=== PATIENT | male | born 1955 | race Caucasian/White ===

== ENCOUNTER 2016-09-02 11:31 | Inpatient (IN) | payer OTHER ==
[~2016-09-02] VITALS: Ht 182.9 cm; Wt 76.8 kg
[~2016-09-02 11:31] MED LIST: FLAG500T PO; GLIP5 PO; LEVA750T PO; LISI10 PO; PANT40IN3 PO
[2016-09-02 11:32] VITALS: BP 147/74; PULSE 93; RESP 17; TEMP 97.6; O2SAT 99
--- NOTE | 2016-09-02 13:17 | PD ---
HPI Chief Complaint: Abdominal Pain Time Seen by Provider: 13:12 Travel History International Travel<30 days: No Contact w/Intl Traveler<30days: No Traveled to known affect area: No History of Present Illness HPI 61-year-old male presents the emergency department with several day history of gradually increasing left lower quadrant pain and tenderness. Patient denies vomiting but has had nausea and he states he's been coughing up large amount of phlegm in the last couple days. Patient has no history of diverticulitis or bowel disease in the past. Patient is a long-term heavy smoker. Patient states he drinks every day but denies heavy drinking history. Patient states he has been eating, and has been moving his bowels. He denies diarrhea. Patient denies urinary symptoms or history of kidney stones. Patient has had chills but no fever. He denies chest pain or shortness of breath other than his normal baseline. Patient has a history of MRSA and is allergic to penicillin. PFSH Past Medical History Arthritis: No Asthma: Yes Autoimmune Disease: No Blood Disorders: No Anxiety: No Depression: No Heart Rhythm Problems: No Cancer: No Cardiovascular Problems: Yes (HTN ) High Cholesterol: Yes Chemotherapy: No Chest Pain: No Congestive Heart Failure: No COPD: Yes Cerebrovascular Accident: No Diabetes: Yes (GLIPIZIDE) Diminished Hearing: No Endocrine: Yes Gastrointestinal Disorders: Yes GERD: Yes Genitourinary: No Headaches: Yes Hiatal Hernia: No Hypertension: Yes Immune Disorder: No Implanted Vascular Access Dvce: Yes Kidney Stones: No Musculoskeletal: No Neurologic: No Psychiatric: No Reproductive: No Respiratory: Yes Immunizations Current: Yes Migraines: No Pancreatitis: Yes Pneumonia: Yes Radiation Therapy: No Renal Failure: No Seizures: No Sickle Cell Disease: No Sleep Apnea: No Thyroid Disease: No Ulcer: No Past Surgical History Abdominal Surgery: Yes ("STENT IN SPLEEN") AICD: No Arteriovenous Shunt: No Body Medical Devices: "STENT IN SPLEEN" Cardiac Surgery: No Ear Surgery: No Endocrine Surgery: No Eye Surgery: No Genitourinary Surgery: No Gynecologic Surgery: No Insulin Pump: No Joint Replacement: No Neurologic Surgery: No Oral Surgery: No Pacemaker: No Thoracic Surgery: No Other Surgery: Yes (BACK SURGERY 25 YEARS AGO) Social History Alcohol Use: Yes (3-4 DRINKS/DAY) Tobacco Use: Yes (10 CIGS/DAY) Substance Use: No Allergies-Medications (Allergen,Severity, Reaction): Coded Allergies: Penicillin (Verified Allergy, Severe, SWELLING, 09/02/16) *MDRO Multi-Drug Resistant Organism (Verified Adverse Reaction, Unknown, ) Hx MRSA Sputum 2006, Wounds 2003 MRSA PCR Screen negative 11/25/14 & 09/10/15. Cleared per Infection Control. Patient does not require isolation for hx of MRSA prior to 09/10/15. Reported Meds & Prescriptions Reported Meds & Active Scripts Active Reported Lisinopril 10 Mg Tab 10 Mg PO DAILY Glipizide 10 Mg Tab 10 Mg PO DAILY Take 30 minutes before a meal Review of Systems Except as stated in HPI: all other systems reviewed are Neg General / Constitutional: Positive: Chills, No: Fever Eyes: No: Visual changes HENT: No: Headaches Cardiovascular: No: Chest Pain or Discomfort Respiratory: Positive: Cough (chronic.), No: Shortness of Breath, Hemoptysis, Night Sweats, Pleuritic Pain Gastrointestinal: Positive: Nausea, Abdominal Pain (sharp left lower quadrant pain.), No: Vomiting, Diarrhea, Hematemesis, Hematochezia, Constipation, Loss of Appetite Genitourinary: No: Dysuria Musculoskeletal: No: Pain Skin: No Rash Neurologic: No: Weakness Psychiatric: No: Depression Endocrine: No: Polydipsia Hematologic/Lymphatic: No: Easy Bruising Physical Exam Narrative GENERAL: Patient appears stable and in mild to moderate pain but not septic. SKIN: Warm and dry. Normal color. Normal turgor. HEAD: Atraumatic. Normocephalic. EYES: Pupils equal and round. No scleral icterus. No injection or drainage. ENT: No nasal bleeding or discharge. Mucous membranes pink and moist. Pharynx is normal. Airway is patent. NECK: Trachea midline. Supple and nontender. CARDIOVASCULAR: Regular rate and rhythm. RESPIRATORY: No accessory muscle use. Clear to auscultation. Breath sounds equal bilaterally. GASTROINTESTINAL: Abdomen soft, patient has very specific tenderness in the left lower quadrant with guarding and rebound, nondistended. No CVA tenderness. Patient has enlarged liver and spleen by palpation. MUSCULOSKELETAL: Extremities with moderate clubbing from long cigarette abuse, no cyanosis, or edema. No obvious deformities. NEUROLOGICAL: Awake and alert. No obvious cranial nerve deficits. Motor grossly within normal limits. Five out of 5 muscle strength in the arms and legs. Normal speech. PSYCHIATRIC: Appropriate mood and affect; insight and judgment normal. Data Data Last Documented VS Vital Signs Date Time Temp Pulse Resp B/P Pulse Ox O2 Delivery O2 Flow Rate FiO2 09/02/16 15:35 18 96 Room Air 09/02/16 15:01 97.8 84 190/81 Orders Complete Blood Count With Diff (09/02/16 13:17) Comprehensive Metabolic Panel (09/02/16 13:17) Lipase (09/02/16 13:17) Lactic Acid (09/02/16 13:17) Prothrombin Time / Inr (Pt) (09/02/16 13:17) Act Partial Throm Time (Ptt) (09/02/16 13:17) Urinalysis - C+S If Indicated (09/02/16 13:17) Ct Abd/Pel W Iv Contrast(Rout) (09/02/16 13:17) NPO (09/02/16 13:17) Chest, Single Ap (09/02/16 13:17) Acetamin-Hydrocod 325-5 Mg ([place] 5-325 (09/02/16 13:30) Ondansetron Odt (Zofran Odt) (09/02/16 13:30) Oral Contrast - Adult (09/02/16 13:25) Ketorolac Inj (Toradol Inj) (09/02/16 13:45) Diatrizoate Liq ( [place]astro[place] Liq) (09/02/16 13:35) Ondansetron Inj (Zofran Inj) (09/02/16 15:15) Morphine Inj (Morphine Inj) (09/02/16 15:15) Morphine Inj (Morphine Inj) (09/02/16 15:15) Ondansetron Inj (Zofran Inj) (09/02/16 15:15) Sodium Chloride 0.9% Flush (Ns Flush) (09/02/16 15:15) Electrocardiogram (09/02/16 15:08) Iohexol 350 Inj (Omnipaque 350 Inj) (09/02/16 15:57) Labs Laboratory Tests Test 09/02/16 13:41 White Blood Count 15.7 TH/MM3 Red Blood Count 5.60 MIL/MM3 Hemoglobin 16.5 GM/DL Hematocrit 48.9 % Mean Corpuscular Volume 87.4 FL Mean Corpuscular Hemoglobin 29.5 PG Mean Corpuscular Hemoglobin 33.8 % Concent Red Cell Distribution Width 14.5 % Platelet Count 334 TH/MM3 Mean Platelet Volume 8.2 FL Neutrophils (%) (Auto) 59.6 % Lymphocytes (%) (Auto) 19.3 % Monocytes (%) (Auto) 9.3 % Eosinophils (%) (Auto) 10.8 % Basophils (%) (Auto) 1.0 % Neutrophils # (Auto) 9.4 TH/MM3 Lymphocytes # (Auto) 3.0 TH/MM3 Monocytes # (Auto) 1.5 TH/MM3 Eosinophils # (Auto) 1.7 TH/MM3 Basophils # (Auto) 0.2 TH/MM3 CBC Comment DIFF FINAL Differential Comment Prothrombin Time 12.4 SEC Prothromb Time International 1.1 RATIO Ratio Activated Partial 29.4 SEC Thromboplast Time Sodium Level 129 MEQ/L Potassium Level 4.5 MEQ/L Chloride Level 90 MEQ/L Carbon Dioxide Level 30.4 MEQ/L Anion Gap 9 MEQ/L Blood Urea Nitrogen 4 MG/DL Creatinine 0.45 MG/DL Estimat Glomerular Filtration 192 ML/MIN Rate Random Glucose 118 MG/DL Lactic Acid Level 1.0 mmol/L Calcium Level 8.8 MG/DL Total Bilirubin 0.7 MG/DL Aspartate Amino Transf 97 U/L (AST/SGOT) Alanine Aminotransferase 75 U/L (ALT/SGPT) Alkaline Phosphatase 128 U/L Total Protein 7.2 GM/DL Albumin 3.1 GM/DL Lipase 69 U/L [facility] Medical Decision Making Medical Screen Exam Complete: Yes Emergency Medical Condition: Yes Differential Diagnosis Nausea. Abdominal pain. Left lower quadrant pain. Diverticulitis. Narrative Course Patient is seen in the triage area and appears medically stable at this time. Labs ordered including CBC, CMP, lipase, lactic acid, and urinalysis. Patient is given Zofran or milligrams ODT by mouth. Patient is given Lortab 5/[address] of the abdomen with contrast is ordered. Patient is awaiting med bed placement for IV placement. Medical pod practitioner will determine final patient disposition. Condition: Stable John Story Sep 02, 2016 13:17
[2016-09-02] MEDS: ACETAMINOPHEN/HYDROcodone 325 MG/5 MG TAB PO ONE ×2 (13:26→13:28)
[2016-09-02] MEDS ORDERED: ONDANSETRON ODT 4 MG TAB PO ONE (13:30)
[2016-09-02] MEDS ORDERED: DIATRIZOATE MEGLUM/DIATRIZOATE SOD 9 ML CUP ONE (13:35)
[2016-09-02] MEDS ORDERED: KETOROLAC TROMETHAMINE 60 MG/2 ML (IM) VIAL IM ONE (13:45)
[2016-09-02 14:29] LABS: AUTOMATED NEUTROPHIL # 9.4 TH/MM3 (1.8-7.7); BASOPHIL # 0.2 TH/MM3 (0-0.2); EOSINOPHIL # 1.7 TH/MM3 (0-0.4); EOSINOPHIL % 10.8 % (0.0-4.0); HEMATOCRIT 48.9 % (39.0-51.0); HEMO FLAGS DIFF FINAL; LYMPH % 19.3 % (9.0-44.0); MEAN CELL VOLUME 87.4 FL (80.0-100.0); MEAN CORPUSCULAR HEMOGLOBIN 29.5 PG (27.0-34.0); MEAN CORPUSCULAR HGB CONC 33.8 % (32.0-36.0); MONO % 9.3 % (0.0-8.0); NEUT % 59.6 % (16.0-70.0); PLATELET COUNT 334 TH/MM3 (150-450); RED CELL DISTRIBUTION WIDTH 14.5 % (11.6-17.2); WHITE BLOOD COUNT 15.7 TH/MM3 (4.0-11.0)
[2016-09-02 14:39] LABS: APTT (PATIENT) 29.4 SEC (24.3-30.1); INTERNATIONAL NORMALIZED RATIO 1.1 RATIO; PROTHROMBIN TIME - PATIENT 12.4 SEC (9.8-11.6)
[2016-09-02 14:50] LABS: ALKALINE PHOSPHATASE 128 U/L (45-117); TOTAL BILIRUBIN ADULT 0.7 MG/DL (0.2-1.0)
[2016-09-02 15:01] VITALS: BP 190/81; PULSE 84; RESP 18; TEMP 97.8; O2SAT 96
[2016-09-02 15:01] LABS: ALT (GPT) 75 U/L (12-78); ANION GAP 9 MEQ/L (5-15); AST (GOT) 97 U/L (15-37); BICARBONATE 30.4 MEQ/L (21.0-32.0); BLOOD UREA NITROGEN 4 MG/DL (7-18); CHLORIDE 90 MEQ/L (98-107); GLOMERULAR FILTRATION RATE 192 ML/MIN (>89); POTASSIUM 4.5 MEQ/L (3.5-5.1); SODIUM (NA) 129 MEQ/L (136-145)
[2016-09-02] MEDS ORDERED: GLIP10TA6 PO (15:01)
[2016-09-02] MEDS ORDERED: LISI10TA3 PO (15:01)
[2016-09-02] MEDS ORDERED: ONDANSETRON HCL 4 MG/2 ML VIAL IV PUSH ONE (15:15)
[2016-09-02] MEDS ORDERED: SODIUM CHLORIDE 0.9% FLUSH 5 ML FLUSH IVF PRN (15:15)
[2016-09-02] MEDS ORDERED: MORPHINE SULFATE 4 MG/ML INJ IV PUSH ONE ×2 (15:15)
[2016-09-02] MEDS ORDERED: ONDANSETRON HCL 4 MG/2 ML VIAL IVP ONE (15:15)
--- NOTE | 2016-09-02 15:18 | RADRPT ---
EXAM DATE/TIME: 09/02/2016 13:24 [facility] COMPARISON: CHEST SINGLE AP, September 09, 2015, 5:01. INDICATIONS : Cough. MEDICAL HISTORY : Hypertension. Hypercholesterolemia. Chronic obstructive pulmonary disease. Pancreatitis. Diabetes . GERD. SURGICAL HISTORY : None. ENCOUNTER: Initial ACUITY: 1 week PAIN SCORE: 5/10 LOCATION: Bilateral lower quadrant abdomen FINDINGS: Pleural-parenchymal scarring is evident in the right apex and appears unchanged. Lungs are hyperinflated. There is no evidence of acute airspace disease. Heart and mediastinal structures are stable. The pulmonary arteries appear prominent. CONCLUSION: No evidence of acute airspace disease. COPD. Stable right apical pleural-parenchymal scarring. Albino Bravo MD on September 02, 2016 at 15:15 Board Certified Radiologist. This report was verified electronically.
--- NOTE | 2016-09-02 15:28 | PD ---
Physical Exam Date Seen by Provider: Sep 02, 2016 Data Data Last Documented VS Vital Signs Date Time Temp Pulse Resp B/P Pulse Ox O2 Delivery O2 Flow Rate FiO2 09/02/16 15:01 97.8 84 18 190/81 96 Room Air Orders Complete Blood Count With Diff (09/02/16 13:17) Comprehensive Metabolic Panel (09/02/16 13:17) Lipase (09/02/16 13:17) Lactic Acid (09/02/16 13:17) Prothrombin Time / Inr (Pt) (09/02/16 13:17) Act Partial Throm Time (Ptt) (09/02/16 13:17) Urinalysis - C+S If Indicated (09/02/16 13:17) Ct Abd/Pel W Iv Contrast(Rout) (09/02/16 13:17) NPO (09/02/16 13:17) Chest, Single Ap (09/02/16 13:17) Acetamin-Hydrocod 325-5 Mg ([place] 5-325 (09/02/16 13:30) Ondansetron Odt (Zofran Odt) (09/02/16 13:30) Oral Contrast - Adult (09/02/16 13:25) Ketorolac Inj (Toradol Inj) (09/02/16 13:45) Diatrizoate Liq ( Gastroview Liq) (09/02/16 13:35) Ondansetron Inj (Zofran Inj) (09/02/16 15:15) Morphine Inj (Morphine Inj) (09/02/16 15:15) Morphine Inj (Morphine Inj) (09/02/16 15:15) Ondansetron Inj (Zofran Inj) (09/02/16 15:15) Sodium Chloride 0.9% Flush (Ns Flush) (09/02/16 15:15) Electrocardiogram (09/02/16 15:08) Labs Laboratory Tests Test 09/02/16 13:41 White Blood Count 15.7 TH/MM3 Red Blood Count 5.60 MIL/MM3 Hemoglobin 16.5 GM/DL Hematocrit 48.9 % Mean Corpuscular Volume 87.4 FL Mean Corpuscular Hemoglobin 29.5 PG Mean Corpuscular Hemoglobin 33.8 % Concent Red Cell Distribution Width 14.5 % Platelet Count 334 TH/MM3 Mean Platelet Volume 8.2 FL Neutrophils (%) (Auto) 59.6 % Lymphocytes (%) (Auto) 19.3 % Monocytes (%) (Auto) 9.3 % Eosinophils (%) (Auto) 10.8 % Basophils (%) (Auto) 1.0 % Neutrophils # (Auto) 9.4 TH/MM3 Lymphocytes # (Auto) 3.0 TH/MM3 Monocytes # (Auto) 1.5 TH/MM3 Eosinophils # (Auto) 1.7 TH/MM3 Basophils # (Auto) 0.2 TH/MM3 CBC Comment DIFF FINAL Differential Comment Prothrombin Time 12.4 SEC Prothromb Time International 1.1 RATIO Ratio Activated Partial 29.4 SEC Thromboplast Time Sodium Level 129 MEQ/L Potassium Level 4.5 MEQ/L Chloride Level 90 MEQ/L Carbon Dioxide Level 30.4 MEQ/L Anion Gap 9 MEQ/L Blood Urea Nitrogen 4 MG/DL Creatinine 0.45 MG/DL Estimat Glomerular Filtration 192 ML/MIN Rate Random Glucose 118 MG/DL Lactic Acid Level 1.0 mmol/L Calcium Level 8.8 MG/DL Total Bilirubin 0.7 MG/DL Aspartate Amino Transf 97 U/L (AST/SGOT) Alanine Aminotransferase 75 U/L (ALT/SGPT) Alkaline Phosphatase 128 U/L Total Protein 7.2 GM/DL Albumin 3.1 GM/DL Lipase 69 U/L MDM Supervised Visit with KEMAR: Yes Narrative Course I, Dr. Mesa, have reviewed the advance practice practitioner's documentation and am in agreement, met with the patient face to face, made the diagnosis, and the medical decision making was done by me. *My assessment and Findings: Patient presents with lower abdominal pain. On exam he is tender in the left lower quadrant. Condition: Stable Yazmin Mesa MD Sep 02, 2016 15:28
[2016-09-02 15:35] VITALS: RESP 18; O2SAT 96
[2016-09-02] MEDS ORDERED: IOHEXOL 350 MG/ML 10 ML VIAL (for RAD DIAG) IV ONE (15:57)
[2016-09-02 16:19] LABS: BLOOD, URINE NEG (NEG); GLUCOSE,URINE NEG (NEG); KETONE, URINE NEG (NEG); NITRITE,URINE NEG (NEG); URINE COLOR YELLOW (YELLW/STRAW)
--- NOTE | 2016-09-02 16:30 | RADRPT ---
EXAM DATE/TIME: 09/02/2016 15:52 [facility] COMPARISON: CT ABDOMEN & PELVIS W CONTRAST, March 28, 2016, 0:53. INDICATIONS : Abdominal pain, left lower quadrant. Nausea. IV CONTRAST: 100 cc Omnipaque 350 (iohexol) IV ORAL CONTRAST: Prescribed oral contrast ingested. RADIATION DOSE: 8.62 CTDIvol (mGy) MEDICAL HISTORY : Hypertension. Chronic obstructive pulmonary disease. Pancreatitis.Back surgery. SURGICAL HISTORY : Stent placed in spleen. ENCOUNTER: Initial ACUITY: 2 days PAIN SCALE: 7/10 LOCATION: Left lower quadrant TECHNIQUE: Volumetric scanning of the abdomen and pelvis was performed. Using automated exposure control and ad justment of the mA and/or kV according to patient size, radiation dose was kept as low as reasonably achievable to obtain optimal diagnostic quality images. FINDINGS: LOWER LUNGS: The visualized lower lungs are clear. LIVER: Homogeneous density without lesion. There is no dilation of the biliary tree. Numerous small calcifi ed gallstones are noted. There is no evidence of gallbladder wall thickening or pericholecystic fluid . SPLEEN: Normal size without lesion. PANCREAS: Flocculent calcification is present throughout the pancreas. There is no evidence of discrete mass or active inflammatory pancreatic disease. KIDNEYS: Normal in size and shape. There is no mass, stone or hydronephrosis. ADRENAL GLANDS: Within normal limits. VASCULAR: Calcific atherosclerotic vascular disease is identified. There is significant calcification at the or igin of the superior mesenteric artery. BOWEL/MESENTERY: A localized small bowel ileus with wall thickening and sarina-intestinal inflammation is identified the left midabdomen. The distal small bowel is relatively normal in caliber. Stool and gas is present th roughout the colon. Inflammatory changes involve the descending colon but do not appear to be origina ting from that segment. There is no evidence of free air or or loculated fluid collections. Free flui d is present in the pelvis. ABDOMINAL WALL: Within normal limits. RETROPERITONEUM: There is no lymphadenopathy. BLADDER: No wall thickening or mass. REPRODUCTIVE: Within normal limits. INGUINAL: Mildly prominent nonspecific appearing lymph nodes are seen in the inguinal regions. MUSCULOSKELETAL: No acute abnormality. CONCLUSION: Proximal small bowel ileus with significant intestinal and sarina-intestinal inflammation characteristi c of acute enteritis. Ischemic bowel cannot be excluded. Cholelithiasis. Pancreatic calcification characteristic of chronic pancreatitis. Significant atherosclerotic vascular disease especially involving the origin of the SMA. Free fluid in the pelvis without evidence of loculated collections to suggest abscess formation. Albino Bravo MD on September 02, 2016 at 16:20 Board Certified Radiologist. This report was verified electronically.
[2016-09-02 16:33] LABS: COMMENT (UR) CULT NOT INDICATED; CULTURE IF INDICATED CULT NOT INDICATED
[2016-09-02 16:34] VITALS: BP 136/72; PULSE 86; RESP 18; O2SAT 96
--- NOTE | 2016-09-02 16:44 | PD ---
Physical Exam Time Seen by Provider: 16:44 Narrative Work up initiated in triage. In short, the pt is a 61 year old male with history of worsening LUQ and LLQ pain over the last several days. States he becomes nauseous only if he does not eat. Denies fever or chills. No change in bowel patterns. Pt is diabetic, with history of COPD, CAD, HTN. Continues to smoke at least a pack of tobacco cigarettes daily. Pt is a constant now 10/10. No chest pain or shortness of breath. No other symptoms to report. Data Data Last Documented VS Vital Signs Date Time Temp Pulse Resp B/P Pulse Ox O2 Delivery O2 Flow Rate FiO2 09/02/16 16:34 86 18 136/72 96 Room Air 09/02/16 15:01 97.8 Orders Complete Blood Count With Diff (09/02/16 13:17) Comprehensive Metabolic Panel (09/02/16 13:17) Lipase (09/02/16 13:17) Lactic Acid (09/02/16 13:17) Prothrombin Time / Inr (Pt) (09/02/16 13:17) Act Partial Throm Time (Ptt) (09/02/16 13:17) Urinalysis - C+S If Indicated (09/02/16 13:17) Ct Abd/Pel W Iv Contrast(Rout) (09/02/16 13:17) NPO (09/02/16 13:17) Chest, Single Ap (09/02/16 13:17) Acetamin-Hydrocod 325-5 Mg ([place] 5-325 (09/02/16 13:30) Ondansetron Odt (Zofran Odt) (09/02/16 13:30) Oral Contrast - Adult (09/02/16 13:25) Ketorolac Inj (Toradol Inj) (09/02/16 13:45) Diatrizoate Liq ( Gastrobeatriz Liq) (09/02/16 13:35) Ondansetron Inj (Zofran Inj) (09/02/16 15:15) Morphine Inj (Morphine Inj) (09/02/16 15:15) Morphine Inj (Morphine Inj) (09/02/16 15:15) Ondansetron Inj (Zofran Inj) (09/02/16 15:15) Sodium Chloride 0.9% Flush (Ns Flush) (09/02/16 15:15) Electrocardiogram (09/02/16 15:08) Iohexol 350 Inj (Omnipaque 350 Inj) (09/02/16 15:57) Ciprofloxacin 400 Mg Premix (Cipro 400 M (09/02/16 16:45) Metronidazole 500 Mg Inj (Flagyl 500 Mg (09/02/16 16:45) Blood Culture (09/02/16 16:41) Labs Laboratory Tests Test 09/02/16 09/02/16 13:41 15:16 White Blood Count 15.7 TH/MM3 Red Blood Count 5.60 MIL/MM3 Hemoglobin 16.5 GM/DL Hematocrit 48.9 % Mean Corpuscular Volume 87.4 FL Mean Corpuscular Hemoglobin 29.5 PG Mean Corpuscular Hemoglobin 33.8 % Concent Red Cell Distribution Width 14.5 % Platelet Count 334 TH/MM3 Mean Platelet Volume 8.2 FL Neutrophils (%) (Auto) 59.6 % Lymphocytes (%) (Auto) 19.3 % Monocytes (%) (Auto) 9.3 % Eosinophils (%) (Auto) 10.8 % Basophils (%) (Auto) 1.0 % Neutrophils # (Auto) 9.4 TH/MM3 Lymphocytes # (Auto) 3.0 TH/MM3 Monocytes # (Auto) 1.5 TH/MM3 Eosinophils # (Auto) 1.7 TH/MM3 Basophils # (Auto) 0.2 TH/MM3 CBC Comment DIFF FINAL Differential Comment Prothrombin Time 12.4 SEC Prothromb Time International 1.1 RATIO Ratio Activated Partial 29.4 SEC Thromboplast Time Sodium Level 129 MEQ/L Potassium Level 4.5 MEQ/L Chloride Level 90 MEQ/L Carbon Dioxide Level 30.4 MEQ/L Anion Gap 9 MEQ/L Blood Urea Nitrogen 4 MG/DL Creatinine 0.45 MG/DL Estimat Glomerular Filtration 192 ML/MIN Rate Random Glucose 118 MG/DL Lactic Acid Level 1.0 mmol/L Calcium Level 8.8 MG/DL Total Bilirubin 0.7 MG/DL Aspartate Amino Transf 97 U/L (AST/SGOT) Alanine Aminotransferase 75 U/L (ALT/SGPT) Alkaline Phosphatase 128 U/L Total Protein 7.2 GM/DL Albumin 3.1 GM/DL Lipase 69 U/L Urine Color YELLOW Urine Turbidity CLEAR Urine pH 6.0 Urine Specific [place] 1.005 Urine Protein NEG mg/dL Urine Glucose (UA) NEG mg/dL Urine Ketones NEG mg/dL Urine Occult Blood NEG Urine Nitrite NEG Urine Bilirubin NEG Urine Urobilinogen LESS THAN 2.0 MG/DL Urine Leukocyte Esterase NEG Urine WBC LESS THAN 1 /hpf Microscopic Urinalysis Comment CULT NOT INDICATED MDM Medical Record Reviewed: Yes Supervised Visit with KEMAR: No Differential Diagnosis pancreatitis versus cholecystitis versus renal calculi versus gastritis versus enteritis Narrative Course 61 year old presents to ED for evaluation of worsening LLQ and LUQ abdominal pain. Pt has significant tenderness to palpation LUQ and LLQ. Mild guarding; no rebound tenderness. Normoactive bowel sounds. He seems of leukocytosis of 15.7. CMP is with hyponatremia 129, lipase is 69. Lactic acid is 1.0. Urinalysis is unremarkable. Last Impressions Chest X-Ray 09/02/[id number] Signed Impressions: Service Date/Time: August 13:24 - CONCLUSION: No evidence of acute airspace disease. COPD. Stable right apical pleural-parenchymal scarring. Albino Bravo MD Abdomen/Pelvis CT 09/02/161316 Signed Impressions: Service Date/Time: August 15:52 - CONCLUSION: Proximal small bowel ileus with significant intestinal and sarina-intestinal inflammation characteristic of acute enteritis. Ischemic bowel cannot be excluded. Cholelithiasis. Pancreatic calcification characteristic of chronic pancreatitis. Significant atherosclerotic vascular disease especially involving the origin of the SMA. Free fluid in the pelvis without evidence of loculated collections to suggest abscess formation. Albino Bravo MD I have discussed the and finally with my attending physician . Patient will be admitted to the [facility]. Cultures are drawn and he has given IV Cipro and Flagyl here in the emergency department. Patient has been given IV contrast with CT today; further evaluation of ischemic bowel will have to be delayed due to this. Diagnosis Primary Impression: Enteritis Additional Impressions: Ileus Hyponatremia Leukocytosis Qualified Code: D72.829 - Leukocytosis, unspecified type Admitting Information Admitting Physician Requests: Admit Condition: Stable Gem Hylton Sep 02, 2016 16:44
[2016-09-02] MEDS ORDERED: CIPROFLOXACIN 400 MG PREMIX 200 ML IV ONE (16:45)
[2016-09-02] MEDS ORDERED: metroNIDAZOLE 500 MG INJ 100 ML IV ONE (16:45)
[2016-09-02] MEDS ORDERED: NALOXONE HCL 0.4 MG/ML AMP IV PRN (17:45)
[2016-09-02] MEDS ORDERED: SODIUM CHLORIDE 0.9% FLUSH 5 ML FLUSH FLUSH PRN (17:45)
[2016-09-02] MEDS ORDERED: ACETAMINOPHEN 325 MG TAB PO PRN (17:45)
[2016-09-02] MEDS ORDERED: MAGNESIUM HYDROXIDE SUSP 30 ML CUP PO PRN (17:45)
[2016-09-02 17:55] VITALS: BP 157/90; PULSE 127; RESP 20; O2SAT 96
[2016-09-02] MEDS: ENOXAPARIN SODIUM 40 MG/0.4 ML SYRINGE SQ SCH (18:02)
[2016-09-02] MEDS: SODIUM CHLOR 0.9% 1000 ML INJ 1,000 ML IV SCH (18:05)
--- NOTE | 2016-09-02 18:20 | HHI.HP ---
[facility] Service [facility] Primary Care Physician [facility] Admission Diagnosis intractable abdominal pain; acute enteritis; hyponatremia; Diagnoses: Chief Complaint: Abdominal pain Travel History International Travel<30 Days: No Contact w/Intl Traveler <30 Da: No Traveled to Known Affected Are: No History of Present Illness This is a 61-year-old male with a past medical history of chronic pancreatitis, hypertension, type 2 diabetes who presented with abdominal pain that started Tuesday. Patient stated that abdominal pain is located in the left lower quadrant and it was very mild. He said over the weekend has worsened in intensity and is constant. Patient stated that he has some nausea that resolves or improves with food. Deny any emesis. Patient also complains of a chronic productive cough that has been the same. He denies any diarrhea or constipation and see that his stools are normal. Patient also denies any fever or chills. Review of Systems Constitutional: DENIES: Diaphoretic episodes, Fatigue, Fever, Weight gain, Weight loss, Chills, Dizziness, Change in appetite, Night Sweats Endocrine: DENIES: Heat/cold intolerance, Polydipsia, Polyuria, Polyphagia Eyes: DENIES: Blurred vision, Diplopia, Eye inflammation, Eye pain, Vision loss , Photosensitivity, Double Vision Ears, nose, mouth, throat: DENIES: Tinnitus, Hearing loss, Vertigo, Nasal discharge, Oral lesions, Throat pain, Hoarseness, Ear Pain, Running Nose, Epistaxis, Sinus Pain, Toothache, Odynophagia Respiratory: DENIES: Apneas, Cough, Snoring, Wheezing, Hemoptysis, Sputum production, Shortness of breath Cardiovascular: DENIES: Chest pain, Palpitations, Syncope, Dyspnea on Exertion , PND, Lower Extremity Edema, Orthopnea, Claudication Gastrointestinal: COMPLAINS OF: Abdominal pain, DENIES: Black stools, Bloody stools, Constipation, Diarrhea, Nausea, Vomiting, Difficulty Swallowing, Anorexia Genitourinary: DENIES: Sexual dysfunction, Urinary frequency, Urinary incontinence, Urgency, Hematuria, Dysuria, Nocturia, Penile Discharge, Testicular Pain, Testicular Swelling Musculoskeletal: DENIES: Joint pain, Muscle aches, Stiffness, Joint Swelling, Back pain, Neck pain Integumentary: DENIES: Abnormal pigmentation, Nail changes, Pruritus, Rash Hematologic/lymphatic: DENIES: Bruising, Lymphadenopathy Immunologic/allergic: DENIES: Eczema, Urticaria Neurologic: DENIES: Abnormal gait, Headache, Localized weakness, Paresthesias, Seizures, Speech Problems, Tremor, Poor Balance Psychiatric: DENIES: Anxiety, Confusion, Mood changes, Depression, Hallucinations, Agitation, Suicidal Ideation, Homicidal Ideation, Delusions Past Family Social History Past Medical History Type 2 diabetes, hypertension, chronic pancreatitis, 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 Cleared per Infection Control. Patient does not require isolation for hx of MRSA prior to 09/10/15. Active Ordered Medications Current Medications Acetaminophen/ Hydrocodone Bitart ([place] 5-325 Mg) 1 tab ONCE ONCE PO ; Start 09/02/16 at 13:30; Stop 09/02/16 at 13:31; Status DC Ondansetron HCl (Zofran Odt) 4 mg ONCE ONCE PO Last administered on 09/02/16 13:26; Start 09/02/16 at 13:30; Stop 09/02/16 at 13:31; Status DC Ketorolac Tromethamine (Toradol Inj) 60 mg ONCE ONCE IM Last administered on 13:37; Start 09/02/16 at 13:45; Stop 09/02/16 at 13:46; Status DC Diatrizoate Meglum/ Diatrizoate Sod ( Gastrobeatriz Liq) 18 ml STK-MED ONCE .ROUTE Last administered on 09/02/16 13:37; Start 09/02/16 at 13:35; Stop at 13:36; Status DC Ondansetron HCl (Zofran Inj) 4 mg ONCE ONCE IV PUSH ; Start 09/02/16 at 15:15; Stop 09/02/16 at 15:15; Status DC Morphine Sulfate (Morphine Inj) 4 mg ONCE ONCE IV PUSH Last administered on 15:20; Start 09/02/16 at 15:15; Stop 09/02/16 at 15:16; Status DC Morphine Sulfate (Morphine Inj) 4 mg ONCE ONCE IV PUSH ; Start 09/02/16 at 15:15 ; Stop 09/02/16 at 15:15; Status DC Ondansetron HCl (Zofran Inj) 4 mg ONCE ONCE IVP ; Start 09/02/16 at 15:15; Stop 09/02/16 at 15:15; Status DC IV Flush (NS Flush) 2 ml UNSCH PRN IVF FLUSH AFTER USING IV ACCESS Last administered on 09/02/16 15:20; Start 09/02/16 at 15:15; Stop 09/02/16 at 18:03; Status DC Iohexol 100 ml 100 ml STK-MED ONCE IV Last administered on 09/02/16 15:57; Start 09/02/16 at 15:57; Stop 09/02/16 at 15:58; Status DC Ciprofloxacin/ Dextrose 200 ml @ 200 mls/hr ONCE ONCE IV Last administered on 09/02/16 16:48; Start 09/02/16 at 16:45; Stop 09/02/16 at 17:44; Status DC Metronidazole 100 ml @ 100 mls/hr ONCE ONCE IV Last administered on 09/02/16 16:48; Start 09/02/16 at 16:45; Stop 09/02/16 at 17:44; Status DC Sodium Chloride (NS 1000 ml Inj) 1,000 ml @ 100 mls/hr Q10H IV ; Start 09/02/16 at 18:00 IV Flush (NS Flush) 2 ml UNSCH PRN FLUSH FLUSH AFTER USING IV ACCESS; Start 09/02/16 at 17:45 IV Flush (NS Flush) 2 ml BID FLUSH ; Start 09/02/16 at 21:00 Acetaminophen (Tylenol) 650 mg Q4H PRN PO TEMP > 100.4; Start 09/02/16 at 17:45 Ondansetron HCl (Zofran Inj) 4 mg Q6H PRN IVP NAUSEA OR VOMITING; Start at 17:45 Magnesium Hydroxide (Milk Of Magnjack Liq) 30 ml Q12H PRN PO CONSTIPATION; Start 09/02/16 at 17:45 Enoxaparin Sodium (Lovenox Inj) 40 mg Q24H SQ Last administered on 09/02/16t 18: 02; Start 09/02/16 at 17:45 Naloxone HCl 0.4 mg 0.4 mg UNSCH PRN IV SEE LABEL COMMENTS; Start 09/02/16 at 17 :45 Ciprofloxacin/ Dextrose 200 ml @ 200 mls/hr Q12H IV ; Start 09/03/16 at 04:00 Metronidazole (Flagyl 500 Mg Inj) 100 ml @ 100 mls/hr Q8H IV ; Start 09/02/16 at 23:00 Family History Mother from [place] at the age of forty-nine. Social History Positive tobacco use. Occasional alcohol use. Denies any recreational drug use. Physical Exam Vital Signs Vital Signs Date Time Temp Pulse Resp B/P Pulse Ox O2 Delivery O2 Flow Rate FiO2 09/02/16 17:55 127 20 157/90 96 Nasal Cannula 3 09/02/16 16:34 86 18 136/72 96 Room Air 09/02/16 15:35 18 96 Room Air 09/02/16 15:25 17 09/02/16 15:01 97.8 84 18 190/81 96 Room Air 09/02/16 14:58 17 09/02/16 11:32 97.6 93 17 147/74 99 Physical Exam GENERAL: This is a well-nourished, well-developed patient, in no apparent distress. SKIN: No rashes, ecchymoses or lesions. Cool and dry. HEAD: Atraumatic. Normocephalic. No temporal or scalp tenderness. EYES: Pupils equal round and reactive. Extraocular motions intact. No scleral icterus. No injection or drainage. ENT: Nose without bleeding, purulent drainage or septal hematoma. Throat without erythema, tonsillar hypertrophy or exudate. Uvula midline. Airway patent. NECK: Trachea midline. No JVD or lymphadenopathy. Supple, nontender, no meningeal signs. CARDIOVASCULAR: Regular rate and rhythm without murmurs, gallops, or rubs. RESPIRATORY: Clear to auscultation. Breath sounds equal bilaterally. No wheezes , rales, or rhonchi. GASTROINTESTINAL: Abdomen soft, nondistended. No hepato-splenomegaly, or palpable masses. No guarding. Positive tenderness to palpation left lower quadrant. Negative for any peritoneal signs. MUSCULOSKELETAL: Extremities without clubbing, cyanosis, or edema. No joint tenderness, effusion, or edema noted. No calf tenderness. Negative Homans sign bilaterally. NEUROLOGICAL: Awake and alert. Cranial nerves II through XII intact. Motor and sensory grossly within normal limits. Five out of 5 muscle strength in all muscle groups. Normal speech. Laboratory Laboratory Tests Test 09/02/16 09/02/16 13:41 15:16 White Blood Count 15.7 Red Blood Count 5.60 Hemoglobin 16.5 Hematocrit 48.9 Mean Corpuscular Volume 87.4 Mean Corpuscular Hemoglobin 29.5 Mean Corpuscular Hemoglobin 33.8 Concent Red Cell Distribution Width 14.5 Platelet Count 334 Mean Platelet Volume 8.2 Neutrophils (%) (Auto) 59.6 Lymphocytes (%) (Auto) 19.3 Monocytes (%) (Auto) 9.3 Eosinophils (%) (Auto) 10.8 Basophils (%) (Auto) 1.0 Neutrophils # (Auto) 9.4 Lymphocytes # (Auto) 3.0 Monocytes # (Auto) 1.5 Eosinophils # (Auto) 1.7 Basophils # (Auto) 0.2 CBC Comment DIFF FINAL Differential Comment Prothrombin Time 12.4 Prothromb Time International 1.1 Ratio Activated Partial 29.4 Thromboplast Time Sodium Level 129 Potassium Level 4.5 Chloride Level 90 Carbon Dioxide Level 30.4 Anion Gap 9 Blood Urea Nitrogen 4 Creatinine 0.45 Estimat Glomerular Filtration 192 Rate Random Glucose 118 Lactic Acid Level 1.0 Calcium Level 8.8 Total Bilirubin 0.7 Aspartate Amino Transf 97 (AST/SGOT) Alanine Aminotransferase 75 (ALT/SGPT) Alkaline Phosphatase 128 Total Protein 7.2 Albumin 3.1 Lipase 69 Urine Color YELLOW Urine Turbidity CLEAR Urine pH 6.0 Urine Specific [place] 1.005 Urine Protein NEG Urine Glucose (UA) NEG Urine Ketones NEG Urine Occult Blood NEG Urine Nitrite NEG Urine Bilirubin NEG Urine Urobilinogen LESS THAN 2.0 Urine Leukocyte Esterase NEG Urine WBC LESS THAN 1 Microscopic Urinalysis Comment CULT NOT INDICATED Date/Time Procedure Status Source Growth 09/02/16 16:40 Aerobic Blood Culture Received Blood Peripheral Pending 09/02/16 16:40 Anaerobic Blood Culture Received Blood Peripheral Pending Result Diagram: 09/02/16 1341 09/02/16 1341 Imaging Last Impressions Chest X-Ray 09/02/167 Signed Impressions: Service Date/Time: August 13:24 - CONCLUSION: No evidence of acute airspace disease. COPD. Stable right apical pleural-parenchymal scarring. Albino Bravo MD Abdomen/Pelvis CT 09/02/167 Signed Impressions: Service Date/Time: August 15:52 - CONCLUSION: Proximal small bowel ileus with significant intestinal and sarina-intestinal inflammation characteristic of acute enteritis. Ischemic bowel cannot be excluded. Cholelithiasis. Pancreatic calcification characteristic of chronic pancreatitis. Significant atherosclerotic vascular disease especially involving the origin of the SMA. Free fluid in the pelvis without evidence of loculated collections to suggest abscess formation. Albino Bravo MD Assessment and Plan Assessment and Plan 61-year-old male with acute abdominal pain Acute abdominal pain -CT scan showed possible enteritis versus ischemic bowel. -Patient was given Cipro and Flagyl will continue with current regimen. -Unable to obtain further imaged for possible ischemic bowel secondary to recent IV contrast use. Per radiologist needs to wait at least twenty-four hours. -We will monitor with serial abdominal exam, given IV fluids and pain control. -consult GI. Type 2 diabetes -We will hold glipizide and start on insulin sliding scale. -We'll also put patient on hypoglycemic protocol. Hyponatremia -Asymptomatic. -May be secondary to dehydration. -Continue to monitor sodium. Hypertension -Restart home medication. DVT prophylaxis -Lovenox Code Status full Discussed Condition With patient Physician Certification 2 Midnight Certification Type: Admission for Inpatient Services Order for Inpatient Services The services are ordered in accordance with Medicare regulations or non- Medicare payer requirements, as applicable. In the case of services not specified as inpatient-only, they are appropriately provided as inpatient services in accordance with the 2-midnight benchmark. Estimated LOS (days): 3 3 days is the estimated time the patient will need to remain in the hospital, assuming treatment plan goals are met and no additional complications. Post-Hospital Plan: Home Milady Saeed MD Sep 02, 2016 18:20
[2016-09-02] MEDS ORDERED: DEXTROSE 50% IN WATER 50 ML VIAL(D50) IV PUSH PRN (18:45)
[2016-09-02] MEDS ORDERED: GLUCAGON 1 MG/ML VIAL OTHER PRN (18:45)
[2016-09-02 20:19] VITALS: BP 136/74; PULSE 90; RESP 18; TEMP 96.3; O2SAT 92
[2016-09-02] MEDS: INSULIN ASPART SUPPLEMENTAL SCALE SQ SCH (20:25)
[2016-09-02] MEDS: SODIUM CHLORIDE 0.9% FLUSH 5 ML FLUSH FLUSH SCH (20:25)
[2016-09-03] MEDS ORDERED: MORPHINE SULFATE 4 MG/ML INJ IV PUSH PRN (00:30)
[2016-09-03 00:33] VITALS: BP 116/70; PULSE 83; RESP 18; TEMP 98.6; O2SAT 95
[2016-09-03] MEDS: MORPHINE SULFATE 4 MG/ML INJ IV PUSH PRN ×6 (00:37→20:51)
[2016-09-03] MEDS: metroNIDAZOLE 500 MG INJ 100 ML IV SCH ×4 (00:41→23:31)
[2016-09-03] MEDS ORDERED: KETOROLAC TROMETHAMINE 30 MG/ML (IVP) VIAL IV PUSH ONE (02:15)
[2016-09-03] MEDS: CIPROFLOXACIN 400 MG PREMIX 200 ML IV SCH ×2 (03:49→16:09)
[2016-09-03] MEDS: SODIUM CHLOR 0.9% 1000 ML INJ 1,000 ML IV SCH ×2 (03:53→12:57)
[2016-09-03 04:00] VITALS: BP 137/77; PULSE 83; RESP 18; TEMP 98.8; O2SAT 95
[2016-09-03] MEDS: INSULIN ASPART SUPPLEMENTAL SCALE SQ SCH ×4 (06:31→21:00)
[2016-09-03 08:00] VITALS: BP 110/67; PULSE 77; RESP 20; TEMP 98.1; O2SAT 91
[2016-09-03] MEDS: SODIUM CHLORIDE 0.9% FLUSH 5 ML FLUSH FLUSH SCH ×2 (09:00→20:55)
[2016-09-03] MEDS: LISINOPRIL 10 MG TAB PO SCH (09:23)
[2016-09-03] MEDS: ONDANSETRON HCL 4 MG/2 ML VIAL IVP PRN ×3 (09:25→20:50)
[2016-09-03 09:39] LABS: HEMATOCRIT 44.4 % (39.0-51.0); MEAN CELL VOLUME 88.8 FL (80.0-100.0); MEAN CORPUSCULAR HEMOGLOBIN 29.7 PG (27.0-34.0); MEAN CORPUSCULAR HGB CONC 33.4 % (32.0-36.0); PLATELET COUNT 297 TH/MM3 (150-450); REVIEW FLAG FINAL; WHITE BLOOD COUNT 13.5 TH/MM3 (4.0-11.0)
[2016-09-03 10:01] LABS: BICARBONATE 30.7 MEQ/L (21.0-32.0); POTASSIUM 4.4 MEQ/L (3.5-5.1)
--- NOTE | 2016-09-03 10:19 | PD.CONS ---
HPI History of Present Illness This is a 61 year old WM with chronic pancreatitis secondary to alcohol abuse, gallstones, choledocholithiasis s/p ERCP with sphincterotomy and balloon extraction (03/30/16), tobacco abuse, and diabetes mellitus who presented to the ER at [facility] [place] with LLQ abdominal pain that started on Tuesday, the pain was constant after onset and persisted which prompted him to come to the Er for further evaluation, this is constant, 5 on the scale from 0-10, no aggravating or alleviating factors. He had some nausea which is not unusual for him. Denies any vomiting, diarrhea, fever or chills. Pt denies any melena or BRBPR. or change in bowels. Patient has a history of chronic pancreatitis reportedly secondary to alcohol abuse. He states he has cut back and now he only drinks on the weekends, last alcohol beverage was on Tuesday. Pt had a CT Abd/pelvis at admission which noted Proximal small bowel ileus with significant intestinal and sarina-intestinal inflammation characteristic of acute enteritis. Ischemic bowel cannot be excluded. Cholelithiasis. Pancreatic calcification characteristic of chronic pancreatitis. Significant atherosclerotic vascular disease especially involving the origin of the SMA. Free fluid in the pelvis without evidence of loculated collections to suggest abscess formation. 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 Cleared per Infection Control. Patient does not require isolation for hx of MRSA prior to 09/10/15. Medications Current Medications Medications (Trade) Dose Ordered Sig/Alfred Route Start Time Stop Time Status Last Admin (NS 1000 ml Inj) 1,000 ml @ 100 mls/hr Q10H IV 09/02/16 18:00 09/03/16 03:53 (NS Flush) 2 ml UNSCH PRN FLUSH 09/02/16 17:45 (NS Flush) 2 ml BID FLUSH 09/02/16 21:00 (Tylenol) 650 mg Q4H PRN PO 09/02/16 17:45 (Zofran Inj) 4 mg Q6H PRN IVP 09/02/16 17:45 09/03/16 09:25 (Milk Of Magnesia Liq) 30 ml Q12H PRN PO 09/02/16 17:45 (Lovenox Inj) 40 mg Q24H SQ 09/02/16 17:45 09/02/16 18:02 Naloxone HCl 0.4 mg 0.4 mg UNSCH PRN IV 09/02/16 17:45 Ciprofloxacin/ Dextrose 200 ml @ 200 mls/hr Q12H IV 09/03/16 04:00 09/03/16 03:49 (Flagyl 500 Mg Inj) 100 ml @ 100 mls/hr Q8H IV 09/02/16 23:00 09/03/16 06:32 (Prinivil) 10 mg DAILY PO 09/03/16 09:00 09/03/16 09:23 (D50w (Vial) Inj) 25 ml UNSCH PRN IV PUSH 09/02/16 18:45 (Glucagon Inj) 1 mg UNSCH PRN OTHER 09/02/16 18:45 (Morphine Inj) 2 mg Q3H PRN IV PUSH 09/03/16 00:30 (Morphine Inj) 4 mg Q3H PRN IV PUSH 09/03/16 00:30 09/03/16 06:33 Family History Mother from [place] at the age of forty-nine. Social History Positive tobacco use. Occasional alcohol use. Denies any recreational drug use. (Simi Blair) Review of Systems Constitutional: COMPLAINS OF: Fatigue, DENIES: Weight loss, Chills Endocrine: DENIES: Polyuria Eyes: DENIES: Double Vision Ears, nose, mouth, throat: DENIES: Hoarseness Respiratory: DENIES: Shortness of breath Cardiovascular: DENIES: Lower Extremity Edema Gastrointestinal: COMPLAINS OF: Abdominal pain, Nausea, DENIES: Black stools, Bloody stools, Constipation, Diarrhea, Vomiting, Difficulty Swallowing, Anorexia , Odynophagia, Swelling of Abdomen, Heartburn, Hematemesis Genitourinary: DENIES: Hematuria Musculoskeletal: DENIES: Back pain Integumentary: DENIES: Jaundice Hematologic/lymphatic: DENIES: Bruising Immunologic/allergic: DENIES: Eczema Neurologic: DENIES: Abnormal gait Psychiatric: DENIES: Anxiety (Simi Blair) GI Exam Vitals I&O Vital Signs Date Time Temp Pulse Resp B/P Pulse Ox O2 Delivery O2 Flow Rate FiO2 09/03/16 08:00 98.1 77 20 110/67 91 09/03/16 04:00 98.8 83 18 137/77 95 09/03/16 00:33 98.6 83 18 116/70 95 09/02/16 20:19 96.3 90 18 136/74 92 09/02/16 17:55 127 20 157/90 96 Nasal Cannula 3 09/02/16 16:34 86 18 136/72 96 Room Air 09/02/16 15:35 18 96 Room Air 09/02/16 15:25 17 09/02/16 15:01 97.8 84 18 190/81 96 Room Air 09/02/16 14:58 17 09/02/16 11:32 97.6 93 17 147/74 99 I/O 09/02/16 09/02/16 09/02/16 09/03/16 09/03/16 09/03/16 07:00 15:00 23:00 07:00 15:00 23:00 Intake Total 350 ml 200 ml Output Total 1100 ml 300 ml Balance -750 ml -100 ml Intake Oral 350 ml 200 ml Output Urine Total 1100 ml 300 ml # Voids 1 # Bowel Movements 0 0 Imaging Last Impressions Chest X-Ray 09/02/[id number] Signed Impressions: Service Date/Time: August 13:24 - CONCLUSION: No evidence of acute airspace disease. COPD. Stable right apical pleural-parenchymal scarring. Albino Bravo MD Abdomen/Pelvis CT 09/02/[id number] Signed Impressions: Service Date/Time: August 15:52 - CONCLUSION: Proximal small bowel ileus with significant intestinal and sarina-intestinal inflammation characteristic of acute enteritis. Ischemic bowel cannot be excluded. Cholelithiasis. Pancreatic calcification characteristic of chronic pancreatitis. Significant atherosclerotic vascular disease especially involving the origin of the SMA. Free fluid in the pelvis without evidence of loculated collections to suggest abscess formation. Albino Bravo MD Laboratory Test 09/02/16 09/02/16 09/03/16 13:41 15:16 09:17 White Blood Count 15.7 TH/MM3 13.5 TH/MM3 Red Blood Count 5.60 MIL/MM3 5.00 MIL/MM3 Hemoglobin 16.5 GM/DL 14.8 GM/DL Hematocrit 48.9 % 44.4 % Mean Corpuscular Volume 87.4 FL 88.8 FL Mean Corpuscular Hemoglobin 29.5 PG 29.7 PG Mean Corpuscular Hemoglobin 33.8 % 33.4 % Concent Red Cell Distribution Width 14.5 % 14.0 % Platelet Count 334 TH/MM3 297 TH/MM3 Mean Platelet Volume 8.2 FL 7.9 FL Neutrophils (%) (Auto) 59.6 % Lymphocytes (%) (Auto) 19.3 % Monocytes (%) (Auto) 9.3 % Eosinophils (%) (Auto) 10.8 % Basophils (%) (Auto) 1.0 % Neutrophils # (Auto) 9.4 TH/MM3 Lymphocytes # (Auto) 3.0 TH/MM3 Monocytes # (Auto) 1.5 TH/MM3 Eosinophils # (Auto) 1.7 TH/MM3 Basophils # (Auto) 0.2 TH/MM3 CBC Comment DIFF FINAL Differential Comment Prothrombin Time 12.4 SEC Prothromb Time International 1.1 RATIO Ratio Activated Partial 29.4 SEC Thromboplast Time Sodium Level 129 MEQ/L Potassium Level 4.5 MEQ/L Chloride Level 90 MEQ/L Carbon Dioxide Level 30.4 MEQ/L Anion Gap 9 MEQ/L Blood Urea Nitrogen 4 MG/DL Creatinine 0.45 MG/DL Estimat Glomerular Filtration 192 ML/MIN Rate Random Glucose 118 MG/DL Lactic Acid Level 1.0 mmol/L Calcium Level 8.8 MG/DL Total Bilirubin 0.7 MG/DL Aspartate Amino Transf 97 U/L (AST/SGOT) Alanine Aminotransferase 75 U/L (ALT/SGPT) Alkaline Phosphatase 128 U/L Total Protein 7.2 GM/DL Albumin 3.1 GM/DL Lipase 69 U/L Urine Color YELLOW Urine Turbidity CLEAR Urine pH 6.0 Urine Specific [place] 1.005 Urine Protein NEG mg/dL Urine Glucose (UA) NEG mg/dL Urine Ketones NEG mg/dL Urine Occult Blood NEG Urine Nitrite NEG Urine Bilirubin NEG Urine Urobilinogen LESS THAN 2.0 MG/DL Urine Leukocyte Esterase NEG Urine WBC LESS THAN 1 /hpf Microscopic Urinalysis Comment CULT NOT INDICATED Date/Time Procedure Status Source Growth 09/02/16 16:40 Aerobic Blood Culture Received Blood Peripheral Pending 09/02/16 16:40 Anaerobic Blood Culture Received Blood Peripheral Pending Physical Examination HEENT: normocephalic; atraumatic; no jaundice. NECK: Neck is supple, no JVD, no lymphadenopathy. CHEST: Chest is clear to auscultation and percussion. CARDIAC: Regular rate and rhythm with no murmur gallop or rubs. ABDOMEN: Soft, nondistended, significant tenderness to touch; no hepatosplenomegaly; bowel sounds are present in all four quadrants. EXTREMITIES: No clubbing, cyanosis, or edema. SKIN: Rash to lower abdomen and upper extremities MEDICAL RECORDS ADMINISTRATOR: No focal deficits; alert and oriented times three. (Simi Blair) Assessment and Plan Plan - Acute abdominal pain- LLQ abdominal pain that started on Tuesday, the pain was constant after onset and persisted which prompted him to come to the Er for further evaluation, this is constant, 5 on the scale from 0-10, no aggravating or alleviating factors. He had some nausea which is not unusual for him. Denies any vomiting, diarrhea, fever or chills. Pt denies any melena or BRBPR. or change in bowels .Pt had a CT Abd/pelvis at admission which noted Proximal small bowel ileus with significant intestinal and sarina-intestinal inflammation characteristic of acute enteritis. Ischemic bowel cannot be excluded. Cholelithiasis. Pancreatic calcification characteristic of chronic pancreatitis. Significant atherosclerotic vascular disease especially involving the origin of the SMA. Free fluid in the pelvis without evidence of loculated collections to suggest abscess formation. [place]ischemic bowel vs acute enteritis- CTA tomorrow - Chronic pancreatitis- history of chronic pancreatitis reportedly secondary to alcohol abuse. He states he has cut back and now he only drinks on the weekends, last drink was on Tuesday - Tobacco abuse- - DM, HTN per attending Plan: - MARIO - Cont. cipro and Flagyl - CTA tomorrow - consult - Possible EGD/colonoscopy on Tuesday - Supportive care - Patient seen and examined by Dr. Colbert and myself and this note is written on his behalf. (Simi Blair) Physician Comments Seen and examined with MAJOR GIFTS DIRECTOR, CT reviewed, ? ischemic enteritis. CTA ordered. GS consult requested. Monitor labs. Check Lactic acid levels. Possible egd/ colonoscopy depending upon clinical course. Will follow, thank you (Tammy Colbert MD) Simi Blair Sep 03, 2016 10:19 Tammy Colbert MD Sep 03, 2016 19:47
[2016-09-03 12:00] VITALS: BP 111/72; PULSE 83; RESP 20; TEMP 98.2; O2SAT 91
[2016-09-03 16:08] VITALS: BP 119/64; PULSE 92; RESP 20; TEMP 100; O2SAT 86
[2016-09-03] MEDS: ENOXAPARIN SODIUM 40 MG/0.4 ML SYRINGE SQ SCH (16:09)
--- NOTE | 2016-09-03 16:13 | HHI.PR ---
Subjective Remarks f/u for abdominal pain. patient stated pain is the same. denied any N/V. remains afebrile. Objective Vitals Vital Signs Date Time Temp Pulse Resp B/P Pulse Ox O2 Delivery O2 Flow Rate FiO2 09/03/16 12:00 98.2 83 20 111/72 91 09/03/16 08:00 98.1 77 20 110/67 91 09/03/16 04:00 98.8 83 18 137/77 95 09/03/16 00:33 98.6 83 18 116/70 95 09/02/16 20:19 96.3 90 18 136/74 92 09/02/16 17:55 127 20 157/90 96 Nasal Cannula 3 09/02/16 16:34 86 18 136/72 96 Room Air I/O 09/02/16 09/02/16 09/02/16 09/03/16 09/03/16 09/03/16 07:00 15:00 23:00 07:00 15:00 23:00 Intake Total 350 ml 200 ml 360 ml Output Total 1100 ml 300 ml 800 ml 650 ml Balance -750 ml -100 ml -440 ml -650 ml Intake Oral 350 ml 200 ml 360 ml Output Urine Total 1100 ml 300 ml 800 ml 650 ml # Voids 1 # Bowel Movements 0 0 Result Diagram: 09/03/1691609/03/16916 Objective Remarks GENERAL: in NAD CARDIOVASCULAR: Regular rate and rhythm without murmurs, gallops, or rubs. RESPIRATORY: Breath sounds equal bilaterally. No accessory muscle use. GASTROINTESTINAL: Abdomen soft, nondistended, left TTP. no peritoneal signs. MUSCULOSKELETAL: No cyanosis, or edema. BACK: Nontender without obvious deformity. No CVA tenderness. Medications and IVs Current Medications Acetaminophen/ Hydrocodone Bitart ([place] 5-325 Mg) 1 tab ONCE ONCE PO ; Start 09/02/16 at 13:30; Stop 09/02/16 at 13:31; Status DC Ondansetron HCl (Zofran Odt) 4 mg ONCE ONCE PO Last administered on 09/02/16 13:26; Start 09/02/16 at 13:30; Stop 09/02/16 at 13:31; Status DC Ketorolac Tromethamine (Toradol Inj) 60 mg ONCE ONCE IM Last administered on 13:37; Start 09/02/16 at 13:45; Stop 09/02/16 at 13:46; Status DC Diatrizoate Meglum/ Diatrizoate Sod (Md Jean Dave) 18 ml STK-MED ONCE .ROUTE Last administered on 09/02/16 13:37; Start 09/02/16 at 13:35; Stop at 13:36; Status DC Ondansetron HCl (Zofran Inj) 4 mg ONCE ONCE IV PUSH ; Start 09/02/16 at 15:15; Stop 09/02/16 at 15:15; Status DC Morphine Sulfate (Morphine Inj) 4 mg ONCE ONCE IV PUSH Last administered on 15:20; Start 09/02/16 at 15:15; Stop 09/02/16 at 15:16; Status DC Morphine Sulfate (Morphine Inj) 4 mg ONCE ONCE IV PUSH ; Start 09/02/16 at 15:15 ; Stop 09/02/16 at 15:15; Status DC Ondansetron HCl (Zofran Inj) 4 mg ONCE ONCE IVP ; Start 09/02/16 at 15:15; Stop 09/02/16 at 15:15; Status DC IV Flush (NS Flush) 2 ml UNSCH PRN IVF FLUSH AFTER USING IV ACCESS Last administered on 09/02/16 15:20; Start 09/02/16 at 15:15; Stop 09/02/16 at 18:03; Status DC Iohexol 100 ml 100 ml STK-MED ONCE IV Last administered on 09/02/16 15:57; Start 09/02/16 at 15:57; Stop 09/02/16 at 15:58; Status DC Ciprofloxacin/ Dextrose 200 ml @ 200 mls/hr ONCE ONCE IV Last administered on 09/02/16 16:48; Start 09/02/16 at 16:45; Stop 09/02/16 at 17:44; Status DC Metronidazole 100 ml @ 100 mls/hr ONCE ONCE IV Last administered on 09/02/16 16:48; Start 09/02/16 at 16:45; Stop 09/02/16 at 17:44; Status DC Sodium Chloride (NS 1000 ml Inj) 1,000 ml @ 100 mls/hr Q10H IV Last administered on 09/03/16 12:57; Start 09/02/16 at 18:00 IV Flush (NS Flush) 2 ml UNSCH PRN FLUSH FLUSH AFTER USING IV ACCESS; Start 09/02/16 at 17:45 IV Flush (NS Flush) 2 ml BID FLUSH ; Start 09/02/16 at 21:00 Acetaminophen (Tylenol) 650 mg Q4H PRN PO TEMP > 100.4; Start 09/02/16 at 17:45 Ondansetron HCl (Zofran Inj) 4 mg Q6H PRN IVP NAUSEA OR VOMITING Last administered on 09/03/16 09:25; Start 09/02/16 at 17:45 Magnesium Hydroxide (Milk Of Magnesia Liq) 30 ml Q12H PRN PO CONSTIPATION; Start 09/02/16 at 17:45 Enoxaparin Sodium (Lovenox Inj) 40 mg Q24H SQ Last administered on 09/02/16 18: 02; Start 09/02/16 at 17:45 Naloxone HCl 0.4 mg 0.4 mg UNSCH PRN IV SEE LABEL COMMENTS; Start 09/02/16 at 17 :45 Ciprofloxacin/ Dextrose 200 ml @ 200 mls/hr Q12H IV Last administered on 03:49; Start 09/03/16 at 04:00 Metronidazole (Flagyl 500 Mg Inj) 100 ml @ 100 mls/hr Q8H IV Last administered on 09/03/16 06:32; Start 09/02/16 at 23:00 Lisinopril (Prinivil) 10 mg DAILY PO Last administered on 09/03/16 09:23; Start 09/03/16 at 09:00 Dextrose (D50w (Vial) Inj) 25 ml UNSCH PRN IV PUSH HYPOGLYCEMIA-SEE COMMENTS; Start 09/02/16 at 18:45 Glucagon (Glucagon Inj) 1 mg UNSCH PRN OTHER HYPOGLYCEMIA-SEE COMMENTS; Start 09/02/16 at 18:45 Insulin Aspart (NovoLOG SUPPLEMENTAL SCALE) 1 ACHS SLIDING SCALE SQ Last administered on 09/02/16 20:25; Start 09/02/16 at 21:00 Morphine Sulfate (Morphine Inj) 2 mg Q3H PRN IV PUSH PAIN 1-5; Start 09/03/16 at 00:30 Morphine Sulfate (Morphine Inj) 4 mg Q3H PRN IV PUSH PAIN 6-10 Last administered on 09/03/16 13:01; Start 09/03/16 at 00:30 Ketorolac Tromethamine (Toradol Inj) 30 mg ONCE ONCE IV PUSH Last administered on 09/03/16 03:50; Start 09/03/16 at 02:15; Stop 09/03/16 at 02:16 ; Status DC A/P Assessment and Plan 61-year-old male with acute abdominal pain Acute abdominal pain -CT scan showed possible enteritis versus ischemic bowel. -Patient was given Cipro and Flagyl will continue with current regimen. -GI consulted recommend to continue current regimen and get CTA tomorrow. -continue monitor with serial abdominal exam, given IV fluids and pain control. Type 2 diabetes - glipizide held and now on SSI. - on hypoglycemic protocol. Hyponatremia -Asymptomatic. -May be secondary to dehydration. -Continue to monitor sodium. Hypertension -continue home medication. DVT prophylaxis -Milady Cisneros MD Sep 03, 2016 16:13
--- NOTE | 2016-09-03 19:11 | EKG ---
Date Performed: 09/03/2016 Time Performed: 07:27:49 PTAGE: 61 years EKG: Sinus rhythm NORMAL ECG PREVIOUS TRACING : 03/27/2016 23.40 Compared to prior tracing no significant change DOCTOR: Ky Vincent Interpretating Date/Time 09/03/2016 19:09:43
[2016-09-03 20:00] VITALS: BP 109/72; PULSE 95; RESP 18; TEMP 96.9; O2SAT 90
[2016-09-04] MEDS: MORPHINE SULFATE 4 MG/ML INJ IV PUSH PRN ×4 (01:37→19:47)
[2016-09-04 01:38] VITALS: BP 118/66; PULSE 85; RESP 17; TEMP 98.7; O2SAT 92
[2016-09-04 04:00] VITALS: BP 135/70; PULSE 89; RESP 17; TEMP 99; O2SAT 90
[2016-09-04] MEDS: CIPROFLOXACIN 400 MG PREMIX 200 ML IV SCH ×2 (05:17→14:51)
[2016-09-04] MEDS: SODIUM CHLOR 0.9% 1000 ML INJ 1,000 ML IV SCH ×3 (05:18→19:50)
[2016-09-04] MEDS: metroNIDAZOLE 500 MG INJ 100 ML IV SCH ×3 (05:19→23:23)
[2016-09-04] MEDS: INSULIN ASPART SUPPLEMENTAL SCALE SQ SCH ×4 (05:27→19:50)
[2016-09-04] MEDS: LISINOPRIL 10 MG TAB PO SCH (07:52)
[2016-09-04] MEDS: SODIUM CHLORIDE 0.9% FLUSH 5 ML FLUSH FLUSH SCH ×2 (07:52→19:50)
[2016-09-04 08:30] VITALS: BP 122/59; PULSE 88; RESP 16; TEMP 98.8; O2SAT 91
[2016-09-04] MEDS ORDERED: IOHEXOL 350 MG/ML 10 ML VIAL (for RAD DIAG) IV ONE (09:15)
[2016-09-04] MEDS: ONDANSETRON HCL 4 MG/2 ML VIAL IVP PRN ×2 (09:49→12:24)
--- NOTE | 2016-09-04 11:00 | HHI.PR ---
Subjective Remarks f/u for abdominal pain. patient continues to c/o of the same abdominal pain. he stated it has no worsen but it is not improving at all. Denied any N/V. remains afebrile. Objective Vitals Vital Signs Date Time Temp Pulse Resp B/P Pulse Ox O2 Delivery O2 Flow Rate FiO2 09/04/16 08:30 98.8 88 16 122/59 91 09/04/16 05:35 20 09/04/16 04:00 99.0 89 17 135/70 90 09/04/16 01:38 98.7 85 17 118/66 92 09/03/16 20:00 96.9 95 18 109/72 90 09/03/16 16:08 100.0 92 20 119/64 86 09/03/16 12:00 98.2 83 20 111/72 91 I/O 09/03/16 09/03/16 09/03/16 09/04/16 09/04/16 09/04/16 07:00 15:00 23:00 07:00 15:00 23:00 Intake Total 200 ml 360 ml 1340 ml 949 ml Output Total 300 ml 800 ml 1050 ml 595 ml Balance -100 ml -440 ml 290 ml 354 ml Intake Oral 200 ml 360 ml 240 ml 240 ml IV Total 1100 ml 709 ml Output Urine Total 300 ml 800 ml 1050 ml 595 ml # Bowel Movements 0 0 Result Diagram: 09/03/1691609/03/16916 Objective Remarks GENERAL: in NAD CARDIOVASCULAR: Regular rate and rhythm without murmurs, gallops, or rubs. RESPIRATORY: Breath sounds equal bilaterally. No accessory muscle use. GASTROINTESTINAL: Abdomen soft, nondistended, left lower quadrant TTP. no peritoneal signs. MUSCULOSKELETAL: No cyanosis, or edema. BACK: Nontender without obvious deformity. No CVA tenderness. Medications and IVs Current Medications Acetaminophen/ Hydrocodone Bitart ([place] 5-325 Mg) 1 tab ONCE ONCE PO ; Start 09/02/16 at 13:30; Stop 09/02/16 at 13:31; Status DC Ondansetron HCl (Zofran Odt) 4 mg ONCE ONCE PO Last administered on 09/02/16t 13:26; Start 09/02/16 at 13:30; Stop 09/02/16 at 13:31; Status DC Ketorolac Tromethamine (Toradol Inj) 60 mg ONCE ONCE IM Last administered on 13:37; Start 09/02/16 at 13:45; Stop 09/02/16 at 13:46; Status DC Diatrizoate Meglum/ Diatrizoate Sod (Md Pena Lijose) 18 ml STK-MED ONCE .ROUTE Last administered on 09/02/16 13:37; Start 09/02/16 at 13:35; Stop at 13:36; Status DC Ondansetron HCl (Zofran Inj) 4 mg ONCE ONCE IV PUSH ; Start 09/02/16 at 15:15; Stop 09/02/16 at 15:15; Status DC Morphine Sulfate (Morphine Inj) 4 mg ONCE ONCE IV PUSH Last administered on 15:20; Start 09/02/16 at 15:15; Stop 09/02/16 at 15:16; Status DC Morphine Sulfate (Morphine Inj) 4 mg ONCE ONCE IV PUSH ; Start 09/02/16 at 15:15 ; Stop 09/02/16 at 15:15; Status DC Ondansetron HCl (Zofran Inj) 4 mg ONCE ONCE IVP ; Start 09/02/16 at 15:15; Stop 09/02/16 at 15:15; Status DC IV Flush (NS Flush) 2 ml UNSCH PRN IVF FLUSH AFTER USING IV ACCESS Last administered on 09/02/16 15:20; Start 09/02/16 at 15:15; Stop 09/02/16 at 18:03; Status DC Iohexol 100 ml 100 ml STK-MED ONCE IV Last administered on 09/02/16 15:57; Start 09/02/16 at 15:57; Stop 09/02/16 at 15:58; Status DC Ciprofloxacin/ Dextrose 200 ml @ 200 mls/hr ONCE ONCE IV Last administered on 09/02/16 16:48; Start 09/02/16 at 16:45; Stop 09/02/16 at 17:44; Status DC Metronidazole 100 ml @ 100 mls/hr ONCE ONCE IV Last administered on 09/02/16 16:48; Start 09/02/16 at 16:45; Stop 09/02/16 at 17:44; Status DC Sodium Chloride (NS 1000 ml Inj) 1,000 ml @ 100 mls/hr Q10H IV Last administered on 09/04/16 07:52; Start 09/02/16 at 18:00 IV Flush (NS Flush) 2 ml UNSCH PRN FLUSH FLUSH AFTER USING IV ACCESS; Start 09/02/16 at 17:45 IV Flush (NS Flush) 2 ml BID FLUSH Last administered on 09/03/16 20:55; Start 09/02/16 at 21:00 Acetaminophen (Tylenol) 650 mg Q4H PRN PO TEMP > 100.4; Start 09/02/16 at 17:45 Ondansetron HCl (Zofran Inj) 4 mg Q6H PRN IVP NAUSEA OR VOMITING Last administered on 09/04/16 09:49; Start 09/02/16 at 17:45 Magnesium Hydroxide (Milk Of Magnesia Liq) 30 ml Q12H PRN PO CONSTIPATION; Start 09/02/16 at 17:45 Enoxaparin Sodium (Lovenox Inj) 40 mg Q24H SQ Last administered on 09/03/16 16 :09; Start 09/02/16 at 17:45 Naloxone HCl 0.4 mg 0.4 mg UNSCH PRN IV SEE LABEL COMMENTS; Start 09/02/16 at 17 :45 Ciprofloxacin/ Dextrose 200 ml @ 200 mls/hr Q12H IV Last administered on 05:17; Start 09/03/16 at 04:00 Metronidazole (Flagyl 500 Mg Inj) 100 ml @ 100 mls/hr Q8H IV Last administered on 09/04/16 05:19; Start 09/02/16 at 23:00 Lisinopril (Prinivil) 10 mg DAILY PO Last administered on 09/04/16 07:52; Start 09/03/16 at 09:00 Dextrose (D50w (Vial) Inj) 25 ml UNSCH PRN IV PUSH HYPOGLYCEMIA-SEE COMMENTS; Start 09/02/16 at 18:45 Glucagon (Glucagon Inj) 1 mg UNSCH PRN OTHER HYPOGLYCEMIA-SEE COMMENTS; Start 09/02/16 at 18:45 Insulin Aspart (NovoLOG SUPPLEMENTAL SCALE) 1 ACHS SLIDING SCALE SQ Last administered on 09/02/16 20:25; Start 09/02/16 at 21:00 Morphine Sulfate (Morphine Inj) 2 mg Q3H PRN IV PUSH PAIN 1-5; Start 09/03/16 at 00:30 Morphine Sulfate (Morphine Inj) 4 mg Q3H PRN IV PUSH PAIN 6-10 Last administered on 09/04/16 09:49; Start 09/03/16 at 00:30 Ketorolac Tromethamine (Toradol Inj) 30 mg ONCE ONCE IV PUSH Last administered on 09/03/16 03:50; Start 09/03/16 at 02:15; Stop 09/03/16 at 02:16 ; Status DC Iohexol (Omnipaque 350 Inj) 76 ml STK-MED ONCE IV Last administered on 09:15; Start 09/04/16 at 09:15; Stop 09/04/16 at 09:16; Status DC A/P Assessment and Plan 61-year-old male with acute abdominal pain Acute abdominal pain -CT scan showed possible enteritis versus ischemic bowel. -Patient was given Cipro and Flagyl will continue with current regimen. -GI consulted recommend to continue current regimen get CTA. pending report. -continue monitor with serial abdominal exam, given IV fluids and pain control. Type 2 diabetes - glipizide held and now on SSI. - on hypoglycemic protocol. Hyponatremia -Asymptomatic. -May be secondary to dehydration. -Continue to monitor sodium. Hypertension -continue home medication. DVT prophylaxis -Lovenox Discharge Planning patient clinically not improving. waiting for CTA and GI ff. Milady Saeed MD Sep 04, 2016 11:00
--- NOTE | 2016-09-04 11:25 | RADRPT ---
EXAM DATE/TIME: 09/04/2016 09:06 [facility] COMPARISON: CT ABDOMEN & PELVIS W CONTRAST, September 02, 2016, 15:52. INDICATIONS : Intractable abdominal pain, nausea; evaluate for ischemic bowel. IV CONTRAST: 76 cc Omnipaque 350 (iohexol) IV ORAL CONTRAST: No oral contrast ingested. RADIATION DOSE: 7.08 CTDIvol (mGy) MEDICAL HISTORY : Pancreatitis. Hypertension. Chronic obstructive pulmonary disease. SURGICAL HISTORY : Cholecystectomy. Splenic artery stent. ENCOUNTER: Initial ACUITY: 2 days PAIN SCALE: 4/10 LOCATION: Abdomen. TECHNIQUE: Volumetric scanning was performed using a multi-row detector CT scanner. The data was post processed with a variety of visualization algorithms including full volume maximum intensity projection, multi -planar sliding thin slab reformation, curved planar reformation, and surface rendering techniques. Using automated exposure control and adjustment of the mA and/or kV according to patient size, radiat ion dose was kept as low as reasonably achievable to obtain optimal diagnostic quality images. FINDINGS: Atherosclerotic calcifications are seen throughout the arterial system. An abdominal aortic aneurysm or dissection is not seen. The celiac, SMA and MANDY are patent. The renal arteries are patent. The common iliac, external iliac and internal iliac arteries are patent. There are layering gallstones seen in the gallbladder. There does appear to be inflammatory change i n the left upper abdomen. This was present previously. There is a mild amount of free fluid seen in the pelvis. CONCLUSION: 1. Atherosclerotic change without a significant area of stenosis. 2. Inflammatory change in the mesentery in the left upper abdomen. Gumaro Schuster MD on September 04, 2016 at 11:11 Board Certified Radiologist. This report was verified electronically.
[2016-09-04] MEDS ORDERED: HYDROmorphone HCL PF 1 MG/ML VIAL IV PUSH PRN (12:00)
[2016-09-04 12:59] VITALS: BP 97/46; PULSE 108; RESP 16; TEMP 100.3; O2SAT 88
--- NOTE | 2016-09-04 13:35 | HHI.GIFU ---
Subjective Remarks Patient is resting in bed, still with lower abdomen pain, responding to pain medications. No nausea or vomiting (Johnnie,Simi BATTERY MECHANIC) Objective Vitals I&O Vital Signs Date Time Temp Pulse Resp B/P Pulse Ox O2 Delivery O2 Flow Rate FiO2 09/04/16 12:59 100.3 108 16 97/46 88 09/04/16 08:30 98.8 88 16 122/59 91 09/04/16 05:35 20 09/04/16 04:00 99.0 89 17 135/70 90 09/04/16 01:38 98.7 85 17 118/66 92 09/03/16 20:00 96.9 95 18 109/72 90 09/03/16 16:08 100.0 92 20 119/64 86 I/O 09/03/16 09/03/16 09/03/16 09/04/16 09/04/16 09/04/16 07:00 15:00 23:00 07:00 15:00 23:00 Intake Total 200 ml 360 ml 1340 ml 949 ml Output Total 300 ml 800 ml 1050 ml 595 ml Balance -100 ml -440 ml 290 ml 354 ml Intake Oral 200 ml 360 ml 240 ml 240 ml IV Total 1100 ml 709 ml Output Urine Total 300 ml 800 ml 1050 ml 595 ml # Bowel Movements 0 0 1 Laboratory Date/Time Procedure Status Source Growth 09/02/16 16:40 Aerobic Blood Culture - Preliminary Resulted Blood Peripheral NO GROWTH IN 2 DAYS 09/02/16 16:40 Anaerobic Blood Culture - Preliminary Resulted Blood Peripheral NO GROWTH IN 2 DAYS Imaging Last Impressions Chest X-Ray 09/02/167 Signed Impressions: Service Date/Time: August 13:24 - CONCLUSION: No evidence of acute airspace disease. COPD. Stable right apical pleural-parenchymal scarring. Albino Bravo MD Abdomen/Pelvis CT 09/02/16 1317 Signed Impressions: Service Date/Time: August 15:52 - CONCLUSION: Proximal small bowel ileus with significant intestinal and sarina-intestinal inflammation characteristic of acute enteritis. Ischemic bowel cannot be excluded. Cholelithiasis. Pancreatic calcification characteristic of chronic pancreatitis. Significant atherosclerotic vascular disease especially involving the origin of the SMA. Free fluid in the pelvis without evidence of loculated collections to suggest abscess formation. Albino Bravo MD Physical Exam HEENT: normocephalic; atraumatic; no jaundice. Throat is clear. NECK: Neck is supple, no JVD, no lymphadenopathy. CHEST: Chest is clear to auscultation and percussion. CARDIAC: Regular rate and rhythm with no murmur gallop or rubs. ABDOMEN: Soft, nondistended, diffused tenderness to touch; no hepatosplenomegaly; bowel sounds are present in all four quadrants. EXTREMITIES: No clubbing, cyanosis, or edema. SKIN: rash to upper extremities and lower abdomen FLEXO OPERATOR: No focal deficits; alert and oriented times three. (Simi Blair) Assessment and Plan Plan - Acute abdominal pain-/ LLQ abdominal pain that started on Tuesday- CTA (09/04/16)----> atherosclerotic changes without a significant area of stenosis, inflammatory change in the mesentery in the left upper abdomen Pt had a CT Abd/pelvis at admission which noted Proximal small bowel ileus with significant intestinal and sarina-intestinal inflammation characteristic of acute enteritis. Ischemic bowel cannot be excluded. Cholelithiasis. Pancreatic calcification characteristic of chronic pancreatitis. Significant atherosclerotic vascular disease especially involving the origin of the SMA. Free fluid in the pelvis without evidence of loculated collections to suggest abscess formation. [place]ischemic bowel vs acute enteritis- CTA (09/04/16)----> atherosclerotic changes without a significant area of stenosis, inflammatory change in the mesentery in the left upper abdomen - Chronic pancreatitis- history of chronic pancreatitis reportedly secondary to alcohol abuse. He states he has cut back and now he only drinks on the weekends, last drink was on Tuesday - Leukocytosis- improving, abx - Tobacco abuse- - DM, HTN per attending Plan: - MARIO - Cont. cipro and Flagyl - EGD/colonoscopy on Tuesday - obtain consents - clear liquids tomorrow - golytely tomorrow - NPO Tuesday MN - Await VS consult - Supportive care - Patient seen and examined by Dr. Colbert and myself and this note is written on his behalf. (Simi Blair) Physician Comments Seen and examined with BATTERY MECHANIC, still with abdominal pain and distension. +ve BM. no bleeding. Discussed with Dr. Sarmiento last night who recommended Vascular surgery consult. This was placed this morning. CTA reviewed. Egd/colonoscopy planned. (Tammy Colbert MD) Simi Blair Sep 04, 2016 13:35 Tammy Colbert MD Sep 04, 2016 14:14
[2016-09-04] MEDS ORDERED: MORPHINE SULFATE 4 MG/ML INJ IV PUSH PRN (14:00)
[2016-09-04] MEDS: ENOXAPARIN SODIUM 40 MG/0.4 ML SYRINGE SQ SCH (14:50)
[2016-09-04 16:00] VITALS: BP 91/53; PULSE 97; RESP 16; TEMP 100; O2SAT 89
[2016-09-04] MEDS ORDERED: PROMETHAZINE HCL 25 MG SUPP RECTAL PRN (16:45)
[2016-09-04 20:00] VITALS: BP 95/61; PULSE 94; RESP 15; TEMP 99.7; O2SAT 92
[2016-09-05] VITALS (8 sets, daily range): BP systolic 101–111; BP diastolic 58–67; PULSE 52–96; RESP 15–20; TEMP 97.9–99.2; O2SAT 85–96
[2016-09-05] MEDS: ONDANSETRON HCL 4 MG/2 ML VIAL IVP PRN ×4 (01:06→19:56)
[2016-09-05] MEDS: CIPROFLOXACIN 400 MG PREMIX 200 ML IV SCH ×2 (03:44→16:00)
[2016-09-05] MEDS: SODIUM CHLOR 0.9% 1000 ML INJ 1,000 ML IV SCH ×2 (03:44→16:40)
[2016-09-05] MEDS: MORPHINE SULFATE 4 MG/ML INJ IV PUSH PRN ×3 (03:51→16:46)
[2016-09-05] MEDS: INSULIN ASPART SUPPLEMENTAL SCALE SQ SCH ×4 (05:59→20:15)
[2016-09-05] MEDS: metroNIDAZOLE 500 MG INJ 100 ML IV SCH ×3 (06:00→22:04)
[2016-09-05 06:27] LABS: HEMATOCRIT 44.7 % (39.0-51.0); MEAN CELL VOLUME 89.3 FL (80.0-100.0); MEAN CORPUSCULAR HEMOGLOBIN 29.5 PG (27.0-34.0); PLATELET COUNT 364 TH/MM3 (150-450); RED BLOOD COUNT 5.01 MIL/MM3 (4.50-5.90); RED CELL DISTRIBUTION WIDTH 13.9 % (11.6-17.2); REVIEW FLAG FINAL; WHITE BLOOD COUNT 21.4 TH/MM3 (4.0-11.0)
[2016-09-05 06:44] LABS: BICARBONATE 28.7 MEQ/L (21.0-32.0); POTASSIUM 4.3 MEQ/L (3.5-5.1)
[2016-09-05] MEDS: LISINOPRIL 10 MG TAB PO SCH (08:19)
[2016-09-05] MEDS: SODIUM CHLORIDE 0.9% FLUSH 5 ML FLUSH FLUSH SCH ×2 (08:20→20:15)
--- NOTE | 2016-09-05 11:09 | HHI.PR ---
Subjective Remarks f/u for abdominal pain. patient had episode of hypoxia while he was cough up a lot of sputum. Patient stated this is his normal amount and that his breathing is fine. he decline the nonrebreathing and stated we are over reacting and he does not have any SOB. I asked him if he is coughing more he stated no. + ? post nasal gtt. patient remains afebrile. some improvement in abdominal pain. Denied any N/V. Objective Vitals Vital Signs Date Time Temp Pulse Resp B/P Pulse Ox O2 Delivery O2 Flow Rate FiO2 09/05/16 09:14 86 Nasal Cannula 6.00 09/05/16 08:52 Nasal Cannula 4.00 09/05/16 08:00 98.6 96 16 106/64 85 09/05/16 06:00 91 16 93 09/05/16 04:55 98.7 77 20 101/58 91 09/05/16 04:00 Nasal Cannula 4.00 09/05/16 00:17 99.2 76 20 101/58 96 09/04/16 20:00 99.7 94 15 95/61 92 09/04/16 16:00 100.0 97 16 91/53 89 09/04/16 12:59 100.3 108 16 97/46 88 I/O 09/04/16 09/04/16 09/04/16 09/05/16 09/05/16 09/05/16 07:00 15:00 23:00 07:00 15:00 23:00 Intake Total 949 ml 240 ml 1703 ml 1470 ml Output Total 595 ml 200 ml 850 ml 550 ml Balance 354 ml 40 ml 853 ml 920 ml Intake Oral 240 ml 240 ml 420 ml 240 ml IV Total 709 ml 1283 ml 1230 ml Output Urine Total 595 ml 200 ml 850 ml 550 ml # Bowel Movements 1 0 0 Result Diagram: 09/05/16 0555 09/05/16 0555 Objective Remarks GENERAL: in NAD CARDIOVASCULAR: Regular rate and rhythm without murmurs, gallops, or rubs. RESPIRATORY: Breath sounds equal bilaterally. No accessory muscle use. GASTROINTESTINAL: Abdomen soft, nondistended, left lower quadrant TTP. no peritoneal signs. MUSCULOSKELETAL: No cyanosis, or edema. BACK: Nontender without obvious deformity. No CVA tenderness. Medications and IVs Current Medications Acetaminophen/ Hydrocodone Bitart ([place] 5-325 Mg) 1 tab ONCE ONCE PO ; Start 09/02/16 at 13:30; Stop 09/02/16 at 13:31; Status DC Ondansetron HCl (Zofran Odt) 4 mg ONCE ONCE PO Last administered on 09/02/16 13:26; Start 09/02/16 at 13:30; Stop 09/02/16 at 13:31; Status DC Ketorolac Tromethamine (Toradol Inj) 60 mg ONCE ONCE IM Last administered on 13:37; Start 09/02/16 at 13:45; Stop 09/02/16 at 13:46; Status DC Diatrizoate Meglum/ Diatrizoate Sod ( Gastroview Liq) 18 ml STK-MED ONCE .ROUTE Last administered on 09/02/16 13:37; Start 09/02/16 at 13:35; Stop at 13:36; Status DC Ondansetron HCl (Zofran Inj) 4 mg ONCE ONCE IV PUSH ; Start 09/02/16 at 15:15; Stop 09/02/16 at 15:15; Status DC Morphine Sulfate (Morphine Inj) 4 mg ONCE ONCE IV PUSH Last administered on 15:20; Start 09/02/16 at 15:15; Stop 09/02/16 at 15:16; Status DC Morphine Sulfate (Morphine Inj) 4 mg ONCE ONCE IV PUSH ; Start 09/02/16 at 15:15 ; Stop 09/02/16 at 15:15; Status DC Ondansetron HCl (Zofran Inj) 4 mg ONCE ONCE IVP ; Start 09/02/16 at 15:15; Stop 09/02/16 at 15:15; Status DC IV Flush (NS Flush) 2 ml UNSCH PRN IVF FLUSH AFTER USING IV ACCESS Last administered on 09/02/16 15:20; Start 09/02/16 at 15:15; Stop 09/02/16 at 18:03; Status DC Iohexol 100 ml 100 ml STK-MED ONCE IV Last administered on 09/02/16 15:57; Start 09/02/16 at 15:57; Stop 09/02/16 at 15:58; Status DC Ciprofloxacin/ Dextrose 200 ml @ 200 mls/hr ONCE ONCE IV Last administered on 09/02/16 16:48; Start 09/02/16 at 16:45; Stop 09/02/16 at 17:44; Status DC Metronidazole 100 ml @ 100 mls/hr ONCE ONCE IV Last administered on 09/02/16 16:48; Start 09/02/16 at 16:45; Stop 09/02/16 at 17:44; Status DC Sodium Chloride (NS 1000 ml Inj) 1,000 ml @ 100 mls/hr Q10H IV Last administered on 09/05/16 03:44; Start 09/02/16 at 18:00 IV Flush (NS Flush) 2 ml UNSCH PRN FLUSH FLUSH AFTER USING IV ACCESS; Start 09/02/16 at 17:45 IV Flush (NS Flush) 2 ml BID FLUSH Last administered on 09/03/16 20:55; Start 09/02/16 at 21:00 Acetaminophen (Tylenol) 650 mg Q4H PRN PO TEMP > 100.4; Start 09/02/16 at 17:45 Ondansetron HCl (Zofran Inj) 4 mg Q6H PRN IVP NAUSEA OR VOMITING Last administered on 09/05/16 08:32; Start 09/02/16 at 17:45 Magnesium Hydroxide (Milk Of Magnesia Liq) 30 ml Q12H PRN PO CONSTIPATION; Start 09/02/16 at 17:45 Enoxaparin Sodium (Lovenox Inj) 40 mg Q24H SQ Last administered on 09/04/16 14 :50; Start 09/02/16 at 17:45 Naloxone HCl 0.4 mg 0.4 mg UNSCH PRN IV SEE LABEL COMMENTS; Start 09/02/16 at 17 :45 Ciprofloxacin/ Dextrose 200 ml @ 200 mls/hr Q12H IV Last administered on 03:44; Start 09/03/16 at 04:00 Metronidazole (Flagyl 500 Mg Inj) 100 ml @ 100 mls/hr Q8H IV Last administered on 09/05/16 06:00; Start 09/02/16 at 23:00 Lisinopril (Prinivil) 10 mg DAILY PO Last administered on 09/04/16 07:52; Start 09/03/16 at 09:00 Dextrose (D50w (Vial) Inj) 25 ml UNSCH PRN IV PUSH HYPOGLYCEMIA-SEE COMMENTS; Start 09/02/16 at 18:45 Glucagon (Glucagon Inj) 1 mg UNSCH PRN OTHER HYPOGLYCEMIA-SEE COMMENTS; Start 09/02/16 at 18:45 Insulin Aspart (NovoLOG SUPPLEMENTAL SCALE) 1 ACHS SLIDING SCALE SQ Last administered on 09/02/16 20:25; Start 09/02/16 at 21:00 Morphine Sulfate (Morphine Inj) 2 mg Q3H PRN IV PUSH PAIN 1-5; Start 09/03/16 at 00:30; Stop 09/04/16 at 11:01; Status DC Morphine Sulfate (Morphine Inj) 4 mg Q3H PRN IV PUSH PAIN 6-10 Last administered on 09/04/16 09:49; Start 09/03/16 at 00:30; Stop 09/04/16 at 11:01 ; Status DC Ketorolac Tromethamine (Toradol Inj) 30 mg ONCE ONCE IV PUSH Last administered on 09/03/16 03:50; Start 09/03/16 at 02:15; Stop 09/03/16 at 02:16 ; Status DC Iohexol (Omnipaque 350 Inj) 76 ml STK-MED ONCE IV Last administered on 09:15; Start 09/04/16 at 09:15; Stop 09/04/16 at 09:16; Status DC Hydromorphone HCl (Dilaudid Pf Inj) 1 mg Q3HR PRN IV PUSH PAIN SCALE 6 TO 10 Last administered on 09/04/16 11:55; Start 09/04/16 at 12:00; Stop 09/04/16 at 13:18; Status DC Morphine Sulfate (Morphine Inj) 2 mg Q3H PRN IV PUSH PAIN SCALE 1 TO 6; Start 09/04/16 at 14:00 Morphine Sulfate (Morphine Inj) 4 mg Q3H PRN IV PUSH PAIN SCALE 7 TO 10 Last administered on 09/05/16 08:32; Start 09/04/16 at 13:30 Polyethylene Glycol/ Electrolytes (Colyte Liq) 4,000 ml ONCE ONCE PO ; Start at 16:00; Stop 09/05/16 at 16:01 Promethazine HCl (Phenergan Supp) 25 mg Q6H PRN RECTAL NAUSEA OR VOMITING Last administered on 3/11/17at 17:06; Start 09/04/16 at 16:45 A/P Assessment and Plan 61-year-old male with acute abdominal pain Acute abdominal pain -CT scan showed possible enteritis versus ischemic bowel. -Patient was given Cipro and Flagyl will continue with current regimen. -GI consulted and will do EGD and colonoscopy tomorrow. -CTA of abdomen did not show stenosis. -vascular and GS consulted by GI. -continue monitor with serial abdominal exam, given IV fluids and pain control. Hypoxia -maybe a mucus plug. patient is not symptomatic at all. -will get cxr and supplement with with oxygen. Allergic rhinitis -add flonase and claritin. Type 2 diabetes - glipizide held and now on SSI. - on hypoglycemic protocol. Hyponatremia -Asymptomatic. -May be secondary to dehydration. -Continue to monitor sodium. Hypertension -continue home medication. DVT prophylaxis -Lovenox Discharge Planning patient will have EGD and colonoscopy tomorrow. Still pending general surgery and vascular surgery consult. Milady Saeed MD Sep 05, 2016 11:09
--- NOTE | 2016-09-05 11:49 | HHI.GIFU ---
Subjective Remarks 61 yo male sitting up in chair in no apparent distress. Continues to have lower abdominal pain. No nausea/vomiting. (Eva Millan) Objective Vitals I&O Vital Signs Date Time Temp Pulse Resp B/P Pulse Ox O2 Delivery O2 Flow Rate FiO2 09/05/16 09:14 86 Nasal Cannula 6.00 09/05/16 08:52 Nasal Cannula 4.00 09/05/16 08:00 98.6 96 16 106/64 85 09/05/16 06:00 91 16 93 09/05/16 04:55 98.7 77 20 101/58 91 09/05/16 04:00 Nasal Cannula 4.00 09/05/16 00:17 99.2 76 20 101/58 96 09/04/16 20:00 99.7 94 15 95/61 92 09/04/16 16:00 100.0 97 16 91/53 89 09/04/16 12:59 100.3 108 16 97/46 88 I/O 09/04/16 09/04/16 09/04/16 09/05/16 09/05/16 09/05/16 07:00 15:00 23:00 07:00 15:00 23:00 Intake Total 949 ml 240 ml 1703 ml 1470 ml Output Total 595 ml 200 ml 850 ml 550 ml Balance 354 ml 40 ml 853 ml 920 ml Intake Oral 240 ml 240 ml 420 ml 240 ml IV Total 709 ml 1283 ml 1230 ml Output Urine Total 595 ml 200 ml 850 ml 550 ml # Bowel Movements 1 0 0 Laboratory Laboratory Tests Test 09/05/16 05:55 White Blood Count 21.4 Red Blood Count 5.01 Hemoglobin 14.8 Hematocrit 44.7 Mean Corpuscular Volume 89.3 Mean Corpuscular Hemoglobin 29.5 Mean Corpuscular Hemoglobin 33.0 Concent Red Cell Distribution Width 13.9 Platelet Count 364 Mean Platelet Volume 7.7 Sodium Level 128 Potassium Level 4.3 Chloride Level 87 Carbon Dioxide Level 28.7 Anion Gap 12 Blood Urea Nitrogen 8 Creatinine 0.42 Estimat Glomerular Filtration 208 Rate Random Glucose 136 Calcium Level 8.0 Date/Time Procedure Status Source Growth 09/02/16 16:40 Aerobic Blood Culture - Preliminary Resulted Blood Peripheral NO GROWTH IN 3 DAYS 09/02/16 16:40 Anaerobic Blood Culture - Preliminary Resulted Blood Peripheral NO GROWTH IN 3 DAYS Imaging Last Impressions Abdomen/Pelvis CT 09/04/16 0600 Signed Impressions: Service Date/Time: Sunday, September 04, 2016 09:06 - CONCLUSION: 1. Atherosclerotic change without a significant area of stenosis. 2. Inflammatory change in the mesentery in the left upper abdomen. Gumaro Schuster MD Chest X-Ray 09/02/16 1317 Signed Impressions: Service Date/Time: August 13:24 - CONCLUSION: No evidence of acute airspace disease. COPD. Stable right apical pleural-parenchymal scarring. Albino Bravo MD Physical Exam HEENT: PERRLA. Normocephalic; atraumatic; no jaundice. NECK: Neck is supple, no JVD, no lymphadenopathy. CHEST: CTA CARDIAC: RRR with no murmur gallop or rubs. ABDOMEN: Soft, nondistended, diffused tenderness to touch; no hepatosplenomegaly; bowel sounds are present x 4 quadrants EXTREMITIES: No clubbing, cyanosis, or edema. SKIN: Rash to upper extremities and lower abdomen GAS PIPE LAYER: No focal deficits; A&O x3. (Eva Millan) Assessment and Plan Plan ASSESSMENT: - Acute abdominal pain-/ LLQ, Abdominal pain that started on Tuesday. CTA ()----> atherosclerotic changes without a significant area of stenosis, inflammatory change in the mesentery in the left upper abdomen Pt had a CT Abd/pelvis at admission which noted Proximal small bowel ileus with significant intestinal and sarina-intestinal inflammation characteristic of acute enteritis. Ischemic bowel cannot be excluded. Cholelithiasis. Pancreatic calcification characteristic of chronic pancreatitis. Significant atherosclerotic vascular disease especially involving the origin of the SMA. Free fluid in the pelvis without evidence of loculated collections to suggest abscess formation. Colonoscopy was many years ago up [place], per patient. - ?ischemic bowel vs acute enteritis. CTA (09/04/16) as above. - Chronic pancreatitis- History of chronic pancreatitis reportedly secondary to alcohol abuse. He states he has cut back and now he only drinks on the weekends , last drink was on Tuesday - Leukocytosis- 09/04 WBC 13.5, 09/05 WBC 21.4 - Tobacco abuse - DM, HTN per attending PLAN: - MARIO - Cont. Cipro and Flagyl - EGD/colonoscopy on Tuesday - Obtain consents - Clear liquids today - Golytely prep today - NPO today at [place] - Await VS consult - Supportive care - Further recommendations to follow based on results of above. Patient seen and examined by Dr. Colbert and myself and this note is written on his behalf. (Eva Millan) Physician Comments Seen and examined with VARUN, improved pain today, up in chair. EGD/Colonoscopy planned for tomorrow. Vascular consult -p. (Tammy Colbert MD) Eva Millan Sep 05, 2016 11:49 Tammy Colbert MD Sep 05, 2016 15:10
--- NOTE | 2016-09-05 14:58 | RADRPT ---
EXAM DATE/TIME: 09/05/2016 13:24 [facility] COMPARISON: CHEST PA & LAT, May 30, 2014, 14:31. INDICATIONS : Hypoxia, Short of Breath. MEDICAL HISTORY : Pancreatitis. Hypertension. Chronic obstructive pulmonary disease. Diabetes. GERD. Hypercholesterol emia. SURGICAL HISTORY : Cholecystectomy. Splenic artery stent. ENCOUNTER: Initial ACUITY: 1 day PAIN SCORE: 0/10 LOCATION: Bilateral chest FINDINGS: Heart size normal. There is increased density at the right base with at least a mild right effusion present. There appears to be emphysematous changes in the upper lungs. There is prominence in the i nterstitium seen at the bases. A left effusion is not seen. CONCLUSION: 1. At least mild right pleural effusion. 2. Chronic emphysematous and interstitial disease. Gumaro Schuster MD on September 05, 2016 at 14:43 Board Certified Radiologist. This report was verified electronically.
[2016-09-05] MEDS ORDERED: PEG (High)/E-LYTE SOLN 4000 ML BTL PO ONE (16:00)
[2016-09-05] MEDS: FLUTICASONE PROPIONATE 50 MCG/ACT 16 GM NASAL SPRAY NASAL SCH ×2 (16:38→20:16)
[2016-09-05] MEDS: ENOXAPARIN SODIUM 40 MG/0.4 ML SYRINGE SQ SCH (16:40)
[2016-09-05] MEDS ORDERED: PROMETHAZINE HCL 25 MG TAB PO ONE (21:00)
[2016-09-06] VITALS: BP 115/62; PULSE 55; RESP 15; TEMP 98.1; O2SAT 92
[2016-09-06 01:17] LABS: C. DIFF EPI 027 PRESUMPTIVE NEGATIVE (NEGATIVE); C. DIFF TOXIN PCR NEGATIVE (NEGATIVE)
[2016-09-06] MEDS: MORPHINE SULFATE 4 MG/ML INJ IV PUSH PRN ×3 (02:58→21:00)
[2016-09-06] MEDS: ONDANSETRON HCL 4 MG/2 ML VIAL IVP PRN ×3 (02:59→21:01)
[2016-09-06] MEDS: SODIUM CHLOR 0.9% 1000 ML INJ 1,000 ML IV SCH ×3 (02:59→22:23)
[2016-09-06] MEDS: CIPROFLOXACIN 400 MG PREMIX 200 ML IV SCH ×2 (03:01→16:49)
[2016-09-06 04:00] VITALS: BP 113/61; PULSE 92; RESP 18; TEMP 98; O2SAT 97
[2016-09-06] MEDS: metroNIDAZOLE 500 MG INJ 100 ML IV SCH ×2 (06:04→14:54)
[2016-09-06] MEDS: INSULIN ASPART SUPPLEMENTAL SCALE SQ SCH ×4 (06:11→21:00)
[2016-09-06 08:00] VITALS: BP 120/68; PULSE 80; RESP 20; TEMP 96.3; O2SAT 92
[2016-09-06] MEDS: LISINOPRIL 10 MG TAB PO SCH (09:00)
[2016-09-06] MEDS: FLUTICASONE PROPIONATE 50 MCG/ACT 16 GM NASAL SPRAY NASAL SCH ×2 (09:00→22:24)
[2016-09-06] MEDS: LORATADINE 10 MG TAB PO SCH (09:00)
[2016-09-06] MEDS: AZITHROMYCIN INJ 500 MG in SODIUM CHLOR 0.9% 250 ML INJ 250 ML IV SCH (10:30)
--- NOTE | 2016-09-06 10:47 | HHI.PR ---
Subjective Remarks f/u for abdominal pain and hypoxia patient stated that he is cough up a lot of sputum. he is asking for mucinex. continues to have post nasal gtt. mild improvement for abdominal pain. patient not able to ambulate due to pain. he stated he will not try to ambulate. Objective Vitals Vital Signs Date Time Temp Pulse Resp B/P Pulse Ox O2 Delivery O2 Flow Rate FiO2 09/06/16 08:00 96.3 80 20 120/68 92 09/06/16 04:00 98.0 92 18 113/61 97 09/06/16 03:20 16 09/06/16 00:00 98.1 55 15 115/62 92 09/05/16 20:30 Nasal Cannula 4.00 09/05/16 20:00 98.5 52 15 111/59 91 09/05/16 16:00 98.5 87 16 101/58 94 09/05/16 12:00 97.9 85 16 110/67 95 I/O 09/05/16 09/05/16 09/05/16 09/06/16 09/06/16 09/06/16 07:00 15:00 23:00 07:00 15:00 23:00 Intake Total 1470 ml 480 ml 1045 ml 240 ml Output Total 550 ml 600 ml 225 ml 900 ml Balance 920 ml 480 ml 445 ml 15 ml -900 ml Intake Oral 240 ml 480 ml 240 ml IV Total 1230 ml 1045 ml Output Urine Total 550 ml 600 ml 225 ml Emesis 900 ml # Voids 3 # Bowel Movements 0 Result Diagram: 09/05/16 0555 09/05/16 0555 Imaging Last Impressions Abdomen/Pelvis CT 09/04/16 0600 Signed Impressions: Service Date/Time: Sunday, September 04, 2016 09:06 - CONCLUSION: 1. Atherosclerotic change without a significant area of stenosis. 2. Inflammatory change in the mesentery in the left upper abdomen. Gumaro Schuster MD Chest X-Ray 09/02/16 1317 Signed Impressions: Service Date/Time: August 13:24 - CONCLUSION: No evidence of acute airspace disease. COPD. Stable right apical pleural-parenchymal scarring. Albino Bravo MD Objective Remarks GENERAL: in NAD CARDIOVASCULAR: Regular rate and rhythm without murmurs, gallops, or rubs. RESPIRATORY: Breath sounds equal bilaterally. No accessory muscle use. GASTROINTESTINAL: Abdomen soft, nondistended, left lower quadrant TTP. no peritoneal signs. MUSCULOSKELETAL: No cyanosis, or edema. BACK: Nontender without obvious deformity. No CVA tenderness. Medications and IVs Current Medications Acetaminophen/ Hydrocodone Bitart ([place] 5-325 Mg) 1 tab ONCE ONCE PO ; Start 09/02/16 at 13:30; Stop 09/02/16 at 13:31; Status DC Ondansetron HCl (Zofran Odt) 4 mg ONCE ONCE PO Last administered on 09/02/16 13:26; Start 09/02/16 at 13:30; Stop 09/02/16 at 13:31; Status DC Ketorolac Tromethamine (Toradol Inj) 60 mg ONCE ONCE IM Last administered on 13:37; Start 09/02/16 at 13:45; Stop 09/02/16 at 13:46; Status DC Diatrizoate Meglum/ Diatrizoate Sod ( Gastroview Liq) 18 ml Mobile Authentication-MED ONCE .ROUTE Last administered on 09/02/16 13:37; Start 09/02/16 at 13:35; Stop at 13:36; Status DC Ondansetron HCl (Zofran Inj) 4 mg ONCE ONCE IV PUSH ; Start 09/02/16 at 15:15; Stop 09/02/16 at 15:15; Status DC Morphine Sulfate (Morphine Inj) 4 mg ONCE ONCE IV PUSH Last administered on 15:20; Start 09/02/16 at 15:15; Stop 09/02/16 at 15:16; Status DC Morphine Sulfate (Morphine Inj) 4 mg ONCE ONCE IV PUSH ; Start 09/02/16 at 15:15 ; Stop 09/02/16 at 15:15; Status DC Ondansetron HCl (Zofran Inj) 4 mg ONCE ONCE IVP ; Start 09/02/16 at 15:15; Stop 09/02/16 at 15:15; Status DC IV Flush (NS Flush) 2 ml UNSCH PRN IVF FLUSH AFTER USING IV ACCESS Last administered on 09/02/16 15:20; Start 09/02/16 at 15:15; Stop 09/02/16 at 18:03; Status DC Iohexol 100 ml 100 ml STK-MED ONCE IV Last administered on 09/02/16 15:57; Start 09/02/16 at 15:57; Stop 09/02/16 at 15:58; Status DC Ciprofloxacin/ Dextrose 200 ml @ 200 mls/hr ONCE ONCE IV Last administered on 09/02/16 16:48; Start 09/02/16 at 16:45; Stop 09/02/16 at 17:44; Status DC Metronidazole 100 ml @ 100 mls/hr ONCE ONCE IV Last administered on 09/02/16 16:48; Start 09/02/16 at 16:45; Stop 09/02/16 at 17:44; Status DC Sodium Chloride (NS 1000 ml Inj) 1,000 ml @ 100 mls/hr Q10H IV Last administered on 09/06/16 02:59; Start 09/02/16 at 18:00 IV Flush (NS Flush) 2 ml UNSCH PRN FLUSH FLUSH AFTER USING IV ACCESS; Start 09/02/16 at 17:45 IV Flush (NS Flush) 2 ml BID FLUSH Last administered on 09/05/16 20:15; Start 09/02/16 at 21:00 Acetaminophen (Tylenol) 650 mg Q4H PRN PO TEMP > 100.4; Start 09/02/16 at 17:45 Ondansetron HCl (Zofran Inj) 4 mg Q6H PRN IVP NAUSEA OR VOMITING Last administered on 09/06/16 02:59; Start 09/02/16 at 17:45 Magnesium Hydroxide (Milk Of Magnesia Liq) 30 ml Q12H PRN PO CONSTIPATION; Start 09/02/16 at 17:45 Enoxaparin Sodium (Lovenox Inj) 40 mg Q24H SQ Last administered on 09/05/16 16 :40; Start 09/02/16 at 17:45 Naloxone HCl 0.4 mg 0.4 mg UNSCH PRN IV SEE LABEL COMMENTS; Start 09/02/16 at 17 :45 Ciprofloxacin/ Dextrose 200 ml @ 200 mls/hr Q12H IV Last administered on 03:01; Start 09/03/16 at 04:00 Metronidazole (Flagyl 500 Mg Inj) 100 ml @ 100 mls/hr Q8H IV Last administered on 09/06/16 06:04; Start 09/02/16 at 23:00 Lisinopril (Prinivil) 10 mg DAILY PO Last administered on 09/04/16 07:52; Start 09/03/16 at 09:00 Dextrose (D50w (Vial) Inj) 25 ml UNSCH PRN IV PUSH HYPOGLYCEMIA-SEE COMMENTS; Start 09/02/16 at 18:45 Glucagon (Glucagon Inj) 1 mg UNSCH PRN OTHER HYPOGLYCEMIA-SEE COMMENTS; Start 09/02/16 at 18:45 Insulin Aspart (NovoLOG SUPPLEMENTAL SCALE) 1 ACHS SLIDING SCALE SQ Last administered on 09/02/16 20:25; Start 09/02/16 at 21:00 Morphine Sulfate (Morphine Inj) 2 mg Q3H PRN IV PUSH PAIN 1-5; Start 09/03/16 at 00:30; Stop 09/04/16 at 11:01; Status DC Morphine Sulfate (Morphine Inj) 4 mg Q3H PRN IV PUSH PAIN 6-10 Last administered on 09/04/16 09:49; Start 09/03/16 at 00:30; Stop 09/04/16 at 11:01 ; Status DC Ketorolac Tromethamine (Toradol Inj) 30 mg ONCE ONCE IV PUSH Last administered on 09/03/16 03:50; Start 09/03/16 at 02:15; Stop 09/03/16 at 02:16 ; Status DC Iohexol (Omnipaque 350 Inj) 76 ml STK-MED ONCE IV Last administered on 09:15; Start 09/04/16 at 09:15; Stop 09/04/16 at 09:16; Status DC Hydromorphone HCl (Dilaudid Pf Inj) 1 mg Q3HR PRN IV PUSH PAIN SCALE 6 TO 10 Last administered on 09/04/16 11:55; Start 09/04/16 at 12:00; Stop 09/04/16 at 13:18; Status DC Morphine Sulfate (Morphine Inj) 2 mg Q3H PRN IV PUSH PAIN SCALE 1 TO 6; Start 09/04/16 at 14:00 Morphine Sulfate (Morphine Inj) 4 mg Q3H PRN IV PUSH PAIN SCALE 7 TO 10 Last administered on 09/06/16 02:58; Start 09/04/16 at 13:30 Polyethylene Glycol/ Electrolytes (Colyte Liq) 4,000 ml ONCE ONCE PO Last administered on 09/05/16 16:40; Start 09/05/16 at 16:00; Stop 09/05/16 at 16:01 ; Status DC Promethazine HCl (Phenergan Supp) 25 mg Q6H PRN RECTAL NAUSEA OR VOMITING Last administered on 09/04/16 17:06; Start 09/04/16 at 16:45; Stop 09/05/16 at 21:00 ; Status DC Fluticasone Propionate (Flonase Anuj Spr) 1 spray BID NASAL Last administered on 09/05/16 20:16; Start 09/05/16 at 12:00 Loratadine (Claritin) 10 mg DAILY PO ; Start 09/06/16 at 09:00 Promethazine HCl 25 mg 25 mg ONCE ONCE PO Last administered on 09/05/16 22:04 ; Start 09/05/16 at 21:00; Stop 09/05/16 at 21:22; Status DC Azithromycin/ Sodium Chloride (Zithromax Inj/ NS 250 ml Inj) 250 ml @ 250 mls/ hr Q24H IV ; Start 09/06/16 at 11:00 Guaifenesin (Mucinex Er) 600 mg BID PO ; Start 09/06/16 at 11:00 A/P Assessment and Plan 61-year-old male with acute abdominal pain Acute abdominal pain -CT scan showed possible enteritis versus ischemic bowel. -Patient was given Cipro and Flagyl will continue with current regimen. -GI consulted and will do EGD and colonoscopy today. -CTA of abdomen did not show stenosis. -vascular consulted by GI still pending consult.. -continue monitor with serial abdominal exam, given IV fluids and pain control. Acute Hypoxia -most likely due to a mucus plug. clinically doing well. -cxr reviewed and not impress. -consult pulm. Allergic rhinitis -on flonase and claritin. Type 2 diabetes - glipizide held and now on SSI. - on hypoglycemic protocol. Hyponatremia -Asymptomatic. -May be secondary to dehydration. -Continue to monitor sodium. Hypertension -continue home medication. DVT prophylaxis -Lovenox Discharge Planning patient will have EGD and colonoscopy today and continues to be symptomatic. Milady Saeed MD Sep 06, 2016 10:47
[2016-09-06] MEDS: guaiFENesin E.R. 600 MG TAB PO SCH ×2 (11:00→21:00)
[2016-09-06] MEDS: SODIUM CHLORIDE 0.9% FLUSH 5 ML FLUSH FLUSH SCH ×2 (11:02→21:01)
[2016-09-06 11:37] LABS: AUTOMATED NEUTROPHIL # 16.9 TH/MM3 (1.8-7.7); BASOPHIL # 0.1 TH/MM3 (0-0.2); BASOPHIL % 0.5 % (0.0-2.0); EOSINOPHIL # 0.1 TH/MM3 (0-0.4); EOSINOPHIL % 0.5 % (0.0-4.0); HEMATOCRIT 47.6 % (39.0-51.0); HEMO FLAGS DIFF FINAL; LYMPH % 7.3 % (9.0-44.0); LYMPHOCYTE # 1.5 TH/MM3 (1.0-4.8); MEAN CELL VOLUME 88.7 FL (80.0-100.0); MEAN CORPUSCULAR HEMOGLOBIN 29.2 PG (27.0-34.0); MONO % 9.6 % (0.0-8.0); NEUT % 82.1 % (16.0-70.0); PLATELET COUNT 348 TH/MM3 (150-450); RED BLOOD COUNT 5.36 MIL/MM3 (4.50-5.90); WHITE BLOOD COUNT 20.6 TH/MM3 (4.0-11.0)
[2016-09-06 12:00] VITALS: BP 116/65; PULSE 92; RESP 20; TEMP 98.1; O2SAT 93
[2016-09-06] MEDS ORDERED: ETOMIDATE 20 MG/10 ML VIAL IV PUSH ONE (13:56)
--- NOTE | 2016-09-06 14:13 | GIPROC ---
[facility] [address] [facility]. [facility], [id number] EGD PROCEDURE REPORT EXAM DATE: 09/06/2016 PATIENT NAME: Kishor Garrison MR #: [id number] BIRTHDATE: 1955 ATTENDING: Tammy Colbert MD ORDER #: [id number] TYPESETTING MACHINE OPERATOR/TENDER: Nelson Mendoza and Balbir Mercer STATUS: inpatient INDICATIONS: The patient is a 61 yr old male here for an EGD due to abdominal pain PROCEDURE PERFORMED: EGD w/ biopsy MEDICATIONS: None and Per Anesthesia. TOPICAL ANESTHETIC: CONSENT: The patient understands the risks and benefits of the procedure and understands that these risks include, but are not limited to: sedation, allergic reaction, infection, perforation and/or bleeding. Alternative means of evaluation and treatment include, among others: physical exam, x-rays, and/or surgical intervention. The patient elects to proceed with this endoscopic procedure. medical equipment was checked for proper function. Hand hygiene and appropriate measures for infection prevention was taken. After the risks, benefits and alternatives of the procedure were thoroughly explained, Informed consent was verified, confirmed and timeout was successfully executed by the treatment team. The patient was anesthetized with topical anesthesia and the EC-[id number] (Pedi C) endoscope was introduced through the mouth and advanced to the second portion of the duodenum. Retroflexed views revealed no abnormalities The gastroscope was then slowly withdrawn and removed. STOMACH: There was erythematous moderate and erosive gastritis in the gastric antrum. A biopsy was performed using cold forceps. Sample obtained for microbiology. Sample sent for histology. ESOPHAGUS: There was LA Class C esophagitis noted. ADVERSE EVENTS: There were no complications. IMPRESSIONS: 1. There was erythematous gastritis in the gastric antrum; biopsy was performed 2. There was LA Class C esophagitis noted 3. Retroflexed views revealed no abnormalities RECOMMENDATIONS: 1. Anti-reflux regimen 2. Continue PPI PATIENT CONDITION: stable DISPOSITION: Inpatient REPEAT EXAM: Return 6 weeks EGD pending biopsy results Tammy Colbert MD eSigned: Tammy Colbert MD 09/06/2016 2:12 PM cc: PATIENT NAME: Kishor Garrison MR#: [id number]
[2016-09-06] MEDS ORDERED: MAGNESIUM CITRATE SOLN 300 ML BTL PO ONE ×2 (14:30→18:00)
[2016-09-06] MEDS ORDERED: KETAMINE HCL 500 MG/5 ML VIAL ONE (14:50)
--- NOTE | 2016-09-06 14:55 | GIPROC ---
[facility] [address] [facility]. [facility], [address] COLONOSCOPY PROCEDURE REPORT EXAM DATE: 09/06/2016 PATIENT NAME: Kishor Garrison MR #: [id number] BIRTHDATE: 1955 ENDOSCOPIST: Tammy Colbert MD ORDER #: [id number] BROOM WORKER: Nelson Mendoza and Balbir Mercer STATUS: inpatient INDICATIONS: The patient is a 61 yr old male here for a colonoscopy due to abdominal pain PROCEDURE PERFORMED: Colonoscopy, incomplete MEDICATIONS: None and Per Anesthesia. PREP QUALITY: suboptimal PREP TYPE:GoLytely ESTIMATED BLOOD LOSS: None CONSENT: The patient understands the risks and benefits of the procedure and understands that these risks include, but are not limited to: sedation, allergic reaction, infection, perforation and/or bleeding. Alternative means of evaluation and treatment include, among others: physical exam, x-rays, and/or surgical intervention. The patient elects to proceed with this endoscopic procedure. medical equipment was checked for proper function. Hand hygiene and appropriate measures for infection prevention was taken. After the risks, benefits and alternatives of the procedure were thoroughly explained, Informed consent was verified, confirmed and timeout was successfully executed by the treatment team. A digital exam The Pentax [id number] endoscope was introduced through the anus and advanced to the cecum, which was identified by both the appendix and ileocecal valve. The instrument was then slowly withdrawn as the colon was fully examined. COLON FINDINGS: Normal colon mucosa to splenic flexure. Unable to advnace beyond this area. Retroflexed views revealed internal hemorrhoids and Retroflexed views revealed medium internal hemorrhoids The scope was then completely withdrawn from the patient and the procedure terminated. PROCEDURE WITHDRAWAL TIME:7minutes ADVERSE EVENTS: There were no complications. IMPRESSIONS: 1. Normal colon mucosa to splenic flexure. Unable to advnace beyond this area 2. Retroflexed views revealed internal hemorrhoids 3. Retroflexed views revealed medium internal hemorrhoids RECOMMENDATIONS: 1. Continue surveillance 2. Yearly hemoccult 3. Xray for Small bowel follow through 4. Repeat colonoscopy tomorrow RECALL: Return 1 day Colonoscopy Tammy Colbert MD eSigned: Tammy Colbert MD 09/06/2016 2:55 PM cc: [id number]
[2016-09-06 16:00] VITALS: BP 106/60; PULSE 91; RESP 20; TEMP 98; O2SAT 96
[2016-09-06] MEDS: BISACODYL EC 5 MG TABEC PO SCH ×2 (17:34→21:00)
[2016-09-06] MEDS: ENOXAPARIN SODIUM 40 MG/0.4 ML SYRINGE SQ SCH (17:34)
--- NOTE | 2016-09-06 18:40 | PD.CAR.PN ---
CVT Progress Note Subjective/Hospital Course: Patient with waxing and waning abdominal pain for a while. CTA of abdomen reviewed. Patient does not have hemodynamically significant stenosis of the 3 main vessels (celiac axis, superior and inferior mesenteric arteries When I came to the floor patient was on the way to endoscopy and later when I came to endoscopy patient was anesthetized Will evaluate the patient is fully awake Based on the preliminary evaluation of clinical studies do not suspect an acute problem Full consult to follow once I catch up with the patient and get a chance to fully evaluate the patient Thanks J Objective: Vital Signs Date Time Temp Pulse Resp B/P Pulse Ox O2 Delivery O2 Flow Rate FiO2 09/06/16 16:00 98.0 91 20 106/60 96 09/06/16 14:21 101 20 131/80 94 09/06/16 14:15 102 20 138/82 86 09/06/16 14:10 97.7 102 18 145/77 85 09/06/16 12:00 98.1 92 20 116/65 93 09/06/16 08:45 Nasal Cannula 6.00 09/06/16 08:00 96.3 80 20 120/68 92 09/06/16 04:00 98.0 92 18 113/61 97 09/06/16 03:20 16 09/06/16 00:00 98.1 55 15 115/62 92 09/05/16 20:30 Nasal Cannula 4.00 09/05/16 20:00 98.5 52 15 111/59 91 Labs: Laboratory Tests Test 09/06/16 11:06 White Blood Count 20.6 TH/MM3 (4.0-11.0) Red Blood Count 5.36 MIL/MM3 (4.50-5.90) Hemoglobin 15.7 GM/DL (13.0-17.0) Hematocrit 47.6 % (39.0-51.0) Mean Corpuscular Volume 88.7 FL (80.0-100.0) Mean Corpuscular Hemoglobin 29.2 PG (27.0-34.0) Mean Corpuscular Hemoglobin 33.0 % Concent (32.0-36.0) Red Cell Distribution Width 14.0 % (11.6-17.2) Platelet Count 348 TH/MM3 (150-450) Mean Platelet Volume 7.7 FL (7.0-11.0) Neutrophils (%) (Auto) 82.1 % (16.0-70.0) Lymphocytes (%) (Auto) 7.3 % (9.0-44.0) Monocytes (%) (Auto) 9.6 % (0.0-8.0) Eosinophils (%) (Auto) 0.5 % (0.0-4.0) Basophils (%) (Auto) 0.5 % (0.0-2.0) Neutrophils # (Auto) 16.9 TH/MM3 (1.8-7.7) Lymphocytes # (Auto) 1.5 TH/MM3 (1.0-4.8) Monocytes # (Auto) 2.0 TH/MM3 (0-0.9) Eosinophils # (Auto) 0.1 TH/MM3 (0-0.4) Basophils # (Auto) 0.1 TH/MM3 (0-0.2) CBC Comment DIFF FINAL Differential Comment Result Diagram: 09/06/16 1106 09/05/16 0555 Ora Rangel MD Sep 06, 2016 18:40
[2016-09-06] MEDS ORDERED: SIMETHICONE 80 MG CHEWABLE TAB CHEW ONE (19:45)
[2016-09-06 22:00] VITALS: BP 105/57; PULSE 89; RESP 16; TEMP 97.8; O2SAT 94
[2016-09-07] VITALS (7 sets, daily range): BP systolic 97–116; BP diastolic 54–67; PULSE 87–97; RESP 16–24; TEMP 96.5–97.7; O2SAT 91–97
[2016-09-07] MEDS: metroNIDAZOLE 500 MG INJ 100 ML IV SCH ×3 (01:17→16:38)
[2016-09-07] MEDS: MORPHINE SULFATE 4 MG/ML INJ IV PUSH PRN ×5 (03:40→21:50)
[2016-09-07] MEDS: ONDANSETRON HCL 4 MG/2 ML VIAL IVP PRN ×3 (03:40→21:50)
[2016-09-07] MEDS: CIPROFLOXACIN 400 MG PREMIX 200 ML IV SCH ×2 (03:40→16:38)
[2016-09-07] MEDS: RESP: ALBUTEROL 2.5 MG/IPRATROPIUM 0.5 MG NEB (SCH) NEB ×4 (04:24→23:50)
[2016-09-07] MEDS: INSULIN ASPART SUPPLEMENTAL SCALE SQ SCH ×4 (07:00→21:55)
--- NOTE | 2016-09-07 08:24 | MB ---
cc: GAURAV WHITTINGTON DATE OF CONSULTATION 09/06/[address] Milady Saeed REASON FOR CONSULTATION Shortness of breath and COPD. HISTORY OF PRESENT ILLNESS Mr. Garrison is a 61-year-old white male with a history of chronic pancreatitis, hypertension, diabetes mellitus and COPD. The patient came to the hospital with abdominal pain going on for about a week or so. He has nausea and vomiting. The patient was seen by coremaking machine operator. He had a GI procedure done here. He was also being seen by Dr. Ora Rangel for evaluation of the hemodynamically significant stenosis of the three vessels in the abdomen. He has mild shortness of breath. No fever. He has no night sweats, nausea or vomiting. PAST MEDICAL HISTORY Significant for a history of: 1. COPD 2. Diabetes mellitus 3. History of gallstone cholelithiasis status post ERCP and balloon extraction. MEDICATIONS He is currently takin. Dulcolax 2. Zithromax 500 mg a day 3. Mucinex 60 mg twice a day 4. Loratadine 10 mg a day for Ms. 5. Flonase Nasal spray 6. Morphine for pain 7. Insulin coverage 8. Lovenox 40 mg a day ALLERGIES ALLERGIC TO PENICILLIN. SOCIAL HISTORY He has a long history of smoking and continues to smoke a half pack of cigarettes a day. History of alcohol use. 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 FAMILY HISTORY He is , lives alone. REVIEW OF SYSTEMS Denies any weight loss. No headache or dizziness. No malignancy. No DVT or pulmonary embolism. PHYSICAL EXAMINATION An elderly male who looks older than his stated age with mild short of breath not in acute distress. VITAL SIGNS: Blood pressure 106/60, heart rate 91, respirations 20, temperature 98. HEAD, EYES, EARS, NOSE, AND THROAT: Pupils are equal and reactive. Oral mucosa and nasal mucosa normal. NECK: JVP not raised. CHEST: He has a few rhonchi. CARDIOVASCULAR: S1 and S2 normal. ABDOMEN: Distended, tender. Bowel sounds are sluggish. EXTREMITIES: No edema. IMPRESSION 1. COPD 2. Nicotine use 3. Chronic pancreatitis 4. Abdominal pain 5. Diabetes mellitus PLAN We will give her aerosol treatment, Albuterol and Atrovent, supplement oxygen to keep the saturation greater than 90%. Continue antibiotic. Advised strongly to quit smoking. His GI and vascular work up in underway. Further treatment will depend on the course in the hospital. Thank you Dr. Milady Saeed for this consultation. MD JIN Guzman/WILMER /7:50 PM /7:12 AM
[2016-09-07] MEDS: FLUTICASONE PROPIONATE 50 MCG/ACT 16 GM NASAL SPRAY NASAL SCH ×2 (09:00→21:55)
--- NOTE | 2016-09-07 10:36 | HHI.PR ---
Subjective Remarks f/u for SOB and abdominal pain. patient stated abdominal pain improved but he does not want to get out of bed because of pain. SOB is the same and he continues to feel SOB. + cough. He remains afebrile. Denied any N/V. Objective Vitals Vital Signs Date Time Temp Pulse Resp B/P Pulse Ox O2 Delivery O2 Flow Rate FiO2 09/07/16 08:00 97.1 90 20 110/58 09/07/16 07:26 18 09/07/16 04:25 91 Nasal Cannula 5.00 09/07/16 03:52 97.0 90 18 96 09/07/16 01:15 97.7 87 16 116/57 96 09/06/16 22:00 97.8 89 16 105/57 94 09/06/16 20:25 Nasal Cannula 6.00 09/06/16 16:00 98.0 91 20 106/60 96 09/06/16 14:21 101 20 131/80 94 09/06/16 14:15 102 20 138/82 86 09/06/16 14:10 97.7 102 18 145/77 85 09/06/16 12:00 98.1 92 20 116/65 93 I/O 09/06/16 09/06/16 09/06/16 09/07/16 09/07/16 09/07/16 07:00 15:00 23:00 07:00 15:00 23:00 Intake Total 240 ml 300 ml Output Total 225 ml 1100 ml 300 ml Balance 15 ml -800 ml -300 ml Intake Oral 240 ml 0 ml IV Total 300 ml Output Urine Total 225 ml 200 ml 300 ml Emesis 900 ml # Bowel Movements 1 Result Diagram: 09/06/16 1106 09/05/16 0555 Objective Remarks GENERAL: in NAD CARDIOVASCULAR: Regular rate and rhythm without murmurs, gallops, or rubs. RESPIRATORY: Breath sounds equal bilaterally. No accessory muscle use. GASTROINTESTINAL: Abdomen soft, nondistended, left lower quadrant TTP. no peritoneal signs. MUSCULOSKELETAL: No cyanosis, or edema. BACK: Nontender without obvious deformity. No CVA tenderness. Medications and IVs Current Medications Acetaminophen/ Hydrocodone Bitart ([place] 5-325 Mg) 1 tab ONCE ONCE PO ; Start 09/02/16 at 13:30; Stop 09/02/16 at 13:31; Status DC Ondansetron HCl (Zofran Odt) 4 mg ONCE ONCE PO Last administered on 09/02/16 13:26; Start 09/02/16 at 13:30; Stop 09/02/16 at 13:31; Status DC Ketorolac Tromethamine (Toradol Inj) 60 mg ONCE ONCE IM Last administered on 13:37; Start 09/02/16 at 13:45; Stop 09/02/16 at 13:46; Status DC Diatrizoate Meglum/ Diatrizoate Sod ( Gastroview Liq) 18 ml STK-MED ONCE .ROUTE Last administered on 09/02/16 13:37; Start 09/02/16 at 13:35; Stop at 13:36; Status DC Ondansetron HCl (Zofran Inj) 4 mg ONCE ONCE IV PUSH ; Start 09/02/16 at 15:15; Stop 09/02/16 at 15:15; Status DC Morphine Sulfate (Morphine Inj) 4 mg ONCE ONCE IV PUSH Last administered on 15:20; Start 09/02/16 at 15:15; Stop 09/02/16 at 15:16; Status DC Morphine Sulfate (Morphine Inj) 4 mg ONCE ONCE IV PUSH ; Start 09/02/16 at 15:15 ; Stop 09/02/16 at 15:15; Status DC Ondansetron HCl (Zofran Inj) 4 mg ONCE ONCE IVP ; Start 09/02/16 at 15:15; Stop 09/02/16 at 15:15; Status DC IV Flush (NS Flush) 2 ml UNSCH PRN IVF FLUSH AFTER USING IV ACCESS Last administered on 09/02/16 15:20; Start 09/02/16 at 15:15; Stop 09/02/16 at 18:03; Status DC Iohexol 100 ml 100 ml STK-MED ONCE IV Last administered on 09/02/16 15:57; Start 09/02/16 at 15:57; Stop 09/02/16 at 15:58; Status DC Ciprofloxacin/ Dextrose 200 ml @ 200 mls/hr ONCE ONCE IV Last administered on 09/02/16 16:48; Start 09/02/16 at 16:45; Stop 09/02/16 at 17:44; Status DC Metronidazole 100 ml @ 100 mls/hr ONCE ONCE IV Last administered on 09/02/16 16:48; Start 09/02/16 at 16:45; Stop 09/02/16 at 17:44; Status DC Sodium Chloride (NS 1000 ml Inj) 1,000 ml @ 100 mls/hr Q10H IV Last administered on 09/06/16 22:23; Start 09/02/16 at 18:00 IV Flush (NS Flush) 2 ml UNSCH PRN FLUSH FLUSH AFTER USING IV ACCESS; Start 09/02/16 at 17:45 IV Flush (NS Flush) 2 ml BID FLUSH Last administered on 09/06/16 21:01; Start 09/02/16 at 21:00 Acetaminophen (Tylenol) 650 mg Q4H PRN PO TEMP > 100.4; Start 09/02/16 at 17:45 Ondansetron HCl (Zofran Inj) 4 mg Q6H PRN IVP NAUSEA OR VOMITING Last administered on 09/07/16 03:40; Start 09/02/16 at 17:45 Magnesium Hydroxide (Milk Of Magnesia Liq) 30 ml Q12H PRN PO CONSTIPATION; Start 09/02/16 at 17:45 Enoxaparin Sodium (Lovenox Inj) 40 mg Q24H SQ Last administered on 09/06/16 17 :34; Start 09/02/16 at 17:45 Naloxone HCl 0.4 mg 0.4 mg UNSCH PRN IV SEE LABEL COMMENTS; Start 09/02/16 at 17 :45 Ciprofloxacin/ Dextrose 200 ml @ 200 mls/hr Q12H IV Last administered on 03:40; Start 09/03/16 at 04:00 Metronidazole (Flagyl 500 Mg Inj) 100 ml @ 100 mls/hr Q8H IV Last administered on 09/07/16 06:55; Start 09/02/16 at 23:00 Lisinopril (Prinivil) 10 mg DAILY PO Last administered on 09/04/16 07:52; Start 09/03/16 at 09:00 Dextrose (D50w (Vial) Inj) 25 ml UNSCH PRN IV PUSH HYPOGLYCEMIA-SEE COMMENTS; Start 09/02/16 at 18:45 Glucagon (Glucagon Inj) 1 mg UNSCH PRN OTHER HYPOGLYCEMIA-SEE COMMENTS; Start 09/02/16 at 18:45 Insulin Aspart (NovoLOG SUPPLEMENTAL SCALE) 1 ACHS SLIDING SCALE SQ Last administered on 09/02/16 20:25; Start 09/02/16 at 21:00 Morphine Sulfate (Morphine Inj) 2 mg Q3H PRN IV PUSH PAIN 1-5; Start 09/03/16 at 00:30; Stop 09/04/16 at 11:01; Status DC Morphine Sulfate (Morphine Inj) 4 mg Q3H PRN IV PUSH PAIN 6-10 Last administered on 09/04/16 09:49; Start 09/03/16 at 00:30; Stop 09/04/16 at 11:01 ; Status DC Ketorolac Tromethamine (Toradol Inj) 30 mg ONCE ONCE IV PUSH Last administered on 09/03/16 03:50; Start 09/03/16 at 02:15; Stop 09/03/16 at 02:16 ; Status DC Iohexol (Omnipaque 350 Inj) 76 ml STK-MED ONCE IV Last administered on 09:15; Start 09/04/16 at 09:15; Stop 09/04/16 at 09:16; Status DC Hydromorphone HCl (Dilaudid Pf Inj) 1 mg Q3HR PRN IV PUSH PAIN SCALE 6 TO 10 Last administered on 09/04/16 11:55; Start 09/04/16 at 12:00; Stop 09/04/16 at 13:18; Status DC Morphine Sulfate (Morphine Inj) 2 mg Q3H PRN IV PUSH PAIN SCALE 1 TO 6; Start 09/04/16 at 14:00 Morphine Sulfate (Morphine Inj) 4 mg Q3H PRN IV PUSH PAIN SCALE 7 TO 10 Last administered on 09/07/16 06:58; Start 09/04/16 at 13:30 Polyethylene Glycol/ Electrolytes (Colyte Liq) 4,000 ml ONCE ONCE PO Last administered on 09/05/16 16:40; Start 09/05/16 at 16:00; Stop 09/05/16 at 16:01 ; Status DC Promethazine HCl (Phenergan Supp) 25 mg Q6H PRN RECTAL NAUSEA OR VOMITING Last administered on 09/04/16 17:06; Start 09/04/16 at 16:45; Stop 09/05/16 at 21:00 ; Status DC Fluticasone Propionate (Flonase Anuj Spr) 1 spray BID NASAL Last administered on 09/06/16 22:24; Start 09/05/16 at 12:00 Loratadine (Claritin) 10 mg DAILY PO ; Start 09/06/16 at 09:00 Promethazine HCl 25 mg 25 mg ONCE ONCE PO Last administered on 09/05/16 22:04 ; Start 09/05/16 at 21:00; Stop 09/05/16 at 21:22; Status DC Azithromycin/ Sodium Chloride (Zithromax Inj/ NS 250 ml Inj) 250 ml @ 250 mls/ hr Q24H IV Last administered on 09/06/16 10:30; Start 09/06/16 at 11:00 Guaifenesin (Mucinex Er) 600 mg BID PO Last administered on 09/06/16 21:00; Start 09/06/16 at 11:00 Magnesium Citrate (Citroma Liq) 300 ml ONCE ONCE PO Last administered on 14:54; Start 09/06/16 at 14:30; Stop 09/06/16 at 14:31; Status DC Magnesium Citrate (Citroma Liq) 300 ml ONCE ONCE PO ; Start 09/06/16 at 18:00; Stop 09/06/16 at 18:01; Status DC Bisacodyl (Dulcolax Ec) 10 mg DAILY@18,21 PO Last administered on 09/06/16 21: 00; Start 09/06/16 at 18:00; Stop 09/06/16 at 21:01; Status DC Etomidate (Amidate Inj) 20 mg STK-MED ONCE IV PUSH ; Start 09/06/16 at 13:56; Stop 09/06/16 at 14:33; Status DC Ketamine HCl (Ketalar Inj) 500 mg STK-MED ONCE .ROUTE ; Start 09/06/16 at 14:50 ; Stop 09/06/16 at 14:51; Status DC Simethicone (Mylicon Chew) 80 mg ONCE ONCE CHEW Last administered on 22:23; Start 09/06/16 at 19:45; Stop 09/06/16 at 19:46; Status DC Albuterol/ Ipratropium (Duoneb Neb) 1 ampule Q6HR NEB NEB Last administered on 09/07/16t 10:29; Start 09/06/16 at 22:00 A/P Assessment and Plan 61-year-old male with acute abdominal pain Acute abdominal pain -CT scan showed possible enteritis versus ischemic bowel. -Patient was given Cipro and Flagyl will continue with current regimen. -GI consulted and will do EGD and colonoscopy today. -CTA of abdomen did not show stenosis. -vascular consulted and stated no indication from surgery from him. -EGD on 09/06 showed esophagitis and gastritis. colonoscopy to be repeated today. -continue monitor with serial abdominal exam, given IV fluids and pain control. Acute Hypoxia -most likely due to a mucus plug. clinically doing well. -cxr reviewed and not impress. -pulm consulted and ff. Allergic rhinitis -on Flonase and Claritin. Type 2 diabetes - glipizide held and now on SSI. - on hypoglycemic protocol. Hyponatremia -Asymptomatic. -May be secondary to dehydration. -Continue to monitor sodium. Hypertension -continue home medication. DVT prophylaxis -Lovenox Discharge Planning patient will have repeat colonoscopy. He continues to be symptomatic with mild improvement. Milady Saeed MD Sep 07, 2016 10:36
[2016-09-07] MEDS: LISINOPRIL 10 MG TAB PO SCH (11:27)
[2016-09-07] MEDS: LORATADINE 10 MG TAB PO SCH (11:27)
[2016-09-07] MEDS: guaiFENesin E.R. 600 MG TAB PO SCH ×2 (11:27→21:56)
[2016-09-07] MEDS: SODIUM CHLORIDE 0.9% FLUSH 5 ML FLUSH FLUSH SCH ×2 (11:28→21:57)
[2016-09-07] MEDS: AZITHROMYCIN INJ 500 MG in SODIUM CHLOR 0.9% 250 ML INJ 250 ML IV SCH (11:29)
[2016-09-07] MEDS: ENOXAPARIN SODIUM 40 MG/0.4 ML SYRINGE SQ SCH (16:36)
--- NOTE | 2016-09-07 17:27 | HHI.GIFU ---
Subjective Remarks Still having loose stools, some abdominal tenderness (Nayeli Magallanes) Objective Vitals I&O Vital Signs Date Time Temp Pulse Resp B/P Pulse Ox O2 Delivery O2 Flow Rate FiO2 09/07/16 16:00 96.5 94 20 100/67 92 09/07/16 12:00 97.3 93 24 97/54 94 09/07/16 10:35 Nasal Cannula 5.00 09/07/16 08:00 97.1 90 20 110/58 09/07/16 07:26 18 09/07/16 04:25 91 Nasal Cannula 5.00 09/07/16 03:52 97.0 90 18 96 09/07/16 01:15 97.7 87 16 116/57 96 09/06/16 22:00 97.8 89 16 105/57 94 09/06/16 20:25 Nasal Cannula 6.00 I/O 09/06/16 09/06/16 09/06/16 09/07/16 09/07/16 09/07/16 07:00 15:00 23:00 07:00 15:00 23:00 Intake Total 240 ml 300 ml 0 ml Output Total 225 ml 1100 ml 300 ml 200 ml Balance 15 ml -800 ml -300 ml -200 ml Intake Oral 240 ml 0 ml 0 ml IV Total 300 ml Output Urine Total 225 ml 200 ml 300 ml 200 ml Emesis 900 ml # Bowel Movements 1 Laboratory Date/Time Procedure Status Source Growth 09/06/16 00:20 Cryptosporidium Exam - Final Complete Stool Stool NEGATIVE - NO CRYPTOSPORIDIUM ANTIGEN... 09/06/16 00:20 Stool Pus ([facility]WIN) - Final Complete Stool Stool FEW WBC'S 09/06/16 00:20 Giardia Antigen ([facility]WIN) - Final Complete Stool Stool NEGATIVE - NO GIARDIA ANTIGEN DETECTE... Imaging Last Impressions Chest X-Ray 09/05/16 0000 Signed Impressions: Service Date/Time: Monday, September 05, 2016 13:24 - CONCLUSION: 1. At least mild right pleural effusion. 2. Chronic emphysematous and interstitial disease. Gumaro Schuster MD Abdomen/Pelvis CT 09/04/16 0600 Signed Impressions: Service Date/Time: Sunday, September 04, 2016 09:06 - CONCLUSION: 1. Atherosclerotic change without a significant area of stenosis. 2. Inflammatory change in the mesentery in the left upper abdomen. Gumaro Schuster MD Physical Exam HEENT: PERRLA. Normocephalic; atraumatic; no jaundice. NECK: Neck is supple, no JVD, no lymphadenopathy. CHEST: CTA CARDIAC: RRR with no murmur gallop or rubs. ABDOMEN: Soft, distended, diffused tenderness to touch; no hepatosplenomegaly; bowel sounds are present x 4 quadrants EXTREMITIES: No clubbing, cyanosis, or edema. SKIN: Rash to upper extremities and lower abdomen RADIO DIRECTOR: No focal deficits; A&O x3. (Nayeli Magallanes) Assessment and Plan Plan ASSESSMENT: - Acute abdominal pain-/ LLQ, Abdominal pain that started on Tuesday. CTA ()----> atherosclerotic changes without a significant area of stenosis, inflammatory change in the mesentery in the left upper abdomen Pt had a CT Abd/pelvis at admission which noted Proximal small bowel ileus with significant intestinal and sarina-intestinal inflammation characteristic of acute enteritis. Ischemic bowel cannot be excluded. Cholelithiasis. Pancreatic calcification characteristic of chronic pancreatitis. Significant atherosclerotic vascular disease especially involving the origin of the SMA. Free fluid in the pelvis without evidence of loculated collections to suggest abscess formation. Colonoscopy was many years ago up [place], per patient. - ?ischemic bowel vs acute enteritis. CTA (09/04/16) as above. - Chronic pancreatitis- History of chronic pancreatitis reportedly secondary to alcohol abuse. He states he has cut back and now he only drinks on the weekends , last drink was on Tuesday - Leukocytosis- 09/06-WBC's 20.6 H&H 15.7/47.6 - Tobacco abuse - DM, HTN per attending - colonoscopy done on 09/06/16 showed Normal colon mucosa to splenic flexure. Unable to advance beyond this area. Retroflexed views revealed internal hemorrhoids and Retroflexed views revealed medium internal hemorrhoids a recall colonoscopy was recommended and patient declined the prep. EGD showed here was erythematous gastritis in the gastric antrum; biopsy was performed . There was LA Class C esophagitis noted, Retroflexed views revealed no abnormalities. Still has abdominal tenderness today, loose stools PLAN: - Full liquid diet - Cont. Cipro and Flagy/l - SBFT in am - Am labs - Supportive care - Further recommendations to follow based on results of above. Patient seen and examined by Dr. Colbert and myself and this note is written on his behalf. (Nayeli Magallanes) Physician Comments Seen and examined with LOOM FIXER SUPERVISOR, unable to do colonoscopy due to pts. inability to do prep. SBFT ordered. (Tammy Colbert MD) Nayeli Magallanes Sep 07, 2016 17:27 Tammy Colbert MD Sep 07, 2016 18:07
[2016-09-07] MEDS: SODIUM CHLOR 0.9% 1000 ML INJ 1,000 ML IV SCH (18:00)
--- NOTE | 2016-09-07 19:58 | HHI.PR ---
Subjective Remarks 61 YOWM with Pancreatitis,COPD,Nicotine use has Abd pain Breathing betetr no fever Objective Vital Signs Vital Signs Date Time Temp Pulse Resp B/P Pulse Ox O2 Delivery O2 Flow Rate FiO2 09/07/16 16:00 96.5 94 20 100/67 92 09/07/16 12:00 97.3 93 24 97/54 94 09/07/16 10:35 Nasal Cannula 5.00 09/07/16 08:00 97.1 90 20 110/58 09/07/16 07:26 18 09/07/16 04:25 91 Nasal Cannula 5.00 09/07/16 03:52 97.0 90 18 96 09/07/16 01:15 97.7 87 16 116/57 96 09/06/16 22:00 97.8 89 16 105/57 94 09/06/16 20:25 Nasal Cannula 6.00 I/O 09/06/16 09/06/16 09/06/16 09/07/16 09/07/16 09/07/16 07:00 15:00 23:00 07:00 15:00 23:00 Intake Total 240 ml 300 ml 0 ml Output Total 225 ml 1100 ml 300 ml 200 ml Balance 15 ml -800 ml -300 ml -200 ml Intake Oral 240 ml 0 ml 0 ml IV Total 300 ml Output Urine Total 225 ml 200 ml 300 ml 200 ml Emesis 900 ml # Bowel Movements 1 Result Diagram: 09/06/16 1106 09/05/16 0555 Objective Remarks GENERAL: MBMN WM with Mild sob SKIN: Warm and dry. HEAD: Normocephalic. EYES: No scleral icterus. No injection or drainage. NECK: Supple, trachea midline. No JVD or lymphadenopathy. CARDIOVASCULAR: Regular rate and rhythm without murmurs, gallops, or rubs. RESPIRATORY: Breath sounds equal bilaterally. No accessory muscle use. GASTROINTESTINAL: Abdomen soft, non-tender, nondistended. Distended, tender MUSCULOSKELETAL: No cyanosis, or edema. BACK: Nontender without obvious deformity. No CVA tenderness. A/P Assessment and Plan COPD Nicotine Pancreatitis DM PLAN: Aerosol nebs Cont Abx Supplement 02 GI following pt. Velasquez Hill MD Sep 07, 2016 19:58
[2016-09-08] VITALS (9 sets, daily range): BP systolic 62–140; BP diastolic 38–75; PULSE 61–112; RESP 17–32; TEMP 96.5–97.8; O2SAT 82–98
[2016-09-08] MEDS: metroNIDAZOLE 500 MG INJ 100 ML IV SCH ×4 (01:00→21:35)
[2016-09-08] MEDS: MORPHINE SULFATE 4 MG/ML INJ IV PUSH PRN ×3 (03:18→09:05)
[2016-09-08] MEDS: ONDANSETRON HCL 4 MG/2 ML VIAL IVP PRN ×2 (03:18→09:04)
[2016-09-08] MEDS: CIPROFLOXACIN 400 MG PREMIX 200 ML IV SCH ×2 (03:19→16:26)
[2016-09-08] MEDS: SODIUM CHLOR 0.9% 1000 ML INJ 1,000 ML IV SCH ×2 (03:24→14:00)
[2016-09-08] MEDS: RESP: ALBUTEROL 2.5 MG/IPRATROPIUM 0.5 MG NEB (SCH) NEB ×2 (04:02→15:42)
[2016-09-08] MEDS: INSULIN ASPART SUPPLEMENTAL SCALE SQ SCH ×3 (06:44→16:00)
--- NOTE | 2016-09-08 07:18 | MB ---
cc: ORA GRACE MD DATE OF CONSULTATION 09/06/[address] Grace REASON FOR CONSULTATION Abdominal pain, pancreatitis, possible stenosis of the mesenteric arteries. HISTORY OF PRESENT DISEASE This is a 61-year-old male who appears much older than his actual age presents to the hospital with intractable abdominal pain. The patient had some nausea resolved with food. Did not vomit, however, keeps spitting up saliva while I was in the room. The patient has been admitted a few days ago, underwent workup and on CT of the abdomen and pelvis was noted to have questionable density in the left upper quadrant, hence the consultation to rule out mesenteric ischemia. PAST MEDICAL HISTORY 1. Diabetes mellitus 2. Chronic recurrent pancreatitis. 3. Hypertension 4. COPD PAST SURGICAL HISTORY The surgical history is that of stent placement in the spleen. MEDICATIONS At some point, medications can be found on the record. SOCIAL HISTORY The patient is a . He smokes a pack a day and drinks alcohol. PHYSICAL EXAM Physical examination reveals a 61-year-old male appearing much older than his actual age. HEAD, EYES, EARS, NOSE, AND THROAT: Normocephalic. No trauma to the head. Pupils equally reactive. Extraocular muscles intact. NECK: Bilateral carotid pulses and bilateral carotid faint bruits. CHEST: Bilateral breath sounds decreased over both lung rothman. The patient also has pulmonary cachexia with atrophy of the musculature over the chest wall. HEART: Regular rhythm. ABDOMEN: Soft. Active bowel sounds. On palpation, he is tender sort of in all four quadrants slightly more in the left upper quadrant, but no guarding or rebound is noted. Pelvis is stable. EXTREMITIES: Grossly within normal limits, but he does not have acute vascular deficit. Proximal pulses palpable, distal pulses only by Doppler. BACK: The patient states that he has a very bad back and does not want to turn to back when examined, but is lying sort of snf sideways. IMPRESSION/RECOMMENDATIONS I reviewed laboratory diagnostic procedures. As far as the vasculature and blood supply to the intestinal tract is concerned, the patient has fairly patent celiac axis, superior and inferior mesenteric arteries and there is no indication the patient has either acute or chronic ischemia to the intestine. He does have sort of a glass ground appearance looking density in the left upper quadrant which to me looks like an infarct of the mesentery or perhaps omentum causing the pain. It does not appear the bowel is involved with this, but certainly the haziness and streaking of the area indicates some sort of inflammatory process. This would not be an operative problem, unless it turned into a bigger issue of questionable bowel viability which I do not see happening. Therefore at this point, there is no indication for either surgical exploration or any further type of vascular workup of the intestinal tract. Thank you very much for your referral. Ora MEADOWS/WILMER /7:16 PM /7:11 AM
[2016-09-08 07:51] LABS: BASOPHIL # 0.1 TH/MM3 (0-0.2); BASOPHIL % 0.4 % (0.0-2.0); EOSINOPHIL # 0.4 TH/MM3 (0-0.4); EOSINOPHIL % 2.3 % (0.0-4.0); HEMATOCRIT 46.2 % (39.0-51.0); HEMO FLAGS DIFF FINAL; LYMPH % 6.9 % (9.0-44.0); LYMPHOCYTE # 1.2 TH/MM3 (1.0-4.8); MEAN CELL VOLUME 87.8 FL (80.0-100.0); MEAN CORPUSCULAR HEMOGLOBIN 29.1 PG (27.0-34.0); MEAN CORPUSCULAR HGB CONC 33.2 % (32.0-36.0); MONO % 9.8 % (0.0-8.0); NEUT % 80.6 % (16.0-70.0); PLATELET COUNT 357 TH/MM3 (150-450); RED BLOOD COUNT 5.26 MIL/MM3 (4.50-5.90); RED CELL DISTRIBUTION WIDTH 13.9 % (11.6-17.2); WHITE BLOOD COUNT 17.4 TH/MM3 (4.0-11.0)
[2016-09-08 08:17] LABS: BICARBONATE 34.7 MEQ/L (21.0-32.0); POTASSIUM 3.9 MEQ/L (3.5-5.1)
[2016-09-08] MEDS: SODIUM CHLORIDE 0.9% FLUSH 5 ML FLUSH FLUSH SCH ×2 (09:00→23:06)
[2016-09-08] MEDS: LISINOPRIL 10 MG TAB PO SCH (09:00)
[2016-09-08] MEDS: FLUTICASONE PROPIONATE 50 MCG/ACT 16 GM NASAL SPRAY NASAL SCH ×2 (09:00→23:06)
[2016-09-08] MEDS: LORATADINE 10 MG TAB PO SCH (09:00)
[2016-09-08] MEDS: guaiFENesin E.R. 600 MG TAB PO SCH ×2 (09:00→21:00)
--- NOTE | 2016-09-08 10:28 | HHI.GIFU ---
Subjective Remarks Resting in bed. States he has been having nausea/vomiting throughout the night. Continues to have abdominal pain. States he had a bowel movement last night. (Rocio Carcamo) Objective Vitals I&O Vital Signs Date Time Temp Pulse Resp B/P Pulse Ox O2 Delivery O2 Flow Rate FiO2 09/08/16 08:00 97.7 100 22 140/73 97 09/08/16 04:00 97.7 81 17 105/65 97 09/08/16 00:00 97.0 61 18 104/54 98 09/07/16 23:50 Nasal Cannula 6.00 09/07/16 20:00 96.9 97 18 99/57 97 09/07/16 16:00 96.5 94 20 100/67 92 09/07/16 12:00 97.3 93 24 97/54 94 09/07/16 10:35 Nasal Cannula 5.00 I/O 09/07/16 09/07/16 09/07/16 09/08/16 09/08/16 09/08/16 07:00 15:00 23:00 07:00 15:00 23:00 Intake Total 0 ml 150 ml 4280 ml Output Total 200 ml 150 ml 325 ml Balance -200 ml 0 ml 3955 ml Intake Oral 0 ml 150 ml IV Total 4280 ml Output Urine Total 200 ml 150 ml 325 ml Laboratory Laboratory Tests Test 09/08/16 07:22 White Blood Count 17.4 Red Blood Count 5.26 Hemoglobin 15.3 Hematocrit 46.2 Mean Corpuscular Volume 87.8 Mean Corpuscular Hemoglobin 29.1 Mean Corpuscular Hemoglobin 33.2 Concent Red Cell Distribution Width 13.9 Platelet Count 357 Mean Platelet Volume 7.8 Neutrophils (%) (Auto) 80.6 Lymphocytes (%) (Auto) 6.9 Monocytes (%) (Auto) 9.8 Eosinophils (%) (Auto) 2.3 Basophils (%) (Auto) 0.4 Neutrophils # (Auto) 14.0 Lymphocytes # (Auto) 1.2 Monocytes # (Auto) 1.7 Eosinophils # (Auto) 0.4 Basophils # (Auto) 0.1 CBC Comment DIFF FINAL Differential Comment Sodium Level 132 Potassium Level 3.9 Chloride Level 87 Carbon Dioxide Level 34.7 Anion Gap 10 Blood Urea Nitrogen 9 Creatinine 0.34 Estimat Glomerular Filtration 266 Rate Random Glucose 162 Calcium Level 7.6 Date/Time Procedure Status Source Growth 09/06/16 00:20 Cryptosporidium Exam - Final Complete Stool Stool NEGATIVE - NO CRYPTOSPORIDIUM ANTIGEN... 09/06/16 00:20 Stool Pus (EDWIN) - Final Complete Stool Stool FEW WBC'S 09/06/16 00:20 Giardia Antigen (EDWIN) - Final Complete Stool Stool NEGATIVE - NO GIARDIA ANTIGEN DETECTE... Imaging Last Impressions Chest X-Ray 09/05/16 0000 Signed Impressions: Service Date/Time: Monday, September 05, 2016 13:24 - CONCLUSION: 1. At least mild right pleural effusion. 2. Chronic emphysematous and interstitial disease. Gumaro Schuster MD Abdomen/Pelvis CT 09/04/16 0600 Signed Impressions: Service Date/Time: Sunday, September 04, 2016 09:06 - CONCLUSION: 1. Atherosclerotic change without a significant area of stenosis. 2. Inflammatory change in the mesentery in the left upper abdomen. Gumaro Schuster MD Physical Exam HEENT: PERRLA. Normocephalic; atraumatic; no jaundice. CHEST: CTA CARDIAC: RRR with no murmur gallop or rubs. ABDOMEN: Distended, mild diffuse tenderness; no hepatosplenomegaly; bowel sounds are hypoactive. EXTREMITIES: No clubbing, cyanosis, or edema. SKIN: Skin warm and dry PROOFER APPRENTICE: Lethargic. (Rocio Carcamo) Assessment and Plan Plan ASSESSMENT: - Acute abdominal pain, LLQ, Abdominal pain that started on Tuesday. CT Abdomen and pelivs (09/02/16)----> Proximal small bowel ileus with significant intestinal and sarina-intestinal inflammation characteristic of acute enteritis. Ischemic bowel cannot be excluded, cholelithiasis, pancreatic calcification characteristic of chronic pancreatitis, significant atherosclerotic vascular disease especially involving the origin of the SMA, free fluid in the pelvis without evidence of loculated collections to suggest abscess formation. CTA (09/04/16)----> 1. Atherosclerotic change without a significant area of stenosis. 2. Inflammatory change in the mesentery in the left upper abdomen. Pancreatic calcification characteristic of chronic pancreatitis. Significant atherosclerotic vascular disease especially involving the origin of the SMA. Free fluid in the pelvis without evidence of loculated collections to suggest abscess formation. S/P EGD (09/06/16)-----> There was erythematous gastritis in the gastric antrum, LA Class esophagitis, retroflexed views revealed no abnormalities. Pathology pending. PPI. Rpt. EGD 6 weeks pending biopsy results. Incomplete colonoscopy (09/06/16)----> normal colon mucosa to splenic flexure, unable to advance beyond this area, retroflexed views revealed medium internal hemorrhoids. Rpt colonoscopy was recommended, but pt refused bowel prep. Stool studies negative for cryptosporidium, giardia, cdiff. Stool with few wbc. S/P GS evaluation- no surgical plans. Today, patient continues to have distention, nausea/vomiting- now with bilious material, abdominal pain. Persistent leukocytosis with WBC 17.4. VSS. + BM. Going for SBFT today. Will have nurse place NGT to LIWS. ?ischemic enteritis- S/P GS evaluation, does not believe there is any ischemic bowel. - Chronic pancreatitis with calcifications. Pt with history of chronic pancreatitis reportedly secondary to alcohol abuse. - Leukocytosis, persistent. WBC 17.4. - DM, HTN per attending PLAN: - Insert NGT and place to LIWS - NPO - SBFT today to r/o obstruction- d/w patient - Cont. Cipro and Flagy/l - Monitor labs - Supportive care - Refusing bowel prep for repeat colonoscopy - S/P GS evaluation, no surgical plans - Further recommendations to follow based on results of above. - Patient seen and examined by Dr. Colbert and myself and this note is written on his behalf. (Rocio Carcamo) Physician Comments Seen and examined with Ms. Dona BOND, worsening abdominal pain and distension with bilious vomitting. Unable to place NG, colonoscopy not possible due to pts. refusal to do bowel prep. SBFT pending. Discussed with DR. Segura he will see pt. again today. NPO. (Tammy Colbert MD) Rocio Carcamo Sep 08, 2016 10:28 Tammy Colbert MD Sep 08, 2016 15:09
[2016-09-08] MEDS ORDERED: SODIUM CHLOR 0.9% 1000 ML INJ 1,000 ML IV ONE (10:45)
[2016-09-08] MEDS ORDERED: MAGNESIUM CITRATE SOLN 300 ML BTL PO ONE ×2 (12:00→18:00)
--- NOTE | 2016-09-08 12:14 | HHI.PR ---
Subjective Remarks f/u for abdominal pain. patient now has bilious vomiting. + uncontrolled abdominal pain. asking if can get pain meds more after. remains afebrile. nurse at bedside. nurse attempt to put NG tube in but failed twice. Objective Vitals Vital Signs Date Time Temp Pulse Resp B/P Pulse Ox O2 Delivery O2 Flow Rate FiO2 09/08/16 10:14 90 Nasal Cannula 5.00 09/08/16 08:00 97.7 100 22 140/73 97 09/08/16 04:00 97.7 81 17 105/65 97 09/08/16 00:00 97.0 61 18 104/54 98 09/07/16 23:50 Nasal Cannula 6.00 09/07/16 20:00 96.9 97 18 99/57 97 09/07/16 16:00 96.5 94 20 100/67 92 I/O 09/07/16 09/07/16 09/07/16 09/08/16 09/08/16 09/08/16 07:00 15:00 23:00 07:00 15:00 23:00 Intake Total 0 ml 150 ml 4280 ml Output Total 200 ml 150 ml 325 ml Balance -200 ml 0 ml 3955 ml Intake Oral 0 ml 150 ml IV Total 4280 ml Output Urine Total 200 ml 150 ml 325 ml Result Diagram: 09/08/1672109/08/16721 Objective Remarks GENERAL: in NAD but looks ill. CARDIOVASCULAR: Regular rate and rhythm without murmurs, gallops, or rubs. RESPIRATORY: No accessory muscle use. mild left LL wheezing. GASTROINTESTINAL: left lower quadrant TTP, + distended. no peritoneal signs. MUSCULOSKELETAL: No cyanosis, or edema. BACK: Nontender without obvious deformity. No CVA tenderness. Medications and IVs Current Medications Acetaminophen/ Hydrocodone Bitart (Berthold 5-325 Mg) 1 tab ONCE ONCE PO ; Start 09/02/16 at 13:30; Stop 09/02/16 at 13:31; Status DC Ondansetron HCl (Zofran Odt) 4 mg ONCE ONCE PO Last administered on 09/02/16 13:26; Start 09/02/16 at 13:30; Stop 09/02/16 at 13:31; Status DC Ketorolac Tromethamine (Toradol Inj) 60 mg ONCE ONCE IM Last administered on 13:37; Start 09/02/16 at 13:45; Stop 09/02/16 at 13:46; Status DC Diatrizoate Meglum/ Diatrizoate Sod (Md Jean Dave) 18 ml STK-MED ONCE .ROUTE Last administered on 09/02/16 13:37; Start 09/02/16 at 13:35; Stop at 13:36; Status DC Ondansetron HCl (Zofran Inj) 4 mg ONCE ONCE IV PUSH ; Start 09/02/16 at 15:15; Stop 09/02/16 at 15:15; Status DC Morphine Sulfate (Morphine Inj) 4 mg ONCE ONCE IV PUSH Last administered on 15:20; Start 09/02/16 at 15:15; Stop 09/02/16 at 15:16; Status DC Morphine Sulfate (Morphine Inj) 4 mg ONCE ONCE IV PUSH ; Start 09/02/16 at 15:15 ; Stop 09/02/16 at 15:15; Status DC Ondansetron HCl (Zofran Inj) 4 mg ONCE ONCE IVP ; Start 09/02/16 at 15:15; Stop 09/02/16 at 15:15; Status DC IV Flush (NS Flush) 2 ml UNSCH PRN IVF FLUSH AFTER USING IV ACCESS Last administered on 09/02/16 15:20; Start 09/02/16 at 15:15; Stop 09/02/16 at 18:03; Status DC Iohexol 100 ml 100 ml STK-MED ONCE IV Last administered on 09/02/16 15:57; Start 09/02/16 at 15:57; Stop 09/02/16 at 15:58; Status DC Ciprofloxacin/ Dextrose 200 ml @ 200 mls/hr ONCE ONCE IV Last administered on 09/02/16 16:48; Start 09/02/16 at 16:45; Stop 09/02/16 at 17:44; Status DC Metronidazole 100 ml @ 100 mls/hr ONCE ONCE IV Last administered on 09/02/16 16:48; Start 09/02/16 at 16:45; Stop 09/02/16 at 17:44; Status DC Sodium Chloride (NS 1000 ml Inj) 1,000 ml @ 100 mls/hr Q10H IV Last administered on 09/08/16 03:24; Start 09/02/16 at 18:00 IV Flush (NS Flush) 2 ml UNSCH PRN FLUSH FLUSH AFTER USING IV ACCESS Last administered on 09/08/16 06:43; Start 09/02/16 at 17:45 IV Flush (NS Flush) 2 ml BID FLUSH Last administered on 09/07/16 21:57; Start 09/02/16 at 21:00 Acetaminophen (Tylenol) 650 mg Q4H PRN PO TEMP > 100.4; Start 09/02/16 at 17:45 Ondansetron HCl (Zofran Inj) 4 mg Q6H PRN IVP NAUSEA OR VOMITING Last administered on 09/08/16 09:04; Start 09/02/16 at 17:45 Magnesium Hydroxide (Milk Of Magnesia Liq) 30 ml Q12H PRN PO CONSTIPATION; Start 09/02/16 at 17:45 Enoxaparin Sodium (Lovenox Inj) 40 mg Q24H SQ Last administered on 09/07/16 16 :36; Start 09/02/16 at 17:45 Naloxone HCl 0.4 mg 0.4 mg UNSCH PRN IV SEE LABEL COMMENTS; Start 09/02/16 at 17 :45 Ciprofloxacin/ Dextrose 200 ml @ 200 mls/hr Q12H IV Last administered on 03:19; Start 09/03/16 at 04:00 Metronidazole (Flagyl 500 Mg Inj) 100 ml @ 100 mls/hr Q8H IV Last administered on 09/08/16 06:29; Start 09/02/16 at 23:00 Lisinopril (Prinivil) 10 mg DAILY PO Last administered on 09/07/16 11:27; Start 09/03/16 at 09:00 Dextrose (D50w (Vial) Inj) 25 ml UNSCH PRN IV PUSH HYPOGLYCEMIA-SEE COMMENTS; Start 09/02/16 at 18:45 Glucagon (Glucagon Inj) 1 mg UNSCH PRN OTHER HYPOGLYCEMIA-SEE COMMENTS; Start 09/02/16 at 18:45 Insulin Aspart (NovoLOG SUPPLEMENTAL SCALE) 1 ACHS SLIDING SCALE SQ Last administered on 09/02/16 20:25; Start 09/02/16 at 21:00 Morphine Sulfate (Morphine Inj) 2 mg Q3H PRN IV PUSH PAIN 1-5; Start 09/03/16 at 00:30; Stop 09/04/16 at 11:01; Status DC Morphine Sulfate (Morphine Inj) 4 mg Q3H PRN IV PUSH PAIN 6-10 Last administered on 09/04/16 09:49; Start 09/03/16 at 00:30; Stop 09/04/16 at 11:01 ; Status DC Ketorolac Tromethamine (Toradol Inj) 30 mg ONCE ONCE IV PUSH Last administered on 09/03/16 03:50; Start 09/03/16 at 02:15; Stop 09/03/16 at 02:16 ; Status DC Iohexol (Omnipaque 350 Inj) 76 ml STK-MED ONCE IV Last administered on 09:15; Start 09/04/16 at 09:15; Stop 09/04/16 at 09:16; Status DC Hydromorphone HCl (Dilaudid Pf Inj) 1 mg Q3HR PRN IV PUSH PAIN SCALE 6 TO 10 Last administered on 09/04/16 11:55; Start 09/04/16 at 12:00; Stop 09/04/16 at 13:18; Status DC Morphine Sulfate (Morphine Inj) 2 mg Q3H PRN IV PUSH PAIN SCALE 1 TO 6; Start 09/04/16 at 14:00 Morphine Sulfate (Morphine Inj) 4 mg Q3H PRN IV PUSH PAIN SCALE 7 TO 10 Last administered on 09/08/16 09:05; Start 09/04/16 at 13:30 Polyethylene Glycol/ Electrolytes (Colyte Liq) 4,000 ml ONCE ONCE PO Last administered on 09/05/16 16:40; Start 09/05/16 at 16:00; Stop 09/05/16 at 16:01 ; Status DC Promethazine HCl (Phenergan Supp) 25 mg Q6H PRN RECTAL NAUSEA OR VOMITING Last administered on 09/04/16 17:06; Start 09/04/16 at 16:45; Stop 09/05/16 at 21:00 ; Status DC Fluticasone Propionate (Flonase Anuj Spr) 1 spray BID NASAL Last administered on 09/07/16 21:55; Start 09/05/16 at 12:00 Loratadine (Claritin) 10 mg DAILY PO Last administered on 09/07/16 11:27; Start 09/06/16 at 09:00 Promethazine HCl 25 mg 25 mg ONCE ONCE PO Last administered on 09/05/16 22:04 ; Start 09/05/16 at 21:00; Stop 09/05/16 at 21:22; Status DC Azithromycin/ Sodium Chloride (Zithromax Inj/ NS 250 ml Inj) 250 ml @ 250 mls/ hr Q24H IV Last administered on 09/07/16 11:29; Start 09/06/16 at 11:00; Stop 09/07/16 at 14:50; Status DC Guaifenesin (Mucinex Er) 600 mg BID PO Last administered on 09/07/16 21:56; Start 09/06/16 at 11:00 Magnesium Citrate (Citroma Liq) 300 ml ONCE ONCE PO Last administered on 14:54; Start 09/06/16 at 14:30; Stop 09/06/16 at 14:31; Status DC Magnesium Citrate (Citroma Liq) 300 ml ONCE ONCE PO ; Start 09/06/16 at 18:00; Stop 09/06/16 at 18:01; Status DC Bisacodyl (Dulcolax Ec) 10 mg DAILY@18,21 PO Last administered on 09/06/16 21: 00; Start 09/06/16 at 18:00; Stop 09/06/16 at 21:01; Status DC Etomidate (Amidate Inj) 20 mg STK-MED ONCE IV PUSH ; Start 09/06/16 at 13:56; Stop 09/06/16 at 14:33; Status DC Ketamine HCl (Ketalar Inj) 500 mg STK-MED ONCE .ROUTE ; Start 09/06/16 at 14:50 ; Stop 09/06/16 at 14:51; Status DC Simethicone (Mylicon Chew) 80 mg ONCE ONCE CHEW Last administered on 22:23; Start 09/06/16 at 19:45; Stop 09/06/16 at 19:46; Status DC Albuterol/ Ipratropium (Duoneb Neb) 1 ampule Q6HR NEB NEB Last administered on 09/07/16 23:50; Start 09/06/16 at 22:00 Magnesium Citrate (Citroma Liq) 300 ml ONCE ONCE PO ; Start 09/08/16 at 12:00; Stop 09/08/16 at 12:01; Status DC Magnesium Citrate (Citroma Liq) 300 ml ONCE ONCE PO ; Start 09/08/16 at 18:00; Stop 09/08/16 at 18:01 Bisacodyl (Dulcolax Ec) 10 mg ONCE ONCE PO ; Start 09/08/16 at 18:00; Stop at 18:01 Bisacodyl 10 mg 10 mg ONCE ONCE PO ; Start 09/08/16 at 21:00; Stop 09/08/16 at 21:01 Sodium Chloride (NS 1000 ml Inj) 1,000 ml @ 999 mls/hr BOLUS ONCE IV ; Start 09/08/16 at 10:45; Stop 09/08/16 at 11:45; Status DC A/P Assessment and Plan 61-year-old male with acute abdominal pain Acute abdominal pain now with bilious emesis -CT scan showed possible enteritis versus ischemic bowel. - on Cipro and Flagyl will continue with current regimen. -CTA of abdomen did not show stenosis. -vascular consulted and stated no indication from surgery from him. -EGD on 09/06 showed esophagitis and gastritis. colonoscopy was unsuccessful. need repeat but patient is refusing. -concerning for SBO due to bilious emesis now. NGT ordered for SBFT today to r/ o obstruction. unsuccessful attempt. Nurse will try again later today. -continue monitor with serial abdominal exam, given IV fluids and pain control. Acute Hypoxia -most likely due to aspiration for emesis. -cxr reviewed and not impress. -pulm consulted and ff. -no with mild wheezing. patient is on neb. Allergic rhinitis -on Flonase and Claritin. Type 2 diabetes - glipizide held and now on SSI. - on hypoglycemic protocol. Hyponatremia -Asymptomatic. -May be secondary to dehydration. -Continue to monitor sodium. Hypertension -continue home medication. DVT prophylaxis -Lovenox Discharge Planning patient clinically is doing worse. Colonoscopy was not successful and patient refusing repeat. Now most likely developed SBO. studies pending. Due to severity of illness he continues to require hospitalization. Milady Saeed MD Sep 08, 2016 12:14
--- NOTE | 2016-09-08 15:10 | PD.CAR.PN ---
CVT Progress Note Subjective/Hospital Course: Patient with waxing and waning abdominal pain for a while. CTA of abdomen reviewed. Patient does not have hemodynamically significant stenosis of the 3 main vessels (celiac axis, superior and inferior mesenteric arteries When I came to the floor patient was on the way to endoscopy and later when I came to endoscopy patient was anesthetized Will evaluate the patient is fully awake Based on the preliminary evaluation of clinical studies do not suspect an acute problem Full consult to follow once I catch up with the patient and get a chance to fully evaluate the patient Thanks Imelda 09/08/16 Patient felt tipping machine tender in all 4 quadrants somewhat distended with bilious vomiting May have partial small bowel obstruction but is quite unclear White count on its way down Patient definitely does not have mesenteric ischemia or any signs of hypoperfusion of the intestine Discussed with gastroenterology Will have general surgeon evaluated the patient, spoken to Dr. Henriquez Objective: Vital Signs Date Time Temp Pulse Resp B/P Pulse Ox O2 Delivery O2 Flow Rate FiO2 09/08/16 12:00 97.2 108 20 101/60 92 09/08/16 10:14 90 Nasal Cannula 5.00 09/08/16 08:00 97.7 100 22 140/73 97 09/08/16 04:00 97.7 81 17 105/65 97 09/08/16 00:00 97.0 61 18 104/54 98 09/07/16 23:50 Nasal Cannula 6.00 09/07/16 20:00 96.9 97 18 99/57 97 09/07/16 16:00 96.5 94 20 100/67 92 Labs: Laboratory Tests Test 09/08/16 07:22 White Blood Count 17.4 TH/MM3 (4.0-11.0) Red Blood Count 5.26 MIL/MM3 (4.50-5.90) Hemoglobin 15.3 GM/DL (13.0-17.0) Hematocrit 46.2 % (39.0-51.0) Mean Corpuscular Volume 87.8 FL (80.0-100.0) Mean Corpuscular Hemoglobin 29.1 PG (27.0-34.0) Mean Corpuscular Hemoglobin 33.2 % Concent (32.0-36.0) Red Cell Distribution Width 13.9 % (11.6-17.2) Platelet Count 357 TH/MM3 (150-450) Mean Platelet Volume 7.8 FL (7.0-11.0) Neutrophils (%) (Auto) 80.6 % (16.0-70.0) Lymphocytes (%) (Auto) 6.9 % (9.0-44.0) Monocytes (%) (Auto) 9.8 % (0.0-8.0) Eosinophils (%) (Auto) 2.3 % (0.0-4.0) Basophils (%) (Auto) 0.4 % (0.0-2.0) Neutrophils # (Auto) 14.0 TH/MM3 (1.8-7.7) Lymphocytes # (Auto) 1.2 TH/MM3 (1.0-4.8) Monocytes # (Auto) 1.7 TH/MM3 (0-0.9) Eosinophils # (Auto) 0.4 TH/MM3 (0-0.4) Basophils # (Auto) 0.1 TH/MM3 (0-0.2) CBC Comment DIFF FINAL Differential Comment Sodium Level 132 MEQ/L (136-145) Potassium Level 3.9 MEQ/L (3.5-5.1) Chloride Level 87 MEQ/L (98-107) Carbon Dioxide Level 34.7 MEQ/L (21.0-32.0) Anion Gap 10 MEQ/L (5-15) Blood Urea Nitrogen 9 MG/DL (7-18) Creatinine 0.34 MG/DL (0.60-1.30) Estimat Glomerular Filtration 266 ML/MIN Rate (>89) Random Glucose 162 MG/DL (74-106) Calcium Level 7.6 MG/DL (8.5-10.1) Result Diagram: 09/08/16 0722 09/08/16 0722 Ora Rangel MD Sep 08, 2016 15:10
[2016-09-08] MEDS: RESP: ALBUTEROL 1.25 MG/3 ML NEB (SCH) NEB ×2 (15:54→22:00)
[2016-09-08] MEDS ORDERED: SODIUM CHLORID 0.9% 500 ML INJ 500 ML IV ONE (17:30)
[2016-09-08 17:56] LABS: INDIRECT BILIRUBIN 0.2 MG/DL (0.0-0.8); TOTAL BILIRUBIN ADULT 0.3 MG/DL (0.2-1.0)
[2016-09-08] MEDS ORDERED: BISACODYL EC 5 MG TABEC PO ONE ×2 (18:00→21:00)
[2016-09-08 18:24] LABS: BASOPHIL # 0.1 TH/MM3 (0-0.2); BASOPHIL % 0.5 % (0.0-2.0); EOSINOPHIL # 0.1 TH/MM3 (0-0.4); EOSINOPHIL % 0.6 % (0.0-4.0); HEMATOCRIT 46.8 % (39.0-51.0); HEMO FLAGS DIFF FINAL; LYMPH % 7.5 % (9.0-44.0); LYMPHOCYTE # 1.8 TH/MM3 (1.0-4.8); MEAN CELL VOLUME 90.1 FL (80.0-100.0); MEAN CORPUSCULAR HEMOGLOBIN 30.1 PG (27.0-34.0); MEAN CORPUSCULAR HGB CONC 33.4 % (32.0-36.0); MONO % 8.4 % (0.0-8.0); PLATELET COUNT 438 TH/MM3 (150-450); RED CELL DISTRIBUTION WIDTH 14.2 % (11.6-17.2); WHITE BLOOD COUNT 24.1 TH/MM3 (4.0-11.0)
[2016-09-08 18:33] LABS: INTERNATIONAL NORMALIZED RATIO 1.6 RATIO; PROTHROMBIN TIME - PATIENT 18.4 SEC (9.8-11.6)
[2016-09-08 18:43] LABS: ALT (GPT) 212 U/L (12-78); ANION GAP 16 MEQ/L (5-15); AST (GOT) 176 U/L (15-37); BICARBONATE 28.4 MEQ/L (21.0-32.0); BLOOD UREA NITROGEN 14 MG/DL (7-18); CHLORIDE 90 MEQ/L (98-107); GLOMERULAR FILTRATION RATE 115 ML/MIN (>89); SODIUM (NA) 134 MEQ/L (136-145)
--- NOTE | 2016-09-08 18:46 | RADRPT ---
EXAM DATE/TIME: 09/08/2016 18:14 [facility] COMPARISON: ABDOMEN KUB ONLY, December 25, 2014, 9:55. INDICATIONS : Abdominal pain, distention. MEDICAL HISTORY : Pancreatitis. Hypertension. Chronic obstructive pulmonary disease. Diabetes. GERD. Hypercholesterolem ia. SURGICAL HISTORY : Cholecystectomy. Splenic artery stent. ENCOUNTER: Subsequent ACUITY: 2 days PAIN SCORE: 4/10 LOCATION: Abdomen. FINDINGS: There is a nonspecific bowel gas pattern with mild gaseous distention of the stomach and several loop s of small bowel overlying the central to lower left abdomen. A paucity of colonic gas is seen. An ob structive pattern can have this appearance. NG tube tip terminates in the stomach. CONCLUSION: Distended loops of small bowel and mild gaseous distention of the stomach. A small bowel obstruction can have this appearance. John Payne MD on September 08, 2016 at 18:43 Board Certified Radiologist. This report was verified electronically.
[2016-09-08 18:49] LABS: ALKALINE PHOSPHATASE 71 U/L (45-117); TOTAL BILIRUBIN ADULT 0.4 MG/DL (0.2-1.0)
[2016-09-08] MEDS ORDERED: DIATRIZOATE MEGLUM/DIATRIZOATE SOD 9 ML CUP PO ONE (21:15)
--- NOTE | 2016-09-08 21:32 | HHI.PR ---
Subjective Remarks 61 YOWM with Pancreatitis,COPD,Nicotine use has Abd pain Breathing betetr no fever Tr to ISC Seen by surgery Objective Vital Signs Vital Signs Date Time Temp Pulse Resp B/P Pulse Ox O2 Delivery O2 Flow Rate FiO2 09/08/16 17:25 92 6.00 09/08/16 17:00 96.5 110 22 62/38 92 09/08/16 12:00 97.2 108 20 101/60 92 09/08/16 10:14 90 Nasal Cannula 5.00 09/08/16 08:00 97.7 100 22 140/73 97 09/08/16 04:00 97.7 81 17 105/65 97 09/08/16 00:00 97.0 61 18 104/54 98 09/07/16 23:50 Nasal Cannula 6.00 I/O 09/07/16 09/07/16 09/07/16 09/08/16 09/08/16 09/08/16 07:00 15:00 23:00 07:00 15:00 23:00 Intake Total 0 ml 150 ml 4280 ml 1950 ml Output Total 200 ml 150 ml 325 ml 150 ml Balance -200 ml 0 ml 3955 ml 1800 ml Intake Oral 0 ml 150 ml 600 ml IV Total 4280 ml 1350 ml Output Urine Total 200 ml 150 ml 325 ml 150 ml Result Diagram: 09/08/16180609/08/161806 Objective Remarks GENERAL: MBMN WM with Mild sob SKIN: Warm and dry. HEAD: Normocephalic. EYES: No scleral icterus. No injection or drainage. NECK: Supple, trachea midline. No JVD or lymphadenopathy. CARDIOVASCULAR: Regular rate and rhythm without murmurs, gallops, or rubs. RESPIRATORY: Breath sounds equal bilaterally. No accessory muscle use. GASTROINTESTINAL: Abdomen soft, non-tender, nondistended. Distended, tender MUSCULOSKELETAL: No cyanosis, or edema. BACK: Nontender without obvious deformity. No CVA tenderness. A/P Assessment and Plan COPD Nicotine Pancreatitis DM PLAN: Aerosol nebs Cont Abx Supplement 02 GI following pt. Going for CT abd, surgery following Velasquez Hill MD Sep 08, 2016 21:32
[2016-09-08] MEDS: PANTOPRAZOLE INJ 80 MG in SODIUM CHLORIDE 0.9% INJ 100 ML IV SCH (23:06)
--- NOTE | 2016-09-08 23:58 | MB ---
cc: CHRIS TOMLINSON M.D., [place] DATE OF CONSULTATION: 09/08/2016 REASON FOR CONSULTATION: Abdominal pain with a question of mesenteric smudging. HISTORY OF PRESENT ILLNESS: The patient is a 61-year-old male who was admitted on 09/02 with a several day history of gradually increasing left lower quadrant pain with tenderness. The patient said he was coughing up a large amount of phlegm. Denies any history of diverticulitis. The patient has a heavy smoker and was admitted to the hospital on 09/02. The patient's other medical problems including type 2 diabetes, hypertension, chronic pancreatitis and a question of stent placement in the spleen. The patient had some concern for ischemic bowel and Dr. Rangel saw the patient and patient underwent CT angio. This did not demonstrate any significant vascular compromise and the patient has continued to be followed by gastroenterology. He continues to have abdominal pain and Dr. Rangel asked me to see the patient regarding evaluation for second opinion and possible other intervention. GI has seen the patient and nasogastric tube was to be placed after our exam. He is to undergo small bowel follow-through. The patient had worsening abdominal distension and hypotension after undersigned had seen the patient. Nasogastric tube was placed. Will have the patient undergo repeat CT scan. I have reviewed previous CT and KUB with Dr. Payne of radiology and the patient will undergo CT with oral contrast only. Depending on the findings where the patient has question of abnormal segment of small bowel, we will proceed accordingly. CT is ordered for this evening to be performed urgently. MD CAROLINA Lee/CAMILLE /9:24 PM /11:51 PM
[2016-09-09] VITALS (14 sets, daily range): BP systolic 86–112; BP diastolic 50–66; PULSE 98–108; RESP 19–27; TEMP 97.6–98.8; O2SAT 82–99
[2016-09-09] MEDS: SODIUM CHLOR 0.9% 1000 ML INJ 1,000 ML IV SCH ×3 (00:15→20:43)
[2016-09-09] MEDS: RESP: ALBUTEROL 2.5 MG/IPRATROPIUM 0.5 MG NEB (SCH) NEB ×5 (00:25→20:09)
--- NOTE | 2016-09-09 00:43 | RADRPT ---
EXAM DATE/TIME: 09/08/2016 23:45 This report includes an Addendum and supersedes previous reports for this exam. [facility] COMPARISON: ABDOMEN KUB ONLY, September 08, 2016, 18:14. CTA ABDOMEN & PELVIS W 3D RECON, September 04, 2016, 9:06. CT ABDOMEN & PELVIS W/O CONTRAST, February 29, 2016, 3:25. INDICATIONS : Abdominal distension, evaluate for small bowel abnormality. ORAL CONTRAST: Prescribed oral contrast ingested. RADIATION DOSE: 9.96 CTDIvol (mGy) MEDICAL HISTORY : Cardiovascular disease. Hypertension. Pancreatitis.diabetes. SURGICAL HISTORY : None. ENCOUNTER: Subsequent ACUITY: 4 - 6 days PAIN SCALE: 6/10 LOCATION: abdomen TECHNIQUE: Volumetric scanning of the abdomen and pelvis was performed. Using automated exposure control and ad justment of the mA and/or kV according to patient size, radiation dose was kept as low as reasonably achievable to obtain optimal diagnostic quality images. FINDINGS: LOWER LUNGS: Prominent right lower lung consolidation/atelectasis and moderate sized right pleural effusion. Trace left pleural effusion. Coronary artery calcifications. LIVER: Small calcified gallstones in the dependent portion of the gallbladder. No sarina-cholecystic inflammat ory changes. Liver homogeneous and within normal limits. SPLEEN: Normal size without lesion. PANCREAS: Extensive pancreatic calcification indicating chronic pancreatitis. KIDNEYS: Bilateral punctate and linear calcifications in the renal te likely representing arterial calcifica tion. No evidence of hydronephrosis. 1.8 cm exophytic lower pole right renal mass unchanged. ADRENAL GLANDS: Within normal limits. VASCULAR: Diffuse aortic calcification. No aortic aneurysm. BOWEL/MESENTERY: Nasogastric tube is in place. Stomach is mildly distended. There is marked inflammatory changes in th e left upper quadrant of the abdomen. Marked wall thickening is identified over an approximately 6 cm segment of mid small bowel. Intraluminal contrast is not present in this segment at the time of scan . There is mild dilatation of contrast filled small bowel proximal to this. Moderate focal transverse colon severity short segment adjacent left upper quadrant transverse colon wall thickening also note d. Severe surrounding inflammatory changes in the mesenteric fat. There is a rounded 4 cm air fluid l evel adjacent to the thickened small bowel loop that may represent abscess. Small amount of free flui d around the spleen and liver. No free air. Moderate free fluid in the pelvis. ABDOMINAL WALL: Within normal limits. RETROPERITONEUM: There is no lymphadenopathy. BLADDER: No wall thickening or mass. REPRODUCTIVE: Within normal limits. INGUINAL: There is no lymphadenopathy or hernia. MUSCULOSKELETAL: Within normal limits for patient age. CONCLUSION: 1. Marked inflammatory changes of left upper quadrant with severe mesenteric edema and adjacent short segment circumferential wall thickening of mid small bowel and adjacent distal transverse colon. Pos sible 4 cm abscess adjacent to the mid small bowel wall. Evaluation of intraluminal versus extralumin al fluid in this region is limited as intraluminal contrast is not present in this loop. A delayed sc an may be beneficial for clarification. Differential diagnosis includes inflammatory bowel disease an d infection. Moderate amount of free fluid similar to prior study. No evidence of free air. 2. Chronic pancreatitis. Filiberto Hall MD on September 09, 2016 at 0:11 Board Certified Radiologist. This report was verified electronically. ADDENDUM: Delayed images show contrast filling the thickened loops of left upper quadrant small bowel. No evide nce of abscess. Findings were discussed with Dr. Henriquez. Filiberto Hall MD on September 09, 2016 at 1:41 Board Certified Radiologist. This report was verified electronically.
[2016-09-09 00:59] LABS: HEMATOCRIT 43.6 % (39.0-51.0); REVIEW FLAG FINAL
[2016-09-09] MEDS ORDERED: SODIUM CHLORID 0.9% 500 ML INJ 500 ML IV ONE ×2 (02:45→09:00)
[2016-09-09] MEDS: RESP: ALBUTEROL 1.25 MG/3 ML NEB (SCH) NEB ×4 (03:24→20:10)
[2016-09-09 04:34] LABS: AUTOMATED NEUTROPHIL # 11.3 TH/MM3 (1.8-7.7); BASOPHIL # 0.1 TH/MM3 (0-0.2); BASOPHIL % 0.4 % (0.0-2.0); EOSINOPHIL # 0.6 TH/MM3 (0-0.4); EOSINOPHIL % 3.9 % (0.0-4.0); HEMATOCRIT 42.9 % (39.0-51.0); HEMO FLAGS DIFF FINAL; LYMPH % 12.8 % (9.0-44.0); MEAN CELL VOLUME 88.6 FL (80.0-100.0); MEAN CORPUSCULAR HEMOGLOBIN 29.7 PG (27.0-34.0); MEAN CORPUSCULAR HGB CONC 33.6 % (32.0-36.0); MONO % 11.1 % (0.0-8.0); NEUT % 71.8 % (16.0-70.0); PLATELET COUNT 360 TH/MM3 (150-450); RED BLOOD COUNT 4.84 MIL/MM3 (4.50-5.90); WHITE BLOOD COUNT 15.7 TH/MM3 (4.0-11.0)
[2016-09-09 05:06] LABS: BICARBONATE 33.3 MEQ/L (21.0-32.0); MAGNESIUM 2.2 MG/DL (1.5-2.5); POTASSIUM 3.7 MEQ/L (3.5-5.1)
[2016-09-09] MEDS: CIPROFLOXACIN 400 MG PREMIX 200 ML IV SCH ×2 (05:16→16:00)
--- NOTE | 2016-09-09 05:58 | RADRPT ---
EXAM DATE/TIME: 09/09/2016 04:54 [facility] COMPARISON: ABDOMEN KUB ONLY, September 08, 2016, 18:14. INDICATIONS : Abdominal distention. MEDICAL HISTORY : Pancreatitis. Hypertension Chronic obstructive pulmonary disease. Diabetes, GERD SURGICAL HISTORY : Cholecystectomy. ENCOUNTER: Subsequent ACUITY: 3 days PAIN SCORE: 6/10 LOCATION: Bilateral Abdomen FINDINGS: Scattered gas in colon and small bowel. Moderately distended loops of mid upper abdomen small bowel. Thickened wall of the nvolves central small bowel loops noted. Contrast is present in the rectum. Deg enerative findings of the lumbar spine. CONCLUSION: No significant interval change. Persistent upper mid abdomen small bowel dilatation and wall thickeni ng. Filiberto Hall MD on September 09, 2016 at 5:55 Board Certified Radiologist. This report was verified electronically.
[2016-09-09] MEDS: INSULIN ASPART SUPPLEMENTAL SCALE SQ SCH ×4 (07:00→20:43)
[2016-09-09] MEDS: PANTOPRAZOLE INJ 80 MG in SODIUM CHLORIDE 0.9% INJ 100 ML IV SCH (07:29)
--- NOTE | 2016-09-09 08:25 | HHI.GIFU ---
Subjective Remarks Resting in bed. States he feels better today. Had BM yesterday- none today. Minimal drainage out overnight. Still hypotensive. Nurse reports that he responded well to fluid bolus overnight. (Rocio Carcamo) Objective Vitals I&O Vital Signs Date Time Temp Pulse Resp B/P Pulse Ox O2 Delivery O2 Flow Rate FiO2 09/09/16 06:00 102 09/09/16 04:00 97.9 102 21 96/52 98 09/09/16 04:00 102 09/09/16 02:00 102 09/09/16 00:00 97.6 106 24 112/66 82 09/09/16 00:00 106 09/08/16 22:00 108 09/08/16 20:00 111 09/08/16 20:00 97.8 112 32 120/75 82 09/08/16 19:00 82 Nasal Cannula 6.00 09/08/16 17:25 92 6.00 09/08/16 17:00 96.5 110 22 62/38 92 09/08/16 12:00 97.2 108 20 101/60 92 09/08/16 10:14 90 Nasal Cannula 5.00 I/O 09/08/16 09/08/16 09/08/16 09/09/16 09/09/16 09/09/16 07:00 15:00 23:00 07:00 15:00 23:00 Intake Total 4280 ml 1950 ml 2629 ml 1558 ml Output Total 325 ml 150 ml 1075 ml 250 ml Balance 3955 ml 1800 ml 1554 ml 1308 ml Intake Oral 600 ml IV Total 4280 ml 1350 ml 2629 ml 1558 ml Output Urine Total 325 ml 150 ml 350 ml 250 ml Gastric Drainage Total 425 ml Emesis 300 ml # Voids 2 Laboratory Laboratory Tests Test 09/08/16 09/09/16 09/09/16 18:07 00:36 04:03 White Blood Count 24.1 15.7 Red Blood Count 5.20 4.84 Hemoglobin 15.7 14.6 14.4 Hematocrit 46.8 43.6 42.9 Mean Corpuscular Volume 90.1 88.6 Mean Corpuscular Hemoglobin 30.1 29.7 Mean Corpuscular Hemoglobin 33.4 33.6 Concent Red Cell Distribution Width 14.2 14.0 Platelet Count 438 360 Mean Platelet Volume 8.0 7.8 Neutrophils (%) (Auto) 83.0 71.8 Lymphocytes (%) (Auto) 7.5 12.8 Monocytes (%) (Auto) 8.4 11.1 Eosinophils (%) (Auto) 0.6 3.9 Basophils (%) (Auto) 0.5 0.4 Neutrophils # (Auto) 20.0 11.3 Lymphocytes # (Auto) 1.8 2.0 Monocytes # (Auto) 2.0 1.7 Eosinophils # (Auto) 0.1 0.6 Basophils # (Auto) 0.1 0.1 CBC Comment DIFF FINAL DIFF FINAL Differential Comment Prothrombin Time 18.4 Prothromb Time International 1.6 Ratio Sodium Level 134 139 Potassium Level 4.0 3.7 Chloride Level 90 95 Carbon Dioxide Level 28.4 33.3 Anion Gap 16 11 Blood Urea Nitrogen 14 17 Creatinine 0.70 0.41 Estimat Glomerular Filtration 115 214 Rate Random Glucose 162 122 Calcium Level 8.0 7.5 Total Bilirubin 0.4 Aspartate Amino Transf 176 (AST/SGOT) Alanine Aminotransferase 212 (ALT/SGPT) Alkaline Phosphatase 71 Troponin I 0.29 Total Protein 6.5 Albumin 2.5 Carcinoembryonic Antigen 3.1 CA 19-9 Antigen LESS THAN 1.2 CA 125 Antigen 78.2 Magnesium Level 2.2 Date/Time Procedure Status Source Growth 09/09/16 02:45 Gastric Occult Blood - Final Complete Gastric GASTROCCULT POSITIVE 09/09/16 02:45 Cryptosporidium Exam Ordered Stool Stool Pending 09/09/16 02:45 Giardia Antigen ([facility]WIN) Ordered Stool Stool Pending 09/09/16 02:45 Ordered Stool Stool Pending 09/06/16 00:20 Cryptosporidium Exam - Final Complete Stool Stool NEGATIVE - NO CRYPTOSPORIDIUM ANTIGEN... 09/06/16 00:20 Stool Pus (EDWIN) - Final Complete Stool Stool FEW WBC'S 09/06/16 00:20 Giardia Antigen (EDWIN) - Final Complete Stool Stool NEGATIVE - NO GIARDIA ANTIGEN DETECTE... Imaging Last Impressions Abdomen X-Ray 09/09/16 0600 Signed Impressions: Service Date/Time: August 04:54 - CONCLUSION: No significant interval change. Persistent upper mid abdomen small bowel dilatation and wall thickening. Filiberto Hall MD Abdomen/Pelvis CT 09/08/16 0000 Signed Impressions: Service Date/Time: Thursday, September 08, 2016 23:45 - CONCLUSION: 1. Marked inflammatory changes of left upper quadrant with severe mesenteric edema and adjacent short segment circumferential wall thickening of mid small bowel and adjacent distal transverse colon. Possible 4 cm abscess adjacent to the mid small bowel wall. Evaluation of intraluminal versus extraluminal fluid in this region is limited as intraluminal contrast is not present in this loop. A delayed scan may be beneficial for clarification. Differential diagnosis includes inflammatory bowel disease and infection. Moderate amount of free fluid similar to prior study. No evidence of free air. 2. Chronic pancreatitis. Filiberto Hall MD ADDENDUM: Delayed images show contrast filling the thickened loops of left upper quadrant small bowel. No evidence of abscess. Findings were discussed with Dr. Henriquez. Filiberto Hall MD Chest X-Ray 09/05/16 0000 Signed Impressions: Service Date/Time: Monday, September 05, 2016 13:24 - CONCLUSION: 1. At least mild right pleural effusion. 2. Chronic emphysematous and interstitial disease. Gumaro Schuster MD Physical Exam HEENT: Normocephalic; atraumatic; no jaundice. CHEST: CTA, Simple mas CARDIAC: RRR with no murmur gallop or rubs. Hypotensive. ABDOMEN: Soft, distended, mild diffuse tenderness; no hepatosplenomegaly; bowel sounds are hypoactive. EXTREMITIES: No clubbing, cyanosis, or edema. SKIN: Skin warm and dry ANCHOR OPERATOR: Lethargic. (Rocio Cracamo) Assessment and Plan Plan ASSESSMENT: - Acute abdominal pain, LLQ, Abdominal pain that started on Tuesday. CT Abdomen and pelivs (09/02/16)----> Proximal small bowel ileus with significant intestinal and sarina-intestinal inflammation characteristic of acute enteritis. Ischemic bowel cannot be excluded, cholelithiasis, pancreatic calcification characteristic of chronic pancreatitis, significant atherosclerotic vascular disease especially involving the origin of the SMA, free fluid in the pelvis without evidence of loculated collections to suggest abscess formation. CTA (09/04/16)----> 1. Atherosclerotic change without a significant area of stenosis. 2. Inflammatory change in the mesentery in the left upper abdomen. Pancreatic calcification characteristic of chronic pancreatitis. Significant atherosclerotic vascular disease especially involving the origin of the SMA. Free fluid in the pelvis without evidence of loculated collections to suggest abscess formation. S/P EGD (09/06/16)-----> There was erythematous gastritis in the gastric antrum, LA Class esophagitis, retroflexed views revealed no abnormalities. Pathology pending. PPI. Rpt. EGD 6 weeks pending biopsy results. Incomplete colonoscopy (09/06/16)----> normal colon mucosa to splenic flexure, unable to advance beyond this area, retroflexed views revealed medium internal hemorrhoids. Rpt colonoscopy was recommended, but pt refused bowel prep. Stool studies negative for cryptosporidium, giardia, cdiff. Stool with few wbc. Pt had worsening distention with persistent nausea/vomiting with bilious/coffee ground emesis yesterday. NGT was placed. KUB (09/09/16)------> No significant interval change. Persistent upper mid abdomen small bowel dilatation and wall thickening. Abdomen/Pelvis CT (09/08/16)----> 1. Marked inflammatory changes of left upper quadrant with severe mesenteric edema and adjacent short segment circumferential wall thickening of mid small bowel and adjacent distal transverse colon. Possible 4 cm abscess adjacent to the mid small bowel wall. Evaluation of intraluminal versus extraluminal fluid in this region is limited as intraluminal contrast is not present in this loop. A delayed scan may be beneficial for clarification. Differential diagnosis includes inflammatory bowel disease and infection. Moderate amount of free fluid similar to prior study. No evidence of free air. 2. Chronic pancreatitis. ADDENDUM: Delayed images show contrast filling the thickened loops of left upper quadrant small bowel. No evidence of abscess. Findings were discussed with Dr. Henriquez. GS following. WBC improved today 15.7. Remains hypotensive, but clinically doing better today. Less distention. Pain improved. Small amount of drainage from NGT. NPO. NGT to LIWS. Await GS evaluation today. PSBO secondary to enteritis, ? ischemia vs. infection vs. inflammatory. - Hypotension. Had jump in WBC last night, but has improved today. Afebrile. ? dehydrated - Chronic pancreatitis with calcifications. Pt with history of chronic pancreatitis reportedly secondary to alcohol abuse. - Leukocytosis, persistent. WBC 15.7 - DM, HTN per attending PLAN: - NPO - NGT to [facility] - D/C Protonix Gtt - Protonix 40mg IV BID - Cont. Cipro/Flagyl - Hold on SBFT until seen by GS (see if patient needs to be NPO for any procedures) - Monitor labs - Supportive care - Refused bowel prep for repeat colonoscopy - Further recommendations to follow based on results of above. - Patient seen and examined by Dr. Colbert and myself and this note is written on his behalf. (Rocio Carcamo) Physician Comments Seen and examined with VARUN, doing better , still no BM. NG clamped, abdomen less distended. CT reviewed, await surgical recommendations, if no surgery planned try clear liquid diet. Discussed with nurse. (Tammy Colbert MD) Rocio Carcamo Sep 09, 2016 08:25 Tammy Colbert MD Sep 09, 2016 15:04
--- NOTE | 2016-09-09 08:45 | HHI.PR ---
Subjective Remarks f/u abdominal pain pt tells me he is feeling much better and abdominal pain is much improved. He can barely feel it. He states he wants something to eat. SOB is better. Finished breathing treament when I came in. No nausea or vomiting. Passing some flatus. No BM. Objective Vitals Vital Signs Date Time Temp Pulse Resp B/P Pulse Ox O2 Delivery O2 Flow Rate FiO2 09/09/16 08:36 94 Nasal Cannula 5.00 09/09/16 06:00 102 09/09/16 04:00 97.9 102 21 96/52 98 09/09/16 04:00 102 09/09/16 02:00 102 09/09/16 00:00 97.6 106 24 112/66 82 09/09/16 00:00 106 09/08/16 22:00 108 09/08/16 20:00 111 09/08/16 20:00 97.8 112 32 120/75 82 09/08/16 19:00 82 Nasal Cannula 6.00 09/08/16 17:25 92 6.00 09/08/16 17:00 96.5 110 22 62/38 92 09/08/16 12:00 97.2 108 20 101/60 92 09/08/16 10:14 90 Nasal Cannula 5.00 I/O 09/08/16 09/08/16 09/08/16 09/09/16 09/09/16 09/09/16 07:00 15:00 23:00 07:00 15:00 23:00 Intake Total 4280 ml 1950 ml 2629 ml 1558 ml Output Total 325 ml 150 ml 1075 ml 250 ml Balance 3955 ml 1800 ml 1554 ml 1308 ml Intake Oral 600 ml IV Total 4280 ml 1350 ml 2629 ml 1558 ml Output Urine Total 325 ml 150 ml 350 ml 250 ml Gastric Drainage Total 425 ml Emesis 300 ml # Voids 2 Result Diagram: 09/09/163 09/09/16 0403 Imaging Last Impressions Abdomen X-Ray 09/09/16 0600 Signed Impressions: Service Date/Time: August 04:54 - CONCLUSION: No significant interval change. Persistent upper mid abdomen small bowel dilatation and wall thickening. Filiberto Hall MD Abdomen/Pelvis CT 09/08/16 0000 Signed Impressions: Service Date/Time: Thursday, September 08, 2016 23:45 - CONCLUSION: 1. Marked inflammatory changes of left upper quadrant with severe mesenteric edema and adjacent short segment circumferential wall thickening of mid small bowel and adjacent distal transverse colon. Possible 4 cm abscess adjacent to the mid small bowel wall. Evaluation of intraluminal versus extraluminal fluid in this region is limited as intraluminal contrast is not present in this loop. A delayed scan may be beneficial for clarification. Differential diagnosis includes inflammatory bowel disease and infection. Moderate amount of free fluid similar to prior study. No evidence of free air. 2. Chronic pancreatitis. Filiberto Hall MD ADDENDUM: Delayed images show contrast filling the thickened loops of left upper quadrant small bowel. No evidence of abscess. Findings were discussed with Dr. Henriquez. Filiberto Hall MD Chest X-Ray 09/05/16 0000 Signed Impressions: Service Date/Time: Monday, September 05, 2016 13:24 - CONCLUSION: 1. At least mild right pleural effusion. 2. Chronic emphysematous and interstitial disease. Gumaro Schuster MD Objective Remarks GENERAL: in NAD, appears comfortable this morning. CARDIOVASCULAR: Regular rate and rhythm without murmurs RESPIRATORY: No accessory muscle use. minimal wheezing noted. No crackles. GASTROINTESTINAL: minimal discomfort w palpation on lower quadrant, continues to be distended. no peritoneal signs. bowel sounds are decreased however. no guarding or rebound noted on exam this morning. MUSCULOSKELETAL: No cyanosis, or edema. Moves extremities. A/P Assessment and Plan 61-year-old male with acute abdominal pain Acute abdominal pain and also had bilious emesis - CT scan showed Marked inflammatory changes of left upper quadrant with severe mesenteric edema and adjacent short segment circumferential wall thickening of mid small bowel and adjacent distal transverse colon - on Cipro and Flagyl will continue with current regimen. - Vascular sx reviewed CTA and didn't note stenosis. No surgical intervention at this time. General surgery was consulted and is following. Pt currently has an NG tube in place, NPO. - EGD on 09/06 showed esophagitis and gastritis. colonoscopy was unsuccessful. needs repeat but patient is refusing. -continue monitor with serial abdominal exam, given IV fluids and pain control. Acute Hypoxia -most likely due to aspiration for emesis. -Tolerating NC now at 4L -pulm ff. -just had breathing treatment this morning. Allergic rhinitis -on Flonase and Claritin. Type 2 diabetes - glipizide held and now on SSI. - on hypoglycemic protocol. Hyponatremia -Asymptomatic. -resolved -Continue to monitor sodium. Hypertension -continue home medication. DVT prophylaxis -Lovenox on hold, added SCD/MELISSA Discharge Planning Pt is improving. Still requiring NGT. Awaiting recs from Gen surg. Continue to wean oxygen as tolerated Shaye Sevilla MD Sep 09, 2016 08:45
[2016-09-09] MEDS: LISINOPRIL 10 MG TAB PO SCH (09:00)
[2016-09-09] MEDS: metroNIDAZOLE 500 MG INJ 100 ML IV SCH ×2 (09:42→15:00)
[2016-09-09] MEDS: SODIUM CHLORIDE 0.9% FLUSH 5 ML FLUSH FLUSH SCH ×2 (09:42→20:43)
[2016-09-09] MEDS: FLUTICASONE PROPIONATE 50 MCG/ACT 16 GM NASAL SPRAY NASAL SCH ×2 (09:43→20:43)
[2016-09-09] MEDS: LORATADINE 10 MG TAB PO SCH (09:43)
[2016-09-09] MEDS: guaiFENesin E.R. 600 MG TAB PO SCH ×2 (09:43→20:42)
[2016-09-09 13:27] LABS: HEMATOCRIT 44.7 % (39.0-51.0); REVIEW FLAG FINAL
--- NOTE | 2016-09-09 13:56 | EKG ---
Date Performed: 09/08/2016 Time Performed: 20:10:20 PTAGE: 61 years EKG: SINUS TACHYCARDIA ABNORMAL RHYTHM ECG PREVIOUS TRACING : 09/03/2016 07.27 DOCTOR: Israel Johnston Interpretating Date/Time 09/09/2016 13:51:56
--- NOTE | 2016-09-09 16:55 | HHI.PR ---
Subjective Remarks 61 YOWM with Pancreatitis,COPD,Nicotine use has Abd pain Breathing betetr no fever Feels much better on 4LNC, sat 94% Objective Vital Signs Vital Signs Date Time Temp Pulse Resp B/P Pulse Ox O2 Delivery O2 Flow Rate FiO2 09/09/16 16:00 98.1 104 19 99/51 90 09/09/16 16:00 104 09/09/16 14:00 104 09/09/16 12:00 98.0 103 19 86/50 93 09/09/16 12:00 103 09/09/16 10:00 102 09/09/16 08:36 94 Nasal Cannula 5.00 09/09/16 08:00 98 09/09/16 08:00 98.8 98 25 101/51 99 09/09/16 07:00 95 Nasal Cannula 6.00 09/09/16 06:00 102 09/09/16 04:00 97.9 102 21 96/52 98 09/09/16 04:00 102 09/09/16 02:00 102 09/09/16 00:00 97.6 106 24 112/66 82 09/09/16 00:00 106 09/08/16 22:00 108 09/08/16 20:00 111 09/08/16 20:00 97.8 112 32 120/75 82 09/08/16 19:00 82 Nasal Cannula 6.00 09/08/16 17:25 92 6.00 09/08/16 17:00 96.5 110 22 62/38 92 I/O 09/08/16 09/08/16 09/08/16 09/09/16 09/09/16 09/09/16 07:00 15:00 23:00 07:00 15:00 23:00 Intake Total 4280 ml 1950 ml 2629 ml 1558 ml 1230 ml Output Total 325 ml 150 ml 1075 ml 250 ml 500 ml Balance 3955 ml 1800 ml 1554 ml 1308 ml 730 ml Intake Oral 600 ml 30 ml IV Total 4280 ml 1350 ml 2629 ml 1558 ml 1200 ml Output Urine Total 325 ml 150 ml 350 ml 250 ml 450 ml Gastric Drainage Total 425 ml 50 ml Emesis 300 ml # Voids 2 2 Result Diagram: 09/09/16 1252 09/09/16 0403 Objective Remarks GENERAL: MBMN WM with Mild sob SKIN: Warm and dry. HEAD: Normocephalic. EYES: No scleral icterus. No injection or drainage. NECK: Supple, trachea midline. No JVD or lymphadenopathy. CARDIOVASCULAR: Regular rate and rhythm without murmurs, gallops, or rubs. RESPIRATORY: Breath sounds equal bilaterally. No accessory muscle use. GASTROINTESTINAL: Abdomen soft, non-tender, nondistended. Distended, tender MUSCULOSKELETAL: No cyanosis, or edema. BACK: Nontender without obvious deformity. No CVA tenderness. A/P Assessment and Plan COPD Nicotine Pancreatitis DM PLAN: Aerosol nebs Cont Abx Supplement 02 GI following pt. Velasquez Hill MD Sep 09, 2016 16:55
[2016-09-09] MEDS: PANTOPRAZOLE SODIUM 40 MG VIAL IV PUSH SCH (20:42)
[2016-09-10] VITALS (16 sets, daily range): BP systolic 109–155; BP diastolic 56–95; PULSE 98–113; RESP 14–25; TEMP 98–98.6; O2SAT 82–99
[2016-09-10] MEDS: metroNIDAZOLE 500 MG INJ 100 ML IV SCH ×3 (00:37→15:28)
[2016-09-10] MEDS: RESP: ALBUTEROL 1.25 MG/3 ML NEB (SCH) NEB ×4 (03:09→22:01)
[2016-09-10] MEDS: RESP: ALBUTEROL 2.5 MG/IPRATROPIUM 0.5 MG NEB (SCH) NEB ×3 (03:09→16:28)
[2016-09-10 04:32] LABS: AUTOMATED NEUTROPHIL # 11.6 TH/MM3 (1.8-7.7); BASOPHIL # 0.1 TH/MM3 (0-0.2); BASOPHIL % 0.6 % (0.0-2.0); EOSINOPHIL # 1.2 TH/MM3 (0-0.4); EOSINOPHIL % 7.3 % (0.0-4.0); HEMATOCRIT 44.7 % (39.0-51.0); HEMO FLAGS DIFF FINAL; LYMPH % 13.9 % (9.0-44.0); LYMPHOCYTE # 2.4 TH/MM3 (1.0-4.8); MEAN CELL VOLUME 88.9 FL (80.0-100.0); MEAN CORPUSCULAR HEMOGLOBIN 28.9 PG (27.0-34.0); MEAN CORPUSCULAR HGB CONC 32.5 % (32.0-36.0); MONO % 9.9 % (0.0-8.0); NEUT % 68.3 % (16.0-70.0); PLATELET COUNT 338 TH/MM3 (150-450); RED BLOOD COUNT 5.02 MIL/MM3 (4.50-5.90); RED CELL DISTRIBUTION WIDTH 14.1 % (11.6-17.2); WHITE BLOOD COUNT 16.9 TH/MM3 (4.0-11.0)
[2016-09-10 04:37] LABS: APTT (PATIENT) 34.9 SEC (24.3-30.1); INTERNATIONAL NORMALIZED RATIO 1.8 RATIO
[2016-09-10] MEDS: CIPROFLOXACIN 400 MG PREMIX 200 ML IV SCH ×2 (04:40→16:26)
[2016-09-10 05:06] LABS: POTASSIUM 3.5 MEQ/L (3.5-5.1)
[2016-09-10] MEDS: SODIUM CHLOR 0.9% 1000 ML INJ 1,000 ML IV SCH ×2 (06:21→16:00)
[2016-09-10] MEDS: INSULIN ASPART SUPPLEMENTAL SCALE SQ SCH ×4 (07:00→21:00)
[2016-09-10] MEDS ORDERED: POTASSIUM CHLOR 20 MEQ PREMIX 100 ML IV ONE (08:00)
[2016-09-10] MEDS: LORATADINE 10 MG TAB PO SCH (09:00)
[2016-09-10] MEDS: guaiFENesin E.R. 600 MG TAB PO SCH ×2 (09:00→21:00)
[2016-09-10] MEDS: LISINOPRIL 10 MG TAB PO SCH (09:00)
[2016-09-10] MEDS: SODIUM CHLORIDE 0.9% FLUSH 5 ML FLUSH FLUSH SCH ×2 (09:40→21:16)
[2016-09-10] MEDS: PANTOPRAZOLE SODIUM 40 MG VIAL IV PUSH SCH ×2 (09:40→21:19)
[2016-09-10] MEDS: FLUTICASONE PROPIONATE 50 MCG/ACT 16 GM NASAL SPRAY NASAL SCH (09:41)
[2016-09-10] MEDS ORDERED: LACTATED RINGER'S 1000 ML INJ 1,000 ML IV ONE (11:15)
[2016-09-10] MEDS ORDERED: NORMOSOL R INJ 2,000 ML IV ONE (11:15)
--- NOTE | 2016-09-10 12:17 | HHI.PR ---
Subjective Remarks Pt states "I feel great" and wants to drink something. When asked if he has passed any flatus or had a BM, he says no. States he will be going to surgery this afternoon. NG tube in place. No nausea or vomiting. No pain at this time. Objective Vitals Vital Signs Date Time Temp Pulse Resp B/P Pulse Ox O2 Delivery O2 Flow Rate FiO2 09/10/16 10:00 98 09/10/16 08:00 98.6 101 25 112/63 95 09/10/16 08:00 101 09/10/16 07:40 98 Simple Mask 6.00 09/10/16 07:00 95 Nasal Cannula 5.00 09/10/16 06:00 100 09/10/16 04:00 98.5 100 18 110/57 96 09/10/16 04:00 100 09/10/16 02:00 98 09/10/16 00:00 102 09/10/16 00:00 98.3 102 25 141/95 93 09/09/16 22:00 103 09/09/16 20:10 95 Simple Mask 6.00 09/09/16 20:00 98.1 106 27 100/59 91 09/09/16 20:00 107 09/09/16 19:00 96 Simple Mask 6.00 09/09/16 18:00 108 09/09/16 16:00 98.1 104 19 99/51 90 09/09/16 16:00 104 09/09/16 14:00 104 I/O 09/09/16 09/09/16 09/09/16 09/10/16 09/10/16 09/10/16 07:00 15:00 23:00 07:00 15:00 23:00 Intake Total 1558 ml 1230 ml 917 ml 810 ml Output Total 250 ml 500 ml 300 ml 400 ml Balance 1308 ml 730 ml 617 ml 410 ml Intake Oral 30 ml 30 ml 30 ml IV Total 1558 ml 1200 ml 887 ml 780 ml Output Urine Total 250 ml 450 ml 300 ml 400 ml Gastric Drainage Total 50 ml # Voids 2 # Bowel Movements 1 Result Diagram: 09/10/16 0359 09/10/16 0359 Imaging Last Impressions Abdomen X-Ray 09/09/16 06 Signed Impressions: Service Date/Time: August 04:54 - CONCLUSION: No significant interval change. Persistent upper mid abdomen small bowel dilatation and wall thickening. Filiberto Hall MD Abdomen/Pelvis CT 09/08/16 0000 Signed Impressions: Service Date/Time: Thursday, September 08, 2016 23:45 - CONCLUSION: 1. Marked inflammatory changes of left upper quadrant with severe mesenteric edema and adjacent short segment circumferential wall thickening of mid small bowel and adjacent distal transverse colon. Possible 4 cm abscess adjacent to the mid small bowel wall. Evaluation of intraluminal versus extraluminal fluid in this region is limited as intraluminal contrast is not present in this loop. A delayed scan may be beneficial for clarification. Differential diagnosis includes inflammatory bowel disease and infection. Moderate amount of free fluid similar to prior study. No evidence of free air. 2. Chronic pancreatitis. Filiberto Hall MD ADDENDUM: Delayed images show contrast filling the thickened loops of left upper quadrant small bowel. No evidence of abscess. Findings were discussed with Dr. Henriquez. Filiberto Hall MD Chest X-Ray 09/05/16 0000 Signed Impressions: Service Date/Time: Monday, September 05, 2016 13:24 - CONCLUSION: 1. At least mild right pleural effusion. 2. Chronic emphysematous and interstitial disease. Gumaro Schuster MD Objective Remarks GENERAL: in NAD, appears comfortable this morning. CARDIOVASCULAR: Regular rate and rhythm without murmurs RESPIRATORY: No accessory muscle use. no wheezing. No crackles. GASTROINTESTINAL: minimal discomfort w palpation on lower quadrant, continues to be distended. no peritoneal signs. bowel sounds are decreased, no guarding or rebound noted MUSCULOSKELETAL: No cyanosis, or edema. Moves extremities. A/P Assessment and Plan 61-year-old male with acute abdominal pain Acute abdominal pain and also had bilious emesis - CT scan showed Marked inflammatory changes of left upper quadrant with severe mesenteric edema and adjacent short segment circumferential wall thickening of mid small bowel and adjacent distal transverse colon - on Cipro and Flagyl will continue with current regimen. - Vascular sx reviewed CTA and didn't note stenosis. No surgical intervention at this time. General surgery was consulted and plans to take pt to OR today. Pt currently has an NG tube in place, NPO. - EGD on 09/06 showed esophagitis and gastritis. colonoscopy was unsuccessful. needs repeat but patient is refusing. -continue monitor with serial abdominal exam, given IV fluids and pain control. Leukocytosis: 16.9 this morning. Continue to monitor closely. Pt's hypoxia continues and he is requiring more oxygen. Will treat for aspiration PNA w clindamycin 600mg IV q8hrs (pt allergic to PNC) for now and monitor. Repeat CBC in AM Acute Hypoxia -most likely due to aspiration for emesis. -wean off oxygen as tolerated. -pulm ff. Allergic rhinitis -on Flonase and Claritin. Type 2 diabetes - glipizide held and now on SSI. - on hypoglycemic protocol. Hyponatremia -Asymptomatic. -resolved -Continue to monitor sodium. Hypertension -continue home medication. DVT prophylaxis -Lovenox on hold, added SCD/MELISSA Discharge Planning Pt is improving. Still requiring NGT. Gen surg taking pt to OR today Continue to wean oxygen as tolerated started on IV clindamycin Shaye Sevilla MD Sep 10, 2016 12:17
[2016-09-10] MEDS: CLINDAMYCIN INJ 600 MG in SODIUM CHLORIDE 0.9% INJ 100 ML IV SCH ×2 (14:01→21:19)
--- NOTE | 2016-09-10 14:54 | HHI.GIFU ---
Subjective Remarks Resting in bed. States he feels much better and that he cannot wait to get something to drink and eat. Going to OR today with GS at 1pm. (Rocio Carcamo) Objective Vitals I&O Vital Signs Date Time Temp Pulse Resp B/P Pulse Ox O2 Delivery O2 Flow Rate FiO2 09/10/16 14:00 100 09/10/16 12:00 101 09/10/16 12:00 98.5 101 22 109/56 98 09/10/16 10:00 98 09/10/16 08:00 98.6 101 25 112/63 95 09/10/16 08:00 101 09/10/16 07:40 98 Simple Mask 6.00 09/10/16 07:00 95 Nasal Cannula 5.00 09/10/16 06:00 100 09/10/16 04:00 98.5 100 18 110/57 96 09/10/16 04:00 100 09/10/16 02:00 98 09/10/16 00:00 102 09/10/16 00:00 98.3 102 25 141/95 93 09/09/16 22:00 103 09/09/16 20:10 95 Simple Mask 6.00 09/09/16 20:00 98.1 106 27 100/59 91 09/09/16 20:00 107 09/09/16 19:00 96 Simple Mask 6.00 09/09/16 18:00 108 09/09/16 16:00 98.1 104 19 99/51 90 09/09/16 16:00 104 I/O 09/09/16 09/09/16 09/09/16 09/10/16 09/10/16 09/10/16 07:00 15:00 23:00 07:00 15:00 23:00 Intake Total 1558 ml 1230 ml 917 ml 810 ml 762 ml Output Total 250 ml 500 ml 300 ml 400 ml 800 ml Balance 1308 ml 730 ml 617 ml 410 ml -38 ml Intake Oral 30 ml 30 ml 30 ml 30 ml IV Total 1558 ml 1200 ml 887 ml 780 ml 732 ml Output Urine Total 250 ml 450 ml 300 ml 400 ml 350 ml Gastric Drainage Total 50 ml 450 ml # Voids 2 # Bowel Movements 1 0 Laboratory Laboratory Tests Test 09/09/16 09/10/16 20:30 03:59 Nasal Screen MRSA (PCR) NEGATIVE White Blood Count 16.9 Red Blood Count 5.02 Hemoglobin 14.5 Hematocrit 44.7 Mean Corpuscular Volume 88.9 Mean Corpuscular Hemoglobin 28.9 Mean Corpuscular Hemoglobin 32.5 Concent Red Cell Distribution Width 14.1 Platelet Count 338 Mean Platelet Volume 7.9 Neutrophils (%) (Auto) 68.3 Lymphocytes (%) (Auto) 13.9 Monocytes (%) (Auto) 9.9 Eosinophils (%) (Auto) 7.3 Basophils (%) (Auto) 0.6 Neutrophils # (Auto) 11.6 Lymphocytes # (Auto) 2.4 Monocytes # (Auto) 1.7 Eosinophils # (Auto) 1.2 Basophils # (Auto) 0.1 CBC Comment DIFF FINAL Differential Comment Prothrombin Time 20.0 Prothromb Time International 1.8 Ratio Activated Partial 34.9 Thromboplast Time Sodium Level 140 Potassium Level 3.5 Chloride Level 96 Carbon Dioxide Level 32.0 Anion Gap 12 Blood Urea Nitrogen 8 Creatinine 0.23 Estimat Glomerular Filtration 417 Rate Random Glucose 109 Calcium Level 7.6 Blood Type A POSITIVE Antibody Screen NEGATIVE Date/Time Procedure Status Source Growth 09/09/16 02:45 Gastric Occult Blood - Final Complete Gastric GASTROCCULT POSITIVE 09/09/16 02:45 Cryptosporidium Exam Ordered Stool Stool Pending 09/09/16 02:45 Giardia Antigen (EDWIN) Ordered Stool Stool Pending 09/09/16 02:45 Ordered Stool Stool Pending 09/06/16 00:20 Cryptosporidium Exam - Final Complete Stool Stool NEGATIVE - NO CRYPTOSPORIDIUM ANTIGEN... 09/06/16 00:20 Stool Pus (EDWIN) - Final Complete Stool Stool FEW WBC'S 09/06/16 00:20 Giardia Antigen (EDWIN) - Final Complete Stool Stool NEGATIVE - NO GIARDIA ANTIGEN DETECTE... Imaging Last Impressions Abdomen X-Ray 09/09/16 0600 Signed Impressions: Service Date/Time: August 04:54 - CONCLUSION: No significant interval change. Persistent upper mid abdomen small bowel dilatation and wall thickening. Filiberto Hall MD Abdomen/Pelvis CT 09/08/16 0000 Signed Impressions: Service Date/Time: Thursday, September 08, 2016 23:45 - CONCLUSION: 1. Marked inflammatory changes of left upper quadrant with severe mesenteric edema and adjacent short segment circumferential wall thickening of mid small bowel and adjacent distal transverse colon. Possible 4 cm abscess adjacent to the mid small bowel wall. Evaluation of intraluminal versus extraluminal fluid in this region is limited as intraluminal contrast is not present in this loop. A delayed scan may be beneficial for clarification. Differential diagnosis includes inflammatory bowel disease and infection. Moderate amount of free fluid similar to prior study. No evidence of free air. 2. Chronic pancreatitis. Filiberto Hall MD ADDENDUM: Delayed images show contrast filling the thickened loops of left upper quadrant small bowel. No evidence of abscess. Findings were discussed with Dr. Henriquez. Fliiberto Hall MD Chest X-Ray 09/05/16 0000 Signed Impressions: Service Date/Time: Monday, September 05, 2016 13:24 - CONCLUSION: 1. At least mild right pleural effusion. 2. Chronic emphysematous and interstitial disease. Gumaro Schuster MD Physical Exam HEENT: Normocephalic; atraumatic; no jaundice. CHEST: CTA, N/C. CARDIAC: RRR with no murmur gallop or rubs. Hypotensive. ABDOMEN: Soft, distended, mild diffuse tenderness; no hepatosplenomegaly; bowel sounds are hypoactive. EXTREMITIES: No clubbing, cyanosis, or edema. SKIN: Skin warm and dry ORTHOPEDICALLY IMPAIRED TEACHER: Lethargic. (Rocio Carcamo) Assessment and Plan Plan ASSESSMENT: - Acute abdominal pain, LLQ, Abdominal pain that started on Tuesday. CT Abdomen and pelivs (09/02/16)----> Proximal small bowel ileus with significant intestinal and sarina-intestinal inflammation characteristic of acute enteritis. Ischemic bowel cannot be excluded, cholelithiasis, pancreatic calcification characteristic of chronic pancreatitis, significant atherosclerotic vascular disease especially involving the origin of the SMA, free fluid in the pelvis without evidence of loculated collections to suggest abscess formation. CTA (09/04/16)----> 1. Atherosclerotic change without a significant area of stenosis. 2. Inflammatory change in the mesentery in the left upper abdomen. Pancreatic calcification characteristic of chronic pancreatitis. Significant atherosclerotic vascular disease especially involving the origin of the SMA. Free fluid in the pelvis without evidence of loculated collections to suggest abscess formation. S/P EGD (09/06/16)-----> There was erythematous gastritis in the gastric antrum, LA Class esophagitis, retroflexed views revealed no abnormalities. Pathology pending. PPI. Rpt. EGD 6 weeks pending biopsy results. Incomplete colonoscopy (09/06/16)----> normal colon mucosa to splenic flexure, unable to advance beyond this area, retroflexed views revealed medium internal hemorrhoids. Rpt colonoscopy was recommended, but pt refused bowel prep. Stool studies negative for cryptosporidium, giardia, cdiff. Stool with few wbc. Pt had worsening distention with persistent nausea/vomiting with bilious/coffee ground emesis yesterday. NGT was placed. KUB (09/09/16)------> No significant interval change. Persistent upper mid abdomen small bowel dilatation and wall thickening. Abdomen/Pelvis CT (09/08/16)----> 1. Marked inflammatory changes of left upper quadrant with severe mesenteric edema and adjacent short segment circumferential wall thickening of mid small bowel and adjacent distal transverse colon. Possible 4 cm abscess adjacent to the mid small bowel wall. Evaluation of intraluminal versus extraluminal fluid in this region is limited as intraluminal contrast is not present in this loop. A delayed scan may be beneficial for clarification. Differential diagnosis includes inflammatory bowel disease and infection. Moderate amount of free fluid similar to prior study. No evidence of free air. 2. Chronic pancreatitis. ADDENDUM: Delayed images show contrast filling the thickened loops of left upper quadrant small bowel. No evidence of abscess. WBC improved today 16.9. NPO. NGT to [facility]. PSBO secondary to enteritis, ? ischemia vs. infection vs. inflammatory. Going to OR today. - Chronic pancreatitis with calcifications. Pt with history of chronic pancreatitis reportedly secondary to alcohol abuse. - Leukocytosis, persistent. WBC 16.9 - DM, HTN per attending PLAN: - NPO - NGT to [facility] - Protonix 40mg IV BID - Cont. Cipro/Flagyl - Monitor labs - Supportive care - Refused bowel prep for repeat colonoscopy - GS following, going to OR today at 1pm. - Further recommendations to follow based on results of above. - Patient seen and examined by Dr. Colbert and myself and this note is written on his behalf. (Rocio Carcamo CONDUIT MECHANIC) Physician Comments Seen and examined with CONDUIT MECHANIC, Going to OR today for Exploration. Ischemia vs. internal hernia vs. adhesions. Dr. Echeverria will follow. (Tammy Colbert MD) Rocio Carcamo Sep 10, 2016 14:54 Tammy Colbert MD Sep 10, 2016 18:26
--- NOTE | 2016-09-10 15:11 | EKG ---
Date Performed: 09/09/2016 Time Performed: 21:44:46 PTAGE: 61 years EKG: Atrial fibrillation with slow ventricular response. Prolonged QT interval Possible anterior infarct - age undetermined Lateral T wave changes are nonspecific Low QRS voltages in precordial leonarda ds Abnormal ECG PREVIOUS TRACING : 08/30/2016 22.49 Compared to previous tracing, the patient is now in atrial fibrillation with profound bradycardia. DOCTOR: Kelly White Interpretating Date/Time 09/10/2016 15:09:47
--- NOTE | 2016-09-10 19:01 | HHI.PR ---
cc: Bret Henriquez MD Immediate Post Op Note Procedure Date: Sep 10, 2016 Pre Op Diagnosis: Persistent small bowel obstruction Post Op Diagnosis: Same Surgeon: Bret Henriquez Water Safety Teacher(s): Jayda MACIEL Procedure: Exploratory Laparotomy, lysis adhesions Findings: Small bowel adhesions Complications: None Specimen(s) removed: None Estimated blood loss: 100 ml Anesthesia: General Drains: ROSHAN IVF (2000 ml) Patient to: ISC Patient Condition: Fair Date/Time of Procedure: SEE SURGICAL CARE RECORD Bret Henriquez MD Sep 10, 2016 19:01
[2016-09-10] MEDS ORDERED: MIDAZOLAM HCL 2 MG/2 ML VIAL ONE (19:03)
[2016-09-10 19:43] LABS: AUTOMATED NEUTROPHIL # 18.3 TH/MM3 (1.8-7.7); BASOPHIL # 0.1 TH/MM3 (0-0.2); BASOPHIL % 0.4 % (0.0-2.0); EOSINOPHIL # 1.2 TH/MM3 (0-0.4); EOSINOPHIL % 4.8 % (0.0-4.0); HEMATOCRIT 45.9 % (39.0-51.0); LYMPH % 9.3 % (9.0-44.0); LYMPHOCYTE # 2.3 TH/MM3 (1.0-4.8); MEAN CELL VOLUME 87.6 FL (80.0-100.0); MEAN CORPUSCULAR HEMOGLOBIN 29.3 PG (27.0-34.0); MEAN CORPUSCULAR HGB CONC 33.5 % (32.0-36.0); MONO % 9.8 % (0.0-8.0); NEUT % 75.7 % (16.0-70.0); PLATELET COUNT 440 TH/MM3 (150-450); RED BLOOD COUNT 5.23 MIL/MM3 (4.50-5.90); RED CELL DISTRIBUTION WIDTH 14.3 % (11.6-17.2); WHITE BLOOD COUNT 24.1 TH/MM3 (4.0-11.0)
[2016-09-10] MEDS ORDERED: NOREPINEPHRINE-DEXTROSE DRIP 250 ML IV ONE (19:45)
[2016-09-10 19:49] LABS: HEMO FLAGS AUTO DIFF
[2016-09-10] MEDS ORDERED: SODIUM CHLOR 0.9% 1000 ML INJ 1,000 ML IV ONE ×3 (20:00→22:45)
[2016-09-10] MEDS ORDERED: ALBUMIN HUMAN 5% 25 GM/500 ML BOTTLE IV ONE (20:00)
[2016-09-10] MEDS ORDERED: TERBUTALINE INJ 1 MG/ML AMP SQ PRN (20:00)
[2016-09-10] MEDS ORDERED: ETOMIDATE 20 MG/10 ML VIAL ONE (20:04)
--- NOTE | 2016-09-10 20:36 | HHI.PR ---
Subjective Remarks 61 YOWM with Pancreatitis,COPD,Nicotine use has Abd pain Breathing better no fever Had exp lap and lysis of adhesions Objective Vital Signs Vital Signs Date Time Temp Pulse Resp B/P Pulse Ox O2 Delivery O2 Flow Rate FiO2 09/10/16 16:00 103 09/10/16 16:00 98.0 103 23 144/67 99 09/10/16 14:00 100 09/10/16 12:00 101 09/10/16 12:00 98.5 101 22 109/56 98 09/10/16 10:00 98 09/10/16 08:00 98.6 101 25 112/63 95 09/10/16 08:00 101 09/10/16 07:40 98 Simple Mask 6.00 09/10/16 07:00 95 Nasal Cannula 5.00 09/10/16 06:00 100 09/10/16 04:00 98.5 100 18 110/57 96 09/10/16 04:00 100 09/10/16 02:00 98 09/10/16 00:00 102 09/10/16 00:00 98.3 102 25 141/95 93 09/09/16 22:00 103 I/O 09/09/16 09/09/16 09/09/16 09/10/16 09/10/16 09/10/16 07:00 15:00 23:00 07:00 15:00 23:00 Intake Total 1558 ml 1230 ml 917 ml 810 ml 762 ml Output Total 250 ml 500 ml 300 ml 400 ml 800 ml Balance 1308 ml 730 ml 617 ml 410 ml -38 ml Intake Oral 30 ml 30 ml 30 ml 30 ml IV Total 1558 ml 1200 ml 887 ml 780 ml 732 ml Output Urine Total 250 ml 450 ml 300 ml 400 ml 350 ml Gastric Drainage Total 50 ml 450 ml # Voids 2 # Bowel Movements 1 0 Result Diagram: 09/10/16 1906 09/10/16 0359 Objective Remarks GENERAL: MBMN WM with Mild sob SKIN: Warm and dry. HEAD: Normocephalic. EYES: No scleral icterus. No injection or drainage. NECK: Supple, trachea midline. No JVD or lymphadenopathy. CARDIOVASCULAR: Regular rate and rhythm without murmurs, gallops, or rubs. RESPIRATORY: Breath sounds equal bilaterally. No accessory muscle use. GASTROINTESTINAL: Abdomen soft, non-tender, nondistended. Distended, tender MUSCULOSKELETAL: No cyanosis, or edema. BACK: Nontender without obvious deformity. No CVA tenderness. A/P Assessment and Plan COPD Nicotine Pancreatitis DM PLAN: Aerosol nebs Cont Abx Supplement 02 Velasquez Hill MD Sep 10, 2016 20:36
[2016-09-10 20:40] LABS: BICARBONATE 33.4 MEQ/L (21.0-32.0); PLATELET ESTIMATE SMEAR HIGH (NORMAL); PLATELET MORPHOLOGY NORMAL (NORMAL); POTASSIUM 3.2 MEQ/L (3.5-5.1); SCAN/DIFF AUTO DIFF CONFIRMED
--- NOTE | 2016-09-10 20:55 | RADRPT ---
EXAM DATE/TIME: 09/10/2016 19:57 [facility] COMPARISON: CHEST PA & LAT, September 05, 2016, 13:24. CHEST SINGLE AP, September 02, 2016, 13:24. INDICATIONS : Post reintubation. Respiratory failure MEDICAL HISTORY : Hypertension. Chronic obstructive pulmonary disease. Gastroesophageal reflux disease. SURGICAL HISTORY : None. ENCOUNTER: Initial ACUITY: 1 day PAIN SCORE: Non-responsive. LOCATION: Bilateral chest FINDINGS: A single AP supine portable view of the chest was obtained and demonstrates interval placement of a n asogastric tube which is seen coursing through the esophagus and into the stomach. An endotracheal tu be is in place with the tip approximately 3 cm above the regine. A right internal jugular central emily ous line has been placed with the tip projected over superior vena cava. There is no evidence of a pn eumothorax. Right apical pleural-parenchymal changes again noted. The previous noted right effusion h as increased in size. There is new hazy opacity in the perihilar regions and both lung bases. The lef t costophrenic angle appears blunted as well. Overlying electrocardiogram leads are present. CONCLUSION: 1. Interval intubation and placement of central venous line. 2. Bilateral effusions right greater than left with new hazy opacity in both lungs. Bret Peterson MD on September 10, 2016 at 20:51 Board Certified Radiologist. This report was verified electronically.
[2016-09-10 21:03] LABS: CALCIUM-PROTEIN CORRECTED 8.2 MG/DL (8.5-10.1)
[2016-09-10 21:14] LABS: BLOOD GAS BASE EXCESS 2.2 mmol/L (-2-2); BLOOD GAS CARBOXYHEMOGLOBIN 1.2 % (0-4); BLOOD GAS HCO3 28 mmol/L (22-26); BLOOD GAS METHEMOGLOBIN 0.7 % (0-2); BLOOD GAS O2 HGB SATURATION 88 % (90-100); BLOOD GAS OXYGEN CONTENT 17.4 Vol % (12.0-20.0); BLOOD GAS PCO2 59 mmHg (38-42); BLOOD GAS PO2 64 mmHg (61-120); BLOOD GAS TOTAL HGB 14.1 G/DL (12.0-16.0); CRITICAL VALUE YES; DRAW SITE ART LINE; FIO2 100 %; OXYGEN DEVICE VENTILATOR; TEMP CORR TO 98.6; VENT SETTINGS AC 14/500/PEEP5
[2016-09-10 21:15] LABS: STAT NO
[2016-09-10] MEDS: LACTATED RINGER'S 1000 ML INJ 1,000 ML IV SCH (21:15)
[2016-09-10] MEDS ORDERED: ETOMIDATE 40 MG/20 ML VIAL IV PUSH ONE (21:15)
[2016-09-10] MEDS ORDERED: ROCURONIUM INJ 50 MG/5 ML VIAL IV ONE (21:15)
--- NOTE | 2016-09-10 21:15 | PD.CONS ---
[facility] Service Critical Care Medicine Consult Requested By Primary Care Physician [facility] History of Present Illness This is a 61-year-old male with a past medical history of chronic pancreatitis, hypertension, type 2 diabetes who presented with abdominal pain that started Tuesday. Patient stated that abdominal pain is located in the left lower quadrant and it was very mild. He said over the weekend has worsened in intensity and is constant. Patient stated that he has some nausea that resolves or improves with food. Deny any emesis. Patient also complains of a chronic productive cough that has been the same. He denies any diarrhea or constipation and see that his stools are normal. Patient also denies any fever or chills. She was admitted to hospitalist service and was evaluated subsequently by GI, Dr. Pinto as well as Dr. Henriquez from general surgery in view of abnormal CT abdomen pelvis with left upper quadrant inflammatory change in these and treat with edema and KUBs raising question of SBO. She underwent E lap with lysis of lesions under general anesthesia by Dr. Henriquez on 09/10, EBL 100 cc, received 2 L crystalloid intraoperatively, postop diagnosis small bowel adhesions. Patient was kept intubated postoperatively and transferred to [facility]. I saw the patient shortly after his arrival to the ICU. He had just been started on Versed and fentanyl and dropped his blood pressure to the 60 systolic range. He was ordered a fluid bolus 2 L crystalloids stat and started on Levophed for hypotension. Stat cultures were sent. Patient also is having problem with his O2 sats were dropping in the 80s. Stat chest x-ray was ordered. While waiting for chest x-ray, ET tube dispatcher ship pilot balloon appeared damaged hence cuff was not holding air so patient was sedated with Etomidate/ Fentanyl/ Rocuronium and ET tube was changed over a tube exchanger which was confirmed with a postprocedure chest x-ray with satisfactory placement of ET tube, right IJ central line in place, bilateral interstitial infiltrates with hyperinflated lung rothman, no pneumothorax. Patient was requiring 2 mics of Levophed for pressor support. 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 Cleared per Infection Control. Patient does not require isolation for hx of MRSA prior to 09/10/15. Administered Medications Medications (Trade) Dose Ordered Sig/Alfred Route PRN Reason Start Time Stop Time Status Last Admin Dose Admin IV Flush (NS Flush) 2 ml UNSCH PRN FLUSH FLUSH AFTER USING IV ACCESS 09/02/16 17:45 09/08/16 06:43 IV Flush (NS Flush) 2 ml BID FLUSH 09/02/16 21:00 09/10/16 09:40 Ondansetron HCl (Zofran Inj) 4 mg Q6H PRN IVP NAUSEA OR VOMITING 09/02/16 17:45 09/08/16 09:04 Enoxaparin Sodium 40 mg 40 mg Q24H SQ 09/02/16 17:45 Hold 09/07/16 16:36 Ciprofloxacin/ Dextrose 200 ml @ 200 mls/hr Q12H IV 09/03/16 04:00 09/10/16 16:26 Metronidazole (Flagyl 500 Mg Inj) 100 ml @ 100 mls/hr Q8H IV 09/02/16 23:00 09/10/16 15:28 Lisinopril (Prinivil) 10 mg DAILY PO 09/03/16 09:00 09/07/16 11:27 Morphine Sulfate (Morphine Inj) 4 mg Q3H PRN IV PUSH PAIN SCALE 7 TO 10 09/04/16 13:30 09/08/16 09:05 Fluticasone Propionate (Flonase Anuj Spr) 1 spray BID NASAL 09/05/16 12:00 09/10/16 09:41 Loratadine (Claritin) 10 mg DAILY PO 09/06/16 09:00 09/09/16 09:43 Guaifenesin (Mucinex Er) 600 mg BID PO 09/06/16 11:00 09/09/16 20:42 Pantoprazole Sodium 40 mg 40 mg Q12H IV PUSH 09/09/16 21:00 09/10/16 09:40 Clindamycin Phosphate/Sodium Chloride (Cleocin Inj/NS Inj) 104 ml @ 208 mls/hr Q8H IV 09/10/16 13:00 09/10/16 14:01 Physical Exam Vital Signs Vital Signs Date Time Temp Pulse Resp B/P Pulse Ox O2 Delivery O2 Flow Rate FiO2 09/10/16 16:00 103 09/10/16 16:00 98.0 103 23 144/67 99 09/10/16 14:00 100 09/10/16 12:00 101 09/10/16 12:00 98.5 101 22 109/56 98 09/10/16 10:00 98 09/10/16 08:00 98.6 101 25 112/63 95 09/10/16 08:00 101 09/10/16 07:40 98 Simple Mask 6.00 09/10/16 07:00 95 Nasal Cannula 5.00 09/10/16 06:00 100 09/10/16 04:00 98.5 100 18 110/57 96 09/10/16 04:00 100 09/10/16 02:00 98 09/10/16 00:00 102 09/10/16 00:00 98.3 102 25 141/95 93 09/09/16 22:00 103 Physical Exam HEENT/ Neuro: Sedated, orally intubated, No pallor, no icterus, tongue/ mucosa dry Neck: Right IJ central line in place Chest/Pulm: on mech vent, good air entry bilaterally, no wheezing or crackles CVS: S1-S2 regular, no murmur GI/abdomen: soft, nontender, bowel sounds not appreciated, dressing over incision site clean dry and intact, ROSHAN drain in place Extremities: warm bilaterally, no edema Laboratory Laboratory Tests Test 09/10/16 09/10/16 03:59 19:06 White Blood Count 16.9 24.1 Red Blood Count 5.02 5.23 Hemoglobin 14.5 15.4 Hematocrit 44.7 45.9 Mean Corpuscular Volume 88.9 87.6 Mean Corpuscular Hemoglobin 28.9 29.3 Mean Corpuscular Hemoglobin 32.5 33.5 Concent Red Cell Distribution Width 14.1 14.3 Platelet Count 338 440 Mean Platelet Volume 7.9 7.9 Neutrophils (%) (Auto) 68.3 75.7 Lymphocytes (%) (Auto) 13.9 9.3 Monocytes (%) (Auto) 9.9 9.8 Eosinophils (%) (Auto) 7.3 4.8 Basophils (%) (Auto) 0.6 0.4 Neutrophils # (Auto) 11.6 18.3 Lymphocytes # (Auto) 2.4 2.3 Monocytes # (Auto) 1.7 2.4 Eosinophils # (Auto) 1.2 1.2 Basophils # (Auto) 0.1 0.1 CBC Comment DIFF FINAL AUTO DIFF Differential Comment AUTO DIFF CONFIRMED Prothrombin Time 20.0 Prothromb Time International 1.8 Ratio Activated Partial 34.9 Thromboplast Time Sodium Level 140 138 Potassium Level 3.5 3.2 Chloride Level 96 95 Carbon Dioxide Level 32.0 33.4 Anion Gap 12 10 Blood Urea Nitrogen 8 6 Creatinine 0.23 0.23 Estimat Glomerular Filtration 417 417 Rate Random Glucose 109 127 Calcium Level 7.6 7.0 Blood Type A POSITIVE Antibody Screen NEGATIVE Platelet Estimate HIGH Platelet Morphology Comment NORMAL Red Cell Morphology Comment NORMAL Date/Time Procedure Status Source Growth 09/09/16 02:45 Gastric Occult Blood - Final Complete Gastric GASTROCCULT POSITIVE 09/09/16 02:45 Cryptosporidium Exam Ordered Stool Stool Pending 09/09/16 02:45 Giardia Antigen (EDWIN) Ordered Stool Stool Pending 09/09/16 02:45 Ordered Stool Stool Pending 09/06/16 00:20 Cryptosporidium Exam - Final Complete Stool Stool NEGATIVE - NO CRYPTOSPORIDIUM ANTIGEN... 09/06/16 00:20 Stool Pus (EDWIN) - Final Complete Stool Stool FEW WBC'S 09/06/16 00:20 Giardia Antigen (EDWIN) - Final Complete Stool Stool NEGATIVE - NO GIARDIA ANTIGEN DETECTE... Result Diagram: 09/10/16190509/10/161905 Septic Shock Reassessment Heart: Regular rate and rhythm Lungs: Clear Skin: Warm Peripheral Pulses: Weak Right Radial Capillary Refill: Sluggish Assessment and Plan Assessment and Plan 61-year-old male with: Abdominal pain Mesenteric edema Small bowel adhesions/SBO status post a lap with lysis of adhesions and removal of 2 L of ascites 09/10 Advanced COPD Acute respiratory failure on mechanical ventilation Diabetes mellitus Chronic pancreatitis History of gallstones Plan: Neuro: Sedation with propofol/fentanyl. Daily sedation vacation. Follow neuro status. Cardiovascular: Continue aggressive fluid resuscitation. Levophed for pressor support as needed. Hold lisinopril if hypotensive Pulmonary: Continue mechanical ventilation, vent bundle, bronchodilators. Daily C Pap trials starting tomorrow to decide extubation. ET tube exchanged due to palate balloon being damaged. Being followed by pulmonary medicine Dr. Hill. GI/liver: Nothing by mouth for now. NG suction. Being followed by Dr. Henriquez from general surgery status post Elap ID: On Levaquin/Flagyl/clindamycin IV. Worsening leukocytosis noted. Gonsales cultures ordered. Follow lactic acid levels in view of hypotension. Consider ID consult for antibiotic management if clinically deteriorating in a.m. Endocrine: SSI for glycemic control Renal/: Aggressive fluid resuscitation. Patient appears dehydrated. Strict intake output, monitor and replete electrolytes, follow BUN/creatinine. Heme: Follow CBC Prophylaxis: PPI/SCDs. Subcutaneous heparin/Lovenox when okay with general surgery. Condition critical Time spent on critical care excluding procedures 50 minutes Solomon Morales MD Sep 10, 2016 21:15
[2016-09-10] MEDS: fentaNYL 2,500 MCG/NS 250 ML IV SCH (21:17)
[2016-09-10] MEDS: MIDAZOLAM 100 MG/NS 100 ML DRIP Premix IV SCH (21:18)
[2016-09-10] MEDS: NOREPINEPHRINE-DEXTROSE DRIP 250 ML IV SCH (21:18)
[2016-09-10 22:33] LABS: BLOOD, URINE LARGE (NEG); GLUCOSE,URINE NEG (NEG); HYALINE CAST, URINE 9 /lpf (RARE); KETONE, URINE 80 mg/dL (NEG); MUCUS URINE FEW /lpf (OCC); NITRITE,URINE NEG (NEG); URINE COLOR YELLOW (YELLW/STRAW)
[2016-09-10 22:36] LABS: COMMENT (UR) CATH-CULTURE IND; CULTURE IF INDICATED CATH CULTURE IND
[2016-09-11] VITALS (18 sets, daily range): BP systolic 86–120; BP diastolic 47–59; PULSE 108–141; RESP 14–18; TEMP 98.2–99.6; O2SAT 82–93
[2016-09-11] MEDS: NORMOSOL R INJ 1,000 ML IV SCH ×2 (00:15→01:53)
[2016-09-11] MEDS: metroNIDAZOLE 500 MG INJ 100 ML IV SCH ×4 (00:33→22:43)
[2016-09-11] MEDS: RESP: ALBUTEROL 1.25 MG/3 ML NEB (SCH) NEB ×5 (03:17→21:17)
[2016-09-11] MEDS: NOREPINEPHRINE-DEXTROSE DRIP 250 ML IV SCH ×2 (03:24→12:30)
[2016-09-11 03:30] LABS: AUTOMATED NEUTROPHIL # 17.9 TH/MM3 (1.8-7.7); BASOPHIL # 0.1 TH/MM3 (0-0.2); BASOPHIL % 0.6 % (0.0-2.0); EOSINOPHIL # 0.7 TH/MM3 (0-0.4); EOSINOPHIL % 2.9 % (0.0-4.0); HEMATOCRIT 44.5 % (39.0-51.0); LYMPH % 11.8 % (9.0-44.0); LYMPHOCYTE # 2.9 TH/MM3 (1.0-4.8); MEAN CELL VOLUME 89.7 FL (80.0-100.0); MEAN CORPUSCULAR HEMOGLOBIN 28.7 PG (27.0-34.0); MEAN CORPUSCULAR HGB CONC 31.9 % (32.0-36.0); MONO % 11.4 % (0.0-8.0); NEUT % 73.3 % (16.0-70.0); PLATELET COUNT 459 TH/MM3 (150-450); RED BLOOD COUNT 4.96 MIL/MM3 (4.50-5.90); RED CELL DISTRIBUTION WIDTH 14.5 % (11.6-17.2); WHITE BLOOD COUNT 24.5 TH/MM3 (4.0-11.0)
[2016-09-11 03:35] LABS: HEMO FLAGS AUTO DIFF
[2016-09-11 04:05] LABS: BICARBONATE 30.4 MEQ/L (21.0-32.0); CALCIUM-PROTEIN CORRECTED 7.8 MG/DL (8.5-10.1); POTASSIUM 3.3 MEQ/L (3.5-5.1); TOTAL BILIRUBIN ADULT 0.5 MG/DL (0.2-1.0)
[2016-09-11] MEDS: LACTATED RINGER'S 1000 ML INJ 1,000 ML IV SCH ×3 (04:12→20:00)
[2016-09-11] MEDS: CIPROFLOXACIN 400 MG PREMIX 200 ML IV SCH (04:12)
[2016-09-11 04:37] LABS: PLATELET ESTIMATE SMEAR HIGH (NORMAL); PLATELET MORPHOLOGY NORMAL (NORMAL); SCAN/DIFF AUTO DIFF CONFIRMED
[2016-09-11 04:38] LABS: TOXIC VACUOLATION PRESENT (NONE SEEN)
[2016-09-11] MEDS ORDERED: SODIUM CHLOR 0.9% 1000 ML INJ 1,000 ML IV ONE (06:00)
[2016-09-11] MEDS: CLINDAMYCIN INJ 600 MG in SODIUM CHLORIDE 0.9% INJ 100 ML IV SCH (06:56)
[2016-09-11] MEDS: INSULIN ASPART SUPPLEMENTAL SCALE SQ SCH ×4 (07:00→21:00)
[2016-09-11] MEDS: MIDAZOLAM 100 MG/NS 100 ML DRIP Premix IV SCH (07:16)
[2016-09-11] MEDS: CHLORHEXIDINE 0.12% (ORAL KIT) 15 ML CUP MT SCH ×2 (08:00→20:00)
[2016-09-11] MEDS: SODIUM CHLORIDE 0.9% FLUSH 5 ML FLUSH FLUSH SCH ×2 (09:00→20:14)
[2016-09-11] MEDS: LORATADINE 10 MG TAB PO SCH (09:00)
[2016-09-11] MEDS: LISINOPRIL 10 MG TAB PO SCH (09:00)
[2016-09-11] MEDS: PANTOPRAZOLE SODIUM 40 MG VIAL IV PUSH SCH ×2 (09:00→20:14)
[2016-09-11] MEDS: guaiFENesin E.R. 600 MG TAB PO SCH ×2 (09:00→20:15)
[2016-09-11] MEDS: FLUTICASONE PROPIONATE 50 MCG/ACT 16 GM NASAL SPRAY NASAL SCH ×3 (09:00→21:00)
[2016-09-11] MEDS ORDERED: ALBUMIN HUMAN 5% 25 GM/500 ML BOTTLE ONE ×2 (10:06→10:40)
--- NOTE | 2016-09-11 10:22 | HHI.CCPN ---
Subjective Remarks/Hospital Course This is a 61-year-old male with a past medical history of chronic pancreatitis, hypertension, type 2 diabetes who presented with abdominal pain that started Tuesday. Patient stated that abdominal pain is located in the left lower quadrant and it was very mild. He said over the weekend has worsened in intensity and is constant. Patient stated that he has some nausea that resolves or improves with food. Deny any emesis. Patient also complains of a chronic productive cough that has been the same. He denies any diarrhea or constipation and see that his stools are normal. Patient also denies any fever or chills. She was admitted to hospitalist service and was evaluated subsequently by GI, Dr. Pinto as well as Dr. Henriquez from general surgery in view of abnormal CT abdomen pelvis with left upper quadrant inflammatory change in these and treat with edema and KUBs raising question of SBO. She underwent E lap with lysis of lesions under general anesthesia by Dr. Henriquez on 09/10, EBL 100 cc, received 2 L crystalloid intraoperatively, postop diagnosis small bowel adhesions. Patient was kept intubated postoperatively and transferred to [facility]. I saw the patient shortly after his arrival to the ICU. He had just been started on Versed and fentanyl and dropped his blood pressure to the 60 systolic range. He was ordered a fluid bolus 2 L crystalloids stat and started on Levophed for hypotension. Stat cultures were sent. Patient also is having problem with his O2 sats were dropping in the 80s. Stat chest x-ray was ordered. While waiting for chest x-ray, ET tube pilot supervisor balloon appeared damaged hence cuff was not holding air so patient was sedated with Etomidate/ Fentanyl/ Rocuronium and ET tube was changed over a tube exchanger which was confirmed with a postprocedure chest x-ray with satisfactory placement of ET tube, right IJ central line in place, bilateral interstitial infiltrates with hyperinflated lung rothman, no pneumothorax. Patient was requiring 2 mics of Levophed for pressor support. 09/11: Ongoing hypotension and difficulty with oxygenation. Persistent hypotension responsive to volume. CVP 20. Suspect chronic pulmonary hypertension with heavily preload-dependent cardiac output. Will start milrinone for RV support and add vasopressin to levophed prn. Sustained tachycardia prohibits continued escalation of levophed. Underlying lung function is marginal at best. Objective Vital Signs Date Time Temp Pulse Resp B/P Pulse Ox O2 Delivery O2 Flow Rate FiO2 09/11/16 08:13 89 100 09/11/16 06:00 115 09/11/16 04:00 98.7 18 120/59 09/10/16 19:38 Ventilator 09/10/16 07:40 6.00 Intake and Output 09/10/16 09/10/16 09/11/16 08:00 16:00 00:00 Intake Total 810 ml 762 ml 2834 ml Output Total 400 ml 800 ml 540 ml Balance 410 ml -38 ml 2294 ml Result Diagram: 09/11/16 0315 09/11/16 0315 Other Results Microbiology Date/Time Procedure Status Source Growth 09/09/16 02:45 Gastric Occult Blood - Final Complete Gastric GASTROCCULT POSITIVE Laboratory Tests Test 09/10/16 20:56 Blood Gas Puncture Site ART LINE Blood Gas Patient Temperature 98.6 Blood Gas HCO3 28 mmol/L (22-26) Blood Gas Base Excess 2.2 mmol/L (-2-2) Blood Gas Oxygen Saturation 88 % (90-100) Arterial Blood pH 7.30 (7.380-7.420) Arterial Blood Partial 59 mmHg (38-42) Pressure CO2 Arterial Blood Partial 64 mmHg Pressure O2 (61-120) Arterial Blood Oxygen Content 17.4 Vol % (12.0-20.0) Arterial Blood 1.2 % (0-4) Carboxyhemoglobin Arterial Blood Methemoglobin 0.7 % (0-2) Blood Gas Hemoglobin 14.1 G/DL (12.0-16.0) Oxygen Delivery Device VENTILATOR Blood Gas Ventilator Setting AC 14/500/PEEP5 Blood Gas Inspired Oxygen 100 % Objective Remarks HEENT/ Neuro: Sedated, orally intubated Neck: Right IJ central line in place Chest/Pulm: on mech vent, good air entry bilaterally, mile wheezing, no crackles CVS: S1-S2 regular, no murmur GI/abdomen: soft, nontender, bowel sounds quiet dressing over incision site clean dry and intact, ROSHAN drain in place Extremities: warm bilaterally, no edema, well perfused. A/P Assessment and Plan 61-year-old male with: Abdominal pain Mesenteric edema Small bowel adhesions/SBO status post a lap with lysis of adhesions and removal of 2 L of ascites 09/10 Advanced COPD Acute respiratory failure on mechanical ventilation Diabetes mellitus Chronic pancreatitis History of gallstones Plan: Neuro: Sedation with propofol/fentanyl. Daily sedation vacation. Follow neuro status. Cardiovascular: Continue aggressive fluid resuscitation. Levophed for pressor support as needed. Hold lisinopril if hypotensive Pulmonary: Continue mechanical ventilation, vent bundle, bronchodilators. Daily C Pap trials starting tomorrow to decide extubation. ET tube exchanged due to palate balloon being damaged. Being followed by pulmonary medicine Dr. Hill. GI/liver: Nothing by mouth for now. NG suction. Being followed by Dr. Henriquez from general surgery status post Elap ID: On Levaquin/Flagyl/clindamycin IV. Worsening leukocytosis noted. Gonsales cultures ordered. Follow lactic acid levels in view of hypotension. Consider ID consult for antibiotic management if clinically deteriorating in a.m. Endocrine: SSI for glycemic control Renal/: Aggressive fluid resuscitation. Patient appears dehydrated. Strict intake output, monitor and replete electrolytes, follow BUN/creatinine. Heme: Follow CBC Prophylaxis: PPI/SCDs. Subcutaneous heparin/Lovenox when okay with general surgery. Overall impression: Critically ill with large A-aO2 gradient and residual dehydration. Critical Care 36 mins Tristin Ramirez MD Sep 11, 2016 10:22
[2016-09-11] MEDS ORDERED: ALBUMIN HUMAN 5% 12.5 GM/250 ML BOTTLE IV ONE (10:42)
--- NOTE | 2016-09-11 11:04 | PD.CONS ---
History of Present Illness Service Infectious disease Consult Requested By Dr Frances Morales Reason for Consult Evaluate patient with sepsis Primary Care Physician [facility] Diagnoses: History of Present Illness Patient seen and examined. Records reviewed. Patient is a 61-year-old male, admitted to the hospital September 03 complaining of abdominal pain. He had leukocytosis. CT of abdomen and pelvis showed findings suggestive of enteritis versus ischemic bowel. Initially placed on Cipro and Flagyl. GI was consult today and ordered CTA. CTA did not show any significant stenosis. He underwent upper endoscopy which showed gastritis and esophagitis. Colonoscopy was not completed and it was only done up to the splenic flexure, and findings were normal. Patient also has had problem with some coughing, and his initial chest x-ray showed chronic right pleural parenchymal thickening. Patient's abdominal pain has improved. He had persistent leukocytosis however. Repeat CT did show some abnormal findings in the small bowel. There are some findings of small bowel obstruction, so the patient was taken to surgery yesterday. He had exploratory laparotomy with lysis of adhesions. Postoperatively he remained on the vent, and became hypotensive. He is currently sedated on the vent, FiO2 is at 100%. He is on Levophed 20 mics. He has been afebrile. Infectious disease consultation has been requested to evaluate the patient with sepsis Review of Systems ROS Limitations: Clinical Condition, Intubated Past Family Social History Allergies: Coded Allergies: Penicillin (Verified Allergy, Severe, SWELLING, 09/11/16) has tolerated Cephalosporins in previous admissions *MDRO Multi-Drug Resistant Organism (Verified Adverse Reaction, Unknown, ) Hx MRSA Sputum 2006, Wounds 2003 MRSA PCR Screen negative 11/25/14 & 09/10/15. Cleared per Infection Control. Patient does not require isolation for hx of MRSA prior to 09/10/15. 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 Occasional alcohol use. Denies any recreational drug use. Physical Exam Vital Signs Vital Signs Date Time Temp Pulse Resp B/P Pulse Ox O2 Delivery O2 Flow Rate FiO2 09/11/16 08:13 89 100 09/11/16 08:00 117 09/11/16 08:00 98.3 117 18 101/54 90 Automatic Cuff 09/11/16 06:00 115 09/11/16 04:04 92 100 09/11/16 04:00 100 09/11/16 04:00 98.7 111 18 93 120/59 09/11/16 04:00 111 09/11/16 02:00 109 09/11/16 01:18 93 100 09/11/16 00:00 98.7 108 14 93 101/51 09/11/16 00:00 100 09/11/16 00:00 108 09/10/16 22:01 91 100 09/10/16 22:00 103 09/10/16 21:03 92 100 09/10/16 20:00 100 09/10/16 20:00 111 09/10/16 20:00 98.5 113 14 99 155/75 09/10/16 19:54 90 100 09/10/16 19:38 82 Ventilator 100 09/10/16 19:00 93 Mechanical Ventilator 100 09/10/16 16:00 103 09/10/16 16:00 98.0 103 23 144/67 99 09/10/16 14:00 100 09/10/16 12:00 101 09/10/16 12:00 98.5 101 22 109/56 98 Physical Exam GENERAL: This is a well-nourished, well-developed male, sedated, on the vent, in no apparent distress. SKIN: Cool and dry. No generalized rash, no ecchymosis. HEAD: Atraumatic. Normocephalic. No temporal or scalp tenderness. EYES: [place] conjunctivae. Pupils equal round and reactive. Has scleral edema. No scleral icterus. No injection or drainage. ENT: Nose without bleeding, or purulent drainage. Endotracheal tube is in the mouth. NECK: Trachea midline. No JVD or lymphadenopathy. Supple, nontender, no meningeal signs. CARDIOVASCULAR: Regular rate and rhythm without murmurs, gallops, or rubs. RESPIRATORY: Coarse breath sounds bilaterally, decreased at the bases. GASTROINTESTINAL: Abdomen soft, no reaction to palpation, mildly distended. MIdline incision, dry, no erythema. Bowel sounds hypoactive. MUSCULOSKELETAL: Extremities without clubbing, cyanosis, or edema. No joint effusion, or edema noted. NEUROLOGICAL: Sedated PSYCH: Unable to assess LINE: No evidence of infection : Tav[place] in place, urine looks clear Laboratory Laboratory Tests Test 09/10/16 09/10/16 09/10/16 09/10/16 19:06 20:56 21:10 22:00 White Blood Count 24.1 Red Blood Count 5.23 Hemoglobin 15.4 Hematocrit 45.9 Mean Corpuscular Volume 87.6 Mean Corpuscular Hemoglobin 29.3 Mean Corpuscular Hemoglobin 33.5 Concent Red Cell Distribution Width 14.3 Platelet Count 440 Mean Platelet Volume 7.9 Neutrophils (%) (Auto) 75.7 Lymphocytes (%) (Auto) 9.3 Monocytes (%) (Auto) 9.8 Eosinophils (%) (Auto) 4.8 Basophils (%) (Auto) 0.4 Neutrophils # (Auto) 18.3 Lymphocytes # (Auto) 2.3 Monocytes # (Auto) 2.4 Eosinophils # (Auto) 1.2 Basophils # (Auto) 0.1 CBC Comment AUTO DIFF Differential Comment AUTO DIFF CONFIRMED Platelet Estimate HIGH Platelet Morphology Comment NORMAL Red Cell Morphology Comment NORMAL Sodium Level 138 Potassium Level 3.2 Chloride Level 95 Carbon Dioxide Level 33.4 Anion Gap 10 Blood Urea Nitrogen 6 Creatinine 0.23 Estimat Glomerular Filtration 417 Rate Random Glucose 127 Calcium Level 7.0 Protein Corrected Calcium 8.2 Total Protein 4.8 Blood Gas Puncture Site ART LINE Blood Gas Patient Temperature 98.6 Blood Gas HCO3 28 Blood Gas Base Excess 2.2 Blood Gas Oxygen Saturation 88 Arterial Blood pH 7.30 Arterial Blood Partial 59 Pressure CO2 Arterial Blood Partial 64 Pressure O2 Arterial Blood Oxygen Content 17.4 Arterial Blood 1.2 Carboxyhemoglobin Arterial Blood Methemoglobin 0.7 Blood Gas Hemoglobin 14.1 Oxygen Delivery Device VENTILATOR Blood Gas Ventilator Setting AC 14/500/PEEP5 Blood Gas Inspired Oxygen 100 Lactic Acid Level 1.7 Urine Color YELLOW Urine Turbidity HAZY Urine pH 6.0 Urine Specific [place] 1.017 Urine Protein 30 Urine Glucose (UA) NEG Urine Ketones 80 Urine Occult Blood LARGE Urine Nitrite NEG Urine Bilirubin NEG Urine Urobilinogen LESS THAN 2.0 Urine Leukocyte Esterase SMALL Urine RBC Urine WBC 17 Urine Hyaline Casts 9 Urine Mucus FEW Microscopic Urinalysis Comment CATH-CULTURE IND Test 09/11/16 03:15 White Blood Count 24.5 Red Blood Count 4.96 Hemoglobin 14.2 Hematocrit 44.5 Mean Corpuscular Volume 89.7 Mean Corpuscular Hemoglobin 28.7 Mean Corpuscular Hemoglobin 31.9 Concent Red Cell Distribution Width 14.5 Platelet Count 459 Mean Platelet Volume 7.8 Neutrophils (%) (Auto) 73.3 Lymphocytes (%) (Auto) 11.8 Monocytes (%) (Auto) 11.4 Eosinophils (%) (Auto) 2.9 Basophils (%) (Auto) 0.6 Neutrophils # (Auto) 17.9 Lymphocytes # (Auto) 2.9 Monocytes # (Auto) 2.8 Eosinophils # (Auto) 0.7 Basophils # (Auto) 0.1 CBC Comment AUTO DIFF Differential Comment AUTO DIFF CONFIRMED Toxic Vacuolation PRESENT Platelet Estimate HIGH Platelet Morphology Comment NORMAL Sodium Level 141 Potassium Level 3.3 Chloride Level 100 Carbon Dioxide Level 30.4 Anion Gap 11 Blood Urea Nitrogen 5 Creatinine 0.17 Estimat Glomerular Filtration 591 Rate Random Glucose 133 Calcium Level 6.5 Protein Corrected Calcium 7.8 Total Bilirubin 0.5 Aspartate Amino Transf 50 (AST/SGOT) Alanine Aminotransferase 87 (ALT/SGPT) Alkaline Phosphatase 38 Total Protein 4.5 Albumin 1.8 Date/Time Procedure Status Source Growth 09/11/16 10:55 Aerobic Blood Culture Received Blood Peripheral Pending 09/11/16 10:55 Anaerobic Blood Culture Received Blood Peripheral Pending 09/10/16 22:00 Urine Culture Received Urine Clean Catch Pending 09/10/16 22:00 Gram Stain - Final Resulted Sputum Endotracheal 09/10/16 22:00 Sputum Culture Resulted Sputum Endotracheal Pending 09/09/16 02:45 Gastric Occult Blood - Final Complete Gastric GASTROCCULT POSITIVE 09/09/16 02:45 Cryptosporidium Exam Ordered Stool Stool Pending 09/09/16 02:45 Giardia Antigen (EDWIN) Ordered Stool Stool Pending 09/09/16 02:45 Ordered Stool Stool Pending Result Diagram: 09/11/16 0315 09/11/16 0315 Imaging RADIOLOGY STUDIES/FILMS REVIEWED Chest X-Ray 09/10/16 0000 Signed Impressions: Service Date/Time: Saturday, September 10, 2016 19:57 - CONCLUSION: 1. Interval intubation and placement of central venous line. 2. Bilateral effusions right greater than left with new hazy opacity in both lungs. Bret Peterson MD Abdomen X-Ray 09/09/16 0600 Signed Impressions: Service Date/Time: August 04:54 - CONCLUSION: No significant interval change. Persistent upper mid abdomen small bowel dilatation and wall thickening. Filiberto Hall MD Abdomen/Pelvis CT 09/08/16 0000 Signed Impressions: Service Date/Time: Thursday, September 08, 2016 23:45 - CONCLUSION: 1. Marked inflammatory changes of left upper quadrant with severe mesenteric edema and adjacent short segment circumferential wall thickening of mid small bowel and adjacent distal transverse colon. Possible 4 cm abscess adjacent to the mid small bowel wall. Evaluation of intraluminal versus extraluminal fluid in this region is limited as intraluminal contrast is not present in this loop. A delayed scan may be beneficial for clarification. Differential diagnosis includes inflammatory bowel disease and infection. Moderate amount of free fluid similar to prior study. No evidence of free air. 2. Chronic pancreatitis. Filiberto Hall MD ADDENDUM: Delayed images show contrast filling the thickened loops of left upper quadrant small bowel. No evidence of abscess. Findings were discussed with Dr. Henriquez. Filiberto Hall MD Assessment and Plan Assessment and Plan IMPRESSION Sepsis with shock, S/P exp lap with LUCY Respiratory failure, requiring a lot of O2, FiO2 at 100% - fluid, PNA, ARDS S/P exp lap, LUCY, for SBO Allergy to PCN, has tolerated Cephalosporins in the past RECOMMENDATION Follow C/S Follow CBC Cefepime Stop Cipro and Clinda Flagyl IV Vanco Monitor progress I will follow along with you Thank you for this consultation Discussed Condition With D/W Tati Howard MD Sep 11, 2016 11:04
--- NOTE | 2016-09-11 11:30 | HHI.PR ---
Subjective Subjective Notes Intubated, sedated. NG draining 115. Objective Vitals/I&O Vital Signs Date Time Temp Pulse Resp B/P Pulse Ox O2 Delivery O2 Flow Rate FiO2 09/11/16 08:13 89 100 09/11/16 08:00 117 09/11/16 08:00 98.3 18 101/54 Automatic Cuff 09/10/16 19:38 Ventilator 09/10/16 07:40 6.00 Labs Laboratory Tests Test 09/10/16 09/10/16 09/10/16 09/10/16 19:06 20:56 21:10 22:00 White Blood Count 24.1 Red Blood Count 5.23 Hemoglobin 15.4 Hematocrit 45.9 Mean Corpuscular Volume 87.6 Mean Corpuscular Hemoglobin 29.3 Mean Corpuscular Hemoglobin 33.5 Concent Red Cell Distribution Width 14.3 Platelet Count 440 Mean Platelet Volume 7.9 Neutrophils (%) (Auto) 75.7 Lymphocytes (%) (Auto) 9.3 Monocytes (%) (Auto) 9.8 Eosinophils (%) (Auto) 4.8 Basophils (%) (Auto) 0.4 Neutrophils # (Auto) 18.3 Lymphocytes # (Auto) 2.3 Monocytes # (Auto) 2.4 Eosinophils # (Auto) 1.2 Basophils # (Auto) 0.1 CBC Comment AUTO DIFF Differential Comment AUTO DIFF CONFIRMED Platelet Estimate HIGH Platelet Morphology Comment NORMAL Red Cell Morphology Comment NORMAL Sodium Level 138 Potassium Level 3.2 Chloride Level 95 Carbon Dioxide Level 33.4 Anion Gap 10 Blood Urea Nitrogen 6 Creatinine 0.23 Estimat Glomerular Filtration 417 Rate Random Glucose 127 Calcium Level 7.0 Protein Corrected Calcium 8.2 Total Protein 4.8 Blood Gas Puncture Site ART LINE Blood Gas Patient Temperature 98.6 Blood Gas HCO3 28 Blood Gas Base Excess 2.2 Blood Gas Oxygen Saturation 88 Arterial Blood pH 7.30 Arterial Blood Partial 59 Pressure CO2 Arterial Blood Partial 64 Pressure O2 Arterial Blood Oxygen Content 17.4 Arterial Blood 1.2 Carboxyhemoglobin Arterial Blood Methemoglobin 0.7 Blood Gas Hemoglobin 14.1 Oxygen Delivery Device VENTILATOR Blood Gas Ventilator Setting AC 14/500/PEEP5 Blood Gas Inspired Oxygen 100 Lactic Acid Level 1.7 Urine Color YELLOW Urine Turbidity HAZY Urine pH 6.0 Urine Specific [place] 1.017 Urine Protein 30 Urine Glucose (UA) NEG Urine Ketones 80 Urine Occult Blood LARGE Urine Nitrite NEG Urine Bilirubin NEG Urine Urobilinogen LESS THAN 2.0 Urine Leukocyte Esterase SMALL Urine RBC Urine WBC 17 Urine Hyaline Casts 9 Urine Mucus FEW Microscopic Urinalysis Comment CATH-CULTURE IND Test 09/11/16 03:15 White Blood Count 24.5 Red Blood Count 4.96 Hemoglobin 14.2 Hematocrit 44.5 Mean Corpuscular Volume 89.7 Mean Corpuscular Hemoglobin 28.7 Mean Corpuscular Hemoglobin 31.9 Concent Red Cell Distribution Width 14.5 Platelet Count 459 Mean Platelet Volume 7.8 Neutrophils (%) (Auto) 73.3 Lymphocytes (%) (Auto) 11.8 Monocytes (%) (Auto) 11.4 Eosinophils (%) (Auto) 2.9 Basophils (%) (Auto) 0.6 Neutrophils # (Auto) 17.9 Lymphocytes # (Auto) 2.9 Monocytes # (Auto) 2.8 Eosinophils # (Auto) 0.7 Basophils # (Auto) 0.1 CBC Comment AUTO DIFF Differential Comment AUTO DIFF CONFIRMED Toxic Vacuolation PRESENT Platelet Estimate HIGH Platelet Morphology Comment NORMAL Sodium Level 141 Potassium Level 3.3 Chloride Level 100 Carbon Dioxide Level 30.4 Anion Gap 11 Blood Urea Nitrogen 5 Creatinine 0.17 Estimat Glomerular Filtration 591 Rate Random Glucose 133 Calcium Level 6.5 Protein Corrected Calcium 7.8 Total Bilirubin 0.5 Aspartate Amino Transf 50 (AST/SGOT) Alanine Aminotransferase 87 (ALT/SGPT) Alkaline Phosphatase 38 Total Protein 4.5 Albumin 1.8 Date/Time Procedure Status Source Growth 09/11/16 10:55 Aerobic Blood Culture Received Blood Peripheral Pending 09/11/16 10:55 Anaerobic Blood Culture Received Blood Peripheral Pending 09/10/16 22:00 Urine Culture Received Urine Clean Catch Pending 09/10/16 22:00 Gram Stain - Final Resulted Sputum Endotracheal 09/10/16 22:00 Sputum Culture Resulted Sputum Endotracheal Pending 09/10/16 21:10 Aerobic Blood Culture - Preliminary Resulted Blood Peripheral NO GROWTH IN 1 DAY 09/10/16 21:10 Anaerobic Blood Culture - Preliminary Resulted Blood Peripheral NO GROWTH IN 1 DAY 09/09/16 02:45 Gastric Occult Blood - Final Complete Gastric GASTROCCULT POSITIVE 09/09/16 02:45 Cryptosporidium Exam Ordered Stool Stool Pending 09/09/16 02:45 Giardia Antigen (EDWIN) Ordered Stool Stool Pending 09/09/16 02:45 Ordered Stool Stool Pending Cardiovascular: Regular Lungs: Clear Abdomen: Other (dressing dry, no erythema. mild chronic skin changes on abdomen inferiorly, c/w clinically psoriasis or eczema.) Extremities: No edema, Perfused, SCD's on A/P Assessment and Plan POD 1 exp lap adhesiolysis for SBO. Postop required intubation. Critical care involved. Continue supportive care. Consider start TF at low rate via NG in next day or two if remains intubated. Manjeet Barry MD Sep 11, 2016 11:29
[2016-09-11] MEDS ORDERED: Vancomycin Consult Pharmacy 1 EA OTHER SCH (11:45)
[2016-09-11] MEDS ORDERED: CALCIUM CHLORIDE INJ 2 GM in SODIUM CHLORIDE 0.9% INJ 100 ML IV ONE (12:00)
[2016-09-11] MEDS: VANCOMYCIN INJ 1,750 MG in SODIUM CHLORID 0.9% 500 ML INJ 500 ML IV ONE ×2 (12:14→13:30)
[2016-09-11] MEDS: CEFEPIME INJ 2,000 MG in SODIUM CHLORIDE 0.9% INJ 100 ML IV SCH ×2 (13:00→20:14)
--- NOTE | 2016-09-11 15:52 | HHI.PR ---
Subjective Remarks 61 YOWM with Pancreatitis,COPD,Nicotine use had Exp ap on Vent Fi02 100% Requiring pressors Sedated Objective Vital Signs Vital Signs Date Time Temp Pulse Resp B/P Pulse Ox O2 Delivery O2 Flow Rate FiO2 09/11/16 12:00 120 09/11/16 12:00 98.2 120 18 112/51 92 09/11/16 11:26 90 100 09/11/16 10:15 100 09/11/16 08:13 89 100 09/11/16 08:00 117 09/11/16 08:00 98.3 117 18 101/54 90 Automatic Cuff 09/11/16 08:00 100 09/11/16 06:00 115 09/11/16 04:04 92 100 09/11/16 04:00 100 09/11/16 04:00 98.7 111 18 93 120/59 09/11/16 04:00 111 09/11/16 02:00 109 09/11/16 01:18 93 100 09/11/16 00:00 98.7 108 14 93 101/51 09/11/16 00:00 100 09/11/16 00:00 108 09/10/16 22:01 91 100 09/10/16 22:00 103 09/10/16 21:03 92 100 09/10/16 20:00 100 09/10/16 20:00 111 09/10/16 20:00 98.5 113 14 99 155/75 09/10/16 19:54 90 100 09/10/16 19:38 82 Ventilator 100 09/10/16 19:00 93 Mechanical Ventilator 100 09/10/16 16:00 103 09/10/16 16:00 98.0 103 23 144/67 99 I/O 09/10/16 09/10/16 09/10/16 09/11/16 09/11/16 09/11/16 07:00 15:00 23:00 07:00 15:00 23:00 Intake Total 810 ml 762 ml 2834 ml 5384 ml 2215 ml Output Total 400 ml 800 ml 540 ml 375 ml 225 ml Balance 410 ml -38 ml 2294 ml 5009 ml 1990 ml Intake Oral 30 ml 30 ml IV Total 780 ml 732 ml 2334 ml 5384 ml 1215 ml Albumin 500 ml 1000 ml Output Urine Total 400 ml 350 ml 350 ml 350 ml 200 ml Gastric Drainage Total 450 ml 100 ml 0 ml Drainage Total 90 ml 25 ml 25 ml # Bowel Movements 1 0 0 Result Diagram: 09/11/1631409/11/16 031 Objective Remarks GENERAL: MBMN WM , on Vent sedated SKIN: Warm and dry. HEAD: Normocephalic. EYES: No scleral icterus. No injection or drainage. NECK: Supple, trachea midline. No JVD or lymphadenopathy. CARDIOVASCULAR: Regular rate and rhythm without murmurs, gallops, or rubs. RESPIRATORY: Breath sounds equal bilaterally. No accessory muscle use. GASTROINTESTINAL: Abdomen soft, non-tender, MUSCULOSKELETAL: No cyanosis, or edema. BACK: Nontender without obvious deformity. No CVA tenderness. A/P Assessment and Plan Vent dependent RF Hypoxia Hypotension S/P Exp Lap COPD Nicotine use DM PLAN: Vent Support. Fi02 100% Levophed to support BP Broad spectrum Abx Aerosol nebjo ann Loaiza managing critical care. Velasquez Hill MD Sep 11, 2016 15:52
[2016-09-11 16:31] LABS: BICARBONATE 30.3 MEQ/L (21.0-32.0); POTASSIUM 3.4 MEQ/L (3.5-5.1)
[2016-09-11 17:00] LABS: CALCIUM-PROTEIN CORRECTED 8.9 MG/DL (8.5-10.1)
[2016-09-11] MEDS: HYDROCORTISONE SOD SUCCINATE 100 MG VIAL IV PUSH SCH (17:30)
[2016-09-11 17:33] LABS: CKMB 59.7 NG/ML (0.5-3.6)
[2016-09-11] MEDS: VASOPRESSIN INJ 40 UNITS in DEXTROSE 5% IN WATER 100ML INJ 98 ML IV SCH ×2 (17:40)
[2016-09-11] MEDS: MILRINONE INJ 20 MG in SODIUM CHLORIDE 0.9% INJ 80 ML IV SCH ×2 (17:40→22:24)
--- NOTE | 2016-09-11 18:29 | HHI.GIFU ---
Subjective Remarks Pt went to OR yesterday, exploratory lap. with LUCY. Currently intubated/ sedated on vent with FIO2 100%, multiple vasopressors. (Rocio Carcamo) Objective Vitals I&O Vital Signs Date Time Temp Pulse Resp B/P Pulse Ox O2 Delivery O2 Flow Rate FiO2 09/11/16 18:00 127 107/47 09/11/16 16:45 125 102/48 09/11/16 16:12 87 100 09/11/16 16:00 99.6 124 18 86/55 88 Arterial Line 09/11/16 16:00 124 09/11/16 12:00 120 09/11/16 12:00 98.2 120 18 112/51 92 09/11/16 11:26 90 100 09/11/16 10:15 100 09/11/16 08:13 89 100 09/11/16 08:00 117 09/11/16 08:00 98.3 117 18 101/54 90 Automatic Cuff 09/11/16 08:00 100 09/11/16 06:00 115 09/11/16 04:04 92 100 09/11/16 04:00 100 09/11/16 04:00 98.7 111 18 93 120/59 09/11/16 04:00 111 09/11/16 02:00 109 09/11/16 01:18 93 100 09/11/16 00:00 98.7 108 14 93 101/51 09/11/16 00:00 100 09/11/16 00:00 108 09/10/16 22:01 91 100 09/10/16 22:00 103 09/10/16 21:03 92 100 09/10/16 20:00 100 09/10/16 20:00 111 09/10/16 20:00 98.5 113 14 99 155/75 09/10/16 19:54 90 100 09/10/16 19:38 82 Ventilator 100 09/10/16 19:00 93 Mechanical Ventilator 100 I/O 09/10/16 09/10/16 09/10/16 09/11/16 09/11/16 09/11/16 07:00 15:00 23:00 07:00 15:00 23:00 Intake Total 810 ml 762 ml 2834 ml 5384 ml 2215 ml Output Total 400 ml 800 ml 540 ml 375 ml 225 ml Balance 410 ml -38 ml 2294 ml 5009 ml 1990 ml Intake Oral 30 ml 30 ml IV Total 780 ml 732 ml 2334 ml 5384 ml 1215 ml Albumin 500 ml 1000 ml Output Urine Total 400 ml 350 ml 350 ml 350 ml 200 ml Gastric Drainage Total 450 ml 100 ml 0 ml Drainage Total 90 ml 25 ml 25 ml # Bowel Movements 1 0 0 Laboratory Laboratory Tests Test 09/10/16 09/10/16 09/10/16 09/10/16 19:06 20:56 21:10 22:00 White Blood Count 24.1 Red Blood Count 5.23 Hemoglobin 15.4 Hematocrit 45.9 Mean Corpuscular Volume 87.6 Mean Corpuscular Hemoglobin 29.3 Mean Corpuscular Hemoglobin 33.5 Concent Red Cell Distribution Width 14.3 Platelet Count 440 Mean Platelet Volume 7.9 Neutrophils (%) (Auto) 75.7 Lymphocytes (%) (Auto) 9.3 Monocytes (%) (Auto) 9.8 Eosinophils (%) (Auto) 4.8 Basophils (%) (Auto) 0.4 Neutrophils # (Auto) 18.3 Lymphocytes # (Auto) 2.3 Monocytes # (Auto) 2.4 Eosinophils # (Auto) 1.2 Basophils # (Auto) 0.1 CBC Comment AUTO DIFF Differential Comment AUTO DIFF CONFIRMED Platelet Estimate HIGH Platelet Morphology Comment NORMAL Red Cell Morphology Comment NORMAL Sodium Level 138 Potassium Level 3.2 Chloride Level 95 Carbon Dioxide Level 33.4 Anion Gap 10 Blood Urea Nitrogen 6 Creatinine 0.23 Estimat Glomerular Filtration 417 Rate Random Glucose 127 Calcium Level 7.0 Protein Corrected Calcium 8.2 Total Protein 4.8 Blood Gas Puncture Site ART LINE Blood Gas Patient Temperature 98.6 Blood Gas HCO3 28 Blood Gas Base Excess 2.2 Blood Gas Oxygen Saturation 88 Arterial Blood pH 7.30 Arterial Blood Partial 59 Pressure CO2 Arterial Blood Partial 64 Pressure O2 Arterial Blood Oxygen Content 17.4 Arterial Blood 1.2 Carboxyhemoglobin Arterial Blood Methemoglobin 0.7 Blood Gas Hemoglobin 14.1 Oxygen Delivery Device VENTILATOR Blood Gas Ventilator Setting AC 14/500/PEEP5 Blood Gas Inspired Oxygen 100 Lactic Acid Level 1.7 Urine Color YELLOW Urine Turbidity HAZY Urine pH 6.0 Urine Specific [place] 1.017 Urine Protein 30 Urine Glucose (UA) NEG Urine Ketones 80 Urine Occult Blood LARGE Urine Nitrite NEG Urine Bilirubin NEG Urine Urobilinogen LESS THAN 2.0 Urine Leukocyte Esterase SMALL Urine RBC Urine WBC 17 Urine Hyaline Casts 9 Urine Mucus FEW Microscopic Urinalysis Comment CATH-CULTURE IND Test 09/11/16 09/11/16 09/11/16 03:15 13:14 15:41 White Blood Count 24.5 Red Blood Count 4.96 Hemoglobin 14.2 Hematocrit 44.5 Mean Corpuscular Volume 89.7 Mean Corpuscular Hemoglobin 28.7 Mean Corpuscular Hemoglobin 31.9 Concent Red Cell Distribution Width 14.5 Platelet Count 459 Mean Platelet Volume 7.8 Neutrophils (%) (Auto) 73.3 Lymphocytes (%) (Auto) 11.8 Monocytes (%) (Auto) 11.4 Eosinophils (%) (Auto) 2.9 Basophils (%) (Auto) 0.6 Neutrophils # (Auto) 17.9 Lymphocytes # (Auto) 2.9 Monocytes # (Auto) 2.8 Eosinophils # (Auto) 0.7 Basophils # (Auto) 0.1 CBC Comment AUTO DIFF Differential Comment AUTO DIFF CONFIRMED Toxic Vacuolation PRESENT Platelet Estimate HIGH Platelet Morphology Comment NORMAL Sodium Level 141 140 Potassium Level 3.3 3.4 Chloride Level 100 102 Carbon Dioxide Level 30.4 30.3 Anion Gap 11 8 Blood Urea Nitrogen 5 6 Creatinine 0.17 0.35 Estimat Glomerular Filtration 591 257 Rate Random Glucose 133 115 Calcium Level 6.5 7.4 Protein Corrected Calcium 7.8 8.9 Total Bilirubin 0.5 Aspartate Amino Transf 50 (AST/SGOT) Alanine Aminotransferase 87 (ALT/SGPT) Alkaline Phosphatase 38 B-Type Natriuretic Peptide 409 Total Protein 4.5 4.5 Albumin 1.8 Lactic Acid Level 1.3 Total Creatine Kinase 1110 Creatine Kinase MB 59.7 Creatine Kinase MB % 5.4 Troponin I 0.46 Date/Time Procedure Status Source Growth 09/11/16 10:55 Aerobic Blood Culture Received Blood Peripheral Pending 09/11/16 10:55 Anaerobic Blood Culture Received Blood Peripheral Pending 09/10/16 22:00 Urine Culture - Preliminary Resulted Urine Clean Catch RESULTS PENDING 09/10/16 22:00 Gram Stain - Final Resulted Sputum Endotracheal 09/10/16 22:00 Sputum Culture - Preliminary Resulted Sputum Endotracheal RESULTS PENDING 09/10/16 21:10 Aerobic Blood Culture - Preliminary Resulted Blood Peripheral NO GROWTH IN 1 DAY 09/10/16 21:10 Anaerobic Blood Culture - Preliminary Resulted Blood Peripheral NO GROWTH IN 1 DAY 09/09/16 02:45 Gastric Occult Blood - Final Complete Gastric GASTROCCULT POSITIVE 09/09/16 02:45 Cryptosporidium Exam Ordered Stool Stool Pending 09/09/16 02:45 Giardia Antigen (EDWIN) Ordered Stool Stool Pending 09/09/16 02:45 Ordered Stool Stool Pending Imaging Last Impressions Chest X-Ray 09/10/16 0000 Signed Impressions: Service Date/Time: Saturday, September 10, 2016 19:57 - CONCLUSION: 1. Interval intubation and placement of central venous line. 2. Bilateral effusions right greater than left with new hazy opacity in both lungs. Bret Peterson MD Abdomen X-Ray 09/09/16 0600 Signed Impressions: Service Date/Time: August 04:54 - CONCLUSION: No significant interval change. Persistent upper mid abdomen small bowel dilatation and wall thickening. Filiberto Hall MD Abdomen/Pelvis CT 09/08/16 0000 Signed Impressions: Service Date/Time: Thursday, September 08, 2016 23:45 - CONCLUSION: 1. Marked inflammatory changes of left upper quadrant with severe mesenteric edema and adjacent short segment circumferential wall thickening of mid small bowel and adjacent distal transverse colon. Possible 4 cm abscess adjacent to the mid small bowel wall. Evaluation of intraluminal versus extraluminal fluid in this region is limited as intraluminal contrast is not present in this loop. A delayed scan may be beneficial for clarification. Differential diagnosis includes inflammatory bowel disease and infection. Moderate amount of free fluid similar to prior study. No evidence of free air. 2. Chronic pancreatitis. Filiberto Hall MD ADDENDUM: Delayed images show contrast filling the thickened loops of left upper quadrant small bowel. No evidence of abscess. Findings were discussed with Dr. Henriquez. Filiberto Hall MD Physical Exam HEENT: Normocephalic; atraumatic; no jaundice. CHEST: OETT to vent. On 100% FIO2, O2 sat 84%. Diminished breath sounds. CARDIAC: ST, rate in the 120's. On multiple vasopressors. ABDOMEN: Firm, distended, midline incision line, drsg d/i, ROSHAN to left abdomen, minimal drainage. no bowel sounds. OGT to LIWS- minimal drainage. EXTREMITIES: No clubbing, cyanosis, or edema. SKIN: Skin cool and dry LIMNOLOGIST: Sedated on vent. (Carcamo,Rocio Clara VICE PRESIDENT OF MANUFACTURING) Assessment and Plan Plan ASSESSMENT: - Acute abdominal pain, LLQ, Abdominal pain that started on Tuesday. CT Abdomen and pelivs (09/02/16)----> Proximal small bowel ileus with significant intestinal and sarina-intestinal inflammation characteristic of acute enteritis. Ischemic bowel cannot be excluded, cholelithiasis, pancreatic calcification characteristic of chronic pancreatitis, significant atherosclerotic vascular disease especially involving the origin of the SMA, free fluid in the pelvis without evidence of loculated collections to suggest abscess formation. CTA (09/04/16)----> 1. Atherosclerotic change without a significant area of stenosis. 2. Inflammatory change in the mesentery in the left upper abdomen. Pancreatic calcification characteristic of chronic pancreatitis. Significant atherosclerotic vascular disease especially involving the origin of the SMA. Free fluid in the pelvis without evidence of loculated collections to suggest abscess formation. S/P EGD (09/06/16)-----> There was erythematous gastritis in the gastric antrum, LA Class esophagitis, retroflexed views revealed no abnormalities. Pathology pending. PPI. Rpt. EGD 6 weeks pending biopsy results. Incomplete colonoscopy (09/06/16)----> normal colon mucosa to splenic flexure, unable to advance beyond this area, retroflexed views revealed medium internal hemorrhoids. Rpt colonoscopy was recommended, but pt refused bowel prep. Stool studies negative for cryptosporidium, giardia, cdiff. Stool with few wbc. Pt had worsening distention with persistent nausea/vomiting with bilious/coffee ground emesis yesterday. NGT was placed. KUB (09/09/16)------> No significant interval change. Persistent upper mid abdomen small bowel dilatation and wall thickening. Abdomen/Pelvis CT (09/08/16)----> 1. Marked inflammatory changes of left upper quadrant with severe mesenteric edema and adjacent short segment circumferential wall thickening of mid small bowel and adjacent distal transverse colon. Possible 4 cm abscess adjacent to the mid small bowel wall. Evaluation of intraluminal versus extraluminal fluid in this region is limited as intraluminal contrast is not present in this loop. A delayed scan may be beneficial for clarification. Differential diagnosis includes inflammatory bowel disease and infection. Moderate amount of free fluid similar to prior study. No evidence of free air. 2. Chronic pancreatitis. ADDENDUM: Delayed images show contrast filling the thickened loops of left upper quadrant small bowel. No evidence of abscess. S/P Exploratory lap with LUCY (09/10/16). POD #1. Midline incision d/i, ROSHAN drain with minimal drainage. NGT to LIWS- minimal drainage. - Acute respiratory failure, COPD. Vent per pulmonary/CCM. On FIO2 100%, O2 sat 84%. - Hypotensive, on multiple vasopressors. Milrinone, Vasopressin, Levophed - Elevated troponin. Per CCM - Chronic pancreatitis with calcifications. Pt with history of chronic pancreatitis reportedly secondary to alcohol abuse. - Leukocytosis, persistent. WBC 24.5. Flagyl. Cefepime. - DM, HTN per attending PLAN: - NPO - NGT to LIWS - Protonix 40mg IV BID - Cont. Abx per - Refused bowel prep for repeat colonoscopy - S/P Exploratory lap with LUCY (09/10), POD #1 per GS - GI will sign off, please reconsult as needed - Patient seen and examined by Dr. Echeverria and myself and this note is written on his behalf. (Rocio Carcamo) Physician Comments Patient seen and examined Agree with above Continue with current supportive care Monitor labs GI will sign off (Marcus Echeverria MD) Rocio Carcamo Sep 11, 2016 18:29 Marcus Echeverria MD Sep 12, 2016 15:31
[2016-09-12] VITALS (17 sets, daily range): BP systolic 47–146; BP diastolic 34–68; PULSE 101–136; RESP 18–22; TEMP 97.7–98.6; O2SAT 47–89
[2016-09-12] MEDS ORDERED: ALBUMIN HUMAN 5% 12.5 GM/250 ML BOTTLE IV ONE ×2 (00:21→00:22)
[2016-09-12] MEDS ORDERED: ALBUMIN HUMAN 5% 25 GM/500 ML BOTTLE IV ONE (00:30)
[2016-09-12 02:48] LABS: BLOOD GAS BASE EXCESS -3.3 mmol/L (-2-2); BLOOD GAS CARBOXYHEMOGLOBIN 1.1 % (0-4); BLOOD GAS HCO3 22 mmol/L (22-26); BLOOD GAS O2 HGB SATURATION 73 % (90-100); BLOOD GAS OXYGEN CONTENT 12.1 Vol % (12.0-20.0); BLOOD GAS PCO2 49 mmHg (38-42); BLOOD GAS PO2 43 mmHg (61-120); BLOOD GAS TOTAL HGB 11.9 G/DL (12.0-16.0); CRITICAL VALUE YES; OXYGEN DEVICE VENTILATOR; TEMP CORR TO 98.6
[2016-09-12 02:49] LABS: DRAW SITE ART LINE; FIO2 100 %; STAT YES; VENT SETTINGS PRVC/AC
[2016-09-12 02:53] LABS: BICARBONATE 25.7 MEQ/L (21.0-32.0); POTASSIUM 3.8 MEQ/L (3.5-5.1)
[2016-09-12] MEDS ORDERED: SODIUM BICARBONATE 8.4% INJ 50 MEQ/50 ML SYR ONE (02:56)
[2016-09-12] MEDS ORDERED: SODIUM BICARBONATE 8.4% SOLN 50 MEQ/50 ML VIAL IV ONE (03:15)
[2016-09-12] MEDS ORDERED: SODIUM BICARBONATE 8.4% INJ 50 MEQ/50 ML SYR IV PUSH ONE (03:15)
[2016-09-12 03:24] LABS: CALCIUM-PROTEIN CORRECTED 8.4 MG/DL (8.5-10.1)
[2016-09-12] MEDS: RESP: ALBUTEROL 1.25 MG/3 ML NEB (SCH) NEB ×2 (04:00→09:54)
[2016-09-12] MEDS: LACTATED RINGER'S 1000 ML INJ 1,000 ML IV SCH ×2 (04:00→18:29)
[2016-09-12] MEDS ORDERED: EPINEPHrine HCL (1:1000) 1 MG/ML VIAL ONE (04:40)
[2016-09-12] MEDS: CEFEPIME INJ 2,000 MG in SODIUM CHLORIDE 0.9% INJ 100 ML IV SCH ×3 (05:00→20:56)
[2016-09-12] MEDS: EPINEPHrine (1:1000) INJ 2 MG in DEXTROSE 5% IN WATER INJ 248 ML IV SCH ×4 (05:01→08:54)
[2016-09-12] MEDS: MILRINONE INJ 20 MG in SODIUM CHLORIDE 0.9% INJ 80 ML IV SCH ×3 (05:08→18:27)
[2016-09-12] MEDS: metroNIDAZOLE 500 MG INJ 100 ML IV SCH ×3 (06:00→23:27)
[2016-09-12] MEDS: HYDROCORTISONE SOD SUCCINATE 100 MG VIAL IV PUSH SCH ×5 (06:00→23:27)
--- NOTE | 2016-09-12 07:40 | HHI.CCPN ---
Subjective Remarks/Hospital Course This is a 61-year-old male with a past medical history of chronic pancreatitis, hypertension, type 2 diabetes who presented with abdominal pain that started Tuesday. Patient stated that abdominal pain is located in the left lower quadrant and it was very mild. He said over the weekend has worsened in intensity and is constant. Patient stated that he has some nausea that resolves or improves with food. Deny any emesis. Patient also complains of a chronic productive cough that has been the same. He denies any diarrhea or constipation and see that his stools are normal. Patient also denies any fever or chills. She was admitted to hospitalist service and was evaluated subsequently by GI, Dr. Pinto as well as Dr. Henriquez from general surgery in view of abnormal CT abdomen pelvis with left upper quadrant inflammatory change in these and treat with edema and KUBs raising question of SBO. She underwent E lap with lysis of lesions under general anesthesia by Dr. Henriquez on 09/10, EBL 100 cc, received 2 L crystalloid intraoperatively, postop diagnosis small bowel adhesions. Patient was kept intubated postoperatively and transferred to [facility]. I saw the patient shortly after his arrival to the ICU. He had just been started on Versed and fentanyl and dropped his blood pressure to the 60 systolic range. He was ordered a fluid bolus 2 L crystalloids stat and started on Levophed for hypotension. Stat cultures were sent. Patient also is having problem with his O2 sats were dropping in the 80s. Stat chest x-ray was ordered. While waiting for chest x-ray, ET tube commercial helicopter pilot balloon appeared damaged hence cuff was not holding air so patient was sedated with Etomidate/ Fentanyl/ Rocuronium and ET tube was changed over a tube exchanger which was confirmed with a postprocedure chest x-ray with satisfactory placement of ET tube, right IJ central line in place, bilateral interstitial infiltrates with hyperinflated lung rothman, no pneumothorax. Patient was requiring 2 mics of Levophed for pressor support. 09/11: Ongoing hypotension and difficulty with oxygenation. Persistent hypotension responsive to volume. CVP 20. Suspect chronic pulmonary hypertension with heavily preload-dependent cardiac output. Will start milrinone for RV support and add vasopressin to levophed prn. Sustained tachycardia prohibits continued escalation of levophed. Underlying lung function is marginal at best. 09/12: Severe chronic lung disease without significant reserve appears to be the primary pathophysiology here. We were able to produce acceptable cardiac output yesterday with milrinone and vasopressin, minor amounts levophed for peripheral support. He has developed refractory hypoxemia overnight in the 60 - 70% range which is incompatible with survival. Cardiopulmonary dynamics have been maximized and are beginning to deteriorate. Will get another CXR and see if thoracentesis will help lung function. Objective Vital Signs Date Time Temp Pulse Resp B/P Pulse Ox O2 Delivery O2 Flow Rate FiO2 09/12/16 06:00 127 107/47 09/12/16 06:00 100 09/12/16 06:00 98.2 18 52 09/12/16 04:25 15.00 09/10/16 19:38 Ventilator Intake and Output 09/11/16 09/11/16 09/12/16 08:00 16:00 00:00 Intake Total 5384 ml 2215 ml 2113 ml Output Total 375 ml 225 ml 195 ml Balance 5009 ml 1990 ml 1918 ml Result Diagram: 09/11/16 0315 09/12/16 0210 Other Results Laboratory Tests Test 09/12/16 02:40 Blood Gas Puncture Site ART LINE Blood Gas Patient Temperature 98.6 Blood Gas HCO3 22 mmol/L (22-26) Blood Gas Base Excess -3.3 mmol/L (-2-2) Blood Gas Oxygen Saturation 73 % (90-100) Arterial Blood pH 7.28 (7.380-7.420) Arterial Blood Partial 49 mmHg (38-42) Pressure CO2 Arterial Blood Partial 43 mmHg Pressure O2 (61-120) Arterial Blood Oxygen Content 12.1 Vol % (12.0-20.0) Arterial Blood 1.1 % (0-4) Carboxyhemoglobin Arterial Blood Methemoglobin 1.0 % (0-2) Blood Gas Hemoglobin 11.9 G/DL (12.0-16.0) Oxygen Delivery Device VENTILATOR Blood Gas Ventilator Setting PRVC/AC Blood Gas Inspired Oxygen 100 % Objective Remarks HEENT/ Neuro: Sedated, orally intubated Neck: Right IJ central line in place. [facility] good air entry bilaterally, mild wheezing, no crackles , decreased BS bases R > L CVS: S1-S2 regular, no murmur. ++ JVD GI/abdomen: soft, nontender, bowel sounds quiet, dressing over incision site clean dry and intact, ROSHAN drain in place Extremities: tepid bilaterally, no edema, mild mottling. A/P Assessment and Plan 61-year-old male with: Abdominal pain Mesenteric edema Small bowel adhesions/SBO status post a lap with lysis of adhesions and removal of 2 L of ascites 09/10 Advanced COPD Acute respiratory failure on mechanical ventilation Diabetes mellitus Chronic pancreatitis History of gallstones Plan: Neuro: Sedation with propofol/fentanyl. Daily sedation vacation. Follow neuro status. Cardiovascular: Milrinone, vasopressin. Add digoxin for rate control. Levophed for pressor support as needed. Hold lisinopril. Pulmonary: Continue mechanical ventilation, vent bundle, bronchodilators. Being followed by pulmonary medicine Dr. Hill. GI/liver: Nothing by mouth for now. NG to suction. Being followed by Dr. Henriquez from general surgery status post Elap ID: On Levaquin/Flagyl/clindamycin IV. Worsening leukocytosis noted. Follow lactic acid levels in view of hypotension. Endocrine: SSI for glycemic control Renal/: Patient appears well hydrated Strict intake output, monitor and replete electrolytes, follow BUN/creatinine. Heme: Follow CBC Prophylaxis: PPI/SCDs. Subcutaneous heparin/Lovenox when okay with general surgery. Overall impression: Critically ill with persistent large A-aO2 gradient. Cardiac function clearly deteriorating. He has deteriorated overnight and risk of early is high. Will require ongoing ventilator and inotropic manipulation. Critical Care 45 mins Tristin Ramirez MD Sep 12, 2016 07:40
[2016-09-12] MEDS ORDERED: DIGOXIN 0.5 MG/2 ML VIAL IV PUSH ONE (08:00)
[2016-09-12] MEDS: CHLORHEXIDINE 0.12% (ORAL KIT) 15 ML CUP MT SCH ×2 (08:00→19:33)
--- NOTE | 2016-09-12 08:14 | RADRPT ---
EXAM DATE/TIME: 09/12/2016 07:39 [place] COMPARISON: CHEST SINGLE AP, September 10, 2016, 19:57. INDICATIONS : Respiratory distress. MEDICAL HISTORY : Hypertension. Chronic obstructive pulmonary disease. Gastroesophageal reflux disease. SURGICAL HISTORY : None. ENCOUNTER: Subsequent ACUITY: 1 week PAIN SCORE: Non-responsive. LOCATION: Bilateral chest FINDINGS: A single view of the chest demonstrates bibasilar airspace disease and bilateral pleural effusions. E ndotracheal tube, nasogastric tube and right jugular central line are stable in position. The cardio mediastinal contours are unremarkable. Osseous structures are intact. CONCLUSION: Bibasilar airspace disease and bilateral pleural effusions larger on the right. Zechariah Sims MD on September 12, 2016 at 8:11 Board Certified Radiologist. This report was verified electronically.
[2016-09-12] MEDS: SODIUM CHLORIDE 0.9% FLUSH 5 ML FLUSH FLUSH SCH ×2 (08:53→19:33)
[2016-09-12] MEDS: PANTOPRAZOLE SODIUM 40 MG VIAL IV PUSH SCH ×2 (08:53→20:56)
[2016-09-12] MEDS: LISINOPRIL 10 MG TAB PO SCH (09:00)
[2016-09-12] MEDS: LORATADINE 10 MG TAB PO SCH (09:00)
[2016-09-12] MEDS: guaiFENesin E.R. 600 MG TAB PO SCH ×2 (09:00→20:56)
[2016-09-12] MEDS: INSULIN ASPART SUPPLEMENTAL SCALE SQ SCH ×4 (09:03→21:00)
--- NOTE | 2016-09-12 11:16 | HHI.IDPN ---
Subjective Subjective Remarks Notes reviewed D/W RN Profound hypotension since last night - on levo, epi, vasopressin and milrinone Very hypotensive this morning, but has improved now, and epi being tapered Also very hypoxic overnight despite FiO2 at 100%, and now has improved, without any significant change in settings When sedation down, he is awake and follows some commands and move extremities WBC worsening CXR with tanya effusions and opacities BC negative UC negative Sputum normal kali Creatinine ok Antibiotics Cefepime Flagyl Vancomycin Past Medical History Type 2 diabetes Hypertension Chronic pancreatitis Past Surgical History 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 Cleared per Infection Control. Patient does not require isolation for hx of MRSA prior to 09/10/15. Objective . Vital Signs Date Time Temp Pulse Resp B/P Pulse Ox O2 Delivery O2 Flow Rate FiO2 09/12/16 09:54 83 100 09/12/16 08:00 100 09/12/16 08:00 111 47/34 09/12/16 08:00 97.8 111 22 53/38 47 Automatic Cuff 09/12/16 08:00 111 09/12/16 06:00 127 107/47 09/12/16 06:00 114 09/12/16 06:00 100 09/12/16 06:00 98.2 114 18 56/40 52 09/12/16 04:25 58 100 09/12/16 04:25 52 15.00 09/12/16 02:00 134 09/12/16 01:00 74 100 09/12/16 00:15 78 100 09/12/16 00:00 100 09/12/16 00:00 98.2 136 18 70/42 78 09/12/16 00:00 136 09/11/16 22:00 141 09/11/16 20:00 100 09/11/16 20:00 09/11/16 20:00 137 09/11/16 19:28 82 100 09/11/16 18:00 127 107/47 09/11/16 16:45 125 102/48 09/11/16 16:12 87 100 09/11/16 16:00 99.6 124 18 86/55 88 Arterial Line 09/11/16 16:00 124 09/11/16 12:00 120 09/11/16 12:00 98.2 120 18 112/51 92 09/11/16 11:26 90 100 09/11/16 09/11/16 09/12/16 15:00 23:00 07:00 Intake Total 2215 ml 2113 ml 5148 ml Output Total 225 ml 195 ml 135 ml Balance 1990 ml 1918 ml 5013 ml IV Total 1215 ml 2113 ml 5148 ml Albumin 1000 ml Output Urine Total 200 ml 175 ml 125 ml Gastric Drainage Total 0 ml 0 ml 0 ml Drainage Total 25 ml 20 ml 10 ml # Bowel Movements 0 . Laboratory Tests Test 09/10/16 09/11/16 19:06 03:15 White Blood Count 24.1 TH/MM3 24.5 TH/MM3 Red Blood Count 5.23 MIL/MM3 4.96 MIL/MM3 Hemoglobin 15.4 GM/DL 14.2 GM/DL Hematocrit 45.9 % 44.5 % Mean Corpuscular Volume 87.6 FL 89.7 FL Mean Corpuscular Hemoglobin 29.3 PG 28.7 PG Mean Corpuscular Hemoglobin 33.5 % 31.9 % Concent Red Cell Distribution Width 14.3 % 14.5 % Platelet Count 440 TH/MM3 459 TH/MM3 Mean Platelet Volume 7.9 FL 7.8 FL Neutrophils (%) (Auto) 75.7 % 73.3 % Lymphocytes (%) (Auto) 9.3 % 11.8 % Monocytes (%) (Auto) 9.8 % 11.4 % Eosinophils (%) (Auto) 4.8 % 2.9 % Basophils (%) (Auto) 0.4 % 0.6 % Neutrophils # (Auto) 18.3 TH/MM3 17.9 TH/MM3 Lymphocytes # (Auto) 2.3 TH/MM3 2.9 TH/MM3 Monocytes # (Auto) 2.4 TH/MM3 2.8 TH/MM3 Eosinophils # (Auto) 1.2 TH/MM3 0.7 TH/MM3 Basophils # (Auto) 0.1 TH/MM3 0.1 TH/MM3 CBC Comment AUTO DIFF AUTO DIFF Differential Comment AUTO DIFF AUTO DIFF CONFIRMED CONFIRMED Platelet Estimate HIGH HIGH Platelet Morphology Comment NORMAL NORMAL Red Cell Morphology Comment NORMAL Toxic Vacuolation PRESENT Laboratory Tests Test 09/10/16 09/10/16 09/11/16 09/11/16 19:06 21:10 03:15 13:14 Sodium Level 138 MEQ/L 141 MEQ/L Potassium Level 3.2 MEQ/L 3.3 MEQ/L Chloride Level 95 MEQ/L 100 MEQ/L Carbon Dioxide Level 33.4 MEQ/L 30.4 MEQ/L Anion Gap 10 MEQ/L 11 MEQ/L Blood Urea Nitrogen 6 MG/DL 5 MG/DL Creatinine 0.23 MG/DL 0.17 MG/DL Estimat Glomerular Filtration 417 ML/MIN 591 ML/MIN Rate Random Glucose 127 MG/DL 133 MG/DL Calcium Level 7.0 MG/DL 6.5 MG/DL Protein Corrected Calcium 8.2 MG/DL 7.8 MG/DL Total Protein 4.8 GM/DL 4.5 GM/DL Lactic Acid Level 1.7 mmol/L 1.3 mmol/L Total Bilirubin 0.5 MG/DL Aspartate Amino Transf 50 U/L (AST/SGOT) Alanine Aminotransferase 87 U/L (ALT/SGPT) Alkaline Phosphatase 38 U/L B-Type Natriuretic Peptide 409 PG/ML Albumin 1.8 GM/DL Test 09/11/16 09/12/16 15:41 02:10 Sodium Level 140 MEQ/L 138 MEQ/L Potassium Level 3.4 MEQ/L 3.8 MEQ/L Chloride Level 102 MEQ/L 101 MEQ/L Carbon Dioxide Level 30.3 MEQ/L 25.7 MEQ/L Anion Gap 8 MEQ/L 11 MEQ/L Blood Urea Nitrogen 6 MG/DL 7 MG/DL Creatinine 0.35 MG/DL 0.58 MG/DL Estimat Glomerular Filtration 257 ML/MIN 143 ML/MIN Rate Random Glucose 115 MG/DL 172 MG/DL Calcium Level 7.4 MG/DL 7.1 MG/DL Protein Corrected Calcium 8.9 MG/DL 8.4 MG/DL Total Creatine Kinase 1110 U/L Creatine Kinase MB 59.7 NG/ML Creatine Kinase MB % 5.4 % Troponin I 0.46 NG/ML 0.82 NG/ML Total Protein 4.5 GM/DL 4.8 GM/DL Lactic Acid Level 1.8 mmol/L Microbiology Date/Time Procedure Status Source Growth 09/10/16 21:10 Aerobic Blood Culture - Preliminary Resulted Blood Peripheral NO GROWTH IN 1 DAY 09/10/16 21:10 Anaerobic Blood Culture - Preliminary Resulted Blood Peripheral NO GROWTH IN 1 DAY 09/10/16 22:00 Gram Stain - Final Complete Sputum Endotracheal 09/10/16 22:00 Sputum Culture - Final Complete Sputum Endotracheal HEAVY GROWTH NORMAL RESPIRATORY KALI 09/10/16 22:00 Urine Culture - Final Complete Urine Clean Catch NO GROWTH IN 48 HOURS. 09/11/16 10:55 Aerobic Blood Culture Received Blood Peripheral Pending 09/11/16 10:55 Anaerobic Blood Culture Received Blood Peripheral Pending Imaging Chest X-Ray 09/12/16 0000 Signed Impressions: Service Date/Time: Monday, September 12, 2016 07:39 - CONCLUSION: Bibasilar airspace disease and bilateral pleural effusions larger on the right. Zechariah Sims MD Abdomen X-Ray 09/09/16 0600 Signed Impressions: Service Date/Time: August 04:54 - CONCLUSION: No significant interval change. Persistent upper mid abdomen small bowel dilatation and wall thickening. Filiberto Hall MD Abdomen/Pelvis CT 09/08/16 0000 Signed Impressions: Service Date/Time: Thursday, September 08, 2016 23:45 - CONCLUSION: 1. Marked inflammatory changes of left upper quadrant with severe mesenteric edema and adjacent short segment circumferential wall thickening of mid small bowel and adjacent distal transverse colon. Possible 4 cm abscess adjacent to the mid small bowel wall. Evaluation of intraluminal versus extraluminal fluid in this region is limited as intraluminal contrast is not present in this loop. A delayed scan may be beneficial for clarification. Differential diagnosis includes inflammatory bowel disease and infection. Moderate amount of free fluid similar to prior study. No evidence of free air. 2. Chronic pancreatitis. Filiberto Hall MD ADDENDUM: Delayed images show contrast filling the thickened loops of left upper quadrant small bowel. No evidence of abscess. Findings were discussed with Dr. Henriquez. Filiberto Hall MD Physical Exam GENERAL: sedated, on the vent, in no apparent distress. SKIN: Cool and dry. No generalized rash, no ecchymosis. Has mottling of hands and feet HEAD: Atraumatic. Normocephalic. No temporal or scalp tenderness. EYES: [place] conjunctivae. Has scleral edema. No scleral icterus. No injection or drainage. ENT: Nose without bleeding, or purulent drainage. Endotracheal tube is in the mouth. NECK: Trachea midline. No JVD or lymphadenopathy. Supple, nontender, no meningeal signs. CARDIOVASCULAR: Regular rate and rhythm without murmurs, gallops, or rubs. RESPIRATORY: Coarse breath sounds bilaterally, decreased at the bases. GASTROINTESTINAL: Abdomen soft, no reaction to palpation, mildly distended. Midline incision, dry, no erythema. No bowel sounds MUSCULOSKELETAL: Extremities without clubbing, or edema. No joint effusion, or edema noted. Cyanosis of hands and feet NEUROLOGICAL: Sedated PSYCH: Unable to assess LINE: No evidence of infection : Tavarez in place, urine looks clear Assessment & Plan Remarks IMPRESSION Sepsis with shock, S/P exp lap with LUCY Respiratory failure, requiring a lot of O2, FiO2 at 100% - fluid, PNA, ARDS S/P exp lap, LUCY, for SBO Allergy to PCN, has tolerated Cephalosporins in the past RECOMMENDATION Follow C/S Follow CBC Continue Cefepime Continue Flagyl Continue IV Vanco Add Diflucan Monitor progress Very critically ill D/W Tati Howard MD Sep 12, 2016 11:15
[2016-09-12] MEDS: FLUCONAZOLE 400 MG PREMIX BAG 200 ML IV SCH (11:31)
[2016-09-12] MEDS: VANCOMYCIN INJ 1,750 MG in SODIUM CHLORID 0.9% 500 ML INJ 500 ML IV SCH ×3 (13:00)
[2016-09-12 13:32] LABS: BICARBONATE 24.5 MEQ/L (21.0-32.0); POTASSIUM 3.4 MEQ/L (3.5-5.1)
--- NOTE | 2016-09-12 13:45 | HHI.PR ---
Subjective Subjective Notes DAILY PROGRESS NOTE FOR SURGICAL ATTENDING, DR. ALPHONSO LOFTON Discussed with nurse at bedside Patient critically ill on maximum ventilatory support Objective Vitals/I&O Vital Signs Date Time Temp Pulse Resp B/P Pulse Ox O2 Delivery O2 Flow Rate FiO2 09/12/16 12:56 79 100 09/12/16 12:00 122 128/58 09/12/16 12:00 97.7 22 09/12/16 04:25 15.00 09/10/16 19:38 Ventilator 09/11/16 09/11/16 09/12/16 15:00 23:00 07:00 Intake Total 2215 ml 2113 ml 5148 ml Output Total 225 ml 195 ml 135 ml Balance 1990 ml 1918 ml 5013 ml IV Total 1215 ml 2113 ml 5148 ml Albumin 1000 ml Output Urine Total 200 ml 175 ml 125 ml Gastric Drainage Total 0 ml 0 ml 0 ml Drainage Total 25 ml 20 ml 10 ml # Bowel Movements 0 Labs Laboratory Tests Test 09/11/16 09/12/16 09/12/16 09/12/16 15:41 02:10 02:40 03:03 Sodium Level 140 138 Potassium Level 3.4 3.8 Chloride Level 102 101 Carbon Dioxide Level 30.3 25.7 Anion Gap 8 11 Blood Urea Nitrogen 6 7 Creatinine 0.35 0.58 Estimat Glomerular Filtration 257 143 Rate Random Glucose 115 172 Calcium Level 7.4 7.1 Protein Corrected Calcium 8.9 8.4 Total Creatine Kinase 1110 Creatine Kinase MB 59.7 Creatine Kinase MB % 5.4 Troponin I 0.46 0.82 Total Protein 4.5 4.8 Lactic Acid Level 1.8 Blood Gas Puncture Site ART LINE Blood Gas Patient Temperature 98.6 Blood Gas HCO3 22 Blood Gas Base Excess -3.3 Blood Gas Oxygen Saturation 73 Arterial Blood pH 7.28 Arterial Blood Partial 49 Pressure CO2 Arterial Blood Partial 43 Pressure O2 Arterial Blood Oxygen Content 12.1 Arterial Blood 1.1 Carboxyhemoglobin Arterial Blood Methemoglobin 1.0 Blood Gas Hemoglobin 11.9 Oxygen Delivery Device VENTILATOR Blood Gas Ventilator Setting PRVC/AC Blood Gas Inspired Oxygen 100 Blood Bank Comment Test 09/12/16 12:53 Sodium Level 138 Potassium Level 3.4 Chloride Level 99 Carbon Dioxide Level 24.5 Anion Gap 15 Blood Urea Nitrogen 12 Creatinine 1.05 Estimat Glomerular Filtration 72 Rate Random Glucose 216 Lactic Acid Level 4.6 Calcium Level 6.9 Date/Time Procedure Status Source Growth 09/11/16 10:55 Aerobic Blood Culture - Preliminary Resulted Blood Peripheral NO GROWTH IN 1 DAY 09/11/16 10:55 Anaerobic Blood Culture - Preliminary Resulted Blood Peripheral NO GROWTH IN 1 DAY 09/10/16 22:00 Urine Culture - Final Complete Urine Clean Catch NO GROWTH IN 48 HOURS. 09/10/16 22:00 Gram Stain - Final Complete Sputum Endotracheal 09/10/16 22:00 Sputum Culture - Final Complete Sputum Endotracheal HEAVY GROWTH NORMAL RESPIRATORY DEVYN 09/09/16 02:45 Gastric Occult Blood - Final Complete Gastric GASTROCCULT POSITIVE 09/09/16 02:45 Cryptosporidium Exam Ordered Stool Stool Pending 09/09/16 02:45 Giardia Antigen (EDWIN) Ordered Stool Stool Pending 09/09/16 02:45 Ordered Stool Stool Pending Radiology Last Impressions Chest X-Ray 09/12/16 0000 Signed Impressions: Service Date/Time: Monday, September 12, 2016 07:39 - CONCLUSION: Bibasilar airspace disease and bilateral pleural effusions larger on the right. Zechariah Sims MD Abdomen X-Ray 09/09/16 0600 Signed Impressions: Service Date/Time: August 04:54 - CONCLUSION: No significant interval change. Persistent upper mid abdomen small bowel dilatation and wall thickening. Filiberto Hall MD Abdomen/Pelvis CT 09/08/16 0000 Signed Impressions: Service Date/Time: Thursday, September 08, 2016 23:45 - CONCLUSION: 1. Marked inflammatory changes of left upper quadrant with severe mesenteric edema and adjacent short segment circumferential wall thickening of mid small bowel and adjacent distal transverse colon. Possible 4 cm abscess adjacent to the mid small bowel wall. Evaluation of intraluminal versus extraluminal fluid in this region is limited as intraluminal contrast is not present in this loop. A delayed scan may be beneficial for clarification. Differential diagnosis includes inflammatory bowel disease and infection. Moderate amount of free fluid similar to prior study. No evidence of free air. 2. Chronic pancreatitis. Filiberto Hall MD ADDENDUM: Delayed images show contrast filling the thickened loops of left upper quadrant small bowel. No evidence of abscess. Findings were discussed with Dr. Henriquez. Filiberto Hall MD Narrative Exam Intubated On drips Ventilator set 100% 15 of PEEP Abdomen slightly tympanic and tight A/P Assessment and Plan POD 2 exp lap adhesiolysis for SBO. Postop required intubation. On multiple drips About 8 L ahead on fluid Continue supportive care. Patient on maximum support Critical care involved grave prognosis We'll check bladder pressures for intra-abdominal pressure for future reference Operative note not transcribed yet Attending Statement NOTE FOR SURGICAL ATTENDING, DR. ALPHONSO LOFTON I agree with above assessment and plan. I attest that I had a [id number] encounter with the patient on the same day, and personally performed and documented my assessment and findings in the medical record. The following services were provided during this hospital visit: Chart data review, vital sign assessments/reviewing monitor data Review of consultations notes if present. Medication orders/review and/or management Ordering and/or reviewing lab tests Ordering and/or interpreting/reviewing x-rays and/or diagnostic studies Care of the patient and discussion of the patient with the care team Documentation time To help prompt me to consider important information that might be impacting today's encounter and assessment, information from prior notes written by myself or my colleagues may have been "brought forward/copy and pasted" into today's note. Alphonso Lofton MD Sep 12, 2016 13:44
[2016-09-12 13:59] LABS: CALCIUM-PROTEIN CORRECTED 8.1 MG/DL (8.5-10.1)
[2016-09-12] MEDS ORDERED: AMIODARONE INJ 900 MG in D5W 500 ML (EXCEL BAG) 482 ML IV SCH (15:30)
[2016-09-12] MEDS ORDERED: AMIODARONE INJ 150 MG in DEXTROSE 5% IN WATER 100ML INJ 97 ML IV ONE ×2 (15:30)
[2016-09-12] MEDS ORDERED: MAGNESIUM SULFATE 1 GM PREMIX 100 ML IV ONE (15:30)
[2016-09-12] MEDS ORDERED: POTASSIUM CHLOR 40 MEQ PREMIX 100 ML IV ONE (15:30)
[2016-09-12] MEDS ORDERED: FUROSEMIDE 40 MG/4 ML VIAL ONE (15:40)
--- NOTE | 2016-09-12 15:56 | HHI.CCPN ---
Subjective Remarks/Hospital Course This is a 61-year-old male with a past medical history of chronic pancreatitis, hypertension, type 2 diabetes who presented with abdominal pain that started Tuesday. Patient stated that abdominal pain is located in the left lower quadrant and it was very mild. He said over the weekend has worsened in intensity and is constant. Patient stated that he has some nausea that resolves or improves with food. Deny any emesis. Patient also complains of a chronic productive cough that has been the same. He denies any diarrhea or constipation and see that his stools are normal. Patient also denies any fever or chills. She was admitted to hospitalist service and was evaluated subsequently by GI, Dr. Pinto as well as Dr. Henriquez from general surgery in view of abnormal CT abdomen pelvis with left upper quadrant inflammatory change in these and treat with edema and KUBs raising question of SBO. She underwent E lap with lysis of lesions under general anesthesia by Dr. Henriquez on 09/10, EBL 100 cc, received 2 L crystalloid intraoperatively, postop diagnosis small bowel adhesions. Patient was kept intubated postoperatively and transferred to [facility] [place]. I saw the patient shortly after his arrival to the ICU. He had just been started on Versed and fentanyl and dropped his blood pressure to the 60 systolic range. He was ordered a fluid bolus 2 L crystalloids stat and started on Levophed for hypotension. Stat cultures were sent. Patient also is having problem with his O2 sats were dropping in the 80s. Stat chest x-ray was ordered. While waiting for chest x-ray, ET tube aircraft pilot balloon appeared damaged hence cuff was not holding air so patient was sedated with Etomidate/ Fentanyl/ Rocuronium and ET tube was changed over a tube exchanger which was confirmed with a postprocedure chest x-ray with satisfactory placement of ET tube, right IJ central line in place, bilateral interstitial infiltrates with hyperinflated lung rothman, no pneumothorax. Patient was requiring 2 mics of Levophed for pressor support. 09/11: Ongoing hypotension and difficulty with oxygenation. Persistent hypotension responsive to volume. CVP 20. Suspect chronic pulmonary hypertension with heavily preload-dependent cardiac output. Will start milrinone for RV support and add vasopressin to levophed prn. Sustained tachycardia prohibits continued escalation of levophed. Underlying lung function is marginal at best. 09/12 0740 hrs: Severe chronic lung disease without significant reserve appears to be the primary pathophysiology here. We were able to produce acceptable cardiac output yesterday with milrinone and vasopressin, minor amounts levophed for peripheral support. He has developed refractory hypoxemia overnight in the 60 - 70% range which is incompatible with survival. Cardiopulmonary dynamics have been maximized and are beginning to deteriorate. Will get another CXR and see if thoracentesis will help lung function. 09/12 1600 hours: Continued difficulty with oxygenation, sats in range 78 - 81% .Cardioverted pharmacologically back to NSR and Flotrac output 7.8. Abdominal pressure 18. At this point he has adequate blood flow and oxygen delivery capacity despite low PO2. We have tried various vent modes and PC/AC appears to work best. SVV is 10; altogether these observations recommend diuresis to help oxygenation. He has horrible diffuse emphysema and a moderate right pleural effusion - may be forced to place a chest tube to allow better lung expansion. Objective Vital Signs Date Time Temp Pulse Resp B/P Pulse Ox O2 Delivery O2 Flow Rate FiO2 09/12/16 15:45 100 09/12/16 12:56 79 09/12/16 12:00 122 128/58 09/12/16 12:00 97.7 22 09/12/16 04:25 15.00 09/10/16 19:38 Ventilator Intake and Output 09/11/16 09/11/16 09/12/16 08:00 16:00 00:00 Intake Total 5384 ml 2215 ml 2113 ml Output Total 375 ml 225 ml 195 ml Balance 5009 ml 1990 ml 1918 ml Result Diagram: 09/11/16 0315 09/12/16 1253 Other Results Microbiology Date/Time Procedure Status Source Growth 09/10/16 22:00 Gram Stain - Final Complete Sputum Endotracheal 09/10/16 22:00 Sputum Culture - Final Complete Sputum Endotracheal HEAVY GROWTH NORMAL RESPIRATORY DEVYN 09/10/16 22:00 Urine Culture - Final Complete Urine Clean Catch NO GROWTH IN 48 HOURS. Laboratory Tests Test 09/12/16 02:40 Blood Gas Puncture Site ART LINE Blood Gas Patient Temperature 98.6 Blood Gas HCO3 22 mmol/L (22-26) Blood Gas Base Excess -3.3 mmol/L (-2-2) Blood Gas Oxygen Saturation 73 % (90-100) Arterial Blood pH 7.28 (7.380-7.420) Arterial Blood Partial 49 mmHg (38-42) Pressure CO2 Arterial Blood Partial 43 mmHg Pressure O2 (61-120) Arterial Blood Oxygen Content 12.1 Vol % (12.0-20.0) Arterial Blood 1.1 % (0-4) Carboxyhemoglobin Arterial Blood Methemoglobin 1.0 % (0-2) Blood Gas Hemoglobin 11.9 G/DL (12.0-16.0) Oxygen Delivery Device VENTILATOR Blood Gas Ventilator Setting PRVC/AC Blood Gas Inspired Oxygen 100 % Objective Remarks HEENT/ Neuro: Follows commands this afternoon. Moves 4 limbs. Neck: Right IJ central line in place. Orally intubated. Chest/Pulm: On mech vent, good air entry bilaterally, mild wheezing, no crackles , decreased BS bases R > L CVS: S1-S2 regular, no murmur. + JVD GI/abdomen: soft, nontender, bowel sounds quiet, distended, IAP 18. ROSHAN drain in place Extremities: Warm now bilaterally, no edema, less mottling. A/P Assessment and Plan 61-year-old male with: Abdominal pain Mesenteric edema Small bowel adhesions/SBO status post a lap with lysis of adhesions and removal of 2 L of ascites 09/10 Advanced COPD Acute respiratory failure on mechanical ventilation Diabetes mellitus Chronic pancreatitis History of gallstones Plan: Neuro: Sedation with propofol/fentanyl. Daily sedation vacation. Follow neuro status. Cardiovascular: Milrinone, vasopressin. Add digoxin for rate control. Levophed for pressor support as needed. Hold lisinopril. Pulmonary: Continue mechanical ventilation, vent bundle, bronchodilators. PC/AC mode. Being followed by pulmonary medicine Dr. Hill. GI/liver: Nothing by mouth for now. NG to suction. ID: On Levaquin/Flagyl/clindamycin IV. Worsening leukocytosis noted. Follow lactic acid levels in view of hypotension. Endocrine: SSI for glycemic control Renal/: Patient appears well hydrated Strict intake output, monitor and replete electrolytes, follow BUN/creatinine. Start diuresis. Heme: Follow CBC Prophylaxis: PPI/SCDs. Subcutaneous heparin/Lovenox when okay with general surgery. Overall impression: Critically ill with persistent large A-aO2 gradient. He has deteriorated overnight and risk of early remains high. Will require ongoing ventilator and inotropic manipulation. Converted back to sinus rhythm. Critical Care 50 mins Tristin Ramirez MD 19, 2017 15:56 Tristin Ramirez MD Sep 12, 2016 15:56
[2016-09-12] MEDS: AMIODARONE INJ 450 MG in D5W (EXCEL BAG) 241 ML IV SCH (16:20)
[2016-09-12 16:37] LABS: BLOOD GAS BASE EXCESS 1.6 mmol/L (-2-2); BLOOD GAS CARBOXYHEMOGLOBIN 1.1 % (0-4); BLOOD GAS HCO3 25 mmol/L (22-26); BLOOD GAS METHEMOGLOBIN 0.9 % (0-2); BLOOD GAS O2 HGB SATURATION 73 % (90-100); BLOOD GAS OXYGEN CONTENT 11.8 Vol % (12.0-20.0); BLOOD GAS PCO2 34 mmHg (38-42); BLOOD GAS PO2 37 mmHg (61-120); BLOOD GAS TOTAL HGB 11.6 G/DL (12.0-16.0); TEMP CORR TO 98.6
[2016-09-12 16:38] LABS: CRITICAL VALUE YES; OXYGEN DEVICE VENTILATOR; VENT SETTINGS PC/AC
[2016-09-12 16:39] LABS: DRAW SITE ART LINE; FIO2 100 %; NUMBER OF ARTERIAL PUNCTURES 0; STAT NO; ULNAR PULSE PRESENT
[2016-09-12] MEDS ORDERED: LIDOCAINE HCL 1% 50 ML VIAL ONE (16:45)
--- NOTE | 2016-09-12 16:55 | HHI.PR ---
Subjective Remarks 61 YOWM with Pancreatitis,COPD,Nicotine use had Exp ap on Vent Fi02 100% Requiring pressors Sedated On Levophed and vasopressin Not able to maintain saturation even on 100 % Fi02 Objective Vital Signs Vital Signs Date Time Temp Pulse Resp B/P Pulse Ox O2 Delivery O2 Flow Rate FiO2 09/12/16 16:03 77 100 09/12/16 16:00 110 09/12/16 16:00 98.5 110 22 122/56 75 09/12/16 15:45 100 09/12/16 12:56 79 100 09/12/16 12:00 122 128/58 09/12/16 12:00 97.7 122 22 128/58 80 09/12/16 12:00 122 09/12/16 09:54 83 100 09/12/16 08:00 100 09/12/16 08:00 111 47/34 09/12/16 08:00 97.8 111 22 53/38 47 Automatic Cuff 09/12/16 08:00 111 09/12/16 06:00 127 107/47 09/12/16 06:00 114 09/12/16 06:00 100 09/12/16 06:00 98.2 114 18 56/40 52 09/12/16 04:25 58 100 09/12/16 04:25 52 15.00 09/12/16 02:00 134 09/12/16 01:00 74 100 09/12/16 00:15 78 100 09/12/16 00:00 100 09/12/16 00:00 98.2 136 18 70/42 78 09/12/16 00:00 136 09/11/16 22:00 141 09/11/16 20:00 100 09/11/16 20:00 09/11/16 20:00 137 09/11/16 19:28 82 100 09/11/16 18:00 127 107/47 I/O 09/11/16 09/11/16 09/11/16 09/12/16 09/12/16 09/12/16 07:00 15:00 23:00 07:00 15:00 23:00 Intake Total 5384 ml 2215 ml 2113 ml 5148 ml 2368 ml Output Total 375 ml 225 ml 195 ml 135 ml 250 ml Balance 5009 ml 1990 ml 1918 ml 5013 ml 2118 ml IV Total 5384 ml 1215 ml 2113 ml 5148 ml 2368 ml Albumin 1000 ml Output Urine Total 350 ml 200 ml 175 ml 125 ml 250 ml Gastric Drainage Total 0 ml 0 ml 0 ml 0 ml Drainage Total 25 ml 25 ml 20 ml 10 ml 0 ml # Bowel Movements 0 0 Result Diagram: 09/11/16 0315 09/12/16 1253 Objective Remarks GENERAL: MBMN WM , on Vent sedated SKIN: Warm and dry. HEAD: Normocephalic. EYES: No scleral icterus. No injection or drainage. NECK: Supple, trachea midline. No JVD or lymphadenopathy. CARDIOVASCULAR: Regular rate and rhythm without murmurs, gallops, or rubs. RESPIRATORY: Breath sounds equal bilaterally. No accessory muscle use. GASTROINTESTINAL: Abdomen soft, non-tender, MUSCULOSKELETAL: No cyanosis, or edema. BACK: Nontender without obvious deformity. No CVA tenderness. A/P Assessment and Plan Vent dependent RF Profound hypoxia Hypoxia Hypotension S/P Exp Lap COPD Nicotine use DM PLAN: Vent Support. Fi02 100% Levophed to support BP Broad spectrum Abx Aerosol nebs managing critical care. cont vasopressin Velasquez Hill MD Sep 12, 2016 16:55
[2016-09-12] MEDS: VASOPRESSIN INJ 40 UNITS in DEXTROSE 5% IN WATER 100ML INJ 98 ML IV SCH ×2 (17:00)
--- NOTE | 2016-09-12 17:53 | PD.PROCEDR ---
Procedure Note Procedure DX: Bilateral pleural effusions and hypoxemic respiratory failure (J96.01) OP: 1. Insertion right thoracostomy tube. 2. 2. Insertion left thoracostomy tube Indications: Refractory hypoxemia. Procedure: Right chest wall prepped and draped. Local tissue and top of 5th rib infiltrated with 1% lidocaine. 2 cm skin incision made and blunt dissection carried down to tghe 5th rib, anterior axillary line. Pleural space entered while the ventilator was briefly disconnected and chest tube 28 Fr delivered with a Alisa clamp inti the thorax. Serous fluid 1,400 ml immediately drained. Dressing applied after connection to water seal/suction system. Left chest similarly prepared and anesthetized. Clamp delivery of a 28 Fr tube accomplished while vent briefly disconnected. Serous fluid 650 ml drained. Connected to suction system and dressing applied. Tristin Ramirez MD Sep 12, 2016 17:53
[2016-09-12] MEDS: NOREPINEPHRINE IV SCH ×2 (18:28)
[2016-09-12] MEDS: DEXTROSE 5% IV SCH ×2 (18:28)
[2016-09-12] MEDS: WATER IV SCH ×2 (18:28)
[2016-09-12] MEDS ORDERED: FUROSEMIDE 40 MG/4 ML VIAL IV PUSH ONE (18:45)
[2016-09-12] MEDS: FLUTICASONE PROPIONATE 50 MCG/ACT 16 GM NASAL SPRAY NASAL SCH (21:30)
--- NOTE | 2016-09-12 22:13 | MP ---
cc: CHRIS TOMLINSON M.D. DATE OF SURGERY September 10, 2016 PROCEDURE 1. Exploratory laparotomy. 2. Lysis of adhesions. PREOPERATIVE DIAGNOSIS Inflammatory mass left abdomen. POSTOPERATIVE DIAGNOSIS Inflammatory mass left abdomen secondary to previous pancreatitis with partial bowel obstruction. ANESTHESIA General endotracheal. SURGEON Martinez ESTIMATED BLOOD LOSS 100 ml. FLUIDS 2000 ml crystalloid. COMPLICATIONS None. DRAINS ROSHAN x1. SPECIMEN None. PROCEDURE IN DETAIL The patient was taken to the operating room and placed on the operating table in the supine position. After an adequate level of general endotracheal anesthesia was achieved, the abdomen was prepped and draped in the usual fashion. Time-out was taken confirming correct patient, site and procedure to be performed. The skin was incised in the midline and carried down through the fascia sharply. The peritoneal cavity was entered uneventfully. Clear fluid was encountered and this was aspirated utilizing a Rangel tip sucker. Approximately 1.4 liters of ascitic fluid was removed. When this had been completed, the abdomen was explored and the patient was found to have inflamed omentum that was plastered to the small bowel in the left upper quadrant as well as to the lateral sidewall of the abdomen and anteriorly. This was taken down with gentle blunt dissection. Loops of bowel were freed up and these were seen to be without evidence of neoplastic process or significant adhesions requiring excision. At this point all of the fluid was aspirated and the small bowel completely freed up. This was run from ligament of Treitz to the ileocecal valve and no other pathology was noted. When this was completed, Lety powder was placed over the left side where the omentum had been taken down off of the anterior abdominal wall to make this completely hemostatic. A Clint-Hines drain was brought in via separate stab incision and fixed to the skin with 3-0 nylon suture. After irrigating, the abdomen was closed with #1 PDS suture in a running fashion. The skin was closed with joseluis. 4x4s were placed over the abdominal wound and around the drain. The patient remained intubated and sedated was taken back to intensive care in stable condition. He tolerated the procedure well. Sponge, needle and instrument counts were reported be correct. MD CAROLINA Lee/CECIL /10:31 PM /9:59 PM
[2016-09-13] VITALS (18 sets, daily range): BP systolic 106–155; BP diastolic 57–69; PULSE 99–105; RESP 18–25; TEMP 97.4–98.5; O2SAT 89–95
[2016-09-13] MEDS: VANCOMYCIN INJ 1,750 MG in SODIUM CHLORID 0.9% 500 ML INJ 500 ML IV SCH (00:11)
[2016-09-13] MEDS: AMIODARONE INJ 450 MG in D5W (EXCEL BAG) 241 ML IV SCH (01:11)
[2016-09-13] MEDS: MILRINONE INJ 20 MG in SODIUM CHLORIDE 0.9% INJ 80 ML IV SCH ×4 (01:46→22:12)
[2016-09-13] MEDS ORDERED: EPINEPHrine HCL (1:10,000) 1 MG/10 ML SYRINGE IV ONE (05:00)
[2016-09-13 05:21] LABS: BASOPHIL % 0.1 % (0.0-2.0); EOSINOPHIL % 0.1 % (0.0-4.0); HEMATOCRIT 37.6 % (39.0-51.0); LYMPH % 5.1 % (9.0-44.0); LYMPHOCYTE # 1.3 TH/MM3 (1.0-4.8); MEAN CELL VOLUME 88.2 FL (80.0-100.0); MEAN CORPUSCULAR HEMOGLOBIN 28.6 PG (27.0-34.0); MEAN CORPUSCULAR HGB CONC 32.4 % (32.0-36.0); MONO % 9.6 % (0.0-8.0); NEUT % 85.1 % (16.0-70.0); PLATELET COUNT 364 TH/MM3 (150-450); RED BLOOD COUNT 4.27 MIL/MM3 (4.50-5.90); RED CELL DISTRIBUTION WIDTH 14.4 % (11.6-17.2); WHITE BLOOD COUNT 25.9 TH/MM3 (4.0-11.0)
[2016-09-13 05:44] LABS: HEMO FLAGS AUTO DIFF
[2016-09-13 05:53] LABS: MAGNESIUM 1.7 MG/DL (1.5-2.5); POTASSIUM 3.6 MEQ/L (3.5-5.1)
[2016-09-13 06:21] LABS: CALCIUM-PROTEIN CORRECTED 8.2 MG/DL (8.5-10.1)
[2016-09-13] MEDS: HYDROCORTISONE SOD SUCCINATE 100 MG VIAL IV PUSH SCH ×4 (06:21→23:31)
[2016-09-13] MEDS: CEFEPIME INJ 2,000 MG in SODIUM CHLORIDE 0.9% INJ 100 ML IV SCH ×3 (06:22→22:11)
[2016-09-13] MEDS: INSULIN ASPART SUPPLEMENTAL SCALE SQ SCH ×4 (07:00→23:49)
[2016-09-13 07:35] LABS: PLATELET ESTIMATE SMEAR NORMAL (NORMAL); PLATELET MORPHOLOGY NORMAL (NORMAL); SCAN/DIFF AUTO DIFF CONFIRMED
[2016-09-13] MEDS: metroNIDAZOLE 500 MG INJ 100 ML IV SCH ×3 (07:53→23:31)
[2016-09-13] MEDS: CHLORHEXIDINE 0.12% (ORAL KIT) 15 ML CUP MT SCH ×2 (08:00→20:29)
[2016-09-13] MEDS ORDERED: FUROSEMIDE 40 MG/4 ML VIAL IV PUSH ONE (08:30)
[2016-09-13] MEDS: guaiFENesin E.R. 600 MG TAB PO SCH ×2 (08:32→22:11)
[2016-09-13] MEDS: LORATADINE 10 MG TAB PO SCH (08:32)
[2016-09-13] MEDS: LISINOPRIL 10 MG TAB PO SCH (08:32)
[2016-09-13] MEDS: FLUTICASONE PROPIONATE 50 MCG/ACT 16 GM NASAL SPRAY NASAL SCH ×2 (08:54→22:11)
[2016-09-13] MEDS: SODIUM CHLORIDE 0.9% FLUSH 5 ML FLUSH FLUSH SCH ×2 (08:56→20:29)
[2016-09-13] MEDS: PANTOPRAZOLE SODIUM 40 MG VIAL IV PUSH SCH ×2 (08:57→22:11)
--- NOTE | 2016-09-13 10:07 | HHI.PR ---
Subjective Subjective Notes Critically ill On Vasopressin, Amiodarone, Levophed Assist control vent at 100%; sats in low 90's Responds to commands Objective Vitals/I&O Vital Signs Date Time Temp Pulse Resp B/P Pulse Ox O2 Delivery O2 Flow Rate FiO2 09/13/16 08:00 100 09/13/16 08:00 101 09/13/16 08:00 98.2 18 115/60 91 09/12/16 04:25 15.00 09/10/16 19:38 Ventilator Labs Laboratory Tests Test 09/12/16 09/12/16 09/13/16 09/13/16 12:53 16:25 04:36 04:56 Sodium Level 138 138 Potassium Level 3.4 3.6 Chloride Level 99 100 Carbon Dioxide Level 24.5 27.0 Anion Gap 15 11 Blood Urea Nitrogen 12 16 Creatinine 1.05 0.83 Estimat Glomerular Filtration 72 95 Rate Random Glucose 216 190 Lactic Acid Level 4.6 1.7 Calcium Level 6.9 7.1 Protein Corrected Calcium 8.1 8.2 Total Protein 4.8 5.0 Blood Gas Puncture Site ART LINE Blood Gas Patient Temperature 98.6 Blood Gas HCO3 25 Blood Gas Base Excess 1.6 Blood Gas Oxygen Saturation 73 Arterial Blood pH 7.48 Arterial Blood Partial 34 Pressure CO2 Arterial Blood Partial 37 Pressure O2 Arterial Blood Oxygen Content 11.8 Arterial Blood 1.1 Carboxyhemoglobin Arterial Blood Methemoglobin 0.9 Blood Gas Hemoglobin 11.6 Oxygen Delivery Device VENTILATOR Blood Gas Ventilator Setting PC/AC Blood Gas Inspired Oxygen 100 White Blood Count 25.9 Red Blood Count 4.27 Hemoglobin 12.2 Hematocrit 37.6 Mean Corpuscular Volume 88.2 Mean Corpuscular Hemoglobin 28.6 Mean Corpuscular Hemoglobin 32.4 Concent Red Cell Distribution Width 14.4 Platelet Count 364 Mean Platelet Volume 8.1 Neutrophils (%) (Auto) 85.1 Lymphocytes (%) (Auto) 5.1 Monocytes (%) (Auto) 9.6 Eosinophils (%) (Auto) 0.1 Basophils (%) (Auto) 0.1 Neutrophils # (Auto) 22.0 Lymphocytes # (Auto) 1.3 Monocytes # (Auto) 2.5 Eosinophils # (Auto) 0.0 Basophils # (Auto) 0.0 CBC Comment AUTO DIFF Differential Comment AUTO DIFF CONFIRMED Platelet Estimate NORMAL Platelet Morphology Comment NORMAL Phosphorus Level 1.9 Magnesium Level 1.7 Date/Time Procedure Status Source Growth 09/11/16 10:55 Aerobic Blood Culture - Preliminary Resulted Blood Peripheral NO GROWTH IN 1 DAY 09/11/16 10:55 Anaerobic Blood Culture - Preliminary Resulted Blood Peripheral NO GROWTH IN 1 DAY 09/10/16 22:00 Urine Culture - Final Complete Urine Clean Catch NO GROWTH IN 48 HOURS. 09/10/16 22:00 Gram Stain - Final Complete Sputum Endotracheal 09/10/16 22:00 Sputum Culture - Final Complete Sputum Endotracheal HEAVY GROWTH NORMAL RESPIRATORY DEVYN 09/09/16 02:45 Gastric Occult Blood - Final Complete Gastric GASTROCCULT POSITIVE 09/09/16 02:45 Cancelled Stool Stool 09/09/16 02:45 Cancelled Stool Stool Radiology Last Impressions Chest X-Ray 09/12/16 0000 Signed Impressions: Service Date/Time: Monday, September 12, 2016 07:39 - CONCLUSION: Bibasilar airspace disease and bilateral pleural effusions larger on the right. Zechariah Sims MD Abdomen X-Ray 09/09/16 0600 Signed Impressions: Service Date/Time: August 04:54 - CONCLUSION: No significant interval change. Persistent upper mid abdomen small bowel dilatation and wall thickening. Filiberto Hall MD Abdomen/Pelvis CT 09/08/16 0000 Signed Impressions: Service Date/Time: Thursday, September 08, 2016 23:45 - CONCLUSION: 1. Marked inflammatory changes of left upper quadrant with severe mesenteric edema and adjacent short segment circumferential wall thickening of mid small bowel and adjacent distal transverse colon. Possible 4 cm abscess adjacent to the mid small bowel wall. Evaluation of intraluminal versus extraluminal fluid in this region is limited as intraluminal contrast is not present in this loop. A delayed scan may be beneficial for clarification. Differential diagnosis includes inflammatory bowel disease and infection. Moderate amount of free fluid similar to prior study. No evidence of free air. 2. Chronic pancreatitis. Filiberto Hall MD ADDENDUM: Delayed images show contrast filling the thickened loops of left upper quadrant small bowel. No evidence of abscess. Findings were discussed with Dr. Henriquez. Filiberto Hall MD Lungs: Clear Abdomen: Other (Distended and quiet) Narrative Exam ROSHAN output serosanguinous Incision clean and dry; joseluis intact without erythema. A/P Problem List: (1) Sepsis (2) COPD (chronic obstructive pulmonary disease) (3) Hypokalemia (4) Hyponatremia (5) Abdominal pain (6) Enteritis (7) Ileus (8) Leukocytosis (9) Diabetes (10) Systemic inflammatory response syndrome (SIRS) Assessment and Plan POD #3 Exploratory Laparotomy, lysis of adhesions Critically ill on vent with multiple drips; renal function remarkably stable Bilateral chest tubes for pleural effusions; too unstable to have thoracentesis Plan: Continue full support Check compartment pressure today Wean drips when possible Problem Qualifiers (1) Leukocytosis: Qualified Code: D72.829 - Leukocytosis, unspecified type Bret Henriquez MD Sep 13, 2016 10:07
--- NOTE | 2016-09-13 10:52 | RADRPT ---
EXAM DATE/TIME: 09/13/2016 09:56 [facility] COMPARISON: CHEST SINGLE AP, September 12, 2016, 7:39. INDICATIONS : Congestion. MEDICAL HISTORY : Hypertension. Chronic obstructive pulmonary disease. Gastroesophageal SURGICAL HISTORY : Bilateral chest tubes. ENCOUNTER: Subsequent ACUITY: 1 week PAIN SCORE: Non-responsive. LOCATION: Bilateral chest FINDINGS: A single view of the chest demonstrates interval placement of bilateral thoracostomy tubes with impro vement in the previously seen bilateral pleural effusions. Interstitial markings remain prominent tasha racteristic of some degree of vascular congestion or volume overload. Life support tubes including a right IJ central venous catheter, endotracheal tube and nasogastric tube are all stable. Heart size i s normal. Osseous structures are intact. CONCLUSION: 1. Interval placement of bilateral thoracostomy tubes with marked improvement in the previously seen bilateral pleural effusions. 2. Persistent interstitial prominence characteristic of some degree of vascular congestion or volume overload. 3. Stable position of life support tubes. Gabe Correia MD on September 13, 2016 at 10:49 Board Certified Radiologist. This report was verified electronically.
[2016-09-13] MEDS: FLUCONAZOLE 400 MG PREMIX BAG 200 ML IV SCH (11:26)
[2016-09-13] MEDS ORDERED: MAGNESIUM SULFATE INJ 2 GM in SODIUM CHLORIDE 0.9% INJ 96 ML IV PRN (11:45)
[2016-09-13] MEDS ORDERED: MAGNESIUM OXIDE 400 MG TAB PO PRN (11:45)
[2016-09-13] MEDS ORDERED: PHARMACY ORDERED LAB XX ONE (11:45)
[2016-09-13] MEDS ORDERED: POTASSIUM PHOSPHATE MONOBASIC 500 MG TAB PO PRN (11:45)
[2016-09-13] MEDS ORDERED: POTASSIUM PHOSPHATE MONOBASIC 500 MG TAB PO/TUBE PRN (11:45)
[2016-09-13] MEDS ORDERED: MAGNESIUM SULFATE INJ 4 GM in SODIUM CHLORIDE 0.9% INJ 92 ML IV PRN (11:45)
[2016-09-13] MEDS ORDERED: POTASSIUM CHLOR 20 MEQ PREMIX 100 ML IV PRN ×2 (11:45)
--- NOTE | 2016-09-13 13:08 | HHI.IDPN ---
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 Cleared per Infection Control. Patient does not require isolation for hx of MRSA prior to 09/10/15. Objective . Vital Signs Date Time Temp Pulse Resp B/P Pulse Ox O2 Delivery O2 Flow Rate FiO2 09/13/16 12:00 98.5 103 18 113/57 95 09/13/16 12:00 103 09/13/16 12:00 100 09/13/16 11:10 94 100 09/13/16 10:00 101 09/13/16 08:00 100 09/13/16 08:00 101 09/13/16 08:00 98.2 103 18 115/60 91 09/13/16 07:17 89 100 09/13/16 06:00 101 09/13/16 06:00 101 106/59 09/13/16 04:47 90 100 09/13/16 04:00 100 09/13/16 04:00 101 09/13/16 04:00 98.4 101 19 130/64 89 09/13/16 02:00 101 09/13/16 01:55 90 100 09/13/16 00:00 98.0 100 18 131/61 90 09/13/16 00:00 101 09/13/16 00:00 100 09/12/16 22:48 89 100 09/12/16 22:00 101 09/12/16 20:51 88 100 09/12/16 20:00 101 09/12/16 20:00 98.6 101 18 146/68 84 09/12/16 20:00 100 09/12/16 18:00 110 108/63 09/12/16 18:00 108 09/12/16 16:03 77 100 09/12/16 16:00 110 09/12/16 16:00 98.5 110 22 122/56 75 09/12/16 15:45 100 09/12/16 09/12/16 09/13/16 15:00 23:00 07:00 Intake Total 2368 ml 1665 ml 1265 ml Output Total 250 ml 3905 ml 795 ml Balance 2118 ml -2240 ml 470 ml IV Total 2368 ml 1665 ml 1265 ml Output Urine Total 250 ml 1750 ml 425 ml Gastric Drainage Total 0 ml 0 ml 50 ml Chest Tube Drainage Total 1870 ml 220 ml Drainage Total 0 ml 285 ml 100 ml # Bowel Movements 0 0 0 . Laboratory Tests Test 09/13/16 04:56 White Blood Count 25.9 TH/MM3 Red Blood Count 4.27 MIL/MM3 Hemoglobin 12.2 GM/DL Hematocrit 37.6 % Mean Corpuscular Volume 88.2 FL Mean Corpuscular Hemoglobin 28.6 PG Mean Corpuscular Hemoglobin 32.4 % Concent Red Cell Distribution Width 14.4 % Platelet Count 364 TH/MM3 Mean Platelet Volume 8.1 FL Neutrophils (%) (Auto) 85.1 % Lymphocytes (%) (Auto) 5.1 % Monocytes (%) (Auto) 9.6 % Eosinophils (%) (Auto) 0.1 % Basophils (%) (Auto) 0.1 % Neutrophils # (Auto) 22.0 TH/MM3 Lymphocytes # (Auto) 1.3 TH/MM3 Monocytes # (Auto) 2.5 TH/MM3 Eosinophils # (Auto) 0.0 TH/MM3 Basophils # (Auto) 0.0 TH/MM3 CBC Comment AUTO DIFF Differential Comment AUTO DIFF CONFIRMED Platelet Estimate NORMAL Platelet Morphology Comment NORMAL Laboratory Tests Test 09/11/16 09/11/16 09/12/16 09/12/16 13:14 15:41 02:10 12:53 Lactic Acid Level 1.3 mmol/L 1.8 mmol/L 4.6 mmol/L Sodium Level 140 MEQ/L 138 MEQ/L 138 MEQ/L Potassium Level 3.4 MEQ/L 3.8 MEQ/L 3.4 MEQ/L Chloride Level 102 MEQ/L 101 MEQ/L 99 MEQ/L Carbon Dioxide Level 30.3 MEQ/L 25.7 MEQ/L 24.5 MEQ/L Anion Gap 8 MEQ/L 11 MEQ/L 15 MEQ/L Blood Urea Nitrogen 6 MG/DL 7 MG/DL 12 MG/DL Creatinine 0.35 MG/DL 0.58 MG/DL 1.05 MG/DL Estimat Glomerular Filtration 257 ML/MIN 143 ML/MIN 72 ML/MIN Rate Random Glucose 115 MG/DL 172 MG/DL 216 MG/DL Calcium Level 7.4 MG/DL 7.1 MG/DL 6.9 MG/DL Protein Corrected Calcium 8.9 MG/DL 8.4 MG/DL 8.1 MG/DL Total Creatine Kinase 1110 U/L Creatine Kinase MB 59.7 NG/ML Creatine Kinase MB % 5.4 % Troponin I 0.46 NG/ML 0.82 NG/ML Total Protein 4.5 GM/DL 4.8 GM/DL 4.8 GM/DL Test 09/13/16 09/13/16 04:36 04:56 Lactic Acid Level 1.7 mmol/L Sodium Level 138 MEQ/L Potassium Level 3.6 MEQ/L Chloride Level 100 MEQ/L Carbon Dioxide Level 27.0 MEQ/L Anion Gap 11 MEQ/L Blood Urea Nitrogen 16 MG/DL Creatinine 0.83 MG/DL Estimat Glomerular Filtration 95 ML/MIN Rate Random Glucose 190 MG/DL Calcium Level 7.1 MG/DL Protein Corrected Calcium 8.2 MG/DL Phosphorus Level 1.9 MG/DL Magnesium Level 1.7 MG/DL Total Protein 5.0 GM/DL Microbiology Date/Time Procedure Status Source Growth 09/10/16 21:10 Aerobic Blood Culture - Preliminary Resulted Blood Peripheral NO GROWTH IN 3 DAYS 09/10/16 21:10 Anaerobic Blood Culture - Preliminary Resulted Blood Peripheral NO GROWTH IN 3 DAYS 09/10/16 22:00 Gram Stain - Final Complete Sputum Endotracheal 09/10/16 22:00 Sputum Culture - Final Complete Sputum Endotracheal HEAVY GROWTH NORMAL RESPIRATORY DEVYN 09/10/16 22:00 Urine Culture - Final Complete Urine Clean Catch NO GROWTH IN 48 HOURS. 09/11/16 10:55 Aerobic Blood Culture - Preliminary Resulted Blood Peripheral NO GROWTH IN 2 DAYS 09/11/16 10:55 Anaerobic Blood Culture - Preliminary Resulted Blood Peripheral NO GROWTH IN 2 DAYS Imaging Chest X-Ray 09/12/16 0000 Signed Impressions: Service Date/Time: Monday, September 12, 2016 07:39 - CONCLUSION: Bibasilar airspace disease and bilateral pleural effusions larger on the right. Zechariah Sims MD Abdomen X-Ray 09/09/16 0600 Signed Impressions: Service Date/Time: August 04:54 - CONCLUSION: No significant interval change. Persistent upper mid abdomen small bowel dilatation and wall thickening. Filiberto Hall MD Abdomen/Pelvis CT 09/08/16 0000 Signed Impressions: Service Date/Time: Thursday, September 08, 2016 23:45 - CONCLUSION: 1. Marked inflammatory changes of left upper quadrant with severe mesenteric edema and adjacent short segment circumferential wall thickening of mid small bowel and adjacent distal transverse colon. Possible 4 cm abscess adjacent to the mid small bowel wall. Evaluation of intraluminal versus extraluminal fluid in this region is limited as intraluminal contrast is not present in this loop. A delayed scan may be beneficial for clarification. Differential diagnosis includes inflammatory bowel disease and infection. Moderate amount of free fluid similar to prior study. No evidence of free air. 2. Chronic pancreatitis. Filiberto Hall MD ADDENDUM: Delayed images show contrast filling the thickened loops of left upper quadrant small bowel. No evidence of abscess. Findings were discussed with Dr. Henriquez. Filiberto Hall MD Physical Exam GENERAL: sedated, on the vent, in no apparent distress. SKIN: Cool and dry. No generalized rash HEAD: Atraumatic. Normocephalic. No temporal or scalp tenderness. EYES: [place] conjunctivae. Has scleral edema. No scleral icterus. No injection or drainage. ENT: Nose without bleeding, or purulent drainage. Endotracheal tube is in the mouth. NECK: Trachea midline. No JVD or lymphadenopathy. Supple, nontender, no meningeal signs. CARDIOVASCULAR: Regular rate and rhythm without murmurs, gallops, or rubs. RESPIRATORY: Coarse breath sounds bilaterally, decreased at the bases. GASTROINTESTINAL: Abdomen soft, no reaction to palpation, less distended. Midline incision, dry, no erythema. No bowel sounds MUSCULOSKELETAL: Extremities without clubbing, or edema. No joint effusion, or edema noted. Cyanosis of hands and feet NEUROLOGICAL: Sedated PSYCH: Unable to assess LINE: No evidence of infection : Tavarez in place, urine looks clear Assessment & Plan Remarks IMPRESSION Sepsis with shock, S/P exp lap with LUCY - ?shock tdue to other factors - C/S ok so far Respiratory failure, requiring a lot of O2, FiO2 at 100% - fluid, PNA, ARDS S/P exp lap, LUCY, for SBO Allergy to PCN, has tolerated Cephalosporins in the past RECOMMENDATION Follow C/S Follow CBC Continue Cefepime Continue Flagyl Stop IV Vanco Continue Diflucan Monitor progress D/W RN D/W Dr Ramirez ([facility]) Tati Hansen MD Sep 13, 2016 13:08
[2016-09-13] MEDS: VASOPRESSIN INJ 40 UNITS in DEXTROSE 5% IN WATER 100ML INJ 98 ML IV SCH ×2 (16:58)
--- NOTE | 2016-09-13 20:20 | HHI.PR ---
Subjective Remarks %, maintans sat61 YOWM with Pancreatitis,COPD,Nicotine use had Exp ap on Vent Fi02 100% Requiring pressors Sedated On Levophed and and Milrenone Fi 02 weaned to 90%, maintains sat Objective Vital Signs Vital Signs Date Time Temp Pulse Resp B/P Pulse Ox O2 Delivery O2 Flow Rate FiO2 09/13/16 19:37 95 95 09/13/16 18:00 103 09/13/16 18:00 101 122/57 09/13/16 16:00 97.8 105 19 155/69 94 09/13/16 16:00 100 09/13/16 16:00 103 09/13/16 15:49 95 100 09/13/16 14:00 103 09/13/16 12:00 98.5 103 18 113/57 95 09/13/16 12:00 103 09/13/16 12:00 100 09/13/16 11:10 94 100 09/13/16 10:00 101 09/13/16 08:00 100 09/13/16 08:00 101 09/13/16 08:00 98.2 103 18 115/60 91 09/13/16 07:17 89 100 09/13/16 06:00 101 09/13/16 06:00 101 106/59 09/13/16 04:47 90 100 09/13/16 04:00 100 09/13/16 04:00 101 09/13/16 04:00 98.4 101 19 130/64 89 09/13/16 02:00 101 09/13/16 01:55 90 100 09/13/16 00:00 98.0 100 18 131/61 90 09/13/16 00:00 101 09/13/16 00:00 100 09/12/16 22:48 89 100 09/12/16 22:00 101 09/12/16 20:51 88 100 I/O 09/12/16 09/12/16 09/12/16 09/13/16 09/13/16 09/13/16 07:00 15:00 23:00 07:00 15:00 23:00 Intake Total 5148 ml 2368 ml 1665 ml 1265 ml 1226 ml Output Total 135 ml 250 ml 3905 ml 795 ml 2020 ml Balance 5013 ml 2118 ml -2240 ml 470 ml -794 ml IV Total 5148 ml 2368 ml 1665 ml 1265 ml 1226 ml Output Urine Total 125 ml 250 ml 1750 ml 425 ml 1650 ml Gastric Drainage Total 0 ml 0 ml 0 ml 50 ml 0 ml Chest Tube Drainage Total 1870 ml 220 ml 125 ml Drainage Total 10 ml 0 ml 285 ml 100 ml 245 ml # Bowel Movements 0 0 0 0 Result Diagram: 09/13/166 09/13/16455 Objective Remarks GENERAL: MBMN WM , on Vent sedated SKIN: Warm and dry. HEAD: Normocephalic. EYES: No scleral icterus. No injection or drainage. NECK: Supple, trachea midline. No JVD or lymphadenopathy. CARDIOVASCULAR: Regular rate and rhythm without murmurs, gallops, or rubs. RESPIRATORY: Breath sounds equal bilaterally. No accessory muscle use. GASTROINTESTINAL: Abdomen soft, non-tender, MUSCULOSKELETAL: No cyanosis, or edema. BACK: Nontender without obvious deformity. No CVA tenderness. A/P Assessment and Plan Vent dependent RF Profound hypoxia Hypoxia Hypotension S/P Exp Lap COPD Nicotine use DM PLAN: Vent Support. Fi02 90% Levophed to support BP Broad spectrum Abx Aerosol nebs managing critical care. cont Levophed, Milrenone Velasquez Hill MD Sep 13, 2016 20:20
[2016-09-13] MEDS: DEXTROSE 5% IV SCH ×2 (20:30)
[2016-09-13] MEDS: NOREPINEPHRINE IV SCH ×2 (20:30)
[2016-09-13] MEDS: WATER IV SCH ×2 (20:30)
[2016-09-13] MEDS ORDERED: VANCOMYCIN INJ 1,750 MG in SODIUM CHLORID 0.9% 500 ML INJ 500 ML IV SCH (22:00)
[2016-09-13] MEDS: fentaNYL 2,500 MCG/NS 250 ML IV SCH (23:50)
[2016-09-14] VITALS (19 sets, daily range): BP systolic 101–155; BP diastolic 56–75; PULSE 97–106; RESP 18–22; TEMP 97.7–98.1; O2SAT 91–98
[2016-09-14 00:46] LABS: POTASSIUM 3.4 MEQ/L (3.5-5.1)
[2016-09-14 00:58] LABS: CALCIUM-PROTEIN CORRECTED 7.9 MG/DL (8.5-10.1)
[2016-09-14] MEDS: MILRINONE INJ 20 MG in SODIUM CHLORIDE 0.9% INJ 80 ML IV SCH ×3 (04:20→18:40)
[2016-09-14] MEDS: POTASSIUM PHOSPHATE INJ 30 MMOL in SODIUM CHLOR 0.9% 250 ML INJ 250 ML IV PRN (04:30)
[2016-09-14] MEDS: INSULIN ASPART SUPPLEMENTAL SCALE SQ SCH ×4 (07:00→22:43)
--- NOTE | 2016-09-14 07:54 | HHI.PR ---
Subjective Subjective Notes Awake and responsive; follows commands Objective Vitals/I&O Vital Signs Date Time Temp Pulse Resp B/P Pulse Ox O2 Delivery O2 Flow Rate FiO2 09/14/16 07:37 94 90 09/14/16 04:00 102 09/14/16 04:00 98.1 20 130/64 09/12/16 04:25 15.00 09/10/16 19:38 Ventilator Labs Laboratory Tests Test 09/13/16 09/14/16 11:34 00:17 Vancomycin Level Trough 29.3 Sodium Level 139 Potassium Level 3.4 Chloride Level 100 Carbon Dioxide Level 28.0 Anion Gap 11 Blood Urea Nitrogen 21 Creatinine 0.76 Estimat Glomerular Filtration 105 Rate Random Glucose 204 Lactic Acid Level 1.8 Calcium Level 6.9 Protein Corrected Calcium 7.9 Phosphorus Level 2.1 Total Protein 5.1 Date/Time Procedure Status Source Growth 09/11/16 10:55 Aerobic Blood Culture - Preliminary Resulted Blood Peripheral NO GROWTH IN 2 DAYS 09/11/16 10:55 Anaerobic Blood Culture - Preliminary Resulted Blood Peripheral NO GROWTH IN 2 DAYS 09/10/16 22:00 Urine Culture - Final Complete Urine Clean Catch NO GROWTH IN 48 HOURS. 09/10/16 22:00 Gram Stain - Final Complete Sputum Endotracheal 09/10/16 22:00 Sputum Culture - Final Complete Sputum Endotracheal HEAVY GROWTH NORMAL RESPIRATORY DEVYN Radiology Last Impressions Chest X-Ray 09/12/16 0000 Signed Impressions: Service Date/Time: Monday, September 12, 2016 07:39 - CONCLUSION: Bibasilar airspace disease and bilateral pleural effusions larger on the right. Zechariah Sims MD Abdomen X-Ray 09/09/16 0600 Signed Impressions: Service Date/Time: August 04:54 - CONCLUSION: No significant interval change. Persistent upper mid abdomen small bowel dilatation and wall thickening. Filiberto Hall MD Abdomen/Pelvis CT 09/08/16 0000 Signed Impressions: Service Date/Time: Thursday, September 08, 2016 23:45 - CONCLUSION: 1. Marked inflammatory changes of left upper quadrant with severe mesenteric edema and adjacent short segment circumferential wall thickening of mid small bowel and adjacent distal transverse colon. Possible 4 cm abscess adjacent to the mid small bowel wall. Evaluation of intraluminal versus extraluminal fluid in this region is limited as intraluminal contrast is not present in this loop. A delayed scan may be beneficial for clarification. Differential diagnosis includes inflammatory bowel disease and infection. Moderate amount of free fluid similar to prior study. No evidence of free air. 2. Chronic pancreatitis. Filiberto Hall MD ADDENDUM: Delayed images show contrast filling the thickened loops of left upper quadrant small bowel. No evidence of abscess. Findings were discussed with Dr. Henriquez. Filiberto Hall MD Lungs: Clear Abdomen: Post-op tenderness Narrative Exam ROSHAN output serosanguinous Incision clean and dry; joseluis intact without erythema. A/P Problem List: (1) Sepsis (2) COPD (chronic obstructive pulmonary disease) (3) Hypokalemia (4) Hyponatremia (5) Abdominal pain (6) Enteritis (7) Ileus (8) Leukocytosis (9) Diabetes (10) Systemic inflammatory response syndrome (SIRS) Assessment and Plan POD #4 Exploratory Laparotomy, lysis of adhesions Critically ill on vent with multiple drips; vasopressin off and levophed down to 6mcg/min Bilateral chest tubes for pleural effusions; Right chest tube with minimal output. Will place to water seal. Abdominal pressure 16 yesterday WBC's remain elevated Plan: Continue full support Continue to wean drips Attending Note - Dr. Henriquez Wound clean and dry Chest tube outputs serous bilaterally The exam, history, and the medical decision-making described in the above note were completed with the assistance of the mid-level provider. I reviewed and agree with the findings presented. I attest that I had a [id number] encounter with the patient on the same day, and personally performed and documented my assessment and findings in the medical record. Problem Qualifiers (1) Leukocytosis: Qualified Code: D72.829 - Leukocytosis, unspecified type Bret Henriquez MD Sep 14, 2016 07:54
[2016-09-14] MEDS: CHLORHEXIDINE 0.12% (ORAL KIT) 15 ML CUP MT SCH ×2 (08:00→20:12)
[2016-09-14] MEDS: CEFEPIME INJ 2,000 MG in SODIUM CHLORIDE 0.9% INJ 100 ML IV SCH ×3 (08:13→20:20)
[2016-09-14] MEDS: HYDROCORTISONE SOD SUCCINATE 100 MG VIAL IV PUSH SCH ×3 (08:14→18:00)
[2016-09-14] MEDS: metroNIDAZOLE 500 MG INJ 100 ML IV SCH ×3 (08:14→23:01)
[2016-09-14] MEDS: SODIUM CHLORIDE 0.9% FLUSH 5 ML FLUSH FLUSH SCH ×2 (08:54→20:12)
[2016-09-14] MEDS: LORATADINE 10 MG TAB PO SCH (08:54)
[2016-09-14] MEDS: PANTOPRAZOLE SODIUM 40 MG VIAL IV PUSH SCH ×2 (08:54→20:20)
[2016-09-14] MEDS: guaiFENesin E.R. 600 MG TAB PO SCH ×2 (08:57→20:20)
[2016-09-14] MEDS: LISINOPRIL 10 MG TAB PO SCH (08:57)
[2016-09-14] MEDS: FLUTICASONE PROPIONATE 50 MCG/ACT 16 GM NASAL SPRAY NASAL SCH ×2 (08:58→22:43)
--- NOTE | 2016-09-14 10:18 | HHI.IDPN ---
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 Cleared per Infection Control. Patient does not require isolation for hx of MRSA prior to 09/10/15. Objective . Vital Signs Date Time Temp Pulse Resp B/P Pulse Ox O2 Delivery O2 Flow Rate FiO2 09/14/16 10:00 102 09/14/16 08:00 80 09/14/16 08:00 102 09/14/16 08:00 98.1 102 19 124/75 93 09/14/16 07:37 94 90 09/14/16 07:00 102 116/69 09/14/16 06:00 102 09/14/16 04:01 92 90 09/14/16 04:00 102 09/14/16 04:00 98.1 102 20 130/64 92 09/14/16 04:00 90 09/14/16 02:00 98 09/14/16 01:22 93 90 09/14/16 00:00 97.7 101 22 140/68 91 09/14/16 00:00 101 09/14/16 00:00 90 09/13/16 22:00 99 09/13/16 20:00 103 09/13/16 20:00 95 09/13/16 20:00 97.4 103 25 133/63 93 09/13/16 19:37 95 95 09/13/16 18:00 103 09/13/16 18:00 101 122/57 09/13/16 16:00 97.8 105 19 155/69 94 09/13/16 16:00 100 09/13/16 16:00 103 09/13/16 15:49 95 100 09/13/16 14:00 103 09/13/16 12:00 98.5 103 18 113/57 95 09/13/16 12:00 103 09/13/16 12:00 100 09/13/16 11:10 94 100 09/13/16 09/13/16 09/14/16 15:00 23:00 07:00 Intake Total 1226 ml 862 ml 1133 ml Output Total 2020 ml 650 ml 670 ml Balance -794 ml 212 ml 463 ml IV Total 1226 ml 862 ml 1133 ml Output Urine Total 1650 ml 475 ml 425 ml Gastric Drainage Total 0 ml 0 ml 0 ml Chest Tube Drainage Total 125 ml 50 ml 120 ml Drainage Total 245 ml 125 ml 125 ml # Bowel Movements 0 0 0 . Laboratory Tests Test 09/13/16 04:56 White Blood Count 25.9 TH/MM3 Red Blood Count 4.27 MIL/MM3 Hemoglobin 12.2 GM/DL Hematocrit 37.6 % Mean Corpuscular Volume 88.2 FL Mean Corpuscular Hemoglobin 28.6 PG Mean Corpuscular Hemoglobin 32.4 % Concent Red Cell Distribution Width 14.4 % Platelet Count 364 TH/MM3 Mean Platelet Volume 8.1 FL Neutrophils (%) (Auto) 85.1 % Lymphocytes (%) (Auto) 5.1 % Monocytes (%) (Auto) 9.6 % Eosinophils (%) (Auto) 0.1 % Basophils (%) (Auto) 0.1 % Neutrophils # (Auto) 22.0 TH/MM3 Lymphocytes # (Auto) 1.3 TH/MM3 Monocytes # (Auto) 2.5 TH/MM3 Eosinophils # (Auto) 0.0 TH/MM3 Basophils # (Auto) 0.0 TH/MM3 CBC Comment AUTO DIFF Differential Comment AUTO DIFF CONFIRMED Platelet Estimate NORMAL Platelet Morphology Comment NORMAL Laboratory Tests Test 09/12/16 09/13/16 09/13/16 09/14/16 12:53 04:36 04:56 00:17 Sodium Level 138 MEQ/L 138 MEQ/L 139 MEQ/L Potassium Level 3.4 MEQ/L 3.6 MEQ/L 3.4 MEQ/L Chloride Level 99 MEQ/L 100 MEQ/L 100 MEQ/L Carbon Dioxide Level 24.5 MEQ/L 27.0 MEQ/L 28.0 MEQ/L Anion Gap 15 MEQ/L 11 MEQ/L 11 MEQ/L Blood Urea Nitrogen 12 MG/DL 16 MG/DL 21 MG/DL Creatinine 1.05 MG/DL 0.83 MG/DL 0.76 MG/DL Estimat Glomerular Filtration 72 ML/MIN 95 ML/MIN 105 ML/MIN Rate Random Glucose 216 MG/DL 190 MG/DL 204 MG/DL Lactic Acid Level 4.6 mmol/L 1.7 mmol/L 1.8 mmol/L Calcium Level 6.9 MG/DL 7.1 MG/DL 6.9 MG/DL Protein Corrected Calcium 8.1 MG/DL 8.2 MG/DL 7.9 MG/DL Total Protein 4.8 GM/DL 5.0 GM/DL 5.1 GM/DL Phosphorus Level 1.9 MG/DL 2.1 MG/DL Magnesium Level 1.7 MG/DL Microbiology Date/Time Procedure Status Source Growth 09/11/16 10:55 Aerobic Blood Culture - Preliminary Resulted Blood Peripheral NO GROWTH IN 2 DAYS 09/11/16 10:55 Anaerobic Blood Culture - Preliminary Resulted Blood Peripheral NO GROWTH IN 2 DAYS Imaging Chest X-Ray 09/12/16 0000 Signed Impressions: Service Date/Time: Monday, September 12, 2016 07:39 - CONCLUSION: Bibasilar airspace disease and bilateral pleural effusions larger on the right. Zechariah Sims MD Abdomen X-Ray 09/09/16 0600 Signed Impressions: Service Date/Time: August 04:54 - CONCLUSION: No significant interval change. Persistent upper mid abdomen small bowel dilatation and wall thickening. Filiberto Hall MD Abdomen/Pelvis CT 09/08/16 0000 Signed Impressions: Service Date/Time: Thursday, September 08, 2016 23:45 - CONCLUSION: 1. Marked inflammatory changes of left upper quadrant with severe mesenteric edema and adjacent short segment circumferential wall thickening of mid small bowel and adjacent distal transverse colon. Possible 4 cm abscess adjacent to the mid small bowel wall. Evaluation of intraluminal versus extraluminal fluid in this region is limited as intraluminal contrast is not present in this loop. A delayed scan may be beneficial for clarification. Differential diagnosis includes inflammatory bowel disease and infection. Moderate amount of free fluid similar to prior study. No evidence of free air. 2. Chronic pancreatitis. Filiberto Hall MD ADDENDUM: Delayed images show contrast filling the thickened loops of left upper quadrant small bowel. No evidence of abscess. Findings were discussed with Dr. Henriquez. Filiberto Hall MD Physical Exam GENERAL: awake, and responding, on the vent, in no apparent distress. SKIN: Cool and dry. No generalized rash HEAD: Atraumatic. Normocephalic. No temporal or scalp tenderness. EYES: Humphreys conjunctivae. Has scleral edema. No scleral icterus. No injection or drainage. ENT: Nose without bleeding, or purulent drainage. Endotracheal tube is in the mouth. NECK: Trachea midline. No JVD or lymphadenopathy. Supple, nontender, no meningeal signs. CARDIOVASCULAR: Regular rate and rhythm without murmurs, gallops, or rubs. RESPIRATORY: Coarse breath sounds bilaterally, decreased at the bases. GASTROINTESTINAL: Abdomen soft, no reaction to palpation, less distended. Midline incision, dry, no erythema. MUSCULOSKELETAL: Extremities without clubbing, or edema. No joint effusion, or edema noted. Cyanosis of hands and feet NEUROLOGICAL: Responding PSYCH: Cooperative LINE: No evidence of infection : Tavarez in place, urine looks clear Assessment & Plan Remarks IMPRESSION Sepsis with shock, S/P exp lap with LUCY - ?shock due to other factors - C/S ok so far Respiratory failure, requiring a lot of O2, FiO2 at 100% - fluid, PNA, ARDS S/P exp lap, LUCY, for SBO Allergy to PCN, has tolerated Cephalosporins in the past RECOMMENDATION Follow C/S Follow CBC Continue Cefepime Continue Flagyl Continue Diflucan Monitor progress D/W Tati Howard MD Sep 14, 2016 10:18
--- NOTE | 2016-09-14 10:56 | HHI.CCPN ---
Subjective Remarks/Hospital Course Note for 09/13/16: This is a 61-year-old male with a past medical history of chronic pancreatitis, hypertension, type 2 diabetes who presented with abdominal pain that started Tuesday. Patient stated that abdominal pain is located in the left lower quadrant and it was very mild. He said over the weekend has worsened in intensity and is constant. Patient stated that he has some nausea that resolves or improves with food. Deny any emesis. Patient also complains of a chronic productive cough that has been the same. He denies any diarrhea or constipation and see that his stools are normal. Patient also denies any fever or chills. She was admitted to hospitalist service and was evaluated subsequently by GI, Dr. Pinto as well as Dr. Henriquez from general surgery in view of abnormal CT abdomen pelvis with left upper quadrant inflammatory change in these and treat with edema and KUBs raising question of SBO. She underwent E lap with lysis of lesions under general anesthesia by Dr. Henriquez on 09/10, EBL 100 cc, received 2 L crystalloid intraoperatively, postop diagnosis small bowel adhesions. Patient was kept intubated postoperatively and transferred to [facility]. I saw the patient shortly after his arrival to the ICU. He had just been started on Versed and fentanyl and dropped his blood pressure to the 60 systolic range. He was ordered a fluid bolus 2 L crystalloids stat and started on Levophed for hypotension. Stat cultures were sent. Patient also is having problem with his O2 sats were dropping in the 80s. Stat chest x-ray was ordered. While waiting for chest x-ray, ET tube area relief pilot balloon appeared damaged hence cuff was not holding air so patient was sedated with Etomidate/ Fentanyl/ Rocuronium and ET tube was changed over a tube exchanger which was confirmed with a postprocedure chest x-ray with satisfactory placement of ET tube, right IJ central line in place, bilateral interstitial infiltrates with hyperinflated lung rothman, no pneumothorax. Patient was requiring 2 mics of Levophed for pressor support. 09/11: Ongoing hypotension and difficulty with oxygenation. Persistent hypotension responsive to volume. CVP 20. Suspect chronic pulmonary hypertension with heavily preload-dependent cardiac output. Will start milrinone for RV support and add vasopressin to levophed prn. Sustained tachycardia prohibits continued escalation of levophed. Underlying lung function is marginal at best. 09/12 0740 hrs: Severe chronic lung disease without significant reserve appears to be the primary pathophysiology here. We were able to produce acceptable cardiac output yesterday with milrinone and vasopressin, minor amounts levophed for peripheral support. He has developed refractory hypoxemia overnight in the 60 - 70% range which is incompatible with survival. Cardiopulmonary dynamics have been maximized and are beginning to deteriorate. Will get another CXR and see if thoracentesis will help lung function. 09/12 1600 hours: Continued difficulty with oxygenation, sats in range 78 - 81% .Cardioverted pharmacologically back to NSR and Flotrac output 7.8. Abdominal pressure 18. At this point he has adequate blood flow and oxygen delivery capacity despite low PO2. We have tried various vent modes and PC/AC appears to work best. SVV is 10; altogether these observations recommend diuresis to help oxygenation. He has horrible diffuse emphysema and a moderate right pleural effusion - may be forced to place a chest tube to allow better lung expansion. 09/13: Improved oxygenation after aggressive diuresis. Renal function remains stable. Alert, responsive. Objective Vital Signs Date Time Temp Pulse Resp B/P Pulse Ox O2 Delivery O2 Flow Rate FiO2 09/14/16 10:00 102 09/14/16 08:00 80 09/14/16 08:00 98.1 19 124/75 93 09/12/16 04:25 15.00 09/10/16 19:38 Ventilator Intake and Output 09/13/16 09/13/16 09/14/16 08:00 16:00 00:00 Intake Total 1265 ml 1226 ml 862 ml Output Total 795 ml 2020 ml 650 ml Balance 470 ml -794 ml 212 ml Result Diagram: 09/13/16 0456 09/14/16 0017 Objective Remarks HEENT/ Neuro: Follows commands this afternoon. Moves 4 limbs. Neck: Supple.Orally intubated. Chest/Pulm: On mech vent, good air entry bilaterally, mild wheezing, no crackles , improved basilar breath sounds. CVS: S1-S2 regular, no murmur. + JVD GI/abdomen: soft, nontender, bowel sounds quiet, distended, ROSHAN drain in place Extremities: Warm now bilaterally, 1+ edema. A/P Assessment and Plan 61-year-old male with: Abdominal pain Mesenteric edema Small bowel adhesions/SBO status post a lap with lysis of adhesions and removal of 2 L of ascites 09/10 Advanced COPD Acute respiratory failure on mechanical ventilation Diabetes mellitus Chronic pancreatitis History of gallstones Plan: Neuro: Sedation with propofol/fentanyl. Daily sedation vacation. Follow neuro status. Cardiovascular: Milrinone, vasopressin. Add digoxin for rate control. Levophed for pressor support as needed. Hold lisinopril. Pulmonary: Continue mechanical ventilation, vent bundle, bronchodilators. PC/AC mode. Being followed by pulmonary medicine Dr. Hill. GI/liver: Nothing by mouth for now. NG to suction. ID: On Levaquin/Flagyl/clindamycin IV. Increasing leukocytosis noted. Follow lactic acid levels in view of hypotension. Endocrine: SSI for glycemic control Renal/: Patient appears well hydrated Strict intake output, monitor and replete electrolytes, follow BUN/creatinine. Continue diuresis. Heme: Follow CBC Prophylaxis: PPI/SCDs. Overall impression: Critically ill with persistent large A-aO2 gradient. Tristin Ramirez MD Sep 14, 2016 10:56
--- NOTE | 2016-09-14 10:59 | HHI.CCPN ---
Subjective Remarks/Hospital Course Note for 09/14/16: This is a 61-year-old male with a past medical history of chronic pancreatitis, hypertension, type 2 diabetes who presented with abdominal pain that started Tuesday. Patient stated that abdominal pain is located in the left lower quadrant and it was very mild. He said over the weekend has worsened in intensity and is constant. Patient stated that he has some nausea that resolves or improves with food. Deny any emesis. Patient also complains of a chronic productive cough that has been the same. He denies any diarrhea or constipation and see that his stools are normal. Patient also denies any fever or chills. She was admitted to hospitalist service and was evaluated subsequently by GI, Dr. Pinto as well as Dr. Henriquez from general surgery in view of abnormal CT abdomen pelvis with left upper quadrant inflammatory change in these and treat with edema and KUBs raising question of SBO. She underwent E lap with lysis of lesions under general anesthesia by Dr. Henriquez on 09/10, EBL 100 cc, received 2 L crystalloid intraoperatively, postop diagnosis small bowel adhesions. Patient was kept intubated postoperatively and transferred to [facility]. I saw the patient shortly after his arrival to the ICU. He had just been started on Versed and fentanyl and dropped his blood pressure to the 60 systolic range. He was ordered a fluid bolus 2 L crystalloids stat and started on Levophed for hypotension. Stat cultures were sent. Patient also is having problem with his O2 sats were dropping in the 80s. Stat chest x-ray was ordered. While waiting for chest x-ray, ET tube forestry pilot balloon appeared damaged hence cuff was not holding air so patient was sedated with Etomidate/ Fentanyl/ Rocuronium and ET tube was changed over a tube exchanger which was confirmed with a postprocedure chest x-ray with satisfactory placement of ET tube, right IJ central line in place, bilateral interstitial infiltrates with hyperinflated lung rothman, no pneumothorax. Patient was requiring 2 mics of Levophed for pressor support. 09/11: Ongoing hypotension and difficulty with oxygenation. Persistent hypotension responsive to volume. CVP 20. Suspect chronic pulmonary hypertension with heavily preload-dependent cardiac output. Will start milrinone for RV support and add vasopressin to levophed prn. Sustained tachycardia prohibits continued escalation of levophed. Underlying lung function is marginal at best. 09/12 0740 hrs: Severe chronic lung disease without significant reserve appears to be the primary pathophysiology here. We were able to produce acceptable cardiac output yesterday with milrinone and vasopressin, minor amounts levophed for peripheral support. He has developed refractory hypoxemia overnight in the 60 - 70% range which is incompatible with survival. Cardiopulmonary dynamics have been maximized and are beginning to deteriorate. Will get another CXR and see if thoracentesis will help lung function. 09/12 1600 hours: Continued difficulty with oxygenation, sats in range 78 - 81% .Cardioverted pharmacologically back to NSR and Flotrac output 7.8. Abdominal pressure 18. At this point he has adequate blood flow and oxygen delivery capacity despite low PO2. We have tried various vent modes and PC/AC appears to work best. SVV is 10; altogether these observations recommend diuresis to help oxygenation. He has horrible diffuse emphysema and a moderate right pleural effusion - may be forced to place a chest tube to allow better lung expansion. 09/13: Improved oxygenation after aggressive diuresis. Renal function remains stable. Alert, responsive. 09.14: Continued good diuresis after lasix. A-aO2 gradient marginally improved. Remains alert. Objective Vital Signs Date Time Temp Pulse Resp B/P Pulse Ox O2 Delivery O2 Flow Rate FiO2 09/14/16 10:00 102 09/14/16 08:00 80 09/14/16 08:00 98.1 19 124/75 93 09/12/16 04:25 15.00 09/10/16 19:38 Ventilator Intake and Output 09/13/16 09/13/16 09/14/16 08:00 16:00 00:00 Intake Total 1265 ml 1226 ml 862 ml Output Total 795 ml 2020 ml 650 ml Balance 470 ml -794 ml 212 ml Result Diagram: 09/13/16 0456 09/14/16 0017 Objective Remarks HEENT/ Neuro: Follows commands. Moves 4 limbs. Neck: Supple.Orally intubated. Chest/Pulm: On mech vent, good air entry bilaterally, no wheezing, no crackles, improved basilar breath sounds. CVS: S1-S2 regular, no murmur. + JVD GI/abdomen: soft, nontender, bowel sounds quiet, less distended, ROSHAN drain in place Extremities: Warm now bilaterally, 1+ edema. A/P Assessment and Plan 61-year-old male with: Abdominal pain Mesenteric edema Small bowel adhesions/SBO status post a lap with lysis of adhesions and removal of 2 L of ascites 09/10 Advanced COPD Acute respiratory failure on mechanical ventilation Diabetes mellitus Chronic pancreatitis History of gallstones Plan: Neuro: Sedation with propofol/fentanyl. Daily sedation vacation. Follow neuro status. Cardiovascular: Milrinone, vasopressin. Add digoxin for rate control. Levophed for pressor support as needed. Hold lisinopril. Pulmonary: Continue mechanical ventilation, vent bundle, bronchodilators. PC/AC mode. Being followed by pulmonary medicine Dr. Hill. GI/liver: Nothing by mouth for now. NG to suction. ID: On Levaquin/Flagyl/clindamycin IV. Increasing leukocytosis noted. Follow lactic acid levels in view of hypotension. Endocrine: SSI for glycemic control Renal/: Patient appears well hydrated Strict intake output, monitor and replete electrolytes, follow BUN/creatinine. Continue diuresis. Heme: Follow CBC Prophylaxis: PPI/SCDs. Nutrition: TPN? Overall impression: Critically ill with persistent large A-aO2 gradient. Tristin Rmairez MD Sep 14, 2016 10:59
[2016-09-14] MEDS ORDERED: FUROSEMIDE 100 MG/10 ML VIAL IV PUSH ONE (11:30)
[2016-09-14] MEDS: FLUCONAZOLE 400 MG PREMIX BAG 200 ML IV SCH (11:41)
[2016-09-14 13:03] LABS: BICARBONATE 26.8 MEQ/L (21.0-32.0); POTASSIUM 3.7 MEQ/L (3.5-5.1)
[2016-09-14 13:16] LABS: CALCIUM-PROTEIN CORRECTED 8.1 MG/DL (8.5-10.1)
--- NOTE | 2016-09-14 13:37 | RADRPT ---
EXAM DATE/TIME: 09/14/2016 12:25 [place] COMPARISON: CHEST SINGLE AP, September 13, 2016, 9:56. INDICATIONS : Right chest tube to waterseal. Pneumonia. MEDICAL HISTORY : Hypertension. Hypercholesterolemia. Chronic obstructive pulmonary disease. Pneumonia. Pancreatiti s. Gall stones. GERD. Diabetic. SURGICAL HISTORY : Lumbar surgery. Gall stone removal. Splenic stent. ENCOUNTER: Subsequent ACUITY: 3 weeks PAIN SCORE: 0/10 LOCATION: chest FINDINGS: Bilateral chest tubes are stable. There is pneumothorax on either side. The endotracheal tube is 5 cm above the regine and unchanged. The nasogastric tube has its tip below the diaphragm. A right in ternal jugular central line has its tip in the superior vena cava. Scattered infiltrates are noted b ilaterally and are stable. The heart is stable. CONCLUSION: 1. No pneumothorax. 2. Multiple tubes and lines are stable. 3. Scattered patchy infiltrates bilaterally. Jostin Crow MD on September 14, 2016 at 13:31 Board Certified Radiologist. This report was verified electronically.
[2016-09-14] MEDS: VASOPRESSIN INJ 40 UNITS in DEXTROSE 5% IN WATER 100ML INJ 98 ML IV SCH ×2 (13:48)
[2016-09-14] MEDS ORDERED: PHARMACY ORDERED LAB XX ONE (15:45)
--- NOTE | 2016-09-14 19:22 | HHI.PR ---
Subjective Remarks %, maintans sat61 YOWM with Pancreatitis,COPD,Nicotine use had Exp ap on Vent Fi02 75 % Requiring pressors Sedated On Levophed and and Milrenone Fi02 weaned to 75%, maintains sat Tolerates PCV Objective Vital Signs Vital Signs Date Time Temp Pulse Resp B/P Pulse Ox O2 Delivery O2 Flow Rate FiO2 09/14/16 18:00 101 09/14/16 18:00 102 117/61 09/14/16 16:00 75 09/14/16 16:00 98.0 103 20 119/74 92 09/14/16 16:00 103 09/14/16 15:18 92 75 09/14/16 14:00 103 09/14/16 12:18 95 75 09/14/16 12:00 80 09/14/16 12:00 98.0 106 19 155/75 94 09/14/16 12:00 106 09/14/16 10:00 102 09/14/16 08:00 80 09/14/16 08:00 102 09/14/16 08:00 98.1 102 19 124/75 93 09/14/16 07:37 94 90 09/14/16 07:00 102 116/69 09/14/16 06:00 102 09/14/16 04:01 92 90 09/14/16 04:00 102 09/14/16 04:00 98.1 102 20 130/64 92 09/14/16 04:00 90 09/14/16 02:00 98 09/14/16 01:22 93 90 09/14/16 00:00 97.7 101 22 140/68 91 09/14/16 00:00 101 09/14/16 00:00 90 09/13/16 22:00 99 09/13/16 20:00 103 09/13/16 20:00 95 09/13/16 20:00 97.4 103 25 133/63 93 09/13/16 19:37 95 95 I/O 09/13/16 09/13/16 09/13/16 09/14/16 09/14/16 09/14/16 07:00 15:00 23:00 07:00 15:00 23:00 Intake Total 1265 ml 1226 ml 862 ml 1133 ml 1160 ml Output Total 795 ml 2020 ml 650 ml 670 ml 1170 ml Balance 470 ml -794 ml 212 ml 463 ml -10 ml IV Total 1265 ml 1226 ml 862 ml 1133 ml 1160 ml Output Urine Total 425 ml 1650 ml 475 ml 425 ml 1000 ml Gastric Drainage Total 50 ml 0 ml 0 ml 0 ml 0 ml Chest Tube Drainage Total 220 ml 125 ml 50 ml 120 ml 60 ml Drainage Total 100 ml 245 ml 125 ml 125 ml 110 ml # Bowel Movements 0 0 0 0 0 Result Diagram: 09/13/16 0456 09/14/16 1202 Objective Remarks GENERAL: MBMN WM , on Vent sedated SKIN: Warm and dry. HEAD: Normocephalic. EYES: No scleral icterus. No injection or drainage. NECK: Supple, trachea midline. No JVD or lymphadenopathy. CARDIOVASCULAR: Regular rate and rhythm without murmurs, gallops, or rubs. RESPIRATORY: Breath sounds equal bilaterally. No accessory muscle use. GASTROINTESTINAL: Abdomen soft, non-tender, MUSCULOSKELETAL: No cyanosis, or edema. BACK: Nontender without obvious deformity. No CVA tenderness. A/P Assessment and Plan Vent dependent RF Profound hypoxia Hypoxia Hypotension S/P Exp Lap COPD Nicotine use DM PLAN: Vent Support. Fi02 75%,PCV Levophed to support BP Broad spectrum Abx Aerosol nebs. cont Levophed, Milrenone DW Dr.Harmon Hill,Velasquez Luong MD Sep 14, 2016 19:22
[2016-09-14] MEDS: CLINIMIX E 5/25 1000 mL- </= 42 mls/hr IV-CENTRAL SCH ×3 (20:20)
[2016-09-14] MEDS: fentaNYL 2,500 MCG/NS 250 ML IV SCH (20:22)
[2016-09-15] VITALS (18 sets, daily range): BP systolic 100–146; BP diastolic 50–71; PULSE 86–98; RESP 18; TEMP 97.5–98; O2SAT 91–95
[2016-09-15] MEDS: HYDROCORTISONE SOD SUCCINATE 100 MG VIAL IV PUSH SCH ×4 (00:16→20:38)
[2016-09-15] MEDS: MILRINONE INJ 20 MG in SODIUM CHLORIDE 0.9% INJ 80 ML IV SCH ×4 (00:36→20:36)
[2016-09-15 05:25] LABS: BASOPHIL # 0.1 TH/MM3 (0-0.2); BASOPHIL % 0.2 % (0.0-2.0); EOSINOPHIL % 0.1 % (0.0-4.0); HEMATOCRIT 39.3 % (39.0-51.0); LYMPHOCYTE # 1.3 TH/MM3 (1.0-4.8); MEAN CELL VOLUME 86.8 FL (80.0-100.0); MEAN CORPUSCULAR HEMOGLOBIN 28.6 PG (27.0-34.0); MONO % 9.3 % (0.0-8.0); NEUT % 84.4 % (16.0-70.0); PLATELET COUNT 235 TH/MM3 (150-450); RED BLOOD COUNT 4.53 MIL/MM3 (4.50-5.90); RED CELL DISTRIBUTION WIDTH 14.3 % (11.6-17.2); WHITE BLOOD COUNT 21.4 TH/MM3 (4.0-11.0)
[2016-09-15 05:46] LABS: HEMO FLAGS AUTO DIFF
[2016-09-15] MEDS: CEFEPIME INJ 2,000 MG in SODIUM CHLORIDE 0.9% INJ 100 ML IV SCH ×3 (05:46→20:38)
[2016-09-15 06:13] LABS: BICARBONATE 25.6 MEQ/L (21.0-32.0); POTASSIUM 3.3 MEQ/L (3.5-5.1)
[2016-09-15 06:29] LABS: CALCIUM-PROTEIN CORRECTED 7.9 MG/DL (8.5-10.1)
[2016-09-15] MEDS ORDERED: DEXTROSE 50% IN WATER 50 ML VIAL(D50) IV PUSH PRN ×2 (06:30→17:15)
[2016-09-15 07:08] LABS: BANDS 2 % (0-6); MYELOCYTES 1 % (0-0); NEUTROPHIL # MANUAL DIFF 18.2 TH/MM3 (1.8-7.7); POLYS (SEG NEUTROPHILS) 82 % (16-70); WBC DIFF SAMPLE 100
[2016-09-15 07:09] LABS: PLATELET ESTIMATE SMEAR NORMAL (NORMAL); PLATELET MORPHOLOGY NORMAL (NORMAL); SCAN/DIFF FINAL DIFF MANUAL
[2016-09-15] MEDS: metroNIDAZOLE 500 MG INJ 100 ML IV SCH ×3 (07:50→23:25)
[2016-09-15] MEDS: INSULIN NovoLIN REGULAR SUPPLEMENTAL SCALE SQ SCH ×5 (07:51→23:43)
[2016-09-15] MEDS: CHLORHEXIDINE 0.12% (ORAL KIT) 15 ML CUP MT SCH ×2 (08:00→20:43)
[2016-09-15] MEDS: SODIUM CHLORIDE 0.9% FLUSH 5 ML FLUSH FLUSH SCH ×2 (08:46→20:44)
[2016-09-15] MEDS: FLUTICASONE PROPIONATE 50 MCG/ACT 16 GM NASAL SPRAY NASAL SCH ×2 (08:47→20:57)
[2016-09-15] MEDS: LORATADINE 10 MG TAB PO SCH (08:47)
[2016-09-15] MEDS: LISINOPRIL 10 MG TAB PO SCH (08:47)
[2016-09-15] MEDS: guaiFENesin E.R. 600 MG TAB PO SCH ×2 (08:47→20:39)
[2016-09-15] MEDS: PANTOPRAZOLE SODIUM 40 MG VIAL IV PUSH SCH ×2 (08:47→20:36)
[2016-09-15] MEDS: POTASSIUM PHOSPHATE INJ 30 MMOL in SODIUM CHLOR 0.9% 250 ML INJ 250 ML IV PRN (08:48)
[2016-09-15] MEDS: fentaNYL 2,500 MCG/NS 250 ML IV SCH (08:48)
[2016-09-15] MEDS: FLUCONAZOLE 400 MG PREMIX BAG 200 ML IV SCH (12:30)
--- NOTE | 2016-09-15 12:53 | HHI.PR ---
Subjective Subjective Notes Responds appropriately to yes and no questions Intubated/Sedated Objective Vitals/I&O Vital Signs Date Time Temp Pulse Resp B/P Pulse Ox O2 Delivery O2 Flow Rate FiO2 09/15/16 10:52 93 70 09/15/16 06:00 91 124/61 09/15/16 04:00 97.7 18 09/12/16 04:25 15.00 Labs Laboratory Tests Test 09/15/16 05:09 White Blood Count 21.4 Red Blood Count 4.53 Hemoglobin 13.0 Hematocrit 39.3 Mean Corpuscular Volume 86.8 Mean Corpuscular Hemoglobin 28.6 Mean Corpuscular Hemoglobin 33.0 Concent Red Cell Distribution Width 14.3 Platelet Count 235 Mean Platelet Volume 8.5 Neutrophils (%) (Auto) 84.4 Lymphocytes (%) (Auto) 6.0 Monocytes (%) (Auto) 9.3 Eosinophils (%) (Auto) 0.1 Basophils (%) (Auto) 0.2 Neutrophils # (Auto) 18.0 Lymphocytes # (Auto) 1.3 Monocytes # (Auto) 2.0 Eosinophils # (Auto) 0.0 Basophils # (Auto) 0.1 CBC Comment AUTO DIFF Differential Total Cells 100 Counted Neutrophils % (Manual) 82 Band Neutrophils % 2 Lymphocytes % 6 Monocytes % 9 Neutrophils # (Manual) 18.2 Myelocytes 1 Differential Comment FINAL DIFF MANUAL Platelet Estimate NORMAL Platelet Morphology Comment NORMAL Sodium Level 139 Potassium Level 3.3 Chloride Level 101 Carbon Dioxide Level 25.6 Anion Gap 12 Blood Urea Nitrogen 27 Creatinine 0.81 Estimat Glomerular Filtration 98 Rate Random Glucose 296 Lactic Acid Level 2.3 Calcium Level 6.8 Protein Corrected Calcium 7.9 Phosphorus Level 2.0 Total Protein 4.9 Date/Time Procedure Status Source Growth 09/11/16 10:55 Aerobic Blood Culture - Preliminary Resulted Blood Peripheral NO GROWTH IN 4 DAYS 09/11/16 10:55 Anaerobic Blood Culture - Preliminary Resulted Blood Peripheral NO GROWTH IN 4 DAYS 09/10/16 22:00 Urine Culture - Final Complete Urine Clean Catch NO GROWTH IN 48 HOURS. 09/10/16 22:00 Gram Stain - Final Complete Sputum Endotracheal 09/10/16 22:00 Sputum Culture - Final Complete Sputum Endotracheal HEAVY GROWTH NORMAL RESPIRATORY DEVYN 09/10/16 21:10 Aerobic Blood Culture - Final Complete Blood Peripheral NO GROWTH IN 5 DAYS 09/10/16 21:10 Anaerobic Blood Culture - Final Complete Blood Peripheral NO GROWTH IN 5 DAYS Radiology Last Impressions Chest X-Ray 09/12/16 0000 Signed Impressions: Service Date/Time: Monday, September 12, 2016 07:39 - CONCLUSION: Bibasilar airspace disease and bilateral pleural effusions larger on the right. Zechariah Sims MD Abdomen X-Ray 09/09/16 0600 Signed Impressions: Service Date/Time: August 04:54 - CONCLUSION: No significant interval change. Persistent upper mid abdomen small bowel dilatation and wall thickening. Filiberto Hall MD Abdomen/Pelvis CT 09/08/16 0000 Signed Impressions: Service Date/Time: Thursday, September 08, 2016 23:45 - CONCLUSION: 1. Marked inflammatory changes of left upper quadrant with severe mesenteric edema and adjacent short segment circumferential wall thickening of mid small bowel and adjacent distal transverse colon. Possible 4 cm abscess adjacent to the mid small bowel wall. Evaluation of intraluminal versus extraluminal fluid in this region is limited as intraluminal contrast is not present in this loop. A delayed scan may be beneficial for clarification. Differential diagnosis includes inflammatory bowel disease and infection. Moderate amount of free fluid similar to prior study. No evidence of free air. 2. Chronic pancreatitis. Filiberto Hall MD ADDENDUM: Delayed images show contrast filling the thickened loops of left upper quadrant small bowel. No evidence of abscess. Findings were discussed with Dr. Henriquez. Filiberto Hall MD Cardiovascular: Regular Lungs: Clear Abdomen: Other (midline incision with joseluis---c/d/i; Abd distended; tender to palpation; ROSHAN [address] with SS fluid ) Extremities: Other (generalized edema ) A/P Problem List: (1) Sepsis (2) COPD (chronic obstructive pulmonary disease) (3) Hypokalemia (4) Hyponatremia (5) Abdominal pain (6) Enteritis (7) Ileus (8) Leukocytosis (9) Diabetes (10) Systemic inflammatory response syndrome (SIRS) Assessment and Plan 61 year old male POD5 Exploratory Laparotomy, lysis of adhesions -Vent per CCM -Continue to wean pressor support -TPN -NGT to LIWS -Place LEFT chest tube to water seal -Patient remains critically ill -Discussed with Dr. Henriquez Attending Note - Dr. Henriquez Abdomen soft, distended, joseluis intact NG output minimal Start trickle feeds in AM if minimal residuals The exam, history, and the medical decision-making described in the above note were completed with the assistance of the mid-level provider. I reviewed and agree with the findings presented. I attest that I had a [id number] encounter with the patient on the same day, and personally performed and documented my assessment and findings in the medical record. Problem Qualifiers (1) Leukocytosis: Qualified Code: D72.829 - Leukocytosis, unspecified type Charisma Larson Sep 15, 2016 12:53 Bret Henriquez MD Sep 15, 2016 18:33
[2016-09-15] MEDS ORDERED: RESP: ALBUTEROL 2.5 MG/IPRATROPIUM 0.5 MG NEB (PRN) NEB (13:30)
[2016-09-15] MEDS: RESP: ALBUTEROL 2.5 MG/3 ML NEB (PRN) NEB (13:32)
--- NOTE | 2016-09-15 13:36 | HHI.CCPN ---
Subjective Remarks/Hospital Course This is a 61-year-old male with a past medical history of chronic pancreatitis, hypertension, type 2 diabetes who presented with abdominal pain that started Tuesday. Patient stated that abdominal pain is located in the left lower quadrant and it was very mild. He said over the weekend has worsened in intensity and is constant. Patient stated that he has some nausea that resolves or improves with food. Deny any emesis. Patient also complains of a chronic productive cough that has been the same. He denies any diarrhea or constipation and see that his stools are normal. Patient also denies any fever or chills. She was admitted to hospitalist service and was evaluated subsequently by GI, Dr. Pinto as well as Dr. Henriquez from general surgery in view of abnormal CT abdomen pelvis with left upper quadrant inflammatory change in these and treat with edema and KUBs raising question of SBO. She underwent E lap with lysis of lesions under general anesthesia by Dr. Henriquez on 09/10, EBL 100 cc, received 2 L crystalloid intraoperatively, postop diagnosis small bowel adhesions. Patient was kept intubated postoperatively and transferred to [facility]. I saw the patient shortly after his arrival to the ICU. He had just been started on Versed and fentanyl and dropped his blood pressure to the 60 systolic range. He was ordered a fluid bolus 2 L crystalloids stat and started on Levophed for hypotension. Stat cultures were sent. Patient also is having problem with his O2 sats were dropping in the 80s. Stat chest x-ray was ordered. While waiting for chest x-ray, ET tube instructor pilot balloon appeared damaged hence cuff was not holding air so patient was sedated with Etomidate/ Fentanyl/ Rocuronium and ET tube was changed over a tube exchanger which was confirmed with a postprocedure chest x-ray with satisfactory placement of ET tube, right IJ central line in place, bilateral interstitial infiltrates with hyperinflated lung rothman, no pneumothorax. Patient was requiring 2 mics of Levophed for pressor support. 09/11: Ongoing hypotension and difficulty with oxygenation. Persistent hypotension responsive to volume. CVP 20. Suspect chronic pulmonary hypertension with heavily preload-dependent cardiac output. Will start milrinone for RV support and add vasopressin to levophed prn. Sustained tachycardia prohibits continued escalation of levophed. Underlying lung function is marginal at best. 09/12 0740 hrs: Severe chronic lung disease without significant reserve appears to be the primary pathophysiology here. We were able to produce acceptable cardiac output yesterday with milrinone and vasopressin, minor amounts levophed for peripheral support. He has developed refractory hypoxemia overnight in the 60 - 70% range which is incompatible with survival. Cardiopulmonary dynamics have been maximized and are beginning to deteriorate. Will get another CXR and see if thoracentesis will help lung function. 09/12 1600 hours: Continued difficulty with oxygenation, sats in range 78 - 81% .Cardioverted pharmacologically back to NSR and Flotrac output 7.8. Abdominal pressure 18. At this point he has adequate blood flow and oxygen delivery capacity despite low PO2. We have tried various vent modes and PC/AC appears to work best. SVV is 10; altogether these observations recommend diuresis to help oxygenation. He has horrible diffuse emphysema and a moderate right pleural effusion - may be forced to place a chest tube to allow better lung expansion. 09/13: Improved oxygenation after aggressive diuresis. Renal function remains stable. Alert, responsive. 09.14: Continued good diuresis after lasix. A-aO2 gradient marginally improved. Remains alert. SUBJECTIVE: 09/15: Currently afebrile. Almost off norepinephrine drip. Awake and alert and follows commands. FiO2 70%. Objective Vital Signs Date Time Temp Pulse Resp B/P Pulse Ox O2 Delivery O2 Flow Rate FiO2 09/15/16 10:52 93 70 09/15/16 06:00 91 124/61 09/15/16 04:00 97.7 18 09/12/16 04:25 15.00 Intake and Output 09/14/16 09/14/16 09/15/16 08:00 16:00 00:00 Intake Total 1133 ml 1160 ml 606 ml Output Total 670 ml 1170 ml 960 ml Balance 463 ml -10 ml -354 ml Result Diagram: 09/15/16 0509 09/15/16 0509 Other Results Microbiology Date/Time Procedure Status Source Growth 09/11/16 10:55 Aerobic Blood Culture - Preliminary Resulted Blood Peripheral NO GROWTH IN 4 DAYS 09/11/16 10:55 Anaerobic Blood Culture - Preliminary Resulted Blood Peripheral NO GROWTH IN 4 DAYS 09/10/16 22:00 Urine Culture - Final Complete Urine Clean Catch NO GROWTH IN 48 HOURS. 09/10/16 22:00 Gram Stain - Final Complete Sputum Endotracheal 09/10/16 22:00 Sputum Culture - Final Complete Sputum Endotracheal HEAVY GROWTH NORMAL RESPIRATORY DEVYN 09/10/16 21:10 Aerobic Blood Culture - Final Complete Blood Peripheral NO GROWTH IN 5 DAYS 09/10/16 21:10 Anaerobic Blood Culture - Final Complete Blood Peripheral NO GROWTH IN 5 DAYS Imaging Last Impressions Chest X-Ray 09/14/16 1200 Signed Impressions: Service Date/Time: Wednesday, September 14, 2016 12:25 - CONCLUSION: 1. No pneumothorax. 2. Multiple tubes and lines are stable. 3. Scattered patchy infiltrates bilaterally. Jostin Crow MD Abdomen X-Ray 09/09/16 0600 Signed Impressions: Service Date/Time: August 04:54 - CONCLUSION: No significant interval change. Persistent upper mid abdomen small bowel dilatation and wall thickening. Filiberto Hall MD Abdomen/Pelvis CT 09/08/16 0000 Signed Impressions: Service Date/Time: Thursday, September 08, 2016 23:45 - CONCLUSION: 1. Marked inflammatory changes of left upper quadrant with severe mesenteric edema and adjacent short segment circumferential wall thickening of mid small bowel and adjacent distal transverse colon. Possible 4 cm abscess adjacent to the mid small bowel wall. Evaluation of intraluminal versus extraluminal fluid in this region is limited as intraluminal contrast is not present in this loop. A delayed scan may be beneficial for clarification. Differential diagnosis includes inflammatory bowel disease and infection. Moderate amount of free fluid similar to prior study. No evidence of free air. 2. Chronic pancreatitis. Filiberto Hall MD ADDENDUM: Delayed images show contrast filling the thickened loops of left upper quadrant small bowel. No evidence of abscess. Findings were discussed with Dr. Henriquez. Filiberto Hall MD Objective Remarks GENERAL: 61-year-old male, critically ill currently in bed appears stress SKIN: Warm and dry. No rash HEAD: Atraumatic. Normocephalic. EYES: Pupils equal and round about 3 mm bilaterally and reactive. No scleral icterus. No injection or drainage. ENT: No nasal bleeding or discharge. Mucous membranes pink and moist. NECK: Trachea midline. No JVD. Orotracheally intubated CARDIOVASCULAR: RRR. S1, S2. No S4. Without murmur. RESPIRATORY: Diminished breath sounds throughout. No rhonchi appreciated. No end expiratory wheeze. Bilateral chest tubes in place GASTROINTESTINAL: Abdomen tender palpation. Incisional sutures intact. No drainage. ROSHAN drain positive serosanguineous drainage is 390 MUSCULOSKELETAL: Extremities with trace peripheral edema. No obvious deformities. NEUROLOGICAL: Awake and alert. No obvious cranial nerve deficits. Motor grossly within normal limits. Five out of 5 muscle strength in the arms and legs. Normal speech. A/P Assessment and Plan Neuro/Psych: Currently on a fentanyl drip at 75 g an hour for analgesia while intubated Goal of RASS -2 Daily sedation vacation Appears comfortable on the ventilator CV: Large A-a gradient A. 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 Weaning off Currently on milrinone at 0.5 mg/kg/m due to high A-a gradient. Currently on amiodarone drip at 0.5 mg a minute Currently on Prinivil 10 mg by mouth daily for hypertension. Resp: Acute hypoxemic respiratory failure Severe COPD Pleural effusion status post bilateral chest tubes PC/AC 18/iP 18/iT 0.9/ Ventilator bundle Bronchodilator therapy every 4 hours with albuterol every 2 hours for breakthrough dyspnea [place] twice a day Followed by /pulmonology Clip left chest tube. Follow chest x-ray in a.m. Right chest tube- 70 cc SS Left chest tube - 150 cc SS GI: Postop day #7 exploratory lap lysis of adhesions - Dr. Henriquez Chronic pancreatitis Abdominal ascites Internal hemorrhoids Status post EGD by GI. - Pathology revealed chronic gastritis inflammation Says post colonoscopy by GI 09/06 -incomplete splenic flexure normal mucosa. Internal hemorrhoids. ROSHAN -390 Currently TPN at 30 cc an hour. Nutrition recommendations Protonix 40 mg IV twice a day 2 bowel movements yesterday : Tavarez has been placed for accurate I's and O's in a critically ill patient Endo: Diabetes mellitus Sliding-scale insulin with Accu-Cheks every 4 hours maintain euglycemia. We'll change her aggressive sliding scale with Accu-Cheks every 4 hours. Add Levemir 10 units twice a day Holding home medication glipizide 10 mg by mouth daily Renal: Accurate I's and O's Monitor urine output BMP currently within normal limits Heme: Leukocytosis Daily CBC/CMP. Remains elevated ID: Currently on Maxipime, Flagyl and Diflucan Infectious disease actively following Pertinent cultures 09/11 - blood culture - no growth 09/10 - blood culture 2 - no growth 09/10 - urine - no growth 09/02 - blood culture 2 - no growth FEN: Hypophosphatemia Hypokalemia Received 30 mmol K-Phos. Recheck in a.m. MSK: PT/OT evaluate and treat Access - Right IJ CVL placed 09/08 Prophylaxis - GI - Protonix IV twice a day - DVT - SCD/pharmacological prophylaxis when okayed by surgery Critical Care: The total critical care time was 35 minutes. Time to perform other separately billable procedures was not included in the critical care time. Wilder Humphrey MD Sep 15, 2016 13:36 Neuro: Sedation with propofol/fentanyl. Daily sedation vacation. Follow neuro status. Cardiovascular: Milrinone, vasopressin. Add digoxin for rate control. Levophed for pressor support as needed. Hold lisinopril. Pulmonary: Continue mechanical ventilation, vent bundle, bronchodilators. PC/AC mode. Being followed by pulmonary medicine Dr. Hill. GI/liver: Nothing by mouth for now. NG to suction. ID: On Levaquin/Flagyl/clindamycin IV. Increasing leukocytosis noted. Follow lactic acid levels in view of hypotension. Endocrine: SSI for glycemic control Renal/: Patient appears well hydrated Strict intake output, monitor and replete electrolytes, follow BUN/creatinine. Continue diuresis. Heme: Follow CBC Prophylaxis: PPI/SCDs. Nutrition: TPN? Overall impression: Critically ill with persistent large A-aO2 gradient. Wilder Humphrey MD Sep 15, 2016 13:36
--- NOTE | 2016-09-15 13:47 | HHI.IDPN ---
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 Cleared per Infection Control. Patient does not require isolation for hx of MRSA prior to 09/10/15. Objective . Vital Signs Date Time Temp Pulse Resp B/P Pulse Ox O2 Delivery O2 Flow Rate FiO2 09/15/16 13:33 92 70 09/15/16 12:00 91 09/15/16 12:00 98.0 91 18 146/68 92 09/15/16 12:00 70 09/15/16 10:52 93 70 09/15/16 10:00 92 09/15/16 08:00 70 09/15/16 08:00 97.7 96 18 143/71 93 09/15/16 08:00 96 09/15/16 07:31 94 70 09/15/16 06:00 91 124/61 09/15/16 06:00 91 09/15/16 04:07 93 70 09/15/16 04:00 70 09/15/16 04:00 97.7 94 18 119/61 92 09/15/16 04:00 93 09/15/16 01:03 93 70 09/15/16 00:00 75 09/15/16 00:00 97.9 98 18 110/58 92 09/15/16 00:00 94 09/14/16 22:00 94 70 09/14/16 22:00 97 09/14/16 20:00 97.9 98 18 101/56 98 09/14/16 20:00 98 09/14/16 20:00 75 09/14/16 19:42 93 75 09/14/16 18:00 101 09/14/16 18:00 102 117/61 09/14/16 16:00 75 09/14/16 16:00 98.0 103 20 119/74 92 09/14/16 16:00 103 09/14/16 15:18 92 75 09/14/16 14:00 103 09/14/16 09/14/16 09/15/16 15:00 23:00 07:00 Intake Total 1160 ml 606 ml 980 ml Output Total 1170 ml 960 ml 505 ml Balance -10 ml -354 ml 475 ml IV Total 1160 ml 564 ml 758 ml TPN/PPN 42 ml 222 ml Output Urine Total 1000 ml 600 ml 325 ml Gastric Drainage Total 0 ml 50 ml 50 ml Chest Tube Drainage Total 60 ml 130 ml 30 ml Drainage Total 110 ml 180 ml 100 ml # Bowel Movements 0 0 0 . Laboratory Tests Test 09/15/16 05:09 White Blood Count 21.4 TH/MM3 Red Blood Count 4.53 MIL/MM3 Hemoglobin 13.0 GM/DL Hematocrit 39.3 % Mean Corpuscular Volume 86.8 FL Mean Corpuscular Hemoglobin 28.6 PG Mean Corpuscular Hemoglobin 33.0 % Concent Red Cell Distribution Width 14.3 % Platelet Count 235 TH/MM3 Mean Platelet Volume 8.5 FL Neutrophils (%) (Auto) 84.4 % Lymphocytes (%) (Auto) 6.0 % Monocytes (%) (Auto) 9.3 % Eosinophils (%) (Auto) 0.1 % Basophils (%) (Auto) 0.2 % Neutrophils # (Auto) 18.0 TH/MM3 Lymphocytes # (Auto) 1.3 TH/MM3 Monocytes # (Auto) 2.0 TH/MM3 Eosinophils # (Auto) 0.0 TH/MM3 Basophils # (Auto) 0.1 TH/MM3 CBC Comment AUTO DIFF Differential Total Cells 100 Counted Neutrophils % (Manual) 82 % Band Neutrophils % 2 % Lymphocytes % 6 % Monocytes % 9 % Neutrophils # (Manual) 18.2 TH/MM3 Myelocytes 1 % Differential Comment FINAL DIFF MANUAL Platelet Estimate NORMAL Platelet Morphology Comment NORMAL Laboratory Tests Test 09/14/16 09/14/16 09/15/16 00:17 12:02 05:09 Sodium Level 139 MEQ/L 139 MEQ/L 139 MEQ/L Potassium Level 3.4 MEQ/L 3.7 MEQ/L 3.3 MEQ/L Chloride Level 100 MEQ/L 101 MEQ/L 101 MEQ/L Carbon Dioxide Level 28.0 MEQ/L 26.8 MEQ/L 25.6 MEQ/L Anion Gap 11 MEQ/L 11 MEQ/L 12 MEQ/L Blood Urea Nitrogen 21 MG/DL 24 MG/DL 27 MG/DL Creatinine 0.76 MG/DL 0.74 MG/DL 0.81 MG/DL Estimat Glomerular Filtration 105 ML/MIN 108 ML/MIN 98 ML/MIN Rate Random Glucose 204 MG/DL 192 MG/DL 296 MG/DL Lactic Acid Level 1.8 mmol/L 2.2 mmol/L 2.3 mmol/L Calcium Level 6.9 MG/DL 7.1 MG/DL 6.8 MG/DL Protein Corrected Calcium 7.9 MG/DL 8.1 MG/DL 7.9 MG/DL Phosphorus Level 2.1 MG/DL 2.0 MG/DL Total Protein 5.1 GM/DL 5.2 GM/DL 4.9 GM/DL Imaging Chest X-Ray 09/14/16 1200 Signed Impressions: Service Date/Time: Wednesday, September 14, 2016 12:25 - CONCLUSION: 1. No pneumothorax. 2. Multiple tubes and lines are stable. 3. Scattered patchy infiltrates bilaterally. Jostin Crow MD Chest X-Ray 09/12/16 0000 Signed Impressions: Service Date/Time: Monday, September 12, 2016 07:39 - CONCLUSION: Bibasilar airspace disease and bilateral pleural effusions larger on the right. Zechariah Sims MD Abdomen X-Ray 09/09/16 0600 Signed Impressions: Service Date/Time: August 04:54 - CONCLUSION: No significant interval change. Persistent upper mid abdomen small bowel dilatation and wall thickening. Filiberto Hall MD Abdomen/Pelvis CT 09/08/16 0000 Signed Impressions: Service Date/Time: Thursday, September 08, 2016 23:45 - CONCLUSION: 1. Marked inflammatory changes of left upper quadrant with severe mesenteric edema and adjacent short segment circumferential wall thickening of mid small bowel and adjacent distal transverse colon. Possible 4 cm abscess adjacent to the mid small bowel wall. Evaluation of intraluminal versus extraluminal fluid in this region is limited as intraluminal contrast is not present in this loop. A delayed scan may be beneficial for clarification. Differential diagnosis includes inflammatory bowel disease and infection. Moderate amount of free fluid similar to prior study. No evidence of free air. 2. Chronic pancreatitis. Filiberto Hall MD ADDENDUM: Delayed images show contrast filling the thickened loops of left upper quadrant small bowel. No evidence of abscess. Findings were discussed with Dr. Henriquez. Filiberto Hall MD Physical Exam GENERAL: awake, and responding, on the vent, in no apparent distress. SKIN: Cool and dry. No generalized rash HEAD: Atraumatic. Normocephalic. No temporal or scalp tenderness. EYES: Vass conjunctivae. Has scleral edema. No scleral icterus. No injection or drainage. ENT: Nose without bleeding, or purulent drainage. Endotracheal tube is in the mouth. NECK: Trachea midline. No JVD or lymphadenopathy. Supple, nontender, no meningeal signs. CARDIOVASCULAR: Regular rate and rhythm without murmurs, gallops, or rubs. RESPIRATORY: Coarse breath sounds bilaterally, decreased at the bases. GASTROINTESTINAL: Abdomen soft, no reaction to palpation, less distended. Midline incision, dry, no erythema. MUSCULOSKELETAL: Extremities without clubbing, or pedal edema. Both knees appear swollen NEUROLOGICAL: Responding PSYCH: Cooperative LINE: No evidence of infection : Tavarez in place, urine looks clear Assessment & Plan Remarks IMPRESSION Sepsis with shock, S/P exp lap with LUCY - ?shock due to other factors - C/S ok so far Respiratory failure, requiring a lot of O2, FiO2 at 100% - fluid, PNA, ARDS S/P exp lap, LUCY, for SBO Allergy to PCN, has tolerated Cephalosporins in the past RECOMMENDATION Follow C/S Follow CBC Continue Cefepime Continue Flagyl Continue Diflucan If stable, D/C Diflucan tomorrow Monitor progress D/W Tati Howard MD Sep 15, 2016 13:47
[2016-09-15] MEDS ORDERED: RESP: ALBUTEROL 2.5 MG/IPRATROPIUM 0.5 MG NEB (SCH) NEB (16:00)
[2016-09-15] MEDS: RESP: ALBUTEROL 2.5 MG/IPRATROPIUM 0.5 MG NEB (SCH) NEB ×2 (16:08→19:37)
[2016-09-15] MEDS: AMIODARONE INJ 450 MG in D5W (EXCEL BAG) 241 ML IV SCH ×3 (16:47)
[2016-09-15] MEDS ORDERED: GLUCAGON 1 MG/ML VIAL OTHER PRN (17:15)
--- NOTE | 2016-09-15 19:02 | HHI.PR ---
Subjective Remarks %, maintans sat61 YOWM with Pancreatitis,COPD,Nicotine use had Exp ap on Vent Fi02 75 % Sedated Fi02 weaned to 70%, maintains sat Tolerates PCV Awake follows commands Objective Vital Signs Vital Signs Date Time Temp Pulse Resp B/P Pulse Ox O2 Delivery O2 Flow Rate FiO2 09/15/16 18:00 86 09/15/16 16:33 91 80 09/15/16 16:00 97.5 88 18 106/57 93 09/15/16 16:00 70 09/15/16 16:00 88 09/15/16 14:00 91 09/15/16 13:33 92 70 09/15/16 12:00 91 09/15/16 12:00 98.0 91 18 146/68 92 09/15/16 12:00 70 09/15/16 10:52 93 70 09/15/16 10:00 92 09/15/16 08:00 70 09/15/16 08:00 97.7 96 18 143/71 93 09/15/16 08:00 96 09/15/16 07:31 94 70 09/15/16 06:00 91 124/61 09/15/16 06:00 91 09/15/16 04:07 93 70 09/15/16 04:00 70 09/15/16 04:00 97.7 94 18 119/61 92 09/15/16 04:00 93 09/15/16 01:03 93 70 09/15/16 00:00 75 09/15/16 00:00 97.9 98 18 110/58 92 09/15/16 00:00 94 09/14/16 22:00 94 70 09/14/16 22:00 97 09/14/16 20:00 97.9 98 18 101/56 98 09/14/16 20:00 98 09/14/16 20:00 75 09/14/16 19:42 93 75 I/O 09/14/16 09/14/16 09/14/16 09/15/16 09/15/16 09/15/16 07:00 15:00 23:00 07:00 15:00 23:00 Intake Total 1133 ml 1160 ml 606 ml 980 ml 1606 ml Output Total 670 ml 1170 ml 960 ml 505 ml 750 ml Balance 463 ml -10 ml -354 ml 475 ml 856 ml IV Total 1133 ml 1160 ml 564 ml 758 ml 1325 ml TPN/PPN 42 ml 222 ml 281 ml Output Urine Total 425 ml 1000 ml 600 ml 325 ml 450 ml Gastric Drainage Total 0 ml 0 ml 50 ml 50 ml 0 ml Chest Tube Drainage Total 120 ml 60 ml 130 ml 30 ml 30 ml Drainage Total 125 ml 110 ml 180 ml 100 ml 270 ml # Bowel Movements 0 0 0 0 0 Result Diagram: 09/15/169 09/15/16508 Objective Remarks GENERAL: MBMN WM , on Vent sedated SKIN: Warm and dry. HEAD: Normocephalic. EYES: No scleral icterus. No injection or drainage. NECK: Supple, trachea midline. No JVD or lymphadenopathy. CARDIOVASCULAR: Regular rate and rhythm without murmurs, gallops, or rubs. RESPIRATORY: Breath sounds equal bilaterally. No accessory muscle use. GASTROINTESTINAL: Abdomen soft, non-tender, MUSCULOSKELETAL: No cyanosis, or edema. BACK: Nontender without obvious deformity. No CVA tenderness. A/P Assessment and Plan Vent dependent RF Profound hypoxia Hypoxia Hypotension-resolved S/P Exp Lap COPD Nicotine use DM PLAN: Vent Support. Fi02 70%,PCV Broad spectrum Abx Aerosol nebs. If not weaned, will need trach DW Dr.Fabian Hill,Velasquez Luong MD Sep 15, 2016 19:02
[2016-09-15] MEDS: RESP: BUDESONIDE 0.5 MG/2 ML NEB NEB SCH (19:37)
[2016-09-15] MEDS: CLINIMIX E 5/25 1000 mL- </= 42 mls/hr IV-CENTRAL SCH ×3 (20:46)
[2016-09-15] MEDS: INSULIN DETEMIR 100 UNITS/ML VIAL SQ SCH (21:09)
[2016-09-15 21:29] LABS: POTASSIUM 3.7 MEQ/L (3.5-5.1)
[2016-09-15 22:22] LABS: BICARBONATE 26.5 MEQ/L (21.0-32.0); POTASSIUM 3.7 MEQ/L (3.5-5.1)
[2016-09-15 22:36] LABS: CALCIUM-PROTEIN CORRECTED 7.4 MG/DL (8.5-10.1)
[2016-09-16] VITALS (17 sets, daily range): BP systolic 90–153; BP diastolic 48–78; PULSE 77–90; RESP 18–20; TEMP 97.5–98.2; O2SAT 93–97
[2016-09-16] MEDS ORDERED: CALCIUM GLUCONATE INJ 2 GM in SODIUM CHLORIDE 0.9% INJ 100 ML IV ONE (00:45)
[2016-09-16] MEDS: SODIUM PHOSPHATE INJ 30 MMOL in SODIUM CHLOR 0.9% 250 ML INJ 240 ML IV PRN (00:53)
[2016-09-16] MEDS: MILRINONE INJ 20 MG in SODIUM CHLORIDE 0.9% INJ 80 ML IV SCH ×3 (03:19→22:11)
--- NOTE | 2016-09-16 03:19 | RADRPT ---
EXAM DATE/TIME: 09/16/2016 02:16 [facility] COMPARISON: No previous studies available for comparison. INDICATIONS : Shortness of breath. MEDICAL HISTORY : Hypertension. Hypercholesterolemia. Chronic obstructive pulmonary disease. SURGICAL HISTORY : Lumbar surgery. Gall stone removal. Splenic stent. ENCOUNTER: Subsequent ACUITY: 1 week PAIN SCORE: Non-responsive. LOCATION: Bilateral chest FINDINGS: There is been no significant interval change in appearance of the chest. Cardiomegaly, endotracheal t ube, right jugular line, enteric tube, small effusions and patchy air space disease again seen. Left sided chest tube noted. CONCLUSION: No significant change has occurred. John Payne MD on September 16, 2016 at 3:17 Board Certified Radiologist. This report was verified electronically.
[2016-09-16] MEDS: RESP: ALBUTEROL 2.5 MG/IPRATROPIUM 0.5 MG NEB (SCH) NEB ×4 (03:41→20:40)
[2016-09-16] MEDS: CEFEPIME INJ 2,000 MG in SODIUM CHLORIDE 0.9% INJ 100 ML IV SCH ×3 (03:47→21:18)
[2016-09-16] MEDS: INSULIN NovoLIN REGULAR SUPPLEMENTAL SCALE SQ SCH ×5 (04:00→20:00)
[2016-09-16 04:59] LABS: AUTOMATED NEUTROPHIL # 17.7 TH/MM3 (1.8-7.7); BASOPHIL # 0.1 TH/MM3 (0-0.2); BASOPHIL % 0.3 % (0.0-2.0); HEMATOCRIT 39.6 % (39.0-51.0); LYMPH % 6.8 % (9.0-44.0); LYMPHOCYTE # 1.5 TH/MM3 (1.0-4.8); MEAN CELL VOLUME 87.6 FL (80.0-100.0); MEAN CORPUSCULAR HEMOGLOBIN 28.5 PG (27.0-34.0); MEAN CORPUSCULAR HGB CONC 32.5 % (32.0-36.0); NEUT % 79.9 % (16.0-70.0); PLATELET COUNT 202 TH/MM3 (150-450); RED BLOOD COUNT 4.52 MIL/MM3 (4.50-5.90); RED CELL DISTRIBUTION WIDTH 14.4 % (11.6-17.2); WHITE BLOOD COUNT 22.2 TH/MM3 (4.0-11.0)
[2016-09-16 05:08] LABS: HEMO FLAGS AUTO DIFF
[2016-09-16] MEDS: HYDROCORTISONE SOD SUCCINATE 100 MG VIAL IV PUSH SCH ×3 (05:08→21:19)
[2016-09-16 05:41] LABS: ALKALINE PHOSPHATASE 47 U/L (45-117); ALT (GPT) 226 U/L (12-78); ANION GAP 9 MEQ/L (5-15); AST (GOT) 131 U/L (15-37); BLOOD UREA NITROGEN 28 MG/DL (7-18); CHLORIDE 104 MEQ/L (98-107); GLOMERULAR FILTRATION RATE 95 ML/MIN (>89); MAGNESIUM 1.8 MG/DL (1.5-2.5); POTASSIUM 3.5 MEQ/L (3.5-5.1); SODIUM (NA) 141 MEQ/L (136-145); TOTAL BILIRUBIN ADULT 0.5 MG/DL (0.2-1.0)
[2016-09-16] MEDS: metroNIDAZOLE 500 MG INJ 100 ML IV SCH ×3 (05:49→23:56)
[2016-09-16 06:55] LABS: BANDS 1 % (0-6); METAMYELOCYTES 1 % (0-1); MYELOCYTES 1 % (0-0); NEUTROPHIL # MANUAL DIFF 19.3 TH/MM3 (1.8-7.7); POLYS (SEG NEUTROPHILS) 84 % (16-70); WBC DIFF SAMPLE 100
[2016-09-16 06:57] LABS: PLATELET ESTIMATE SMEAR NORMAL (NORMAL); PLATELET MORPHOLOGY NORMAL (NORMAL); SCAN/DIFF FINAL DIFF MANUAL
[2016-09-16] MEDS: RESP: BUDESONIDE 0.5 MG/2 ML NEB NEB SCH ×2 (07:44→20:40)
[2016-09-16] MEDS: CHLORHEXIDINE 0.12% (ORAL KIT) 15 ML CUP MT SCH ×2 (08:00→21:17)
[2016-09-16] MEDS: SODIUM CHLORIDE 0.9% FLUSH 5 ML FLUSH FLUSH SCH ×2 (08:15→21:18)
[2016-09-16] MEDS: PANTOPRAZOLE SODIUM 40 MG VIAL IV PUSH SCH ×2 (08:15→21:19)
[2016-09-16] MEDS: FLUTICASONE PROPIONATE 50 MCG/ACT 16 GM NASAL SPRAY NASAL SCH ×2 (08:16→22:17)
[2016-09-16] MEDS: INSULIN DETEMIR 100 UNITS/ML VIAL SQ SCH (08:16)
[2016-09-16] MEDS: guaiFENesin E.R. 600 MG TAB PO SCH ×2 (08:16→21:19)
[2016-09-16] MEDS: LORATADINE 10 MG TAB PO SCH (08:16)
[2016-09-16] MEDS: LISINOPRIL 10 MG TAB PO SCH (08:16)
--- NOTE | 2016-09-16 09:14 | HHI.CCPN ---
Subjective Remarks/Hospital Course This is a 61-year-old male with a past medical history of chronic pancreatitis, hypertension, type 2 diabetes who presented with abdominal pain that started Tuesday. Patient stated that abdominal pain is located in the left lower quadrant and it was very mild. He said over the weekend has worsened in intensity and is constant. Patient stated that he has some nausea that resolves or improves with food. Deny any emesis. Patient also complains of a chronic productive cough that has been the same. He denies any diarrhea or constipation and see that his stools are normal. Patient also denies any fever or chills. She was admitted to hospitalist service and was evaluated subsequently by GI, Dr. Pinto as well as Dr. Henriquez from general surgery in view of abnormal CT abdomen pelvis with left upper quadrant inflammatory change in these and treat with edema and KUBs raising question of SBO. She underwent E lap with lysis of lesions under general anesthesia by Dr. Henriquez on 09/10, EBL 100 cc, received 2 L crystalloid intraoperatively, postop diagnosis small bowel adhesions. Patient was kept intubated postoperatively and transferred to [facility]. I saw the patient shortly after his arrival to the ICU. He had just been started on Versed and fentanyl and dropped his blood pressure to the 60 systolic range. He was ordered a fluid bolus 2 L crystalloids stat and started on Levophed for hypotension. Stat cultures were sent. Patient also is having problem with his O2 sats were dropping in the 80s. Stat chest x-ray was ordered. While waiting for chest x-ray, ET tube police pilot balloon appeared damaged hence cuff was not holding air so patient was sedated with Etomidate/ Fentanyl/ Rocuronium and ET tube was changed over a tube exchanger which was confirmed with a postprocedure chest x-ray with satisfactory placement of ET tube, right IJ central line in place, bilateral interstitial infiltrates with hyperinflated lung rothman, no pneumothorax. Patient was requiring 2 mics of Levophed for pressor support. 09/11: Ongoing hypotension and difficulty with oxygenation. Persistent hypotension responsive to volume. CVP 20. Suspect chronic pulmonary hypertension with heavily preload-dependent cardiac output. Will start milrinone for RV support and add vasopressin to levophed prn. Sustained tachycardia prohibits continued escalation of levophed. Underlying lung function is marginal at best. 09/12 0740 hrs: Severe chronic lung disease without significant reserve appears to be the primary pathophysiology here. We were able to produce acceptable cardiac output yesterday with milrinone and vasopressin, minor amounts levophed for peripheral support. He has developed refractory hypoxemia overnight in the 60 - 70% range which is incompatible with survival. Cardiopulmonary dynamics have been maximized and are beginning to deteriorate. Will get another CXR and see if thoracentesis will help lung function. 09/12 1600 hours: Continued difficulty with oxygenation, sats in range 78 - 81% .Cardioverted pharmacologically back to NSR and Flotrac output 7.8. Abdominal pressure 18. At this point he has adequate blood flow and oxygen delivery capacity despite low PO2. We have tried various vent modes and PC/AC appears to work best. SVV is 10; altogether these observations recommend diuresis to help oxygenation. He has horrible diffuse emphysema and a moderate right pleural effusion - may be forced to place a chest tube to allow better lung expansion. 09/13: Improved oxygenation after aggressive diuresis. Renal function remains stable. Alert, responsive. 09.14: Continued good diuresis after lasix. A-aO2 gradient marginally improved. Remains alert. 09/15: Currently afebrile. Almost off norepinephrine drip. Awake and alert and follows commands. FiO2 70%. SUBJECTIVE: 09/16: Complaining of air hunger on the ventilator. Currently afebrile. FiO2 back down at 70%. Inspiratory pressure decreased from 18 to 12. Objective Vital Signs Date Time Temp Pulse Resp B/P Pulse Ox O2 Delivery O2 Flow Rate FiO2 09/16/16 07:34 93 70 09/16/16 04:00 98.2 89 18 108/58 Intake and Output 09/15/16 09/15/16 09/16/16 08:00 16:00 00:00 Intake Total 980 ml 1606 ml 951 ml Output Total 505 ml 750 ml 440 ml Balance 475 ml 856 ml 511 ml Result Diagram: 09/16/16 0430 09/16/16 0430 Other Results Microbiology Date/Time Procedure Status Source Growth 09/11/16 10:55 Aerobic Blood Culture - Preliminary Resulted Blood Peripheral NO GROWTH IN 4 DAYS 09/11/16 10:55 Anaerobic Blood Culture - Preliminary Resulted Blood Peripheral NO GROWTH IN 4 DAYS Imaging Last Impressions Chest X-Ray 09/16/16 0600 Signed Impressions: Service Date/Time: August 02:16 - CONCLUSION: No significant change has occurred. John Payne MD Abdomen X-Ray 09/09/16 0600 Signed Impressions: Service Date/Time: August 04:54 - CONCLUSION: No significant interval change. Persistent upper mid abdomen small bowel dilatation and wall thickening. Filiberto Hall MD Abdomen/Pelvis CT 09/08/16 0000 Signed Impressions: Service Date/Time: Thursday, September 08, 2016 23:45 - CONCLUSION: 1. Marked inflammatory changes of left upper quadrant with severe mesenteric edema and adjacent short segment circumferential wall thickening of mid small bowel and adjacent distal transverse colon. Possible 4 cm abscess adjacent to the mid small bowel wall. Evaluation of intraluminal versus extraluminal fluid in this region is limited as intraluminal contrast is not present in this loop. A delayed scan may be beneficial for clarification. Differential diagnosis includes inflammatory bowel disease and infection. Moderate amount of free fluid similar to prior study. No evidence of free air. 2. Chronic pancreatitis. Filiberto Hall MD ADDENDUM: Delayed images show contrast filling the thickened loops of left upper quadrant small bowel. No evidence of abscess. Findings were discussed with Dr. Henriquez. Filiberto Hall MD Objective Remarks GENERAL: 61-year-old male, critically ill currently in bed appears to be in no acute stress SKIN: Warm and dry. No rash HEAD: Atraumatic. Normocephalic. EYES: Pupils equal and round about 3 mm bilaterally and reactive. No scleral icterus. No injection or drainage. ENT: No nasal bleeding or discharge. Mucous membranes pink and moist. NECK: Trachea midline. No JVD. Orotracheally intubated CARDIOVASCULAR: RRR. S1, S2. No S4. Without murmur. RESPIRATORY: Diminished breath sounds throughout. No rhonchi appreciated. No end expiratory wheeze. Bilateral chest tubes in place GASTROINTESTINAL: Abdomen tender palpation. Incisional sutures intact. No drainage. ROSHAN drain positive serosanguineous drainage is 390 MUSCULOSKELETAL: Extremities with trace peripheral edema. No obvious deformities. NEUROLOGICAL: Awake and alert. No obvious cranial nerve deficits. Motor grossly within normal limits. Five out of 5 muscle strength in the arms and legs. Normal speech. A/P Assessment and Plan Neuro/Psych: Currently on a fentanyl drip at 75 g an hour for analgesia while intubated Goal of RASS -2 Daily sedation vacation Appears comfortable on the ventilator Will add Precedex due to anxiety CV: Large A-a gradient A. fib with RVR - normal sinus rhythm Hypertension Dyslipidemia History of splenic artery stenting secondary to aneurysm Off all vasopressors Currently on milrinone at 0.5 mg/kg/m due to high A-a gradient. Will decrease to 0.25 today Currently on amiodarone drip at 0.5 mg a minute. Likely will discontinue today Currently on Prinivil 10 mg by mouth daily for hypertension with holding parameters for low blood pressure Resp: Acute hypoxemic respiratory failure Severe COPD Pleural effusion status post bilateral chest tubes PC/AC 18/iP 12/iT 0.9/ Ventilator bundle Bronchodilator therapy every 4 hours with albuterol every 2 hours for breakthrough dyspnea [place] twice a day Followed by /pulmonology Status post chest tube. Follow chest x-ray in a.m. Right chest tube- 150 cc SS to waterseal Left chest tube - 0 cc SS to waterseal Likely will pull chest tubes in a.m. 09/17 Likely will need tracheostomy. GI: Postop day #8 exploratory lap lysis of adhesions - Dr. Henriquez Chronic pancreatitis Abdominal ascites Internal hemorrhoids Elevated transaminases Status post EGD by GI. - Pathology revealed chronic gastritis inflammation Says post colonoscopy by GI 09/06 -incomplete splenic flexure normal mucosa. Internal hemorrhoids. ROSHAN -390 Currently TPN at 30 cc an hour. Nutrition recommendations recommend 65 cc an hour and lipids 20% at 10 cc an hour Trickle feeds to be initiated by surgery today Protonix 40 mg IV twice a day Recheck LFTs in a.m. We'll need to avoid hepatotoxic drugs including considering cessation of amiodarone drip today : Tavarez has been placed for accurate I's and O's in a critically ill patient Endo: Diabetes mellitus Sliding-scale insulin with Accu-Cheks every 4 hours maintain euglycemia. We'll change her aggressive sliding scale with Accu-Cheks every 4 hours. Increase Levemir 20 units twice a day Holding home medication glipizide 10 mg by mouth daily Renal: Accurate I's and O's Monitor urine output BMP currently within normal limits Heme: Leukocytosis Anemia Daily CBC/CMP. Remains elevated ID: Currently on Maxipime, Flagyl and Diflucan Infectious disease actively following. Possibly discontinue Diflucan today Pertinent cultures 09/11 - blood culture - no growth 09/10 - blood culture 2 - no growth 09/10 - urine - no growth 09/02 - blood culture 2 - no growth FEN: Hypophosphatemia Hypokalemia Received 30 mmol K-Phos. Recheck in a.m. MSK: PT/OT evaluate and treat Access - Right IJ CVL placed 09/08. Possibly we'll switch Prophylaxis - GI - Protonix IV twice a day - DVT - SCD/pharmacological prophylaxis when okayed by surgery Critical Care: The total critical care time was 35 minutes. Time to perform other separately billable procedures was not included in the critical care time. Wilder Humphrey MD Sep 16, 2016 09:14
[2016-09-16] MEDS ORDERED: POTASSIUM CHLOR 20 MEQ PREMIX 100 ML IV ONE (09:15)
[2016-09-16] MEDS: DEXMEDETOMIDINE INJ 50 ML IV SCH ×2 (12:27→14:03)
[2016-09-16] MEDS: FLUCONAZOLE 400 MG PREMIX BAG 200 ML IV SCH (12:27)
[2016-09-16] MEDS: MAGNESIUM SULFATE 1 GM PREMIX 100 ML IV SCH ×2 (12:27→12:28)
[2016-09-16] MEDS ORDERED: MIDAZOLAM HCL 5 MG/5 ML VIAL IV PUSH ONE (13:45)
[2016-09-16] MEDS ORDERED: TERBUTALINE INJ 1 MG/ML AMP SQ PRN (13:45)
--- NOTE | 2016-09-16 15:05 | PD.PROCEDR ---
Central Line Procedure REASON FOR PROCEDURE Central venous access PROCEDURE PERFORMED Central line placement: Left IJ CVL CONSENT Informed consent for procedure was obtained. The risks and benefits of the procedure were discussed to include but limited to bleeding, clot formation, infection, and even . ANESTHESIA Local injection of 1% Lidocaine DESCRIPTION OF THE PROCEDURE The patient was placed in supine, mild Trendelenburg position. The area was exposed and cleansed with ChloraPrep, times two. Large sterile drape was used to cover the patient, with the site exposed, under sterile conditions including cap, face mask, sterile gown, and sterile gloves. On single attempt, the introducer needle was inserted with negative pressure in syringe and venous flash was obtained. The guide wire was then advanced without any restriction and the needle was removed. The dilator was used without any complications. Using Seldinger technique the triple-lumen catheter was advanced over the guide wire to a depth of 20 centimeters. The guide wire was removed. All ports were aspirated with dark venous blood return and flushed easily with sterile saline. All ports were capped. Antibiotic disc was placed around central line at puncture site. The central line was secured to the skin with two interrupted 2.0 silk sutures. The area was bandaged with sterile see-through central line bandage. RADIOLOGICAL DATA Ultrasound guidance was used to locate the internal jugular vein. Doppler/ color flow was used to confirm venous flow. COMPLICATIONS: No apparent complications ESTIMATED BLOOD LOSS: Less than 1 cc. Wilder Humphrey MD Sep 16, 2016 15:05
[2016-09-16] MEDS ORDERED: SODIUM CHLORIDE 0.9% FLUSH 10 ML FLUSH IVF PRN (15:15)
[2016-09-16] MEDS: NOREPINEPHRINE-DEXTROSE DRIP 250 ML IV SCH (15:28)
--- NOTE | 2016-09-16 15:50 | RADRPT ---
EXAM DATE/TIME: 09/16/2016 15:12 [facility] COMPARISON: CHEST SINGLE AP, September 16, 2016, 2:16. INDICATIONS : Post Central line. MEDICAL HISTORY : Hypertension. Chronic obstructive pulmonary disease. Gastroesophageal SURGICAL HISTORY : None. ENCOUNTER: Subsequent ACUITY: 1 week PAIN SCORE: Non-responsive. LOCATION: Bilateral chest FINDINGS: The left neck central line is present ascending to the SVC. There is no evidence of pneumothorax or o ther complication of placement. A right neck central line remains in place. Endotracheal tube is pres ent with tip 7 cm above the regine. Nasogastric tube descends into the stomach. Bilateral thoracostom y tubes remain in place. Hazy bilateral predominantly basilar pleural-parenchymal opacities persist, not significantly changed. Cardiac contours are stable. Right apical pleural-parenchymal density is u nchanged. CONCLUSION: Central line placement without pneumothorax. Gumaro Correa MD on September 16, 2016 at 15:46 Board Certified Radiologist. This report was verified electronically.
--- NOTE | 2016-09-16 16:32 | HHI.PR ---
Subjective Subjective Notes Intubated/Sedated Continues to require high vent settings Objective Vitals/I&O Vital Signs Date Time Temp Pulse Resp B/P Pulse Ox O2 Delivery O2 Flow Rate FiO2 09/16/16 15:50 93 70 09/16/16 14:45 18 09/16/16 14:00 77 09/16/16 12:00 98.0 119/61 Labs Laboratory Tests Test 09/15/16 09/16/16 21:00 04:30 Sodium Level 139 141 Potassium Level 3.7 3.5 Chloride Level 101 104 Carbon Dioxide Level 26.5 28.0 Anion Gap 12 9 Blood Urea Nitrogen 30 28 Creatinine 0.85 0.83 Estimat Glomerular Filtration 92 95 Rate Random Glucose 369 293 Calcium Level 6.3 7.6 Protein Corrected Calcium 7.4 Phosphorus Level 2.3 2.8 Total Protein 4.8 5.0 White Blood Count 22.2 Red Blood Count 4.52 Hemoglobin 12.9 Hematocrit 39.6 Mean Corpuscular Volume 87.6 Mean Corpuscular Hemoglobin 28.5 Mean Corpuscular Hemoglobin 32.5 Concent Red Cell Distribution Width 14.4 Platelet Count 202 Mean Platelet Volume 9.0 Neutrophils (%) (Auto) 79.9 Lymphocytes (%) (Auto) 6.8 Monocytes (%) (Auto) 13.0 Eosinophils (%) (Auto) 0.0 Basophils (%) (Auto) 0.3 Neutrophils # (Auto) 17.7 Lymphocytes # (Auto) 1.5 Monocytes # (Auto) 2.9 Eosinophils # (Auto) 0.0 Basophils # (Auto) 0.1 CBC Comment AUTO DIFF Differential Total Cells 100 Counted Neutrophils % (Manual) 84 Band Neutrophils % 1 Lymphocytes % 8 Monocytes % 5 Neutrophils # (Manual) 19.3 Metamyelocytes 1 Myelocytes 1 Differential Comment FINAL DIFF MANUAL Platelet Estimate NORMAL Platelet Morphology Comment NORMAL Red Cell Morphology Comment NORMAL Magnesium Level 1.8 Total Bilirubin 0.5 Aspartate Amino Transf 131 (AST/SGOT) Alanine Aminotransferase 226 (ALT/SGPT) Alkaline Phosphatase 47 Albumin 1.8 Radiology Last Impressions Chest X-Ray 09/12/16 0000 Signed Impressions: Service Date/Time: Monday, September 12, 2016 07:39 - CONCLUSION: Bibasilar airspace disease and bilateral pleural effusions larger on the right. Zechariah Sims MD Abdomen X-Ray 09/09/16 0600 Signed Impressions: Service Date/Time: August 04:54 - CONCLUSION: No significant interval change. Persistent upper mid abdomen small bowel dilatation and wall thickening. Filiberto Hall MD Abdomen/Pelvis CT 09/08/16 0000 Signed Impressions: Service Date/Time: Thursday, September 08, 2016 23:45 - CONCLUSION: 1. Marked inflammatory changes of left upper quadrant with severe mesenteric edema and adjacent short segment circumferential wall thickening of mid small bowel and adjacent distal transverse colon. Possible 4 cm abscess adjacent to the mid small bowel wall. Evaluation of intraluminal versus extraluminal fluid in this region is limited as intraluminal contrast is not present in this loop. A delayed scan may be beneficial for clarification. Differential diagnosis includes inflammatory bowel disease and infection. Moderate amount of free fluid similar to prior study. No evidence of free air. 2. Chronic pancreatitis. Filiberto Hall MD ADDENDUM: Delayed images show contrast filling the thickened loops of left upper quadrant small bowel. No evidence of abscess. Findings were discussed with Dr. Henriquez. Filiberto Hall MD Cardiovascular: Regular Lungs: Clear Abdomen: Other (midline incision with minimal drainage; ROSHAN x1 in place with SS fluid) Extremities: Other (generalized edema) Narrative Exam Bilateral chest tubes to water seal A/P Problem List: (1) Sepsis (2) COPD (chronic obstructive pulmonary disease) (3) Hypokalemia (4) Hyponatremia (5) Abdominal pain (6) Enteritis (7) Ileus (8) Leukocytosis (9) Diabetes (10) Systemic inflammatory response syndrome (SIRS) Assessment and Plan 61 year old male POD6 Exploratory Laparotomy, lysis of adhesions -Vent per [facility] -TPN -Start trickle feeds -Place bilateral chest tube to water seal -Patient remains critically ill -Discussed with Dr. Henriquez -Discussed with Dr. Humphrey Attending Note - Dr. Henriquez Abdomen soft; joseluis intact Still on 70% FIO2 Possible trach next week if he fails to wean The exam, history, and the medical decision-making described in the above note were completed with the assistance of the mid-level provider. I reviewed and agree with the findings presented. I attest that I had a [id number] encounter with the patient on the same day, and personally performed and documented my assessment and findings in the medical record. Problem Qualifiers (1) Leukocytosis: Qualified Code: D72.829 - Leukocytosis, unspecified type Charisma Larson Sep 16, 2016 16:32 Bret Henriquez MD Sep 17, 2016 10:15
--- NOTE | 2016-09-16 18:55 | HHI.PR ---
Subjective Remarks %, maintans sat61 YOWM with Pancreatitis,COPD,Nicotine use had Exp Lap on Vent Fi02 70 % Sedated Fi02 weaned to 70%, maintains sat Tolerates PCV Awake follows commands Objective Vital Signs Vital Signs Date Time Temp Pulse Resp B/P Pulse Ox O2 Delivery O2 Flow Rate FiO2 09/16/16 18:00 82 09/16/16 16:00 97.7 83 18 90/48 95 09/16/16 16:00 70 09/16/16 16:00 83 09/16/16 15:50 93 70 09/16/16 14:45 18 09/16/16 14:00 77 09/16/16 12:00 70 09/16/16 12:00 85 09/16/16 12:00 98.0 85 20 119/61 94 09/16/16 11:19 93 70 09/16/16 10:00 84 09/16/16 08:00 70 09/16/16 08:00 97.8 86 19 99/49 97 09/16/16 08:00 86 09/16/16 07:34 93 70 09/16/16 04:08 95 80 09/16/16 04:00 98.2 89 18 108/58 93 09/16/16 04:00 80 09/16/16 01:07 95 80 09/16/16 00:00 97.5 86 18 106/53 94 09/16/16 00:00 80 09/15/16 22:35 95 80 09/15/16 20:00 80 09/15/16 20:00 97.7 86 18 100/50 94 09/15/16 19:36 93 80 I/O 09/15/16 09/15/16 09/15/16 09/16/16 09/16/16 09/16/16 07:00 15:00 23:00 07:00 15:00 23:00 Intake Total 980 ml 1606 ml 951 ml 1209 ml 1456 ml Output Total 505 ml 750 ml 440 ml 600 ml 700 ml Balance 475 ml 856 ml 511 ml 609 ml 756 ml IV Total 758 ml 1325 ml 749 ml 972 ml 1164 ml TPN/PPN 222 ml 281 ml 202 ml 237 ml 292 ml Output Urine Total 325 ml 450 ml 300 ml 350 ml 450 ml Gastric Drainage Total 50 ml 0 ml 0 ml Chest Tube Drainage Total 30 ml 30 ml 20 ml 100 ml 90 ml Drainage Total 100 ml 270 ml 120 ml 150 ml 160 ml # Bowel Movements 0 0 0 Result Diagram: 09/16/1642909/16/16429 Objective Remarks GENERAL: MBMN WM , on Vent sedated SKIN: Warm and dry. HEAD: Normocephalic. EYES: No scleral icterus. No injection or drainage. NECK: Supple, trachea midline. No JVD or lymphadenopathy. CARDIOVASCULAR: Regular rate and rhythm without murmurs, gallops, or rubs. RESPIRATORY: Breath sounds equal bilaterally. No accessory muscle use. GASTROINTESTINAL: Abdomen soft, non-tender, MUSCULOSKELETAL: No cyanosis, or edema. BACK: Nontender without obvious deformity. No CVA tenderness. A/P Assessment and Plan Vent dependent RF Profound hypoxia Hypoxia Hypotension-resolved S/P Exp Lap COPD Nicotine use DM PLAN: Vent Support. Fi02 70%,PCV Broad spectrum Abx Aerosol nebs. If not weaned, will need trach Velasquez Hill MD Sep 16, 2016 18:55
--- NOTE | 2016-09-16 19:00 | EC ---
Study Study Date:09/16/2016 STUDY CONCLUSIONS SUMMARY - Procedure narrative: Transthoracic echocardiography. Image quality was poor. The study was technically limited due to poor acoustic window availability. - Left ventricle: The cavity size was normal. Systolic function was probably normal. The estimated ejection fraction was in the range of 55% to 60%. The study is not technically sufficient to allow evaluation of LV diastolic function. If LV function is below 40, please consider prescribing an ACEI or ARB or document rationale for non-use. PROCEDURE DATA STUDY STATUS: Elective. Procedure: Transthoracic echocardiography. Image quality was poor. The study was technically limited due to poor acoustic window availability. Scanning was performed from the parasternal and apical acoustic windows. Study completion: The patient tolerated the procedure well. Transthoracic echocardiography. M-mode, complete 2D, complete spectral Doppler, and color Doppler. Height: Height: 72in. Weight: Weight: 237.5lb. Body mass index: BMI: 32.3kg/m^2. Body surface area: BSA: 2.29m^2. Patient status: Inpatient. CARDIAC ANATOMY LEFT VENTRICLE: The cavity size was normal. Systolic function was probably normal. The estimated ejection fraction was in the range of 55% to 60%. Images were inadequate for LV wall motion assessment. The study is not technically sufficient to allow evaluation of LV diastolic function. AORTIC VALVE: Poorly visualized. Doppler: There was no stenosis. No significant regurgitation. MITRAL VALVE: The valve appears to be grossly normal. Doppler: There was no evidence for stenosis. No significant regurgitation. Valve area by pressure half-time: 4.4cm^2. Indexed valve area by pressure half-time: 1.92cm^2/m^2. LEFT ATRIUM: Poorly visualized. RIGHT VENTRICLE: Poorly visualized. PULMONIC VALVE: Poorly visualized. Doppler: There was no evidence for stenosis. No significant regurgitation. TRICUSPID VALVE: The valve appears to be grossly normal. Doppler: There was no evidence for stenosis. Trace to mild regurgitation. Patient weight: 237.5lb _Ejection fraction:_ 65-75% _Fractional shortening:_ 32% up to 5Kg 5-11.5Kg 11.6-22.9Kg 23-45Kg 45-57Kg Aortic Root 7-13 <17 13-22 17-27 17-27 LA diam 6-13 <23 24-38 33-47 37-40 RVID 10-17 7-15 7-15 7-18 8-17 LVIDd 12-22 <32 24-38 33-47 37-40 LVPW 2-4 3-6 5-7 6-8 7-8 IVS 2-4 3-6 5-7 6-8 7-8 BASIC MEASUREMENTS ADULT NORMAL Left ventricle LV internal dimension, ED, chordal *36.4 mm 43-52 level, PLAX LV internal dimension, ES, chordal 23.8 mm 23-38 level, PLAX Fractional shortening, chordal level, 35 % >29 PLAX LV posterior wall thickness, ED 11.5 mm IVS/LVPW ratio, ED 1.03 <1.3 Ventricular septum Septal thickness, ED 11.9 mm Aortic valve Leaflet separation 18 mm 15-26 BASIC MEASUREMENTS ADULT NORMAL Aortic valve Leaflet separation 18 mm 15-26 Aorta Root diameter, ED *39 mm 20-37 DOPPLER MEASUREMENTS ADULT NORMAL Main pulmonary artery Pressure, S 29 mm Hg =30 Aortic valve Peak velocity, S 88.2 cm/s Mitral valve Peak E-wave velocity 62.7 cm/s Peak A-wave velocity 87.4 cm/s Pressure half-time 50 ms Peak E/A ratio 0.7 Valve area, pressure half-time 4.4 cm^2 Valve area index, pressure half-time 1.92 cm^2/m^2 Tricuspid valve Regurgitant peak velocity 231 cm/s Peak RV-RA gradient, S 21 mm Hg Maximal regurgitant velocity 231 cm/s Systemic veins Estimated CVP 10 mm Hg Right ventricle RV pressure, S *31 mm Hg <30 Pulmonic valve Peak velocity, S 71.9 cm/s LEGEND: Mean values are shown as u=mean value. Asterisk (*) bailon values outside specified normal range. Prepared and signed by Ky Vincent [id number]
[2016-09-16] MEDS ORDERED: INSULIN DETEMIR 100 UNITS/ML VIAL SQ SCH (21:00)
[2016-09-16] MEDS: CLINIMIX E 5/25 2000 mL- >42 mls/hr IV-CENTRAL SCH ×3 (21:17)
[2016-09-16] MEDS: FAT EMULSION 20% INJ 250 ML (@10 mls/hr) IV-CENTRAL SCH (21:17)
[2016-09-17] VITALS (19 sets, daily range): BP systolic 106–131; BP diastolic 57–100; PULSE 88–103; RESP 18–21; TEMP 98.2–98.5; O2SAT 92–97
[2016-09-17] MEDS: INSULIN NovoLIN REGULAR SUPPLEMENTAL SCALE SQ SCH ×6 (00:29→20:38)
[2016-09-17] MEDS: DEXMEDETOMIDINE INJ 50 ML IV SCH ×2 (02:12→05:40)
[2016-09-17] MEDS: RESP: ALBUTEROL 2.5 MG/IPRATROPIUM 0.5 MG NEB (SCH) NEB ×4 (04:03→20:26)
[2016-09-17 04:23] LABS: AUTOMATED NEUTROPHIL # 21.9 TH/MM3 (1.8-7.7); BASOPHIL # 0.1 TH/MM3 (0-0.2); BASOPHIL % 0.5 % (0.0-2.0); EOSINOPHIL % 0.1 % (0.0-4.0); LYMPH % 8.3 % (9.0-44.0); LYMPHOCYTE # 2.2 TH/MM3 (1.0-4.8); MEAN CELL VOLUME 86.8 FL (80.0-100.0); MEAN CORPUSCULAR HEMOGLOBIN 28.6 PG (27.0-34.0); MEAN CORPUSCULAR HGB CONC 32.9 % (32.0-36.0); MONO % 10.1 % (0.0-8.0); PLATELET COUNT 163 TH/MM3 (150-450); RED BLOOD COUNT 4.49 MIL/MM3 (4.50-5.90); RED CELL DISTRIBUTION WIDTH 14.5 % (11.6-17.2)
[2016-09-17 04:26] LABS: HEMO FLAGS AUTO DIFF
[2016-09-17 04:52] LABS: BICARBONATE 28.3 MEQ/L (21.0-32.0); CALCIUM-PROTEIN CORRECTED 8.5 MG/DL (8.5-10.1); TOTAL BILIRUBIN ADULT 0.6 MG/DL (0.2-1.0)
[2016-09-17] MEDS: HYDROCORTISONE SOD SUCCINATE 100 MG VIAL IV PUSH SCH ×3 (05:40→22:20)
[2016-09-17] MEDS: CEFEPIME INJ 2,000 MG in SODIUM CHLORIDE 0.9% INJ 100 ML IV SCH ×3 (05:40→20:36)
--- NOTE | 2016-09-17 06:38 | RADRPT ---
EXAM DATE/TIME: 09/17/2016 05:37 [facility] COMPARISON: CHEST SINGLE AP, September 16, 2016, 15:12. INDICATIONS : Shortness of breath. MEDICAL HISTORY : Hypertension. Chronic obstructive pulmonary disease. SURGICAL HISTORY : None. ENCOUNTER: Subsequent ACUITY: 2 weeks PAIN SCORE: Non-responsive. LOCATION: Bilateral chest FINDINGS: 2 portable frontal views of the chest show an endotracheal tube with the tip 5 cm proximal to regine. Left-sided central line. Nasogastric tube tip in the region of the fundus of the stomach. Left and r ight thoracostomy tubes. No pneumothoraces. Bibasilar parenchymal consolidations are unchanged. CONCLUSION: 1. No pneumothoraces. 2. Unchanged bibasilar consolidation. Anibal Malhotra Jr., MD on September 17, 2016 at 6:36 Board Certified Radiologist. This report was verified electronically.
[2016-09-17] MEDS: NOREPINEPHRINE-DEXTROSE DRIP 250 ML IV SCH (06:50)
[2016-09-17] MEDS: metroNIDAZOLE 500 MG INJ 100 ML IV SCH ×2 (07:00→13:56)
[2016-09-17 07:06] LABS: BANDS 2 % (0-6); METAMYELOCYTES 1 % (0-1); NEUTROPHIL # MANUAL DIFF 22.4 TH/MM3 (1.8-7.7); POLYS (SEG NEUTROPHILS) 80 % (16-70); WBC DIFF SAMPLE 100
[2016-09-17 07:07] LABS: PLATELET ESTIMATE SMEAR NORMAL (NORMAL); PLATELET MORPHOLOGY NORMAL (NORMAL); SCAN/DIFF FINAL DIFF MANUAL
[2016-09-17] MEDS: RESP: BUDESONIDE 0.5 MG/2 ML NEB NEB SCH ×2 (07:46→20:25)
[2016-09-17] MEDS: CHLORHEXIDINE 0.12% (ORAL KIT) 15 ML CUP MT SCH ×2 (08:00→20:37)
[2016-09-17] MEDS: FLUTICASONE PROPIONATE 50 MCG/ACT 16 GM NASAL SPRAY NASAL SCH ×2 (09:00→20:38)
[2016-09-17] MEDS: LISINOPRIL 10 MG TAB PO SCH (09:00)
[2016-09-17] MEDS: SODIUM CHLORIDE 0.9% FLUSH 10 ML FLUSH IVF SCH (09:00)
[2016-09-17] MEDS: guaiFENesin E.R. 600 MG TAB PO SCH ×2 (09:00→20:23)
--- NOTE | 2016-09-17 09:18 | HHI.CCPN ---
Subjective Remarks/Hospital Course This is a 61-year-old male with a past medical history of chronic pancreatitis, hypertension, type 2 diabetes who presented with abdominal pain that started Tuesday. Patient stated that abdominal pain is located in the left lower quadrant and it was very mild. He said over the weekend has worsened in intensity and is constant. Patient stated that he has some nausea that resolves or improves with food. Deny any emesis. Patient also complains of a chronic productive cough that has been the same. He denies any diarrhea or constipation and see that his stools are normal. Patient also denies any fever or chills. She was admitted to hospitalist service and was evaluated subsequently by GI, Dr. Pinto as well as Dr. Henriquez from general surgery in view of abnormal CT abdomen pelvis with left upper quadrant inflammatory change in these and treat with edema and KUBs raising question of SBO. She underwent E lap with lysis of lesions under general anesthesia by Dr. Henriquez on 09/10, EBL 100 cc, received 2 L crystalloid intraoperatively, postop diagnosis small bowel adhesions. Patient was kept intubated postoperatively and transferred to [facility]. I saw the patient shortly after his arrival to the ICU. He had just been started on Versed and fentanyl and dropped his blood pressure to the 60 systolic range. He was ordered a fluid bolus 2 L crystalloids stat and started on Levophed for hypotension. Stat cultures were sent. Patient also is having problem with his O2 sats were dropping in the 80s. Stat chest x-ray was ordered. While waiting for chest x-ray, ET tube manager heavy equipment balloon appeared damaged hence cuff was not holding air so patient was sedated with Etomidate/ Fentanyl/ Rocuronium and ET tube was changed over a tube exchanger which was confirmed with a postprocedure chest x-ray with satisfactory placement of ET tube, right IJ central line in place, bilateral interstitial infiltrates with hyperinflated lung rothman, no pneumothorax. Patient was requiring 2 mics of Levophed for pressor support. 09/11: Ongoing hypotension and difficulty with oxygenation. Persistent hypotension responsive to volume. CVP 20. Suspect chronic pulmonary hypertension with heavily preload-dependent cardiac output. Will start milrinone for RV support and add vasopressin to levophed prn. Sustained tachycardia prohibits continued escalation of levophed. Underlying lung function is marginal at best. 09/12 0740 hrs: Severe chronic lung disease without significant reserve appears to be the primary pathophysiology here. We were able to produce acceptable cardiac output yesterday with milrinone and vasopressin, minor amounts levophed for peripheral support. He has developed refractory hypoxemia overnight in the 60 - 70% range which is incompatible with survival. Cardiopulmonary dynamics have been maximized and are beginning to deteriorate. Will get another CXR and see if thoracentesis will help lung function. 09/12 1600 hours: Continued difficulty with oxygenation, sats in range 78 - 81% .Cardioverted pharmacologically back to NSR and Flotrac output 7.8. Abdominal pressure 18. At this point he has adequate blood flow and oxygen delivery capacity despite low PO2. We have tried various vent modes and PC/AC appears to work best. SVV is 10; altogether these observations recommend diuresis to help oxygenation. He has horrible diffuse emphysema and a moderate right pleural effusion - may be forced to place a chest tube to allow better lung expansion. 09/13: Improved oxygenation after aggressive diuresis. Renal function remains stable. Alert, responsive. 09.14: Continued good diuresis after lasix. A-aO2 gradient marginally improved. Remains alert. 09/15: Currently afebrile. Almost off norepinephrine drip. Awake and alert and follows commands. FiO2 70%. 09/16: Complaining of air hunger on the ventilator. Currently afebrile. FiO2 back down at 70%. Inspiratory pressure decreased from 18 to 12. SUBJECTIVE: 09/17: Awake and alert. Central line was changed to the left side. Afebrile. FiO2 down to 60%. On 2 g per min of norepinephrine. Objective Vital Signs Date Time Temp Pulse Resp B/P Pulse Ox O2 Delivery O2 Flow Rate FiO2 09/17/16 08:00 91 09/17/16 08:00 98.5 19 117/69 97 09/17/16 08:00 60 09/17/16 07:50 Ventilator Intake and Output 09/16/16 09/16/16 09/16/16 07:59 15:59 23:59 Intake Total 1209 ml 1456 ml 665 ml Output Total 600 ml 700 ml 450 ml Balance 609 ml 756 ml 215 ml Result Diagram: 09/17/1640409/17/16 040 Imaging Last Impressions Chest X-Ray 09/17/16 0600 Signed Impressions: Service Date/Time: Saturday, September 17, 2016 05:37 - CONCLUSION: 1. No pneumothoraces. 2. Unchanged bibasilar consolidation. Anibal Malhotra Jr., MD Abdomen X-Ray 09/09/16 0600 Signed Impressions: Service Date/Time: August 04:54 - CONCLUSION: No significant interval change. Persistent upper mid abdomen small bowel dilatation and wall thickening. Filiberto Hall MD Abdomen/Pelvis CT 09/08/16 0000 Signed Impressions: Service Date/Time: Thursday, September 08, 2016 23:45 - CONCLUSION: 1. Marked inflammatory changes of left upper quadrant with severe mesenteric edema and adjacent short segment circumferential wall thickening of mid small bowel and adjacent distal transverse colon. Possible 4 cm abscess adjacent to the mid small bowel wall. Evaluation of intraluminal versus extraluminal fluid in this region is limited as intraluminal contrast is not present in this loop. A delayed scan may be beneficial for clarification. Differential diagnosis includes inflammatory bowel disease and infection. Moderate amount of free fluid similar to prior study. No evidence of free air. 2. Chronic pancreatitis. Filiberto Hall MD ADDENDUM: Delayed images show contrast filling the thickened loops of left upper quadrant small bowel. No evidence of abscess. Findings were discussed with Dr. Henriquez. Filiberto Hall MD Objective Remarks GENERAL: 61-year-old male, critically ill currently in bed appears to be in no acute stress SKIN: Warm and dry. No rash HEAD: Atraumatic. Normocephalic. EYES: Pupils equal and round about 3 mm bilaterally and reactive. No scleral icterus. No injection or drainage. ENT: No nasal bleeding or discharge. Mucous membranes pink and moist. NECK: Trachea midline. No JVD. Orotracheally intubated. Left IJ clean dry and intact CARDIOVASCULAR: RRR. S1, S2. No S4. Without murmur. RESPIRATORY: Diminished breath sounds throughout. No rhonchi appreciated. No end expiratory wheeze. Bilateral chest tubes in place GASTROINTESTINAL: Abdomen slightly tender palpation. Normoactive bowel sounds. Incisional sutures intact without erythema or dehiscence. No drainage. ROSHAN drain positive serosanguineous drainage -400 MUSCULOSKELETAL: Extremities with trace to 1+ lower extremity peripheral edema. No obvious deformities. NEUROLOGICAL: Awake and alert. No obvious cranial nerve deficits. Motor grossly within normal limits. Five out of 5 muscle strength in the arms and legs. Normal speech. Vascular Central Line Catheter: Yes Assessment to: Continue Date of Insertion: Sep 16, 2016 Line: Central Venous Catheter Side: Left Location: Internal, Jugular A/P Assessment and Plan Neuro/Psych: Currently on a fentanyl drip at 75 g an hour for analgesia while intubated. We have Precedex as the patient causing more hypotension then relieving his anxiety. Goal of RASS -2 - 0 Daily sedation vacation Appears comfortable on the ventilator CV: Large A-a gradient A. fib with RVR - normal sinus rhythm Hypertension Dyslipidemia History of splenic artery stenting secondary to aneurysm Currently on low-dose norepinephrine at 2 Bret times a minute. Also wean off today Currently on milrinone at 0.25 mg/kg/m due to high A-a gradient. Will decrease to 0.25 today Amiodarone drip has been discontinued Currently on Prinivil 10 mg by mouth daily for hypertension with holding parameters for low blood pressure Resp: Acute hypoxemic respiratory failure Severe COPD Pleural effusion status post bilateral chest tubes PC/AC 18/iP 12/iT 0.9/60 Ventilator bundle Bronchodilator therapy every 4 hours with albuterol every 2 hours for breakthrough dyspnea [place] twice a day Followed by /pulmonology Status post chest tube. Follow chest x-ray in a.m. Right chest tube- 60 cc SS to waterseal Left chest tube - 50 cc SS to waterseal Likely will pull chest tubes in a.m. 09/17 Likely will need tracheostomy. GI: Postop day #9 exploratory lap lysis of adhesions - Dr. Henriquez Chronic pancreatitis Abdominal ascites Internal hemorrhoids Elevated transaminases Status post EGD by GI. - Pathology revealed chronic gastritis inflammation Says post colonoscopy by GI 09/06 -incomplete splenic flexure normal mucosa. Internal hemorrhoids. ROSHAN -400 Currently TPN at 30 cc an hour. Nutrition recommendations recommend 65 cc an hour and lipids 20% at 10 cc an hour Trickle feeds to be initiated by surgery today currently Glucerna 1.5 at 20 cc an hour Protonix 40 mg IV twice a day Recheck LFTs in a.m. slowly trending downward. : Tavarez has been placed for accurate I's and O's in a critically ill patient Endo: Diabetes mellitus Sliding-scale insulin with Accu-Cheks every 4 hours maintain euglycemia. We'll change her aggressive sliding scale with Accu-Cheks every 4 hours. Levemir 25 units twice a day. 20 units sliding-scale insulin past 24 hours Holding home medication glipizide 10 mg by mouth daily Renal: Accurate I's and O's Monitor urine output BMP currently within normal limits Heme: Leukocytosis Anemia Daily CBC/CMP. Remains elevated ID: Currently on Maxipime, Flagyl and Diflucan Infectious disease actively following. Possibly discontinue Diflucan today Pertinent cultures 09/11 - blood culture - no growth 09/10 - blood culture 2 - no growth 09/10 - urine - no growth 09/02 - blood culture 2 - no growth FEN: Hypophosphatemia Received 15 mmol K-Phos. Recheck in a.m. MSK: PT/OT evaluate and treat Access - Right IJ CVL placed 09/08-09/16 - Left IJ CVL 09/16 at present Prophylaxis - GI - Protonix IV twice a day - DVT - SCD/pharmacological prophylaxis when okayed by surgery Critical Care: The total critical care time was 35 minutes. Time to perform other separately billable procedures was not included in the critical care time. Wilder Humphrey MD Sep 17, 2016 09:18 Wilder Humphrey MD Sep 17, 2016 09:18
[2016-09-17] MEDS: PANTOPRAZOLE SODIUM 40 MG VIAL IV PUSH SCH ×2 (09:52→22:19)
[2016-09-17] MEDS: SODIUM CHLORIDE 0.9% FLUSH 5 ML FLUSH FLUSH SCH ×2 (09:52→20:36)
[2016-09-17] MEDS: LORATADINE 10 MG TAB PO SCH (09:53)
[2016-09-17] MEDS ORDERED: POTASSIUM PHOSPHATE INJ 15 MMOL in SODIUM CHLORIDE 0.9% INJ 150 ML IV ONE (10:00)
--- NOTE | 2016-09-17 11:12 | HHI.PR ---
Subjective Subjective Notes Resting in bed shakes head to questions LINDSAY Montero and LINDSAY Ascencio at bedside Objective Vitals/I&O Vital Signs Date Time Temp Pulse Resp B/P Pulse Ox O2 Delivery O2 Flow Rate FiO2 09/17/16 10:00 88 09/17/16 08:00 98.5 19 117/69 97 09/17/16 08:00 60 09/17/16 07:50 Ventilator Labs Laboratory Tests Test 09/16/16 09/17/16 20:55 04:05 Lactic Acid Level 2.1 White Blood Count 27.0 Red Blood Count 4.49 Hemoglobin 12.8 Hematocrit 39.0 Mean Corpuscular Volume 86.8 Mean Corpuscular Hemoglobin 28.6 Mean Corpuscular Hemoglobin 32.9 Concent Red Cell Distribution Width 14.5 Platelet Count 163 Mean Platelet Volume 8.8 Neutrophils (%) (Auto) 81.0 Lymphocytes (%) (Auto) 8.3 Monocytes (%) (Auto) 10.1 Eosinophils (%) (Auto) 0.1 Basophils (%) (Auto) 0.5 Neutrophils # (Auto) 21.9 Lymphocytes # (Auto) 2.2 Monocytes # (Auto) 2.7 Eosinophils # (Auto) 0.0 Basophils # (Auto) 0.1 CBC Comment AUTO DIFF Differential Total Cells 100 Counted Neutrophils % (Manual) 80 Band Neutrophils % 2 Lymphocytes % 7 Monocytes % 10 Neutrophils # (Manual) 22.4 Metamyelocytes 1 Differential Comment FINAL DIFF MANUAL Platelet Estimate NORMAL Platelet Morphology Comment NORMAL Red Cell Morphology Comment NORMAL Sodium Level 141 Potassium Level 4.0 Chloride Level 106 Carbon Dioxide Level 28.3 Anion Gap 7 Blood Urea Nitrogen 32 Creatinine 0.78 Estimat Glomerular Filtration 102 Rate Random Glucose 222 Calcium Level 7.2 Protein Corrected Calcium 8.5 Phosphorus Level 2.3 Magnesium Level 2.0 Total Bilirubin 0.6 Aspartate Amino Transf 77 (AST/SGOT) Alanine Aminotransferase 177 (ALT/SGPT) Alkaline Phosphatase 47 Total Protein 4.8 Albumin 1.8 Radiology Last Impressions Chest X-Ray 09/12/16 0000 Signed Impressions: Service Date/Time: Monday, September 12, 2016 07:39 - CONCLUSION: Bibasilar airspace disease and bilateral pleural effusions larger on the right. Zechariah Sims MD Abdomen X-Ray 09/09/16 0600 Signed Impressions: Service Date/Time: August 04:54 - CONCLUSION: No significant interval change. Persistent upper mid abdomen small bowel dilatation and wall thickening. Filiberto Hall MD Abdomen/Pelvis CT 09/08/16 0000 Signed Impressions: Service Date/Time: Thursday, September 08, 2016 23:45 - CONCLUSION: 1. Marked inflammatory changes of left upper quadrant with severe mesenteric edema and adjacent short segment circumferential wall thickening of mid small bowel and adjacent distal transverse colon. Possible 4 cm abscess adjacent to the mid small bowel wall. Evaluation of intraluminal versus extraluminal fluid in this region is limited as intraluminal contrast is not present in this loop. A delayed scan may be beneficial for clarification. Differential diagnosis includes inflammatory bowel disease and infection. Moderate amount of free fluid similar to prior study. No evidence of free air. 2. Chronic pancreatitis. Filiberto Hall MD ADDENDUM: Delayed images show contrast filling the thickened loops of left upper quadrant small bowel. No evidence of abscess. Findings were discussed with Dr. Henriquez. Filiberto Hall MD Cardiovascular: Regular Lungs: Clear Abdomen: Other (midline incision --stapled; c/d/i; ROSHAN x 1 with SS drainage ) Extremities: Other (generalized edema ) Narrative Exam Bilateral chest tubes to water seal A/P Problem List: (1) Sepsis (2) COPD (chronic obstructive pulmonary disease) (3) Hypokalemia (4) Hyponatremia (5) Abdominal pain (6) Enteritis (7) Ileus (8) Leukocytosis (9) Diabetes (10) Systemic inflammatory response syndrome (SIRS) Assessment and Plan 61 year old male POD7 Exploratory Laparotomy, lysis of adhesions -Vent per CCM -TPN -Advance TF to 50 cc today and continue to advance to goal of 60 cc/hr -Place bilateral chest tube to water seal -Patient remains critically ill -Discussed with Dr. Henriquez -Discussed with Dr. Humphrey Attending Note - Dr. Martinez Nieves intact Chest clear bilaterally without rhonchi. May need trach if unable to wean The exam, history, and the medical decision-making described in the above note were completed with the assistance of the mid-level provider. I reviewed and agree with the findings presented. I attest that I had a [id number] encounter with the patient on the same day, and personally performed and documented my assessment and findings in the medical record. Problem Qualifiers (1) Leukocytosis: Qualified Code: D72.829 - Leukocytosis, unspecified type Charisma Larson Sep 17, 2016 11:12 Bret Henriquez MD Sep 21, 2016 10:10
[2016-09-17] MEDS: FLUCONAZOLE 400 MG PREMIX BAG 200 ML IV SCH (11:25)
[2016-09-17] MEDS: MILRINONE INJ 20 MG in SODIUM CHLORIDE 0.9% INJ 80 ML IV SCH ×2 (12:29→22:23)
--- NOTE | 2016-09-17 12:58 | HHI.IDPN ---
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 Cleared per Infection Control. Patient does not require isolation for hx of MRSA prior to 09/10/15. Objective . Vital Signs Date Time Temp Pulse Resp B/P Pulse Ox O2 Delivery O2 Flow Rate FiO2 09/17/16 12:24 92 60 09/17/16 12:00 60 09/17/16 12:00 93 09/17/16 12:00 98.3 92 19 106/57 94 09/17/16 10:00 88 09/17/16 08:00 91 09/17/16 08:00 98.5 91 19 117/69 97 09/17/16 08:00 60 09/17/16 07:50 96 Ventilator 60 09/17/16 07:50 95 60 09/17/16 06:00 96 09/17/16 04:03 95 65 09/17/16 04:00 65 09/17/16 04:00 98.3 90 18 131/62 96 09/17/16 04:00 90 09/17/16 02:00 89 09/17/16 00:42 96 65 09/17/16 00:00 70 09/17/16 00:00 98.2 90 18 118/57 94 09/17/16 00:00 88 09/16/16 22:19 94 65 09/16/16 22:00 88 09/16/16 20:40 94 65 09/16/16 20:00 97.7 86 18 153/78 97 09/16/16 20:00 90 09/16/16 20:00 70 09/16/16 18:00 82 09/16/16 16:00 97.7 83 18 90/48 95 09/16/16 16:00 70 09/16/16 16:00 83 09/16/16 15:50 93 70 09/16/16 14:45 18 09/16/16 14:00 77 09/16/16 09/16/16 09/17/16 15:00 23:00 07:00 Intake Total 1456 ml 665 ml 1418 ml Output Total 700 ml 450 ml 510 ml Balance 756 ml 215 ml 908 ml IV Total 1164 ml 456 ml 797 ml Tube Feeding 10 ml 195 ml TPN/PPN 292 ml 199 ml 264 ml Lipid 162 ml Output Urine Total 450 ml 300 ml 400 ml Tube Feeding Residual Discard 0 ml Chest Tube Drainage Total 90 ml 20 ml Drainage Total 160 ml 130 ml 110 ml # Bowel Movements 0 . Laboratory Tests Test 09/16/16 09/17/16 04:30 04:05 White Blood Count 22.2 TH/MM3 27.0 TH/MM3 Red Blood Count 4.52 MIL/MM3 4.49 MIL/MM3 Hemoglobin 12.9 GM/DL 12.8 GM/DL Hematocrit 39.6 % 39.0 % Mean Corpuscular Volume 87.6 FL 86.8 FL Mean Corpuscular Hemoglobin 28.5 PG 28.6 PG Mean Corpuscular Hemoglobin 32.5 % 32.9 % Concent Red Cell Distribution Width 14.4 % 14.5 % Platelet Count 202 TH/MM3 163 TH/MM3 Mean Platelet Volume 9.0 FL 8.8 FL Neutrophils (%) (Auto) 79.9 % 81.0 % Lymphocytes (%) (Auto) 6.8 % 8.3 % Monocytes (%) (Auto) 13.0 % 10.1 % Eosinophils (%) (Auto) 0.0 % 0.1 % Basophils (%) (Auto) 0.3 % 0.5 % Neutrophils # (Auto) 17.7 TH/MM3 21.9 TH/MM3 Lymphocytes # (Auto) 1.5 TH/MM3 2.2 TH/MM3 Monocytes # (Auto) 2.9 TH/MM3 2.7 TH/MM3 Eosinophils # (Auto) 0.0 TH/MM3 0.0 TH/MM3 Basophils # (Auto) 0.1 TH/MM3 0.1 TH/MM3 CBC Comment AUTO DIFF AUTO DIFF Differential Total Cells 100 100 Counted Neutrophils % (Manual) 84 % 80 % Band Neutrophils % 1 % 2 % Lymphocytes % 8 % 7 % Monocytes % 5 % 10 % Neutrophils # (Manual) 19.3 TH/MM3 22.4 TH/MM3 Metamyelocytes 1 % 1 % Myelocytes 1 % Differential Comment FINAL DIFF FINAL DIFF MANUAL MANUAL Platelet Estimate NORMAL NORMAL Platelet Morphology Comment NORMAL NORMAL Red Cell Morphology Comment NORMAL NORMAL Laboratory Tests Test 09/15/16 09/16/16 09/16/16 09/17/16 21:00 04:30 20:55 04:05 Sodium Level 139 MEQ/L 141 MEQ/L 141 MEQ/L Potassium Level 3.7 MEQ/L 3.5 MEQ/L 4.0 MEQ/L Chloride Level 101 MEQ/L 104 MEQ/L 106 MEQ/L Carbon Dioxide Level 26.5 MEQ/L 28.0 MEQ/L 28.3 MEQ/L Anion Gap 12 MEQ/L 9 MEQ/L 7 MEQ/L Blood Urea Nitrogen 30 MG/DL 28 MG/DL 32 MG/DL Creatinine 0.85 MG/DL 0.83 MG/DL 0.78 MG/DL Estimat Glomerular Filtration 92 ML/MIN 95 ML/MIN 102 ML/MIN Rate Random Glucose 369 MG/DL 293 MG/DL 222 MG/DL Calcium Level 6.3 MG/DL 7.6 MG/DL 7.2 MG/DL Protein Corrected Calcium 7.4 MG/DL 8.5 MG/DL Phosphorus Level 2.3 MG/DL 2.8 MG/DL 2.3 MG/DL Total Protein 4.8 GM/DL 5.0 GM/DL 4.8 GM/DL Magnesium Level 1.8 MG/DL 2.0 MG/DL Total Bilirubin 0.5 MG/DL 0.6 MG/DL Aspartate Amino Transf 131 U/L 77 U/L (AST/SGOT) Alanine Aminotransferase 226 U/L 177 U/L (ALT/SGPT) Alkaline Phosphatase 47 U/L 47 U/L Albumin 1.8 GM/DL 1.8 GM/DL Lactic Acid Level 2.1 mmol/L Imaging Chest X-Ray 09/17/16 0600 Signed Impressions: Service Date/Time: Saturday, September 17, 2016 05:37 - CONCLUSION: 1. No pneumothoraces. 2. Unchanged bibasilar consolidation. Anibal Malhotra Jr., MD Chest X-Ray 09/16/16 1504 Signed Impressions: Service Date/Time: August 15:12 - CONCLUSION: Central line placement without pneumothorax. Gumaro Correa MD Chest X-Ray 09/16/16 0600 Signed Impressions: Service Date/Time: August 02:16 - CONCLUSION: No significant change has occurred. John Payne MD Chest X-Ray 09/14/16 1200 Signed Impressions: Service Date/Time: Wednesday, September 14, 2016 12:25 - CONCLUSION: 1. No pneumothorax. 2. Multiple tubes and lines are stable. 3. Scattered patchy infiltrates bilaterally. Jostin Crow MD Chest X-Ray 09/12/16 0000 Signed Impressions: Service Date/Time: Monday, September 12, 2016 07:39 - CONCLUSION: Bibasilar airspace disease and bilateral pleural effusions larger on the right. Zechariah Sims MD Abdomen X-Ray 09/09/16 0600 Signed Impressions: Service Date/Time: August 04:54 - CONCLUSION: No significant interval change. Persistent upper mid abdomen small bowel dilatation and wall thickening. Filiberto Hall MD Abdomen/Pelvis CT 09/08/16 0000 Signed Impressions: Service Date/Time: Thursday, September 08, 2016 23:45 - CONCLUSION: 1. Marked inflammatory changes of left upper quadrant with severe mesenteric edema and adjacent short segment circumferential wall thickening of mid small bowel and adjacent distal transverse colon. Possible 4 cm abscess adjacent to the mid small bowel wall. Evaluation of intraluminal versus extraluminal fluid in this region is limited as intraluminal contrast is not present in this loop. A delayed scan may be beneficial for clarification. Differential diagnosis includes inflammatory bowel disease and infection. Moderate amount of free fluid similar to prior study. No evidence of free air. 2. Chronic pancreatitis. Filiberto Hall MD ADDENDUM: Delayed images show contrast filling the thickened loops of left upper quadrant small bowel. No evidence of abscess. Findings were discussed with Dr. Henriquez. Filiberto Hall MD Physical Exam GENERAL: awake, and responding, on the vent, in no apparent distress. SKIN: Cool and dry. No generalized rash HEAD: Atraumatic. Normocephalic. No temporal or scalp tenderness. EYES: Hersey conjunctivae. Has scleral edema. No scleral icterus. No injection or drainage. ENT: Nose without bleeding, or purulent drainage. Endotracheal tube is in the mouth. NECK: Trachea midline. No JVD or lymphadenopathy. Supple, nontender, no meningeal signs. CARDIOVASCULAR: Regular rate and rhythm without murmurs, gallops, or rubs. RESPIRATORY: Coarse breath sounds bilaterally, [address], one on each side GASTROINTESTINAL: Abdomen soft, not tender. Bowel sounds (+). Not distended. Midline incision, dry, no erythema. MUSCULOSKELETAL: Extremities without clubbing, or pedal edema. Both knees appear swollen NEUROLOGICAL: Responding PSYCH: Cooperative LINE: No evidence of infection : Tavarez in place, urine looks clear Assessment & Plan Remarks IMPRESSION Sepsis with shock, S/P exp lap with LUCY - ?shock due to other factors - C/S ok so far Respiratory failure, requiring a lot of O2, FiO2 at 100% - fluid, PNA, ARDS S/P exp lap, LUCY, for SBO Allergy to PCN, has tolerated Cephalosporins in the past Leukocytosis, worse RECOMMENDATION Sputum G/S C/S Follow CBC Continue Cefepime Continue Flagyl Continue Diflucan Follow new C/S Monitor progress D/W RN Dr Juventino Morales covering this weekend Tati Hansen MD Sep 17, 2016 12:58
[2016-09-17] MEDS: FAT EMULSION 20% INJ 250 ML (@10 mls/hr) IV-CENTRAL SCH (13:54)
--- NOTE | 2016-09-17 16:16 | HHI.PR ---
Subjective Remarks %, maintans sat61 YOWM with Pancreatitis,COPD,Nicotine use had Exp Lap on Vent Fi02 60 % Sedated Fi02 weaned to 60%, maintains sat Tolerates PCV Awake follows commands On low dose Levophed Objective Vital Signs Vital Signs Date Time Temp Pulse Resp B/P Pulse Ox O2 Delivery O2 Flow Rate FiO2 09/17/16 14:00 95 09/17/16 12:24 92 60 09/17/16 12:00 60 09/17/16 12:00 93 09/17/16 12:00 98.3 92 19 106/57 94 09/17/16 10:00 88 09/17/16 08:00 91 09/17/16 08:00 98.5 91 19 117/69 97 09/17/16 08:00 60 09/17/16 07:50 96 Ventilator 60 09/17/16 07:50 95 60 09/17/16 06:00 96 09/17/16 04:03 95 65 09/17/16 04:00 65 09/17/16 04:00 98.3 90 18 131/62 96 09/17/16 04:00 90 09/17/16 02:00 89 09/17/16 00:42 96 65 09/17/16 00:00 70 09/17/16 00:00 98.2 90 18 118/57 94 09/17/16 00:00 88 09/16/16 22:19 94 65 09/16/16 22:00 88 09/16/16 20:40 94 65 09/16/16 20:00 97.7 86 18 153/78 97 09/16/16 20:00 90 09/16/16 20:00 70 09/16/16 18:00 82 I/O 09/16/16 09/16/16 09/16/16 09/17/16 09/17/16 09/17/16 07:00 15:00 23:00 07:00 15:00 23:00 Intake Total 1209 ml 1456 ml 665 ml 1418 ml 1511 ml Output Total 600 ml 700 ml 450 ml 510 ml 580 ml Balance 609 ml 756 ml 215 ml 908 ml 931 ml IV Total 972 ml 1164 ml 456 ml 797 ml 886 ml Tube Feeding 10 ml 195 ml 322 ml TPN/PPN 237 ml 292 ml 199 ml 264 ml 227 ml Lipid 162 ml 76 ml Output Urine Total 350 ml 450 ml 300 ml 400 ml 475 ml Tube Feeding Residual Discard 0 ml 0 ml Chest Tube Drainage Total 100 ml 90 ml 20 ml 5 ml Drainage Total 150 ml 160 ml 130 ml 110 ml 100 ml # Bowel Movements 0 0 Result Diagram: 09/17/1640409/17/16404 Objective Remarks GENERAL: MBMN WM , on Vent sedated SKIN: Warm and dry. HEAD: Normocephalic. EYES: No scleral icterus. No injection or drainage. NECK: Supple, trachea midline. No JVD or lymphadenopathy. CARDIOVASCULAR: Regular rate and rhythm without murmurs, gallops, or rubs. RESPIRATORY: Breath sounds equal bilaterally. No accessory muscle use. GASTROINTESTINAL: Abdomen soft, non-tender, MUSCULOSKELETAL: No cyanosis, or edema. BACK: Nontender without obvious deformity. No CVA tenderness. A/P Assessment and Plan Vent dependent RF Profound hypoxia Hypoxia Hypotension-resolved S/P Exp Lap COPD Nicotine use DM PLAN: Vent Support. Fi02 60%,PCV Broad spectrum Abx Aerosol nebs. If not weaned, will need trach Wean Levophed Velasquez Hill MD Sep 17, 2016 16:16
[2016-09-17] MEDS: CLINIMIX E 5/25 2000 mL- >42 mls/hr IV-CENTRAL SCH ×3 (20:37)
[2016-09-17] MEDS: INSULIN DETEMIR 100 UNITS/ML VIAL SQ SCH (20:39)
[2016-09-17] MEDS: fentaNYL 2,500 MCG/NS 250 ML IV SCH (21:51)
[2016-09-18] VITALS (16 sets, daily range): BP systolic 131–155; BP diastolic 78–94; PULSE 90–144; RESP 20–25; TEMP 98.1–99.8; O2SAT 93–99
[2016-09-18] MEDS: metroNIDAZOLE 500 MG INJ 100 ML IV SCH ×4 (01:05→23:44)
[2016-09-18] MEDS: INSULIN NovoLIN REGULAR SUPPLEMENTAL SCALE SQ SCH ×7 (01:06→23:56)
[2016-09-18] MEDS: RESP: ALBUTEROL 2.5 MG/IPRATROPIUM 0.5 MG NEB (SCH) NEB ×4 (04:07→19:30)
[2016-09-18 04:44] LABS: HEMATOCRIT 39.5 % (39.0-51.0); MEAN CORPUSCULAR HGB CONC 33.3 % (32.0-36.0); PLATELET COUNT 142 TH/MM3 (150-450); RED BLOOD COUNT 4.54 MIL/MM3 (4.50-5.90); RED CELL DISTRIBUTION WIDTH 14.5 % (11.6-17.2); WHITE BLOOD COUNT 30.5 TH/MM3 (4.0-11.0)
[2016-09-18 04:49] LABS: HEMO FLAGS AUTO DIFF
[2016-09-18 05:12] LABS: ALT (GPT) 149 U/L (12-78); ANION GAP 6 MEQ/L (5-15); AST (GOT) 62 U/L (15-37); BICARBONATE 29.6 MEQ/L (21.0-32.0); BLOOD UREA NITROGEN 36 MG/DL (7-18); CHLORIDE 107 MEQ/L (98-107); GLOMERULAR FILTRATION RATE 119 ML/MIN (>89); MAGNESIUM 1.9 MG/DL (1.5-2.5); POTASSIUM 3.5 MEQ/L (3.5-5.1); SODIUM (NA) 143 MEQ/L (136-145)
[2016-09-18 05:14] LABS: ALKALINE PHOSPHATASE 54 U/L (45-117); TOTAL BILIRUBIN ADULT 0.4 MG/DL (0.2-1.0)
--- NOTE | 2016-09-18 05:44 | RADRPT ---
EXAM DATE/TIME: 09/18/2016 04:40 [facility] COMPARISON: CHEST SINGLE AP, September 17, 2016, 5:37. INDICATIONS : Shortness of breath, possible pulmonary disease. MEDICAL HISTORY : Hypertension. Chronic obstructive pulmonary disease. SURGICAL HISTORY : None. ENCOUNTER: Subsequent ACUITY: 2 weeks PAIN SCORE: Non-responsive. LOCATION: Bilateral chest FINDINGS: Single portable frontal view of the chest shows improvement in the bibasilar consolidation. Bilateral thoracostomy tubes, left-sided central line, nasogastric tube, and endotracheal tube remain in good position. Tip of the NG tube 4 cm cephalad to the regine. No pneumothorax. Heart is normal in size. CONCLUSION: 1. Improving bibasilar consolidation. 2. No pneumothorax. Anibal Malhotra Jr., MD on September 18, 2016 at 5:41 Board Certified Radiologist. This report was verified electronically.
[2016-09-18] MEDS: HYDROCORTISONE SOD SUCCINATE 100 MG VIAL IV PUSH SCH ×3 (05:52→23:24)
[2016-09-18] MEDS: CEFEPIME INJ 2,000 MG in SODIUM CHLORIDE 0.9% INJ 100 ML IV SCH ×3 (05:52→20:28)
[2016-09-18] MEDS: SODIUM PHOSPHATE INJ 30 MMOL in SODIUM CHLOR 0.9% 250 ML INJ 240 ML IV PRN (07:18)
[2016-09-18] MEDS: CHLORHEXIDINE 0.12% (ORAL KIT) 15 ML CUP MT SCH ×2 (08:00→20:27)
[2016-09-18] MEDS: LISINOPRIL 10 MG TAB PO SCH (08:20)
[2016-09-18] MEDS: LORATADINE 10 MG TAB PO SCH (08:20)
[2016-09-18] MEDS: guaiFENesin E.R. 600 MG TAB PO SCH ×2 (08:20→20:29)
[2016-09-18] MEDS: PANTOPRAZOLE SODIUM 40 MG VIAL IV PUSH SCH ×2 (08:20→20:28)
[2016-09-18] MEDS: RESP: BUDESONIDE 0.5 MG/2 ML NEB NEB SCH ×2 (08:46→19:30)
[2016-09-18] MEDS: SODIUM CHLORIDE 0.9% FLUSH 10 ML FLUSH IVF SCH (09:00)
[2016-09-18] MEDS: SODIUM CHLORIDE 0.9% FLUSH 5 ML FLUSH FLUSH SCH ×2 (09:00→20:28)
[2016-09-18] MEDS: INSULIN DETEMIR 100 UNITS/ML VIAL SQ SCH ×2 (09:00→20:29)
[2016-09-18] MEDS: FLUTICASONE PROPIONATE 50 MCG/ACT 16 GM NASAL SPRAY NASAL SCH ×2 (09:00→20:28)
[2016-09-18 09:11] LABS: BANDS 2 % (0-6); CORRECTED NUCLEATED RBC 1 /100 WBC (0-0); METAMYELOCYTES 1 % (0-1); NEUTROPHIL # MANUAL DIFF 26.8 TH/MM3 (1.8-7.7); POLYS (SEG NEUTROPHILS) 85 % (16-70); WBC DIFF SAMPLE 100
[2016-09-18 09:12] LABS: PLATELET ESTIMATE SMEAR LOW (NORMAL); PLATELET MORPHOLOGY NORMAL (NORMAL); SCAN/DIFF FINAL DIFF MANUAL
--- NOTE | 2016-09-18 10:54 | HHI.CCPN ---
Subjective Remarks/Hospital Course This is a 61-year-old male with a past medical history of chronic pancreatitis, hypertension, type 2 diabetes who presented with abdominal pain that started Tuesday. Patient stated that abdominal pain is located in the left lower quadrant and it was very mild. He said over the weekend has worsened in intensity and is constant. Patient stated that he has some nausea that resolves or improves with food. Deny any emesis. Patient also complains of a chronic productive cough that has been the same. He denies any diarrhea or constipation and see that his stools are normal. Patient also denies any fever or chills. She was admitted to hospitalist service and was evaluated subsequently by GI, Dr. Pinto as well as Dr. Henriquez from general surgery in view of abnormal CT abdomen pelvis with left upper quadrant inflammatory change in these and treat with edema and KUBs raising question of SBO. She underwent E lap with lysis of lesions under general anesthesia by Dr. Henriquez on 09/10, EBL 100 cc, received 2 L crystalloid intraoperatively, postop diagnosis small bowel adhesions. Patient was kept intubated postoperatively and transferred to [facility]. I saw the patient shortly after his arrival to the ICU. He had just been started on Versed and fentanyl and dropped his blood pressure to the 60 systolic range. He was ordered a fluid bolus 2 L crystalloids stat and started on Levophed for hypotension. Stat cultures were sent. Patient also is having problem with his O2 sats were dropping in the 80s. Stat chest x-ray was ordered. While waiting for chest x-ray, ET tube drone pilot balloon appeared damaged hence cuff was not holding air so patient was sedated with Etomidate/ Fentanyl/ Rocuronium and ET tube was changed over a tube exchanger which was confirmed with a postprocedure chest x-ray with satisfactory placement of ET tube, right IJ central line in place, bilateral interstitial infiltrates with hyperinflated lung rothman, no pneumothorax. Patient was requiring 2 mics of Levophed for pressor support. 09/11: Ongoing hypotension and difficulty with oxygenation. Persistent hypotension responsive to volume. CVP 20. Suspect chronic pulmonary hypertension with heavily preload-dependent cardiac output. Will start milrinone for RV support and add vasopressin to levophed prn. Sustained tachycardia prohibits continued escalation of levophed. Underlying lung function is marginal at best. 09/12 0740 hrs: Severe chronic lung disease without significant reserve appears to be the primary pathophysiology here. We were able to produce acceptable cardiac output yesterday with milrinone and vasopressin, minor amounts levophed for peripheral support. He has developed refractory hypoxemia overnight in the 60 - 70% range which is incompatible with survival. Cardiopulmonary dynamics have been maximized and are beginning to deteriorate. Will get another CXR and see if thoracentesis will help lung function. 09/12 1600 hours: Continued difficulty with oxygenation, sats in range 78 - 81% .Cardioverted pharmacologically back to NSR and Flotrac output 7.8. Abdominal pressure 18. At this point he has adequate blood flow and oxygen delivery capacity despite low PO2. We have tried various vent modes and PC/AC appears to work best. SVV is 10; altogether these observations recommend diuresis to help oxygenation. He has horrible diffuse emphysema and a moderate right pleural effusion - may be forced to place a chest tube to allow better lung expansion. 09/13: Improved oxygenation after aggressive diuresis. Renal function remains stable. Alert, responsive. 09.14: Continued good diuresis after lasix. A-aO2 gradient marginally improved. Remains alert. 09/15: Currently afebrile. Almost off norepinephrine drip. Awake and alert and follows commands. FiO2 70%. 09/16: Complaining of air hunger on the ventilator. Currently afebrile. FiO2 back down at 70%. Inspiratory pressure decreased from 18 to 12. 09/17: Awake and alert. Central line was changed to the left side. Afebrile. FiO2 down to 60%. On 2 g per min of norepinephrine. SUBJECTIVE: 09/18: Awake and alert. No acute changes overnight. FiO2 was remains at 60%. Tolerating tube feeding. Objective Vital Signs Date Time Temp Pulse Resp B/P Pulse Ox O2 Delivery O2 Flow Rate FiO2 09/18/16 08:38 97 60 09/18/16 08:00 98.7 103 20 131/94 09/17/16 07:50 Ventilator Intake and Output 09/17/16 09/17/16 09/18/16 08:00 16:00 00:00 Intake Total 1418 ml 1511 ml 1056 ml Output Total 510.0 ml 580 ml 860 ml Balance 908.0 ml 931 ml 196 ml Result Diagram: 09/18/16 0415 09/18/16 0415 Other Results Microbiology Date/Time Procedure Status Source Growth 09/17/16 22:30 Gram Stain - Final Resulted Sputum Endotracheal 09/17/16 22:30 Sputum Culture Resulted Sputum Endotracheal Pending Imaging Last Impressions Chest X-Ray 09/18/16 0600 Signed Impressions: Service Date/Time: Sunday, September 18, 2016 04:40 - CONCLUSION: 1. Improving bibasilar consolidation. 2. No pneumothorax. Anibal Malhotra Jr., MD Abdomen X-Ray 09/09/16 0600 Signed Impressions: Service Date/Time: August 04:54 - CONCLUSION: No significant interval change. Persistent upper mid abdomen small bowel dilatation and wall thickening. Filiberto Hall MD Abdomen/Pelvis CT 09/08/16 0000 Signed Impressions: Service Date/Time: Thursday, September 08, 2016 23:45 - CONCLUSION: 1. Marked inflammatory changes of left upper quadrant with severe mesenteric edema and adjacent short segment circumferential wall thickening of mid small bowel and adjacent distal transverse colon. Possible 4 cm abscess adjacent to the mid small bowel wall. Evaluation of intraluminal versus extraluminal fluid in this region is limited as intraluminal contrast is not present in this loop. A delayed scan may be beneficial for clarification. Differential diagnosis includes inflammatory bowel disease and infection. Moderate amount of free fluid similar to prior study. No evidence of free air. 2. Chronic pancreatitis. Filiberto Hall MD ADDENDUM: Delayed images show contrast filling the thickened loops of left upper quadrant small bowel. No evidence of abscess. Findings were discussed with Dr. Henriquez. Filiberto Hall MD Objective Remarks GENERAL: 61-year-old male, critically ill currently in bed appears to be in no acute stress SKIN: Warm and dry. No rash HEAD: Atraumatic. Normocephalic. EYES: Pupils equal and round about 3 mm bilaterally and reactive. No scleral icterus. No injection or drainage. ENT: No nasal bleeding or discharge. Mucous membranes pink and moist. NECK: Trachea midline. No JVD. Orotracheally intubated. Left IJ clean dry and intact CARDIOVASCULAR: RRR. S1, S2. No S4. Without murmur. RESPIRATORY: Diminished breath sounds throughout. No rhonchi appreciated. No end expiratory wheeze. Bilateral chest tubes in place GASTROINTESTINAL: Abdomen slightly tender palpation. Normoactive bowel sounds. Incisional sutures intact without erythema or dehiscence. No drainage. ROSHAN drain positive serosanguineous drainage -400 MUSCULOSKELETAL: Extremities with trace to 1+ lower extremity peripheral edema. No obvious deformities. NEUROLOGICAL: Awake and alert. No obvious cranial nerve deficits. Motor grossly within normal limits. Five out of 5 muscle strength in the arms and legs. Normal speech. Date of Insertion: Sep 16, 2016 Line: Central Venous Catheter Side: Left Location: Internal, Jugular A/P Assessment and Plan Neuro/Psych: Currently on a fentanyl drip at 75 g an hour for analgesia while intubated. We have Precedex as the patient causing more hypotension then relieving his anxiety. Goal of RASS -2 - 0 Daily sedation vacation Appears comfortable on the ventilator CV: Large A-a gradient A. fib with RVR - normal sinus rhythm Hypertension Dyslipidemia History of splenic artery stenting secondary to aneurysm Currently on low-dose norepinephrine at 2 Bret times a minute. Also wean off today Currently on milrinone at 0.25 mg/kg/m due to high A-a gradient. Will decrease to 0.25 today Amiodarone drip has been discontinued Currently on Prinivil 10 mg by mouth daily for hypertension with holding parameters for low blood pressure Resp: Acute hypoxemic respiratory failure Severe COPD Pleural effusion status post bilateral chest tubes PC/AC 18/iP 12/iT 0.9/12/60 Ventilator bundle Bronchodilator therapy every 4 hours with albuterol every 2 hours for breakthrough dyspnea [place] twice a day Followed by /pulmonology Status post chest tube. Follow chest x-ray in a.m. Right chest tube- 60 cc SS to waterseal Left chest tube - 50 cc SS to waterseal Likely will pull chest tubes in a.m. 3 Likely will need tracheostomy. GI: Postop day #9 exploratory lap lysis of adhesions - Dr. Henriquez Chronic pancreatitis Abdominal ascites Internal hemorrhoids Elevated transaminases Status post EGD by GI. - Pathology revealed chronic gastritis inflammation Says post colonoscopy by GI 09/06 -incomplete splenic flexure normal mucosa. Internal hemorrhoids. ROSHAN -400 Currently TPN at 30 cc an hour. Nutrition recommendations recommend 65 cc an hour and lipids 20% at 10 cc an hour Trickle feeds to be initiated by surgery today currently Glucerna 1.5 at 20 cc an hour Protonix 40 mg IV twice a day Recheck LFTs in a.m. slowly trending downward. : Tavarez has been placed for accurate I's and O's in a critically ill patient Endo: Diabetes mellitus Sliding-scale insulin with Accu-Cheks every 4 hours maintain euglycemia. We'll change her aggressive sliding scale with Accu-Cheks every 4 hours. Levemir 25 units twice a day. 20 units sliding-scale insulin past 24 hours Holding home medication glipizide 10 mg by mouth daily Renal: Accurate I's and O's Monitor urine output BMP currently within normal limits Heme: Leukocytosis Anemia Daily CBC/CMP. Remains elevated ID: Currently on Maxipime, Flagyl and Diflucan Infectious disease actively following. Possibly discontinue Diflucan today Pertinent cultures 09/11 - blood culture - no growth 09/10 - blood culture 2 - no growth 09/10 - urine - no growth 09/02 - blood culture 2 - no growth FEN: Hypophosphatemia Received 15 mmol K-Phos. Recheck in a.m. MSK: PT/OT evaluate and treat Access - Right IJ CVL placed 09/08-09/16 - Left IJ CVL 09/16 at present Prophylaxis - GI - Protonix IV twice a day - DVT - SCD/pharmacological prophylaxis when okayed by surgery Critical Care: The total critical care time was 35 minutes. Time to perform other separately billable procedures was not included in the critical care time. Wilder Humphrey MD Sep 18, 2016 10:54
--- NOTE | 2016-09-18 12:31 | HHI.PR ---
Subjective Subjective Notes awake and alert on vent, no BM yet per nursing, tolerating TF @ 30cc Objective Vitals/I&O Vital Signs Date Time Temp Pulse Resp B/P Pulse Ox O2 Delivery O2 Flow Rate FiO2 09/18/16 12:00 98.1 109 22 155/80 97 09/18/16 10:56 60 09/17/16 07:50 Ventilator Labs Laboratory Tests Test 09/18/16 04:15 White Blood Count 30.5 Red Blood Count 4.54 Hemoglobin 13.2 Hematocrit 39.5 Mean Corpuscular Volume 87.0 Mean Corpuscular Hemoglobin 29.0 Mean Corpuscular Hemoglobin 33.3 Concent Red Cell Distribution Width 14.5 Platelet Count 142 Mean Platelet Volume 9.5 Neutrophils (%) (Auto) Lymphocytes (%) (Auto) Monocytes (%) (Auto) Eosinophils (%) (Auto) Basophils (%) (Auto) Neutrophils # (Auto) Lymphocytes # (Auto) Monocytes # (Auto) Eosinophils # (Auto) Basophils # (Auto) CBC Comment AUTO DIFF Differential Total Cells 100 Counted Neutrophils % (Manual) 85 Band Neutrophils % 2 Lymphocytes % 7 Monocytes % 5 Neutrophils # (Manual) 26.8 Metamyelocytes 1 Nucleated Red Blood Cells 1 Differential Comment FINAL DIFF MANUAL Platelet Estimate LOW Platelet Morphology Comment NORMAL Red Cell Morphology Comment NORMAL Sodium Level 143 Potassium Level 3.5 Chloride Level 107 Carbon Dioxide Level 29.6 Anion Gap 6 Blood Urea Nitrogen 36 Creatinine 0.68 Estimat Glomerular Filtration 119 Rate Random Glucose 128 Calcium Level 7.7 Phosphorus Level 2.1 Magnesium Level 1.9 Total Bilirubin 0.4 Aspartate Amino Transf 62 (AST/SGOT) Alanine Aminotransferase 149 (ALT/SGPT) Alkaline Phosphatase 54 Total Protein 4.8 Albumin 1.7 Date/Time Procedure Status Source Growth 09/17/16 22:30 Gram Stain - Final Resulted Sputum Endotracheal 09/17/16 22:30 Sputum Culture Resulted Sputum Endotracheal Pending Radiology Last Impressions Chest X-Ray 09/12/16 0000 Signed Impressions: Service Date/Time: Monday, September 12, 2016 07:39 - CONCLUSION: Bibasilar airspace disease and bilateral pleural effusions larger on the right. Zechariah Sims MD Abdomen X-Ray 09/09/16 0600 Signed Impressions: Service Date/Time: August 04:54 - CONCLUSION: No significant interval change. Persistent upper mid abdomen small bowel dilatation and wall thickening. Filiberto Hall MD Abdomen/Pelvis CT 09/08/16 0000 Signed Impressions: Service Date/Time: Thursday, September 08, 2016 23:45 - CONCLUSION: 1. Marked inflammatory changes of left upper quadrant with severe mesenteric edema and adjacent short segment circumferential wall thickening of mid small bowel and adjacent distal transverse colon. Possible 4 cm abscess adjacent to the mid small bowel wall. Evaluation of intraluminal versus extraluminal fluid in this region is limited as intraluminal contrast is not present in this loop. A delayed scan may be beneficial for clarification. Differential diagnosis includes inflammatory bowel disease and infection. Moderate amount of free fluid similar to prior study. No evidence of free air. 2. Chronic pancreatitis. Filiberto Hall MD ADDENDUM: Delayed images show contrast filling the thickened loops of left upper quadrant small bowel. No evidence of abscess. Findings were discussed with Dr. Henriquez. Filiberto Hall MD Cardiovascular: Regular Lungs: Clear Abdomen: BS normal Narrative Exam overall very edematous, wound is clean, some serous drainage at the bottom, no pus, no erythema. ROSHAN no output A/P Problem List: (1) Sepsis (2) COPD (chronic obstructive pulmonary disease) (3) Hypokalemia (4) Hyponatremia (5) Abdominal pain (6) Enteritis (7) Ileus (8) Leukocytosis (9) Diabetes (10) Systemic inflammatory response syndrome (SIRS) Assessment and Plan S/p exp lap for SBO supportive care awaiting BM cont TF wean TPN off DW Dr Humphrey and Moni at bedside. Problem Qualifiers (1) Leukocytosis: Qualified Code: D72.829 - Leukocytosis, unspecified type Ulises Pham MD Sep 18, 2016 12:31
[2016-09-18] MEDS: FLUCONAZOLE 400 MG PREMIX BAG 200 ML IV SCH (13:14)
--- NOTE | 2016-09-18 14:13 | HHI.IDPN ---
Subjective Subjective Remarks ID Xcover for . is a 61-year-old CM, admitted to the hospital September 03 complaining of abdominal pain. He had leukocytosis. CT of abdomen and pelvis showed findings suggestive of enteritis versus ischemic bowel. Initially placed on Cipro and Flagyl. GI was consult today and ordered CTA. CTA did not show any significant stenosis. He underwent upper endoscopy which showed gastritis and esophagitis. Colonoscopy was not completed and it was only done up to the splenic flexure, and findings were normal. Patient also has had problem with some coughing, and his initial chest x-ray showed chronic right pleural parenchymal thickening. Patient's abdominal pain has improved. He had persistent leukocytosis however. Repeat CT did show some abnormal findings in the small bowel. There are some findings of small bowel obstruction, so the patient was taken to surgery yesterday. He had exploratory laparotomy with lysis of adhesions. Postoperatively he remained on the vent, and became hypotensive. He is currently sedated on the vent, FiO2 is at 100%. He is on Levophed 20 mics. He has been afebrile. Infectious disease consultation has been requested to evaluate the patient with sepsis, intra-abd peritonitis ? Overnight events reviewed with RN. Notes reviewed D/W RN On low milirinone. On TPN per surgery On the vent Awake and comfortable on the vent, nods to responses. Moves all 4 extremities. Good UO Right CT removed today; still has left CT in place. ROSHAN drain with sanguinous discharge. 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 Cleared per Infection Control. Patient does not require isolation for hx of MRSA prior to 09/10/15. Objective . Vital Signs Date Time Temp Pulse Resp B/P Pulse Ox O2 Delivery O2 Flow Rate FiO2 09/18/16 12:47 99 60 09/18/16 12:00 98.1 109 22 155/80 97 09/18/16 12:00 109 09/18/16 10:56 94 60 09/18/16 08:38 97 60 09/18/16 08:00 98.7 103 20 131/94 98 09/18/16 08:00 103 09/18/16 08:00 60 09/18/16 06:00 108 09/18/16 04:08 95 60 09/18/16 04:00 102 09/18/16 04:00 98.5 102 20 131/84 95 09/18/16 04:00 60 09/18/16 02:00 95 09/18/16 01:49 95 60 09/18/16 00:00 98.6 104 20 144/78 96 09/18/16 00:00 60 09/18/16 00:00 144 09/17/16 22:17 96 60 09/17/16 22:00 95 09/17/16 20:16 96 60 09/17/16 20:00 98.5 103 21 129/100 95 09/17/16 20:00 60 09/17/16 20:00 101 09/17/16 18:00 97 09/17/16 17:00 60 09/17/16 16:27 95 60 09/17/16 16:00 98.5 93 19 122/70 95 09/17/16 16:00 93 09/17/16 09/17/16 09/18/16 15:00 23:00 07:00 Intake Total 1511 ml 1056 ml 959 ml Output Total 580 ml 860 ml 1110 ml Balance 931 ml 196 ml -151 ml IV Total 886 ml 726 ml 523 ml Tube Feeding 322 ml 111 ml TPN/PPN 227 ml 249 ml 244 ml Lipid 76 ml 81 ml 81 ml Output Urine Total 475 ml 750 ml 850 ml Stool Total 0 ml Tube Feeding Residual Discard 0 ml 0 ml Chest Tube Drainage Total 5 ml 10 ml 130 ml Drainage Total 100 ml 100 ml 130 ml # Bowel Movements 0 . Laboratory Tests Test 09/17/16 09/18/16 04:05 04:15 White Blood Count 27.0 TH/MM3 30.5 TH/MM3 Red Blood Count 4.49 MIL/MM3 4.54 MIL/MM3 Hemoglobin 12.8 GM/DL 13.2 GM/DL Hematocrit 39.0 % 39.5 % Mean Corpuscular Volume 86.8 FL 87.0 FL Mean Corpuscular Hemoglobin 28.6 PG 29.0 PG Mean Corpuscular Hemoglobin 32.9 % 33.3 % Concent Red Cell Distribution Width 14.5 % 14.5 % Platelet Count 163 TH/MM3 142 TH/MM3 Mean Platelet Volume 8.8 FL 9.5 FL Neutrophils (%) (Auto) 81.0 % % Lymphocytes (%) (Auto) 8.3 % % Monocytes (%) (Auto) 10.1 % % Eosinophils (%) (Auto) 0.1 % % Basophils (%) (Auto) 0.5 % % Neutrophils # (Auto) 21.9 TH/MM3 TH/MM3 Lymphocytes # (Auto) 2.2 TH/MM3 TH/MM3 Monocytes # (Auto) 2.7 TH/MM3 TH/MM3 Eosinophils # (Auto) 0.0 TH/MM3 TH/MM3 Basophils # (Auto) 0.1 TH/MM3 TH/MM3 CBC Comment AUTO DIFF AUTO DIFF Differential Total Cells 100 100 Counted Neutrophils % (Manual) 80 % 85 % Band Neutrophils % 2 % 2 % Lymphocytes % 7 % 7 % Monocytes % 10 % 5 % Neutrophils # (Manual) 22.4 TH/MM3 26.8 TH/MM3 Metamyelocytes 1 % 1 % Differential Comment FINAL DIFF FINAL DIFF MANUAL MANUAL Platelet Estimate NORMAL LOW Platelet Morphology Comment NORMAL NORMAL Red Cell Morphology Comment NORMAL NORMAL Nucleated Red Blood Cells 1 /100 WBC Laboratory Tests Test 09/16/16 09/17/16 09/18/16 20:55 04:05 04:15 Lactic Acid Level 2.1 mmol/L Sodium Level 141 MEQ/L 143 MEQ/L Potassium Level 4.0 MEQ/L 3.5 MEQ/L Chloride Level 106 MEQ/L 107 MEQ/L Carbon Dioxide Level 28.3 MEQ/L 29.6 MEQ/L Anion Gap 7 MEQ/L 6 MEQ/L Blood Urea Nitrogen 32 MG/DL 36 MG/DL Creatinine 0.78 MG/DL 0.68 MG/DL Estimat Glomerular Filtration 102 ML/MIN 119 ML/MIN Rate Random Glucose 222 MG/DL 128 MG/DL Calcium Level 7.2 MG/DL 7.7 MG/DL Protein Corrected Calcium 8.5 MG/DL Phosphorus Level 2.3 MG/DL 2.1 MG/DL Magnesium Level 2.0 MG/DL 1.9 MG/DL Total Bilirubin 0.6 MG/DL 0.4 MG/DL Aspartate Amino Transf 77 U/L 62 U/L (AST/SGOT) Alanine Aminotransferase 177 U/L 149 U/L (ALT/SGPT) Alkaline Phosphatase 47 U/L 54 U/L Total Protein 4.8 GM/DL 4.8 GM/DL Albumin 1.8 GM/DL 1.7 GM/DL Microbiology Date/Time Procedure Status Source Growth 09/17/16 22:30 Gram Stain - Final Resulted Sputum Endotracheal 09/17/16 22:30 Sputum Culture - Preliminary Resulted Sputum Endotracheal NO GROWTH IN 24 HOURS. Imaging Chest X-Ray 09/17/16 0600 Signed Impressions: Service Date/Time: Saturday, September 17, 2016 05:37 - CONCLUSION: 1. No pneumothoraces. 2. Unchanged bibasilar consolidation. Anibal Malhotra Jr., MD Chest X-Ray 09/16/16 1504 Signed Impressions: Service Date/Time: August 15:12 - CONCLUSION: Central line placement without pneumothorax. Gumaro Correa MD Chest X-Ray 09/16/16 0600 Signed Impressions: Service Date/Time: August 02:16 - CONCLUSION: No significant change has occurred. John Payne MD Chest X-Ray 09/14/16 1200 Signed Impressions: Service Date/Time: Wednesday, September 14, 2016 12:25 - CONCLUSION: 1. No pneumothorax. 2. Multiple tubes and lines are stable. 3. Scattered patchy infiltrates bilaterally. Jostin Crow MD Chest X-Ray 09/12/16 0000 Signed Impressions: Service Date/Time: Monday, September 12, 2016 07:39 - CONCLUSION: Bibasilar airspace disease and bilateral pleural effusions larger on the right. Zechariah Sims MD Abdomen X-Ray 09/09/16 0600 Signed Impressions: Service Date/Time: August 04:54 - CONCLUSION: No significant interval change. Persistent upper mid abdomen small bowel dilatation and wall thickening. Filiberto Hall MD Abdomen/Pelvis CT 09/08/16 0000 Signed Impressions: Service Date/Time: Thursday, September 08, 2016 23:45 - CONCLUSION: 1. Marked inflammatory changes of left upper quadrant with severe mesenteric edema and adjacent short segment circumferential wall thickening of mid small bowel and adjacent distal transverse colon. Possible 4 cm abscess adjacent to the mid small bowel wall. Evaluation of intraluminal versus extraluminal fluid in this region is limited as intraluminal contrast is not present in this loop. A delayed scan may be beneficial for clarification. Differential diagnosis includes inflammatory bowel disease and infection. Moderate amount of free fluid similar to prior study. No evidence of free air. 2. Chronic pancreatitis. Filiberto Hall MD ADDENDUM: Delayed images show contrast filling the thickened loops of left upper quadrant small bowel. No evidence of abscess. Findings were discussed with Dr. Henriquez. Filiberto Hall MD Physical Exam GENERAL: awake, and responding, on the vent, in no apparent distress. SKIN: Cool and dry. No generalized rash HEAD: Atraumatic. Normocephalic. No temporal or scalp tenderness. EYES: [place] conjunctivae. Has scleral edema. No scleral icterus. No injection or drainage. ENT: Nose without bleeding, or purulent drainage. Endotracheal tube is in the mouth. NECK: Trachea midline. No JVD or lymphadenopathy. Supple, nontender, no meningeal signs. CARDIOVASCULAR: Regular rate and rhythm without murmurs, gallops, or rubs. RESPIRATORY: Coarse breath sounds bilaterally, [address], one on each side GASTROINTESTINAL: Abdomen soft, no reaction to palpation, less distended. Midline incision, dry, no erythema. MUSCULOSKELETAL: Extremities without clubbing, or pedal edema. Both knees appear swollen NEUROLOGICAL: Responding PSYCH: Cooperative LINE: No evidence of infection : Tavarez in place, urine looks clear Assessment & Plan Remarks IMPRESSION Sepsis with shock, S/P exp lap with lysis of adhesions. ? Spillage peritonitis. - ?shock due to other factors - C/S ok so far Respiratory failure, requiring a lot of O2, FiO2 at 100% - fluid, PNA, ARDS S/P exp lap, LUCY, for SBO Allergy to PCN, has tolerated Cephalosporins in the past Leukocytosis, worse RECOMMENDATION Sputum G/S C/S Follow CBC Continue Cefepime IV Continue Flagyl IV Continue Diflucan IV Follow new C/S Monitor progress D/W RN Will follow prn over the weekend. Please call sooner if any change in clinical condition. to resume care on Tuesday. Pushpa Morales MD Sep 18, 2016 14:13
[2016-09-18] MEDS: POTASSIUM CHLOR 40 MEQ PREMIX 100 ML IV PRN (14:20)
--- NOTE | 2016-09-18 15:53 | RADRPT ---
EXAM DATE/TIME: 09/18/2016 14:57 [facility] COMPARISON: No previous studies available for comparison. INDICATIONS : Follow up removal of right chest tube. MEDICAL HISTORY : Hypertension. Chronic obstructive pulmonary disease. SURGICAL HISTORY : None. ENCOUNTER: Initial ACUITY: 1 day PAIN SCORE: Non-responsive. LOCATION: Bilateral chest FINDINGS: Endotracheal tube tip and has a position. NG enters stomach. Left chest tube well significant pneumot horax. Patchy airspace disease in the lungs similar to September 18 exam from earlier today. Previous rig ht chest tube has been removed. CONCLUSION: 1. Removal of right chest tube without pneumothorax. Left chest tube also without significant pneumot horax. Left central line in superior vena cava. Endotracheal tube and nasogastric tube unchanged. Alphonso Castillo MD on September 18, 2016 at 15:50 Board Certified Radiologist. This report was verified electronically.
[2016-09-18] MEDS: FAT EMULSION 20% INJ 250 ML (@10 mls/hr) IV-CENTRAL SCH (20:26)
[2016-09-18] MEDS: CLINIMIX E 5/25 1000 mL- </= 42 mls/hr IV-CENTRAL SCH ×3 (20:26)
[2016-09-19] VITALS (15 sets, daily range): BP systolic 120–164; BP diastolic 72–89; PULSE 78–100; RESP 18–26; TEMP 98.4–99; O2SAT 90–100
[2016-09-19] MEDS: fentaNYL 2,500 MCG/NS 250 ML IV SCH ×2 (01:01→20:24)
[2016-09-19] MEDS ORDERED: ADENOSINE IV SOLN 3 MG/ML 2 ML VIAL ONE (01:35)
[2016-09-19] MEDS: INSULIN NovoLIN REGULAR SUPPLEMENTAL SCALE SQ SCH ×5 (04:00→19:51)
[2016-09-19] MEDS: RESP: ALBUTEROL 2.5 MG/IPRATROPIUM 0.5 MG NEB (SCH) NEB ×4 (04:30→21:13)
[2016-09-19 05:28] LABS: AUTOMATED NEUTROPHIL # 21.6 TH/MM3 (1.8-7.7); BASOPHIL # 0.1 TH/MM3 (0-0.2); BASOPHIL % 0.3 % (0.0-2.0); EOSINOPHIL # 0.1 TH/MM3 (0-0.4); EOSINOPHIL % 0.4 % (0.0-4.0); HEMATOCRIT 39.7 % (39.0-51.0); LYMPH % 7.8 % (9.0-44.0); LYMPHOCYTE # 2.1 TH/MM3 (1.0-4.8); MEAN CELL VOLUME 87.6 FL (80.0-100.0); MEAN CORPUSCULAR HGB CONC 33.2 % (32.0-36.0); MONO % 10.6 % (0.0-8.0); NEUT % 80.9 % (16.0-70.0); PLATELET COUNT 131 TH/MM3 (150-450); RED BLOOD COUNT 4.53 MIL/MM3 (4.50-5.90); RED CELL DISTRIBUTION WIDTH 14.8 % (11.6-17.2); WHITE BLOOD COUNT 26.7 TH/MM3 (4.0-11.0)
[2016-09-19 05:32] LABS: HEMO FLAGS AUTO DIFF
[2016-09-19] MEDS: HYDROCORTISONE SOD SUCCINATE 100 MG VIAL IV PUSH SCH ×2 (05:42→21:31)
[2016-09-19] MEDS: metroNIDAZOLE 500 MG INJ 100 ML IV SCH ×3 (05:43→23:14)
[2016-09-19] MEDS: CEFEPIME INJ 2,000 MG in SODIUM CHLORIDE 0.9% INJ 100 ML IV SCH ×3 (05:43→21:30)
--- NOTE | 2016-09-19 06:16 | RADRPT ---
EXAM DATE/TIME: 09/19/2016 05:09 [facility] COMPARISON: CHEST SINGLE AP, September 18, 2016, 14:57. INDICATIONS : Shortness of breath, possible pulmonary disease. MEDICAL HISTORY : Hypertension. Chronic obstructive pulmonary disease. SURGICAL HISTORY : None. ENCOUNTER: Subsequent ACUITY: 2 weeks PAIN SCORE: Non-responsive. LOCATION: Bilateral chest FINDINGS: A single portable frontal view of the chest shows an endotracheal tube with tip 4 cm proximal to the regine. Nasogastric tube courses off the inferior margin of the film. Left sided central line noted. Left thoracostomy tube. No pneumothorax. Scattered areas of parenchymal opacity remains throughout reji th lungs. There is been some progression in the left lung base. No discrete effusions. Heart is mamadou l in size. CONCLUSION: 1. No pneumothorax. 2. Some progression in the bilateral pulmonary infiltrates. Anibal Malhotra Jr., MD on September 19, 2016 at 6:13 Board Certified Radiologist. This report was verified electronically.
[2016-09-19 06:38] LABS: MAGNESIUM 1.9 MG/DL (1.5-2.5); POTASSIUM 3.7 MEQ/L (3.5-5.1)
[2016-09-19] MEDS: CHLORHEXIDINE 0.12% (ORAL KIT) 15 ML CUP MT SCH ×2 (08:00→19:51)
[2016-09-19] MEDS: LORATADINE 10 MG TAB PO SCH (08:03)
[2016-09-19] MEDS: SODIUM CHLORIDE 0.9% FLUSH 10 ML FLUSH IVF SCH (08:03)
[2016-09-19] MEDS: guaiFENesin E.R. 600 MG TAB PO SCH ×2 (08:03→21:00)
[2016-09-19] MEDS: LISINOPRIL 10 MG TAB PO SCH (08:03)
[2016-09-19] MEDS: INSULIN DETEMIR 100 UNITS/ML VIAL SQ SCH ×2 (08:03→21:31)
[2016-09-19] MEDS: PANTOPRAZOLE SODIUM 40 MG VIAL IV PUSH SCH ×2 (08:05→21:31)
[2016-09-19] MEDS: RESP: BUDESONIDE 0.5 MG/2 ML NEB NEB SCH ×2 (08:36→21:13)
[2016-09-19] MEDS: FLUTICASONE PROPIONATE 50 MCG/ACT 16 GM NASAL SPRAY NASAL SCH ×2 (09:00→21:31)
[2016-09-19] MEDS: SODIUM CHLORIDE 0.9% FLUSH 5 ML FLUSH FLUSH SCH ×2 (09:00→21:30)
--- NOTE | 2016-09-19 09:37 | HHI.CCPN ---
Subjective Remarks/Hospital Course This is a 61-year-old male with a past medical history of chronic pancreatitis, hypertension, type 2 diabetes who presented with abdominal pain that started Tuesday. Patient stated that abdominal pain is located in the left lower quadrant and it was very mild. He said over the weekend has worsened in intensity and is constant. Patient stated that he has some nausea that resolves or improves with food. Deny any emesis. Patient also complains of a chronic productive cough that has been the same. He denies any diarrhea or constipation and see that his stools are normal. Patient also denies any fever or chills. She was admitted to hospitalist service and was evaluated subsequently by GI, Dr. Pinto as well as Dr. Henriquez from general surgery in view of abnormal CT abdomen pelvis with left upper quadrant inflammatory change in these and treat with edema and KUBs raising question of SBO. She underwent E lap with lysis of lesions under general anesthesia by Dr. Henriquez on 09/10, EBL 100 cc, received 2 L crystalloid intraoperatively, postop diagnosis small bowel adhesions. Patient was kept intubated postoperatively and transferred to [facility]. I saw the patient shortly after his arrival to the ICU. He had just been started on Versed and fentanyl and dropped his blood pressure to the 60 systolic range. He was ordered a fluid bolus 2 L crystalloids stat and started on Levophed for hypotension. Stat cultures were sent. Patient also is having problem with his O2 sats were dropping in the 80s. Stat chest x-ray was ordered. 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 Patient was requiring 2 mics of Levophed for pressor support. 09/11: Ongoing hypotension and difficulty with oxygenation. Persistent hypotension responsive to volume. CVP 20. Suspect chronic pulmonary hypertension with heavily preload-dependent cardiac output. Will start milrinone for RV support and add vasopressin to levophed prn. Sustained tachycardia prohibits continued escalation of levophed. Underlying lung function is marginal at best. 09/12 0740 hrs: Severe chronic lung disease without significant reserve appears to be the primary pathophysiology here. We were able to produce acceptable cardiac output yesterday with milrinone and vasopressin, minor amounts levophed for peripheral support. He has developed refractory hypoxemia overnight in the 60 - 70% range which is incompatible with survival. Cardiopulmonary dynamics have been maximized and are beginning to deteriorate. Will get another CXR and see if thoracentesis will help lung function. 09/12 1600 hours: Continued difficulty with oxygenation, sats in range 78 - 81% .Cardioverted pharmacologically back to NSR and Flotrac output 7.8. Abdominal pressure 18. At this point he has adequate blood flow and oxygen delivery capacity despite low PO2. We have tried various vent modes and PC/AC appears to work best. SVV is 10; altogether these observations recommend diuresis to help oxygenation. He has horrible diffuse emphysema and a moderate right pleural effusion - may be forced to place a chest tube to allow better lung expansion. 09/13: Improved oxygenation after aggressive diuresis. Renal function remains stable. Alert, responsive. 09.14: Continued good diuresis after lasix. A-aO2 gradient marginally improved. Remains alert. 09/15: Currently afebrile. Almost off norepinephrine drip. Awake and alert and follows commands. FiO2 70%. 09/16: Complaining of air hunger on the ventilator. Currently afebrile. FiO2 back down at 70%. Inspiratory pressure decreased from 18 to 12. 09/17: Awake and alert. Central line was changed to the left side. Afebrile. FiO2 down to 60%. On 2 g per min of norepinephrine. 09/18: Awake and alert. No acute changes overnight. FiO2 was remains at 60%. Tolerating tube feeding. SUBJECTIVE: 09/19: Tmax 99.8. Currently 99. No bowel movement. Tolerating tube feeds. Right chest tube removed yesterday we'll attempt to remove left chest tube today. Awake and alert and following commands. Objective Vital Signs Date Time Temp Pulse Resp B/P Pulse Ox O2 Delivery O2 Flow Rate FiO2 09/19/16 08:42 100 45 09/19/16 08:00 94 09/19/16 08:00 98.5 24 164/88 09/17/16 07:50 Ventilator Intake and Output 09/18/16 09/18/16 09/19/16 08:00 16:00 00:00 Intake Total 959 ml 1597 ml 1252 ml Output Total 1110.0 ml 1255.0 ml 1320.0 ml Balance -151.0 ml 342.0 ml -68.0 ml Result Diagram: 09/19/16 0500 09/19/16 0600 Other Results Microbiology Date/Time Procedure Status Source Growth 09/17/16 22:30 Gram Stain - Final Resulted Sputum Endotracheal 09/17/16 22:30 Sputum Culture - Preliminary Resulted Sputum Endotracheal NO GROWTH IN 24 HOURS. Imaging Last Impressions Chest X-Ray 09/19/16 06 Signed Impressions: Service Date/Time: Monday, September 19, 2016 05:09 - CONCLUSION: 1. No pneumothorax. 2. Some progression in the bilateral pulmonary infiltrates. Anibal Malhotra Jr., MD Abdomen X-Ray 09/09/16 06 Signed Impressions: Service Date/Time: August 04:54 - CONCLUSION: No significant interval change. Persistent upper mid abdomen small bowel dilatation and wall thickening. Filiberto Hall MD Abdomen/Pelvis CT 09/08/16 0000 Signed Impressions: Service Date/Time: Thursday, September 08, 2016 23:45 - CONCLUSION: 1. Marked inflammatory changes of left upper quadrant with severe mesenteric edema and adjacent short segment circumferential wall thickening of mid small bowel and adjacent distal transverse colon. Possible 4 cm abscess adjacent to the mid small bowel wall. Evaluation of intraluminal versus extraluminal fluid in this region is limited as intraluminal contrast is not present in this loop. A delayed scan may be beneficial for clarification. Differential diagnosis includes inflammatory bowel disease and infection. Moderate amount of free fluid similar to prior study. No evidence of free air. 2. Chronic pancreatitis. Filiberto Hall MD ADDENDUM: Delayed images show contrast filling the thickened loops of left upper quadrant small bowel. No evidence of abscess. Findings were discussed with Dr. Henriquez. Filiberto Hall MD Objective Remarks GENERAL: 61-year-old male, critically ill currently in bed appears to be in no acute stress SKIN: Warm and dry. No rash HEAD: Atraumatic. Normocephalic. EYES: Pupils equal and round about 3 mm bilaterally and reactive. No scleral icterus. No injection or drainage. ENT: No nasal bleeding or discharge. Mucous membranes pink and moist. NECK: Trachea midline. No JVD. Orotracheally intubated. Left IJ clean dry and intact CARDIOVASCULAR: RRR. S1, S2. No S4. Without murmur. RESPIRATORY: Diminished breath sounds throughout. No rhonchi appreciated. No end expiratory wheeze. Bilateral chest tubes removed covered with foam tape GASTROINTESTINAL: Abdomen slightly tender palpation. Normoactive bowel sounds. Incisional sutures intact without erythema or dehiscence. No drainage. ROSHAN drain positive serosanguineous drainage -255 MUSCULOSKELETAL: Extremities with trace to 1+ lower extremity peripheral edema. No obvious deformities. NEUROLOGICAL: Awake and alert. No obvious cranial nerve deficits. Motor grossly within normal limits. Five out of 5 muscle strength in the arms and legs. Normal speech. Vascular Central Line Catheter: Yes Assessment to: Continue Date of Insertion: Sep 16, 2016 Line: Central Venous Catheter Side: Left Location: Internal, Jugular A/P Assessment and Plan Neuro/Psych: Currently on a fentanyl drip at 75 g an hour for analgesia while intubated. We have Precedex as the patient causing more hypotension then relieving his anxiety. Goal of RASS -2 - 0 Daily sedation vacation Appears comfortable on the ventilator CV: Large A-a gradient A. 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 Wean off the next couple days. Resp: Acute hypoxemic respiratory failure Severe COPD Pleural effusion status post bilateral chest tubes PC/AC 18/iP 12/iT 0.9/8/40 Ventilator bundle Bronchodilator therapy every 4 hours with albuterol every 2 hours for breakthrough dyspnea [place] twice a day Followed by /pulmonology Status post chest tube. Follow chest x-ray in a.m. Right chest tube discontinued 3/5 Left chest tube will be discontinued today. Currently waterseal with -58 SS Likely will need tracheostomy but marked improvement past 48 hours. GI: Postop day #9 exploratory lap lysis of adhesions - Dr. Henriquez Chronic pancreatitis Abdominal ascites Internal hemorrhoids Elevated transaminases Status post EGD by GI. - Pathology revealed chronic gastritis inflammation Says post colonoscopy by GI 09/06 -incomplete splenic flexure normal mucosa. Internal hemorrhoids. ROSHAN -400 Currently TPN at 30 cc an hour with lipids 20% at 10 cc an hour Trickle feeds to be initiated by surgery today currently Glucerna 1.5 at 30 cc an hour with a goal of 60 cc an hour. Verbal Report from nurse that no advance her tube feeding until bowel movement from Dr. Henriquez Protonix 40 mg IV twice a day Recheck LFTs in a.m. slowly trending downward. : Tavarez has been placed for accurate I's and O's in a critically ill patient Endo: Diabetes mellitus Sliding-scale insulin with Accu-Cheks every 4 hours maintain euglycemia. We'll change her aggressive sliding scale with Accu-Cheks every 4 hours. Levemir 8 units twice a day. 10 units sliding-scale insulin past 24 hours Holding home medication glipizide 10 mg by mouth daily Renal: Accurate I's and O's Monitor urine output BMP currently within normal limits Heme: Leukocytosis Anemia Daily CBC/CMP. Remains elevated ID: Currently on Maxipime, Flagyl and Diflucan Infectious disease actively following. Pertinent cultures 09/17 - sputum - no growth 09/11 - blood culture - no growth 09/10 - blood culture 2 - no growth 09/10 - urine - no growth 09/02 - blood culture 2 - no growth FEN: Hypernatremia sodium 146 Replace electrolytes as clinically indicated per ICU electrolyte protocol MSK: PT/OT evaluate and treat Access - Right IJ CVL placed 09/08-09/16 - Left IJ CVL 09/16 at present Prophylaxis - GI - Protonix IV twice a day - DVT - SCD/pharmacological prophylaxis when okayed by surgery Critical Care: The total critical care time was 35 minutes. Time to perform other separately billable procedures was not included in the critical care time. Wilder Humphrey MD Sep 19, 2016 09:37
[2016-09-19] MEDS: FLUCONAZOLE 400 MG PREMIX BAG 200 ML IV SCH (11:37)
[2016-09-19 12:07] LABS: BANDS 1 % (0-6); CORRECTED NUCLEATED RBC 1 /100 WBC (0-0); EOSINOPHILS 1 % (0-4); METAMYELOCYTES 2 % (0-1); NEUTROPHIL # MANUAL DIFF 21.1 TH/MM3 (1.8-7.7); PLATELET ESTIMATE SMEAR LOW (NORMAL); PLATELET MORPHOLOGY NORMAL (NORMAL); POLYS (SEG NEUTROPHILS) 76 % (16-70); SCAN/DIFF FINAL DIFF MANUAL; WBC DIFF SAMPLE 100
--- NOTE | 2016-09-19 14:51 | RADRPT ---
EXAM DATE/TIME: 09/19/2016 13:35 [place] COMPARISON: CHEST SINGLE AP, September 19, 2016, 5:09. INDICATIONS : Removal of left chest tube. MEDICAL HISTORY : Hypertension. Chronic obstructive pulmonary disease. SURGICAL HISTORY : None. ENCOUNTER: Subsequent ACUITY: 3 weeks PAIN SCORE: Non-responsive. LOCATION: Chest. FINDINGS: Single view of the thorax demonstrates overall improved aeration of the lungs with persistent mild bi lateral patchy airspace opacities. There is an orogastric tube identified overlying the stomach. Ther e is a radiopaque line identified with the tip at the level of the clavicles which has the appearance of an endotracheal tube. CONCLUSION: Improved lung exam. Question presence of endotracheal tube with the tip at the level of the clavicles . Carrie Olvera MD on September 19, 2016 at 14:48 Board Certified Radiologist. This report was verified electronically.
[2016-09-19] MEDS: ENOXAPARIN SODIUM 40 MG/0.4 ML SYRINGE SQ SCH (17:54)
[2016-09-19] MEDS: CLINIMIX E 5/25 1000 mL- </= 42 mls/hr IV-CENTRAL SCH ×3 (19:50)
[2016-09-19] MEDS: FAT EMULSION 20% INJ 250 ML (@10 mls/hr) IV-CENTRAL SCH (19:50)
--- NOTE | 2016-09-19 23:41 | HHI.PR ---
Subjective Subjective Notes KERMIT intubated Objective Vitals/I&O Vital Signs Date Time Temp Pulse Resp B/P Pulse Ox O2 Delivery O2 Flow Rate FiO2 09/19/16 22:22 98 45 09/19/16 22:00 80 09/19/16 20:00 98.6 18 132/79 09/17/16 07:50 Ventilator Labs Laboratory Tests Test 09/19/16 09/19/16 05:00 06:00 White Blood Count 26.7 Red Blood Count 4.53 Hemoglobin 13.2 Hematocrit 39.7 Mean Corpuscular Volume 87.6 Mean Corpuscular Hemoglobin 29.0 Mean Corpuscular Hemoglobin 33.2 Concent Red Cell Distribution Width 14.8 Platelet Count 131 Mean Platelet Volume 10.4 Neutrophils (%) (Auto) 80.9 Lymphocytes (%) (Auto) 7.8 Monocytes (%) (Auto) 10.6 Eosinophils (%) (Auto) 0.4 Basophils (%) (Auto) 0.3 Neutrophils # (Auto) 21.6 Lymphocytes # (Auto) 2.1 Monocytes # (Auto) 2.8 Eosinophils # (Auto) 0.1 Basophils # (Auto) 0.1 CBC Comment AUTO DIFF Differential Total Cells 100 Counted Neutrophils % (Manual) 76 Band Neutrophils % 1 Lymphocytes % 11 Monocytes % 9 Eosinophils % 1 Neutrophils # (Manual) 21.1 Metamyelocytes 2 Nucleated Red Blood Cells 1 Differential Comment FINAL DIFF MANUAL Platelet Estimate LOW Platelet Morphology Comment NORMAL Red Cell Morphology Comment NORMAL Sodium Level 146 Potassium Level 3.7 Chloride Level 107 Carbon Dioxide Level 32.0 Anion Gap 7 Blood Urea Nitrogen 35 Creatinine 0.68 Estimat Glomerular Filtration 119 Rate Random Glucose 140 Calcium Level 7.7 Phosphorus Level 2.7 Magnesium Level 1.9 Date/Time Procedure Status Source Growth 09/17/16 22:30 Gram Stain - Final Complete Sputum Endotracheal 09/17/16 22:30 Sputum Culture - Final Complete Sputum Endotracheal NO GROWTH IN 48 HOURS. Radiology Last Impressions Chest X-Ray 09/12/16 0000 Signed Impressions: Service Date/Time: Monday, September 12, 2016 07:39 - CONCLUSION: Bibasilar airspace disease and bilateral pleural effusions larger on the right. Zechariah Sims MD Abdomen X-Ray 09/09/16 0600 Signed Impressions: Service Date/Time: August 04:54 - CONCLUSION: No significant interval change. Persistent upper mid abdomen small bowel dilatation and wall thickening. Filiberto Hall MD Abdomen/Pelvis CT 09/08/16 0000 Signed Impressions: Service Date/Time: Thursday, September 08, 2016 23:45 - CONCLUSION: 1. Marked inflammatory changes of left upper quadrant with severe mesenteric edema and adjacent short segment circumferential wall thickening of mid small bowel and adjacent distal transverse colon. Possible 4 cm abscess adjacent to the mid small bowel wall. Evaluation of intraluminal versus extraluminal fluid in this region is limited as intraluminal contrast is not present in this loop. A delayed scan may be beneficial for clarification. Differential diagnosis includes inflammatory bowel disease and infection. Moderate amount of free fluid similar to prior study. No evidence of free air. 2. Chronic pancreatitis. Filiberto Hall MD ADDENDUM: Delayed images show contrast filling the thickened loops of left upper quadrant small bowel. No evidence of abscess. Findings were discussed with Dr. Henriquez. Filiberto Hall MD Cardiovascular: Regular Lungs: Clear Abdomen: Non-distended, Non-tender Extremities: No edema, Perfused A/P Problem List: (1) Sepsis (2) COPD (chronic obstructive pulmonary disease) (3) Hypokalemia (4) Hyponatremia (5) Abdominal pain (6) Enteritis (7) Ileus (8) Leukocytosis (9) Diabetes (10) Systemic inflammatory response syndrome (SIRS) Assessment and Plan 61yo male s/p ExLap, LUCY, stable. - intubated, vent weaning - TPN - diet once extubated Problem Qualifiers (1) Leukocytosis: Qualified Code: D72.829 - Leukocytosis, unspecified type John Sarmiento MD Sep 19, 2016 23:41
[2016-09-20] VITALS (20 sets, daily range): BP systolic 140–163; BP diastolic 72–86; PULSE 80–108; RESP 3–29; TEMP 98.5–99.4; O2SAT 89–99
[2016-09-20] MEDS: RESP: ALBUTEROL 2.5 MG/IPRATROPIUM 0.5 MG NEB (SCH) NEB ×4 (04:14→20:49)
[2016-09-20 04:16] LABS: HEMATOCRIT 39.9 % (39.0-51.0); MEAN CELL VOLUME 86.1 FL (80.0-100.0); MEAN CORPUSCULAR HGB CONC 33.7 % (32.0-36.0); PLATELET COUNT 145 TH/MM3 (150-450); RED BLOOD COUNT 4.63 MIL/MM3 (4.50-5.90); RED CELL DISTRIBUTION WIDTH 14.5 % (11.6-17.2); WHITE BLOOD COUNT 23.8 TH/MM3 (4.0-11.0)
[2016-09-20 04:18] LABS: HEMO FLAGS AUTO DIFF
[2016-09-20 04:30] LABS: ALT (GPT) 121 U/L (12-78); ANION GAP 5 MEQ/L (5-15); AST (GOT) 52 U/L (15-37); BLOOD UREA NITROGEN 33 MG/DL (7-18); CHLORIDE 107 MEQ/L (98-107); GLOMERULAR FILTRATION RATE 119 ML/MIN (>89); MAGNESIUM 1.8 MG/DL (1.5-2.5); POTASSIUM 3.2 MEQ/L (3.5-5.1); SODIUM (NA) 147 MEQ/L (136-145)
[2016-09-20 04:31] LABS: ALKALINE PHOSPHATASE 60 U/L (45-117); TOTAL BILIRUBIN ADULT 0.4 MG/DL (0.2-1.0)
[2016-09-20] MEDS: CEFEPIME INJ 2,000 MG in SODIUM CHLORIDE 0.9% INJ 100 ML IV SCH ×3 (04:56→21:02)
[2016-09-20] MEDS: INSULIN NovoLIN REGULAR SUPPLEMENTAL SCALE SQ SCH ×6 (04:57→20:00)
[2016-09-20 05:43] LABS: BANDS 1 % (0-6); EOSINOPHILS 2 % (0-4); METAMYELOCYTES 3 % (0-1); NEUTROPHIL # MANUAL DIFF 17.4 TH/MM3 (1.8-7.7); POLYS (SEG NEUTROPHILS) 69 % (16-70); WBC DIFF SAMPLE 100
[2016-09-20 05:44] LABS: PLATELET ESTIMATE SMEAR LOW (NORMAL); PLATELET MORPHOLOGY NORMAL (NORMAL); SCAN/DIFF FINAL DIFF MANUAL
[2016-09-20] MEDS: metroNIDAZOLE 500 MG INJ 100 ML IV SCH ×3 (06:40→22:23)
[2016-09-20] MEDS: POTASSIUM CHLOR 40 MEQ PREMIX 100 ML IV PRN ×2 (06:53→09:09)
[2016-09-20] MEDS: CHLORHEXIDINE 0.12% (ORAL KIT) 15 ML CUP MT SCH ×2 (08:00→21:02)
[2016-09-20] MEDS: RESP: BUDESONIDE 0.5 MG/2 ML NEB NEB SCH ×2 (08:37→20:49)
--- NOTE | 2016-09-20 08:58 | HHI.PR ---
Subjective Subjective Notes Intubated Mouths words Answers yes/no questions appropriately Objective Vitals/I&O Vital Signs Date Time Temp Pulse Resp B/P Pulse Ox O2 Delivery O2 Flow Rate FiO2 09/20/16 08:40 99 45 09/20/16 08:00 98.9 93 24 147/84 09/17/16 07:50 Ventilator Labs Laboratory Tests Test 09/20/16 04:05 White Blood Count 23.8 Red Blood Count 4.63 Hemoglobin 13.4 Hematocrit 39.9 Mean Corpuscular Volume 86.1 Mean Corpuscular Hemoglobin 29.0 Mean Corpuscular Hemoglobin 33.7 Concent Red Cell Distribution Width 14.5 Platelet Count 145 Mean Platelet Volume 10.3 Neutrophils (%) (Auto) Lymphocytes (%) (Auto) Monocytes (%) (Auto) Eosinophils (%) (Auto) Basophils (%) (Auto) Neutrophils # (Auto) Lymphocytes # (Auto) Monocytes # (Auto) Eosinophils # (Auto) Basophils # (Auto) CBC Comment AUTO DIFF Differential Total Cells 100 Counted Neutrophils % (Manual) 69 Band Neutrophils % 1 Lymphocytes % 15 Monocytes % 10 Eosinophils % 2 Neutrophils # (Manual) 17.4 Metamyelocytes 3 Differential Comment FINAL DIFF MANUAL Platelet Estimate LOW Platelet Morphology Comment NORMAL Red Cell Morphology Comment NORMAL Sodium Level 147 Potassium Level 3.2 Chloride Level 107 Carbon Dioxide Level 35.0 Anion Gap 5 Blood Urea Nitrogen 33 Creatinine 0.68 Estimat Glomerular Filtration 119 Rate Random Glucose 154 Calcium Level 7.8 Phosphorus Level 2.2 Magnesium Level 1.8 Total Bilirubin 0.4 Aspartate Amino Transf 52 (AST/SGOT) Alanine Aminotransferase 121 (ALT/SGPT) Alkaline Phosphatase 60 Total Protein 5.2 Albumin 2.0 Date/Time Procedure Status Source Growth 09/17/16 22:30 Gram Stain - Final Complete Sputum Endotracheal 09/17/16 22:30 Sputum Culture - Final Complete Sputum Endotracheal NO GROWTH IN 48 HOURS. Radiology Last Impressions Chest X-Ray 09/12/16 0000 Signed Impressions: Service Date/Time: Monday, September 12, 2016 07:39 - CONCLUSION: Bibasilar airspace disease and bilateral pleural effusions larger on the right. Zechariah Sims MD Abdomen X-Ray 09/09/16 0600 Signed Impressions: Service Date/Time: August 04:54 - CONCLUSION: No significant interval change. Persistent upper mid abdomen small bowel dilatation and wall thickening. Filiberto Hall MD Abdomen/Pelvis CT 09/08/16 0000 Signed Impressions: Service Date/Time: Thursday, September 08, 2016 23:45 - CONCLUSION: 1. Marked inflammatory changes of left upper quadrant with severe mesenteric edema and adjacent short segment circumferential wall thickening of mid small bowel and adjacent distal transverse colon. Possible 4 cm abscess adjacent to the mid small bowel wall. Evaluation of intraluminal versus extraluminal fluid in this region is limited as intraluminal contrast is not present in this loop. A delayed scan may be beneficial for clarification. Differential diagnosis includes inflammatory bowel disease and infection. Moderate amount of free fluid similar to prior study. No evidence of free air. 2. Chronic pancreatitis. Filiberto Hall MD ADDENDUM: Delayed images show contrast filling the thickened loops of left upper quadrant small bowel. No evidence of abscess. Findings were discussed with Dr. Henriquez. Filiberto Hall MD Cardiovascular: Regular Lungs: Clear Abdomen: Other (midline incision with small about of drainage at inferior portion of incision; ROSHAN x1 with SS drainage; adb mildly distended but non tender ) Extremities: SCD's on A/P Problem List: (1) Sepsis (2) COPD (chronic obstructive pulmonary disease) (3) Hypokalemia (4) Hyponatremia (5) Abdominal pain (6) Enteritis (7) Ileus (8) Leukocytosis (9) Diabetes (10) Systemic inflammatory response syndrome (SIRS) Assessment and Plan 61 year old male POD10 Exploratory Laparotomy, lysis of adhesions -Vent per CCM; vent settings decreased ti 45% and 8 of PEEP -TPN---will wean as TF increases -Advance TF as tolerated -Patient remains critically ill -Monitor ROSHAN output Attending Note - Dr. Henriquez Chest clear Lizbeth intact ROSHAN output serous; >150ml/shift still Continue TF at 60ml/hr if tolerated Vent weaning The exam, history, and the medical decision-making described in the above note were completed with the assistance of the mid-level provider. I reviewed and agree with the findings presented. I attest that I had a [id number] encounter with the patient on the same day, and personally performed and documented my assessment and findings in the medical record. Problem Qualifiers (1) Leukocytosis: Qualified Code: D72.829 - Leukocytosis, unspecified type Charisma Larson Sep 20, 2016 08:58 Bret Henriquez MD Sep 21, 2016 10:12
[2016-09-20] MEDS: guaiFENesin E.R. 600 MG TAB PO SCH ×2 (09:00→21:02)
[2016-09-20] MEDS: INSULIN DETEMIR 100 UNITS/ML VIAL SQ SCH ×2 (09:00→21:02)
[2016-09-20] MEDS: FLUTICASONE PROPIONATE 50 MCG/ACT 16 GM NASAL SPRAY NASAL SCH ×2 (09:00→21:22)
[2016-09-20] MEDS: LORATADINE 10 MG TAB PO SCH (09:00)
[2016-09-20] MEDS: SODIUM CHLORIDE 0.9% FLUSH 10 ML FLUSH IVF SCH (09:00)
[2016-09-20] MEDS: SODIUM CHLORIDE 0.9% FLUSH 5 ML FLUSH FLUSH SCH ×2 (09:08→21:20)
[2016-09-20] MEDS: PANTOPRAZOLE SODIUM 40 MG VIAL IV PUSH SCH ×2 (09:09→21:01)
[2016-09-20] MEDS: HYDROCORTISONE SOD SUCCINATE 100 MG VIAL IV PUSH SCH ×2 (09:09→21:02)
[2016-09-20] MEDS: LISINOPRIL 10 MG TAB PO SCH (09:11)
--- NOTE | 2016-09-20 09:32 | HHI.CCPN ---
Subjective Remarks/Hospital Course This is a 61-year-old male with a past medical history of chronic pancreatitis, hypertension, type 2 diabetes who presented with abdominal pain that started Tuesday. Patient stated that abdominal pain is located in the left lower quadrant and it was very mild. He said over the weekend has worsened in intensity and is constant. Patient stated that he has some nausea that resolves or improves with food. Deny any emesis. Patient also complains of a chronic productive cough that has been the same. He denies any diarrhea or constipation and see that his stools are normal. Patient also denies any fever or chills. She was admitted to hospitalist service and was evaluated subsequently by GI, Dr. Pinto as well as Dr. Henriquez from general surgery in view of abnormal CT abdomen pelvis with left upper quadrant inflammatory change in these and treat with edema and KUBs raising question of SBO. She underwent E lap with lysis of lesions under general anesthesia by Dr. Henriquez on 09/10, EBL 100 cc, received 2 L crystalloid intraoperatively, postop diagnosis small bowel adhesions. Patient was kept intubated postoperatively and transferred to [facility]. I saw the patient shortly after his arrival to the ICU. He had just been started on Versed and fentanyl and dropped his blood pressure to the 60 systolic range. He was ordered a fluid bolus 2 L crystalloids stat and started on Levophed for hypotension. Stat cultures were sent. Patient also is having problem with his O2 sats were dropping in the 80s. Stat chest x-ray was ordered. While waiting for chest x-ray, ET tube submersible pilot balloon appeared damaged hence cuff was not holding air so patient was sedated with Etomidate/ Fentanyl/ Rocuronium and ET tube was changed over a tube exchanger which was confirmed with a postprocedure chest x-ray with satisfactory placement of ET tube, right IJ central line in place, bilateral interstitial infiltrates with hyperinflated lung rothman, no pneumothorax. Patient was requiring 2 mics of Levophed for pressor support. 09/11: Ongoing hypotension and difficulty with oxygenation. Persistent hypotension responsive to volume. CVP 20. Suspect chronic pulmonary hypertension with heavily preload-dependent cardiac output. Will start milrinone for RV support and add vasopressin to levophed prn. Sustained tachycardia prohibits continued escalation of levophed. Underlying lung function is marginal at best. 09/12 0740 hrs: Severe chronic lung disease without significant reserve appears to be the primary pathophysiology here. We were able to produce acceptable cardiac output yesterday with milrinone and vasopressin, minor amounts levophed for peripheral support. He has developed refractory hypoxemia overnight in the 60 - 70% range which is incompatible with survival. Cardiopulmonary dynamics have been maximized and are beginning to deteriorate. Will get another CXR and see if thoracentesis will help lung function. 09/12 1600 hours: Continued difficulty with oxygenation, sats in range 78 - 81% .Cardioverted pharmacologically back to NSR and Flotrac output 7.8. Abdominal pressure 18. At this point he has adequate blood flow and oxygen delivery capacity despite low PO2. We have tried various vent modes and PC/AC appears to work best. SVV is 10; altogether these observations recommend diuresis to help oxygenation. He has horrible diffuse emphysema and a moderate right pleural effusion - may be forced to place a chest tube to allow better lung expansion. 09/13: Improved oxygenation after aggressive diuresis. Renal function remains stable. Alert, responsive. 09.14: Continued good diuresis after lasix. A-aO2 gradient marginally improved. Remains alert. 09/15: Currently afebrile. Almost off norepinephrine drip. Awake and alert and follows commands. FiO2 70%. 09/16: Complaining of air hunger on the ventilator. Currently afebrile. FiO2 back down at 70%. Inspiratory pressure decreased from 18 to 12. 09/17: Awake and alert. Central line was changed to the left side. Afebrile. FiO2 down to 60%. On 2 g per min of norepinephrine. 09/18: Awake and alert. No acute changes overnight. FiO2 was remains at 60%. Tolerating tube feeding. SUBJECTIVE: 09/19: Tmax 99.8. Currently 99. No bowel movement. Tolerating tube feeds. Right chest tube removed yesterday we'll attempt to remove left chest tube today. Awake and alert and following commands. 09/20: Orally intubated on mechanical ventilation. Off sedation he is awake and alert following commands. Objective Vital Signs Date Time Temp Pulse Resp B/P Pulse Ox O2 Delivery O2 Flow Rate FiO2 09/20/16 08:40 99 45 09/20/16 08:00 98.9 93 24 147/84 09/17/16 07:50 Ventilator Intake and Output 09/19/16 09/19/16 09/20/16 08:00 16:00 00:00 Intake Total 1115 ml 1063 ml 1039 ml Output Total 1388.0 ml 1675.0 ml 1785.0 ml Balance -273.0 ml -612.0 ml -746.0 ml Result Diagram: 09/20/165 09/20/16 0405 Other Results Microbiology Date/Time Procedure Status Source Growth 09/17/16 22:30 Gram Stain - Final Complete Sputum Endotracheal 09/17/16 22:30 Sputum Culture - Final Complete Sputum Endotracheal NO GROWTH IN 48 HOURS. Imaging Last Impressions Chest X-Ray 09/19/16 0600 Signed Impressions: Service Date/Time: Monday, September 19, 2016 05:09 - CONCLUSION: 1. No pneumothorax. 2. Some progression in the bilateral pulmonary infiltrates. Anibal Malhotra Jr., MD Abdomen X-Ray 09/09/16 0600 Signed Impressions: Service Date/Time: August 04:54 - CONCLUSION: No significant interval change. Persistent upper mid abdomen small bowel dilatation and wall thickening. Filiberto Hall MD Abdomen/Pelvis CT 09/08/16 0000 Signed Impressions: Service Date/Time: Thursday, September 08, 2016 23:45 - CONCLUSION: 1. Marked inflammatory changes of left upper quadrant with severe mesenteric edema and adjacent short segment circumferential wall thickening of mid small bowel and adjacent distal transverse colon. Possible 4 cm abscess adjacent to the mid small bowel wall. Evaluation of intraluminal versus extraluminal fluid in this region is limited as intraluminal contrast is not present in this loop. A delayed scan may be beneficial for clarification. Differential diagnosis includes inflammatory bowel disease and infection. Moderate amount of free fluid similar to prior study. No evidence of free air. 2. Chronic pancreatitis. Filiberto Hall MD ADDENDUM: Delayed images show contrast filling the thickened loops of left upper quadrant small bowel. No evidence of abscess. Findings were discussed with Dr. Henriquez. Filiberto Hall MD Objective Remarks GENERAL: 61-year-old male, currently in bed, remains orally intubated on mechanical ventilation SKIN: Warm and dry. No rash HEAD: Atraumatic. Normocephalic. EYES: Pupils equal and round about 3 mm bilaterally and reactive. No scleral icterus. No injection or drainage. ENT: No nasal bleeding or discharge. Mucous membranes pink and moist. NECK: Trachea midline. No JVD. Orotracheally intubated. Left IJ clean dry and intact CARDIOVASCULAR: RRR. S1, S2. No S4. Without murmur. RESPIRATORY: Orally intubated on mechanical ventilation, Diminished breath sounds throughout. No rhonchi appreciated. No end expiratory wheeze. GASTROINTESTINAL: Abdomen slightly tender palpation. Normoactive bowel sounds. Incisional sutures intact without erythema or dehiscence. No drainage. ROSHAN drain positive serosanguineous drainage MUSCULOSKELETAL: Extremities with trace to 1+ lower extremity peripheral edema. No obvious deformities. NEUROLOGICAL: Awake and alert. No obvious cranial nerve deficits. Motor grossly within normal limits. Five out of 5 muscle strength in the arms and legs. Date of Insertion: Sep 16, 2016 Line: Central Venous Catheter Side: Left Location: Internal, Jugular A/P Assessment and Plan Neuro/Psych: Currently on a fentanyl drip at 75 g an hour for analgesia while intubated. Precedex off as it was causing more hypotension then relieving his anxiety. Goal of RASS -2 - 0 Daily sedation vacation Appears comfortable on the ventilator CV: Large A-a gradient A. 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 Wean off the next couple days. Resp: Acute hypoxemic respiratory failure Severe COPD Pleural effusion status post bilateral chest tubes PC/AC 18/iP 12/iT 0.9/8/40 Ventilator bundle Bronchodilator therapy every 4 hours with albuterol every 2 hours for breakthrough dyspnea Pulmacort twice a day Followed by /pulmonology Status post chest tube. Follow chest x-ray in a.m. Right chest tube discontinued 09/18 Left chest tube discontinued 09/19 May need tracheostomy. Initiate C Pap trials. GI: Postop day #10 exploratory lap lysis of adhesions - Dr. Henriquez Chronic pancreatitis Abdominal ascites Internal hemorrhoids Elevated transaminases Status post EGD by GI. - Pathology revealed chronic gastritis inflammation Says post colonoscopy by GI 09/06 -incomplete splenic flexure normal mucosa. Internal hemorrhoids. ROSHAN drain in place Currently TPN at 30 cc an hour with lipids 20% at 10 cc an hour Trickle feeds initiated by surgery 09/19 currently Glucerna 1.5 at 30 cc an hour with a goal of 60 cc an hour. Verbal Report from nurse that no advance her tube feeding until bowel movement from Dr. Henriquez Protonix 40 mg IV twice a day Recheck LFTs in a.m. slowly trending downward. : Tavarez has been placed for accurate I's and O's in a critically ill patient Endo: Diabetes mellitus Sliding-scale insulin with Accu-Cheks every 4 hours maintain euglycemia. Levemir 8 units twice a day. 10 units sliding-scale insulin past 24 hours Holding home medication glipizide 10 mg by mouth daily Renal: Accurate I's and O's Monitor urine output BMP currently within normal limits Heme: Leukocytosis Anemia Daily CBC/CMP. Remains elevated ID: Currently on Maxipime, Flagyl and Diflucan Infectious disease actively following. Pertinent cultures 09/17 - sputum - no growth 09/11 - blood culture - no growth 09/10 - blood culture 2 - no growth 09/10 - urine - no growth 09/02 - blood culture 2 - no growth FEN: Hypernatremia Replace electrolytes as clinically indicated per ICU electrolyte protocol MSK: PT/OT evaluate and treat Access - Right IJ CVL placed 09/08-09/16 - Left IJ CVL 09/16 at present Prophylaxis - GI - Protonix IV twice a day - DVT - SCD/pharmacological prophylaxis when okayed by surgery Critical Care: The total critical care time was 35 minutes. Time to perform other separately billable procedures was not included in the critical care time. Solomon Morales MD Sep 20, 2016 09:32
[2016-09-20] MEDS: POTASSIUM PHOSPHATE INJ 30 MMOL in SODIUM CHLOR 0.9% 250 ML INJ 250 ML IV PRN (09:41)
--- NOTE | 2016-09-20 10:42 | HHI.IDPN ---
Subjective Subjective Remarks Notes reviewed D/W RN On the vent, tolerating CPAP CT all out No abdominal pain WBC still up but lower Moves all 4 extremities. 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 Cleared per Infection Control. Patient does not require isolation for hx of MRSA prior to 09/10/15. Objective . Vital Signs Date Time Temp Pulse Resp B/P Pulse Ox O2 Delivery O2 Flow Rate FiO2 09/20/16 10:00 108 09/20/16 08:40 99 45 09/20/16 08:00 98.9 93 24 147/84 91 09/20/16 08:00 93 09/20/16 08:00 45 09/20/16 06:00 87 09/20/16 04:10 93 45 09/20/16 04:00 45 09/20/16 04:00 98.5 86 23 150/84 93 09/20/16 04:00 86 09/20/16 02:00 82 09/20/16 00:20 90 45 09/20/16 00:00 98.7 83 3 140/72 93 09/20/16 00:00 45 09/20/16 00:00 80 09/19/16 22:22 98 45 09/19/16 22:00 80 09/19/16 20:11 99 45 09/19/16 20:00 45 09/19/16 20:00 98.6 85 18 132/79 99 09/19/16 20:00 78 09/19/16 16:00 98.4 95 21 149/74 98 09/19/16 16:00 95 09/19/16 15:47 96 45 09/19/16 12:00 98.5 100 20 155/89 98 09/19/16 12:00 100 09/19/16 10:58 90 45 09/19/16 09/19/16 09/20/16 15:00 23:00 07:00 Intake Total 1063 ml 1039 ml 868 ml Output Total 1675 ml 1785 ml 1235 ml Balance -612 ml -746 ml -367 ml IV Total 481 ml 428 ml 319 ml Tube Feeding 275 ml 281 ml 231 ml TPN/PPN 236 ml 248 ml 239 ml Lipid 71 ml 82 ml 79 ml Output Urine Total 1600 ml 1700 ml 1150 ml Gastric Drainage Total 0 ml Tube Feeding Residual Discard 0 ml 0 ml 0 ml Drainage Total 75 ml 85 ml 85 ml # Bowel Movements 0 0 . Laboratory Tests Test 09/19/16 09/20/16 05:00 04:05 White Blood Count 26.7 TH/MM3 23.8 TH/MM3 Red Blood Count 4.53 MIL/MM3 4.63 MIL/MM3 Hemoglobin 13.2 GM/DL 13.4 GM/DL Hematocrit 39.7 % 39.9 % Mean Corpuscular Volume 87.6 FL 86.1 FL Mean Corpuscular Hemoglobin 29.0 PG 29.0 PG Mean Corpuscular Hemoglobin 33.2 % 33.7 % Concent Red Cell Distribution Width 14.8 % 14.5 % Platelet Count 131 TH/MM3 145 TH/MM3 Mean Platelet Volume 10.4 FL 10.3 FL Neutrophils (%) (Auto) 80.9 % % Lymphocytes (%) (Auto) 7.8 % % Monocytes (%) (Auto) 10.6 % % Eosinophils (%) (Auto) 0.4 % % Basophils (%) (Auto) 0.3 % % Neutrophils # (Auto) 21.6 TH/MM3 TH/MM3 Lymphocytes # (Auto) 2.1 TH/MM3 TH/MM3 Monocytes # (Auto) 2.8 TH/MM3 TH/MM3 Eosinophils # (Auto) 0.1 TH/MM3 TH/MM3 Basophils # (Auto) 0.1 TH/MM3 TH/MM3 CBC Comment AUTO DIFF AUTO DIFF Differential Total Cells 100 100 Counted Neutrophils % (Manual) 76 % 69 % Band Neutrophils % 1 % 1 % Lymphocytes % 11 % 15 % Monocytes % 9 % 10 % Eosinophils % 1 % 2 % Neutrophils # (Manual) 21.1 TH/MM3 17.4 TH/MM3 Metamyelocytes 2 % 3 % Nucleated Red Blood Cells 1 /100 WBC Differential Comment FINAL DIFF FINAL DIFF MANUAL MANUAL Platelet Estimate LOW LOW Platelet Morphology Comment NORMAL NORMAL Red Cell Morphology Comment NORMAL NORMAL Laboratory Tests Test 09/19/16 09/20/16 06:00 04:05 Sodium Level 146 MEQ/L 147 MEQ/L Potassium Level 3.7 MEQ/L 3.2 MEQ/L Chloride Level 107 MEQ/L 107 MEQ/L Carbon Dioxide Level 32.0 MEQ/L 35.0 MEQ/L Anion Gap 7 MEQ/L 5 MEQ/L Blood Urea Nitrogen 35 MG/DL 33 MG/DL Creatinine 0.68 MG/DL 0.68 MG/DL Estimat Glomerular Filtration 119 ML/MIN 119 ML/MIN Rate Random Glucose 140 MG/DL 154 MG/DL Calcium Level 7.7 MG/DL 7.8 MG/DL Phosphorus Level 2.7 MG/DL 2.2 MG/DL Magnesium Level 1.9 MG/DL 1.8 MG/DL Total Bilirubin 0.4 MG/DL Aspartate Amino Transf 52 U/L (AST/SGOT) Alanine Aminotransferase 121 U/L (ALT/SGPT) Alkaline Phosphatase 60 U/L Total Protein 5.2 GM/DL Albumin 2.0 GM/DL Microbiology Date/Time Procedure Status Source Growth 09/17/16 22:30 Gram Stain - Final Complete Sputum Endotracheal 09/17/16 22:30 Sputum Culture - Final Complete Sputum Endotracheal NO GROWTH IN 48 HOURS. Imaging Chest X-Ray 09/17/16 0600 Signed Impressions: Service Date/Time: Saturday, September 17, 2016 05:37 - CONCLUSION: 1. No pneumothoraces. 2. Unchanged bibasilar consolidation. Anibal Malhotra Jr., MD Chest X-Ray 09/16/16 1504 Signed Impressions: Service Date/Time: August 15:12 - CONCLUSION: Central line placement without pneumothorax. Gumaro Correa MD Chest X-Ray 09/16/16 0600 Signed Impressions: Service Date/Time: August 02:16 - CONCLUSION: No significant change has occurred. John Payne MD Chest X-Ray 09/14/16 1200 Signed Impressions: Service Date/Time: Wednesday, September 14, 2016 12:25 - CONCLUSION: 1. No pneumothorax. 2. Multiple tubes and lines are stable. 3. Scattered patchy infiltrates bilaterally. Jostin Crow MD Chest X-Ray 09/12/16 0000 Signed Impressions: Service Date/Time: Monday, September 12, 2016 07:39 - CONCLUSION: Bibasilar airspace disease and bilateral pleural effusions larger on the right. Zechariah Sims MD Abdomen X-Ray 09/09/16 0600 Signed Impressions: Service Date/Time: August 04:54 - CONCLUSION: No significant interval change. Persistent upper mid abdomen small bowel dilatation and wall thickening. Filiberto Hall MD Abdomen/Pelvis CT 09/08/16 0000 Signed Impressions: Service Date/Time: Thursday, September 08, 2016 23:45 - CONCLUSION: 1. Marked inflammatory changes of left upper quadrant with severe mesenteric edema and adjacent short segment circumferential wall thickening of mid small bowel and adjacent distal transverse colon. Possible 4 cm abscess adjacent to the mid small bowel wall. Evaluation of intraluminal versus extraluminal fluid in this region is limited as intraluminal contrast is not present in this loop. A delayed scan may be beneficial for clarification. Differential diagnosis includes inflammatory bowel disease and infection. Moderate amount of free fluid similar to prior study. No evidence of free air. 2. Chronic pancreatitis. Filiberto Hall MD ADDENDUM: Delayed images show contrast filling the thickened loops of left upper quadrant small bowel. No evidence of abscess. Findings were discussed with Dr. Henriquez. Filiberto Hall MD Physical Exam GENERAL: awake, and responding, NAD, on CPAP SKIN: Cool and dry. No generalized rash HEAD: Atraumatic. Normocephalic. No temporal or scalp tenderness. EYES: Marquez conjunctivae. No scleral edema. No scleral icterus. No injection or drainage. ENT: Nose without bleeding, or purulent icterus. Endotracheal tube is in the mouth. NECK: Trachea midline. No JVD or lymphadenopathy. Supple, nontender, no meningeal signs. CARDIOVASCULAR: Regular rate and rhythm without murmurs, gallops, or rubs. RESPIRATORY: Coarse breath sounds bilaterally, decreased L base GASTROINTESTINAL: Abdomen soft, not tender. Bowel sounds (+). Not distended. Midline incision, dry, no erythema. MUSCULOSKELETAL: Extremities without clubbing, or pedal edema. Both knees appear swollen NEUROLOGICAL: Responding PSYCH: Cooperative LINE: No evidence of infection : Tavarez in place, urine looks clear Assessment & Plan Remarks IMPRESSION Sepsis with shock, S/P exp lap with lysis of adhesions. - off pressors ? Spillage peritonitis. - ?shock due to other factors - C/S ok so far Respiratory failure, tolerating CPAP - fluid, PNA, ARDS S/P exp lap, LUCY, for SBO Allergy to PCN, has tolerated Cephalosporins in the past Leukocytosis RECOMMENDATION Follow new C/S Follow CBC Continue Cefepime IV Continue Flagyl IV Continue Diflucan IV Monitor progress May need CT if WBC continues to be hig Weaning per [facility] D/W Tati Howard MD Sep 20, 2016 10:42
[2016-09-20] MEDS: FLUCONAZOLE 400 MG PREMIX BAG 200 ML IV SCH (11:01)
[2016-09-20] MEDS ORDERED: BISACODYL 10 MG SUPP RECTAL ONE (13:15)
[2016-09-20] MEDS: ENOXAPARIN SODIUM 40 MG/0.4 ML SYRINGE SQ SCH (16:54)
--- NOTE | 2016-09-20 18:59 | HHI.PR ---
Subjective Remarks %, maintans sat61 YOWM with Pancreatitis,COPD,Nicotine use had Exp Lap on Vent Fi02 60 %, Tolerates CPAP Sedated Fi02 weaned to 60%, maintains sat Awake follows commands On Fentanyl Objective Vital Signs Vital Signs Date Time Temp Pulse Resp B/P Pulse Ox O2 Delivery O2 Flow Rate FiO2 09/20/16 18:00 92 09/20/16 16:22 95 60 09/20/16 16:00 98 09/20/16 16:00 45 09/20/16 16:00 99.1 103 22 148/86 92 09/20/16 14:00 93 09/20/16 12:01 92 60 09/20/16 12:00 98.7 92 23 163/85 91 09/20/16 12:00 92 09/20/16 12:00 45 09/20/16 10:00 108 09/20/16 08:40 99 45 09/20/16 08:00 98.9 93 24 147/84 91 09/20/16 08:00 93 09/20/16 08:00 45 09/20/16 06:00 87 09/20/16 04:10 93 45 09/20/16 04:00 45 09/20/16 04:00 98.5 86 23 150/84 93 09/20/16 04:00 86 09/20/16 02:00 82 09/20/16 00:20 90 45 09/20/16 00:00 98.7 83 3 140/72 93 09/20/16 00:00 45 09/20/16 00:00 80 09/19/16 22:22 98 45 09/19/16 22:00 80 09/19/16 20:11 99 45 09/19/16 20:00 45 09/19/16 20:00 98.6 85 18 132/79 99 09/19/16 20:00 78 I/O 09/19/16 09/19/16 09/19/16 09/20/16 09/20/16 09/20/16 07:00 15:00 23:00 07:00 15:00 23:00 Intake Total 1115 ml 1063 ml 1039 ml 868 ml 1539 ml Output Total 1388 ml 1675 ml 1785 ml 1235 ml 2390 ml 0 ml Balance -273 ml -612 ml -746 ml -367 ml -851 ml 0 ml IV Total 236 ml 481 ml 428 ml 319 ml 847 ml Tube Feeding 548 ml 275 ml 281 ml 231 ml 302 ml TPN/PPN 248 ml 236 ml 248 ml 239 ml 247 ml Lipid 83 ml 71 ml 82 ml 79 ml 83 ml Other 60 ml Output Urine Total 1300 ml 1600 ml 1700 ml 1150 ml 2300 ml Gastric Drainage Total 0 ml Tube Feeding Residual Discard 0 ml 0 ml 0 ml 0 ml 0 ml 0 ml Chest Tube Drainage Total 28 ml Drainage Total 60 ml 75 ml 85 ml 85 ml 90 ml # Bowel Movements 0 0 0 Result Diagram: 09/20/1640409/20/16404 Objective Remarks GENERAL: MBMN WM , on Vent sedated SKIN: Warm and dry. HEAD: Normocephalic. EYES: No scleral icterus. No injection or drainage. NECK: Supple, trachea midline. No JVD or lymphadenopathy. CARDIOVASCULAR: Regular rate and rhythm without murmurs, gallops, or rubs. RESPIRATORY: Breath sounds equal bilaterally. No accessory muscle use. GASTROINTESTINAL: Abdomen soft, non-tender, MUSCULOSKELETAL: No cyanosis, or edema. BACK: Nontender without obvious deformity. No CVA tenderness. A/P Assessment and Plan Vent dependent RF Profound hypoxia Hypoxia Hypotension-resolved S/P Exp Lap COPD Nicotine use DM PLAN: Vent Support. Fi02 60%, Broad spectrum Abx Aerosol nebs. Titerate Fi02 to keep sat 88-92% CPAP trial Velasquez Hill MD Sep 20, 2016 18:59
[2016-09-20] MEDS: FAT EMULSION 20% INJ 250 ML (@10 mls/hr) IV-CENTRAL SCH (21:03)
[2016-09-20] MEDS: CLINIMIX E 5/25 1000 mL- </= 42 mls/hr IV-CENTRAL SCH ×3 (21:03)
[2016-09-20] MEDS: fentaNYL 2,500 MCG/NS 250 ML IV SCH (21:04)
[2016-09-21] VITALS (21 sets, daily range): BP systolic 115–149; BP diastolic 59–86; PULSE 65–101; RESP 17–28; TEMP 97.7–99.1; O2SAT 68–93
[2016-09-21] MEDS: INSULIN NovoLIN REGULAR SUPPLEMENTAL SCALE SQ SCH ×7 (00:15→23:38)
[2016-09-21] MEDS: RESP: ALBUTEROL 2.5 MG/IPRATROPIUM 0.5 MG NEB (SCH) NEB ×4 (03:26→20:31)
[2016-09-21] MEDS: CEFEPIME INJ 2,000 MG in SODIUM CHLORIDE 0.9% INJ 100 ML IV SCH ×3 (04:13→21:08)
[2016-09-21] MEDS: metroNIDAZOLE 500 MG INJ 100 ML IV SCH ×3 (05:27→21:13)
--- NOTE | 2016-09-21 08:07 | HHI.CCPN ---
Subjective Remarks/Hospital Course This is a 61-year-old male with a past medical history of chronic pancreatitis, hypertension, type 2 diabetes who presented with abdominal pain that started Tuesday. Patient stated that abdominal pain is located in the left lower quadrant and it was very mild. He said over the weekend has worsened in intensity and is constant. Patient stated that he has some nausea that resolves or improves with food. Deny any emesis. Patient also complains of a chronic productive cough that has been the same. He denies any diarrhea or constipation and see that his stools are normal. Patient also denies any fever or chills. She was admitted to hospitalist service and was evaluated subsequently by GI, Dr. Pinto as well as Dr. Henriquez from general surgery in view of abnormal CT abdomen pelvis with left upper quadrant inflammatory change in these and treat with edema and KUBs raising question of SBO. She underwent E lap with lysis of lesions under general anesthesia by Dr. Henriquez on 09/10, EBL 100 cc, received 2 L crystalloid intraoperatively, postop diagnosis small bowel adhesions. Patient was kept intubated postoperatively and transferred to [facility]. I saw the patient shortly after his arrival to the ICU. He had just been started on Versed and fentanyl and dropped his blood pressure to the 60 systolic range. He was ordered a fluid bolus 2 L crystalloids stat and started on Levophed for hypotension. Stat cultures were sent. Patient also is having problem with his O2 sats were dropping in the 80s. Stat chest x-ray was ordered. 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 Patient was requiring 2 mics of Levophed for pressor support. 09/11: Ongoing hypotension and difficulty with oxygenation. Persistent hypotension responsive to volume. CVP 20. Suspect chronic pulmonary hypertension with heavily preload-dependent cardiac output. Will start milrinone for RV support and add vasopressin to levophed prn. Sustained tachycardia prohibits continued escalation of levophed. Underlying lung function is marginal at best. 09/12 0740 hrs: Severe chronic lung disease without significant reserve appears to be the primary pathophysiology here. We were able to produce acceptable cardiac output yesterday with milrinone and vasopressin, minor amounts levophed for peripheral support. He has developed refractory hypoxemia overnight in the 60 - 70% range which is incompatible with survival. Cardiopulmonary dynamics have been maximized and are beginning to deteriorate. Will get another CXR and see if thoracentesis will help lung function. 09/12 1600 hours: Continued difficulty with oxygenation, sats in range 78 - 81% .Cardioverted pharmacologically back to NSR and Flotrac output 7.8. Abdominal pressure 18. At this point he has adequate blood flow and oxygen delivery capacity despite low PO2. We have tried various vent modes and PC/AC appears to work best. SVV is 10; altogether these observations recommend diuresis to help oxygenation. He has horrible diffuse emphysema and a moderate right pleural effusion - may be forced to place a chest tube to allow better lung expansion. 09/13: Improved oxygenation after aggressive diuresis. Renal function remains stable. Alert, responsive. 09.14: Continued good diuresis after lasix. A-aO2 gradient marginally improved. Remains alert. 09/15: Currently afebrile. Almost off norepinephrine drip. Awake and alert and follows commands. FiO2 70%. 09/16: Complaining of air hunger on the ventilator. Currently afebrile. FiO2 back down at 70%. Inspiratory pressure decreased from 18 to 12. 09/17: Awake and alert. Central line was changed to the left side. Afebrile. FiO2 down to 60%. On 2 g per min of norepinephrine. 09/18: Awake and alert. No acute changes overnight. FiO2 was remains at 60%. Tolerating tube feeding. 09/19: Tmax 99.8. Currently 99. No bowel movement. Tolerating tube feeds. Right chest tube removed yesterday we'll attempt to remove left chest tube today. Awake and alert and following commands. 09/20: Orally intubated on mechanical ventilation. Off sedation he is awake and alert following commands. 09/21: Sedated, easily arousable, orally intubated on mechanical ventilation. Tolerating C Pap with pressure support overnight. Objective Vital Signs Date Time Temp Pulse Resp B/P Pulse Ox O2 Delivery O2 Flow Rate FiO2 09/21/16 06:00 96 09/21/16 05:00 45 09/21/16 04:20 92 09/21/16 04:00 99.1 22 122/65 09/17/16 07:50 Ventilator Intake and Output 09/20/16 09/20/16 09/21/16 08:00 16:00 00:00 Intake Total 868 ml 1539 ml 1187 ml Output Total 1235.0 ml 2390.0 ml 1760.0 ml Balance -367.0 ml -851.0 ml -573.0 ml Result Diagram: 09/20/1640409/20/165 Imaging Last Impressions Chest X-Ray 09/19/16 06 Signed Impressions: Service Date/Time: Monday, September 19, 2016 05:09 - CONCLUSION: 1. No pneumothorax. 2. Some progression in the bilateral pulmonary infiltrates. Anibal Malhotra Jr., MD Abdomen X-Ray 09/09/16 0600 Signed Impressions: Service Date/Time: August 04:54 - CONCLUSION: No significant interval change. Persistent upper mid abdomen small bowel dilatation and wall thickening. Filiberto Hall MD Abdomen/Pelvis CT 09/08/16 0000 Signed Impressions: Service Date/Time: Thursday, September 08, 2016 23:45 - CONCLUSION: 1. Marked inflammatory changes of left upper quadrant with severe mesenteric edema and adjacent short segment circumferential wall thickening of mid small bowel and adjacent distal transverse colon. Possible 4 cm abscess adjacent to the mid small bowel wall. Evaluation of intraluminal versus extraluminal fluid in this region is limited as intraluminal contrast is not present in this loop. A delayed scan may be beneficial for clarification. Differential diagnosis includes inflammatory bowel disease and infection. Moderate amount of free fluid similar to prior study. No evidence of free air. 2. Chronic pancreatitis. Filiberto Hall MD ADDENDUM: Delayed images show contrast filling the thickened loops of left upper quadrant small bowel. No evidence of abscess. Findings were discussed with Dr. Henriquez. Filiberto Hall MD Objective Remarks GENERAL: 61-year-old male, currently in bed, remains orally intubated on mechanical ventilation SKIN: Warm and dry. No rash HEAD: Atraumatic. Normocephalic. EYES: Pupils equal and round about 3 mm bilaterally and reactive. No scleral icterus. No injection or drainage. ENT: No nasal bleeding or discharge. Mucous membranes pink and moist. NECK: Trachea midline. No JVD. Orotracheally intubated. Left IJ clean dry and intact CARDIOVASCULAR: RRR. S1, S2. No S4. Without murmur. RESPIRATORY: Orally intubated on mechanical ventilation, Diminished breath sounds throughout. No rhonchi appreciated. No end expiratory wheeze. GASTROINTESTINAL: Abdomen slightly tender palpation. Normoactive bowel sounds. Incisional sutures intact without erythema or dehiscence. No drainage. ROSHAN drain positive serosanguineous drainage MUSCULOSKELETAL: Extremities with trace to 1+ lower extremity peripheral edema. No obvious deformities. NEUROLOGICAL: Awake and alert. No obvious cranial nerve deficits. Motor grossly within normal limits. Five out of 5 muscle strength in the arms and legs. Date of Insertion: Sep 16, 2016 Line: Central Venous Catheter Side: Left Location: Internal, Jugular A/P Assessment and Plan Neuro/Psych: Currently on a fentanyl drip for analgesia while intubated. Precedex off as it was causing more hypotension then relieving his anxiety. Goal of RASS -2 - 0 Daily sedation vacation Appears comfortable on the ventilator CV: Large A-a gradient A. 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 Wean off the next couple days. Resp: Acute hypoxemic respiratory failure Severe COPD Pleural effusion status post bilateral chest tubes PC/AC 18/iP 12/iT 0.9/8/40 Ventilator bundle Bronchodilator therapy every 4 hours with albuterol every 2 hours for breakthrough dyspnea Pulmacort twice a day Followed by /pulmonology Right chest tube discontinued 09/18 Left chest tube discontinued 09/19 Daily CPap trials. We will attempt extubation today. Patient may need BiPAP intermittently following extubation due to advanced COPD GI: Postop day #11 exploratory lap lysis of adhesions - Dr. Henriquez Chronic pancreatitis Abdominal ascites Internal hemorrhoids Elevated transaminases Status post EGD by GI. - Pathology revealed chronic gastritis inflammation Says post colonoscopy by GI 09/06 -incomplete splenic flexure normal mucosa. Internal hemorrhoids. ROSHAN drain in place Currently TPN at 30 cc an hour with lipids 20% at 10 cc an hour Trickle feeds initiated by surgery 09/19 currently Glucerna 1.5 at 30 cc an hour with a goal of 60 cc an hour. Verbal Report from nurse that no advance her tube feeding until bowel movement from Dr. Henriquez Protonix 40 mg IV twice a day Follow LFTs. slowly trending downward. : Tavarez has been placed for accurate I's and O's in a critically ill patient Endo: Diabetes mellitus Sliding-scale insulin with Accu-Cheks every 4 hours maintain euglycemia. Levemir 8 units twice a day. 10 units sliding-scale insulin past 24 hours Holding home medication glipizide 10 mg by mouth daily Renal: Accurate I's and O's Monitor urine output BMP currently within normal limits Heme: Leukocytosis Anemia Daily CBC/CMP. Remains elevated ID: Currently on Maxipime, Flagyl and Diflucan Infectious disease actively following. Pertinent cultures 09/17 - sputum - no growth 09/11 - blood culture - no growth 09/10 - blood culture 2 - no growth 09/10 - urine - no growth 09/02 - blood culture 2 - no growth FEN: Hypernatremia Replace electrolytes as clinically indicated per ICU electrolyte protocol MSK: PT/OT evaluate and treat Access - Right IJ CVL placed 09/08-09/16 - Left IJ CVL 09/16 at present Prophylaxis - GI - Protonix IV twice a day - DVT - SCD/pharmacological prophylaxis when okayed by surgery Critical Care: The total critical care time was 35 minutes. Time to perform other separately billable procedures was not included in the critical care time. Solomon Morales MD Sep 21, 2016 08:07
[2016-09-21] MEDS: PANTOPRAZOLE SODIUM 40 MG VIAL IV PUSH SCH ×2 (08:34→21:08)
[2016-09-21] MEDS: HYDROCORTISONE SOD SUCCINATE 100 MG VIAL IV PUSH SCH (08:34)
[2016-09-21] MEDS: LORATADINE 10 MG TAB PO SCH (08:35)
[2016-09-21] MEDS: INSULIN DETEMIR 100 UNITS/ML VIAL SQ SCH ×2 (08:35→21:09)
[2016-09-21] MEDS: guaiFENesin E.R. 600 MG TAB PO SCH ×2 (08:35→21:08)
[2016-09-21] MEDS: LISINOPRIL 10 MG TAB PO SCH (08:35)
[2016-09-21] MEDS: RESP: BUDESONIDE 0.5 MG/2 ML NEB NEB SCH ×2 (08:36→20:31)
[2016-09-21] MEDS: CHLORHEXIDINE 0.12% (ORAL KIT) 15 ML CUP MT SCH ×2 (08:36→20:00)
[2016-09-21] MEDS: SODIUM CHLORIDE 0.9% FLUSH 5 ML FLUSH FLUSH SCH ×2 (08:37→21:09)
[2016-09-21] MEDS: FLUTICASONE PROPIONATE 50 MCG/ACT 16 GM NASAL SPRAY NASAL SCH ×2 (09:00→21:09)
[2016-09-21] MEDS: SODIUM CHLORIDE 0.9% FLUSH 10 ML FLUSH IVF SCH (09:00)
--- NOTE | 2016-09-21 10:16 | HHI.PR ---
Subjective Subjective Notes Up to stretcher chair On BiPAP LINDSAY Atkinson at bedside Objective Vitals/I&O Vital Signs Date Time Temp Pulse Resp B/P Pulse Ox O2 Delivery O2 Flow Rate FiO2 09/21/16 08:38 85 Mask 7 09/21/16 08:38 40 09/21/16 08:00 99.1 101 17 147/73 Labs Date/Time Procedure Status Source Growth 09/17/16 22:30 Gram Stain - Final Complete Sputum Endotracheal 09/17/16 22:30 Sputum Culture - Final Complete Sputum Endotracheal NO GROWTH IN 48 HOURS. Radiology Last Impressions Chest X-Ray 09/12/16 0000 Signed Impressions: Service Date/Time: Monday, September 12, 2016 07:39 - CONCLUSION: Bibasilar airspace disease and bilateral pleural effusions larger on the right. Zechariah Sims MD Abdomen X-Ray 09/09/16 0600 Signed Impressions: Service Date/Time: August 04:54 - CONCLUSION: No significant interval change. Persistent upper mid abdomen small bowel dilatation and wall thickening. Filiberto Hall MD Abdomen/Pelvis CT 09/08/16 0000 Signed Impressions: Service Date/Time: Thursday, September 08, 2016 23:45 - CONCLUSION: 1. Marked inflammatory changes of left upper quadrant with severe mesenteric edema and adjacent short segment circumferential wall thickening of mid small bowel and adjacent distal transverse colon. Possible 4 cm abscess adjacent to the mid small bowel wall. Evaluation of intraluminal versus extraluminal fluid in this region is limited as intraluminal contrast is not present in this loop. A delayed scan may be beneficial for clarification. Differential diagnosis includes inflammatory bowel disease and infection. Moderate amount of free fluid similar to prior study. No evidence of free air. 2. Chronic pancreatitis. Filiberto Hall MD ADDENDUM: Delayed images show contrast filling the thickened loops of left upper quadrant small bowel. No evidence of abscess. Findings were discussed with Dr. Henriquez. Filiberto Hall MD Cardiovascular: Regular Lungs: Clear Abdomen: Other (midline incision stapled----c/d/i ; ROSHAN with SS drainage ) Extremities: Other (generalized edema ) A/P Problem List: (1) Sepsis (2) COPD (chronic obstructive pulmonary disease) (3) Hypokalemia (4) Hyponatremia (5) Abdominal pain (6) Enteritis (7) Ileus (8) Leukocytosis (9) Diabetes (10) Systemic inflammatory response syndrome (SIRS) Assessment and Plan 61 year old male POD11 Exploratory Laparotomy, lysis of adhesions -Extubated; on BiPAP -Will get swallow eval once oxygen levels stable -Replace K and Phos -Check Pre-albumin -Monitor ROSHAN output -Discussed with RN China Attending Note - Dr. Henriquez Discussed with Dr. Morales Abdomen soft, distended; joseluis intact ROSHAN output serous The exam, history, and the medical decision-making described in the above note were completed with the assistance of the mid-level provider. I reviewed and agree with the findings presented. I attest that I had a [id number] encounter with the patient on the same day, and personally performed and documented my assessment and findings in the medical record. Problem Qualifiers (1) Leukocytosis: Qualified Code: D72.829 - Leukocytosis, unspecified type Charisma Larson Sep 21, 2016 10:16 Bret Henriquez MD Sep 21, 2016 10:44
--- NOTE | 2016-09-21 11:18 | RADRPT ---
EXAM DATE/TIME: 09/21/2016 10:17 [place] COMPARISON: CHEST SINGLE AP, September 19, 2016, 13:35. INDICATIONS : Short of breath, follow up respiratory failure MEDICAL HISTORY : Hypertension. Chronic obstructive pulmonary disease. SURGICAL HISTORY : None. ENCOUNTER: Subsequent ACUITY: 3 weeks PAIN SCORE: Non-responsive. LOCATION: Bilateral chest FINDINGS: Single AP view of the chest. Nasogastric tube remains in place. Left IJ central venous catheter is ag ain seen. Mild hazy bilateral lower lung zone opacity, new when compared to the prior study. No evide nce of pneumothorax. Cardiomediastinal silhouette unchanged. CONCLUSION: New mild bilateral lower lung zone hazy opacity suggesting mild pulmonary edema. There is also atelec tasis at the inferior left lung base. Possible small pleural effusions. Filiberto Hall MD on September 21, 2016 at 11:14 Board Certified Radiologist. This report was verified electronically.
[2016-09-21] MEDS: methylPREDNISolone SOD SUCC 40 MG/1 ML VIAL IV PUSH SCH ×3 (11:58→21:12)
[2016-09-21] MEDS: FLUCONAZOLE 400 MG PREMIX BAG 200 ML IV SCH (11:59)
[2016-09-21] MEDS ORDERED: FUROSEMIDE 20 MG/2 ML VIAL IV PUSH ONE (12:15)
--- NOTE | 2016-09-21 12:58 | HHI.IDPN ---
Subjective Subjective Remarks Notes reviewed D/W RN Extubated this morning On BIPAP currently Denies SOB No abdominal pain Antibiotics Cefepime IV Flagyl Diflucan Lines J - 09/16 Past Medical History Reviewed Allergies: Coded Allergies: Penicillin (Verified Allergy, Severe, SWELLING, 09/11/16) has tolerated Cephalosporins in previous admissions *MDRO Multi-Drug Resistant Organism (Verified Adverse Reaction, Unknown, ) Hx MRSA Sputum 2006, Wounds 2003 MRSA PCR Screen negative 11/25/14 & 09/10/15. Cleared per Infection Control. Patient does not require isolation for hx of MRSA prior to 09/10/15. Objective . Vital Signs Date Time Temp Pulse Resp B/P Pulse Ox O2 Delivery O2 Flow Rate FiO2 09/21/16 12:05 88 09/21/16 12:00 98 09/21/16 12:00 98.0 98 23 115/63 68 09/21/16 11:37 88 40 09/21/16 10:00 101 09/21/16 08:38 85 Mask 7 09/21/16 08:38 91 40 09/21/16 08:00 50 09/21/16 08:00 99.1 101 17 147/73 91 09/21/16 08:00 101 09/21/16 06:00 96 09/21/16 05:00 45 09/21/16 04:20 92 50 09/21/16 04:10 50 09/21/16 04:00 96 09/21/16 04:00 50 09/21/16 04:00 99.1 96 22 122/65 90 09/21/16 02:00 97 09/21/16 01:17 91 50 09/21/16 00:00 98.7 96 22 147/59 91 09/21/16 00:00 50 09/21/16 00:00 96 09/20/16 22:13 89 50 09/20/16 22:00 91 09/20/16 20:45 50 09/20/16 20:44 50 09/20/16 20:44 90 50 09/20/16 20:00 45 09/20/16 20:00 91 09/20/16 20:00 99.4 91 29 146/80 92 09/20/16 19:25 90 50 09/20/16 18:00 92 09/20/16 16:22 95 60 09/20/16 16:00 98 09/20/16 16:00 45 09/20/16 16:00 99.1 103 22 148/86 92 09/20/16 14:00 93 09/20/16 09/20/16 09/21/16 15:00 23:00 07:00 Intake Total 1539 ml 1187 ml 1395 ml Output Total 2390 ml 1760 ml 1340 ml Balance -851 ml -573 ml 55 ml IV Total 847 ml 287 ml 572 ml Tube Feeding 302 ml 484 ml 452 ml TPN/PPN 247 ml 234 ml 233 ml Lipid 83 ml 62 ml 78 ml Tube Irrigant 120 ml 60 ml Other 60 ml Output Urine Total 2300 ml 1700 ml 1300 ml Tube Feeding Residual Discard 0 ml 0 ml 0 ml Drainage Total 90 ml 60 ml 40 ml # Bowel Movements 0 0 0 . Laboratory Tests Test 09/20/16 04:05 White Blood Count 23.8 TH/MM3 Red Blood Count 4.63 MIL/MM3 Hemoglobin 13.4 GM/DL Hematocrit 39.9 % Mean Corpuscular Volume 86.1 FL Mean Corpuscular Hemoglobin 29.0 PG Mean Corpuscular Hemoglobin 33.7 % Concent Red Cell Distribution Width 14.5 % Platelet Count 145 TH/MM3 Mean Platelet Volume 10.3 FL Neutrophils (%) (Auto) % Lymphocytes (%) (Auto) % Monocytes (%) (Auto) % Eosinophils (%) (Auto) % Basophils (%) (Auto) % Neutrophils # (Auto) TH/MM3 Lymphocytes # (Auto) TH/MM3 Monocytes # (Auto) TH/MM3 Eosinophils # (Auto) TH/MM3 Basophils # (Auto) TH/MM3 CBC Comment AUTO DIFF Differential Total Cells 100 Counted Neutrophils % (Manual) 69 % Band Neutrophils % 1 % Lymphocytes % 15 % Monocytes % 10 % Eosinophils % 2 % Neutrophils # (Manual) 17.4 TH/MM3 Metamyelocytes 3 % Differential Comment FINAL DIFF MANUAL Platelet Estimate LOW Platelet Morphology Comment NORMAL Red Cell Morphology Comment NORMAL Laboratory Tests Test 09/20/16 04:05 Sodium Level 147 MEQ/L Potassium Level 3.2 MEQ/L Chloride Level 107 MEQ/L Carbon Dioxide Level 35.0 MEQ/L Anion Gap 5 MEQ/L Blood Urea Nitrogen 33 MG/DL Creatinine 0.68 MG/DL Estimat Glomerular Filtration 119 ML/MIN Rate Random Glucose 154 MG/DL Calcium Level 7.8 MG/DL Phosphorus Level 2.2 MG/DL Magnesium Level 1.8 MG/DL Total Bilirubin 0.4 MG/DL Aspartate Amino Transf 52 U/L (AST/SGOT) Alanine Aminotransferase 121 U/L (ALT/SGPT) Alkaline Phosphatase 60 U/L Total Protein 5.2 GM/DL Albumin 2.0 GM/DL Imaging Chest X-Ray 09/17/16 0600 Signed Impressions: Service Date/Time: Saturday, September 17, 2016 05:37 - CONCLUSION: 1. No pneumothoraces. 2. Unchanged bibasilar consolidation. Anibal Malhotra Jr., MD Chest X-Ray 09/16/16 1504 Signed Impressions: Service Date/Time: August 15:12 - CONCLUSION: Central line placement without pneumothorax. Gumaro Correa MD Chest X-Ray 09/16/16 0600 Signed Impressions: Service Date/Time: August 02:16 - CONCLUSION: No significant change has occurred. John Payne MD Chest X-Ray 09/14/16 1200 Signed Impressions: Service Date/Time: Wednesday, September 14, 2016 12:25 - CONCLUSION: 1. No pneumothorax. 2. Multiple tubes and lines are stable. 3. Scattered patchy infiltrates bilaterally. Jostin Crow MD Chest X-Ray 09/12/16 0000 Signed Impressions: Service Date/Time: Monday, September 12, 2016 07:39 - CONCLUSION: Bibasilar airspace disease and bilateral pleural effusions larger on the right. Zechariah Sims MD Abdomen X-Ray 09/09/16 0600 Signed Impressions: Service Date/Time: August 04:54 - CONCLUSION: No significant interval change. Persistent upper mid abdomen small bowel dilatation and wall thickening. Filiberto Hall MD Abdomen/Pelvis CT 09/08/16 0000 Signed Impressions: Service Date/Time: Thursday, September 08, 2016 23:45 - CONCLUSION: 1. Marked inflammatory changes of left upper quadrant with severe mesenteric edema and adjacent short segment circumferential wall thickening of mid small bowel and adjacent distal transverse colon. Possible 4 cm abscess adjacent to the mid small bowel wall. Evaluation of intraluminal versus extraluminal fluid in this region is limited as intraluminal contrast is not present in this loop. A delayed scan may be beneficial for clarification. Differential diagnosis includes inflammatory bowel disease and infection. Moderate amount of free fluid similar to prior study. No evidence of free air. 2. Chronic pancreatitis. Filiberto Hall MD ADDENDUM: Delayed images show contrast filling the thickened loops of left upper quadrant small bowel. No evidence of abscess. Findings were discussed with Dr. Henriquez. Filiberto Hall MD Physical Exam GENERAL: awake, and responding, on BIPAP, not SOB SKIN: Cool and dry. No generalized rash HEAD: Atraumatic. Normocephalic. No temporal or scalp tenderness. EYES: [place]ogul conjunctivae. No scleral edema. No scleral icterus. No injection or drainage. ENT: Nose without bleeding, or purulent icterus. Dry mucosa NECK: Trachea midline. No JVD or lymphadenopathy. Supple, nontender, no meningeal signs. CARDIOVASCULAR: Regular rate and rhythm without murmurs, gallops, or rubs. RESPIRATORY: Coarse breath sounds bilaterally, decreased L base GASTROINTESTINAL: Abdomen soft, not tender. Bowel sounds (+). Not distended. Midline incision, dry, no erythema. MUSCULOSKELETAL: Extremities without clubbing, Has pedal edema tanya. NEUROLOGICAL: Responding, non-focal PSYCH: Cooperative LINE: No evidence of infection : Tavarez in place, urine looks clear Assessment & Plan Remarks IMPRESSION Sepsis with shock, S/P exp lap with lysis of adhesions. - off pressors ? Spillage peritonitis. - ?shock due to other factors - C/S ok so far Respiratory failure, extubated 09/21 - fluid, PNA, ARDS S/P exp lap, LUCY, for SBO Allergy to PCN, has tolerated Cephalosporins in the past Leukocytosis RECOMMENDATION Follow CBC Continue Cefepime IV Continue Difluican IV Stop Flagyl Monitor progress May need CT if WBC continues to be high Monitor resp status D/W Tati Howard MD Sep 21, 2016 12:57
[2016-09-21] MEDS: DEXMEDETOMIDINE INJ 50 ML IV SCH ×4 (14:10→19:56)
[2016-09-21] MEDS: FUROSEMIDE 20 MG/2 ML VIAL IV PUSH SCH (17:11)
[2016-09-21] MEDS: ENOXAPARIN SODIUM 40 MG/0.4 ML SYRINGE SQ SCH (17:11)
--- NOTE | 2016-09-21 17:29 | HHI.PR ---
Subjective Remarks %, maintans sat61 [id number] with Pancreatitis,COPD,Nicotine use had Exp Lap Extubated On BIPAP Awake follows commands Objective Vital Signs Vital Signs Date Time Temp Pulse Resp B/P Pulse Ox O2 Delivery O2 Flow Rate FiO2 09/21/16 16:48 91 09/21/16 16:37 85 50 09/21/16 14:00 100 09/21/16 12:05 88 09/21/16 12:00 98 09/21/16 12:00 98.0 98 23 115/63 68 09/21/16 11:37 88 40 09/21/16 10:00 101 09/21/16 08:38 85 Mask 7 09/21/16 08:38 91 40 09/21/16 08:15 88 Bi-Pap 40 09/21/16 08:00 50 09/21/16 08:00 99.1 101 17 147/73 91 09/21/16 08:00 101 09/21/16 06:00 96 09/21/16 05:00 45 09/21/16 04:20 92 50 09/21/16 04:10 50 09/21/16 04:00 96 09/21/16 04:00 50 09/21/16 04:00 99.1 96 22 122/65 90 09/21/16 02:00 97 09/21/16 01:17 91 50 09/21/16 00:00 98.7 96 22 147/59 91 09/21/16 00:00 50 09/21/16 00:00 96 09/20/16 22:13 89 50 09/20/16 22:00 91 09/20/16 20:45 50 09/20/16 20:44 50 09/20/16 20:44 90 50 09/20/16 20:00 45 09/20/16 20:00 91 09/20/16 20:00 99.4 91 29 146/80 92 09/20/16 19:25 90 50 09/20/16 18:00 92 I/O 09/20/16 09/20/16 09/20/16 09/21/16 09/21/16 09/21/16 07:00 15:00 23:00 07:00 15:00 23:00 Intake Total 868 ml 1539 ml 1187 ml 1395 ml 1137 ml Output Total 1235 ml 2390 ml 1760 ml 1340 ml 1930 ml Balance -367 ml -851 ml -573 ml 55 ml -793 ml IV Total 319 ml 847 ml 287 ml 572 ml 560 ml Tube Feeding 231 ml 302 ml 484 ml 452 ml 159 ml TPN/PPN 239 ml 247 ml 234 ml 233 ml 269 ml Lipid 79 ml 83 ml 62 ml 78 ml 89 ml Tube Irrigant 120 ml 60 ml 60 ml Other 60 ml Output Urine Total 1150 ml 2300 ml 1700 ml 1300 ml 1900 ml Gastric Drainage Total 0 ml Tube Feeding Residual Discard 0 ml 0 ml 0 ml 0 ml Drainage Total 85 ml 90 ml 60 ml 40 ml 30 ml # Bowel Movements 0 0 0 0 Result Diagram: 09/20/1640409/20/16404 Objective Remarks GENERAL: MBMN WM , on BIPAP SKIN: Warm and dry. HEAD: Normocephalic. EYES: No scleral icterus. No injection or drainage. NECK: Supple, trachea midline. No JVD or lymphadenopathy. CARDIOVASCULAR: Regular rate and rhythm without murmurs, gallops, or rubs. RESPIRATORY: Breath sounds equal bilaterally. No accessory muscle use. GASTROINTESTINAL: Abdomen soft, non-tender, MUSCULOSKELETAL: No cyanosis, or edema. BACK: Nontender without obvious deformity. No CVA tenderness. A/P Assessment and Plan RF, s/p Extubation Hypoxia Hypotension-resolved S/P Exp Lap COPD Nicotine use DM PLAN: Cont BIPAP, fi02 40% Broad spectrum Abx Aerosol nebs. Titerate Fi02 to keep sat 88-92% Velasquez Hill MD Sep 21, 2016 17:29
[2016-09-21 17:35] LABS: BLOOD GAS VENOUS BASE EXCESS 12.7 mmol/L (-2-2); BLOOD GAS VENOUS HCO3 37 mmol/L (22-26); BLOOD GAS VENOUS O2 HGB SAT 58 % (70-76); BLOOD GAS VENOUS PCO2 53 mmHg (44-48); BLOOD GAS VENOUS PO2 33 mmHg (35-40); BLOOD GAS VENOUS pH 7.46 (7.360-7.400); CRITICAL VALUE NO; FIO2 70 %; OXYGEN DEVICE BIPAP; TEMP CORR TO 98.6; VENT SETTINGS IPAP 16/EPAP 8
[2016-09-21 17:36] LABS: DRAW SITE CENTRAL LINE; STAT NO
[2016-09-21] MEDS: CLINIMIX E 5/25 1000 mL- </= 42 mls/hr IV-CENTRAL SCH ×3 (21:08)
[2016-09-21] MEDS: FAT EMULSION 20% INJ 250 ML (@10 mls/hr) IV-CENTRAL SCH (21:08)
[2016-09-21] MEDS: DEXMEDETOMIDINE INJ 400 MCG in SODIUM CHLORIDE 0.9% INJ 96 ML IV SCH (22:00)
[2016-09-21] MEDS: MORPHINE SULFATE 4 MG/ML INJ IV PUSH PRN (22:45)
[2016-09-22] VITALS (17 sets, daily range): BP systolic 140–163; BP diastolic 71–85; PULSE 64–93; RESP 19–27; TEMP 97.6–98.5; O2SAT 82–93
[2016-09-22 01:10] LABS: BICARBONATE 38.2 MEQ/L (21.0-32.0); MAGNESIUM 1.8 MG/DL (1.5-2.5); POTASSIUM 3.4 MEQ/L (3.5-5.1)
[2016-09-22] MEDS: DEXMEDETOMIDINE INJ 400 MCG in SODIUM CHLORIDE 0.9% INJ 96 ML IV SCH ×2 (01:17→03:27)
[2016-09-22] MEDS: MORPHINE SULFATE 4 MG/ML INJ IV PUSH PRN (01:49)
[2016-09-22] MEDS: RESP: ALBUTEROL 2.5 MG/IPRATROPIUM 0.5 MG NEB (SCH) NEB ×3 (03:26→16:38)
[2016-09-22 03:33] LABS: AUTOMATED NEUTROPHIL # 12.7 TH/MM3 (1.8-7.7); BASOPHIL % 0.3 % (0.0-2.0); HEMATOCRIT 37.9 % (39.0-51.0); HEMO FLAGS DIFF FINAL; LYMPH % 9.5 % (9.0-44.0); LYMPHOCYTE # 1.4 TH/MM3 (1.0-4.8); MEAN CELL VOLUME 87.4 FL (80.0-100.0); MEAN CORPUSCULAR HEMOGLOBIN 28.4 PG (27.0-34.0); MEAN CORPUSCULAR HGB CONC 32.5 % (32.0-36.0); MONO % 4.2 % (0.0-8.0); PLATELET COUNT 124 TH/MM3 (150-450); RED BLOOD COUNT 4.33 MIL/MM3 (4.50-5.90); RED CELL DISTRIBUTION WIDTH 14.3 % (11.6-17.2); WHITE BLOOD COUNT 14.7 TH/MM3 (4.0-11.0)
[2016-09-22] MEDS: INSULIN NovoLIN REGULAR SUPPLEMENTAL SCALE SQ SCH ×6 (04:00→23:28)
[2016-09-22 04:02] LABS: ALKALINE PHOSPHATASE 51 U/L (45-117); ALT (GPT) 94 U/L (12-78); ANION GAP 3 MEQ/L (5-15); AST (GOT) 41 U/L (15-37); BICARBONATE 40.1 MEQ/L (21.0-32.0); BLOOD UREA NITROGEN 34 MG/DL (7-18); CHLORIDE 107 MEQ/L (98-107); GLOMERULAR FILTRATION RATE 128 ML/MIN (>89); SODIUM (NA) 150 MEQ/L (136-145); TOTAL BILIRUBIN ADULT 0.5 MG/DL (0.2-1.0)
[2016-09-22 04:04] LABS: POTASSIUM 2.7 MEQ/L (3.5-5.1)
[2016-09-22] MEDS: CEFEPIME INJ 2,000 MG in SODIUM CHLORIDE 0.9% INJ 100 ML IV SCH (04:15)
[2016-09-22] MEDS: methylPREDNISolone SOD SUCC 40 MG/1 ML VIAL IV PUSH SCH ×3 (04:15→20:49)
[2016-09-22] MEDS: POTASSIUM CHLOR 40 MEQ PREMIX 100 ML IV PRN ×3 (04:15→18:34)
[2016-09-22] MEDS: DEXMEDETOMIDINE INJ 1,000 MCG in SODIUM CHLOR 0.9% 250 ML INJ 240 ML IV SCH ×2 (04:38→23:06)
[2016-09-22] MEDS: metroNIDAZOLE 500 MG INJ 100 ML IV SCH ×3 (05:22→22:32)
[2016-09-22] MEDS: RESP: BUDESONIDE 0.5 MG/2 ML NEB NEB SCH ×2 (07:55→20:11)
[2016-09-22] MEDS: CHLORHEXIDINE 0.12% (ORAL KIT) 15 ML CUP MT SCH ×2 (08:00→19:49)
[2016-09-22] MEDS: LORATADINE 10 MG TAB PO SCH (08:55)
[2016-09-22] MEDS: guaiFENesin E.R. 600 MG TAB PO SCH ×2 (08:55→20:22)
[2016-09-22] MEDS: INSULIN DETEMIR 100 UNITS/ML VIAL SQ SCH ×2 (08:56→19:50)
[2016-09-22] MEDS: LISINOPRIL 10 MG TAB PO SCH (08:56)
[2016-09-22] MEDS: PANTOPRAZOLE SODIUM 40 MG VIAL IV PUSH SCH ×2 (08:57→19:49)
[2016-09-22] MEDS: SODIUM CHLORIDE 0.9% FLUSH 10 ML FLUSH IVF SCH (08:58)
[2016-09-22] MEDS: SODIUM CHLORIDE 0.9% FLUSH 5 ML FLUSH FLUSH SCH ×2 (08:58→19:49)
[2016-09-22] MEDS: FUROSEMIDE 20 MG/2 ML VIAL IV PUSH SCH ×2 (09:34→17:10)
[2016-09-22] MEDS: FLUTICASONE PROPIONATE 50 MCG/ACT 16 GM NASAL SPRAY NASAL SCH ×2 (09:35→19:50)
--- NOTE | 2016-09-22 09:50 | HHI.IDPN ---
Subjective Subjective Remarks Notes reviewed On BIPAP On precedex, difficult to arouse Also bradycardic NO fever WBC down to 14 CXR with pulmonary edema Antibiotics Cefepime IV Diflucan Lines J - 09/16 Past Medical History Reviewed Allergies: Coded Allergies: Penicillin (Verified Allergy, Severe, SWELLING, 09/11/16) has tolerated Cephalosporins in previous admissions *MDRO Multi-Drug Resistant Organism (Verified Adverse Reaction, Unknown, ) Hx MRSA Sputum 2006, Wounds 2003 MRSA PCR Screen negative 11/25/14 & 09/10/15. Cleared per Infection Control. Patient does not require isolation for hx of MRSA prior to 09/10/15. Objective . Vital Signs Date Time Temp Pulse Resp B/P Pulse Ox O2 Delivery O2 Flow Rate FiO2 09/22/16 08:00 72 09/22/16 07:56 88 70 09/22/16 07:56 88 BiPAP 70 09/22/16 07:00 70 Bi-Pap 09/22/16 06:00 65 09/22/16 04:09 93 70 09/22/16 04:00 97.6 65 22 145/77 92 09/22/16 04:00 65 09/22/16 02:00 70 09/22/16 01:25 92 70 09/22/16 00:00 64 09/22/16 00:00 97.8 64 24 146/80 91 09/22/16 00:00 73 09/21/16 22:09 92 70 09/21/16 22:00 73 09/21/16 20:00 70 09/21/16 20:00 97.7 70 20 136/76 93 09/21/16 19:19 93 70 09/21/16 19:00 94 Bi-Pap 70 09/21/16 18:00 65 09/21/16 16:48 91 09/21/16 16:37 85 50 09/21/16 16:00 98.0 89 28 149/86 83 09/21/16 16:00 89 09/21/16 14:00 100 09/21/16 12:05 88 09/21/16 12:00 98 09/21/16 12:00 98.0 98 23 115/63 68 09/21/16 11:37 88 40 09/21/16 10:00 101 09/21/16 09/21/1609/22/17 15:00 23:00 07:00 Intake Total 1137 ml 978 ml 1029 ml Output Total 1930 ml 2610 ml 1460 ml Balance -793 ml -1632 ml -431 ml IV Total 560 ml 562 ml 665 ml Tube Feeding 159 ml 0 ml 0 ml TPN/PPN 269 ml 210 ml 228 ml Lipid 89 ml 146 ml 76 ml Tube Irrigant 60 ml 60 ml 60 ml Output Urine Total 1900 ml 2600 ml 1400 ml Gastric Drainage Total 0 ml Drainage Total 30 ml 10 ml 60 ml # Bowel Movements 0 1 0 . Laboratory Tests Test 09/22/16 03:20 White Blood Count 14.7 TH/MM3 Red Blood Count 4.33 MIL/MM3 Hemoglobin 12.3 GM/DL Hematocrit 37.9 % Mean Corpuscular Volume 87.4 FL Mean Corpuscular Hemoglobin 28.4 PG Mean Corpuscular Hemoglobin 32.5 % Concent Red Cell Distribution Width 14.3 % Platelet Count 124 TH/MM3 Mean Platelet Volume 10.7 FL Neutrophils (%) (Auto) 86.0 % Lymphocytes (%) (Auto) 9.5 % Monocytes (%) (Auto) 4.2 % Eosinophils (%) (Auto) 0.0 % Basophils (%) (Auto) 0.3 % Neutrophils # (Auto) 12.7 TH/MM3 Lymphocytes # (Auto) 1.4 TH/MM3 Monocytes # (Auto) 0.6 TH/MM3 Eosinophils # (Auto) 0.0 TH/MM3 Basophils # (Auto) 0.0 TH/MM3 CBC Comment DIFF FINAL Differential Comment Laboratory Tests Test 09/21/16 09/21/16 09/22/16 13:09 17:15 03:20 Prealbumin 84 MG/DL Potassium Level 3.3 MEQ/L 2.7 MEQ/L Sodium Level 150 MEQ/L 150 MEQ/L Chloride Level 106 MEQ/L 107 MEQ/L Carbon Dioxide Level 38.2 MEQ/L 40.1 MEQ/L Anion Gap 6 MEQ/L 3 MEQ/L Blood Urea Nitrogen 33 MG/DL 34 MG/DL Creatinine 0.66 MG/DL 0.64 MG/DL Estimat Glomerular Filtration 124 ML/MIN 128 ML/MIN Rate Random Glucose 214 MG/DL 87 MG/DL Calcium Level 7.6 MG/DL 7.9 MG/DL Phosphorus Level 2.9 MG/DL Magnesium Level 1.8 MG/DL Total Bilirubin 0.5 MG/DL Aspartate Amino Transf 41 U/L (AST/SGOT) Alanine Aminotransferase 94 U/L (ALT/SGPT) Alkaline Phosphatase 51 U/L Total Protein 5.3 GM/DL Albumin 2.0 GM/DL Imaging Chest X-Ray 09/21/16 0000 Signed Impressions: Service Date/Time: Wednesday, September 21, 2016 10:17 - CONCLUSION: New mild bilateral lower lung zone hazy opacity suggesting mild pulmonary edema. There is also atelectasis at the inferior left lung base. Possible small pleural effusions. Filiberto Hall MD Chest X-Ray 09/19/16 1300 Signed Impressions: Service Date/Time: Monday, September 19, 2016 13:35 - CONCLUSION: Improved lung exam. Question presence of endotracheal tube with the tip at the level of the clavicles . Carrie Olvera MD Chest X-Ray 09/17/16 0600 Signed Impressions: Service Date/Time: Saturday, September 17, 2016 05:37 - CONCLUSION: 1. No pneumothoraces. 2. Unchanged bibasilar consolidation. Anibal Malhotra Jr., MD Chest X-Ray 09/16/16 1504 Signed Impressions: Service Date/Time: August 15:12 - CONCLUSION: Central line placement without pneumothorax. Gumaro Correa MD Chest X-Ray 09/16/16 0600 Signed Impressions: Service Date/Time: August 02:16 - CONCLUSION: No significant change has occurred. John Payne MD Chest X-Ray 09/14/16 1200 Signed Impressions: Service Date/Time: Wednesday, September 14, 2016 12:25 - CONCLUSION: 1. No pneumothorax. 2. Multiple tubes and lines are stable. 3. Scattered patchy infiltrates bilaterally. Jostin Crow MD Chest X-Ray 09/12/16 0000 Signed Impressions: Service Date/Time: Monday, September 12, 2016 07:39 - CONCLUSION: Bibasilar airspace disease and bilateral pleural effusions larger on the right. Zechariah Sims MD Abdomen X-Ray 09/09/16 0600 Signed Impressions: Service Date/Time: August 04:54 - CONCLUSION: No significant interval change. Persistent upper mid abdomen small bowel dilatation and wall thickening. Filiberto Hall MD Abdomen/Pelvis CT 09/08/16 0000 Signed Impressions: Service Date/Time: Thursday, September 08, 2016 23:45 - CONCLUSION: 1. Marked inflammatory changes of left upper quadrant with severe mesenteric edema and adjacent short segment circumferential wall thickening of mid small bowel and adjacent distal transverse colon. Possible 4 cm abscess adjacent to the mid small bowel wall. Evaluation of intraluminal versus extraluminal fluid in this region is limited as intraluminal contrast is not present in this loop. A delayed scan may be beneficial for clarification. Differential diagnosis includes inflammatory bowel disease and infection. Moderate amount of free fluid similar to prior study. No evidence of free air. 2. Chronic pancreatitis. Filiberto Hall MD ADDENDUM: Delayed images show contrast filling the thickened loops of left upper quadrant small bowel. No evidence of abscess. Findings were discussed with Dr. Henriquez. Filiberto Hall MD Physical Exam GENERAL: difficult to arouse, on precedex, on BIPAP, not in distress SKIN: Cool and dry. No generalized rash HEAD: Atraumatic. Normocephalic. No temporal or scalp tenderness. EYES: [place] conjunctivae. Has scleral edema. No scleral icterus. No injection or drainage. ENT: Nose without bleeding, or purulent drainage. NECK: Trachea midline. No JVD or lymphadenopathy. Supple, nontender, no meningeal signs. CARDIOVASCULAR: Regular rate and rhythm without murmurs, gallops, or rubs. RESPIRATORY: Decreased BS bases GASTROINTESTINAL: Abdomen soft, not tender. Bowel sounds (+). Not distended. Midline incision, dry, no erythema. MUSCULOSKELETAL: Extremities without clubbing. Edema better, Feet cool with cyanosis NEUROLOGICAL: Responding PSYCH: Cooperative LINE: No evidence of infection : Tavarez in place, urine looks clear Assessment & Plan Remarks IMPRESSION Sepsis with shock, S/P exp lap with lysis of adhesions. - off pressors - better ? Spillage peritonitis. - ?shock due to other factors - C/S ok so far - better - abdomen exam benigh Respiratory failure, extubated 09/21 - fluid, PNA, ARDS S/P exp lap, LUCY, for SBO Allergy to PCN, has tolerated Cephalosporins in the past Leukocytosis, better RECOMMENDATION Follow CBC Stop all Abx Monitor off Abx Monitor progress Monitor resp status D/W Tati Faye MD Sep 22, 2016 09:50 Tati Hansen MD Sep 22, 2016 09:50
[2016-09-22] MEDS ORDERED: POTASSIUM CHLORIDE 25 MEQ EFFERVESCENT TAB PO ONE (10:45)
[2016-09-22] MEDS: POTASSIUM CHLORIDE 25 MEQ EFFERVESCENT TAB NG SCH ×2 (11:15→19:50)
--- NOTE | 2016-09-22 11:35 | HHI.CCPN ---
Subjective Remarks/Hospital Course This is a 61-year-old male with a past medical history of chronic pancreatitis, hypertension, type 2 diabetes who presented with abdominal pain that started Tuesday. Patient stated that abdominal pain is located in the left lower quadrant and it was very mild. He said over the weekend has worsened in intensity and is constant. Patient stated that he has some nausea that resolves or improves with food. Deny any emesis. Patient also complains of a chronic productive cough that has been the same. He denies any diarrhea or constipation and see that his stools are normal. Patient also denies any fever or chills. She was admitted to hospitalist service and was evaluated subsequently by GI, Dr. Pinto as well as Dr. Henriquez from general surgery in view of abnormal CT abdomen pelvis with left upper quadrant inflammatory change in these and treat with edema and KUBs raising question of SBO. She underwent E lap with lysis of lesions under general anesthesia by Dr. Henriquez on 09/10, EBL 100 cc, received 2 L crystalloid intraoperatively, postop diagnosis small bowel adhesions. Patient was kept intubated postoperatively and transferred to [facility]. I saw the patient shortly after his arrival to the ICU. He had just been started on Versed and fentanyl and dropped his blood pressure to the 60 systolic range. He was ordered a fluid bolus 2 L crystalloids stat and started on Levophed for hypotension. Stat cultures were sent. Patient also is having problem with his O2 sats were dropping in the 80s. Stat chest x-ray was ordered. 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 Patient was requiring 2 mics of Levophed for pressor support. 09/11: Ongoing hypotension and difficulty with oxygenation. Persistent hypotension responsive to volume. CVP 20. Suspect chronic pulmonary hypertension with heavily preload-dependent cardiac output. Will start milrinone for RV support and add vasopressin to levophed prn. Sustained tachycardia prohibits continued escalation of levophed. Underlying lung function is marginal at best. 09/12 0740 hrs: Severe chronic lung disease without significant reserve appears to be the primary pathophysiology here. We were able to produce acceptable cardiac output yesterday with milrinone and vasopressin, minor amounts levophed for peripheral support. He has developed refractory hypoxemia overnight in the 60 - 70% range which is incompatible with survival. Cardiopulmonary dynamics have been maximized and are beginning to deteriorate. Will get another CXR and see if thoracentesis will help lung function. 09/12 1600 hours: Continued difficulty with oxygenation, sats in range 78 - 81% .Cardioverted pharmacologically back to NSR and Flotrac output 7.8. Abdominal pressure 18. At this point he has adequate blood flow and oxygen delivery capacity despite low PO2. We have tried various vent modes and PC/AC appears to work best. SVV is 10; altogether these observations recommend diuresis to help oxygenation. He has horrible diffuse emphysema and a moderate right pleural effusion - may be forced to place a chest tube to allow better lung expansion. 09/13: Improved oxygenation after aggressive diuresis. Renal function remains stable. Alert, responsive. 09.14: Continued good diuresis after lasix. A-aO2 gradient marginally improved. Remains alert. 09/15: Currently afebrile. Almost off norepinephrine drip. Awake and alert and follows commands. FiO2 70%. 09/16: Complaining of air hunger on the ventilator. Currently afebrile. FiO2 back down at 70%. Inspiratory pressure decreased from 18 to 12. 09/17: Awake and alert. Central line was changed to the left side. Afebrile. FiO2 down to 60%. On 2 g per min of norepinephrine. 09/18: Awake and alert. No acute changes overnight. FiO2 was remains at 60%. Tolerating tube feeding. 09/19: Tmax 99.8. Currently 99. No bowel movement. Tolerating tube feeds. Right chest tube removed yesterday we'll attempt to remove left chest tube today. Awake and alert and following commands. 09/20: Orally intubated on mechanical ventilation. Off sedation he is awake and alert following commands. 09/21: Sedated, easily arousable, orally intubated on mechanical ventilation. Tolerating C Pap with pressure support overnight. 09/22: Extubated yesterday. Requiring BiPAP overnight. On Precedex. Awake and alert, following commands. Knows he is at the hospital and verbalizes appropriately. Being diuresed. Objective Vital Signs Date Time Temp Pulse Resp B/P Pulse Ox O2 Delivery O2 Flow Rate FiO2 09/22/16 10:25 82 High Flow Nasal Cannula 40.00 100 09/22/16 10:00 72 09/22/16 08:00 97.8 19 141/79 Intake and Output 09/21/16 09/21/16 09/22/16 08:00 16:00 00:00 Intake Total 1395 ml 1137 ml 978 ml Output Total 1340 ml 1930 ml 2610 ml Balance 55 ml -793 ml -1632 ml Result Diagram: 09/22/16 0320 09/22/16 0320 Other Results Laboratory Tests Test 09/21/16 09/21/16 09/21/16 09/22/16 13:09 17:10 17:15 03:20 Prealbumin 84 MG/DL Blood Gas Puncture Site CENTRAL LINE Blood Gas Patient Temperature 98.6 Venous Blood pH 7.46 Venous Blood Partial Pressure 53 mmHg CO2 Venous Blood Partial Pressure 33 mmHg O2 Venous Blood HCO3 37 mmol/L Venous Blood Oxygen Saturation 58 % Venous Blood Oxygen Content 10.0 Vol % Venous Blood Base Excess 12.7 mmol/L Oxygen Delivery Device BIPAP Blood Gas Ventilator Setting IPAP 16/EPAP 8 Blood Gas Inspired Oxygen 70 % Potassium Level 3.3 MEQ/L 2.7 MEQ/L Sodium Level 150 MEQ/L 150 MEQ/L Chloride Level 106 MEQ/L 107 MEQ/L Carbon Dioxide Level 38.2 MEQ/L 40.1 MEQ/L Anion Gap 6 MEQ/L 3 MEQ/L Blood Urea Nitrogen 33 MG/DL 34 MG/DL Creatinine 0.66 MG/DL 0.64 MG/DL Estimat Glomerular Filtration 124 ML/MIN 128 ML/MIN Rate Random Glucose 214 MG/DL 87 MG/DL Calcium Level 7.6 MG/DL 7.9 MG/DL Phosphorus Level 2.9 MG/DL Magnesium Level 1.8 MG/DL White Blood Count 14.7 TH/MM3 Red Blood Count 4.33 MIL/MM3 Hemoglobin 12.3 GM/DL Hematocrit 37.9 % Mean Corpuscular Volume 87.4 FL Mean Corpuscular Hemoglobin 28.4 PG Mean Corpuscular Hemoglobin 32.5 % Concent Red Cell Distribution Width 14.3 % Platelet Count 124 TH/MM3 Mean Platelet Volume 10.7 FL Neutrophils (%) (Auto) 86.0 % Lymphocytes (%) (Auto) 9.5 % Monocytes (%) (Auto) 4.2 % Eosinophils (%) (Auto) 0.0 % Basophils (%) (Auto) 0.3 % Neutrophils # (Auto) 12.7 TH/MM3 Lymphocytes # (Auto) 1.4 TH/MM3 Monocytes # (Auto) 0.6 TH/MM3 Eosinophils # (Auto) 0.0 TH/MM3 Basophils # (Auto) 0.0 TH/MM3 CBC Comment DIFF FINAL Differential Comment Total Bilirubin 0.5 MG/DL Aspartate Amino Transf 41 U/L (AST/SGOT) Alanine Aminotransferase 94 U/L (ALT/SGPT) Alkaline Phosphatase 51 U/L Total Protein 5.3 GM/DL Albumin 2.0 GM/DL Imaging Last 48 hours Impressions Chest X-Ray 09/21/16 0000 Signed Impressions: Service Date/Time: Wednesday, September 21, 2016 10:17 - CONCLUSION: New mild bilateral lower lung zone hazy opacity suggesting mild pulmonary edema. There is also atelectasis at the inferior left lung base. Possible small pleural effusions. Filiberto Hall MD Last Impressions Chest X-Ray 09/19/16 0600 Signed Impressions: Service Date/Time: Monday, September 19, 2016 05:09 - CONCLUSION: 1. No pneumothorax. 2. Some progression in the bilateral pulmonary infiltrates. Anibal Malhotra Jr., MD Abdomen X-Ray 09/09/16 0600 Signed Impressions: Service Date/Time: August 04:54 - CONCLUSION: No significant interval change. Persistent upper mid abdomen small bowel dilatation and wall thickening. Filiberto Hall MD Abdomen/Pelvis CT 09/08/16 0000 Signed Impressions: Service Date/Time: Thursday, September 08, 2016 23:45 - CONCLUSION: 1. Marked inflammatory changes of left upper quadrant with severe mesenteric edema and adjacent short segment circumferential wall thickening of mid small bowel and adjacent distal transverse colon. Possible 4 cm abscess adjacent to the mid small bowel wall. Evaluation of intraluminal versus extraluminal fluid in this region is limited as intraluminal contrast is not present in this loop. A delayed scan may be beneficial for clarification. Differential diagnosis includes inflammatory bowel disease and infection. Moderate amount of free fluid similar to prior study. No evidence of free air. 2. Chronic pancreatitis. Filiberto Hall MD ADDENDUM: Delayed images show contrast filling the thickened loops of left upper quadrant small bowel. No evidence of abscess. Findings were discussed with Dr. Henriquez. Filiberto Hall MD Objective Remarks GENERAL: 61-year-old male, currently in bed, remains orally intubated on mechanical ventilation SKIN: Warm and dry. No rash HEAD: Atraumatic. Normocephalic. EYES: Pupils equal and round about 3 mm bilaterally and reactive. No scleral icterus. No injection or drainage. ENT: No nasal bleeding or discharge. Mucous membranes pink and moist. NECK: Trachea midline. No JVD. Orotracheally intubated. Left IJ clean dry and intact CARDIOVASCULAR: RRR. S1, S2. No S4. Without murmur. RESPIRATORY: Orally intubated on mechanical ventilation, Diminished breath sounds throughout. No rhonchi appreciated. No end expiratory wheeze. GASTROINTESTINAL: Abdomen slightly tender palpation. Normoactive bowel sounds. Incisional sutures intact without erythema or dehiscence. No drainage. ROSHAN drain positive serosanguineous drainage MUSCULOSKELETAL: Extremities with trace to 1+ lower extremity peripheral edema. No obvious deformities. NEUROLOGICAL: Awake and alert. No obvious cranial nerve deficits. Motor grossly within normal limits. Five out of 5 muscle strength in the arms and legs. Date of Insertion: Sep 16, 2016 Line: Central Venous Catheter Side: Left Location: Internal, Jugular A/P Assessment and Plan Neuro/Psych: Currently on a fentanyl drip for analgesia while intubated. Precedex off as it was causing more hypotension then relieving his anxiety. Goal of RASS -2 - 0 Daily sedation vacation Appears comfortable on the ventilator CV: Large A-a gradient A. 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 Wean off the next couple days. Resp: Acute hypoxemic respiratory failure Severe COPD Pleural effusion status post bilateral chest tubes Extubated on 09/21. Requiring BiPAP. Will attempt high flow O2 with intermittent BiPAP. Patient may require reintubation. Started Solu-Medrol 80 mg IV every 8 hourly on 09/21 and diuresis to see if respiratory status improves. Bronchodilator therapy every 4 hours with albuterol every 2 hours for breakthrough dyspnea Pulmacort twice a day Followed by /pulmonology Right chest tube discontinued 09/18 Left chest tube discontinued 09/19 Patient is okay with intubation and tracheostomy if needed which I confirmed with him on 09/22 GI: Postop day #12 exploratory lap lysis of adhesions - Dr. Henriquez Chronic pancreatitis Abdominal ascites Internal hemorrhoids Elevated transaminases Status post EGD by GI. - Pathology revealed chronic gastritis inflammation Says post colonoscopy by GI 09/06 -incomplete splenic flexure normal mucosa. Internal hemorrhoids. Increased TPN from 30 to 60 cc an hour on 09/22, continue lipids 20% at 10 cc an hour. Obtain speech and swallow eval. Protonix 40 mg IV twice a day Follow LFTs. slowly trending downward. : Tavarez has been placed for accurate I's and O's in a critically ill patient Endo: Diabetes mellitus Sliding-scale insulin with Accu-Cheks every 4 hours maintain euglycemia. Levemir 8 units twice a day. 10 units sliding-scale insulin past 24 hours Holding home medication glipizide 10 mg by mouth daily Renal: Strict intake output, monitor and replete electrolytes, follow BUN/creatinine. Continue diuresis with Lasix. Will give Diamox 500 mg IV for contraction alkalosis. Heme: Leukocytosis Anemia Follow CBC. ID: Currently on Maxipime, Flagyl and Diflucan Infectious disease actively following. Pertinent cultures 09/17 - sputum - no growth 09/11 - blood culture - no growth 09/10 - blood culture 2 - no growth 09/10 - urine - no growth 09/02 - blood culture 2 - no growth FEN: Hypernatremia Replace electrolytes as clinically indicated per ICU electrolyte protocol MSK: PT/OT evaluate and treat Access - Right IJ CVL placed 09/08-09/16 - Left IJ CVL 09/16 at present Prophylaxis - GI - Protonix IV twice a day - DVT - SCD/pharmacological prophylaxis when okayed by surgery Condition remains critical. Patient at high risk for requiring reintubation. Critical Care: The total critical care time was 35 minutes. Time to perform other separately billable procedures was not included in the critical care time. Solomon Morales MD Sep 22, 2016 11:35
--- NOTE | 2016-09-22 15:38 | HHI.PR ---
Subjective Subjective Notes Patient examined around 0700 Alert and awake On BiPAP Objective Vitals/I&O Vital Signs Date Time Temp Pulse Resp B/P Pulse Ox O2 Delivery O2 Flow Rate FiO2 09/22/16 14:00 93 09/22/16 12:00 97.6 21 142/79 90 09/22/16 10:25 High Flow Nasal Cannula 40.00 100 Labs Laboratory Tests Test 09/21/16 09/21/16 09/22/16 17:10 17:15 03:20 Blood Gas Puncture Site CENTRAL LINE Blood Gas Patient Temperature 98.6 Venous Blood pH 7.46 Venous Blood Partial Pressure 53 CO2 Venous Blood Partial Pressure 33 O2 Venous Blood HCO3 37 Venous Blood Oxygen Saturation 58 Venous Blood Oxygen Content 10.0 Venous Blood Base Excess 12.7 Oxygen Delivery Device BIPAP Blood Gas Ventilator Setting IPAP 16/EPAP 8 Blood Gas Inspired Oxygen 70 Potassium Level 3.3 2.7 Sodium Level 150 150 Chloride Level 106 107 Carbon Dioxide Level 38.2 40.1 Anion Gap 6 3 Blood Urea Nitrogen 33 34 Creatinine 0.66 0.64 Estimat Glomerular Filtration 124 128 Rate Random Glucose 214 87 Calcium Level 7.6 7.9 Phosphorus Level 2.9 Magnesium Level 1.8 White Blood Count 14.7 Red Blood Count 4.33 Hemoglobin 12.3 Hematocrit 37.9 Mean Corpuscular Volume 87.4 Mean Corpuscular Hemoglobin 28.4 Mean Corpuscular Hemoglobin 32.5 Concent Red Cell Distribution Width 14.3 Platelet Count 124 Mean Platelet Volume 10.7 Neutrophils (%) (Auto) 86.0 Lymphocytes (%) (Auto) 9.5 Monocytes (%) (Auto) 4.2 Eosinophils (%) (Auto) 0.0 Basophils (%) (Auto) 0.3 Neutrophils # (Auto) 12.7 Lymphocytes # (Auto) 1.4 Monocytes # (Auto) 0.6 Eosinophils # (Auto) 0.0 Basophils # (Auto) 0.0 CBC Comment DIFF FINAL Differential Comment Total Bilirubin 0.5 Aspartate Amino Transf 41 (AST/SGOT) Alanine Aminotransferase 94 (ALT/SGPT) Alkaline Phosphatase 51 Total Protein 5.3 Albumin 2.0 Date/Time Procedure Status Source Growth 09/17/16 22:30 Gram Stain - Final Complete Sputum Endotracheal 09/17/16 22:30 Sputum Culture - Final Complete Sputum Endotracheal NO GROWTH IN 48 HOURS. Radiology Last Impressions Chest X-Ray 09/12/16 0000 Signed Impressions: Service Date/Time: Monday, September 12, 2016 07:39 - CONCLUSION: Bibasilar airspace disease and bilateral pleural effusions larger on the right. Zechariah Sims MD Abdomen X-Ray 09/09/16 0600 Signed Impressions: Service Date/Time: August 04:54 - CONCLUSION: No significant interval change. Persistent upper mid abdomen small bowel dilatation and wall thickening. Filiberto Hall MD Abdomen/Pelvis CT 09/08/16 0000 Signed Impressions: Service Date/Time: Thursday, September 08, 2016 23:45 - CONCLUSION: 1. Marked inflammatory changes of left upper quadrant with severe mesenteric edema and adjacent short segment circumferential wall thickening of mid small bowel and adjacent distal transverse colon. Possible 4 cm abscess adjacent to the mid small bowel wall. Evaluation of intraluminal versus extraluminal fluid in this region is limited as intraluminal contrast is not present in this loop. A delayed scan may be beneficial for clarification. Differential diagnosis includes inflammatory bowel disease and infection. Moderate amount of free fluid similar to prior study. No evidence of free air. 2. Chronic pancreatitis. Filiberto Hall MD ADDENDUM: Delayed images show contrast filling the thickened loops of left upper quadrant small bowel. No evidence of abscess. Findings were discussed with Dr. Henriquez. Filiberto Hall MD Cardiovascular: Regular Lungs: Clear Abdomen: Other (midline incision stapled; c/d/i; ROSHAN x1 with SS drainage ), Post -op tenderness Extremities: Other (generalized edema ) A/P Problem List: (1) Sepsis (2) COPD (chronic obstructive pulmonary disease) (3) Hypokalemia (4) Hyponatremia (5) Abdominal pain (6) Enteritis (7) Ileus (8) Leukocytosis (9) Diabetes (10) Systemic inflammatory response syndrome (SIRS) Assessment and Plan 61 year old male POD12 Exploratory Laparotomy, lysis of adhesions -Extubated; on BiPAP -Will get swallow eval once oxygen levels stable and off BiPAP -Replace K -TF at 30 cc/hr -Monitor ROSHAN output -Discussed with Dr. Morales -Discussed with LINDSAY Atkinson Attending Note - Dr. Henriquez Abdomen benign; joseluis intact Peripheral edema improved. Increase TF as tolerated; nutritionally depleted. The exam, history, and the medical decision-making described in the above note were completed with the assistance of the mid-level provider. I reviewed and agree with the findings presented. I attest that I had a [id number] encounter with the patient on the same day, and personally performed and documented my assessment and findings in the medical record. Problem Qualifiers (1) Leukocytosis: Qualified Code: D72.829 - Leukocytosis, unspecified type Charisma Larson Sep 22, 2016 15:38 Bret Henriquez MD Sep 24, 2016 15:35
--- NOTE | 2016-09-22 16:06 | HHI.PR ---
Subjective Remarks %, maintans sat61 YOWM with Pancreatitis,COPD,Nicotine use had Exp Lap Extubated on 100% High flow On Precedex Did't cooperate for swallow eval Objective Vital Signs Vital Signs Date Time Temp Pulse Resp B/P Pulse Ox O2 Delivery O2 Flow Rate FiO2 09/22/16 14:00 93 09/22/16 12:00 71 09/22/16 12:00 97.6 71 21 142/79 90 09/22/16 10:25 82 High Flow Nasal Cannula 40.00 100 09/22/16 10:00 72 09/22/16 08:00 97.8 72 19 141/79 88 09/22/16 08:00 72 09/22/16 07:56 88 70 09/22/16 07:56 88 BiPAP 70 09/22/16 07:00 70 Bi-Pap 09/22/16 06:00 65 09/22/16 04:09 93 70 09/22/16 04:00 97.6 65 22 145/77 92 09/22/16 04:00 65 09/22/16 02:00 70 09/22/16 01:25 92 70 09/22/16 00:00 64 09/22/16 00:00 97.8 64 24 146/80 91 09/22/16 00:00 73 09/21/16 22:09 92 70 09/21/16 22:00 73 09/21/16 20:00 70 09/21/16 20:00 97.7 70 20 136/76 93 09/21/16 19:19 93 70 09/21/16 19:00 94 Bi-Pap 70 09/21/16 18:00 65 09/21/16 16:48 91 09/21/16 16:37 85 50 I/O 09/21/16 09/21/16 09/21/16 09/22/16 09/22/16 09/22/16 07:00 15:00 23:00 07:00 15:00 23:00 Intake Total 1395 ml 1137 ml 978 ml 1029 ml 1514 ml Output Total 1340 ml 1930 ml 2610 ml 1460 ml 2750 ml Balance 55 ml -793 ml -1632 ml -431 ml -1236 ml Intake Oral 0 ml IV Total 572 ml 560 ml 562 ml 665 ml 873 ml Tube Feeding 452 ml 159 ml 0 ml 0 ml 0 ml TPN/PPN 233 ml 269 ml 210 ml 228 ml 445 ml Lipid 78 ml 89 ml 146 ml 76 ml 96 ml Tube Irrigant 60 ml 60 ml 60 ml 60 ml 100 ml Output Urine Total 1300 ml 1900 ml 2600 ml 1400 ml 2650 ml Gastric Drainage Total 0 ml 0 ml Tube Feeding Residual Discard 0 ml Drainage Total 40 ml 30 ml 10 ml 60 ml 100 ml # Bowel Movements 0 0 1 0 1 Result Diagram: 09/22/1631909/22/16319 Objective Remarks GENERAL: MBMN WM , on BIPAP SKIN: Warm and dry. HEAD: Normocephalic. EYES: No scleral icterus. No injection or drainage. NECK: Supple, trachea midline. No JVD or lymphadenopathy. CARDIOVASCULAR: Regular rate and rhythm without murmurs, gallops, or rubs. RESPIRATORY: Breath sounds equal bilaterally. No accessory muscle use. GASTROINTESTINAL: Abdomen soft, non-tender, MUSCULOSKELETAL: No cyanosis, or edema. BACK: Nontender without obvious deformity. No CVA tenderness. A/P Assessment and Plan RF, s/p Extubation Hypoxia Hypotension-resolved S/P Exp Lap COPD Nicotine use DM PLAN: High flow 02 to keep sat >88% Broad spectrum Abx Aerosol nebs. Titerate Fi02 to keep sat 88-92% Precedex drip. Velasquez Hill MD Sep 22, 2016 16:06
[2016-09-22] MEDS: ENOXAPARIN SODIUM 40 MG/0.4 ML SYRINGE SQ SCH (17:10)
[2016-09-22] MEDS ORDERED: CLINIMIX E 5/25 2000 mL- >42 mls/hr IV-CENTRAL SCH ×3 (20:00)
[2016-09-23] VITALS (20 sets, daily range): BP systolic 119–156; BP diastolic 60–84; PULSE 57–87; RESP 20–24; TEMP 98.5–98.9; O2SAT 82–97
[2016-09-23] MEDS: POTASSIUM CHLOR 40 MEQ PREMIX 100 ML IV PRN (02:25)
[2016-09-23] MEDS: INSULIN NovoLIN REGULAR SUPPLEMENTAL SCALE SQ SCH ×6 (03:05→23:15)
[2016-09-23] MEDS: RESP: ALBUTEROL 2.5 MG/3 ML NEB (PRN) NEB (03:21)
[2016-09-23] MEDS: DEXMEDETOMIDINE INJ 1,000 MCG in SODIUM CHLOR 0.9% 250 ML INJ 240 ML IV SCH ×3 (05:31→22:04)
[2016-09-23] MEDS: methylPREDNISolone SOD SUCC 40 MG/1 ML VIAL IV PUSH SCH ×3 (05:33→22:04)
[2016-09-23] MEDS: LORATADINE 10 MG TAB PO SCH (08:27)
[2016-09-23] MEDS: guaiFENesin E.R. 600 MG TAB PO SCH ×2 (08:27→19:55)
[2016-09-23] MEDS: PANTOPRAZOLE SODIUM 40 MG VIAL IV PUSH SCH ×2 (08:27→19:55)
[2016-09-23] MEDS: LISINOPRIL 10 MG TAB PO SCH (08:27)
[2016-09-23] MEDS: FUROSEMIDE 20 MG/2 ML VIAL IV PUSH SCH ×2 (08:27→18:35)
[2016-09-23] MEDS: INSULIN DETEMIR 100 UNITS/ML VIAL SQ SCH ×2 (08:28→19:55)
[2016-09-23] MEDS: metroNIDAZOLE 500 MG INJ 100 ML IV SCH ×3 (08:28→22:04)
[2016-09-23] MEDS: RESP: BUDESONIDE 0.5 MG/2 ML NEB NEB SCH ×2 (08:32→20:17)
[2016-09-23] MEDS: CHLORHEXIDINE 0.12% (ORAL KIT) 15 ML CUP MT SCH ×2 (08:40→19:54)
[2016-09-23] MEDS: POTASSIUM CHLORIDE 25 MEQ EFFERVESCENT TAB NG SCH ×2 (08:40→19:55)
[2016-09-23] MEDS: SODIUM CHLORIDE 0.9% FLUSH 5 ML FLUSH FLUSH SCH ×2 (08:40→19:54)
[2016-09-23] MEDS: SODIUM CHLORIDE 0.9% FLUSH 10 ML FLUSH IVF SCH (08:40)
[2016-09-23] MEDS: FLUTICASONE PROPIONATE 50 MCG/ACT 16 GM NASAL SPRAY NASAL SCH ×2 (09:02→19:55)
--- NOTE | 2016-09-23 10:29 | HHI.PR ---
Subjective Subjective Notes Resting in bed on BiPAP Resting quietly Objective Vitals/I&O Vital Signs Date Time Temp Pulse Resp B/P Pulse Ox O2 Delivery O2 Flow Rate FiO2 09/23/16 08:32 92 70 09/23/16 06:00 67 09/23/16 04:00 98.7 21 146/79 09/22/16 20:11 High Flow Nasal Cannula 40.00 Labs Laboratory Tests Test 09/22/16 09/23/16 17:00 01:41 Potassium Level 3.3 3.3 Radiology Last Impressions Chest X-Ray 09/12/16 0000 Signed Impressions: Service Date/Time: Monday, September 12, 2016 07:39 - CONCLUSION: Bibasilar airspace disease and bilateral pleural effusions larger on the right. Zechariah Sims MD Abdomen X-Ray 09/09/16 0600 Signed Impressions: Service Date/Time: August 04:54 - CONCLUSION: No significant interval change. Persistent upper mid abdomen small bowel dilatation and wall thickening. Filiberto Hall MD Abdomen/Pelvis CT 09/08/16 0000 Signed Impressions: Service Date/Time: Thursday, September 08, 2016 23:45 - CONCLUSION: 1. Marked inflammatory changes of left upper quadrant with severe mesenteric edema and adjacent short segment circumferential wall thickening of mid small bowel and adjacent distal transverse colon. Possible 4 cm abscess adjacent to the mid small bowel wall. Evaluation of intraluminal versus extraluminal fluid in this region is limited as intraluminal contrast is not present in this loop. A delayed scan may be beneficial for clarification. Differential diagnosis includes inflammatory bowel disease and infection. Moderate amount of free fluid similar to prior study. No evidence of free air. 2. Chronic pancreatitis. Filiberto Hall MD ADDENDUM: Delayed images show contrast filling the thickened loops of left upper quadrant small bowel. No evidence of abscess. Findings were discussed with Dr. Henriquez. Filiberto Hall MD Cardiovascular: Regular Lungs: Clear Abdomen: Other (midline incision with joseluis---c/d/i; ROSHAN x1 with SS fluid ) Extremities: Other (generalized edema ) A/P Problem List: (1) Sepsis (2) COPD (chronic obstructive pulmonary disease) (3) Hypokalemia (4) Hyponatremia (5) Abdominal pain (6) Enteritis (7) Ileus (8) Leukocytosis (9) Diabetes (10) Systemic inflammatory response syndrome (SIRS) Assessment and Plan 61 year old male POD13 Exploratory Laparotomy, lysis of adhesions -Extubated; on BiPAP; continues to require high FiO2 requirements -Will get swallow eval once oxygen levels stable and off BiPAP -Replace K -TF at 50 cc/hr -Monitor ROSHAN output -Discussed with LINDSAY Jacinto Attending Note - Dr. Henriquez Abdomen benign Diuresing well Continue TF as protein stores still poor Replete K+ The exam, history, and the medical decision-making described in the above note were completed with the assistance of the mid-level provider. I reviewed and agree with the findings presented. I attest that I had a [id number] encounter with the patient on the same day, and personally performed and documented my assessment and findings in the medical record. Problem Qualifiers (1) Leukocytosis: Qualified Code: D72.829 - Leukocytosis, unspecified type Charisma Larson Sep 23, 2016 10:29 Bret Henriquez MD Sep 24, 2016 15:36
[2016-09-23 11:26] LABS: POTASSIUM 3.8 MEQ/L (3.5-5.1)
--- NOTE | 2016-09-23 12:19 | HHI.IDPN ---
Subjective Subjective Remarks Notes reviewed On BIPAP On precedex, difficult to arouse NO fever WBC down to 14 CXR with pulmonary edema Antibiotics None Lines [facility] - 09/16 Past Medical History Reviewed Allergies: Coded Allergies: Penicillin (Verified Allergy, Severe, SWELLING, 09/11/16) has tolerated Cephalosporins in previous admissions *MDRO Multi-Drug Resistant Organism (Verified Adverse Reaction, Unknown, ) Hx MRSA Sputum 2006, Wounds 2003 MRSA PCR Screen negative 11/25/14 & 09/10/15. Cleared per Infection Control. Patient does not require isolation for hx of MRSA prior to 09/10/15. Objective . Vital Signs Date Time Temp Pulse Resp B/P Pulse Ox O2 Delivery O2 Flow Rate FiO2 09/23/16 08:32 92 70 09/23/16 07:00 Bi-Pap 09/23/16 06:00 67 09/23/16 05:58 93 70 09/23/16 04:46 82 100 09/23/16 04:00 98.7 69 21 146/79 84 09/23/16 04:00 69 09/23/16 02:00 76 09/23/16 00:00 76 09/23/16 00:00 98.5 76 24 148/77 91 09/22/16 22:00 79 09/22/16 20:11 90 High Flow Nasal Cannula 40.00 80 09/22/16 20:00 98.2 75 24 140/71 92 09/22/16 20:00 84 09/22/16 19:00 92 Nasal Cannula 80 09/22/16 18:00 86 09/22/16 16:00 75 09/22/16 16:00 98.5 75 27 163/85 90 09/22/16 14:00 93 09/22/16 09/22/16 09/23/16 15:00 23:00 07:00 Intake Total 1514 ml 1184 ml 1140 ml Output Total 2750 ml 2200 ml 1450 ml Balance -1236 ml -1016 ml -310 ml Intake Oral 0 ml 0 ml 0 ml IV Total 873 ml 423 ml 626 ml Tube Feeding 0 ml 283 ml 414 ml TPN/PPN 445 ml 320 ml Lipid 96 ml 58 ml Tube Irrigant 100 ml 100 ml 100 ml Output Urine Total 2650 ml 2100 ml 1300 ml Gastric Drainage Total 0 ml 0 ml 0 ml Tube Feeding Residual Discard 0 ml 0 ml Drainage Total 100 ml 100 ml 150 ml # Bowel Movements 1 0 0 . Laboratory Tests Test 09/22/16 03:20 White Blood Count 14.7 TH/MM3 Red Blood Count 4.33 MIL/MM3 Hemoglobin 12.3 GM/DL Hematocrit 37.9 % Mean Corpuscular Volume 87.4 FL Mean Corpuscular Hemoglobin 28.4 PG Mean Corpuscular Hemoglobin 32.5 % Concent Red Cell Distribution Width 14.3 % Platelet Count 124 TH/MM3 Mean Platelet Volume 10.7 FL Neutrophils (%) (Auto) 86.0 % Lymphocytes (%) (Auto) 9.5 % Monocytes (%) (Auto) 4.2 % Eosinophils (%) (Auto) 0.0 % Basophils (%) (Auto) 0.3 % Neutrophils # (Auto) 12.7 TH/MM3 Lymphocytes # (Auto) 1.4 TH/MM3 Monocytes # (Auto) 0.6 TH/MM3 Eosinophils # (Auto) 0.0 TH/MM3 Basophils # (Auto) 0.0 TH/MM3 CBC Comment DIFF FINAL Differential Comment Laboratory Tests Test 09/21/16 09/21/16 09/22/16 09/22/16 13:09 17:15 03:20 17:00 Prealbumin 84 MG/DL Potassium Level 3.3 MEQ/L 2.7 MEQ/L 3.3 MEQ/L Sodium Level 150 MEQ/L 150 MEQ/L Chloride Level 106 MEQ/L 107 MEQ/L Carbon Dioxide Level 38.2 MEQ/L 40.1 MEQ/L Anion Gap 6 MEQ/L 3 MEQ/L Blood Urea Nitrogen 33 MG/DL 34 MG/DL Creatinine 0.66 MG/DL 0.64 MG/DL Estimat Glomerular Filtration 124 ML/MIN 128 ML/MIN Rate Random Glucose 214 MG/DL 87 MG/DL Calcium Level 7.6 MG/DL 7.9 MG/DL Phosphorus Level 2.9 MG/DL Magnesium Level 1.8 MG/DL Total Bilirubin 0.5 MG/DL Aspartate Amino Transf 41 U/L (AST/SGOT) Alanine Aminotransferase 94 U/L (ALT/SGPT) Alkaline Phosphatase 51 U/L Total Protein 5.3 GM/DL Albumin 2.0 GM/DL Test 09/23/16 09/23/16 01:41 10:38 Potassium Level 3.3 MEQ/L 3.8 MEQ/L Imaging Chest X-Ray 09/21/16 0000 Signed Impressions: Service Date/Time: Wednesday, September 21, 2016 10:17 - CONCLUSION: New mild bilateral lower lung zone hazy opacity suggesting mild pulmonary edema. There is also atelectasis at the inferior left lung base. Possible small pleural effusions. Filiberto Hall MD Chest X-Ray 09/19/16 1300 Signed Impressions: Service Date/Time: Monday, September 19, 2016 13:35 - CONCLUSION: Improved lung exam. Question presence of endotracheal tube with the tip at the level of the clavicles . Carrie Olvera MD Chest X-Ray 09/17/16 0600 Signed Impressions: Service Date/Time: Saturday, September 17, 2016 05:37 - CONCLUSION: 1. No pneumothoraces. 2. Unchanged bibasilar consolidation. Anibal Malhotra Jr., MD Chest X-Ray 09/16/16 1504 Signed Impressions: Service Date/Time: August 15:12 - CONCLUSION: Central line placement without pneumothorax. Gumaro Correa MD Chest X-Ray 09/16/16 0600 Signed Impressions: Service Date/Time: August 02:16 - CONCLUSION: No significant change has occurred. John Payne MD Chest X-Ray 09/14/16 1200 Signed Impressions: Service Date/Time: Wednesday, September 14, 2016 12:25 - CONCLUSION: 1. No pneumothorax. 2. Multiple tubes and lines are stable. 3. Scattered patchy infiltrates bilaterally. Jostin Crow MD Chest X-Ray 09/12/16 0000 Signed Impressions: Service Date/Time: Monday, September 12, 2016 07:39 - CONCLUSION: Bibasilar airspace disease and bilateral pleural effusions larger on the right. Zechariah Sims MD Abdomen X-Ray 09/09/16 0600 Signed Impressions: Service Date/Time: August 04:54 - CONCLUSION: No significant interval change. Persistent upper mid abdomen small bowel dilatation and wall thickening. Filiberto Hall MD Abdomen/Pelvis CT 09/08/16 0000 Signed Impressions: Service Date/Time: Thursday, September 08, 2016 23:45 - CONCLUSION: 1. Marked inflammatory changes of left upper quadrant with severe mesenteric edema and adjacent short segment circumferential wall thickening of mid small bowel and adjacent distal transverse colon. Possible 4 cm abscess adjacent to the mid small bowel wall. Evaluation of intraluminal versus extraluminal fluid in this region is limited as intraluminal contrast is not present in this loop. A delayed scan may be beneficial for clarification. Differential diagnosis includes inflammatory bowel disease and infection. Moderate amount of free fluid similar to prior study. No evidence of free air. 2. Chronic pancreatitis. Filiberto Hall MD ADDENDUM: Delayed images show contrast filling the thickened loops of left upper quadrant small bowel. No evidence of abscess. Findings were discussed with Dr. Henriquez. Fiilberto Hall MD Physical Exam GENERAL: difficult to arouse, on precedex, on BIPAP, not in distress SKIN: Cool and dry. No generalized rash HEAD: Atraumatic. Normocephalic. No temporal or scalp tenderness. EYES: [place] conjunctivae. Has scleral edema. No scleral icterus. No injection or drainage. ENT: Nose without bleeding, or purulent drainage. NECK: Supple, nontender, no meningeal signs. CARDIOVASCULAR: Regular rate and rhythm without murmurs, gallops, or rubs. RESPIRATORY: Coarse BS tanya, decreased at bases GASTROINTESTINAL: Abdomen soft, not tender. Bowel sounds (+). Not distended. Midline incision, dry, no erythema. MUSCULOSKELETAL: Extremities without clubbing. Edema better in LE. R hand swollen. Feet cool with cyanosis NEUROLOGICAL: On precedex LINE: No evidence of infection : Tavarez in place, urine looks clear Assessment & Plan Remarks IMPRESSION RECOMMENDATION Follow CBC Monitor off Abx Monitor progress Monitor resp status D/W RN Tati Hansen MD Sep 23, 2016 12:19 Tati Hansen MD Sep 23, 2016 12:19
--- NOTE | 2016-09-23 14:22 | HHI.CCPN ---
Subjective Remarks/Hospital Course This is a 61-year-old male with a past medical history of chronic pancreatitis, hypertension, type 2 diabetes who presented with abdominal pain that started Tuesday. Patient stated that abdominal pain is located in the left lower quadrant and it was very mild. He said over the weekend has worsened in intensity and is constant. Patient stated that he has some nausea that resolves or improves with food. Deny any emesis. Patient also complains of a chronic productive cough that has been the same. He denies any diarrhea or constipation and see that his stools are normal. Patient also denies any fever or chills. She was admitted to hospitalist service and was evaluated subsequently by GI, Dr. Pinto as well as Dr. Henriquez from general surgery in view of abnormal CT abdomen pelvis with left upper quadrant inflammatory change in these and treat with edema and KUBs raising question of SBO. She underwent E lap with lysis of lesions under general anesthesia by Dr. Henriquez on 09/10, EBL 100 cc, received 2 L crystalloid intraoperatively, postop diagnosis small bowel adhesions. Patient was kept intubated postoperatively and transferred to [facility]. I saw the patient shortly after his arrival to the ICU. He had just been started on Versed and fentanyl and dropped his blood pressure to the 60 systolic range. He was ordered a fluid bolus 2 L crystalloids stat and started on Levophed for hypotension. Stat cultures were sent. Patient also is having problem with his O2 sats were dropping in the 80s. Stat chest x-ray was ordered. 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 Patient was requiring 2 mics of Levophed for pressor support. 09/11: Ongoing hypotension and difficulty with oxygenation. Persistent hypotension responsive to volume. CVP 20. Suspect chronic pulmonary hypertension with heavily preload-dependent cardiac output. Will start milrinone for RV support and add vasopressin to levophed prn. Sustained tachycardia prohibits continued escalation of levophed. Underlying lung function is marginal at best. 09/12 0740 hrs: Severe chronic lung disease without significant reserve appears to be the primary pathophysiology here. We were able to produce acceptable cardiac output yesterday with milrinone and vasopressin, minor amounts levophed for peripheral support. He has developed refractory hypoxemia overnight in the 60 - 70% range which is incompatible with survival. Cardiopulmonary dynamics have been maximized and are beginning to deteriorate. Will get another CXR and see if thoracentesis will help lung function. 09/12 1600 hours: Continued difficulty with oxygenation, sats in range 78 - 81% .Cardioverted pharmacologically back to NSR and Flotrac output 7.8. Abdominal pressure 18. At this point he has adequate blood flow and oxygen delivery capacity despite low PO2. We have tried various vent modes and PC/AC appears to work best. SVV is 10; altogether these observations recommend diuresis to help oxygenation. He has horrible diffuse emphysema and a moderate right pleural effusion - may be forced to place a chest tube to allow better lung expansion. 09/13: Improved oxygenation after aggressive diuresis. Renal function remains stable. Alert, responsive. 09.14: Continued good diuresis after lasix. A-aO2 gradient marginally improved. Remains alert. 09/15: Currently afebrile. Almost off norepinephrine drip. Awake and alert and follows commands. FiO2 70%. 09/16: Complaining of air hunger on the ventilator. Currently afebrile. FiO2 back down at 70%. Inspiratory pressure decreased from 18 to 12. 09/17: Awake and alert. Central line was changed to the left side. Afebrile. FiO2 down to 60%. On 2 g per min of norepinephrine. 09/18: Awake and alert. No acute changes overnight. FiO2 was remains at 60%. Tolerating tube feeding. 09/19: Tmax 99.8. Currently 99. No bowel movement. Tolerating tube feeds. Right chest tube removed yesterday we'll attempt to remove left chest tube today. Awake and alert and following commands. 09/20: Orally intubated on mechanical ventilation. Off sedation he is awake and alert following commands. 09/21: Sedated, easily arousable, orally intubated on mechanical ventilation. Tolerating C Pap with pressure support overnight. 09/22: Extubated yesterday. Requiring BiPAP overnight. On Precedex. Awake and alert, following commands. Knows he is at the hospital and verbalizes appropriately. Being diuresed. 09/23: Was on high flow O2 till around 4 AM when he was placed back on BiPAP. He is back on high flow nasal cannula with 70% FiO2 40 L/m. On tube feeds. TPN discontinued yesterday. Left upper axillary swelling noted. Objective Vital Signs Date Time Temp Pulse Resp B/P Pulse Ox O2 Delivery O2 Flow Rate FiO2 09/23/16 12:00 72 09/23/16 11:20 93 70 09/23/16 07:00 Bi-Pap 09/23/16 04:00 98.7 21 146/79 09/22/16 20:11 40.00 Intake and Output 09/22/16 09/22/16 09/23/16 08:00 16:00 00:00 Intake Total 1029 ml 1514 ml 1184 ml Output Total 1460 ml 2750.0 ml 2200.0 ml Balance -431 ml -1236.0 ml -1016.0 ml Result Diagram: 09/22/16 0320 09/23/16 1038 Imaging Last 48 hours Impressions Chest X-Ray 09/21/16 0000 Signed Impressions: Service Date/Time: Wednesday, September 21, 2016 10:17 - CONCLUSION: New mild bilateral lower lung zone hazy opacity suggesting mild pulmonary edema. There is also atelectasis at the inferior left lung base. Possible small pleural effusions. Filiberto Hall MD Last Impressions Chest X-Ray 09/19/16 0600 Signed Impressions: Service Date/Time: Monday, September 19, 2016 05:09 - CONCLUSION: 1. No pneumothorax. 2. Some progression in the bilateral pulmonary infiltrates. Anibal Malhotra Jr., MD Abdomen X-Ray 09/09/16 0600 Signed Impressions: Service Date/Time: August 04:54 - CONCLUSION: No significant interval change. Persistent upper mid abdomen small bowel dilatation and wall thickening. Filiberto Hall MD Abdomen/Pelvis CT 09/08/16 0000 Signed Impressions: Service Date/Time: Thursday, September 08, 2016 23:45 - CONCLUSION: 1. Marked inflammatory changes of left upper quadrant with severe mesenteric edema and adjacent short segment circumferential wall thickening of mid small bowel and adjacent distal transverse colon. Possible 4 cm abscess adjacent to the mid small bowel wall. Evaluation of intraluminal versus extraluminal fluid in this region is limited as intraluminal contrast is not present in this loop. A delayed scan may be beneficial for clarification. Differential diagnosis includes inflammatory bowel disease and infection. Moderate amount of free fluid similar to prior study. No evidence of free air. 2. Chronic pancreatitis. Filiberto Hall MD ADDENDUM: Delayed images show contrast filling the thickened loops of left upper quadrant small bowel. No evidence of abscess. Findings were discussed with Dr. Henriquez. Filiberto Hall MD Objective Remarks GENERAL: 61-year-old male, currently in bed, on BiPAP prn/high flow nasal cannula SKIN: Warm and dry. No rash HEAD: Atraumatic. Normocephalic. EYES: Pupils equal and round about 3 mm bilaterally and reactive. No scleral icterus. No injection or drainage. ENT: No nasal bleeding or discharge. Mucous membranes pink and moist. NECK: Trachea midline. No JVD. Orotracheally intubated. Left IJ clean dry and intact CARDIOVASCULAR: RRR. S1, S2. No S4. Without murmur. RESPIRATORY: On high flow nasal cannula. Diminished breath sounds throughout. No rhonchi appreciated. No end expiratory wheeze. GASTROINTESTINAL: Abdomen slightly tender palpation. Normoactive bowel sounds. Incisional sutures intact without erythema or dehiscence. No drainage. ROSHAN drain positive serous drainage MUSCULOSKELETAL: Extremities with trace to 1+ lower extremity peripheral edema. No obvious deformities. NEUROLOGICAL: Awake and alert. No obvious cranial nerve deficits. Motor grossly within normal limits. Five out of 5 muscle strength in the arms and legs. Date of Insertion: Sep 16, 2016 Line: Central Venous Catheter Side: Left Location: Internal, Jugular A/P Assessment and Plan Neuro/Psych: Precedex to control agitation and for tolerating BiPAP as needed. Follow neuro status CV: Large A-a gradient A. fib with RVR - normal sinus rhythm Hypertension Dyslipidemia History of splenic artery stenting secondary to aneurysm Off all vasopressors and milrinone Amiodarone drip has been discontinued Currently on Prinivil 10 mg by mouth daily for hypertension with holding parameters for low blood pressure Off Solu-Cortef. Resp: Acute hypoxemic respiratory failure Severe COPD Pleural effusion status post bilateral chest tubes Extubated on 09/21. Requiring BiPAP when necessary. On high flow O2 with intermittent BiPAP. Started Solu-Medrol 80 mg IV every 8 hourly on 09/21 and diuresis to see if respiratory status improves. Bronchodilator therapy every 4 hours with albuterol every 2 hours for breakthrough dyspnea Pulmacort twice a day Followed by /pulmonology Right chest tube discontinued 09/18 Left chest tube discontinued 09/19 Patient is okay with intubation and tracheostomy if needed which I confirmed with him on 09/22 GI: Postop day #13 exploratory lap lysis of adhesions - Dr. Henriquez Chronic pancreatitis Abdominal ascites Internal hemorrhoids Elevated transaminases Status post EGD by GI. - Pathology revealed chronic gastritis inflammation Says post colonoscopy by GI 09/06 -incomplete splenic flexure normal mucosa. Internal hemorrhoids. TPN stopped on 09/22 as patient tolerating tube feeds Obtain speech and swallow eval. Protonix 40 mg IV twice a day Follow LFTs. slowly trending downward. : Tavarez has been placed for accurate I's and O's in a critically ill patient Endo: Diabetes mellitus Sliding-scale insulin with Accu-Cheks every 4 hours maintain euglycemia. Levemir 8 units twice a day. 10 units sliding-scale insulin past 24 hours Holding home medication glipizide 10 mg by mouth daily Renal: Strict intake output, monitor and replete electrolytes, follow BUN/creatinine. Continue diuresis with Lasix. Will give Diamox 500 mg IV for contraction alkalosis. Heme: Leukocytosis Anemia Follow CBC. ID: ID has stopped all antibiotics since 09/22. Pertinent cultures 09/17 - sputum - no growth 09/11 - blood culture - no growth 09/10 - blood culture 2 - no growth 09/10 - urine - no growth 09/02 - blood culture 2 - no growth FEN: Hypernatremia Replace electrolytes as clinically indicated per ICU electrolyte protocol MSK: PT/OT evaluate and treat Access - Right IJ CVL placed 09/08-09/16 - Left IJ CVL 09/16 at present Prophylaxis - GI - Protonix IV twice a day - DVT - SCD/pharmacological prophylaxis when okayed by surgery Condition remains critical. Patient at high risk for requiring reintubation. Critical Care: The total critical care time was 35 minutes. Time to perform other separately billable procedures was not included in the critical care time. Solomon Morales MD Sep 23, 2016 14:22
[2016-09-23 15:09] LABS: BICARBONATE 33.5 MEQ/L (21.0-32.0)
--- NOTE | 2016-09-23 16:43 | RADRPT ---
EXAM DATE/TIME: 09/23/2016 15:27 [facility] COMPARISON: No previous studies available for comparison. INDICATIONS : Right arm swelling. MEDICAL HISTORY : Hypercholesterolemia. Methicillin-resistant Staphylococcus aureus. Chronic obstructive pulmonary dise ase. Pneumonia. Pancreatitis. GERD. Diabetes. COPD. SURGICAL HISTORY : Cholecystectomy. Back surgery. ENCOUNTER: Initial ACUITY: 1 day PAIN SCORE: 2/10 LOCATION: Right arm. FINDINGS: There is spontaneous flow documented in the brachial, axillary, and subclavian veins. The vessels ar e compressible and augmentation response is documented. No filling defects are seen. The flow is ph asic with respiration. Direction of flow in the jugular vein is caudal. There is superficial thromb ophlebitis involving the right basilic vein as well as the cephalic vein. CONCLUSION: 1. Superficial thrombosed by this involving the cephalic and basilic veins. No deep venous thrombosis is identified. Manjeet Guevara MD on September 23, 2016 at 16:40 Board Certified Radiologist. This report was verified electronically.
--- NOTE | 2016-09-23 18:21 | HHI.PR ---
Subjective Remarks %, maintans sat61 YOWM with Pancreatitis,COPD,Nicotine use had Exp Lap Extubated w On Precedex Did't cooperate for swallow eval Started On TF Off TPN Was on BIPAP, now on high flow 02 Objective Vital Signs Vital Signs Date Time Temp Pulse Resp B/P Pulse Ox O2 Delivery O2 Flow Rate FiO2 09/23/16 17:38 97 High Flow Nasal Cannula 40.00 80 09/23/16 16:15 90 70 09/23/16 16:00 98.9 87 22 156/84 95 09/23/16 16:00 87 09/23/16 14:23 93 70 09/23/16 14:00 72 09/23/16 12:00 98.8 68 24 119/60 92 09/23/16 12:00 72 09/23/16 11:20 93 70 09/23/16 10:00 68 09/23/16 08:32 92 70 09/23/16 08:00 98.6 68 22 138/74 90 09/23/16 08:00 57 09/23/16 07:00 Bi-Pap 09/23/16 06:00 67 09/23/16 05:58 93 70 09/23/16 04:46 82 100 09/23/16 04:00 98.7 69 21 146/79 84 09/23/16 04:00 69 09/23/16 02:00 76 09/23/16 00:00 76 09/23/16 00:00 98.5 76 24 148/77 91 09/22/16 22:00 79 09/22/16 20:11 90 High Flow Nasal Cannula 40.00 80 09/22/16 20:00 98.2 75 24 140/71 92 09/22/16 20:00 84 09/22/16 19:00 92 Nasal Cannula 80 I/O 09/22/16 09/22/16 09/22/16 09/23/16 09/23/16 09/23/16 07:00 15:00 23:00 07:00 15:00 23:00 Intake Total 1029 ml 1514 ml 1184 ml 1140 ml 298 ml Output Total 1460 ml 2750 ml 2200 ml 1450 ml 2220 ml 0 ml Balance -431 ml -1236 ml -1016 ml -310 ml -1922 ml 0 ml Intake Oral 0 ml 0 ml 0 ml IV Total 665 ml 873 ml 423 ml 626 ml 298 ml Tube Feeding 0 ml 0 ml 283 ml 414 ml TPN/PPN 228 ml 445 ml 320 ml Lipid 76 ml 96 ml 58 ml Tube Irrigant 60 ml 100 ml 100 ml 100 ml Output Urine Total 1400 ml 2650 ml 2100 ml 1300 ml 2150 ml Gastric Drainage Total 0 ml 0 ml 0 ml Tube Feeding Residual Discard 0 ml 0 ml 0 ml 0 ml Drainage Total 60 ml 100 ml 100 ml 150 ml 70 ml # Bowel Movements 0 1 0 0 Result Diagram: 09/22/16 0320 09/23/16 1038 Objective Remarks GENERAL: MBMN WM , on BIPAP SKIN: Warm and dry. HEAD: Normocephalic. EYES: No scleral icterus. No injection or drainage. NECK: Supple, trachea midline. No JVD or lymphadenopathy. CARDIOVASCULAR: Regular rate and rhythm without murmurs, gallops, or rubs. RESPIRATORY: Breath sounds equal bilaterally. No accessory muscle use. GASTROINTESTINAL: Abdomen soft, non-tender, MUSCULOSKELETAL: No cyanosis, or edema. BACK: Nontender without obvious deformity. No CVA tenderness. A/P Assessment and Plan RF, s/p Extubation Hypoxia Hypotension-resolved S/P Exp Lap COPD Nicotine use DM PLAN: High flow 02 to keep sat >88% Broad spectrum Abx Aerosol nebs. Titerate Fi02 to keep sat 88-92% TF Velasquez Hill MD Sep 23, 2016 18:21
[2016-09-23] MEDS: ENOXAPARIN SODIUM 40 MG/0.4 ML SYRINGE SQ SCH (18:35)
[2016-09-24] VITALS (17 sets, daily range): BP systolic 131–167; BP diastolic 68–83; PULSE 66–91; RESP 17–22; TEMP 97.8–99; O2SAT 92–96
[2016-09-24] MEDS: INSULIN NovoLIN REGULAR SUPPLEMENTAL SCALE SQ SCH ×5 (04:00→20:00)
[2016-09-24 04:05] LABS: AUTOMATED NEUTROPHIL # 12.8 TH/MM3 (1.8-7.7); BASOPHIL # 0.1 TH/MM3 (0-0.2); BASOPHIL % 0.4 % (0.0-2.0); HEMATOCRIT 41.5 % (39.0-51.0); HEMO FLAGS DIFF FINAL; LYMPH % 8.6 % (9.0-44.0); LYMPHOCYTE # 1.3 TH/MM3 (1.0-4.8); MEAN CELL VOLUME 88.2 FL (80.0-100.0); MEAN CORPUSCULAR HEMOGLOBIN 28.7 PG (27.0-34.0); MEAN CORPUSCULAR HGB CONC 32.5 % (32.0-36.0); MONO % 5.6 % (0.0-8.0); NEUT % 85.4 % (16.0-70.0); PLATELET COUNT 157 TH/MM3 (150-450); RED CELL DISTRIBUTION WIDTH 14.9 % (11.6-17.2)
[2016-09-24] MEDS: DEXMEDETOMIDINE INJ 1,000 MCG in SODIUM CHLOR 0.9% 250 ML INJ 240 ML IV SCH ×2 (05:15→13:44)
[2016-09-24] MEDS: methylPREDNISolone SOD SUCC 40 MG/1 ML VIAL IV PUSH SCH ×3 (05:33→21:37)
[2016-09-24] MEDS: metroNIDAZOLE 500 MG INJ 100 ML IV SCH ×3 (05:33→21:48)
[2016-09-24 05:48] LABS: BLOOD UREA NITROGEN 50 MG/DL (7-18)
[2016-09-24 05:49] LABS: ALKALINE PHOSPHATASE 62 U/L (45-117); ALT (GPT) 78 U/L (12-78); ANION GAP 7 MEQ/L (5-15); AST (GOT) 33 U/L (15-37); BICARBONATE 34.7 MEQ/L (21.0-32.0); CHLORIDE 110 MEQ/L (98-107); GLOMERULAR FILTRATION RATE 115 ML/MIN (>89); POTASSIUM 3.4 MEQ/L (3.5-5.1); SODIUM (NA) 152 MEQ/L (136-145); TOTAL BILIRUBIN ADULT 0.5 MG/DL (0.2-1.0)
[2016-09-24] MEDS: POTASSIUM CHLOR 40 MEQ PREMIX 100 ML IV PRN (05:55)
--- NOTE | 2016-09-24 06:53 | RADRPT ---
EXAM DATE/TIME: 09/24/2016 06:14 [facility] COMPARISON: CHEST SINGLE AP, September 19, 2016, 13:35. CHEST SINGLE AP, September 21, 2016, 10:17. INDICATIONS : Evaluate for respiratory failure. MEDICAL HISTORY : Hypertension. Chronic obstructive pulmonary disease. SURGICAL HISTORY : None. ENCOUNTER: Subsequent ACUITY: 1 month PAIN SCORE: Non-responsive. LOCATION: chest FINDINGS: Portable AP view of the chest demonstrates a normal-sized cardiac silhouette. Left IJ line and nasoga stric tube remain present. There are stable bibasilar pleural-parenchymal opacities. No pneumothorax is visualized. Parenchymal changes at the right apex are stable. CONCLUSION: Stable chest x-ray with mild bibasilar opacities which could represent small pleural effusions. There is also likely associated consolidation in the lower lung zones. Gumaro Brown MD on September 24, 2016 at 6:50 Board Certified Radiologist. This report was verified electronically.
[2016-09-24] MEDS: RESP: BUDESONIDE 0.5 MG/2 ML NEB NEB SCH ×2 (07:31→22:44)
[2016-09-24] MEDS: RESP: ALBUTEROL 2.5 MG/3 ML NEB (PRN) NEB (07:31)
[2016-09-24] MEDS: CHLORHEXIDINE 0.12% (ORAL KIT) 15 ML CUP MT SCH ×2 (08:00→20:00)
[2016-09-24] MEDS: PANTOPRAZOLE SODIUM 40 MG VIAL IV PUSH SCH ×2 (08:30→21:38)
[2016-09-24] MEDS: LISINOPRIL 10 MG TAB PO SCH (08:30)
[2016-09-24] MEDS: POTASSIUM CHLORIDE 25 MEQ EFFERVESCENT TAB NG SCH ×2 (08:30→21:00)
[2016-09-24] MEDS: guaiFENesin E.R. 600 MG TAB PO SCH ×2 (08:30→21:37)
[2016-09-24] MEDS: FUROSEMIDE 20 MG/2 ML VIAL IV PUSH SCH ×2 (08:30→18:06)
[2016-09-24] MEDS: FLUTICASONE PROPIONATE 50 MCG/ACT 16 GM NASAL SPRAY NASAL SCH ×2 (08:31→21:00)
[2016-09-24] MEDS: SODIUM CHLORIDE 0.9% FLUSH 10 ML FLUSH IVF SCH (08:31)
[2016-09-24] MEDS: LORATADINE 10 MG TAB PO SCH (08:31)
[2016-09-24] MEDS: INSULIN DETEMIR 100 UNITS/ML VIAL SQ SCH ×2 (08:31→21:48)
[2016-09-24] MEDS: SODIUM CHLORIDE 0.9% FLUSH 5 ML FLUSH FLUSH SCH ×2 (08:32→21:00)
--- NOTE | 2016-09-24 10:26 | HHI.CCPN ---
Subjective Remarks/Hospital Course This is a 61-year-old male with a past medical history of chronic pancreatitis, hypertension, type 2 diabetes who presented with abdominal pain that started Tuesday. Patient stated that abdominal pain is located in the left lower quadrant and it was very mild. He said over the weekend has worsened in intensity and is constant. Patient stated that he has some nausea that resolves or improves with food. Deny any emesis. Patient also complains of a chronic productive cough that has been the same. He denies any diarrhea or constipation and see that his stools are normal. Patient also denies any fever or chills. She was admitted to hospitalist service and was evaluated subsequently by GI, Dr. Pinto as well as Dr. Henriquez from general surgery in view of abnormal CT abdomen pelvis with left upper quadrant inflammatory change in these and treat with edema and KUBs raising question of SBO. She underwent E lap with lysis of lesions under general anesthesia by Dr. Henriquez on 09/10, EBL 100 cc, received 2 L crystalloid intraoperatively, postop diagnosis small bowel adhesions. Patient was kept intubated postoperatively and transferred to [facility]. I saw the patient shortly after his arrival to the ICU. He had just been started on Versed and fentanyl and dropped his blood pressure to the 60 systolic range. He was ordered a fluid bolus 2 L crystalloids stat and started on Levophed for hypotension. Stat cultures were sent. Patient also is having problem with his O2 sats were dropping in the 80s. Stat chest x-ray was ordered. While waiting for chest x-ray, ET tube company pilot balloon appeared damaged hence cuff was not holding air so patient was sedated with Etomidate/ Fentanyl/ Rocuronium and ET tube was changed over a tube exchanger which was confirmed with a postprocedure chest x-ray with satisfactory placement of ET tube, right IJ central line in place, bilateral interstitial infiltrates with hyperinflated lung rothman, no pneumothorax. Patient was requiring 2 mics of Levophed for pressor support. 09/11: Ongoing hypotension and difficulty with oxygenation. Persistent hypotension responsive to volume. CVP 20. Suspect chronic pulmonary hypertension with heavily preload-dependent cardiac output. Will start milrinone for RV support and add vasopressin to levophed prn. Sustained tachycardia prohibits continued escalation of levophed. Underlying lung function is marginal at best. 09/12 0740 hrs: Severe chronic lung disease without significant reserve appears to be the primary pathophysiology here. We were able to produce acceptable cardiac output yesterday with milrinone and vasopressin, minor amounts levophed for peripheral support. He has developed refractory hypoxemia overnight in the 60 - 70% range which is incompatible with survival. Cardiopulmonary dynamics have been maximized and are beginning to deteriorate. Will get another CXR and see if thoracentesis will help lung function. 09/12 1600 hours: Continued difficulty with oxygenation, sats in range 78 - 81% .Cardioverted pharmacologically back to NSR and Flotrac output 7.8. Abdominal pressure 18. At this point he has adequate blood flow and oxygen delivery capacity despite low PO2. We have tried various vent modes and PC/AC appears to work best. SVV is 10; altogether these observations recommend diuresis to help oxygenation. He has horrible diffuse emphysema and a moderate right pleural effusion - may be forced to place a chest tube to allow better lung expansion. 09/13: Improved oxygenation after aggressive diuresis. Renal function remains stable. Alert, responsive. 09.14: Continued good diuresis after lasix. A-aO2 gradient marginally improved. Remains alert. 09/15: Currently afebrile. Almost off norepinephrine drip. Awake and alert and follows commands. FiO2 70%. 09/16: Complaining of air hunger on the ventilator. Currently afebrile. FiO2 back down at 70%. Inspiratory pressure decreased from 18 to 12. 09/17: Awake and alert. Central line was changed to the left side. Afebrile. FiO2 down to 60%. On 2 g per min of norepinephrine. 09/18: Awake and alert. No acute changes overnight. FiO2 was remains at 60%. Tolerating tube feeding. 09/19: Tmax 99.8. Currently 99. No bowel movement. Tolerating tube feeds. Right chest tube removed yesterday we'll attempt to remove left chest tube today. Awake and alert and following commands. 09/20: Orally intubated on mechanical ventilation. Off sedation he is awake and alert following commands. 09/21: Sedated, easily arousable, orally intubated on mechanical ventilation. Tolerating C Pap with pressure support overnight. 09/22: Extubated yesterday. Requiring BiPAP overnight. On Precedex. Awake and alert, following commands. Knows he is at the hospital and verbalizes appropriately. Being diuresed. 09/23: Was on high flow O2 till around 4 AM when he was placed back on BiPAP. He is back on high flow nasal cannula with 70% FiO2 40 L/m. On tube feeds. TPN discontinued yesterday. Left upper axillary swelling noted. 09/24: Was placed on BiPAP last night. Appears comfortable on high flow nasal cannula this morning. Remains on Precedex. -4.8 L in the last 24 hours. Continues to diurese well. Tolerating tube feeds. Objective Vital Signs Date Time Temp Pulse Resp B/P Pulse Ox O2 Delivery O2 Flow Rate FiO2 09/24/16 07:33 93 High Flow Nasal Cannula 40.00 80 09/24/16 06:00 69 09/24/16 04:00 98.5 21 152/78 Intake and Output 09/23/16 09/23/16 09/24/16 08:00 16:00 00:00 Intake Total 1140 ml 298 ml 481 ml Output Total 1450.0 ml 2220.0 ml 2350.0 ml Balance -310.0 ml -1922.0 ml -1869.0 ml Result Diagram: 09/24/16 0330 09/24/16 0330 Imaging Last 48 hours Impressions Chest X-Ray 09/21/16 0000 Signed Impressions: Service Date/Time: Wednesday, September 21, 2016 10:17 - CONCLUSION: New mild bilateral lower lung zone hazy opacity suggesting mild pulmonary edema. There is also atelectasis at the inferior left lung base. Possible small pleural effusions. Filiberto Hall MD Last Impressions Chest X-Ray 09/19/16 0600 Signed Impressions: Service Date/Time: Monday, September 19, 2016 05:09 - CONCLUSION: 1. No pneumothorax. 2. Some progression in the bilateral pulmonary infiltrates. Anibal Malhotra Jr., MD Abdomen X-Ray 09/09/16 0600 Signed Impressions: Service Date/Time: August 04:54 - CONCLUSION: No significant interval change. Persistent upper mid abdomen small bowel dilatation and wall thickening. Filiberto Hall MD Abdomen/Pelvis CT 09/08/16 0000 Signed Impressions: Service Date/Time: Thursday, September 08, 2016 23:45 - CONCLUSION: 1. Marked inflammatory changes of left upper quadrant with severe mesenteric edema and adjacent short segment circumferential wall thickening of mid small bowel and adjacent distal transverse colon. Possible 4 cm abscess adjacent to the mid small bowel wall. Evaluation of intraluminal versus extraluminal fluid in this region is limited as intraluminal contrast is not present in this loop. A delayed scan may be beneficial for clarification. Differential diagnosis includes inflammatory bowel disease and infection. Moderate amount of free fluid similar to prior study. No evidence of free air. 2. Chronic pancreatitis. Filiberto Hall MD ADDENDUM: Delayed images show contrast filling the thickened loops of left upper quadrant small bowel. No evidence of abscess. Findings were discussed with Dr. Henriquez. Filiberto Hall MD Objective Remarks GENERAL: 61-year-old male, currently in bed, on BiPAP prn/high flow nasal cannula, on Precedex drip. SKIN: Warm and dry. No rash HEAD: Atraumatic. Normocephalic. EYES: Pupils equal and round about 3 mm bilaterally and reactive. No scleral icterus. No injection or drainage. ENT: No nasal bleeding or discharge. Mucous membranes pink and moist. NECK: Trachea midline. No JVD. Orotracheally intubated. Left IJ clean dry and intact CARDIOVASCULAR: RRR. S1, S2. No S4. Without murmur. RESPIRATORY: On high flow nasal cannula. Diminished breath sounds throughout. No rhonchi appreciated. No end expiratory wheeze. GASTROINTESTINAL: Abdomen slightly tender palpation. Normoactive bowel sounds. Incisional sutures intact without erythema or dehiscence. No drainage. ROSHAN drain positive serous drainage MUSCULOSKELETAL: Extremities with trace to 1+ lower extremity peripheral edema. No obvious deformities. NEUROLOGICAL: Drowsy, arousable. No obvious cranial nerve deficits. Motor grossly within normal limits. Five out of 5 muscle strength in the arms and legs. Date of Insertion: Sep 16, 2016 Line: Central Venous Catheter Side: Left Location: Internal, Jugular A/P Assessment and Plan Neuro/Psych: Precedex to control agitation and for tolerating BiPAP as needed. Follow neuro status. We will add Seroquel 50 mg twice a day to attempt titrating off Precedex. CV: Large A-a gradient A. fib with RVR - normal sinus rhythm Hypertension Dyslipidemia History of splenic artery stenting secondary to aneurysm Off all vasopressors and milrinone Amiodarone drip has been discontinued Currently on Prinivil 10 mg by mouth daily for hypertension with holding parameters for low blood pressure Off Solu-Cortef. Resp: Acute hypoxemic respiratory failure Severe COPD Pleural effusion status post bilateral chest tubes Extubated on 09/21. Requiring BiPAP when necessary. On high flow O2 with intermittent BiPAP. Started Solu-Medrol 80 mg IV every 8 hourly on 09/21 and diuresis to see if respiratory status improves. Bronchodilator therapy every 4 hours with albuterol every 2 hours for breakthrough dyspnea Pulmacort twice a day Followed by /pulmonology Right chest tube discontinued 09/18 Left chest tube discontinued 09/19 Patient is okay with intubation and tracheostomy if needed which I confirmed with him on 09/22 GI: Postop day #14 exploratory lap lysis of adhesions - Dr. Henriquez Chronic pancreatitis Abdominal ascites Internal hemorrhoids Elevated transaminases Status post EGD by GI. - Pathology revealed chronic gastritis inflammation Says post colonoscopy by GI 09/06 -incomplete splenic flexure normal mucosa. Internal hemorrhoids. TPN stopped on 09/22 as patient tolerating tube feeds Obtain speech and swallow eval when resp status permits. Protonix 40 mg IV twice a day Follow LFTs. slowly trending downward. : Tavarez has been placed for accurate I's and O's in a critically ill patient Endo: Diabetes mellitus Sliding-scale insulin with Accu-Cheks every 4 hours maintain euglycemia. Levemir 8 units twice a day. 10 units sliding-scale insulin past 24 hours Holding home medication glipizide 10 mg by mouth daily Renal: Strict intake output, monitor and replete electrolytes, follow BUN/creatinine. Continue diuresis with Lasix. Received Diamox 500 mg IV x 3 for contraction alkalosis. Heme: Leukocytosis Anemia Follow CBC. ID: ID has stopped all antibiotics since 09/22. Pertinent cultures 09/17 - sputum - no growth 09/11 - blood culture - no growth 09/10 - blood culture 2 - no growth 09/10 - urine - no growth 09/02 - blood culture 2 - no growth FEN: Hypernatremia Replace electrolytes as clinically indicated per ICU electrolyte protocol MSK: PT/OT evaluate and treat Access - Right IJ CVL placed 09/08-09/16 - Left IJ CVL 09/16 at present Prophylaxis - GI - Protonix IV twice a day - DVT - SCD/pharmacological prophylaxis when okayed by surgery Condition remains critical. Patient at high risk for requiring reintubation. Critical Care: The total critical care time was 35 minutes. Time to perform other separately billable procedures was not included in the critical care time. Solomon Morales MD Sep 24, 2016 10:26
[2016-09-24] MEDS: QUEtiapine FUMARATE 25 MG TAB PO SCH ×2 (12:08→21:37)
[2016-09-24] MEDS: FREE WATER G-TUBE SCH ×3 (12:08→20:00)
--- NOTE | 2016-09-24 13:50 | HHI.IDPN ---
Subjective Subjective Remarks Notes reviewed On nasal O2 currently Sats are good On precedex NO fever WBC down to 14 Getting diuresis Antibiotics None Lines J - 09/16 Past Medical History Reviewed Allergies: Coded Allergies: Penicillin (Verified Allergy, Severe, SWELLING, 09/11/16) has tolerated Cephalosporins in previous admissions *MDRO Multi-Drug Resistant Organism (Verified Adverse Reaction, Unknown, ) Hx MRSA Sputum 2006, Wounds 2003 MRSA PCR Screen negative 11/25/14 & 09/10/15. Cleared per Infection Control. Patient does not require isolation for hx of MRSA prior to 09/10/15. Objective . Vital Signs Date Time Temp Pulse Resp B/P Pulse Ox O2 Delivery O2 Flow Rate FiO2 09/24/16 10:00 76 09/24/16 08:00 74 09/24/16 08:00 98.9 76 19 156/78 95 09/24/16 07:33 93 High Flow Nasal Cannula 40.00 80 09/24/16 07:00 95 Nasal Cannula 8.00 70 09/24/16 06:00 69 09/24/16 04:00 77 09/24/16 04:00 98.5 77 21 152/78 96 09/24/16 03:15 94 High Flow Nasal Cannula 40.00 80 09/24/16 02:00 68 09/24/16 01:35 93 50 09/24/16 00:00 66 09/24/16 00:00 99.0 66 17 131/68 94 09/23/16 22:00 62 09/23/16 20:00 98.6 65 20 136/76 93 09/23/16 20:00 66 09/23/16 19:20 97 50 09/23/16 19:00 95 Bi-Pap 100 09/23/16 18:00 78 09/23/16 17:38 97 High Flow Nasal Cannula 40.00 80 09/23/16 16:15 90 70 09/23/16 16:00 98.9 87 22 156/84 95 09/23/16 16:00 87 09/23/16 14:23 93 70 09/23/16 14:00 72 09/23/16 09/23/16 09/24/16 15:00 23:00 07:00 Intake Total 298 ml 481 ml 784 ml Output Total 2220 ml 2350 ml 1825 ml Balance -1922 ml -1869 ml -1041 ml IV Total 298 ml 249 ml 404 ml Tube Feeding 232 ml 380 ml Output Urine Total 2150 ml 2300 ml 1800 ml Tube Feeding Residual Discard 0 ml 0 ml 0 ml Drainage Total 70 ml 50 ml 25 ml . Laboratory Tests Test 09/24/16 03:30 White Blood Count 15.0 TH/MM3 Red Blood Count 4.70 MIL/MM3 Hemoglobin 13.5 GM/DL Hematocrit 41.5 % Mean Corpuscular Volume 88.2 FL Mean Corpuscular Hemoglobin 28.7 PG Mean Corpuscular Hemoglobin 32.5 % Concent Red Cell Distribution Width 14.9 % Platelet Count 157 TH/MM3 Mean Platelet Volume 11.5 FL Neutrophils (%) (Auto) 85.4 % Lymphocytes (%) (Auto) 8.6 % Monocytes (%) (Auto) 5.6 % Eosinophils (%) (Auto) 0.0 % Basophils (%) (Auto) 0.4 % Neutrophils # (Auto) 12.8 TH/MM3 Lymphocytes # (Auto) 1.3 TH/MM3 Monocytes # (Auto) 0.8 TH/MM3 Eosinophils # (Auto) 0.0 TH/MM3 Basophils # (Auto) 0.1 TH/MM3 CBC Comment DIFF FINAL Differential Comment Laboratory Tests Test 09/22/16 09/23/16 09/23/16 09/24/16 17:00 01:41 10:38 03:30 Potassium Level 3.3 MEQ/L 3.3 MEQ/L 3.8 MEQ/L 3.4 MEQ/L Sodium Level 150 MEQ/L 152 MEQ/L Chloride Level 108 MEQ/L 110 MEQ/L Carbon Dioxide Level 33.5 MEQ/L 34.7 MEQ/L Anion Gap 9 MEQ/L 7 MEQ/L Blood Urea Nitrogen 44 MG/DL 50 MG/DL Creatinine 0.81 MG/DL 0.70 MG/DL Estimat Glomerular Filtration 98 ML/MIN 115 ML/MIN Rate Random Glucose 224 MG/DL 124 MG/DL Calcium Level 8.1 MG/DL 7.9 MG/DL Total Bilirubin 0.5 MG/DL Aspartate Amino Transf 33 U/L (AST/SGOT) Alanine Aminotransferase 78 U/L (ALT/SGPT) Alkaline Phosphatase 62 U/L Total Protein 5.5 GM/DL Albumin 1.9 GM/DL Imaging Chest X-Ray 09/21/16 0000 Signed Impressions: Service Date/Time: Wednesday, September 21, 2016 10:17 - CONCLUSION: New mild bilateral lower lung zone hazy opacity suggesting mild pulmonary edema. There is also atelectasis at the inferior left lung base. Possible small pleural effusions. Filiberto Hall MD Chest X-Ray 09/19/16 1300 Signed Impressions: Service Date/Time: Monday, September 19, 2016 13:35 - CONCLUSION: Improved lung exam. Question presence of endotracheal tube with the tip at the level of the clavicles . Carrie Olvera MD Chest X-Ray 09/17/16 0600 Signed Impressions: Service Date/Time: Saturday, September 17, 2016 05:37 - CONCLUSION: 1. No pneumothoraces. 2. Unchanged bibasilar consolidation. Anibal Malhotra Jr., MD Chest X-Ray 09/16/16 1504 Signed Impressions: Service Date/Time: August 15:12 - CONCLUSION: Central line placement without pneumothorax. Gumaro Correa MD Chest X-Ray 09/16/16 0600 Signed Impressions: Service Date/Time: August 02:16 - CONCLUSION: No significant change has occurred. John Payne MD Chest X-Ray 09/14/16 1200 Signed Impressions: Service Date/Time: Wednesday, September 14, 2016 12:25 - CONCLUSION: 1. No pneumothorax. 2. Multiple tubes and lines are stable. 3. Scattered patchy infiltrates bilaterally. Jostin Crow MD Chest X-Ray 09/12/16 0000 Signed Impressions: Service Date/Time: Monday, September 12, 2016 07:39 - CONCLUSION: Bibasilar airspace disease and bilateral pleural effusions larger on the right. Zechariah Sims MD Abdomen X-Ray 09/09/16 0600 Signed Impressions: Service Date/Time: August 04:54 - CONCLUSION: No significant interval change. Persistent upper mid abdomen small bowel dilatation and wall thickening. Filiberto Hall MD Abdomen/Pelvis CT 09/08/16 0000 Signed Impressions: Service Date/Time: Thursday, September 08, 2016 23:45 - CONCLUSION: 1. Marked inflammatory changes of left upper quadrant with severe mesenteric edema and adjacent short segment circumferential wall thickening of mid small bowel and adjacent distal transverse colon. Possible 4 cm abscess adjacent to the mid small bowel wall. Evaluation of intraluminal versus extraluminal fluid in this region is limited as intraluminal contrast is not present in this loop. A delayed scan may be beneficial for clarification. Differential diagnosis includes inflammatory bowel disease and infection. Moderate amount of free fluid similar to prior study. No evidence of free air. 2. Chronic pancreatitis. Filiberto Hall MD ADDENDUM: Delayed images show contrast filling the thickened loops of left upper quadrant small bowel. No evidence of abscess. Findings were discussed with Dr. Henriquez. Filiberto Hall MD Physical Exam GENERAL: Comfortable on nasal O2 SKIN: Cool and dry. No generalized rash HEAD: Atraumatic. Normocephalic. No temporal or scalp tenderness. EYES: [place] conjunctivae. No scleral icterus. No injection or drainage. ENT: Nose without bleeding, or purulent drainage. NECK: . Supple, nontender, no meningeal signs. CARDIOVASCULAR: Regular rate and rhythm without murmurs, gallops, or rubs. RESPIRATORY: Coarse BS tanya, decreased at bases GASTROINTESTINAL: Abdomen soft, not tender. Bowel sounds (+). Not distended. Midline incision, dry, no erythema. MUSCULOSKELETAL: Extremities without clubbing. Edema better in LE. R hand swollen. Feet cool NEUROLOGICAL: On precedex LINE: No evidence of infection : Tavarez in place, urine looks clear Assessment & Plan Remarks IMPRESSION Sepsis with shock, S/P exp lap with lysis of adhesions. - off pressors - better ? Spillage peritonitis. - ?shock due to other factors - C/S ok so far - better - abdomen exam benigh Respiratory failure, extubated 09/21 - fluid, PNA, ARDS S/P exp lap, LUCY, for SBO Allergy to PCN, has tolerated Cephalosporins in the past Leukocytosis, better RECOMMENDATION Monitor off Abx Monitor progress Monitor resp status Seems clinically doing well from ID standpoint I will be available prn Please call if with any new ID issue or question Tati Hansen MD Sep 24, 2016 13:50
--- NOTE | 2016-09-24 15:39 | HHI.PR ---
Subjective Subjective Notes On 70% high flow oxygen Tolerating some PO's, but TF continues at 50ml/hr Objective Vitals/I&O Vital Signs Date Time Temp Pulse Resp B/P Pulse Ox O2 Delivery O2 Flow Rate FiO2 09/24/16 12:00 70 09/24/16 12:00 98.7 18 157/76 95 09/24/16 07:33 High Flow Nasal Cannula 40.00 80 Labs Laboratory Tests Test 09/24/16 03:30 White Blood Count 15.0 Red Blood Count 4.70 Hemoglobin 13.5 Hematocrit 41.5 Mean Corpuscular Volume 88.2 Mean Corpuscular Hemoglobin 28.7 Mean Corpuscular Hemoglobin 32.5 Concent Red Cell Distribution Width 14.9 Platelet Count 157 Mean Platelet Volume 11.5 Neutrophils (%) (Auto) 85.4 Lymphocytes (%) (Auto) 8.6 Monocytes (%) (Auto) 5.6 Eosinophils (%) (Auto) 0.0 Basophils (%) (Auto) 0.4 Neutrophils # (Auto) 12.8 Lymphocytes # (Auto) 1.3 Monocytes # (Auto) 0.8 Eosinophils # (Auto) 0.0 Basophils # (Auto) 0.1 CBC Comment DIFF FINAL Differential Comment Sodium Level 152 Potassium Level 3.4 Chloride Level 110 Carbon Dioxide Level 34.7 Anion Gap 7 Blood Urea Nitrogen 50 Creatinine 0.70 Estimat Glomerular Filtration 115 Rate Random Glucose 124 Calcium Level 7.9 Total Bilirubin 0.5 Aspartate Amino Transf 33 (AST/SGOT) Alanine Aminotransferase 78 (ALT/SGPT) Alkaline Phosphatase 62 Total Protein 5.5 Albumin 1.9 Radiology Last Impressions Chest X-Ray 09/12/16 0000 Signed Impressions: Service Date/Time: Monday, September 12, 2016 07:39 - CONCLUSION: Bibasilar airspace disease and bilateral pleural effusions larger on the right. Zechariah Sims MD Abdomen X-Ray 09/09/16 0600 Signed Impressions: Service Date/Time: August 04:54 - CONCLUSION: No significant interval change. Persistent upper mid abdomen small bowel dilatation and wall thickening. Filiberto Hall MD Abdomen/Pelvis CT 09/08/16 0000 Signed Impressions: Service Date/Time: Thursday, September 08, 2016 23:45 - CONCLUSION: 1. Marked inflammatory changes of left upper quadrant with severe mesenteric edema and adjacent short segment circumferential wall thickening of mid small bowel and adjacent distal transverse colon. Possible 4 cm abscess adjacent to the mid small bowel wall. Evaluation of intraluminal versus extraluminal fluid in this region is limited as intraluminal contrast is not present in this loop. A delayed scan may be beneficial for clarification. Differential diagnosis includes inflammatory bowel disease and infection. Moderate amount of free fluid similar to prior study. No evidence of free air. 2. Chronic pancreatitis. Filiberto Hall MD ADDENDUM: Delayed images show contrast filling the thickened loops of left upper quadrant small bowel. No evidence of abscess. Findings were discussed with Dr. Henriquez. Filiberto Hall MD Lungs: Clear Abdomen: Non-distended, Non-tender Narrative Exam ROSHAN output serosanguinous Incision clean and dry; joseluis intact without erythema. A/P Problem List: (1) Sepsis (2) COPD (chronic obstructive pulmonary disease) (3) Hypokalemia (4) Hyponatremia (5) Abdominal pain (6) Enteritis (7) Ileus (8) Leukocytosis (9) Diabetes (10) Systemic inflammatory response syndrome (SIRS) Assessment and Plan 61 year old male POD14 Exploratory Laparotomy, lysis of adhesions -Extubated; on BiPAP; continues to require high FiO2 requirements -Passed swallow eval but PO intake not adequate yet -Replace K -TF at 50 cc/hr -Monitor ROSHAN output; D/C when output lower (mostly ascitic fluid now) -Remove joseluis when pt. tolerating regular diet Problem Qualifiers (1) Leukocytosis: Qualified Code: D72.829 - Leukocytosis, unspecified type Bret Henriquez MD Sep 24, 2016 15:39
--- NOTE | 2016-09-24 17:43 | HHI.PR ---
Subjective Remarks %, maintans sat61 YOWM with Pancreatitis,COPD,Nicotine use had Exp Lap Extubated w On Precedex On 60% high flow Started PO Objective Vital Signs Vital Signs Date Time Temp Pulse Resp B/P Pulse Ox O2 Delivery O2 Flow Rate FiO2 09/24/16 16:00 97.8 84 18 167/83 92 09/24/16 16:00 84 09/24/16 14:00 74 09/24/16 12:00 70 09/24/16 12:00 98.7 70 18 157/76 95 09/24/16 10:00 76 09/24/16 08:00 74 09/24/16 08:00 98.9 76 19 156/78 95 09/24/16 07:33 93 High Flow Nasal Cannula 40.00 80 09/24/16 07:00 95 Nasal Cannula 8.00 70 09/24/16 06:00 69 09/24/16 04:00 77 09/24/16 04:00 98.5 77 21 152/78 96 09/24/16 03:15 94 High Flow Nasal Cannula 40.00 80 09/24/16 02:00 68 09/24/16 01:35 93 50 09/24/16 00:00 66 09/24/16 00:00 99.0 66 17 131/68 94 09/23/16 22:00 62 09/23/16 20:00 98.6 65 20 136/76 93 09/23/16 20:00 66 09/23/16 19:20 97 50 09/23/16 19:00 95 Bi-Pap 100 09/23/16 18:00 78 I/O 09/23/16 09/23/16 09/23/16 09/24/16 09/24/16 09/24/16 07:00 15:00 23:00 07:00 15:00 23:00 Intake Total 1140 ml 298 ml 481 ml 784 ml 1458 ml Output Total 1450 ml 2220 ml 2350 ml 1825 ml 2980 ml 0 ml Balance -310 ml -1922 ml -1869 ml -1041 ml -1522 ml 0 ml Intake Oral 0 ml 60 ml IV Total 626 ml 298 ml 249 ml 404 ml 552 ml Tube Feeding 414 ml 232 ml 380 ml 416 ml Tube Irrigant 100 ml 30 ml Other 400 ml Output Urine Total 1300 ml 2150 ml 2300 ml 1800 ml 2950 ml Gastric Drainage Total 0 ml Tube Feeding Residual Discard 0 ml 0 ml 0 ml 0 ml 0 ml 0 ml Drainage Total 150 ml 70 ml 50 ml 25 ml 30 ml # Bowel Movements 0 1 Result Diagram: 09/24/16 0330 09/24/16 1623 Objective Remarks GENERAL: MBMN WM , on BIPAP SKIN: Warm and dry. HEAD: Normocephalic. EYES: No scleral icterus. No injection or drainage. NECK: Supple, trachea midline. No JVD or lymphadenopathy. CARDIOVASCULAR: Regular rate and rhythm without murmurs, gallops, or rubs. RESPIRATORY: Breath sounds equal bilaterally. No accessory muscle use. GASTROINTESTINAL: Abdomen soft, non-tender, MUSCULOSKELETAL: No cyanosis, or edema. BACK: Nontender without obvious deformity. No CVA tenderness. A/P Assessment and Plan RF, s/p Extubation Hypoxia Hypotension-resolved S/P Exp Lap COPD Nicotine use DM PLAN: High flow 02 to keep sat >88% Broad spectrum Abx Aerosol nebs. Titerate Fi02 to keep sat 88-92% TF Encourage Velasquez Kumar MD Sep 24, 2016 17:43
[2016-09-24] MEDS: ENOXAPARIN SODIUM 40 MG/0.4 ML SYRINGE SQ SCH (18:06)
[2016-09-25] VITALS (16 sets, daily range): BP systolic 106–152; BP diastolic 59–90; PULSE 95–107; RESP 20–25; TEMP 98.6–100.5; O2SAT 93–97
[2016-09-25] MEDS: FREE WATER G-TUBE SCH ×4 (03:15→12:00)
[2016-09-25] MEDS: INSULIN NovoLIN REGULAR SUPPLEMENTAL SCALE SQ SCH ×6 (03:16→20:00)
[2016-09-25] MEDS: methylPREDNISolone SOD SUCC 40 MG/1 ML VIAL IV PUSH SCH ×3 (05:19→23:24)
[2016-09-25] MEDS: metroNIDAZOLE 500 MG INJ 100 ML IV SCH (05:19)
[2016-09-25 07:04] LABS: AUTOMATED NEUTROPHIL # 22.1 TH/MM3 (1.8-7.7); BASOPHIL # 0.1 TH/MM3 (0-0.2); BASOPHIL % 0.3 % (0.0-2.0); HEMATOCRIT 42.7 % (39.0-51.0); LYMPH % 7.7 % (9.0-44.0); LYMPHOCYTE # 2.1 TH/MM3 (1.0-4.8); MEAN CELL VOLUME 87.4 FL (80.0-100.0); MEAN CORPUSCULAR HEMOGLOBIN 28.9 PG (27.0-34.0); MONO % 12.9 % (0.0-8.0); NEUT % 79.1 % (16.0-70.0); PLATELET COUNT 192 TH/MM3 (150-450); RED BLOOD COUNT 4.89 MIL/MM3 (4.50-5.90); RED CELL DISTRIBUTION WIDTH 15.3 % (11.6-17.2); WHITE BLOOD COUNT 27.9 TH/MM3 (4.0-11.0)
[2016-09-25 07:19] LABS: HEMO FLAGS AUTO DIFF
[2016-09-25 07:34] LABS: ALKALINE PHOSPHATASE 74 U/L (45-117); ALT (GPT) 70 U/L (12-78); ANION GAP 6 MEQ/L (5-15); AST (GOT) 29 U/L (15-37); BICARBONATE 35.8 MEQ/L (21.0-32.0); BLOOD UREA NITROGEN 55 MG/DL (7-18); CHLORIDE 112 MEQ/L (98-107); GLOMERULAR FILTRATION RATE 108 ML/MIN (>89); MAGNESIUM 2.1 MG/DL (1.5-2.5); POTASSIUM 3.5 MEQ/L (3.5-5.1); SODIUM (NA) 154 MEQ/L (136-145); TOTAL BILIRUBIN ADULT 0.5 MG/DL (0.2-1.0)
[2016-09-25] MEDS: CHLORHEXIDINE 0.12% (ORAL KIT) 15 ML CUP MT SCH ×2 (08:00→20:00)
[2016-09-25] MEDS: guaiFENesin E.R. 600 MG TAB PO SCH ×2 (08:45→20:20)
[2016-09-25] MEDS: FUROSEMIDE 20 MG/2 ML VIAL IV PUSH SCH (08:45)
[2016-09-25] MEDS: LISINOPRIL 10 MG TAB PO SCH (08:45)
[2016-09-25] MEDS: QUEtiapine FUMARATE 25 MG TAB PO SCH ×2 (08:45→20:20)
[2016-09-25] MEDS: PANTOPRAZOLE SODIUM 40 MG VIAL IV PUSH SCH ×2 (08:45→20:20)
[2016-09-25] MEDS: LORATADINE 10 MG TAB PO SCH (08:45)
[2016-09-25] MEDS: FLUTICASONE PROPIONATE 50 MCG/ACT 16 GM NASAL SPRAY NASAL SCH ×2 (08:45→20:20)
[2016-09-25] MEDS: POTASSIUM CHLORIDE 25 MEQ EFFERVESCENT TAB NG SCH (08:45)
[2016-09-25] MEDS: SODIUM CHLORIDE 0.9% FLUSH 5 ML FLUSH FLUSH SCH ×2 (08:46→20:20)
[2016-09-25] MEDS: SODIUM CHLORIDE 0.9% FLUSH 10 ML FLUSH IVF SCH (08:46)
[2016-09-25] MEDS: INSULIN DETEMIR 100 UNITS/ML VIAL SQ SCH ×2 (09:00→20:22)
[2016-09-25 09:23] LABS: BANDS 1 % (0-6); NEUTROPHIL # MANUAL DIFF 20.9 TH/MM3 (1.8-7.7); POLYS (SEG NEUTROPHILS) 74 % (16-70); WBC DIFF SAMPLE 100
[2016-09-25 09:24] LABS: PLATELET ESTIMATE SMEAR NORMAL (NORMAL); PLATELET MORPHOLOGY ENLARGED (NORMAL); SCAN/DIFF FINAL DIFF MANUAL
[2016-09-25] MEDS: POTASSIUM PHOSPHATE INJ 30 MMOL in SODIUM CHLOR 0.9% 250 ML INJ 250 ML IV PRN (09:37)
--- NOTE | 2016-09-25 10:52 | HHI.PR ---
Subjective Subjective Notes On CPAP currently. Receiving TF at 60ml/hr with minimal residuals Objective Vitals/I&O Vital Signs Date Time Temp Pulse Resp B/P Pulse Ox O2 Delivery O2 Flow Rate FiO2 09/25/16 10:00 98 09/25/16 08:00 100.1 21 142/73 94 09/25/16 07:00 Bi-Pap 09/25/16 04:25 40 09/24/16 22:45 40.00 Labs Laboratory Tests Test 09/24/16 09/25/16 16:23 06:28 Potassium Level 3.5 3.5 White Blood Count 27.9 Red Blood Count 4.89 Hemoglobin 14.1 Hematocrit 42.7 Mean Corpuscular Volume 87.4 Mean Corpuscular Hemoglobin 28.9 Mean Corpuscular Hemoglobin 33.0 Concent Red Cell Distribution Width 15.3 Platelet Count 192 Mean Platelet Volume 11.4 Neutrophils (%) (Auto) 79.1 Lymphocytes (%) (Auto) 7.7 Monocytes (%) (Auto) 12.9 Eosinophils (%) (Auto) 0.0 Basophils (%) (Auto) 0.3 Neutrophils # (Auto) 22.1 Lymphocytes # (Auto) 2.1 Monocytes # (Auto) 3.6 Eosinophils # (Auto) 0.0 Basophils # (Auto) 0.1 CBC Comment AUTO DIFF Differential Total Cells 100 Counted Neutrophils % (Manual) 74 Band Neutrophils % 1 Lymphocytes % 12 Monocytes % 13 Neutrophils # (Manual) 20.9 Differential Comment FINAL DIFF MANUAL Platelet Estimate NORMAL Platelet Morphology Comment ENLARGED Red Cell Morphology Comment NORMAL Sodium Level 154 Chloride Level 112 Carbon Dioxide Level 35.8 Anion Gap 6 Blood Urea Nitrogen 55 Creatinine 0.74 Estimat Glomerular Filtration 108 Rate Random Glucose 104 Calcium Level 8.2 Phosphorus Level 2.2 Magnesium Level 2.1 Total Bilirubin 0.5 Aspartate Amino Transf 29 (AST/SGOT) Alanine Aminotransferase 70 (ALT/SGPT) Alkaline Phosphatase 74 Total Protein 5.4 Albumin 2.1 Radiology Last Impressions Chest X-Ray 09/12/16 0000 Signed Impressions: Service Date/Time: Monday, September 12, 2016 07:39 - CONCLUSION: Bibasilar airspace disease and bilateral pleural effusions larger on the right. Zechariah Sims MD Abdomen X-Ray 09/09/16 0600 Signed Impressions: Service Date/Time: August 04:54 - CONCLUSION: No significant interval change. Persistent upper mid abdomen small bowel dilatation and wall thickening. Filiberto Hall MD Abdomen/Pelvis CT 09/08/16 0000 Signed Impressions: Service Date/Time: Thursday, September 08, 2016 23:45 - CONCLUSION: 1. Marked inflammatory changes of left upper quadrant with severe mesenteric edema and adjacent short segment circumferential wall thickening of mid small bowel and adjacent distal transverse colon. Possible 4 cm abscess adjacent to the mid small bowel wall. Evaluation of intraluminal versus extraluminal fluid in this region is limited as intraluminal contrast is not present in this loop. A delayed scan may be beneficial for clarification. Differential diagnosis includes inflammatory bowel disease and infection. Moderate amount of free fluid similar to prior study. No evidence of free air. 2. Chronic pancreatitis. Filiberto Hall MD ADDENDUM: Delayed images show contrast filling the thickened loops of left upper quadrant small bowel. No evidence of abscess. Findings were discussed with Dr. Henriquez. Filiberto Hall MD Lungs: Clear Abdomen: Non-distended, Non-tender Narrative Exam ROSHAN output serosanguinous Incision clean and dry; joseluis intact without erythema. A/P Problem List: (1) Sepsis (2) COPD (chronic obstructive pulmonary disease) (3) Hypokalemia (4) Hyponatremia (5) Abdominal pain (6) Enteritis (7) Ileus (8) Leukocytosis (9) Diabetes (10) Systemic inflammatory response syndrome (SIRS) Assessment and Plan 61 year old male POD15 Exploratory Laparotomy, lysis of adhesions -Extubated; on BiPAP; continues to require high FiO2 requirements -Passed swallow eval but PO intake not adequate yet - WBC's spiked today -TF at 60 cc/hr -Monitor ROSHAN output; D/C when output lower (mostly ascitic fluid now) -Remove joseluis when pt. tolerating regular diet Discussed with Dr. Humphrey; will review central line age and consider changing line vs. CT chest/abdomen. Lung source most likely. Doubt source is abdominal, given that it is nontender and less distended. Problem Qualifiers (1) Leukocytosis: Qualified Code: D72.829 - Leukocytosis, unspecified type Bret Henriquez MD Sep 25, 2016 10:52
[2016-09-25] MEDS: RESP: BUDESONIDE 0.5 MG/2 ML NEB NEB SCH ×2 (11:13→20:35)
[2016-09-25] MEDS: RESP: ALBUTEROL 2.5 MG/3 ML NEB (PRN) NEB (11:14)
--- NOTE | 2016-09-25 11:43 | HHI.CCPN ---
Subjective Remarks/Hospital Course This is a 61-year-old male with a past medical history of chronic pancreatitis, hypertension, type 2 diabetes who presented with abdominal pain that started Tuesday. Patient stated that abdominal pain is located in the left lower quadrant and it was very mild. He said over the weekend has worsened in intensity and is constant. Patient stated that he has some nausea that resolves or improves with food. Deny any emesis. Patient also complains of a chronic productive cough that has been the same. He denies any diarrhea or constipation and see that his stools are normal. Patient also denies any fever or chills. She was admitted to hospitalist service and was evaluated subsequently by GI, Dr. Pinto as well as Dr. Henriquez from general surgery in view of abnormal CT abdomen pelvis with left upper quadrant inflammatory change in these and treat with edema and KUBs raising question of SBO. She underwent E lap with lysis of lesions under general anesthesia by Dr. Henriquez on 09/10, EBL 100 cc, received 2 L crystalloid intraoperatively, postop diagnosis small bowel adhesions. Patient was kept intubated postoperatively and transferred to [facility]. I saw the patient shortly after his arrival to the ICU. He had just been started on Versed and fentanyl and dropped his blood pressure to the 60 systolic range. He was ordered a fluid bolus 2 L crystalloids stat and started on Levophed for hypotension. Stat cultures were sent. Patient also is having problem with his O2 sats were dropping in the 80s. Stat chest x-ray was ordered. While waiting for chest x-ray, ET tube agricultural aircraft pilot balloon appeared damaged hence cuff was not holding air so patient was sedated with Etomidate/ Fentanyl/ Rocuronium and ET tube was changed over a tube exchanger which was confirmed with a postprocedure chest x-ray with satisfactory placement of ET tube, right IJ central line in place, bilateral interstitial infiltrates with hyperinflated lung rothman, no pneumothorax. Patient was requiring 2 mics of Levophed for pressor support. 09/11: Ongoing hypotension and difficulty with oxygenation. Persistent hypotension responsive to volume. CVP 20. Suspect chronic pulmonary hypertension with heavily preload-dependent cardiac output. Will start milrinone for RV support and add vasopressin to levophed prn. Sustained tachycardia prohibits continued escalation of levophed. Underlying lung function is marginal at best. 09/12 0740 hrs: Severe chronic lung disease without significant reserve appears to be the primary pathophysiology here. We were able to produce acceptable cardiac output yesterday with milrinone and vasopressin, minor amounts levophed for peripheral support. He has developed refractory hypoxemia overnight in the 60 - 70% range which is incompatible with survival. Cardiopulmonary dynamics have been maximized and are beginning to deteriorate. Will get another CXR and see if thoracentesis will help lung function. 09/12 1600 hours: Continued difficulty with oxygenation, sats in range 78 - 81% .Cardioverted pharmacologically back to NSR and Flotrac output 7.8. Abdominal pressure 18. At this point he has adequate blood flow and oxygen delivery capacity despite low PO2. We have tried various vent modes and PC/AC appears to work best. SVV is 10; altogether these observations recommend diuresis to help oxygenation. He has horrible diffuse emphysema and a moderate right pleural effusion - may be forced to place a chest tube to allow better lung expansion. 09/13: Improved oxygenation after aggressive diuresis. Renal function remains stable. Alert, responsive. 09.14: Continued good diuresis after lasix. A-aO2 gradient marginally improved. Remains alert. 09/15: Currently afebrile. Almost off norepinephrine drip. Awake and alert and follows commands. FiO2 70%. 09/16: Complaining of air hunger on the ventilator. Currently afebrile. FiO2 back down at 70%. Inspiratory pressure decreased from 18 to 12. 09/17: Awake and alert. Central line was changed to the left side. Afebrile. FiO2 down to 60%. On 2 g per min of norepinephrine. 09/18: Awake and alert. No acute changes overnight. FiO2 was remains at 60%. Tolerating tube feeding. 09/19: Tmax 99.8. Currently 99. No bowel movement. Tolerating tube feeds. Right chest tube removed yesterday we'll attempt to remove left chest tube today. Awake and alert and following commands. 09/20: Orally intubated on mechanical ventilation. Off sedation he is awake and alert following commands. 09/21: Sedated, easily arousable, orally intubated on mechanical ventilation. Tolerating C Pap with pressure support overnight. 09/22: Extubated yesterday. Requiring BiPAP overnight. On Precedex. Awake and alert, following commands. Knows he is at the hospital and verbalizes appropriately. Being diuresed. 09/23: Was on high flow O2 till around 4 AM when he was placed back on BiPAP. He is back on high flow nasal cannula with 70% FiO2 40 L/m. On tube feeds. TPN discontinued yesterday. Left upper axillary swelling noted. 09/24: Was placed on BiPAP last night. Appears comfortable on high flow nasal cannula this morning. Remains on Precedex. -4.8 L in the last 24 hours. Continues to diurese well. Tolerating tube feeds. Subjective 09/25: Continues on BiPAP at 40%. Remains on low-dose Precedex. -4 L past 24 hours. Excellent diuresis. Hold Lasix today hold potassium supplementation. Noted elevated white blood cell count. Objective Vital Signs Date Time Temp Pulse Resp B/P Pulse Ox O2 Delivery O2 Flow Rate FiO2 09/25/16 10:00 98 09/25/16 08:00 100.1 21 142/73 94 09/25/16 07:00 Bi-Pap 09/25/16 04:25 40 09/24/16 22:45 40.00 Intake and Output 09/24/16 09/24/16 09/25/16 08:00 16:00 00:00 Intake Total 784 ml 1458 ml 781 ml Output Total 1825.0 ml 2980.0 ml 3020 ml Balance -1041.0 ml -1522.0 ml -2239 ml Result Diagram: 09/25/1662709/25/16 0628 Imaging Last Impressions Chest X-Ray 09/24/16 0600 Signed Impressions: Service Date/Time: Saturday, September 24, 2016 06:14 - CONCLUSION: Stable chest x-ray with mild bibasilar opacities which could represent small pleural effusions. There is also likely associated consolidation in the lower lung zones. Gumaro Brown MD Upper Extremity Ultrasound 09/23/16 0000 Signed Impressions: Service Date/Time: August 15:27 - CONCLUSION: 1. Superficial thrombosed by this involving the cephalic and basilic veins. No deep venous thrombosis is identified. Manjeet Guevara MD Abdomen X-Ray 09/09/16 0600 Signed Impressions: Service Date/Time: August 04:54 - CONCLUSION: No significant interval change. Persistent upper mid abdomen small bowel dilatation and wall thickening. Filiberto Hall MD Abdomen/Pelvis CT 09/08/16 0000 Signed Impressions: Service Date/Time: Thursday, September 08, 2016 23:45 - CONCLUSION: 1. Marked inflammatory changes of left upper quadrant with severe mesenteric edema and adjacent short segment circumferential wall thickening of mid small bowel and adjacent distal transverse colon. Possible 4 cm abscess adjacent to the mid small bowel wall. Evaluation of intraluminal versus extraluminal fluid in this region is limited as intraluminal contrast is not present in this loop. A delayed scan may be beneficial for clarification. Differential diagnosis includes inflammatory bowel disease and infection. Moderate amount of free fluid similar to prior study. No evidence of free air. 2. Chronic pancreatitis. Filiberto Hall MD ADDENDUM: Delayed images show contrast filling the thickened loops of left upper quadrant small bowel. No evidence of abscess. Findings were discussed with Dr. Henriquez. Filiberto Hall MD Objective Remarks GENERAL: 61-year-old male, currently in bed, on BiPAP in moderate respiratory distress SKIN: Warm and dry. No rash HEAD: Atraumatic. Normocephalic. EYES: Pupils equal and round about 3 mm bilaterally and reactive. No scleral icterus. No injection or drainage. ENT: No nasal bleeding or discharge. Mucous membranes pink and moist. NECK: Trachea midline. No JVD. Orotracheally intubated. Left IJ clean dry and intact CARDIOVASCULAR: RRR. S1, S2. No S4. Without murmur. RESPIRATORY: On high flow nasal cannula. Diminished breath sounds throughout. No rhonchi appreciated. No end expiratory wheeze. GASTROINTESTINAL: Abdomen slightly tender palpation. Normoactive bowel sounds. Incisional sutures intact without erythema or dehiscence. No drainage. MUSCULOSKELETAL: Extremities with trace extremity peripheral edema. No obvious deformities. NEUROLOGICAL: Arousable and follows commands. No obvious cranial nerve deficits. Motor grossly within normal limits. Five out of 5 muscle strength in the arms and legs. Date of Insertion: Sep 16, 2016 Line: Central Venous Catheter Side: Left Location: Internal, Jugular A/P Assessment and Plan Neuro/Psych: Toxic metabolic encephalopathy Acetaminophen for fever Morphine 2-4 mg IV as needed for pain management Off Precedex drip. Off fentanyl drip. Seroquel 25 twice a day. Wean down as tolerated CV: A. fib with RVR - normal sinus rhythm Hypertension Dyslipidemia History of splenic artery stenting secondary to aneurysm Off all vasopressors and milrinone Amiodarone drip has been discontinued 1 week Currently on Prinivil 10 mg by mouth twice daily for hypertension with holding parameters for low blood pressure Off Solu-Cortef. Resp: Acute hypoxemic respiratory failure Severe COPD Pleural effusion status post bilateral chest tubes Extubated on 09/21. Requiring BiPAP when necessary. On high flow O2 with intermittent BiPAP. Started Solu-Medrol 80 mg IV every 8 hourly on 09/21 and diuresis to see if respiratory status improves. Diuresis discontinued 09/25 DuoNeb therapy every 6 hours with albuterol every 2 hours for breakthrough dyspnea Pulmacort twice a day Followed by /pulmonology Right chest tube discontinued 09/18 Left chest tube discontinued 09/19 Patient is okay with intubation and tracheostomy if needed which I confirmed with him on 09/22 GI: Postop day #16 exploratory lap lysis of adhesions - Dr. Henriquez Chronic pancreatitis Abdominal ascites Internal hemorrhoids Elevated transaminases Status post EGD by GI. - Pathology revealed chronic gastritis inflammation Says post colonoscopy by GI 09/06 -incomplete splenic flexure normal mucosa. Internal hemorrhoids. TPN stopped on 09/22 as patient tolerating tube feeds Currently tube feeds Glucerna 1.5 at 60 cc an hour/goal. ADA diet/. Pured With honey thickened liquids. Protonix 40 mg IV twice a day Follow LFTs. slowly trending downward. : Tavarez has been placed for accurate I's and O's in a critically ill patient Endo: Diabetes mellitus Sliding-scale insulin with Accu-Cheks every 4 hours maintain euglycemia. /High dose . 25 units sliding scale past 24 hours Levemir 8 units twice a day. Holding home medication glipizide 10 mg by mouth daily Renal: Strict intake output, monitor and replete electrolytes, follow BUN/creatinine. Continue diuresis with Lasix. Received Diamox 500 mg IV x 3 for contraction alkalosis. Heme: Leukocytosis Anemia Right cephalic/basilic superficial thrombus Follow CBC. On Lovenox 40 subcutaneous daily ID: ID has stopped all antibiotics since 09/22. Pertinent cultures 09/17 - sputum - no growth 09/11 - blood culture - no growth 09/10 - blood culture 2 - no growth 09/10 - urine - no growth 09/02 - blood culture 2 - no growth We'll discontinue left IJ central line today. Replace peripherals. Check CT chest today. Panculture. FEN: Hypernatremia Replace electrolytes as clinically indicated per ICU electrolyte protocol Free water was discontinued by primary team cc every 4 hours MSK: PT/OT evaluate and treat Access - Right IJ CVL placed 09/08-09/16 - Left IJ CVL 09/16 at present Prophylaxis - GI - Protonix IV twice a day - DVT - SCD/Lovenox Critical Care: The total critical care time was 35 minutes. Time to perform other separately billable procedures was not included in the critical care time. Wilder Humphrey MD Sep 25, 2016 11:43
[2016-09-25 13:30] LABS: BLOOD, URINE SMALL (NEG); GLUCOSE,URINE NEG (NEG); KETONE, URINE NEG (NEG); MUCUS URINE FEW /lpf (OCC); NITRITE,URINE NEG (NEG); TRANSITIONAL EPI CELLS, URINE <1 /hpf; URINE COLOR YELLOW (YELLW/STRAW)
[2016-09-25 13:55] LABS: COMMENT (UR) CATH-CULT NOT IND; CULTURE IF INDICATED CATH CULTURE NOT IND
[2016-09-25] MEDS: RESP: ALBUTEROL 2.5 MG/IPRATROPIUM 0.5 MG NEB (SCH) NEB ×2 (16:08→20:35)
[2016-09-25] MEDS: ENOXAPARIN SODIUM 40 MG/0.4 ML SYRINGE SQ SCH (17:52)
--- NOTE | 2016-09-25 18:02 | HHI.PR ---
Subjective Remarks NO DISTRESS OFF THE VENT O2 SAT 92% Objective Vital Signs Date Time Temp Pulse Resp B/P Pulse Ox O2 Delivery O2 Flow Rate FiO2 09/25/16 14:00 98 09/25/16 12:00 103 09/25/16 12:00 100.5 102 21 134/75 96 09/25/16 11:00 105 09/25/16 11:00 100.5 102 22 134/75 96 09/25/16 10:00 98 09/25/16 08:00 100.1 101 21 142/73 94 09/25/16 08:00 101 09/25/16 07:00 92 Bi-Pap 09/25/16 06:00 98 09/25/16 04:25 96 40 09/25/16 04:00 98.6 98 25 106/59 93 09/25/16 04:00 98 09/25/16 02:00 104 09/25/16 00:00 107 09/25/16 00:00 98.8 107 20 127/65 93 09/24/16 23:05 92 40 09/24/16 22:45 93 High Flow Nasal Cannula 40.00 60 09/24/16 22:00 91 09/24/16 20:00 98.7 90 22 152/75 95 09/24/16 20:00 91 09/24/16 19:00 92 Nasal Cannula 8.00 09/24/16 18:00 82 09/24/16 18:00 91 I/O 09/24/16 09/24/16 09/24/16 09/25/16 09/25/16 09/25/16 07:00 15:00 23:00 07:00 15:00 23:00 Intake Total 784 ml 1458 ml 781 ml 972 ml 568 ml Output Total 1825 ml 2980 ml 3020 ml 1915 ml 2050 ml Balance -1041 ml -1522 ml -2239 ml -943 ml -1482 ml Intake Oral 60 ml IV Total 404 ml 552 ml 100 ml 150 ml 204 ml Tube Feeding 380 ml 416 ml 431 ml 422 ml 364 ml Tube Irrigant 30 ml Other 400 ml 250 ml 400 ml Output Urine Total 1800 ml 2950 ml 3000 ml 1900 ml 2000 ml Tube Feeding Residual Discard 0 ml 0 ml 0 ml Drainage Total 25 ml 30 ml 20 ml 15 ml 50 ml # Bowel Movements 1 1 1 1 Result Diagram: 09/25/1662709/25/16627 Objective Remarks GENERAL: SKIN: Warm and dry. HEAD: Atraumatic. Normocephalic. EYES: Pupils equal and round. No scleral icterus. No injection or drainage. ENT: No nasal bleeding or discharge. Mucous membranes pink and moist. NECK: Trachea midline. No JVD. CARDIOVASCULAR: Regular rate and rhythm. RESPIRATORY: No accessory muscle use. SCATTERED RONCHI GASTROINTESTINAL: Abdomen soft, non-tender, nondistended. Hepatic and splenic margins not palpable. MUSCULOSKELETAL: Extremities without clubbing, cyanosis, or edema. No obvious deformities. NEUROLOGICAL: Awake and alert. No obvious cranial nerve deficits. Motor grossly within normal limits. Five out of 5 muscle strength in the arms and legs. Normal speech. PSYCHIATRIC: Appropriate mood and affect; insight and judgment normal. Assessment and Plan Assessment and Plan RESPIRATORY FAILURE SEPSIS OFF THE VENT PLAN O2 NEEDED ANTIBIOTIC THERAPY PULM TOILET Kalyn Mccain MD Sep 25, 2016 18:02
--- NOTE | 2016-09-25 18:04 | RADRPT ---
EXAM DATE/TIME: 09/25/2016 17:09 [place] COMPARISON: CHEST SINGLE AP, September 24, 2016, 6:14. INDICATIONS : Evaluate pleural effusion. RADIATION DOSE: 5.64 CTDIvol (mGy) MEDICAL HISTORY : Chronic obstructive pulmonary disease. Hypertension. SURGICAL HISTORY : None. ENCOUNTER: Initial ACUITY: 1 day PAIN SCALE: 3/10 LOCATION: Bilateral chest TECHNIQUE: Volumetric scanning of the chest was performed. Using automated exposure control and adjustment of the mA and/or kV according to patient size, radiation dose was kept as low as reasonab ly achievable to obtain optimal diagnostic quality images. FINDINGS: There is moderately severe upper lobe emphysema. In the lower lobes, there is segmental consolidatio n with air bronchograms involving the basal segments bilaterally. There are also bilateral pleural e ffusions which measure 2.6 cm in thickness on both sides. There is a solitary pulmonary nodule in th e lateral right midlung, best seen on image #44, measuring 5 mm. Coronary artery calcifications. No evidence of mediastinal adenopathy. Wide windows for bony detail demonstrate the osseous structures to be intact. CONCLUSION: Symmetric bilateral lower lobe abnormalities including segmental consolidation and 3 cm pleural effusions. Severe upper lobe emphysema. There is also a 5 mm solitary pulmonary nodule i n the right midlung. Anibal Álvarez MD on September 25, 2016 at 17:59 Board Certified Radiologist. This report was verified electronically.
[2016-09-26] VITALS (16 sets, daily range): BP systolic 127–150; BP diastolic 66–77; PULSE 25–105; RESP 18–25; TEMP 97.9–99.5; O2SAT 91–96
[2016-09-26] MEDS: INSULIN NovoLIN REGULAR SUPPLEMENTAL SCALE SQ SCH ×6 (04:00→20:00)
[2016-09-26] MEDS: RESP: ALBUTEROL 2.5 MG/IPRATROPIUM 0.5 MG NEB (SCH) NEB ×4 (04:05→20:50)
[2016-09-26 04:22] LABS: AUTOMATED NEUTROPHIL # 19.7 TH/MM3 (1.8-7.7); BASOPHIL # 0.3 TH/MM3 (0-0.2); BASOPHIL % 1.1 % (0.0-2.0); HEMATOCRIT 44.9 % (39.0-51.0); LYMPH % 7.6 % (9.0-44.0); LYMPHOCYTE # 1.8 TH/MM3 (1.0-4.8); MEAN CELL VOLUME 88.3 FL (80.0-100.0); MEAN CORPUSCULAR HEMOGLOBIN 28.5 PG (27.0-34.0); MEAN CORPUSCULAR HGB CONC 32.3 % (32.0-36.0); MONO % 9.4 % (0.0-8.0); NEUT % 81.9 % (16.0-70.0); PLATELET COUNT 136 TH/MM3 (150-450); RED BLOOD COUNT 5.08 MIL/MM3 (4.50-5.90); RED CELL DISTRIBUTION WIDTH 15.1 % (11.6-17.2)
[2016-09-26 04:23] LABS: HEMO FLAGS AUTO DIFF
[2016-09-26 05:01] LABS: NEUTROPHIL # MANUAL DIFF 19.9 TH/MM3 (1.8-7.7); PLATELET ESTIMATE SMEAR LOW (NORMAL); PLATELET MORPHOLOGY ENLARGED (NORMAL); POLYS (SEG NEUTROPHILS) 83 % (16-70); SCAN/DIFF FINAL DIFF MANUAL; WBC DIFF SAMPLE 100
[2016-09-26 05:10] LABS: BICARBONATE 32.8 MEQ/L (21.0-32.0); MAGNESIUM 2.2 MG/DL (1.5-2.5)
[2016-09-26] MEDS: methylPREDNISolone SOD SUCC 40 MG/1 ML VIAL IV PUSH SCH (06:17)
[2016-09-26] MEDS: RESP: BUDESONIDE 0.5 MG/2 ML NEB NEB SCH ×2 (07:50→20:50)
[2016-09-26] MEDS: CHLORHEXIDINE 0.12% (ORAL KIT) 15 ML CUP MT SCH ×2 (08:00→20:00)
[2016-09-26] MEDS: SODIUM CHLORIDE 0.9% FLUSH 10 ML FLUSH IVF SCH ×2 (08:06→10:31)
[2016-09-26] MEDS: SODIUM CHLORIDE 0.9% FLUSH 5 ML FLUSH FLUSH SCH ×2 (09:00→21:00)
[2016-09-26] MEDS: FLUTICASONE PROPIONATE 50 MCG/ACT 16 GM NASAL SPRAY NASAL SCH ×2 (09:00→20:47)
[2016-09-26] MEDS: INSULIN DETEMIR 100 UNITS/ML VIAL SQ SCH ×2 (10:31→21:00)
[2016-09-26] MEDS: guaiFENesin E.R. 600 MG TAB PO SCH ×2 (10:32→20:46)
[2016-09-26] MEDS: QUEtiapine FUMARATE 25 MG TAB PO SCH ×2 (10:32→20:46)
[2016-09-26] MEDS: LORATADINE 10 MG TAB PO SCH (10:32)
[2016-09-26] MEDS: LISINOPRIL 10 MG TAB PO SCH (10:33)
[2016-09-26] MEDS: PANTOPRAZOLE SODIUM 40 MG VIAL IV PUSH SCH ×2 (10:33→21:00)
--- NOTE | 2016-09-26 10:47 | HHI.CCPN ---
Subjective Remarks/Hospital Course This is a 61-year-old male with a past medical history of chronic pancreatitis, hypertension, type 2 diabetes who presented with abdominal pain that started Tuesday. Patient stated that abdominal pain is located in the left lower quadrant and it was very mild. He said over the weekend has worsened in intensity and is constant. Patient stated that he has some nausea that resolves or improves with food. Deny any emesis. Patient also complains of a chronic productive cough that has been the same. He denies any diarrhea or constipation and see that his stools are normal. Patient also denies any fever or chills. She was admitted to hospitalist service and was evaluated subsequently by GI, Dr. Pinto as well as Dr. Henriquez from general surgery in view of abnormal CT abdomen pelvis with left upper quadrant inflammatory change in these and treat with edema and KUBs raising question of SBO. She underwent E lap with lysis of lesions under general anesthesia by Dr. Henriquez on 09/10, EBL 100 cc, received 2 L crystalloid intraoperatively, postop diagnosis small bowel adhesions. Patient was kept intubated postoperatively and transferred to [facility]. I saw the patient shortly after his arrival to the ICU. He had just been started on Versed and fentanyl and dropped his blood pressure to the 60 systolic range. He was ordered a fluid bolus 2 L crystalloids stat and started on Levophed for hypotension. Stat cultures were sent. Patient also is having problem with his O2 sats were dropping in the 80s. Stat chest x-ray was ordered. While waiting for chest x-ray, ET tube balloon pilot balloon appeared damaged hence cuff was not holding air so patient was sedated with Etomidate/ Fentanyl/ Rocuronium and ET tube was changed over a tube exchanger which was confirmed with a postprocedure chest x-ray with satisfactory placement of ET tube, right IJ central line in place, bilateral interstitial infiltrates with hyperinflated lung rothman, no pneumothorax. Patient was requiring 2 mics of Levophed for pressor support. 09/11: Ongoing hypotension and difficulty with oxygenation. Persistent hypotension responsive to volume. CVP 20. Suspect chronic pulmonary hypertension with heavily preload-dependent cardiac output. Will start milrinone for RV support and add vasopressin to levophed prn. Sustained tachycardia prohibits continued escalation of levophed. Underlying lung function is marginal at best. 09/12 0740 hrs: Severe chronic lung disease without significant reserve appears to be the primary pathophysiology here. We were able to produce acceptable cardiac output yesterday with milrinone and vasopressin, minor amounts levophed for peripheral support. He has developed refractory hypoxemia overnight in the 60 - 70% range which is incompatible with survival. Cardiopulmonary dynamics have been maximized and are beginning to deteriorate. Will get another CXR and see if thoracentesis will help lung function. 09/12 1600 hours: Continued difficulty with oxygenation, sats in range 78 - 81% .Cardioverted pharmacologically back to NSR and Flotrac output 7.8. Abdominal pressure 18. At this point he has adequate blood flow and oxygen delivery capacity despite low PO2. We have tried various vent modes and PC/AC appears to work best. SVV is 10; altogether these observations recommend diuresis to help oxygenation. He has horrible diffuse emphysema and a moderate right pleural effusion - may be forced to place a chest tube to allow better lung expansion. 09/13: Improved oxygenation after aggressive diuresis. Renal function remains stable. Alert, responsive. 09.14: Continued good diuresis after lasix. A-aO2 gradient marginally improved. Remains alert. 09/15: Currently afebrile. Almost off norepinephrine drip. Awake and alert and follows commands. FiO2 70%. 09/16: Complaining of air hunger on the ventilator. Currently afebrile. FiO2 back down at 70%. Inspiratory pressure decreased from 18 to 12. 09/17: Awake and alert. Central line was changed to the left side. Afebrile. FiO2 down to 60%. On 2 g per min of norepinephrine. 09/18: Awake and alert. No acute changes overnight. FiO2 was remains at 60%. Tolerating tube feeding. 09/19: Tmax 99.8. Currently 99. No bowel movement. Tolerating tube feeds. Right chest tube removed yesterday we'll attempt to remove left chest tube today. Awake and alert and following commands. 09/20: Orally intubated on mechanical ventilation. Off sedation he is awake and alert following commands. 09/21: Sedated, easily arousable, orally intubated on mechanical ventilation. Tolerating C Pap with pressure support overnight. 09/22: Extubated yesterday. Requiring BiPAP overnight. On Precedex. Awake and alert, following commands. Knows he is at the hospital and verbalizes appropriately. Being diuresed. 09/23: Was on high flow O2 till around 4 AM when he was placed back on BiPAP. He is back on high flow nasal cannula with 70% FiO2 40 L/m. On tube feeds. TPN discontinued yesterday. Left upper axillary swelling noted. 09/24: Was placed on BiPAP last night. Appears comfortable on high flow nasal cannula this morning. Remains on Precedex. -4.8 L in the last 24 hours. Continues to diurese well. Tolerating tube feeds. 09/25: Continues on BiPAP at 40%. Remains on low-dose Precedex. -4 L past 24 hours. Excellent diuresis. Hold Lasix today hold potassium supplementation. Noted elevated white blood cell count. Subjective 09/26: Currently on high flow nasal cannula 30%/40 L. Attempt to transition to nasal cannula today. Auto diuresed 4 L overnight. SLOWLY decreasing. Noted that left IJ CVL discontinued yesterday. Blood cultures were drawn. Currently asking to remove wrist restraints. Objective Vital Signs Date Time Temp Pulse Resp B/P Pulse Ox O2 Delivery O2 Flow Rate FiO2 09/26/16 09:32 92 High Flow Nasal Cannula 20.00 30 09/26/16 06:00 95 09/26/16 04:00 99.0 20 132/75 Intake and Output 09/25/16 09/25/16 09/26/16 08:00 16:00 00:00 Intake Total 972 ml 568 ml 505 ml Output Total 1915 ml 2050 ml 1540 ml Balance -943 ml -1482 ml -1035 ml Result Diagram: 09/26/16 0333 09/26/16 0333 Other Results Microbiology Date/Time Procedure Status Source Growth 09/25/16 14:30 Aerobic Blood Culture Received Blood Line Pending 09/25/16 14:30 Anaerobic Blood Culture Received Blood Line Pending Imaging Last Impressions Chest CT 09/25/16 0000 Signed Impressions: Service Date/Time: Sunday, September 25, 2016 17:09 - CONCLUSION: Symmetric bilateral lower lobe abnormalities including segmental consolidation and 3 cm pleural effusions. Severe upper lobe emphysema. There is also a 5 mm solitary pulmonary nodule in the right midlung. Anibal Álvarez MD Chest X-Ray 09/24/16 0600 Signed Impressions: Service Date/Time: Saturday, September 24, 2016 06:14 - CONCLUSION: Stable chest x-ray with mild bibasilar opacities which could represent small pleural effusions. There is also likely associated consolidation in the lower lung zones. Gumaro Brown MD Upper Extremity Ultrasound 09/23/16 0000 Signed Impressions: Service Date/Time: August 15:27 - CONCLUSION: 1. Superficial thrombosed by this involving the cephalic and basilic veins. No deep venous thrombosis is identified. Manjeet Guevara MD Abdomen X-Ray 09/09/16 0600 Signed Impressions: Service Date/Time: August 04:54 - CONCLUSION: No significant interval change. Persistent upper mid abdomen small bowel dilatation and wall thickening. Filiberto Hall MD Abdomen/Pelvis CT 09/08/16 0000 Signed Impressions: Service Date/Time: Thursday, September 08, 2016 23:45 - CONCLUSION: 1. Marked inflammatory changes of left upper quadrant with severe mesenteric edema and adjacent short segment circumferential wall thickening of mid small bowel and adjacent distal transverse colon. Possible 4 cm abscess adjacent to the mid small bowel wall. Evaluation of intraluminal versus extraluminal fluid in this region is limited as intraluminal contrast is not present in this loop. A delayed scan may be beneficial for clarification. Differential diagnosis includes inflammatory bowel disease and infection. Moderate amount of free fluid similar to prior study. No evidence of free air. 2. Chronic pancreatitis. Filiberto Hall MD ADDENDUM: Delayed images show contrast filling the thickened loops of left upper quadrant small bowel. No evidence of abscess. Findings were discussed with Dr. Henriquez. Filiberto Hall MD Objective Remarks GENERAL: 61-year-old male, currently in bed, on high flow nasal cannula in no acute distress SKIN: Warm and dry. No rash HEAD: Atraumatic. Normocephalic. EYES: Pupils equal and round about 3 mm bilaterally and reactive. No scleral icterus. No injection or drainage. ENT: No nasal bleeding or discharge. Mucous membranes pink and moist. NECK: Trachea midline. No JVD. Orotracheally intubated. Left IJ clean dry and intact CARDIOVASCULAR: RRR. S1, S2. No S4. Without murmur. RESPIRATORY: On high flow nasal cannula. Diminished breath sounds throughout. No rhonchi appreciated. No end expiratory wheeze. GASTROINTESTINAL: Abdomen slightly tender palpation. Normoactive bowel sounds. Incisional sutures intact without erythema or dehiscence. No drainage. MUSCULOSKELETAL: Extremities with trace extremity peripheral edema. No obvious deformities. NEUROLOGICAL: Arousable and follows commands. No obvious cranial nerve deficits. Motor grossly within normal limits. Five out of 5 muscle strength in the arms and legs. Vascular Central Line Catheter: No Assessment to: Continue Date of Insertion: Sep 16, 2016 Date of Removal: Sep 25, 2016 Line: Central Venous Catheter Side: Left Location: Internal, Jugular A/P Assessment and Plan Neuro/Psych: Toxic metabolic encephalopathy Acetaminophen for fever Morphine 2-4 mg IV as needed for pain management Off Precedex drip. Off fentanyl drip. Seroquel 25 twice a day. Wean down as tolerated CV: A. fib with RVR - normal sinus rhythm Hypertension Dyslipidemia History of splenic artery stenting secondary to aneurysm Off all vasopressors and milrinone Amiodarone drip has been discontinued 1 week Currently on Prinivil 10 mg by mouth twice daily for hypertension with holding parameters for low blood pressure Off Solu-Cortef. Resp: Acute hypoxemic respiratory failure Severe COPD Pleural effusion status post bilateral chest tubes since removed Right midlung pulmonary nodule/[address] follow-up recommended 6 months Extubated on 09/21. Requiring BiPAP when necessary. On high flow O2 with intermittent BiPAP. Started Solu-Medrol 60 mg IV every 8 hourly on 09/21 and diuresis to see if respiratory status improves. Diuresis discontinued 09/25 DuoNeb therapy every 6 hours with albuterol every 2 hours for breakthrough dyspnea Pulmicort twice a day Followed by /pulmonology Right chest tube discontinued 09/18 Left chest tube discontinued 09/19 Patient is okay with intubation and tracheostomy if needed which I confirmed with him on 09/22 CT thorax revealed right pulmonary nodule 5 mm, 3 cm bilateral pleural effusions. GI: Postop day #17 exploratory lap lysis of adhesions - Dr. Henriquez Chronic pancreatitis Abdominal ascites Internal hemorrhoids Elevated transaminases Status post EGD by GI. - Pathology revealed chronic gastritis inflammation Says post colonoscopy by GI 09/06 -incomplete splenic flexure normal mucosa. Internal hemorrhoids. TPN stopped on 09/22 as patient tolerating tube feeds Currently tube feeds Glucerna 1.5 at 60 cc an hour/goal. ADA diet/. Pured With honey thickened liquids. Protonix 40 mg IV twice a day Follow LFTs. slowly trending downward. : Tavarez has been placed for accurate I's and O's in a critically ill patient Endo: Diabetes mellitus Sliding-scale insulin with Accu-Cheks every 4 hours maintain euglycemia. /High dose . 20 units sliding scale past 24 hours Levemir 8 units twice a day. To be increased to 12 twice a day Holding home medication glipizide 10 mg by mouth daily Renal: Strict intake output, monitor and replete electrolytes, follow BUN/creatinine. Continue diuresis with Lasix. Received Diamox 500 mg IV x 3 for contraction alkalosis. Heme: Leukocytosis Anemia Right cephalic/basilic superficial thrombus Follow CBC. On Lovenox 40 subcutaneous daily ID: ID has stopped all antibiotics since 09/22. Pertinent cultures 09/25 - blood cultures 2 - 09/17 - sputum - no growth 09/11 - blood culture - no growth 09/10 - blood culture 2 - no growth 09/10 - urine - no growth 09/02 - blood culture 2 - no growth Discontinued left IJ central line 09/25. Replace peripherals. Panculture. FEN: Hypernatremia Replace electrolytes as clinically indicated per ICU electrolyte protocol Free water was discontinued by primary team cc every 4 hours MSK: PT/OT evaluate and treat Access - Right IJ CVL placed 09/08-09/16 - Left IJ CVL 09/16 - 09/25 Prophylaxis - GI - Protonix IV twice a day - DVT - SCD/Lovenox Critical Care: The total critical care time was 35 minutes. Time to perform other separately billable procedures was not included in the critical care time. Wilder Humphrey MD Sep 26, 2016 10:47
--- NOTE | 2016-09-26 13:20 | HHI.PR ---
Subjective Subjective Notes stable overnight, tolerating tf, +bms, wbc elevated but improving 27-->24, +bms , bcx pending, no growth CTchest with effusions Objective Vitals/I&O Vital Signs Date Time Temp Pulse Resp B/P Pulse Ox O2 Delivery O2 Flow Rate FiO2 09/26/16 12:00 98 09/26/16 09:32 92 High Flow Nasal Cannula 20.00 30 09/26/16 08:00 98.5 18 136/72 Labs Laboratory Tests Test 09/26/16 03:33 White Blood Count 24.0 Red Blood Count 5.08 Hemoglobin 14.5 Hematocrit 44.9 Mean Corpuscular Volume 88.3 Mean Corpuscular Hemoglobin 28.5 Mean Corpuscular Hemoglobin 32.3 Concent Red Cell Distribution Width 15.1 Platelet Count 136 Mean Platelet Volume 11.1 Neutrophils (%) (Auto) 81.9 Lymphocytes (%) (Auto) 7.6 Monocytes (%) (Auto) 9.4 Eosinophils (%) (Auto) 0.0 Basophils (%) (Auto) 1.1 Neutrophils # (Auto) 19.7 Lymphocytes # (Auto) 1.8 Monocytes # (Auto) 2.3 Eosinophils # (Auto) 0.0 Basophils # (Auto) 0.3 CBC Comment AUTO DIFF Differential Total Cells 100 Counted Neutrophils % (Manual) 83 Lymphocytes % 5 Monocytes % 12 Neutrophils # (Manual) 19.9 Differential Comment FINAL DIFF MANUAL Platelet Estimate LOW Platelet Morphology Comment ENLARGED Red Cell Morphology Comment NORMAL Sodium Level 153 Potassium Level 4.0 Chloride Level 113 Carbon Dioxide Level 32.8 Anion Gap 7 Blood Urea Nitrogen 50 Creatinine 0.77 Estimat Glomerular Filtration 103 Rate Random Glucose 298 Calcium Level 7.8 Phosphorus Level 2.7 Magnesium Level 2.2 Date/Time Procedure Status Source Growth 09/25/16 14:30 Aerobic Blood Culture - Preliminary Resulted Blood Line NO GROWTH IN 1 DAY 09/25/16 14:30 Anaerobic Blood Culture - Preliminary Resulted Blood Line NO GROWTH IN 1 DAY 09/25/16 11:40 Aerobic Blood Culture Received Blood Line Pending 09/25/16 11:40 Anaerobic Blood Culture Received Blood Line Pending Radiology Last Impressions Chest X-Ray 09/12/16 0000 Signed Impressions: Service Date/Time: Monday, September 12, 2016 07:39 - CONCLUSION: Bibasilar airspace disease and bilateral pleural effusions larger on the right. Zechariah Sims MD Abdomen X-Ray 09/09/16 0600 Signed Impressions: Service Date/Time: August 04:54 - CONCLUSION: No significant interval change. Persistent upper mid abdomen small bowel dilatation and wall thickening. Filiberto Hall MD Abdomen/Pelvis CT 09/08/16 0000 Signed Impressions: Service Date/Time: Thursday, September 08, 2016 23:45 - CONCLUSION: 1. Marked inflammatory changes of left upper quadrant with severe mesenteric edema and adjacent short segment circumferential wall thickening of mid small bowel and adjacent distal transverse colon. Possible 4 cm abscess adjacent to the mid small bowel wall. Evaluation of intraluminal versus extraluminal fluid in this region is limited as intraluminal contrast is not present in this loop. A delayed scan may be beneficial for clarification. Differential diagnosis includes inflammatory bowel disease and infection. Moderate amount of free fluid similar to prior study. No evidence of free air. 2. Chronic pancreatitis. Filiberto Hall MD ADDENDUM: Delayed images show contrast filling the thickened loops of left upper quadrant small bowel. No evidence of abscess. Findings were discussed with Dr. Henriquez. Filiberto Hall MD Lungs: Other ( basilar bs) Abdomen: Other (incision with joseluis c/d/i, alo serous, c/d/i, soft) A/P Problem List: (1) Sepsis (2) COPD (chronic obstructive pulmonary disease) (3) Hypokalemia (4) Hyponatremia (5) Abdominal pain (6) Enteritis (7) Ileus (8) Leukocytosis (9) Diabetes (10) Systemic inflammatory response syndrome (SIRS) Assessment and Plan 61 year old male POD16 Exploratory Laparotomy, lysis of adhesions, CTchest effusions bilaterally -Extubated, some confusion but answering questions -Passed swallow eval but PO intake not adequate yet - WBC's increased but improving- likely pulm source vs rxn from steroids -TF at 60 cc/hr -Monitor ALO output serous - pt, dvt ppx Problem Qualifiers (1) Leukocytosis: Qualified Code: D72.829 - Leukocytosis, unspecified type Michael Zamora MD Sep 26, 2016 13:19
[2016-09-26] MEDS: methylPREDNISolone SOD SUCC 125 MG/2 ML VIAL IV PUSH SCH ×2 (14:00→20:46)
[2016-09-26] MEDS: ENOXAPARIN SODIUM 40 MG/0.4 ML SYRINGE SQ SCH (17:04)
--- NOTE | 2016-09-26 18:47 | HHI.PR ---
Subjective Remarks NO DISTRESS OFF THE VENT O2 SAT 92% Objective Vital Signs Date Time Temp Pulse Resp B/P Pulse Ox O2 Delivery O2 Flow Rate FiO2 09/26/16 18:00 89 09/26/16 17:01 96 High Flow Nasal Cannula 25.00 45 09/26/16 16:00 88 09/26/16 16:00 97.9 105 23 150/77 92 09/26/16 14:00 92 09/26/16 12:00 98.7 92 25 127/66 92 09/26/16 12:00 98 09/26/16 10:00 96 09/26/16 09:32 92 High Flow Nasal Cannula 20.00 30 09/26/16 08:00 98.5 98 18 136/72 91 09/26/16 08:00 92 09/26/16 07:52 91 High Flow Nasal Cannula 30.00 30 09/26/16 07:00 92 Nasal Cannula 8.00 09/26/16 06:00 95 09/26/16 04:00 99.0 25 20 132/75 93 09/26/16 04:00 98 09/26/16 02:00 98 09/26/16 00:00 99.0 93 20 129/75 93 09/26/16 00:00 98 09/25/16 22:00 98 09/25/16 20:36 93 High Flow Nasal Cannula 40.00 60 09/25/16 20:00 99.1 98 22 147/90 93 09/25/16 20:00 98 09/25/16 20:00 93 Nasal Cannula 8.00 I/O 09/25/16 09/25/16 09/25/16 09/26/16 09/26/16 09/26/16 07:00 15:00 23:00 07:00 15:00 23:00 Intake Total 972 ml 568 ml 505 ml 550 ml 947 ml Output Total 1915 ml 2050 ml 1540 ml 2030 ml 1070 ml Balance -943 ml -1482 ml -1035 ml -1480 ml -123 ml Intake Oral 450 ml IV Total 150 ml 204 ml 102 ml 99 ml 74 ml Tube Feeding 422 ml 364 ml 403 ml 451 ml 423 ml Other 400 ml Output Urine Total 1900 ml 2000 ml 1500 ml 2000 ml 1050 ml Drainage Total 15 ml 50 ml 40 ml 30 ml 20 ml # Bowel Movements 1 1 1 2 1 Result Diagram: 09/26/16 0333 09/26/16 0333 Objective Remarks GENERAL: SKIN: Warm and dry. HEAD: Atraumatic. Normocephalic. EYES: Pupils equal and round. No scleral icterus. No injection or drainage. ENT: No nasal bleeding or discharge. Mucous membranes pink and moist. NECK: Trachea midline. No JVD. CARDIOVASCULAR: Regular rate and rhythm. RESPIRATORY: No accessory muscle use. SCATTERED RONCHI GASTROINTESTINAL: Abdomen soft, non-tender, nondistended. Hepatic and splenic margins not palpable. MUSCULOSKELETAL: Extremities without clubbing, cyanosis, or edema. No obvious deformities. NEUROLOGICAL: Awake and alert. No obvious cranial nerve deficits. Motor grossly within normal limits. Five out of 5 muscle strength in the arms and legs. Normal speech. PSYCHIATRIC: Appropriate mood and affect; insight and judgment normal. Assessment and Plan Assessment and Plan RESPIRATORY FAILURE SEPSIS OFF THE VENT PLAN O2 NEEDED ANTIBIOTIC THERAPY PULM TOILET Kalyn Mccain MD Sep 26, 2016 18:47
[2016-09-26] MEDS ORDERED: INSULIN DETEMIR 100 UNITS/ML VIAL SQ SCH (21:00)
[2016-09-27] VITALS (13 sets, daily range): BP systolic 116–171; BP diastolic 60–86; PULSE 82–102; RESP 20–26; TEMP 98.5–99.5; O2SAT 89–96
[2016-09-27] MEDS: INSULIN NovoLIN REGULAR SUPPLEMENTAL SCALE SQ SCH ×6 (03:56→20:39)
[2016-09-27] MEDS: RESP: ALBUTEROL 2.5 MG/IPRATROPIUM 0.5 MG NEB (SCH) NEB ×4 (04:11→22:00)
[2016-09-27 05:10] LABS: BICARBONATE 32.2 MEQ/L (21.0-32.0); MAGNESIUM 2.1 MG/DL (1.5-2.5); POTASSIUM 3.9 MEQ/L (3.5-5.1)
[2016-09-27 05:38] LABS: AUTOMATED NEUTROPHIL # 18.6 TH/MM3 (1.8-7.7); BASOPHIL # 0.1 TH/MM3 (0-0.2); BASOPHIL % 0.5 % (0.0-2.0); EOSINOPHIL % 0.1 % (0.0-4.0); HEMATOCRIT 48.1 % (39.0-51.0); LYMPH % 6.3 % (9.0-44.0); LYMPHOCYTE # 1.3 TH/MM3 (1.0-4.8); MEAN CELL VOLUME 88.7 FL (80.0-100.0); MEAN CORPUSCULAR HEMOGLOBIN 28.2 PG (27.0-34.0); MEAN CORPUSCULAR HGB CONC 31.7 % (32.0-36.0); MONO % 2.9 % (0.0-8.0); NEUT % 90.2 % (16.0-70.0); PLATELET COUNT 110 TH/MM3 (150-450); RED BLOOD COUNT 5.42 MIL/MM3 (4.50-5.90); RED CELL DISTRIBUTION WIDTH 15.8 % (11.6-17.2); WHITE BLOOD COUNT 20.6 TH/MM3 (4.0-11.0)
[2016-09-27] MEDS: methylPREDNISolone SOD SUCC 125 MG/2 ML VIAL IV PUSH SCH ×3 (06:20→20:39)
[2016-09-27 06:38] LABS: HEMO FLAGS AUTO DIFF
[2016-09-27 06:45] LABS: PLATELET MORPHOLOGY ENLARGED (NORMAL); SCAN/DIFF AUTO DIFF CONFIRMED
[2016-09-27] MEDS: QUEtiapine FUMARATE 25 MG TAB PO SCH ×2 (08:07→20:39)
[2016-09-27] MEDS: LORATADINE 10 MG TAB PO SCH (08:07)
[2016-09-27] MEDS: LISINOPRIL 10 MG TAB PO SCH (08:07)
[2016-09-27] MEDS: PANTOPRAZOLE SODIUM 40 MG VIAL IV PUSH SCH ×2 (08:07→20:39)
[2016-09-27] MEDS: guaiFENesin E.R. 600 MG TAB PO SCH ×2 (08:07→20:39)
[2016-09-27] MEDS: INSULIN DETEMIR 100 UNITS/ML VIAL SQ SCH ×2 (08:08→20:38)
[2016-09-27] MEDS: CHLORHEXIDINE 0.12% (ORAL KIT) 15 ML CUP MT SCH ×2 (08:09→20:00)
[2016-09-27] MEDS: SODIUM CHLORIDE 0.9% FLUSH 5 ML FLUSH FLUSH SCH ×2 (08:10→20:40)
[2016-09-27] MEDS: SODIUM CHLORIDE 0.9% FLUSH 10 ML FLUSH IVF SCH (08:10)
[2016-09-27] MEDS: FLUTICASONE PROPIONATE 50 MCG/ACT 16 GM NASAL SPRAY NASAL SCH ×2 (08:10→20:11)
[2016-09-27] MEDS: RESP: BUDESONIDE 0.5 MG/2 ML NEB NEB SCH ×2 (08:53→21:57)
--- NOTE | 2016-09-27 10:46 | HHI.PR ---
Subjective Subjective Notes Resting in bed on high flow NC Objective Vitals/I&O Vital Signs Date Time Temp Pulse Resp B/P Pulse Ox O2 Delivery O2 Flow Rate FiO2 09/27/16 09:40 94 High Flow Nasal Cannula 25.00 40 09/27/16 06:00 82 09/27/16 04:00 99.1 22 131/73 Labs Laboratory Tests Test 09/27/16 03:53 White Blood Count 20.6 Red Blood Count 5.42 Hemoglobin 15.3 Hematocrit 48.1 Mean Corpuscular Volume 88.7 Mean Corpuscular Hemoglobin 28.2 Mean Corpuscular Hemoglobin 31.7 Concent Red Cell Distribution Width 15.8 Platelet Count 110 Mean Platelet Volume 12.6 Neutrophils (%) (Auto) 90.2 Lymphocytes (%) (Auto) 6.3 Monocytes (%) (Auto) 2.9 Eosinophils (%) (Auto) 0.1 Basophils (%) (Auto) 0.5 Neutrophils # (Auto) 18.6 Lymphocytes # (Auto) 1.3 Monocytes # (Auto) 0.6 Eosinophils # (Auto) 0.0 Basophils # (Auto) 0.1 CBC Comment AUTO DIFF Differential Comment AUTO DIFF CONFIRMED Platelet Estimate Platelet Morphology Comment ENLARGED Hematology Comments Sodium Level 155 Potassium Level 3.9 Chloride Level 115 Carbon Dioxide Level 32.2 Anion Gap 8 Blood Urea Nitrogen 44 Creatinine 0.68 Estimat Glomerular Filtration 119 Rate Random Glucose 283 Calcium Level 7.8 Phosphorus Level 2.8 Magnesium Level 2.1 Date/Time Procedure Status Source Growth 09/25/16 14:30 Aerobic Blood Culture - Preliminary Resulted Blood Line NO GROWTH IN 1 DAY 09/25/16 14:30 Anaerobic Blood Culture - Preliminary Resulted Blood Line NO GROWTH IN 1 DAY 09/25/16 11:40 Aerobic Blood Culture Received Blood Line Pending 09/25/16 11:40 Anaerobic Blood Culture Received Blood Line Pending Radiology Last Impressions Chest X-Ray 09/12/16 0000 Signed Impressions: Service Date/Time: Monday, September 12, 2016 07:39 - CONCLUSION: Bibasilar airspace disease and bilateral pleural effusions larger on the right. Zechariah Sims MD Abdomen X-Ray 09/09/16 0600 Signed Impressions: Service Date/Time: August 04:54 - CONCLUSION: No significant interval change. Persistent upper mid abdomen small bowel dilatation and wall thickening. Filiberto Hall MD Abdomen/Pelvis CT 09/08/16 0000 Signed Impressions: Service Date/Time: Thursday, September 08, 2016 23:45 - CONCLUSION: 1. Marked inflammatory changes of left upper quadrant with severe mesenteric edema and adjacent short segment circumferential wall thickening of mid small bowel and adjacent distal transverse colon. Possible 4 cm abscess adjacent to the mid small bowel wall. Evaluation of intraluminal versus extraluminal fluid in this region is limited as intraluminal contrast is not present in this loop. A delayed scan may be beneficial for clarification. Differential diagnosis includes inflammatory bowel disease and infection. Moderate amount of free fluid similar to prior study. No evidence of free air. 2. Chronic pancreatitis. Filiberto Hall MD ADDENDUM: Delayed images show contrast filling the thickened loops of left upper quadrant small bowel. No evidence of abscess. Findings were discussed with Dr. Henriquez. Filiberto Hall MD Cardiovascular: Regular Lungs: Upper airway course sound Abdomen: Other (midline incision --stapled; abdomen soft ) Extremities: No edema A/P Problem List: (1) Sepsis (2) COPD (chronic obstructive pulmonary disease) (3) Hypokalemia (4) Hyponatremia (5) Abdominal pain (6) Enteritis (7) Ileus (8) Leukocytosis (9) Diabetes (10) Systemic inflammatory response syndrome (SIRS) Assessment and Plan 61 year old male POD17 Exploratory Laparotomy, lysis of adhesions -High flow NC -PO diet + nocturnal TF at 30 cc/hr -Monitor ROSHAN output -Discussed with RN Melissa Attending Note - Dr. Henriquez Abdomen benign Still on high flow O2 Calorie count in 24 hrs The exam, history, and the medical decision-making described in the above note were completed with the assistance of the mid-level provider. I reviewed and agree with the findings presented. I attest that I had a [id number] encounter with the patient on the same day, and personally performed and documented my assessment and findings in the medical record. Problem Qualifiers (1) Leukocytosis: Qualified Code: D72.829 - Leukocytosis, unspecified type Charisma Larson Sep 27, 2016 10:46 Bret Henriquez MD Sep 27, 2016 18:15
--- NOTE | 2016-09-27 11:11 | HHI.IDPN ---
Subjective Subjective Remarks Notes reviewed On nasal O2 currently Sats are good Low grade temps this weekend Confused Getting diuresis CT with tanya effusions and compressive atelectasis BC negative so far UA ok Antibiotics None Past Medical History Reviewed Allergies: Coded Allergies: Penicillin (Verified Allergy, Severe, SWELLING, 09/11/16) has tolerated Cephalosporins in previous admissions *MDRO Multi-Drug Resistant Organism (Verified Adverse Reaction, Unknown, ) Hx MRSA Sputum 2006, Wounds 2003 MRSA PCR Screen negative 11/25/14 & 09/10/15. Cleared per Infection Control. Patient does not require isolation for hx of MRSA prior to 09/10/15. Objective . Vital Signs Date Time Temp Pulse Resp B/P Pulse Ox O2 Delivery O2 Flow Rate FiO2 09/27/16 09:40 94 High Flow Nasal Cannula 25.00 40 09/27/16 06:00 82 09/27/16 04:00 82 09/27/16 04:00 99.1 102 22 131/73 91 09/27/16 02:00 86 09/27/16 00:00 99.0 100 25 118/68 89 09/27/16 00:00 82 09/26/16 22:00 91 09/26/16 20:50 95 High Flow Nasal Cannula 25.00 40 09/26/16 20:00 90 Nasal Cannula 8.00 09/26/16 20:00 99.5 84 23 146/77 95 09/26/16 20:00 84 09/26/16 18:00 89 09/26/16 17:01 96 High Flow Nasal Cannula 25.00 45 09/26/16 16:00 88 09/26/16 16:00 97.9 105 23 150/77 92 09/26/16 14:00 92 09/26/16 12:00 98.7 92 25 127/66 92 09/26/16 12:00 98 09/26/16 09/26/16 09/27/16 15:00 23:00 07:00 Intake Total 947 ml 749 ml 610 ml Output Total 1070 ml 1510 ml 2015 ml Balance -123 ml -761 ml -1405 ml Intake Oral 450 ml IV Total 74 ml 89 ml Tube Feeding 423 ml 460 ml 410 ml Other 200 ml 200 ml Output Urine Total 1050 ml 1500 ml 2000 ml Drainage Total 20 ml 10 ml 15 ml # Bowel Movements 1 2 2 . Laboratory Tests Test 09/26/16 09/27/16 03:33 03:53 White Blood Count 24.0 TH/MM3 20.6 TH/MM3 Red Blood Count 5.08 MIL/MM3 5.42 MIL/MM3 Hemoglobin 14.5 GM/DL 15.3 GM/DL Hematocrit 44.9 % 48.1 % Mean Corpuscular Volume 88.3 FL 88.7 FL Mean Corpuscular Hemoglobin 28.5 PG 28.2 PG Mean Corpuscular Hemoglobin 32.3 % 31.7 % Concent Red Cell Distribution Width 15.1 % 15.8 % Platelet Count 136 TH/MM3 110 TH/MM3 Mean Platelet Volume 11.1 FL 12.6 FL Neutrophils (%) (Auto) 81.9 % 90.2 % Lymphocytes (%) (Auto) 7.6 % 6.3 % Monocytes (%) (Auto) 9.4 % 2.9 % Eosinophils (%) (Auto) 0.0 % 0.1 % Basophils (%) (Auto) 1.1 % 0.5 % Neutrophils # (Auto) 19.7 TH/MM3 18.6 TH/MM3 Lymphocytes # (Auto) 1.8 TH/MM3 1.3 TH/MM3 Monocytes # (Auto) 2.3 TH/MM3 0.6 TH/MM3 Eosinophils # (Auto) 0.0 TH/MM3 0.0 TH/MM3 Basophils # (Auto) 0.3 TH/MM3 0.1 TH/MM3 CBC Comment AUTO DIFF AUTO DIFF Differential Total Cells 100 Counted Neutrophils % (Manual) 83 % Lymphocytes % 5 % Monocytes % 12 % Neutrophils # (Manual) 19.9 TH/MM3 Differential Comment FINAL DIFF AUTO DIFF MANUAL CONFIRMED Platelet Estimate LOW Platelet Morphology Comment ENLARGED ENLARGED Red Cell Morphology Comment NORMAL Hematology Comments Laboratory Tests Test 09/26/16 09/27/16 03:33 03:53 Sodium Level 153 MEQ/L 155 MEQ/L Potassium Level 4.0 MEQ/L 3.9 MEQ/L Chloride Level 113 MEQ/L 115 MEQ/L Carbon Dioxide Level 32.8 MEQ/L 32.2 MEQ/L Anion Gap 7 MEQ/L 8 MEQ/L Blood Urea Nitrogen 50 MG/DL 44 MG/DL Creatinine 0.77 MG/DL 0.68 MG/DL Estimat Glomerular Filtration 103 ML/MIN 119 ML/MIN Rate Random Glucose 298 MG/DL 283 MG/DL Calcium Level 7.8 MG/DL 7.8 MG/DL Phosphorus Level 2.7 MG/DL 2.8 MG/DL Magnesium Level 2.2 MG/DL 2.1 MG/DL Microbiology Date/Time Procedure Status Source Growth 09/25/16 11:40 Aerobic Blood Culture Received Blood Line Pending 09/25/16 11:40 Anaerobic Blood Culture Received Blood Line Pending 09/25/16 14:30 Aerobic Blood Culture - Preliminary Resulted Blood Line NO GROWTH IN 1 DAY 09/25/16 14:30 Anaerobic Blood Culture - Preliminary Resulted Blood Line NO GROWTH IN 1 DAY 09/25/16 14:30 Aerobic Blood Culture - Preliminary Resulted Blood Line NO GROWTH IN 1 DAY 09/25/16 14:30 Anaerobic Blood Culture - Preliminary Resulted Blood Line NO GROWTH IN [address] 09/25/16 0000 Signed Impressions: Service Date/Time: Sunday, September 25, 2016 17:09 - CONCLUSION: Symmetric bilateral lower lobe abnormalities including segmental consolidation and 3 cm pleural effusions. Severe upper lobe emphysema. There is also a 5 mm solitary pulmonary nodule in the right midlung. Anibal Álvarez MD Chest X-Ray 09/21/16 0000 Signed Impressions: Service Date/Time: Wednesday, September 21, 2016 10:17 - CONCLUSION: New mild bilateral lower lung zone hazy opacity suggesting mild pulmonary edema. There is also atelectasis at the inferior left lung base. Possible small pleural effusions. Filiberto Hall MD Chest X-Ray 09/19/16 1300 Signed Impressions: Service Date/Time: Monday, September 19, 2016 13:35 - CONCLUSION: Improved lung exam. Question presence of endotracheal tube with the tip at the level of the clavicles . Carrie Olvera MD Chest X-Ray 09/17/16 0600 Signed Impressions: Service Date/Time: Saturday, September 17, 2016 05:37 - CONCLUSION: 1. No pneumothoraces. 2. Unchanged bibasilar consolidation. Anibal Malhotra Jr., MD Chest X-Ray 09/16/16 1504 Signed Impressions: Service Date/Time: August 15:12 - CONCLUSION: Central line placement without pneumothorax. Gumaro Correa MD Chest X-Ray 09/16/16 0600 Signed Impressions: Service Date/Time: August 02:16 - CONCLUSION: No significant change has occurred. John Payne MD Chest X-Ray 09/14/16 1200 Signed Impressions: Service Date/Time: Wednesday, September 14, 2016 12:25 - CONCLUSION: 1. No pneumothorax. 2. Multiple tubes and lines are stable. 3. Scattered patchy infiltrates bilaterally. Jostin Crow MD Chest X-Ray 09/12/16 0000 Signed Impressions: Service Date/Time: Monday, September 12, 2016 07:39 - CONCLUSION: Bibasilar airspace disease and bilateral pleural effusions larger on the right. Zechariah Sims MD Abdomen X-Ray 09/09/16 0600 Signed Impressions: Service Date/Time: August 04:54 - CONCLUSION: No significant interval change. Persistent upper mid abdomen small bowel dilatation and wall thickening. Filiberto Hall MD Abdomen/Pelvis CT 09/08/16 0000 Signed Impressions: Service Date/Time: Thursday, September 08, 2016 23:45 - CONCLUSION: 1. Marked inflammatory changes of left upper quadrant with severe mesenteric edema and adjacent short segment circumferential wall thickening of mid small bowel and adjacent distal transverse colon. Possible 4 cm abscess adjacent to the mid small bowel wall. Evaluation of intraluminal versus extraluminal fluid in this region is limited as intraluminal contrast is not present in this loop. A delayed scan may be beneficial for clarification. Differential diagnosis includes inflammatory bowel disease and infection. Moderate amount of free fluid similar to prior study. No evidence of free air. 2. Chronic pancreatitis. Filiberto Hall MD ADDENDUM: Delayed images show contrast filling the thickened loops of left upper quadrant small bowel. No evidence of abscess. Findings were discussed with Dr. Henriquez. Filiberto Hall MD Physical Exam GENERAL: Awake, confused, on nasal O2 SKIN: Cool and dry. No generalized rash HEENT: [place] conjunctivae. No scleral icterus. No injection or drainage. Nose without bleeding, or purulent drainage. NECK: Trachea midline. No JVD or lymphadenopathy. Supple, nontender, no meningeal signs. CARDIOVASCULAR: Regular rate and rhythm without murmurs, gallops, or rubs. RESPIRATORY: Decreased BS bases GASTROINTESTINAL: Abdomen soft, not tender. Bowel sounds (+). Not distended. Midline incision, dry, no erythema. MUSCULOSKELETAL: Extremities without clubbing. Edema better, Feet cool with cyanosis NEUROLOGICAL: Responding PSYCH: Cooperative LINE: No evidence of infection : Tavarez in place, urine looks clear Assessment & Plan Remarks IMPRESSION Sepsis with shock, S/P exp lap with lysis of adhesions. - off pressors - better ? Spillage peritonitis. - ?shock due to other factors - C/S ok so far - better - abdomen exam benigh Respiratory failure, extubated 09/21 - fluid, PNA, ARDS S/P exp lap, LUCY, for SBO Allergy to PCN, has tolerated Cephalosporins in the past Leukocytosis Intermittent low grade temps RECOMMENDATION Monitor off Abx Monitor progress Follow new C/S Monitor temps Tati Hansen MD Sep 27, 2016 11:11 Tati Hansen MD Sep 27, 2016 11:11
--- NOTE | 2016-09-27 15:13 | HHI.CCPN ---
Subjective Remarks/Hospital Course This is a 61-year-old male with a past medical history of chronic pancreatitis, hypertension, type 2 diabetes who presented with abdominal pain that started Tuesday. Patient stated that abdominal pain is located in the left lower quadrant and it was very mild. He said over the weekend has worsened in intensity and is constant. Patient stated that he has some nausea that resolves or improves with food. Deny any emesis. Patient also complains of a chronic productive cough that has been the same. He denies any diarrhea or constipation and see that his stools are normal. Patient also denies any fever or chills. She was admitted to hospitalist service and was evaluated subsequently by GI, Dr. Pinto as well as Dr. Henriquez from general surgery in view of abnormal CT abdomen pelvis with left upper quadrant inflammatory change in these and treat with edema and KUBs raising question of SBO. She underwent E lap with lysis of lesions under general anesthesia by Dr. Henriquez on 09/10, EBL 100 cc, received 2 L crystalloid intraoperatively, postop diagnosis small bowel adhesions. Patient was kept intubated postoperatively and transferred to [facility]. I saw the patient shortly after his arrival to the ICU. He had just been started on Versed and fentanyl and dropped his blood pressure to the 60 systolic range. He was ordered a fluid bolus 2 L crystalloids stat and started on Levophed for hypotension. Stat cultures were sent. Patient also is having problem with his O2 sats were dropping in the 80s. Stat chest x-ray was ordered. While waiting for chest x-ray, ET tube helicopter pilot balloon appeared damaged hence cuff was not holding air so patient was sedated with Etomidate/ Fentanyl/ Rocuronium and ET tube was changed over a tube exchanger which was confirmed with a postprocedure chest x-ray with satisfactory placement of ET tube, right IJ central line in place, bilateral interstitial infiltrates with hyperinflated lung rothman, no pneumothorax. Patient was requiring 2 mics of Levophed for pressor support. 09/11: Ongoing hypotension and difficulty with oxygenation. Persistent hypotension responsive to volume. CVP 20. Suspect chronic pulmonary hypertension with heavily preload-dependent cardiac output. Will start milrinone for RV support and add vasopressin to levophed prn. Sustained tachycardia prohibits continued escalation of levophed. Underlying lung function is marginal at best. 09/12 0740 hrs: Severe chronic lung disease without significant reserve appears to be the primary pathophysiology here. We were able to produce acceptable cardiac output yesterday with milrinone and vasopressin, minor amounts levophed for peripheral support. He has developed refractory hypoxemia overnight in the 60 - 70% range which is incompatible with survival. Cardiopulmonary dynamics have been maximized and are beginning to deteriorate. Will get another CXR and see if thoracentesis will help lung function. 09/12 1600 hours: Continued difficulty with oxygenation, sats in range 78 - 81% .Cardioverted pharmacologically back to NSR and Flotrac output 7.8. Abdominal pressure 18. At this point he has adequate blood flow and oxygen delivery capacity despite low PO2. We have tried various vent modes and PC/AC appears to work best. SVV is 10; altogether these observations recommend diuresis to help oxygenation. He has horrible diffuse emphysema and a moderate right pleural effusion - may be forced to place a chest tube to allow better lung expansion. 09/13: Improved oxygenation after aggressive diuresis. Renal function remains stable. Alert, responsive. 09.14: Continued good diuresis after lasix. A-aO2 gradient marginally improved. Remains alert. 09/15: Currently afebrile. Almost off norepinephrine drip. Awake and alert and follows commands. FiO2 70%. 09/16: Complaining of air hunger on the ventilator. Currently afebrile. FiO2 back down at 70%. Inspiratory pressure decreased from 18 to 12. 09/17: Awake and alert. Central line was changed to the left side. Afebrile. FiO2 down to 60%. On 2 g per min of norepinephrine. 09/18: Awake and alert. No acute changes overnight. FiO2 was remains at 60%. Tolerating tube feeding. 09/19: Tmax 99.8. Currently 99. No bowel movement. Tolerating tube feeds. Right chest tube removed yesterday we'll attempt to remove left chest tube today. Awake and alert and following commands. 09/20: Orally intubated on mechanical ventilation. Off sedation he is awake and alert following commands. 09/21: Sedated, easily arousable, orally intubated on mechanical ventilation. Tolerating C Pap with pressure support overnight. 09/22: Extubated yesterday. Requiring BiPAP overnight. On Precedex. Awake and alert, following commands. Knows he is at the hospital and verbalizes appropriately. Being diuresed. 09/23: Was on high flow O2 till around 4 AM when he was placed back on BiPAP. He is back on high flow nasal cannula with 70% FiO2 40 L/m. On tube feeds. TPN discontinued yesterday. Left upper axillary swelling noted. 09/24: Was placed on BiPAP last night. Appears comfortable on high flow nasal cannula this morning. Remains on Precedex. -4.8 L in the last 24 hours. Continues to diurese well. Tolerating tube feeds. 09/25: Continues on BiPAP at 40%. Remains on low-dose Precedex. -4 L past 24 hours. Excellent diuresis. Hold Lasix today hold potassium supplementation. Noted elevated white blood cell count. 09/26: Currently on high flow nasal cannula 30%/40 L. Attempt to transition to nasal cannula today. Auto diuresed 4 L overnight. SLOWLY decreasing. Noted that left IJ CVL discontinued yesterday. Blood cultures were drawn. Currently asking to remove wrist restraints. Subjective 09/27: On high flow nasal cannula 40% at 25 L. White blood cell count slowly decreasing. Blood cultures no growth. Awake and interactive. Objective Vital Signs Date Time Temp Pulse Resp B/P Pulse Ox O2 Delivery O2 Flow Rate FiO2 09/27/16 14:00 82 09/27/16 12:00 99.5 20 123/60 93 09/27/16 09:40 High Flow Nasal Cannula 25.00 40 Intake and Output 09/26/16 09/26/16 09/27/16 08:00 16:00 00:00 Intake Total 550 ml 947 ml 749 ml Output Total 2030 ml 1070 ml 1510 ml Balance -1480 ml -123 ml -761 ml Result Diagram: 09/27/16 0353 09/27/16 0353 Other Results Microbiology Date/Time Procedure Status Source Growth 09/25/16 14:30 Aerobic Blood Culture - Preliminary Resulted Blood Line NO GROWTH IN 2 DAYS 09/25/16 14:30 Anaerobic Blood Culture - Preliminary Resulted Blood Line NO GROWTH IN 2 DAYS 09/25/16 11:40 Aerobic Blood Culture Received Blood Line Pending 09/25/16 11:40 Anaerobic Blood Culture Received Blood Line Pending Imaging Last Impressions Chest CT 09/25/16 0000 Signed Impressions: Service Date/Time: Sunday, September 25, 2016 17:09 - CONCLUSION: Symmetric bilateral lower lobe abnormalities including segmental consolidation and 3 cm pleural effusions. Severe upper lobe emphysema. There is also a 5 mm solitary pulmonary nodule in the right midlung. Anibal Álvarez MD Chest X-Ray 09/24/16 0600 Signed Impressions: Service Date/Time: Saturday, September 24, 2016 06:14 - CONCLUSION: Stable chest x-ray with mild bibasilar opacities which could represent small pleural effusions. There is also likely associated consolidation in the lower lung zones. Gumaro Brown MD Upper Extremity Ultrasound 09/23/16 0000 Signed Impressions: Service Date/Time: August 15:27 - CONCLUSION: 1. Superficial thrombosed by this involving the cephalic and basilic veins. No deep venous thrombosis is identified. Manjeet Guevara MD Abdomen X-Ray 09/09/16 0600 Signed Impressions: Service Date/Time: August 04:54 - CONCLUSION: No significant interval change. Persistent upper mid abdomen small bowel dilatation and wall thickening. Filiberto Hall MD Abdomen/Pelvis CT 09/08/16 0000 Signed Impressions: Service Date/Time: Thursday, September 08, 2016 23:45 - CONCLUSION: 1. Marked inflammatory changes of left upper quadrant with severe mesenteric edema and adjacent short segment circumferential wall thickening of mid small bowel and adjacent distal transverse colon. Possible 4 cm abscess adjacent to the mid small bowel wall. Evaluation of intraluminal versus extraluminal fluid in this region is limited as intraluminal contrast is not present in this loop. A delayed scan may be beneficial for clarification. Differential diagnosis includes inflammatory bowel disease and infection. Moderate amount of free fluid similar to prior study. No evidence of free air. 2. Chronic pancreatitis. Filiberto Hall MD ADDENDUM: Delayed images show contrast filling the thickened loops of left upper quadrant small bowel. No evidence of abscess. Findings were discussed with Dr. Henriquez. Filiberto Hall MD Objective Remarks GENERAL: 61-year-old male, currently in bed, on high flow nasal cannula in no acute distress SKIN: Warm and dry. No rash HEAD: Atraumatic. Normocephalic. EYES: Pupils equal and round about 3 mm bilaterally and reactive. No scleral icterus. No injection or drainage. ENT: No nasal bleeding or discharge. Mucous membranes pink and moist. NECK: Trachea midline. No JVD. Orotracheally intubated. Left IJ clean dry and intact CARDIOVASCULAR: RRR. S1, S2. No S4. Without murmur. RESPIRATORY: On high flow nasal cannula. Diminished breath sounds throughout. No rhonchi appreciated. No end expiratory wheeze. GASTROINTESTINAL: Abdomen slightly tender palpation. Normoactive bowel sounds. Incisional sutures intact without erythema or dehiscence. No drainage. MUSCULOSKELETAL: Extremities with trace extremity peripheral edema. No obvious deformities. NEUROLOGICAL: Arousable and follows commands. No obvious cranial nerve deficits. Motor grossly within normal limits. Five out of 5 muscle strength in the arms and legs. Vascular Central Line Catheter: Yes Assessment to: Continue Date of Insertion: Sep 16, 2016 Date of Removal: Sep 25, 2016 Line: Central Venous Catheter Side: Left Location: Internal, Jugular A/P Assessment and Plan Neuro/Psych: Toxic metabolic encephalopathy Acetaminophen for fever Morphine 2-4 mg IV as needed for pain management Off Precedex drip. Off fentanyl drip. Seroquel 25 twice a day. Wean down as tolerated CV: A. fib with RVR - normal sinus rhythm Hypertension Dyslipidemia History of splenic artery stenting secondary to aneurysm Off all vasopressors and milrinone Amiodarone drip has been discontinued 1 week Currently on Prinivil 10 mg by mouth twice daily for hypertension with holding parameters for low blood pressure Off Solu-Cortef. Resp: Acute hypoxemic respiratory failure Severe COPD Pleural effusion status post bilateral chest tubes since removed Right midlung pulmonary nodule/[address] follow-up recommended 6 months Extubated on 09/21. Requiring BiPAP when necessary. On high flow O2 with intermittent BiPAP. Started Solu-Medrol 60 mg IV every 8 hourly on 09/21 and diuresis to see if respiratory status improves. Diuresis discontinued 09/25 DuoNeb therapy every 6 hours with albuterol every 2 hours for breakthrough dyspnea Pulmicort twice a day Followed by /pulmonology Right chest tube discontinued 09/18 Left chest tube discontinued 09/19 Patient is okay with intubation and tracheostomy if needed which I confirmed with him on 09/22 CT thorax revealed right pulmonary nodule 5 mm, 3 cm bilateral pleural effusions. GI: Postop day #18 exploratory lap lysis of adhesions - Dr. Henriquez Chronic pancreatitis Abdominal ascites Internal hemorrhoids Elevated transaminases Status post EGD by GI. - Pathology revealed chronic gastritis inflammation Says post colonoscopy by GI 09/06 -incomplete splenic flexure normal mucosa. Internal hemorrhoids. TPN stopped on 09/22 as patient tolerating tube feeds Currently tube feeds Glucerna 1.5 at 60 cc an hour/goal. ADA diet/. Pured With honey thickened liquids. Protonix 40 mg IV twice a day Follow LFTs. slowly trending downward. : Tavarez has been placed for accurate I's and O's in a critically ill patient Endo: Diabetes mellitus Sliding-scale insulin with Accu-Cheks every 4 hours maintain euglycemia/High dose . 15 units sliding scale past 24 hours Levemir 12 twice a day will be continued Holding home medication glipizide 10 mg by mouth daily Renal: Strict intake output, monitor and replete electrolytes, follow BUN/creatinine. Continue diuresis with Lasix. Received Diamox 500 mg IV x 3 for contraction alkalosis. Heme: Leukocytosis Anemia Right cephalic/basilic superficial thrombus Follow CBC. On Lovenox 40 subcutaneous daily ID: ID has stopped all antibiotics since 09/22. Pertinent cultures 09/25 - blood cultures 2 - no growth 09/17 - sputum - no growth 09/11 - blood culture - no growth 09/10 - blood culture 2 - no growth 09/10 - urine - no growth 09/02 - blood culture 2 - no growth Discontinued left IJ central line 09/25. Replace peripherals. FEN: Hypernatremia Replace electrolytes as clinically indicated per ICU electrolyte protocol Free water was discontinued by primary team cc every 4 hours We'll start on 06/30 normal saline 2 L/gentle hydration. MSK: PT/OT evaluate and treat Access - Right IJ CVL placed 09/08-09/16 - Left IJ CVL 09/16 - 09/25 Prophylaxis - GI - Protonix IV twice a day - DVT - SCD/Lovenox Critical Care: The total care time was 35 minutes. Time to perform other separately billable procedures was not included in the critical care time. Wilder Humphrey MD Sep 27, 2016 15:13
[2016-09-27] MEDS ORDERED: LABETALOL HCL 100 MG/20 ML VIAL IV PUSH PRN (16:30)
[2016-09-27] MEDS ORDERED: DEXTROSE 50% IN WATER 50 ML VIAL(D50) IV PUSH PRN (16:30)
[2016-09-27] MEDS ORDERED: GLUCAGON 1 MG/ML VIAL OTHER PRN (16:30)
[2016-09-27] MEDS: ENOXAPARIN SODIUM 40 MG/0.4 ML SYRINGE SQ SCH (17:45)
--- NOTE | 2016-09-27 17:56 | HHI.PR ---
Subjective Remarks %, maintans sat61 YOWM with Pancreatitis,COPD,Nicotine use had Exp Lap Extubated w On High flow, 40% Tolerates PO Objective Vital Signs Vital Signs Date Time Temp Pulse Resp B/P Pulse Ox O2 Delivery O2 Flow Rate FiO2 09/27/16 14:00 82 09/27/16 12:00 99.5 96 20 123/60 93 09/27/16 12:00 96 09/27/16 10:00 100 09/27/16 09:40 94 High Flow Nasal Cannula 25.00 40 09/27/16 08:00 98.5 87 26 116/64 93 09/27/16 08:00 87 09/27/16 08:00 93 Nasal Cannula 8.00 09/27/16 06:00 82 09/27/16 04:00 82 09/27/16 04:00 99.1 102 22 131/73 91 09/27/16 02:00 86 09/27/16 00:00 99.0 100 25 118/68 89 09/27/16 00:00 82 09/26/16 22:00 91 09/26/16 20:50 95 High Flow Nasal Cannula 25.00 40 09/26/16 20:00 90 Nasal Cannula 8.00 09/26/16 20:00 99.5 84 23 146/77 95 09/26/16 20:00 84 09/26/16 18:00 89 I/O 09/26/16 09/26/16 09/26/16 09/27/16 09/27/16 09/27/16 07:00 15:00 23:00 07:00 15:00 23:00 Intake Total 550 ml 947 ml 749 ml 610 ml 518 ml Output Total 2030 ml 1070 ml 1510 ml 2015 ml 610 ml Balance -1480 ml -123 ml -761 ml -1405 ml -92 ml Intake Oral 450 ml 100 ml IV Total 99 ml 74 ml 89 ml 78 ml Tube Feeding 451 ml 423 ml 460 ml 410 ml 240 ml Other 200 ml 200 ml 100 ml Output Urine Total 2000 ml 1050 ml 1500 ml 2000 ml 600 ml Drainage Total 30 ml 20 ml 10 ml 15 ml 10 ml # Bowel Movements 2 1 2 2 2 Result Diagram: 09/27/16 0353 09/27/16 0353 Objective Remarks GENERAL: MBMN WM , on BIPAP SKIN: Warm and dry. HEAD: Normocephalic. EYES: No scleral icterus. No injection or drainage. NECK: Supple, trachea midline. No JVD or lymphadenopathy. CARDIOVASCULAR: Regular rate and rhythm without murmurs, gallops, or rubs. RESPIRATORY: Breath sounds equal bilaterally. No accessory muscle use. GASTROINTESTINAL: Abdomen soft, non-tender, MUSCULOSKELETAL: No cyanosis, or edema. BACK: Nontender without obvious deformity. No CVA tenderness. A/P Assessment and Plan RF, s/p Extubation Hypoxia Hypotension-resolved S/P Exp Lap COPD Nicotine use DM PLAN: High flow 02 to keep sat >88% Broad spectrum Abx Aerosol nebs. TF Encourage Velasquez Kumar MD Sep 27, 2016 17:55
[2016-09-27] MEDS: NITROGLYCERIN 2% OINT 1 GM PACKET TOPICAL PRN (18:58)
[2016-09-27] MEDS: SODIUM CHLORIDE 23.4% INJ 38.5 MEQ in WATER STERILE FOR INJ 1,000 ML IV SCH (20:10)
[2016-09-27] MEDS: hydrALAZINE HCL 20 MG/ML VIAL IV PUSH PRN (21:14)
[2016-09-28] VITALS (15 sets, daily range): BP systolic 129–166; BP diastolic 69–78; PULSE 74–99; RESP 16–24; TEMP 98.3–98.9; O2SAT 88–96
[2016-09-28] MEDS: RESP: ALBUTEROL 2.5 MG/IPRATROPIUM 0.5 MG NEB (SCH) NEB ×4 (03:20→20:08)
[2016-09-28 04:15] LABS: BASOPHIL % 0.2 % (0.0-2.0); HEMATOCRIT 53.7 % (39.0-51.0); HEMO FLAGS DIFF FINAL; LYMPH % 5.7 % (9.0-44.0); MEAN CELL VOLUME 89.4 FL (80.0-100.0); MEAN CORPUSCULAR HEMOGLOBIN 28.6 PG (27.0-34.0); MONO % 1.9 % (0.0-8.0); NEUT % 92.2 % (16.0-70.0); PLATELET COUNT 134 TH/MM3 (150-450); RED BLOOD COUNT 6.01 MIL/MM3 (4.50-5.90); RED CELL DISTRIBUTION WIDTH 15.5 % (11.6-17.2); WHITE BLOOD COUNT 17.3 TH/MM3 (4.0-11.0)
[2016-09-28 04:37] LABS: ALT (GPT) 63 U/L (12-78); ANION GAP 7 MEQ/L (5-15); AST (GOT) 31 U/L (15-37); BICARBONATE 34.8 MEQ/L (21.0-32.0); BLOOD UREA NITROGEN 39 MG/DL (7-18); CHLORIDE 113 MEQ/L (98-107); GLOMERULAR FILTRATION RATE 117 ML/MIN (>89); MAGNESIUM 2.1 MG/DL (1.5-2.5); POTASSIUM 3.5 MEQ/L (3.5-5.1); SODIUM (NA) 155 MEQ/L (136-145)
[2016-09-28 04:40] LABS: ALKALINE PHOSPHATASE 76 U/L (45-117); TOTAL BILIRUBIN ADULT 1.2 MG/DL (0.2-1.0)
[2016-09-28] MEDS: methylPREDNISolone SOD SUCC 125 MG/2 ML VIAL IV PUSH SCH ×2 (04:52→15:48)
[2016-09-28] MEDS: INSULIN NovoLIN REGULAR SUPPLEMENTAL SCALE SQ SCH ×4 (05:05→20:09)
[2016-09-28] MEDS: SODIUM CHLORIDE 0.9% FLUSH 5 ML FLUSH FLUSH SCH ×2 (07:13→20:10)
[2016-09-28] MEDS: CHLORHEXIDINE 0.12% (ORAL KIT) 15 ML CUP MT SCH ×2 (08:00→20:00)
[2016-09-28] MEDS: RESP: BUDESONIDE 0.5 MG/2 ML NEB NEB SCH ×2 (08:13→20:08)
[2016-09-28] MEDS: guaiFENesin E.R. 600 MG TAB PO SCH ×2 (08:34→20:09)
[2016-09-28] MEDS: PANTOPRAZOLE SODIUM 40 MG VIAL IV PUSH SCH ×2 (08:34→20:09)
[2016-09-28] MEDS: LISINOPRIL 10 MG TAB PO SCH (08:34)
[2016-09-28] MEDS: LORATADINE 10 MG TAB PO SCH (08:34)
[2016-09-28] MEDS: QUEtiapine FUMARATE 25 MG TAB PO SCH (08:34)
[2016-09-28] MEDS: SODIUM CHLORIDE 0.9% FLUSH 10 ML FLUSH IVF SCH (08:35)
[2016-09-28] MEDS: FLUTICASONE PROPIONATE 50 MCG/ACT 16 GM NASAL SPRAY NASAL SCH ×2 (08:35→20:10)
[2016-09-28] MEDS: INSULIN DETEMIR 100 UNITS/ML VIAL SQ SCH ×2 (08:35→20:08)
--- NOTE | 2016-09-28 10:32 | HHI.PR ---
Subjective Subjective Notes Resting in bed States "I am going home!" Objective Vitals/I&O Vital Signs Date Time Temp Pulse Resp B/P Pulse Ox O2 Delivery O2 Flow Rate FiO2 09/28/16 09:00 96 Nasal Cannula 35 09/28/16 08:13 25.00 09/28/16 08:00 98.3 75 24 166/78 Labs Laboratory Tests Test 09/28/16 03:46 White Blood Count 17.3 Red Blood Count 6.01 Hemoglobin 17.2 Hematocrit 53.7 Mean Corpuscular Volume 89.4 Mean Corpuscular Hemoglobin 28.6 Mean Corpuscular Hemoglobin 32.0 Concent Red Cell Distribution Width 15.5 Platelet Count 134 Mean Platelet Volume 11.4 Neutrophils (%) (Auto) 92.2 Lymphocytes (%) (Auto) 5.7 Monocytes (%) (Auto) 1.9 Eosinophils (%) (Auto) 0.0 Basophils (%) (Auto) 0.2 Neutrophils # (Auto) 16.0 Lymphocytes # (Auto) 1.0 Monocytes # (Auto) 0.3 Eosinophils # (Auto) 0.0 Basophils # (Auto) 0.0 CBC Comment DIFF FINAL Differential Comment Sodium Level 155 Potassium Level 3.5 Chloride Level 113 Carbon Dioxide Level 34.8 Anion Gap 7 Blood Urea Nitrogen 39 Creatinine 0.69 Estimat Glomerular Filtration 117 Rate Random Glucose 217 Calcium Level 8.5 Phosphorus Level 2.7 Magnesium Level 2.1 Total Bilirubin 1.2 Aspartate Amino Transf 31 (AST/SGOT) Alanine Aminotransferase 63 (ALT/SGPT) Alkaline Phosphatase 76 Total Protein 6.6 Albumin 2.6 Date/Time Procedure Status Source Growth 09/25/16 14:30 Aerobic Blood Culture - Preliminary Resulted Blood Line NO GROWTH IN 2 DAYS 09/25/16 14:30 Anaerobic Blood Culture - Preliminary Resulted Blood Line NO GROWTH IN 2 DAYS 09/25/16 11:40 Aerobic Blood Culture Received Blood Line Pending 09/25/16 11:40 Anaerobic Blood Culture Received Blood Line Pending Radiology Last Impressions Chest X-Ray 09/12/16 0000 Signed Impressions: Service Date/Time: Monday, September 12, 2016 07:39 - CONCLUSION: Bibasilar airspace disease and bilateral pleural effusions larger on the right. Zechariah Sims MD Abdomen X-Ray 09/09/16 0600 Signed Impressions: Service Date/Time: August 04:54 - CONCLUSION: No significant interval change. Persistent upper mid abdomen small bowel dilatation and wall thickening. Filiberto Hall MD Abdomen/Pelvis CT 09/08/16 0000 Signed Impressions: Service Date/Time: Thursday, September 08, 2016 23:45 - CONCLUSION: 1. Marked inflammatory changes of left upper quadrant with severe mesenteric edema and adjacent short segment circumferential wall thickening of mid small bowel and adjacent distal transverse colon. Possible 4 cm abscess adjacent to the mid small bowel wall. Evaluation of intraluminal versus extraluminal fluid in this region is limited as intraluminal contrast is not present in this loop. A delayed scan may be beneficial for clarification. Differential diagnosis includes inflammatory bowel disease and infection. Moderate amount of free fluid similar to prior study. No evidence of free air. 2. Chronic pancreatitis. Filiberto Hall MD ADDENDUM: Delayed images show contrast filling the thickened loops of left upper quadrant small bowel. No evidence of abscess. Findings were discussed with Dr. Henriquez. Filiberto Hall MD Cardiovascular: Regular Lungs: Clear Abdomen: Other (abdomen soft; non tender; midline incision with joseluis--c/d/i ; ROSHAN x1 with minimal SS fluid) Extremities: Other (generalized edema ) A/P Problem List: (1) Sepsis (2) COPD (chronic obstructive pulmonary disease) (3) Hypokalemia (4) Hyponatremia (5) Abdominal pain (6) Enteritis (7) Ileus (8) Leukocytosis (9) Diabetes (10) Systemic inflammatory response syndrome (SIRS) Assessment and Plan 61 year old male POD18 Exploratory Laparotomy, lysis of adhesions -High flow NC -PO diet + nocturnal TF at 30 cc/hr -Calorie Count to start tomorrow -Remove joseluis -Remove ROSHAN drain -Discussed with LINDSAY Torres -Discussed with Dr. Morales Attending Note - Dr. Henriquez No issues; starting to eat Abdominal wound clean; steristrips re-applied transversely The exam, history, and the medical decision-making described in the above note were completed with the assistance of the mid-level provider. I reviewed and agree with the findings presented. I attest that I had a [id number] encounter with the patient on the same day, and personally performed and documented my assessment and findings in the medical record. Problem Qualifiers (1) Leukocytosis: Qualified Code: D72.829 - Leukocytosis, unspecified type Charisma Larson Sep 28, 2016 10:32 Bret Henriquez MD Sep 29, 2016 16:31
--- NOTE | 2016-09-28 10:52 | PD.TRANSFR ---
Transfer Summary Admission Date Sep 02, 2016 at 17:01 Transfer Date: Sep 28, 2016 Admitting Diagnosis intractable abdominal pain; acute enteritis; hyponatremia; Diagnoses: Transfer Summary/Subjective This is a 61-year-old male with a past medical history of chronic pancreatitis, hypertension, type 2 diabetes who presented with abdominal pain that started Tuesday. Patient stated that abdominal pain is located in the left lower quadrant and it was very mild. He said over the weekend has worsened in intensity and is constant. Patient stated that he has some nausea that resolves or improves with food. Deny any emesis. Patient also complains of a chronic productive cough that has been the same. He denies any diarrhea or constipation and see that his stools are normal. Patient also denies any fever or chills. She was admitted to hospitalist service and was evaluated subsequently by GI, Dr. Pinto as well as Dr. Henriquez from general surgery in view of abnormal CT abdomen pelvis with left upper quadrant inflammatory change in these and treat with edema and KUBs raising question of SBO. She underwent E lap with lysis of lesions under general anesthesia by Dr. Henriquez on 09/10, EBL 100 cc, received 2 L crystalloid intraoperatively, postop diagnosis small bowel adhesions. Patient was kept intubated postoperatively and transferred to [facility]. I saw the patient shortly after his arrival to the ICU. He had just been started on Versed and fentanyl and dropped his blood pressure to the 60 systolic range. He was ordered a fluid bolus 2 L crystalloids stat and started on Levophed for hypotension. Stat cultures were sent. Patient also is having problem with his O2 sats were dropping in the 80s. Stat chest x-ray was ordered. While waiting for chest x-ray, ET tube aerial applicator pilot balloon appeared damaged hence cuff was not holding air so patient was sedated with Etomidate/ Fentanyl/ Rocuronium and ET tube was changed over a tube exchanger which was confirmed with a postprocedure chest x-ray with satisfactory placement of ET tube, right IJ central line in place, bilateral interstitial infiltrates with hyperinflated lung rothman, no pneumothorax. Patient was requiring 2 mics of Levophed for pressor support. 09/11: Ongoing hypotension and difficulty with oxygenation. Persistent hypotension responsive to volume. CVP 20. Suspect chronic pulmonary hypertension with heavily preload-dependent cardiac output. Will start milrinone for RV support and add vasopressin to levophed prn. Sustained tachycardia prohibits continued escalation of levophed. Underlying lung function is marginal at best. 09/12 0740 hrs: Severe chronic lung disease without significant reserve appears to be the primary pathophysiology here. We were able to produce acceptable cardiac output yesterday with milrinone and vasopressin, minor amounts levophed for peripheral support. He has developed refractory hypoxemia overnight in the 60 - 70% range which is incompatible with survival. Cardiopulmonary dynamics have been maximized and are beginning to deteriorate. Will get another CXR and see if thoracentesis will help lung function. 09/12 1600 hours: Continued difficulty with oxygenation, sats in range 78 - 81% .Cardioverted pharmacologically back to NSR and Flotrac output 7.8. Abdominal pressure 18. At this point he has adequate blood flow and oxygen delivery capacity despite low PO2. We have tried various vent modes and PC/AC appears to work best. SVV is 10; altogether these observations recommend diuresis to help oxygenation. He has horrible diffuse emphysema and a moderate right pleural effusion - may be forced to place a chest tube to allow better lung expansion. 09/13: Improved oxygenation after aggressive diuresis. Renal function remains stable. Alert, responsive. 09.14: Continued good diuresis after lasix. A-aO2 gradient marginally improved. Remains alert. 09/15: Currently afebrile. Almost off norepinephrine drip. Awake and alert and follows commands. FiO2 70%. 09/16: Complaining of air hunger on the ventilator. Currently afebrile. FiO2 back down at 70%. Inspiratory pressure decreased from 18 to 12. 09/17: Awake and alert. Central line was changed to the left side. Afebrile. FiO2 down to 60%. On 2 g per min of norepinephrine. 09/18: Awake and alert. No acute changes overnight. FiO2 was remains at 60%. Tolerating tube feeding. 09/19: Tmax 99.8. Currently 99. No bowel movement. Tolerating tube feeds. Right chest tube removed yesterday we'll attempt to remove left chest tube today. Awake and alert and following commands. 09/20: Orally intubated on mechanical ventilation. Off sedation he is awake and alert following commands. 09/21: Sedated, easily arousable, orally intubated on mechanical ventilation. Tolerating C Pap with pressure support overnight. 09/22: Extubated yesterday. Requiring BiPAP overnight. On Precedex. Awake and alert, following commands. Knows he is at the hospital and verbalizes appropriately. Being diuresed. 09/23: Was on high flow O2 till around 4 AM when he was placed back on BiPAP. He is back on high flow nasal cannula with 70% FiO2 40 L/m. On tube feeds. TPN discontinued yesterday. Left upper axillary swelling noted. 09/24: Was placed on BiPAP last night. Appears comfortable on high flow nasal cannula this morning. Remains on Precedex. -4.8 L in the last 24 hours. Continues to diurese well. Tolerating tube feeds. 09/25: Continues on BiPAP at 40%. Remains on low-dose Precedex. -4 L past 24 hours. Excellent diuresis. Hold Lasix today hold potassium supplementation. Noted elevated white blood cell count. 09/26: Currently on high flow nasal cannula 30%/40 L. Attempt to transition to nasal cannula today. Auto diuresed 4 L overnight. SLOWLY decreasing. Noted that left IJ CVL discontinued yesterday. Blood cultures were drawn. Currently asking to remove wrist restraints. 09/27: On high flow nasal cannula 40% at 25 L. White blood cell count slowly decreasing. Blood cultures no growth. Awake and interactive. Subjective 09/28: Resting comfortably in bed on 25 L O2 30% FiO2. Tolerating PO diet. Getting supplemental tube feeds at night. Has been aggressively diuresed over the last 7 days with good response. Objective Vital Signs Date Time Temp Pulse Resp B/P Pulse Ox O2 Delivery O2 Flow Rate FiO2 09/28/16 09:00 96 Nasal Cannula 35 09/28/16 08:13 25.00 09/28/16 08:00 98.3 75 24 166/78 Intake and Output 09/27/16 09/27/16 09/28/16 08:00 16:00 00:00 Intake Total 610 ml 518 ml 272 ml Output Total 2015 ml 610 ml 1530 ml Balance -1405 ml -92 ml -1258 ml Result Diagram: 09/28/16 0346 09/28/16 0346 Imaging Last Impressions Chest CT 09/25/16 0000 Signed Impressions: Service Date/Time: Sunday, September 25, 2016 17:09 - CONCLUSION: Symmetric bilateral lower lobe abnormalities including segmental consolidation and 3 cm pleural effusions. Severe upper lobe emphysema. There is also a 5 mm solitary pulmonary nodule in the right midlung. Anibal Álvarez MD Chest X-Ray 09/24/16599 Signed Impressions: Service Date/Time: Saturday, September 24, 2016 06:14 - CONCLUSION: Stable chest x-ray with mild bibasilar opacities which could represent small pleural effusions. There is also likely associated consolidation in the lower lung zones. Gumaro Brown MD Upper Extremity Ultrasound 09/23/16 0000 Signed Impressions: Service Date/Time: August 15:27 - CONCLUSION: 1. Superficial thrombosed by this involving the cephalic and basilic veins. No deep venous thrombosis is identified. Manjeet Guevara MD Abdomen X-Ray 09/09/16599 Signed Impressions: Service Date/Time: August 04:54 - CONCLUSION: No significant interval change. Persistent upper mid abdomen small bowel dilatation and wall thickening. Filiberto Hall MD Abdomen/Pelvis CT 09/08/16 0000 Signed Impressions: Service Date/Time: Thursday, September 08, 2016 23:45 - CONCLUSION: 1. Marked inflammatory changes of left upper quadrant with severe mesenteric edema and adjacent short segment circumferential wall thickening of mid small bowel and adjacent distal transverse colon. Possible 4 cm abscess adjacent to the mid small bowel wall. Evaluation of intraluminal versus extraluminal fluid in this region is limited as intraluminal contrast is not present in this loop. A delayed scan may be beneficial for clarification. Differential diagnosis includes inflammatory bowel disease and infection. Moderate amount of free fluid similar to prior study. No evidence of free air. 2. Chronic pancreatitis. Filiberto Hall MD ADDENDUM: Delayed images show contrast filling the thickened loops of left upper quadrant small bowel. No evidence of abscess. Findings were discussed with Dr. Henriquez. Filiberto Hall MD Objective Remarks GENERAL: 61-year-old male, currently in bed, on high flow nasal cannula in no acute distress SKIN: Warm and dry. No rash HEAD: Atraumatic. Normocephalic. EYES: Pupils equal and round about 3 mm bilaterally and reactive. No scleral icterus. No injection or drainage. ENT: No nasal bleeding or discharge. Mucous membranes pink and moist. NECK: Trachea midline. No JVD. CARDIOVASCULAR: RRR. S1, S2. No S4. Without murmur. RESPIRATORY: On high flow nasal cannula. Diminished breath sounds throughout. No rhonchi appreciated. No end expiratory wheeze. GASTROINTESTINAL: Abdomen soft. Normoactive bowel sounds. Incisional sutures intact without erythema or dehiscence. No drainage. ROSHAN drain in place MUSCULOSKELETAL: Extremities with trace extremity peripheral edema. No obvious deformities. NEUROLOGICAL: Awake alert oriented 2. No obvious cranial nerve deficits. Motor grossly within normal limits. Five out of 5 muscle strength in the arms and legs. Vascular Central Line Catheter: No Date of Insertion: Sep 16, 2016 Date of Removal: Sep 25, 2016 Line: Central Venous Catheter Side: Left Location: Internal, Jugular A/P Assessment and Plan Neuro/Psych: Toxic metabolic encephalopathy Acetaminophen for fever Morphine 2-4 mg IV as needed for pain management Seroquel 25 twice a day, increase bedtime dose to 50mg on 09/28 for worsening delirium at night. CV: A. fib with RVR - normal sinus rhythm Hypertension Dyslipidemia History of splenic artery stenting secondary to aneurysm Off all vasopressors and milrinone Amiodarone drip has been discontinued 1 week Currently on Prinivil 10 mg by mouth twice daily for hypertension with holding parameters for low blood pressure Off Solu-Cortef. Resp: Acute hypoxemic respiratory failure Severe COPD Pleural effusion status post bilateral chest tubes since removed Right midlung pulmonary nodule/[address] follow-up recommended 6 months Extubated on 09/21. BiPAP when necessary. On high flow O2 with intermittent BiPAP. Decrease Solu-Medrol to 60 mg IV every 12 hourly on 09/28. Diuresis discontinued 09/25 DuoNeb therapy every 6 hours with albuterol every 2 hours for breakthrough dyspnea Pulmicort twice a day Followed by /pulmonology Right chest tube discontinued 09/18 Left chest tube discontinued 09/19 Patient is okay with intubation and tracheostomy if needed which I confirmed with him on 09/22 CT thorax revealed right pulmonary nodule 5 mm, 3 cm bilateral pleural effusions. GI: Postop day #19 exploratory lap lysis of adhesions - Dr. Henriquez Chronic pancreatitis Abdominal ascites Internal hemorrhoids Elevated transaminases Status post EGD by GI. - Pathology revealed chronic gastritis inflammation Says post colonoscopy by GI 09/06 -incomplete splenic flexure normal mucosa. Internal hemorrhoids. TPN stopped on 09/22 as patient tolerating tube feeds Currently on nocturnal tube feeds Glucerna 1.5 at 60 cc an hour/goal. ADA diet/. Pured With honey thickened liquids. Protonix 40 mg IV twice a day Follow LFTs. slowly trending downward. : Tavarez has been placed for accurate I's and O's in a critically ill patient Endo: Diabetes mellitus Sliding-scale insulin with Accu-Cheks every 4 hours maintain euglycemia/High dose . 15 units sliding scale past 24 hours Levemir 12 twice a day will be continued Holding home medication glipizide 10 mg by mouth daily Renal: Strict intake output, monitor and replete electrolytes, follow BUN/creatinine. Status post aggressive diuresis removal of at least 15 L of fluid over the last week. Edema and respiration status much improved. Heme: Leukocytosis Anemia Right cephalic/basilic superficial thrombus Follow CBC. On Lovenox 40 subcutaneous daily ID: ID has stopped all antibiotics since 09/22. Pertinent cultures 09/25 - blood cultures 2 - no growth 09/17 - sputum - no growth 09/11 - blood culture - no growth 09/10 - blood culture 2 - no growth 09/10 - urine - no growth 09/02 - blood culture 2 - no growth Discontinued left IJ central line 09/25. Replace peripherals. FEN: Hypernatremia Replace electrolytes as clinically indicated per ICU electrolyte protocol Free water if needed. MSK: PT/OT evaluate and treat Access - Right IJ CVL placed 09/08-09/16 - Left IJ CVL 09/16 - 09/25 Prophylaxis - GI - Protonix IV twice a day - DVT - SCD/Lovenox Patient will be transferred to hospitalist service for further medical management. Being followed by pulmonary and general surgery. Critical care will be signing off at this time, please reconsult if needed. Solomon Morales MD Sep 28, 2016 10:52
--- NOTE | 2016-09-28 11:16 | HHI.PR ---
Subjective Remarks %, maintans sat61 YOWM with Pancreatitis,COPD,Nicotine use had Exp Lap Extubated w Tolerates PO Alert, awake, confused Objective Vital Signs Vital Signs Date Time Temp Pulse Resp B/P Pulse Ox O2 Delivery O2 Flow Rate FiO2 09/28/16 09:00 96 Nasal Cannula 35 09/28/16 08:13 96 High Flow Nasal Cannula 25.00 35 09/28/16 08:00 98.3 75 24 166/78 96 09/28/16 08:00 75 09/28/16 06:00 89 09/28/16 04:00 98.5 92 23 140/73 94 09/28/16 04:00 92 09/28/16 03:29 96 High Flow Nasal Cannula 25.00 40 09/28/16 02:00 92 09/28/16 00:00 98.6 99 23 129/69 88 09/28/16 00:00 99 09/27/16 22:00 93 09/27/16 22:00 94 High Flow Nasal Cannula 25.00 40 09/27/16 20:00 99.5 92 21 159/86 96 09/27/16 20:00 92 09/27/16 19:00 98 Nasal Cannula 8.00 09/27/16 18:00 92 09/27/16 16:00 98.6 96 22 171/81 94 09/27/16 16:00 96 09/27/16 14:00 82 09/27/16 12:00 99.5 96 20 123/60 93 09/27/16 12:00 96 I/O 09/27/16 09/27/16 09/27/16 09/28/16 09/28/16 09/28/16 07:00 15:00 23:00 07:00 15:00 23:00 Intake Total 610 ml 518 ml 272 ml 668 ml Output Total 2015 ml 610 ml 1530 ml 810 ml Balance -1405 ml -92 ml -1258 ml -142 ml Intake Oral 100 ml IV Total 78 ml 109 ml 335 ml Tube Feeding 410 ml 240 ml 43 ml 273 ml Tube Irrigant 120 ml 60 ml Other 200 ml 100 ml Output Urine Total 2000 ml 600 ml 1500 ml 800 ml Drainage Total 15 ml 10 ml 30 ml 10 ml # Bowel Movements 2 2 0 1 Result Diagram: 09/28/16 0346 09/28/16 0346 Objective Remarks GENERAL: MBMN WM , on BIPAP SKIN: Warm and dry. HEAD: Normocephalic. EYES: No scleral icterus. No injection or drainage. NECK: Supple, trachea midline. No JVD or lymphadenopathy. CARDIOVASCULAR: Regular rate and rhythm without murmurs, gallops, or rubs. RESPIRATORY: Breath sounds equal bilaterally. No accessory muscle use. GASTROINTESTINAL: Abdomen soft, non-tender, MUSCULOSKELETAL: No cyanosis, or edema. BACK: Nontender without obvious deformity. No CVA tenderness. A/P Assessment and Plan RF, s/p Extubation Hypoxia Hypotension-resolved S/P Exp Lap COPD Nicotine use DM PLAN: Supplement 02 to keep sat >88% Broad spectrum Abx Aerosol nebs. TF Encourage PO Velasquez Hill MD Sep 28, 2016 11:16
[2016-09-28] MEDS ORDERED: PILL SPLITTER OTHER PRN (12:00)
--- NOTE | 2016-09-28 13:33 | HHI.IDPN ---
Subjective Subjective Remarks Notes reviewed On nasal O2 sats good Temps better Confused WBC decreasing Nothing new on C/S he is off Abx Antibiotics None Past Medical History Reviewed Allergies: Coded Allergies: Penicillin (Verified Allergy, Severe, SWELLING, 09/11/16) has tolerated Cephalosporins in previous admissions *MDRO Multi-Drug Resistant Organism (Verified Adverse Reaction, Unknown, ) Hx MRSA Sputum 2006, Wounds 2003 MRSA PCR Screen negative 11/25/14 & 09/10/15. Cleared per Infection Control. Patient does not require isolation for hx of MRSA prior to 09/10/15. Objective . Vital Signs Date Time Temp Pulse Resp B/P Pulse Ox O2 Delivery O2 Flow Rate FiO2 09/28/16 10:00 91 09/28/16 09:00 96 Nasal Cannula 35 09/28/16 08:13 96 High Flow Nasal Cannula 25.00 35 09/28/16 08:00 98.3 75 24 166/78 96 09/28/16 08:00 75 09/28/16 06:00 89 09/28/16 04:00 98.5 92 23 140/73 94 09/28/16 04:00 92 09/28/16 03:29 96 High Flow Nasal Cannula 25.00 40 09/28/16 02:00 92 09/28/16 00:00 98.6 99 23 129/69 88 09/28/16 00:00 99 09/27/16 22:00 93 09/27/16 22:00 94 High Flow Nasal Cannula 25.00 40 09/27/16 20:00 99.5 92 21 159/86 96 09/27/16 20:00 92 09/27/16 19:00 98 Nasal Cannula 8.00 09/27/16 18:00 92 09/27/16 16:00 98.6 96 22 171/81 94 09/27/16 16:00 96 09/27/16 14:00 82 09/27/16 09/27/16 09/28/16 15:00 23:00 07:00 Intake Total 518 ml 272 ml 668 ml Output Total 610 ml 1530 ml 810 ml Balance -92 ml -1258 ml -142 ml Intake Oral 100 ml IV Total 78 ml 109 ml 335 ml Tube Feeding 240 ml 43 ml 273 ml Tube Irrigant 120 ml 60 ml Other 100 ml Output Urine Total 600 ml 1500 ml 800 ml Drainage Total 10 ml 30 ml 10 ml # Bowel Movements 2 0 1 . Laboratory Tests Test 09/27/16 09/28/16 03:53 03:46 White Blood Count 20.6 TH/MM3 17.3 TH/MM3 Red Blood Count 5.42 MIL/MM3 6.01 MIL/MM3 Hemoglobin 15.3 GM/DL 17.2 GM/DL Hematocrit 48.1 % 53.7 % Mean Corpuscular Volume 88.7 FL 89.4 FL Mean Corpuscular Hemoglobin 28.2 PG 28.6 PG Mean Corpuscular Hemoglobin 31.7 % 32.0 % Concent Red Cell Distribution Width 15.8 % 15.5 % Platelet Count 110 TH/MM3 134 TH/MM3 Mean Platelet Volume 12.6 FL 11.4 FL Neutrophils (%) (Auto) 90.2 % 92.2 % Lymphocytes (%) (Auto) 6.3 % 5.7 % Monocytes (%) (Auto) 2.9 % 1.9 % Eosinophils (%) (Auto) 0.1 % 0.0 % Basophils (%) (Auto) 0.5 % 0.2 % Neutrophils # (Auto) 18.6 TH/MM3 16.0 TH/MM3 Lymphocytes # (Auto) 1.3 TH/MM3 1.0 TH/MM3 Monocytes # (Auto) 0.6 TH/MM3 0.3 TH/MM3 Eosinophils # (Auto) 0.0 TH/MM3 0.0 TH/MM3 Basophils # (Auto) 0.1 TH/MM3 0.0 TH/MM3 CBC Comment AUTO DIFF DIFF FINAL Differential Comment AUTO DIFF CONFIRMED Platelet Estimate Platelet Morphology Comment ENLARGED Hematology Comments Laboratory Tests Test 09/27/16 09/28/16 03:53 03:46 Sodium Level 155 MEQ/L 155 MEQ/L Potassium Level 3.9 MEQ/L 3.5 MEQ/L Chloride Level 115 MEQ/L 113 MEQ/L Carbon Dioxide Level 32.2 MEQ/L 34.8 MEQ/L Anion Gap 8 MEQ/L 7 MEQ/L Blood Urea Nitrogen 44 MG/DL 39 MG/DL Creatinine 0.68 MG/DL 0.69 MG/DL Estimat Glomerular Filtration 119 ML/MIN 117 ML/MIN Rate Random Glucose 283 MG/DL 217 MG/DL Calcium Level 7.8 MG/DL 8.5 MG/DL Phosphorus Level 2.8 MG/DL 2.7 MG/DL Magnesium Level 2.1 MG/DL 2.1 MG/DL Total Bilirubin 1.2 MG/DL Aspartate Amino Transf 31 U/L (AST/SGOT) Alanine Aminotransferase 63 U/L (ALT/SGPT) Alkaline Phosphatase 76 U/L Total Protein 6.6 GM/DL Albumin 2.6 GM/DL Microbiology Date/Time Procedure Status Source Growth 09/25/16 14:30 Aerobic Blood Culture - Preliminary Resulted Blood Line NO GROWTH IN 3 DAYS 09/25/16 14:30 Anaerobic Blood Culture - Preliminary Resulted Blood Line NO GROWTH IN 3 DAYS 09/25/16 14:30 Aerobic Blood Culture - Preliminary Resulted Blood Line NO GROWTH IN 3 DAYS 09/25/16 14:30 Anaerobic Blood Culture - Preliminary Resulted Blood Line NO GROWTH IN [address] 09/25/16 0000 Signed Impressions: Service Date/Time: Sunday, September 25, 2016 17:09 - CONCLUSION: Symmetric bilateral lower lobe abnormalities including segmental consolidation and 3 cm pleural effusions. Severe upper lobe emphysema. There is also a 5 mm solitary pulmonary nodule in the right midlung. Anibal Álvarez MD Chest X-Ray 09/21/16 0000 Signed Impressions: Service Date/Time: Wednesday, September 21, 2016 10:17 - CONCLUSION: New mild bilateral lower lung zone hazy opacity suggesting mild pulmonary edema. There is also atelectasis at the inferior left lung base. Possible small pleural effusions. Filiberto Hall MD Chest X-Ray 09/19/16 1300 Signed Impressions: Service Date/Time: Monday, September 19, 2016 13:35 - CONCLUSION: Improved lung exam. Question presence of endotracheal tube with the tip at the level of the clavicles . Carrie Olvera MD Chest X-Ray 09/17/16 0600 Signed Impressions: Service Date/Time: Saturday, September 17, 2016 05:37 - CONCLUSION: 1. No pneumothoraces. 2. Unchanged bibasilar consolidation. Anibal Malhotra Jr., MD Chest X-Ray 09/16/16 1504 Signed Impressions: Service Date/Time: August 15:12 - CONCLUSION: Central line placement without pneumothorax. Gumaro Correa MD Chest X-Ray 09/16/16 0600 Signed Impressions: Service Date/Time: August 02:16 - CONCLUSION: No significant change has occurred. John Payne MD Chest X-Ray 09/14/16 1200 Signed Impressions: Service Date/Time: Wednesday, September 14, 2016 12:25 - CONCLUSION: 1. No pneumothorax. 2. Multiple tubes and lines are stable. 3. Scattered patchy infiltrates bilaterally. Jostin Crow MD Chest X-Ray 09/12/16 0000 Signed Impressions: Service Date/Time: Monday, September 12, 2016 07:39 - CONCLUSION: Bibasilar airspace disease and bilateral pleural effusions larger on the right. Zechariah Sims MD Abdomen X-Ray 09/09/16 0600 Signed Impressions: Service Date/Time: August 04:54 - CONCLUSION: No significant interval change. Persistent upper mid abdomen small bowel dilatation and wall thickening. Filiberto Hall MD Abdomen/Pelvis CT 09/08/16 0000 Signed Impressions: Service Date/Time: Thursday, September 08, 2016 23:45 - CONCLUSION: 1. Marked inflammatory changes of left upper quadrant with severe mesenteric edema and adjacent short segment circumferential wall thickening of mid small bowel and adjacent distal transverse colon. Possible 4 cm abscess adjacent to the mid small bowel wall. Evaluation of intraluminal versus extraluminal fluid in this region is limited as intraluminal contrast is not present in this loop. A delayed scan may be beneficial for clarification. Differential diagnosis includes inflammatory bowel disease and infection. Moderate amount of free fluid similar to prior study. No evidence of free air. 2. Chronic pancreatitis. Filiberto Hall MD ADDENDUM: Delayed images show contrast filling the thickened loops of left upper quadrant small bowel. No evidence of abscess. Findings were discussed with Dr. Henriquez. Filiberto Hall MD Physical Exam GENERAL: Awake, confused, on nasal O2 SKIN: Cool and dry. No generalized rash HEENT: Metaline conjunctivae. No scleral icterus. Moist mucosa. NECK: Supple, nontender, no meningeal signs. CARDIOVASCULAR: Regular rate and rhythm without murmurs, gallops, or rubs. RESPIRATORY: Decreased BS bases GASTROINTESTINAL: Abdomen soft, not tender. Bowel sounds (+). Not distended. Midline incision, dry, no erythema. MUSCULOSKELETAL: Extremities without clubbing. Edema better, Feet cool with cyanosis NEUROLOGICAL: Responding PSYCH: Cooperative LINE: No evidence of infection : Tavarez in place, urine looks clear Assessment & Plan Remarks IMPRESSION Sepsis with shock, S/P exp lap with lysis of adhesions. - off pressors - resolved ? Spillage peritonitis. - ?shock due to other factors - C/S ok so far - better - abdomen exam benigh Respiratory failure, extubated 09/21 - fluid, PNA, ARDS - doing well on nasal o2 S/P exp lap, LUCY, for SBO Allergy to PCN, has tolerated Cephalosporins in the past Leukocytosis, improving Intermittent low grade temps, better RECOMMENDATION Monitor off Abx Monitor progress Monitor temps Tati Hansen MD Sep 28, 2016 13:33 Tati Hansen MD Sep 28, 2016 13:33
[2016-09-28] MEDS: SODIUM CHLORIDE 23.4% INJ 38.5 MEQ in WATER STERILE FOR INJ 1,000 ML IV SCH (15:49)
[2016-09-28] MEDS: ENOXAPARIN SODIUM 40 MG/0.4 ML SYRINGE SQ SCH (16:06)
[2016-09-28] MEDS: hydrALAZINE HCL 20 MG/ML VIAL IV PUSH PRN (16:07)
[2016-09-28] MEDS: NITROGLYCERIN 2% OINT 1 GM PACKET TOPICAL PRN (17:22)
[2016-09-28] MEDS: QUEtiapine FUMARATE 100 MG TAB PO SCH (20:10)
[2016-09-29] VITALS (16 sets, daily range): BP systolic 103–153; BP diastolic 58–86; PULSE 72–93; RESP 21–26; TEMP 98.1–98.7; O2SAT 91–100
[2016-09-29] MEDS: RESP: ALBUTEROL 2.5 MG/IPRATROPIUM 0.5 MG NEB (SCH) NEB ×4 (03:44→19:37)
[2016-09-29] MEDS: methylPREDNISolone SOD SUCC 125 MG/2 ML VIAL IV PUSH SCH ×2 (04:22→16:19)
[2016-09-29] MEDS: INSULIN NovoLIN REGULAR SUPPLEMENTAL SCALE SQ SCH ×4 (05:13→21:43)
[2016-09-29] MEDS: SODIUM CHLORIDE 0.9% FLUSH 10 ML FLUSH IVF SCH (08:56)
[2016-09-29] MEDS: CHLORHEXIDINE 0.12% (ORAL KIT) 15 ML CUP MT SCH ×2 (08:57→20:00)
[2016-09-29] MEDS: SODIUM CHLORIDE 0.9% FLUSH 5 ML FLUSH FLUSH SCH ×2 (08:57→21:00)
[2016-09-29] MEDS: PANTOPRAZOLE SODIUM 40 MG VIAL IV PUSH SCH ×2 (09:03→21:41)
[2016-09-29] MEDS: QUEtiapine FUMARATE 25 MG TAB PO SCH (09:04)
[2016-09-29] MEDS: FLUTICASONE PROPIONATE 50 MCG/ACT 16 GM NASAL SPRAY NASAL SCH ×2 (09:04→21:00)
[2016-09-29] MEDS: LISINOPRIL 10 MG TAB PO SCH (09:04)
[2016-09-29] MEDS: INSULIN DETEMIR 100 UNITS/ML VIAL SQ SCH ×2 (09:04→22:07)
[2016-09-29] MEDS: guaiFENesin E.R. 600 MG TAB PO SCH ×3 (09:04→21:44)
[2016-09-29] MEDS: LORATADINE 10 MG TAB PO SCH (09:04)
--- NOTE | 2016-09-29 09:06 | HHI.PR ---
Subjective Subjective Notes Resting in bed Ready to eat breakfast Objective Vitals/I&O Vital Signs Date Time Temp Pulse Resp B/P Pulse Ox O2 Delivery O2 Flow Rate FiO2 09/29/16 06:00 91 09/29/16 04:00 98.5 21 148/86 100 09/29/16 03:47 High Flow Nasal Cannula 25.00 40 Labs Date/Time Procedure Status Source Growth 09/25/16 14:30 Aerobic Blood Culture - Preliminary Resulted Blood Line NO GROWTH IN 3 DAYS 09/25/16 14:30 Anaerobic Blood Culture - Preliminary Resulted Blood Line NO GROWTH IN 3 DAYS 09/25/16 11:40 Aerobic Blood Culture Received Blood Line Pending 09/25/16 11:40 Anaerobic Blood Culture Received Blood Line Pending Radiology Last Impressions Chest X-Ray 09/12/16 0000 Signed Impressions: Service Date/Time: Monday, September 12, 2016 07:39 - CONCLUSION: Bibasilar airspace disease and bilateral pleural effusions larger on the right. Zechariah Sims MD Abdomen X-Ray 09/09/16 0600 Signed Impressions: Service Date/Time: August 04:54 - CONCLUSION: No significant interval change. Persistent upper mid abdomen small bowel dilatation and wall thickening. Filiberto Hall MD Abdomen/Pelvis CT 09/08/16 0000 Signed Impressions: Service Date/Time: Thursday, September 08, 2016 23:45 - CONCLUSION: 1. Marked inflammatory changes of left upper quadrant with severe mesenteric edema and adjacent short segment circumferential wall thickening of mid small bowel and adjacent distal transverse colon. Possible 4 cm abscess adjacent to the mid small bowel wall. Evaluation of intraluminal versus extraluminal fluid in this region is limited as intraluminal contrast is not present in this loop. A delayed scan may be beneficial for clarification. Differential diagnosis includes inflammatory bowel disease and infection. Moderate amount of free fluid similar to prior study. No evidence of free air. 2. Chronic pancreatitis. Filiberto Hall MD ADDENDUM: Delayed images show contrast filling the thickened loops of left upper quadrant small bowel. No evidence of abscess. Findings were discussed with Dr. Henriquez. Filiberto Hall MD Cardiovascular: Regular Lungs: Clear Abdomen: Other (abdomen soft; non tender; Jefferson removed; SS in place; ROSHAN drain removed ) Extremities: No edema A/P Problem List: (1) Sepsis (2) COPD (chronic obstructive pulmonary disease) (3) Hypokalemia (4) Hyponatremia (5) Abdominal pain (6) Enteritis (7) Ileus (8) Leukocytosis (9) Diabetes (10) Systemic inflammatory response syndrome (SIRS) Assessment and Plan 61 year old male POD19 Exploratory Laparotomy, lysis of adhesions -High flow NC ---pulmonology following -PO diet + nocturnal TF at 30 cc/hr -Calorie Count to start today -Discussed with LINDSAY Chan -GS will follow peripherally; please call with questions Attending Note - Dr. Henriquez Abdominal wound clean and dry; transversely applied steristrips clean and dry Peripheral edema resolved As above The exam, history, and the medical decision-making described in the above note were completed with the assistance of the mid-level provider. I reviewed and agree with the findings presented. I attest that I had a [id number] encounter with the patient on the same day, and personally performed and documented my assessment and findings in the medical record. Problem Qualifiers (1) Leukocytosis: Qualified Code: D72.829 - Leukocytosis, unspecified type Charisma Larson Sep 29, 2016 09:06 Bret Henriquez MD Sep 29, 2016 16:32
[2016-09-29] MEDS: RESP: BUDESONIDE 0.5 MG/2 ML NEB NEB SCH ×2 (12:11→19:37)
[2016-09-29] MEDS: ENOXAPARIN SODIUM 40 MG/0.4 ML SYRINGE SQ SCH (16:19)
--- NOTE | 2016-09-29 16:41 | HHI.PR ---
Subjective Remarks Remarks/Hospital Course This is a 61-year-old male with a past medical history of chronic pancreatitis, hypertension, type 2 diabetes who presented with abdominal pain that started Tuesday. Patient stated that abdominal pain is located in the left lower quadrant and it was very mild. He said over the weekend has worsened in intensity and is constant. Patient stated that he has some nausea that resolves or improves with food. Deny any emesis. Patient also complains of a chronic productive cough that has been the same. He denies any diarrhea or constipation and see that his stools are normal. Patient also denies any fever or chills. She was admitted to hospitalist service and was evaluated subsequently by GI, Dr. Pinto as well as Dr. Henriquez from general surgery in view of abnormal CT abdomen pelvis with left upper quadrant inflammatory change in these and treat with edema and KUBs raising question of SBO. She underwent E lap with lysis of lesions under general anesthesia by Dr. Henriquez on 09/10, EBL 100 cc, received 2 L crystalloid intraoperatively, postop diagnosis small bowel adhesions. Patient was kept intubated postoperatively and transferred to [facility]. I saw the patient shortly after his arrival to the ICU. He had just been started on Versed and fentanyl and dropped his blood pressure to the 60 systolic range. He was ordered a fluid bolus 2 L crystalloids stat and started on Levophed for hypotension. Stat cultures were sent. Patient also is having problem with his O2 sats were dropping in the 80s. Stat chest x-ray was ordered. While waiting for chest x-ray, ET tube captain/airline pilot balloon appeared damaged hence cuff was not holding air so patient was sedated with Etomidate/ Fentanyl/ Rocuronium and ET tube was changed over a tube exchanger which was confirmed with a postprocedure chest x-ray with satisfactory placement of ET tube, right IJ central line in place, bilateral interstitial infiltrates with hyperinflated lung rothman, no pneumothorax. Patient was requiring 2 mics of Levophed for pressor support. 09/11: Ongoing hypotension and difficulty with oxygenation. Persistent hypotension responsive to volume. CVP 20. Suspect chronic pulmonary hypertension with heavily preload-dependent cardiac output. Will start milrinone for RV support and add vasopressin to levophed prn. Sustained tachycardia prohibits continued escalation of levophed. Underlying lung function is marginal at best. 09/12 0740 hrs: Severe chronic lung disease without significant reserve appears to be the primary pathophysiology here. We were able to produce acceptable cardiac output yesterday with milrinone and vasopressin, minor amounts levophed for peripheral support. He has developed refractory hypoxemia overnight in the 60 - 70% range which is incompatible with survival. Cardiopulmonary dynamics have been maximized and are beginning to deteriorate. Will get another CXR and see if thoracentesis will help lung function. 09/12 1600 hours: Continued difficulty with oxygenation, sats in range 78 - 81% .Cardioverted pharmacologically back to NSR and Flotrac output 7.8. Abdominal pressure 18. At this point he has adequate blood flow and oxygen delivery capacity despite low PO2. We have tried various vent modes and PC/AC appears to work best. SVV is 10; altogether these observations recommend diuresis to help oxygenation. He has horrible diffuse emphysema and a moderate right pleural effusion - may be forced to place a chest tube to allow better lung expansion. 09/13: Improved oxygenation after aggressive diuresis. Renal function remains stable. Alert, responsive. 09.14: Continued good diuresis after lasix. A-aO2 gradient marginally improved. Remains alert. 09/15: Currently afebrile. Almost off norepinephrine drip. Awake and alert and follows commands. FiO2 70%. 09/16: Complaining of air hunger on the ventilator. Currently afebrile. FiO2 back down at 70%. Inspiratory pressure decreased from 18 to 12. 09/17: Awake and alert. Central line was changed to the left side. Afebrile. FiO2 down to 60%. On 2 g per min of norepinephrine. 09/18: Awake and alert. No acute changes overnight. FiO2 was remains at 60%. Tolerating tube feeding. 09/19: Tmax 99.8. Currently 99. No bowel movement. Tolerating tube feeds. Right chest tube removed yesterday we'll attempt to remove left chest tube today. Awake and alert and following commands. 09/20: Orally intubated on mechanical ventilation. Off sedation he is awake and alert following commands. 09/21: Sedated, easily arousable, orally intubated on mechanical ventilation. Tolerating C Pap with pressure support overnight. 09/22: Extubated yesterday. Requiring BiPAP overnight. On Precedex. Awake and alert, following commands. Knows he is at the hospital and verbalizes appropriately. Being diuresed. 09/23: Was on high flow O2 till around 4 AM when he was placed back on BiPAP. He is back on high flow nasal cannula with 70% FiO2 40 L/m. On tube feeds. TPN discontinued yesterday. Left upper axillary swelling noted. 09/24: Was placed on BiPAP last night. Appears comfortable on high flow nasal cannula this morning. Remains on Precedex. -4.8 L in the last 24 hours. Continues to diurese well. Tolerating tube feeds. 09/25: Continues on BiPAP at 40%. Remains on low-dose Precedex. -4 L past 24 hours. Excellent diuresis. Hold Lasix today hold potassium supplementation. Noted elevated white blood cell count. 09/26: Currently on high flow nasal cannula 30%/40 L. Attempt to transition to nasal cannula today. Auto diuresed 4 L overnight. SLOWLY decreasing. Noted that left IJ CVL discontinued yesterday. Blood cultures were drawn. Currently asking to remove wrist restraints. 09/27: On high flow nasal cannula 40% at 25 L. White blood cell count slowly decreasing. Blood cultures no growth. Awake and interactive. Hospitalist Notes: 09/29: Patient seen in the room, in the presence of nurse Miss Chan, already seen by General motor tune up specialist Doctor ROSHAN Henriquez tubes removed, clean surgical wound maintain good oxygen saturation on 4 L Nasal Cannula, but he is on restraints will keep him in this room and transfer to PCU in am tomorrow, maintain good vital signs. Leukocytosis trending down. Objective Vital Signs Date Time Temp Pulse Resp B/P Pulse Ox O2 Delivery O2 Flow Rate FiO2 09/29/16 16:11 93 Nasal Cannula 4.00 09/29/16 14:00 87 09/29/16 12:11 97 High Flow Nasal Cannula 25.00 40 09/29/16 12:00 78 09/29/16 12:00 98.5 78 26 140/76 96 09/29/16 10:00 82 09/29/16 08:00 72 09/29/16 08:00 98 Nasal Cannula 40 09/29/16 08:00 98.5 72 21 153/78 98 09/29/16 06:00 91 09/29/16 04:00 98.5 84 21 148/86 100 09/29/16 04:00 84 09/29/16 03:47 94 High Flow Nasal Cannula 25.00 40 09/29/16 02:00 93 09/29/16 00:00 98.1 93 21 103/58 97 09/29/16 00:00 93 09/28/16 22:00 99 09/28/16 20:08 93 High Flow Nasal Cannula 25.00 40 09/28/16 20:00 98.5 74 23 140/69 95 09/28/16 20:00 74 09/28/16 19:00 94 Nasal Cannula 35 09/28/16 18:00 81 I/O 09/28/16 09/28/16 09/28/16 09/29/16 09/29/16 09/29/16 07:00 15:00 23:00 07:00 15:00 23:00 Intake Total 668 ml 623 ml 245 ml 650 ml 515 ml Output Total 810 ml 685 ml 650 ml 550 ml 1100 ml Balance -142 ml -62 ml -405 ml 100 ml -585 ml Intake Oral 120 ml 90 ml IV Total 335 ml 356 ml 31 ml 326 ml 395 ml Tube Feeding 273 ml 87 ml 94 ml 264 ml Tube Irrigant 60 ml 60 ml 120 ml 60 ml Other 30 ml Output Urine Total 800 ml 675 ml 650 ml 550 ml 1100 ml Tube Feeding Residual Discard 0 ml Drainage Total 10 ml 10 ml # Bowel Movements 1 1 1 2 0 Result Diagram: 09/28/16 0346 09/28/16 0346 Imaging Last Impressions Chest CT 09/25/16 0000 Signed Impressions: Service Date/Time: Sunday, September 25, 2016 17:09 - CONCLUSION: Symmetric bilateral lower lobe abnormalities including segmental consolidation and 3 cm pleural effusions. Severe upper lobe emphysema. There is also a 5 mm solitary pulmonary nodule in the right midlung. Anibal Álvarez MD Chest X-Ray 09/24/16 0600 Signed Impressions: Service Date/Time: Saturday, September 24, 2016 06:14 - CONCLUSION: Stable chest x-ray with mild bibasilar opacities which could represent small pleural effusions. There is also likely associated consolidation in the lower lung zones. Gumaro Brown MD Upper Extremity Ultrasound 09/23/16 0000 Signed Impressions: Service Date/Time: August 15:27 - CONCLUSION: 1. Superficial thrombosed by this involving the cephalic and basilic veins. No deep venous thrombosis is identified. Manjeet Guevara MD Abdomen X-Ray 09/09/16 0600 Signed Impressions: Service Date/Time: August 04:54 - CONCLUSION: No significant interval change. Persistent upper mid abdomen small bowel dilatation and wall thickening. Filiberto Hall MD Abdomen/Pelvis CT 09/08/16 0000 Signed Impressions: Service Date/Time: Thursday, September 08, 2016 23:45 - CONCLUSION: 1. Marked inflammatory changes of left upper quadrant with severe mesenteric edema and adjacent short segment circumferential wall thickening of mid small bowel and adjacent distal transverse colon. Possible 4 cm abscess adjacent to the mid small bowel wall. Evaluation of intraluminal versus extraluminal fluid in this region is limited as intraluminal contrast is not present in this loop. A delayed scan may be beneficial for clarification. Differential diagnosis includes inflammatory bowel disease and infection. Moderate amount of free fluid similar to prior study. No evidence of free air. 2. Chronic pancreatitis. Filiberto Hall MD ADDENDUM: Delayed images show contrast filling the thickened loops of left upper quadrant small bowel. No evidence of abscess. Findings were discussed with Dr. Henriquez. Filiberto Hall MD Procedures status post Exploratory Laparotomy and Lysis of adhesions. Other Results Laboratory Tests Test 09/25/16 09/25/16 09/26/16 09/27/16 06:28 13:10 03:33 03:53 Band Neutrophils % 1 % Urine Color YELLOW Urine Turbidity CLEAR Urine pH 8.0 Urine Specific [place] 1.011 Urine Protein 30 mg/dL Urine Glucose (UA) NEG mg/dL Urine Ketones NEG mg/dL Urine Occult Blood SMALL Urine Nitrite NEG Urine Bilirubin NEG Urine Urobilinogen LESS THAN 2.0 MG/DL Urine Leukocyte Esterase NEG Urine RBC 8 /hpf Urine WBC 1 /hpf Urine Transitional Epithelial <1 /hpf Cells Urine Mucus FEW /lpf Microscopic Urinalysis Comment CATH-CULT NOT IND Differential Total Cells 100 Counted Neutrophils % (Manual) 83 % Lymphocytes % 5 % Monocytes % 12 % Neutrophils # (Manual) 19.9 TH/MM3 Red Cell Morphology Comment NORMAL Platelet Estimate Platelet Morphology Comment ENLARGED Hematology Comments Test 09/28/16 03:46 White Blood Count 17.3 TH/MM3 Red Blood Count 6.01 MIL/MM3 Hemoglobin 17.2 GM/DL Hematocrit 53.7 % Mean Corpuscular Volume 89.4 FL Mean Corpuscular Hemoglobin 28.6 PG Mean Corpuscular Hemoglobin 32.0 % Concent Red Cell Distribution Width 15.5 % Platelet Count 134 TH/MM3 Mean Platelet Volume 11.4 FL Neutrophils (%) (Auto) 92.2 % Lymphocytes (%) (Auto) 5.7 % Monocytes (%) (Auto) 1.9 % Eosinophils (%) (Auto) 0.0 % Basophils (%) (Auto) 0.2 % Neutrophils # (Auto) 16.0 TH/MM3 Lymphocytes # (Auto) 1.0 TH/MM3 Monocytes # (Auto) 0.3 TH/MM3 Eosinophils # (Auto) 0.0 TH/MM3 Basophils # (Auto) 0.0 TH/MM3 CBC Comment DIFF FINAL Differential Comment Sodium Level 155 MEQ/L Potassium Level 3.5 MEQ/L Chloride Level 113 MEQ/L Carbon Dioxide Level 34.8 MEQ/L Anion Gap 7 MEQ/L Blood Urea Nitrogen 39 MG/DL Creatinine 0.69 MG/DL Estimat Glomerular Filtration 117 ML/MIN Rate Random Glucose 217 MG/DL Calcium Level 8.5 MG/DL Phosphorus Level 2.7 MG/DL Magnesium Level 2.1 MG/DL Total Bilirubin 1.2 MG/DL Aspartate Amino Transf 31 U/L (AST/SGOT) Alanine Aminotransferase 63 U/L (ALT/SGPT) Alkaline Phosphatase 76 U/L Total Protein 6.6 GM/DL Albumin 2.6 GM/DL Objective Remarks GENERAL: No acute distress, confused, in restraints. SKIN: Warm and dry. No rash HEAD: Atraumatic. Normocephalic. EYES: Pupils equal and round about 3 mm bilaterally and reactive. No scleral icterus. No injection or drainage. ENT: No nasal bleeding or discharge. Mucous membranes pink and moist. NECK: Trachea midline. No JVD. Orotracheally intubated. Left IJ clean dry and intact CARDIOVASCULAR: RRR. S1, S2. No S4. Without murmur. RESPIRATORY: On high flow nasal cannula. Diminished breath sounds throughout. No rhonchi appreciated. No end expiratory wheeze. GASTROINTESTINAL: Abdomen slightly tender palpation. Normoactive bowel sounds. Incisional sutures intact without erythema or dehiscence. No drainage. MUSCULOSKELETAL: Extremities with trace extremity peripheral edema. No obvious deformities. NEUROLOGICAL: Alert but confused. Medications and IVs Current Medications Medications (Trade) Dose Ordered Sig/Alfred Route Start Time Stop Time Status Last Admin (NS Flush) 2 ml UNSCH PRN FLUSH 09/02/16 17:45 09/08/16 06:43 (NS Flush) 2 ml BID FLUSH 09/02/16 21:00 09/28/16 20:10 (Tylenol) 650 mg Q4H PRN PO 09/02/16 17:45 (Zofran Inj) 4 mg Q6H PRN IVP 09/02/16 17:45 09/08/16 09:04 (Milk Of Magnjack Liq) 30 ml Q12H PRN PO 09/02/16 17:45 (Lovenox Inj) 40 mg Q24H SQ 09/02/16 17:45 09/29/16 16:19 (Narcan Inj) 0.4 mg UNSCH PRN IV 09/02/16 17:45 (Prinivil) 10 mg DAILY PO 09/03/16 09:00 09/29/16 09:04 (Morphine Inj) 2 mg Q3H PRN IV PUSH 09/04/16 14:00 (Morphine Inj) 4 mg Q3H PRN IV PUSH 09/04/16 13:30 09/22/16 01:49 (Flonase Anuj Spr) 1 spray BID NASAL 09/05/16 12:00 09/29/16 09:04 (Claritin) 10 mg DAILY PO 09/06/16 09:00 09/29/16 09:04 (Mucinex Er) 600 mg BID PO 09/06/16 11:00 09/29/16 09:04 (Protonix Inj) 40 mg Q12H IV PUSH 09/09/16 21:00 09/29/16 09:03 Chlorhexidine Gluconate 15 ml 15 ml BID@08,20 MT 09/11/16 08:00 09/29/16 08:57 Potassium Chloride 100 ml @ 50 mls/hr Q2H PRN IV 09/13/16 11:45 09/22/16 06:11 Potassium Chloride 100 ml @ 50 mls/hr Q2H PRN IV 09/13/16 11:45 Potassium Chloride 100 ml @ 25 mls/hr UNSCH PRN IV 09/13/16 11:45 09/24/16 05:55 Potassium Chloride 100 ml @ 50 mls/hr Q2H PRN IV 09/13/16 11:45 09/15/16 19:24 (Magnesium Sulfate Inj/NS Inj) 100 ml @ 50 mls/hr UNSCH PRN IV 09/13/16 11:45 Magnesium Oxide 800 mg 800 mg UNSCH PRN PO 09/13/16 11:45 (Magnesium Sulfate Inj/NS Inj) 100 ml @ 50 mls/hr UNSCH PRN IV 09/13/16 11:45 Potassium Phosphate 2000 mg 2,000 mg Q4H PRN PO 09/13/16 11:45 09/21/16 12:46 (Sodium Phosphate Inj/NS 250 ml Inj) 250 ml @ 42 mls/hr UNSCH PRN IV 09/13/16 11:45 09/18/16 07:18 Potassium Phosphate 2000 mg 2,000 mg UNSCH PRN PO/TUBE 09/13/16 11:45 Potassium Phosphate 30 mmol/ Sodium Chloride 260 ml @ 42 mls/hr UNSCH PRN IV 09/13/16 11:45 09/25/16 09:37 (Levophed-Dextrose Drip) 250 ml @ 0 mls/hr TITRATE IV 09/16/16 13:45 09/17/16 06:50 (Brethine Inj) 1 mg UNSCH PRN SQ 09/16/16 13:45 (NS Flush) DAILY IVF 09/17/16 09:00 09/29/16 08:56 (NS Flush) UNSCH PRN IVF 09/16/16 15:15 (Levemir Inj) 8 units Q12HR SQ 09/27/16 21:00 09/29/16 09:04 (D50w (Vial) Inj) 25 ml UNSCH PRN IV PUSH 09/27/16 16:30 (Glucagon Inj) 1 mg UNSCH PRN OTHER 09/27/16 16:30 (Apresoline Inj) 10 mg Q1HR PRN IV PUSH 09/27/16 16:30 09/28/16 16:07 (Trandate Inj) 10 mg Q1HR PRN IV PUSH 09/27/16 16:30 (Nitroglycerin 2% Oint) 2 inch Q6HR PRN TOPICAL 09/27/16 16:30 09/28/16 17:22 (SoluMEDROL INJ) 60 mg Q12H IV PUSH 09/28/16 17:00 09/29/16 16:19 (SEROquel) 25 mg DAILY PO 09/29/16 09:00 09/29/16 09:04 (SEROquel) 50 mg HS PO 09/28/16 21:00 09/28/16 20:10 (Pill Splitter) 1 ea UNSCH PRN OTHER 09/28/16 12:00 A/P Assessment and Plan 1. Toxic Metabolic Encephalopathy, Acetaminophen for fever, on Morphine for Pain , was on Precedex drip Off Fentanyl drip. on Seroquel 25 mg BID. 2. Atrial Fibrillation with RVR nos Normal sinus rhythm, Amiodarone drip discontinued one week ago. 3. Hypertension controlled off Vasopressors. on Lisinopril, 4. Hyperlipidemia 5. History of Splenic Artery stenting secondary to Aneurysm. 6. Acute Hypoxemic Respiratory Failure/COPD/Pleural Effusions status post Bilateral Chest tube placement Extubated 09/21, requiring BiPAP as needed, on high flow oxygen with intermittent BiPAP, On Solu-Medrol since 09/21 Diuresis, Bronchodilator, Mucolytic and incentive spirometry. water quality specialist Doctor Sergio following, Right chest tube removed 09/18 and Left chest tube removed 09/19. 7. Right midlung pulmonary nodule [address] follow up recommended six months. 8. Chronic Pancreatitis/Abdominal Ascites, EGD showed chronic gastritis inflammation, Colonoscopy incomplete splenic flexure normal mucosa, internal Hemorrhoids, TPN stopped 09/22 patient tolerating tube feedings, GI prophylaxis with Protonix, status post Exploratory Laparotomy and Lysis of adhesions. 9. DM II on sliding scale, Levemir, 10. Right Cephalic/basilic superficial thrombus on Lovenox for DVT prophylaxis. 11. Septic Shock/Peritonitis specialist following and stopped antibiotics since 09/22 PT and OT following. Follow laboratory in am tomorrow, re start Bronchodilator and mucolytic. Prophylaxis - GI - Protonix IV twice a day - DVT - SCD/Lovenox Mark Mckenzie MD Sep 29, 2016 16:41
--- NOTE | 2016-09-29 21:11 | HHI.PR ---
Subjective Remarks %, maintans sat61 YOWM with Pancreatitis,COPD,Nicotine use had Exp Lap Extubated w Tolerates PO Weaned to NC Objective Vital Signs Vital Signs Date Time Temp Pulse Resp B/P Pulse Ox O2 Delivery O2 Flow Rate FiO2 09/29/16 19:36 93 Nasal Cannula 3.00 09/29/16 19:00 97 Nasal Cannula 3.00 09/29/16 18:30 99 Nasal Cannula 3.00 09/29/16 18:00 76 09/29/16 16:15 95 Nasal Cannula 4.00 09/29/16 16:11 93 Nasal Cannula 4.00 09/29/16 16:00 98.4 83 23 133/66 91 09/29/16 16:00 83 09/29/16 14:00 87 09/29/16 12:11 97 High Flow Nasal Cannula 25.00 40 09/29/16 12:00 78 09/29/16 12:00 98.5 78 26 140/76 96 09/29/16 10:00 82 09/29/16 08:00 72 09/29/16 08:00 98 Nasal Cannula 40 09/29/16 08:00 98.5 72 21 153/78 98 09/29/16 06:00 91 09/29/16 04:00 98.5 84 21 148/86 100 09/29/16 04:00 84 09/29/16 03:47 94 High Flow Nasal Cannula 25.00 40 09/29/16 02:00 93 09/29/16 00:00 98.1 93 21 103/58 97 09/29/16 00:00 93 09/28/16 22:00 99 I/O 09/28/16 09/28/16 09/28/16 09/29/16 09/29/16 09/29/16 07:00 15:00 23:00 07:00 15:00 23:00 Intake Total 668 ml 623 ml 245 ml 650 ml 515 ml Output Total 810 ml 685 ml 650 ml 550 ml 1100 ml Balance -142 ml -62 ml -405 ml 100 ml -585 ml Intake Oral 120 ml 90 ml IV Total 335 ml 356 ml 31 ml 326 ml 395 ml Tube Feeding 273 ml 87 ml 94 ml 264 ml Tube Irrigant 60 ml 60 ml 120 ml 60 ml Other 30 ml Output Urine Total 800 ml 675 ml 650 ml 550 ml 1100 ml Tube Feeding Residual Discard 0 ml Drainage Total 10 ml 10 ml # Bowel Movements 1 1 1 2 0 2 Result Diagram: 09/28/16 0346 09/28/16 0346 Objective Remarks GENERAL: MBMN WM , on BIPAP SKIN: Warm and dry. HEAD: Normocephalic. EYES: No scleral icterus. No injection or drainage. NECK: Supple, trachea midline. No JVD or lymphadenopathy. CARDIOVASCULAR: Regular rate and rhythm without murmurs, gallops, or rubs. RESPIRATORY: Breath sounds equal bilaterally. No accessory muscle use. GASTROINTESTINAL: Abdomen soft, non-tender, MUSCULOSKELETAL: No cyanosis, or edema. BACK: Nontender without obvious deformity. No CVA tenderness. A/P Assessment and Plan RF, s/p Extubation Hypoxia Hypotension-resolved S/P Exp Lap COPD Nicotine use DM PLAN: Supplement 02 to keep sat >88% Broad spectrum Abx Aerosol nebs. TF Encourage Velasquez Kumar MD Sep 29, 2016 21:11
[2016-09-29] MEDS: QUEtiapine FUMARATE 100 MG TAB PO SCH (21:42)
[2016-09-30] VITALS (13 sets, daily range): BP systolic 111–154; BP diastolic 62–76; PULSE 70–104; RESP 19–24; TEMP 98.1–99; O2SAT 90–95
[2016-09-30] MEDS: RESP: ALBUTEROL 2.5 MG/IPRATROPIUM 0.5 MG NEB (SCH) NEB ×4 (02:57→19:38)
[2016-09-30] MEDS: methylPREDNISolone SOD SUCC 125 MG/2 ML VIAL IV PUSH SCH ×2 (05:29→16:21)
[2016-09-30] MEDS: INSULIN NovoLIN REGULAR SUPPLEMENTAL SCALE SQ SCH ×4 (06:31→20:56)
[2016-09-30] MEDS: CHLORHEXIDINE 0.12% (ORAL KIT) 15 ML CUP MT SCH ×2 (08:00→20:00)
[2016-09-30] MEDS: RESP: BUDESONIDE 0.5 MG/2 ML NEB NEB SCH ×2 (09:04→19:38)
[2016-09-30] MEDS: INSULIN DETEMIR 100 UNITS/ML VIAL SQ SCH ×2 (09:09→20:55)
[2016-09-30] MEDS: PANTOPRAZOLE SODIUM 40 MG VIAL IV PUSH SCH ×2 (09:09→20:56)
[2016-09-30] MEDS: LISINOPRIL 10 MG TAB PO SCH (09:10)
[2016-09-30] MEDS: guaiFENesin E.R. 600 MG TAB PO SCH ×2 (09:10→20:55)
[2016-09-30] MEDS: LORATADINE 10 MG TAB PO SCH (09:10)
[2016-09-30] MEDS: SODIUM CHLORIDE 0.9% FLUSH 10 ML FLUSH IVF SCH (09:15)
[2016-09-30] MEDS: FLUTICASONE PROPIONATE 50 MCG/ACT 16 GM NASAL SPRAY NASAL SCH ×2 (09:15→20:56)
[2016-09-30] MEDS: SODIUM CHLORIDE 0.9% FLUSH 5 ML FLUSH FLUSH SCH ×2 (09:15→20:56)
[2016-09-30] MEDS: QUEtiapine FUMARATE 25 MG TAB PO SCH (09:24)
--- NOTE | 2016-09-30 10:28 | HHI.IDPN ---
Subjective Subjective Remarks Notes reviewed Clinically doing well from ID standpoint has been off Abx On nasal O2 sats good Temps better Antibiotics None Past Medical History Reviewed Allergies: Coded Allergies: Penicillin (Verified Allergy, Severe, SWELLING, 09/11/16) has tolerated Cephalosporins in previous admissions *MDRO Multi-Drug Resistant Organism (Verified Adverse Reaction, Unknown, ) Hx MRSA Sputum 2006, Wounds 2003 MRSA PCR Screen negative 11/25/14 & 09/10/15. Cleared per Infection Control. Patient does not require isolation for hx of MRSA prior to 09/10/15. Objective . Vital Signs Date Time Temp Pulse Resp B/P Pulse Ox O2 Delivery O2 Flow Rate FiO2 09/30/16 09:05 95 Nasal Cannula 2.00 09/30/16 06:00 72 09/30/16 04:00 98.2 90 24 111/63 93 09/30/16 04:00 90 09/30/16 02:00 70 09/30/16 00:00 99.0 74 19 121/76 90 09/30/16 00:00 74 09/29/16 22:00 72 09/29/16 20:00 77 09/29/16 20:00 98.7 77 24 132/68 96 09/29/16 19:36 93 Nasal Cannula 3.00 09/29/16 19:00 97 Nasal Cannula 3.00 09/29/16 18:30 99 Nasal Cannula 3.00 09/29/16 18:00 76 09/29/16 16:15 95 Nasal Cannula 4.00 09/29/16 16:11 93 Nasal Cannula 4.00 09/29/16 16:00 98.4 83 23 133/66 91 09/29/16 16:00 83 09/29/16 14:00 87 09/29/16 12:11 97 High Flow Nasal Cannula 25.00 40 09/29/16 12:00 78 09/29/16 12:00 98.5 78 26 140/76 96 09/29/16 09/29/16 09/30/16 15:00 23:00 07:00 Intake Total 515 ml 191 ml 328 ml Output Total 1100 ml 775 ml 575 ml Balance -585 ml -584 ml -247 ml Intake Oral 90 ml 100 ml IV Total 395 ml Tube Feeding 131 ml 228 ml Other 30 ml 60 ml Output Urine Total 1100 ml 775 ml 575 ml Tube Feeding Residual Discard 0 ml # Bowel Movements 0 [address] 09/25/16 0000 Signed Impressions: Service Date/Time: Sunday, September 25, 2016 17:09 - CONCLUSION: Symmetric bilateral lower lobe abnormalities including segmental consolidation and 3 cm pleural effusions. Severe upper lobe emphysema. There is also a 5 mm solitary pulmonary nodule in the right midlung. Anibal Álvarez MD Chest X-Ray 09/21/16 0000 Signed Impressions: Service Date/Time: Wednesday, September 21, 2016 10:17 - CONCLUSION: New mild bilateral lower lung zone hazy opacity suggesting mild pulmonary edema. There is also atelectasis at the inferior left lung base. Possible small pleural effusions. Filiberto Hall MD Chest X-Ray 09/19/16 1300 Signed Impressions: Service Date/Time: Monday, September 19, 2016 13:35 - CONCLUSION: Improved lung exam. Question presence of endotracheal tube with the tip at the level of the clavicles . Carrie Olvera MD Chest X-Ray 09/17/16 0600 Signed Impressions: Service Date/Time: Saturday, September 17, 2016 05:37 - CONCLUSION: 1. No pneumothoraces. 2. Unchanged bibasilar consolidation. Anibal Malhotra Jr., MD Chest X-Ray 09/16/16 1504 Signed Impressions: Service Date/Time: August 15:12 - CONCLUSION: Central line placement without pneumothorax. Gumaro Correa MD Chest X-Ray 09/16/16 0600 Signed Impressions: Service Date/Time: August 02:16 - CONCLUSION: No significant change has occurred. John Payne MD Chest X-Ray 09/14/16 1200 Signed Impressions: Service Date/Time: Wednesday, September 14, 2016 12:25 - CONCLUSION: 1. No pneumothorax. 2. Multiple tubes and lines are stable. 3. Scattered patchy infiltrates bilaterally. Jostin Crow MD Chest X-Ray 09/12/16 0000 Signed Impressions: Service Date/Time: Monday, September 12, 2016 07:39 - CONCLUSION: Bibasilar airspace disease and bilateral pleural effusions larger on the right. Zechariah Sims MD Abdomen X-Ray 09/09/16 0600 Signed Impressions: Service Date/Time: August 04:54 - CONCLUSION: No significant interval change. Persistent upper mid abdomen small bowel dilatation and wall thickening. Filiberto Hall MD Abdomen/Pelvis CT 09/08/16 0000 Signed Impressions: Service Date/Time: Thursday, September 08, 2016 23:45 - CONCLUSION: 1. Marked inflammatory changes of left upper quadrant with severe mesenteric edema and adjacent short segment circumferential wall thickening of mid small bowel and adjacent distal transverse colon. Possible 4 cm abscess adjacent to the mid small bowel wall. Evaluation of intraluminal versus extraluminal fluid in this region is limited as intraluminal contrast is not present in this loop. A delayed scan may be beneficial for clarification. Differential diagnosis includes inflammatory bowel disease and infection. Moderate amount of free fluid similar to prior study. No evidence of free air. 2. Chronic pancreatitis. Filiberto Hall MD ADDENDUM: Delayed images show contrast filling the thickened loops of left upper quadrant small bowel. No evidence of abscess. Findings were discussed with Dr. Henriquez. Filiberto Hall MD Physical Exam GENERAL: Awake, on nasal O2 SKIN: Cool and dry. No generalized rash HEENT: Rickreall conjunctivae. No scleral icterus. Moist mucosa. NECK: Supple, nontender, no meningeal signs. CARDIOVASCULAR: Regular rate and rhythm without murmurs, gallops, or rubs. RESPIRATORY: Decreased BS bases GASTROINTESTINAL: Abdomen soft, not tender. Bowel sounds (+). Not distended. Midline incision, dry, no erythema. MUSCULOSKELETAL: Extremities without clubbing. Edema better, Feet cool with cyanosis NEUROLOGICAL: Responding PSYCH: Cooperative LINE: No evidence of infection : Tavarez in place, urine looks clear Assessment & Plan Remarks IMPRESSION Sepsis with shock, S/P exp lap with lysis of adhesions. - off pressors - resolved ? Spillage peritonitis. - ?shock due to other factors - C/S ok so far - better - abdomen exam benign Respiratory failure, extubated 09/21 - fluid, PNA, ARDS - doing well on nasal o2 S/P exp lap, LUCY, for SBO Allergy to PCN, has tolerated Cephalosporins in the past Leukocytosis, improving Intermittent low grade temps, better RECOMMENDATION Monitor off Abx Monitor progress Monitor temps Clinically doing well from ID standpoint I will be available prn Please reconsult if with any new ID issue or question Tati Hansen MD Sep 30, 2016 10:28
--- NOTE | 2016-09-30 14:56 | HHI.PR ---
Subjective Remarks Follow-up for abdominal pain and respiratory distress Patient stated breathing has improved. He is tolerating by mouth intake. Patient is asking for a pitcher of water at his bedside so he won't bother the nurse. Per patient's nurse patient has some diarrhea which was sent off to see patient C. difficile. Patient denied any abdominal pain and he remains afebrile. Objective Vitals Vital Signs Date Time Temp Pulse Resp B/P Pulse Ox O2 Delivery O2 Flow Rate FiO2 09/30/16 14:00 90 09/30/16 12:00 98.8 84 21 118/62 93 09/30/16 12:00 84 09/30/16 10:00 104 09/30/16 09:05 95 Nasal Cannula 2.00 09/30/16 08:00 98.1 76 24 154/74 94 09/30/16 08:00 74 09/30/16 07:00 93 Nasal Cannula 2.00 09/30/16 06:00 72 09/30/16 04:00 98.2 90 24 111/63 93 09/30/16 04:00 90 09/30/16 02:00 70 09/30/16 00:00 99.0 74 19 121/76 90 09/30/16 00:00 74 09/29/16 22:00 72 09/29/16 20:00 77 09/29/16 20:00 98.7 77 24 132/68 96 09/29/16 19:36 93 Nasal Cannula 3.00 09/29/16 19:00 97 Nasal Cannula 3.00 09/29/16 18:30 99 Nasal Cannula 3.00 09/29/16 18:00 76 09/29/16 16:15 95 Nasal Cannula 4.00 09/29/16 16:11 93 Nasal Cannula 4.00 09/29/16 16:00 98.4 83 23 133/66 91 09/29/16 16:00 83 I/O 09/29/16 09/29/16 09/29/16 09/30/16 09/30/16 09/30/16 07:00 15:00 23:00 07:00 15:00 23:00 Intake Total 650 ml 515 ml 191 ml 328 ml 420 ml Output Total 550 ml 1100 ml 775 ml 575 ml 550 ml Balance 100 ml -585 ml -584 ml -247 ml -130 ml Intake Oral 90 ml 100 ml 420 ml IV Total 326 ml 395 ml Tube Feeding 264 ml 131 ml 228 ml Tube Irrigant 60 ml Other 30 ml 60 ml Output Urine Total 550 ml 1100 ml 775 ml 575 ml 550 ml Tube Feeding Residual Discard 0 ml # Voids 1 # Bowel Movements 2 0 3 1 Result Diagram: 09/28/16 0346 09/28/16 0346 Objective Remarks GENERAL: in NAD with NG tube in place. CARDIOVASCULAR: Regular rate and rhythm without murmurs, gallops, or rubs. RESPIRATORY: No accessory muscle use. Clear to auscultation bilaterally GASTROINTESTINAL: left lower quadrant TTP, + distended. no peritoneal signs. MUSCULOSKELETAL: No cyanosis, or edema. BACK: Nontender without obvious deformity. No CVA tenderness. Medications and IVs Current Medications Acetaminophen/ Hydrocodone Bitart ([place] 5-325 Mg) 1 tab ONCE ONCE PO ; Start 09/02/16 at 13:30; Stop 09/02/16 at 13:31; Status DC Ondansetron HCl (Zofran Odt) 4 mg ONCE ONCE PO Last administered on 09/02/16 13:26; Start 09/02/16 at 13:30; Stop 09/02/16 at 13:31; Status DC Ketorolac Tromethamine (Toradol Inj) 60 mg ONCE ONCE IM Last administered on 13:37; Start 09/02/16 at 13:45; Stop 09/02/16 at 13:46; Status DC Diatrizoate Meglum/ Diatrizoate Sod ( Gastroview Liq) 18 ml STK-MED ONCE .ROUTE Last administered on 09/02/16 13:37; Start 09/02/16 at 13:35; Stop at 13:36; Status DC Ondansetron HCl (Zofran Inj) 4 mg ONCE ONCE IV PUSH ; Start 09/02/16 at 15:15; Stop 09/02/16 at 15:15; Status DC Morphine Sulfate (Morphine Inj) 4 mg ONCE ONCE IV PUSH Last administered on 15:20; Start 09/02/16 at 15:15; Stop 09/02/16 at 15:16; Status DC Morphine Sulfate (Morphine Inj) 4 mg ONCE ONCE IV PUSH ; Start 09/02/16 at 15:15 ; Stop 09/02/16 at 15:15; Status DC Ondansetron HCl (Zofran Inj) 4 mg ONCE ONCE IVP ; Start 09/02/16 at 15:15; Stop 09/02/16 at 15:15; Status DC IV Flush (NS Flush) 2 ml UNSCH PRN IVF FLUSH AFTER USING IV ACCESS Last administered on 09/02/16 15:20; Start 09/02/16 at 15:15; Stop 09/02/16 at 18:03; Status DC Iohexol 100 ml 100 ml STK-MED ONCE IV Last administered on 09/02/16 15:57; Start 09/02/16 at 15:57; Stop 09/02/16 at 15:58; Status DC Ciprofloxacin/ Dextrose 200 ml @ 200 mls/hr ONCE ONCE IV Last administered on 09/02/16 16:48; Start 09/02/16 at 16:45; Stop 09/02/16 at 17:44; Status DC Metronidazole 100 ml @ 100 mls/hr ONCE ONCE IV Last administered on 09/02/16 16:48; Start 09/02/16 at 16:45; Stop 09/02/16 at 17:44; Status DC Sodium Chloride (NS 1000 ml Inj) 1,000 ml @ 125 mls/hr Q8H IV Last administered on 09/10/16 16:00; Start 09/02/16 at 18:00; Stop 09/10/16 at 19:08 ; Status DC IV Flush (NS Flush) 2 ml UNSCH PRN FLUSH FLUSH AFTER USING IV ACCESS Last administered on 09/08/16 06:43; Start 09/02/16 at 17:45 IV Flush (NS Flush) 2 ml BID FLUSH Last administered on 09/30/16 09:15; Start 09/02/16 at 21:00 Acetaminophen (Tylenol) 650 mg Q4H PRN PO TEMP > 100.4; Start 09/02/16 at 17:45 Ondansetron HCl (Zofran Inj) 4 mg Q6H PRN IVP NAUSEA OR VOMITING Last administered on 09/08/16 09:04; Start 09/02/16 at 17:45 Magnesium Hydroxide (Milk Of Magnesia Liq) 30 ml Q12H PRN PO CONSTIPATION; Start 09/02/16 at 17:45 Enoxaparin Sodium (Lovenox Inj) 40 mg Q24H SQ Last administered on 09/29/16 16: 19; Start 09/02/16 at 17:45 Naloxone HCl 0.4 mg 0.4 mg UNSCH PRN IV SEE LABEL COMMENTS; Start 09/02/16 at 17 :45 Ciprofloxacin/ Dextrose 200 ml @ 200 mls/hr Q12H IV Last administered on 04:12; Start 09/03/16 at 04:00; Stop 09/11/16 at 11:35; Status DC Metronidazole (Flagyl 500 Mg Inj) 100 ml @ 100 mls/hr Q8H IV Last administered on 09/25/16 05:19; Start 09/02/16 at 23:00; Stop 09/25/16 at 11:50; Status DC Lisinopril (Prinivil) 10 mg DAILY PO Last administered on 09/30/16 09:10; Start 09/03/16 at 09:00 Dextrose (D50w (Vial) Inj) 25 ml UNSCH PRN IV PUSH HYPOGLYCEMIA-SEE COMMENTS Last administered on 09/27/16 16:05; Start 09/02/16 at 18:45; Stop 09/27/16 at 16: 21; Status DC Glucagon (Glucagon Inj) 1 mg UNSCH PRN OTHER HYPOGLYCEMIA-SEE COMMENTS; Start 09/02/16 at 18:45; Stop 09/27/16 at 16:21; Status DC Insulin Aspart (NovoLOG SUPPLEMENTAL SCALE) 1 ACHS SLIDING SCALE SQ Last administered on 09/14/16 22:43; Start 09/02/16 at 21:00; Stop 09/15/16 at 06:27 ; Status DC Morphine Sulfate (Morphine Inj) 2 mg Q3H PRN IV PUSH PAIN 1-5; Start 09/03/16 at 00:30; Stop 09/04/16 at 11:01; Status DC Morphine Sulfate (Morphine Inj) 4 mg Q3H PRN IV PUSH PAIN 6-10 Last administered on 09/04/16 09:49; Start 09/03/16 at 00:30; Stop 09/04/16 at 11:01 ; Status DC Ketorolac Tromethamine (Toradol Inj) 30 mg ONCE ONCE IV PUSH Last administered on 09/03/16 03:50; Start 09/03/16 at 02:15; Stop 09/03/16 at 02:16 ; Status DC Iohexol (Omnipaque 350 Inj) 76 ml STK-MED ONCE IV Last administered on 09:15; Start 09/04/16 at 09:15; Stop 09/04/16 at 09:16; Status DC Hydromorphone HCl (Dilaudid Pf Inj) 1 mg Q3HR PRN IV PUSH PAIN SCALE 6 TO 10 Last administered on 09/04/16 11:55; Start 09/04/16 at 12:00; Stop 09/04/16 at 13:18; Status DC Morphine Sulfate (Morphine Inj) 2 mg Q3H PRN IV PUSH PAIN SCALE 1 TO 6; Start 09/04/16 at 14:00 Morphine Sulfate (Morphine Inj) 4 mg Q3H PRN IV PUSH PAIN SCALE 7 TO 10 Last administered on 09/22/16 01:49; Start 09/04/16 at 13:30 Polyethylene Glycol/ Electrolytes (Colyte Liq) 4,000 ml ONCE ONCE PO Last administered on 09/05/16 16:40; Start 09/05/16 at 16:00; Stop 09/05/16 at 16:01 ; Status DC Promethazine HCl (Phenergan Supp) 25 mg Q6H PRN RECTAL NAUSEA OR VOMITING Last administered on 09/04/16 17:06; Start 09/04/16 at 16:45; Stop 09/05/16 at 21:00 ; Status DC Fluticasone Propionate (Flonase Anuj Spr) 1 spray BID NASAL Last administered on 09/30/16 09:15; Start 09/05/16 at 12:00 Loratadine (Claritin) 10 mg DAILY PO Last administered on 09/30/16 09:10; Start 09/06/16 at 09:00 Promethazine HCl 25 mg 25 mg ONCE ONCE PO Last administered on 09/05/16 22:04 ; Start 09/05/16 at 21:00; Stop 09/05/16 at 21:22; Status DC Azithromycin/ Sodium Chloride (Zithromax Inj/ NS 250 ml Inj) 250 ml @ 250 mls/ hr Q24H IV Last administered on 09/07/16 11:29; Start 09/06/16 at 11:00; Stop 09/07/16 at 14:50; Status DC Guaifenesin (Mucinex Er) 600 mg BID PO Last administered on 09/29/16 09:04; Start 09/06/16 at 11:00; Stop 09/29/16 at 18:15; Status DC Magnesium Citrate (Citroma Liq) 300 ml ONCE ONCE PO Last administered on 14:54; Start 09/06/16 at 14:30; Stop 09/06/16 at 14:31; Status DC Magnesium Citrate (Citroma Liq) 300 ml ONCE ONCE PO ; Start 09/06/16 at 18:00; Stop 09/06/16 at 18:01; Status DC Bisacodyl (Dulcolax Ec) 10 mg DAILY@ PO Last administered on 09/06/16 21: 00; Start 09/06/16 at 18:00; Stop 09/06/16 at 21:01; Status DC Etomidate (Amidate Inj) 20 mg STK-MED ONCE IV PUSH ; Start 09/06/16 at 13:56; Stop 09/06/16 at 14:33; Status DC Ketamine HCl (Ketalar Inj) 500 mg STK-MED ONCE .ROUTE ; Start 09/06/16 at 14:50 ; Stop 09/06/16 at 14:51; Status DC Simethicone (Mylicon Chew) 80 mg ONCE ONCE CHEW Last administered on 22:23; Start 09/06/16 at 19:45; Stop 09/06/16 at 19:46; Status DC Albuterol/ Ipratropium (Duoneb Neb) 1 ampule Q6HR NEB NEB Last administered on 09/10/16 07:34; Start 09/06/16 at 22:00; Stop 09/10/16 at 22:00; Status DC Magnesium Citrate (Citroma Liq) 300 ml ONCE ONCE PO ; Start 09/08/16 at 12:00; Stop 09/08/16 at 12:01; Status DC Magnesium Citrate (Citroma Liq) 300 ml ONCE ONCE PO ; Start 09/08/16 at 18:00; Stop 09/08/16 at 18:01; Status DC Bisacodyl (Dulcolax Ec) 10 mg ONCE ONCE PO ; Start 09/08/16 at 18:00; Stop at 18:01; Status DC Bisacodyl 10 mg 10 mg ONCE ONCE PO ; Start 09/08/16 at 21:00; Stop 09/08/16 at 21:01; Status DC Sodium Chloride (NS 1000 ml Inj) 1,000 ml @ 999 mls/hr BOLUS ONCE IV Last administered on 09/08/16 13:00; Start 09/08/16 at 10:45; Stop 09/08/16 at 11:45 ; Status DC Albuterol Sulfate 1.25 mg 1.25 mg Q6HR NEB NEB Last administered on 09/12/16 09:54; Start 09/08/16 at 16:00; Stop 09/12/16 at 16:00; Status DC Sodium Chloride 500 ml @ 500 mls/hr BOLUS ONCE IV Last administered on 17:45; Start 09/08/16 at 17:30; Stop 09/08/16 at 18:29; Status DC Pantoprazole Sodium/Sodium Chloride (Protonix Inj/NS Inj) 100 ml @ 10 mls/hr CONTINUOUS IV Last administered on 09/09/16 07:29; Start 09/08/16 at 20:00; Stop 09/09/16 at 08:31; Status DC Diatrizoate Meglum/ Diatrizoate Sod 18 ml 18 ml ONCE ONCE PO Last administered on 09/08/16 21:34; Start 09/08/16 at 21:15; Stop 09/08/16 at 21:16 ; Status DC Sodium Chloride (NS 500 ml Inj) 500 ml @ 500 mls/hr BOLUS ONCE IV Last administered on 09/09/16 02:44; Start 09/09/16 at 02:45; Stop 09/09/16 at 03:44 ; Status DC Pantoprazole Sodium 40 mg 40 mg Q12H IV PUSH Last administered on 09/30/16 09: 09; Start 09/09/16 at 21:00 Sodium Chloride 500 ml @ 500 mls/hr BOLUS ONCE IV Last administered on 09:00; Start 09/09/16 at 09:00; Stop 09/09/16 at 09:59; Status DC Potassium Chloride 100 ml @ 50 mls/hr BOLUS ONCE IV Last administered on 09/10 09:40; Start 09/10/16 at 08:00; Stop 09/10/16 at 09:59; Status DC Clindamycin Phosphate/Sodium Chloride (Cleocin Inj/NS Inj) 104 ml @ 208 mls/hr Q8H IV Last administered on 09/11/16 06:56; Start 09/10/16 at 13:00; Stop at 11:35; Status DC Midazolam HCl 2 mg 2 mg STK-MED ONCE .ROUTE ; Start 09/10/16 at 19:03; Stop at 19:04; Status DC Lactated Ringer's 1,000 ml @ 125 mls/hr Q8H IV Last administered on 09/12/16 04:00; Start 09/10/16 at 20:00; Stop 09/12/16 at 18:36; Status DC Fentanyl Citrate 250 ml @ 0 mls/hr TITRATE IV Last administered on 09/20/16 21 :04; Start 09/10/16 at 19:45; Stop 09/25/16 at 11:50; Status DC Midazolam HCl (Versed Inj) 100 ml @ 0 mls/hr TITRATE IV Last administered on 07:16; Start 09/10/16 at 20:00; Stop 09/15/16 at 13:04; Status DC Albumin Human 25 gm 25 gm NOW ONCE IV Last administered on 09/10/16 21:15; Start 09/10/16 at 20:00; Stop 09/10/16 at 20:01; Status DC Norepinephrine Bitartrate 250 ml @ As Directed STK-MED ONCE IV ; Start at 19:45; Stop 09/10/16 at 19:46; Status DC Sodium Chloride 1,000 ml @ 999 mls/hr BOLUS ONCE IV Last administered on 09/10 21:16; Start 09/10/16 at 20:00; Stop 09/10/16 at 21:00; Status DC Norepinephrine Bitartrate (Levophed-Dextrose Drip) 250 ml @ 0 mls/hr TITRATE IV Last administered on 09/11/16 12:30; Start 09/10/16 at 20:00; Stop 09/11/16 at 23:56; Status DC Terbutaline Sulfate (Brethine Inj) 1 mg UNSCH PRN SQ For Extravasation; Start 09/10/16 at 20:00; Stop 09/16/16 at 13:48; Status DC Etomidate (Amidate Inj) 20 mg STK-MED ONCE .ROUTE ; Start 09/10/16 at 20:04; Stop 09/10/16 at 20:05; Status DC Fentanyl Citrate 200 mcg 200 mcg STK-MED ONCE .ROUTE ; Start 09/10/16 at 20:06; Stop 09/10/16 at 20:07; Status DC Sodium Chloride (NS 1000 ml Inj) 1,000 ml @ 0 mls/hr NOW ONCE IV Last administered on 09/10/16 21:17; Start 09/10/16 at 21:00; Stop 09/10/16 at 21:01 ; Status DC Etomidate (Amidate Inj) 25 mg NOW ONCE IV PUSH Last administered on 09/10/16 20:10; Start 09/10/16 at 21:15; Stop 09/10/16 at 21:16; Status DC Rocuronium [place] (Zemuron Inj) 50 mg NOW ONCE IV Last administered on 20:10; Start 09/10/16 at 21:15; Stop 09/10/16 at 21:16; Status DC Chlorhexidine Gluconate 15 ml 15 ml BID@08,20 MT Last administered on 09/29/16 20:00; Start 09/11/16 at 08:00 Sodium Chloride 1,000 ml @ 0 mls/hr BOLUS ONCE IV Last administered on 00:00; Start 09/10/16 at 22:45; Stop 09/10/16 at 22:46; Status DC Parenteral Electrolytes 1,000 ml @ 500 mls/hr Q2H IV Last administered on 09/11 01:53; Start 09/11/16 at 00:00; Stop 09/11/16 at 02:00; Status DC Sodium Chloride (NS 1000 ml Inj) 1,000 ml @ 0 mls/hr BOLUS ONCE IV Last administered on 09/11/16 06:56; Start 09/11/16 at 06:00; Stop 09/11/16 at 06:01 ; Status DC Albumin Human 25 gm 25 gm STK-MED ONCE .ROUTE Last administered on 09/11/16 10 :06; Start 09/11/16 at 10:06; Stop 09/11/16 at 10:07; Status DC Calcium Chloride/ Sodium Chloride (Calcium Chloride Inj/NS Inj) 120 ml @ 120 mls/hr ONCE ONCE IV Last administered on 09/11/16 11:08; Start 09/11/16 at 12 :00; Stop 09/11/16 at 12:59; Status DC Albumin Human (Albumin 5% Inj) 25 gm STK-MED ONCE .ROUTE Last administered on 10:40; Start 09/11/16 at 10:40; Stop 09/11/16 at 10:41; Status DC Albumin Human 12.5 gm 12.5 gm STK-MED ONCE IV Last administered on 09/11/16 11 :00; Start 09/11/16 at 10:42; Stop 09/11/16 at 10:43; Status DC Cefepime HCl 2000 mg/Sodium Chloride 100 ml @ 200 mls/hr Q8H IV Last administered on 09/22/16 04:15; Start 09/11/16 at 13:00; Stop 09/22/16 at 09:51 ; Status DC Vancomycin HCl 1750 mg/Sodium Chloride 517.5 ml @ 258.75 mls/ hr ONCE ONCE IV Last administered on 09/11/16 13:30; Start 09/11/16 at 12:00; Stop 09/11/16 at 13:59; Status DC Pharmacy Profile Note 0 ml @ 0 mls/hr UNSCH OTHER ; Start 09/11/16 at 11:45; Stop 09/13/16 at 13:04; Status DC Vancomycin HCl/ Sodium Chloride (Vancomycin Inj/ NS 500 ml Inj) 517.5 ml @ 258.75 mls/ hr Q12H IV Last administered on 09/13/16 00:11; Start 09/12/16 at 00:00; Stop 09/13/16 at 12:47; Status DC Miscellaneous Information SPECIFIC LAB TO BE HAI... ONCE ONCE XX Last administered on 09/13/16 11:25; Start 09/13/16 at 11:45; Stop 09/13/16 at 11:46 ; Status DC Milrinone Lactate 20 mg/Sodium Chloride 100 ml @ 8.12 mls/hr [id number] IV Last administered on 09/17/16 22:23; Start 09/11/16 at 17:00; Stop 09/18/16 at 17:19 ; Status DC Vasopressin/ Dextrose (Pitressin Inj/ D5W 100 ml Inj) 100 ml @ 1.5 mls/hr Q24H IV Last administered on 09/12/16 17:00; Start 09/11/16 at 17:00; Stop at 06:27; Status DC Hydrocortisone Sodium Succinate 50 mg 50 mg Q6HR IV PUSH Last administered on 12:00; Start 09/11/16 at 18:00; Stop 09/15/16 at 17:07; Status DC Norepinephrine Bitartrate/ Dextrose (Levophed Inj/ D5W Inj) 266 ml @ 0 mls/hr TITRATE IV Last administered on 09/13/16 20:30; Start 09/11/16 at 23:45; Stop 09/16/16 at 13:46; Status DC Albumin Human (Albumin 5% Inj) 12.5 gm STK-MED ONCE IV Last administered on 00:21; Start 09/12/16 at 00:21; Stop 09/12/16 at 00:22; Status DC Albumin Human (Albumin 5% Inj) 12.5 gm STK-MED ONCE IV ; Start 09/12/16 at 00:22 ; Stop 09/12/16 at 00:23; Status DC Albumin Human (Albumin 5% Inj) 25 gm NOW ONCE IV Last administered on 00:30; Start 09/12/16 at 00:30; Stop 09/12/16 at 00:31; Status DC Sodium Bicarbonate (Sodium Bicarbonate 8.4% Inj) 100 meq STK-MED ONCE .ROUTE ; Start 09/12/16 at 02:56; Stop 09/12/16 at 02:57; Status DC Sodium Bicarbonate (Sodium Bicarbonate 8.4% Inj) 100 meq NOW ONCE IV Last administered on 09/12/16 03:03; Start 09/12/16 at 03:15; Stop 09/12/16 at 03:16 ; Status DC Sodium Bicarbonate 100 meq 100 meq ONCE ONCE IV PUSH ; Start 09/12/16 at 03:15 ; Stop 09/12/16 at 03:16; Status UNV Epinephrine HCl/ Dextrose (Adrenalin (1:1000) Inj/D5W Inj) 250 ml @ 0 mls/hr TITRATE IV Last administered on 09/12/16 08:54; Start 09/12/16 at 06:30; Stop 09/15/16 at 06:27; Status DC Epinephrine HCl (Adrenalin (1:1000) Inj) 1 mg STK-MED ONCE .ROUTE Last administered on 09/12/16 04:40; Start 09/12/16 at 04:40; Stop 09/12/16 at 04:41 ; Status DC Digoxin 0.25 mg 0.25 mg ONCE ONCE IV PUSH Last administered on 09/12/16 08:00 ; Start 09/12/16 at 08:00; Stop 09/12/16 at 08:01; Status DC Fluconazole/ Sodium Chloride 200 ml @ 100 mls/hr Q24H IV Last administered on 09/21/16 11:59; Start 09/12/16 at 12:00; Stop 09/22/16 at 09:51; Status DC Potassium Chloride 100 ml @ 25 mls/hr BOLUS ONCE IV Last administered on 09/12 15:30; Start 09/12/16 at 15:30; Stop 09/12/16 at 19:29; Status DC Magnesium Sulfate/ Dextrose 100 ml @ 100 mls/hr ONCE ONCE IV Last administered on 09/12/16 15:30; Start 09/12/16 at 15:30; Stop 09/12/16 at 16:29 ; Status DC Amiodarone HCl 150 mg/Dextrose 100 ml @ 600 mls/hr ONCE ONCE IV Last administered on 09/12/16 16:16; Start 09/12/16 at 15:30; Stop 09/12/16 at 15:39 ; Status DC Amiodarone HCl 900 mg/Dextrose 500 ml @ 0 mls/hr CONTINUOUS IV ; Start 09/12/16 at 15:30; Stop 09/12/16 at 15:30; Status DC Amiodarone HCl/ Dextrose (Cordarone Inj/ D5W ([place]) Inj) 250 ml @ 0 mls/hr CONTINUOUS IV Last administered on 09/15/16 16:47; Start 09/12/16 at 15:30; Stop 09/16/16 at 09:39; Status DC Furosemide (Lasix Inj) 40 mg STK-MED ONCE .ROUTE Last administered on 15:40; Start 09/12/16 at 15:40; Stop 09/12/16 at 15:41; Status DC Lidocaine HCl (Xylocaine 1% Inj (50 ml)) 50 ml STK-MED ONCE .ROUTE ; Start 09/12 at 16:45; Stop 09/12/16 at 16:46; Status DC Furosemide (Lasix Inj) 40 mg ONCE ONCE IV PUSH ; Start 09/12/16 at 18:45; Stop 09/12/16 at 18:46; Status DC Furosemide 60 mg 60 mg ONCE ONCE IV PUSH Last administered on 09/13/16 08:56 ; Start 09/13/16 at 08:30; Stop 09/13/16 at 08:31; Status DC Lactated Ringer's 1,000 ml @ As Directed STK-MED ONCE IV ; Start 09/10/16 at 11 :15; Stop 09/13/16 at 11:16; Status DC Parenteral Electrolytes 2,000 ml @ As Directed STK-MED ONCE IV ; Start at 11:15; Stop 09/13/16 at 11:16; Status DC Potassium Chloride 100 ml @ 50 mls/hr Q2H PRN IV For Potassium 2.8 - 3.2 mEq/ L Last administered on 09/22/16 06:11; Start 09/13/16 at 11:45 Potassium Chloride 100 ml @ 50 mls/hr Q2H PRN IV For Potassium 2.8 - 3.2 mEq/L ; Start 09/13/16 at 11:45 Potassium Chloride 100 ml @ 25 mls/hr UNSCH PRN IV For Potassium 3.3 - 3.5 mEq /L Last administered on 09/24/16 05:55; Start 09/13/16 at 11:45 Potassium Chloride 100 ml @ 50 mls/hr Q2H PRN IV For Potassium 3.3 - 3.5 mEq/ L Last administered on 09/15/16 19:24; Start 09/13/16 at 11:45 Magnesium Sulfate/ Sodium Chloride (Magnesium Sulfate Inj/NS Inj) 100 ml @ 50 mls/hr UNSCH PRN IV For Magnesium 0.9 - 1.1 mg/dL; Start 09/13/16 at 11:45 Magnesium Oxide 800 mg 800 mg UNSCH PRN PO For Magnesium 1.2 - 1.6 mg/dL; Start 09/13/16 at 11:45 Magnesium Sulfate/ Sodium Chloride (Magnesium Sulfate Inj/NS Inj) 100 ml @ 50 mls/hr UNSCH PRN IV For Magnesium 1.2 - 1.6 mg/dL; Start 09/13/16 at 11:45 Potassium Phosphate 2000 mg 2,000 mg Q4H PRN PO For Phosphorus < 2.5 mg/dL Last administered on 09/21/16 12:46; Start 09/13/16 at 11:45 Sodium Phosphate/ Sodium Chloride (Sodium Phosphate Inj/NS 250 ml Inj) 250 ml @ 42 mls/hr UNSCH PRN IV For Phosphorus < 2.5 mg/dL Last administered on 07:18; Start 09/13/16 at 11:45 Potassium Phosphate 2000 mg 2,000 mg UNSCH PRN PO/TUBE SEE LABEL COMMENTS; Start 09/13/16 at 11:45 Potassium Phosphate 30 mmol/ Sodium Chloride 260 ml @ 42 mls/hr UNSCH PRN IV SEE LABEL COMMENTS Last administered on 09/25/16 09:37; Start 09/13/16 at 11:45 Vancomycin HCl/ Sodium Chloride (Vancomycin Inj/ NS 500 ml Inj) 517.5 ml @ 258.75 mls/ hr Q18H IV ; Start 09/13/16 at 22:00; Stop 09/13/16 at 22:00; Status DC Miscellaneous Information SPECIFIC LAB TO BE DRAWN:[facility]... ONCE ONCE XX ; Start 09/14/16 at 15:45; Stop 09/14/16 at 15:46; Status Cancel Epinephrine HCl (EPINEPHrine (1:10,000) INJ) 1 mg STK-MED ONCE IV ; Start at 05:00; Stop 09/13/16 at 14:07; Status DC Furosemide 60 mg 60 mg ONCE ONCE IV PUSH Last administered on 09/14/16 11:41 ; Start 09/14/16 at 11:30; Stop 09/14/16 at 11:31; Status DC Multivitamins/ Folic Acid/Amino Acids/ Electrolytes/ Dextrose (Mvi-12 Inj/ Folvite Inj/ Clinimix E 11/18) 1,010.2 ml @ 30 mls/hr Q24H IV-CENTRAL Last administered on 09/15/16 20:46; Start 09/14/16 at 20:00; Stop 09/16/16 at 19:59 ; Status DC Dextrose (D50w (Vial) Inj) 25 ml UNSCH PRN IV PUSH HYPOGLYCEMIA-SEE COMMENTS; Start 09/15/16 at 06:30; Stop 09/15/16 at 17:07; Status DC Insulin Human Regular (NovoLIN R SUPPLEMENTAL SCALE) 1 Q4HR SQ Last administered on 09/15/16 16:00; Start 09/15/16 at 08:00; Stop 09/15/16 at 17:07 ; Status DC Albuterol/ Ipratropium (Duoneb Neb) 1 ampule Q6HR NEB NEB Last administered on 09/22/16 16:38; Start 09/15/16 at 16:00; Stop 09/22/16 at 17:19; Status DC Albuterol Sulfate (Albuterol Neb) 2.5 mg Q2HR NEB PRN NEB dyspnea Last administered on 09/25/16 11:14; Start 09/15/16 at 14:00 Albuterol/ Ipratropium (Duoneb Neb) 1 ampule Q4HR NEB NEB ; Start 09/15/16 at 16:00; Stop 09/15/16 at 16:00; Status DC Albuterol/ Ipratropium (Duoneb Neb) 1 ampule Q2HR NEB PRN NEB dyspnea; Start at 13:30; Stop 09/15/16 at 13:30; Status DC Budesonide (Pulmicort Respule Neb) 0.5 mg Q12HR NEB NEB Last administered on 09:04; Start 09/15/16 at 20:00 Hydrocortisone Sodium Succinate (SoluCORTEF INJ) 50 mg Q8HR IV PUSH Last administered on 09/19/16 05:42; Start 09/15/16 at 22:00; Stop 09/19/16 at 09:39 ; Status DC Insulin Detemir (Levemir Inj) 12 units Q12HR SQ Last administered on 09/16/16 08:16; Start 09/15/16 at 21:00; Stop 09/16/16 at 09:39; Status DC Dextrose (D50w (Vial) Inj) 25 ml UNSCH PRN IV PUSH HYPOGLYCEMIA-SEE COMMENTS; Start 09/15/16 at 17:15; Status UNV Glucagon (Glucagon Inj) 1 mg UNSCH PRN OTHER HYPOGLYCEMIA-SEE COMMENTS; Start 09/15/16 at 17:15; Status UNV Insulin Human Regular 1 1 Q4HR SQ Last administered on 09/27/16 08:09; Start at 20:00; Stop 09/27/16 at 16:21; Status DC Calcium Gluconate 2 gm/Sodium Chloride 120 ml @ 120 mls/hr ONCE ONCE IV Last administered on 09/16/16 00:58; Start 09/16/16 at 00:45; Stop 09/16/16 at 01:44 ; Status DC Potassium Chloride 100 ml @ 50 mls/hr BOLUS ONCE IV Last administered on 09/16 12:26; Start 09/16/16 at 09:15; Stop 09/16/16 at 11:14; Status DC Magnesium Sulfate/ Dextrose 100 ml @ 100 mls/hr Q1H IV Last administered on 12:28; Start 09/16/16 at 10:00; Stop 09/16/16 at 11:59; Status DC Dexmedetomidine HCl (Precedex Inj) 50 ml @ 0 mls/hr TITRATE IV Last administered on 09/21/16 19:56; Start 09/16/16 at 09:45; Stop 09/21/16 at 21:00 ; Status DC Insulin Detemir 20 units 20 units Q12HR SQ Last administered on 09/16/16 21:19 ; Start 09/16/16 at 21:00; Stop 09/17/16 at 09:20; Status DC Multivitamins 10 ml/Folic Acid 1 mg/Amino Acids/ Electrolytes/ Dextrose 2,010.2 ml @ 30 mls/hr Q24H IV-CENTRAL Last administered on 09/17/16 20:37; Start at 20:00; Stop 09/18/16 at 12:13; Status DC Fat Emulsion Intravenous 250 ml @ 10 mls/hr Q24H IV-CENTRAL Last administered on 09/21/16 21:08; Start 09/16/16 at 20:00; Stop 09/22/16 at 19:20; Status DC Norepinephrine Bitartrate (Levophed-Dextrose Drip) 250 ml @ 0 mls/hr TITRATE IV Last administered on 09/17/16 06:50; Start 09/16/16 at 13:45 Terbutaline Sulfate (Brethine Inj) 1 mg UNSCH PRN SQ For Extravasation; Start 09/16/16 at 13:45 Midazolam HCl (Versed Inj) 5 mg ONCE ONCE IV PUSH Last administered on 13:45; Start 09/16/16 at 13:45; Stop 09/16/16 at 13:47; Status DC Fentanyl Citrate (fentaNYL INJ) 50 mcg ONCE ONCE IV PUSH Last administered on 09/16/16 13:45; Start 09/16/16 at 13:45; Stop 09/16/16 at 13:47; Status DC Sodium Chloride (NS Flush) DAILY IVF Last administered on 09/30/16 09:15; Start 09/17/16 at 09:00 Sodium Chloride UNSCH PRN IVF SEE PROTOCOL; Start 09/16/16 at 15:15 Potassium Phosphate/Sodium Chloride (Potassium Phosphate Inj/NS Inj) 155 ml @ 38.75 mls/ hr ONCE ONCE IV Last administered on 09/17/16 10:00; Start at 10:00; Stop 09/17/16 at 13:59; Status DC Insulin Detemir (Levemir Inj) 25 units Q12HR SQ Last administered on 09/18/16 09:00; Start 09/17/16 at 21:00; Stop 09/18/16 at 12:01; Status DC Insulin Detemir 10 units 10 units Q12HR SQ Last administered on 09/19/16 08:03 ; Start 09/18/16 at 21:00; Stop 09/19/16 at 09:39; Status DC Multivitamins/ Folic Acid/Amino Acids/ Electrolytes/ Dextrose (Mvi-12 Inj/ Folvite Inj/ Clinimix E 11/18) 1,010.2 ml @ 30 mls/hr Q24H IV-CENTRAL Last administered on 09/21/16 21:08; Start 09/18/16 at 20:00; Stop 09/22/16 at 13:10 ; Status DC Adenosine (Adenocard Inj) 6 mg STK-MED ONCE .ROUTE ; Start 09/19/16 at 01:35; Stop 09/19/16 at 02:16; Status DC Hydrocortisone Sodium Succinate (SoluCORTEF INJ) 50 mg BID IV PUSH Last administered on 09/21/16 08:34; Start 09/19/16 at 21:00; Stop 09/21/16 at 10:18 ; Status DC Insulin Detemir (Levemir Inj) 8 units Q12HR SQ Last administered on 09/26/16 10 :31; Start 09/19/16 at 21:00; Stop 09/26/16 at 10:48; Status DC Bisacodyl (Dulcolax Supp) 10 mg NOW ONCE RECTAL Last administered on 13:15; Start 09/20/16 at 13:15; Stop 09/20/16 at 13:16; Status DC Methylprednisolone Sodium Succinate (SoluMEDROL INJ) 80 mg Q8HR IV PUSH Last administered on 09/26/16 06:17; Start 09/21/16 at 11:00; Stop 09/26/16 at 10:49; Status DC Furosemide (Lasix Inj) 20 mg BID@09,18 IV PUSH Last administered on 09/25/16 08 :45; Start 09/21/16 at 18:00; Stop 09/25/16 at 11:41; Status DC Furosemide 20 mg 20 mg STAT ONCE IV PUSH Last administered on 09/21/16 12:30 ; Start 09/21/16 at 12:15; Stop 09/21/16 at 12:16; Status DC Dexmedetomidine HCl 400 mcg/ Sodium Chloride 100 ml @ 0 mls/hr TITRATE IV Last administered on 09/22/16 03:27; Start 09/21/16 at 20:15; Stop 09/22/16 at 04:04 ; Status DC Dexmedetomidine HCl/Sodium Chloride (Precedex Inj/NS 250 ml Inj) 250 ml @ 0 mls/ hr TITRATE IV Last administered on 09/24/16 13:44; Start 09/22/16 at 04:15; Stop 09/25/16 at 11:50; Status DC Potassium Bicarb/ Potassium Chloride (K-Lyte Cl Eff) 25 meq ONCE ONCE PO Last administered on 09/22/16 11:15; Start 09/22/16 at 10:45; Stop 09/22/16 at 10:54; Status DC Potassium Bicarb/ Potassium Chloride (K-Lyte Cl Eff) 25 meq Q12HR NG Last administered on 09/25/16 08:45; Start 09/22/16 at 10:45; Stop 09/25/16 at 11:41; Status DC Acetazolamide Sodium 500 mg 500 mg ONCE ONCE IV PUSH Last administered on 09/22 11:16; Start 09/22/16 at 10:45; Stop 09/22/16 at 10:54; Status DC Multivitamins/ Folic Acid/Amino Acids/ Electrolytes/ Dextrose (Mvi-12 Inj/ Folvite Inj/ Clinimix E 11/18) 2,010.2 ml @ 60 mls/hr Q24H IV-CENTRAL ; Start at 20:00; Stop 09/22/16 at 20:00; Status DC Acetazolamide Sodium (Diamox Inj) 500 mg ONCE ONCE IV PUSH Last administered on 09/23/16 15:36; Start 09/23/16 at 14:15; Stop 09/23/16 at 14:21; Status DC Quetiapine Fumarate (SEROquel) 50 mg BID PO Last administered on 09/25/16 08:45 ; Start 09/24/16 at 11:00; Stop 09/25/16 at 11:41; Status DC Water (Free Water) 200 ml Q4HR G-TUBE Last administered on 09/25/16 12:00; Start 09/24/16 at 12:00; Stop 09/25/16 at 14:00; Status DC Albuterol/ Ipratropium (Duoneb Neb) 1 ampule Q6HR NEB NEB Last administered on 09/29/16 16:00; Start 09/25/16 at 16:00; Stop 09/29/16 at 16:06; Status DC Quetiapine Fumarate (SEROquel) 25 mg BID PO Last administered on 09/28/16 08:34 ; Start 09/25/16 at 21:00; Stop 09/28/16 at 11:32; Status DC Insulin Detemir (Levemir Inj) 15 units Q12HR SQ ; Start 09/26/16 at 21:00; Stop 09/26/16 at 21:00; Status DC Insulin Detemir (Levemir Inj) 12 units Q12HR SQ Last administered on 09/27/16 08:08; Start 09/26/16 at 21:00; Stop 09/27/16 at 16:21; Status DC Methylprednisolone Sodium Succinate 60 mg 60 mg Q8HR IV PUSH Last administered on 09/28/16 04:52; Start 09/26/16 at 14:00; Stop 09/28/16 at 08:37; Status DC Sodium Chloride/ Sterile Water (Sodium Chloride 23.4% Inj/Sterile Water For Inj ) 1,009.625 ml @ 42 mls/hr Q24H IV Last administered on 09/28/16 15:49; Start 09/27/16 at 16:00; Stop 09/29/16 at 16:06; Status DC Insulin Detemir (Levemir Inj) 8 units Q12HR SQ Last administered on 09/30/16 09 :09; Start 09/27/16 at 21:00 Dextrose (D50w (Vial) Inj) 25 ml UNSCH PRN IV PUSH HYPOGLYCEMIA-SEE COMMENTS; Start 09/27/16 at 16:30 Glucagon (Glucagon Inj) 1 mg UNSCH PRN OTHER HYPOGLYCEMIA-SEE COMMENTS; Start 09/27/16 at 16:30 Insulin Human Regular (NovoLIN R SUPPLEMENTAL SCALE) 1 ACHS SLIDING SCALE SQ Last administered on 09/30/16 11:30; Start 09/27/16 at 21:00 Hydralazine HCl (Apresoline Inj) 10 mg Q1HR PRN IV PUSH SBP>160, DBP>90 Last administered on 09/28/16 16:07; Start 09/27/16 at 16:30 Labetalol HCl (Trandate Inj) 10 mg Q1HR PRN IV PUSH SBP>160, DBP>90, HR>65; Start 09/27/16 at 16:30 Nitroglycerin (Nitroglycerin 2% Oint) 2 inch Q6HR PRN TOPICAL SBP>160, DBP>90 Last administered on 09/28/16 17:22; Start 09/27/16 at 16:30 Methylprednisolone Sodium Succinate (SoluMEDROL INJ) 60 mg Q12H IV PUSH Last administered on 09/30/16 05:29; Start 09/28/16 at 17:00 Quetiapine Fumarate (SEROquel) 25 mg DAILY PO Last administered on 4/6/17at 09: 24; Start 09/29/16 at 09:00 Quetiapine Fumarate (SEROquel) 50 mg HS PO Last administered on 09/29/16 21:42 ; Start 09/28/16 at 21:00 Miscellaneous (Pill Splitter) 1 ea UNSCH PRN OTHER SEE LABEL COMMENTS; Start at 12:00 Albuterol/ Ipratropium (Duoneb Neb) 1 ampule Q6HR NEB NEB Last administered on 09/30/16 09:04; Start 09/29/16 at 22:00 Guaifenesin (Mucinex Er) 600 mg BID PO Last administered on 09/30/16 09:10; Start 09/29/16 at 21:00 Date of Insertion: Sep 16, 2016 Date of Removal: Sep 25, 2016 Line: Central Venous Catheter Side: Left Location: Internal, Jugular A/P Assessment and Plan Toxic metabolic encephalopathy -Due to patient's medical condition was being treated for. -Resolved. -Status post off Precedex drip and fentanyl drip. -Seroquel 25 twice a day. Wean down as tolerated A. fib with RVR - normal sinus rhythm/Hypertension/Dyslipidemia/History of splenic artery stenting secondary to aneurysm -Status post Off all vasopressors and milrinone -Amiodarone drip has been discontinued 1 week -on Prinivil 10 mg by mouth twice daily for hypertension Acute hypoxemic respiratory failure Severe COPD Pleural effusion status post bilateral chest tubes since removed Right midlung pulmonary nodule/[address] follow-up recommended 6 months - s/p Extubated on 09/21. -[employer] is following. Patient currently on nasal cannula. Patient on Solu-Medrol. -DuoNeb therapy every 6 hours with albuterol every 2 hours for breakthrough dyspnea -Pulmicort twice a day -Right chest tube discontinued 09/18 -Left chest tube discontinued 09/19 Postop day #20 exploratory lap lysis of adhesions - Dr. Henriquez Chronic pancreatitis Abdominal ascites Internal hemorrhoids Elevated transaminases -Status post EGD by GI. - Pathology revealed chronic gastritis inflammation -Says post colonoscopy by GI 09/06 -incomplete splenic flexure normal mucosa. Internal hemorrhoids. -TPN stopped on 09/22 as patient tolerating tube feeds -Currently tube feeds Glucerna 1.5 at 60 cc an hour/goal. ADA diet/. Pured With honey thickened liquids. -Protonix 40 mg IV twice a day -Surgery signed off. Diabetes mellitus -Sliding-scale insulin with Accu-Cheks every 4 hours maintain euglycemia/High dose . -On Levemir 15 units twice a day. Holding home medication glipizide 10 mg by mouth daily Leukocytosis Anemia Right cephalic/basilic superficial thrombus -Follow CBC. -On Lovenox 40 subcutaneous daily SIRS -ID has stopped all antibiotics since 09/22 and patient continued to do well. -Multiple cultures obtained and all negative. Hypernatremia -Encourage more free water intake. -Patient on IV fluids. -We'll continue to monitor and trend sodium. Diarrhea -Pending C. difficile PCR. Prophylaxis - GI - Protonix IV twice a day - DVT - SCD/Lovenox Discharge Planning Patient clinically doing better will downgrade to [facility]. Milady Saeed MD Sep 30, 2016 14:56
[2016-09-30 15:26] LABS: C. DIFF EPI 027 PRESUMPTIVE NEGATIVE (NEGATIVE); C. DIFF TOXIN PCR NEGATIVE (NEGATIVE)
[2016-09-30] MEDS: ENOXAPARIN SODIUM 40 MG/0.4 ML SYRINGE SQ SCH (16:21)
[2016-09-30 19:22] LABS: BICARBONATE 35.4 MEQ/L (21.0-32.0); POTASSIUM 3.2 MEQ/L (3.5-5.1)
[2016-09-30 19:40] LABS: CALCIUM-PROTEIN CORRECTED 8.4 MG/DL (8.5-10.1)
--- NOTE | 2016-09-30 20:55 | HHI.PR ---
Subjective Remarks %, maintans sat61 YOWM with Pancreatitis,COPD,Nicotine use had Exp Lap Extubated w Tolerates PO Weaned to NC Breathing better Objective Vital Signs Vital Signs Date Time Temp Pulse Resp B/P Pulse Ox O2 Delivery O2 Flow Rate FiO2 09/30/16 19:00 93 Nasal Cannula 2.00 09/30/16 16:00 98.9 74 21 125/71 95 09/30/16 14:00 90 09/30/16 12:00 98.8 84 21 118/62 93 09/30/16 12:00 84 09/30/16 10:00 104 09/30/16 09:05 95 Nasal Cannula 2.00 09/30/16 08:00 98.1 76 24 154/74 94 09/30/16 08:00 74 09/30/16 07:00 93 Nasal Cannula 2.00 09/30/16 06:00 72 09/30/16 04:00 98.2 90 24 111/63 93 09/30/16 04:00 90 09/30/16 02:00 70 09/30/16 00:00 99.0 74 19 121/76 90 09/30/16 00:00 74 09/29/16 22:00 72 I/O 09/29/16 09/29/16 09/29/16 09/30/16 09/30/16 09/30/16 07:00 15:00 23:00 07:00 15:00 23:00 Intake Total 650 ml 515 ml 191 ml 328 ml 420 ml Output Total 550 ml 1100 ml 775 ml 575 ml 550 ml Balance 100 ml -585 ml -584 ml -247 ml -130 ml Intake Oral 90 ml 100 ml 420 ml IV Total 326 ml 395 ml Tube Feeding 264 ml 131 ml 228 ml Tube Irrigant 60 ml Other 30 ml 60 ml Output Urine Total 550 ml 1100 ml 775 ml 575 ml 550 ml Tube Feeding Residual Discard 0 ml # Voids 1 # Bowel Movements 2 0 3 1 Result Diagram: 09/28/16 0346 09/30/16 1834 Objective Remarks GENERAL: MBMN WM , on BIPAP SKIN: Warm and dry. HEAD: Normocephalic. EYES: No scleral icterus. No injection or drainage. NECK: Supple, trachea midline. No JVD or lymphadenopathy. CARDIOVASCULAR: Regular rate and rhythm without murmurs, gallops, or rubs. RESPIRATORY: Breath sounds equal bilaterally. No accessory muscle use. GASTROINTESTINAL: Abdomen soft, non-tender, MUSCULOSKELETAL: No cyanosis, or edema. BACK: Nontender without obvious deformity. No CVA tenderness. A/P Assessment and Plan RF, s/p Extubation Hypoxia Hypotension-resolved S/P Exp Lap COPD Nicotine use DM PLAN: Supplement 02 to keep sat >88% Broad spectrum Abx Aerosol nebs. TF Encourage Velasquez Kumar MD Sep 30, 2016 20:54
[2016-09-30] MEDS: QUEtiapine FUMARATE 100 MG TAB PO SCH (20:56)
[2016-10-01] VITALS (9 sets, daily range): BP systolic 100–134; BP diastolic 64–69; PULSE 60–84; RESP 16–22; TEMP 96.5–98.4; O2SAT 88–94
[2016-10-01 05:18] LABS: HEMATOCRIT 43.5 % (39.0-51.0); MEAN CORPUSCULAR HEMOGLOBIN 29.3 PG (27.0-34.0); PLATELET COUNT 101 TH/MM3 (150-450); RED BLOOD COUNT 4.89 MIL/MM3 (4.50-5.90); RED CELL DISTRIBUTION WIDTH 15.5 % (11.6-17.2); REVIEW FLAG FINAL; WHITE BLOOD COUNT 14.8 TH/MM3 (4.0-11.0)
[2016-10-01] MEDS: RESP: ALBUTEROL 2.5 MG/IPRATROPIUM 0.5 MG NEB (SCH) NEB ×4 (05:18→19:28)
[2016-10-01] MEDS: INSULIN NovoLIN REGULAR SUPPLEMENTAL SCALE SQ SCH ×4 (05:37→21:00)
[2016-10-01] MEDS: methylPREDNISolone SOD SUCC 125 MG/2 ML VIAL IV PUSH SCH ×2 (05:37→16:31)
[2016-10-01] MEDS ORDERED: POTASSIUM CHLORIDE 10 MEQ CONTROLLED RELEASE TAB PO ONE (08:45)
[2016-10-01] MEDS: SODIUM CHLORIDE 0.9% FLUSH 5 ML FLUSH FLUSH SCH ×2 (09:00→21:00)
--- NOTE | 2016-10-01 09:32 | HHI.PR ---
Subjective Remarks Follow-up for respirator failure and abdominal pain. Patient stated that he is tolerating his diet well but is not able to drink or eat a lot due to the NG tube. Patient asking for the NG tube to be removed. Denying nausea or vomiting or dominant pain. Patient also denied any shortness of breathing. Objective Vitals Vital Signs Date Time Temp Pulse Resp B/P Pulse Ox O2 Delivery O2 Flow Rate FiO2 10/01/16 04:00 96.8 72 18 125/66 88 10/01/16 00:00 97.0 72 18 110/65 92 09/30/16 22:10 Nasal Cannula 3.00 09/30/16 20:00 98.2 79 22 135/70 93 09/30/16 19:36 95 Nasal Cannula 2.00 09/30/16 19:15 77 09/30/16 19:00 93 Nasal Cannula 2.00 09/30/16 16:00 98.9 74 21 125/71 95 09/30/16 14:00 90 09/30/16 12:00 98.8 84 21 118/62 93 09/30/16 12:00 84 09/30/16 10:00 104 I/O 09/30/16 09/30/16 09/30/16 10/01/16 10/01/16 10/01/16 07:00 15:00 23:00 07:00 15:00 23:00 Intake Total 328 ml 420 ml 100 ml 391 ml Output Total 575 ml 550 ml 600 ml 500 ml Balance -247 ml -130 ml -500 ml -109 ml Intake Oral 100 ml 420 ml 100 ml 120 ml IV Total 0 ml Tube Feeding 228 ml 241 ml Other 30 ml Output Urine Total 575 ml 550 ml 600 ml 500 ml # Voids 1 # Bowel Movements 1 0 0 Result Diagram: 10/01/16 0430 09/30/16 1834 Objective Remarks GENERAL: in NAD with NG tube in place. CARDIOVASCULAR: Regular rate and rhythm without murmurs, gallops, or rubs. RESPIRATORY: No accessory muscle use. Clear to auscultation bilaterally GASTROINTESTINAL: Soft. Nondistended. No peritoneal signs. Normoactive bowel sounds. MUSCULOSKELETAL: No cyanosis, or edema. BACK: Nontender without obvious deformity. No CVA tenderness. Medications and IVs Current Medications Acetaminophen/ Hydrocodone Bitart ([place] 5-325 Mg) 1 tab ONCE ONCE PO ; Start 09/02/16 at 13:30; Stop 09/02/16 at 13:31; Status DC Ondansetron HCl (Zofran Odt) 4 mg ONCE ONCE PO Last administered on 09/02/16 13:26; Start 09/02/16 at 13:30; Stop 09/02/16 at 13:31; Status DC Ketorolac Tromethamine (Toradol Inj) 60 mg ONCE ONCE IM Last administered on 13:37; Start 09/02/16 at 13:45; Stop 09/02/16 at 13:46; Status DC Diatrizoate Meglum/ Diatrizoate Sod ( Gastroview Liq) 18 ml STK-MED ONCE .ROUTE Last administered on 09/02/16 13:37; Start 09/02/16 at 13:35; Stop at 13:36; Status DC Ondansetron HCl (Zofran Inj) 4 mg ONCE ONCE IV PUSH ; Start 09/02/16 at 15:15; Stop 09/02/16 at 15:15; Status DC Morphine Sulfate (Morphine Inj) 4 mg ONCE ONCE IV PUSH Last administered on 15:20; Start 09/02/16 at 15:15; Stop 09/02/16 at 15:16; Status DC Morphine Sulfate (Morphine Inj) 4 mg ONCE ONCE IV PUSH ; Start 09/02/16 at 15:15 ; Stop 09/02/16 at 15:15; Status DC Ondansetron HCl (Zofran Inj) 4 mg ONCE ONCE IVP ; Start 09/02/16 at 15:15; Stop 09/02/16 at 15:15; Status DC IV Flush (NS Flush) 2 ml UNSCH PRN IVF FLUSH AFTER USING IV ACCESS Last administered on 09/02/16 15:20; Start 09/02/16 at 15:15; Stop 09/02/16 at 18:03; Status DC Iohexol 100 ml 100 ml STK-MED ONCE IV Last administered on 09/02/16 15:57; Start 09/02/16 at 15:57; Stop 09/02/16 at 15:58; Status DC Ciprofloxacin/ Dextrose 200 ml @ 200 mls/hr ONCE ONCE IV Last administered on 09/02/16 16:48; Start 09/02/16 at 16:45; Stop 09/02/16 at 17:44; Status DC Metronidazole 100 ml @ 100 mls/hr ONCE ONCE IV Last administered on 09/02/16 16:48; Start 09/02/16 at 16:45; Stop 09/02/16 at 17:44; Status DC Sodium Chloride (NS 1000 ml Inj) 1,000 ml @ 125 mls/hr Q8H IV Last administered on 09/10/16 16:00; Start 09/02/16 at 18:00; Stop 09/10/16 at 19:08 ; Status DC IV Flush (NS Flush) 2 ml UNSCH PRN FLUSH FLUSH AFTER USING IV ACCESS Last administered on 09/08/16 06:43; Start 09/02/16 at 17:45 IV Flush (NS Flush) 2 ml BID FLUSH Last administered on 09/30/16 20:56; Start 09/02/16 at 21:00 Acetaminophen (Tylenol) 650 mg Q4H PRN PO TEMP > 100.4; Start 09/02/16 at 17:45 Ondansetron HCl (Zofran Inj) 4 mg Q6H PRN IVP NAUSEA OR VOMITING Last administered on 09/08/16 09:04; Start 09/02/16 at 17:45 Magnesium Hydroxide (Milk Of Magnesia Liq) 30 ml Q12H PRN PO CONSTIPATION; Start 09/02/16 at 17:45 Enoxaparin Sodium (Lovenox Inj) 40 mg Q24H SQ Last administered on 09/30/16 16: 21; Start 09/02/16 at 17:45 Naloxone HCl 0.4 mg 0.4 mg UNSCH PRN IV SEE LABEL COMMENTS; Start 09/02/16 at 17 :45 Ciprofloxacin/ Dextrose 200 ml @ 200 mls/hr Q12H IV Last administered on 04:12; Start 09/03/16 at 04:00; Stop 09/11/16 at 11:35; Status DC Metronidazole (Flagyl 500 Mg Inj) 100 ml @ 100 mls/hr Q8H IV Last administered on 09/25/16 05:19; Start 09/02/16 at 23:00; Stop 09/25/16 at 11:50; Status DC Lisinopril (Prinivil) 10 mg DAILY PO Last administered on 09/30/16 09:10; Start 09/03/16 at 09:00 Dextrose (D50w (Vial) Inj) 25 ml UNSCH PRN IV PUSH HYPOGLYCEMIA-SEE COMMENTS Last administered on 09/27/16 16:05; Start 09/02/16 at 18:45; Stop 09/27/16 at 16: 21; Status DC Glucagon (Glucagon Inj) 1 mg UNSCH PRN OTHER HYPOGLYCEMIA-SEE COMMENTS; Start 09/02/16 at 18:45; Stop 09/27/16 at 16:21; Status DC Insulin Aspart (NovoLOG SUPPLEMENTAL SCALE) 1 ACHS SLIDING SCALE SQ Last administered on 09/14/16 22:43; Start 09/02/16 at 21:00; Stop 09/15/16 at 06:27 ; Status DC Morphine Sulfate (Morphine Inj) 2 mg Q3H PRN IV PUSH PAIN 1-5; Start 09/03/16 at 00:30; Stop 09/04/16 at 11:01; Status DC Morphine Sulfate (Morphine Inj) 4 mg Q3H PRN IV PUSH PAIN 6-10 Last administered on 09/04/16 09:49; Start 09/03/16 at 00:30; Stop 09/04/16 at 11:01 ; Status DC Ketorolac Tromethamine (Toradol Inj) 30 mg ONCE ONCE IV PUSH Last administered on 09/03/16 03:50; Start 09/03/16 at 02:15; Stop 09/03/16 at 02:16 ; Status DC Iohexol (Omnipaque 350 Inj) 76 ml STK-MED ONCE IV Last administered on 09:15; Start 09/04/16 at 09:15; Stop 09/04/16 at 09:16; Status DC Hydromorphone HCl (Dilaudid Pf Inj) 1 mg Q3HR PRN IV PUSH PAIN SCALE 6 TO 10 Last administered on 09/04/16 11:55; Start 09/04/16 at 12:00; Stop 09/04/16 at 13:18; Status DC Morphine Sulfate (Morphine Inj) 2 mg Q3H PRN IV PUSH PAIN SCALE 1 TO 6; Start 09/04/16 at 14:00 Morphine Sulfate (Morphine Inj) 4 mg Q3H PRN IV PUSH PAIN SCALE 7 TO 10 Last administered on 09/22/16 01:49; Start 09/04/16 at 13:30 Polyethylene Glycol/ Electrolytes (Colyte Liq) 4,000 ml ONCE ONCE PO Last administered on 09/05/16 16:40; Start 09/05/16 at 16:00; Stop 09/05/16 at 16:01 ; Status DC Promethazine HCl (Phenergan Supp) 25 mg Q6H PRN RECTAL NAUSEA OR VOMITING Last administered on 09/04/16 17:06; Start 09/04/16 at 16:45; Stop 09/05/16 at 21:00 ; Status DC Fluticasone Propionate (Flonase Anuj Spr) 1 spray BID NASAL Last administered on 09/30/16 20:56; Start 09/05/16 at 12:00 Loratadine (Claritin) 10 mg DAILY PO Last administered on 09/30/16 09:10; Start 09/06/16 at 09:00 Promethazine HCl 25 mg 25 mg ONCE ONCE PO Last administered on 09/05/16 22:04 ; Start 09/05/16 at 21:00; Stop 09/05/16 at 21:22; Status DC Azithromycin/ Sodium Chloride (Zithromax Inj/ NS 250 ml Inj) 250 ml @ 250 mls/ hr Q24H IV Last administered on 09/07/16 11:29; Start 09/06/16 at 11:00; Stop 09/07/16 at 14:50; Status DC Guaifenesin (Mucinex Er) 600 mg BID PO Last administered on 09/29/16 09:04; Start 09/06/16 at 11:00; Stop 09/29/16 at 18:15; Status DC Magnesium Citrate (Citroma Liq) 300 ml ONCE ONCE PO Last administered on 14:54; Start 09/06/16 at 14:30; Stop 09/06/16 at 14:31; Status DC Magnesium Citrate (Citroma Liq) 300 ml ONCE ONCE PO ; Start 09/06/16 at 18:00; Stop 09/06/16 at 18:01; Status DC Bisacodyl (Dulcolax Ec) 10 mg DAILY@18,21 PO Last administered on 09/06/16 21: 00; Start 09/06/16 at 18:00; Stop 09/06/16 at 21:01; Status DC Etomidate (Amidate Inj) 20 mg STK-MED ONCE IV PUSH ; Start 09/06/16 at 13:56; Stop 09/06/16 at 14:33; Status DC Ketamine HCl (Ketalar Inj) 500 mg STK-MED ONCE .ROUTE ; Start 09/06/16 at 14:50 ; Stop 09/06/16 at 14:51; Status DC Simethicone (Mylicon Chew) 80 mg ONCE ONCE CHEW Last administered on 22:23; Start 09/06/16 at 19:45; Stop 09/06/16 at 19:46; Status DC Albuterol/ Ipratropium (Duoneb Neb) 1 ampule Q6HR NEB NEB Last administered on 09/10/16 07:34; Start 09/06/16 at 22:00; Stop 09/10/16 at 22:00; Status DC Magnesium Citrate (Citroma Liq) 300 ml ONCE ONCE PO ; Start 09/08/16 at 12:00; Stop 09/08/16 at 12:01; Status DC Magnesium Citrate (Citroma Liq) 300 ml ONCE ONCE PO ; Start 09/08/16 at 18:00; Stop 09/08/16 at 18:01; Status DC Bisacodyl (Dulcolax Ec) 10 mg ONCE ONCE PO ; Start 09/08/16 at 18:00; Stop at 18:01; Status DC Bisacodyl 10 mg 10 mg ONCE ONCE PO ; Start 09/08/16 at 21:00; Stop 09/08/16 at 21:01; Status DC Sodium Chloride (NS 1000 ml Inj) 1,000 ml @ 999 mls/hr BOLUS ONCE IV Last administered on 09/08/16 13:00; Start 09/08/16 at 10:45; Stop 09/08/16 at 11:45 ; Status DC Albuterol Sulfate 1.25 mg 1.25 mg Q6HR NEB NEB Last administered on 09/12/16 09:54; Start 09/08/16 at 16:00; Stop 09/12/16 at 16:00; Status DC Sodium Chloride 500 ml @ 500 mls/hr BOLUS ONCE IV Last administered on 17:45; Start 09/08/16 at 17:30; Stop 09/08/16 at 18:29; Status DC Pantoprazole Sodium/Sodium Chloride (Protonix Inj/NS Inj) 100 ml @ 10 mls/hr CONTINUOUS IV Last administered on 09/09/16 07:29; Start 09/08/16 at 20:00; Stop 09/09/16 at 08:31; Status DC Diatrizoate Meglum/ Diatrizoate Sod 18 ml 18 ml ONCE ONCE PO Last administered on 09/08/16 21:34; Start 09/08/16 at 21:15; Stop 09/08/16 at 21:16 ; Status DC Sodium Chloride (NS 500 ml Inj) 500 ml @ 500 mls/hr BOLUS ONCE IV Last administered on 09/09/16 02:44; Start 09/09/16 at 02:45; Stop 09/09/16 at 03:44 ; Status DC Pantoprazole Sodium 40 mg 40 mg Q12H IV PUSH Last administered on 09/30/16 20: 56; Start 09/09/16 at 21:00 Sodium Chloride 500 ml @ 500 mls/hr BOLUS ONCE IV Last administered on 09:00; Start 09/09/16 at 09:00; Stop 09/09/16 at 09:59; Status DC Potassium Chloride 100 ml @ 50 mls/hr BOLUS ONCE IV Last administered on 09/10 09:40; Start 09/10/16 at 08:00; Stop 09/10/16 at 09:59; Status DC Clindamycin Phosphate/Sodium Chloride (Cleocin Inj/NS Inj) 104 ml @ 208 mls/hr Q8H IV Last administered on 09/11/16 06:56; Start 09/10/16 at 13:00; Stop at 11:35; Status DC Midazolam HCl 2 mg 2 mg STK-MED ONCE .ROUTE ; Start 09/10/16 at 19:03; Stop at 19:04; Status DC Lactated Ringer's 1,000 ml @ 125 mls/hr Q8H IV Last administered on 09/12/16 04:00; Start 09/10/16 at 20:00; Stop 09/12/16 at 18:36; Status DC Fentanyl Citrate 250 ml @ 0 mls/hr TITRATE IV Last administered on 09/20/16 21 :04; Start 09/10/16 at 19:45; Stop 09/25/16 at 11:50; Status DC Midazolam HCl (Versed Inj) 100 ml @ 0 mls/hr TITRATE IV Last administered on 07:16; Start 09/10/16 at 20:00; Stop 09/15/16 at 13:04; Status DC Albumin Human 25 gm 25 gm NOW ONCE IV Last administered on 09/10/16 21:15; Start 09/10/16 at 20:00; Stop 09/10/16 at 20:01; Status DC Norepinephrine Bitartrate 250 ml @ As Directed STK-MED ONCE IV ; Start at 19:45; Stop 09/10/16 at 19:46; Status DC Sodium Chloride 1,000 ml @ 999 mls/hr BOLUS ONCE IV Last administered on 09/10 21:16; Start 09/10/16 at 20:00; Stop 09/10/16 at 21:00; Status DC Norepinephrine Bitartrate (Levophed-Dextrose Drip) 250 ml @ 0 mls/hr TITRATE IV Last administered on 09/11/16 12:30; Start 09/10/16 at 20:00; Stop 09/11/16 at 23:56; Status DC Terbutaline Sulfate (Brethine Inj) 1 mg UNSCH PRN SQ For Extravasation; Start 09/10/16 at 20:00; Stop 09/16/16 at 13:48; Status DC Etomidate (Amidate Inj) 20 mg STK-MED ONCE .ROUTE ; Start 09/10/16 at 20:04; Stop 09/10/16 at 20:05; Status DC Fentanyl Citrate 200 mcg 200 mcg STK-MED ONCE .ROUTE ; Start 09/10/16 at 20:06; Stop 09/10/16 at 20:07; Status DC Sodium Chloride (NS 1000 ml Inj) 1,000 ml @ 0 mls/hr NOW ONCE IV Last administered on 09/10/16 21:17; Start 09/10/16 at 21:00; Stop 09/10/16 at 21:01 ; Status DC Etomidate (Amidate Inj) 25 mg NOW ONCE IV PUSH Last administered on 09/10/16 20:10; Start 09/10/16 at 21:15; Stop 09/10/16 at 21:16; Status DC Rocuronium [place] (Zemuron Inj) 50 mg NOW ONCE IV Last administered on 20:10; Start 09/10/16 at 21:15; Stop 09/10/16 at 21:16; Status DC Chlorhexidine Gluconate 15 ml 15 ml BID@08,20 MT Last administered on 09/29/16 20:00; Start 09/11/16 at 08:00; Stop 09/30/16 at 21:17; Status DC Sodium Chloride 1,000 ml @ 0 mls/hr BOLUS ONCE IV Last administered on 00:00; Start 09/10/16 at 22:45; Stop 09/10/16 at 22:46; Status DC Parenteral Electrolytes 1,000 ml @ 500 mls/hr Q2H IV Last administered on 09/11 01:53; Start 09/11/16 at 00:00; Stop 09/11/16 at 02:00; Status DC Sodium Chloride (NS 1000 ml Inj) 1,000 ml @ 0 mls/hr BOLUS ONCE IV Last administered on 09/11/16 06:56; Start 09/11/16 at 06:00; Stop 09/11/16 at 06:01 ; Status DC Albumin Human 25 gm 25 gm STK-MED ONCE .ROUTE Last administered on 09/11/16 10 :06; Start 09/11/16 at 10:06; Stop 09/11/16 at 10:07; Status DC Calcium Chloride/ Sodium Chloride (Calcium Chloride Inj/NS Inj) 120 ml @ 120 mls/hr ONCE ONCE IV Last administered on 09/11/16 11:08; Start 09/11/16 at 12 :00; Stop 09/11/16 at 12:59; Status DC Albumin Human (Albumin 5% Inj) 25 gm STK-MED ONCE .ROUTE Last administered on 10:40; Start 09/11/16 at 10:40; Stop 09/11/16 at 10:41; Status DC Albumin Human 12.5 gm 12.5 gm STK-MED ONCE IV Last administered on 09/11/16 11 :00; Start 09/11/16 at 10:42; Stop 09/11/16 at 10:43; Status DC Cefepime HCl 2000 mg/Sodium Chloride 100 ml @ 200 mls/hr Q8H IV Last administered on 09/22/16 04:15; Start 09/11/16 at 13:00; Stop 09/22/16 at 09:51 ; Status DC Vancomycin HCl 1750 mg/Sodium Chloride 517.5 ml @ 258.75 mls/ hr ONCE ONCE IV Last administered on 09/11/16 13:30; Start 09/11/16 at 12:00; Stop 09/11/16 at 13:59; Status DC Pharmacy Profile Note 0 ml @ 0 mls/hr UNSCH OTHER ; Start 09/11/16 at 11:45; Stop 09/13/16 at 13:04; Status DC Vancomycin HCl/ Sodium Chloride (Vancomycin Inj/ NS 500 ml Inj) 517.5 ml @ 258.75 mls/ hr Q12H IV Last administered on 09/13/16 00:11; Start 09/12/16 at 00:00; Stop 09/13/16 at 12:47; Status DC Miscellaneous Information SPECIFIC LAB TO BE HAI... ONCE ONCE XX Last administered on 09/13/16 11:25; Start 09/13/16 at 11:45; Stop 09/13/16 at 11:46 ; Status DC Milrinone Lactate 20 mg/Sodium Chloride 100 ml @ 8.12 mls/hr [id number] IV Last administered on 09/17/16 22:23; Start 09/11/16 at 17:00; Stop 09/18/16 at 17:19 ; Status DC Vasopressin/ Dextrose (Pitressin Inj/ D5W 100 ml Inj) 100 ml @ 1.5 mls/hr Q24H IV Last administered on 09/12/16 17:00; Start 09/11/16 at 17:00; Stop at 06:27; Status DC Hydrocortisone Sodium Succinate 50 mg 50 mg Q6HR IV PUSH Last administered on 12:00; Start 09/11/16 at 18:00; Stop 09/15/16 at 17:07; Status DC Norepinephrine Bitartrate/ Dextrose (Levophed Inj/ D5W Inj) 266 ml @ 0 mls/hr TITRATE IV Last administered on 09/13/16 20:30; Start 09/11/16 at 23:45; Stop 09/16/16 at 13:46; Status DC Albumin Human (Albumin 5% Inj) 12.5 gm STK-MED ONCE IV Last administered on 00:21; Start 09/12/16 at 00:21; Stop 09/12/16 at 00:22; Status DC Albumin Human (Albumin 5% Inj) 12.5 gm STK-MED ONCE IV ; Start 09/12/16 at 00:22 ; Stop 09/12/16 at 00:23; Status DC Albumin Human (Albumin 5% Inj) 25 gm NOW ONCE IV Last administered on 00:30; Start 09/12/16 at 00:30; Stop 09/12/16 at 00:31; Status DC Sodium Bicarbonate (Sodium Bicarbonate 8.4% Inj) 100 meq STK-MED ONCE .ROUTE ; Start 09/12/16 at 02:56; Stop 09/12/16 at 02:57; Status DC Sodium Bicarbonate (Sodium Bicarbonate 8.4% Inj) 100 meq NOW ONCE IV Last administered on 09/12/16 03:03; Start 09/12/16 at 03:15; Stop 09/12/16 at 03:16 ; Status DC Sodium Bicarbonate 100 meq 100 meq ONCE ONCE IV PUSH ; Start 09/12/16 at 03:15 ; Stop 09/12/16 at 03:16; Status UNV Epinephrine HCl/ Dextrose (Adrenalin (1:1000) Inj/D5W Inj) 250 ml @ 0 mls/hr TITRATE IV Last administered on 09/12/16 08:54; Start 09/12/16 at 06:30; Stop 09/15/16 at 06:27; Status DC Epinephrine HCl (Adrenalin (1:1000) Inj) 1 mg STK-MED ONCE .ROUTE Last administered on 09/12/16 04:40; Start 09/12/16 at 04:40; Stop 09/12/16 at 04:41 ; Status DC Digoxin 0.25 mg 0.25 mg ONCE ONCE IV PUSH Last administered on 09/12/16 08:00 ; Start 09/12/16 at 08:00; Stop 09/12/16 at 08:01; Status DC Fluconazole/ Sodium Chloride 200 ml @ 100 mls/hr Q24H IV Last administered on 09/21/16 11:59; Start 09/12/16 at 12:00; Stop 09/22/16 at 09:51; Status DC Potassium Chloride 100 ml @ 25 mls/hr BOLUS ONCE IV Last administered on 09/12 15:30; Start 09/12/16 at 15:30; Stop 09/12/16 at 19:29; Status DC Magnesium Sulfate/ Dextrose 100 ml @ 100 mls/hr ONCE ONCE IV Last administered on 09/12/16 15:30; Start 09/12/16 at 15:30; Stop 09/12/16 at 16:29 ; Status DC Amiodarone HCl 150 mg/Dextrose 100 ml @ 600 mls/hr ONCE ONCE IV Last administered on 09/12/16 16:16; Start 09/12/16 at 15:30; Stop 09/12/16 at 15:39 ; Status DC Amiodarone HCl 900 mg/Dextrose 500 ml @ 0 mls/hr CONTINUOUS IV ; Start 09/12/16 at 15:30; Stop 09/12/16 at 15:30; Status DC Amiodarone HCl/ Dextrose (Cordarone Inj/ D5W ([place]) Inj) 250 ml @ 0 mls/hr CONTINUOUS IV Last administered on 09/15/16 16:47; Start 09/12/16 at 15:30; Stop 09/16/16 at 09:39; Status DC Furosemide (Lasix Inj) 40 mg STK-MED ONCE .ROUTE Last administered on 15:40; Start 09/12/16 at 15:40; Stop 09/12/16 at 15:41; Status DC Lidocaine HCl (Xylocaine 1% Inj (50 ml)) 50 ml STK-MED ONCE .ROUTE ; Start 09/12 at 16:45; Stop 09/12/16 at 16:46; Status DC Furosemide (Lasix Inj) 40 mg ONCE ONCE IV PUSH ; Start 09/12/16 at 18:45; Stop 09/12/16 at 18:46; Status DC Furosemide 60 mg 60 mg ONCE ONCE IV PUSH Last administered on 09/13/16 08:56 ; Start 09/13/16 at 08:30; Stop 09/13/16 at 08:31; Status DC Lactated Ringer's 1,000 ml @ As Directed STK-MED ONCE IV ; Start 09/10/16 at 11 :15; Stop 09/13/16 at 11:16; Status DC Parenteral Electrolytes 2,000 ml @ As Directed STK-MED ONCE IV ; Start at 11:15; Stop 09/13/16 at 11:16; Status DC Potassium Chloride 100 ml @ 50 mls/hr Q2H PRN IV For Potassium 2.8 - 3.2 mEq/ L Last administered on 09/22/16 06:11; Start 09/13/16 at 11:45; Stop 09/30/16 at 21:17; Status DC Potassium Chloride 100 ml @ 50 mls/hr Q2H PRN IV For Potassium 2.8 - 3.2 mEq/L ; Start 09/13/16 at 11:45; Stop 09/30/16 at 21:17; Status DC Potassium Chloride 100 ml @ 25 mls/hr UNSCH PRN IV For Potassium 3.3 - 3.5 mEq /L Last administered on 09/24/16 05:55; Start 09/13/16 at 11:45; Stop 09/30/16 at 21:17; Status DC Potassium Chloride 100 ml @ 50 mls/hr Q2H PRN IV For Potassium 3.3 - 3.5 mEq/ L Last administered on 09/15/16 19:24; Start 09/13/16 at 11:45; Stop 09/30/16 at 21:17; Status DC Magnesium Sulfate/ Sodium Chloride (Magnesium Sulfate Inj/NS Inj) 100 ml @ 50 mls/hr UNSCH PRN IV For Magnesium 0.9 - 1.1 mg/dL; Start 09/13/16 at 11:45; Stop 09/30/16 at 21:17; Status DC Magnesium Oxide 800 mg 800 mg UNSCH PRN PO For Magnesium 1.2 - 1.6 mg/dL; Start 09/13/16 at 11:45; Stop 09/30/16 at 21:17; Status DC Magnesium Sulfate/ Sodium Chloride (Magnesium Sulfate Inj/NS Inj) 100 ml @ 50 mls/hr UNSCH PRN IV For Magnesium 1.2 - 1.6 mg/dL; Start 09/13/16 at 11:45; Stop 09/30/16 at 21:17; Status DC Potassium Phosphate 2000 mg 2,000 mg Q4H PRN PO For Phosphorus < 2.5 mg/dL Last administered on 09/21/16 12:46; Start 09/13/16 at 11:45; Stop 09/30/16 at 21:17; Status DC Sodium Phosphate/ Sodium Chloride (Sodium Phosphate Inj/NS 250 ml Inj) 250 ml @ 42 mls/hr UNSCH PRN IV For Phosphorus < 2.5 mg/dL Last administered on 07:18; Start 09/13/16 at 11:45; Stop 09/30/16 at 21:17; Status DC Potassium Phosphate 2000 mg 2,000 mg UNSCH PRN PO/TUBE SEE LABEL COMMENTS; Start 09/13/16 at 11:45; Stop 09/30/16 at 21:17; Status DC Potassium Phosphate 30 mmol/ Sodium Chloride 260 ml @ 42 mls/hr UNSCH PRN IV SEE LABEL COMMENTS Last administered on 09/25/16 09:37; Start 09/13/16 at 11:45 ; Stop 09/30/16 at 21:17; Status DC Vancomycin HCl/ Sodium Chloride (Vancomycin Inj/ NS 500 ml Inj) 517.5 ml @ 258.75 mls/ hr Q18H IV ; Start 09/13/16 at 22:00; Stop 09/13/16 at 22:00; Status DC Miscellaneous Information SPECIFIC LAB TO BE DRAWN:[facility]... ONCE ONCE XX ; Start 09/14/16 at 15:45; Stop 09/14/16 at 15:46; Status Cancel Epinephrine HCl (EPINEPHrine (1:10,000) INJ) 1 mg STK-MED ONCE IV ; Start at 05:00; Stop 09/13/16 at 14:07; Status DC Furosemide 60 mg 60 mg ONCE ONCE IV PUSH Last administered on 09/14/16 11:41 ; Start 09/14/16 at 11:30; Stop 09/14/16 at 11:31; Status DC Multivitamins/ Folic Acid/Amino Acids/ Electrolytes/ Dextrose (Mvi-12 Inj/ Folvite Inj/ Clinimix E 11/18) 1,010.2 ml @ 30 mls/hr Q24H IV-CENTRAL Last administered on 09/15/16 20:46; Start 09/14/16 at 20:00; Stop 09/16/16 at 19:59 ; Status DC Dextrose (D50w (Vial) Inj) 25 ml UNSCH PRN IV PUSH HYPOGLYCEMIA-SEE COMMENTS; Start 09/15/16 at 06:30; Stop 09/15/16 at 17:07; Status DC Insulin Human Regular (NovoLIN R SUPPLEMENTAL SCALE) 1 Q4HR SQ Last administered on 09/15/16 16:00; Start 09/15/16 at 08:00; Stop 09/15/16 at 17:07 ; Status DC Albuterol/ Ipratropium (Duoneb Neb) 1 ampule Q6HR NEB NEB Last administered on 09/22/16 16:38; Start 09/15/16 at 16:00; Stop 09/22/16 at 17:19; Status DC Albuterol Sulfate (Albuterol Neb) 2.5 mg Q2HR NEB PRN NEB dyspnea Last administered on 09/25/16 11:14; Start 09/15/16 at 14:00 Albuterol/ Ipratropium (Duoneb Neb) 1 ampule Q4HR NEB NEB ; Start 09/15/16 at 16:00; Stop 09/15/16 at 16:00; Status DC Albuterol/ Ipratropium (Duoneb Neb) 1 ampule Q2HR NEB PRN NEB dyspnea; Start at 13:30; Stop 09/15/16 at 13:30; Status DC Budesonide (Pulmicort Respule Neb) 0.5 mg Q12HR NEB NEB Last administered on 19:38; Start 09/15/16 at 20:00 Hydrocortisone Sodium Succinate (SoluCORTEF INJ) 50 mg Q8HR IV PUSH Last administered on 09/19/16 05:42; Start 09/15/16 at 22:00; Stop 09/19/16 at 09:39 ; Status DC Insulin Detemir (Levemir Inj) 12 units Q12HR SQ Last administered on 09/16/16 08:16; Start 09/15/16 at 21:00; Stop 09/16/16 at 09:39; Status DC Dextrose (D50w (Vial) Inj) 25 ml UNSCH PRN IV PUSH HYPOGLYCEMIA-SEE COMMENTS; Start 09/15/16 at 17:15; Status UNV Glucagon (Glucagon Inj) 1 mg UNSCH PRN OTHER HYPOGLYCEMIA-SEE COMMENTS; Start 09/15/16 at 17:15; Status UNV Insulin Human Regular 1 1 Q4HR SQ Last administered on 09/27/16 08:09; Start at 20:00; Stop 09/27/16 at 16:21; Status DC Calcium Gluconate 2 gm/Sodium Chloride 120 ml @ 120 mls/hr ONCE ONCE IV Last administered on 09/16/16 00:58; Start 09/16/16 at 00:45; Stop 09/16/16 at 01:44 ; Status DC Potassium Chloride 100 ml @ 50 mls/hr BOLUS ONCE IV Last administered on 09/16 12:26; Start 09/16/16 at 09:15; Stop 09/16/16 at 11:14; Status DC Magnesium Sulfate/ Dextrose 100 ml @ 100 mls/hr Q1H IV Last administered on 12:28; Start 09/16/16 at 10:00; Stop 09/16/16 at 11:59; Status DC Dexmedetomidine HCl (Precedex Inj) 50 ml @ 0 mls/hr TITRATE IV Last administered on 09/21/16 19:56; Start 09/16/16 at 09:45; Stop 09/21/16 at 21:00 ; Status DC Insulin Detemir 20 units 20 units Q12HR SQ Last administered on 09/16/16 21:19 ; Start 09/16/16 at 21:00; Stop 09/17/16 at 09:20; Status DC Multivitamins 10 ml/Folic Acid 1 mg/Amino Acids/ Electrolytes/ Dextrose 2,010.2 ml @ 30 mls/hr Q24H IV-CENTRAL Last administered on 09/17/16 20:37; Start at 20:00; Stop 09/18/16 at 12:13; Status DC Fat Emulsion Intravenous 250 ml @ 10 mls/hr Q24H IV-CENTRAL Last administered on 09/21/16 21:08; Start 09/16/16 at 20:00; Stop 09/22/16 at 19:20; Status DC Norepinephrine Bitartrate (Levophed-Dextrose Drip) 250 ml @ 0 mls/hr TITRATE IV Last administered on 09/17/16 06:50; Start 09/16/16 at 13:45; Stop 09/30/16 at 21:17; Status DC Terbutaline Sulfate (Brethine Inj) 1 mg UNSCH PRN SQ For Extravasation; Start 09/16/16 at 13:45 Midazolam HCl (Versed Inj) 5 mg ONCE ONCE IV PUSH Last administered on 13:45; Start 09/16/16 at 13:45; Stop 09/16/16 at 13:47; Status DC Fentanyl Citrate (fentaNYL INJ) 50 mcg ONCE ONCE IV PUSH Last administered on 09/16/16 13:45; Start 09/16/16 at 13:45; Stop 09/16/16 at 13:47; Status DC Sodium Chloride (NS Flush) DAILY IVF Last administered on 09/30/16 09:15; Start 09/17/16 at 09:00 Sodium Chloride UNSCH PRN IVF SEE PROTOCOL; Start 09/16/16 at 15:15 Potassium Phosphate/Sodium Chloride (Potassium Phosphate Inj/NS Inj) 155 ml @ 38.75 mls/ hr ONCE ONCE IV Last administered on 09/17/16 10:00; Start at 10:00; Stop 09/17/16 at 13:59; Status DC Insulin Detemir (Levemir Inj) 25 units Q12HR SQ Last administered on 09/18/16 09:00; Start 09/17/16 at 21:00; Stop 09/18/16 at 12:01; Status DC Insulin Detemir 10 units 10 units Q12HR SQ Last administered on 09/19/16 08:03 ; Start 09/18/16 at 21:00; Stop 09/19/16 at 09:39; Status DC Multivitamins/ Folic Acid/Amino Acids/ Electrolytes/ Dextrose (Mvi-12 Inj/ Folvite Inj/ Clinimix E 11/18) 1,010.2 ml @ 30 mls/hr Q24H IV-CENTRAL Last administered on 09/21/16 21:08; Start 09/18/16 at 20:00; Stop 09/22/16 at 13:10 ; Status DC Adenosine (Adenocard Inj) 6 mg STK-MED ONCE .ROUTE ; Start 09/19/16 at 01:35; Stop 09/19/16 at 02:16; Status DC Hydrocortisone Sodium Succinate (SoluCORTEF INJ) 50 mg BID IV PUSH Last administered on 09/21/16 08:34; Start 09/19/16 at 21:00; Stop 09/21/16 at 10:18 ; Status DC Insulin Detemir (Levemir Inj) 8 units Q12HR SQ Last administered on 09/26/16 10 :31; Start 09/19/16 at 21:00; Stop 09/26/16 at 10:48; Status DC Bisacodyl (Dulcolax Supp) 10 mg NOW ONCE RECTAL Last administered on 13:15; Start 09/20/16 at 13:15; Stop 09/20/16 at 13:16; Status DC Methylprednisolone Sodium Succinate (SoluMEDROL INJ) 80 mg Q8HR IV PUSH Last administered on 09/26/16 06:17; Start 09/21/16 at 11:00; Stop 09/26/16 at 10:49; Status DC Furosemide (Lasix Inj) 20 mg BID@09,18 IV PUSH Last administered on 09/25/16 08 :45; Start 09/21/16 at 18:00; Stop 09/25/16 at 11:41; Status DC Furosemide 20 mg 20 mg STAT ONCE IV PUSH Last administered on 09/21/16 12:30 ; Start 09/21/16 at 12:15; Stop 09/21/16 at 12:16; Status DC Dexmedetomidine HCl 400 mcg/ Sodium Chloride 100 ml @ 0 mls/hr TITRATE IV Last administered on 09/22/16 03:27; Start 09/21/16 at 20:15; Stop 09/22/16 at 04:04 ; Status DC Dexmedetomidine HCl/Sodium Chloride (Precedex Inj/NS 250 ml Inj) 250 ml @ 0 mls/ hr TITRATE IV Last administered on 09/24/16 13:44; Start 09/22/16 at 04:15; Stop 09/25/16 at 11:50; Status DC Potassium Bicarb/ Potassium Chloride (K-Lyte Cl Eff) 25 meq ONCE ONCE PO Last administered on 09/22/16 11:15; Start 09/22/16 at 10:45; Stop 09/22/16 at 10:54; Status DC Potassium Bicarb/ Potassium Chloride (K-Lyte Cl Eff) 25 meq Q12HR NG Last administered on 09/25/16 08:45; Start 09/22/16 at 10:45; Stop 09/25/16 at 11:41; Status DC Acetazolamide Sodium 500 mg 500 mg ONCE ONCE IV PUSH Last administered on 09/22 11:16; Start 09/22/16 at 10:45; Stop 09/22/16 at 10:54; Status DC Multivitamins/ Folic Acid/Amino Acids/ Electrolytes/ Dextrose (Mvi-12 Inj/ Folvite Inj/ Clinimix E 11/18) 2,010.2 ml @ 60 mls/hr Q24H IV-CENTRAL ; Start at 20:00; Stop 09/22/16 at 20:00; Status DC Acetazolamide Sodium (Diamox Inj) 500 mg ONCE ONCE IV PUSH Last administered on 09/23/16 15:36; Start 09/23/16 at 14:15; Stop 09/23/16 at 14:21; Status DC Quetiapine Fumarate (SEROquel) 50 mg BID PO Last administered on 09/25/16 08:45 ; Start 09/24/16 at 11:00; Stop 09/25/16 at 11:41; Status DC Water (Free Water) 200 ml Q4HR G-TUBE Last administered on 09/25/16 12:00; Start 09/24/16 at 12:00; Stop 09/25/16 at 14:00; Status DC Albuterol/ Ipratropium (Duoneb Neb) 1 ampule Q6HR NEB NEB Last administered on 09/29/16 16:00; Start 09/25/16 at 16:00; Stop 09/29/16 at 16:06; Status DC Quetiapine Fumarate (SEROquel) 25 mg BID PO Last administered on 09/28/16 08:34 ; Start 09/25/16 at 21:00; Stop 09/28/16 at 11:32; Status DC Insulin Detemir (Levemir Inj) 15 units Q12HR SQ ; Start 09/26/16 at 21:00; Stop 09/26/16 at 21:00; Status DC Insulin Detemir (Levemir Inj) 12 units Q12HR SQ Last administered on 09/27/16 08:08; Start 09/26/16 at 21:00; Stop 09/27/16 at 16:21; Status DC Methylprednisolone Sodium Succinate 60 mg 60 mg Q8HR IV PUSH Last administered on 09/28/16 04:52; Start 09/26/16 at 14:00; Stop 09/28/16 at 08:37; Status DC Sodium Chloride/ Sterile Water (Sodium Chloride 23.4% Inj/Sterile Water For Inj ) 1,009.625 ml @ 42 mls/hr Q24H IV Last administered on 09/28/16 15:49; Start 09/27/16 at 16:00; Stop 09/29/16 at 16:06; Status DC Insulin Detemir (Levemir Inj) 8 units Q12HR SQ Last administered on 09/30/16 20 :55; Start 09/27/16 at 21:00 Dextrose (D50w (Vial) Inj) 25 ml UNSCH PRN IV PUSH HYPOGLYCEMIA-SEE COMMENTS; Start 09/27/16 at 16:30 Glucagon (Glucagon Inj) 1 mg UNSCH PRN OTHER HYPOGLYCEMIA-SEE COMMENTS; Start 09/27/16 at 16:30 Insulin Human Regular (NovoLIN R SUPPLEMENTAL SCALE) 1 ACHS SLIDING SCALE SQ Last administered on 09/30/16 20:56; Start 09/27/16 at 21:00 Hydralazine HCl (Apresoline Inj) 10 mg Q1HR PRN IV PUSH SBP>160, DBP>90 Last administered on 09/28/16 16:07; Start 09/27/16 at 16:30 Labetalol HCl (Trandate Inj) 10 mg Q1HR PRN IV PUSH SBP>160, DBP>90, HR>65; Start 09/27/16 at 16:30; Stop 09/30/16 at 21:17; Status DC Nitroglycerin (Nitroglycerin 2% Oint) 2 inch Q6HR PRN TOPICAL SBP>160, DBP>90 Last administered on 09/28/16 17:22; Start 09/27/16 at 16:30 Methylprednisolone Sodium Succinate (SoluMEDROL INJ) 60 mg Q12H IV PUSH Last administered on 10/01/16 05:37; Start 09/28/16 at 17:00 Quetiapine Fumarate (SEROquel) 25 mg DAILY PO Last administered on 09/30/16 09: 24; Start 09/29/16 at 09:00 Quetiapine Fumarate (SEROquel) 50 mg HS PO Last administered on 09/30/16 20:56 ; Start 09/28/16 at 21:00 Miscellaneous (Pill Splitter) 1 ea UNSCH PRN OTHER SEE LABEL COMMENTS; Start at 12:00 Albuterol/ Ipratropium (Duoneb Neb) 1 ampule Q6HR NEB NEB Last administered on 10/01/16 05:18; Start 09/29/16 at 22:00 Guaifenesin (Mucinex Er) 600 mg BID PO Last administered on 09/30/16 20:55; Start 09/29/16 at 21:00 Potassium Chloride (KCl) 30 meq ONCE ONCE PO ; Start 10/01/16 at 08:45; Stop 10/01/16 at 08:53; Status DC Date of Insertion: Sep 16, 2016 Date of Removal: Sep 25, 2016 Line: Central Venous Catheter Side: Left Location: Internal, Jugular A/P Assessment and Plan Toxic metabolic encephalopathy -Due to patient's medical condition was being treated for. -Resolved. -Status post off Precedex drip and fentanyl drip. -Seroquel 25 twice a day. Wean down as tolerated A. 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 -Occupational Therapist Aide is following. Patient currently on nasal cannula. Patient on Solu-Medrol. -DuoNeb therapy every 6 hours with albuterol every 2 hours for breakthrough dyspnea -Pulmicort twice a day -Right chest tube discontinued 09/18 -Left chest tube discontinued 09/19 Postop day #21 exploratory lap lysis of adhesions - Dr. Henriquez Chronic pancreatitis Abdominal ascites Internal hemorrhoids Elevated transaminases -Status post EGD by GI. - Pathology revealed chronic gastritis inflammation -Says post colonoscopy by GI 09/06 -incomplete splenic flexure normal mucosa. Internal hemorrhoids. -TPN stopped on 09/22 as patient tolerating tube feeds -Currently tube feeds Glucerna 1.5 at 60 cc an hour/goal. ADA diet/. Pured With honey thickened liquids. -Protonix 40 mg IV twice a day -Surgery signed off. Diabetes mellitus -Sliding-scale insulin with Accu-Cheks every 4 hours maintain euglycemia/High dose . -On Levemir 15 units twice a day. Holding home medication glipizide 10 mg by mouth daily Leukocytosis Anemia Right cephalic/basilic superficial thrombus -Follow CBC. -On Lovenox 40 subcutaneous daily SIRS -ID has stopped all antibiotics since 09/22 and patient continued to do well. -Multiple cultures obtained and all negative. Hypernatremia -Encourage more free water intake but per patient difficult due to NG tube. -Patient on IV fluids. -We'll continue to monitor and trend sodium. -will d/w surgery in regards to NG Diarrhea -C. difficile negative. Decondition -Due to severity of illness. Will consult PT and OT. Prophylaxis - GI - Protonix IV twice a day - DVT - SCD/Lovenox Discharge Planning Patient continues to her per NG tube. Hopefully he will just require a few days of hospitalization since he is clinically improving. Milady Saeed MD Oct 01, 2016 09:32
[2016-10-01] MEDS: RESP: BUDESONIDE 0.5 MG/2 ML NEB NEB SCH ×2 (09:36→19:28)
[2016-10-01] MEDS: PANTOPRAZOLE SODIUM 40 MG VIAL IV PUSH SCH ×2 (09:57→21:02)
[2016-10-01] MEDS: guaiFENesin E.R. 600 MG TAB PO SCH ×2 (09:58→21:00)
[2016-10-01] MEDS: QUEtiapine FUMARATE 25 MG TAB PO SCH (09:58)
[2016-10-01] MEDS: SODIUM CHLORIDE 0.9% FLUSH 10 ML FLUSH IVF SCH (09:58)
[2016-10-01] MEDS: LORATADINE 10 MG TAB PO SCH (09:58)
[2016-10-01] MEDS: LISINOPRIL 10 MG TAB PO SCH (09:58)
[2016-10-01] MEDS: INSULIN DETEMIR 100 UNITS/ML VIAL SQ SCH ×2 (09:59→21:00)
[2016-10-01] MEDS: FLUTICASONE PROPIONATE 50 MCG/ACT 16 GM NASAL SPRAY NASAL SCH ×2 (10:01→21:02)
[2016-10-01] MEDS: ENOXAPARIN SODIUM 40 MG/0.4 ML SYRINGE SQ SCH (16:31)
--- NOTE | 2016-10-01 19:10 | HHI.PR ---
Subjective Remarks %, maintans sat61 YOWM with Pancreatitis,COPD,Nicotine use had Exp Lap Tolerates PO Weaned to NC Breathing better No new complaint Objective Vital Signs Vital Signs Date Time Temp Pulse Resp B/P Pulse Ox O2 Delivery O2 Flow Rate FiO2 10/01/16 16:00 96.5 80 16 100/64 93 10/01/16 15:23 94 Nasal Cannula 3.00 10/01/16 12:00 98.4 84 16 130/66 91 10/01/16 10:15 91 Nasal Cannula 3.00 21 10/01/16 09:37 89 21 10/01/16 08:00 96.6 60 16 134/69 91 10/01/16 04:00 96.8 72 18 125/66 88 10/01/16 00:00 97.0 72 18 110/65 92 09/30/16 22:10 Nasal Cannula 3.00 09/30/16 20:00 98.2 79 22 135/70 93 09/30/16 19:36 95 Nasal Cannula 2.00 09/30/16 19:15 77 I/O 09/30/16 09/30/16 09/30/16 10/01/16 10/01/16 10/01/16 07:00 15:00 23:00 07:00 15:00 23:00 Intake Total 328 ml 420 ml 100 ml 391 ml 200 ml Output Total 575 ml 550 ml 600 ml 500 ml 700 ml Balance -247 ml -130 ml -500 ml -109 ml -500 ml Intake Oral 100 ml 420 ml 100 ml 120 ml 200 ml IV Total 0 ml Tube Feeding 228 ml 241 ml Other 30 ml Output Urine Total 575 ml 550 ml 600 ml 500 ml 700 ml # Voids 1 # Bowel Movements 1 0 0 0 Result Diagram: 10/01/16 0430 09/30/16 1834 Objective Remarks GENERAL: MBMN WM , on BIPAP SKIN: Warm and dry. HEAD: Normocephalic. EYES: No scleral icterus. No injection or drainage. NECK: Supple, trachea midline. No JVD or lymphadenopathy. CARDIOVASCULAR: Regular rate and rhythm without murmurs, gallops, or rubs. RESPIRATORY: Breath sounds equal bilaterally. No accessory muscle use. GASTROINTESTINAL: Abdomen soft, non-tender, MUSCULOSKELETAL: No cyanosis, or edema. BACK: Nontender without obvious deformity. No CVA tenderness. A/P Assessment and Plan RF, s/p Extubation Hypoxia Hypotension-resolved S/P Exp Lap COPD Nicotine use DM PLAN: Supplement 02 to keep sat >88% Broad spectrum Abx Aerosol nebs. Encourage PO Stable pulm status Velasquez Hill MD Oct 01, 2016 19:10
[2016-10-01] MEDS: QUEtiapine FUMARATE 100 MG TAB PO SCH (21:02)
[2016-10-02] VITALS (10 sets, daily range): BP systolic 102–133; BP diastolic 55–75; PULSE 70–92; RESP 18–20; TEMP 97–98.9; O2SAT 88–92
[2016-10-02] MEDS: RESP: ALBUTEROL 2.5 MG/3 ML NEB (PRN) NEB (00:08)
[2016-10-02] MEDS: RESP: ALBUTEROL 2.5 MG/IPRATROPIUM 0.5 MG NEB (SCH) NEB ×3 (04:01→21:15)
[2016-10-02] MEDS: methylPREDNISolone SOD SUCC 125 MG/2 ML VIAL IV PUSH SCH ×2 (05:29→16:47)
[2016-10-02] MEDS: INSULIN NovoLIN REGULAR SUPPLEMENTAL SCALE SQ SCH ×4 (05:29→21:00)
[2016-10-02 06:03] LABS: HEMATOCRIT 41.3 % (39.0-51.0); MEAN CELL VOLUME 88.4 FL (80.0-100.0); MEAN CORPUSCULAR HEMOGLOBIN 29.6 PG (27.0-34.0); MEAN CORPUSCULAR HGB CONC 33.5 % (32.0-36.0); PLATELET COUNT 85 TH/MM3 (150-450); RED BLOOD COUNT 4.68 MIL/MM3 (4.50-5.90); RED CELL DISTRIBUTION WIDTH 15.3 % (11.6-17.2); WHITE BLOOD COUNT 11.7 TH/MM3 (4.0-11.0)
[2016-10-02 06:08] LABS: REVIEW FLAG FINAL
[2016-10-02 06:34] LABS: BICARBONATE 35.8 MEQ/L (21.0-32.0); POTASSIUM 3.2 MEQ/L (3.5-5.1)
[2016-10-02 06:59] LABS: CALCIUM-PROTEIN CORRECTED 8.5 MG/DL (8.5-10.1)
[2016-10-02] MEDS: RESP: BUDESONIDE 0.5 MG/2 ML NEB NEB SCH ×2 (07:40→20:21)
[2016-10-02] MEDS: SODIUM CHLORIDE 0.9% FLUSH 5 ML FLUSH FLUSH SCH ×2 (09:00→21:00)
[2016-10-02] MEDS: INSULIN DETEMIR 100 UNITS/ML VIAL SQ SCH ×2 (09:14→21:30)
[2016-10-02] MEDS: SODIUM CHLORIDE 0.9% FLUSH 10 ML FLUSH IVF SCH (09:15)
[2016-10-02] MEDS: FLUTICASONE PROPIONATE 50 MCG/ACT 16 GM NASAL SPRAY NASAL SCH ×2 (09:15→21:40)
[2016-10-02] MEDS: LISINOPRIL 10 MG TAB PO SCH (09:16)
[2016-10-02] MEDS: PANTOPRAZOLE SOD 40 MG DELAYED RELEASE TAB PO SCH ×2 (09:16→21:00)
[2016-10-02] MEDS: QUEtiapine FUMARATE 25 MG TAB PO SCH (09:16)
[2016-10-02] MEDS: guaiFENesin E.R. 600 MG TAB PO SCH ×2 (09:16→21:28)
[2016-10-02] MEDS: LORATADINE 10 MG TAB PO SCH (09:16)
--- NOTE | 2016-10-02 16:43 | HHI.PR ---
Subjective Remarks f/u for respiratory failure and GI issues. Patient stated he is eating a lot now that NG is out. He is asking for water and purple popsicle. Denied any SOB. continues to have cough. he remains afebrile. Objective Vitals Vital Signs Date Time Temp Pulse Resp B/P Pulse Ox O2 Delivery O2 Flow Rate FiO2 10/02/16 12:00 97.5 85 20 111/69 90 10/02/16 08:56 Nasal Cannula 4.00 10/02/16 08:00 98.9 92 18 102/55 89 10/02/16 07:42 90 Nasal Cannula 4.00 10/02/16 05:32 Nasal Cannula 4.00 10/02/16 04:03 88 Nasal Cannula 4.00 10/02/16 04:00 98.5 81 20 133/67 90 10/02/16 00:12 89 Nasal Cannula 4.00 10/02/16 00:00 97.0 75 20 112/62 89 10/01/16 21:15 Nasal Cannula 3.00 10/01/16 20:00 98.3 81 22 117/64 89 10/01/16 19:29 92 Nasal Cannula 3.00 I/O 10/01/16 10/01/16 10/01/16 10/02/16 10/02/16 10/02/16 07:00 15:00 23:00 07:00 15:00 23:00 Intake Total 391 ml 200 ml 240 ml 120 ml Output Total 500 ml 700 ml 400 ml 400 ml Balance -109 ml -500 ml -160 ml -280 ml Intake Oral 120 ml 200 ml 240 ml 120 ml IV Total 0 ml 0 ml 0 ml Tube Feeding 241 ml Other 30 ml Output Urine Total 500 ml 700 ml 400 ml 400 ml # Bowel Movements 0 0 0 1 Result Diagram: 10/02/16 0504 10/02/16 0504 Objective Remarks GENERAL: in NAD with NG tube in place. CARDIOVASCULAR: Regular rate and rhythm without murmurs, gallops, or rubs. RESPIRATORY: No accessory muscle use. Clear to auscultation bilaterally GASTROINTESTINAL: Soft. Nondistended. No peritoneal signs. Normoactive bowel sounds. MUSCULOSKELETAL: No cyanosis, or edema. BACK: Nontender without obvious deformity. No CVA tenderness. Medications and IVs Current Medications Acetaminophen/ Hydrocodone Bitart ([place] 5-325 Mg) 1 tab ONCE ONCE PO ; Start 09/02/16 at 13:30; Stop 09/02/16 at 13:31; Status DC Ondansetron HCl (Zofran Odt) 4 mg ONCE ONCE PO Last administered on 09/02/16 13:26; Start 09/02/16 at 13:30; Stop 09/02/16 at 13:31; Status DC Ketorolac Tromethamine (Toradol Inj) 60 mg ONCE ONCE IM Last administered on 13:37; Start 09/02/16 at 13:45; Stop 09/02/16 at 13:46; Status DC Diatrizoate Meglum/ Diatrizoate Sod ( Gastroview Liq) 18 ml STK-MED ONCE .ROUTE Last administered on 09/02/16 13:37; Start 09/02/16 at 13:35; Stop at 13:36; Status DC Ondansetron HCl (Zofran Inj) 4 mg ONCE ONCE IV PUSH ; Start 09/02/16 at 15:15; Stop 09/02/16 at 15:15; Status DC Morphine Sulfate (Morphine Inj) 4 mg ONCE ONCE IV PUSH Last administered on 15:20; Start 09/02/16 at 15:15; Stop 09/02/16 at 15:16; Status DC Morphine Sulfate (Morphine Inj) 4 mg ONCE ONCE IV PUSH ; Start 09/02/16 at 15:15 ; Stop 09/02/16 at 15:15; Status DC Ondansetron HCl (Zofran Inj) 4 mg ONCE ONCE IVP ; Start 09/02/16 at 15:15; Stop 09/02/16 at 15:15; Status DC IV Flush (NS Flush) 2 ml UNSCH PRN IVF FLUSH AFTER USING IV ACCESS Last administered on 09/02/16 15:20; Start 09/02/16 at 15:15; Stop 09/02/16 at 18:03; Status DC Iohexol 100 ml 100 ml STK-MED ONCE IV Last administered on 09/02/16 15:57; Start 09/02/16 at 15:57; Stop 09/02/16 at 15:58; Status DC Ciprofloxacin/ Dextrose 200 ml @ 200 mls/hr ONCE ONCE IV Last administered on 09/02/16 16:48; Start 09/02/16 at 16:45; Stop 09/02/16 at 17:44; Status DC Metronidazole 100 ml @ 100 mls/hr ONCE ONCE IV Last administered on 09/02/16 16:48; Start 09/02/16 at 16:45; Stop 09/02/16 at 17:44; Status DC Sodium Chloride (NS 1000 ml Inj) 1,000 ml @ 125 mls/hr Q8H IV Last administered on 09/10/16 16:00; Start 09/02/16 at 18:00; Stop 09/10/16 at 19:08 ; Status DC IV Flush (NS Flush) 2 ml UNSCH PRN FLUSH FLUSH AFTER USING IV ACCESS Last administered on 09/08/16 06:43; Start 09/02/16 at 17:45 IV Flush (NS Flush) 2 ml BID FLUSH Last administered on 10/02/16 09:00; Start 09/02/16 at 21:00 Acetaminophen (Tylenol) 650 mg Q4H PRN PO TEMP > 100.4; Start 09/02/16 at 17:45 Ondansetron HCl (Zofran Inj) 4 mg Q6H PRN IVP NAUSEA OR VOMITING Last administered on 09/08/16 09:04; Start 09/02/16 at 17:45 Magnesium Hydroxide (Milk Of Magnesia Liq) 30 ml Q12H PRN PO CONSTIPATION; Start 09/02/16 at 17:45 Enoxaparin Sodium (Lovenox Inj) 40 mg Q24H SQ Last administered on 10/01/16 16: 31; Start 09/02/16 at 17:45 Naloxone HCl 0.4 mg 0.4 mg UNSCH PRN IV SEE LABEL COMMENTS; Start 09/02/16 at 17 :45 Ciprofloxacin/ Dextrose 200 ml @ 200 mls/hr Q12H IV Last administered on 04:12; Start 09/03/16 at 04:00; Stop 09/11/16 at 11:35; Status DC Metronidazole (Flagyl 500 Mg Inj) 100 ml @ 100 mls/hr Q8H IV Last administered on 09/25/16 05:19; Start 09/02/16 at 23:00; Stop 09/25/16 at 11:50; Status DC Lisinopril (Prinivil) 10 mg DAILY PO Last administered on 10/02/16 09:16; Start 09/03/16 at 09:00 Dextrose (D50w (Vial) Inj) 25 ml UNSCH PRN IV PUSH HYPOGLYCEMIA-SEE COMMENTS Last administered on 09/27/16 16:05; Start 09/02/16 at 18:45; Stop 09/27/16 at 16: 21; Status DC Glucagon (Glucagon Inj) 1 mg UNSCH PRN OTHER HYPOGLYCEMIA-SEE COMMENTS; Start 09/02/16 at 18:45; Stop 09/27/16 at 16:21; Status DC Insulin Aspart (NovoLOG SUPPLEMENTAL SCALE) 1 ACHS SLIDING SCALE SQ Last administered on 09/14/16 22:43; Start 09/02/16 at 21:00; Stop 09/15/16 at 06:27 ; Status DC Morphine Sulfate (Morphine Inj) 2 mg Q3H PRN IV PUSH PAIN 1-5; Start 09/03/16 at 00:30; Stop 09/04/16 at 11:01; Status DC Morphine Sulfate (Morphine Inj) 4 mg Q3H PRN IV PUSH PAIN 6-10 Last administered on 09/04/16 09:49; Start 09/03/16 at 00:30; Stop 09/04/16 at 11:01 ; Status DC Ketorolac Tromethamine (Toradol Inj) 30 mg ONCE ONCE IV PUSH Last administered on 09/03/16 03:50; Start 09/03/16 at 02:15; Stop 09/03/16 at 02:16 ; Status DC Iohexol (Omnipaque 350 Inj) 76 ml STK-MED ONCE IV Last administered on 09:15; Start 09/04/16 at 09:15; Stop 09/04/16 at 09:16; Status DC Hydromorphone HCl (Dilaudid Pf Inj) 1 mg Q3HR PRN IV PUSH PAIN SCALE 6 TO 10 Last administered on 09/04/16 11:55; Start 09/04/16 at 12:00; Stop 09/04/16 at 13:18; Status DC Morphine Sulfate (Morphine Inj) 2 mg Q3H PRN IV PUSH PAIN SCALE 1 TO 6; Start 09/04/16 at 14:00 Morphine Sulfate (Morphine Inj) 4 mg Q3H PRN IV PUSH PAIN SCALE 7 TO 10 Last administered on 09/22/16 01:49; Start 09/04/16 at 13:30 Polyethylene Glycol/ Electrolytes (Colyte Liq) 4,000 ml ONCE ONCE PO Last administered on 09/05/16 16:40; Start 09/05/16 at 16:00; Stop 09/05/16 at 16:01 ; Status DC Promethazine HCl (Phenergan Supp) 25 mg Q6H PRN RECTAL NAUSEA OR VOMITING Last administered on 09/04/16 17:06; Start 09/04/16 at 16:45; Stop 09/05/16 at 21:00 ; Status DC Fluticasone Propionate (Flonase Anuj Spr) 1 spray BID NASAL Last administered on 10/02/16 09:15; Start 09/05/16 at 12:00 Loratadine (Claritin) 10 mg DAILY PO Last administered on 10/02/16 09:16; Start 09/06/16 at 09:00 Promethazine HCl 25 mg 25 mg ONCE ONCE PO Last administered on 09/05/16 22:04 ; Start 09/05/16 at 21:00; Stop 09/05/16 at 21:22; Status DC Azithromycin/ Sodium Chloride (Zithromax Inj/ NS 250 ml Inj) 250 ml @ 250 mls/ hr Q24H IV Last administered on 09/07/16 11:29; Start 09/06/16 at 11:00; Stop 09/07/16 at 14:50; Status DC Guaifenesin (Mucinex Er) 600 mg BID PO Last administered on 09/29/16 09:04; Start 09/06/16 at 11:00; Stop 09/29/16 at 18:15; Status DC Magnesium Citrate (Citroma Liq) 300 ml ONCE ONCE PO Last administered on 14:54; Start 09/06/16 at 14:30; Stop 09/06/16 at 14:31; Status DC Magnesium Citrate (Citroma Liq) 300 ml ONCE ONCE PO ; Start 09/06/16 at 18:00; Stop 09/06/16 at 18:01; Status DC Bisacodyl (Dulcolax Ec) 10 mg DAILY@18,21 PO Last administered on 09/06/16 21: 00; Start 09/06/16 at 18:00; Stop 09/06/16 at 21:01; Status DC Etomidate (Amidate Inj) 20 mg STK-MED ONCE IV PUSH ; Start 09/06/16 at 13:56; Stop 09/06/16 at 14:33; Status DC Ketamine HCl (Ketalar Inj) 500 mg STK-MED ONCE .ROUTE ; Start 09/06/16 at 14:50 ; Stop 09/06/16 at 14:51; Status DC Simethicone (Mylicon Chew) 80 mg ONCE ONCE CHEW Last administered on 22:23; Start 09/06/16 at 19:45; Stop 09/06/16 at 19:46; Status DC Albuterol/ Ipratropium (Duoneb Neb) 1 ampule Q6HR NEB NEB Last administered on 09/10/16 07:34; Start 09/06/16 at 22:00; Stop 09/10/16 at 22:00; Status DC Magnesium Citrate (Citroma Liq) 300 ml ONCE ONCE PO ; Start 09/08/16 at 12:00; Stop 09/08/16 at 12:01; Status DC Magnesium Citrate (Citroma Liq) 300 ml ONCE ONCE PO ; Start 09/08/16 at 18:00; Stop 09/08/16 at 18:01; Status DC Bisacodyl (Dulcolax Ec) 10 mg ONCE ONCE PO ; Start 09/08/16 at 18:00; Stop at 18:01; Status DC Bisacodyl 10 mg 10 mg ONCE ONCE PO ; Start 09/08/16 at 21:00; Stop 09/08/16 at 21:01; Status DC Sodium Chloride (NS 1000 ml Inj) 1,000 ml @ 999 mls/hr BOLUS ONCE IV Last administered on 09/08/16 13:00; Start 09/08/16 at 10:45; Stop 09/08/16 at 11:45 ; Status DC Albuterol Sulfate 1.25 mg 1.25 mg Q6HR NEB NEB Last administered on 09/12/16 09:54; Start 09/08/16 at 16:00; Stop 09/12/16 at 16:00; Status DC Sodium Chloride 500 ml @ 500 mls/hr BOLUS ONCE IV Last administered on 17:45; Start 09/08/16 at 17:30; Stop 09/08/16 at 18:29; Status DC Pantoprazole Sodium/Sodium Chloride (Protonix Inj/NS Inj) 100 ml @ 10 mls/hr CONTINUOUS IV Last administered on 09/09/16 07:29; Start 09/08/16 at 20:00; Stop 09/09/16 at 08:31; Status DC Diatrizoate Meglum/ Diatrizoate Sod 18 ml 18 ml ONCE ONCE PO Last administered on 09/08/16 21:34; Start 09/08/16 at 21:15; Stop 09/08/16 at 21:16 ; Status DC Sodium Chloride (NS 500 ml Inj) 500 ml @ 500 mls/hr BOLUS ONCE IV Last administered on 09/09/16 02:44; Start 09/09/16 at 02:45; Stop 09/09/16 at 03:44 ; Status DC Pantoprazole Sodium 40 mg 40 mg Q12H IV PUSH Last administered on 10/01/16 21: 02; Start 09/09/16 at 21:00; Stop 10/02/16 at 07:45; Status DC Sodium Chloride 500 ml @ 500 mls/hr BOLUS ONCE IV Last administered on 09:00; Start 09/09/16 at 09:00; Stop 09/09/16 at 09:59; Status DC Potassium Chloride 100 ml @ 50 mls/hr BOLUS ONCE IV Last administered on 09/10 09:40; Start 09/10/16 at 08:00; Stop 09/10/16 at 09:59; Status DC Clindamycin Phosphate/Sodium Chloride (Cleocin Inj/NS Inj) 104 ml @ 208 mls/hr Q8H IV Last administered on 09/11/16 06:56; Start 09/10/16 at 13:00; Stop at 11:35; Status DC Midazolam HCl 2 mg 2 mg STK-MED ONCE .ROUTE ; Start 09/10/16 at 19:03; Stop at 19:04; Status DC Lactated Ringer's 1,000 ml @ 125 mls/hr Q8H IV Last administered on 09/12/16 04:00; Start 09/10/16 at 20:00; Stop 09/12/16 at 18:36; Status DC Fentanyl Citrate 250 ml @ 0 mls/hr TITRATE IV Last administered on 09/20/16 21 :04; Start 09/10/16 at 19:45; Stop 09/25/16 at 11:50; Status DC Midazolam HCl (Versed Inj) 100 ml @ 0 mls/hr TITRATE IV Last administered on 07:16; Start 09/10/16 at 20:00; Stop 09/15/16 at 13:04; Status DC Albumin Human 25 gm 25 gm NOW ONCE IV Last administered on 09/10/16 21:15; Start 09/10/16 at 20:00; Stop 09/10/16 at 20:01; Status DC Norepinephrine Bitartrate 250 ml @ As Directed STK-MED ONCE IV ; Start at 19:45; Stop 09/10/16 at 19:46; Status DC Sodium Chloride 1,000 ml @ 999 mls/hr BOLUS ONCE IV Last administered on 09/10 21:16; Start 09/10/16 at 20:00; Stop 09/10/16 at 21:00; Status DC Norepinephrine Bitartrate (Levophed-Dextrose Drip) 250 ml @ 0 mls/hr TITRATE IV Last administered on 09/11/16 12:30; Start 09/10/16 at 20:00; Stop 09/11/16 at 23:56; Status DC Terbutaline Sulfate (Brethine Inj) 1 mg UNSCH PRN SQ For Extravasation; Start 09/10/16 at 20:00; Stop 09/16/16 at 13:48; Status DC Etomidate (Amidate Inj) 20 mg STK-MED ONCE .ROUTE ; Start 09/10/16 at 20:04; Stop 09/10/16 at 20:05; Status DC Fentanyl Citrate 200 mcg 200 mcg STK-MED ONCE .ROUTE ; Start 09/10/16 at 20:06; Stop 09/10/16 at 20:07; Status DC Sodium Chloride (NS 1000 ml Inj) 1,000 ml @ 0 mls/hr NOW ONCE IV Last administered on 09/10/16 21:17; Start 09/10/16 at 21:00; Stop 09/10/16 at 21:01 ; Status DC Etomidate (Amidate Inj) 25 mg NOW ONCE IV PUSH Last administered on 09/10/16 20:10; Start 09/10/16 at 21:15; Stop 09/10/16 at 21:16; Status DC Rocuronium [place] (Zemuron Inj) 50 mg NOW ONCE IV Last administered on 20:10; Start 09/10/16 at 21:15; Stop 09/10/16 at 21:16; Status DC Chlorhexidine Gluconate 15 ml 15 ml BID@08,20 MT Last administered on 09/29/16 20:00; Start 09/11/16 at 08:00; Stop 09/30/16 at 21:17; Status DC Sodium Chloride 1,000 ml @ 0 mls/hr BOLUS ONCE IV Last administered on 00:00; Start 09/10/16 at 22:45; Stop 09/10/16 at 22:46; Status DC Parenteral Electrolytes 1,000 ml @ 500 mls/hr Q2H IV Last administered on 09/11 01:53; Start 09/11/16 at 00:00; Stop 09/11/16 at 02:00; Status DC Sodium Chloride (NS 1000 ml Inj) 1,000 ml @ 0 mls/hr BOLUS ONCE IV Last administered on 09/11/16 06:56; Start 09/11/16 at 06:00; Stop 09/11/16 at 06:01 ; Status DC Albumin Human 25 gm 25 gm STK-MED ONCE .ROUTE Last administered on 09/11/16 10 :06; Start 09/11/16 at 10:06; Stop 09/11/16 at 10:07; Status DC Calcium Chloride/ Sodium Chloride (Calcium Chloride Inj/NS Inj) 120 ml @ 120 mls/hr ONCE ONCE IV Last administered on 09/11/16 11:08; Start 09/11/16 at 12 :00; Stop 09/11/16 at 12:59; Status DC Albumin Human (Albumin 5% Inj) 25 gm STK-MED ONCE .ROUTE Last administered on 10:40; Start 09/11/16 at 10:40; Stop 09/11/16 at 10:41; Status DC Albumin Human 12.5 gm 12.5 gm STK-MED ONCE IV Last administered on 09/11/16 11 :00; Start 09/11/16 at 10:42; Stop 09/11/16 at 10:43; Status DC Cefepime HCl 2000 mg/Sodium Chloride 100 ml @ 200 mls/hr Q8H IV Last administered on 09/22/16 04:15; Start 09/11/16 at 13:00; Stop 09/22/16 at 09:51 ; Status DC Vancomycin HCl 1750 mg/Sodium Chloride 517.5 ml @ 258.75 mls/ hr ONCE ONCE IV Last administered on 09/11/16 13:30; Start 09/11/16 at 12:00; Stop 09/11/16 at 13:59; Status DC Pharmacy Profile Note 0 ml @ 0 mls/hr UNSCH OTHER ; Start 09/11/16 at 11:45; Stop 09/13/16 at 13:04; Status DC Vancomycin HCl/ Sodium Chloride (Vancomycin Inj/ NS 500 ml Inj) 517.5 ml @ 258.75 mls/ hr Q12H IV Last administered on 09/13/16 00:11; Start 09/12/16 at 00:00; Stop 09/13/16 at 12:47; Status DC Miscellaneous Information SPECIFIC LAB TO BE HAI... ONCE ONCE XX Last administered on 09/13/16 11:25; Start 09/13/16 at 11:45; Stop 09/13/16 at 11:46 ; Status DC Milrinone Lactate 20 mg/Sodium Chloride 100 ml @ 8.12 mls/hr [id number] IV Last administered on 09/17/16 22:23; Start 09/11/16 at 17:00; Stop 09/18/16 at 17:19 ; Status DC Vasopressin/ Dextrose (Pitressin Inj/ D5W 100 ml Inj) 100 ml @ 1.5 mls/hr Q24H IV Last administered on 09/12/16 17:00; Start 09/11/16 at 17:00; Stop at 06:27; Status DC Hydrocortisone Sodium Succinate 50 mg 50 mg Q6HR IV PUSH Last administered on 12:00; Start 09/11/16 at 18:00; Stop 09/15/16 at 17:07; Status DC Norepinephrine Bitartrate/ Dextrose (Levophed Inj/ D5W Inj) 266 ml @ 0 mls/hr TITRATE IV Last administered on 09/13/16 20:30; Start 09/11/16 at 23:45; Stop 09/16/16 at 13:46; Status DC Albumin Human (Albumin 5% Inj) 12.5 gm STK-MED ONCE IV Last administered on 00:21; Start 09/12/16 at 00:21; Stop 09/12/16 at 00:22; Status DC Albumin Human (Albumin 5% Inj) 12.5 gm STK-MED ONCE IV ; Start 09/12/16 at 00:22 ; Stop 09/12/16 at 00:23; Status DC Albumin Human (Albumin 5% Inj) 25 gm NOW ONCE IV Last administered on 00:30; Start 09/12/16 at 00:30; Stop 09/12/16 at 00:31; Status DC Sodium Bicarbonate (Sodium Bicarbonate 8.4% Inj) 100 meq STK-MED ONCE .ROUTE ; Start 09/12/16 at 02:56; Stop 09/12/16 at 02:57; Status DC Sodium Bicarbonate (Sodium Bicarbonate 8.4% Inj) 100 meq NOW ONCE IV Last administered on 09/12/16 03:03; Start 09/12/16 at 03:15; Stop 09/12/16 at 03:16 ; Status DC Sodium Bicarbonate 100 meq 100 meq ONCE ONCE IV PUSH ; Start 09/12/16 at 03:15 ; Stop 09/12/16 at 03:16; Status UNV Epinephrine HCl/ Dextrose (Adrenalin (1:1000) Inj/D5W Inj) 250 ml @ 0 mls/hr TITRATE IV Last administered on 09/12/16 08:54; Start 09/12/16 at 06:30; Stop 09/15/16 at 06:27; Status DC Epinephrine HCl (Adrenalin (1:1000) Inj) 1 mg STK-MED ONCE .ROUTE Last administered on 09/12/16 04:40; Start 09/12/16 at 04:40; Stop 09/12/16 at 04:41 ; Status DC Digoxin 0.25 mg 0.25 mg ONCE ONCE IV PUSH Last administered on 09/12/16 08:00 ; Start 09/12/16 at 08:00; Stop 09/12/16 at 08:01; Status DC Fluconazole/ Sodium Chloride 200 ml @ 100 mls/hr Q24H IV Last administered on 09/21/16 11:59; Start 09/12/16 at 12:00; Stop 09/22/16 at 09:51; Status DC Potassium Chloride 100 ml @ 25 mls/hr BOLUS ONCE IV Last administered on 09/12 15:30; Start 09/12/16 at 15:30; Stop 09/12/16 at 19:29; Status DC Magnesium Sulfate/ Dextrose 100 ml @ 100 mls/hr ONCE ONCE IV Last administered on 09/12/16 15:30; Start 09/12/16 at 15:30; Stop 09/12/16 at 16:29 ; Status DC Amiodarone HCl 150 mg/Dextrose 100 ml @ 600 mls/hr ONCE ONCE IV Last administered on 09/12/16 16:16; Start 09/12/16 at 15:30; Stop 09/12/16 at 15:39 ; Status DC Amiodarone HCl 900 mg/Dextrose 500 ml @ 0 mls/hr CONTINUOUS IV ; Start 09/12/16 at 15:30; Stop 09/12/16 at 15:30; Status DC Amiodarone HCl/ Dextrose (Cordarone Inj/ D5W (Grace) Inj) 250 ml @ 0 mls/hr CONTINUOUS IV Last administered on 09/15/16 16:47; Start 09/12/16 at 15:30; Stop 09/16/16 at 09:39; Status DC Furosemide (Lasix Inj) 40 mg STK-MED ONCE .ROUTE Last administered on 15:40; Start 09/12/16 at 15:40; Stop 09/12/16 at 15:41; Status DC Lidocaine HCl (Xylocaine 1% Inj (50 ml)) 50 ml STK-MED ONCE .ROUTE ; Start 09/12 at 16:45; Stop 09/12/16 at 16:46; Status DC Furosemide (Lasix Inj) 40 mg ONCE ONCE IV PUSH ; Start 09/12/16 at 18:45; Stop 09/12/16 at 18:46; Status DC Furosemide 60 mg 60 mg ONCE ONCE IV PUSH Last administered on 09/13/16 08:56 ; Start 09/13/16 at 08:30; Stop 09/13/16 at 08:31; Status DC Lactated Ringer's 1,000 ml @ As Directed STK-MED ONCE IV ; Start 09/10/16 at 11 :15; Stop 09/13/16 at 11:16; Status DC Parenteral Electrolytes 2,000 ml @ As Directed STK-MED ONCE IV ; Start at 11:15; Stop 09/13/16 at 11:16; Status DC Potassium Chloride 100 ml @ 50 mls/hr Q2H PRN IV For Potassium 2.8 - 3.2 mEq/ L Last administered on 09/22/16 06:11; Start 09/13/16 at 11:45; Stop 09/30/16 at 21:17; Status DC Potassium Chloride 100 ml @ 50 mls/hr Q2H PRN IV For Potassium 2.8 - 3.2 mEq/L ; Start 09/13/16 at 11:45; Stop 09/30/16 at 21:17; Status DC Potassium Chloride 100 ml @ 25 mls/hr UNSCH PRN IV For Potassium 3.3 - 3.5 mEq /L Last administered on 09/24/16 05:55; Start 09/13/16 at 11:45; Stop 09/30/16 at 21:17; Status DC Potassium Chloride 100 ml @ 50 mls/hr Q2H PRN IV For Potassium 3.3 - 3.5 mEq/ L Last administered on 09/15/16t 19:24; Start 09/13/16 at 11:45; Stop 09/30/16 at 21:17; Status DC Magnesium Sulfate/ Sodium Chloride (Magnesium Sulfate Inj/NS Inj) 100 ml @ 50 mls/hr UNSCH PRN IV For Magnesium 0.9 - 1.1 mg/dL; Start 09/13/16 at 11:45; Stop 09/30/16 at 21:17; Status DC Magnesium Oxide 800 mg 800 mg UNSCH PRN PO For Magnesium 1.2 - 1.6 mg/dL; Start 09/13/16 at 11:45; Stop 09/30/16 at 21:17; Status DC Magnesium Sulfate/ Sodium Chloride (Magnesium Sulfate Inj/NS Inj) 100 ml @ 50 mls/hr UNSCH PRN IV For Magnesium 1.2 - 1.6 mg/dL; Start 09/13/16 at 11:45; Stop 09/30/16 at 21:17; Status DC Potassium Phosphate 2000 mg 2,000 mg Q4H PRN PO For Phosphorus < 2.5 mg/dL Last administered on 09/21/16 12:46; Start 09/13/16 at 11:45; Stop 09/30/16 at 21:17; Status DC Sodium Phosphate/ Sodium Chloride (Sodium Phosphate Inj/NS 250 ml Inj) 250 ml @ 42 mls/hr UNSCH PRN IV For Phosphorus < 2.5 mg/dL Last administered on 07:18; Start 09/13/16 at 11:45; Stop 09/30/16 at 21:17; Status DC Potassium Phosphate 2000 mg 2,000 mg UNSCH PRN PO/TUBE SEE LABEL COMMENTS; Start 09/13/16 at 11:45; Stop 09/30/16 at 21:17; Status DC Potassium Phosphate 30 mmol/ Sodium Chloride 260 ml @ 42 mls/hr UNSCH PRN IV SEE LABEL COMMENTS Last administered on 09/25/16 09:37; Start 09/13/16 at 11:45 ; Stop 09/30/16 at 21:17; Status DC Vancomycin HCl/ Sodium Chloride (Vancomycin Inj/ NS 500 ml Inj) 517.5 ml @ 258.75 mls/ hr Q18H IV ; Start 09/13/16 at 22:00; Stop 09/13/16 at 22:00; Status DC Miscellaneous Information SPECIFIC LAB TO BE DRAWN:[facility]... ONCE ONCE XX ; Start 09/14/16 at 15:45; Stop 09/14/16 at 15:46; Status Cancel Epinephrine HCl (EPINEPHrine (1:10,000) INJ) 1 mg STK-MED ONCE IV ; Start at 05:00; Stop 09/13/16 at 14:07; Status DC Furosemide 60 mg 60 mg ONCE ONCE IV PUSH Last administered on 09/14/16 11:41 ; Start 09/14/16 at 11:30; Stop 09/14/16 at 11:31; Status DC Multivitamins/ Folic Acid/Amino Acids/ Electrolytes/ Dextrose (Mvi-12 Inj/ Folvite Inj/ Clinimix E 11/18) 1,010.2 ml @ 30 mls/hr Q24H IV-CENTRAL Last administered on 09/15/16 20:46; Start 09/14/16 at 20:00; Stop 09/16/16 at 19:59 ; Status DC Dextrose (D50w (Vial) Inj) 25 ml UNSCH PRN IV PUSH HYPOGLYCEMIA-SEE COMMENTS; Start 09/15/16 at 06:30; Stop 09/15/16 at 17:07; Status DC Insulin Human Regular (NovoLIN R SUPPLEMENTAL SCALE) 1 Q4HR SQ Last administered on 09/15/16 16:00; Start 09/15/16 at 08:00; Stop 09/15/16 at 17:07 ; Status DC Albuterol/ Ipratropium (Duoneb Neb) 1 ampule Q6HR NEB NEB Last administered on 09/22/16 16:38; Start 09/15/16 at 16:00; Stop 09/22/16 at 17:19; Status DC Albuterol Sulfate (Albuterol Neb) 2.5 mg Q2HR NEB PRN NEB dyspnea Last administered on 10/02/16 00:08; Start 09/15/16 at 14:00 Albuterol/ Ipratropium (Duoneb Neb) 1 ampule Q4HR NEB NEB ; Start 09/15/16 at 16:00; Stop 09/15/16 at 16:00; Status DC Albuterol/ Ipratropium (Duoneb Neb) 1 ampule Q2HR NEB PRN NEB dyspnea; Start at 13:30; Stop 09/15/16 at 13:30; Status DC Budesonide (Pulmicort Respule Neb) 0.5 mg Q12HR NEB NEB Last administered on 07:40; Start 09/15/16 at 20:00 Hydrocortisone Sodium Succinate (SoluCORTEF INJ) 50 mg Q8HR IV PUSH Last administered on 09/19/16 05:42; Start 09/15/16 at 22:00; Stop 09/19/16 at 09:39 ; Status DC Insulin Detemir (Levemir Inj) 12 units Q12HR SQ Last administered on 09/16/16 08:16; Start 09/15/16 at 21:00; Stop 09/16/16 at 09:39; Status DC Dextrose (D50w (Vial) Inj) 25 ml UNSCH PRN IV PUSH HYPOGLYCEMIA-SEE COMMENTS; Start 09/15/16 at 17:15; Status UNV Glucagon (Glucagon Inj) 1 mg UNSCH PRN OTHER HYPOGLYCEMIA-SEE COMMENTS; Start 09/15/16 at 17:15; Status UNV Insulin Human Regular 1 1 Q4HR SQ Last administered on 09/27/16 08:09; Start at 20:00; Stop 09/27/16 at 16:21; Status DC Calcium Gluconate 2 gm/Sodium Chloride 120 ml @ 120 mls/hr ONCE ONCE IV Last administered on 09/16/16 00:58; Start 09/16/16 at 00:45; Stop 09/16/16 at 01:44 ; Status DC Potassium Chloride 100 ml @ 50 mls/hr BOLUS ONCE IV Last administered on 09/16 12:26; Start 09/16/16 at 09:15; Stop 09/16/16 at 11:14; Status DC Magnesium Sulfate/ Dextrose 100 ml @ 100 mls/hr Q1H IV Last administered on 12:28; Start 09/16/16 at 10:00; Stop 09/16/16 at 11:59; Status DC Dexmedetomidine HCl (Precedex Inj) 50 ml @ 0 mls/hr TITRATE IV Last administered on 09/21/16 19:56; Start 09/16/16 at 09:45; Stop 09/21/16 at 21:00 ; Status DC Insulin Detemir 20 units 20 units Q12HR SQ Last administered on 09/16/16 21:19 ; Start 09/16/16 at 21:00; Stop 09/17/16 at 09:20; Status DC Multivitamins 10 ml/Folic Acid 1 mg/Amino Acids/ Electrolytes/ Dextrose 2,010.2 ml @ 30 mls/hr Q24H IV-CENTRAL Last administered on 09/17/16 20:37; Start at 20:00; Stop 09/18/16 at 12:13; Status DC Fat Emulsion Intravenous 250 ml @ 10 mls/hr Q24H IV-CENTRAL Last administered on 09/21/16 21:08; Start 09/16/16 at 20:00; Stop 09/22/16 at 19:20; Status DC Norepinephrine Bitartrate (Levophed-Dextrose Drip) 250 ml @ 0 mls/hr TITRATE IV Last administered on 09/17/16 06:50; Start 09/16/16 at 13:45; Stop 09/30/16 at 21:17; Status DC Terbutaline Sulfate (Brethine Inj) 1 mg UNSCH PRN SQ For Extravasation; Start 09/16/16 at 13:45 Midazolam HCl (Versed Inj) 5 mg ONCE ONCE IV PUSH Last administered on 13:45; Start 09/16/16 at 13:45; Stop 09/16/16 at 13:47; Status DC Fentanyl Citrate (fentaNYL INJ) 50 mcg ONCE ONCE IV PUSH Last administered on 09/16/16 13:45; Start 09/16/16 at 13:45; Stop 09/16/16 at 13:47; Status DC Sodium Chloride (NS Flush) DAILY IVF Last administered on 10/02/16 09:15; Start 09/17/16 at 09:00 Sodium Chloride UNSCH PRN IVF SEE PROTOCOL; Start 09/16/16 at 15:15 Potassium Phosphate/Sodium Chloride (Potassium Phosphate Inj/NS Inj) 155 ml @ 38.75 mls/ hr ONCE ONCE IV Last administered on 09/17/16 10:00; Start at 10:00; Stop 09/17/16 at 13:59; Status DC Insulin Detemir (Levemir Inj) 25 units Q12HR SQ Last administered on 09/18/16 09:00; Start 09/17/16 at 21:00; Stop 09/18/16 at 12:01; Status DC Insulin Detemir 10 units 10 units Q12HR SQ Last administered on 09/19/16 08:03 ; Start 09/18/16 at 21:00; Stop 09/19/16 at 09:39; Status DC Multivitamins/ Folic Acid/Amino Acids/ Electrolytes/ Dextrose (Mvi-12 Inj/ Folvite Inj/ Clinimix E 11/18) 1,010.2 ml @ 30 mls/hr Q24H IV-CENTRAL Last administered on 09/21/16 21:08; Start 09/18/16 at 20:00; Stop 09/22/16 at 13:10 ; Status DC Adenosine (Adenocard Inj) 6 mg STK-MED ONCE .ROUTE ; Start 09/19/16 at 01:35; Stop 09/19/16 at 02:16; Status DC Hydrocortisone Sodium Succinate (SoluCORTEF INJ) 50 mg BID IV PUSH Last administered on 09/21/16 08:34; Start 09/19/16 at 21:00; Stop 09/21/16 at 10:18 ; Status DC Insulin Detemir (Levemir Inj) 8 units Q12HR SQ Last administered on 09/26/16 10 :31; Start 09/19/16 at 21:00; Stop 09/26/16 at 10:48; Status DC Bisacodyl (Dulcolax Supp) 10 mg NOW ONCE RECTAL Last administered on 13:15; Start 09/20/16 at 13:15; Stop 09/20/16 at 13:16; Status DC Methylprednisolone Sodium Succinate (SoluMEDROL INJ) 80 mg Q8HR IV PUSH Last administered on 09/26/16 06:17; Start 09/21/16 at 11:00; Stop 09/26/16 at 10:49; Status DC Furosemide (Lasix Inj) 20 mg BID@09,18 IV PUSH Last administered on 09/25/16 08 :45; Start 09/21/16 at 18:00; Stop 09/25/16 at 11:41; Status DC Furosemide 20 mg 20 mg STAT ONCE IV PUSH Last administered on 09/21/16 12:30 ; Start 09/21/16 at 12:15; Stop 09/21/16 at 12:16; Status DC Dexmedetomidine HCl 400 mcg/ Sodium Chloride 100 ml @ 0 mls/hr TITRATE IV Last administered on 09/22/16 03:27; Start 09/21/16 at 20:15; Stop 09/22/16 at 04:04 ; Status DC Dexmedetomidine HCl/Sodium Chloride (Precedex Inj/NS 250 ml Inj) 250 ml @ 0 mls/ hr TITRATE IV Last administered on 09/24/16 13:44; Start 09/22/16 at 04:15; Stop 09/25/16 at 11:50; Status DC Potassium Bicarb/ Potassium Chloride (K-Lyte Cl Eff) 25 meq ONCE ONCE PO Last administered on 09/22/16 11:15; Start 09/22/16 at 10:45; Stop 09/22/16 at 10:54; Status DC Potassium Bicarb/ Potassium Chloride (K-Lyte Cl Eff) 25 meq Q12HR NG Last administered on 09/25/16 08:45; Start 09/22/16 at 10:45; Stop 09/25/16 at 11:41; Status DC Acetazolamide Sodium 500 mg 500 mg ONCE ONCE IV PUSH Last administered on 09/22 11:16; Start 09/22/16 at 10:45; Stop 09/22/16 at 10:54; Status DC Multivitamins/ Folic Acid/Amino Acids/ Electrolytes/ Dextrose (Mvi-12 Inj/ Folvite Inj/ Clinimix E 11/18) 2,010.2 ml @ 60 mls/hr Q24H IV-CENTRAL ; Start at 20:00; Stop 09/22/16 at 20:00; Status DC Acetazolamide Sodium (Diamox Inj) 500 mg ONCE ONCE IV PUSH Last administered on 09/23/16 15:36; Start 09/23/16 at 14:15; Stop 09/23/16 at 14:21; Status DC Quetiapine Fumarate (SEROquel) 50 mg BID PO Last administered on 09/25/16 08:45 ; Start 09/24/16 at 11:00; Stop 09/25/16 at 11:41; Status DC Water (Free Water) 200 ml Q4HR G-TUBE Last administered on 09/25/16 12:00; Start 09/24/16 at 12:00; Stop 09/25/16 at 14:00; Status DC Albuterol/ Ipratropium (Duoneb Neb) 1 ampule Q6HR NEB NEB Last administered on 09/29/16 16:00; Start 09/25/16 at 16:00; Stop 09/29/16 at 16:06; Status DC Quetiapine Fumarate (SEROquel) 25 mg BID PO Last administered on 09/28/16 08:34 ; Start 09/25/16 at 21:00; Stop 09/28/16 at 11:32; Status DC Insulin Detemir (Levemir Inj) 15 units Q12HR SQ ; Start 09/26/16 at 21:00; Stop 09/26/16 at 21:00; Status DC Insulin Detemir (Levemir Inj) 12 units Q12HR SQ Last administered on 09/27/16 08:08; Start 09/26/16 at 21:00; Stop 09/27/16 at 16:21; Status DC Methylprednisolone Sodium Succinate 60 mg 60 mg Q8HR IV PUSH Last administered on 09/28/16 04:52; Start 09/26/16 at 14:00; Stop 09/28/16 at 08:37; Status DC Sodium Chloride/ Sterile Water (Sodium Chloride 23.4% Inj/Sterile Water For Inj ) 1,009.625 ml @ 42 mls/hr Q24H IV Last administered on 09/28/16 15:49; Start 09/27/16 at 16:00; Stop 09/29/16 at 16:06; Status DC Insulin Detemir (Levemir Inj) 8 units Q12HR SQ Last administered on 10/02/16 09 :14; Start 09/27/16 at 21:00 Dextrose (D50w (Vial) Inj) 25 ml UNSCH PRN IV PUSH HYPOGLYCEMIA-SEE COMMENTS; Start 09/27/16 at 16:30 Glucagon (Glucagon Inj) 1 mg UNSCH PRN OTHER HYPOGLYCEMIA-SEE COMMENTS; Start 09/27/16 at 16:30 Insulin Human Regular (NovoLIN R SUPPLEMENTAL SCALE) 1 ACHS SLIDING SCALE SQ Last administered on 10/02/16 11:00; Start 09/27/16 at 21:00 Hydralazine HCl (Apresoline Inj) 10 mg Q1HR PRN IV PUSH SBP>160, DBP>90 Last administered on 09/28/16 16:07; Start 09/27/16 at 16:30 Labetalol HCl (Trandate Inj) 10 mg Q1HR PRN IV PUSH SBP>160, DBP>90, HR>65; Start 09/27/16 at 16:30; Stop 09/30/16 at 21:17; Status DC Nitroglycerin (Nitroglycerin 2% Oint) 2 inch Q6HR PRN TOPICAL SBP>160, DBP>90 Last administered on 09/28/16 17:22; Start 09/27/16 at 16:30 Methylprednisolone Sodium Succinate (SoluMEDROL INJ) 60 mg Q12H IV PUSH Last administered on 10/02/16 05:29; Start 09/28/16 at 17:00 Quetiapine Fumarate (SEROquel) 25 mg DAILY PO Last administered on 10/02/16 09: 16; Start 09/29/16 at 09:00 Quetiapine Fumarate (SEROquel) 50 mg HS PO Last administered on 10/01/16 21:02 ; Start 09/28/16 at 21:00 Miscellaneous (Pill Splitter) 1 ea UNSCH PRN OTHER SEE LABEL COMMENTS; Start at 12:00 Albuterol/ Ipratropium (Duoneb Neb) 1 ampule Q6HR NEB NEB Last administered on 10/02/16 07:41; Start 09/29/16 at 22:00 Guaifenesin (Mucinex Er) 600 mg BID PO Last administered on 10/02/16 09:16; Start 09/29/16 at 21:00 Potassium Chloride (KCl) 30 meq ONCE ONCE PO Last administered on 10/01/16 10: 05; Start 10/01/16 at 08:45; Stop 10/01/16 at 08:53; Status DC Pantoprazole Sodium (Protonix) 40 mg BID PO Last administered on 10/02/16 09:16 ; Start 10/02/16 at 09:00 Date of Insertion: Sep 16, 2016 Date of Removal: Sep 25, 2016 Line: Central Venous Catheter Side: Left Location: Internal, Jugular A/P Assessment and Plan Toxic metabolic encephalopathy -Due to patient's medical condition was being treated for. -Resolved. -Status post off Precedex drip and fentanyl drip. -Seroquel 25 twice a day. Wean down as tolerated A. 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 -Accounting Systems Analyst is following. Patient currently on nasal cannula. Patient on Solu-Medrol. -DuoNeb therapy every 6 hours with albuterol every 2 hours for breakthrough dyspnea -Pulmicort twice a day -Right chest tube discontinued 09/18 -Left chest tube discontinued 09/19 Postop day #21 exploratory lap lysis of adhesions - Dr. Henriquez Chronic pancreatitis Abdominal ascites Internal hemorrhoids Elevated transaminases -Status post EGD by GI. - Pathology revealed chronic gastritis inflammation -Says post colonoscopy by GI 09/06 -incomplete splenic flexure normal mucosa. Internal hemorrhoids. -NG tube removed and tolerating diet very well. ADA diet/. Pured With honey thickened liquids. -Protonix 40 mg IV twice a day -Surgery signed off. Diabetes mellitus -Sliding-scale insulin with Accu-Cheks every 4 hours maintain euglycemia/High dose . -On Levemir 15 units twice a day. Holding home medication glipizide 10 mg by mouth daily Leukocytosis Anemia Right cephalic/basilic superficial thrombus -Follow CBC. -On Lovenox 40 subcutaneous daily SIRS -ID has stopped all antibiotics since 09/22 and patient continued to do well. -Multiple cultures obtained and all negative. Hypernatremia -Encourage more free water intake but per patient difficult due to NG tube. -Patient on IV fluids. -We'll continue to monitor and trend sodium. -will d/w surgery in regards to NG Diarrhea -C. difficile negative. Decondition -Due to severity of illness. Will consult PT and OT. Prophylaxis - GI - Protonix IV twice a day - DVT - SCD/Lovenox Discharge Planning Tolerating diet. c/d benjy for voiding trial. Milady Saeed MD Oct 02, 2016 16:43
[2016-10-02] MEDS: ENOXAPARIN SODIUM 40 MG/0.4 ML SYRINGE SQ SCH (16:46)
--- NOTE | 2016-10-02 20:08 | HHI.PR ---
Subjective Remarks %, maintans sat61 YOWM with Pancreatitis,COPD,Nicotine use had Exp Lap Tolerates PO Breathing better No new complaint NGT Removed On 4LNC Objective Vital Signs Vital Signs Date Time Temp Pulse Resp B/P Pulse Ox O2 Delivery O2 Flow Rate FiO2 10/02/16 16:00 98.6 70 18 128/73 89 10/02/16 12:00 97.5 85 20 111/69 90 10/02/16 08:56 Nasal Cannula 4.00 10/02/16 08:00 98.9 92 18 102/55 89 10/02/16 07:42 90 Nasal Cannula 4.00 10/02/16 05:32 Nasal Cannula 4.00 10/02/16 04:03 88 Nasal Cannula 4.00 10/02/16 04:00 98.5 81 20 133/67 90 10/02/16 00:12 89 Nasal Cannula 4.00 10/02/16 00:00 97.0 75 20 112/62 89 10/01/16 21:15 Nasal Cannula 3.00 I/O 10/01/16 10/01/16 10/01/16 10/02/16 10/02/16 10/02/16 07:00 15:00 23:00 07:00 15:00 23:00 Intake Total 391 ml 200 ml 240 ml 120 ml 480 ml Output Total 500 ml 700 ml 400 ml 400 ml 500 ml Balance -109 ml -500 ml -160 ml -280 ml -20 ml Intake Oral 120 ml 200 ml 240 ml 120 ml 480 ml IV Total 0 ml 0 ml 0 ml Tube Feeding 241 ml Other 30 ml Output Urine Total 500 ml 700 ml 400 ml 400 ml 500 ml # Bowel Movements 0 0 0 1 0 Result Diagram: 10/02/16 0504 10/02/16 0504 Objective Remarks GENERAL: MBMN WM , on BIPAP SKIN: Warm and dry. HEAD: Normocephalic. EYES: No scleral icterus. No injection or drainage. NECK: Supple, trachea midline. No JVD or lymphadenopathy. CARDIOVASCULAR: Regular rate and rhythm without murmurs, gallops, or rubs. RESPIRATORY: Breath sounds equal bilaterally. No accessory muscle use. GASTROINTESTINAL: Abdomen soft, non-tender, MUSCULOSKELETAL: No cyanosis, or edema. BACK: Nontender without obvious deformity. No CVA tenderness. A/P Assessment and Plan RF, s/p Extubation Hypoxia Hypotension-resolved S/P Exp Lap COPD Nicotine use DM PLAN: Supplement 02 to keep sat >88% Aerosol nebs. Encourage PO Stable pulm status Velasquez Hill MD Oct 02, 2016 20:08
[2016-10-02] MEDS: QUEtiapine FUMARATE 100 MG TAB PO SCH (21:29)
[2016-10-03] VITALS: BP 123/72; PULSE 71; RESP 17; TEMP 97.8; O2SAT 91
[2016-10-03] MEDS: RESP: ALBUTEROL 2.5 MG/IPRATROPIUM 0.5 MG NEB (SCH) NEB ×4 (03:43→19:39)
[2016-10-03] MEDS: methylPREDNISolone SOD SUCC 125 MG/2 ML VIAL IV PUSH SCH ×2 (04:24→16:19)
[2016-10-03 05:29] LABS: HEMATOCRIT 45.9 % (39.0-51.0); MEAN CELL VOLUME 89.2 FL (80.0-100.0); MEAN CORPUSCULAR HEMOGLOBIN 28.6 PG (27.0-34.0); MEAN CORPUSCULAR HGB CONC 32.1 % (32.0-36.0); PLATELET COUNT 74 TH/MM3 (150-450); RED BLOOD COUNT 5.15 MIL/MM3 (4.50-5.90); RED CELL DISTRIBUTION WIDTH 15.3 % (11.6-17.2); WHITE BLOOD COUNT 16.3 TH/MM3 (4.0-11.0)
[2016-10-03 05:32] LABS: BICARBONATE 33.7 MEQ/L (21.0-32.0); POTASSIUM 3.6 MEQ/L (3.5-5.1)
[2016-10-03 06:01] LABS: CALCIUM-PROTEIN CORRECTED 8.5 MG/DL (8.5-10.1)
[2016-10-03 06:05] LABS: REVIEW FLAG FINAL
[2016-10-03] MEDS: INSULIN NovoLIN REGULAR SUPPLEMENTAL SCALE SQ SCH ×4 (06:05→21:00)
--- NOTE | 2016-10-03 08:31 | HHI.PR ---
Subjective Remarks f/u for respiratory failure. patient stated he is doing better and was moving more yesterday. tolerating PO well. He has no other complaints. denied any SOB. + cough. remains afebrile. Objective Vitals Vital Signs Date Time Temp Pulse Resp B/P Pulse Ox O2 Delivery O2 Flow Rate FiO2 10/03/16 00:00 97.8 71 17 123/72 91 10/02/16 21:16 92 Nasal Cannula 4.00 10/02/16 20:00 98.0 79 18 131/75 91 10/02/16 16:00 98.6 70 18 128/73 89 10/02/16 12:00 97.5 85 20 111/69 90 10/02/16 08:56 Nasal Cannula 4.00 I/O 10/02/16 10/02/16 10/02/16 10/03/16 10/03/16 10/03/16 07:00 15:00 23:00 07:00 15:00 23:00 Intake Total 120 ml 480 ml 240 ml 240 ml Output Total 400 ml 500 ml 200 ml Balance -280 ml -20 ml 40 ml 240 ml Intake Oral 120 ml 480 ml 240 ml 240 ml IV Total 0 ml 0 ml 0 ml Output Urine Total 400 ml 500 ml 200 ml # Voids 2 # Bowel Movements 1 0 1 Result Diagram: 10/03/16 0439 10/03/169 Objective Remarks GENERAL: in NAD with NG tube in place. CARDIOVASCULAR: Regular rate and rhythm without murmurs, gallops, or rubs. RESPIRATORY: No accessory muscle use. Clear to auscultation bilaterally GASTROINTESTINAL: Soft. Nondistended. No peritoneal signs. Normoactive bowel sounds. MUSCULOSKELETAL: No cyanosis, or edema. BACK: Nontender without obvious deformity. No CVA tenderness. Medications and IVs Current Medications Acetaminophen/ Hydrocodone Bitart ([place] 5-325 Mg) 1 tab ONCE ONCE PO ; Start 09/02/16 at 13:30; Stop 09/02/16 at 13:31; Status DC Ondansetron HCl (Zofran Odt) 4 mg ONCE ONCE PO Last administered on 09/02/16t 13:26; Start 09/02/16 at 13:30; Stop 09/02/16 at 13:31; Status DC Ketorolac Tromethamine (Toradol Inj) 60 mg ONCE ONCE IM Last administered on 13:37; Start 09/02/16 at 13:45; Stop 09/02/16 at 13:46; Status DC Diatrizoate Meglum/ Diatrizoate Sod (Md Jean Dave) 18 ml STK-MED ONCE .ROUTE Last administered on 09/02/16 13:37; Start 09/02/16 at 13:35; Stop at 13:36; Status DC Ondansetron HCl (Zofran Inj) 4 mg ONCE ONCE IV PUSH ; Start 09/02/16 at 15:15; Stop 09/02/16 at 15:15; Status DC Morphine Sulfate (Morphine Inj) 4 mg ONCE ONCE IV PUSH Last administered on 15:20; Start 09/02/16 at 15:15; Stop 09/02/16 at 15:16; Status DC Morphine Sulfate (Morphine Inj) 4 mg ONCE ONCE IV PUSH ; Start 09/02/16 at 15:15 ; Stop 09/02/16 at 15:15; Status DC Ondansetron HCl (Zofran Inj) 4 mg ONCE ONCE IVP ; Start 09/02/16 at 15:15; Stop 09/02/16 at 15:15; Status DC IV Flush (NS Flush) 2 ml UNSCH PRN IVF FLUSH AFTER USING IV ACCESS Last administered on 09/02/16 15:20; Start 09/02/16 at 15:15; Stop 09/02/16 at 18:03; Status DC Iohexol 100 ml 100 ml STK-MED ONCE IV Last administered on 09/02/16 15:57; Start 09/02/16 at 15:57; Stop 09/02/16 at 15:58; Status DC Ciprofloxacin/ Dextrose 200 ml @ 200 mls/hr ONCE ONCE IV Last administered on 09/02/16 16:48; Start 09/02/16 at 16:45; Stop 09/02/16 at 17:44; Status DC Metronidazole 100 ml @ 100 mls/hr ONCE ONCE IV Last administered on 09/02/16 16:48; Start 09/02/16 at 16:45; Stop 09/02/16 at 17:44; Status DC Sodium Chloride (NS 1000 ml Inj) 1,000 ml @ 125 mls/hr Q8H IV Last administered on 09/10/16 16:00; Start 09/02/16 at 18:00; Stop 09/10/16 at 19:08 ; Status DC IV Flush (NS Flush) 2 ml UNSCH PRN FLUSH FLUSH AFTER USING IV ACCESS Last administered on 09/08/16 06:43; Start 09/02/16 at 17:45 IV Flush (NS Flush) 2 ml BID FLUSH Last administered on 10/02/16 21:00; Start 09/02/16 at 21:00 Acetaminophen (Tylenol) 650 mg Q4H PRN PO TEMP > 100.4; Start 09/02/16 at 17:45 Ondansetron HCl (Zofran Inj) 4 mg Q6H PRN IVP NAUSEA OR VOMITING Last administered on 09/08/16 09:04; Start 09/02/16 at 17:45 Magnesium Hydroxide (Milk Of Magnesia Liq) 30 ml Q12H PRN PO CONSTIPATION; Start 09/02/16 at 17:45 Enoxaparin Sodium (Lovenox Inj) 40 mg Q24H SQ Last administered on 10/02/16 16: 46; Start 09/02/16 at 17:45 Naloxone HCl 0.4 mg 0.4 mg UNSCH PRN IV SEE LABEL COMMENTS; Start 09/02/16 at 17 :45 Ciprofloxacin/ Dextrose 200 ml @ 200 mls/hr Q12H IV Last administered on 04:12; Start 09/03/16 at 04:00; Stop 09/11/16 at 11:35; Status DC Metronidazole (Flagyl 500 Mg Inj) 100 ml @ 100 mls/hr Q8H IV Last administered on 09/25/16 05:19; Start 09/02/16 at 23:00; Stop 09/25/16 at 11:50; Status DC Lisinopril (Prinivil) 10 mg DAILY PO Last administered on 10/02/16 09:16; Start 09/03/16 at 09:00 Dextrose (D50w (Vial) Inj) 25 ml UNSCH PRN IV PUSH HYPOGLYCEMIA-SEE COMMENTS Last administered on 09/27/16 16:05; Start 09/02/16 at 18:45; Stop 09/27/16 at 16: 21; Status DC Glucagon (Glucagon Inj) 1 mg UNSCH PRN OTHER HYPOGLYCEMIA-SEE COMMENTS; Start 09/02/16 at 18:45; Stop 09/27/16 at 16:21; Status DC Insulin Aspart (NovoLOG SUPPLEMENTAL SCALE) 1 ACHS SLIDING SCALE SQ Last administered on 09/14/16 22:43; Start 09/02/16 at 21:00; Stop 09/15/16 at 06:27 ; Status DC Morphine Sulfate (Morphine Inj) 2 mg Q3H PRN IV PUSH PAIN 1-5; Start 09/03/16 at 00:30; Stop 09/04/16 at 11:01; Status DC Morphine Sulfate (Morphine Inj) 4 mg Q3H PRN IV PUSH PAIN 6-10 Last administered on 09/04/16 09:49; Start 09/03/16 at 00:30; Stop 09/04/16 at 11:01 ; Status DC Ketorolac Tromethamine (Toradol Inj) 30 mg ONCE ONCE IV PUSH Last administered on 09/03/16 03:50; Start 09/03/16 at 02:15; Stop 09/03/16 at 02:16 ; Status DC Iohexol (Omnipaque 350 Inj) 76 ml STK-MED ONCE IV Last administered on 09:15; Start 09/04/16 at 09:15; Stop 09/04/16 at 09:16; Status DC Hydromorphone HCl (Dilaudid Pf Inj) 1 mg Q3HR PRN IV PUSH PAIN SCALE 6 TO 10 Last administered on 09/04/16 11:55; Start 09/04/16 at 12:00; Stop 09/04/16 at 13:18; Status DC Morphine Sulfate (Morphine Inj) 2 mg Q3H PRN IV PUSH PAIN SCALE 1 TO 6; Start 09/04/16 at 14:00 Morphine Sulfate (Morphine Inj) 4 mg Q3H PRN IV PUSH PAIN SCALE 7 TO 10 Last administered on 09/22/16 01:49; Start 09/04/16 at 13:30 Polyethylene Glycol/ Electrolytes (Colyte Liq) 4,000 ml ONCE ONCE PO Last administered on 09/05/16 16:40; Start 09/05/16 at 16:00; Stop 09/05/16 at 16:01 ; Status DC Promethazine HCl (Phenergan Supp) 25 mg Q6H PRN RECTAL NAUSEA OR VOMITING Last administered on 09/04/16 17:06; Start 09/04/16 at 16:45; Stop 09/05/16 at 21:00 ; Status DC Fluticasone Propionate (Flonase Anuj Spr) 1 spray BID NASAL Last administered on 10/02/16 21:40; Start 09/05/16 at 12:00 Loratadine (Claritin) 10 mg DAILY PO Last administered on 10/02/16 09:16; Start 09/06/16 at 09:00 Promethazine HCl 25 mg 25 mg ONCE ONCE PO Last administered on 09/05/16 22:04 ; Start 09/05/16 at 21:00; Stop 09/05/16 at 21:22; Status DC Azithromycin/ Sodium Chloride (Zithromax Inj/ NS 250 ml Inj) 250 ml @ 250 mls/ hr Q24H IV Last administered on 09/07/16 11:29; Start 09/06/16 at 11:00; Stop 09/07/16 at 14:50; Status DC Guaifenesin (Mucinex Er) 600 mg BID PO Last administered on 09/29/16 09:04; Start 09/06/16 at 11:00; Stop 09/29/16 at 18:15; Status DC Magnesium Citrate (Citroma Liq) 300 ml ONCE ONCE PO Last administered on 14:54; Start 09/06/16 at 14:30; Stop 09/06/16 at 14:31; Status DC Magnesium Citrate (Citroma Liq) 300 ml ONCE ONCE PO ; Start 09/06/16 at 18:00; Stop 09/06/16 at 18:01; Status DC Bisacodyl (Dulcolax Ec) 10 mg DAILY@18,21 PO Last administered on 09/06/16 21: 00; Start 09/06/16 at 18:00; Stop 09/06/16 at 21:01; Status DC Etomidate (Amidate Inj) 20 mg STK-MED ONCE IV PUSH ; Start 09/06/16 at 13:56; Stop 09/06/16 at 14:33; Status DC Ketamine HCl (Ketalar Inj) 500 mg STK-MED ONCE .ROUTE ; Start 09/06/16 at 14:50 ; Stop 09/06/16 at 14:51; Status DC Simethicone (Mylicon Chew) 80 mg ONCE ONCE CHEW Last administered on 22:23; Start 09/06/16 at 19:45; Stop 09/06/16 at 19:46; Status DC Albuterol/ Ipratropium (Duoneb Neb) 1 ampule Q6HR NEB NEB Last administered on 09/10/16 07:34; Start 09/06/16 at 22:00; Stop 09/10/16 at 22:00; Status DC Magnesium Citrate (Citroma Liq) 300 ml ONCE ONCE PO ; Start 09/08/16 at 12:00; Stop 09/08/16 at 12:01; Status DC Magnesium Citrate (Citroma Liq) 300 ml ONCE ONCE PO ; Start 09/08/16 at 18:00; Stop 09/08/16 at 18:01; Status DC Bisacodyl (Dulcolax Ec) 10 mg ONCE ONCE PO ; Start 09/08/16 at 18:00; Stop at 18:01; Status DC Bisacodyl 10 mg 10 mg ONCE ONCE PO ; Start 09/08/16 at 21:00; Stop 09/08/16 at 21:01; Status DC Sodium Chloride (NS 1000 ml Inj) 1,000 ml @ 999 mls/hr BOLUS ONCE IV Last administered on 09/08/16 13:00; Start 09/08/16 at 10:45; Stop 09/08/16 at 11:45 ; Status DC Albuterol Sulfate 1.25 mg 1.25 mg Q6HR NEB NEB Last administered on 09/12/16 09:54; Start 09/08/16 at 16:00; Stop 09/12/16 at 16:00; Status DC Sodium Chloride 500 ml @ 500 mls/hr BOLUS ONCE IV Last administered on 17:45; Start 09/08/16 at 17:30; Stop 09/08/16 at 18:29; Status DC Pantoprazole Sodium/Sodium Chloride (Protonix Inj/NS Inj) 100 ml @ 10 mls/hr CONTINUOUS IV Last administered on 09/09/16 07:29; Start 09/08/16 at 20:00; Stop 09/09/16 at 08:31; Status DC Diatrizoate Meglum/ Diatrizoate Sod 18 ml 18 ml ONCE ONCE PO Last administered on 09/08/16 21:34; Start 09/08/16 at 21:15; Stop 09/08/16 at 21:16 ; Status DC Sodium Chloride (NS 500 ml Inj) 500 ml @ 500 mls/hr BOLUS ONCE IV Last administered on 09/09/16 02:44; Start 09/09/16 at 02:45; Stop 09/09/16 at 03:44 ; Status DC Pantoprazole Sodium 40 mg 40 mg Q12H IV PUSH Last administered on 10/01/16 21: 02; Start 09/09/16 at 21:00; Stop 10/02/16 at 07:45; Status DC Sodium Chloride 500 ml @ 500 mls/hr BOLUS ONCE IV Last administered on 09:00; Start 09/09/16 at 09:00; Stop 09/09/16 at 09:59; Status DC Potassium Chloride 100 ml @ 50 mls/hr BOLUS ONCE IV Last administered on 09/10 09:40; Start 09/10/16 at 08:00; Stop 09/10/16 at 09:59; Status DC Clindamycin Phosphate/Sodium Chloride (Cleocin Inj/NS Inj) 104 ml @ 208 mls/hr Q8H IV Last administered on 09/11/16 06:56; Start 09/10/16 at 13:00; Stop at 11:35; Status DC Midazolam HCl 2 mg 2 mg STK-MED ONCE .ROUTE ; Start 09/10/16 at 19:03; Stop at 19:04; Status DC Lactated Ringer's 1,000 ml @ 125 mls/hr Q8H IV Last administered on 09/12/16 04:00; Start 09/10/16 at 20:00; Stop 09/12/16 at 18:36; Status DC Fentanyl Citrate 250 ml @ 0 mls/hr TITRATE IV Last administered on 09/20/16 21 :04; Start 09/10/16 at 19:45; Stop 09/25/16 at 11:50; Status DC Midazolam HCl (Versed Inj) 100 ml @ 0 mls/hr TITRATE IV Last administered on 07:16; Start 09/10/16 at 20:00; Stop 09/15/16 at 13:04; Status DC Albumin Human 25 gm 25 gm NOW ONCE IV Last administered on 09/10/16 21:15; Start 09/10/16 at 20:00; Stop 09/10/16 at 20:01; Status DC Norepinephrine Bitartrate 250 ml @ As Directed STK-MED ONCE IV ; Start at 19:45; Stop 09/10/16 at 19:46; Status DC Sodium Chloride 1,000 ml @ 999 mls/hr BOLUS ONCE IV Last administered on 09/10 21:16; Start 09/10/16 at 20:00; Stop 09/10/16 at 21:00; Status DC Norepinephrine Bitartrate (Levophed-Dextrose Drip) 250 ml @ 0 mls/hr TITRATE IV Last administered on 09/11/16 12:30; Start 09/10/16 at 20:00; Stop 09/11/16 at 23:56; Status DC Terbutaline Sulfate (Brethine Inj) 1 mg UNSCH PRN SQ For Extravasation; Start 09/10/16 at 20:00; Stop 09/16/16 at 13:48; Status DC Etomidate (Amidate Inj) 20 mg STK-MED ONCE .ROUTE ; Start 09/10/16 at 20:04; Stop 09/10/16 at 20:05; Status DC Fentanyl Citrate 200 mcg 200 mcg STK-MED ONCE .ROUTE ; Start 09/10/16 at 20:06; Stop 09/10/16 at 20:07; Status DC Sodium Chloride (NS 1000 ml Inj) 1,000 ml @ 0 mls/hr NOW ONCE IV Last administered on 09/10/16 21:17; Start 09/10/16 at 21:00; Stop 09/10/16 at 21:01 ; Status DC Etomidate (Amidate Inj) 25 mg NOW ONCE IV PUSH Last administered on 09/10/16 20:10; Start 09/10/16 at 21:15; Stop 09/10/16 at 21:16; Status DC Rocuronium [place] (Zemuron Inj) 50 mg NOW ONCE IV Last administered on 20:10; Start 09/10/16 at 21:15; Stop 09/10/16 at 21:16; Status DC Chlorhexidine Gluconate 15 ml 15 ml BID@08,20 MT Last administered on 09/29/16 20:00; Start 09/11/16 at 08:00; Stop 09/30/16 at 21:17; Status DC Sodium Chloride 1,000 ml @ 0 mls/hr BOLUS ONCE IV Last administered on 00:00; Start 09/10/16 at 22:45; Stop 09/10/16 at 22:46; Status DC Parenteral Electrolytes 1,000 ml @ 500 mls/hr Q2H IV Last administered on 09/11 01:53; Start 09/11/16 at 00:00; Stop 09/11/16 at 02:00; Status DC Sodium Chloride (NS 1000 ml Inj) 1,000 ml @ 0 mls/hr BOLUS ONCE IV Last administered on 09/11/16 06:56; Start 09/11/16 at 06:00; Stop 09/11/16 at 06:01 ; Status DC Albumin Human 25 gm 25 gm STK-MED ONCE .ROUTE Last administered on 09/11/16 10 :06; Start 09/11/16 at 10:06; Stop 09/11/16 at 10:07; Status DC Calcium Chloride/ Sodium Chloride (Calcium Chloride Inj/NS Inj) 120 ml @ 120 mls/hr ONCE ONCE IV Last administered on 09/11/16 11:08; Start 09/11/16 at 12 :00; Stop 09/11/16 at 12:59; Status DC Albumin Human (Albumin 5% Inj) 25 gm STK-MED ONCE .ROUTE Last administered on 10:40; Start 09/11/16 at 10:40; Stop 09/11/16 at 10:41; Status DC Albumin Human 12.5 gm 12.5 gm STK-MED ONCE IV Last administered on 09/11/16 11 :00; Start 09/11/16 at 10:42; Stop 09/11/16 at 10:43; Status DC Cefepime HCl 2000 mg/Sodium Chloride 100 ml @ 200 mls/hr Q8H IV Last administered on 09/22/16 04:15; Start 09/11/16 at 13:00; Stop 09/22/16 at 09:51 ; Status DC Vancomycin HCl 1750 mg/Sodium Chloride 517.5 ml @ 258.75 mls/ hr ONCE ONCE IV Last administered on 09/11/16 13:30; Start 09/11/16 at 12:00; Stop 09/11/16 at 13:59; Status DC Pharmacy Profile Note 0 ml @ 0 mls/hr UNSCH OTHER ; Start 09/11/16 at 11:45; Stop 09/13/16 at 13:04; Status DC Vancomycin HCl/ Sodium Chloride (Vancomycin Inj/ NS 500 ml Inj) 517.5 ml @ 258.75 mls/ hr Q12H IV Last administered on 09/13/16 00:11; Start 09/12/16 at 00:00; Stop 09/13/16 at 12:47; Status DC Miscellaneous Information SPECIFIC LAB TO BE HAI... ONCE ONCE XX Last administered on 09/13/16 11:25; Start 09/13/16 at 11:45; Stop 09/13/16 at 11:46 ; Status DC Milrinone Lactate 20 mg/Sodium Chloride 100 ml @ 8.12 mls/hr [id number] IV Last administered on 09/17/16 22:23; Start 09/11/16 at 17:00; Stop 09/18/16 at 17:19 ; Status DC Vasopressin/ Dextrose (Pitressin Inj/ D5W 100 ml Inj) 100 ml @ 1.5 mls/hr Q24H IV Last administered on 09/12/16 17:00; Start 09/11/16 at 17:00; Stop at 06:27; Status DC Hydrocortisone Sodium Succinate 50 mg 50 mg Q6HR IV PUSH Last administered on 12:00; Start 09/11/16 at 18:00; Stop 09/15/16 at 17:07; Status DC Norepinephrine Bitartrate/ Dextrose (Levophed Inj/ D5W Inj) 266 ml @ 0 mls/hr TITRATE IV Last administered on 09/13/16 20:30; Start 09/11/16 at 23:45; Stop 09/16/16 at 13:46; Status DC Albumin Human (Albumin 5% Inj) 12.5 gm STK-MED ONCE IV Last administered on 00:21; Start 09/12/16 at 00:21; Stop 09/12/16 at 00:22; Status DC Albumin Human (Albumin 5% Inj) 12.5 gm STK-MED ONCE IV ; Start 09/12/16 at 00:22 ; Stop 09/12/16 at 00:23; Status DC Albumin Human (Albumin 5% Inj) 25 gm NOW ONCE IV Last administered on 00:30; Start 09/12/16 at 00:30; Stop 09/12/16 at 00:31; Status DC Sodium Bicarbonate (Sodium Bicarbonate 8.4% Inj) 100 meq STK-MED ONCE .ROUTE ; Start 09/12/16 at 02:56; Stop 09/12/16 at 02:57; Status DC Sodium Bicarbonate (Sodium Bicarbonate 8.4% Inj) 100 meq NOW ONCE IV Last administered on 09/12/16 03:03; Start 09/12/16 at 03:15; Stop 09/12/16 at 03:16 ; Status DC Sodium Bicarbonate 100 meq 100 meq ONCE ONCE IV PUSH ; Start 09/12/16 at 03:15 ; Stop 09/12/16 at 03:16; Status UNV Epinephrine HCl/ Dextrose (Adrenalin (1:1000) Inj/D5W Inj) 250 ml @ 0 mls/hr TITRATE IV Last administered on 09/12/16 08:54; Start 09/12/16 at 06:30; Stop 09/15/16 at 06:27; Status DC Epinephrine HCl (Adrenalin (1:1000) Inj) 1 mg STK-MED ONCE .ROUTE Last administered on 09/12/16 04:40; Start 09/12/16 at 04:40; Stop 09/12/16 at 04:41 ; Status DC Digoxin 0.25 mg 0.25 mg ONCE ONCE IV PUSH Last administered on 09/12/16 08:00 ; Start 09/12/16 at 08:00; Stop 09/12/16 at 08:01; Status DC Fluconazole/ Sodium Chloride 200 ml @ 100 mls/hr Q24H IV Last administered on 09/21/16 11:59; Start 09/12/16 at 12:00; Stop 09/22/16 at 09:51; Status DC Potassium Chloride 100 ml @ 25 mls/hr BOLUS ONCE IV Last administered on 09/12 15:30; Start 09/12/16 at 15:30; Stop 09/12/16 at 19:29; Status DC Magnesium Sulfate/ Dextrose 100 ml @ 100 mls/hr ONCE ONCE IV Last administered on 09/12/16 15:30; Start 09/12/16 at 15:30; Stop 09/12/16 at 16:29 ; Status DC Amiodarone HCl 150 mg/Dextrose 100 ml @ 600 mls/hr ONCE ONCE IV Last administered on 09/12/16 16:16; Start 09/12/16 at 15:30; Stop 09/12/16 at 15:39 ; Status DC Amiodarone HCl 900 mg/Dextrose 500 ml @ 0 mls/hr CONTINUOUS IV ; Start 09/12/16 at 15:30; Stop 09/12/16 at 15:30; Status DC Amiodarone HCl/ Dextrose (Cordarone Inj/ D5W ([place]) Inj) 250 ml @ 0 mls/hr CONTINUOUS IV Last administered on 09/15/16 16:47; Start 09/12/16 at 15:30; Stop 09/16/16 at 09:39; Status DC Furosemide (Lasix Inj) 40 mg STK-MED ONCE .ROUTE Last administered on 15:40; Start 09/12/16 at 15:40; Stop 09/12/16 at 15:41; Status DC Lidocaine HCl (Xylocaine 1% Inj (50 ml)) 50 ml STK-MED ONCE .ROUTE ; Start 09/12 at 16:45; Stop 09/12/16 at 16:46; Status DC Furosemide (Lasix Inj) 40 mg ONCE ONCE IV PUSH ; Start 09/12/16 at 18:45; Stop 09/12/16 at 18:46; Status DC Furosemide 60 mg 60 mg ONCE ONCE IV PUSH Last administered on 09/13/16 08:56 ; Start 09/13/16 at 08:30; Stop 09/13/16 at 08:31; Status DC Lactated Ringer's 1,000 ml @ As Directed STK-MED ONCE IV ; Start 09/10/16 at 11 :15; Stop 09/13/16 at 11:16; Status DC Parenteral Electrolytes 2,000 ml @ As Directed STK-MED ONCE IV ; Start at 11:15; Stop 09/13/16 at 11:16; Status DC Potassium Chloride 100 ml @ 50 mls/hr Q2H PRN IV For Potassium 2.8 - 3.2 mEq/ L Last administered on 09/22/16 06:11; Start 09/13/16 at 11:45; Stop 09/30/16 at 21:17; Status DC Potassium Chloride 100 ml @ 50 mls/hr Q2H PRN IV For Potassium 2.8 - 3.2 mEq/L ; Start 09/13/16 at 11:45; Stop 09/30/16 at 21:17; Status DC Potassium Chloride 100 ml @ 25 mls/hr UNSCH PRN IV For Potassium 3.3 - 3.5 mEq /L Last administered on 09/24/16 05:55; Start 09/13/16 at 11:45; Stop 09/30/16 at 21:17; Status DC Potassium Chloride 100 ml @ 50 mls/hr Q2H PRN IV For Potassium 3.3 - 3.5 mEq/ L Last administered on 09/15/16 19:24; Start 09/13/16 at 11:45; Stop 09/30/16 at 21:17; Status DC Magnesium Sulfate/ Sodium Chloride (Magnesium Sulfate Inj/NS Inj) 100 ml @ 50 mls/hr UNSCH PRN IV For Magnesium 0.9 - 1.1 mg/dL; Start 09/13/16 at 11:45; Stop 09/30/16 at 21:17; Status DC Magnesium Oxide 800 mg 800 mg UNSCH PRN PO For Magnesium 1.2 - 1.6 mg/dL; Start 09/13/16 at 11:45; Stop 09/30/16 at 21:17; Status DC Magnesium Sulfate/ Sodium Chloride (Magnesium Sulfate Inj/NS Inj) 100 ml @ 50 mls/hr UNSCH PRN IV For Magnesium 1.2 - 1.6 mg/dL; Start 09/13/16 at 11:45; Stop 09/30/16 at 21:17; Status DC Potassium Phosphate 2000 mg 2,000 mg Q4H PRN PO For Phosphorus < 2.5 mg/dL Last administered on 09/21/16 12:46; Start 09/13/16 at 11:45; Stop 09/30/16 at 21:17; Status DC Sodium Phosphate/ Sodium Chloride (Sodium Phosphate Inj/NS 250 ml Inj) 250 ml @ 42 mls/hr UNSCH PRN IV For Phosphorus < 2.5 mg/dL Last administered on 07:18; Start 09/13/16 at 11:45; Stop 09/30/16 at 21:17; Status DC Potassium Phosphate 2000 mg 2,000 mg UNSCH PRN PO/TUBE SEE LABEL COMMENTS; Start 09/13/16 at 11:45; Stop 09/30/16 at 21:17; Status DC Potassium Phosphate 30 mmol/ Sodium Chloride 260 ml @ 42 mls/hr UNSCH PRN IV SEE LABEL COMMENTS Last administered on 09/25/16 09:37; Start 09/13/16 at 11:45 ; Stop 09/30/16 at 21:17; Status DC Vancomycin HCl/ Sodium Chloride (Vancomycin Inj/ NS 500 ml Inj) 517.5 ml @ 258.75 mls/ hr Q18H IV ; Start 09/13/16 at 22:00; Stop 09/13/16 at 22:00; Status DC Miscellaneous Information SPECIFIC LAB TO BE DRAWN:[facility]... ONCE ONCE XX ; Start 09/14/16 at 15:45; Stop 09/14/16 at 15:46; Status Cancel Epinephrine HCl (EPINEPHrine (1:10,000) INJ) 1 mg STK-MED ONCE IV ; Start at 05:00; Stop 09/13/16 at 14:07; Status DC Furosemide 60 mg 60 mg ONCE ONCE IV PUSH Last administered on 09/14/16 11:41 ; Start 09/14/16 at 11:30; Stop 09/14/16 at 11:31; Status DC Multivitamins/ Folic Acid/Amino Acids/ Electrolytes/ Dextrose (Mvi-12 Inj/ Folvite Inj/ Clinimix E 11/18) 1,010.2 ml @ 30 mls/hr Q24H IV-CENTRAL Last administered on 09/15/16 20:46; Start 09/14/16 at 20:00; Stop 09/16/16 at 19:59 ; Status DC Dextrose (D50w (Vial) Inj) 25 ml UNSCH PRN IV PUSH HYPOGLYCEMIA-SEE COMMENTS; Start 09/15/16 at 06:30; Stop 09/15/16 at 17:07; Status DC Insulin Human Regular (NovoLIN R SUPPLEMENTAL SCALE) 1 Q4HR SQ Last administered on 09/15/16 16:00; Start 09/15/16 at 08:00; Stop 09/15/16 at 17:07 ; Status DC Albuterol/ Ipratropium (Duoneb Neb) 1 ampule Q6HR NEB NEB Last administered on 09/22/16 16:38; Start 09/15/16 at 16:00; Stop 09/22/16 at 17:19; Status DC Albuterol Sulfate (Albuterol Neb) 2.5 mg Q2HR NEB PRN NEB dyspnea Last administered on 10/02/16 00:08; Start 09/15/16 at 14:00 Albuterol/ Ipratropium (Duoneb Neb) 1 ampule Q4HR NEB NEB ; Start 09/15/16 at 16:00; Stop 09/15/16 at 16:00; Status DC Albuterol/ Ipratropium (Duoneb Neb) 1 ampule Q2HR NEB PRN NEB dyspnea; Start at 13:30; Stop 09/15/16 at 13:30; Status DC Budesonide (Pulmicort Respule Neb) 0.5 mg Q12HR NEB NEB Last administered on 20:21; Start 09/15/16 at 20:00 Hydrocortisone Sodium Succinate (SoluCORTEF INJ) 50 mg Q8HR IV PUSH Last administered on 09/19/16 05:42; Start 09/15/16 at 22:00; Stop 09/19/16 at 09:39 ; Status DC Insulin Detemir (Levemir Inj) 12 units Q12HR SQ Last administered on 09/16/16 08:16; Start 09/15/16 at 21:00; Stop 09/16/16 at 09:39; Status DC Dextrose (D50w (Vial) Inj) 25 ml UNSCH PRN IV PUSH HYPOGLYCEMIA-SEE COMMENTS; Start 09/15/16 at 17:15; Status UNV Glucagon (Glucagon Inj) 1 mg UNSCH PRN OTHER HYPOGLYCEMIA-SEE COMMENTS; Start 09/15/16 at 17:15; Status UNV Insulin Human Regular 1 1 Q4HR SQ Last administered on 09/27/16 08:09; Start at 20:00; Stop 09/27/16 at 16:21; Status DC Calcium Gluconate 2 gm/Sodium Chloride 120 ml @ 120 mls/hr ONCE ONCE IV Last administered on 09/16/16 00:58; Start 09/16/16 at 00:45; Stop 09/16/16 at 01:44 ; Status DC Potassium Chloride 100 ml @ 50 mls/hr BOLUS ONCE IV Last administered on 09/16 12:26; Start 09/16/16 at 09:15; Stop 09/16/16 at 11:14; Status DC Magnesium Sulfate/ Dextrose 100 ml @ 100 mls/hr Q1H IV Last administered on 12:28; Start 09/16/16 at 10:00; Stop 09/16/16 at 11:59; Status DC Dexmedetomidine HCl (Precedex Inj) 50 ml @ 0 mls/hr TITRATE IV Last administered on 09/21/16 19:56; Start 09/16/16 at 09:45; Stop 09/21/16 at 21:00 ; Status DC Insulin Detemir 20 units 20 units Q12HR SQ Last administered on 09/16/16 21:19 ; Start 09/16/16 at 21:00; Stop 09/17/16 at 09:20; Status DC Multivitamins 10 ml/Folic Acid 1 mg/Amino Acids/ Electrolytes/ Dextrose 2,010.2 ml @ 30 mls/hr Q24H IV-CENTRAL Last administered on 09/17/16 20:37; Start at 20:00; Stop 09/18/16 at 12:13; Status DC Fat Emulsion Intravenous 250 ml @ 10 mls/hr Q24H IV-CENTRAL Last administered on 09/21/16 21:08; Start 09/16/16 at 20:00; Stop 09/22/16 at 19:20; Status DC Norepinephrine Bitartrate (Levophed-Dextrose Drip) 250 ml @ 0 mls/hr TITRATE IV Last administered on 09/17/16 06:50; Start 09/16/16 at 13:45; Stop 09/30/16 at 21:17; Status DC Terbutaline Sulfate (Brethine Inj) 1 mg UNSCH PRN SQ For Extravasation; Start 09/16/16 at 13:45 Midazolam HCl (Versed Inj) 5 mg ONCE ONCE IV PUSH Last administered on 13:45; Start 09/16/16 at 13:45; Stop 09/16/16 at 13:47; Status DC Fentanyl Citrate (fentaNYL INJ) 50 mcg ONCE ONCE IV PUSH Last administered on 09/16/16 13:45; Start 09/16/16 at 13:45; Stop 09/16/16 at 13:47; Status DC Sodium Chloride (NS Flush) DAILY IVF Last administered on 10/02/16 09:15; Start 09/17/16 at 09:00 Sodium Chloride UNSCH PRN IVF SEE PROTOCOL; Start 09/16/16 at 15:15 Potassium Phosphate/Sodium Chloride (Potassium Phosphate Inj/NS Inj) 155 ml @ 38.75 mls/ hr ONCE ONCE IV Last administered on 09/17/16 10:00; Start at 10:00; Stop 09/17/16 at 13:59; Status DC Insulin Detemir (Levemir Inj) 25 units Q12HR SQ Last administered on 09/18/16 09:00; Start 09/17/16 at 21:00; Stop 09/18/16 at 12:01; Status DC Insulin Detemir 10 units 10 units Q12HR SQ Last administered on 09/19/16 08:03 ; Start 09/18/16 at 21:00; Stop 09/19/16 at 09:39; Status DC Multivitamins/ Folic Acid/Amino Acids/ Electrolytes/ Dextrose (Mvi-12 Inj/ Folvite Inj/ Clinimix E 11/18) 1,010.2 ml @ 30 mls/hr Q24H IV-CENTRAL Last administered on 09/21/16 21:08; Start 09/18/16 at 20:00; Stop 09/22/16 at 13:10 ; Status DC Adenosine (Adenocard Inj) 6 mg STK-MED ONCE .ROUTE ; Start 09/19/16 at 01:35; Stop 09/19/16 at 02:16; Status DC Hydrocortisone Sodium Succinate (SoluCORTEF INJ) 50 mg BID IV PUSH Last administered on 09/21/16 08:34; Start 09/19/16 at 21:00; Stop 09/21/16 at 10:18 ; Status DC Insulin Detemir (Levemir Inj) 8 units Q12HR SQ Last administered on 09/26/16 10 :31; Start 09/19/16 at 21:00; Stop 09/26/16 at 10:48; Status DC Bisacodyl (Dulcolax Supp) 10 mg NOW ONCE RECTAL Last administered on 13:15; Start 09/20/16 at 13:15; Stop 09/20/16 at 13:16; Status DC Methylprednisolone Sodium Succinate (SoluMEDROL INJ) 80 mg Q8HR IV PUSH Last administered on 09/26/16 06:17; Start 09/21/16 at 11:00; Stop 09/26/16 at 10:49; Status DC Furosemide (Lasix Inj) 20 mg BID@09,18 IV PUSH Last administered on 09/25/16 08 :45; Start 09/21/16 at 18:00; Stop 09/25/16 at 11:41; Status DC Furosemide 20 mg 20 mg STAT ONCE IV PUSH Last administered on 09/21/16 12:30 ; Start 09/21/16 at 12:15; Stop 09/21/16 at 12:16; Status DC Dexmedetomidine HCl 400 mcg/ Sodium Chloride 100 ml @ 0 mls/hr TITRATE IV Last administered on 09/22/16 03:27; Start 09/21/16 at 20:15; Stop 09/22/16 at 04:04 ; Status DC Dexmedetomidine HCl/Sodium Chloride (Precedex Inj/NS 250 ml Inj) 250 ml @ 0 mls/ hr TITRATE IV Last administered on 09/24/16 13:44; Start 09/22/16 at 04:15; Stop 09/25/16 at 11:50; Status DC Potassium Bicarb/ Potassium Chloride (K-Lyte Cl Eff) 25 meq ONCE ONCE PO Last administered on 09/22/16 11:15; Start 09/22/16 at 10:45; Stop 09/22/16 at 10:54; Status DC Potassium Bicarb/ Potassium Chloride (K-Lyte Cl Eff) 25 meq Q12HR NG Last administered on 09/25/16 08:45; Start 09/22/16 at 10:45; Stop 09/25/16 at 11:41; Status DC Acetazolamide Sodium 500 mg 500 mg ONCE ONCE IV PUSH Last administered on 09/22 11:16; Start 09/22/16 at 10:45; Stop 09/22/16 at 10:54; Status DC Multivitamins/ Folic Acid/Amino Acids/ Electrolytes/ Dextrose (Mvi-12 Inj/ Folvite Inj/ Clinimix E 11/18) 2,010.2 ml @ 60 mls/hr Q24H IV-CENTRAL ; Start at 20:00; Stop 09/22/16 at 20:00; Status DC Acetazolamide Sodium (Diamox Inj) 500 mg ONCE ONCE IV PUSH Last administered on 09/23/16 15:36; Start 09/23/16 at 14:15; Stop 09/23/16 at 14:21; Status DC Quetiapine Fumarate (SEROquel) 50 mg BID PO Last administered on 09/25/16 08:45 ; Start 09/24/16 at 11:00; Stop 09/25/16 at 11:41; Status DC Water (Free Water) 200 ml Q4HR G-TUBE Last administered on 09/25/16 12:00; Start 09/24/16 at 12:00; Stop 09/25/16 at 14:00; Status DC Albuterol/ Ipratropium (Duoneb Neb) 1 ampule Q6HR NEB NEB Last administered on 09/29/16 16:00; Start 09/25/16 at 16:00; Stop 09/29/16 at 16:06; Status DC Quetiapine Fumarate (SEROquel) 25 mg BID PO Last administered on 09/28/16 08:34 ; Start 09/25/16 at 21:00; Stop 09/28/16 at 11:32; Status DC Insulin Detemir (Levemir Inj) 15 units Q12HR SQ ; Start 09/26/16 at 21:00; Stop 09/26/16 at 21:00; Status DC Insulin Detemir (Levemir Inj) 12 units Q12HR SQ Last administered on 09/27/16 08:08; Start 09/26/16 at 21:00; Stop 09/27/16 at 16:21; Status DC Methylprednisolone Sodium Succinate 60 mg 60 mg Q8HR IV PUSH Last administered on 09/28/16 04:52; Start 09/26/16 at 14:00; Stop 09/28/16 at 08:37; Status DC Sodium Chloride/ Sterile Water (Sodium Chloride 23.4% Inj/Sterile Water For Inj ) 1,009.625 ml @ 42 mls/hr Q24H IV Last administered on 09/28/16 15:49; Start 09/27/16 at 16:00; Stop 09/29/16 at 16:06; Status DC Insulin Detemir (Levemir Inj) 8 units Q12HR SQ Last administered on 10/02/16 21 :30; Start 09/27/16 at 21:00 Dextrose (D50w (Vial) Inj) 25 ml UNSCH PRN IV PUSH HYPOGLYCEMIA-SEE COMMENTS; Start 09/27/16 at 16:30 Glucagon (Glucagon Inj) 1 mg UNSCH PRN OTHER HYPOGLYCEMIA-SEE COMMENTS; Start 09/27/16 at 16:30 Insulin Human Regular (NovoLIN R SUPPLEMENTAL SCALE) 1 ACHS SLIDING SCALE SQ Last administered on 10/03/16 06:05; Start 09/27/16 at 21:00 Hydralazine HCl (Apresoline Inj) 10 mg Q1HR PRN IV PUSH SBP>160, DBP>90 Last administered on 09/28/16 16:07; Start 09/27/16 at 16:30 Labetalol HCl (Trandate Inj) 10 mg Q1HR PRN IV PUSH SBP>160, DBP>90, HR>65; Start 09/27/16 at 16:30; Stop 09/30/16 at 21:17; Status DC Nitroglycerin (Nitroglycerin 2% Oint) 2 inch Q6HR PRN TOPICAL SBP>160, DBP>90 Last administered on 09/28/16 17:22; Start 09/27/16 at 16:30 Methylprednisolone Sodium Succinate (SoluMEDROL INJ) 60 mg Q12H IV PUSH Last administered on 10/03/16 04:24; Start 09/28/16 at 17:00 Quetiapine Fumarate (SEROquel) 25 mg DAILY PO Last administered on 10/02/16 09: 16; Start 09/29/16 at 09:00 Quetiapine Fumarate (SEROquel) 50 mg HS PO Last administered on 10/02/16 21:29 ; Start 09/28/16 at 21:00 Miscellaneous (Pill Splitter) 1 ea UNSCH PRN OTHER SEE LABEL COMMENTS; Start at 12:00 Albuterol/ Ipratropium (Duoneb Neb) 1 ampule Q6HR NEB NEB Last administered on 10/03/16 03:43; Start 09/29/16 at 22:00 Guaifenesin (Mucinex Er) 600 mg BID PO Last administered on 10/02/16 21:28; Start 09/29/16 at 21:00 Potassium Chloride (KCl) 30 meq ONCE ONCE PO Last administered on 10/01/16 10: 05; Start 10/01/16 at 08:45; Stop 10/01/16 at 08:53; Status DC Pantoprazole Sodium (Protonix) 40 mg BID PO Last administered on 10/02/16 21:00 ; Start 10/02/16 at 09:00 Date of Insertion: Sep 16, 2016 Date of Removal: Sep 25, 2016 Line: Central Venous Catheter Side: Left Location: Internal, Jugular A/P Assessment and Plan Toxic metabolic encephalopathy -Due to patient's medical condition was being treated for. -Resolved. -Status post off Precedex drip and fentanyl drip. -Seroquel 25 twice a day. Wean down as tolerated A. 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 -Mail Distribution Clerk is following. Patient currently on nasal cannula. Patient on Solu-Medrol. -DuoNeb therapy every 6 hours with albuterol every 2 hours for breakthrough dyspnea -Pulmicort twice a day -Right chest tube discontinued 09/18 -Left chest tube discontinued 09/19 Postop day #21 exploratory lap lysis of adhesions - Dr. Henriquez Chronic pancreatitis Abdominal ascites Internal hemorrhoids Elevated transaminases -Status post EGD by GI. - Pathology revealed chronic gastritis inflammation -Says post colonoscopy by GI 09/06 -incomplete splenic flexure normal mucosa. Internal hemorrhoids. -NG tube removed and tolerating diet very well. ADA diet/. Pured With honey thickened liquids. -Protonix 40 mg IV twice a day -Surgery signed off. Diabetes mellitus -Sliding-scale insulin with Accu-Cheks every 4 hours maintain euglycemia/High dose . -On Levemir 15 units twice a day. Holding home medication glipizide 10 mg by mouth daily Leukocytosis Anemia Right cephalic/basilic superficial thrombus -Follow CBC. -On Lovenox 40 subcutaneous daily SIRS -ID has stopped all antibiotics since 09/22 and patient continued to do well. -Multiple cultures obtained and all negative. Hypernatremia -Encourage more free water intake but per patient difficult due to NG tube. -Patient on IV fluids. -We'll continue to monitor and trend sodium. -will d/w surgery in regards to NG Diarrhea -C. difficile negative. Decondition -Due to severity of illness. PT/OT ff. Prophylaxis - GI - Protonix IV twice a day - DVT - SCD/Lovenox Discharge Planning Once patient off IV solumedrol and cleared by Mail Distribution Clerk can be d/c to SNF. Milady Saeed MD Oct 03, 2016 08:30
[2016-10-03] MEDS: FLUTICASONE PROPIONATE 50 MCG/ACT 16 GM NASAL SPRAY NASAL SCH ×2 (09:00→21:45)
[2016-10-03] MEDS: SODIUM CHLORIDE 0.9% FLUSH 10 ML FLUSH IVF SCH (09:00)
[2016-10-03] MEDS: SODIUM CHLORIDE 0.9% FLUSH 5 ML FLUSH FLUSH SCH ×2 (09:00→21:00)
[2016-10-03] MEDS: PANTOPRAZOLE SOD 40 MG DELAYED RELEASE TAB PO SCH ×2 (09:35→21:44)
[2016-10-03] MEDS: LORATADINE 10 MG TAB PO SCH (09:35)
[2016-10-03] MEDS: INSULIN DETEMIR 100 UNITS/ML VIAL SQ SCH ×2 (09:35→21:46)
[2016-10-03] MEDS: QUEtiapine FUMARATE 25 MG TAB PO SCH (09:35)
[2016-10-03] MEDS: guaiFENesin E.R. 600 MG TAB PO SCH ×2 (09:35→21:44)
[2016-10-03] MEDS: LISINOPRIL 10 MG TAB PO SCH (09:35)
[2016-10-03] MEDS: RESP: BUDESONIDE 0.5 MG/2 ML NEB NEB SCH ×2 (10:03→19:39)
[2016-10-03 10:07] VITALS: O2SAT 91
[2016-10-03 12:00] VITALS: BP 106/65; PULSE 90; RESP 16; TEMP 98.1; O2SAT 97
[2016-10-03 16:00] VITALS: BP 110/68; PULSE 88; PULSE 90; RESP 16; TEMP 98.1; TEMP 98.4; O2SAT 97
[2016-10-03] MEDS: ENOXAPARIN SODIUM 40 MG/0.4 ML SYRINGE SQ SCH (16:19)
--- NOTE | 2016-10-03 19:05 | HHI.PR ---
Subjective Remarks %, maintans sat61 YOWM with Pancreatitis,COPD,Nicotine use had Exp Lap Tolerates PO On 4LNC Mild SOB Occ nausea Objective Vital Signs Vital Signs Date Time Temp Pulse Resp B/P Pulse Ox O2 Delivery O2 Flow Rate FiO2 10/03/16 16:00 98.1 90 16 97 10/03/16 16:00 98.4 88 16 110/68 97 10/03/16 12:00 98.1 90 16 106/65 97 10/03/16 10:07 91 Nasal Cannula 4.00 10/03/16 00:00 97.8 71 17 123/72 91 10/02/16 21:16 92 Nasal Cannula 4.00 10/02/16 20:00 98.0 79 18 131/75 91 I/O 10/02/16 10/02/16 10/02/16 10/03/16 10/03/16 10/03/16 07:00 15:00 23:00 07:00 15:00 23:00 Intake Total 120 ml 480 ml 240 ml 240 ml Output Total 400 ml 500 ml 200 ml 1250 ml Balance -280 ml -20 ml 40 ml 240 ml -1250 ml Intake Oral 120 ml 480 ml 240 ml 240 ml IV Total 0 ml 0 ml 0 ml Output Urine Total 400 ml 500 ml 200 ml 500 ml Stool Total 750 ml # Voids 2 3 # Bowel Movements 1 0 1 4 Result Diagram: 10/03/169 10/03/16 043 Objective Remarks GENERAL: MBMN WM , on BIPAP SKIN: Warm and dry. HEAD: Normocephalic. EYES: No scleral icterus. No injection or drainage. NECK: Supple, trachea midline. No JVD or lymphadenopathy. CARDIOVASCULAR: Regular rate and rhythm without murmurs, gallops, or rubs. RESPIRATORY: Breath sounds equal bilaterally. No accessory muscle use. GASTROINTESTINAL: Abdomen soft, non-tender, MUSCULOSKELETAL: No cyanosis, or edema. BACK: Nontender without obvious deformity. No CVA tenderness. A/P Assessment and Plan RF, s/p Extubation Hypoxia Hypotension-resolved S/P Exp Lap COPD Nicotine use DM PLAN: Supplement 02 to keep sat >88% Aerosol nebs. Encourage PO Stable pulm status Velasquez Hill MD Oct 03, 2016 19:05
[2016-10-03 19:40] VITALS: O2SAT 96
[2016-10-03 20:00] VITALS: BP 128/69; PULSE 84; RESP 17; TEMP 97.8; O2SAT 91
[2016-10-03] MEDS: QUEtiapine FUMARATE 100 MG TAB PO SCH (21:44)
[2016-10-04] VITALS (7 sets, daily range): BP systolic 100–128; BP diastolic 56–74; PULSE 80–90; RESP 17–20; TEMP 96.5–98.7; O2SAT 0–94
[2016-10-04] MEDS: methylPREDNISolone SOD SUCC 125 MG/2 ML VIAL IV PUSH SCH (05:20)
[2016-10-04] MEDS: INSULIN NovoLIN REGULAR SUPPLEMENTAL SCALE SQ SCH ×4 (05:28→21:00)
[2016-10-04 05:44] LABS: HEMATOCRIT 42.7 % (39.0-51.0); MEAN CELL VOLUME 87.7 FL (80.0-100.0); MEAN CORPUSCULAR HEMOGLOBIN 29.1 PG (27.0-34.0); MEAN CORPUSCULAR HGB CONC 33.2 % (32.0-36.0); PLATELET COUNT 80 TH/MM3 (150-450); RED BLOOD COUNT 4.87 MIL/MM3 (4.50-5.90); RED CELL DISTRIBUTION WIDTH 15.5 % (11.6-17.2); WHITE BLOOD COUNT 28.2 TH/MM3 (4.0-11.0)
[2016-10-04 05:47] LABS: REVIEW FLAG FINAL
[2016-10-04 06:13] LABS: BICARBONATE 31.4 MEQ/L (21.0-32.0); POTASSIUM 3.2 MEQ/L (3.5-5.1)
[2016-10-04 06:34] LABS: CALCIUM-PROTEIN CORRECTED 8.7 MG/DL (8.5-10.1)
[2016-10-04] MEDS: RESP: BUDESONIDE 0.5 MG/2 ML NEB NEB SCH ×2 (08:10→19:29)
--- NOTE | 2016-10-04 09:10 | HHI.PR ---
Subjective Remarks f/u for respiratory failure and poor PO intake. patient has no complaints. he stated he is eating well but does not like the taste of the food. No acute events overnight. Continues to have cough but denied SOB. Objective Vitals Vital Signs Date Time Temp Pulse Resp B/P Pulse Ox O2 Delivery O2 Flow Rate FiO2 10/04/16 08:18 94 Nasal Cannula 4.00 10/04/16 00:00 98.7 80 17 128/74 91 10/03/16 21:00 Nasal Cannula 4.00 10/03/16 20:00 97.8 84 17 128/69 91 10/03/16 19:40 96 Nasal Cannula 4.00 10/03/16 16:00 98.1 90 16 97 10/03/16 16:00 98.4 88 16 110/68 97 10/03/16 12:00 98.1 90 16 106/65 97 10/03/16 10:07 91 Nasal Cannula 4.00 I/O 10/03/16 10/03/16 10/03/16 10/04/16 10/04/16 10/04/16 07:00 15:00 23:00 07:00 15:00 23:00 Intake Total 240 ml 240 ml 240 ml Output Total 1250 ml 200 ml 800 ml Balance 240 ml -1250 ml 40 ml -560 ml Intake Oral 240 ml 240 ml 240 ml IV Total 0 ml Output Urine Total 500 ml 200 ml 800 ml Stool Total 750 ml # Voids 2 3 # Bowel Movements 1 4 1 3 Result Diagram: 10/04/16 0500 10/04/16 0500 Objective Remarks GENERAL: in NAD with NG tube in place. CARDIOVASCULAR: Regular rate and rhythm without murmurs, gallops, or rubs. RESPIRATORY: No accessory muscle use. Clear to auscultation bilaterally GASTROINTESTINAL: Soft. Nondistended. No peritoneal signs. Normoactive bowel sounds. MUSCULOSKELETAL: No cyanosis, or edema. BACK: Nontender without obvious deformity. No CVA tenderness. Medications and IVs Current Medications Acetaminophen/ Hydrocodone Bitart ([place] 5-325 Mg) 1 tab ONCE ONCE PO ; Start 09/02/16 at 13:30; Stop 09/02/16 at 13:31; Status DC Ondansetron HCl (Zofran Odt) 4 mg ONCE ONCE PO Last administered on 09/02/16t 13:26; Start 09/02/16 at 13:30; Stop 09/02/16 at 13:31; Status DC Ketorolac Tromethamine (Toradol Inj) 60 mg ONCE ONCE IM Last administered on 13:37; Start 09/02/16 at 13:45; Stop 09/02/16 at 13:46; Status DC Diatrizoate Meglum/ Diatrizoate Sod ( Gastrobeatriz Liq) 18 ml STK-MED ONCE .ROUTE Last administered on 09/02/16 13:37; Start 09/02/16 at 13:35; Stop at 13:36; Status DC Ondansetron HCl (Zofran Inj) 4 mg ONCE ONCE IV PUSH ; Start 09/02/16 at 15:15; Stop 09/02/16 at 15:15; Status DC Morphine Sulfate (Morphine Inj) 4 mg ONCE ONCE IV PUSH Last administered on 15:20; Start 09/02/16 at 15:15; Stop 09/02/16 at 15:16; Status DC Morphine Sulfate (Morphine Inj) 4 mg ONCE ONCE IV PUSH ; Start 09/02/16 at 15:15 ; Stop 09/02/16 at 15:15; Status DC Ondansetron HCl (Zofran Inj) 4 mg ONCE ONCE IVP ; Start 09/02/16 at 15:15; Stop 09/02/16 at 15:15; Status DC IV Flush (NS Flush) 2 ml UNSCH PRN IVF FLUSH AFTER USING IV ACCESS Last administered on 09/02/16 15:20; Start 09/02/16 at 15:15; Stop 09/02/16 at 18:03; Status DC Iohexol 100 ml 100 ml STK-MED ONCE IV Last administered on 09/02/16 15:57; Start 09/02/16 at 15:57; Stop 09/02/16 at 15:58; Status DC Ciprofloxacin/ Dextrose 200 ml @ 200 mls/hr ONCE ONCE IV Last administered on 09/02/16 16:48; Start 09/02/16 at 16:45; Stop 09/02/16 at 17:44; Status DC Metronidazole 100 ml @ 100 mls/hr ONCE ONCE IV Last administered on 09/02/16 16:48; Start 09/02/16 at 16:45; Stop 09/02/16 at 17:44; Status DC Sodium Chloride (NS 1000 ml Inj) 1,000 ml @ 125 mls/hr Q8H IV Last administered on 09/10/16 16:00; Start 09/02/16 at 18:00; Stop 09/10/16 at 19:08 ; Status DC IV Flush (NS Flush) 2 ml UNSCH PRN FLUSH FLUSH AFTER USING IV ACCESS Last administered on 09/08/16 06:43; Start 09/02/16 at 17:45 IV Flush (NS Flush) 2 ml BID FLUSH Last administered on 10/03/16 21:00; Start 09/02/16 at 21:00 Acetaminophen (Tylenol) 650 mg Q4H PRN PO TEMP > 100.4; Start 09/02/16 at 17:45 Ondansetron HCl (Zofran Inj) 4 mg Q6H PRN IVP NAUSEA OR VOMITING Last administered on 09/08/16 09:04; Start 09/02/16 at 17:45 Magnesium Hydroxide (Milk Of Magnesia Liq) 30 ml Q12H PRN PO CONSTIPATION; Start 09/02/16 at 17:45 Enoxaparin Sodium (Lovenox Inj) 40 mg Q24H SQ Last administered on 10/03/16 16: 19; Start 09/02/16 at 17:45; Stop 10/04/16 at 09:04; Status DC Naloxone HCl 0.4 mg 0.4 mg UNSCH PRN IV SEE LABEL COMMENTS; Start 09/02/16 at 17 :45 Ciprofloxacin/ Dextrose 200 ml @ 200 mls/hr Q12H IV Last administered on 04:12; Start 09/03/16 at 04:00; Stop 09/11/16 at 11:35; Status DC Metronidazole (Flagyl 500 Mg Inj) 100 ml @ 100 mls/hr Q8H IV Last administered on 09/25/16 05:19; Start 09/02/16 at 23:00; Stop 09/25/16 at 11:50; Status DC Lisinopril (Prinivil) 10 mg DAILY PO Last administered on 10/03/16 09:35; Start 09/03/16 at 09:00 Dextrose (D50w (Vial) Inj) 25 ml UNSCH PRN IV PUSH HYPOGLYCEMIA-SEE COMMENTS Last administered on 09/27/16 16:05; Start 09/02/16 at 18:45; Stop 09/27/16 at 16: 21; Status DC Glucagon (Glucagon Inj) 1 mg UNSCH PRN OTHER HYPOGLYCEMIA-SEE COMMENTS; Start 09/02/16 at 18:45; Stop 09/27/16 at 16:21; Status DC Insulin Aspart (NovoLOG SUPPLEMENTAL SCALE) 1 ACHS SLIDING SCALE SQ Last administered on 09/14/16 22:43; Start 09/02/16 at 21:00; Stop 09/15/16 at 06:27 ; Status DC Morphine Sulfate (Morphine Inj) 2 mg Q3H PRN IV PUSH PAIN 1-5; Start 09/03/16 at 00:30; Stop 09/04/16 at 11:01; Status DC Morphine Sulfate (Morphine Inj) 4 mg Q3H PRN IV PUSH PAIN 6-10 Last administered on 09/04/16 09:49; Start 09/03/16 at 00:30; Stop 09/04/16 at 11:01 ; Status DC Ketorolac Tromethamine (Toradol Inj) 30 mg ONCE ONCE IV PUSH Last administered on 09/03/16 03:50; Start 09/03/16 at 02:15; Stop 09/03/16 at 02:16 ; Status DC Iohexol (Omnipaque 350 Inj) 76 ml STK-MED ONCE IV Last administered on 09:15; Start 09/04/16 at 09:15; Stop 09/04/16 at 09:16; Status DC Hydromorphone HCl (Dilaudid Pf Inj) 1 mg Q3HR PRN IV PUSH PAIN SCALE 6 TO 10 Last administered on 09/04/16 11:55; Start 09/04/16 at 12:00; Stop 09/04/16 at 13:18; Status DC Morphine Sulfate (Morphine Inj) 2 mg Q3H PRN IV PUSH PAIN SCALE 1 TO 6; Start 09/04/16 at 14:00 Morphine Sulfate (Morphine Inj) 4 mg Q3H PRN IV PUSH PAIN SCALE 7 TO 10 Last administered on 09/22/16 01:49; Start 09/04/16 at 13:30 Polyethylene Glycol/ Electrolytes (Colyte Liq) 4,000 ml ONCE ONCE PO Last administered on 09/05/16 16:40; Start 09/05/16 at 16:00; Stop 09/05/16 at 16:01 ; Status DC Promethazine HCl (Phenergan Supp) 25 mg Q6H PRN RECTAL NAUSEA OR VOMITING Last administered on 09/04/16 17:06; Start 09/04/16 at 16:45; Stop 09/05/16 at 21:00 ; Status DC Fluticasone Propionate (Flonase Anuj Spr) 1 spray BID NASAL Last administered on 10/03/16 21:45; Start 09/05/16 at 12:00 Loratadine (Claritin) 10 mg DAILY PO Last administered on 10/03/16 09:35; Start 09/06/16 at 09:00 Promethazine HCl 25 mg 25 mg ONCE ONCE PO Last administered on 09/05/16 22:04 ; Start 09/05/16 at 21:00; Stop 09/05/16 at 21:22; Status DC Azithromycin/ Sodium Chloride (Zithromax Inj/ NS 250 ml Inj) 250 ml @ 250 mls/ hr Q24H IV Last administered on 09/07/16 11:29; Start 09/06/16 at 11:00; Stop 09/07/16 at 14:50; Status DC Guaifenesin (Mucinex Er) 600 mg BID PO Last administered on 09/29/16 09:04; Start 09/06/16 at 11:00; Stop 09/29/16 at 18:15; Status DC Magnesium Citrate (Citroma Liq) 300 ml ONCE ONCE PO Last administered on 14:54; Start 09/06/16 at 14:30; Stop 09/06/16 at 14:31; Status DC Magnesium Citrate (Citroma Liq) 300 ml ONCE ONCE PO ; Start 09/06/16 at 18:00; Stop 09/06/16 at 18:01; Status DC Bisacodyl (Dulcolax Ec) 10 mg DAILY@18,21 PO Last administered on 09/06/16 21: 00; Start 09/06/16 at 18:00; Stop 09/06/16 at 21:01; Status DC Etomidate (Amidate Inj) 20 mg STK-MED ONCE IV PUSH ; Start 09/06/16 at 13:56; Stop 09/06/16 at 14:33; Status DC Ketamine HCl (Ketalar Inj) 500 mg STK-MED ONCE .ROUTE ; Start 09/06/16 at 14:50 ; Stop 09/06/16 at 14:51; Status DC Simethicone (Mylicon Chew) 80 mg ONCE ONCE CHEW Last administered on 22:23; Start 09/06/16 at 19:45; Stop 09/06/16 at 19:46; Status DC Albuterol/ Ipratropium (Duoneb Neb) 1 ampule Q6HR NEB NEB Last administered on 09/10/16 07:34; Start 09/06/16 at 22:00; Stop 09/10/16 at 22:00; Status DC Magnesium Citrate (Citroma Liq) 300 ml ONCE ONCE PO ; Start 09/08/16 at 12:00; Stop 09/08/16 at 12:01; Status DC Magnesium Citrate (Citroma Liq) 300 ml ONCE ONCE PO ; Start 09/08/16 at 18:00; Stop 09/08/16 at 18:01; Status DC Bisacodyl (Dulcolax Ec) 10 mg ONCE ONCE PO ; Start 09/08/16 at 18:00; Stop at 18:01; Status DC Bisacodyl 10 mg 10 mg ONCE ONCE PO ; Start 09/08/16 at 21:00; Stop 09/08/16 at 21:01; Status DC Sodium Chloride (NS 1000 ml Inj) 1,000 ml @ 999 mls/hr BOLUS ONCE IV Last administered on 09/08/16 13:00; Start 09/08/16 at 10:45; Stop 09/08/16 at 11:45 ; Status DC Albuterol Sulfate 1.25 mg 1.25 mg Q6HR NEB NEB Last administered on 09/12/16 09:54; Start 09/08/16 at 16:00; Stop 09/12/16 at 16:00; Status DC Sodium Chloride 500 ml @ 500 mls/hr BOLUS ONCE IV Last administered on 17:45; Start 09/08/16 at 17:30; Stop 09/08/16 at 18:29; Status DC Pantoprazole Sodium/Sodium Chloride (Protonix Inj/NS Inj) 100 ml @ 10 mls/hr CONTINUOUS IV Last administered on 09/09/16 07:29; Start 09/08/16 at 20:00; Stop 09/09/16 at 08:31; Status DC Diatrizoate Meglum/ Diatrizoate Sod 18 ml 18 ml ONCE ONCE PO Last administered on 09/08/16 21:34; Start 09/08/16 at 21:15; Stop 09/08/16 at 21:16 ; Status DC Sodium Chloride (NS 500 ml Inj) 500 ml @ 500 mls/hr BOLUS ONCE IV Last administered on 09/09/16 02:44; Start 09/09/16 at 02:45; Stop 09/09/16 at 03:44 ; Status DC Pantoprazole Sodium 40 mg 40 mg Q12H IV PUSH Last administered on 10/01/16 21: 02; Start 09/09/16 at 21:00; Stop 10/02/16 at 07:45; Status DC Sodium Chloride 500 ml @ 500 mls/hr BOLUS ONCE IV Last administered on 09:00; Start 09/09/16 at 09:00; Stop 09/09/16 at 09:59; Status DC Potassium Chloride 100 ml @ 50 mls/hr BOLUS ONCE IV Last administered on 09/10 09:40; Start 09/10/16 at 08:00; Stop 09/10/16 at 09:59; Status DC Clindamycin Phosphate/Sodium Chloride (Cleocin Inj/NS Inj) 104 ml @ 208 mls/hr Q8H IV Last administered on 09/11/16 06:56; Start 09/10/16 at 13:00; Stop at 11:35; Status DC Midazolam HCl 2 mg 2 mg STK-MED ONCE .ROUTE ; Start 09/10/16 at 19:03; Stop at 19:04; Status DC Lactated Ringer's 1,000 ml @ 125 mls/hr Q8H IV Last administered on 09/12/16 04:00; Start 09/10/16 at 20:00; Stop 09/12/16 at 18:36; Status DC Fentanyl Citrate 250 ml @ 0 mls/hr TITRATE IV Last administered on 3/27/17at 21 :04; Start 09/10/16 at 19:45; Stop 09/25/16 at 11:50; Status DC Midazolam HCl (Versed Inj) 100 ml @ 0 mls/hr TITRATE IV Last administered on 07:16; Start 09/10/16 at 20:00; Stop 09/15/16 at 13:04; Status DC Albumin Human 25 gm 25 gm NOW ONCE IV Last administered on 09/10/16 21:15; Start 09/10/16 at 20:00; Stop 09/10/16 at 20:01; Status DC Norepinephrine Bitartrate 250 ml @ As Directed STK-MED ONCE IV ; Start at 19:45; Stop 09/10/16 at 19:46; Status DC Sodium Chloride 1,000 ml @ 999 mls/hr BOLUS ONCE IV Last administered on 09/10 21:16; Start 09/10/16 at 20:00; Stop 09/10/16 at 21:00; Status DC Norepinephrine Bitartrate (Levophed-Dextrose Drip) 250 ml @ 0 mls/hr TITRATE IV Last administered on 09/11/16 12:30; Start 09/10/16 at 20:00; Stop 09/11/16 at 23:56; Status DC Terbutaline Sulfate (Brethine Inj) 1 mg UNSCH PRN SQ For Extravasation; Start 09/10/16 at 20:00; Stop 09/16/16 at 13:48; Status DC Etomidate (Amidate Inj) 20 mg STK-MED ONCE .ROUTE ; Start 09/10/16 at 20:04; Stop 09/10/16 at 20:05; Status DC Fentanyl Citrate 200 mcg 200 mcg STK-MED ONCE .ROUTE ; Start 09/10/16 at 20:06; Stop 09/10/16 at 20:07; Status DC Sodium Chloride (NS 1000 ml Inj) 1,000 ml @ 0 mls/hr NOW ONCE IV Last administered on 09/10/16 21:17; Start 09/10/16 at 21:00; Stop 09/10/16 at 21:01 ; Status DC Etomidate (Amidate Inj) 25 mg NOW ONCE IV PUSH Last administered on 09/10/16 20:10; Start 09/10/16 at 21:15; Stop 09/10/16 at 21:16; Status DC Rocuronium Curtis (Zemuron Inj) 50 mg NOW ONCE IV Last administered on 20:10; Start 09/10/16 at 21:15; Stop 09/10/16 at 21:16; Status DC Chlorhexidine Gluconate 15 ml 15 ml BID@08,20 MT Last administered on 09/29/16 20:00; Start 09/11/16 at 08:00; Stop 09/30/16 at 21:17; Status DC Sodium Chloride 1,000 ml @ 0 mls/hr BOLUS ONCE IV Last administered on 00:00; Start 09/10/16 at 22:45; Stop 09/10/16 at 22:46; Status DC Parenteral Electrolytes 1,000 ml @ 500 mls/hr Q2H IV Last administered on 09/11 01:53; Start 09/11/16 at 00:00; Stop 09/11/16 at 02:00; Status DC Sodium Chloride (NS 1000 ml Inj) 1,000 ml @ 0 mls/hr BOLUS ONCE IV Last administered on 09/11/16 06:56; Start 09/11/16 at 06:00; Stop 09/11/16 at 06:01 ; Status DC Albumin Human 25 gm 25 gm STK-MED ONCE .ROUTE Last administered on 09/11/16 10 :06; Start 09/11/16 at 10:06; Stop 09/11/16 at 10:07; Status DC Calcium Chloride/ Sodium Chloride (Calcium Chloride Inj/NS Inj) 120 ml @ 120 mls/hr ONCE ONCE IV Last administered on 09/11/16 11:08; Start 09/11/16 at 12 :00; Stop 09/11/16 at 12:59; Status DC Albumin Human (Albumin 5% Inj) 25 gm STK-MED ONCE .ROUTE Last administered on 10:40; Start 09/11/16 at 10:40; Stop 09/11/16 at 10:41; Status DC Albumin Human 12.5 gm 12.5 gm STK-MED ONCE IV Last administered on 09/11/16 11 :00; Start 09/11/16 at 10:42; Stop 09/11/16 at 10:43; Status DC Cefepime HCl 2000 mg/Sodium Chloride 100 ml @ 200 mls/hr Q8H IV Last administered on 09/22/16 04:15; Start 09/11/16 at 13:00; Stop 09/22/16 at 09:51 ; Status DC Vancomycin HCl 1750 mg/Sodium Chloride 517.5 ml @ 258.75 mls/ hr ONCE ONCE IV Last administered on 09/11/16 13:30; Start 09/11/16 at 12:00; Stop 09/11/16 at 13:59; Status DC Pharmacy Profile Note 0 ml @ 0 mls/hr UNSCH OTHER ; Start 09/11/16 at 11:45; Stop 09/13/16 at 13:04; Status DC Vancomycin HCl/ Sodium Chloride (Vancomycin Inj/ NS 500 ml Inj) 517.5 ml @ 258.75 mls/ hr Q12H IV Last administered on 09/13/16 00:11; Start 09/12/16 at 00:00; Stop 09/13/16 at 12:47; Status DC Miscellaneous Information SPECIFIC LAB TO BE ... ONCE ONCE XX Last administered on 09/13/16 11:25; Start 09/13/16 at 11:45; Stop 09/13/16 at 11:46 ; Status DC Milrinone Lactate 20 mg/Sodium Chloride 100 ml @ 8.12 mls/hr [id number] IV Last administered on 09/17/16 22:23; Start 09/11/16 at 17:00; Stop 09/18/16 at 17:19 ; Status DC Vasopressin/ Dextrose (Pitressin Inj/ D5W 100 ml Inj) 100 ml @ 1.5 mls/hr Q24H IV Last administered on 09/12/16 17:00; Start 09/11/16 at 17:00; Stop at 06:27; Status DC Hydrocortisone Sodium Succinate 50 mg 50 mg Q6HR IV PUSH Last administered on 12:00; Start 09/11/16 at 18:00; Stop 09/15/16 at 17:07; Status DC Norepinephrine Bitartrate/ Dextrose (Levophed Inj/ D5W Inj) 266 ml @ 0 mls/hr TITRATE IV Last administered on 09/13/16 20:30; Start 09/11/16 at 23:45; Stop 09/16/16 at 13:46; Status DC Albumin Human (Albumin 5% Inj) 12.5 gm STK-MED ONCE IV Last administered on 00:21; Start 09/12/16 at 00:21; Stop 09/12/16 at 00:22; Status DC Albumin Human (Albumin 5% Inj) 12.5 gm STK-MED ONCE IV ; Start 09/12/16 at 00:22 ; Stop 09/12/16 at 00:23; Status DC Albumin Human (Albumin 5% Inj) 25 gm NOW ONCE IV Last administered on 00:30; Start 09/12/16 at 00:30; Stop 09/12/16 at 00:31; Status DC Sodium Bicarbonate (Sodium Bicarbonate 8.4% Inj) 100 meq STK-MED ONCE .ROUTE ; Start 09/12/16 at 02:56; Stop 09/12/16 at 02:57; Status DC Sodium Bicarbonate (Sodium Bicarbonate 8.4% Inj) 100 meq NOW ONCE IV Last administered on 09/12/16 03:03; Start 09/12/16 at 03:15; Stop 09/12/16 at 03:16 ; Status DC Sodium Bicarbonate 100 meq 100 meq ONCE ONCE IV PUSH ; Start 09/12/16 at 03:15 ; Stop 09/12/16 at 03:16; Status UNV Epinephrine HCl/ Dextrose (Adrenalin (1:1000) Inj/D5W Inj) 250 ml @ 0 mls/hr TITRATE IV Last administered on 09/12/16 08:54; Start 09/12/16 at 06:30; Stop 09/15/16 at 06:27; Status DC Epinephrine HCl (Adrenalin (1:1000) Inj) 1 mg STK-MED ONCE .ROUTE Last administered on 09/12/16 04:40; Start 09/12/16 at 04:40; Stop 09/12/16 at 04:41 ; Status DC Digoxin 0.25 mg 0.25 mg ONCE ONCE IV PUSH Last administered on 09/12/16 08:00 ; Start 09/12/16 at 08:00; Stop 09/12/16 at 08:01; Status DC Fluconazole/ Sodium Chloride 200 ml @ 100 mls/hr Q24H IV Last administered on 09/21/16 11:59; Start 09/12/16 at 12:00; Stop 09/22/16 at 09:51; Status DC Potassium Chloride 100 ml @ 25 mls/hr BOLUS ONCE IV Last administered on 09/12 15:30; Start 09/12/16 at 15:30; Stop 09/12/16 at 19:29; Status DC Magnesium Sulfate/ Dextrose 100 ml @ 100 mls/hr ONCE ONCE IV Last administered on 09/12/16 15:30; Start 09/12/16 at 15:30; Stop 09/12/16 at 16:29 ; Status DC Amiodarone HCl 150 mg/Dextrose 100 ml @ 600 mls/hr ONCE ONCE IV Last administered on 09/12/16 16:16; Start 09/12/16 at 15:30; Stop 09/12/16 at 15:39 ; Status DC Amiodarone HCl 900 mg/Dextrose 500 ml @ 0 mls/hr CONTINUOUS IV ; Start 09/12/16 at 15:30; Stop 09/12/16 at 15:30; Status DC Amiodarone HCl/ Dextrose (Cordarone Inj/ D5W ([place]) Inj) 250 ml @ 0 mls/hr CONTINUOUS IV Last administered on 09/15/16 16:47; Start 09/12/16 at 15:30; Stop 09/16/16 at 09:39; Status DC Furosemide (Lasix Inj) 40 mg STK-MED ONCE .ROUTE Last administered on 15:40; Start 09/12/16 at 15:40; Stop 09/12/16 at 15:41; Status DC Lidocaine HCl (Xylocaine 1% Inj (50 ml)) 50 ml STK-MED ONCE .ROUTE ; Start 09/12 at 16:45; Stop 09/12/16 at 16:46; Status DC Furosemide (Lasix Inj) 40 mg ONCE ONCE IV PUSH ; Start 09/12/16 at 18:45; Stop 09/12/16 at 18:46; Status DC Furosemide 60 mg 60 mg ONCE ONCE IV PUSH Last administered on 09/13/16 08:56 ; Start 09/13/16 at 08:30; Stop 09/13/16 at 08:31; Status DC Lactated Ringer's 1,000 ml @ As Directed STK-MED ONCE IV ; Start 09/10/16 at 11 :15; Stop 09/13/16 at 11:16; Status DC Parenteral Electrolytes 2,000 ml @ As Directed STK-MED ONCE IV ; Start at 11:15; Stop 09/13/16 at 11:16; Status DC Potassium Chloride 100 ml @ 50 mls/hr Q2H PRN IV For Potassium 2.8 - 3.2 mEq/ L Last administered on 09/22/16t 06:11; Start 09/13/16 at 11:45; Stop 09/30/16 at 21:17; Status DC Potassium Chloride 100 ml @ 50 mls/hr Q2H PRN IV For Potassium 2.8 - 3.2 mEq/L ; Start 09/13/16 at 11:45; Stop 09/30/16 at 21:17; Status DC Potassium Chloride 100 ml @ 25 mls/hr UNSCH PRN IV For Potassium 3.3 - 3.5 mEq /L Last administered on 09/24/16t 05:55; Start 09/13/16 at 11:45; Stop 09/30/16 at 21:17; Status DC Potassium Chloride 100 ml @ 50 mls/hr Q2H PRN IV For Potassium 3.3 - 3.5 mEq/ L Last administered on 09/15/16 19:24; Start 09/13/16 at 11:45; Stop 09/30/16 at 21:17; Status DC Magnesium Sulfate/ Sodium Chloride (Magnesium Sulfate Inj/NS Inj) 100 ml @ 50 mls/hr UNSCH PRN IV For Magnesium 0.9 - 1.1 mg/dL; Start 09/13/16 at 11:45; Stop 09/30/16 at 21:17; Status DC Magnesium Oxide 800 mg 800 mg UNSCH PRN PO For Magnesium 1.2 - 1.6 mg/dL; Start 09/13/16 at 11:45; Stop 09/30/16 at 21:17; Status DC Magnesium Sulfate/ Sodium Chloride (Magnesium Sulfate Inj/NS Inj) 100 ml @ 50 mls/hr UNSCH PRN IV For Magnesium 1.2 - 1.6 mg/dL; Start 09/13/16 at 11:45; Stop 09/30/16 at 21:17; Status DC Potassium Phosphate 2000 mg 2,000 mg Q4H PRN PO For Phosphorus < 2.5 mg/dL Last administered on 09/21/16 12:46; Start 09/13/16 at 11:45; Stop 09/30/16 at 21:17; Status DC Sodium Phosphate/ Sodium Chloride (Sodium Phosphate Inj/NS 250 ml Inj) 250 ml @ 42 mls/hr UNSCH PRN IV For Phosphorus < 2.5 mg/dL Last administered on 07:18; Start 09/13/16 at 11:45; Stop 09/30/16 at 21:17; Status DC Potassium Phosphate 2000 mg 2,000 mg UNSCH PRN PO/TUBE SEE LABEL COMMENTS; Start 09/13/16 at 11:45; Stop 09/30/16 at 21:17; Status DC Potassium Phosphate 30 mmol/ Sodium Chloride 260 ml @ 42 mls/hr UNSCH PRN IV SEE LABEL COMMENTS Last administered on 09/25/16 09:37; Start 09/13/16 at 11:45 ; Stop 09/30/16 at 21:17; Status DC Vancomycin HCl/ Sodium Chloride (Vancomycin Inj/ NS 500 ml Inj) 517.5 ml @ 258.75 mls/ hr Q18H IV ; Start 09/13/16 at 22:00; Stop 09/13/16 at 22:00; Status DC Miscellaneous Information SPECIFIC LAB TO BE DRAWN:[facility]... ONCE ONCE XX ; Start 09/14/16 at 15:45; Stop 09/14/16 at 15:46; Status Cancel Epinephrine HCl (EPINEPHrine (1:10,000) INJ) 1 mg STK-MED ONCE IV ; Start at 05:00; Stop 09/13/16 at 14:07; Status DC Furosemide 60 mg 60 mg ONCE ONCE IV PUSH Last administered on 09/14/16 11:41 ; Start 09/14/16 at 11:30; Stop 09/14/16 at 11:31; Status DC Multivitamins/ Folic Acid/Amino Acids/ Electrolytes/ Dextrose (Mvi-12 Inj/ Folvite Inj/ Clinimix E 11/18) 1,010.2 ml @ 30 mls/hr Q24H IV-CENTRAL Last administered on 09/15/16 20:46; Start 09/14/16 at 20:00; Stop 09/16/16 at 19:59 ; Status DC Dextrose (D50w (Vial) Inj) 25 ml UNSCH PRN IV PUSH HYPOGLYCEMIA-SEE COMMENTS; Start 09/15/16 at 06:30; Stop 09/15/16 at 17:07; Status DC Insulin Human Regular (NovoLIN R SUPPLEMENTAL SCALE) 1 Q4HR SQ Last administered on 09/15/16 16:00; Start 09/15/16 at 08:00; Stop 09/15/16 at 17:07 ; Status DC Albuterol/ Ipratropium (Duoneb Neb) 1 ampule Q6HR NEB NEB Last administered on 09/22/16 16:38; Start 09/15/16 at 16:00; Stop 09/22/16 at 17:19; Status DC Albuterol Sulfate (Albuterol Neb) 2.5 mg Q2HR NEB PRN NEB dyspnea Last administered on 10/02/16 00:08; Start 09/15/16 at 14:00 Albuterol/ Ipratropium (Duoneb Neb) 1 ampule Q4HR NEB NEB ; Start 09/15/16 at 16:00; Stop 09/15/16 at 16:00; Status DC Albuterol/ Ipratropium (Duoneb Neb) 1 ampule Q2HR NEB PRN NEB dyspnea; Start at 13:30; Stop 09/15/16 at 13:30; Status DC Budesonide (Pulmicort Respule Neb) 0.5 mg Q12HR NEB NEB Last administered on 08:10; Start 09/15/16 at 20:00 Hydrocortisone Sodium Succinate (SoluCORTEF INJ) 50 mg Q8HR IV PUSH Last administered on 09/19/16 05:42; Start 09/15/16 at 22:00; Stop 09/19/16 at 09:39 ; Status DC Insulin Detemir (Levemir Inj) 12 units Q12HR SQ Last administered on 09/16/16 08:16; Start 09/15/16 at 21:00; Stop 09/16/16 at 09:39; Status DC Dextrose (D50w (Vial) Inj) 25 ml UNSCH PRN IV PUSH HYPOGLYCEMIA-SEE COMMENTS; Start 09/15/16 at 17:15; Status UNV Glucagon (Glucagon Inj) 1 mg UNSCH PRN OTHER HYPOGLYCEMIA-SEE COMMENTS; Start 09/15/16 at 17:15; Status UNV Insulin Human Regular 1 1 Q4HR SQ Last administered on 09/27/16 08:09; Start at 20:00; Stop 09/27/16 at 16:21; Status DC Calcium Gluconate 2 gm/Sodium Chloride 120 ml @ 120 mls/hr ONCE ONCE IV Last administered on 09/16/16 00:58; Start 09/16/16 at 00:45; Stop 09/16/16 at 01:44 ; Status DC Potassium Chloride 100 ml @ 50 mls/hr BOLUS ONCE IV Last administered on 09/16 12:26; Start 09/16/16 at 09:15; Stop 09/16/16 at 11:14; Status DC Magnesium Sulfate/ Dextrose 100 ml @ 100 mls/hr Q1H IV Last administered on 12:28; Start 09/16/16 at 10:00; Stop 09/16/16 at 11:59; Status DC Dexmedetomidine HCl (Precedex Inj) 50 ml @ 0 mls/hr TITRATE IV Last administered on 09/21/16 19:56; Start 09/16/16 at 09:45; Stop 09/21/16 at 21:00 ; Status DC Insulin Detemir 20 units 20 units Q12HR SQ Last administered on 09/16/16 21:19 ; Start 09/16/16 at 21:00; Stop 09/17/16 at 09:20; Status DC Multivitamins 10 ml/Folic Acid 1 mg/Amino Acids/ Electrolytes/ Dextrose 2,010.2 ml @ 30 mls/hr Q24H IV-CENTRAL Last administered on 09/17/16 20:37; Start at 20:00; Stop 09/18/16 at 12:13; Status DC Fat Emulsion Intravenous 250 ml @ 10 mls/hr Q24H IV-CENTRAL Last administered on 09/21/16 21:08; Start 09/16/16 at 20:00; Stop 09/22/16 at 19:20; Status DC Norepinephrine Bitartrate (Levophed-Dextrose Drip) 250 ml @ 0 mls/hr TITRATE IV Last administered on 09/17/16 06:50; Start 09/16/16 at 13:45; Stop 09/30/16 at 21:17; Status DC Terbutaline Sulfate (Brethine Inj) 1 mg UNSCH PRN SQ For Extravasation; Start 09/16/16 at 13:45 Midazolam HCl (Versed Inj) 5 mg ONCE ONCE IV PUSH Last administered on 13:45; Start 09/16/16 at 13:45; Stop 09/16/16 at 13:47; Status DC Fentanyl Citrate (fentaNYL INJ) 50 mcg ONCE ONCE IV PUSH Last administered on 09/16/16 13:45; Start 09/16/16 at 13:45; Stop 09/16/16 at 13:47; Status DC Sodium Chloride (NS Flush) DAILY IVF Last administered on 10/03/16 09:00; Start 09/17/16 at 09:00 Sodium Chloride UNSCH PRN IVF SEE PROTOCOL; Start 09/16/16 at 15:15 Potassium Phosphate/Sodium Chloride (Potassium Phosphate Inj/NS Inj) 155 ml @ 38.75 mls/ hr ONCE ONCE IV Last administered on 09/17/16 10:00; Start at 10:00; Stop 09/17/16 at 13:59; Status DC Insulin Detemir (Levemir Inj) 25 units Q12HR SQ Last administered on 09/18/16 09:00; Start 09/17/16 at 21:00; Stop 09/18/16 at 12:01; Status DC Insulin Detemir 10 units 10 units Q12HR SQ Last administered on 09/19/16 08:03 ; Start 09/18/16 at 21:00; Stop 09/19/16 at 09:39; Status DC Multivitamins/ Folic Acid/Amino Acids/ Electrolytes/ Dextrose (Mvi-12 Inj/ Folvite Inj/ Clinimix E 11/18) 1,010.2 ml @ 30 mls/hr Q24H IV-CENTRAL Last administered on 09/21/16 21:08; Start 09/18/16 at 20:00; Stop 09/22/16 at 13:10 ; Status DC Adenosine (Adenocard Inj) 6 mg STK-MED ONCE .ROUTE ; Start 09/19/16 at 01:35; Stop 09/19/16 at 02:16; Status DC Hydrocortisone Sodium Succinate (SoluCORTEF INJ) 50 mg BID IV PUSH Last administered on 09/21/16 08:34; Start 09/19/16 at 21:00; Stop 09/21/16 at 10:18 ; Status DC Insulin Detemir (Levemir Inj) 8 units Q12HR SQ Last administered on 09/26/16 10 :31; Start 09/19/16 at 21:00; Stop 09/26/16 at 10:48; Status DC Bisacodyl (Dulcolax Supp) 10 mg NOW ONCE RECTAL Last administered on 13:15; Start 09/20/16 at 13:15; Stop 09/20/16 at 13:16; Status DC Methylprednisolone Sodium Succinate (SoluMEDROL INJ) 80 mg Q8HR IV PUSH Last administered on 09/26/16 06:17; Start 09/21/16 at 11:00; Stop 09/26/16 at 10:49; Status DC Furosemide (Lasix Inj) 20 mg BID@09,18 IV PUSH Last administered on 09/25/16 08 :45; Start 09/21/16 at 18:00; Stop 09/25/16 at 11:41; Status DC Furosemide 20 mg 20 mg STAT ONCE IV PUSH Last administered on 09/21/16 12:30 ; Start 09/21/16 at 12:15; Stop 09/21/16 at 12:16; Status DC Dexmedetomidine HCl 400 mcg/ Sodium Chloride 100 ml @ 0 mls/hr TITRATE IV Last administered on 09/22/16 03:27; Start 09/21/16 at 20:15; Stop 09/22/16 at 04:04 ; Status DC Dexmedetomidine HCl/Sodium Chloride (Precedex Inj/NS 250 ml Inj) 250 ml @ 0 mls/ hr TITRATE IV Last administered on 09/24/16 13:44; Start 09/22/16 at 04:15; Stop 09/25/16 at 11:50; Status DC Potassium Bicarb/ Potassium Chloride (K-Lyte Cl Eff) 25 meq ONCE ONCE PO Last administered on 09/22/16 11:15; Start 09/22/16 at 10:45; Stop 09/22/16 at 10:54; Status DC Potassium Bicarb/ Potassium Chloride (K-Lyte Cl Eff) 25 meq Q12HR NG Last administered on 09/25/16 08:45; Start 09/22/16 at 10:45; Stop 09/25/16 at 11:41; Status DC Acetazolamide Sodium 500 mg 500 mg ONCE ONCE IV PUSH Last administered on 09/22 11:16; Start 09/22/16 at 10:45; Stop 09/22/16 at 10:54; Status DC Multivitamins/ Folic Acid/Amino Acids/ Electrolytes/ Dextrose (Mvi-12 Inj/ Folvite Inj/ Clinimix E 11/18) 2,010.2 ml @ 60 mls/hr Q24H IV-CENTRAL ; Start at 20:00; Stop 09/22/16 at 20:00; Status DC Acetazolamide Sodium (Diamox Inj) 500 mg ONCE ONCE IV PUSH Last administered on 09/23/16 15:36; Start 09/23/16 at 14:15; Stop 09/23/16 at 14:21; Status DC Quetiapine Fumarate (SEROquel) 50 mg BID PO Last administered on 09/25/16 08:45 ; Start 09/24/16 at 11:00; Stop 09/25/16 at 11:41; Status DC Water (Free Water) 200 ml Q4HR G-TUBE Last administered on 09/25/16 12:00; Start 09/24/16 at 12:00; Stop 09/25/16 at 14:00; Status DC Albuterol/ Ipratropium (Duoneb Neb) 1 ampule Q6HR NEB NEB Last administered on 09/29/16 16:00; Start 09/25/16 at 16:00; Stop 09/29/16 at 16:06; Status DC Quetiapine Fumarate (SEROquel) 25 mg BID PO Last administered on 09/28/16 08:34 ; Start 09/25/16 at 21:00; Stop 09/28/16 at 11:32; Status DC Insulin Detemir (Levemir Inj) 15 units Q12HR SQ ; Start 09/26/16 at 21:00; Stop 09/26/16 at 21:00; Status DC Insulin Detemir (Levemir Inj) 12 units Q12HR SQ Last administered on 09/27/16 08:08; Start 09/26/16 at 21:00; Stop 09/27/16 at 16:21; Status DC Methylprednisolone Sodium Succinate 60 mg 60 mg Q8HR IV PUSH Last administered on 09/28/16 04:52; Start 09/26/16 at 14:00; Stop 09/28/16 at 08:37; Status DC Sodium Chloride/ Sterile Water (Sodium Chloride 23.4% Inj/Sterile Water For Inj ) 1,009.625 ml @ 42 mls/hr Q24H IV Last administered on 09/28/16 15:49; Start 09/27/16 at 16:00; Stop 09/29/16 at 16:06; Status DC Insulin Detemir (Levemir Inj) 8 units Q12HR SQ Last administered on 10/03/16 21 :46; Start 09/27/16 at 21:00 Dextrose (D50w (Vial) Inj) 25 ml UNSCH PRN IV PUSH HYPOGLYCEMIA-SEE COMMENTS; Start 09/27/16 at 16:30 Glucagon (Glucagon Inj) 1 mg UNSCH PRN OTHER HYPOGLYCEMIA-SEE COMMENTS; Start 09/27/16 at 16:30 Insulin Human Regular (NovoLIN R SUPPLEMENTAL SCALE) 1 ACHS SLIDING SCALE SQ Last administered on 10/04/16 05:28; Start 09/27/16 at 21:00 Hydralazine HCl (Apresoline Inj) 10 mg Q1HR PRN IV PUSH SBP>160, DBP>90 Last administered on 09/28/16 16:07; Start 09/27/16 at 16:30 Labetalol HCl (Trandate Inj) 10 mg Q1HR PRN IV PUSH SBP>160, DBP>90, HR>65; Start 09/27/16 at 16:30; Stop 09/30/16 at 21:17; Status DC Nitroglycerin (Nitroglycerin 2% Oint) 2 inch Q6HR PRN TOPICAL SBP>160, DBP>90 Last administered on 09/28/16 17:22; Start 09/27/16 at 16:30 Methylprednisolone Sodium Succinate (SoluMEDROL INJ) 60 mg Q12H IV PUSH Last administered on 10/04/16 05:20; Start 09/28/16 at 17:00 Quetiapine Fumarate (SEROquel) 25 mg DAILY PO Last administered on 10/03/16 09: 35; Start 09/29/16 at 09:00 Quetiapine Fumarate (SEROquel) 50 mg HS PO Last administered on 10/03/16 21:44 ; Start 09/28/16 at 21:00 Miscellaneous (Pill Splitter) 1 ea UNSCH PRN OTHER SEE LABEL COMMENTS; Start at 12:00 Albuterol/ Ipratropium (Duoneb Neb) 1 ampule Q6HR NEB NEB Last administered on 10/03/16 19:39; Start 09/29/16 at 22:00; Stop 10/03/16 at 22:00; Status DC Guaifenesin (Mucinex Er) 600 mg BID PO Last administered on 10/03/16 21:44; Start 09/29/16 at 21:00 Potassium Chloride (KCl) 30 meq ONCE ONCE PO Last administered on 10/01/16 10: 05; Start 10/01/16 at 08:45; Stop 10/01/16 at 08:53; Status DC Pantoprazole Sodium (Protonix) 40 mg BID PO Last administered on 10/03/16 21:44 ; Start 10/02/16 at 09:00 Date of Insertion: Sep 16, 2016 Date of Removal: Sep 25, 2016 Line: Central Venous Catheter Side: Left Location: Internal, Jugular A/P Assessment and Plan Toxic metabolic encephalopathy -Due to patient's medical condition was being treated for. -Resolved. -Status post off Precedex drip and fentanyl drip. -Seroquel 25 twice a day. Wean down as tolerated A. 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 -Seam Stay Stitcher is following. Patient currently on nasal cannula. Patient on Solu-Medrol will switch to PO. -DuoNeb therapy every 6 hours with albuterol every 2 hours for breakthrough dyspnea -Pulmicort twice a day -Right chest tube discontinued 09/18 -Left chest tube discontinued 09/19 Postop day #21 exploratory lap lysis of adhesions - Dr. Henriquez Chronic pancreatitis Abdominal ascites Internal hemorrhoids Elevated transaminases -Status post EGD by GI. - Pathology revealed chronic gastritis inflammation -Says post colonoscopy by GI 09/06 -incomplete splenic flexure normal mucosa. Internal hemorrhoids. -NG tube removed and tolerating diet very well. ADA diet/. Pured With honey thickened liquids. -change to protonix 40 mg once a day. -Surgery signed off. Diabetes mellitus -Sliding-scale insulin with Accu-Cheks every 4 hours maintain euglycemia/High dose . -On Levemir 15 units twice a day. Holding home medication glipizide 10 mg by mouth daily Leukocytosis Anemia Right cephalic/basilic superficial thrombus Thrombocytopenia -Follow CBC. -platelets is decreasing. Will stop Lovenox and consult drop forge operator. SIRS -ID has stopped all antibiotics since 09/22 and patient continued to do well. -Multiple cultures obtained and all negative. Hypernatremia -Resolved with good by mouth intake. Diarrhea -C. difficile negative. Decondition -Due to severity of illness. PT/OT ff. Prophylaxis - DVT - SCD Discharge Planning Patient has thrombocytopenia needs further evaluation. Once evaluated by drop forge operator patient most likely can be discharged to SNF. Milady Saeed MD Oct 04, 2016 09:10
[2016-10-04] MEDS ORDERED: PANTOPRAZOLE SOD 40 MG DELAYED RELEASE TAB PO ONE (09:15)
[2016-10-04 09:47] LABS: PROTHROMBIN TIME - PATIENT 11.6 SEC (9.8-11.6)
[2016-10-04 10:09] LABS: INDIRECT BILIRUBIN 0.8 MG/DL (0.0-0.8)
[2016-10-04] MEDS: guaiFENesin E.R. 600 MG TAB PO SCH ×2 (10:55→23:16)
[2016-10-04] MEDS: QUEtiapine FUMARATE 25 MG TAB PO SCH (10:56)
[2016-10-04] MEDS: LISINOPRIL 10 MG TAB PO SCH (10:56)
[2016-10-04] MEDS: LORATADINE 10 MG TAB PO SCH (10:56)
[2016-10-04] MEDS: SODIUM CHLORIDE 0.9% FLUSH 10 ML FLUSH IVF SCH (10:57)
[2016-10-04] MEDS: FLUTICASONE PROPIONATE 50 MCG/ACT 16 GM NASAL SPRAY NASAL SCH ×2 (10:57→23:16)
[2016-10-04] MEDS: INSULIN DETEMIR 100 UNITS/ML VIAL SQ SCH ×2 (12:31→21:00)
--- NOTE | 2016-10-04 19:52 | HHI.PR ---
Subjective Remarks %, maintans sat61 YOWM with Pancreatitis,COPD,Nicotine use had Exp Lap Tolerates PO On 4LNC Mild SOB Occ nausea Has diarrohea on eating no Abd pain Objective Vital Signs Vital Signs Date Time Temp Pulse Resp B/P Pulse Ox O2 Delivery O2 Flow Rate FiO2 10/04/16 19:29 90 Nasal Cannula 1.00 10/04/16 16:00 98.2 90 20 102/58 94 10/04/16 12:00 96.8 87 20 101/56 0 10/04/16 08:18 94 Nasal Cannula 4.00 10/04/16 08:00 96.5 84 20 110/62 94 10/04/16 08:00 91 4.00 10/04/16 00:00 98.7 80 17 128/74 91 10/03/16 21:00 Nasal Cannula 4.00 10/03/16 20:00 97.8 84 17 128/69 91 I/O 10/03/16 10/03/16 10/03/16 10/04/16 10/04/16 10/04/16 07:00 15:00 23:00 07:00 15:00 23:00 Intake Total 240 ml 240 ml 240 ml 600 ml Output Total 1250 ml 200 ml 800 ml 550 ml Balance 240 ml -1250 ml 40 ml -560 ml 600 ml -550 ml Intake Oral 240 ml 240 ml 240 ml 600 ml IV Total 0 ml Output Urine Total 500 ml 200 ml 800 ml 200 ml Stool Total 750 ml 350 ml # Voids 2 3 # Bowel Movements 1 4 1 3 2 Result Diagram: 10/04/16 0500 10/04/16 0500 Objective Remarks GENERAL: MBMN WM , on BIPAP SKIN: Warm and dry. HEAD: Normocephalic. EYES: No scleral icterus. No injection or drainage. NECK: Supple, trachea midline. No JVD or lymphadenopathy. CARDIOVASCULAR: Regular rate and rhythm without murmurs, gallops, or rubs. RESPIRATORY: Breath sounds equal bilaterally. No accessory muscle use. GASTROINTESTINAL: Abdomen soft, non-tender, MUSCULOSKELETAL: No cyanosis, or edema. BACK: Nontender without obvious deformity. No CVA tenderness. A/P Assessment and Plan RF, s/p Extubation Hypoxia Hypotension-resolved S/P Exp Lap COPD Nicotine use DM PLAN: Supplement 02 to keep sat >88% Aerosol nebs. Encourage PO Stable pulm status Velasquez Hill MD Oct 04, 2016 19:52
[2016-10-04] MEDS ORDERED: predniSONE 20 MG TAB PO SCH (21:00)
[2016-10-04] MEDS: SODIUM CHLORIDE 0.9% FLUSH 5 ML FLUSH FLUSH SCH (21:00)
[2016-10-04] MEDS: predniSONE 20 MG TAB PO SCH (23:17)
[2016-10-04] MEDS: QUEtiapine FUMARATE 100 MG TAB PO SCH (23:17)
[2016-10-05] VITALS (7 sets, daily range): BP systolic 103–126; BP diastolic 60–70; PULSE 77–91; RESP 16–19; TEMP 96–98.4; O2SAT 88–93
[2016-10-05 06:19] LABS: HEMATOCRIT 47.9 % (39.0-51.0); MEAN CORPUSCULAR HEMOGLOBIN 28.5 PG (27.0-34.0); PLATELET COUNT 84 TH/MM3 (150-450); RED BLOOD COUNT 5.38 MIL/MM3 (4.50-5.90); RED CELL DISTRIBUTION WIDTH 15.4 % (11.6-17.2); WHITE BLOOD COUNT 24.3 TH/MM3 (4.0-11.0)
[2016-10-05] MEDS: INSULIN NovoLIN REGULAR SUPPLEMENTAL SCALE SQ SCH ×4 (06:20→21:00)
[2016-10-05 06:34] LABS: REVIEW FLAG FINAL
--- NOTE | 2016-10-05 06:37 | MB ---
cc: BEAU HERNANDEZ M.D. DATE OF CONSULTATION 10/04/2016 REASON FOR CONSULTATION Consult requested for thrombocytopenia. HISTORY OF PRESENT ILLNESS Kishor is a 61-year-old male. He has a history of hypertension, chronic pancreatitis, diabetes mellitus. He was admitted to the hospital for abdominal pain. The patient had multiple studies done. He is conservatively managed. His platelet count has dropped and I have been asked to see him for further evaluation. The patient denies any previous history of thrombocytopenia. He denies any bleeding episodes. He is a very poor historian. REVIEW OF SYSTEMS Not possible due to the patient being a poor historian. PAST MEDICAL HISTORY 1. Hypertension 2. Diabetes mellitus 3. 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 ALLERGIES PENICILLIN MEDICATIONS EMR FAMILY HISTORY Noncontributory SOCIAL HISTORY The patient smokes cigarettes and occasionally drinks alcohol. PHYSICAL EXAM This is a well-developed, elderly, ill-appearing white male in no apparent distress. VITAL SIGNS: Temperature 96.6, heart rate is 82, blood pressure 100/57, O2 saturation 93%. HEENT: PERRLA, EOMI, anicteric. No oral lesions are noted. NECK: Supple. There is no lymphadenopathy noted. LUNGS: Clear. No wheezing, rhonchi or rales. HEART: Regular rate and rhythm. ABDOMEN: Diffusely tender. EXTREMITIES: No pedal edema. NEUROLOGIC: Awake, alert, oriented times three. SKIN: No significant lesions are noted. ASSESSMENT Acute thrombocytopenia. The differential is sepsis versus DIC versus medications vs consumption. PLAN I have reviewed his available records. I have discussed with the patient regarding thrombocytopenia. He stated the thrombocytopenia developed during this admission. I have ordered the thrombocytopenia workup. He does not require any platelet transfusion as he is not bleeding. Further recommendations based on his hospital stay. Thank you for asking my opinion. MD KAJAL Cordoba/WILMER /11:01 PM /6:31 AM CRYSTAL
[2016-10-05 06:42] LABS: BICARBONATE 34.6 MEQ/L (21.0-32.0); POTASSIUM 3.4 MEQ/L (3.5-5.1); RHEUMATOID FACTOR TRIGGER 29.8 IU/ML (0.0-14.9)
[2016-10-05] MEDS: SODIUM CHLORIDE 0.9% FLUSH 5 ML FLUSH FLUSH SCH ×2 (09:00→21:00)
[2016-10-05] MEDS: predniSONE 20 MG TAB PO SCH (09:00)
[2016-10-05] MEDS: SODIUM CHLORIDE 0.9% FLUSH 10 ML FLUSH IVF SCH (09:00)
[2016-10-05] MEDS: RESP: BUDESONIDE 0.5 MG/2 ML NEB NEB SCH ×2 (09:09→20:58)
--- NOTE | 2016-10-05 09:34 | HHI.PR ---
Subjective Remarks Follow-up for thrombocytopenia, deconditioning, respiratory failure. Patient stated that they took a lot of blood for him and that he feels dizzy from it. Otherwise he has no complaints. Denied any chest pain, shortness of breathing area continues to have cough. Patient also complained about not having full range of motion of his left arm. He stated that it wasn't like this before he was hospitalized and that this happened during hospitalization. Patient unsure when this happened. Otherwise he has no complains. Deny any active bleeding. Objective Vitals Vital Signs Date Time Temp Pulse Resp B/P Pulse Ox O2 Delivery O2 Flow Rate FiO2 10/05/16 09:05 91 Nasal Cannula 4.00 10/05/16 08:00 96.0 90 18 118/60 10/05/16 00:00 96.2 77 18 103/60 93 10/04/16 20:00 96.6 82 18 100/57 93 10/04/16 19:29 90 Nasal Cannula 1.00 10/04/16 19:00 93 Room Air 10/04/16 16:00 98.2 90 20 102/58 94 10/04/16 12:00 96.8 87 20 101/56 0 I/O 10/04/16 10/04/16 10/04/16 10/05/16 10/05/16 10/05/16 07:00 15:00 23:00 07:00 15:00 23:00 Intake Total 240 ml 600 ml 120 ml 240 ml Output Total 800 ml 550 ml 300 ml Balance -560 ml 600 ml -430 ml -60 ml Intake Oral 240 ml 600 ml 120 ml 240 ml Output Urine Total 800 ml 200 ml 300 ml Stool Total 350 ml # Voids 1 # Bowel Movements 3 2 2 Result Diagram: 10/05/16 0557 10/05/16 0557 Objective Remarks GENERAL: in NAD with NG tube in place. CARDIOVASCULAR: Regular rate and rhythm without murmurs, gallops, or rubs. RESPIRATORY: No accessory muscle use. Clear to auscultation bilaterally GASTROINTESTINAL: Soft. Nondistended. No peritoneal signs. Normoactive bowel sounds. MUSCULOSKELETAL: No cyanosis, or edema. Left arm shoulder decreased range of motion. No edema noted. Strength is intact. BACK: Nontender without obvious deformity. No CVA tenderness. Medications and IVs Current Medications Acetaminophen/ Hydrocodone Bitart (Shirland 5-325 Mg) 1 tab ONCE ONCE PO ; Start 09/02/16 at 13:30; Stop 09/02/16 at 13:31; Status DC Ondansetron HCl (Zofran Odt) 4 mg ONCE ONCE PO Last administered on 09/02/16 13:26; Start 09/02/16 at 13:30; Stop 09/02/16 at 13:31; Status DC Ketorolac Tromethamine (Toradol Inj) 60 mg ONCE ONCE IM Last administered on 13:37; Start 09/02/16 at 13:45; Stop 09/02/16 at 13:46; Status DC Diatrizoate Meglum/ Diatrizoate Sod ( Gastroview Liq) 18 ml STK-MED ONCE .ROUTE Last administered on 09/02/16 13:37; Start 09/02/16 at 13:35; Stop at 13:36; Status DC Ondansetron HCl (Zofran Inj) 4 mg ONCE ONCE IV PUSH ; Start 09/02/16 at 15:15; Stop 09/02/16 at 15:15; Status DC Morphine Sulfate (Morphine Inj) 4 mg ONCE ONCE IV PUSH Last administered on 15:20; Start 09/02/16 at 15:15; Stop 09/02/16 at 15:16; Status DC Morphine Sulfate (Morphine Inj) 4 mg ONCE ONCE IV PUSH ; Start 09/02/16 at 15:15 ; Stop 09/02/16 at 15:15; Status DC Ondansetron HCl (Zofran Inj) 4 mg ONCE ONCE IVP ; Start 09/02/16 at 15:15; Stop 09/02/16 at 15:15; Status DC IV Flush (NS Flush) 2 ml UNSCH PRN IVF FLUSH AFTER USING IV ACCESS Last administered on 09/02/16 15:20; Start 09/02/16 at 15:15; Stop 09/02/16 at 18:03; Status DC Iohexol 100 ml 100 ml STK-MED ONCE IV Last administered on 09/02/16 15:57; Start 09/02/16 at 15:57; Stop 09/02/16 at 15:58; Status DC Ciprofloxacin/ Dextrose 200 ml @ 200 mls/hr ONCE ONCE IV Last administered on 09/02/16 16:48; Start 09/02/16 at 16:45; Stop 09/02/16 at 17:44; Status DC Metronidazole 100 ml @ 100 mls/hr ONCE ONCE IV Last administered on 09/02/16 16:48; Start 09/02/16 at 16:45; Stop 09/02/16 at 17:44; Status DC Sodium Chloride (NS 1000 ml Inj) 1,000 ml @ 125 mls/hr Q8H IV Last administered on 09/10/16 16:00; Start 09/02/16 at 18:00; Stop 09/10/16 at 19:08 ; Status DC IV Flush (NS Flush) 2 ml UNSCH PRN FLUSH FLUSH AFTER USING IV ACCESS Last administered on 09/08/16 06:43; Start 09/02/16 at 17:45 IV Flush (NS Flush) 2 ml BID FLUSH Last administered on 10/04/16 21:00; Start 09/02/16 at 21:00 Acetaminophen (Tylenol) 650 mg Q4H PRN PO TEMP > 100.4; Start 09/02/16 at 17:45 Ondansetron HCl (Zofran Inj) 4 mg Q6H PRN IVP NAUSEA OR VOMITING Last administered on 09/08/16 09:04; Start 09/02/16 at 17:45 Magnesium Hydroxide (Milk Of Magnesia Liq) 30 ml Q12H PRN PO CONSTIPATION; Start 09/02/16 at 17:45 Enoxaparin Sodium (Lovenox Inj) 40 mg Q24H SQ Last administered on 10/03/16 16: 19; Start 09/02/16 at 17:45; Stop 10/04/16 at 09:04; Status DC Naloxone HCl 0.4 mg 0.4 mg UNSCH PRN IV SEE LABEL COMMENTS; Start 09/02/16 at 17 :45 Ciprofloxacin/ Dextrose 200 ml @ 200 mls/hr Q12H IV Last administered on 04:12; Start 09/03/16 at 04:00; Stop 09/11/16 at 11:35; Status DC Metronidazole (Flagyl 500 Mg Inj) 100 ml @ 100 mls/hr Q8H IV Last administered on 09/25/16 05:19; Start 09/02/16 at 23:00; Stop 09/25/16 at 11:50; Status DC Lisinopril (Prinivil) 10 mg DAILY PO Last administered on 10/04/16 10:56; Start 09/03/16 at 09:00 Dextrose (D50w (Vial) Inj) 25 ml UNSCH PRN IV PUSH HYPOGLYCEMIA-SEE COMMENTS Last administered on 09/27/16 16:05; Start 09/02/16 at 18:45; Stop 09/27/16 at 16: 21; Status DC Glucagon (Glucagon Inj) 1 mg UNSCH PRN OTHER HYPOGLYCEMIA-SEE COMMENTS; Start 09/02/16 at 18:45; Stop 09/27/16 at 16:21; Status DC Insulin Aspart (NovoLOG SUPPLEMENTAL SCALE) 1 ACHS SLIDING SCALE SQ Last administered on 09/14/16 22:43; Start 09/02/16 at 21:00; Stop 09/15/16 at 06:27 ; Status DC Morphine Sulfate (Morphine Inj) 2 mg Q3H PRN IV PUSH PAIN 1-5; Start 09/03/16 at 00:30; Stop 09/04/16 at 11:01; Status DC Morphine Sulfate (Morphine Inj) 4 mg Q3H PRN IV PUSH PAIN 6-10 Last administered on 09/04/16 09:49; Start 09/03/16 at 00:30; Stop 09/04/16 at 11:01 ; Status DC Ketorolac Tromethamine (Toradol Inj) 30 mg ONCE ONCE IV PUSH Last administered on 09/03/16 03:50; Start 09/03/16 at 02:15; Stop 09/03/16 at 02:16 ; Status DC Iohexol (Omnipaque 350 Inj) 76 ml STK-MED ONCE IV Last administered on 09:15; Start 09/04/16 at 09:15; Stop 09/04/16 at 09:16; Status DC Hydromorphone HCl (Dilaudid Pf Inj) 1 mg Q3HR PRN IV PUSH PAIN SCALE 6 TO 10 Last administered on 09/04/16 11:55; Start 09/04/16 at 12:00; Stop 09/04/16 at 13:18; Status DC Morphine Sulfate (Morphine Inj) 2 mg Q3H PRN IV PUSH PAIN SCALE 1 TO 6; Start 09/04/16 at 14:00 Morphine Sulfate (Morphine Inj) 4 mg Q3H PRN IV PUSH PAIN SCALE 7 TO 10 Last administered on 09/22/16 01:49; Start 09/04/16 at 13:30 Polyethylene Glycol/ Electrolytes (Colyte Liq) 4,000 ml ONCE ONCE PO Last administered on 09/05/16 16:40; Start 09/05/16 at 16:00; Stop 09/05/16 at 16:01 ; Status DC Promethazine HCl (Phenergan Supp) 25 mg Q6H PRN RECTAL NAUSEA OR VOMITING Last administered on 09/04/16 17:06; Start 09/04/16 at 16:45; Stop 09/05/16 at 21:00 ; Status DC Fluticasone Propionate (Flonase Anuj Spr) 1 spray BID NASAL Last administered on 10/04/16 23:16; Start 09/05/16 at 12:00 Loratadine (Claritin) 10 mg DAILY PO Last administered on 10/04/16 10:56; Start 09/06/16 at 09:00 Promethazine HCl 25 mg 25 mg ONCE ONCE PO Last administered on 09/05/16 22:04 ; Start 09/05/16 at 21:00; Stop 09/05/16 at 21:22; Status DC Azithromycin/ Sodium Chloride (Zithromax Inj/ NS 250 ml Inj) 250 ml @ 250 mls/ hr Q24H IV Last administered on 09/07/16 11:29; Start 09/06/16 at 11:00; Stop 09/07/16 at 14:50; Status DC Guaifenesin (Mucinex Er) 600 mg BID PO Last administered on 09/29/16 09:04; Start 09/06/16 at 11:00; Stop 09/29/16 at 18:15; Status DC Magnesium Citrate (Citroma Liq) 300 ml ONCE ONCE PO Last administered on 14:54; Start 09/06/16 at 14:30; Stop 09/06/16 at 14:31; Status DC Magnesium Citrate (Citroma Liq) 300 ml ONCE ONCE PO ; Start 09/06/16 at 18:00; Stop 09/06/16 at 18:01; Status DC Bisacodyl (Dulcolax Ec) 10 mg DAILY@18,21 PO Last administered on 09/06/16 21: 00; Start 09/06/16 at 18:00; Stop 09/06/16 at 21:01; Status DC Etomidate (Amidate Inj) 20 mg STK-MED ONCE IV PUSH ; Start 09/06/16 at 13:56; Stop 09/06/16 at 14:33; Status DC Ketamine HCl (Ketalar Inj) 500 mg STK-MED ONCE .ROUTE ; Start 09/06/16 at 14:50 ; Stop 09/06/16 at 14:51; Status DC Simethicone (Mylicon Chew) 80 mg ONCE ONCE CHEW Last administered on 22:23; Start 09/06/16 at 19:45; Stop 09/06/16 at 19:46; Status DC Albuterol/ Ipratropium (Duoneb Neb) 1 ampule Q6HR NEB NEB Last administered on 09/10/16 07:34; Start 09/06/16 at 22:00; Stop 09/10/16 at 22:00; Status DC Magnesium Citrate (Citroma Liq) 300 ml ONCE ONCE PO ; Start 09/08/16 at 12:00; Stop 09/08/16 at 12:01; Status DC Magnesium Citrate (Citroma Liq) 300 ml ONCE ONCE PO ; Start 09/08/16 at 18:00; Stop 09/08/16 at 18:01; Status DC Bisacodyl (Dulcolax Ec) 10 mg ONCE ONCE PO ; Start 09/08/16 at 18:00; Stop at 18:01; Status DC Bisacodyl 10 mg 10 mg ONCE ONCE PO ; Start 09/08/16 at 21:00; Stop 09/08/16 at 21:01; Status DC Sodium Chloride (NS 1000 ml Inj) 1,000 ml @ 999 mls/hr BOLUS ONCE IV Last administered on 09/08/16 13:00; Start 09/08/16 at 10:45; Stop 09/08/16 at 11:45 ; Status DC Albuterol Sulfate 1.25 mg 1.25 mg Q6HR NEB NEB Last administered on 09/12/16 09:54; Start 09/08/16 at 16:00; Stop 09/12/16 at 16:00; Status DC Sodium Chloride 500 ml @ 500 mls/hr BOLUS ONCE IV Last administered on 17:45; Start 09/08/16 at 17:30; Stop 09/08/16 at 18:29; Status DC Pantoprazole Sodium/Sodium Chloride (Protonix Inj/NS Inj) 100 ml @ 10 mls/hr CONTINUOUS IV Last administered on 09/09/16 07:29; Start 09/08/16 at 20:00; Stop 09/09/16 at 08:31; Status DC Diatrizoate Meglum/ Diatrizoate Sod 18 ml 18 ml ONCE ONCE PO Last administered on 09/08/16 21:34; Start 09/08/16 at 21:15; Stop 09/08/16 at 21:16 ; Status DC Sodium Chloride (NS 500 ml Inj) 500 ml @ 500 mls/hr BOLUS ONCE IV Last administered on 09/09/16 02:44; Start 09/09/16 at 02:45; Stop 09/09/16 at 03:44 ; Status DC Pantoprazole Sodium 40 mg 40 mg Q12H IV PUSH Last administered on 10/01/16 21: 02; Start 09/09/16 at 21:00; Stop 10/02/16 at 07:45; Status DC Sodium Chloride 500 ml @ 500 mls/hr BOLUS ONCE IV Last administered on 09:00; Start 09/09/16 at 09:00; Stop 09/09/16 at 09:59; Status DC Potassium Chloride 100 ml @ 50 mls/hr BOLUS ONCE IV Last administered on 09/10 09:40; Start 09/10/16 at 08:00; Stop 09/10/16 at 09:59; Status DC Clindamycin Phosphate/Sodium Chloride (Cleocin Inj/NS Inj) 104 ml @ 208 mls/hr Q8H IV Last administered on 09/11/16 06:56; Start 09/10/16 at 13:00; Stop at 11:35; Status DC Midazolam HCl 2 mg 2 mg STK-MED ONCE .ROUTE ; Start 09/10/16 at 19:03; Stop at 19:04; Status DC Lactated Ringer's 1,000 ml @ 125 mls/hr Q8H IV Last administered on 09/12/16 04:00; Start 09/10/16 at 20:00; Stop 09/12/16 at 18:36; Status DC Fentanyl Citrate 250 ml @ 0 mls/hr TITRATE IV Last administered on 09/20/16 21 :04; Start 09/10/16 at 19:45; Stop 09/25/16 at 11:50; Status DC Midazolam HCl (Versed Inj) 100 ml @ 0 mls/hr TITRATE IV Last administered on 07:16; Start 09/10/16 at 20:00; Stop 09/15/16 at 13:04; Status DC Albumin Human 25 gm 25 gm NOW ONCE IV Last administered on 09/10/16 21:15; Start 09/10/16 at 20:00; Stop 09/10/16 at 20:01; Status DC Norepinephrine Bitartrate 250 ml @ As Directed STK-MED ONCE IV ; Start at 19:45; Stop 09/10/16 at 19:46; Status DC Sodium Chloride 1,000 ml @ 999 mls/hr BOLUS ONCE IV Last administered on 09/10 21:16; Start 09/10/16 at 20:00; Stop 09/10/16 at 21:00; Status DC Norepinephrine Bitartrate (Levophed-Dextrose Drip) 250 ml @ 0 mls/hr TITRATE IV Last administered on 09/11/16 12:30; Start 09/10/16 at 20:00; Stop 09/11/16 at 23:56; Status DC Terbutaline Sulfate (Brethine Inj) 1 mg UNSCH PRN SQ For Extravasation; Start 09/10/16 at 20:00; Stop 09/16/16 at 13:48; Status DC Etomidate (Amidate Inj) 20 mg STK-MED ONCE .ROUTE ; Start 09/10/16 at 20:04; Stop 09/10/16 at 20:05; Status DC Fentanyl Citrate 200 mcg 200 mcg STK-MED ONCE .ROUTE ; Start 09/10/16 at 20:06; Stop 09/10/16 at 20:07; Status DC Sodium Chloride (NS 1000 ml Inj) 1,000 ml @ 0 mls/hr NOW ONCE IV Last administered on 09/10/16 21:17; Start 09/10/16 at 21:00; Stop 09/10/16 at 21:01 ; Status DC Etomidate (Amidate Inj) 25 mg NOW ONCE IV PUSH Last administered on 09/10/16 20:10; Start 09/10/16 at 21:15; Stop 09/10/16 at 21:16; Status DC Rocuronium [place] (Zemuron Inj) 50 mg NOW ONCE IV Last administered on 20:10; Start 09/10/16 at 21:15; Stop 09/10/16 at 21:16; Status DC Chlorhexidine Gluconate 15 ml 15 ml BID@08,20 MT Last administered on 09/29/16 20:00; Start 09/11/16 at 08:00; Stop 09/30/16 at 21:17; Status DC Sodium Chloride 1,000 ml @ 0 mls/hr BOLUS ONCE IV Last administered on 00:00; Start 09/10/16 at 22:45; Stop 09/10/16 at 22:46; Status DC Parenteral Electrolytes 1,000 ml @ 500 mls/hr Q2H IV Last administered on 09/11 01:53; Start 09/11/16 at 00:00; Stop 09/11/16 at 02:00; Status DC Sodium Chloride (NS 1000 ml Inj) 1,000 ml @ 0 mls/hr BOLUS ONCE IV Last administered on 09/11/16 06:56; Start 09/11/16 at 06:00; Stop 09/11/16 at 06:01 ; Status DC Albumin Human 25 gm 25 gm STK-MED ONCE .ROUTE Last administered on 09/11/16 10 :06; Start 09/11/16 at 10:06; Stop 09/11/16 at 10:07; Status DC Calcium Chloride/ Sodium Chloride (Calcium Chloride Inj/NS Inj) 120 ml @ 120 mls/hr ONCE ONCE IV Last administered on 09/11/16 11:08; Start 09/11/16 at 12 :00; Stop 09/11/16 at 12:59; Status DC Albumin Human (Albumin 5% Inj) 25 gm STK-MED ONCE .ROUTE Last administered on 10:40; Start 09/11/16 at 10:40; Stop 09/11/16 at 10:41; Status DC Albumin Human 12.5 gm 12.5 gm STK-MED ONCE IV Last administered on 09/11/16 11 :00; Start 09/11/16 at 10:42; Stop 09/11/16 at 10:43; Status DC Cefepime HCl 2000 mg/Sodium Chloride 100 ml @ 200 mls/hr Q8H IV Last administered on 09/22/16 04:15; Start 09/11/16 at 13:00; Stop 09/22/16 at 09:51 ; Status DC Vancomycin HCl 1750 mg/Sodium Chloride 517.5 ml @ 258.75 mls/ hr ONCE ONCE IV Last administered on 09/11/16 13:30; Start 09/11/16 at 12:00; Stop 09/11/16 at 13:59; Status DC Pharmacy Profile Note 0 ml @ 0 mls/hr UNSCH OTHER ; Start 09/11/16 at 11:45; Stop 09/13/16 at 13:04; Status DC Vancomycin HCl/ Sodium Chloride (Vancomycin Inj/ NS 500 ml Inj) 517.5 ml @ 258.75 mls/ hr Q12H IV Last administered on 09/13/16 00:11; Start 09/12/16 at 00:00; Stop 09/13/16 at 12:47; Status DC Miscellaneous Information SPECIFIC LAB TO BE ... ONCE ONCE XX Last administered on 09/13/16 11:25; Start 09/13/16 at 11:45; Stop 09/13/16 at 11:46 ; Status DC Milrinone Lactate 20 mg/Sodium Chloride 100 ml @ 8.12 mls/hr [id number] IV Last administered on 09/17/16 22:23; Start 09/11/16 at 17:00; Stop 09/18/16 at 17:19 ; Status DC Vasopressin/ Dextrose (Pitressin Inj/ D5W 100 ml Inj) 100 ml @ 1.5 mls/hr Q24H IV Last administered on 09/12/16 17:00; Start 09/11/16 at 17:00; Stop at 06:27; Status DC Hydrocortisone Sodium Succinate 50 mg 50 mg Q6HR IV PUSH Last administered on 12:00; Start 09/11/16 at 18:00; Stop 09/15/16 at 17:07; Status DC Norepinephrine Bitartrate/ Dextrose (Levophed Inj/ D5W Inj) 266 ml @ 0 mls/hr TITRATE IV Last administered on 09/13/16 20:30; Start 09/11/16 at 23:45; Stop 09/16/16 at 13:46; Status DC Albumin Human (Albumin 5% Inj) 12.5 gm STK-MED ONCE IV Last administered on 00:21; Start 09/12/16 at 00:21; Stop 09/12/16 at 00:22; Status DC Albumin Human (Albumin 5% Inj) 12.5 gm STK-MED ONCE IV ; Start 09/12/16 at 00:22 ; Stop 09/12/16 at 00:23; Status DC Albumin Human (Albumin 5% Inj) 25 gm NOW ONCE IV Last administered on 00:30; Start 09/12/16 at 00:30; Stop 09/12/16 at 00:31; Status DC Sodium Bicarbonate (Sodium Bicarbonate 8.4% Inj) 100 meq STK-MED ONCE .ROUTE ; Start 09/12/16 at 02:56; Stop 09/12/16 at 02:57; Status DC Sodium Bicarbonate (Sodium Bicarbonate 8.4% Inj) 100 meq NOW ONCE IV Last administered on 09/12/16 03:03; Start 09/12/16 at 03:15; Stop 09/12/16 at 03:16 ; Status DC Sodium Bicarbonate 100 meq 100 meq ONCE ONCE IV PUSH ; Start 09/12/16 at 03:15 ; Stop 09/12/16 at 03:16; Status UNV Epinephrine HCl/ Dextrose (Adrenalin (1:1000) Inj/D5W Inj) 250 ml @ 0 mls/hr TITRATE IV Last administered on 09/12/16 08:54; Start 09/12/16 at 06:30; Stop 09/15/16 at 06:27; Status DC Epinephrine HCl (Adrenalin (1:1000) Inj) 1 mg STK-MED ONCE .ROUTE Last administered on 09/12/16 04:40; Start 09/12/16 at 04:40; Stop 09/12/16 at 04:41 ; Status DC Digoxin 0.25 mg 0.25 mg ONCE ONCE IV PUSH Last administered on 09/12/16 08:00 ; Start 09/12/16 at 08:00; Stop 09/12/16 at 08:01; Status DC Fluconazole/ Sodium Chloride 200 ml @ 100 mls/hr Q24H IV Last administered on 09/21/16 11:59; Start 09/12/16 at 12:00; Stop 09/22/16 at 09:51; Status DC Potassium Chloride 100 ml @ 25 mls/hr BOLUS ONCE IV Last administered on 09/12 15:30; Start 09/12/16 at 15:30; Stop 09/12/16 at 19:29; Status DC Magnesium Sulfate/ Dextrose 100 ml @ 100 mls/hr ONCE ONCE IV Last administered on 09/12/16 15:30; Start 09/12/16 at 15:30; Stop 09/12/16 at 16:29 ; Status DC Amiodarone HCl 150 mg/Dextrose 100 ml @ 600 mls/hr ONCE ONCE IV Last administered on 09/12/16 16:16; Start 09/12/16 at 15:30; Stop 09/12/16 at 15:39 ; Status DC Amiodarone HCl 900 mg/Dextrose 500 ml @ 0 mls/hr CONTINUOUS IV ; Start 09/12/16 at 15:30; Stop 09/12/16 at 15:30; Status DC Amiodarone HCl/ Dextrose (Cordarone Inj/ D5W (Jeff) Inj) 250 ml @ 0 mls/hr CONTINUOUS IV Last administered on 09/15/16 16:47; Start 09/12/16 at 15:30; Stop 09/16/16 at 09:39; Status DC Furosemide (Lasix Inj) 40 mg STK-MED ONCE .ROUTE Last administered on 15:40; Start 09/12/16 at 15:40; Stop 09/12/16 at 15:41; Status DC Lidocaine HCl (Xylocaine 1% Inj (50 ml)) 50 ml STK-MED ONCE .ROUTE ; Start 09/12 at 16:45; Stop 09/12/16 at 16:46; Status DC Furosemide (Lasix Inj) 40 mg ONCE ONCE IV PUSH ; Start 09/12/16 at 18:45; Stop 09/12/16 at 18:46; Status DC Furosemide 60 mg 60 mg ONCE ONCE IV PUSH Last administered on 09/13/16 08:56 ; Start 09/13/16 at 08:30; Stop 09/13/16 at 08:31; Status DC Lactated Ringer's 1,000 ml @ As Directed STK-MED ONCE IV ; Start 09/10/16 at 11 :15; Stop 09/13/16 at 11:16; Status DC Parenteral Electrolytes 2,000 ml @ As Directed STK-MED ONCE IV ; Start at 11:15; Stop 09/13/16 at 11:16; Status DC Potassium Chloride 100 ml @ 50 mls/hr Q2H PRN IV For Potassium 2.8 - 3.2 mEq/ L Last administered on 09/22/16 06:11; Start 09/13/16 at 11:45; Stop 09/30/16 at 21:17; Status DC Potassium Chloride 100 ml @ 50 mls/hr Q2H PRN IV For Potassium 2.8 - 3.2 mEq/L ; Start 09/13/16 at 11:45; Stop 09/30/16 at 21:17; Status DC Potassium Chloride 100 ml @ 25 mls/hr UNSCH PRN IV For Potassium 3.3 - 3.5 mEq /L Last administered on 09/24/16 05:55; Start 09/13/16 at 11:45; Stop 09/30/16 at 21:17; Status DC Potassium Chloride 100 ml @ 50 mls/hr Q2H PRN IV For Potassium 3.3 - 3.5 mEq/ L Last administered on 09/15/16 19:24; Start 09/13/16 at 11:45; Stop 09/30/16 at 21:17; Status DC Magnesium Sulfate/ Sodium Chloride (Magnesium Sulfate Inj/NS Inj) 100 ml @ 50 mls/hr UNSCH PRN IV For Magnesium 0.9 - 1.1 mg/dL; Start 09/13/16 at 11:45; Stop 09/30/16 at 21:17; Status DC Magnesium Oxide 800 mg 800 mg UNSCH PRN PO For Magnesium 1.2 - 1.6 mg/dL; Start 09/13/16 at 11:45; Stop 09/30/16 at 21:17; Status DC Magnesium Sulfate/ Sodium Chloride (Magnesium Sulfate Inj/NS Inj) 100 ml @ 50 mls/hr UNSCH PRN IV For Magnesium 1.2 - 1.6 mg/dL; Start 09/13/16 at 11:45; Stop 09/30/16 at 21:17; Status DC Potassium Phosphate 2000 mg 2,000 mg Q4H PRN PO For Phosphorus < 2.5 mg/dL Last administered on 09/21/16 12:46; Start 09/13/16 at 11:45; Stop 09/30/16 at 21:17; Status DC Sodium Phosphate/ Sodium Chloride (Sodium Phosphate Inj/NS 250 ml Inj) 250 ml @ 42 mls/hr UNSCH PRN IV For Phosphorus < 2.5 mg/dL Last administered on 07:18; Start 09/13/16 at 11:45; Stop 09/30/16 at 21:17; Status DC Potassium Phosphate 2000 mg 2,000 mg UNSCH PRN PO/TUBE SEE LABEL COMMENTS; Start 09/13/16 at 11:45; Stop 09/30/16 at 21:17; Status DC Potassium Phosphate 30 mmol/ Sodium Chloride 260 ml @ 42 mls/hr UNSCH PRN IV SEE LABEL COMMENTS Last administered on 09/25/16 09:37; Start 09/13/16 at 11:45 ; Stop 09/30/16 at 21:17; Status DC Vancomycin HCl/ Sodium Chloride (Vancomycin Inj/ NS 500 ml Inj) 517.5 ml @ 258.75 mls/ hr Q18H IV ; Start 09/13/16 at 22:00; Stop 09/13/16 at 22:00; Status DC Miscellaneous Information SPECIFIC LAB TO BE DRAWN:[facility]... ONCE ONCE XX ; Start 09/14/16 at 15:45; Stop 09/14/16 at 15:46; Status Cancel Epinephrine HCl (EPINEPHrine (1:10,000) INJ) 1 mg STK-MED ONCE IV ; Start at 05:00; Stop 09/13/16 at 14:07; Status DC Furosemide 60 mg 60 mg ONCE ONCE IV PUSH Last administered on 09/14/16 11:41 ; Start 09/14/16 at 11:30; Stop 09/14/16 at 11:31; Status DC Multivitamins/ Folic Acid/Amino Acids/ Electrolytes/ Dextrose (Mvi-12 Inj/ Folvite Inj/ Clinimix E 11/18) 1,010.2 ml @ 30 mls/hr Q24H IV-CENTRAL Last administered on 09/15/16 20:46; Start 09/14/16 at 20:00; Stop 09/16/16 at 19:59 ; Status DC Dextrose (D50w (Vial) Inj) 25 ml UNSCH PRN IV PUSH HYPOGLYCEMIA-SEE COMMENTS; Start 09/15/16 at 06:30; Stop 09/15/16 at 17:07; Status DC Insulin Human Regular (NovoLIN R SUPPLEMENTAL SCALE) 1 Q4HR SQ Last administered on 09/15/16 16:00; Start 09/15/16 at 08:00; Stop 09/15/16 at 17:07 ; Status DC Albuterol/ Ipratropium (Duoneb Neb) 1 ampule Q6HR NEB NEB Last administered on 09/22/16 16:38; Start 09/15/16 at 16:00; Stop 09/22/16 at 17:19; Status DC Albuterol Sulfate (Albuterol Neb) 2.5 mg Q2HR NEB PRN NEB dyspnea Last administered on 10/02/16 00:08; Start 09/15/16 at 14:00 Albuterol/ Ipratropium (Duoneb Neb) 1 ampule Q4HR NEB NEB ; Start 09/15/16 at 16:00; Stop 09/15/16 at 16:00; Status DC Albuterol/ Ipratropium (Duoneb Neb) 1 ampule Q2HR NEB PRN NEB dyspnea; Start at 13:30; Stop 09/15/16 at 13:30; Status DC Budesonide (Pulmicort Respule Neb) 0.5 mg Q12HR NEB NEB Last administered on 09:09; Start 09/15/16 at 20:00 Hydrocortisone Sodium Succinate (SoluCORTEF INJ) 50 mg Q8HR IV PUSH Last administered on 09/19/16 05:42; Start 09/15/16 at 22:00; Stop 09/19/16 at 09:39 ; Status DC Insulin Detemir (Levemir Inj) 12 units Q12HR SQ Last administered on 09/16/16 08:16; Start 09/15/16 at 21:00; Stop 09/16/16 at 09:39; Status DC Dextrose (D50w (Vial) Inj) 25 ml UNSCH PRN IV PUSH HYPOGLYCEMIA-SEE COMMENTS; Start 09/15/16 at 17:15; Status UNV Glucagon (Glucagon Inj) 1 mg UNSCH PRN OTHER HYPOGLYCEMIA-SEE COMMENTS; Start 09/15/16 at 17:15; Status UNV Insulin Human Regular 1 1 Q4HR SQ Last administered on 09/27/16 08:09; Start at 20:00; Stop 09/27/16 at 16:21; Status DC Calcium Gluconate 2 gm/Sodium Chloride 120 ml @ 120 mls/hr ONCE ONCE IV Last administered on 09/16/16 00:58; Start 09/16/16 at 00:45; Stop 09/16/16 at 01:44 ; Status DC Potassium Chloride 100 ml @ 50 mls/hr BOLUS ONCE IV Last administered on 09/16 12:26; Start 09/16/16 at 09:15; Stop 09/16/16 at 11:14; Status DC Magnesium Sulfate/ Dextrose 100 ml @ 100 mls/hr Q1H IV Last administered on 12:28; Start 09/16/16 at 10:00; Stop 09/16/16 at 11:59; Status DC Dexmedetomidine HCl (Precedex Inj) 50 ml @ 0 mls/hr TITRATE IV Last administered on 09/21/16 19:56; Start 09/16/16 at 09:45; Stop 09/21/16 at 21:00 ; Status DC Insulin Detemir 20 units 20 units Q12HR SQ Last administered on 09/16/16 21:19 ; Start 09/16/16 at 21:00; Stop 09/17/16 at 09:20; Status DC Multivitamins 10 ml/Folic Acid 1 mg/Amino Acids/ Electrolytes/ Dextrose 2,010.2 ml @ 30 mls/hr Q24H IV-CENTRAL Last administered on 09/17/16 20:37; Start at 20:00; Stop 09/18/16 at 12:13; Status DC Fat Emulsion Intravenous 250 ml @ 10 mls/hr Q24H IV-CENTRAL Last administered on 09/21/16 21:08; Start 09/16/16 at 20:00; Stop 09/22/16 at 19:20; Status DC Norepinephrine Bitartrate (Levophed-Dextrose Drip) 250 ml @ 0 mls/hr TITRATE IV Last administered on 09/17/16 06:50; Start 09/16/16 at 13:45; Stop 09/30/16 at 21:17; Status DC Terbutaline Sulfate (Brethine Inj) 1 mg UNSCH PRN SQ For Extravasation; Start 09/16/16 at 13:45 Midazolam HCl (Versed Inj) 5 mg ONCE ONCE IV PUSH Last administered on 13:45; Start 09/16/16 at 13:45; Stop 09/16/16 at 13:47; Status DC Fentanyl Citrate (fentaNYL INJ) 50 mcg ONCE ONCE IV PUSH Last administered on 09/16/16 13:45; Start 09/16/16 at 13:45; Stop 09/16/16 at 13:47; Status DC Sodium Chloride (NS Flush) DAILY IVF Last administered on 10/04/16 10:57; Start 09/17/16 at 09:00 Sodium Chloride UNSCH PRN IVF SEE PROTOCOL; Start 09/16/16 at 15:15 Potassium Phosphate/Sodium Chloride (Potassium Phosphate Inj/NS Inj) 155 ml @ 38.75 mls/ hr ONCE ONCE IV Last administered on 09/17/16 10:00; Start at 10:00; Stop 09/17/16 at 13:59; Status DC Insulin Detemir (Levemir Inj) 25 units Q12HR SQ Last administered on 09/18/16 09:00; Start 09/17/16 at 21:00; Stop 09/18/16 at 12:01; Status DC Insulin Detemir 10 units 10 units Q12HR SQ Last administered on 09/19/16 08:03 ; Start 09/18/16 at 21:00; Stop 09/19/16 at 09:39; Status DC Multivitamins/ Folic Acid/Amino Acids/ Electrolytes/ Dextrose (Mvi-12 Inj/ Folvite Inj/ Clinimix E 11/18) 1,010.2 ml @ 30 mls/hr Q24H IV-CENTRAL Last administered on 09/21/16 21:08; Start 09/18/16 at 20:00; Stop 09/22/16 at 13:10 ; Status DC Adenosine (Adenocard Inj) 6 mg STK-MED ONCE .ROUTE ; Start 09/19/16 at 01:35; Stop 09/19/16 at 02:16; Status DC Hydrocortisone Sodium Succinate (SoluCORTEF INJ) 50 mg BID IV PUSH Last administered on 09/21/16 08:34; Start 09/19/16 at 21:00; Stop 09/21/16 at 10:18 ; Status DC Insulin Detemir (Levemir Inj) 8 units Q12HR SQ Last administered on 09/26/16 10 :31; Start 09/19/16 at 21:00; Stop 09/26/16 at 10:48; Status DC Bisacodyl (Dulcolax Supp) 10 mg NOW ONCE RECTAL Last administered on 13:15; Start 09/20/16 at 13:15; Stop 09/20/16 at 13:16; Status DC Methylprednisolone Sodium Succinate (SoluMEDROL INJ) 80 mg Q8HR IV PUSH Last administered on 09/26/16 06:17; Start 09/21/16 at 11:00; Stop 09/26/16 at 10:49; Status DC Furosemide (Lasix Inj) 20 mg BID@09,18 IV PUSH Last administered on 09/25/16 08 :45; Start 09/21/16 at 18:00; Stop 09/25/16 at 11:41; Status DC Furosemide 20 mg 20 mg STAT ONCE IV PUSH Last administered on 09/21/16 12:30 ; Start 09/21/16 at 12:15; Stop 09/21/16 at 12:16; Status DC Dexmedetomidine HCl 400 mcg/ Sodium Chloride 100 ml @ 0 mls/hr TITRATE IV Last administered on 09/22/16 03:27; Start 09/21/16 at 20:15; Stop 09/22/16 at 04:04 ; Status DC Dexmedetomidine HCl/Sodium Chloride (Precedex Inj/NS 250 ml Inj) 250 ml @ 0 mls/ hr TITRATE IV Last administered on 09/24/16 13:44; Start 09/22/16 at 04:15; Stop 09/25/16 at 11:50; Status DC Potassium Bicarb/ Potassium Chloride (K-Lyte Cl Eff) 25 meq ONCE ONCE PO Last administered on 09/22/16 11:15; Start 09/22/16 at 10:45; Stop 09/22/16 at 10:54; Status DC Potassium Bicarb/ Potassium Chloride (K-Lyte Cl Eff) 25 meq Q12HR NG Last administered on 09/25/16 08:45; Start 09/22/16 at 10:45; Stop 09/25/16 at 11:41; Status DC Acetazolamide Sodium 500 mg 500 mg ONCE ONCE IV PUSH Last administered on 09/22 11:16; Start 09/22/16 at 10:45; Stop 09/22/16 at 10:54; Status DC Multivitamins/ Folic Acid/Amino Acids/ Electrolytes/ Dextrose (Mvi-12 Inj/ Folvite Inj/ Clinimix E 11/18) 2,010.2 ml @ 60 mls/hr Q24H IV-CENTRAL ; Start at 20:00; Stop 09/22/16 at 20:00; Status DC Acetazolamide Sodium (Diamox Inj) 500 mg ONCE ONCE IV PUSH Last administered on 09/23/16 15:36; Start 09/23/16 at 14:15; Stop 09/23/16 at 14:21; Status DC Quetiapine Fumarate (SEROquel) 50 mg BID PO Last administered on 09/25/16 08:45 ; Start 09/24/16 at 11:00; Stop 09/25/16 at 11:41; Status DC Water (Free Water) 200 ml Q4HR G-TUBE Last administered on 09/25/16 12:00; Start 09/24/16 at 12:00; Stop 09/25/16 at 14:00; Status DC Albuterol/ Ipratropium (Duoneb Neb) 1 ampule Q6HR NEB NEB Last administered on 09/29/16 16:00; Start 09/25/16 at 16:00; Stop 09/29/16 at 16:06; Status DC Quetiapine Fumarate (SEROquel) 25 mg BID PO Last administered on 09/28/16 08:34 ; Start 09/25/16 at 21:00; Stop 09/28/16 at 11:32; Status DC Insulin Detemir (Levemir Inj) 15 units Q12HR SQ ; Start 09/26/16 at 21:00; Stop 09/26/16 at 21:00; Status DC Insulin Detemir (Levemir Inj) 12 units Q12HR SQ Last administered on 09/27/16 08:08; Start 09/26/16 at 21:00; Stop 09/27/16 at 16:21; Status DC Methylprednisolone Sodium Succinate 60 mg 60 mg Q8HR IV PUSH Last administered on 09/28/16 04:52; Start 09/26/16 at 14:00; Stop 09/28/16 at 08:37; Status DC Sodium Chloride/ Sterile Water (Sodium Chloride 23.4% Inj/Sterile Water For Inj ) 1,009.625 ml @ 42 mls/hr Q24H IV Last administered on 09/28/16 15:49; Start 09/27/16 at 16:00; Stop 09/29/16 at 16:06; Status DC Insulin Detemir (Levemir Inj) 8 units Q12HR SQ Last administered on 10/04/16 21:00; Start 09/27/16 at 21:00 Dextrose (D50w (Vial) Inj) 25 ml UNSCH PRN IV PUSH HYPOGLYCEMIA-SEE COMMENTS; Start 09/27/16 at 16:30 Glucagon (Glucagon Inj) 1 mg UNSCH PRN OTHER HYPOGLYCEMIA-SEE COMMENTS; Start 09/27/16 at 16:30 Insulin Human Regular (NovoLIN R SUPPLEMENTAL SCALE) 1 ACHS SLIDING SCALE SQ Last administered on 10/04/16 17:59; Start 09/27/16 at 21:00 Hydralazine HCl (Apresoline Inj) 10 mg Q1HR PRN IV PUSH SBP>160, DBP>90 Last administered on 09/28/16 16:07; Start 09/27/16 at 16:30 Labetalol HCl (Trandate Inj) 10 mg Q1HR PRN IV PUSH SBP>160, DBP>90, HR>65; Start 09/27/16 at 16:30; Stop 09/30/16 at 21:17; Status DC Nitroglycerin (Nitroglycerin 2% Oint) 2 inch Q6HR PRN TOPICAL SBP>160, DBP>90 Last administered on 09/28/16 17:22; Start 09/27/16 at 16:30 Methylprednisolone Sodium Succinate (SoluMEDROL INJ) 60 mg Q12H IV PUSH Last administered on 10/04/16 05:20; Start 09/28/16 at 17:00; Stop 10/04/16 at 09:07 ; Status DC Quetiapine Fumarate (SEROquel) 25 mg DAILY PO Last administered on 10/04/16 10 :56; Start 09/29/16 at 09:00 Quetiapine Fumarate (SEROquel) 50 mg HS PO Last administered on 10/04/16 23:17 ; Start 09/28/16 at 21:00 Miscellaneous (Pill Splitter) 1 ea UNSCH PRN OTHER SEE LABEL COMMENTS; Start at 12:00 Albuterol/ Ipratropium (Duoneb Neb) 1 ampule Q6HR NEB NEB Last administered on 10/03/16 19:39; Start 09/29/16 at 22:00; Stop 10/03/16 at 22:00; Status DC Guaifenesin (Mucinex Er) 600 mg BID PO Last administered on 10/04/16 23:16; Start 09/29/16 at 21:00 Potassium Chloride (KCl) 30 meq ONCE ONCE PO Last administered on 10/01/16 10: 05; Start 10/01/16 at 08:45; Stop 10/01/16 at 08:53; Status DC Pantoprazole Sodium (Protonix) 40 mg BID PO Last administered on 10/03/16 21:44 ; Start 10/02/16 at 09:00; Stop 10/04/16 at 09:11; Status DC Prednisone (Deltasone) 20 mg BID PO ; Start 10/04/16 at 21:00; Stop 10/04/16 at 21:00; Status DC Prednisone (Deltasone) 40 mg BID PO Last administered on 10/04/16 23:17; Start 10/04/16 at 21:00 Pantoprazole Sodium (Protonix) 40 mg ONCE ONCE PO Last administered on 10:56; Start 10/04/16 at 09:15; Stop 10/04/16 at 09:34; Status DC Date of Insertion: Sep 16, 2016 Date of Removal: Sep 25, 2016 Line: Central Venous Catheter Side: Left Location: Internal, Jugular A/P Assessment and Plan Toxic metabolic encephalopathy -Due to patient's medical condition was being treated for. -Resolved. -Status post off Precedex drip and fentanyl drip. -Seroquel 25 twice a day. Wean down as tolerated A. 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 -Lock Operator is following. Patient currently on nasal cannula. Patient on Solu-Medrol will switch to PO. -DuoNeb therapy every 6 hours with albuterol every 2 hours for breakthrough dyspnea -Pulmicort twice a day -Right chest tube discontinued 09/18 -Left chest tube discontinued 09/19 Postop day #21 exploratory lap lysis of adhesions - Dr. Henriquez Chronic pancreatitis Abdominal ascites Internal hemorrhoids Elevated transaminases -Status post EGD by GI. - Pathology revealed chronic gastritis inflammation -Says post colonoscopy by GI 09/06 -incomplete splenic flexure normal mucosa. Internal hemorrhoids. -NG tube removed and tolerating diet very well. ADA diet/. Pured With honey thickened liquids. -change to protonix 40 mg once a day. -Surgery signed off. Diabetes mellitus -Sliding-scale insulin with Accu-Cheks every 4 hours maintain euglycemia/High dose . -On Levemir 15 units twice a day. Holding home medication glipizide 10 mg by mouth daily Leukocytosis Anemia Right cephalic/basilic superficial thrombus Thrombocytopenia -Follow CBC. -platelets decreased but is stable. No active bleeding. Airplane Electrician consulted and following. SIRS -ID has stopped all antibiotics since 09/22 and patient continued to do well. -Multiple cultures obtained and all negative. Hypernatremia -Resolved with good by mouth intake. Diarrhea -C. difficile negative. Decondition -Due to severity of illness. PT/OT ff. Left frozen shoulder -Will get an x-ray of the shoulder. -Otherwise he needs to continue with PT/OT. Prophylaxis - DVT - SCD Discharge Planning Acute thrombocytopenia. Airplane Electrician is working up diagnosis. Once cleared by associate director financial aid can be discharged to SNF. Milady Saeed MD Oct 05, 2016 09:34
[2016-10-05] MEDS: FLUTICASONE PROPIONATE 50 MCG/ACT 16 GM NASAL SPRAY NASAL SCH (09:48)
[2016-10-05] MEDS: LORATADINE 10 MG TAB PO SCH (09:51)
[2016-10-05] MEDS: QUEtiapine FUMARATE 25 MG TAB PO SCH (09:51)
[2016-10-05] MEDS: LISINOPRIL 10 MG TAB PO SCH (09:51)
[2016-10-05] MEDS: guaiFENesin E.R. 600 MG TAB PO SCH (09:51)
[2016-10-05] MEDS: INSULIN DETEMIR 100 UNITS/ML VIAL SQ SCH ×2 (09:52→21:00)
--- NOTE | 2016-10-05 10:32 | RADRPT ---
EXAM DATE/TIME: 10/05/2016 10:13 [facility] COMPARISON: No previous studies available for comparison. INDICATIONS : Left shoulder pain, unable to move shoulder, no known injury. MEDICAL HISTORY : None. SURGICAL HISTORY : None. ENCOUNTER: Initial ACUITY: 1 week PAIN SCORE: 2/10 LOCATION: Left shoulder FINDINGS: No fracture or dislocation. There are calcifications of the left subclavian and axillary artery. Norm al bone density. There is calcification across the coracoclavicular joint space. CONCLUSION: No acute disease. John Payne MD on October 05, 2016 at 10:28 Board Certified Radiologist. This report was verified electronically.
--- NOTE | 2016-10-05 12:57 | PD.ONC.PN ---
Subjective Subjective Remarks Afebrile overnight. Patient resting comfortably. No reported bleeding. Objective Data Date Time Temp Pulse Resp B/P Pulse Ox O2 Delivery O2 Flow Rate FiO2 10/05/16 09:05 91 Nasal Cannula 4.00 10/05/16 08:00 96.0 90 18 118/60 10/05/16 00:00 96.2 77 18 103/60 93 10/04/16 20:00 96.6 82 18 100/57 93 10/04/16 19:29 90 Nasal Cannula 1.00 10/04/16 19:00 93 Room Air 10/04/16 16:00 98.2 90 20 102/58 94 10/05/16 10/05/16 10/05/16 07:00 15:00 23:00 Intake Total 240 ml Output Total 300 ml Balance -60 ml Result Diagram: 10/05/16 0557 10/05/16 0557 Laboratory Results Laboratory Tests Test 10/05/16 10/05/16 05:57 11:51 White Blood Count 24.3 TH/MM3 Red Blood Count 5.38 MIL/MM3 Hemoglobin 15.3 GM/DL Hematocrit 47.9 % Mean Corpuscular Volume 89.0 FL Mean Corpuscular Hemoglobin 28.5 PG Mean Corpuscular Hemoglobin 32.0 % Concent Red Cell Distribution Width 15.4 % Platelet Count 84 TH/MM3 Mean Platelet Volume 10.5 FL Sodium Level 141 MEQ/L Potassium Level 3.4 MEQ/L Chloride Level 101 MEQ/L Carbon Dioxide Level 34.6 MEQ/L Anion Gap 5 MEQ/L Blood Urea Nitrogen 22 MG/DL Creatinine 0.42 MG/DL Estimat Glomerular Filtration 208 ML/MIN Rate Random Glucose 69 MG/DL Calcium Level 7.7 MG/DL Vitamin B12 Level 542 PG/ML Folate 17.5 NG/ML Rheumatoid Factor Screen POSITIVE Rheumatoid Factor Titer 29.8 IU/ML Fibrinogen 171 mg/dL Imaging Studies Last 24 hours Impressions Shoulder X-Ray 10/05/16 0000 Signed Impressions: Service Date/Time: Wednesday, October 05, 2016 10:13 - CONCLUSION: No acute disease. John Payne MD Administered Medications Medications (Trade) Dose Ordered Sig/Alfred Route PRN Reason Start Time Stop Time Status Last Admin Dose Admin IV Flush (NS Flush) 2 ml UNSCH PRN FLUSH FLUSH AFTER USING IV ACCESS 09/02/16 17:45 09/08/16 06:43 IV Flush (NS Flush) 2 ml BID FLUSH 09/02/16 21:00 10/04/16 21:00 Ondansetron HCl (Zofran Inj) 4 mg Q6H PRN IVP NAUSEA OR VOMITING 09/02/16 17:45 09/08/16 09:04 Lisinopril (Prinivil) 10 mg DAILY PO 09/03/16 09:00 10/05/16 09:51 Morphine Sulfate (Morphine Inj) 4 mg Q3H PRN IV PUSH PAIN SCALE 7 TO 10 09/04/16 13:30 09/22/16 01:49 Fluticasone Propionate (Flonase Anuj Spr) 1 spray BID NASAL 09/05/16 12:00 10/05/16 09:48 Loratadine (Claritin) 10 mg DAILY PO 09/06/16 09:00 10/05/16 09:51 Sodium Chloride (NS Flush) DAILY IVF 09/17/16 09:00 10/04/16 10:57 Insulin Detemir (Levemir Inj) 8 units Q12HR SQ 09/27/16 21:00 10/05/16 09:52 Hydralazine HCl (Apresoline Inj) 10 mg Q1HR PRN IV PUSH SBP>160, DBP>90 09/27/16 16:30 09/28/16 16:07 Nitroglycerin (Nitroglycerin 2% Oint) 2 inch Q6HR PRN TOPICAL SBP>160, DBP>90 09/27/16 16:30 09/28/16 17:22 Quetiapine Fumarate (SEROquel) 25 mg DAILY PO 09/29/16 09:00 10/05/16 09:51 Quetiapine Fumarate (SEROquel) 50 mg HS PO 09/28/16 21:00 10/04/16 23:17 Guaifenesin (Mucinex Er) 600 mg BID PO 09/29/16 21:00 10/05/16 09:51 Prednisone (Deltasone) 40 mg BID PO 10/04/16 21:00 10/05/16 09:00 Objective Remarks GENERAL: Elderly male, lying in bed in nad. SKIN: Warm and dry. HEAD: Normocephalic. EYES: No scleral icterus. No injection or drainage. NECK: Supple, trachea midline. CARDIOVASCULAR: +S1/S2 RESPIRATORY: anterior rothman with occasional rhonchi. GASTROINTESTINAL: Abdomen soft, non-tender, nondistended. EXTREMITIES: No cyanosis MUSCULOSKELETAL: Adequate muscle tone. NEUROLOGICAL: awake and alert, normal speech Assessment/Plan Problem List: (1) Thrombocytopenia Status: Acute Plan: 10/05: platelet count stable at 84K today. will obtain u/s LE to r/o DVT. await rest of workup --differential is sepsis versus DIC versus medications. --RF + --hepatitis panel pending --HIT pending --CT ab/pelvis showed normal spleen Assessment 61y/o male admitted with abdominal pain. Hematology consulted for thrombocytopenia. -- history of hypertension, chronic pancreatitis, diabetes mellitus. Attending Statement denies any new c/o Hep panel and HIV neg. RF positive, ENMA is pending NL B12, folate , Iron and fibrinogen.. HIT neg. Doppler US = Bilat DVT. Thrombocytopenia is due comsumption from DVT. start Lovenox. Mai Leslie Oct 05, 2016 12:57 Elliott Lazar MD Oct 05, 2016 20:25
--- NOTE | 2016-10-05 15:05 | RADRPT ---
EXAM DATE/TIME: 10/05/2016 14:02 [facility] COMPARISON: No previous studies available for comparison. INDICATIONS : Bilateral leg pain. MEDICAL HISTORY : Methicillin-resistant Staphylococcus aureus. Gastroesophageal reflux disease. Hypercholesterolemia. C OPD. Hypertension. Pancreatitis. SURGICAL HISTORY : Cholecystectomy. ENCOUNTER: Initial ACUITY: 1 day PAIN SCORE: 3/10 LOCATION: Bilateral legs. .No TECHNIQUE: Venous ultrasound of the left and right leg was performed from the inguinal ligament to the proximal calf. Real-time, color Doppler and spectral tracing, compression and augmentation techniques were us ed. FINDINGS: There is occlusive thrombus present in the right proximal femoral vein. The mid and distal portions o f the femoral vein, popliteal, peroneal, posterior tibial and greater saphenous veins as well as the common femoral vein are patent. On the left, there is nonocclusive thrombus in the common femoral vei n. The femoral, popliteal, peroneal, posterior tibial and greater saphenous veins are patent. CONCLUSION: DVT bilaterally. John Payne MD on October 05, 2016 at 15:02 Board Certified Radiologist. This report was verified electronically.
[2016-10-05 16:59] LABS: HEPARIN AB OD 0.012 O.D. (0.000-0.300); HEPARIN INDUCED PLATELET AB NEGATIVE (NEGATIVE)
--- NOTE | 2016-10-05 18:26 | HHI.PR ---
Subjective Remarks %, maintans sat61 YOWM with Pancreatitis,COPD,Nicotine use had Exp Lap Tolerates PO On 4LNC Mild SOB Occ nausea Has diarrohea, improving no Abd pain Objective Vital Signs Vital Signs Date Time Temp Pulse Resp B/P Pulse Ox O2 Delivery O2 Flow Rate FiO2 10/05/16 16:00 98.4 91 19 115/70 92 10/05/16 12:00 97.6 88 16 126/67 92 10/05/16 09:05 91 Nasal Cannula 4.00 10/05/16 08:10 Room Air 4.00 21 10/05/16 08:00 96.0 90 18 118/60 10/05/16 00:00 96.2 77 18 103/60 93 10/04/16 20:00 96.6 82 18 100/57 93 10/04/16 19:29 90 Nasal Cannula 1.00 10/04/16 19:00 93 Room Air I/O 10/04/16 10/04/16 10/04/16 10/05/16 10/05/16 10/05/16 07:00 15:00 23:00 07:00 15:00 23:00 Intake Total 240 ml 600 ml 120 ml 240 ml Output Total 800 ml 550 ml 300 ml Balance -560 ml 600 ml -430 ml -60 ml Intake Oral 240 ml 600 ml 120 ml 240 ml Output Urine Total 800 ml 200 ml 300 ml Stool Total 350 ml # Voids 1 # Bowel Movements 3 2 2 Result Diagram: 10/05/16 0557 10/05/16 0557 Objective Remarks GENERAL: MBMN WM , on BIPAP SKIN: Warm and dry. HEAD: Normocephalic. EYES: No scleral icterus. No injection or drainage. NECK: Supple, trachea midline. No JVD or lymphadenopathy. CARDIOVASCULAR: Regular rate and rhythm without murmurs, gallops, or rubs. RESPIRATORY: Breath sounds equal bilaterally. No accessory muscle use. GASTROINTESTINAL: Abdomen soft, non-tender, MUSCULOSKELETAL: No cyanosis, or edema. BACK: Nontender without obvious deformity. No CVA tenderness. A/P Assessment and Plan RF, s/p Extubation Hypoxia Hypotension-resolved S/P Exp Lap COPD Nicotine use DM Thrombocytopenia PLAN: Supplement 02 to keep sat >88% Aerosol nebs. Encourage PO Stable pulm status monitor Platlet count Velasquez Hill MD Oct 05, 2016 18:26
[2016-10-05] MEDS ORDERED: ENOXAPARIN SODIUM 80 MG/0.8 ML SYRINGE SQ SCH (20:30)
[2016-10-06] VITALS: BP 100/61; PULSE 76; RESP 17; TEMP 97.4; O2SAT 92
[2016-10-06] MEDS: ENOXAPARIN SODIUM 80 MG/0.8 ML SYRINGE SQ SCH ×2 (00:57→09:00)
[2016-10-06] MEDS: predniSONE 20 MG TAB PO SCH (00:57)
[2016-10-06] MEDS: FLUTICASONE PROPIONATE 50 MCG/ACT 16 GM NASAL SPRAY NASAL SCH ×2 (00:57→09:00)
[2016-10-06] MEDS: guaiFENesin E.R. 600 MG TAB PO SCH ×2 (00:58→09:00)
[2016-10-06] MEDS: QUEtiapine FUMARATE 100 MG TAB PO SCH (00:58)
[2016-10-06] MEDS: INSULIN NovoLIN REGULAR SUPPLEMENTAL SCALE SQ SCH ×3 (06:55→16:00)
[2016-10-06 07:52] LABS: HEMATOCRIT 41.9 % (39.0-51.0); MEAN CELL VOLUME 88.5 FL (80.0-100.0); MEAN CORPUSCULAR HEMOGLOBIN 28.4 PG (27.0-34.0); MEAN CORPUSCULAR HGB CONC 32.1 % (32.0-36.0); PLATELET COUNT 74 TH/MM3 (150-450); RED BLOOD COUNT 4.74 MIL/MM3 (4.50-5.90); RED CELL DISTRIBUTION WIDTH 15.7 % (11.6-17.2); WHITE BLOOD COUNT 17.7 TH/MM3 (4.0-11.0)
[2016-10-06 07:54] LABS: REVIEW FLAG FINAL
[2016-10-06 08:00] VITALS: BP 123/69; PULSE 94; RESP 18; TEMP 97.2; O2SAT 92
[2016-10-06] MEDS: RESP: BUDESONIDE 0.5 MG/2 ML NEB NEB SCH (08:12)
[2016-10-06 08:14] VITALS: O2SAT 92
[2016-10-06 08:14] LABS: POTASSIUM 3.3 MEQ/L (3.5-5.1)
[2016-10-06 08:31] LABS: CALCIUM-PROTEIN CORRECTED 8.5 MG/DL (8.5-10.1)
[2016-10-06] MEDS: SODIUM CHLORIDE 0.9% FLUSH 5 ML FLUSH FLUSH SCH (09:00)
[2016-10-06] MEDS: INSULIN DETEMIR 100 UNITS/ML VIAL SQ SCH (09:00)
[2016-10-06] MEDS: QUEtiapine FUMARATE 25 MG TAB PO SCH (09:00)
[2016-10-06] MEDS: SODIUM CHLORIDE 0.9% FLUSH 10 ML FLUSH IVF SCH (09:00)
[2016-10-06] MEDS: LISINOPRIL 10 MG TAB PO SCH (09:00)
[2016-10-06] MEDS: LORATADINE 10 MG TAB PO SCH (09:00)
--- NOTE | 2016-10-06 09:46 | HHI.PR ---
Subjective Remarks f/u for thrombocytopenia and decrease ROM of left shoulder patient continues to c/o not being able to move shoulder. Otherwise no other complaints. Denied any N/V or abdominal pain. Remains afebrile. Objective Vitals Vital Signs Date Time Temp Pulse Resp B/P Pulse Ox O2 Delivery O2 Flow Rate FiO2 10/06/16 08:14 92 Nasal Cannula 5.00 10/06/16 08:00 97.2 94 18 123/69 92 10/06/16 00:00 97.4 76 17 100/61 92 10/05/16 20:58 88 Nasal Cannula 5.00 10/05/16 20:00 97.9 83 17 103/62 91 10/05/16 19:00 92 Nasal Cannula 5.00 10/05/16 16:00 98.4 91 19 115/70 92 10/05/16 12:00 97.6 88 16 126/67 92 I/O 10/05/16 10/05/16 10/05/16 10/06/16 10/06/16 10/06/16 07:00 15:00 23:00 07:00 15:00 23:00 Intake Total 240 ml 240 ml 240 ml Output Total 300 ml 400 ml 800 ml Balance -60 ml -160 ml -560 ml Intake Oral 240 ml 240 ml 240 ml Output Urine Total 300 ml 400 ml 800 ml # Bowel Movements 2 1 Result Diagram: 10/06/1662510/06/16625 Objective Remarks GENERAL: in NAD CARDIOVASCULAR: Regular rate and rhythm without murmurs, gallops, or rubs. RESPIRATORY: No accessory muscle use. Clear to auscultation bilaterally GASTROINTESTINAL: Soft. Nondistended. No peritoneal signs. Normoactive bowel sounds. MUSCULOSKELETAL: No cyanosis, or edema. Left arm shoulder decreased range of motion. No edema noted. Strength is intact. BACK: Nontender without obvious deformity. No CVA tenderness. Medications and IVs Current Medications Acetaminophen/ Hydrocodone Bitart ([place] 5-325 Mg) 1 tab ONCE ONCE PO ; Start 09/02/16 at 13:30; Stop 09/02/16 at 13:31; Status DC Ondansetron HCl (Zofran Odt) 4 mg ONCE ONCE PO Last administered on 09/02/16t 13:26; Start 09/02/16 at 13:30; Stop 09/02/16 at 13:31; Status DC Ketorolac Tromethamine (Toradol Inj) 60 mg ONCE ONCE IM Last administered on 13:37; Start 09/02/16 at 13:45; Stop 09/02/16 at 13:46; Status DC Diatrizoate Meglum/ Diatrizoate Sod (Md Jean Dave) 18 ml STK-MED ONCE .ROUTE Last administered on 09/02/16 13:37; Start 09/02/16 at 13:35; Stop at 13:36; Status DC Ondansetron HCl (Zofran Inj) 4 mg ONCE ONCE IV PUSH ; Start 09/02/16 at 15:15; Stop 09/02/16 at 15:15; Status DC Morphine Sulfate (Morphine Inj) 4 mg ONCE ONCE IV PUSH Last administered on 15:20; Start 09/02/16 at 15:15; Stop 09/02/16 at 15:16; Status DC Morphine Sulfate (Morphine Inj) 4 mg ONCE ONCE IV PUSH ; Start 09/02/16 at 15:15 ; Stop 09/02/16 at 15:15; Status DC Ondansetron HCl (Zofran Inj) 4 mg ONCE ONCE IVP ; Start 09/02/16 at 15:15; Stop 09/02/16 at 15:15; Status DC IV Flush (NS Flush) 2 ml UNSCH PRN IVF FLUSH AFTER USING IV ACCESS Last administered on 09/02/16 15:20; Start 09/02/16 at 15:15; Stop 09/02/16 at 18:03; Status DC Iohexol 100 ml 100 ml STK-MED ONCE IV Last administered on 09/02/16 15:57; Start 09/02/16 at 15:57; Stop 09/02/16 at 15:58; Status DC Ciprofloxacin/ Dextrose 200 ml @ 200 mls/hr ONCE ONCE IV Last administered on 09/02/16 16:48; Start 09/02/16 at 16:45; Stop 09/02/16 at 17:44; Status DC Metronidazole 100 ml @ 100 mls/hr ONCE ONCE IV Last administered on 09/02/16 16:48; Start 09/02/16 at 16:45; Stop 09/02/16 at 17:44; Status DC Sodium Chloride (NS 1000 ml Inj) 1,000 ml @ 125 mls/hr Q8H IV Last administered on 09/10/16 16:00; Start 09/02/16 at 18:00; Stop 09/10/16 at 19:08 ; Status DC IV Flush (NS Flush) 2 ml UNSCH PRN FLUSH FLUSH AFTER USING IV ACCESS Last administered on 09/08/16 06:43; Start 09/02/16 at 17:45 IV Flush (NS Flush) 2 ml BID FLUSH Last administered on 10/05/16 21:00; Start 09/02/16 at 21:00 Acetaminophen (Tylenol) 650 mg Q4H PRN PO TEMP > 100.4; Start 09/02/16 at 17:45 Ondansetron HCl (Zofran Inj) 4 mg Q6H PRN IVP NAUSEA OR VOMITING Last administered on 09/08/16 09:04; Start 09/02/16 at 17:45 Magnesium Hydroxide (Milk Of Magnesia Liq) 30 ml Q12H PRN PO CONSTIPATION; Start 09/02/16 at 17:45 Enoxaparin Sodium (Lovenox Inj) 40 mg Q24H SQ Last administered on 10/03/16 16: 19; Start 09/02/16 at 17:45; Stop 10/04/16 at 09:04; Status DC Naloxone HCl 0.4 mg 0.4 mg UNSCH PRN IV SEE LABEL COMMENTS; Start 09/02/16 at 17 :45 Ciprofloxacin/ Dextrose 200 ml @ 200 mls/hr Q12H IV Last administered on 04:12; Start 09/03/16 at 04:00; Stop 09/11/16 at 11:35; Status DC Metronidazole (Flagyl 500 Mg Inj) 100 ml @ 100 mls/hr Q8H IV Last administered on 09/25/16 05:19; Start 09/02/16 at 23:00; Stop 09/25/16 at 11:50; Status DC Lisinopril (Prinivil) 10 mg DAILY PO Last administered on 10/05/16 09:51; Start 09/03/16 at 09:00 Dextrose (D50w (Vial) Inj) 25 ml UNSCH PRN IV PUSH HYPOGLYCEMIA-SEE COMMENTS Last administered on 09/27/16 16:05; Start 09/02/16 at 18:45; Stop 09/27/16 at 16: 21; Status DC Glucagon (Glucagon Inj) 1 mg UNSCH PRN OTHER HYPOGLYCEMIA-SEE COMMENTS; Start 09/02/16 at 18:45; Stop 09/27/16 at 16:21; Status DC Insulin Aspart (NovoLOG SUPPLEMENTAL SCALE) 1 ACHS SLIDING SCALE SQ Last administered on 09/14/16 22:43; Start 09/02/16 at 21:00; Stop 09/15/16 at 06:27 ; Status DC Morphine Sulfate (Morphine Inj) 2 mg Q3H PRN IV PUSH PAIN 1-5; Start 09/03/16 at 00:30; Stop 09/04/16 at 11:01; Status DC Morphine Sulfate (Morphine Inj) 4 mg Q3H PRN IV PUSH PAIN 6-10 Last administered on 09/04/16 09:49; Start 09/03/16 at 00:30; Stop 09/04/16 at 11:01 ; Status DC Ketorolac Tromethamine (Toradol Inj) 30 mg ONCE ONCE IV PUSH Last administered on 09/03/16 03:50; Start 09/03/16 at 02:15; Stop 09/03/16 at 02:16 ; Status DC Iohexol (Omnipaque 350 Inj) 76 ml STK-MED ONCE IV Last administered on 09:15; Start 09/04/16 at 09:15; Stop 09/04/16 at 09:16; Status DC Hydromorphone HCl (Dilaudid Pf Inj) 1 mg Q3HR PRN IV PUSH PAIN SCALE 6 TO 10 Last administered on 09/04/16 11:55; Start 09/04/16 at 12:00; Stop 09/04/16 at 13:18; Status DC Morphine Sulfate (Morphine Inj) 2 mg Q3H PRN IV PUSH PAIN SCALE 1 TO 6; Start 09/04/16 at 14:00 Morphine Sulfate (Morphine Inj) 4 mg Q3H PRN IV PUSH PAIN SCALE 7 TO 10 Last administered on 09/22/16 01:49; Start 09/04/16 at 13:30 Polyethylene Glycol/ Electrolytes (Colyte Liq) 4,000 ml ONCE ONCE PO Last administered on 09/05/16 16:40; Start 09/05/16 at 16:00; Stop 09/05/16 at 16:01 ; Status DC Promethazine HCl (Phenergan Supp) 25 mg Q6H PRN RECTAL NAUSEA OR VOMITING Last administered on 09/04/16 17:06; Start 09/04/16 at 16:45; Stop 09/05/16 at 21:00 ; Status DC Fluticasone Propionate (Flonase Anuj Spr) 1 spray BID NASAL Last administered on 10/06/16 00:57; Start 09/05/16 at 12:00 Loratadine (Claritin) 10 mg DAILY PO Last administered on 10/05/16 09:51; Start 09/06/16 at 09:00 Promethazine HCl 25 mg 25 mg ONCE ONCE PO Last administered on 09/05/16 22:04 ; Start 09/05/16 at 21:00; Stop 09/05/16 at 21:22; Status DC Azithromycin/ Sodium Chloride (Zithromax Inj/ NS 250 ml Inj) 250 ml @ 250 mls/ hr Q24H IV Last administered on 09/07/16 11:29; Start 09/06/16 at 11:00; Stop 09/07/16 at 14:50; Status DC Guaifenesin (Mucinex Er) 600 mg BID PO Last administered on 09/29/16 09:04; Start 09/06/16 at 11:00; Stop 09/29/16 at 18:15; Status DC Magnesium Citrate (Citroma Liq) 300 ml ONCE ONCE PO Last administered on 14:54; Start 09/06/16 at 14:30; Stop 09/06/16 at 14:31; Status DC Magnesium Citrate (Citroma Liq) 300 ml ONCE ONCE PO ; Start 09/06/16 at 18:00; Stop 09/06/16 at 18:01; Status DC Bisacodyl (Dulcolax Ec) 10 mg DAILY@18,21 PO Last administered on 09/06/16 21: 00; Start 09/06/16 at 18:00; Stop 09/06/16 at 21:01; Status DC Etomidate (Amidate Inj) 20 mg STK-MED ONCE IV PUSH ; Start 09/06/16 at 13:56; Stop 09/06/16 at 14:33; Status DC Ketamine HCl (Ketalar Inj) 500 mg STK-MED ONCE .ROUTE ; Start 09/06/16 at 14:50 ; Stop 09/06/16 at 14:51; Status DC Simethicone (Mylicon Chew) 80 mg ONCE ONCE CHEW Last administered on 22:23; Start 09/06/16 at 19:45; Stop 09/06/16 at 19:46; Status DC Albuterol/ Ipratropium (Duoneb Neb) 1 ampule Q6HR NEB NEB Last administered on 09/10/16 07:34; Start 09/06/16 at 22:00; Stop 09/10/16 at 22:00; Status DC Magnesium Citrate (Citroma Liq) 300 ml ONCE ONCE PO ; Start 09/08/16 at 12:00; Stop 09/08/16 at 12:01; Status DC Magnesium Citrate (Citroma Liq) 300 ml ONCE ONCE PO ; Start 09/08/16 at 18:00; Stop 09/08/16 at 18:01; Status DC Bisacodyl (Dulcolax Ec) 10 mg ONCE ONCE PO ; Start 09/08/16 at 18:00; Stop at 18:01; Status DC Bisacodyl 10 mg 10 mg ONCE ONCE PO ; Start 09/08/16 at 21:00; Stop 09/08/16 at 21:01; Status DC Sodium Chloride (NS 1000 ml Inj) 1,000 ml @ 999 mls/hr BOLUS ONCE IV Last administered on 09/08/16 13:00; Start 09/08/16 at 10:45; Stop 09/08/16 at 11:45 ; Status DC Albuterol Sulfate 1.25 mg 1.25 mg Q6HR NEB NEB Last administered on 09/12/16 09:54; Start 09/08/16 at 16:00; Stop 09/12/16 at 16:00; Status DC Sodium Chloride 500 ml @ 500 mls/hr BOLUS ONCE IV Last administered on 17:45; Start 09/08/16 at 17:30; Stop 09/08/16 at 18:29; Status DC Pantoprazole Sodium/Sodium Chloride (Protonix Inj/NS Inj) 100 ml @ 10 mls/hr CONTINUOUS IV Last administered on 09/09/16 07:29; Start 09/08/16 at 20:00; Stop 09/09/16 at 08:31; Status DC Diatrizoate Meglum/ Diatrizoate Sod 18 ml 18 ml ONCE ONCE PO Last administered on 09/08/16 21:34; Start 09/08/16 at 21:15; Stop 09/08/16 at 21:16 ; Status DC Sodium Chloride (NS 500 ml Inj) 500 ml @ 500 mls/hr BOLUS ONCE IV Last administered on 09/09/16 02:44; Start 09/09/16 at 02:45; Stop 09/09/16 at 03:44 ; Status DC Pantoprazole Sodium 40 mg 40 mg Q12H IV PUSH Last administered on 10/01/16 21: 02; Start 09/09/16 at 21:00; Stop 10/02/16 at 07:45; Status DC Sodium Chloride 500 ml @ 500 mls/hr BOLUS ONCE IV Last administered on 09:00; Start 09/09/16 at 09:00; Stop 09/09/16 at 09:59; Status DC Potassium Chloride 100 ml @ 50 mls/hr BOLUS ONCE IV Last administered on 09/10 09:40; Start 09/10/16 at 08:00; Stop 09/10/16 at 09:59; Status DC Clindamycin Phosphate/Sodium Chloride (Cleocin Inj/NS Inj) 104 ml @ 208 mls/hr Q8H IV Last administered on 09/11/16 06:56; Start 09/10/16 at 13:00; Stop at 11:35; Status DC Midazolam HCl 2 mg 2 mg STK-MED ONCE .ROUTE ; Start 09/10/16 at 19:03; Stop at 19:04; Status DC Lactated Ringer's 1,000 ml @ 125 mls/hr Q8H IV Last administered on 09/12/16 04:00; Start 09/10/16 at 20:00; Stop 09/12/16 at 18:36; Status DC Fentanyl Citrate 250 ml @ 0 mls/hr TITRATE IV Last administered on 09/20/16 21 :04; Start 09/10/16 at 19:45; Stop 09/25/16 at 11:50; Status DC Midazolam HCl (Versed Inj) 100 ml @ 0 mls/hr TITRATE IV Last administered on 07:16; Start 09/10/16 at 20:00; Stop 09/15/16 at 13:04; Status DC Albumin Human 25 gm 25 gm NOW ONCE IV Last administered on 09/10/16 21:15; Start 09/10/16 at 20:00; Stop 09/10/16 at 20:01; Status DC Norepinephrine Bitartrate 250 ml @ As Directed STK-MED ONCE IV ; Start at 19:45; Stop 09/10/16 at 19:46; Status DC Sodium Chloride 1,000 ml @ 999 mls/hr BOLUS ONCE IV Last administered on 09/10 21:16; Start 09/10/16 at 20:00; Stop 09/10/16 at 21:00; Status DC Norepinephrine Bitartrate (Levophed-Dextrose Drip) 250 ml @ 0 mls/hr TITRATE IV Last administered on 09/11/16 12:30; Start 09/10/16 at 20:00; Stop 09/11/16 at 23:56; Status DC Terbutaline Sulfate (Brethine Inj) 1 mg UNSCH PRN SQ For Extravasation; Start 09/10/16 at 20:00; Stop 09/16/16 at 13:48; Status DC Etomidate (Amidate Inj) 20 mg STK-MED ONCE .ROUTE ; Start 09/10/16 at 20:04; Stop 09/10/16 at 20:05; Status DC Fentanyl Citrate 200 mcg 200 mcg STK-MED ONCE .ROUTE ; Start 09/10/16 at 20:06; Stop 09/10/16 at 20:07; Status DC Sodium Chloride (NS 1000 ml Inj) 1,000 ml @ 0 mls/hr NOW ONCE IV Last administered on 09/10/16 21:17; Start 09/10/16 at 21:00; Stop 09/10/16 at 21:01 ; Status DC Etomidate (Amidate Inj) 25 mg NOW ONCE IV PUSH Last administered on 09/10/16 20:10; Start 09/10/16 at 21:15; Stop 09/10/16 at 21:16; Status DC Rocuronium Bacova (Zemuron Inj) 50 mg NOW ONCE IV Last administered on 20:10; Start 09/10/16 at 21:15; Stop 09/10/16 at 21:16; Status DC Chlorhexidine Gluconate 15 ml 15 ml BID@08,20 MT Last administered on 09/29/16 20:00; Start 09/11/16 at 08:00; Stop 09/30/16 at 21:17; Status DC Sodium Chloride 1,000 ml @ 0 mls/hr BOLUS ONCE IV Last administered on 00:00; Start 09/10/16 at 22:45; Stop 09/10/16 at 22:46; Status DC Parenteral Electrolytes 1,000 ml @ 500 mls/hr Q2H IV Last administered on 09/11 01:53; Start 09/11/16 at 00:00; Stop 09/11/16 at 02:00; Status DC Sodium Chloride (NS 1000 ml Inj) 1,000 ml @ 0 mls/hr BOLUS ONCE IV Last administered on 09/11/16 06:56; Start 09/11/16 at 06:00; Stop 09/11/16 at 06:01 ; Status DC Albumin Human 25 gm 25 gm STK-MED ONCE .ROUTE Last administered on 09/11/16 10 :06; Start 09/11/16 at 10:06; Stop 09/11/16 at 10:07; Status DC Calcium Chloride/ Sodium Chloride (Calcium Chloride Inj/NS Inj) 120 ml @ 120 mls/hr ONCE ONCE IV Last administered on 09/11/16 11:08; Start 09/11/16 at 12 :00; Stop 09/11/16 at 12:59; Status DC Albumin Human (Albumin 5% Inj) 25 gm STK-MED ONCE .ROUTE Last administered on 10:40; Start 09/11/16 at 10:40; Stop 09/11/16 at 10:41; Status DC Albumin Human 12.5 gm 12.5 gm STK-MED ONCE IV Last administered on 09/11/16 11 :00; Start 09/11/16 at 10:42; Stop 09/11/16 at 10:43; Status DC Cefepime HCl 2000 mg/Sodium Chloride 100 ml @ 200 mls/hr Q8H IV Last administered on 09/22/16 04:15; Start 09/11/16 at 13:00; Stop 09/22/16 at 09:51 ; Status DC Vancomycin HCl 1750 mg/Sodium Chloride 517.5 ml @ 258.75 mls/ hr ONCE ONCE IV Last administered on 09/11/16 13:30; Start 09/11/16 at 12:00; Stop 09/11/16 at 13:59; Status DC Pharmacy Profile Note 0 ml @ 0 mls/hr UNSCH OTHER ; Start 09/11/16 at 11:45; Stop 09/13/16 at 13:04; Status DC Vancomycin HCl/ Sodium Chloride (Vancomycin Inj/ NS 500 ml Inj) 517.5 ml @ 258.75 mls/ hr Q12H IV Last administered on 09/13/16 00:11; Start 09/12/16 at 00:00; Stop 09/13/16 at 12:47; Status DC Miscellaneous Information SPECIFIC LAB TO BE HAI... ONCE ONCE XX Last administered on 09/13/16 11:25; Start 09/13/16 at 11:45; Stop 09/13/16 at 11:46 ; Status DC Milrinone Lactate 20 mg/Sodium Chloride 100 ml @ 8.12 mls/hr [id number] IV Last administered on 09/17/16 22:23; Start 09/11/16 at 17:00; Stop 09/18/16 at 17:19 ; Status DC Vasopressin/ Dextrose (Pitressin Inj/ D5W 100 ml Inj) 100 ml @ 1.5 mls/hr Q24H IV Last administered on 09/12/16 17:00; Start 09/11/16 at 17:00; Stop at 06:27; Status DC Hydrocortisone Sodium Succinate 50 mg 50 mg Q6HR IV PUSH Last administered on 12:00; Start 09/11/16 at 18:00; Stop 09/15/16 at 17:07; Status DC Norepinephrine Bitartrate/ Dextrose (Levophed Inj/ D5W Inj) 266 ml @ 0 mls/hr TITRATE IV Last administered on 09/13/16 20:30; Start 09/11/16 at 23:45; Stop 09/16/16 at 13:46; Status DC Albumin Human (Albumin 5% Inj) 12.5 gm STK-MED ONCE IV Last administered on 00:21; Start 09/12/16 at 00:21; Stop 09/12/16 at 00:22; Status DC Albumin Human (Albumin 5% Inj) 12.5 gm STK-MED ONCE IV ; Start 09/12/16 at 00:22 ; Stop 09/12/16 at 00:23; Status DC Albumin Human (Albumin 5% Inj) 25 gm NOW ONCE IV Last administered on 00:30; Start 09/12/16 at 00:30; Stop 09/12/16 at 00:31; Status DC Sodium Bicarbonate (Sodium Bicarbonate 8.4% Inj) 100 meq STK-MED ONCE .ROUTE ; Start 09/12/16 at 02:56; Stop 09/12/16 at 02:57; Status DC Sodium Bicarbonate (Sodium Bicarbonate 8.4% Inj) 100 meq NOW ONCE IV Last administered on 09/12/16 03:03; Start 09/12/16 at 03:15; Stop 09/12/16 at 03:16 ; Status DC Sodium Bicarbonate 100 meq 100 meq ONCE ONCE IV PUSH ; Start 09/12/16 at 03:15 ; Stop 09/12/16 at 03:16; Status UNV Epinephrine HCl/ Dextrose (Adrenalin (1:1000) Inj/D5W Inj) 250 ml @ 0 mls/hr TITRATE IV Last administered on 09/12/16 08:54; Start 09/12/16 at 06:30; Stop 09/15/16 at 06:27; Status DC Epinephrine HCl (Adrenalin (1:1000) Inj) 1 mg STK-MED ONCE .ROUTE Last administered on 09/12/16 04:40; Start 09/12/16 at 04:40; Stop 09/12/16 at 04:41 ; Status DC Digoxin 0.25 mg 0.25 mg ONCE ONCE IV PUSH Last administered on 09/12/16 08:00 ; Start 09/12/16 at 08:00; Stop 09/12/16 at 08:01; Status DC Fluconazole/ Sodium Chloride 200 ml @ 100 mls/hr Q24H IV Last administered on 09/21/16 11:59; Start 09/12/16 at 12:00; Stop 09/22/16 at 09:51; Status DC Potassium Chloride 100 ml @ 25 mls/hr BOLUS ONCE IV Last administered on 09/12 15:30; Start 09/12/16 at 15:30; Stop 09/12/16 at 19:29; Status DC Magnesium Sulfate/ Dextrose 100 ml @ 100 mls/hr ONCE ONCE IV Last administered on 09/12/16 15:30; Start 09/12/16 at 15:30; Stop 09/12/16 at 16:29 ; Status DC Amiodarone HCl 150 mg/Dextrose 100 ml @ 600 mls/hr ONCE ONCE IV Last administered on 09/12/16 16:16; Start 09/12/16 at 15:30; Stop 09/12/16 at 15:39 ; Status DC Amiodarone HCl 900 mg/Dextrose 500 ml @ 0 mls/hr CONTINUOUS IV ; Start 09/12/16 at 15:30; Stop 09/12/16 at 15:30; Status DC Amiodarone HCl/ Dextrose (Cordarone Inj/ D5W ([place]) Inj) 250 ml @ 0 mls/hr CONTINUOUS IV Last administered on 09/15/16 16:47; Start 09/12/16 at 15:30; Stop 09/16/16 at 09:39; Status DC Furosemide (Lasix Inj) 40 mg STK-MED ONCE .ROUTE Last administered on 15:40; Start 09/12/16 at 15:40; Stop 09/12/16 at 15:41; Status DC Lidocaine HCl (Xylocaine 1% Inj (50 ml)) 50 ml STK-MED ONCE .ROUTE ; Start 09/12 at 16:45; Stop 09/12/16 at 16:46; Status DC Furosemide (Lasix Inj) 40 mg ONCE ONCE IV PUSH ; Start 09/12/16 at 18:45; Stop 09/12/16 at 18:46; Status DC Furosemide 60 mg 60 mg ONCE ONCE IV PUSH Last administered on 09/13/16 08:56 ; Start 09/13/16 at 08:30; Stop 09/13/16 at 08:31; Status DC Lactated Ringer's 1,000 ml @ As Directed STK-MED ONCE IV ; Start 09/10/16 at 11 :15; Stop 09/13/16 at 11:16; Status DC Parenteral Electrolytes 2,000 ml @ As Directed STK-MED ONCE IV ; Start at 11:15; Stop 09/13/16 at 11:16; Status DC Potassium Chloride 100 ml @ 50 mls/hr Q2H PRN IV For Potassium 2.8 - 3.2 mEq/ L Last administered on 09/22/16 06:11; Start 09/13/16 at 11:45; Stop 09/30/16 at 21:17; Status DC Potassium Chloride 100 ml @ 50 mls/hr Q2H PRN IV For Potassium 2.8 - 3.2 mEq/L ; Start 09/13/16 at 11:45; Stop 09/30/16 at 21:17; Status DC Potassium Chloride 100 ml @ 25 mls/hr UNSCH PRN IV For Potassium 3.3 - 3.5 mEq /L Last administered on 09/24/16 05:55; Start 09/13/16 at 11:45; Stop 09/30/16 at 21:17; Status DC Potassium Chloride 100 ml @ 50 mls/hr Q2H PRN IV For Potassium 3.3 - 3.5 mEq/ L Last administered on 09/15/16 19:24; Start 09/13/16 at 11:45; Stop 09/30/16 at 21:17; Status DC Magnesium Sulfate/ Sodium Chloride (Magnesium Sulfate Inj/NS Inj) 100 ml @ 50 mls/hr UNSCH PRN IV For Magnesium 0.9 - 1.1 mg/dL; Start 09/13/16 at 11:45; Stop 09/30/16 at 21:17; Status DC Magnesium Oxide 800 mg 800 mg UNSCH PRN PO For Magnesium 1.2 - 1.6 mg/dL; Start 09/13/16 at 11:45; Stop 09/30/16 at 21:17; Status DC Magnesium Sulfate/ Sodium Chloride (Magnesium Sulfate Inj/NS Inj) 100 ml @ 50 mls/hr UNSCH PRN IV For Magnesium 1.2 - 1.6 mg/dL; Start 09/13/16 at 11:45; Stop 09/30/16 at 21:17; Status DC Potassium Phosphate 2000 mg 2,000 mg Q4H PRN PO For Phosphorus < 2.5 mg/dL Last administered on 09/21/16 12:46; Start 09/13/16 at 11:45; Stop 09/30/16 at 21:17; Status DC Sodium Phosphate/ Sodium Chloride (Sodium Phosphate Inj/NS 250 ml Inj) 250 ml @ 42 mls/hr UNSCH PRN IV For Phosphorus < 2.5 mg/dL Last administered on 07:18; Start 09/13/16 at 11:45; Stop 09/30/16 at 21:17; Status DC Potassium Phosphate 2000 mg 2,000 mg UNSCH PRN PO/TUBE SEE LABEL COMMENTS; Start 09/13/16 at 11:45; Stop 09/30/16 at 21:17; Status DC Potassium Phosphate 30 mmol/ Sodium Chloride 260 ml @ 42 mls/hr UNSCH PRN IV SEE LABEL COMMENTS Last administered on 09/25/16 09:37; Start 09/13/16 at 11:45 ; Stop 09/30/16 at 21:17; Status DC Vancomycin HCl/ Sodium Chloride (Vancomycin Inj/ NS 500 ml Inj) 517.5 ml @ 258.75 mls/ hr Q18H IV ; Start 09/13/16 at 22:00; Stop 09/13/16 at 22:00; Status DC Miscellaneous Information SPECIFIC LAB TO BE DRAWN:[facility]... ONCE ONCE XX ; Start 09/14/16 at 15:45; Stop 09/14/16 at 15:46; Status Cancel Epinephrine HCl (EPINEPHrine (1:10,000) INJ) 1 mg STK-MED ONCE IV ; Start at 05:00; Stop 09/13/16 at 14:07; Status DC Furosemide 60 mg 60 mg ONCE ONCE IV PUSH Last administered on 09/14/16 11:41 ; Start 09/14/16 at 11:30; Stop 09/14/16 at 11:31; Status DC Multivitamins/ Folic Acid/Amino Acids/ Electrolytes/ Dextrose (Mvi-12 Inj/ Folvite Inj/ Clinimix E 11/18) 1,010.2 ml @ 30 mls/hr Q24H IV-CENTRAL Last administered on 09/15/16 20:46; Start 09/14/16 at 20:00; Stop 09/16/16 at 19:59 ; Status DC Dextrose (D50w (Vial) Inj) 25 ml UNSCH PRN IV PUSH HYPOGLYCEMIA-SEE COMMENTS; Start 09/15/16 at 06:30; Stop 09/15/16 at 17:07; Status DC Insulin Human Regular (NovoLIN R SUPPLEMENTAL SCALE) 1 Q4HR SQ Last administered on 09/15/16 16:00; Start 09/15/16 at 08:00; Stop 09/15/16 at 17:07 ; Status DC Albuterol/ Ipratropium (Duoneb Neb) 1 ampule Q6HR NEB NEB Last administered on 09/22/16 16:38; Start 09/15/16 at 16:00; Stop 09/22/16 at 17:19; Status DC Albuterol Sulfate (Albuterol Neb) 2.5 mg Q2HR NEB PRN NEB dyspnea Last administered on 10/02/16 00:08; Start 09/15/16 at 14:00 Albuterol/ Ipratropium (Duoneb Neb) 1 ampule Q4HR NEB NEB ; Start 09/15/16 at 16:00; Stop 09/15/16 at 16:00; Status DC Albuterol/ Ipratropium (Duoneb Neb) 1 ampule Q2HR NEB PRN NEB dyspnea; Start at 13:30; Stop 09/15/16 at 13:30; Status DC Budesonide (Pulmicort Respule Neb) 0.5 mg Q12HR NEB NEB Last administered on 08:12; Start 09/15/16 at 20:00 Hydrocortisone Sodium Succinate (SoluCORTEF INJ) 50 mg Q8HR IV PUSH Last administered on 09/19/16 05:42; Start 09/15/16 at 22:00; Stop 09/19/16 at 09:39 ; Status DC Insulin Detemir (Levemir Inj) 12 units Q12HR SQ Last administered on 09/16/16 08:16; Start 09/15/16 at 21:00; Stop 09/16/16 at 09:39; Status DC Dextrose (D50w (Vial) Inj) 25 ml UNSCH PRN IV PUSH HYPOGLYCEMIA-SEE COMMENTS; Start 09/15/16 at 17:15; Status UNV Glucagon (Glucagon Inj) 1 mg UNSCH PRN OTHER HYPOGLYCEMIA-SEE COMMENTS; Start 09/15/16 at 17:15; Status UNV Insulin Human Regular 1 1 Q4HR SQ Last administered on 09/27/16 08:09; Start at 20:00; Stop 09/27/16 at 16:21; Status DC Calcium Gluconate 2 gm/Sodium Chloride 120 ml @ 120 mls/hr ONCE ONCE IV Last administered on 09/16/16 00:58; Start 09/16/16 at 00:45; Stop 09/16/16 at 01:44 ; Status DC Potassium Chloride 100 ml @ 50 mls/hr BOLUS ONCE IV Last administered on 09/16 12:26; Start 09/16/16 at 09:15; Stop 09/16/16 at 11:14; Status DC Magnesium Sulfate/ Dextrose 100 ml @ 100 mls/hr Q1H IV Last administered on 12:28; Start 09/16/16 at 10:00; Stop 09/16/16 at 11:59; Status DC Dexmedetomidine HCl (Precedex Inj) 50 ml @ 0 mls/hr TITRATE IV Last administered on 09/21/16 19:56; Start 09/16/16 at 09:45; Stop 09/21/16 at 21:00 ; Status DC Insulin Detemir 20 units 20 units Q12HR SQ Last administered on 09/16/16 21:19 ; Start 09/16/16 at 21:00; Stop 09/17/16 at 09:20; Status DC Multivitamins 10 ml/Folic Acid 1 mg/Amino Acids/ Electrolytes/ Dextrose 2,010.2 ml @ 30 mls/hr Q24H IV-CENTRAL Last administered on 09/17/16 20:37; Start at 20:00; Stop 09/18/16 at 12:13; Status DC Fat Emulsion Intravenous 250 ml @ 10 mls/hr Q24H IV-CENTRAL Last administered on 09/21/16 21:08; Start 09/16/16 at 20:00; Stop 09/22/16 at 19:20; Status DC Norepinephrine Bitartrate (Levophed-Dextrose Drip) 250 ml @ 0 mls/hr TITRATE IV Last administered on 09/17/16 06:50; Start 09/16/16 at 13:45; Stop 09/30/16 at 21:17; Status DC Terbutaline Sulfate (Brethine Inj) 1 mg UNSCH PRN SQ For Extravasation; Start 09/16/16 at 13:45 Midazolam HCl (Versed Inj) 5 mg ONCE ONCE IV PUSH Last administered on 13:45; Start 09/16/16 at 13:45; Stop 09/16/16 at 13:47; Status DC Fentanyl Citrate (fentaNYL INJ) 50 mcg ONCE ONCE IV PUSH Last administered on 09/16/16 13:45; Start 09/16/16 at 13:45; Stop 09/16/16 at 13:47; Status DC Sodium Chloride (NS Flush) DAILY IVF Last administered on 10/04/16 10:57; Start 09/17/16 at 09:00 Sodium Chloride UNSCH PRN IVF SEE PROTOCOL; Start 09/16/16 at 15:15 Potassium Phosphate/Sodium Chloride (Potassium Phosphate Inj/NS Inj) 155 ml @ 38.75 mls/ hr ONCE ONCE IV Last administered on 09/17/16 10:00; Start at 10:00; Stop 09/17/16 at 13:59; Status DC Insulin Detemir (Levemir Inj) 25 units Q12HR SQ Last administered on 09/18/16 09:00; Start 09/17/16 at 21:00; Stop 09/18/16 at 12:01; Status DC Insulin Detemir 10 units 10 units Q12HR SQ Last administered on 09/19/16 08:03 ; Start 09/18/16 at 21:00; Stop 09/19/16 at 09:39; Status DC Multivitamins/ Folic Acid/Amino Acids/ Electrolytes/ Dextrose (Mvi-12 Inj/ Folvite Inj/ Clinimix E 11/18) 1,010.2 ml @ 30 mls/hr Q24H IV-CENTRAL Last administered on 09/21/16 21:08; Start 09/18/16 at 20:00; Stop 09/22/16 at 13:10 ; Status DC Adenosine (Adenocard Inj) 6 mg STK-MED ONCE .ROUTE ; Start 09/19/16 at 01:35; Stop 09/19/16 at 02:16; Status DC Hydrocortisone Sodium Succinate (SoluCORTEF INJ) 50 mg BID IV PUSH Last administered on 09/21/16 08:34; Start 09/19/16 at 21:00; Stop 09/21/16 at 10:18 ; Status DC Insulin Detemir (Levemir Inj) 8 units Q12HR SQ Last administered on 09/26/16 10 :31; Start 09/19/16 at 21:00; Stop 09/26/16 at 10:48; Status DC Bisacodyl (Dulcolax Supp) 10 mg NOW ONCE RECTAL Last administered on 13:15; Start 09/20/16 at 13:15; Stop 09/20/16 at 13:16; Status DC Methylprednisolone Sodium Succinate (SoluMEDROL INJ) 80 mg Q8HR IV PUSH Last administered on 09/26/16 06:17; Start 09/21/16 at 11:00; Stop 09/26/16 at 10:49; Status DC Furosemide (Lasix Inj) 20 mg BID@09,18 IV PUSH Last administered on 09/25/16 08 :45; Start 09/21/16 at 18:00; Stop 09/25/16 at 11:41; Status DC Furosemide 20 mg 20 mg STAT ONCE IV PUSH Last administered on 09/21/16 12:30 ; Start 09/21/16 at 12:15; Stop 09/21/16 at 12:16; Status DC Dexmedetomidine HCl 400 mcg/ Sodium Chloride 100 ml @ 0 mls/hr TITRATE IV Last administered on 09/22/16 03:27; Start 09/21/16 at 20:15; Stop 09/22/16 at 04:04 ; Status DC Dexmedetomidine HCl/Sodium Chloride (Precedex Inj/NS 250 ml Inj) 250 ml @ 0 mls/ hr TITRATE IV Last administered on 09/24/16 13:44; Start 09/22/16 at 04:15; Stop 09/25/16 at 11:50; Status DC Potassium Bicarb/ Potassium Chloride (K-Lyte Cl Eff) 25 meq ONCE ONCE PO Last administered on 09/22/16 11:15; Start 09/22/16 at 10:45; Stop 09/22/16 at 10:54; Status DC Potassium Bicarb/ Potassium Chloride (K-Lyte Cl Eff) 25 meq Q12HR NG Last administered on 09/25/16 08:45; Start 09/22/16 at 10:45; Stop 09/25/16 at 11:41; Status DC Acetazolamide Sodium 500 mg 500 mg ONCE ONCE IV PUSH Last administered on 09/22 11:16; Start 09/22/16 at 10:45; Stop 09/22/16 at 10:54; Status DC Multivitamins/ Folic Acid/Amino Acids/ Electrolytes/ Dextrose (Mvi-12 Inj/ Folvite Inj/ Clinimix E 11/18) 2,010.2 ml @ 60 mls/hr Q24H IV-CENTRAL ; Start at 20:00; Stop 09/22/16 at 20:00; Status DC Acetazolamide Sodium (Diamox Inj) 500 mg ONCE ONCE IV PUSH Last administered on 09/23/16 15:36; Start 09/23/16 at 14:15; Stop 09/23/16 at 14:21; Status DC Quetiapine Fumarate (SEROquel) 50 mg BID PO Last administered on 09/25/16 08:45 ; Start 09/24/16 at 11:00; Stop 09/25/16 at 11:41; Status DC Water (Free Water) 200 ml Q4HR G-TUBE Last administered on 09/25/16 12:00; Start 09/24/16 at 12:00; Stop 09/25/16 at 14:00; Status DC Albuterol/ Ipratropium (Duoneb Neb) 1 ampule Q6HR NEB NEB Last administered on 09/29/16 16:00; Start 09/25/16 at 16:00; Stop 09/29/16 at 16:06; Status DC Quetiapine Fumarate (SEROquel) 25 mg BID PO Last administered on 09/28/16 08:34 ; Start 09/25/16 at 21:00; Stop 09/28/16 at 11:32; Status DC Insulin Detemir (Levemir Inj) 15 units Q12HR SQ ; Start 09/26/16 at 21:00; Stop 09/26/16 at 21:00; Status DC Insulin Detemir (Levemir Inj) 12 units Q12HR SQ Last administered on 09/27/16 08:08; Start 09/26/16 at 21:00; Stop 09/27/16 at 16:21; Status DC Methylprednisolone Sodium Succinate 60 mg 60 mg Q8HR IV PUSH Last administered on 09/28/16 04:52; Start 09/26/16 at 14:00; Stop 09/28/16 at 08:37; Status DC Sodium Chloride/ Sterile Water (Sodium Chloride 23.4% Inj/Sterile Water For Inj ) 1,009.625 ml @ 42 mls/hr Q24H IV Last administered on 09/28/16 15:49; Start 09/27/16 at 16:00; Stop 09/29/16 at 16:06; Status DC Insulin Detemir (Levemir Inj) 8 units Q12HR SQ Last administered on 10/05/16 21:00; Start 09/27/16 at 21:00 Dextrose (D50w (Vial) Inj) 25 ml UNSCH PRN IV PUSH HYPOGLYCEMIA-SEE COMMENTS; Start 09/27/16 at 16:30 Glucagon (Glucagon Inj) 1 mg UNSCH PRN OTHER HYPOGLYCEMIA-SEE COMMENTS; Start 09/27/16 at 16:30 Insulin Human Regular (NovoLIN R SUPPLEMENTAL SCALE) 1 ACHS SLIDING SCALE SQ Last administered on 10/06/16 06:55; Start 09/27/16 at 21:00 Hydralazine HCl (Apresoline Inj) 10 mg Q1HR PRN IV PUSH SBP>160, DBP>90 Last administered on 09/28/16 16:07; Start 09/27/16 at 16:30 Labetalol HCl (Trandate Inj) 10 mg Q1HR PRN IV PUSH SBP>160, DBP>90, HR>65; Start 09/27/16 at 16:30; Stop 09/30/16 at 21:17; Status DC Nitroglycerin (Nitroglycerin 2% Oint) 2 inch Q6HR PRN TOPICAL SBP>160, DBP>90 Last administered on 09/28/16 17:22; Start 09/27/16 at 16:30 Methylprednisolone Sodium Succinate (SoluMEDROL INJ) 60 mg Q12H IV PUSH Last administered on 10/04/16 05:20; Start 09/28/16 at 17:00; Stop 10/04/16 at 09:07 ; Status DC Quetiapine Fumarate (SEROquel) 25 mg DAILY PO Last administered on 10/05/16 09 :51; Start 09/29/16 at 09:00 Quetiapine Fumarate (SEROquel) 50 mg HS PO Last administered on 10/06/16 00:58 ; Start 09/28/16 at 21:00 Miscellaneous (Pill Splitter) 1 ea UNSCH PRN OTHER SEE LABEL COMMENTS; Start at 12:00 Albuterol/ Ipratropium (Duoneb Neb) 1 ampule Q6HR NEB NEB Last administered on 10/03/16 19:39; Start 09/29/16 at 22:00; Stop 10/03/16 at 22:00; Status DC Guaifenesin (Mucinex Er) 600 mg BID PO Last administered on 10/06/16 00:58; Start 09/29/16 at 21:00 Potassium Chloride (KCl) 30 meq ONCE ONCE PO Last administered on 10/01/16 10: 05; Start 10/01/16 at 08:45; Stop 10/01/16 at 08:53; Status DC Pantoprazole Sodium (Protonix) 40 mg BID PO Last administered on 10/03/16 21:44 ; Start 10/02/16 at 09:00; Stop 10/04/16 at 09:11; Status DC Prednisone (Deltasone) 20 mg BID PO ; Start 10/04/16 at 21:00; Stop 10/04/16 at 21:00; Status DC Prednisone (Deltasone) 40 mg BID PO Last administered on 10/06/16 00:57; Start 10/04/16 at 21:00 Pantoprazole Sodium (Protonix) 40 mg ONCE ONCE PO Last administered on 10:56; Start 10/04/16 at 09:15; Stop 10/04/16 at 09:34; Status DC Enoxaparin Sodium (Lovenox Inj) 75 mg Q12H SQ ; Start 10/05/16 at 20:30; Stop at 21:32; Status DC Enoxaparin Sodium (Lovenox Inj) 80 mg Q12HR SQ Last administered on 10/06/16 00:57; Start 10/05/16 at 21:30 Date of Insertion: Sep 16, 2016 Date of Removal: Sep 25, 2016 Line: Central Venous Catheter Side: Left Location: Internal, Jugular A/P Assessment and Plan Toxic metabolic encephalopathy -Due to patient's medical condition was being treated for. -Resolved. -Status post off Precedex drip and fentanyl drip. -Seroquel 25 twice a day. Wean down as tolerated A. 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 -Process Project Engineer is following. Patient currently on nasal cannula. Patient was on Solu-Medrol and was switched to prednisone. wean as tolerated. -DuoNeb therapy every 6 hours with albuterol every 2 hours for breakthrough dyspnea -Pulmicort twice a day -Right chest tube discontinued 09/18 -Left chest tube discontinued 09/19 s/p exploratory lap lysis of adhesions - Dr. Henriquez Chronic pancreatitis Abdominal ascites Internal hemorrhoids Elevated transaminases -Status post EGD by GI. - Pathology revealed chronic gastritis inflammation -Says post colonoscopy by GI 09/06 -incomplete splenic flexure normal mucosa. Internal hemorrhoids. -NG tube removed and tolerating diet very well. ADA diet/. Pured With honey thickened liquids. -change to protonix 40 mg once a day. -Surgery signed off. Diabetes mellitus -Sliding-scale insulin with Accu-Cheks every 4 hours maintain euglycemia/High dose . -On Levemir 15 units twice a day. -Holding home medication glipizide 10 mg by mouth daily Leukocytosis Anemia Right cephalic/basilic superficial thrombus Thrombocytopenia -Follow CBC. -platelets decreased but is stable. No active bleeding. Crowning Inspector consulted and following. -thrombocytopenia due to DVT B/L lower extremity DVT -started on Lovenox BID by Heme. SIRS -ID has stopped all antibiotics since 09/22 and patient continued to do well. -Multiple cultures obtained and all negative. Hypernatremia -Resolved with good by mouth intake. Diarrhea -C. difficile negative. Decondition -Due to severity of illness. PT/OT ff. Left frozen shoulder - x-ray of the shoulder negative. -needs to continue with OT. can takes months before recovery. DVT Prophylaxis -on lovenox Discharge Planning pending approval to SNF. Milady Saeed MD Oct 06, 2016 09:46
--- NOTE | 2016-10-06 09:46 | PD.ONC.PN ---
Subjective Subjective Remarks c/o wekness . Denies leg swelling. Objective Data Date Time Temp Pulse Resp B/P Pulse Ox O2 Delivery O2 Flow Rate FiO2 10/06/16 08:14 92 Nasal Cannula 5.00 10/06/16 08:00 97.2 94 18 123/69 92 10/06/16 00:00 97.4 76 17 100/61 92 10/05/16 20:58 88 Nasal Cannula 5.00 10/05/16 20:00 97.9 83 17 103/62 91 10/05/16 19:00 92 Nasal Cannula 5.00 10/05/16 16:00 98.4 91 19 115/70 92 10/05/16 12:00 97.6 88 16 126/67 92 10/06/16 10/06/16 10/06/16 07:00 15:00 23:00 Intake Total 240 ml Output Total 800 ml Balance -560 ml Result Diagram: 10/06/16 0626 10/06/16625 Laboratory Results Laboratory Tests Test 10/05/16 10/06/16 11:51 06:26 Fibrinogen 171 mg/dL White Blood Count 17.7 TH/MM3 Red Blood Count 4.74 MIL/MM3 Hemoglobin 13.4 GM/DL Hematocrit 41.9 % Mean Corpuscular Volume 88.5 FL Mean Corpuscular Hemoglobin 28.4 PG Mean Corpuscular Hemoglobin 32.1 % Concent Red Cell Distribution Width 15.7 % Platelet Count 74 TH/MM3 Mean Platelet Volume 10.6 FL Sodium Level 138 MEQ/L Potassium Level 3.3 MEQ/L Chloride Level 98 MEQ/L Carbon Dioxide Level 34.0 MEQ/L Anion Gap 6 MEQ/L Blood Urea Nitrogen 17 MG/DL Creatinine 0.40 MG/DL Estimat Glomerular Filtration 220 ML/MIN Rate Random Glucose 165 MG/DL Calcium Level 7.1 MG/DL Protein Corrected Calcium 8.5 MG/DL Total Protein 4.6 GM/DL Administered Medications Medications (Trade) Dose Ordered Sig/Alfred Route PRN Reason Start Time Stop Time Status Last Admin Dose Admin IV Flush (NS Flush) 2 ml UNSCH PRN FLUSH FLUSH AFTER USING IV ACCESS 09/02/16 17:45 09/08/16 06:43 IV Flush (NS Flush) 2 ml BID FLUSH 09/02/16 21:00 10/05/16 21:00 Ondansetron HCl (Zofran Inj) 4 mg Q6H PRN IVP NAUSEA OR VOMITING 09/02/16 17:45 09/08/16 09:04 Lisinopril (Prinivil) 10 mg DAILY PO 09/03/16 09:00 10/05/16 09:51 Morphine Sulfate (Morphine Inj) 4 mg Q3H PRN IV PUSH PAIN SCALE 7 TO 10 09/04/16 13:30 09/22/16 01:49 Fluticasone Propionate (Flonase Anuj Spr) 1 spray BID NASAL 09/05/16 12:00 10/06/16 00:57 Loratadine (Claritin) 10 mg DAILY PO 09/06/16 09:00 10/05/16 09:51 Sodium Chloride (NS Flush) DAILY IVF 09/17/16 09:00 10/04/16 10:57 Insulin Detemir (Levemir Inj) 8 units Q12HR SQ 09/27/16 21:00 10/05/16 21:00 Hydralazine HCl (Apresoline Inj) 10 mg Q1HR PRN IV PUSH SBP>160, DBP>90 09/27/16 16:30 09/28/16 16:07 Nitroglycerin (Nitroglycerin 2% Oint) 2 inch Q6HR PRN TOPICAL SBP>160, DBP>90 09/27/16 16:30 09/28/16 17:22 Quetiapine Fumarate (SEROquel) 25 mg DAILY PO 09/29/16 09:00 10/05/16 09:51 Quetiapine Fumarate (SEROquel) 50 mg HS PO 09/28/16 21:00 10/06/16 00:58 Guaifenesin (Mucinex Er) 600 mg BID PO 09/29/16 21:00 10/06/16 00:58 Prednisone (Deltasone) 40 mg BID PO 10/04/16 21:00 10/06/16 00:57 Enoxaparin Sodium (Lovenox Inj) 80 mg Q12HR SQ 10/05/16 21:30 10/06/16 00:57 Objective Remarks GENERAL: Elderly male, lying in bed in nad. SKIN: Warm and dry. HEAD: Normocephalic. EYES: No scleral icterus. No injection or drainage. NECK: Supple, trachea midline. CARDIOVASCULAR: +S1/S2 RESPIRATORY: anterior rothman with occasional rhonchi. GASTROINTESTINAL: Abdomen soft, non-tender, nondistended. EXTREMITIES: No cyanosis MUSCULOSKELETAL: Adequate muscle tone. NEUROLOGICAL: awake and alert, normal speech Assessment/Plan Problem List: (1) Thrombocytopenia Status: Acute Plan: 10/06 Thrombocytopenia is due to DVT. started on lovenox last night. at d/c start eliquis and stop lovenox, available prn. 10/05: platelet count stable at 84K today. will obtain u/s LE to r/o DVT. await rest of workup --differential is sepsis versus DIC versus medications. --RF + --hepatitis panel pending --HIT pending --CT ab/pelvis showed normal spleen Assessment 61y/o male admitted with abdominal pain. Hematology consulted for thrombocytopenia. -- history of hypertension, chronic pancreatitis, diabetes mellitus. Elliott Lazar MD Oct 06, 2016 09:46
[2016-10-06] MEDS ORDERED: BUDE.5I NEB (11:59)
[2016-10-06] MEDS ORDERED: ALBU0.08 NEB (11:59)
[2016-10-06] MEDS ORDERED: PRED20 PO (11:59)
[2016-10-06] MEDS ORDERED: LEVEMIR SQ (11:59)
[2016-10-06] MEDS ORDERED: MUCI600T PO (11:59)
[2016-10-06] MEDS ORDERED: QUET1TAB8 PO (11:59)
[2016-10-06] MEDS ORDERED: LORA-361 PO (11:59)
[2016-10-06] MEDS ORDERED: FLUT50SP NASAL (11:59)
[2016-10-06] MEDS ORDERED: MILKSUS PO (11:59)
[2016-10-06] MEDS ORDERED: NOVORP2 SQ (11:59)
[2016-10-06] MEDS ORDERED: QUET1TAB7 PO (11:59)
[2016-10-06 12:00] VITALS: BP 105/58; PULSE 82; RESP 17; TEMP 98.6; O2SAT 93
[2016-10-06] MEDS ORDERED: APIX5TAB PO (12:05)
[2016-10-06] MEDS ORDERED: NORC5TAB PO (12:05)
--- NOTE | 2016-10-06 12:08 | HHI.DS ---
Discharge Summary Admission Date Sep 02, 2016 at 17:01 Discharge Date: Oct 06, 2016 Admitting Diagnosis intractable abdominal pain; acute enteritis; hyponatremia; (1) SBO (small bowel obstruction) ICD Code: K56.69 Diagnosis: Principal (2) Diabetes mellitus, type 2 ICD Code: E11.9 Diagnosis: Secondary (3) Physical deconditioning ICD Code: R53.81 Diagnosis: Secondary (4) HTN (hypertension) ICD Code: I10 Diagnosis: Secondary (5) DVT (deep venous thrombosis) ICD Code: I82.409 Diagnosis: Principal (6) Thrombocytopenia ICD Code: D69.6 Diagnosis: Principal (7) Systemic inflammatory response syndrome (SIRS) ICD Code: A41.9 Diagnosis: Principal (8) Pancreatitis ICD Code: K85.9 Diagnosis: Principal (9) Gastroenteritis ICD Code: K52.9 Diagnosis: Principal (10) Ileus ICD Code: K56.7 Diagnosis: Principal (11) GERD (gastroesophageal reflux disease) ICD Code: K21.9 Diagnosis: Secondary (12) Acute respiratory failure with hypoxia ICD Code: J96.01 Diagnosis: Principal (13) COPD exacerbation ICD Code: J44.1 Diagnosis: Principal Procedures See hospital course. Brief History - From Admission This is a 61-year-old male with a past medical history of chronic pancreatitis, hypertension, type 2 diabetes who presented with abdominal pain that started Tuesday. Patient stated that abdominal pain is located in the left lower quadrant and it was very mild. He said over the weekend has worsened in intensity and is constant. Patient stated that he has some nausea that resolves or improves with food. Deny any emesis. Patient also complains of a chronic productive cough that has been the same. He denies any diarrhea or constipation and see that his stools are normal. Patient also denies any fever or chills. CBC/BMP: 10/06/16 0626 10/06/16 0626 Significant Findings Laboratory Tests Test 10/04/16 10/04/16 10/05/16 10/05/16 05:00 09:16 05:57 11:51 White Blood Count 28.2 TH/MM3 24.3 TH/MM3 (4.0-11.0) (4.0-11.0) Platelet Count 80 TH/MM3 84 TH/MM3 (150-450) (150-450) Potassium Level 3.2 MEQ/L 3.4 MEQ/L (3.5-5.1) (3.5-5.1) Blood Urea Nitrogen 26 MG/DL (7-18) 22 MG/DL (7-18) Creatinine 0.41 MG/DL 0.42 MG/DL (0.60-1.30) (0.60-1.30) Random Glucose 151 MG/DL 69 MG/DL (74-106) (74-106) Calcium Level 7.2 MG/DL 7.7 MG/DL (8.5-10.1) (8.5-10.1) Total Protein 4.5 GM/DL 5.4 GM/DL (6.4-8.2) (6.4-8.2) Albumin 2.4 GM/DL (3.4-5.0) Carbon Dioxide Level 34.6 MEQ/L (21.0-32.0) Rheumatoid Factor Screen POSITIVE (NEGATIVE) Rheumatoid Factor Titer 29.8 IU/ML (0.0-14.9) Fibrinogen 171 mg/dL (181-393) Test 10/06/16 06:26 White Blood Count 17.7 TH/MM3 (4.0-11.0) Platelet Count 74 TH/MM3 (150-450) Potassium Level 3.3 MEQ/L (3.5-5.1) Carbon Dioxide Level 34.0 MEQ/L (21.0-32.0) Creatinine 0.40 MG/DL (0.60-1.30) Random Glucose 165 MG/DL (74-106) Calcium Level 7.1 MG/DL (8.5-10.1) Total Protein 4.6 GM/DL (6.4-8.2) Imaging Last Impressions Shoulder X-Ray 10/05/16 0000 Signed Impressions: Service Date/Time: Wednesday, October 05, 2016 10:13 - CONCLUSION: No acute disease. John Payne MD Lower Extremity Ultrasound 10/05/16 0000 Signed Impressions: Service Date/Time: Wednesday, October 05, 2016 14:02 - CONCLUSION: DVT bilaterally. John Payne MD Chest CT 09/25/16 0000 Signed Impressions: Service Date/Time: Sunday, September 25, 2016 17:09 - CONCLUSION: Symmetric bilateral lower lobe abnormalities including segmental consolidation and 3 cm pleural effusions. Severe upper lobe emphysema. There is also a 5 mm solitary pulmonary nodule in the right midlung. Anibal Álvarez MD Chest X-Ray 09/24/16 0600 Signed Impressions: Service Date/Time: Saturday, September 24, 2016 06:14 - CONCLUSION: Stable chest x-ray with mild bibasilar opacities which could represent small pleural effusions. There is also likely associated consolidation in the lower lung zones. Gmuaro Brown MD Upper Extremity Ultrasound 09/23/16 0000 Signed Impressions: Service Date/Time: August 15:27 - CONCLUSION: 1. Superficial thrombosed by this involving the cephalic and basilic veins. No deep venous thrombosis is identified. Manjeet Guevara MD Abdomen X-Ray 09/09/16 0600 Signed Impressions: Service Date/Time: August 04:54 - CONCLUSION: No significant interval change. Persistent upper mid abdomen small bowel dilatation and wall thickening. Filiberto Hall MD Abdomen/Pelvis CT 09/08/16 0000 Signed Impressions: Service Date/Time: Thursday, September 08, 2016 23:45 - CONCLUSION: 1. Marked inflammatory changes of left upper quadrant with severe mesenteric edema and adjacent short segment circumferential wall thickening of mid small bowel and adjacent distal transverse colon. Possible 4 cm abscess adjacent to the mid small bowel wall. Evaluation of intraluminal versus extraluminal fluid in this region is limited as intraluminal contrast is not present in this loop. A delayed scan may be beneficial for clarification. Differential diagnosis includes inflammatory bowel disease and infection. Moderate amount of free fluid similar to prior study. No evidence of free air. 2. Chronic pancreatitis. Filiberto Hall MD ADDENDUM: Delayed images show contrast filling the thickened loops of left upper quadrant small bowel. No evidence of abscess. Findings were discussed with Dr. Henriquez. Filiberto Hall MD PE at Discharge GENERAL: in NAD CARDIOVASCULAR: Regular rate and rhythm without murmurs, gallops, or rubs. RESPIRATORY: No accessory muscle use. Clear to auscultation bilaterally GASTROINTESTINAL: Soft. Nondistended. No peritoneal signs. Normoactive bowel sounds. MUSCULOSKELETAL: No cyanosis, or edema. Left arm shoulder decreased range of motion. No edema noted. Strength is intact. BACK: Nontender without obvious deformity. No CVA tenderness. Transfer Summary This is a 61-year-old male with a past medical history of chronic pancreatitis, hypertension, type 2 diabetes who presented with abdominal pain that started Tuesday. Patient stated that abdominal pain is located in the left lower quadrant and it was very mild. He said over the weekend has worsened in intensity and is constant. Patient stated that he has some nausea that resolves or improves with food. Deny any emesis. Patient also complains of a chronic productive cough that has been the same. He denies any diarrhea or constipation and see that his stools are normal. Patient also denies any fever or chills. She was admitted to hospitalist service and was evaluated subsequently by GI, Dr. Pinto as well as Dr. Henriquez from general surgery in view of abnormal CT abdomen pelvis with left upper quadrant inflammatory change in these and treat with edema and KUBs raising question of SBO. She underwent E lap with lysis of lesions under general anesthesia by Dr. Henriquez on 09/10, EBL 100 cc, received 2 L crystalloid intraoperatively, postop diagnosis small bowel adhesions. Patient was kept intubated postoperatively and transferred to [facility]. I saw the patient shortly after his arrival to the ICU. He had just been started on Versed and fentanyl and dropped his blood pressure to the 60 systolic range. He was ordered a fluid bolus 2 L crystalloids stat and started on Levophed for hypotension. Stat cultures were sent. Patient also is having problem with his O2 sats were dropping in the 80s. Stat chest x-ray was ordered. While waiting for chest x-ray, ET tube pilot control operator helper balloon appeared damaged hence cuff was not holding air so patient was sedated with Etomidate/ Fentanyl/ Rocuronium and ET tube was changed over a tube exchanger which was confirmed with a postprocedure chest x-ray with satisfactory placement of ET tube, right IJ central line in place, bilateral interstitial infiltrates with hyperinflated lung rothman, no pneumothorax. Patient was requiring 2 mics of Levophed for pressor support. 09/11: Ongoing hypotension and difficulty with oxygenation. Persistent hypotension responsive to volume. CVP 20. Suspect chronic pulmonary hypertension with heavily preload-dependent cardiac output. Will start milrinone for RV support and add vasopressin to levophed prn. Sustained tachycardia prohibits continued escalation of levophed. Underlying lung function is marginal at best. 09/12 0740 hrs: Severe chronic lung disease without significant reserve appears to be the primary pathophysiology here. We were able to produce acceptable cardiac output yesterday with milrinone and vasopressin, minor amounts levophed for peripheral support. He has developed refractory hypoxemia overnight in the 60 - 70% range which is incompatible with survival. Cardiopulmonary dynamics have been maximized and are beginning to deteriorate. Will get another CXR and see if thoracentesis will help lung function. 09/12 1600 hours: Continued difficulty with oxygenation, sats in range 78 - 81% .Cardioverted pharmacologically back to NSR and Flotrac output 7.8. Abdominal pressure 18. At this point he has adequate blood flow and oxygen delivery capacity despite low PO2. We have tried various vent modes and PC/AC appears to work best. SVV is 10; altogether these observations recommend diuresis to help oxygenation. He has horrible diffuse emphysema and a moderate right pleural effusion - may be forced to place a chest tube to allow better lung expansion. 09/13: Improved oxygenation after aggressive diuresis. Renal function remains stable. Alert, responsive. 09.14: Continued good diuresis after lasix. A-aO2 gradient marginally improved. Remains alert. 09/15: Currently afebrile. Almost off norepinephrine drip. Awake and alert and follows commands. FiO2 70%. 09/16: Complaining of air hunger on the ventilator. Currently afebrile. FiO2 back down at 70%. Inspiratory pressure decreased from 18 to 12. 09/17: Awake and alert. Central line was changed to the left side. Afebrile. FiO2 down to 60%. On 2 g per min of norepinephrine. 09/18: Awake and alert. No acute changes overnight. FiO2 was remains at 60%. Tolerating tube feeding. 09/19: Tmax 99.8. Currently 99. No bowel movement. Tolerating tube feeds. Right chest tube removed yesterday we'll attempt to remove left chest tube today. Awake and alert and following commands. 09/20: Orally intubated on mechanical ventilation. Off sedation he is awake and alert following commands. 09/21: Sedated, easily arousable, orally intubated on mechanical ventilation. Tolerating C Pap with pressure support overnight. 09/22: Extubated yesterday. Requiring BiPAP overnight. On Precedex. Awake and alert, following commands. Knows he is at the hospital and verbalizes appropriately. Being diuresed. 09/23: Was on high flow O2 till around 4 AM when he was placed back on BiPAP. He is back on high flow nasal cannula with 70% FiO2 40 L/m. On tube feeds. TPN discontinued yesterday. Left upper axillary swelling noted. 09/24: Was placed on BiPAP last night. Appears comfortable on high flow nasal cannula this morning. Remains on Precedex. -4.8 L in the last 24 hours. Continues to diurese well. Tolerating tube feeds. 09/25: Continues on BiPAP at 40%. Remains on low-dose Precedex. -4 L past 24 hours. Excellent diuresis. Hold Lasix today hold potassium supplementation. Noted elevated white blood cell count. 09/26: Currently on high flow nasal cannula 30%/40 L. Attempt to transition to nasal cannula today. Auto diuresed 4 L overnight. SLOWLY decreasing. Noted that left IJ CVL discontinued yesterday. Blood cultures were drawn. Currently asking to remove wrist restraints. 09/27: On high flow nasal cannula 40% at 25 L. White blood cell count slowly decreasing. Blood cultures no growth. Awake and interactive. Subjective 09/28: Resting comfortably in bed on 25 L O2 30% FiO2. Tolerating PO diet. Getting supplemental tube feeds at night. Has been aggressively diuresed over the last 7 days with good response. Hospital Course This is a 61-year-old male who is admitted secondary to abdominal pain and was found to have small bowel obstruction. Patient had exploratory laparoscopy and had lysis of adhesion. After surgery he went to respiratory failure in which she was intubated. See treatment as below. Small bowel obstruction s/p exploratory lap lysis of adhesions - Dr. Henriquez Chronic pancreatitis Abdominal ascites Internal hemorrhoids Elevated transaminases -GI and general surgeon consulted. Patient was initially put on IV fluids and Zosyn. -GI was consulted due to CT scan showing enteritis and him having them all pain. -Status post EGD by GI. - Pathology revealed chronic gastritis inflammation -Says post colonoscopy by GI 09/06 -incomplete splenic flexure normal mucosa. Internal hemorrhoids. -NG tube was placed since later during hospital course patient developed severe emesis. -Patient was not doing well throughout the hospital course and symptoms worsen so a general surgeon was consulted in which he had an exploratory laparotomy with lysis of adhesion. -NG tube was removed and patient was tolerating his diet. ADA diet/. Pured With honey thickened liquids. -Patient initially put on IV Protonix and was switched to oral Protonix. Toxic metabolic encephalopathy -Due to patient's medical condition was being treated for. -It develop in the ICU after extubation. -Status post off Precedex drip and fentanyl drip. -Seroquel 25 twice a day. Wean down as tolerated A. fib with RVR - normal sinus rhythm/Hypertension/Dyslipidemia/History of splenic artery stenting secondary to aneurysm -After surgery patient did poorly and was put on vasopressin. He was later wean off of that and milrinone. -He later developed H fibrillation with RVR due to his illness. He was put on amiodarone drip that was later DC'd. -During the hospital course was put on Prinivil 10 mg by mouth twice daily for hypertension Acute hypoxemic respiratory failure Severe COPD Pleural effusion status post bilateral chest tubes since removed Right midlung pulmonary nodule/[address] follow-up recommended 6 months -IMPROVING -This occur secondary to COPD after surgery. - Patient was intubated and s/p Extubated on 09/21. -Tax Agent is following. He was put on IV Solu-Medrol, DuoNeb's and was slowly weaned off the IV steroids. -He was later put on Pulmicort twice a day. -During the hospital course due to hypoxia and perfusion patient had chest tube placement bilaterally. -Right chest tube discontinued 09/18 -Left chest tube discontinued 09/19 Diabetes mellitus -Sliding-scale insulin with Accu-Cheks every 4 hours maintain euglycemia/High dose . -On Levemir 15 units twice a day. -Glipizide was held during hospital course. Leukocytosis Anemia Right cephalic/basilic superficial thrombus Thrombocytopenia -Later during the hospital course patient developed acute thrombocytopenia. There is no active bleeding. Hematology was consulted and workup was done. Thrombocytopenia thought to be due to bilateral lower extremity DVT. Histologic Aide started patient on Lovenox and stated that once patient is discharged to be put on a liquids. -Platelets were stable before the discharge and he was discharged on Eliquis 10 mg BID for 7 days then 5 mg twice a day daily. B/L lower extremity DVT -started on Lovenox BID by Heme. -Per heme switch to Eliquis on day of discharge. SIRS -Due to severity of patient's illness in which he became hypotensive. He was started on antibiotics but there is no effective source. -Infectious disease was consulted workup was done which was all negative. -ID has stopped all antibiotics since 09/22 and did well off of antibiotics. -Multiple cultures obtained and all negative. Hypernatremia -Due to dehydration. -Resolved with good by mouth intake. Diarrhea -C. difficile negative. Decondition -Due to severity of illness. PT/OT ff. Left frozen shoulder - x-ray of the shoulder negative. -needs to continue with OT. can takes months before recovery. Pt Condition on Discharge: Stable Discharge Disposition: Discharge to SNF Discharge Time: > 30 minutes Discharge Instructions DIET: Follow Instructions for: Heart Healthy Diet, Diabetic Diet Activities you can perform: Regular-No Restrictions Follow up Referrals: SNF/[facility]/ - Next Day Surgical - 2 Weeks New Medications: Apixaban (Eliquis) 5 Mg Tab 10 MG PO BID take 10 mg by mouth twice a day for 7 days then decrease dosage to 5 mg by mouth twice a day. Need to take at least 3 months for provoked DVT. Blood Clot Prevention #14 Ref 0 TAB Hydrocodone-Acetaminophen ([place]) 5-325 mg Tab 1-2 TAB PO Q6H PRN PAIN #30 Ref 0 TAB Albuterol Neb (Albuterol Neb) 2.5 Mg/3 Ml Neb 2.5 MG NEB Q4HR NEB PRN dyspnea #1 Ref 0 NEBULE Budesonide Neb (Pulmicort Respules) 0.5 Mg/2 Ml Neb 0.5 MG NEB Q12HR NEB Shortness of Breath #1 Ref 0 VIAL Fluticasone Nasal [place] (Fluticasone Nasal [place]) 50 Mcg/Act Naspr 1 SPRAY NASAL BID allergies #1 Ref 0 BOTTLE Guaifenesin ER 12 HR (Mucinex ER 12 HR) 600 Mg [place] 600 MG PO BID congestioon #20 Ref 0 TAB Insulin Detemir Inj (Levemir Inj) 1,000 unit/ 10 ML Vial 8 UNITS SQ Q12HR diabetes #1 Ref 0 VIAL Insulin Human Regular Inj (Novolin R Inj) 1,000 Unit/10 Ml Vial 1 UNIT SQ ACHS SLIDING SCALE diabetes #1 Ref 0 VIAL Loratadine (Claritin) 10 Mg Tab 10 MG PO DAILY allergies #30 Ref 0 TAB Magnesium Hydroxide Liq (Milk of Magnesia Liq) 400 Mg/5 Ml Susp 30 ML PO Q12H PRN CONSTIPATION #200 Ref 0 ML Prednisone (Prednisone) 20 Mg Tab 20 MG PO BID 20 mg by mouth twice a day for 4 days then 10 mg by mouth twice a day for 3 days then 5 mg by mouth twice a day for 3 day. COPD exacerbation Days 9 Ref 0 TAB Quetiapine (Quetiapine) 25 Mg Tab 25 MG PO DAILY agitation #15 Ref 0 TAB Quetiapine (Quetiapine) 100 Mg Tab 50 MG PO HS consider weaning off agitation #15 Ref 0 TAB Continued Medications: Lisinopril (Lisinopril) 10 Mg Tab 10 MG PO DAILY #30 Ref 0 TAB Milady Saeed MD Oct 06, 2016 12:07
[2016-10-06 16:00] VITALS: BP 102/59; PULSE 87; RESP 16; TEMP 97; O2SAT 94
[2016-10-06 17:30] LABS: ANA SCREEN NEG (NEG)
--- NOTE | 2016-10-06 19:08 | HHI.PR ---
Subjective Remarks %, maintans sat61 YOWM with Pancreatitis,COPD,Nicotine use had Exp Lap Tolerates PO On 4LNC Mild SOB Objective Vital Signs Vital Signs Date Time Temp Pulse Resp B/P Pulse Ox O2 Delivery O2 Flow Rate FiO2 10/06/16 16:00 97.0 87 16 102/59 94 10/06/16 12:00 98.6 82 17 105/58 93 10/06/16 08:14 92 Nasal Cannula 5.00 10/06/16 08:00 97.2 94 18 123/69 92 10/06/16 08:00 Nasal Cannula 5.00 10/06/16 00:00 97.4 76 17 100/61 92 10/05/16 20:58 88 Nasal Cannula 5.00 10/05/16 20:00 97.9 83 17 103/62 91 I/O 10/05/16 10/05/16 10/05/16 10/06/16 10/06/16 10/06/16 07:00 15:00 23:00 07:00 15:00 23:00 Intake Total 240 ml 240 ml 240 ml 1200 ml Output Total 300 ml 400 ml 800 ml 350 ml Balance -60 ml -160 ml -560 ml 850 ml Intake Oral 240 ml 240 ml 240 ml 1200 ml Output Urine Total 300 ml 400 ml 800 ml 350 ml # Bowel Movements 2 1 0 Result Diagram: 10/06/1662510/06/16 0626 Objective Remarks GENERAL: MBMN WM , on BIPAP SKIN: Warm and dry. HEAD: Normocephalic. EYES: No scleral icterus. No injection or drainage. NECK: Supple, trachea midline. No JVD or lymphadenopathy. CARDIOVASCULAR: Regular rate and rhythm without murmurs, gallops, or rubs. RESPIRATORY: Breath sounds equal bilaterally. No accessory muscle use. GASTROINTESTINAL: Abdomen soft, non-tender, MUSCULOSKELETAL: No cyanosis, or edema. BACK: Nontender without obvious deformity. No CVA tenderness. A/P Assessment and Plan RF, s/p Extubation Hypoxia Hypotension-resolved S/P Exp Lap COPD Nicotine use DM Thrombocytopenia PLAN: Supplement 02 to keep sat >88% Aerosol nebs. Encourage PO Stable pulm status DC plans for SNF Velasquez Hill MD Oct 06, 2016 19:07
[2016-10-06] MEDS ORDERED: predniSONE 20 MG TAB PO SCH (21:00)
== END 2016-10-06 18:50 | DRG 335 ==
LOC: NEPA 11:31 → NEDA 17:01 → HOCB 20:12 → N03A 09-08 18:22 → N03B 09-08 19:44 → N07B 09-30 22:14
PROVIDERS: ADMIT Family Medicine; ATTEND Family Medicine
PROC: 0DJ08ZZ Inspection of Upper Intestinal Tract, Via Natural or Artificial Opening Endoscopic (ICD-10-PCS; 2016-09-06)
PROC: 0DB68ZX Excision of Stomach, Via Natural or Artificial Opening Endoscopic, Diagnostic (ICD-10-PCS; 2016-09-06)
PROC: 5A1955Z Respiratory Ventilation, Greater than 96 Consecutive Hours (ICD-10-PCS; 2016-09-10)
PROC: 0DNT0ZZ (ICD-10-PCS; 2016-09-10)
PROC: 0DNE0ZZ Release Large Intestine, Open Approach (ICD-10-PCS; 2016-09-10)
PROC: 0WJP0ZZ Inspection of Gastrointestinal Tract, Open Approach (ICD-10-PCS; 2016-09-10)
PROC: 0DNS0ZZ (ICD-10-PCS; principal; 2016-09-10 17:00)
PROC: 30233K1 Transfusion of Nonautologous Frozen Plasma into Peripheral Vein, Percutaneous Approach (ICD-10-PCS; 2016-09-12)
PROC: 0W9B30Z Drainage of Left Pleural Cavity with Drainage Device, Percutaneous Approach (ICD-10-PCS; 2016-09-12)
PROC: 0W9930Z Drainage of Right Pleural Cavity with Drainage Device, Percutaneous Approach (ICD-10-PCS; 2016-09-12)
PROC: 05HN33Z Insertion of Infusion Device into Left Internal Jugular Vein, Percutaneous Approach (ICD-10-PCS; 2016-09-16)
PROC: 5A09357 Assistance with Respiratory Ventilation, Less than 24 Consecutive Hours, Continuous Positive Airway Pressure (ICD-10-PCS; 2016-09-21)
DX: K56.5 Intestinal adhesions [bands] with obstruction (postinfection) (principal); A41.9 Sepsis, unspecified organism; J96.01 Acute respiratory failure with hypoxia; R65.21 Severe sepsis with septic shock; J69.0 Pneumonitis due to inhalation of food and vomit; G92 Toxic encephalopathy; J90 Pleural effusion, not elsewhere classified; K65.9 Peritonitis, unspecified; K85.20 Alcohol induced acute pancreatitis without necrosis or infection; E87.0 Hyperosmolality and hypernatremia; K55.1 Chronic vascular disorders of intestine; E87.1 Hypo-osmolality and hyponatremia; J44.1 Chronic obstructive pulmonary disease with (acute) exacerbation; K86.0 Alcohol-induced chronic pancreatitis; R18.8 Other ascites; I82.403 Acute embolism and thrombosis of unspecified deep veins of lower extremity, bilateral; E87.3 Alkalosis; Z99.11 Dependence on respirator [ventilator] status; I10 Essential (primary) hypertension; E11.9 Type 2 diabetes mellitus without complications; K21.0 Gastro-esophageal reflux disease with esophagitis; J45.909 Unspecified asthma, uncomplicated; E78.00 Pure hypercholesterolemia, unspecified; F17.210 Nicotine dependence, cigarettes, uncomplicated; I25.10 Atherosclerotic heart disease of native coronary artery without angina pectoris; K80.70 Calculus of gallbladder and bile duct without cholecystitis without obstruction; E86.0 Dehydration; F10.10 Alcohol abuse, uncomplicated; Z86.14 Personal history of Methicillin resistant Staphylococcus aureus infection; Z88.0 Allergy status to penicillin; D69.59 Other secondary thrombocytopenia; R00.0 Tachycardia, unspecified; Z78.1 Physical restraint status; I48.91 Unspecified atrial fibrillation; R91.1 Solitary pulmonary nodule; K64.8 Other hemorrhoids; K29.50 Unspecified chronic gastritis without bleeding; M75.02 Adhesive capsulitis of left shoulder; E78.5 Hyperlipidemia, unspecified; E83.39 Other disorders of phosphorus metabolism; E87.6 Hypokalemia; Z79.84 Long term (current) use of oral hypoglycemic drugs; I27.2 Other secondary pulmonary hypertension; D64.9 Anemia, unspecified
CPT/HCPCS: 31500; 36430; 36556; 71010; 71020; 71250; 73030; 74000; 74174; 74176; 74177; 76937; 80048; 80053; 80074; 80076; 80202; 81001; 82270; 82378; 82550; 82552; 82607; 82746; 82805; 82948; 83605; 83690; 83735; 83880; 84100; 84132; 84134; 84155; 84484; 85007; 85014; 85018; 85025; 85027; 85384; 85610; 85730; 86022; 86038; 86301; 86304; 86430; 86703; 86850; 86900; 86901; 86927; 87040; 87070; 87086; 87205; 87328; 87329; 87493; 87641; 88305; 88312; 93005; 93306; 93970; 93971; 94002; 94003; 94640; 94664; 96372; 96374; 96375; C9113; C9399; J0153; J0171; J0282; J0360; J0456; J0610; J0692; J0744; J1120; J1160; J1170; J1450; J1650; J1720; J1815; J1885; J1940; J2250; J2260; J2270; J2405; J2920; J2930; J3010; J3370; J3475; J3480; J7030; J7040; J7050; J7060; J7120; J7512; J7613; J7626; P9017; P9045; Q0169; Q9963; Q9967

== ENCOUNTER 2016-10-14 11:51 | Inpatient (IN) | payer OTHER ==
[~2016-10-14] VITALS: Ht 182.9 cm; Wt 70.4 kg
[~2016-10-14 11:51] MED LIST changes: +ALBU0.08 NEB; +APIX5TAB PO; +BUDE.5I NEB; -FLAG500T PO; +FLUT50SP NASAL; +GLIP10TA6 PO; -GLIP5 PO; -LEVA750T PO; +LEVEMIR SQ; -LISI10 PO; +LISI10TA3 PO; +LORA-361 PO; +MILKSUS PO; +MUCI600T PO; +NORC5TAB PO; +NOVORP2 SQ; -PANT40IN3 PO; +PRED20 PO; +QUET1TAB7 PO; +QUET1TAB8 PO
[2016-10-14 12:00] VITALS: BP 101/57; PULSE 103; RESP 28; TEMP 98.5
[2016-10-14] MEDS ORDERED: methylPREDNISolone SOD SUCC 125 MG/2 ML VIAL IVP ONE (12:15)
[2016-10-14 12:22] LABS: BLOOD GAS BASE EXCESS 10.9 mmol/L (-2-2); BLOOD GAS CARBOXYHEMOGLOBIN 2.3 % (0-4); BLOOD GAS HCO3 35 mmol/L (22-26); BLOOD GAS METHEMOGLOBIN 0.5 % (0-2); BLOOD GAS O2 HGB SATURATION 96 % (90-100); BLOOD GAS OXYGEN CONTENT 16.4 Vol % (12.0-20.0); BLOOD GAS PCO2 45 mmHg (38-42); BLOOD GAS PO2 124 mmHG (61-120); CRITICAL VALUE NO; DRAW SITE LT RADIAL; FIO2 100 %; LITER FLOW 15 L/M; NUMBER OF ARTERIAL PUNCTURES 1; STAT YES; TEMP CORR TO 98.6; ULNAR PULSE PRESENT
[2016-10-14 12:26] LABS: AUTOMATED NEUTROPHIL # 14.1 TH/MM3 (1.8-7.7); BASOPHIL # 0.1 TH/MM3 (0-0.2); BASOPHIL % 0.3 % (0.0-2.0); EOSINOPHIL % 0.3 % (0.0-4.0); HEMATOCRIT 36.9 % (39.0-51.0); HEMO FLAGS DIFF FINAL; LYMPH % 8.6 % (9.0-44.0); LYMPHOCYTE # 1.5 TH/MM3 (1.0-4.8); MEAN CELL VOLUME 89.6 FL (80.0-100.0); MEAN CORPUSCULAR HEMOGLOBIN 29.6 PG (27.0-34.0); MEAN CORPUSCULAR HGB CONC 33.1 % (32.0-36.0); MONO % 8.4 % (0.0-8.0); NEUT % 82.4 % (16.0-70.0); PLATELET COUNT 206 TH/MM3 (150-450); RED BLOOD COUNT 4.11 MIL/MM3 (4.50-5.90); RED CELL DISTRIBUTION WIDTH 17.7 % (11.6-17.2)
[2016-10-14] MEDS: RESP: ALBUTEROL 2.5 MG/IPRATROPIUM 0.5 MG NEB (SCH) INH ×4 (12:32→19:47)
[2016-10-14 12:35] LABS: INTERNATIONAL NORMALIZED RATIO 1.1 RATIO; PROTHROMBIN TIME - PATIENT 12.7 SEC (9.8-11.6)
[2016-10-14 12:45] LABS: ALT (GPT) 29 U/L (12-78); ANION GAP 8 MEQ/L (5-15); AST (GOT) 19 U/L (15-37); BLOOD UREA NITROGEN 11 MG/DL (7-18); CHLORIDE 93 MEQ/L (98-107); GLOMERULAR FILTRATION RATE 214 ML/MIN (>89); MAGNESIUM 1.1 MG/DL (1.5-2.5); POTASSIUM 3.4 MEQ/L (3.5-5.1); SODIUM (NA) 138 MEQ/L (136-145)
[2016-10-14 12:48] LABS: ALKALINE PHOSPHATASE 111 U/L (45-117); TOTAL BILIRUBIN ADULT 1.1 MG/DL (0.2-1.0)
--- NOTE | 2016-10-14 12:48 | RADRPT ---
EXAM DATE/TIME: 10/14/2016 12:22 [facility] COMPARISON: CHEST SINGLE AP, September 24, 2016, 6:14. INDICATIONS : Shortness of breath. MEDICAL HISTORY : Hypertension. Chronic obstructive pulmonary disease. SURGICAL HISTORY : None. ENCOUNTER: Initial ACUITY: 2 days PAIN SCORE: 0/10 LOCATION: Bilateral chest FINDINGS: Right basilar patchiness is noted consistent with possible atelectasis and/or pneumonia. Clinical co rrelation is recommended. Emphysematous changes are noted involving the upper lobes bilaterally. Th e left lung is clear. The heart is stable. CONCLUSION: 1. Right basilar patchiness consistent with atelectasis and/or pneumonia. Clinical correlation is r ecommended. 2. Upper lobe emphysematous changes bilaterally. Jostin Crow MD on October 14, 2016 at 12:41 Board Certified Radiologist. This report was verified electronically.
[2016-10-14] MEDS ORDERED: APIX5TAB PO (12:53)
--- NOTE | 2016-10-14 13:28 | PD ---
HPI Chief Complaint: Respiratory Symptoms Time Seen by Provider: 12:05 Travel History International Travel<30 days: No Contact w/Intl Traveler<30days: No Traveled to known affect area: No History of Present Illness HPI 61-year-old male brought to the emergency room by EMS from the [place] [facility] for respiratory distress and hypoxia. Patient recently had abdominal surgery for small bowel obstruction, enteritis, SMA blockage and stent placement. After being in the hospital for a few days he was sent to the [place]. As per the note sent from the [facility] patient was found in respiratory distress today with his oxygen saturation in the low 80s. He was given an albuterol nebulizer and 911 was called. When EMS arrived patient was switched from 2 L of nasal cannula at 2 days mask and oxygen saturations went up to 97%. He was also given a nebulizer on route. Patient is denying of any significant pain. During his hospitalization he had history of DVT and was started on Eliquis. He was tachycardic. [facility] Past Medical History Narrative Medical List of his past medical, surgical, social and family history was reviewed from the nursing note. Arthritis: No Asthma: No Autoimmune Disease: No Blood Disorders: No Anxiety: No Depression: No Heart Rhythm Problems: No Cancer: No Cardiovascular Problems: Yes High Cholesterol: Yes Chemotherapy: No Chest Pain: No Congestive Heart Failure: No COPD: Yes Cerebrovascular Accident: No Diabetes: Yes Patient Takes Glucophage: Yes Diminished Hearing: No Endocrine: Yes Gastrointestinal Disorders: Yes GERD: Yes Genitourinary: No Headaches: Yes Hiatal Hernia: No Hypertension: Yes Immune Disorder: No Implanted Vascular Access Dvce: Yes Kidney Stones: No Musculoskeletal: No Neurologic: No Psychiatric: No Reproductive: No Respiratory: Yes Immunizations Current: Yes Migraines: No Pancreatitis: Yes Pneumonia: Yes Radiation Therapy: No Renal Failure: No Seizures: No Sickle Cell Disease: No Sleep Apnea: No Thyroid Disease: No Ulcer: No Past Surgical History Abdominal Surgery: Yes ("STENT IN SPLEEN") AICD: No Arteriovenous Shunt: No Body Medical Devices: "STENT IN SPLEEN" Cardiac Surgery: No Ear Surgery: No Endocrine Surgery: No Eye Surgery: No Genitourinary Surgery: No Gynecologic Surgery: No Insulin Pump: No Joint Replacement: No Neurologic Surgery: No Oral Surgery: No Pacemaker: No Thoracic Surgery: No Other Surgery: Yes (BACK SURGERY 25 YEARS AGO) Social History Alcohol Use: No Tobacco Use: Yes Substance Use: No Allergies-Medications (Allergen,Severity, Reaction): Coded Allergies: Penicillin (Verified Allergy, Severe, SWELLING, 09/11/16) has tolerated Cephalosporins in previous admissions *MDRO Multi-Drug Resistant Organism (Verified Adverse Reaction, Unknown, ) Hx MRSA Sputum 2006, Wounds 2003 MRSA PCR Screen negative 11/25/14 & 09/10/15. Cleared per Infection Control. Patient does not require isolation for hx of MRSA prior to 09/10/15. Comments List of his allergies reviewed from the nursing note. Reported Meds & Prescriptions Reported Meds & Active Scripts Active Carmichael (Hydrocodone-Acetaminophen) 5-325 mg Tab 1-2 Tab PO Q6H PRN Quetiapine (Quetiapine Fumarate) 100 Mg Tab 50 Mg PO HS consider weaning off Quetiapine (Quetiapine Fumarate) 25 Mg Tab 25 Mg PO DAILY Prednisone 20 Mg Tab 20 Mg PO BID 9 Days 20 mg by mouth twice a day for 4 days then 10 mg by mouth twice a day for 3 days then 5 mg by mouth twice a day for 3 day. Milk of Magnesia Liq (Magnesium Hydroxide) 400 Mg/5 Ml Susp 30 Ml PO Q12H PRN Claritin (Loratadine) 10 Mg Tab 10 Mg PO DAILY Novolin R Inj (Insulin Human Regular) 1,000 Unit/10 Ml Vial 1 Unit SQ ACHS SLIDING SCALE Levemir Inj (Insulin Detemir) 1,000 unit/ 10 ML Vial 8 Units SQ Q12HR Mucinex ER 12 HR (Guaifenesin) 600 Mg [place] 600 Mg PO BID Fluticasone Nasal [place] 50 Mcg/Act Naspr 1 [place] NASAL BID Albuterol Neb (Albuterol Sulfate) 2.5 Mg/3 Ml Neb 2.5 Mg NEB Q4HR NEB PRN Pulmicort Respules (Budesonide) 0.5 Mg/2 Ml Neb 0.5 Mg NEB Q12HR NEB Reported Eliquis (Apixaban) 5 Mg Tab 5 Mg PO BID Lisinopril 10 Mg Tab 10 Mg PO DAILY Narrative Medication List of his home medications reviewed from the nursing note. Review of Systems Except as stated in HPI: all other systems reviewed are Neg Physical Exam Narrative GENERAL: Awake, alert, looks older than his age, moderate distress SKIN: Focused skin assessment warm/dry. HEAD: Atraumatic. Normocephalic. EYES: Pupils equal and round. No scleral icterus. No injection or drainage. ENT: No nasal bleeding or discharge. Mucous membranes pink and moist. NECK: Trachea midline. No JVD. CARDIOVASCULAR: Regular rate and rhythm. No murmur appreciated. RESPIRATORY: Tachypnea, moderate respiratory distress. Clear to auscultation. Breath sounds equal bilaterally. GASTROINTESTINAL: Abdomen soft, non-tender, nondistended. Hepatic and splenic margins not palpable. Patient has a midline incision that has Steri-Strips and appears to be healthy with no drainage. MUSCULOSKELETAL: No obvious deformities. No clubbing. No cyanosis. No edema. NEUROLOGICAL: Awake and alert. No obvious cranial nerve deficits. Motor grossly within normal limits. Normal speech. PSYCHIATRIC: Appropriate mood and affect; insight and judgment normal. Data Data Last Documented VS Vital Signs Date Time Temp Pulse Resp B/P Pulse Ox O2 Delivery O2 Flow Rate FiO2 10/14/16 14:03 95 15 110/59 94 Simple Mask 2 10/14/16 12:00 98.5 Orders Complete Blood Count With Diff (10/14/16 12:05) Comprehensive Metabolic Panel (10/14/16 12:05) B-Type Natriuretic Peptide (10/14/16 12:05) Prothrombin Time / Inr (Pt) (10/14/16 12:05) Magnesium (Mg) (10/14/16 12:05) Troponin I (10/14/16 12:05) Arterial Blood Gas (Abg) (10/14/16 12:05) Urinalysis - C+S If Indicated (10/14/16 12:05) Blood Culture (10/14/16 12:05) Iv Access Insert/Monitor (10/14/16 12:05) Electrocardiogram (10/14/16 12:05) Ecg Monitoring (10/14/16 12:05) Oximetry (10/14/16 12:05) Oxygen Administration (10/14/16 12:05) Chest, Single Ap (10/14/16 12:05) Ct Pulmonary Angiogram (10/14/16 12:05) Sodium Chloride 0.9% Flush (Ns Flush) (10/14/16 12:15) Methylprednisolone So Succ Inj (Solumedr (10/14/16 12:15) Albuterol-Ipratropium Neb (Duoneb Neb) (10/14/16 12:15) Ct Abd/Pel W Iv Contrast(Rout) (10/14/16 ) Lipase (10/14/16 12:05) Lactic Acid (10/14/16 13:22) Piperacil-Tazo 4.5 Gm Premix (Zosyn 4.5 (10/14/16 13:30) Vancomycin Inj (Vancomycin Inj) (10/14/16 13:30) Iohexol 350 Inj (Omnipaque 350 Inj) (10/14/16 13:43) Admit Order (Ed Use Only) (10/14/16 14:55) Labs Laboratory Tests Test 10/14/16 10/14/16 12:05 13:00 White Blood Count 17.0 TH/MM3 Red Blood Count 4.11 MIL/MM3 Hemoglobin 12.2 GM/DL Hematocrit 36.9 % Mean Corpuscular Volume 89.6 FL Mean Corpuscular Hemoglobin 29.6 PG Mean Corpuscular Hemoglobin 33.1 % Concent Red Cell Distribution Width 17.7 % Platelet Count 206 TH/MM3 Mean Platelet Volume 8.3 FL Neutrophils (%) (Auto) 82.4 % Lymphocytes (%) (Auto) 8.6 % Monocytes (%) (Auto) 8.4 % Eosinophils (%) (Auto) 0.3 % Basophils (%) (Auto) 0.3 % Neutrophils # (Auto) 14.1 TH/MM3 Lymphocytes # (Auto) 1.5 TH/MM3 Monocytes # (Auto) 1.4 TH/MM3 Eosinophils # (Auto) 0.0 TH/MM3 Basophils # (Auto) 0.1 TH/MM3 CBC Comment DIFF FINAL Differential Comment Prothrombin Time 12.7 SEC Prothromb Time International 1.1 RATIO Ratio Blood Gas Puncture Site LT RADIAL Blood Gas Patient Temperature 98.6 Blood Gas HCO3 35 mmol/L Blood Gas Base Excess 10.9 mmol/L Blood Gas Oxygen Saturation 96 % Arterial Blood pH 7.50 Arterial Blood Partial 45 mmHg Pressure CO2 Arterial Blood Partial 124 mmHG Pressure O2 Arterial Blood Oxygen Content 16.4 Vol % Arterial Blood 2.3 % Carboxyhemoglobin Arterial Blood Methemoglobin 0.5 % Blood Gas Hemoglobin 12.0 G/DL Oxygen Delivery Device Non-Rebreathing Mask Blood Gas Liter Flow 15 L/M Blood Gas Inspired Oxygen 100 % Sodium Level 138 MEQ/L Potassium Level 3.4 MEQ/L Chloride Level 93 MEQ/L Carbon Dioxide Level 37.0 MEQ/L Anion Gap 8 MEQ/L Blood Urea Nitrogen 11 MG/DL Creatinine 0.41 MG/DL Estimat Glomerular Filtration 214 ML/MIN Rate Random Glucose 217 MG/DL Calcium Level 7.9 MG/DL Magnesium Level 1.1 MG/DL Total Bilirubin 1.1 MG/DL Aspartate Amino Transf 19 U/L (AST/SGOT) Alanine Aminotransferase 29 U/L (ALT/SGPT) Alkaline Phosphatase 111 U/L Troponin I 0.04 NG/ML B-Type Natriuretic Peptide 316 PG/ML Total Protein 5.8 GM/DL Albumin 2.4 GM/DL Lipase 50 U/L Urine Color YELLOW Urine Turbidity CLEAR Urine pH 7.5 Urine Specific [place] 1.012 Urine Protein TRACE mg/dL Urine Glucose (UA) NEG mg/dL Urine Ketones NEG mg/dL Urine Occult Blood NEG Urine Nitrite NEG Urine Bilirubin NEG Urine Urobilinogen 4.0 MG/DL Urine Leukocyte Esterase NEG Urine RBC 3 /hpf Urine WBC 4 /hpf Urine Squamous Epithelial <1 /hpf Cells Microscopic Urinalysis Comment CULT NOT INDICATED Lactic Acid Level 2.4 mmol/L MDM Medical Decision Making Medical Screen Exam Complete: Yes Emergency Medical Condition: Yes Medical Record Reviewed: Yes Interpretation(s) Twelve-lead EKG was reviewed by me. Normal sinus rhythm, normal axis, tachycardia, nonspecific ST-T wave changes. Heart rate of 103 bpm. Differential Diagnosis Pneumonia, pleural effusion, PE, sepsis Narrative Course 1:28 PM blood test results are back. White count is elevated and chest x-ray suggestive of pneumonia. WBC is elevated. I started him on Zosyn and vancomycin for hospital-acquired pneumonia. I waiting for the CAT scan to be done and resulted. Patient will require admission. 1:[address] scan of the abdomen and pelvis shows calcification of the pancreas without signs of acute pancreatitis. CT scan of the thorax shows right-sided pleural effusion with consolidation. I put a call out for the residents for his admission. Critical Care Narrative Aggregate critical care time was 45 minutes. Time to perform other separately billable procedures was not included in the critical care time. My time did not include minutes spent treating any other patients simultaneously or on activities that did not directly contribute to the patient's treatment. The services I provided to this patient were to treat and/or prevent clinically significant deterioration that could result in: Respiratory distress, hypoxia, sepsis I provided critical care services requiring my management, as noted below: Chart data review, documentation time, medication orders and management, vital sign assessments/reviewing monitor data, ordering and reviewing lab tests, ordering and interpreting/reviewing x-rays and diagnostic studies, care of the patient and discussion of the patient with the admitting physicians. Procedures EKG Prior to Arrival: No Diagnosis Primary Impression: Sepsis Qualified Code: A41.9 - Sepsis, due to unspecified organism Additional Impressions: Respiratory distress Hypoxia Pneumonia Qualified Code: J18.1 - Pneumonia of right lower lobe due to infectious organism Pleural effusion Admitting Information Admitting Physician Requests: it Yousif Weaver MD Oct 14, 2016 13:28
[2016-10-14] MEDS ORDERED: PIPERACIL-TAZO 4.5 GM PREMIX 100 ML IV ONE (13:30)
[2016-10-14] MEDS ORDERED: VANCOMYCIN INJ 1,000 MG in SODIUM CHLOR 0.9% 250 ML INJ 250 ML IV ONE (13:30)
[2016-10-14] MEDS ORDERED: IOHEXOL 350 MG/ML 10 ML VIAL (for RAD DIAG) IV ONE (13:43)
--- NOTE | 2016-10-14 13:44 | RADRPT ---
EXAM DATE/TIME: 10/14/2016 13:09 [facility] COMPARISON: CT ABDOMEN & PELVIS W/O CONTRAST, September 08, 2016, 23:45. INDICATIONS : Abdominal pain. IV CONTRAST: 75 cc Omnipaque 350 (iohexol) IV ORAL CONTRAST: No oral contrast ingested. RADIATION DOSE: 11.34 CTDIvol (mGy) MEDICAL HISTORY : Pancreatitis. Chronic obstructive pulmonary disease. Diabetes mellitus type 2.High blood pressure SURGICAL HISTORY : None. ENCOUNTER: Initial ACUITY: 1 day PAIN SCALE: 7/10 LOCATION: Bilateral lower quadrant TECHNIQUE: Volumetric scanning of the abdomen and pelvis was performed. Using automated exposure control and ad justment of the mA and/or kV according to patient size, radiation dose was kept as low as reasonably achievable to obtain optimal diagnostic quality images. FINDINGS: CT Abdomen: The liver, spleen, adrenals are unremarkable. There are calcifications involving the panc reas due to prior episodes of pancreatitis. There is no evidence for any appreciable pathological valentin nopathy, free fluid, or bowel obstruction. Chronic vascular calcifications are present involving the aorta, iliac arteries without any significant stenosis or aneurysmal dilatations for technique. Appr oximate 2 cm simple cyst is present in the right kidney. There are calcifications in both kidneys omid t appear to be vascular. The gallbladder demonstrates multiple stones without gallbladder wall thicke justine, or pericholecystic fluid. Small right pleural effusion is seen. Slight bibasilar atelectasis an d/or infiltrate is seen. There are old healed rib fractures in the left chest. CT pelvis: There is no evidence for mass, abscess formation, or any significant adenopathy within the pelvis. There is moderate amount of stool throughout the colon particularly the rectum. There is sli ght thickening of the presacral fascia planes produce a mass effect from significant fecal impaction. CONCLUSION: 1. Calcifications in the pancreas from chronic pancreatitis without evidence for acute pancreatitis. 2. Small right pleural effusion and bibasilar atelectasis and/or infiltrate. 3. Cholelithiasis. 4. Fecal impaction. Anthony Baird MD on October 14, 2016 at 13:36 Board Certified Radiologist. This report was verified electronically.
[2016-10-14 13:48] LABS: BLOOD, URINE NEG (NEG); COMMENT (UR) CULT NOT INDICATED; CULTURE IF INDICATED CULT NOT INDICATED; GLUCOSE,URINE NEG (NEG); KETONE, URINE NEG (NEG); NITRITE,URINE NEG (NEG); PH, URINE 7.5 (5.0-8.5); SQUAMOUS EPITHELIAL CELL URINE <1 /hpf (0-5); URINE COLOR YELLOW (YELLW/STRAW)
[2016-10-14 14:03] VITALS: BP 110/59; PULSE 95; PULSE 98; RESP 15; O2SAT 94; O2SAT 96
--- NOTE | 2016-10-14 14:36 | RADRPT ---
EXAM DATE/TIME: 10/14/2016 13:05 [facility] COMPARISON: CT THORAX W/O CONTRAST, September 25, 2016, 17:09. INDICATIONS : Low oxygen saturation, with shortness of breath. IV CONTRAST: 73 cc Omnipaque 350 (iohexol) IV RADIATION DOSE: 9.40 CTDIvol (mGy) MEDICAL HISTORY : Hypertension. Chronic obstructive pulmonary disease. Pancreatitis.Diabetes SURGICAL HISTORY : None. ENCOUNTER: Initial ACUITY: 1 day PAIN SCALE: 0/10 LOCATION: Chest TECHNIQUE: Volumetric scanning of the chest was performed using a pulmonary embolism protocol MIP images were re constructed. Using automated exposure control and adjustment of the mA and/or kV according to patien t size, radiation dose was kept as low as reasonably achievable to obtain optimal diagnostic quality images. FINDINGS: There is no evidence of pulmonary embolism. New scattered nodular patchy infiltrates are noted bila terally consistent with probable developing pneumonia. Small bilateral pleural effusions with adjace nt compressive atelectasis are noted. There is a stable tiny 5 mm noncalcified nodule within the righ t lateral lung base. Scattered mildly prominent prevascular, AP window, pretracheal and right paratr acheal mediastinal lymph nodes are noted. Subcarinal mediastinal lymphadenopathy is also noted. Cor onary artery calcifications are noted. Severe emphysematous changes and scattered fibrotic scarring are again noted and are stable. Cholelithiasis is noted. CONCLUSION: 1. No evidence of pulmonary embolism. 2. Scattered nodular infiltrates bilaterally consistent with possible developing pneumonia. Clinical correlation is recommended. 3. Stable severe emphysematous changes and scattered fibrotic scarring bilaterally. 4. Small bilateral pleural effusions with adjacent compressive atelectasis. 5. Minimally prominent prevascular, AP window, pretracheal, right paratracheal and subcarinal mediast inal lymphadenopathy which is nonspecific. 6. Coronary artery calcifications. 7. Cholelithiasis. Jostin Crow MD on October 14, 2016 at 13:40 Board Certified Radiologist. This report was verified electronically.
--- NOTE | 2016-10-14 15:19 | HHI.HP ---
[facility] Service Family Medicine Primary Care Physician [facility] Admission Diagnosis sepsis, pneumonia, hypoxia Diagnoses: International Travel<30 Days: No Contact w/Intl Traveler<30days: No Known Affected Area: No History of Present Illness Mr. Garrison is a 61 y/o M with a PMHx of COPD, DM, HTN, and currently with DVT presenting with respiratory distress. Per EMS, patient was found to have oxygen saturations in the 80s at his fdc after physical therapy. He was give 2L via NC with an albuterol treatment without relief. EMS switched his oxygen to a non-rebreathing mask and his oxygenation improved to 97%. He was then transported to the ER for further evaluation. He states that during this episode he felt like he was in "outer space" and would see "little pelaez dots" in his vision. He complains of productive cough with white sputum, SOB, sore throat, and chills. He denies any fevers, chest pain, or hemoptysis. At his baseline he does not use portable oxygen. Of note patient recently was discharged after a hospitalization from 09/11/16 to 10/06/16 for pancreatitis, SBO that required exploratory laparotomy, atrial fibrillation with RVR, and prolonged intubation secondary to toxic metabolic encephalopathy. (Alvino Ashby MD R1) Review of Systems Constitutional: COMPLAINS OF: Chills, DENIES: Fever Eyes: DENIES: Diplopia Respiratory: COMPLAINS OF: Cough, Shortness of breath, DENIES: Hemoptysis, Sputum production Cardiovascular: DENIES: Chest pain, Palpitations Gastrointestinal: DENIES: Abdominal pain, Diarrhea, Nausea, Vomiting Genitourinary: DENIES: Dysuria Musculoskeletal: COMPLAINS OF: Back pain Integumentary: DENIES: Rash Hematologic/lymphatic: DENIES: Lymphadenopathy Neurologic: DENIES: Headache (Alvino Ashby MD R1) Past Family Social History Past Medical History Type 2 diabetes Hypertension Chronic pancreatitis Atrial fibrillation COPD BL LE DVTs R cephalic/basilic superficial thrombus Recent admission with toxic metabolic encephalopathy Frozen L shoulder Past Surgical History Stent placement in the spleen Exploratory laparotomy 09/10/16 (Alvino Ashby MD R1) Allergies: Coded Allergies: Penicillin (Verified Allergy, Severe, SWELLING, 09/11/16) has tolerated Cephalosporins in previous admissions *MDRO Multi-Drug Resistant Organism (Verified Adverse Reaction, Unknown, ) Hx MRSA Sputum 2006, Wounds 2003 MRSA PCR Screen negative 11/25/14 & 09/10/15. Cleared per Infection Control. Patient does not require isolation for hx of MRSA prior to 09/10/15. Family History Mother from [place] at the age of forty-nine. Father has "muscle problems". Sister - healthy Social History Smoke: Currently smoking 3 cigarettes a day, up to 5 packs per day for a total of 78 Alcohol: Occasional alcohol use. Last use was 4-5 months ago. Illicit: Denies any recreational drug use. Currently resident at [facility] for rehabilitation. Full Code (Alvino Ashby MD R1) Physical Exam Vital Signs Vital Signs Date Time Temp Pulse Resp B/P Pulse Ox O2 Delivery O2 Flow Rate FiO2 10/14/16 14:03 95 15 110/59 94 Simple Mask 2 10/14/16 14:03 98 15 110/59 96 Simple Mask 2 10/14/16 12:05 103 28 10/14/16 12:05 Non-Rebreather 15 10/14/16 12:00 98.5 103 28 101/57 Physical Exam GENERAL: 61 y/o M lying in bed in no acute distress. SKIN: Cool and dry. No rashes. HEENT: AT, NC with EOMI. PERRLA. Oropharynx clear with no erythema or exudate. MMM with midline uvula. No palpable LAD. No rhinorrhea. CARDIOVASCULAR: Regular rate and rhythm without murmurs, gallops, or rubs. Distant heart sounds. Chest with 4cm incision. RESPIRATORY: CTAB with very shallow breathing. No CRW or increased work of breathing. Oxygen saturation 94% on 2L. GASTROINTESTINAL: Abdomen soft, non-tender, nondistended with +BS. Midline incision CDI s/p exploratory laparotomy. No masses appreciated. MUSCULOSKELETAL: No cyanosis or edema. No calf tenderness BL. NEUROLOGICAL: AAOx3. Normal speech with proper interaction with examiners. Laboratory Laboratory Tests Test 10/14/16 10/14/16 12:05 13:00 White Blood Count 17.0 Red Blood Count 4.11 Hemoglobin 12.2 Hematocrit 36.9 Mean Corpuscular Volume 89.6 Mean Corpuscular Hemoglobin 29.6 Mean Corpuscular Hemoglobin 33.1 Concent Red Cell Distribution Width 17.7 Platelet Count 206 Mean Platelet Volume 8.3 Neutrophils (%) (Auto) 82.4 Lymphocytes (%) (Auto) 8.6 Monocytes (%) (Auto) 8.4 Eosinophils (%) (Auto) 0.3 Basophils (%) (Auto) 0.3 Neutrophils # (Auto) 14.1 Lymphocytes # (Auto) 1.5 Monocytes # (Auto) 1.4 Eosinophils # (Auto) 0.0 Basophils # (Auto) 0.1 CBC Comment DIFF FINAL Differential Comment Prothrombin Time 12.7 Prothromb Time International 1.1 Ratio Blood Gas Puncture Site LT RADIAL Blood Gas Patient Temperature 98.6 Blood Gas HCO3 35 Blood Gas Base Excess 10.9 Blood Gas Oxygen Saturation 96 Arterial Blood pH 7.50 Arterial Blood Partial 45 Pressure CO2 Arterial Blood Partial 124 Pressure O2 Arterial Blood Oxygen Content 16.4 Arterial Blood 2.3 Carboxyhemoglobin Arterial Blood Methemoglobin 0.5 Blood Gas Hemoglobin 12.0 Oxygen Delivery Device Non-Rebreathing Mask Blood Gas Liter Flow 15 Blood Gas Inspired Oxygen 100 Sodium Level 138 Potassium Level 3.4 Chloride Level 93 Carbon Dioxide Level 37.0 Anion Gap 8 Blood Urea Nitrogen 11 Creatinine 0.41 Estimat Glomerular Filtration 214 Rate Random Glucose 217 Calcium Level 7.9 Magnesium Level 1.1 Total Bilirubin 1.1 Aspartate Amino Transf 19 (AST/SGOT) Alanine Aminotransferase 29 (ALT/SGPT) Alkaline Phosphatase 111 Troponin I 0.04 B-Type Natriuretic Peptide 316 Total Protein 5.8 Albumin 2.4 Lipase 50 Urine Color YELLOW Urine Turbidity CLEAR Urine pH 7.5 Urine Specific [place] 1.012 Urine Protein TRACE Urine Glucose (UA) NEG Urine Ketones NEG Urine Occult Blood NEG Urine Nitrite NEG Urine Bilirubin NEG Urine Urobilinogen 4.0 Urine Leukocyte Esterase NEG Urine RBC 3 Urine WBC 4 Urine Squamous Epithelial <1 Cells Microscopic Urinalysis Comment CULT NOT INDICATED Lactic Acid Level 2.4 Date/Time Procedure Status Source Growth 10/14/16 14:00 Aerobic Blood Culture Received Blood Peripheral Pending 10/14/16 14:00 Anaerobic Blood Culture Received Blood Peripheral Pending (Alvino Ashby MD R1) Result Diagram: 10/14/16 1205 10/14/16 1205 Imaging Last 72 hours Impressions Chest X-Ray 10/14/16 1205 Signed Impressions: Service Date/Time: September 12:22 - CONCLUSION: 1. Right basilar patchiness consistent with atelectasis and/or pneumonia. Clinical correlation is recommended. 2. Upper lobe emphysematous changes bilaterally. Jostin Crow MD Abdomen/Pelvis CT 10/14/16 0000 Signed Impressions: Service Date/Time: September 13:09 - CONCLUSION: 1. Calcifications in the pancreas from chronic pancreatitis without evidence for acute pancreatitis. 2. Small right pleural effusion and bibasilar atelectasis and/or infiltrate. 3. Cholelithiasis. 4. Fecal impaction. Anthony Baird MD (Alvino Ashby MD R1) Assessment and Plan Assessment and Plan Mr. Garrison is a 61 y/o M with a PMHx of COPD, DM, HTN, and currently with DVT presenting with respiratory distress secondary to hospital acquired pneumonia. Code Status FULL Discussed Condition With Dr. Weaver, ER Physician Dr. Anais zSymanski (Alvino Ashby MD R1) Attending Attestation THIS CASE WAS DISCUSSED WITH THE RESIDENT PHYSICIANS. I HAVE REVIEWED THE RECORD AND AGREE WITH THE ABOVE NOTE AND PLAN OF CARE WAS DISCUSSED. I HAVE AUTHORIZED THE ORDER FOR ADMISSION TO AN IN-PATIENT STATUS. (Jasbir Manzo MD) Problem List: (1) Sepsis Status: Acute Plan: Patient admitted with hospital acquired pneumonia currently meeting severe sepsis criteria with tachycardia to 103, WBC of 17, and lactic acid of 2.4. Chest x-ray: Right basilar patchiness consistent with atelectasis/pneumonia. Upper lobe emphysematous changes bilaterally. CTA: No evidence of pulmonary embolism. Scattered nodular infiltrates bilaterally consistent with possible developing pneumonia. Stable severe emphysematous changes and scattered fibrotic scarring bilaterally. Small bilateral pleural effusions with adjacent compressive atelectasis. Minimally prominent prevascular, AP window, pretracheal, right paratracheal, and subcarinal mediastinal lymphadenopathy which is nonspecific. Coronary artery calcifications. Cholelithiasis. CT abdomen and pelvis: Calcifications in the pancreas from chronic pancreatitis without evidence for acute pancreatitis. Small right pleural effusion and bibasilar atelectasis/infiltrate. Cholelithiasis. Fecal impaction. CBC: WBC 17.0 with 82% neutrophils Lactic acid: 2.4, repeat pending Blood cultures : Pending Sputum culture: Pending Consult infectious disease, appreciate recommendations Medications: Vancomycin and Zosyn started in ER 1 L normal saline bolus ordered Normal saline at 100 mL per hour Vancomycin 1 g twice a day: Pharmacy consulted Cefepime 2 g every 8 hours Flagyl 500 mg every 8 hours (2) Hospital-acquired pneumonia Status: Acute Plan: Patient with recent hospitalization admitted for hospital-acquired pneumonia Please see plan as above (3) Chronic obstructive pulmonary disease Status: Acute Plan: Patient with history of chronic obstructive pulmonary disease secondary to extensive smoking history. Imaging as above Respiratory CPT Respiratory physiotherapy/Acapella Incentive spirometry Smoking cessation counseling Medications: Methylprednisolone 125 mg given in ER DuoNeb every 6 hours scheduled Albuterol every 4 hours when necessary dyspnea DuoNeb every 4 hours when necessary shortness of breath Pulmicort twice a day Antibiotics as above (4) DVT (deep venous thrombosis) Status: Acute Plan: Patient found to have bilateral DVT and previous hospitalization currently on Eliquis. Patient was found to be thrombocytopenic likely due to DVTs on prior hospitalization. Bilateral lower external ultrasound 10/05: DVT bilaterally CBC: Platelets 206 Medications: Eliquis 5mg BID (5) Diabetes mellitus, type 2 Status: Chronic Plan: Patient with type 2 diabetes. His current regimen includes Levemir 8 units twice a day with SSI. Levemir 8 units twice a day Sliding scale insulin per protocol (6) HTN (hypertension) Status: Acute Plan: Patient with chronic hypertension Hold home lisinopril due to hypotension (7) GERD (gastroesophageal reflux disease) Status: Chronic Plan: Patient with reported acid reflux disease currently on steroid therapy. Protonix 40 mg daily (8) Atrial fibrillation with RVR Status: Chronic Plan: Patient found to have atrial fibrillation with RVR during prior hospitalization. Currently in sinus rhythm per EKG. EKG: Sinus tachycardia per medical team read. Telemetry (9) Nutrition, metabolism, and development symptoms Status: Acute Plan: Fluids: Normal saline at 100 mL/h Electrolytes: Hypokalemic, repleted. Continue to monitor. Diet: Diabetic diet as tolerated DVT prophylaxis: Currently on Eliquis daily Prophylaxis: Milk of magnesia when necessary for constipation, Zofran when necessary for nausea/vomiting, Tylenol when necessary for fever, Robitussin-DM when necessary for cough Continued home medications: Guaifenesin, Claritin, Flonase, (Alvino Ashby MD R1) Physician Certification 2 Midnight Certification Type: Admission for Inpatient Services Order for Inpatient Services The services are ordered in accordance with Medicare regulations or non- Medicare payer requirements, as applicable. In the case of services not specified as inpatient-only, they are appropriately provided as inpatient services in accordance with the 2-midnight benchmark. Estimated LOS (days): 3 3 days is the estimated time the patient will need to remain in the hospital, assuming treatment plan goals are met and no additional complications. Post-Hospital Plan: SNF (Alvino Ashby MD R1) Problem Qualifiers (1) Sepsis: Qualified Code: A41.9 - Sepsis, due to unspecified organism Alvino Ashby MD R1 Oct 14, 2016 15:19 Jasbir Manzo MD Oct 14, 2016 18:13
[2016-10-14] MEDS ORDERED: MAGNESIUM HYDROXIDE SUSP 30 ML CUP PO PRN (15:30)
[2016-10-14] MEDS ORDERED: RESP: ALBUTEROL 2.5 MG/3 ML NEB (PRN) NEB (15:30)
[2016-10-14] MEDS ORDERED: ACETAMINOPHEN/HYDROcodone 325 MG/5 MG TAB PO PRN (15:30)
[2016-10-14 15:44] VITALS: BP 131/65; PULSE 97; RESP 18; O2SAT 94
[2016-10-14] MEDS ORDERED: GLUCAGON 1 MG/ML VIAL OTHER PRN (15:45)
[2016-10-14] MEDS ORDERED: guaiFENesin/DEXTROMETHORPHAN 200 MG/20 MG/10 ML CUP PO PRN (15:45)
[2016-10-14] MEDS ORDERED: ACETAMINOPHEN 325 MG TAB PO PRN (15:45)
[2016-10-14] MEDS ORDERED: ONDANSETRON HCL 4 MG/2 ML VIAL IV PRN (15:45)
[2016-10-14 16:19] VITALS: O2SAT 92
[2016-10-14] MEDS: SODIUM CHLOR 0.9% 1000 ML INJ 1,000 ML IV SCH (17:02)
[2016-10-14] MEDS: metroNIDAZOLE 500 MG INJ 100 ML IV SCH ×2 (17:03→23:12)
[2016-10-14] MEDS: INSULIN ASPART SUPPLEMENTAL SCALE SQ SCH ×2 (17:07→23:14)
[2016-10-14] MEDS ORDERED: SODIUM CHLOR 0.9% 1000 ML INJ 1,000 ML IV ONE (17:30)
[2016-10-14] MEDS ORDERED: POTASSIUM CHLORIDE 10 MEQ CONTROLLED RELEASE TAB PO ONE (18:00)
--- NOTE | 2016-10-14 18:13 | HHI.HP ---
[facility] Service [facility] Medicine [facility] Diagnosis sepsis, pneumonia, hypoxia Diagnoses: (1) Sepsis (2) Hospital-acquired pneumonia (3) Chronic obstructive pulmonary disease (4) DVT (deep venous thrombosis) (5) Diabetes mellitus, type 2 (6) HTN (hypertension) (7) GERD (gastroesophageal reflux disease) (8) Atrial fibrillation with RVR (9) Nutrition, metabolism, and development symptoms International Travel<30 Days: No Contact w/Intl Traveler<30days: No Known Affected Area: No History of Present Illness 61-year-old male presenting from his rehabilitation facility for hypoxia and shortness of breath. He states that he was somewhat confused this morning and felt short of breath after breathing treatment as rehabilitation facility. EMS was called and he was found to have oxygen saturations in the 80s at which point he was given a breathing treatment and placed on supplemental oxygen with improvement of his oxygenation to 97%. He was brought to the emergency department for further evaluation of his hypoxic episode and altered mental status this morning. He does endorse recent shortness of breath with a productive cough of white sputum, fatigue, and subjective chills. He denies any fevers, denies any chest pain or palpitations, denies any nausea or vomiting , denies any diaphoresis. He has a past medical history significant for recent extended hospital stay () for pancreatitis and a small bowel obstruction requiring expiratory laparotomy with lysis of adhesions and subsequently developed respiratory failure requiring intubation and was monitored in the [facility]. He developed bilateral lower extremity DVTs while hospitalized and was begun on anticoagulant , eventually discharged on Eliquis. He also developed A. fib with RVR while hospitalized that was managed with amiodarone that was eventually discontinued and he was treated with anticoagulation, discharged on Eliquis. He was discharged from [facility] on 10/06/16 and seem to be doing well at his facility to this morning. Past Family Social History Past Medical History Type 2 diabetes Hypertension Chronic pancreatitis Atrial fibrillation COPD BL LE DVTs R cephalic/basilic superficial thrombus Recent admission with toxic metabolic encephalopathy Frozen L shoulder Past Surgical History Stent placement in the spleen Exploratory laparotomy 09/10/16 Allergies: Coded Allergies: Penicillin (Verified Allergy, Severe, SWELLING, 09/11/16) has tolerated Cephalosporins in previous admissions *MDRO Multi-Drug Resistant Organism (Verified Adverse Reaction, Unknown, ) Hx MRSA Sputum 2006, Wounds 2003 MRSA PCR Screen negative 11/25/14 & 09/10/15. Cleared per Infection Control. Patient does not require isolation for hx of MRSA prior to 09/10/15. Family History Mother from [place] at the age of forty-nine. Father has "muscle problems". Sister - healthy Social History Smoke: Currently smoking 3 cigarettes a day, up to 5 packs per day for a total of 78 Alcohol: Occasional alcohol use. Last use was 4-5 months ago. Illicit: Denies any recreational drug use. Currently resident at [facility] for rehabilitation. Full Code Physical Exam Vital Signs Vital Signs Date Time Temp Pulse Resp B/P Pulse Ox O2 Delivery O2 Flow Rate FiO2 10/14/16 16:19 92 Nasal Cannula 2.00 10/14/16 15:44 97 18 131/65 94 Nasal Cannula 2 10/14/16 14:03 95 15 110/59 94 Simple Mask 2 10/14/16 14:03 98 15 110/59 96 Simple Mask 2 10/14/16 12:05 103 28 10/14/16 12:05 Non-Rebreather 15 10/14/16 12:00 98.5 103 28 101/57 Physical Exam GENERAL: 61 y/o M lying in bed in no acute distress. SKIN: Cool and dry. No rashes. Bilateral lower extremities with chronic venous stasis changes. Both finger nails and toenails significantly hypertrophic and thickened with yellowing. HEENT: AT, NC with EOMI. PERRLA. Oropharynx clear with no erythema or exudate. MMM with midline uvula. No palpable LAD. No rhinorrhea. CARDIOVASCULAR: Regular rate and rhythm without murmurs, gallops, or rubs. Distant heart sounds. Chest with 4cm incision. RESPIRATORY: CTAB with very shallow breathing. No CRW or increased work of breathing. Oxygen saturation 94% on 2L. GASTROINTESTINAL: Abdomen soft, non-tender, nondistended with +BS. Midline incision CDI s/p exploratory laparotomy. No masses appreciated. MUSCULOSKELETAL: No cyanosis or edema. No calf tenderness BL. NEUROLOGICAL: AAOx3. Normal speech with proper interaction with examiners. Laboratory Laboratory Tests Test 10/14/16 10/14/16 12:05 13:00 White Blood Count 17.0 Red Blood Count 4.11 Hemoglobin 12.2 Hematocrit 36.9 Mean Corpuscular Volume 89.6 Mean Corpuscular Hemoglobin 29.6 Mean Corpuscular Hemoglobin 33.1 Concent Red Cell Distribution Width 17.7 Platelet Count 206 Mean Platelet Volume 8.3 Neutrophils (%) (Auto) 82.4 Lymphocytes (%) (Auto) 8.6 Monocytes (%) (Auto) 8.4 Eosinophils (%) (Auto) 0.3 Basophils (%) (Auto) 0.3 Neutrophils # (Auto) 14.1 Lymphocytes # (Auto) 1.5 Monocytes # (Auto) 1.4 Eosinophils # (Auto) 0.0 Basophils # (Auto) 0.1 CBC Comment DIFF FINAL Differential Comment Prothrombin Time 12.7 Prothromb Time International 1.1 Ratio Blood Gas Puncture Site LT RADIAL Blood Gas Patient Temperature 98.6 Blood Gas HCO3 35 Blood Gas Base Excess 10.9 Blood Gas Oxygen Saturation 96 Arterial Blood pH 7.50 Arterial Blood Partial 45 Pressure CO2 Arterial Blood Partial 124 Pressure O2 Arterial Blood Oxygen Content 16.4 Arterial Blood 2.3 Carboxyhemoglobin Arterial Blood Methemoglobin 0.5 Blood Gas Hemoglobin 12.0 Oxygen Delivery Device Non-Rebreathing Mask Blood Gas Liter Flow 15 Blood Gas Inspired Oxygen 100 Sodium Level 138 Potassium Level 3.4 Chloride Level 93 Carbon Dioxide Level 37.0 Anion Gap 8 Blood Urea Nitrogen 11 Creatinine 0.41 Estimat Glomerular Filtration 214 Rate Random Glucose 217 Calcium Level 7.9 Magnesium Level 1.1 Total Bilirubin 1.1 Aspartate Amino Transf 19 (AST/SGOT) Alanine Aminotransferase 29 (ALT/SGPT) Alkaline Phosphatase 111 Troponin I 0.04 B-Type Natriuretic Peptide 316 Total Protein 5.8 Albumin 2.4 Lipase 50 Urine Color YELLOW Urine Turbidity CLEAR Urine pH 7.5 Urine Specific [place] 1.012 Urine Protein TRACE Urine Glucose (UA) NEG Urine Ketones NEG Urine Occult Blood NEG Urine Nitrite NEG Urine Bilirubin NEG Urine Urobilinogen 4.0 Urine Leukocyte Esterase NEG Urine RBC 3 Urine WBC 4 Urine Squamous Epithelial <1 Cells Microscopic Urinalysis Comment CULT NOT INDICATED Lactic Acid Level 2.4 Date/Time Procedure Status Source Growth 10/14/16 16:15 Gram Stain Received Sputum Expectorated Sputum Pending 10/14/16 16:15 Sputum Culture Received Sputum Expectorated Sputum Pending 10/14/16 14:00 Aerobic Blood Culture Received Blood Peripheral Pending 10/14/16 14:00 Anaerobic Blood Culture Received Blood Peripheral Pending Result Diagram: 10/14/16 1205 10/14/16 1205 Imaging Last 72 hours Impressions Chest X-Ray 10/14/16 1205 Signed Impressions: Service Date/Time: September 12:22 - CONCLUSION: 1. Right basilar patchiness consistent with atelectasis and/or pneumonia. Clinical correlation is recommended. 2. Upper lobe emphysematous changes bilaterally. Jostin Crow MD Abdomen/Pelvis CT 10/14/16 0000 Signed Impressions: Service Date/Time: September 13:09 - CONCLUSION: 1. Calcifications in the pancreas from chronic pancreatitis without evidence for acute pancreatitis. 2. Small right pleural effusion and bibasilar atelectasis and/or infiltrate. 3. Cholelithiasis. 4. Fecal impaction. Anthony Baird MD Septic Shock Reassessment Heart: Regular rate and rhythm Lungs: Diminished Skin: Warm, Moist, [place] Peripheral Pulses: Bounding Right Radial Bounding Left Radial Capillary Refill: Sluggish, >2 seconds Assessment and Plan Assessment and Plan Mr. Garrison is a 61 y/o M with a PMHx of COPD, DM, HTN, and currently with DVT presenting with respiratory distress secondary to hospital acquired pneumonia. Problem List: (1) Sepsis Status: Acute Plan: Patient admitted with hospital acquired pneumonia currently meeting severe sepsis criteria with tachycardia to 103, WBC of 17, and lactic acid of 2.4. Medications: - Vancomycin 1 g twice a day IV - Cefepime 2 g IV every 8 hours - Flagyl 500 mg every 8 hours - Received vancomycin and Zosyn 1 in the emergency department 1 L normal saline bolus ordered Normal saline at 100 mL per hour Chest x-ray: Right basilar patchiness consistent with atelectasis/pneumonia. Upper lobe emphysematous changes bilaterally. CTA: No evidence of pulmonary embolism. Scattered nodular infiltrates bilaterally consistent with possible developing pneumonia. Stable severe emphysematous changes and scattered fibrotic scarring bilaterally. Small bilateral pleural effusions with adjacent compressive atelectasis. Minimally prominent prevascular, AP window, pretracheal, right paratracheal, and subcarinal mediastinal lymphadenopathy which is nonspecific. Coronary artery calcifications. Cholelithiasis. CT abdomen and pelvis: Calcifications in the pancreas from chronic pancreatitis without evidence for acute pancreatitis. Small right pleural effusion and bibasilar atelectasis/infiltrate. Cholelithiasis. Fecal impaction. CBC: WBC 17.0 with 82% neutrophils Lactic acid: 2.4, repeat pending Blood cultures 2 drawn on 10/14: Pending Sputum culture: Pending Consult infectious disease, appreciate recommendations (2) Hospital-acquired pneumonia Status: Acute Plan: Patient with recent hospitalization admitted for hospital-acquired pneumonia Please see plan as above (3) Chronic obstructive pulmonary disease Status: Acute Plan: Patient with history of chronic obstructive pulmonary disease secondary to extensive smoking history. Imaging as above Respiratory CPT Respiratory physiotherapy/Acapella Incentive spirometry Smoking cessation counseling Medications: Methylprednisolone 125 mg given in ER DuoNeb every 6 hours scheduled Albuterol every 4 hours when necessary dyspnea DuoNeb every 4 hours when necessary shortness of breath Pulmicort twice a day Antibiotics as above (4) DVT (deep venous thrombosis) Status: Acute Plan: Patient found to have bilateral DVT and previous hospitalization currently on Eliquis. Patient was found to be thrombocytopenic likely due to DVTs on prior hospitalization. Bilateral lower external ultrasound 10/05: DVT bilaterally CBC: Platelets 206 Medications: Eliquis 5mg BID (5) Atrial fibrillation with RVR Status: Chronic Plan: Patient found to have atrial fibrillation with RVR during prior hospitalization. Currently in sinus rhythm per EKG. EKG: Sinus tachycardia per medical team read. Telemetry Consider rate control with metoprolol if patient becomes tachycardic or goes back into RVR - Continue Eliquis for anticoagulation (6) Diabetes mellitus, type 2 Status: Chronic Plan: Patient with type 2 diabetes. His current regimen includes Levemir 8 units twice a day with SSI. Levemir 8 units twice a day Sliding scale insulin per protocol (7) HTN (hypertension) Status: Acute Plan: Patient with chronic hypertension Hold home lisinopril due to hypotension (8) GERD (gastroesophageal reflux disease) Status: Chronic Plan: Patient with reported acid reflux disease currently on steroid therapy. Protonix 40 mg daily (9) Nutrition, metabolism, and development symptoms Status: Acute Plan: Fluids: Normal saline at 100 mL/h Electrolytes: Hypokalemic, repleted. Continue to monitor. Diet: Diabetic diet as tolerated DVT prophylaxis: Currently on Eliquis daily Prophylaxis: Milk of magnesia when necessary for constipation, Zofran when necessary for nausea/vomiting, Tylenol when necessary for fever, Robitussin-DM when necessary for cough Continued home medications: Guaifenesin, Claritin, Flonase, Physician Certification 2 Midnight Certification Type: Admission for Inpatient Services Order for Inpatient Services The services are ordered in accordance with Medicare regulations or non- Medicare payer requirements, as applicable. In the case of services not specified as inpatient-only, they are appropriately provided as inpatient services in accordance with the 2-midnight benchmark. Estimated LOS (days): 2 2 days is the estimated time the patient will need to remain in the hospital, assuming treatment plan goals are met and no additional complications. Post-Hospital Plan: Not yet determined Problem Qualifiers (1) Sepsis: Qualified Code: A41.9 - Sepsis, due to unspecified organism Jasbir Manzo MD Oct 14, 2016 18:12
[2016-10-14] MEDS: RESP: BUDESONIDE 0.5 MG/2 ML NEB NEB SCH (19:47)
[2016-10-14 20:00] VITALS: PULSE 100
[2016-10-14 20:52] VITALS: BP 120/84; PULSE 77; RESP 20; TEMP 97.8; O2SAT 93
[2016-10-14] MEDS: FLUTICASONE PROPIONATE 50 MCG/ACT 16 GM NASAL SPRAY NASAL SCH (21:00)
[2016-10-14] MEDS: APIXABAN 5 MG TABLET PO SCH (23:10)
[2016-10-14] MEDS: guaiFENesin E.R. 600 MG TAB PO SCH (23:10)
[2016-10-14] MEDS: INSULIN DETEMIR 100 UNITS/ML VIAL SQ SCH (23:14)
[2016-10-15] VITALS (7 sets, daily range): BP systolic 120–155; BP diastolic 64–74; PULSE 82–95; RESP 18–20; TEMP 96.3–98.7; O2SAT 92
[2016-10-15] MEDS: CEFEPIME INJ 2,000 MG in SODIUM CHLORIDE 0.9% INJ 100 ML IV SCH ×3 (00:06→16:48)
[2016-10-15] MEDS: SODIUM CHLOR 0.9% 1000 ML INJ 1,000 ML IV SCH ×2 (01:04→11:22)
[2016-10-15] MEDS ORDERED: VANCOMYCIN INJ 1,000 MG in SODIUM CHLOR 0.9% 250 ML INJ 250 ML IV ONE (02:00)
[2016-10-15] MEDS ORDERED: SODIUM CHLOR 0.9% 1000 ML INJ 1,000 ML IV ONE (02:00)
[2016-10-15] MEDS: RESP: ALBUTEROL 2.5 MG/IPRATROPIUM 0.5 MG NEB (SCH) INH ×3 (03:12→15:39)
[2016-10-15 06:05] LABS: AUTOMATED NEUTROPHIL # 9.3 TH/MM3 (1.8-7.7); BASOPHIL # 0.1 TH/MM3 (0-0.2); HEMATOCRIT 37.8 % (39.0-51.0); HEMO FLAGS DIFF FINAL; LYMPH % 9.8 % (9.0-44.0); LYMPHOCYTE # 1.1 TH/MM3 (1.0-4.8); MEAN CELL VOLUME 89.9 FL (80.0-100.0); MEAN CORPUSCULAR HEMOGLOBIN 29.5 PG (27.0-34.0); MEAN CORPUSCULAR HGB CONC 32.8 % (32.0-36.0); MONO % 4.5 % (0.0-8.0); NEUT % 84.7 % (16.0-70.0); PLATELET COUNT 197 TH/MM3 (150-450); RED BLOOD COUNT 4.21 MIL/MM3 (4.50-5.90); RED CELL DISTRIBUTION WIDTH 17.6 % (11.6-17.2)
[2016-10-15 06:50] LABS: BICARBONATE 30.2 MEQ/L (21.0-32.0); POTASSIUM 3.9 MEQ/L (3.5-5.1)
[2016-10-15] MEDS: INSULIN ASPART SUPPLEMENTAL SCALE SQ SCH ×4 (07:00→20:30)
[2016-10-15 07:21] LABS: CALCIUM-PROTEIN CORRECTED 8.2 MG/DL (8.5-10.1)
[2016-10-15] MEDS: RESP: BUDESONIDE 0.5 MG/2 ML NEB NEB SCH ×2 (07:52→19:34)
[2016-10-15] MEDS: metroNIDAZOLE 500 MG INJ 100 ML IV SCH ×2 (09:14→16:49)
[2016-10-15] MEDS: guaiFENesin E.R. 600 MG TAB PO SCH ×2 (09:15→20:27)
[2016-10-15] MEDS: LORATADINE 10 MG TAB PO SCH (09:15)
[2016-10-15] MEDS: APIXABAN 5 MG TABLET PO SCH ×2 (09:15→20:27)
[2016-10-15] MEDS: FLUTICASONE PROPIONATE 50 MCG/ACT 16 GM NASAL SPRAY NASAL SCH ×2 (09:15→20:28)
[2016-10-15] MEDS: PANTOPRAZOLE SOD 40 MG DELAYED RELEASE TAB PO SCH (09:15)
[2016-10-15] MEDS: INSULIN DETEMIR 100 UNITS/ML VIAL SQ SCH ×2 (09:16→20:27)
--- NOTE | 2016-10-15 11:34 | HHI.FPPN ---
Subjective Remarks Patient seen and examined this morning by medical team. No acute events overnight. Patient reports that he feels approximately 50% better this morning and is determined to "walk out of the hospital" after his treatment. He currently is saturating 92% on 2L after occupational therapy. He feels that his breathing has improved, but he continues to cough constantly which is his only complaint. He denies any fevers, chest pain, NVD, or calf tenderness. (Alvino Ashby MD R1) Objective Vitals Vital Signs Date Time Temp Pulse Resp B/P Pulse Ox O2 Delivery O2 Flow Rate FiO2 10/15/16 09:52 Nasal Cannula 2.00 10/15/16 08:00 98.7 86 20 134/74 10/15/16 04:00 96.3 91 20 155/74 92 10/15/16 01:16 Nasal Cannula 2.00 10/15/16 00:00 98.2 89 20 135/70 92 10/14/16 20:52 97.8 77 20 120/84 93 10/14/16 20:03 2.00 10/14/16 20:00 100 10/14/16 16:19 92 Nasal Cannula 2.00 10/14/16 15:44 97 18 131/65 94 Nasal Cannula 2 10/14/16 14:03 95 15 110/59 94 Simple Mask 2 10/14/16 14:03 98 15 110/59 96 Simple Mask 2 10/14/16 12:05 103 28 10/14/16 12:05 Non-Rebreather 15 10/14/16 12:00 98.5 103 28 101/57 I/O 10/14/16 10/14/16 10/14/16 10/15/16 10/15/16 10/15/16 07:00 15:00 23:00 07:00 15:00 23:00 Intake Total 360 ml 360 ml Output Total 75 ml 100 ml Balance 285 ml 260 ml Intake Oral 360 ml 360 ml Output Urine Total 75 ml 100 ml # Bowel Movements 0 (Alvino Ashby MD R1) Result Diagram: 10/15/16 0557 10/15/16 0557 Objective Remarks GENERAL: 61 y/o M sitting up in bed in no acute distress. SKIN: Cool and dry. No rashes. Bilateral lower extremities with chronic venous stasis changes. Both finger nails and toenails significantly hypertrophic and thickened with yellowing. HEENT: AT, NC with EOMI. PERRLA. Oropharynx clear with no erythema or exudate. MMM with midline uvula. No palpable LAD. No rhinorrhea. CARDIOVASCULAR: Regular rate and rhythm without murmurs, gallops, or rubs. Distant heart sounds. Chest with 4cm incision. RESPIRATORY: CTAB without CRW or increased work of breathing. Improved air movement from prior exam. Oxygen saturation 92% on 2L. GASTROINTESTINAL: Abdomen soft, non-tender, nondistended with +BS. Midline incision CDI s/p exploratory laparotomy. No masses appreciated. MUSCULOSKELETAL: No cyanosis or edema. No calf tenderness BL. NEUROLOGICAL: AAOx3. Normal speech with proper interaction with examiners. ( Alvino Ashby MD R1) A/P Assessment and Plan Mr. Garrison is a 61 y/o M with a PMHx of COPD, DM, HTN, and currently with DVT presenting with respiratory distress secondary to hospital acquired pneumonia. Discharge Planning Pending clinical course and ID recommendations. WDW: Dr. Manzo, Dr. Fisher (Alvino Ashby MD R1) Attending Attestation Patient examined and case discussed with resident physician I have read the above note and agree with the assessment/plan as discussed with me I was involved in all medical decision making for this patient Jasbir Manzo M.D. (Jasbir Manzo MD) Problem List: (1) Sepsis Status: Acute Plan: Patient admitted with hospital acquired pneumonia currently meeting severe sepsis criteria with tachycardia to 103, WBC of 17, and lactic acid of 2.4. Medications: - Vancomycin 1 g twice a day IV - Cefepime 2 g IV every 8 hours - Flagyl 500 mg every 8 hours - Received vancomycin and Zosyn 1 in the emergency department 1 L normal saline bolus ordered x2 Normal saline at 100 mL per hour Chest x-ray: Right basilar patchiness consistent with atelectasis/pneumonia. Upper lobe emphysematous changes bilaterally. CTA: No evidence of pulmonary embolism. Scattered nodular infiltrates bilaterally consistent with possible developing pneumonia. Stable severe emphysematous changes and scattered fibrotic scarring bilaterally. Small bilateral pleural effusions with adjacent compressive atelectasis. Minimally prominent prevascular, AP window, pretracheal, right paratracheal, and subcarinal mediastinal lymphadenopathy which is nonspecific. Coronary artery calcifications. Cholelithiasis. CT abdomen and pelvis: Calcifications in the pancreas from chronic pancreatitis without evidence for acute pancreatitis. Small right pleural effusion and bibasilar atelectasis/infiltrate. Cholelithiasis. Fecal impaction. CBC: WBC downtrending from 17 to 11 with 84.7% neutrophils Lactic acid: 2.4, 2.3, 1.7 Blood cultures drawn on 10/14: Gram Positive Cocci in pairs and clusters Sputum culture: Gram stain with many WBC and normal respiratory kali. Consult infectious disease, appreciate recommendations (2) Hospital-acquired pneumonia Status: Acute Plan: Patient with recent hospitalization admitted for hospital-acquired pneumonia Please see plan as above (3) Chronic obstructive pulmonary disease Status: Acute Plan: Patient with history of chronic obstructive pulmonary disease secondary to extensive smoking history. Imaging as above Respiratory CPT Respiratory physiotherapy/Acapella Incentive spirometry Smoking cessation counseling Medications: Methylprednisolone 125 mg given in ER DuoNeb every 6 hours scheduled Albuterol every 4 hours when necessary dyspnea DuoNeb every 4 hours when necessary shortness of breath Pulmicort twice a day Tessalon 200mg Q8H PRN for cough Antibiotics as above (4) DVT (deep venous thrombosis) Status: Acute Plan: Patient found to have bilateral DVT and previous hospitalization currently on Eliquis. Patient was found to be thrombocytopenic likely due to DVTs on prior hospitalization. Bilateral lower external ultrasound 10/05: DVT bilaterally CBC: Platelets 206 Medications: Eliquis 5mg BID (5) Atrial fibrillation with RVR Status: Chronic Plan: Patient found to have atrial fibrillation with RVR during prior hospitalization. Currently in sinus rhythm per EKG. EKG: Sinus tachycardia per medical team read. Telemetry Consider rate control with metoprolol if patient becomes tachycardic or goes back into RVR - Continue Eliquis for anticoagulation (6) Diabetes mellitus, type 2 Status: Chronic Plan: Patient with type 2 diabetes. His current regimen includes Levemir 8 units twice a day with SSI. Levemir 8 units twice a day Sliding scale insulin per protocol (7) HTN (hypertension) Status: Acute Plan: Patient with chronic hypertension Hold home lisinopril due to hypotension (8) GERD (gastroesophageal reflux disease) Status: Chronic Plan: Patient with reported acid reflux disease currently on steroid therapy. Protonix 40 mg daily (9) Nutrition, metabolism, and development symptoms Status: Acute Plan: Fluids: Normal saline at 100 mL/h Electrolytes: Hypokalemic, repleted. Continue to monitor. Diet: Diabetic diet as tolerated DVT prophylaxis: Currently on Eliquis daily Prophylaxis: Milk of magnesia when necessary for constipation, Zofran when necessary for nausea/vomiting, Tylenol when necessary for fever, Robitussin-DM when necessary for cough, Hydroxyzine 25mg HS PRN for insomnia Continued home medications: Guaifenesin, Claritin, Flonase (Alvino Ashby MD R1) Problem Qualifiers (1) Sepsis: Qualified Code: A41.9 - Sepsis, due to unspecified organism Alvino Ashby MD R1 Oct 15, 2016 11:34 Jasbir Manzo MD Oct 15, 2016 14:45
--- NOTE | 2016-10-15 12:30 | PD.ID.CON ---
History of Present Illness Service ID Consult Requested By Dr Szymanski Reason for Consult [facility] Diagnoses: History of Present Illness 61 yo male a poor historian presented with abdominal pain He had abdominal surgery on September 10 including expl laparoptomyu and lysis of adhesion for inflammatory mass from panceratitis causing part bowel obstruction Pt presented with hypoxia , leukocytosis, required NRB at some point Now on NC O2 Sptum with normal resp kali His blood clx are g rowing Staph epi 06/30 CXR c RLL PNA and his abdominal CT showed Calcifications in the pancreas from chronic pancreatitis without evidence for acute pancreatitis, small right pleural effusion and bibasilar atelectasis and /or infiltrate, cholelithiasis and fecal impaction Pt was placed on broa pectrum abx: cefepime, flagyl Pt remained afebrile, but his leukocytosis is worsening He also has mild lactic acidodis on admission that promptly resolved Review of Systems ROS Limitations: Poor Historian Except as stated in HPI: all other systems reviewed are Neg Past Family Social History Allergies: Coded Allergies: Penicillin (Verified Allergy, Severe, SWELLING, 09/11/16) has tolerated Cephalosporins in previous admissions *MDRO Multi-Drug Resistant Organism (Verified Adverse Reaction, Unknown, ) Hx MRSA Sputum 2006, Wounds 2003 MRSA PCR Screen negative 11/25/14 & 09/10/15. Cleared per Infection Control. Patient does not require isolation for hx of MRSA prior to 09/10/15. Past Medical History Type 2 diabetes Hypertension Chronic pancreatitis Atrial fibrillation COPD BL LE DVTs R cephalic/basilic superficial thrombus Recent admission with toxic metabolic encephalopathy Frozen L shoulder Past Surgical History Stent placement in the spleen Exploratory laparotomy 09/10/16 (Alvino Ashby MD R1) Active Ordered Medications Medications where reviewed in EMR Antibiotics Include: cefepime flagyl Family History Mother from [place] at the age of forty-nine. Father has "muscle problems". Sister - healthy Social History Smoke: Currently smoking 3 cigarettes a day, Alcohol: Occasional alcohol use. Last use was 4-5 months ago. Illicit: Denies any recreational drug use. Currently resident at [facility] for rehabilitation. Full Code Physical Exam Vital Signs Vital Signs Date Time Temp Pulse Resp B/P Pulse Ox O2 Delivery O2 Flow Rate FiO2 10/15/16 09:52 Nasal Cannula 2.00 10/15/16 08:00 98.7 86 20 134/74 10/15/16 04:00 96.3 91 20 155/74 92 10/15/16 01:16 Nasal Cannula 2.00 10/15/16 00:00 98.2 89 20 135/70 92 10/14/16 20:52 97.8 77 20 120/84 93 10/14/16 20:03 2.00 10/14/16 20:00 100 10/14/16 16:19 92 Nasal Cannula 2.00 10/14/16 15:44 97 18 131/65 94 Nasal Cannula 2 10/14/16 14:03 95 15 110/59 94 Simple Mask 2 10/14/16 14:03 98 15 110/59 96 Simple Mask 2 Physical Exam CONSTITUTIONAL/GENERAL: This is an adequately nourished patient, in no apparent distress. TUBES/LINES/DRAINS: SKIN: No jaundice, rashes, or lesions. Ecchymoses on upper extremities. No wounds seen anteriorly. Skin temperature appropriate. Not diaphoretic. HEAD: Atraumatic. Normocephalic. EYES: Pupils equal and round and reactive. Extraocular motions intact. No scleral icterus. No injection or drainage. Fundi not examined. ENT: Hearing grossly normal. Nose without bleeding or purulent drainage. Throat without visible erythema, exudates, masses, or lesions. NECK: Trachea midline. Supple, nontender. No palpable thyroid enlargement or nodularity. CARDIOVASCULAR: Regular rate and rhythm without murmurs, gallops, or rubs. No JVD. Peripheral pulses symmetric. RESPIRATORY/CHEST: Symmetric, unlabored respirations. Clear to auscultation. Breath sounds equal bilaterally. No wheezes, rales, or rhonchi. GASTROINTESTINAL: Abdomen soft, non-tender, nondistended. Well healed med laparotomy ncision No hepato-splenomegaly, or palpable masses. No guarding. Bowel sounds present. GENITOURINARY: Without palpable bladder distension. MUSCULOSKELETAL: Extremities without clubbing, cyanosis, or edema. No joint tenderness or effusion noted. No calf tenderness. No mottling or clubbing. LYMPHATICS: No palpable cervical or supraclavicular adenopathy. NEUROLOGICAL: Awake and alert. Motor and sensory grossly within normal limits. Follows commands. Normal speech. Moves all extremities. PSYCHIATRIC: No obvious anxiety/depression. no apparent hallucinations or other psychotic thought process. Laboratory Laboratory Tests Test 10/14/16 10/14/16 10/15/16 13:00 21:46 05:57 Urine Color YELLOW Urine Turbidity CLEAR Urine pH 7.5 Urine Specific [place] 1.012 Urine Protein TRACE Urine Glucose (UA) NEG Urine Ketones NEG Urine Occult Blood NEG Urine Nitrite NEG Urine Bilirubin NEG Urine Urobilinogen 4.0 Urine Leukocyte Esterase NEG Urine RBC 3 Urine WBC 4 Urine Squamous Epithelial <1 Cells Microscopic Urinalysis Comment CULT NOT INDICATED Lactic Acid Level 2.4 2.3 1.7 White Blood Count 11.0 Red Blood Count 4.21 Hemoglobin 12.4 Hematocrit 37.8 Mean Corpuscular Volume 89.9 Mean Corpuscular Hemoglobin 29.5 Mean Corpuscular Hemoglobin 32.8 Concent Red Cell Distribution Width 17.6 Platelet Count 197 Mean Platelet Volume 8.1 Neutrophils (%) (Auto) 84.7 Lymphocytes (%) (Auto) 9.8 Monocytes (%) (Auto) 4.5 Eosinophils (%) (Auto) 0.0 Basophils (%) (Auto) 1.0 Neutrophils # (Auto) 9.3 Lymphocytes # (Auto) 1.1 Monocytes # (Auto) 0.5 Eosinophils # (Auto) 0.0 Basophils # (Auto) 0.1 CBC Comment DIFF FINAL Differential Comment Sodium Level 137 Potassium Level 3.9 Chloride Level 100 Carbon Dioxide Level 30.2 Anion Gap 7 Blood Urea Nitrogen 14 Creatinine 0.29 Estimat Glomerular Filtration 319 Rate Random Glucose 161 Calcium Level 7.3 Protein Corrected Calcium 8.2 Total Protein 5.5 Date/Time Procedure Status Source Growth 10/14/16 16:15 Gram Stain - Final Resulted Sputum Expectorated Sputum 10/14/16 16:15 Sputum Culture Resulted Sputum Expectorated Sputum Pending 10/14/16 14:00 Aerobic Blood Culture - Preliminary Resulted Blood Peripheral NO GROWTH IN 1 DAY 10/14/16 14:00 Anaerobic Blood Culture - Preliminary Resulted Staphylococcus Epidermidis Result Diagram: 10/15/16 0557 10/15/16 0557 Imaging Last Impressions Chest X-Ray 10/14/16 1205 Signed Impressions: Service Date/Time: September 12:22 - CONCLUSION: 1. Right basilar patchiness consistent with atelectasis and/or pneumonia. Clinical correlation is recommended. 2. Upper lobe emphysematous changes bilaterally. Jostin Crow MD CT Angiography 10/14/16 1205 Signed Impressions: Service Date/Time: September 13:05 - CONCLUSION: 1. No evidence of pulmonary embolism. 2. Scattered nodular infiltrates bilaterally consistent with possible developing pneumonia. Clinical correlation is recommended. 3. Stable severe emphysematous changes and scattered fibrotic scarring bilaterally. 4. Small bilateral pleural effusions with adjacent compressive atelectasis. 5. Minimally prominent prevascular, AP window, pretracheal, right paratracheal and subcarinal mediastinal lymphadenopathy which is nonspecific. 6. Coronary artery calcifications. 7. Cholelithiasis. Jostin Crow MD Abdomen/Pelvis CT 10/14/16 0000 Signed Impressions: Service Date/Time: September 13:09 - CONCLUSION: 1. Calcifications in the pancreas from chronic pancreatitis without evidence for acute pancreatitis. 2. Small right pleural effusion and bibasilar atelectasis and/or infiltrate. 3. Cholelithiasis. 4. Fecal impaction. Anthony Baird MD Assessment and Plan Assessment and Plan RLL PNA staph epi low grade bacteremia - dobt clinical signiocicance - cont current abx - fu blood clx monitor WBC - monitor cleinically Bibi Mckay MD Oct 15, 2016 12:30
[2016-10-15] MEDS: BENZONATATE 100 MG CAP PO PRN (16:51)
--- NOTE | 2016-10-15 19:52 | EKG ---
Date Performed: 10/14/2016 Time Performed: 12:03:53 PTAGE: 61 years EKG: SINUS TACHYCARDIA Compared to previous tracing, patient is no longer in atrial fibrillation or bradycardic ABNORMAL RHYTHM ECG PREVIOUS TRACING : 09/09/2016 21.44 DOCTOR: Shaheed Mariano Interpretating Date/Time 10/15/2016 19:50:05
[2016-10-15] MEDS: hydrOXYzine HCL 25 MG TAB PO PRN (21:58)
[2016-10-16] VITALS (9 sets, daily range): BP systolic 99–169; BP diastolic 58–87; PULSE 68–104; RESP 18–20; TEMP 97.3–99; O2SAT 91–98
[2016-10-16] MEDS ORDERED: ACETAMINOPHEN/HYDROcodone 325 MG/5 MG TAB PO ONE (00:15)
[2016-10-16] MEDS: metroNIDAZOLE 500 MG INJ 100 ML IV SCH ×2 (00:23→10:03)
[2016-10-16] MEDS: CEFEPIME INJ 2,000 MG in SODIUM CHLORIDE 0.9% INJ 100 ML IV SCH ×2 (00:24→11:17)
[2016-10-16] MEDS: RESP: ALBUTEROL 2.5 MG/IPRATROPIUM 0.5 MG NEB (PRN) INH (00:55)
[2016-10-16] MEDS: RESP: ALBUTEROL 2.5 MG/IPRATROPIUM 0.5 MG NEB (SCH) INH ×4 (03:43→20:46)
[2016-10-16] MEDS: INSULIN ASPART SUPPLEMENTAL SCALE SQ SCH ×4 (05:40→21:00)
[2016-10-16] MEDS: ACETAMINOPHEN/HYDROcodone 325 MG/10 MG TAB PO PRN ×3 (05:40→23:52)
[2016-10-16 07:22] LABS: AUTOMATED NEUTROPHIL # 25.3 TH/MM3 (1.8-7.7); BASOPHIL # 0.1 TH/MM3 (0-0.2); BASOPHIL % 0.3 % (0.0-2.0); EOSINOPHIL # 0.1 TH/MM3 (0-0.4); EOSINOPHIL % 0.3 % (0.0-4.0); HEMATOCRIT 39.9 % (39.0-51.0); LYMPH % 8.7 % (9.0-44.0); LYMPHOCYTE # 2.6 TH/MM3 (1.0-4.8); MEAN CELL VOLUME 89.6 FL (80.0-100.0); MEAN CORPUSCULAR HEMOGLOBIN 28.8 PG (27.0-34.0); MEAN CORPUSCULAR HGB CONC 32.2 % (32.0-36.0); MONO % 5.9 % (0.0-8.0); NEUT % 84.8 % (16.0-70.0); PLATELET COUNT 275 TH/MM3 (150-450); RED BLOOD COUNT 4.46 MIL/MM3 (4.50-5.90); RED CELL DISTRIBUTION WIDTH 17.2 % (11.6-17.2); WHITE BLOOD COUNT 29.9 TH/MM3 (4.0-11.0)
[2016-10-16 07:26] LABS: HEMO FLAGS AUTO DIFF
[2016-10-16] MEDS: RESP: BUDESONIDE 0.5 MG/2 ML NEB NEB SCH ×2 (08:00→20:00)
[2016-10-16 08:20] LABS: BICARBONATE 33.8 MEQ/L (21.0-32.0)
[2016-10-16] MEDS: FLUTICASONE PROPIONATE 50 MCG/ACT 16 GM NASAL SPRAY NASAL SCH ×2 (09:00→21:47)
[2016-10-16] MEDS: INSULIN DETEMIR 100 UNITS/ML VIAL SQ SCH ×2 (09:00→21:45)
[2016-10-16] MEDS: PANTOPRAZOLE SOD 40 MG DELAYED RELEASE TAB PO SCH (10:02)
[2016-10-16] MEDS: LORATADINE 10 MG TAB PO SCH (10:02)
[2016-10-16] MEDS: guaiFENesin E.R. 600 MG TAB PO SCH ×2 (10:02→21:45)
[2016-10-16] MEDS: APIXABAN 5 MG TABLET PO SCH ×2 (10:02→21:45)
--- NOTE | 2016-10-16 10:44 | HHI.FPPN ---
Subjective Remarks Patient seen and examined. No acute events overnight and VS WNL. Oxygen saturation up to 98 on 3L overnight, however currently he is 92% on 3L. He states that yesterday he had R flank pain after an episode of coughing that has resolved this morning. He states that he still feels "50% better" than he did at admission and continues to report difficulty breathing. His cough has improved with the addition of Tessalon to his medications. Otherwise he has no complaints and denies any fevers, chills, chest pain, NVD, dysuria, and calf tenderness. (Alvino Ashby MD R1) Objective Vitals Vital Signs Date Time Temp Pulse Resp B/P Pulse Ox O2 Delivery O2 Flow Rate FiO2 10/16/16 08:45 92 Nasal Cannula 3.00 10/16/16 08:00 98.5 96 18 113/61 92 10/16/16 04:00 97.3 80 20 146/87 98 10/16/16 00:56 91 Nasal Cannula 3.00 10/16/16 00:00 98.0 68 20 169/87 94 10/15/16 20:20 Nasal Cannula 2.00 10/15/16 20:00 86 10/15/16 20:00 98.4 84 20 120/69 92 10/15/16 19:36 92 Nasal Cannula 3.00 10/15/16 16:00 98.5 82 18 122/64 92 10/15/16 12:00 97.9 95 20 126/68 I/O 10/15/16 10/15/16 10/15/16 10/16/16 10/16/16 10/16/16 07:00 15:00 23:00 07:00 15:00 23:00 Intake Total 360 ml 840 ml 220 ml 580 ml Output Total 100 ml 625 ml 650 ml 200 ml Balance 260 ml 215 ml -430 ml 380 ml Intake Oral 360 ml 840 ml 220 ml 580 ml Output Urine Total 100 ml 625 ml 650 ml 200 ml # Bowel Movements 0 0 0 2 (Alvino Ashyb MD R1) Result Diagram: 10/16/1653010/16/16530 Objective Remarks GENERAL: 61 y/o M sitting up in bed in no acute distress. SKIN: Cool and dry. No rashes. Bilateral lower extremities with chronic venous stasis changes. Both finger nails and toenails significantly hypertrophic and thickened with yellowing. HEENT: AT, NC with EOMI. PERRLA. Oropharynx clear with no erythema or exudate. MMM with midline uvula. No palpable LAD. No rhinorrhea. CARDIOVASCULAR: Regular rate and rhythm without murmurs, gallops, or rubs. Distant heart sounds. Chest with 4cm incision. RESPIRATORY: Shallow air movement during exam. Very fine wheezing at BL bases without C/R. no increased WOB. Oxygen saturation 92% on 3L. GASTROINTESTINAL: Abdomen soft, non-tender, nondistended with +BS. Midline incision CDI s/p exploratory laparotomy. No masses appreciated. MUSCULOSKELETAL: No cyanosis or edema. No calf tenderness BL. NEUROLOGICAL: AAOx3. Normal speech with proper interaction with examiners. ( Alvino Ashby MD R1) A/P Assessment and Plan Mr. Garrison is a 61 y/o M with a PMHx of COPD, DM, HTN, and currently with DVT presenting with respiratory distress secondary to hospital acquired pneumonia. Discharge Planning Pending clinical course and ID recommendations. WDW: Dr. Manzo, Dr. Fisher (Alvino Ashby MD R1) Attending Attestation Pt. examined and case discussed with resident physicians I have read the above note and agree with the assessment/plan as discussed with me I was involved in all medical decision making for this patient Jasbir Manzo MD (Jasbir Manzo MD) Problem List: (1) Abnormal laboratory test result Status: Acute Plan: Patient with CBC and BMP values on 10/16/16 not congruent with previous studies or current clinical picture.Team will re-draw labs for confirmation and adjust medical plans accordingly. -CBC: WBC 29.9, H/H 12.8/39.9, platelets 275 -CMP: Potassium 3, Glucose 36 -Beside Glucose: 88 -Physical exam benign -Order serial ABD exams with low threshold to CT ABD/pelvis as he recently had exploratory laparotomy, has extensive ABD history (pancreatitis, cholelithiasis , obstruction) and history of splenic artery aneurysm s/p stent. -Stat redraw for CBC and CMP -Hold insulin, may resume if BG WNL or indicated with SSI (2) Sepsis Status: Acute Plan: Patient admitted with hospital acquired pneumonia currently meeting severe sepsis criteria with tachycardia to 103, WBC of 17, and lactic acid of 2.4. Medications: - Vancomycin 1 g twice a day IV - Cefepime 2 g IV every 8 hours - Flagyl 500 mg every 8 hours - Received vancomycin and Zosyn 1 in the emergency department 1 L normal saline bolus ordered x2 Chest x-ray: Right basilar patchiness consistent with atelectasis/pneumonia. Upper lobe emphysematous changes bilaterally. CTA: No evidence of pulmonary embolism. Scattered nodular infiltrates bilaterally consistent with possible developing pneumonia. Stable severe emphysematous changes and scattered fibrotic scarring bilaterally. Small bilateral pleural effusions with adjacent compressive atelectasis. Minimally prominent prevascular, AP window, pretracheal, right paratracheal, and subcarinal mediastinal lymphadenopathy which is nonspecific. Coronary artery calcifications. Cholelithiasis. CT abdomen and pelvis: Calcifications in the pancreas from chronic pancreatitis without evidence for acute pancreatitis. Small right pleural effusion and bibasilar atelectasis/infiltrate. Cholelithiasis. Fecal impaction. CBC: WBC 17 with 82.4% neutrophils on admission Lactic acid: 2.4, 2.3, 1.7 Blood cultures x2 drawn on 10/14: Aerobic-Gram Positive Cocci, Anaerobic-Staph Epidermidis in one culture; other BC NTD Sputum culture: Gram stain with many WBC and normal respiratory kali. Consult infectious disease, appreciate recommendations * RLL PNA * Continue current ABX as above (3) Hospital-acquired pneumonia Status: Acute Plan: Patient with recent hospitalization admitted for hospital-acquired pneumonia Please see plan as above (4) Chronic obstructive pulmonary disease Status: Acute Plan: Patient with history of chronic obstructive pulmonary disease secondary to extensive smoking history. Imaging as above Respiratory CPT Respiratory physiotherapy/Acapella Incentive spirometry Smoking cessation counseling Medications: Methylprednisolone 125 mg given in ER DuoNeb every 6 hours scheduled Albuterol every 4 hours when necessary dyspnea DuoNeb every 4 hours when necessary shortness of breath Pulmicort twice a day Tessalon 200mg Q8H PRN for cough Antibiotics as above (5) DVT (deep venous thrombosis) Status: Acute Plan: Patient found to have bilateral DVT and previous hospitalization currently on Eliquis. Patient was found to be thrombocytopenic likely due to DVTs on prior hospitalization. Bilateral lower external ultrasound 10/05: DVT bilaterally CBC: Platelets 206 Medications: Eliquis 5mg BID (6) Atrial fibrillation with RVR Status: Chronic Plan: Patient found to have atrial fibrillation with RVR during prior hospitalization. Currently in sinus rhythm per EKG. EKG: Sinus tachycardia per medical team read. Telemetry Consider rate control with metoprolol if patient becomes tachycardic or goes back into RVR - Continue Eliquis for anticoagulation (7) Diabetes mellitus, type 2 Status: Chronic Plan: Patient with type 2 diabetes. His current regimen includes Levemir 8 units twice a day with SSI. Levemir 8 units twice a day Sliding scale insulin per protocol (8) HTN (hypertension) Status: Acute Plan: Patient with chronic hypertension Hold home lisinopril due to hypotension (9) GERD (gastroesophageal reflux disease) Status: Chronic Plan: Patient with reported acid reflux disease currently on steroid therapy. Protonix 40 mg daily (10) Nutrition, metabolism, and development symptoms Status: Acute Plan: Fluids: Fluids stopped as patient tolerating PO fluids Electrolytes: Hypokalemic, repleted. Continue to monitor. Diet: Diabetic diet as tolerated DVT prophylaxis: Currently on Eliquis daily Prophylaxis: Milk of magnesia when necessary for constipation, Zofran when necessary for nausea/vomiting, Tylenol when necessary for fever, Robitussin-DM when necessary for cough, Hydroxyzine 25mg HS PRN for insomnia, [place] 5mg for pain 1-5, [place] 10mg for pain 6-10 as he is s/p exploratory laparotomy Continued home medications: Guaifenesin, Claritin, Flonase (Alvino Ashby MD R1) Problem Qualifiers (1) Sepsis: Qualified Code: A41.9 - Sepsis, due to unspecified organism Alvino Ashby MD R1 Oct 16, 2016 10:44 Jasbir Manzo MD Oct 16, 2016 18:24
[2016-10-16 11:02] LABS: AUTOMATED NEUTROPHIL # 27.5 TH/MM3 (1.8-7.7); BASOPHIL # 0.1 TH/MM3 (0-0.2); BASOPHIL % 0.2 % (0.0-2.0); EOSINOPHIL % 0.2 % (0.0-4.0); HEMATOCRIT 37.6 % (39.0-51.0); LYMPH % 5.8 % (9.0-44.0); LYMPHOCYTE # 1.8 TH/MM3 (1.0-4.8); MEAN CELL VOLUME 89.1 FL (80.0-100.0); MEAN CORPUSCULAR HEMOGLOBIN 29.1 PG (27.0-34.0); MEAN CORPUSCULAR HGB CONC 32.6 % (32.0-36.0); MONO % 4.3 % (0.0-8.0); NEUT % 89.5 % (16.0-70.0); PLATELET COUNT 249 TH/MM3 (150-450); RED BLOOD COUNT 4.23 MIL/MM3 (4.50-5.90); RED CELL DISTRIBUTION WIDTH 17.8 % (11.6-17.2); WHITE BLOOD COUNT 30.7 TH/MM3 (4.0-11.0)
[2016-10-16 11:05] LABS: HEMO FLAGS AUTO DIFF
[2016-10-16 11:31] LABS: BICARBONATE 33.4 MEQ/L (21.0-32.0); CALCIUM-PROTEIN CORRECTED 8.3 MG/DL (8.5-10.1); POTASSIUM 3.4 MEQ/L (3.5-5.1); TOTAL BILIRUBIN ADULT 0.8 MG/DL (0.2-1.0)
[2016-10-16 11:37] LABS: BANDS 5 % (0-6); EOSINOPHILS 1 % (0-4); NEUTROPHIL # MANUAL DIFF 28.2 TH/MM3 (1.8-7.7); POLYS (SEG NEUTROPHILS) 87 % (16-70); WBC DIFF SAMPLE 100
[2016-10-16 11:38] LABS: PLATELET ESTIMATE SMEAR NORMAL (NORMAL); PLATELET MORPHOLOGY NORMAL (NORMAL); SCAN/DIFF FINAL DIFF MANUAL
--- NOTE | 2016-10-16 15:37 | HHI.IDPN ---
Subjective Subjective Remarks low grade temps co R sided abdominal pain denies SOB Had 2 BMs today Antibiotics cefepime flagyl Allergies: Coded Allergies: Penicillin (Verified Allergy, Severe, SWELLING, 09/11/16) has tolerated Cephalosporins in previous admissions *MDRO Multi-Drug Resistant Organism (Verified Adverse Reaction, Unknown, ) Hx MRSA Sputum 2006, Wounds 2003 MRSA PCR Screen negative 11/25/14 & 09/10/15. Cleared per Infection Control. Patient does not require isolation for hx of MRSA prior to 09/10/15. Objective . Vital Signs Date Time Temp Pulse Resp B/P Pulse Ox O2 Delivery O2 Flow Rate FiO2 10/16/16 12:00 99.0 101 18 108/58 93 10/16/16 08:45 92 Nasal Cannula 3.00 10/16/16 08:00 98.5 96 18 113/61 92 10/16/16 07:15 Nasal Cannula 3.00 10/16/16 04:00 97.3 80 20 146/87 98 10/16/16 00:56 91 Nasal Cannula 3.00 10/16/16 00:00 98.0 68 20 169/87 94 10/15/16 20:20 Nasal Cannula 2.00 10/15/16 20:00 86 10/15/16 20:00 98.4 84 20 120/69 92 10/15/16 19:36 92 Nasal Cannula 3.00 10/15/16 16:00 98.5 82 18 122/64 92 10/15/16 10/15/16 10/16/16 15:00 23:00 07:00 Intake Total 840 ml 220 ml 580 ml Output Total 625 ml 650 ml 200 ml Balance 215 ml -430 ml 380 ml Intake Oral 840 ml 220 ml 580 ml Output Urine Total 625 ml 650 ml 200 ml # Bowel Movements 0 0 2 . Laboratory Tests Test 10/15/16 10/16/16 10/16/16 05:57 05:31 10:50 White Blood Count 11.0 TH/MM3 29.9 TH/MM3 30.7 TH/MM3 Red Blood Count 4.21 MIL/MM3 4.46 MIL/MM3 4.23 MIL/MM3 Hemoglobin 12.4 GM/DL 12.8 GM/DL 12.3 GM/DL Hematocrit 37.8 % 39.9 % 37.6 % Mean Corpuscular Volume 89.9 FL 89.6 FL 89.1 FL Mean Corpuscular Hemoglobin 29.5 PG 28.8 PG 29.1 PG Mean Corpuscular Hemoglobin 32.8 % 32.2 % 32.6 % Concent Red Cell Distribution Width 17.6 % 17.2 % 17.8 % Platelet Count 197 TH/MM3 275 TH/MM3 249 TH/MM3 Mean Platelet Volume 8.1 FL 8.2 FL 8.2 FL Neutrophils (%) (Auto) 84.7 % 84.8 % 89.5 % Lymphocytes (%) (Auto) 9.8 % 8.7 % 5.8 % Monocytes (%) (Auto) 4.5 % 5.9 % 4.3 % Eosinophils (%) (Auto) 0.0 % 0.3 % 0.2 % Basophils (%) (Auto) 1.0 % 0.3 % 0.2 % Neutrophils # (Auto) 9.3 TH/MM3 25.3 TH/MM3 27.5 TH/MM3 Lymphocytes # (Auto) 1.1 TH/MM3 2.6 TH/MM3 1.8 TH/MM3 Monocytes # (Auto) 0.5 TH/MM3 1.7 TH/MM3 1.3 TH/MM3 Eosinophils # (Auto) 0.0 TH/MM3 0.1 TH/MM3 0.0 TH/MM3 Basophils # (Auto) 0.1 TH/MM3 0.1 TH/MM3 0.1 TH/MM3 CBC Comment DIFF FINAL AUTO DIFF AUTO DIFF Differential Comment FINAL DIFF MANUAL Differential Total Cells 100 Counted Neutrophils % (Manual) 87 % Band Neutrophils % 5 % Lymphocytes % 4 % Monocytes % 3 % Eosinophils % 1 % Neutrophils # (Manual) 28.2 TH/MM3 Platelet Estimate NORMAL Platelet Morphology Comment NORMAL Red Cell Morphology Comment NORMAL Laboratory Tests Test 10/14/16 10/15/16 10/16/16 10/16/16 21:46 05:57 05:31 10:50 Lactic Acid Level 2.3 mmol/L 1.7 mmol/L Sodium Level 137 MEQ/L 137 MEQ/L 136 MEQ/L Potassium Level 3.9 MEQ/L 3.0 MEQ/L 3.4 MEQ/L Chloride Level 100 MEQ/L 95 MEQ/L 95 MEQ/L Carbon Dioxide Level 30.2 MEQ/L 33.8 MEQ/L 33.4 MEQ/L Anion Gap 7 MEQ/L 8 MEQ/L 8 MEQ/L Blood Urea Nitrogen 14 MG/DL 12 MG/DL 9 MG/DL Creatinine 0.29 MG/DL 0.31 MG/DL 0.27 MG/DL Estimat Glomerular Filtration 319 ML/MIN 295 ML/MIN 347 ML/MIN Rate Random Glucose 161 MG/DL 36 MG/DL 84 MG/DL Calcium Level 7.3 MG/DL 7.8 MG/DL 7.4 MG/DL Protein Corrected Calcium 8.2 MG/DL 8.3 MG/DL Total Protein 5.5 GM/DL 5.4 GM/DL Total Bilirubin 0.8 MG/DL Aspartate Amino Transf 17 U/L (AST/SGOT) Alanine Aminotransferase 22 U/L (ALT/SGPT) Alkaline Phosphatase 89 U/L Albumin 2.2 GM/DL Microbiology Date/Time Procedure Status Source Growth 10/14/16 12:08 Aerobic Blood Culture - Preliminary Resulted Blood Peripheral NO GROWTH IN 2 DAYS 10/14/16 12:08 Anaerobic Blood Culture - Preliminary Resulted Blood Peripheral NO GROWTH IN 2 DAYS 10/14/16 14:00 Aerobic Blood Culture - Final Complete Blood Peripheral Staph Sp Coagulase Negative 10/14/16 14:00 Anaerobic Blood Culture - Final Complete Staphylococcus Epidermidis Staph Sp Coagulase Negative 10/14/16 16:15 Gram Stain - Final Complete Sputum Expectorated Sputum 10/14/16 16:15 Sputum Culture - Final Complete Sputum Expectorated Sputum HEAVY GROWTH NORMAL RESPIRATORY DEVYN Imaging Last Impressions Chest X-Ray 10/14/16 1205 Signed Impressions: Service Date/Time: September 12:22 - CONCLUSION: 1. Right basilar patchiness consistent with atelectasis and/or pneumonia. Clinical correlation is recommended. 2. Upper lobe emphysematous changes bilaterally. Jostin Crow MD CT Angiography 10/14/16 1205 Signed Impressions: Service Date/Time: September 13:05 - CONCLUSION: 1. No evidence of pulmonary embolism. 2. Scattered nodular infiltrates bilaterally consistent with possible developing pneumonia. Clinical correlation is recommended. 3. Stable severe emphysematous changes and scattered fibrotic scarring bilaterally. 4. Small bilateral pleural effusions with adjacent compressive atelectasis. 5. Minimally prominent prevascular, AP window, pretracheal, right paratracheal and subcarinal mediastinal lymphadenopathy which is nonspecific. 6. Coronary artery calcifications. 7. Cholelithiasis. Jostin Crow MD Abdomen/Pelvis CT 10/14/16 0000 Signed Impressions: Service Date/Time: September 13:09 - CONCLUSION: 1. Calcifications in the pancreas from chronic pancreatitis without evidence for acute pancreatitis. 2. Small right pleural effusion and bibasilar atelectasis and/or infiltrate. 3. Cholelithiasis. 4. Fecal impaction. Anthony Baird MD Physical Exam CONSTITUTIONAL/GENERAL: This is an adequately nourished patient, in no apparent distress. TUBES/LINES/DRAINS: SKIN: No jaundice, rashes, or lesions. Ecchymoses on upper extremities. No wounds seen anteriorly. Skin temperature appropriate. Not diaphoretic. HEAD: Atraumatic. Normocephalic. EYES: Pupils equal and round and reactive. Extraocular motions intact. No scleral icterus. No injection or drainage. Fundi not examined. ENT:Moist mucosae. POor dentition CARDIOVASCULAR: Regular rate and rhythm without murmurs, gallops, or rubs. No JVD. Peripheral pulses symmetric. RESPIRATORY/CHEST: Symmetric, unlabored respirations. Clear to auscultation. Breath sounds equal bilaterally. No wheezes, rales, or rhonchi. GASTROINTESTINAL: Abdomen soft, + mildly tender to deep palpation RLQ , nondistended. Well healed med laparotomy incision No hepato-splenomegaly, or palpable masses. No guarding. Bowel sounds present. GENITOURINARY: Without palpable bladder distension. MUSCULOSKELETAL: Extremities without clubbing, cyanosis, or edema. NEUROLOGICAL: Awake and alert. Motor and sensory grossly within normal limits. Follows commands. Normal speech. Moves all extremities. PSYCHIATRIC: No obvious anxiety/depression. no apparent hallucinations or other psychotic thought process. Assessment & Plan Remarks RLL PNA staph epi bacteremia, 2 morphologies - doubt clin significance Abdominsl pain - CT A/P negative Worsening leukocytosis ? source Chronic pancreatitis with calcifications CHolelithiasiss, clinically asymptomatic - dc flagyl, cefepime - start CFTX, azithro - monitor WBC - monitor clinically - chk leg/pneumococcus Bibi Mckay MD Oct 16, 2016 15:37
[2016-10-16] MEDS ORDERED: AZITHROMYCIN 250 MG TAB PO ONE (16:00)
[2016-10-16] MEDS: cefTRIAXone INJ 2,000 MG in SODIUM CHLORIDE 0.9% INJ 100 ML IV SCH (18:02)
[2016-10-16] MEDS: hydrOXYzine HCL 25 MG TAB PO PRN (21:45)
[2016-10-17] VITALS (8 sets, daily range): BP systolic 92–125; BP diastolic 54–70; PULSE 87–102; RESP 16–20; TEMP 97.8–98.7; O2SAT 88–93
[2016-10-17] MEDS: DEXTROSE 50% IN WATER 50 ML VIAL(D50) IV PUSH PRN ×2 (05:34→05:45)
[2016-10-17] MEDS: INSULIN ASPART SUPPLEMENTAL SCALE SQ SCH ×4 (05:57→20:59)
[2016-10-17 07:10] LABS: AUTOMATED NEUTROPHIL # 19.1 TH/MM3 (1.8-7.7); BASOPHIL % 0.2 % (0.0-2.0); EOSINOPHIL % 0.1 % (0.0-4.0); HEMO FLAGS DIFF FINAL; LYMPH % 6.4 % (9.0-44.0); LYMPHOCYTE # 1.4 TH/MM3 (1.0-4.8); MEAN CELL VOLUME 89.8 FL (80.0-100.0); MEAN CORPUSCULAR HEMOGLOBIN 29.5 PG (27.0-34.0); MEAN CORPUSCULAR HGB CONC 32.8 % (32.0-36.0); NEUT % 87.3 % (16.0-70.0); PLATELET COUNT 165 TH/MM3 (150-450); RED BLOOD COUNT 4.67 MIL/MM3 (4.50-5.90); RED CELL DISTRIBUTION WIDTH 17.9 % (11.6-17.2); WHITE BLOOD COUNT 21.9 TH/MM3 (4.0-11.0)
[2016-10-17] MEDS: RESP: ALBUTEROL 2.5 MG/IPRATROPIUM 0.5 MG NEB (SCH) INH ×3 (07:21→21:06)
[2016-10-17] MEDS: RESP: BUDESONIDE 0.5 MG/2 ML NEB NEB SCH ×2 (07:21→21:06)
[2016-10-17 07:25] LABS: ALT (GPT) 23 U/L (12-78); ANION GAP 10 MEQ/L (5-15); AST (GOT) 20 U/L (15-37); BICARBONATE 31.7 MEQ/L (21.0-32.0); CHLORIDE 95 MEQ/L (98-107); GLOMERULAR FILTRATION RATE 234 ML/MIN (>89); POTASSIUM 3.6 MEQ/L (3.5-5.1); SODIUM (NA) 137 MEQ/L (136-145)
[2016-10-17 07:27] LABS: ALKALINE PHOSPHATASE 93 U/L (45-117); TOTAL BILIRUBIN ADULT 0.6 MG/DL (0.2-1.0)
[2016-10-17 07:28] LABS: BLOOD UREA NITROGEN 11 MG/DL (7-18)
[2016-10-17] MEDS: INSULIN DETEMIR 100 UNITS/ML VIAL SQ SCH ×2 (09:00→20:55)
--- NOTE | 2016-10-17 09:02 | HHI.FPPN ---
Subjective Remarks Pt seen and examined this morning. No acute events overnight. BP range 90-120s/ 50-70s. O2 saturations 91-93% on 3L NC. Pt reports that his breathing is stable. He denies chest pain, calf pain. He currently denies abdominal pain, overnight he experienced right sided flank pain. He had similar pain the night before but this pain was not as severe. Pain is worse after coughing, no change with eating, drinking, having a bowel movement. He denies diarrhea. Objective Vitals Vital Signs Date Time Temp Pulse Resp B/P Pulse Ox O2 Delivery O2 Flow Rate FiO2 10/17/16 07:58 97.8 87 16 93/54 93 10/17/16 07:21 93 Nasal Cannula 2.00 10/17/16 04:00 98.6 98 20 125/70 93 10/17/16 00:00 98.2 92 20 93/58 93 10/16/16 20:30 Nasal Cannula 3.00 10/16/16 20:00 98.2 99 20 99/60 91 10/16/16 20:00 96 10/16/16 16:00 98.6 104 18 128/71 93 10/16/16 12:00 99.0 101 18 108/58 93 I/O 10/16/16 10/16/16 10/16/16 10/17/16 10/17/16 10/17/16 07:00 15:00 23:00 07:00 15:00 23:00 Intake Total 580 ml 210 ml 240 ml 340 ml Output Total 200 ml 550 ml 650 ml Balance 380 ml 210 ml -310 ml -310 ml Intake Oral 580 ml 240 ml 340 ml IV Total 210 ml Output Urine Total 200 ml 550 ml 650 ml # Bowel Movements 2 Result Diagram: 10/17/1663010/17/1631 Objective Remarks GENERAL: 61 y/o M sitting up in bed in no acute distress. SKIN: Cool and dry. No rashes. Bilateral lower extremities with chronic venous stasis changes. Both finger nails and toenails significantly hypertrophic and thickened with yellowing. CARDIOVASCULAR: Regular rate and rhythm without murmurs, gallops, or rubs. Distant heart sounds. Chest with 4cm incision scar. RESPIRATORY: Shallow air movement during exam. Fine crackles at BL bases, R>L. no increased WOB. Oxygen saturation 92% on 3L. GASTROINTESTINAL: Abdomen soft, non-tender, nondistended with +BS. Midline incision CDI s/p exploratory laparotomy, well healing. No masses appreciated. MUSCULOSKELETAL: No cyanosis or edema. No calf tenderness BL. NEUROLOGICAL: AAOx3. Normal speech with proper interaction with examiners. A/P Assessment and Plan Mr. Garrison is a 61 y/o M with a PMHx of COPD, DM, HTN, and currently with DVT presenting with respiratory distress secondary to hospital acquired vs community acquired pneumonia. Discharge Planning Pending clinical improvement and ID recommendations. WDW: Dr. Manzo Problem List: (1) Hospital-acquired pneumonia Status: Acute Plan: Admitted with hospital acquired pneumonia, at time of admission met severe sepsis criteria with tachycardia to 103, WBC of 17, and lactic acid of 2.4. Infectious disease consulted, appreciate recommendations See medications below Medications: -Azithromycin 250mg po (10/17- ) -Azithromycin 500mg po x1, 10/16 -Ceftriaxone 2,000mg IV Q24H (10/16- ) Imaging: Chest x-ray: Right basilar patchiness consistent with atelectasis/pneumonia. Upper lobe emphysematous changes bilaterally. CTA: No evidence of pulmonary embolism. Scattered nodular infiltrates bilaterally consistent with possible developing pneumonia. Stable severe emphysematous changes and scattered fibrotic scarring bilaterally. Small bilateral pleural effusions with adjacent compressive atelectasis. Minimally prominent prevascular, AP window, pretracheal, right paratracheal, and subcarinal mediastinal lymphadenopathy which is nonspecific. Coronary artery calcifications. Cholelithiasis. CT abdomen and pelvis: Calcifications in the pancreas from chronic pancreatitis without evidence for acute pancreatitis. Small right pleural effusion and bibasilar atelectasis/infiltrate. Cholelithiasis. Fecal impaction. (2) Sepsis Status: Acute Plan: Patient with recent hospitalization admitted for hospital-acquired pneumonia Please see plan as above (3) Chronic obstructive pulmonary disease Status: Acute Plan: Patient with history of chronic obstructive pulmonary disease secondary to extensive smoking history. Imaging as above Respiratory CPT Respiratory physiotherapy/Acapella Incentive spirometry Smoking cessation counseling Medications: Methylprednisolone 125 mg given in ER DuoNeb every 6 hours scheduled Albuterol every 4 hours when necessary dyspnea DuoNeb every 4 hours when necessary shortness of breath Pulmicort twice a day Tessalon 200mg Q8H PRN for cough Antibiotics as above (4) DVT (deep venous thrombosis) Status: Acute Plan: Patient found to have bilateral DVT and previous hospitalization currently on Eliquis. Patient was found to be thrombocytopenic likely due to DVTs on prior hospitalization. Bilateral lower external ultrasound 10/05: DVT bilaterally CBC: Platelets stable Medications: Eliquis 5mg BID (5) Atrial fibrillation with RVR Status: Chronic Plan: Patient found to have atrial fibrillation with RVR during prior hospitalization. Currently in sinus rhythm per EKG. EKG: Sinus tachycardia per medical team read. Telemetry Consider rate control with metoprolol if patient becomes tachycardic or goes back into RVR - Continue Eliquis for anticoagulation (6) Diabetes mellitus, type 2 Status: Chronic Plan: Patient with type 2 diabetes. His home regimen includes Levemir 8 units twice a day with SSI. Decreased Levemir 4 units twice a day due to low blood glucose Sliding scale insulin per protocol (7) HTN (hypertension) Status: Acute Plan: Patient with chronic hypertension Hold home lisinopril due to hypotension (8) GERD (gastroesophageal reflux disease) Status: Chronic Plan: Patient with reported acid reflux disease Protonix 40 mg daily (9) Nutrition, metabolism, and development symptoms Status: Acute Plan: Fluids: Fluids stopped as patient tolerating PO fluids Electrolytes: WNL. Continue to monitor. Diet: Diabetic diet as tolerated DVT prophylaxis: Currently on Eliquis daily Prophylaxis: Protonix Pain control: [place] 5mg for pain 1-5, [place] 10mg for pain 6-10 as he is s/p exploratory laparotomy Continued home medications: Guaifenesin, Claritin, Flonase Problem Qualifiers (1) Sepsis: Qualified Code: A41.9 - Sepsis, due to unspecified organism Gayle Szymanski MD R2 Oct 17, 2016 09:02 pain 1-5, [place] 10mg for pain 6-10 as he is s/p exploratory laparotomy Continued home medications: Guaifenesin, Claritin, Flonase Problem Qualifiers (1) Sepsis: Qualified Code: A41.9 - Sepsis, due to unspecified organism Gayle Szymanski MD R2 Oct 17, 2016 09:02
[2016-10-17] MEDS: guaiFENesin E.R. 600 MG TAB PO SCH ×2 (09:41→20:50)
[2016-10-17] MEDS: APIXABAN 5 MG TABLET PO SCH ×2 (09:41→20:50)
[2016-10-17] MEDS: PANTOPRAZOLE SOD 40 MG DELAYED RELEASE TAB PO SCH (09:41)
[2016-10-17] MEDS: AZITHROMYCIN 250 MG TAB PO SCH (09:41)
[2016-10-17] MEDS: LORATADINE 10 MG TAB PO SCH (09:41)
[2016-10-17] MEDS: FLUTICASONE PROPIONATE 50 MCG/ACT 16 GM NASAL SPRAY NASAL SCH ×2 (09:42→20:59)
[2016-10-17] MEDS: ACETAMINOPHEN/HYDROcodone 325 MG/10 MG TAB PO PRN ×2 (13:28→20:51)
[2016-10-17] MEDS: cefTRIAXone INJ 2,000 MG in SODIUM CHLORIDE 0.9% INJ 100 ML IV SCH (16:32)
[2016-10-17] MEDS: BENZONATATE 100 MG CAP PO PRN (20:50)
[2016-10-17] MEDS: SODIUM CHLORIDE 0.9% FLUSH 10 ML FLUSH IVF PRN (20:57)
[2016-10-18] VITALS (10 sets, daily range): BP systolic 95–114; BP diastolic 59–66; PULSE 89–103; RESP 16–18; TEMP 98–98.8; O2SAT 86–95
[2016-10-18] MEDS: ACETAMINOPHEN/HYDROcodone 325 MG/10 MG TAB PO PRN ×3 (03:18→22:00)
[2016-10-18] MEDS: RESP: ALBUTEROL 2.5 MG/IPRATROPIUM 0.5 MG NEB (SCH) INH ×2 (05:44→09:28)
[2016-10-18] MEDS: INSULIN ASPART SUPPLEMENTAL SCALE SQ SCH ×4 (05:44→22:02)
--- NOTE | 2016-10-18 08:08 | HHI.FPPN ---
Subjective Remarks Patient is doing well this morning. Continues to require oxygen 3-5 L nasal cannula. No complaints this morning. Denies abdominal pain, headache, chest pain. He isn't sure whether he is short of breath. Patient states he has not had a bowel movement in 3-4 days, however patient states "this is normal." He is passing gas. (Omari Mcarthur MD R2) Objective Vitals Vital Signs Date Time Temp Pulse Resp B/P Pulse Ox O2 Delivery O2 Flow Rate FiO2 10/18/16 04:00 98.2 89 18 112/61 90 10/18/16 00:00 98.8 91 18 102/59 86 10/17/16 21:09 Nasal Cannula 3.00 10/17/16 20:50 Nasal Cannula 5.00 10/17/16 20:00 98.2 97 18 92/58 88 10/17/16 20:00 97 10/17/16 15:29 98.4 99 16 112/62 92 10/17/16 11:53 98.7 102 16 99/65 91 10/17/16 08:10 92 I/O 10/17/16 10/17/16 10/17/16 10/18/16 10/18/16 10/18/16 07:00 15:00 23:00 07:00 15:00 23:00 Intake Total 340 ml 720 ml 240 ml 480 ml Output Total 650 ml 500 ml 500 ml 400 ml Balance -310 ml 220 ml -260 ml 80 ml Intake Oral 340 ml 720 ml 240 ml 480 ml IV Total 0 ml Output Urine Total 650 ml 500 ml 500 ml 400 ml # Voids 2 # Bowel Movements 0 0 0 (Omari Mcarthur MD R2) Result Diagram: 10/17/1663010/17/16630 Objective Remarks GENERAL: 61 y/o M sitting up in bed in no acute distress. SKIN: Cool and dry. No rashes. Bilateral lower extremities with chronic venous stasis changes. Both finger nails and toenails significantly hypertrophic and thickened with yellowing. CARDIOVASCULAR: Regular rate and rhythm without murmurs, gallops, or rubs. Distant heart sounds. Chest with 4cm incision scar. RESPIRATORY: Shallow air movement during exam. Fine crackles at BL bases, R>L. no increased WOB. Oxygen saturation 86-92% on 3L. GASTROINTESTINAL: Abdomen soft, non-tender, nondistended with +BS. Midline incision CDI s/p exploratory laparotomy, well healing. No masses appreciated. MUSCULOSKELETAL: No cyanosis or edema. No calf tenderness BL. NEUROLOGICAL: AAOx3. Normal speech with proper interaction with examiners. ( Omari Mcarthur MD R2) A/P Assessment and Plan Mr. Garrison is a 61 y/o M with a PMHx of COPD, DM, HTN, and currently with DVT presenting with respiratory distress secondary to hospital acquired pneumonia. Discharge Planning Pending clinical improvement and ID recommendations. Currently PT recommends PT at rehabilitation (Omari Mcarthur MD R2) Attending Attestation Pt. examined and case discussed with resident physicians I have read the above note and agree with the assessment/plan as discussed with me I was involved in all medical decision making for this patient Jasbir Manzo MD (Jasbir Manzo MD) Problem List: (1) Hospital-acquired pneumonia Status: Acute Plan: Admitted with hospital acquired pneumonia, at time of admission met severe sepsis criteria with tachycardia to 103, WBC of 17, and lactic acid of 2.4. Infectious disease consulted, appreciate recommendations Urine Legionella and pneumococcal antigen ordered Blood cultures positive for coag-negative staph; infectious disease state likely contaminant See medications below Medications: -Azithromycin 250mg po (10/17- ) -Azithromycin 500mg po x1, 10/16 -Ceftriaxone 2,000mg IV Q24H (10/16- ) Imaging: Chest x-ray: Right basilar patchiness consistent with atelectasis/pneumonia. Upper lobe emphysematous changes bilaterally. CTA: No evidence of pulmonary embolism. Scattered nodular infiltrates bilaterally consistent with possible developing pneumonia. Stable severe emphysematous changes and scattered fibrotic scarring bilaterally. Small bilateral pleural effusions with adjacent compressive atelectasis. Minimally prominent prevascular, AP window, pretracheal, right paratracheal, and subcarinal mediastinal lymphadenopathy which is nonspecific. Coronary artery calcifications. Cholelithiasis. CT abdomen and pelvis: Calcifications in the pancreas from chronic pancreatitis without evidence for acute pancreatitis. Small right pleural effusion and bibasilar atelectasis/infiltrate. Cholelithiasis. Fecal impaction. (2) Sepsis Status: Acute Plan: Patient with recent hospitalization admitted for hospital-acquired pneumonia Please see plan as above (3) Chronic obstructive pulmonary disease Status: Acute Plan: Patient with history of chronic obstructive pulmonary disease secondary to extensive smoking history. Imaging as above Respiratory CPT Respiratory physiotherapy/A[place] Incentive spirometry Smoking cessation counseling; patient states he intends to quit permanently Medications: DuoNeb every 6 hours scheduled Albuterol every 4 hours when necessary dyspnea DuoNeb every 4 hours when necessary shortness of breath Pulmicort twice a day Tessalon 200mg Q8H PRN for cough Antibiotics as above (4) DVT (deep venous thrombosis) Status: Acute Plan: Patient found to have bilateral DVT and previous hospitalization currently on Eliquis. Patient was found to be thrombocytopenic likely due to DVTs on prior hospitalization. Bilateral lower external ultrasound 10/05: DVT bilaterally CBC: Platelets stable Medications: Eliquis 5mg BID (5) Atrial fibrillation with RVR Status: Chronic Plan: Patient found to have atrial fibrillation with RVR during prior hospitalization. Currently in sinus rhythm per EKG. EKG: Sinus tachycardia per medical team read. Telemetry Consider rate control with metoprolol if patient becomes tachycardic or goes back into RVR - Continue Eliquis for anticoagulation (6) Diabetes mellitus, type 2 Status: Chronic Plan: Patient with type 2 diabetes. His home regimen includes Levemir 8 units twice a day with SSI. Decreased Levemir 4 units twice a day due to low blood glucose Sliding scale insulin per protocol (7) HTN (hypertension) Status: Acute Plan: Patient with chronic hypertension Hold home lisinopril due to hypotension (8) GERD (gastroesophageal reflux disease) Status: Chronic Plan: Patient with reported acid reflux disease Protonix 40 mg daily (9) Nutrition, metabolism, and development symptoms Status: Acute Plan: Fluids: Fluids stopped as patient tolerating PO fluids Electrolytes: WNL. Continue to monitor. Diet: Diabetic diet as tolerated DVT prophylaxis: Currently on Eliquis 5 mg daily Prophylaxis: Protonix Pain control: [place] 5mg for pain 1-5, [place] 10mg for pain 6-10 as he is s/p exploratory laparotomy Continued home medications: Guaifenesin, Claritin, Flonase (Omari Mcarthur MD R2) Problem Qualifiers (1) Sepsis: Qualified Code: A41.9 - Sepsis, due to unspecified organism Omari Mcarthur MD R2 Oct 18, 2016 08:08 Jasbir Manzo MD Oct 18, 2016 18:39
[2016-10-18] MEDS: FLUTICASONE PROPIONATE 50 MCG/ACT 16 GM NASAL SPRAY NASAL SCH ×2 (08:53→21:59)
[2016-10-18] MEDS: PANTOPRAZOLE SOD 40 MG DELAYED RELEASE TAB PO SCH (08:54)
[2016-10-18] MEDS: SODIUM CHLORIDE 0.9% FLUSH 10 ML FLUSH IVF PRN (08:54)
[2016-10-18] MEDS: AZITHROMYCIN 250 MG TAB PO SCH (08:54)
[2016-10-18] MEDS: guaiFENesin E.R. 600 MG TAB PO SCH ×2 (08:54→22:00)
[2016-10-18] MEDS: INSULIN DETEMIR 100 UNITS/ML VIAL SQ SCH ×2 (08:54→22:01)
[2016-10-18] MEDS: LORATADINE 10 MG TAB PO SCH (08:54)
[2016-10-18] MEDS: APIXABAN 5 MG TABLET PO SCH ×2 (08:54→22:01)
[2016-10-18] MEDS: RESP: BUDESONIDE 0.5 MG/2 ML NEB NEB SCH ×2 (09:28→21:08)
[2016-10-18 09:32] LABS: AUTOMATED NEUTROPHIL # 15.1 TH/MM3 (1.8-7.7); BASOPHIL # 0.1 TH/MM3 (0-0.2); BASOPHIL % 0.4 % (0.0-2.0); EOSINOPHIL # 0.1 TH/MM3 (0-0.4); EOSINOPHIL % 0.5 % (0.0-4.0); HEMATOCRIT 35.8 % (39.0-51.0); HEMO FLAGS DIFF FINAL; LYMPHOCYTE # 2.2 TH/MM3 (1.0-4.8); MEAN CELL VOLUME 90.4 FL (80.0-100.0); MEAN CORPUSCULAR HEMOGLOBIN 29.8 PG (27.0-34.0); MEAN CORPUSCULAR HGB CONC 32.9 % (32.0-36.0); MONO % 6.2 % (0.0-8.0); NEUT % 80.9 % (16.0-70.0); PLATELET COUNT 325 TH/MM3 (150-450); RED BLOOD COUNT 3.96 MIL/MM3 (4.50-5.90); RED CELL DISTRIBUTION WIDTH 17.5 % (11.6-17.2); WHITE BLOOD COUNT 18.6 TH/MM3 (4.0-11.0)
[2016-10-18 10:14] LABS: ALKALINE PHOSPHATASE 90 U/L (45-117); ALT (GPT) 17 U/L (12-78); ANION GAP 5 MEQ/L (5-15); AST (GOT) 9 U/L (15-37); BICARBONATE 38.8 MEQ/L (21.0-32.0); BLOOD UREA NITROGEN 9 MG/DL (7-18); CHLORIDE 94 MEQ/L (98-107); GLOMERULAR FILTRATION RATE 397 ML/MIN (>89); POTASSIUM 3.8 MEQ/L (3.5-5.1); SODIUM (NA) 138 MEQ/L (136-145); TOTAL BILIRUBIN ADULT 0.5 MG/DL (0.2-1.0)
--- NOTE | 2016-10-18 13:35 | HHI.IDPN ---
Subjective Subjective Remarks doing better + productive cough with yellow sputum mild abdominal pain + gas denies diarrhea afebrile wbc went down to 18K Antibiotics cefepime flagyl Allergies: Coded Allergies: Penicillin (Verified Allergy, Severe, SWELLING, 09/11/16) has tolerated Cephalosporins in previous admissions *MDRO Multi-Drug Resistant Organism (Verified Adverse Reaction, Unknown, ) Hx MRSA Sputum 2006, Wounds 2003 MRSA PCR Screen negative 11/25/14 & 09/10/15. Cleared per Infection Control. Patient does not require isolation for hx of MRSA prior to 09/10/15. Objective . Vital Signs Date Time Temp Pulse Resp B/P Pulse Ox O2 Delivery O2 Flow Rate FiO2 10/18/16 09:31 93 Nasal Cannula 3.00 10/18/16 08:20 Nasal Cannula 3.00 10/18/16 08:20 89 10/18/16 04:00 98.2 89 18 112/61 90 10/18/16 00:00 98.8 91 18 102/59 86 10/17/16 21:09 Nasal Cannula 3.00 10/17/16 20:50 Nasal Cannula 5.00 10/17/16 20:00 98.2 97 18 92/58 88 10/17/16 20:00 97 10/17/16 15:29 98.4 99 16 112/62 92 10/17/16 10/17/16 10/18/16 15:00 23:00 07:00 Intake Total 720 ml 240 ml 480 ml Output Total 500 ml 500 ml 400 ml Balance 220 ml -260 ml 80 ml Intake Oral 720 ml 240 ml 480 ml IV Total 0 ml Output Urine Total 500 ml 500 ml 400 ml # Voids 2 # Bowel Movements 0 0 0 . Laboratory Tests Test 10/17/16 10/18/16 06:31 09:00 White Blood Count 21.9 TH/MM3 18.6 TH/MM3 Red Blood Count 4.67 MIL/MM3 3.96 MIL/MM3 Hemoglobin 13.8 GM/DL 11.8 GM/DL Hematocrit 42.0 % 35.8 % Mean Corpuscular Volume 89.8 FL 90.4 FL Mean Corpuscular Hemoglobin 29.5 PG 29.8 PG Mean Corpuscular Hemoglobin 32.8 % 32.9 % Concent Red Cell Distribution Width 17.9 % 17.5 % Platelet Count 165 TH/MM3 325 TH/MM3 Mean Platelet Volume 8.5 FL 8.5 FL Neutrophils (%) (Auto) 87.3 % 80.9 % Lymphocytes (%) (Auto) 6.4 % 12.0 % Monocytes (%) (Auto) 6.0 % 6.2 % Eosinophils (%) (Auto) 0.1 % 0.5 % Basophils (%) (Auto) 0.2 % 0.4 % Neutrophils # (Auto) 19.1 TH/MM3 15.1 TH/MM3 Lymphocytes # (Auto) 1.4 TH/MM3 2.2 TH/MM3 Monocytes # (Auto) 1.3 TH/MM3 1.1 TH/MM3 Eosinophils # (Auto) 0.0 TH/MM3 0.1 TH/MM3 Basophils # (Auto) 0.0 TH/MM3 0.1 TH/MM3 CBC Comment DIFF FINAL DIFF FINAL Differential Comment Hematology Comments Laboratory Tests Test 10/17/16 10/18/16 06:31 09:00 Sodium Level 137 MEQ/L 138 MEQ/L Potassium Level 3.6 MEQ/L 3.8 MEQ/L Chloride Level 95 MEQ/L 94 MEQ/L Carbon Dioxide Level 31.7 MEQ/L 38.8 MEQ/L Anion Gap 10 MEQ/L 5 MEQ/L Blood Urea Nitrogen 11 MG/DL 9 MG/DL Creatinine 0.38 MG/DL 0.24 MG/DL Estimat Glomerular Filtration 234 ML/MIN 397 ML/MIN Rate Random Glucose 93 MG/DL 91 MG/DL Calcium Level 7.8 MG/DL 7.5 MG/DL Total Bilirubin 0.6 MG/DL 0.5 MG/DL Aspartate Amino Transf 20 U/L 9 U/L (AST/SGOT) Alanine Aminotransferase 23 U/L 17 U/L (ALT/SGPT) Alkaline Phosphatase 93 U/L 90 U/L Total Protein 6.2 GM/DL 5.6 GM/DL Albumin 2.4 GM/DL 2.1 GM/DL Lipase 52 U/L Imaging Last Impressions Chest X-Ray 10/14/16 1205 Signed Impressions: Service Date/Time: September 12:22 - CONCLUSION: 1. Right basilar patchiness consistent with atelectasis and/or pneumonia. Clinical correlation is recommended. 2. Upper lobe emphysematous changes bilaterally. Jostin Crow MD CT Angiography 10/14/16 1205 Signed Impressions: Service Date/Time: September 13:05 - CONCLUSION: 1. No evidence of pulmonary embolism. 2. Scattered nodular infiltrates bilaterally consistent with possible developing pneumonia. Clinical correlation is recommended. 3. Stable severe emphysematous changes and scattered fibrotic scarring bilaterally. 4. Small bilateral pleural effusions with adjacent compressive atelectasis. 5. Minimally prominent prevascular, AP window, pretracheal, right paratracheal and subcarinal mediastinal lymphadenopathy which is nonspecific. 6. Coronary artery calcifications. 7. Cholelithiasis. Jostin Crow MD Abdomen/Pelvis CT 10/14/16 0000 Signed Impressions: Service Date/Time: September 13:09 - CONCLUSION: 1. Calcifications in the pancreas from chronic pancreatitis without evidence for acute pancreatitis. 2. Small right pleural effusion and bibasilar atelectasis and/or infiltrate. 3. Cholelithiasis. 4. Fecal impaction. Anthony Baird MD Physical Exam CONSTITUTIONAL/GENERAL: This is an adequately nourished patient, in no apparent distress. TUBES/LINES/DRAINS: SKIN: No jaundice, rashes, or lesions. HEAD: Atraumatic. Normocephalic. EYES: Pupils equal and round and reactive. Extraocular motions intact. No scleral icterus. No injection or drainage. Fundi not examined. ENT:Moist mucosae. POor dentition CARDIOVASCULAR: Regular rate and rhythm without murmurs, gallops, or rubs. No JVD. Peripheral pulses symmetric. RESPIRATORY/CHEST: Symmetric, unlabored respirations. Clear to auscultation. Breath sounds equal bilaterally. No wheezes, rales, or rhonchi. GASTROINTESTINAL: Abdomen soft, + minimally tender to deep palpation RLQ , nondistended. Well healed med laparotomy incision No hepato-splenomegaly, or palpable masses. No guarding. Bowel sounds present. GENITOURINARY: Without palpable bladder distension. MUSCULOSKELETAL: Extremities without clubbing, cyanosis, or edema. NEUROLOGICAL: Awake and alert. Motor and sensory grossly within normal limits. Follows commands. Normal speech. Moves all extremities. PSYCHIATRIC: No obvious anxiety/depression. no apparent hallucinations or other psychotic thought process. Assessment & Plan Remarks RLL PNA, sputum with nl resp kali - recently quit tob 3 mos ago staph epi bacteremia, 2 morphologies - doubt clin significance Abdominsl pain - CT A/P negative Worsening leukocytosis ? source Chronic pancreatitis with calcifications CHolelithiasiss, clinically asymptomatic -cont CFTX, azithro x 7 days total -can be switched to po if dc 'd before Rx completed - cont to monitor WBC - monitor clinically - chk leg/pneumococcus Bibi Mckay MD Oct 18, 2016 13:35
[2016-10-18] MEDS: RESP: ALBUTEROL 2.5 MG/IPRATROPIUM 0.5 MG NEB (PRN) INH (16:04)
[2016-10-18] MEDS: cefTRIAXone INJ 2,000 MG in SODIUM CHLORIDE 0.9% INJ 100 ML IV SCH (17:22)
[2016-10-19] VITALS (10 sets, daily range): BP systolic 98–128; BP diastolic 53–67; PULSE 86–100; RESP 16–20; TEMP 97.9–98.9; O2SAT 90–93
[2016-10-19] MEDS: RESP: ALBUTEROL 2.5 MG/IPRATROPIUM 0.5 MG NEB (PRN) INH (00:22)
[2016-10-19] MEDS: INSULIN ASPART SUPPLEMENTAL SCALE SQ SCH ×4 (06:09→20:41)
[2016-10-19] MEDS: RESP: BUDESONIDE 0.5 MG/2 ML NEB NEB SCH ×2 (07:47→19:36)
[2016-10-19 08:20] LABS: AUTOMATED NEUTROPHIL # 18.2 TH/MM3 (1.8-7.7); BASOPHIL # 0.2 TH/MM3 (0-0.2); BASOPHIL % 0.9 % (0.0-2.0); EOSINOPHIL # 0.1 TH/MM3 (0-0.4); EOSINOPHIL % 0.3 % (0.0-4.0); HEMATOCRIT 36.4 % (39.0-51.0); HEMO FLAGS DIFF FINAL; LYMPH % 8.8 % (9.0-44.0); LYMPHOCYTE # 1.9 TH/MM3 (1.0-4.8); MEAN CELL VOLUME 89.6 FL (80.0-100.0); MEAN CORPUSCULAR HEMOGLOBIN 29.3 PG (27.0-34.0); MEAN CORPUSCULAR HGB CONC 32.7 % (32.0-36.0); MONO % 6.4 % (0.0-8.0); NEUT % 83.6 % (16.0-70.0); PLATELET COUNT 259 TH/MM3 (150-450); RED BLOOD COUNT 4.06 MIL/MM3 (4.50-5.90); RED CELL DISTRIBUTION WIDTH 17.3 % (11.6-17.2); WHITE BLOOD COUNT 21.9 TH/MM3 (4.0-11.0)
[2016-10-19] MEDS: guaiFENesin E.R. 600 MG TAB PO SCH ×2 (08:36→20:39)
[2016-10-19] MEDS: PANTOPRAZOLE SOD 40 MG DELAYED RELEASE TAB PO SCH (08:36)
[2016-10-19] MEDS: APIXABAN 5 MG TABLET PO SCH ×2 (08:36→20:39)
[2016-10-19] MEDS: AZITHROMYCIN 250 MG TAB PO SCH (08:36)
[2016-10-19] MEDS: LORATADINE 10 MG TAB PO SCH (08:36)
[2016-10-19] MEDS: ACETAMINOPHEN/HYDROcodone 325 MG/10 MG TAB PO PRN ×2 (08:38→20:40)
[2016-10-19] MEDS: INSULIN DETEMIR 100 UNITS/ML VIAL SQ SCH ×2 (08:38→20:41)
[2016-10-19] MEDS: FLUTICASONE PROPIONATE 50 MCG/ACT 16 GM NASAL SPRAY NASAL SCH ×2 (08:38→20:36)
[2016-10-19 10:32] LABS: ALKALINE PHOSPHATASE 97 U/L (45-117); ALT (GPT) 16 U/L (12-78); ANION GAP 6 MEQ/L (5-15); AST (GOT) 10 U/L (15-37); BICARBONATE 37.7 MEQ/L (21.0-32.0); BLOOD UREA NITROGEN 8 MG/DL (7-18); CHLORIDE 94 MEQ/L (98-107); GLOMERULAR FILTRATION RATE 295 ML/MIN (>89); POTASSIUM 3.8 MEQ/L (3.5-5.1); SODIUM (NA) 138 MEQ/L (136-145); TOTAL BILIRUBIN ADULT 0.5 MG/DL (0.2-1.0)
--- NOTE | 2016-10-19 11:40 | HHI.FPPN ---
Subjective Remarks Pt seen and examined this morning. AFVSS. No acute events overnight. Pt endorses lower abdominal pain and constipation; reports he hasn't had a BM in several days. Tried some milk of magnesium this morning but hasn't felt any effects yet. Tolerating PO without nausea or vomiting. Denies CP, SOB, fever, chills. Endorses a mostly dry cough but occasional green sputum production. Ambulating with PT. (Nhung Rg MD) Objective Vitals Vital Signs Date Time Temp Pulse Resp B/P Pulse Ox O2 Delivery O2 Flow Rate FiO2 10/19/16 08:20 Nasal Cannula 3.00 10/19/16 08:20 93 10/19/16 08:00 98.1 94 20 128/65 10/19/16 07:47 93 Nasal Cannula 4.00 10/19/16 03:35 97.9 86 16 109/60 90 10/18/16 23:53 98.0 93 16 114/65 90 10/18/16 21:08 95 Nasal Cannula 4.00 10/18/16 21:00 Nasal Cannula 3.00 10/18/16 19:55 98.3 93 16 104/60 91 10/18/16 16:00 98.7 96 16 95/59 91 10/18/16 12:00 98.0 103 18 105/66 91 I/O 10/18/16 10/18/16 10/18/16 10/19/16 10/19/16 10/19/16 07:00 15:00 23:00 07:00 15:00 23:00 Intake Total 480 ml 720 ml 1080 ml 240 ml Output Total 400 ml 200 ml 600 ml 125 ml Balance 80 ml 520 ml 480 ml 115 ml Intake Oral 480 ml 720 ml 1080 ml 240 ml Output Urine Total 400 ml 200 ml 600 ml 125 ml # Bowel Movements 0 0 0 0 (Nhung Rg MD) Result Diagram: 10/19/16 0532 10/19/16 0933 Objective Remarks GENERAL: Normally nourished male laying comfortably in bed in no acute distress. SKIN: Warm and dry without rashes. CV: Distant heart sounds. RRR no m/r/g. 2+ pedal pulses. PULM: Poor respiratory effort with diminished breath sounds and bibasilar crackles, R>L. GI: Diminished bowel sounds. Soft, nondistended. Lower abdomen TTP without guarding or rebound. EXTREMITIES: Chronic venous stasis changes of lower extremities. Hypertrophic, thickened nails. No clubbing. No calf tenderness. NEURO: Awake and alert. (Nhung Rg MD) A/P Assessment and Plan 61 year old male with COPD, DM, HTN, and DVT admitted for hospital acquired pneumonia. Discharge Planning Unclear discharge timetable; pending clinical improvement and recommendations from ID. PT recommending rehab and patient already coming from [facility] so will be able to return when ready for D/C. (Nhung Rg MD) Attending Attestation Patient examined and case discussed with resident physicians I have read the above note and agree with the assessment/plan is discussed with me I was involved in all medical decision making for this patient Jasbir Manzo M.D. (Jasbir Manzo MD) Problem List: (1) Hospital-acquired pneumonia Status: Acute Plan: Admitted with hospital acquired pneumonia, at time of admission met severe sepsis criteria with tachycardia to 103, WBC of 17, and lactic acid of 2.4. Infectious disease consulted, appreciate recommendations Urine Legionella and pneumococcal antigen re-ordered Blood cultures positive for Staph epidermidis, likely contaminant Sputum culture with normal respiratory kail Active antibiotics: -Azithromycin 250mg po (10/17- ) -Azithromycin 500mg po x1, 10/16 -Ceftriaxone 2,000mg IV Q24H (10/16- ) Discontinued antibiotics: -Flagyl and Cefepime (10/14-10/16) -One dose of vanc in the ER on 10/14 Imaging: Chest x-ray 10/14/16: Right basilar patchiness consistent with atelectasis/ pneumonia. Upper lobe emphysematous changes bilaterally. CTA 10/14/16: No evidence of pulmonary embolism. Scattered nodular infiltrates bilaterally consistent with possible developing pneumonia. Stable severe emphysematous changes and scattered fibrotic scarring bilaterally. Small bilateral pleural effusions with adjacent compressive atelectasis. Minimally prominent prevascular, AP window, pretracheal, right paratracheal, and subcarinal mediastinal lymphadenopathy which is nonspecific. Coronary artery calcifications. Cholelithiasis. CT abdomen and pelvis 10/14/16: Calcifications in the pancreas from chronic pancreatitis without evidence for acute pancreatitis. Small right pleural effusion and bibasilar atelectasis/infiltrate. Cholelithiasis. Fecal impaction. (2) Sepsis Status: Acute Plan: Patient with recent hospitalization admitted for hospital-acquired pneumonia (see plans above). Continuing to have ongoing leukocytosis with WBC slightly up from yesterday at 21.9 with left shift. Will repeat CXR today. (3) DVT (deep venous thrombosis) Status: Acute Plan: Patient found to have bilateral DVT in previous hospitalization currently on Eliquis. (4) Chronic obstructive pulmonary disease Status: Chronic Plan: Patient with history of chronic obstructive pulmonary disease secondary to extensive smoking history. Currently being treated for hospital acquired PNA with plans as above. Respiratory CPT Respiratory physiotherapy/Acapella Incentive spirometry Smoking cessation counseling; patient states he intends to quit permanently Medications: DuoNeb every 6 hours scheduled Albuterol every 4 hours when necessary dyspnea DuoNeb every 4 hours when necessary shortness of breath Pulmicort twice a day Tessalon 200mg Q8H PRN for cough Antibiotics as above (5) Atrial fibrillation with RVR Status: Chronic Plan: Patient found to have atrial fibrillation with RVR during prior hospitalization. Currently in sinus rhythm per EKG. EKG: Sinus tachycardia per medical team read. Telemetry Consider rate control with metoprolol if patient becomes tachycardic or goes back into RVR - Continue Eliquis for anticoagulation (6) Diabetes mellitus, type 2 Status: Chronic Plan: Patient with type 2 diabetes. His home regimen includes Levemir 8 units twice a day with SSI. Decreased Levemir 4 units twice a day due to low blood glucose Sliding scale insulin per protocol (7) HTN (hypertension) Status: Acute Plan: Patient with chronic hypertension Holding home lisinopril in light of hypotension from sepsis but can resume likely tomorrow. (8) GERD (gastroesophageal reflux disease) Status: Chronic Plan: Continue Protonix 40 mg daily (9) Nutrition, metabolism, and development symptoms Status: Acute Plan: - Fluids: Tolerating PO - Electrolytes: WNL. Monitor and replete PRN - Nutrition: ADA - DVT prophylaxis: Eliquis Pain control: [place] 5mg for pain 1-5, [place] 10mg for pain 6-10 as he is s/p exploratory laparotomy dw Dr. Manzo (Nhung Rg MD) Problem Qualifiers (1) Sepsis: Qualified Code: A41.9 - Sepsis, due to unspecified organism Nhung Rg MD Oct 19, 2016 11:40 Jasbir Manzo MD Oct 19, 2016 16:19
--- NOTE | 2016-10-19 15:22 | RADRPT ---
EXAM DATE/TIME: 10/19/2016 13:49 [place] COMPARISON: CT PULMONARY ANGIOGRAM, October 14, 2016, 13:05. CHEST SINGLE AP, October 14, 2016, 12:22. CHEST PA & L AT, September 05, 2016, 13:24. INDICATIONS : Pneumonia. MEDICAL HISTORY : Pancreatitis. Chronic obstructive pulmonary disease. Diabetes mellitus type 2.High blood SURGICAL HISTORY : None. ENCOUNTER: Subsequent ACUITY: 4 - 6 days PAIN SCORE: 0/10 LOCATION: Bilateral chest FINDINGS: Frontal and lateral views of the chest demonstrate a normal-sized cardiac silhouette. There are inter stitial opacities bilaterally related to the patient's emphysema and there is stable opacity at the r ight lung apex. Nodule remains visualized in the left midlung zone. There are small bilateral pleural effusions, right greater than left. No pneumothorax is visualized. Bones and soft tissues demonstrat e no acute finding. There is severe calcification in the axillary arteries. CONCLUSION: 1. Small right and trace left pleural effusions, stable from the prior study. 2. Severe emphysema with stable parenchymal opacity at the right lung apex and nodule in the left mid lung zone. Gumaro Brown MD on October 19, 2016 at 15:17 Board Certified Radiologist. This report was verified electronically.
[2016-10-19] MEDS: cefTRIAXone INJ 2,000 MG in SODIUM CHLORIDE 0.9% INJ 100 ML IV SCH (16:01)
[2016-10-19] MEDS: DOCUSATE SODIUM 50 MG/SENNA 8.6 MG TAB PO SCH (20:39)
[2016-10-20] VITALS (10 sets, daily range): BP systolic 106–118; BP diastolic 58–72; PULSE 88–96; RESP 18–20; TEMP 97.8–98.7; O2SAT 90–95
[2016-10-20] MEDS: INSULIN ASPART SUPPLEMENTAL SCALE SQ SCH ×4 (05:24→20:58)
[2016-10-20 07:25] LABS: AUTOMATED NEUTROPHIL # 16.4 TH/MM3 (1.8-7.7); BASOPHIL # 0.1 TH/MM3 (0-0.2); BASOPHIL % 0.5 % (0.0-2.0); EOSINOPHIL # 0.1 TH/MM3 (0-0.4); EOSINOPHIL % 0.5 % (0.0-4.0); HEMATOCRIT 38.5 % (39.0-51.0); HEMO FLAGS DIFF FINAL; LYMPH % 11.3 % (9.0-44.0); LYMPHOCYTE # 2.2 TH/MM3 (1.0-4.8); MEAN CELL VOLUME 91.6 FL (80.0-100.0); MEAN CORPUSCULAR HEMOGLOBIN 29.1 PG (27.0-34.0); MEAN CORPUSCULAR HGB CONC 31.8 % (32.0-36.0); MONO % 5.3 % (0.0-8.0); NEUT % 82.4 % (16.0-70.0); PLATELET COUNT 423 TH/MM3 (150-450); RED BLOOD COUNT 4.21 MIL/MM3 (4.50-5.90); RED CELL DISTRIBUTION WIDTH 17.6 % (11.6-17.2); WHITE BLOOD COUNT 19.9 TH/MM3 (4.0-11.0)
[2016-10-20 07:34] LABS: BICARBONATE 36.5 MEQ/L (21.0-32.0); POTASSIUM 3.9 MEQ/L (3.5-5.1)
[2016-10-20] MEDS: RESP: BUDESONIDE 0.5 MG/2 ML NEB NEB SCH ×2 (08:15→19:04)
[2016-10-20] MEDS: APIXABAN 5 MG TABLET PO SCH ×2 (09:11→20:55)
[2016-10-20] MEDS: DOCUSATE SODIUM 50 MG/SENNA 8.6 MG TAB PO SCH ×2 (09:11→20:56)
[2016-10-20] MEDS: AZITHROMYCIN 250 MG TAB PO SCH (09:11)
[2016-10-20] MEDS: guaiFENesin E.R. 600 MG TAB PO SCH ×2 (09:11→20:55)
[2016-10-20] MEDS: PANTOPRAZOLE SOD 40 MG DELAYED RELEASE TAB PO SCH (09:11)
[2016-10-20] MEDS: INSULIN DETEMIR 100 UNITS/ML VIAL SQ SCH ×2 (09:12→20:56)
[2016-10-20] MEDS: FLUTICASONE PROPIONATE 50 MCG/ACT 16 GM NASAL SPRAY NASAL SCH ×2 (09:12→20:54)
[2016-10-20] MEDS: LORATADINE 10 MG TAB PO SCH (09:12)
--- NOTE | 2016-10-20 09:34 | HHI.FPPN ---
Subjective Remarks Patient states he is doing well overnight and this morning. He had a little bit of constipation yesterday which resolved with milk of magnesia. He feels like he is getting better. He is working with physical therapy. Denies fever, chills, nausea, vomiting, chest pain. (Omari Mcarthur MD R2) Objective Vitals Vital Signs Date Time Temp Pulse Resp B/P Pulse Ox O2 Delivery O2 Flow Rate FiO2 10/20/16 08:15 92 Nasal Cannula 4.00 10/20/16 05:24 97.8 88 18 115/65 90 10/19/16 23:10 98.0 90 18 118/67 90 10/19/16 20:00 92 10/19/16 20:00 Nasal Cannula 3.00 10/19/16 19:53 98.4 97 18 111/61 90 10/19/16 19:36 91 4.00 10/19/16 16:00 98.9 100 20 98/53 91 10/19/16 12:00 98.2 99 20 115/66 92 I/O 10/19/16 10/19/16 10/19/16 10/20/16 10/20/16 10/20/16 07:00 15:00 23:00 07:00 15:00 23:00 Intake Total 240 ml 480 ml 480 ml 480 ml Output Total 125 ml 550 ml 550 ml 400 ml Balance 115 ml -70 ml -70 ml 80 ml Intake Oral 240 ml 480 ml 480 ml 480 ml Output Urine Total 125 ml 550 ml 550 ml 400 ml # Bowel Movements 0 2 2 3 (Omari Mcarthur MD R2) Result Diagram: 10/20/16 0552 10/20/16 0552 Imaging Last Impressions Chest X-Ray 10/19/16 0000 Signed Impressions: Service Date/Time: Wednesday, October 19, 2016 13:49 - CONCLUSION: 1. Small right and trace left pleural effusions, stable from the prior study. 2. Severe emphysema with stable parenchymal opacity at the right lung apex and nodule in the left midlung zone. Gumaro Brown MD CT Angiography 10/14/16 1205 Signed Impressions: Service Date/Time: September 13:05 - CONCLUSION: 1. No evidence of pulmonary embolism. 2. Scattered nodular infiltrates bilaterally consistent with possible developing pneumonia. Clinical correlation is recommended. 3. Stable severe emphysematous changes and scattered fibrotic scarring bilaterally. 4. Small bilateral pleural effusions with adjacent compressive atelectasis. 5. Minimally prominent prevascular, AP window, pretracheal, right paratracheal and subcarinal mediastinal lymphadenopathy which is nonspecific. 6. Coronary artery calcifications. 7. Cholelithiasis. Jostin Crow MD Abdomen/Pelvis CT 10/14/16 0000 Signed Impressions: Service Date/Time: September 13:09 - CONCLUSION: 1. Calcifications in the pancreas from chronic pancreatitis without evidence for acute pancreatitis. 2. Small right pleural effusion and bibasilar atelectasis and/or infiltrate. 3. Cholelithiasis. 4. Fecal impaction. Anthony Baird MD Objective Remarks GENERAL: Normally nourished male laying comfortably in bed in no acute distress. SKIN: Warm and dry without rashes. CV: Distant heart sounds. RRR no m/r/g. 2+ pedal pulses. PULM: Poor respiratory effort with diminished breath sounds and bibasilar crackles, R>L. GI: Diminished bowel sounds. Soft, nondistended. Lower abdomen TTP without guarding or rebound. EXTREMITIES: Chronic venous stasis changes of lower extremities. Hypertrophic, thickened nails. No clubbing. No calf tenderness. NEURO: Awake and alert. (Omari Mcarthur MD R2) A/P Assessment and Plan 61 year old male with COPD, DM, HTN, and DVT admitted for hospital acquired pneumonia. Discharge Planning Unclear discharge timetable; pending clinical improvement and recommendations from ID. PT recommending rehab and patient already coming from so will be able to return when ready for D/C. Likely will need an oxygen will walk test prior to discharge. (Omari Mcarthur MD R2) Attending Attestation Patient examined and case discussed with resident physicians I have read the above note and agree with the assessment/plan is discussed with me I was involved in all medical decision making for this patient Jasbir Manzo M.D. (Jasbir Manzo MD) Problem List: (1) Hospital-acquired pneumonia Status: Acute Plan: Admitted with hospital acquired pneumonia, at time of admission met severe sepsis criteria with tachycardia to 103, WBC of 17, and lactic acid of 2.4. Infectious disease consulted, appreciate recommendations Urine Legionella and pneumococcal antigen negative 10/14 Blood cultures positive for Staph epidermidis, likely contaminant -Reordered blood cultures on 10/20 Sputum culture with normal respiratory kali Continue with incentive spirometer Active antibiotics: Per infectious disease, continue ceftriaxone and azithromycin for 7 total days. -Azithromycin 250mg po (10/17- ) -Azithromycin 500mg po x1, 10/16 -Ceftriaxone 2,000mg IV Q24H (10/16- ) Discontinued antibiotics: -Flagyl and Cefepime (10/14-10/16) -One dose of vanc in the ER on 10/14 Imaging: -Chest x-ray 10/19: Small right and trace left pleural effusions, stable from prior study. Severe emphysema with stable parenchymal opacity at the right lung apex and nodule in the left midlung zone. Chest x-ray 10/14/16: Right basilar patchiness consistent with atelectasis/ pneumonia. Upper lobe emphysematous changes bilaterally. CTA 10/14/16: No evidence of pulmonary embolism. Scattered nodular infiltrates bilaterally consistent with possible developing pneumonia. Stable severe emphysematous changes and scattered fibrotic scarring bilaterally. Small bilateral pleural effusions with adjacent compressive atelectasis. Minimally prominent prevascular, AP window, pretracheal, right paratracheal, and subcarinal mediastinal lymphadenopathy which is nonspecific. Coronary artery calcifications. Cholelithiasis. CT abdomen and pelvis 10/14/16: Calcifications in the pancreas from chronic pancreatitis without evidence for acute pancreatitis. Small right pleural effusion and bibasilar atelectasis/infiltrate. Cholelithiasis. Fecal impaction. (2) Sepsis Status: Acute Plan: Patient with recent hospitalization admitted for hospital-acquired pneumonia (see plans above). Down trending leukocytosis. (3) DVT (deep venous thrombosis) Status: Acute Plan: Patient found to have bilateral DVT in previous hospitalization currently on Eliquis. (4) Chronic obstructive pulmonary disease Status: Chronic Plan: Patient with history of chronic obstructive pulmonary disease secondary to extensive smoking history. Currently being treated for hospital acquired PNA with plans as above. Respiratory CPT Respiratory physiotherapy/Acapella Incentive spirometry Smoking cessation counseling; patient states he intends to quit permanently -Continues to require oxygen. Likely will need home oxygen walk test prior to discharge to . Medications: DuoNeb every 6 hours scheduled Albuterol every 4 hours when necessary dyspnea DuoNeb every 4 hours when necessary shortness of breath Pulmicort twice a day Tessalon 200mg Q8H PRN for cough Antibiotics as above (5) Atrial fibrillation with RVR Status: Chronic Plan: Patient found to have atrial fibrillation with RVR during prior hospitalization. Currently in sinus rhythm Consider rate control with metoprolol if patient becomes tachycardic or goes back into RVR - Continue Eliquis for anticoagulation (6) Diabetes mellitus, type 2 Status: Chronic Plan: Patient with type 2 diabetes. His home regimen includes Levemir 8 units twice a day with SSI. Decreased Levemir 4 units twice a day due to low blood glucose Sliding scale insulin per protocol (7) HTN (hypertension) Status: Acute Plan: Patient with chronic hypertension Holding home lisinopril in light of hypotension from sepsis but can resume likely tomorrow. (8) GERD (gastroesophageal reflux disease) Status: Chronic Plan: Continue Protonix 40 mg daily (9) Nutrition, metabolism, and development symptoms Status: Acute Plan: - Fluids: Tolerating PO - Electrolytes: WNL. Monitor and replete PRN - Nutrition: ADA - DVT prophylaxis: Eliquis Pain control: [place] 5mg for pain 1-5, [place] 10mg for pain 6-10 as he is s/p exploratory laparotomy dw Dr. Manzo (Omari Mcarthur MD R2) Problem Qualifiers (1) Sepsis: Qualified Code: A41.9 - Sepsis, due to unspecified organism (2) Chronic obstructive pulmonary disease: Qualified Code: J44.1 - Chronic obstructive pulmonary disease with acute exacerbation Omari Mcarthur MD R2 Oct 20, 2016 09:34 Jasbir Manzo MD Oct 20, 2016 16:11
--- NOTE | 2016-10-20 15:23 | HHI.IDPN ---
Subjective Subjective Remarks co SOB up on 4 L of NC O2 no fever Multiple BMs, mild abd discomfort WBC went up i the last 2 days Antibiotics CFTX Allergies: Coded Allergies: Penicillin (Verified Allergy, Severe, SWELLING, 09/11/16) has tolerated Cephalosporins in previous admissions *MDRO Multi-Drug Resistant Organism (Verified Adverse Reaction, Unknown, ) Hx MRSA Sputum 2006, Wounds 2003 MRSA PCR Screen negative 11/25/14 & 09/10/15. Cleared per Infection Control. Patient does not require isolation for hx of MRSA prior to 09/10/15. Objective . Vital Signs Date Time Temp Pulse Resp B/P Pulse Ox O2 Delivery O2 Flow Rate FiO2 10/20/16 12:00 98.2 96 20 106/65 93 10/20/16 09:00 89 10/20/16 08:15 92 Nasal Cannula 4.00 10/20/16 08:00 98.2 89 20 106/59 95 10/20/16 05:24 97.8 88 18 115/65 90 10/19/16 23:10 98.0 90 18 118/67 90 10/19/16 20:00 92 10/19/16 20:00 Nasal Cannula 3.00 10/19/16 19:53 98.4 97 18 111/61 90 10/19/16 19:36 91 4.00 10/19/16 16:00 98.9 100 20 98/53 91 10/19/16 10/19/16 10/20/16 15:00 23:00 07:00 Intake Total 480 ml 480 ml 480 ml Output Total 550 ml 550 ml 400 ml Balance -70 ml -70 ml 80 ml Intake Oral 480 ml 480 ml 480 ml Output Urine Total 550 ml 550 ml 400 ml # Bowel Movements 2 2 3 . Laboratory Tests Test 10/19/16 10/20/16 05:32 05:52 White Blood Count 21.9 TH/MM3 19.9 TH/MM3 Red Blood Count 4.06 MIL/MM3 4.21 MIL/MM3 Hemoglobin 11.9 GM/DL 12.2 GM/DL Hematocrit 36.4 % 38.5 % Mean Corpuscular Volume 89.6 FL 91.6 FL Mean Corpuscular Hemoglobin 29.3 PG 29.1 PG Mean Corpuscular Hemoglobin 32.7 % 31.8 % Concent Red Cell Distribution Width 17.3 % 17.6 % Platelet Count 259 TH/MM3 423 TH/MM3 Mean Platelet Volume 9.3 FL 8.5 FL Neutrophils (%) (Auto) 83.6 % 82.4 % Lymphocytes (%) (Auto) 8.8 % 11.3 % Monocytes (%) (Auto) 6.4 % 5.3 % Eosinophils (%) (Auto) 0.3 % 0.5 % Basophils (%) (Auto) 0.9 % 0.5 % Neutrophils # (Auto) 18.2 TH/MM3 16.4 TH/MM3 Lymphocytes # (Auto) 1.9 TH/MM3 2.2 TH/MM3 Monocytes # (Auto) 1.4 TH/MM3 1.1 TH/MM3 Eosinophils # (Auto) 0.1 TH/MM3 0.1 TH/MM3 Basophils # (Auto) 0.2 TH/MM3 0.1 TH/MM3 CBC Comment DIFF FINAL DIFF FINAL Differential Comment Hematology Comments Laboratory Tests Test 10/19/16 10/20/16 09:33 05:52 Sodium Level 138 MEQ/L 136 MEQ/L Potassium Level 3.8 MEQ/L 3.9 MEQ/L Chloride Level 94 MEQ/L 93 MEQ/L Carbon Dioxide Level 37.7 MEQ/L 36.5 MEQ/L Anion Gap 6 MEQ/L 7 MEQ/L Blood Urea Nitrogen 8 MG/DL 7 MG/DL Creatinine 0.31 MG/DL 0.24 MG/DL Estimat Glomerular Filtration 295 ML/MIN 397 ML/MIN Rate Random Glucose 180 MG/DL 77 MG/DL Calcium Level 7.7 MG/DL 8.3 MG/DL Total Bilirubin 0.5 MG/DL Aspartate Amino Transf 10 U/L (AST/SGOT) Alanine Aminotransferase 16 U/L (ALT/SGPT) Alkaline Phosphatase 97 U/L Total Protein 5.9 GM/DL Albumin 2.2 GM/DL Microbiology Date/Time Procedure Status Source Growth 10/19/16 13:03 Legionella Antigen - Final Complete Urine Clean Catch PRESUMPTIVE NEGATIVE FOR LEGIONELLA P... 10/19/16 13:03 Streptococcus pneumoniae Antigen (M - Final Complete Urine Clean Catch PRESUMPTIVE NEGATIVE FOR STREPTOCOCCU... 10/19/16 16:10 Gram Stain - Final Resulted Sputum Expectorated Sputum 10/19/16 16:10 Sputum Culture - Preliminary Resulted Sputum Expectorated Sputum HEAVY GROWTH NORMAL RESPIRATORY KALI... 10/20/16 11:50 Aerobic Blood Culture Received Blood Peripheral Pending 10/20/16 11:50 Anaerobic Blood Culture Received Blood Peripheral Pending 10/20/16 11:56 Aerobic Blood Culture Received Blood Peripheral Pending 10/20/16 11:56 Anaerobic Blood Culture Received Blood Peripheral Pending Imaging Last Impressions Chest X-Ray 10/19/16 0000 Signed Impressions: Service Date/Time: Wednesday, October 19, 2016 13:49 - CONCLUSION: 1. Small right and trace left pleural effusions, stable from the prior study. 2. Severe emphysema with stable parenchymal opacity at the right lung apex and nodule in the left midlung zone. Gumaro Brown MD CT Angiography 10/14/16 1205 Signed Impressions: Service Date/Time: September 13:05 - CONCLUSION: 1. No evidence of pulmonary embolism. 2. Scattered nodular infiltrates bilaterally consistent with possible developing pneumonia. Clinical correlation is recommended. 3. Stable severe emphysematous changes and scattered fibrotic scarring bilaterally. 4. Small bilateral pleural effusions with adjacent compressive atelectasis. 5. Minimally prominent prevascular, AP window, pretracheal, right paratracheal and subcarinal mediastinal lymphadenopathy which is nonspecific. 6. Coronary artery calcifications. 7. Cholelithiasis. Jostin Crow MD Abdomen/Pelvis CT 10/14/16 0000 Signed Impressions: Service Date/Time: September 13:09 - CONCLUSION: 1. Calcifications in the pancreas from chronic pancreatitis without evidence for acute pancreatitis. 2. Small right pleural effusion and bibasilar atelectasis and/or infiltrate. 3. Cholelithiasis. 4. Fecal impaction. Anthony Baird MD Physical Exam CONSTITUTIONAL/GENERAL: This is an adequately nourished patient, in no apparent distress. TUBES/LINES/DRAINS: SKIN: No jaundice, rashes, or lesions. EYES: Pupils equal and round and reactive. Extraocular motions intact. No scleral icterus. No injection or drainage. Fundi not examined. ENT:Moist mucosae. POor dentition CARDIOVASCULAR: Regular rate and rhythm without murmurs, gallops, or rubs. No JVD. Peripheral pulses symmetric. RESPIRATORY/CHEST: Symmetric, unlabored respirations. Clear to auscultation. Breath sounds equal bilaterally. No wheezes, rales, or rhonchi. GASTROINTESTINAL: Abdomen soft, + minimally tender to deep palpation RLQ , nondistended. Well healed med laparotomy incision No hepato-splenomegaly, or palpable masses. No guarding. Bowel sounds present. GENITOURINARY: Without palpable bladder distension. MUSCULOSKELETAL: Extremities without clubbing, cyanosis, or edema. NEUROLOGICAL: Awake and alert. Motor and sensory grossly within normal limits. Follows commands. Normal speech. Moves all extremities. Assessment & Plan Remarks RLL PNA, sputum with nl resp kali - recently quit tob 3 mos ago - Leg/pneumococcus neg COPD exacrbation: most likely contributor to incrasing O2 requirement s staph epi bacteremia, 2 morphologies - doubt clin significance Abdominsl pain - CT A/P negative Abx associated diarrhea - Worsening leukocytosis ? source ? adb - PNA Chronic pancreatitis with calcifications CHolelithiasiss, clinically asymptomatic -cont CFTX, azithro x 7 days total: thru 01/21 -can be switched to po if dc 'd before Rx completed -ro c.diff dw Bibi Arciniega MD Oct 20, 2016 15:23
[2016-10-20] MEDS: cefTRIAXone INJ 2,000 MG in SODIUM CHLORIDE 0.9% INJ 100 ML IV SCH (17:00)
[2016-10-20 19:52] LABS: C. DIFF EPI 027 PRESUMPTIVE POSITIVE (NEGATIVE); C. DIFF TOXIN PCR POSITIVE (NEGATIVE)
[2016-10-20] MEDS ORDERED: POLYETHYLENE GLYCOL 17 GM PKG PO SCH (21:00)
[2016-10-21] VITALS (9 sets, daily range): BP systolic 101–133; BP diastolic 58–105; PULSE 86–98; RESP 18–20; TEMP 98–99.2; O2SAT 91–98
[2016-10-21] MEDS: INSULIN ASPART SUPPLEMENTAL SCALE SQ SCH ×4 (06:23→21:05)
[2016-10-21 06:46] LABS: AUTOMATED NEUTROPHIL # 14.4 TH/MM3 (1.8-7.7); BASOPHIL # 0.1 TH/MM3 (0-0.2); BASOPHIL % 0.3 % (0.0-2.0); EOSINOPHIL # 0.1 TH/MM3 (0-0.4); EOSINOPHIL % 0.8 % (0.0-4.0); HEMATOCRIT 36.5 % (39.0-51.0); HEMO FLAGS DIFF FINAL; LYMPH % 10.9 % (9.0-44.0); LYMPHOCYTE # 1.9 TH/MM3 (1.0-4.8); MEAN CORPUSCULAR HEMOGLOBIN 29.1 PG (27.0-34.0); MEAN CORPUSCULAR HGB CONC 32.3 % (32.0-36.0); MONO % 6.5 % (0.0-8.0); NEUT % 81.5 % (16.0-70.0); PLATELET COUNT 425 TH/MM3 (150-450); RED BLOOD COUNT 4.06 MIL/MM3 (4.50-5.90); RED CELL DISTRIBUTION WIDTH 17.5 % (11.6-17.2); WHITE BLOOD COUNT 17.7 TH/MM3 (4.0-11.0)
[2016-10-21 06:53] LABS: BICARBONATE 32.6 MEQ/L (21.0-32.0); POTASSIUM 4.1 MEQ/L (3.5-5.1)
[2016-10-21] MEDS: RESP: BUDESONIDE 0.5 MG/2 ML NEB NEB SCH ×2 (07:18→21:06)
[2016-10-21] MEDS ORDERED: DOCUSATE SODIUM 50 MG/SENNA 8.6 MG TAB PO PRN (08:30)
[2016-10-21] MEDS: AZITHROMYCIN 250 MG TAB PO SCH (09:04)
[2016-10-21] MEDS: metroNIDAZOLE 500 MG TAB PO SCH ×2 (09:04→12:32)
[2016-10-21] MEDS: guaiFENesin E.R. 600 MG TAB PO SCH ×2 (09:04→21:05)
[2016-10-21] MEDS: LORATADINE 10 MG TAB PO SCH (09:04)
[2016-10-21] MEDS: PANTOPRAZOLE SOD 40 MG DELAYED RELEASE TAB PO SCH (09:04)
[2016-10-21] MEDS: APIXABAN 5 MG TABLET PO SCH ×2 (09:05→21:05)
[2016-10-21] MEDS: INSULIN DETEMIR 100 UNITS/ML VIAL SQ SCH ×2 (09:05→21:05)
[2016-10-21] MEDS: FLUTICASONE PROPIONATE 50 MCG/ACT 16 GM NASAL SPRAY NASAL SCH ×2 (09:05→21:14)
--- NOTE | 2016-10-21 09:13 | HHI.FPPN ---
Subjective Remarks Patient states he is in more discomfort this morning pain yesterday. He complains of left lower quadrant/left flank pain; and he would like medication other than the [place] which is listed which caused constipation previously. He denies fevers, however does complain of chills. He has had 4 bowel movements since yesterday. Denies nausea, vomiting, chest pain. He has a good appetite. (Omari Mcarthur MD R2) Objective Vitals Vital Signs Date Time Temp Pulse Resp B/P Pulse Ox O2 Delivery O2 Flow Rate FiO2 10/21/16 07:18 91 Nasal Cannula 4.00 10/21/16 03:45 98.5 90 18 113/64 98 10/20/16 23:08 98.7 91 18 113/72 93 10/20/16 20:00 Nasal Cannula 3.00 10/20/16 20:00 92 10/20/16 19:42 98.2 94 18 116/58 93 10/20/16 19:06 95 Nasal Cannula 4.00 10/20/16 16:00 98.1 93 20 118/59 95 10/20/16 12:00 98.2 96 20 106/65 93 I/O 10/20/16 10/20/16 10/20/16 10/21/16 10/21/16 10/21/16 07:00 15:00 23:00 07:00 15:00 23:00 Intake Total 480 ml 720 ml 240 ml 480 ml Output Total 400 ml 400 ml 850 ml 575 ml Balance 80 ml 320 ml -610 ml -95 ml Intake Oral 480 ml 720 ml 240 ml 480 ml Output Urine Total 400 ml 400 ml 850 ml 575 ml # Bowel Movements 3 2 2 0 (Omari Mcarthur MD R2) Result Diagram: 10/21/1635 10/21/16 0535 Objective Remarks GENERAL: Normally nourished male laying comfortably in bed in no acute distress. SKIN: Warm and dry without rashes. CV: Distant heart sounds. RRR no m/r/g. 2+ pedal pulses. PULM: Poor respiratory effort with diminished breath sounds and bibasilar crackles, R>L. GI: Diminished bowel sounds. Soft, nondistended. Left lower abdomen slightly tender to palpation. No rebound or guarding. EXTREMITIES: Chronic venous stasis changes of lower extremities. Hypertrophic, thickened nails. No clubbing. No calf tenderness. NEURO: Awake and alert. (Omari Mcarthur MD R2) A/P Assessment and Plan 61 year old male with COPD, DM, HTN, and DVT admitted for hospital acquired pneumonia. On 10/20, the patient had been having diarrhea and was C. difficile positive. Discharge Planning Unclear discharge timetable; pending clinical improvement and recommendations from ID. PT recommending rehab and patient already coming from [facility] so will be able to return when ready for D/C. Likely will require oxygen on discharge. (Omari Mcarthur MD R2) Attending Attestation Pt. examined and case discussed with resident physicians I have read the above note and agree with the assessment/plan as discussed with me I was involved in all medical decision making for this patient Jasbir Manzo MD (Jasbir Manzo MD) Problem List: (1) Hospital-acquired pneumonia Status: Acute Plan: Admitted with hospital acquired pneumonia, at time of admission met severe sepsis criteria with tachycardia to 103, WBC of 17, and lactic acid of 2.4. Infectious disease consulted, appreciate recommendations Urine Legionella and pneumococcal antigen negative 10/14 Blood cultures positive for Staph epidermidis, likely contaminant -Reordered blood cultures on 10/20 Sputum culture with normal respiratory kali Continue with incentive spirometer Active antibiotics: Per infectious disease, continue ceftriaxone and azithromycin for 7 total days. -Azithromycin 250mg po (10/17- ) -Azithromycin 500mg po x1, 10/16 -Ceftriaxone 2,000mg IV Q24H (10/16- ) Discontinued antibiotics: -Cefepime (10/14-10/16) -One dose of vanc in the ER on 10/14 Imaging: -Chest x-ray 10/19: Small right and trace left pleural effusions, stable from prior study. Severe emphysema with stable parenchymal opacity at the right lung apex and nodule in the left midlung zone. Chest x-ray 10/14/16: Right basilar patchiness consistent with atelectasis/ pneumonia. Upper lobe emphysematous changes bilaterally. CTA 10/14/16: No evidence of pulmonary embolism. Scattered nodular infiltrates bilaterally consistent with possible developing pneumonia. Stable severe emphysematous changes and scattered fibrotic scarring bilaterally. Small bilateral pleural effusions with adjacent compressive atelectasis. Minimally prominent prevascular, AP window, pretracheal, right paratracheal, and subcarinal mediastinal lymphadenopathy which is nonspecific. Coronary artery calcifications. Cholelithiasis. CT abdomen and pelvis 10/14/16: Calcifications in the pancreas from chronic pancreatitis without evidence for acute pancreatitis. Small right pleural effusion and bibasilar atelectasis/infiltrate. Cholelithiasis. Fecal impaction. (2) Clostridium difficile diarrhea Status: Acute Plan: Patient with mild/moderate C. difficile infection. Infectious disease on board Start metronidazole 500 mg by mouth every 8 hours (patient likely needs a 10 - 14 day course) Pain control: Morphine 2 mg IV every 3 hours when necessary pain 6-10. Tylenol pain less than 6. (3) DVT (deep venous thrombosis) Status: Acute Plan: Patient found to have bilateral DVT in previous hospitalization currently on Eliquis. (4) Chronic obstructive pulmonary disease Status: Chronic Plan: Patient with history of chronic obstructive pulmonary disease secondary to extensive smoking history. Currently being treated for hospital acquired PNA with plans as above. Respiratory CPT Respiratory physiotherapy/Acapella Incentive spirometry Smoking cessation counseling; patient states he intends to quit permanently -Continues to require oxygen. Likely will need oxygen when discharged to [facility]. Medications: DuoNeb every 6 hours scheduled Albuterol every 4 hours when necessary dyspnea DuoNeb every 4 hours when necessary shortness of breath Pulmicort twice a day Tessalon 200mg Q8H PRN for cough Antibiotics as above (5) Atrial fibrillation with RVR Status: Chronic Plan: Patient found to have atrial fibrillation with RVR during prior hospitalization. Currently in sinus rhythm Consider rate control with metoprolol if patient becomes tachycardic or goes back into RVR - Continue Eliquis for anticoagulation (6) Diabetes mellitus, type 2 Status: Chronic Plan: Patient with type 2 diabetes. His home regimen includes Levemir 8 units twice a day with SSI. Decreased Levemir 4 units twice a day due to low blood glucose Sliding scale insulin per protocol (7) HTN (hypertension) Status: Acute Plan: Patient with chronic hypertension Holding home lisinopril in light of hypotension from sepsis but can resume likely tomorrow. (8) GERD (gastroesophageal reflux disease) Status: Chronic Plan: Continue Protonix 40 mg daily (9) Nutrition, metabolism, and development symptoms Status: Acute Plan: - Fluids: Tolerating PO - Electrolytes: WNL. Monitor and replete PRN - Nutrition: ADA - DVT prophylaxis: Eliquis Pain control: Morphine 2 mg IV every 3 hours pain 6-10, Tylenol pain less than [address] Manzo (10) Sepsis Status: Resolved Plan: Patient with recent hospitalization admitted for hospital-acquired pneumonia (see plans above). Down trending leukocytosis. (Omari Mcarthur MD R2) Problem Qualifiers (1) Chronic obstructive pulmonary disease: Qualified Code: J44.1 - Chronic obstructive pulmonary disease with acute exacerbation (2) Sepsis: Qualified Code: A41.9 - Sepsis, due to unspecified organism Omari Mcarthur MD R2 Oct 21, 2016 09:13 Jasbir Manzo MD Oct 21, 2016 14:02
[2016-10-21 12:59] LABS: BLOOD, URINE NEG (NEG); COMMENT (UR) CULT NOT INDICATED; CULTURE IF INDICATED CULT NOT INDICATED; GLUCOSE,URINE NEG (NEG); KETONE, URINE NEG (NEG); NITRITE,URINE NEG (NEG); SQUAMOUS EPITHELIAL CELL URINE <1 /hpf (0-5); URINE COLOR YELLOW (YELLW/STRAW)
[2016-10-21] MEDS: MORPHINE SULFATE 4 MG/ML INJ IV PUSH PRN ×3 (13:38→21:04)
[2016-10-21] MEDS ORDERED: RESP: ALBUTEROL 2.5 MG/3 ML NEB (PRN) INH (13:45)
--- NOTE | 2016-10-21 15:47 | HHI.PR ---
Addendum to Inpatient Note Additional Information C.diff + for hypervirulent strain will start PO valeria aburto other abx Bibi Mckay MD Oct 21, 2016 15:47
--- NOTE | 2016-10-21 16:33 | HHI.IDPN ---
Subjective Subjective Remarks C.diff positive low grade fever denies abd pain remain on 4 L NC O2 with sats in low 90s Antibiotics CFTX Allergies: Coded Allergies: Penicillin (Verified Allergy, Severe, SWELLING, 09/11/16) has tolerated Cephalosporins in previous admissions *MDRO Multi-Drug Resistant Organism (Verified Adverse Reaction, Unknown, ) Hx MRSA Sputum 2006, Wounds 2003 MRSA PCR Screen negative 11/25/14 & 09/10/15. Cleared per Infection Control. Patient does not require isolation for hx of MRSA prior to 09/10/15. Objective . Vital Signs Date Time Temp Pulse Resp B/P Pulse Ox O2 Delivery O2 Flow Rate FiO2 10/21/16 12:00 99.2 97 20 108/64 93 10/21/16 09:00 Nasal Cannula 4.00 10/21/16 08:00 98 10/21/16 08:00 99.2 96 20 133/105 93 10/21/16 07:18 91 Nasal Cannula 4.00 10/21/16 03:45 98.5 90 18 113/64 98 10/20/16 23:08 98.7 91 18 113/72 93 10/20/16 20:00 Nasal Cannula 3.00 10/20/16 20:00 92 10/20/16 19:42 98.2 94 18 116/58 93 10/20/16 19:06 95 Nasal Cannula 4.00 10/20/16 10/20/16 10/21/16 15:00 23:00 07:00 Intake Total 720 ml 240 ml 480 ml Output Total 400 ml 850 ml 575 ml Balance 320 ml -610 ml -95 ml Intake Oral 720 ml 240 ml 480 ml Output Urine Total 400 ml 850 ml 575 ml # Bowel Movements 2 2 0 . Laboratory Tests Test 10/20/16 10/21/16 05:52 05:35 White Blood Count 19.9 TH/MM3 17.7 TH/MM3 Red Blood Count 4.21 MIL/MM3 4.06 MIL/MM3 Hemoglobin 12.2 GM/DL 11.8 GM/DL Hematocrit 38.5 % 36.5 % Mean Corpuscular Volume 91.6 FL 90.0 FL Mean Corpuscular Hemoglobin 29.1 PG 29.1 PG Mean Corpuscular Hemoglobin 31.8 % 32.3 % Concent Red Cell Distribution Width 17.6 % 17.5 % Platelet Count 423 TH/MM3 425 TH/MM3 Mean Platelet Volume 8.5 FL 8.4 FL Neutrophils (%) (Auto) 82.4 % 81.5 % Lymphocytes (%) (Auto) 11.3 % 10.9 % Monocytes (%) (Auto) 5.3 % 6.5 % Eosinophils (%) (Auto) 0.5 % 0.8 % Basophils (%) (Auto) 0.5 % 0.3 % Neutrophils # (Auto) 16.4 TH/MM3 14.4 TH/MM3 Lymphocytes # (Auto) 2.2 TH/MM3 1.9 TH/MM3 Monocytes # (Auto) 1.1 TH/MM3 1.1 TH/MM3 Eosinophils # (Auto) 0.1 TH/MM3 0.1 TH/MM3 Basophils # (Auto) 0.1 TH/MM3 0.1 TH/MM3 CBC Comment DIFF FINAL DIFF FINAL Differential Comment Laboratory Tests Test 10/20/16 10/21/16 05:52 05:35 Sodium Level 136 MEQ/L 136 MEQ/L Potassium Level 3.9 MEQ/L 4.1 MEQ/L Chloride Level 93 MEQ/L 96 MEQ/L Carbon Dioxide Level 36.5 MEQ/L 32.6 MEQ/L Anion Gap 7 MEQ/L 7 MEQ/L Blood Urea Nitrogen 7 MG/DL 8 MG/DL Creatinine 0.24 MG/DL 0.30 MG/DL Estimat Glomerular Filtration 397 ML/MIN 307 ML/MIN Rate Random Glucose 77 MG/DL 95 MG/DL Calcium Level 8.3 MG/DL 7.8 MG/DL Microbiology Date/Time Procedure Status Source Growth 10/19/16 13:03 Legionella Antigen - Final Complete Urine Clean Catch PRESUMPTIVE NEGATIVE FOR LEGIONELLA P... 10/19/16 13:03 Streptococcus pneumoniae Antigen (M - Final Complete Urine Clean Catch PRESUMPTIVE NEGATIVE FOR STREPTOCOCCU... 10/19/16 16:10 Gram Stain - Final Complete Sputum Expectorated Sputum 10/19/16 16:10 Sputum Culture - Final Complete Sputum Expectorated Sputum HEAVY GROWTH NORMAL RESPIRATORY KALI 10/20/16 11:50 Aerobic Blood Culture - Preliminary Resulted Blood Peripheral NO GROWTH IN 1 DAY 10/20/16 11:50 Anaerobic Blood Culture - Preliminary Resulted Blood Peripheral NO GROWTH IN 1 DAY 10/20/16 11:56 Aerobic Blood Culture - Preliminary Resulted Blood Peripheral NO GROWTH IN 1 DAY 10/20/16 11:56 Anaerobic Blood Culture - Preliminary Resulted Blood Peripheral NO GROWTH IN 1 DAY Imaging Last Impressions Chest X-Ray 10/19/16 0000 Signed Impressions: Service Date/Time: Wednesday, October 19, 2016 13:49 - CONCLUSION: 1. Small right and trace left pleural effusions, stable from the prior study. 2. Severe emphysema with stable parenchymal opacity at the right lung apex and nodule in the left midlung zone. Gumaro Brown MD CT Angiography 10/14/16 1205 Signed Impressions: Service Date/Time: September 13:05 - CONCLUSION: 1. No evidence of pulmonary embolism. 2. Scattered nodular infiltrates bilaterally consistent with possible developing pneumonia. Clinical correlation is recommended. 3. Stable severe emphysematous changes and scattered fibrotic scarring bilaterally. 4. Small bilateral pleural effusions with adjacent compressive atelectasis. 5. Minimally prominent prevascular, AP window, pretracheal, right paratracheal and subcarinal mediastinal lymphadenopathy which is nonspecific. 6. Coronary artery calcifications. 7. Cholelithiasis. Jostin Crow MD Abdomen/Pelvis CT 10/14/16 0000 Signed Impressions: Service Date/Time: September 13:09 - CONCLUSION: 1. Calcifications in the pancreas from chronic pancreatitis without evidence for acute pancreatitis. 2. Small right pleural effusion and bibasilar atelectasis and/or infiltrate. 3. Cholelithiasis. 4. Fecal impaction. Anthony Baird MD Physical Exam CONSTITUTIONAL/GENERAL: This is an adequately nourished patient, in no apparent distress. TUBES/LINES/DRAINS: SKIN: No jaundice, rashes, or lesions. EYES: Pupils equal and round and reactive. Extraocular motions intact. No scleral icterus. No injection or drainage. Fundi not examined. ENT:Moist mucosae. POor dentition CARDIOVASCULAR: Regular rate and rhythm without murmurs, gallops, or rubs. No JVD. Peripheral pulses symmetric. RESPIRATORY/CHEST: Symmetric, unlabored respirations. Clear to auscultation. Breath sounds equal bilaterally. No wheezes, rales, or rhonchi. GASTROINTESTINAL: Abdomen soft, + minimally tender to deep palpation RLQ , nondistended. Well healed med laparotomy incision No hepato-splenomegaly, or palpable masses. No guarding. Bowel sounds present. GENITOURINARY: Without palpable bladder distension. MUSCULOSKELETAL: Extremities without clubbing, cyanosis, or edema. NEUROLOGICAL: Awake and alert. Motor and sensory grossly within normal limits. Follows commands. Normal speech. Moves all extremities. Assessment & Plan Remarks RLL PNA, sputum with nl resp kali - recently quit tob 3 mos ago - Leg/pneumococcus neg COPD exacrbation: most likely contributor to incrasing O2 requirement s staph epi bacteremia, 2 morphologies - doubt clin significance Abdominsl pain - CT A/P negative Abx associated diarrhea - Worsening leukocytosis ? source ? adb - PNA Chronic pancreatitis with calcifications CHolelithiasiss, clinically asymptomatic New issue: C.diff, hypervirulent strain 027 -complete CFTX, azithro - vanco po x 14 days for C.diff - will repeat CXR Bibi Mckay MD Oct 21, 2016 16:33
[2016-10-21] MEDS: VANCOMYCIN 500 MG VIAL (FOR ORAL USE ONLY) PO SCH ×2 (16:38→21:05)
[2016-10-21] MEDS: RESP: ALBUTEROL 2.5 MG/IPRATROPIUM 0.5 MG NEB (SCH) INH ×3 (17:35→23:50)
[2016-10-22] VITALS (7 sets, daily range): BP systolic 106–111; BP diastolic 57–70; PULSE 92–104; RESP 18–23; TEMP 98.3–98.8; O2SAT 92–98
[2016-10-22] MEDS: MORPHINE SULFATE 4 MG/ML INJ IV PUSH PRN ×6 (00:11→17:15)
[2016-10-22] MEDS: VANCOMYCIN 500 MG VIAL (FOR ORAL USE ONLY) PO SCH ×4 (03:00→20:37)
[2016-10-22] MEDS: RESP: ALBUTEROL 2.5 MG/IPRATROPIUM 0.5 MG NEB (SCH) INH ×5 (03:20→19:16)
[2016-10-22] MEDS: INSULIN ASPART SUPPLEMENTAL SCALE SQ SCH ×4 (05:36→20:36)
[2016-10-22 07:18] LABS: AUTOMATED NEUTROPHIL # 14.4 TH/MM3 (1.8-7.7); BASOPHIL # 0.1 TH/MM3 (0-0.2); BASOPHIL % 0.5 % (0.0-2.0); EOSINOPHIL # 0.1 TH/MM3 (0-0.4); EOSINOPHIL % 0.4 % (0.0-4.0); HEMATOCRIT 34.8 % (39.0-51.0); HEMO FLAGS DIFF FINAL; LYMPH % 11.9 % (9.0-44.0); LYMPHOCYTE # 2.2 TH/MM3 (1.0-4.8); MEAN CELL VOLUME 89.2 FL (80.0-100.0); MEAN CORPUSCULAR HEMOGLOBIN 29.4 PG (27.0-34.0); MONO % 7.9 % (0.0-8.0); NEUT % 79.3 % (16.0-70.0); PLATELET COUNT 447 TH/MM3 (150-450); RED BLOOD COUNT 3.91 MIL/MM3 (4.50-5.90); RED CELL DISTRIBUTION WIDTH 17.9 % (11.6-17.2); WHITE BLOOD COUNT 18.2 TH/MM3 (4.0-11.0)
--- NOTE | 2016-10-22 07:22 | RADRPT ---
EXAM DATE/TIME: 10/22/2016 06:09 [place] COMPARISON: CT THORAX W/O CONTRAST, September 25, 2016, 17:09. CHEST SINGLE AP, October 14, 2016, 12:22. INDICATIONS : Short of breath, evaluate pneumonia MEDICAL HISTORY : None. SURGICAL HISTORY : None. ENCOUNTER: Subsequent ACUITY: 2 days PAIN SCORE: 1/10 LOCATION: Bilateral chest FINDINGS: Portable AP view of the chest demonstrates a normal-sized cardiac silhouette. Lungs are underinflated and there are interstitial opacities at both lung bases and there is a stable linear opacity at the right lung base. Upper lung zone appearance is characteristic of emphysema. No pleural effusion or pn eumothorax is visualized. There is severe calcification of the axillary arteries bilaterally. CONCLUSION: 1. Improved aeration at the right lung base. However, there is continued interstitial opacity at both lung bases. 2. Background lung changes characteristic of emphysema. Gumaro Brown MD on October 22, 2016 at 7:19 Board Certified Radiologist. This report was verified electronically.
[2016-10-22] MEDS: RESP: BUDESONIDE 0.5 MG/2 ML NEB NEB SCH ×2 (07:45→19:16)
[2016-10-22 07:56] LABS: ALT (GPT) 19 U/L (12-78); ANION GAP 8 MEQ/L (5-15); AST (GOT) 16 U/L (15-37); BLOOD UREA NITROGEN 9 MG/DL (7-18); CHLORIDE 96 MEQ/L (98-107); GLOMERULAR FILTRATION RATE 463 ML/MIN (>89); SODIUM (NA) 135 MEQ/L (136-145)
[2016-10-22 07:57] LABS: ALKALINE PHOSPHATASE 109 U/L (45-117); TOTAL BILIRUBIN ADULT 0.3 MG/DL (0.2-1.0)
[2016-10-22] MEDS: guaiFENesin E.R. 600 MG TAB PO SCH ×2 (08:00→20:36)
[2016-10-22] MEDS: LORATADINE 10 MG TAB PO SCH (08:00)
[2016-10-22] MEDS: INSULIN DETEMIR 100 UNITS/ML VIAL SQ SCH ×2 (08:00→20:36)
[2016-10-22] MEDS: PANTOPRAZOLE SOD 40 MG DELAYED RELEASE TAB PO SCH (08:00)
[2016-10-22] MEDS: FLUTICASONE PROPIONATE 50 MCG/ACT 16 GM NASAL SPRAY NASAL SCH ×2 (08:00→20:41)
[2016-10-22] MEDS: APIXABAN 5 MG TABLET PO SCH ×2 (08:00→20:37)
--- NOTE | 2016-10-22 08:59 | HHI.FPPN ---
Subjective Remarks Patient is doing better this morning. He states his abdominal pain is under better control. He thinks he may have had only 1 bowel movement in the last 12- 14 hours. He feels as though his strength and energy are improving. Denies fever, chills. Working with physical therapy. Objective Vitals Vital Signs Date Time Temp Pulse Resp B/P Pulse Ox O2 Delivery O2 Flow Rate FiO2 10/22/16 07:47 92 Nasal Cannula 3.00 10/22/16 05:42 98.3 92 18 107/57 93 10/21/16 23:35 98.0 92 18 105/58 93 10/21/16 20:59 92 Nasal Cannula 3.00 10/21/16 20:05 98.2 91 18 101/60 92 10/21/16 20:00 Nasal Cannula 3.00 10/21/16 20:00 86 10/21/16 16:00 98.7 94 20 115/70 93 10/21/16 12:00 99.2 97 20 108/64 93 10/21/16 09:00 Nasal Cannula 4.00 I/O 10/21/16 10/21/16 10/21/16 10/22/16 10/22/16 10/22/16 07:00 15:00 23:00 07:00 15:00 23:00 Intake Total 480 ml 1080 ml 480 ml 360 ml Output Total 575 ml 700 ml 350 ml 650 ml Balance -95 ml 380 ml 130 ml -290 ml Intake Oral 480 ml 1080 ml 480 ml 360 ml IV Total 0 ml Output Urine Total 575 ml 700 ml 350 ml 650 ml # Bowel Movements 0 0 0 0 Result Diagram: 10/22/1613 10/22/16 0613 Imaging Last Impressions Chest X-Ray 10/22/16 0600 Signed Impressions: Service Date/Time: Saturday, October 22, 2016 06:09 - CONCLUSION: 1. Improved aeration at the right lung base. However, there is continued interstitial opacity at both lung bases. 2. Background lung changes characteristic of emphysema. Gumaro Brown MD CT Angiography 10/14/16 1205 Signed Impressions: Service Date/Time: September 13:05 - CONCLUSION: 1. No evidence of pulmonary embolism. 2. Scattered nodular infiltrates bilaterally consistent with possible developing pneumonia. Clinical correlation is recommended. 3. Stable severe emphysematous changes and scattered fibrotic scarring bilaterally. 4. Small bilateral pleural effusions with adjacent compressive atelectasis. 5. Minimally prominent prevascular, AP window, pretracheal, right paratracheal and subcarinal mediastinal lymphadenopathy which is nonspecific. 6. Coronary artery calcifications. 7. Cholelithiasis. Jostin Crow MD Abdomen/Pelvis CT 10/14/16 0000 Signed Impressions: Service Date/Time: September 13:09 - CONCLUSION: 1. Calcifications in the pancreas from chronic pancreatitis without evidence for acute pancreatitis. 2. Small right pleural effusion and bibasilar atelectasis and/or infiltrate. 3. Cholelithiasis. 4. Fecal impaction. Anthony Baird MD Objective Remarks GENERAL: Normally nourished male laying comfortably in bed in no acute distress. SKIN: Warm and dry without rashes. CV: Distant heart sounds. RRR no m/r/g. 2+ pedal pulses. PULM: Poor respiratory effort with diminished breath sounds and bibasilar crackles, R>L. GI: Diminished bowel sounds. Soft, nondistended. Left lower abdomen slightly tender to palpation. No rebound or guarding. EXTREMITIES: Chronic venous stasis changes of lower extremities. Hypertrophic, thickened nails. No clubbing. No calf tenderness. NEURO: Awake and alert. A/P Assessment and Plan 61 year old male with COPD, DM, HTN, and DVT admitted for hospital acquired pneumonia. On 10/20, the patient had been having diarrhea and was C. difficile positive. Discharge Planning Unclear discharge timetable; pending clinical improvement and recommendations from ID. PT recommending rehab and patient already coming from [facility] so will be able to return when ready for D/C. Likely will require oxygen on discharge. Problem List: (1) Hospital-acquired pneumonia Status: Acute Plan: Admitted with hospital acquired pneumonia, at time of admission met severe sepsis criteria with tachycardia to 103, WBC of 17, and lactic acid of 2.4. Infectious disease consulted Urine Legionella and pneumococcal antigen negative 10/14 Blood cultures positive for Staph epidermidis, likely contaminant 10/20 blood cultures: No growth to date Sputum culture with normal respiratory kali Continue with incentive spirometer Discontinued antibiotics: -Cefepime (10/14-10/16) -One dose of vanc in the ER on 10/14 -Azithromycin 250mg po (10/17-10/21 ) -Azithromycin 500mg po x1, 10/16 -Ceftriaxone 2,000mg IV Q24H (10/16-10/21 ) Imaging: -Chest x-ray 10/22: Improved aeration at the right lung base. However, continued interstitial opacity at both lung bases. Severe emphysema. -Chest x-ray 10/19: Small right and trace left pleural effusions, stable from prior study. Severe emphysema with stable parenchymal opacity at the right lung apex and nodule in the left midlung zone. Chest x-ray 10/14/16: Right basilar patchiness consistent with atelectasis/ pneumonia. Upper lobe emphysematous changes bilaterally. CTA 10/14/16: No evidence of pulmonary embolism. Scattered nodular infiltrates bilaterally consistent with possible developing pneumonia. Stable severe emphysematous changes and scattered fibrotic scarring bilaterally. Small bilateral pleural effusions with adjacent compressive atelectasis. Minimally prominent prevascular, AP window, pretracheal, right paratracheal, and subcarinal mediastinal lymphadenopathy which is nonspecific. Coronary artery calcifications. Cholelithiasis. CT abdomen and pelvis 10/14/16: Calcifications in the pancreas from chronic pancreatitis without evidence for acute pancreatitis. Small right pleural effusion and bibasilar atelectasis/infiltrate. Cholelithiasis. Fecal impaction. (2) Clostridium difficile diarrhea Status: Acute Plan: Infectious disease consulted Hyper virulent strain 027 Vancomycin 500 mg by mouth every 6 hours (started 10/21-); expect 14 day course Pain control: Morphine 2 mg IV every 3 hours when necessary pain 6-10. Tylenol pain less than 6. (3) DVT (deep venous thrombosis) Status: Acute Plan: Patient found to have bilateral DVT in previous hospitalization currently on Eliquis. (4) Chronic obstructive pulmonary disease Status: Chronic Plan: Patient with history of chronic obstructive pulmonary disease secondary to extensive smoking history. Respiratory CPT Respiratory physiotherapy/Acapella Incentive spirometry Smoking cessation counseling; patient states he intends to quit permanently -Continues to require oxygen. Likely will need oxygen when discharged to [facility]. Medications: DuoNeb every 4 hours scheduled Albuterol every 2 hours when necessary dyspnea Pulmicort twice a day Tessalon 200mg Q8H PRN for cough Antibiotics as above per infectious disease (5) Atrial fibrillation with RVR Status: Chronic Plan: Patient found to have atrial fibrillation with RVR during prior hospitalization. Currently in sinus rhythm Consider rate control with metoprolol if patient becomes tachycardic or goes back into RVR - Continue Eliquis for anticoagulation (6) Diabetes mellitus, type 2 Status: Chronic Plan: Patient with type 2 diabetes. His home regimen includes Levemir 8 units twice a day with SSI. Decreased Levemir 4 units twice a day due to low blood glucose Sliding scale insulin per protocol (7) HTN (hypertension) Status: Acute Plan: Patient with chronic hypertension Holding home lisinopril in light of hypotension from sepsis but can resume likely tomorrow. (8) GERD (gastroesophageal reflux disease) Status: Chronic Plan: Continue Protonix 40 mg daily (9) Nutrition, metabolism, and development symptoms Status: Acute Plan: - Fluids: Tolerating PO - Electrolytes: WNL. Monitor and replete PRN - Nutrition: ADA - DVT prophylaxis: Eliquis Pain control: Morphine 2 mg IV every 3 hours pain 6-10, Tylenol pain less than [address] Manzo (10) Sepsis Status: Resolved Plan: Patient with recent hospitalization admitted for hospital-acquired pneumonia (see plans above). Down trending leukocytosis. Problem Qualifiers (1) Chronic obstructive pulmonary disease: Qualified Code: J44.1 - Chronic obstructive pulmonary disease with acute exacerbation (2) Sepsis: Qualified Code: A41.9 - Sepsis, due to unspecified organism Omari Mcarthur MD R2 Oct 22, 2016 08:59
[2016-10-23] VITALS (10 sets, daily range): BP systolic 84–114; BP diastolic 49–72; PULSE 72–97; RESP 20; TEMP 97.8–99.1; O2SAT 92–96
[2016-10-23] MEDS: RESP: ALBUTEROL 2.5 MG/IPRATROPIUM 0.5 MG NEB (SCH) INH ×6 (00:03→23:30)
[2016-10-23] MEDS: VANCOMYCIN 500 MG VIAL (FOR ORAL USE ONLY) PO SCH ×4 (02:31→20:49)
[2016-10-23] MEDS: INSULIN ASPART SUPPLEMENTAL SCALE SQ SCH ×4 (05:19→20:50)
[2016-10-23] MEDS: LORATADINE 10 MG TAB PO SCH (07:45)
[2016-10-23] MEDS: PANTOPRAZOLE SOD 40 MG DELAYED RELEASE TAB PO SCH (07:45)
[2016-10-23] MEDS: guaiFENesin E.R. 600 MG TAB PO SCH ×2 (07:45→20:50)
[2016-10-23] MEDS: APIXABAN 5 MG TABLET PO SCH ×2 (07:45→20:50)
[2016-10-23] MEDS: FLUTICASONE PROPIONATE 50 MCG/ACT 16 GM NASAL SPRAY NASAL SCH ×2 (07:46→20:54)
[2016-10-23] MEDS: INSULIN DETEMIR 100 UNITS/ML VIAL SQ SCH ×2 (07:46→20:50)
--- NOTE | 2016-10-23 08:10 | HHI.FPPN ---
Subjective Remarks Pt seen and examined this morning. AFVSS. Pt reports he had 3 episodes of diarrhea but abdominal pain improved. States he is unsure if diarrhea was black or bloody because he didn't look. Denies CP, SOB, N/V. Tolerating PO. Ambulating with PT. Ready to get out of hospital. (Nhung Rg MD) Objective Vitals Vital Signs Date Time Temp Pulse Resp B/P Pulse Ox O2 Delivery O2 Flow Rate FiO2 10/23/16 04:00 98.4 72 20 112/72 92 10/23/16 00:06 93 Nasal Cannula 2.00 10/23/16 00:00 97.9 95 20 110/65 93 10/22/16 20:00 98.6 99 20 106/69 92 10/22/16 20:00 101 10/22/16 20:00 Nasal Cannula 3.00 10/22/16 16:00 98.3 104 22 106/66 93 10/22/16 15:15 95 Nasal Cannula 3.00 10/22/16 12:00 98.6 98 23 107/57 95 10/22/16 09:26 Nasal Cannula 3.00 I/O 10/22/16 10/22/16 10/22/16 10/23/16 10/23/16 10/23/16 07:00 15:00 23:00 07:00 15:00 23:00 Intake Total 360 ml 960 ml 360 ml 360 ml Output Total 650 ml 550 ml 400 ml 450 ml Balance -290 ml 410 ml -40 ml -90 ml Intake Oral 360 ml 960 ml 360 ml 360 ml Output Urine Total 650 ml 550 ml 400 ml 450 ml # Bowel Movements 0 1 1 1 (Nhung Rg MD) Result Diagram: 10/22/1661210/22/16612 Objective Remarks GENERAL: Normally nourished male laying comfortably in bed in no acute distress. SKIN: Warm and dry without rashes. CV: Distant heart sounds. RRR no m/r/g. 2+ pedal pulses. PULM: Poor respiratory effort with diminished breath sounds and bibasilar crackles, R>L. GI: Diminished bowel sounds. Soft, nontender, nondistended. No rebound or guarding. EXTREMITIES: Chronic venous stasis changes of lower extremities. Hypertrophic, thickened nails. No clubbing. No calf tenderness. NEURO: Awake and alert. (Nhung Rg MD) A/P Assessment and Plan 61 year old male with COPD, DM, HTN, and DVT admitted for hospital acquired pneumonia which he completed treatment with Rocephin and Azithromycin. On 10/20, the patient had been having diarrhea and was C. difficile positive. He is medically stable but awaiting SNF placement. Discharge Planning Medically clear for discharge but awaiting [place] authorization for [facility] which will not be processed until after the weekend. PT recommending rehab and patient already coming from [facility] so will be able to return when ready for D/C. Likely will require oxygen on discharge. (Nhung Rg MD) Attending Attestation Patient examined and case discussed with resident physicians I have read the above note and agree with the assessment/plan as discussed with me I was involved in all medical decision making for this patient Jasbir Manzo M.D. (Jasbir Manzo MD) Problem List: (1) Clostridium difficile diarrhea Status: Acute Plan: Patient positive for strain 027. ID already on board for hospital- acquired PNA. - Continue PO Vanc for a total of 14 days (2) Hospital-acquired pneumonia Status: Resolved Plan: Admitted with hospital acquired pneumonia and at time of admission met severe sepsis criteria. Completed 5 day course of Rocephin and Azithromycin) Infectious disease consulted Urine Legionella and pneumococcal antigen negative 10/14 Blood cultures positive for Staph epidermidis, likely contaminant 10/20 blood cultures: No growth to date Sputum culture with normal respiratory kali Continue with incentive spirometer Discontinued antibiotics: -Cefepime (10/14-10/16) -One dose of vanc in the ER on 10/14 -Azithromycin 250mg po (10/17-10/21 ) -Azithromycin 500mg po x1, 10/16 -Ceftriaxone 2,000mg IV Q24H (10/16-10/21 ) Imaging: -Chest x-ray 10/22: Improved aeration at the right lung base. However, continued interstitial opacity at both lung bases. Severe emphysema. -Chest x-ray 10/19: Small right and trace left pleural effusions, stable from prior study. Severe emphysema with stable parenchymal opacity at the right lung apex and nodule in the left midlung zone. Chest x-ray 10/14/16: Right basilar patchiness consistent with atelectasis/ pneumonia. Upper lobe emphysematous changes bilaterally. CTA 10/14/16: No evidence of pulmonary embolism. Scattered nodular infiltrates bilaterally consistent with possible developing pneumonia. Stable severe emphysematous changes and scattered fibrotic scarring bilaterally. Small bilateral pleural effusions with adjacent compressive atelectasis. Minimally prominent prevascular, AP window, pretracheal, right paratracheal, and subcarinal mediastinal lymphadenopathy which is nonspecific. Coronary artery calcifications. Cholelithiasis. CT abdomen and pelvis 10/14/16: Calcifications in the pancreas from chronic pancreatitis without evidence for acute pancreatitis. Small right pleural effusion and bibasilar atelectasis/infiltrate. Cholelithiasis. Fecal impaction. (3) DVT (deep venous thrombosis) Status: Acute Plan: Patient found to have bilateral DVT in previous hospitalization currently on Eliquis. (4) Chronic obstructive pulmonary disease Status: Chronic Plan: Patient with history of chronic obstructive pulmonary disease secondary to extensive smoking history. Supplemental O2 PRN to maintain sats 90-92% Respiratory CPT Respiratory physiotherapy/Acapella Incentive spirometry Smoking cessation counseling; patient states he intends to quit permanently Medications: DuoNeb every 4 hours scheduled Albuterol every 2 hours when necessary dyspnea Pulmicort twice a day Tessalon 200mg Q8H PRN for cough (5) Atrial fibrillation with RVR Status: Chronic Plan: Patient found to have atrial fibrillation with RVR during prior hospitalization. Currently in sinus rhythm and rate-controlled. - Continue Eliquis for anticoagulation (6) Diabetes mellitus, type 2 Status: Chronic Plan: Patient with type 2 diabetes. His home regimen includes Levemir 8 units twice a day with SSI but has been decreased to 4 units BID in the hospital since he was having low sugars. Sliding scale insulin per protocol (7) HTN (hypertension) Status: Acute Plan: Continue home Lisinopril 10 mg daily. (8) GERD (gastroesophageal reflux disease) Status: Chronic Plan: Continue Protonix 40 mg daily (9) Nutrition, metabolism, and development symptoms Status: Acute Plan: - Fluids: Tolerating PO - Electrolytes: WNL. Monitor and replete PRN - Nutrition: ADA - DVT prophylaxis: Eliquis katerin Manzo (Nhung Rg MD) Problem Qualifiers (1) Chronic obstructive pulmonary disease: Qualified Code: J44.1 - Chronic obstructive pulmonary disease with acute exacerbation Nhung Rg MD Oct 23, 2016 08:10 Jasbir Manzo MD Oct 23, 2016 11:06 Problem Qualifiers (1) Chronic obstructive pulmonary disease: Qualified Code: J44.1 - Chronic obstructive pulmonary disease with acute exacerbation (2) Sepsis: Qualified Code: A41.9 - Sepsis, due to unspecified organism Nhung Rg MD Oct 23, 2016 08:10
[2016-10-23] MEDS: LISINOPRIL 10 MG TAB PO SCH (08:47)
[2016-10-23] MEDS: RESP: BUDESONIDE 0.5 MG/2 ML NEB NEB SCH (20:00)
[2016-10-23] MEDS: SODIUM CHLORIDE 0.9% FLUSH 10 ML FLUSH IVF PRN (20:49)
[2016-10-24] VITALS (9 sets, daily range): BP systolic 79–118; BP diastolic 42–68; PULSE 88–97; RESP 16–20; TEMP 98.1–98.7; O2SAT 90–98
[2016-10-24] MEDS: VANCOMYCIN 500 MG VIAL (FOR ORAL USE ONLY) PO SCH ×4 (03:45→21:12)
[2016-10-24] MEDS: RESP: ALBUTEROL 2.5 MG/IPRATROPIUM 0.5 MG NEB (SCH) INH ×5 (04:00→20:00)
[2016-10-24] MEDS: INSULIN ASPART SUPPLEMENTAL SCALE SQ SCH ×4 (06:11→21:12)
[2016-10-24] MEDS: RESP: BUDESONIDE 0.5 MG/2 ML NEB NEB SCH ×2 (07:59→20:00)
[2016-10-24] MEDS: PANTOPRAZOLE SOD 40 MG DELAYED RELEASE TAB PO SCH (09:11)
[2016-10-24] MEDS: APIXABAN 5 MG TABLET PO SCH ×2 (09:11→21:12)
[2016-10-24] MEDS: LORATADINE 10 MG TAB PO SCH (09:11)
[2016-10-24] MEDS: guaiFENesin E.R. 600 MG TAB PO SCH ×2 (09:11→21:12)
[2016-10-24] MEDS: LISINOPRIL 10 MG TAB PO SCH (09:11)
[2016-10-24] MEDS: INSULIN DETEMIR 100 UNITS/ML VIAL SQ SCH ×2 (09:11→21:12)
[2016-10-24] MEDS: FLUTICASONE PROPIONATE 50 MCG/ACT 16 GM NASAL SPRAY NASAL SCH ×2 (09:12→21:00)
--- NOTE | 2016-10-24 09:13 | HHI.FPPN ---
Subjective Remarks Patient feels better than yesterday. His energy is increased. He is getting up to the chair. Has had 2 bowel movements overnight. His pain is improved. Denies vomiting, nausea, fever, chills, shortness of breath. (Omari Mcarthur MD R2) Objective Vitals Vital Signs Date Time Temp Pulse Resp B/P Pulse Ox O2 Delivery O2 Flow Rate FiO2 10/24/16 08:02 98 Nasal Cannula 2.00 10/24/16 04:00 98.1 94 17 118/68 96 10/24/16 00:00 98.7 88 19 91/55 96 10/23/16 21:00 Nasal Cannula 3.00 10/23/16 20:08 94 Nasal Cannula 3.00 10/23/16 20:00 95 10/23/16 20:00 97.8 97 20 92/54 94 10/23/16 16:00 98.5 95 20 102/56 94 10/23/16 12:00 99.1 96 20 84/49 96 I/O 10/23/16 10/23/16 10/23/16 10/24/16 10/24/16 10/24/16 07:00 15:00 23:00 07:00 15:00 23:00 Intake Total 360 ml 840 ml 480 ml 120 ml Output Total 450 ml 725 ml 200 ml Balance -90 ml 115 ml 480 ml -80 ml Intake Oral 360 ml 840 ml 480 ml 120 ml Output Urine Total 450 ml 725 ml 200 ml # Bowel Movements 1 1 1 (Omari Mcarthur MD R2) Result Diagram: 10/22/1661210/22/16612 Objective Remarks GENERAL: Normally nourished male laying comfortably in bed in no acute distress. SKIN: Warm and dry without rashes. CV: Distant heart sounds. RRR no m/r/g. 2+ pedal pulses. PULM: Poor respiratory effort with diminished breath sounds. GI: Diminished bowel sounds. Soft, nontender, nondistended. No rebound or guarding. EXTREMITIES: Chronic venous stasis changes of lower extremities. Hypertrophic, thickened nails. No clubbing. No calf tenderness. NEURO: Awake and alert. (Omari Mcarthur MD R2) A/P Assessment and Plan 61 year old male with COPD, DM, HTN, and DVT admitted for hospital acquired pneumonia which he completed treatment with Rocephin and Azithromycin. On 10/20, the patient had been having diarrhea and was C. difficile positive. He is medically stable but awaiting SNF placement. Discharge Planning Medically clear for discharge but awaiting [place] authorization for [facility] which will not be processed until after the weekend. PT recommending rehab and patient already coming from [facility] so will be able to return when ready for D/C. Likely will require oxygen on discharge. (Omari Mcarthur MD R2) Attending Attestation Pt. examined and case discussed with resident physician I have read the above note and agree with the assessment/plan as discussed with me I was involved in all medical decision making for this patient Jasbir Manzo MD (Jasbir Manzo MD) Problem List: (1) Clostridium difficile diarrhea Status: Acute Plan: Patient positive for strain 027. ID already on board for hospital- acquired PNA. - Continue PO Vanc for a total of 14 days (started 10/21) (2) DVT (deep venous thrombosis) Status: Acute Plan: Patient found to have bilateral DVT in previous hospitalization currently on Eliquis. (3) Chronic obstructive pulmonary disease Status: Chronic Plan: Patient with history of chronic obstructive pulmonary disease secondary to extensive smoking history. Supplemental O2 PRN to maintain sats 90-92% Respiratory CPT Respiratory physiotherapy/Acapella Incentive spirometry Smoking cessation counseling; patient states he intends to quit permanently Medications: DuoNeb every 4 hours scheduled Albuterol every 2 hours when necessary dyspnea Pulmicort twice a day Tessalon 200mg Q8H PRN for cough (4) Atrial fibrillation with RVR Status: Chronic Plan: Patient found to have atrial fibrillation with RVR during prior hospitalization. Currently in sinus rhythm and rate-controlled. - Continue Eliquis for anticoagulation (5) Diabetes mellitus, type 2 Status: Chronic Plan: Patient with type 2 diabetes. His home regimen includes Levemir 8 units twice a day with SSI but has been decreased to 4 units BID in the hospital since he was having low sugars. Sliding scale insulin per protocol (6) HTN (hypertension) Status: Acute Plan: Continue home Lisinopril 10 mg daily. (7) GERD (gastroesophageal reflux disease) Status: Chronic Plan: Continue Protonix 40 mg daily (8) Nutrition, metabolism, and development symptoms Status: Acute Plan: - Fluids: Tolerating PO - Electrolytes: WNL. Monitor and replete PRN - Nutrition: ADA - DVT prophylaxis: Eliqucarmencita Manzo (9) Hospital-acquired pneumonia Status: Resolved Plan: Admitted with hospital acquired pneumonia and at time of admission met severe sepsis criteria. Completed 5 day course of Rocephin and Azithromycin) Infectious disease consulted Urine Legionella and pneumococcal antigen negative 10/14 Blood cultures positive for Staph epidermidis, likely contaminant 10/20 blood cultures: No growth to date Sputum culture with normal respiratory kali Continue with incentive spirometer Discontinued antibiotics: -Cefepime (10/14-10/16) -One dose of vanc in the ER on 10/14 -Azithromycin 250mg po (10/17-10/21 ) -Azithromycin 500mg po x1, 10/16 -Ceftriaxone 2,000mg IV Q24H (10/16-10/21 ) Imaging: -Chest x-ray 10/22: Improved aeration at the right lung base. However, continued interstitial opacity at both lung bases. Severe emphysema. -Chest x-ray 10/19: Small right and trace left pleural effusions, stable from prior study. Severe emphysema with stable parenchymal opacity at the right lung apex and nodule in the left midlung zone. Chest x-ray 10/14/16: Right basilar patchiness consistent with atelectasis/ pneumonia. Upper lobe emphysematous changes bilaterally. CTA 10/14/16: No evidence of pulmonary embolism. Scattered nodular infiltrates bilaterally consistent with possible developing pneumonia. Stable severe emphysematous changes and scattered fibrotic scarring bilaterally. Small bilateral pleural effusions with adjacent compressive atelectasis. Minimally prominent prevascular, AP window, pretracheal, right paratracheal, and subcarinal mediastinal lymphadenopathy which is nonspecific. Coronary artery calcifications. Cholelithiasis. CT abdomen and pelvis 10/14/16: Calcifications in the pancreas from chronic pancreatitis without evidence for acute pancreatitis. Small right pleural effusion and bibasilar atelectasis/infiltrate. Cholelithiasis. Fecal impaction. (Omari Mcarthur MD R2) Problem Qualifiers (1) Chronic obstructive pulmonary disease: Qualified Code: J44.1 - Chronic obstructive pulmonary disease with acute exacerbation Omari Mcarthur MD R2 Oct 24, 2016 09:13 Jasbir Manzo MD Oct 24, 2016 21:24
[2016-10-24 10:41] LABS: AUTOMATED NEUTROPHIL # 10.5 TH/MM3 (1.8-7.7); BASOPHIL # 0.1 TH/MM3 (0-0.2); BASOPHIL % 0.7 % (0.0-2.0); EOSINOPHIL # 0.1 TH/MM3 (0-0.4); EOSINOPHIL % 0.8 % (0.0-4.0); HEMATOCRIT 35.6 % (39.0-51.0); HEMO FLAGS DIFF FINAL; LYMPH % 16.8 % (9.0-44.0); LYMPHOCYTE # 2.4 TH/MM3 (1.0-4.8); MEAN CELL VOLUME 89.7 FL (80.0-100.0); MEAN CORPUSCULAR HEMOGLOBIN 29.4 PG (27.0-34.0); MEAN CORPUSCULAR HGB CONC 32.8 % (32.0-36.0); MONO % 8.5 % (0.0-8.0); NEUT % 73.2 % (16.0-70.0); PLATELET COUNT 471 TH/MM3 (150-450); RED BLOOD COUNT 3.97 MIL/MM3 (4.50-5.90); RED CELL DISTRIBUTION WIDTH 17.7 % (11.6-17.2); WHITE BLOOD COUNT 14.3 TH/MM3 (4.0-11.0)
[2016-10-25] VITALS (8 sets, daily range): BP systolic 111–122; BP diastolic 58–71; PULSE 89–98; RESP 18–20; TEMP 97.9–98.9; O2SAT 91–95
[2016-10-25] MEDS: RESP: ALBUTEROL 2.5 MG/IPRATROPIUM 0.5 MG NEB (SCH) INH ×4 (00:50→12:00)
[2016-10-25] MEDS: VANCOMYCIN 500 MG VIAL (FOR ORAL USE ONLY) PO SCH ×3 (03:43→16:31)
[2016-10-25] MEDS: INSULIN ASPART SUPPLEMENTAL SCALE SQ SCH ×3 (06:02→16:00)
[2016-10-25] MEDS: RESP: BUDESONIDE 0.5 MG/2 ML NEB NEB SCH (07:54)
[2016-10-25] MEDS: LISINOPRIL 10 MG TAB PO SCH (08:04)
[2016-10-25] MEDS: PANTOPRAZOLE SOD 40 MG DELAYED RELEASE TAB PO SCH (08:04)
[2016-10-25] MEDS: SODIUM CHLORIDE 0.9% FLUSH 10 ML FLUSH IVF PRN (08:04)
[2016-10-25] MEDS: LORATADINE 10 MG TAB PO SCH (08:04)
[2016-10-25] MEDS: INSULIN DETEMIR 100 UNITS/ML VIAL SQ SCH (08:05)
[2016-10-25] MEDS: guaiFENesin E.R. 600 MG TAB PO SCH (08:05)
[2016-10-25] MEDS: APIXABAN 5 MG TABLET PO SCH (08:05)
[2016-10-25] MEDS: FLUTICASONE PROPIONATE 50 MCG/ACT 16 GM NASAL SPRAY NASAL SCH (08:06)
[2016-10-25 08:45] LABS: AUTOMATED NEUTROPHIL # 8.7 TH/MM3 (1.8-7.7); BASOPHIL # 0.1 TH/MM3 (0-0.2); EOSINOPHIL # 0.1 TH/MM3 (0-0.4); EOSINOPHIL % 0.6 % (0.0-4.0); HEMATOCRIT 35.4 % (39.0-51.0); HEMO FLAGS DIFF FINAL; LYMPH % 18.5 % (9.0-44.0); LYMPHOCYTE # 2.3 TH/MM3 (1.0-4.8); MEAN CELL VOLUME 89.5 FL (80.0-100.0); MEAN CORPUSCULAR HEMOGLOBIN 29.7 PG (27.0-34.0); MEAN CORPUSCULAR HGB CONC 33.2 % (32.0-36.0); MONO % 9.1 % (0.0-8.0); NEUT % 70.8 % (16.0-70.0); PLATELET COUNT 454 TH/MM3 (150-450); RED BLOOD COUNT 3.95 MIL/MM3 (4.50-5.90); RED CELL DISTRIBUTION WIDTH 17.4 % (11.6-17.2); WHITE BLOOD COUNT 12.2 TH/MM3 (4.0-11.0)
[2016-10-25 09:15] LABS: ALKALINE PHOSPHATASE 102 U/L (45-117); ALT (GPT) 21 U/L (12-78); ANION GAP 10 MEQ/L (5-15); AST (GOT) 20 U/L (15-37); BICARBONATE 29.2 MEQ/L (21.0-32.0); BLOOD UREA NITROGEN 8 MG/DL (7-18); CHLORIDE 96 MEQ/L (98-107); GLOMERULAR FILTRATION RATE 347 ML/MIN (>89); POTASSIUM 3.9 MEQ/L (3.5-5.1); SODIUM (NA) 135 MEQ/L (136-145); TOTAL BILIRUBIN ADULT 0.3 MG/DL (0.2-1.0)
--- NOTE | 2016-10-25 09:42 | HHI.FPPN ---
Subjective Remarks Patient seen and examined this morning. Vitals are stable and afebrile. Saturating 94% on 3 L by nasal cannula. States he is doing well. Continues to have loose stools. Tolerating his diet. (Janey Dunlap MD R3) Objective Vitals Vital Signs Date Time Temp Pulse Resp B/P Pulse Ox O2 Delivery O2 Flow Rate FiO2 10/25/16 08:00 98.7 90 20 117/65 94 10/25/16 07:54 92 Nasal Cannula 3.00 10/25/16 04:00 97.9 91 18 122/71 91 10/25/16 00:51 92 Nasal Cannula 3.00 10/25/16 00:00 98.1 89 19 111/58 92 10/24/16 20:00 98.4 94 18 99/59 90 10/24/16 20:00 Nasal Cannula 2.00 10/24/16 20:00 93 10/24/16 16:00 98.5 92 20 79/42 94 10/24/16 15:31 96 Nasal Cannula 2.00 10/24/16 12:00 98.5 97 16 81/54 96 I/O 10/24/16 10/24/16 10/24/16 10/25/16 10/25/16 10/25/16 07:00 15:00 23:00 07:00 15:00 23:00 Intake Total 120 ml 960 ml 720 ml Output Total 200 ml 500 ml 500 ml Balance -80 ml 460 ml 220 ml Intake Oral 120 ml 960 ml 720 ml Output Urine Total 200 ml 500 ml 500 ml # Bowel Movements 0 (Janey Dunlap MD R3) Result Diagram: 10/25/16 0638 10/25/16 0638 Imaging Last Impressions Chest X-Ray 10/22/16 0600 Signed Impressions: Service Date/Time: Saturday, October 22, 2016 06:09 - CONCLUSION: 1. Improved aeration at the right lung base. However, there is continued interstitial opacity at both lung bases. 2. Background lung changes characteristic of emphysema. Gumaro Brown MD CT Angiography 10/14/16 1205 Signed Impressions: Service Date/Time: September 13:05 - CONCLUSION: 1. No evidence of pulmonary embolism. 2. Scattered nodular infiltrates bilaterally consistent with possible developing pneumonia. Clinical correlation is recommended. 3. Stable severe emphysematous changes and scattered fibrotic scarring bilaterally. 4. Small bilateral pleural effusions with adjacent compressive atelectasis. 5. Minimally prominent prevascular, AP window, pretracheal, right paratracheal and subcarinal mediastinal lymphadenopathy which is nonspecific. 6. Coronary artery calcifications. 7. Cholelithiasis. Jostin Crow MD Abdomen/Pelvis CT 10/14/16 0000 Signed Impressions: Service Date/Time: September 13:09 - CONCLUSION: 1. Calcifications in the pancreas from chronic pancreatitis without evidence for acute pancreatitis. 2. Small right pleural effusion and bibasilar atelectasis and/or infiltrate. 3. Cholelithiasis. 4. Fecal impaction. Anthony Baird MD Objective Remarks GENERAL: Normally nourished male laying comfortably in bed in no acute distress. SKIN: Warm and dry without rashes. CV: Distant heart sounds. RRR no m/r/g. 2+ pedal pulses. PULM: Poor respiratory effort with diminished breath sounds. GI: Diminished bowel sounds. Soft, nontender, nondistended. No rebound or guarding. EXTREMITIES: Chronic venous stasis changes of lower extremities. Hypertrophic, thickened nails. No clubbing. No calf tenderness. NEURO: Awake and alert. (Janey Dunlap MD R3) A/P Assessment and Plan 61 year old male with COPD, DM, HTN, and DVT admitted for hospital acquired pneumonia which he completed treatment with Rocephin and Azithromycin. On 10/20, the patient had been having diarrhea and was C. difficile positive. He is medically stable but awaiting SNF placement. Discharge Planning Medically clear for discharge to [facility]. Oxygen walk test pending. Discussed with Dr. Manzo (Janey Dunlap MD R3) Attending Attestation Pt. examined and case discussed with resident physicians I have read the above note and agree with the assessment/plan as discussed with me I was involved in all medical decision making for this patient Jasbir Manzo MD (Jasbir Manzo MD) Problem List: (1) Clostridium difficile diarrhea Status: Acute Plan: Patient positive for strain 027. ID already on board for hospital-acquired PNA. - Continue PO Vanc for a total of 14 days (started 10/21) (2) DVT (deep venous thrombosis) Status: Acute Plan: Patient found to have bilateral DVT in previous hospitalization currently on Eliquis. (3) Chronic obstructive pulmonary disease Status: Chronic Plan: Patient with history of chronic obstructive pulmonary disease secondary to extensive smoking history. Supplemental O2 PRN to maintain sats 90-92% Respiratory CPT Respiratory physiotherapy/Acapella Incentive spirometry Smoking cessation counseling; patient states he intends to quit permanently Medications: DuoNeb every 4 hours scheduled Albuterol every 2 hours when necessary dyspnea Pulmicort twice a day Tessalon 200mg Q8H PRN for cough (4) Atrial fibrillation with RVR Status: Chronic Plan: Patient found to have atrial fibrillation with RVR during prior hospitalization. Currently in sinus rhythm and rate-controlled. - Continue Eliquis for anticoagulation (5) Diabetes mellitus, type 2 Status: Chronic Plan: Patient with type 2 diabetes. His home regimen includes Levemir 8 units twice a day with SSI but has been decreased to 4 units BID in the hospital since he was having low sugars. Sliding scale insulin per protocol (6) HTN (hypertension) Status: Acute Plan: Continue home Lisinopril 10 mg daily. (7) GERD (gastroesophageal reflux disease) Status: Chronic Plan: Continue Protonix 40 mg daily (8) Nutrition, metabolism, and development symptoms Status: Acute Plan: - Fluids: Tolerating PO - Electrolytes: WNL. Monitor and replete PRN - Nutrition: ADA - DVT prophylaxis: Justina Manzo (9) Hospital-acquired pneumonia Status: Resolved Plan: Admitted with hospital acquired pneumonia and at time of admission met severe sepsis criteria. Completed 5 day course of Rocephin and Azithromycin) Infectious disease consulted Urine Legionella and pneumococcal antigen negative 10/14 Blood cultures positive for Staph epidermidis, likely contaminant 10/20 blood cultures: No growth to date Sputum culture with normal respiratory kali Continue with incentive spirometer Discontinued antibiotics: -Cefepime (10/14-10/16) -One dose of vanc in the ER on 10/14 -Azithromycin 250mg po (10/17-10/21 ) -Azithromycin 500mg po x1, 10/16 -Ceftriaxone 2,000mg IV Q24H (10/16-10/21 ) Imaging: -Chest x-ray 10/22: Improved aeration at the right lung base. However, continued interstitial opacity at both lung bases. Severe emphysema. -Chest x-ray 10/19: Small right and trace left pleural effusions, stable from prior study. Severe emphysema with stable parenchymal opacity at the right lung apex and nodule in the left midlung zone. Chest x-ray 10/14/16: Right basilar patchiness consistent with atelectasis/ pneumonia. Upper lobe emphysematous changes bilaterally. CTA 10/14/16: No evidence of pulmonary embolism. Scattered nodular infiltrates bilaterally consistent with possible developing pneumonia. Stable severe emphysematous changes and scattered fibrotic scarring bilaterally. Small bilateral pleural effusions with adjacent compressive atelectasis. Minimally prominent prevascular, AP window, pretracheal, right paratracheal, and subcarinal mediastinal lymphadenopathy which is nonspecific. Coronary artery calcifications. Cholelithiasis. CT abdomen and pelvis 10/14/16: Calcifications in the pancreas from chronic pancreatitis without evidence for acute pancreatitis. Small right pleural effusion and bibasilar atelectasis/infiltrate. Cholelithiasis. Fecal impaction. (Janey Dunlap MD R3) Problem Qualifiers (1) Chronic obstructive pulmonary disease: Qualified Code: J44.1 - Chronic obstructive pulmonary disease with acute exacerbation Janey Dunlap MD R3 October 25, 2016 09:41 Jasbir Manzo MD October 25, 2016 16:09
[2016-10-25] MEDS ORDERED: VANC500I3 PO (13:07)
--- NOTE | 2016-11-11 06:39 | HHI.DS ---
Discharge Summary Admission Date Oct 14, 2016 at 14:56 Discharge Date: October 25, 2016 Admitting Diagnosis sepsis, pneumonia, hypoxia (1) Clostridium difficile diarrhea Diagnosis: Principal Plan: Patient positive for strain 027. ID already on board for hospital-acquired PNA. - Continue PO Vanc for a total of 14 days (started 10/21) (2) DVT (deep venous thrombosis) Diagnosis: Secondary Plan: Patient found to have bilateral DVT in previous hospitalization currently on Eliquis. (3) Chronic obstructive pulmonary disease Diagnosis: Secondary Plan: Patient with history of chronic obstructive pulmonary disease secondary to extensive smoking history. Supplemental O2 PRN to maintain sats 90-92% Respiratory CPT Respiratory physiotherapy/[place] Incentive spirometry Smoking cessation counseling; patient states he intends to quit permanently Medications: DuoNeb every 4 hours scheduled Albuterol every 2 hours when necessary dyspnea Pulmicort twice a day Tessalon 200mg Q8H PRN for cough (4) Atrial fibrillation with RVR Diagnosis: Principal Plan: Patient found to have atrial fibrillation with RVR during prior hospitalization. Currently in sinus rhythm and rate-controlled. - Continue Eliquis for anticoagulation (5) Diabetes mellitus, type 2 Diagnosis: Secondary Plan: Patient with type 2 diabetes. His home regimen includes Levemir 8 units twice a day with SSI but has been decreased to 4 units BID in the hospital since he was having low sugars. Sliding scale insulin per protocol (6) HTN (hypertension) Diagnosis: Secondary Plan: Continue home Lisinopril 10 mg daily. (7) GERD (gastroesophageal reflux disease) Diagnosis: Secondary Plan: Continue Protonix 40 mg daily (8) Nutrition, metabolism, and development symptoms Diagnosis: Secondary Plan: - Fluids: Tolerating PO - Electrolytes: WNL. Monitor and replete PRN - Nutrition: ADA - DVT prophylaxis: Justina Manzo (9) Hospital-acquired pneumonia Diagnosis: Principal Plan: Admitted with hospital acquired pneumonia and at time of admission met severe sepsis criteria. Completed 5 day course of Rocephin and Azithromycin) Infectious disease consulted Urine Legionella and pneumococcal antigen negative 10/14 Blood cultures positive for Staph epidermidis, likely contaminant 10/20 blood cultures: No growth to date Sputum culture with normal respiratory kali Continue with incentive spirometer Discontinued antibiotics: -Cefepime (10/14-10/16) -One dose of vanc in the ER on 10/14 -Azithromycin 250mg po (10/17-10/21 ) -Azithromycin 500mg po x1, 10/16 -Ceftriaxone 2,000mg IV Q24H (10/16-10/21 ) Imaging: -Chest x-ray 10/22: Improved aeration at the right lung base. However, continued interstitial opacity at both lung bases. Severe emphysema. -Chest x-ray 10/19: Small right and trace left pleural effusions, stable from prior study. Severe emphysema with stable parenchymal opacity at the right lung apex and nodule in the left midlung zone. Chest x-ray 10/14/16: Right basilar patchiness consistent with atelectasis/ pneumonia. Upper lobe emphysematous changes bilaterally. CTA 10/14/16: No evidence of pulmonary embolism. Scattered nodular infiltrates bilaterally consistent with possible developing pneumonia. Stable severe emphysematous changes and scattered fibrotic scarring bilaterally. Small bilateral pleural effusions with adjacent compressive atelectasis. Minimally prominent prevascular, AP window, pretracheal, right paratracheal, and subcarinal mediastinal lymphadenopathy which is nonspecific. Coronary artery calcifications. Cholelithiasis. CT abdomen and pelvis 10/14/16: Calcifications in the pancreas from chronic pancreatitis without evidence for acute pancreatitis. Small right pleural effusion and bibasilar atelectasis/infiltrate. Cholelithiasis. Fecal impaction. Consultants Infectious disease Brief History 61-year-old male presenting from his rehabilitation facility for hypoxia and shortness of breath. He states that he was somewhat confused this morning and felt short of breath after breathing treatment as rehabilitation facility. EMS was called and he was found to have oxygen saturations in the 80s at which point he was given a breathing treatment and placed on supplemental oxygen with improvement of his oxygenation to 97%. He was brought to the emergency department for further evaluation of his hypoxic episode and altered mental status this morning. He does endorse recent shortness of breath with a productive cough of white sputum, fatigue, and subjective chills. He denies any fevers, denies any chest pain or palpitations, denies any nausea or vomiting , denies any diaphoresis. He has a past medical history significant for recent extended hospital stay () for pancreatitis and a small bowel obstruction requiring expiratory laparotomy with lysis of adhesions and subsequently developed respiratory failure requiring intubation and was monitored in the [facility]. He developed bilateral lower extremity DVTs while hospitalized and was begun on anticoagulant , eventually discharged on Eliquis. He also developed A. fib with RVR while hospitalized that was managed with amiodarone that was eventually discontinued and he was treated with anticoagulation, discharged on Eliquis. He was discharged from [facility] on 10/06/16 and seem to be doing well at his facility to this morning. Imaging Last Impressions Chest X-Ray 10/22/16 0600 Signed Impressions: Service Date/Time: Saturday, October 22, 2016 06:09 - CONCLUSION: 1. Improved aeration at the right lung base. However, there is continued interstitial opacity at both lung bases. 2. Background lung changes characteristic of emphysema. Gumaro Brown MD CT Angiography 10/14/16 1205 Signed Impressions: Service Date/Time: September 13:05 - CONCLUSION: 1. No evidence of pulmonary embolism. 2. Scattered nodular infiltrates bilaterally consistent with possible developing pneumonia. Clinical correlation is recommended. 3. Stable severe emphysematous changes and scattered fibrotic scarring bilaterally. 4. Small bilateral pleural effusions with adjacent compressive atelectasis. 5. Minimally prominent prevascular, AP window, pretracheal, right paratracheal and subcarinal mediastinal lymphadenopathy which is nonspecific. 6. Coronary artery calcifications. 7. Cholelithiasis. Jostin Crow MD Abdomen/Pelvis CT 10/14/16 0000 Signed Impressions: Service Date/Time: September 13:09 - CONCLUSION: 1. Calcifications in the pancreas from chronic pancreatitis without evidence for acute pancreatitis. 2. Small right pleural effusion and bibasilar atelectasis and/or infiltrate. 3. Cholelithiasis. 4. Fecal impaction. Anthony Baird MD PE at Discharge GENERAL: Normally nourished male laying comfortably in bed in no acute distress. SKIN: Warm and dry without rashes. CV: Distant heart sounds. RRR no m/r/g. 2+ pedal pulses. PULM: Poor respiratory effort with diminished breath sounds. GI: Diminished bowel sounds. Soft, nontender, nondistended. No rebound or guarding. EXTREMITIES: Chronic venous stasis changes of lower extremities. Hypertrophic, thickened nails. No clubbing. No calf tenderness. NEURO: Awake and alert. Hospital Course This patient with significant chronic comorbid conditions including COPD, diabetes, DVT 2 in the past did fairly well during his hospital course. Infectious disease was consulted and helped with antibiotic management for his COPD exacerbation and Clostridium difficile infection. The C. difficile infection was positive for strain 027 and it was recommended he take 14 days total of by mouth vancomycin. This was continued at discharge. His atrial fibrillation was controlled and he was in sinus rhythm on discharge. He will continue his anticoagulation which he is already on. The patient did meet criteria to go to rehabilitation facility at discharge. He was discharged to [facility]. Pt Condition on Discharge: Fair Discharge Disposition: Discharge to SNF Discharge Instructions DIET: Follow Instructions for: As Tolerated, No Restrictions Activities you can perform: Weight Bearing as Oren Other Activity Instructions: per PT Follow up Referrals: PCP Follow-up - 1 Week SNF/[facility]/ with [facility] New Medications: Vancomycin Inj (Vancomycin Inj) 500 Mg Inj 500 MG PO Q6H #48 INJECTION Continued Medications: Albuterol Neb (Albuterol Neb) 2.5 Mg/3 Ml Neb 2.5 MG NEB Q4HR NEB PRN dyspnea #1 Ref 0 NEBULE Apixaban (Eliquis) 5 Mg Tab 5 MG PO BID Blood Clot Prevention #60 Ref 0 TAB Budesonide Neb (Pulmicort Respules) 0.5 Mg/2 Ml Neb 0.5 MG NEB Q12HR NEB Shortness of Breath #1 Ref 0 VIAL Fluticasone Nasal [place] (Fluticasone Nasal [place]) 50 Mcg/Act Naspr 1 SPRAY NASAL BID allergies #1 Ref 0 BOTTLE Guaifenesin ER 12 HR (Mucinex ER 12 HR) 600 Mg [place] 600 MG PO BID congestioon #20 Ref 0 TAB Hydrocodone-Acetaminophen ([place]) 5-325 mg Tab 1-2 TAB PO Q6H PRN PAIN #30 Ref 0 TAB Insulin Detemir Inj (Levemir Inj) 1,000 unit/ 10 ML Vial 8 UNITS SQ Q12HR diabetes #1 Ref 0 VIAL Insulin Human Regular Inj (Novolin R Inj) 1,000 Unit/10 Ml Vial 1 UNIT SQ ACHS SLIDING SCALE diabetes #1 Ref 0 VIAL Lisinopril (Lisinopril) 10 Mg Tab 10 MG PO DAILY #30 Ref 0 TAB Loratadine (Claritin) 10 Mg Tab 10 MG PO DAILY allergies #30 Ref 0 TAB Magnesium Hydroxide Liq (Milk of Magnesia Liq) 400 Mg/5 Ml Susp 30 ML PO Q12H PRN CONSTIPATION #200 Ref 0 ML Discontinued Medications: Prednisone (Prednisone) 20 Mg Tab 20 MG PO BID 20 mg by mouth twice a day for 4 days then 10 mg by mouth twice a day for 3 days then 5 mg by mouth twice a day for 3 day. COPD exacerbation Days 9 Ref 0 TAB Quetiapine (Quetiapine) 25 Mg Tab 25 MG PO DAILY agitation #15 Ref 0 TAB Quetiapine (Quetiapine) 100 Mg Tab 50 MG PO HS consider weaning off agitation #15 Ref 0 TAB Omari Mcarthur MD R2 November 11, 2016 06:39
== END 2016-10-25 18:40 | DRG 871 ==
LOC: NEPE 11:51 → NEDA 14:56 → N04A 20:52
PROVIDERS: ADMIT Family Medicine; ATTEND Family Medicine
DX: A41.9 Sepsis, unspecified organism (principal); J18.9 Pneumonia, unspecified organism; J90 Pleural effusion, not elsewhere classified; A04.7 Enterocolitis due to Clostridium difficile; I82.403 Acute embolism and thrombosis of unspecified deep veins of lower extremity, bilateral; D69.6 Thrombocytopenia, unspecified; J44.0 Chronic obstructive pulmonary disease with (acute) lower respiratory infection; K86.1 Other chronic pancreatitis; I48.91 Unspecified atrial fibrillation; J44.1 Chronic obstructive pulmonary disease with (acute) exacerbation; J98.11 Atelectasis; E11.9 Type 2 diabetes mellitus without complications; K80.20 Calculus of gallbladder without cholecystitis without obstruction; K56.41 Fecal impaction; I10 Essential (primary) hypertension; K21.9 Gastro-esophageal reflux disease without esophagitis; E87.6 Hypokalemia; R65.20 Severe sepsis without septic shock; I25.10 Atherosclerotic heart disease of native coronary artery without angina pectoris; R59.0 Localized enlarged lymph nodes; R09.02 Hypoxemia; T36.1X5A Adverse effect of cephalosporins and other beta-lactam antibiotics, initial encounter; F17.210 Nicotine dependence, cigarettes, uncomplicated; Y92.239 Unspecified place in hospital as the place of occurrence of the external cause; Y95 Nosocomial condition; Z16.30 Resistance to unspecified antimicrobial drugs; Z79.01 Long term (current) use of anticoagulants; Z79.4 Long term (current) use of insulin; Z86.14 Personal history of Methicillin resistant Staphylococcus aureus infection; Z86.718 Personal history of other venous thrombosis and embolism; Z88.0 Allergy status to penicillin
CPT/HCPCS: 36600; 71010; 71020; 71275; 74177; 80048; 80053; 81001; 82805; 82948; 83605; 83690; 83735; 83880; 84155; 84484; 85007; 85025; 85027; 85610; 86403; 87040; 87070; 87205; 87449; 87493; 93005; 94150; 94620; 94640; 94664; 94667; 94668; 96365; 96367; 96375; J0692; J0696; J1815; J2270; J2543; J2930; J3370; J7030; J7050; J7626; Q9967

== ENCOUNTER 2017-05-29 13:53 | Observation (INO) | payer OTHER ==
[~2017-05-29] VITALS: Ht 182.9 cm; Wt 69.3 kg
[2017-05-29] VITALS (7 sets, daily range): BP systolic 131–188; BP diastolic 72–82; PULSE 78–83; RESP 16–18; TEMP 98–98.4; O2SAT 93–98
[~2017-05-29 13:53] MED LIST changes: -GLIP10TA6 PO; -PRED20 PO; -QUET1TAB7 PO; -QUET1TAB8 PO; +VANC500I3 PO
[2017-05-29] MEDS ORDERED: blood pressure pill (14:15)
[2017-05-29] MEDS ORDERED: [UNRECOGNIZED DRUG - REMARK] (14:15)
[2017-05-29] MEDS ORDERED: cholesterol pill (14:15)
[2017-05-29] MEDS ORDERED: methylPREDNISolone SOD SUCC 125 MG/2 ML VIAL IV PUSH ONE (14:45)
[2017-05-29] MEDS ORDERED: MORPHINE SULFATE 4 MG/ML INJ IV PUSH ONE (14:45)
[2017-05-29] MEDS ORDERED: SODIUM CHLORIDE 0.9% FLUSH 10 ML FLUSH IVF PRN (14:45)
[2017-05-29] MEDS ORDERED: RESP: ALBUTEROL 2.5 MG/IPRATROPIUM 0.5 MG NEB (SCH) NEB ONE (14:45)
[2017-05-29 15:25] LABS: AUTOMATED NEUTROPHIL # 7.7 TH/MM3 (1.8-7.7); BASOPHIL # 0.1 TH/MM3 (0-0.2); BASOPHIL % 0.9 % (0.0-2.0); EOSINOPHIL # 0.3 TH/MM3 (0-0.4); EOSINOPHIL % 2.2 % (0.0-4.0); HEMATOCRIT 48.3 % (39.0-51.0); HEMO FLAGS DIFF FINAL; LYMPH % 24.7 % (9.0-44.0); LYMPHOCYTE # 2.9 TH/MM3 (1.0-4.8); MEAN CELL VOLUME 84.6 FL (80.0-100.0); MEAN CORPUSCULAR HGB CONC 33.2 % (32.0-36.0); MONO % 7.7 % (0.0-8.0); NEUT % 64.5 % (16.0-70.0); PLATELET COUNT 291 TH/MM3 (150-450); RED BLOOD COUNT 5.71 MIL/MM3 (4.50-5.90); RED CELL DISTRIBUTION WIDTH 15.2 % (11.6-17.2); WHITE BLOOD COUNT 11.9 TH/MM3 (4.0-11.0)
--- NOTE | 2017-05-29 15:29 | RADRPT ---
EXAM DATE/TIME: 05/29/2017 14:45 [facility] COMPARISON: CHEST SINGLE AP, October 22, 2016, 6:09. INDICATIONS : Chest pain MEDICAL HISTORY : Hypertension. Diabetes mellitus type II. SURGICAL HISTORY : None. ENCOUNTER: Initial ACUITY: 3 days PAIN SCORE: 4/10 LOCATION: chest FINDINGS: Improved aeration in the lower lobes bilaterally. Persistent diffuse interstitial opacities with biap ical bullous change. Cardiomediastinal contours are within normal limits. Bony thorax is intact. CONCLUSION: 1. Changes of obstructive pulmonary disease with biapical bullous change. 2. No acute abnormality or significant interval change. Feliberto Duong MD on May 29, 2017 at 15:25 Board Certified Radiologist. This report was verified electronically.
[2017-05-29 15:41] LABS: ANION GAP 10 MEQ/L (5-15); AST (GOT) 75 U/L (15-37); BICARBONATE 28.1 MEQ/L (21.0-32.0); BLOOD UREA NITROGEN 12 MG/DL (7-18); CHLORIDE 97 MEQ/L (98-107); GLOMERULAR FILTRATION RATE 170 ML/MIN (>89); POTASSIUM 3.6 MEQ/L (3.5-5.1); SODIUM (NA) 135 MEQ/L (136-145)
[2017-05-29 15:47] LABS: ALKALINE PHOSPHATASE 159 U/L (45-117); ALT (GPT) 32 U/L (12-78); TOTAL BILIRUBIN ADULT 0.4 MG/DL (0.2-1.0)
[2017-05-29] MEDS ORDERED: IOHEXOL 350 MG/ML 10 ML VIAL (for RAD DIAG) IVCONTRAST ONE (17:29)
--- NOTE | 2017-05-29 17:39 | PD ---
HPI Chief Complaint: Chest Pain Time Seen by Provider: 14:29 Travel History International Travel<30 days: No Contact w/Intl Traveler<30days: No Traveled to known affect area: No History of Present Illness HPI This is a 62-year-old male who presents to the emergency department with 4 days of left-sided chest pain, constant, worse with sitting forward and sitting up, improved with laying back, associated with some shortness of breath with no fevers or chills. Patient denies any fevers or chills. He has had some productive cough with clear sputum. His pain is nonradiating. PFSH Past Medical History Arthritis: No Asthma: No Atrial Fibrillation: Yes Autoimmune Disease: No Blood Disorders: No Anxiety: No Depression: No Heart Rhythm Problems: Yes Cancer: No Cardiovascular Problems: Yes High Cholesterol: Yes Chemotherapy: No Chest Pain: No Congestive Heart Failure: Yes COPD: Yes Cerebrovascular Accident: No Diabetes: Yes Patient Takes Glucophage: No Diminished Hearing: No Endocrine: Yes Gastrointestinal Disorders: Yes GERD: Yes Genitourinary: No Headaches: Yes Hiatal Hernia: No Hypertension: Yes Immune Disorder: No Implanted Vascular Access Dvce: Yes Kidney Stones: No Musculoskeletal: No Neurologic: No Psychiatric: No Reproductive: No Respiratory: Yes Immunizations Current: Yes Migraines: No Pancreatitis: Yes Pneumonia: Yes Radiation Therapy: No Renal Failure: No Seizures: No Sickle Cell Disease: No Sleep Apnea: No Thyroid Disease: No Ulcer: No Tetanus Vaccination: > 5 Years Influenza Vaccination: No Past Surgical History Abdominal Surgery: Yes ("STENT IN SPLEEN" 10 yrs ago,abd surgery 08/2016) AICD: No Arteriovenous Shunt: No Body Medical Devices: "STENT IN SPLEEN" Cardiac Surgery: No Ear Surgery: No Endocrine Surgery: No Eye Surgery: No Genitourinary Surgery: No Gynecologic Surgery: No Insulin Pump: No Joint Replacement: No Neurologic Surgery: No Oral Surgery: No Pacemaker: No Thoracic Surgery: No Other Surgery: Yes (BACK SURGERY 25 YEARS AGO) Social History Alcohol Use: No Tobacco Use: Yes (06/30 ppd) Substance Use: No Allergies-Medications (Allergen,Severity, Reaction): Coded Allergies: penicillin G (Unverified Allergy, Severe, SWELLING, 05/29/17) has tolerated Cephalosporins in previous admissions *MDRO Multi-Drug Resistant Organism (Verified Adverse Reaction, Unknown, 05/29/17) Hx MRSA Sputum 2006, Wounds 2003 MRSA PCR Screen negative 6/1/15 & 09/10/15. Cleared per Infection Control. Patient does not require isolation for hx of MRSA prior to 09/10/15. Reported Meds & Prescriptions Reported Meds & Active Scripts Active Reported [blood pressure pill] [cholesterol pill] [diabetes pill] Review of Systems Except as stated in HPI: all other systems reviewed are Neg Physical Exam Narrative GENERAL: Thin, older appearing than stated age SKIN: Focused skin assessment warm and dry. HEAD: Atraumatic. Normocephalic. EYES: Pupils equal and round. No injection or drainage. ENT: Moist mucous membranes NECK: Trachea midline. CARDIOVASCULAR: Regular rate and rhythm. No murmur appreciated. RESPIRATORY: Clear to auscultation. Breath sounds equal bilaterally. GASTROINTESTINAL: Abdomen soft, non-tender, nondistended. MUSCULOSKELETAL: No obvious deformities. NEUROLOGICAL: Awake and alert. No obvious cranial nerve deficits. Moving all extremities. PSYCHIATRIC: Appropriate mood and affect; insight and judgment normal. Data Data Last Documented VS Vital Signs Date Time Temp Pulse Resp B/P (MAP) Pulse Ox O2 Delivery O2 Flow Rate FiO2 05/29/17 17:59 80 16 141/72 (95) 96 Nasal Cannula 2.00 05/29/17 13:55 98.0 Orders Orders Electrocardiogram (05/29/17 14:35) Complete Blood Count With Diff (05/29/17 14:35) Comprehensive Metabolic Panel (05/29/17 14:35) Troponin I (05/29/17 14:35) Chest, Single Ap (05/29/17 14:35) Ecg Monitoring (05/29/17 14:35) Bilateral Bp Monitoring (05/29/17 14:35) Iv Access Insert/Monitor (05/29/17 14:35) Oximetry (05/29/17 14:35) Oxygen Administration (05/29/17 14:35) Sodium Chloride 0.9% Flush (Ns Flush) (05/29/17 14:45) Albuterol-Ipratropium Neb (Duoneb Neb) (05/29/17 14:45) Methylprednisolone So Succ Inj (Solumedr (05/29/17 14:45) Morphine Inj (Morphine Inj) (05/29/17 14:45) Ct Pulmonary Angiogram (05/29/17 ) Iohexol 350 Inj (Omnipaque 350 Inj) (05/29/17 17:29) Admit Order (Ed Use Only) (05/29/17 18:09) Lipase (05/29/17 14:30) Labs Laboratory Tests Test 05/29/17 14:30 White Blood Count 11.9 TH/MM3 Red Blood Count 5.71 MIL/MM3 Hemoglobin 16.0 GM/DL Hematocrit 48.3 % Mean Corpuscular Volume 84.6 FL Mean Corpuscular Hemoglobin 28.0 PG Mean Corpuscular Hemoglobin Concent 33.2 % Red Cell Distribution Width 15.2 % Platelet Count 291 TH/MM3 Mean Platelet Volume 8.8 FL Neutrophils (%) (Auto) 64.5 % Lymphocytes (%) (Auto) 24.7 % Monocytes (%) (Auto) 7.7 % Eosinophils (%) (Auto) 2.2 % Basophils (%) (Auto) 0.9 % Neutrophils # (Auto) 7.7 TH/MM3 Lymphocytes # (Auto) 2.9 TH/MM3 Monocytes # (Auto) 0.9 TH/MM3 Eosinophils # (Auto) 0.3 TH/MM3 Basophils # (Auto) 0.1 TH/MM3 CBC Comment DIFF FINAL Differential Comment Blood Urea Nitrogen 12 MG/DL Creatinine 0.50 MG/DL Random Glucose 138 MG/DL Total Protein 8.1 GM/DL Albumin 3.9 GM/DL Calcium Level 9.1 MG/DL Alkaline Phosphatase 159 U/L Aspartate Amino Transf (AST/SGOT) 75 U/L Alanine Aminotransferase (ALT/SGPT) 32 U/L Total Bilirubin 0.4 MG/DL Sodium Level 135 MEQ/L Potassium Level 3.6 MEQ/L Chloride Level 97 MEQ/L Carbon Dioxide Level 28.1 MEQ/L Anion Gap 10 MEQ/L Estimat Glomerular Filtration Rate 170 ML/MIN Troponin I 0.10 NG/ML Lipase 99 U/L MDM Medical Decision Making Medical Screen Exam Complete: Yes Emergency Medical Condition: Yes Interpretation(s) Afebrile, no tachycardia, hypertensive Mild leukocytosis Troponin is 0.1 Last 24 hours Impressions Chest X-Ray 05/29/17 8104 Signed Impressions: Service Date/Time: Monday, May 29, 2017 14:45 - CONCLUSION: 1. Changes of obstructive pulmonary disease with biapical bullous change. 2. No acute abnormality or significant interval change. Feliberto Duong MD CT Angiography 05/29/17 0000 Signed Impressions: Service Date/Time: Monday, May 29, 2017 17:16 - CONCLUSION: 1. No CT evidence of pulmonary artery embolism to the subsegmental level. 2. Moderate to severe coronary artery calcifications. 3. Redemonstration of severe centrilobular emphysema with small 4-5 mm nodules in the right lower lobe. Overall, this is improved from patchy bilateral nodular airspace disease noted in September. Consider followup examination in 3-6 months per 2017 Fleischner criteria. 4. Redemonstration of nonspecific mediastinal adenopathy with interval development of left hilar adenopathy. This can also be reevaluated on followup imaging. Feliberto Duong MD Differential Diagnosis Acute coronary syndrome, pneumonia, pleural effusion, pulmonary embolism, pancreatitis Narrative Course This is a 62-year-old male who presents the emergency department with atypical chest pain is been going on for several days. It's positional in nature. He is reassuring vital signs. He is diffusely wheezing on exam. He was given a bronchodilator treatment and a dose of steroids. Labs were obtained which were reassuring with the exception of a troponin of 0.1. EKG is nonischemic. Patient did have an elevation in his troponin when he was critically ill and August in the setting of a suspected small bowel obstruction. At that time I can 't find any cardiology notes, catheterization or stress test that was performed. Patient has evidence on CT scan of coronary artery disease. I think he requires serial cardiac enzymes and possible cardiology consultation. CT pulmonary angiogram was obtained given the patient's history of pulmonary embolism. It was negative for PE however does demonstrate lymphadenopathy. Patient will be admitted for further evaluation and chest pain. Admitting Information Admitting Physician Requests: Mirtha Dunham MD May 29, 2017 17:39
--- NOTE | 2017-05-29 17:40 | RADRPT ---
EXAM DATE/TIME: 05/29/2017 17:16 [facility] COMPARISON: CT PULMONARY ANGIOGRAM, October 14, 2016, 13:05. INDICATIONS : Substernal chest pain for three days. IV CONTRAST: 60 cc Omnipaque 350 (iohexol) IV RADIATION DOSE: 12.28 CTDIvol (mGy) MEDICAL HISTORY : Cardiovascular disease. Congestive heart failure. Hypertension.diabetes SURGICAL HISTORY : None. ENCOUNTER: Initial ACUITY: 3 days PAIN SCALE: 4/10 LOCATION: substernal chest TECHNIQUE: Volumetric scanning of the chest was performed using a pulmonary embolism protocol MIP images were re constructed. Using automated exposure control and adjustment of the mA and/or kV according to patien t size, radiation dose was kept as low as reasonably achievable to obtain optimal diagnostic quality images. DICOM format image data is available electronically for review and comparison. Follow-up recommendations for detected pulmonary nodules are based at a minimum on nodule size and pa tient risk factors according to Fleischner Society Guidelines. FINDINGS: PULMONARY ARTERIES: No filling defects are seen in the pulmonary arteries through the segmental level. LUNGS: Redemonstration of severe upper lobe predominant emphysema. Marked interval improvement of nodular bi lateral lower lobe airspace disease. There are however are 2 adjacent 4-5 mm nodules noted in the rig ht lower lobe with minimal air space consolidation in the lung bases bilaterally. There is also redem onstration of scarring near the right apex. PLEURAE: There is no pleural thickening or pleural effusion. MEDIASTINUM: Redemonstration of prominent mediastinal nodes measuring up to 1.2 cm in the subcarinal region. There has been interval development of left hilar adenopathy measuring 1.8 x 2.2 cm. And moderate severe c oronary artery calcifications. Heart is otherwise unremarkable without pericardial effusion. MUSCULOSKELETAL: Within normal limits for patient age. MISCELLANEOUS: Visualized upper abdomen both is grossly unremarkable. CONCLUSION: 1. No CT evidence of pulmonary artery embolism to the subsegmental level. 2. Moderate to severe coronary artery calcifications. 3. Redemonstration of severe centrilobular emphysema with small 4-5 mm nodules in the right lower lob e. Overall, this is improved from patchy bilateral nodular airspace disease noted in September. Consider followup examination in 3-6 months per 2017 Fleischner criteria. 4. Redemonstration of nonspecific mediastinal adenopathy with interval development of left hilar macy opathy. This can also be reevaluated on followup imaging. Feliberto Duong MD on May 29, 2017 at 17:27 Board Certified Radiologist. This report was verified electronically.
[2017-05-29] MEDS ORDERED: ASPIRIN 81 MG CHEW TAB CHEW ONE (18:15)
[2017-05-29] MEDS ORDERED: SODIUM CHLORIDE 0.9% FLUSH 10 ML FLUSH IV FLUSH PRN (18:30)
[2017-05-29] MEDS ORDERED: ACETAMINOPHEN 500 MG CPLT PO PRN (18:30)
[2017-05-29] MEDS ORDERED: MORPHINE SULFATE 4 MG/ML INJ IV PUSH PRN (18:30)
[2017-05-29] MEDS ORDERED: RESP: ALBUTEROL 2.5 MG/IPRATROPIUM 0.5 MG NEB (PRN) NEB (18:30)
[2017-05-29] MEDS ORDERED: GLUCAGON 1 MG/ML VIAL OTHER PRN (18:45)
[2017-05-29] MEDS ORDERED: cloNIDine HCL 0.1 MG TAB PO PRN (18:45)
[2017-05-29] MEDS ORDERED: DEXTROSE 50% IN WATER 50 ML VIAL(D50) IV PUSH PRN (18:45)
--- NOTE | 2017-05-29 18:58 | HHI.HP ---
[facility] Service [facility] Primary Care Physician [facility] Admission Diagnosis chest pain Diagnoses: Travel History International Travel<30 Days: No Contact w/Intl Traveler <30 Da: No Traveled to Known Affected Are: No History of Present Illness 62-year-old male with a past medical history significant for hypertension, hyperlipidemia, type 2 diabetes mellitus and COPD presents with left sided chest pain/pressure since late night. He states the pain is worse with sitting up or leaning forward and is relieved when he lays back. He states it is constant and nonradiating. Chest pain is not reproducible on exam. He denies any diaphoresis, nausea/vomiting or shortness of breath. EKG shows an incomplete right bundle branch block, unchanged from previous. Laboratory values significant for a troponin of 0.10. The patient does have a history of elevated troponin in the setting of SBO, status post laparotomy for lysis of adhesions with subsequent respiratory failure requiring intubation in August of this year. EKG showed incomplete right bundle branch block without ST segment elevation or depression, unchanged from previous. Review of Systems Denies fever or chills Denies blurry vision, otorrhea, rhinorrhea Denies sore throat and cough Positive chest pain, No palpitations, shortness of breath No abdominal pain Denies constipation/diarrhea/nausea/vomiting Denies muscle pain/weakness No rashes Past Family Social History Past Medical History COPD Hyperlipidemia Type 2 diabetes mellitus Past Surgical History Laparotomy with lysis of adhesions in August 2016 Pilonidal cyst Reported Medications Reported Meds & Active Scripts Active Reported [blood pressure pill] [cholesterol pill] [diabetes pill] Allergies: Coded Allergies: penicillin G (Unverified Allergy, Severe, SWELLING, 05/29/17) has tolerated Cephalosporins in previous admissions *MDRO Multi-Drug Resistant Organism (Verified Adverse Reaction, Unknown, 05/29/17) Hx MRSA Sputum 2006, Wounds 2003 MRSA PCR Screen negative 11/25/14 & 09/10/15. Cleared per Infection Control. Patient does not require isolation for hx of MRSA prior to 09/10/15. Family History Denies family history of coronary artery disease or diabetes mellitus Social History Smokes approximately 8 cigarettes per day. 4o pack year history of smoking. Patient states he quit alcohol in July of this year. Denies illicit drugs. Physical Exam Vital Signs Vital Signs Date Time Temp Pulse Resp B/P (MAP) Pulse Ox O2 Delivery O2 Flow Rate FiO2 05/29/17 17:59 80 16 141/72 (95) 96 Nasal Cannula 2.00 05/29/17 16:05 78 18 156/76 (102) 98 Nasal Cannula 2.00 05/29/17 14:53 Nasal Cannula 2.00 05/29/17 14:53 169/79 (109) 156/73 (100) 05/29/17 14:15 98 Room Air 05/29/17 13:55 98.0 80 18 188/82 (117) 95 Physical Exam GENERAL: Disheveled male lying down in bed SKIN: No rashes, ecchymoses or lesions. Cool and dry. HEAD: Atraumatic. Normocephalic. No temporal or scalp tenderness. EYES: Pupils equal round and reactive. Extraocular motions intact. No scleral icterus. No injection or drainage. ENT: Nose without bleeding, purulent drainage or septal hematoma. Throat without erythema, tonsillar hypertrophy or exudate. Uvula midline. Airway patent. NECK: Trachea midline. No JVD or lymphadenopathy. Supple, nontender, no meningeal signs. CARDIOVASCULAR: Regular rate and rhythm without murmurs, gallops, or rubs. RESPIRATORY: Distant breath sounds. No wheezes, rales, rhonchi. GASTROINTESTINAL: Abdomen soft, non-tender, nondistended. No hepato-splenomegaly , or palpable masses. No guarding. MUSCULOSKELETAL: Extremities without clubbing, cyanosis, or edema. No joint tenderness, effusion, or edema noted. No calf tenderness. NEUROLOGICAL: Awake and alert. Cranial nerves II through XII intact. Motor and sensory grossly within normal limits. Normal speech. Laboratory Laboratory Tests Test 05/29/17 14:30 White Blood Count 11.9 Red Blood Count 5.71 Hemoglobin 16.0 Hematocrit 48.3 Mean Corpuscular Volume 84.6 Mean Corpuscular Hemoglobin 28.0 Mean Corpuscular Hemoglobin Concent 33.2 Red Cell Distribution Width 15.2 Platelet Count 291 Mean Platelet Volume 8.8 Neutrophils (%) (Auto) 64.5 Lymphocytes (%) (Auto) 24.7 Monocytes (%) (Auto) 7.7 Eosinophils (%) (Auto) 2.2 Basophils (%) (Auto) 0.9 Neutrophils # (Auto) 7.7 Lymphocytes # (Auto) 2.9 Monocytes # (Auto) 0.9 Eosinophils # (Auto) 0.3 Basophils # (Auto) 0.1 CBC Comment DIFF FINAL Differential Comment Blood Urea Nitrogen 12 Creatinine 0.50 Random Glucose 138 Total Protein 8.1 Albumin 3.9 Calcium Level 9.1 Alkaline Phosphatase 159 Aspartate Amino Transf (AST/SGOT) 75 Alanine Aminotransferase (ALT/SGPT) 32 Total Bilirubin 0.4 Sodium Level 135 Potassium Level 3.6 Chloride Level 97 Carbon Dioxide Level 28.1 Anion Gap 10 Estimat Glomerular Filtration Rate 170 Troponin I 0.10 Result Diagram: 05/29/17142905/29/17 143 Caprin VTE Risk Assessment Caprin VTE Risk Assessment: Mod/High Risk (score >= 2) Caprini Risk Assessment Model Point Value = 1 Point Value = 2 Point Value = 3 Point Value = 5 Age 41-60 Minor surgery BMI > 25 kg/m2 Swollen legs Varicose veins or History of unexplained or recurrent spontaneous Oral contraceptives or hormone replacement Sepsis (< 1 month) Serious lung disease, including pneumonia (< 1 month) Abnormal pulmonary function Acute myocardial infarction Congestive heart failure (< 1 month) History of inflammatory bowel disease Medical patient at bed rest Age 61-74 Arthroscopic surgery Major open surgery (> 45 min) Laparoscopic surgery (> 45 min) Malignancy Confined to bed (> 72 hours) Immobilizing plaster cast Central venous access Age >= 75 History of VTE Family history of VTE Factor V Leiden Prothrombin [id number] Lupus anticoagulant Anticardiolipin antibodies Elevated serum homocysteine Heparin-induced thrombocytopenia Other congenital or acquired thrombophilia Stroke (< 1 month) Elective arthroplasty Hip, pelvis, or leg fracture Acute spinal cord injury (< 1 month) Prophylaxis Regimen Total Risk Factor Score Risk Level Prophylaxis Regimen 0-1 Low Early ambulation 2 Moderate Order ONE of the following: *Sequential Compression Device (SCD) *Heparin 5000 units SQ BID 3-4 Higher Order ONE of the following medications: *Heparin 5000 units SQ TID *Enoxaparin/Lovenox 40 mg SQ daily (WT < 150 kg, CrCl > 30 mL/min) *Enoxaparin/Lovenox 30 mg SQ daily (WT < 150 kg, CrCl > 10-29 mL/min) *Enoxaparin/Lovenox 30 mg SQ BID (WT < 150 kg, CrCl > 30 mL/min) AND/OR *Sequential Compression Device (SCD) 5 or more Highest Order ONE of the following medications: *Heparin 5000 units SQ TID (Preferred with Epidurals) *Enoxaparin/Lovenox 40 mg SQ daily (WT < 150 kg, CrCl > 30 mL/min) *Enoxaparin/Lovenox 30 mg SQ daily (WT < 150 kg, CrCl > 10-29 mL/min) *Enoxaparin/Lovenox 30 mg SQ BID (WT < 150 kg, CrCl > 30 mL/min) AND *Sequential Compression Device (SCD) Assessment and Plan Assessment and Plan 62-year-old male with past medical history significant for type 2 diabetes mellitus, hyperlipidemia, hypertension and COPD presents with new onset left- sided chest pain. 1. Chest pain/elevated troponin Troponin 0.10 EKG showed sinus rhythm with incomplete right bundle branch block unchanged from prior without ST segment elevations or depressions, images reviewed by me ACS rule out pending; serial troponins/EKGs Nitro paste/morphine 2. COPD Not on home oxygen Duo nebs when necessary 3. Type 2 diabetes mellitus SSI 4. Hypertension Patient cannot remember the names of any of his home medications Clonidine when necessary 5. Hyperlipidemia Statin FEN Heart healthy diet Electrolytes: monitor and replete prn Heparin Case discussed with ER physician at length Britany Crocker MD May 29, 2017 18:58
[2017-05-29] MEDS: SODIUM CHLORIDE 0.9% FLUSH 10 ML FLUSH IV FLUSH SCH (20:55)
[2017-05-29] MEDS: PRAVASTATIN SOD 40 MG TAB PO SCH (20:55)
[2017-05-29] MEDS: HEPARIN SODIUM - SQ 10,000 UNITS/ML VIAL SQ SCH (20:56)
[2017-05-29] MEDS: INSULIN ASPART SUPPLEMENTAL SCALE SQ SCH (21:50)
[2017-05-29 23:00] LABS: CKMB 73.5 NG/ML (0.5-3.6)
[2017-05-30] VITALS (11 sets, daily range): BP systolic 107–154; BP diastolic 56–73; PULSE 72–80; RESP 16–18; TEMP 97.7–98.5; O2SAT 92–97
[2017-05-30] MEDS: NITROGLYCERIN 2% OINT 1 GM PACKET TOP SCH ×4 (00:28→18:00)
[2017-05-30 03:58] LABS: AUTOMATED NEUTROPHIL # 10.1 TH/MM3 (1.8-7.7); BASOPHIL # 0.1 TH/MM3 (0-0.2); BASOPHIL % 0.4 % (0.0-2.0); HEMATOCRIT 43.6 % (39.0-51.0); HEMO FLAGS DIFF FINAL; LYMPHOCYTE # 1.4 TH/MM3 (1.0-4.8); MEAN CELL VOLUME 84.6 FL (80.0-100.0); MEAN CORPUSCULAR HEMOGLOBIN 28.9 PG (27.0-34.0); MEAN CORPUSCULAR HGB CONC 34.2 % (32.0-36.0); MONO % 1.2 % (0.0-8.0); NEUT % 86.4 % (16.0-70.0); PLATELET COUNT 269 TH/MM3 (150-450); RED BLOOD COUNT 5.15 MIL/MM3 (4.50-5.90); RED CELL DISTRIBUTION WIDTH 15.1 % (11.6-17.2); WHITE BLOOD COUNT 11.7 TH/MM3 (4.0-11.0)
[2017-05-30 04:39] LABS: ALKALINE PHOSPHATASE 144 U/L (45-117); ALT (GPT) 29 U/L (12-78); ANION GAP 6 MEQ/L (5-15); AST (GOT) 52 U/L (15-37); BICARBONATE 29.9 MEQ/L (21.0-32.0); BLOOD UREA NITROGEN 16 MG/DL (7-18); CHLORIDE 97 MEQ/L (98-107); GLOMERULAR FILTRATION RATE 140 ML/MIN (>89); POTASSIUM 4.3 MEQ/L (3.5-5.1); SODIUM (NA) 133 MEQ/L (136-145); TOTAL BILIRUBIN ADULT 0.4 MG/DL (0.2-1.0)
[2017-05-30 05:00] LABS: CKMB 61.3 NG/ML (0.5-3.6)
[2017-05-30] MEDS: INSULIN ASPART SUPPLEMENTAL SCALE SQ SCH ×4 (08:00→21:48)
[2017-05-30] MEDS: HEPARIN SODIUM - SQ 10,000 UNITS/ML VIAL SQ SCH (09:21)
[2017-05-30] MEDS: SODIUM CHLORIDE 0.9% FLUSH 10 ML FLUSH IV FLUSH SCH ×2 (09:21→21:48)
[2017-05-30] MEDS ORDERED: HEPARIN-D5W 25,000 U/250 ML 250 ML IV PRN (10:45)
[2017-05-30 11:20] LABS: APTT (PATIENT) 25.9 SEC (24.3-30.1); INTERNATIONAL NORMALIZED RATIO 1.1 RATIO
--- NOTE | 2017-05-30 12:32 | HHI.PR ---
Subjective Remarks 62-year-old male with a past medical history significant for hypertension, hyperlipidemia, type 2 diabetes mellitus and COPD presents with left sided chest pain/pressure since late night. He states the pain is worse with sitting up or leaning forward and is relieved when he lays back. He states it is constant and nonradiating. Chest pain is not reproducible on exam. He denies any diaphoresis, nausea/vomiting or shortness of breath. EKG shows an incomplete right bundle branch block, unchanged from previous. Laboratory values significant for a troponin of 0.10. The patient does have a history of elevated troponin in the setting of SBO, status post laparotomy for lysis of adhesions with subsequent respiratory failure requiring intubation in August of this year. EKG showed incomplete right bundle branch block without ST segment elevation or depression, unchanged from previous. 12-4 Follow up visit on 62-year-old male with PMH significant for HTN, HLD, COPD, and DM who presented to the ED with complaints of chest pain night. 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 Patient is seen and examined in room resting comfortably and in no acute distress. He is requesting something to eat as he is hungry. He denies chest pain at the moment, no SOB, nausea, vomiting, diarrhea, fever or chills. HAD POSITIVE TROPONINS DW CARDIOLOGY THINKS PERICARDITIS- NSAIDS PPI GIVE CARDIAC DIET Objective Vitals Vital Signs Date Time Temp Pulse Resp B/P (MAP) Pulse Ox O2 Delivery O2 Flow Rate FiO2 05/30/17 11:19 97.9 74 16 123/72 (89) 94 05/30/17 09:32 97.7 72 18 121/64 (83) 95 05/30/17 08:10 77 05/30/17 04:28 98.5 75 18 107/56 (73) 97 05/30/17 04:00 80 05/29/17 20:16 98.4 83 18 147/80 (102) 93 05/29/17 19:15 82 18 131/74 (93) 91 Nasal Cannula 2.00 05/29/17 17:59 80 16 141/72 (95) 96 Nasal Cannula 2.00 05/29/17 16:05 78 18 156/76 (102) 98 Nasal Cannula 2.00 05/29/17 14:53 Nasal Cannula 2.00 05/29/17 14:53 169/79 (109) 156/73 (100) 05/29/17 14:15 98 Room Air 05/29/17 13:55 98.0 80 18 188/82 (117) 95 I/O 05/29/17 05/29/17 05/29/17 05/30/17 05/30/17 05/30/17 07:00 15:00 23:00 07:00 15:00 23:00 Intake Total 540 ml Output Total 1200 ml Balance -660 ml Intake Oral 540 ml Output Urine Total 1200 ml # Voids 1 Result Diagram: 05/30/17 0340 05/30/17 0340 Other Results Laboratory Tests Test 05/29/17 14:30 05/29/17 21:10 05/30/17 03:40 05/30/17 11:00 White Blood Count 11.9 TH/MM3 11.7 TH/MM3 Red Blood Count 5.71 MIL/MM3 5.15 MIL/MM3 Hemoglobin 16.0 GM/DL 14.9 GM/DL Hematocrit 48.3 % 43.6 % Mean Corpuscular Volume 84.6 FL 84.6 FL Mean Corpuscular Hemoglobin 28.0 PG 28.9 PG Mean Corpuscular Hemoglobin Concent 33.2 % 34.2 % Red Cell Distribution Width 15.2 % 15.1 % Platelet Count 291 TH/MM3 269 TH/MM3 Mean Platelet Volume 8.8 FL 8.2 FL Neutrophils (%) (Auto) 64.5 % 86.4 % Lymphocytes (%) (Auto) 24.7 % 12.0 % Monocytes (%) (Auto) 7.7 % 1.2 % Eosinophils (%) (Auto) 2.2 % 0.0 % Basophils (%) (Auto) 0.9 % 0.4 % Neutrophils # (Auto) 7.7 TH/MM3 10.1 TH/MM3 Lymphocytes # (Auto) 2.9 TH/MM3 1.4 TH/MM3 Monocytes # (Auto) 0.9 TH/MM3 0.1 TH/MM3 Eosinophils # (Auto) 0.3 TH/MM3 0.0 TH/MM3 Basophils # (Auto) 0.1 TH/MM3 0.1 TH/MM3 CBC Comment DIFF FINAL DIFF FINAL Differential Comment Blood Urea Nitrogen 12 MG/DL 16 MG/DL Creatinine 0.50 MG/DL 0.59 MG/DL Random Glucose 138 MG/DL 300 MG/DL Total Protein 8.1 GM/DL 7.1 GM/DL Albumin 3.9 GM/DL 3.3 GM/DL Calcium Level 9.1 MG/DL 8.8 MG/DL Alkaline Phosphatase 159 U/L 144 U/L Aspartate Amino Transf (AST/SGOT) 75 U/L 52 U/L Alanine Aminotransferase (ALT/SGPT) 32 U/L 29 U/L Total Bilirubin 0.4 MG/DL 0.4 MG/DL Sodium Level 135 MEQ/L 133 MEQ/L Potassium Level 3.6 MEQ/L 4.3 MEQ/L Chloride Level 97 MEQ/L 97 MEQ/L Carbon Dioxide Level 28.1 MEQ/L 29.9 MEQ/L Anion Gap 10 MEQ/L 6 MEQ/L Estimat Glomerular Filtration Rate 170 ML/MIN 140 ML/MIN Troponin I 0.10 NG/ML 0.07 NG/ML 0.06 NG/ML Lipase 99 U/L Total Creatine Kinase 2475 U/L 2130 U/L Creatine Kinase MB 73.5 NG/ML 61.3 NG/ML Creatine Kinase MB % 3.0 % 2.9 % Prothrombin Time 11.0 SEC Prothromb Time International Ratio 1.1 RATIO Activated Partial Thromboplast Time 25.9 SEC Test 05/30/17 11:35 White Blood Count 13.9 TH/MM3 Red Blood Count 5.00 MIL/MM3 Hemoglobin 13.8 GM/DL Hematocrit 42.3 % Mean Corpuscular Volume 84.6 FL Mean Corpuscular Hemoglobin 27.6 PG Mean Corpuscular Hemoglobin Concent 32.7 % Red Cell Distribution Width 15.3 % Platelet Count 283 TH/MM3 Mean Platelet Volume 8.5 FL Hemoglobin A1c 7.1 % Triglycerides Level 89 MG/DL Cholesterol Level 132 MG/DL LDL Cholesterol 91 MG/DL HDL Cholesterol 23.6 MG/DL Cholesterol/HDL Ratio 5.59 RATIO Imaging Last Impressions Chest X-Ray 05/29/17 1435 Signed Impressions: Service Date/Time: Monday, May 29, 2017 14:45 - CONCLUSION: 1. Changes of obstructive pulmonary disease with biapical bullous change. 2. No acute abnormality or significant interval change. Feliberto Duong MD CT Angiography 05/29/17 0000 Signed Impressions: Service Date/Time: Monday, May 29, 2017 17:16 - CONCLUSION: 1. No CT evidence of pulmonary artery embolism to the subsegmental level. 2. Moderate to severe coronary artery calcifications. 3. Redemonstration of severe centrilobular emphysema with small 4-5 mm nodules in the right lower lobe. Overall, this is improved from patchy bilateral nodular airspace disease noted in September. Consider followup examination in 3-6 months per 2017 Fleischner criteria. 4. Redemonstration of nonspecific mediastinal adenopathy with interval development of left hilar adenopathy. This can also be reevaluated on followup imaging. Feliberto Duong MD Objective Remarks GENERAL: male lying down in bed, in no acute distress. SKIN: No rashes, ecchymoses or lesions. Cool and dry. HEAD: Atraumatic. Normocephalic. EYES: No scleral icterus. No injection or drainage. ENT: Airway patent. Tongue is midline or mucosa is moist NECK: Trachea midline. No JVD. CARDIOVASCULAR: Regular rate and rhythm without murmurs, gallops, or rubs. S1 and S2 no S3 or S4 no heave or thrill or rub or gallop RESPIRATORY: Distant breath sounds. No wheezes, rales, rhonchi. GASTROINTESTINAL: Abdomen soft, non-tender, nondistended. MUSCULOSKELETAL: Extremities without clubbing, cyanosis, or edema. No joint tenderness, effusion, or edema noted. NEUROLOGICAL: Awake and alert. Motor and sensory grossly within normal limits. Normal speech. Motor strength is 5 over 5 in upper extremity and lower extremity bilaterally cranial nerves 2-12 grossly intact Insight and judgment is good mood and behaviors appropriate Procedures NONE Medications and IVs Current Medications Sodium Chloride (NS Flush) 2 ml UNSCH PRN IVF FLUSH AFTER USING IV ACCESS; Start 05/29/17 at 14:45; Stop 05/29/17 at 18:45; Status DC Albuterol/ Ipratropium (Duoneb Neb) 1 ampule ONCE ONCE NEB Last administered on 05/29/17 15:09; Start 05/29/17 at 14:45; Stop 05/29/17 at 14:46; Status DC Methylprednisolone Sodium Succinate (SoluMEDROL INJ) 125 mg ONCE ONCE IV PUSH Last administered on 05/29/17 14:51; Start 05/29/17 at 14:45; Stop 05/29/17 at 14:46; Status DC Morphine Sulfate (Morphine Inj) 4 mg ONCE ONCE IV PUSH Last administered on 14:51; Start 05/29/17 at 14:45; Stop 05/29/17 at 14:46; Status DC Iohexol (Omnipaque 350 Inj) 60 ml STK-MED ONCE IVCONTRAST Last administered on 05/29/17 17:29; Start 05/29/17 at 17:29; Stop 05/29/17 at 17:30; Status DC Aspirin (Aspirin Chew) 162 mg ONCE ONCE CHEW Last administered on 05/29/17 18 :38; Start 05/29/17 at 18:15; Stop 05/29/17 at 18:16; Status DC Sodium Chloride (NS Flush) 2 ml BID IV FLUSH Last administered on 05/30/17 09: 21; Start 05/29/17 at 21:00 Sodium Chloride (NS Flush) 2 ml UNSCH PRN IV FLUSH FLUSH AFTER USING IV ACCESS ; Start 05/29/17 at 18:30 Nitroglycerin (Nitroglycerin 2% Oint) 1 inch Q6HR TOP Last administered on 05/30 00:28; Start 05/30/17 at 00:00 Acetaminophen (Tylenol) 500 mg Q4H PRN PO HEADACHE; Start 05/29/17 at 18:30 Heparin Sodium (Porcine) (Heparin Inj) 5,000 units Q12H SQ Last administered on 05/30/17 09:21; Start 05/29/17 at 21:00; Stop 05/30/17 at 10:53; Status DC Albuterol/ Ipratropium (Duoneb Neb) 1 ampule Q4HR NEB PRN NEB SOB/Wheezing; Start 05/29/17 at 18:30 Morphine Sulfate (Morphine Inj) 4 mg Q4H PRN IV PUSH pain 6-10; Start 05/29/17 at 18:30 Clonidine (Catapres) 0.1 mg Q6H PRN PO SBP>160, DBP>100; Start 05/29/17 at 18: 45 Dextrose (D50w (Vial) Inj) 50 ml UNSCH PRN IV PUSH HYPOGLYCEMIA-SEE COMMENTS; Start 05/29/17 at 18:45 Glucagon (Glucagon Inj) 1 mg UNSCH PRN OTHER HYPOGLYCEMIA-SEE COMMENTS; Start 05/29/17 at 18:45 Insulin Aspart (NovoLOG SUPPLEMENTAL SCALE) 1 ACHS SLIDING SCALE SQ Last administered on 05/29/17 21:50; Start 05/29/17 at 21:00 Pravastatin Sodium (Pravachol) 40 mg HS PO Last administered on 05/29/17 20:55 ; Start 05/29/17 at 21:00 Albuterol/ Ipratropium (Duoneb Neb) 1 ampule Q6HR WHILE AWAKE NEB NEB ; Start 05/30/17 at 14:00 Heparin Sodium/ Dextrose 250 ml @ 8 mls/hr TITRATE PRN IV Coagulation Management Last administered on 05/30/17 12:52; Start 05/30/17 at 10:45 Aspirin (Ecotrin Ec) 81 mg DAILY PO ; Start 05/31/17 at 09:00 Sodium Chloride 1,000 ml @ 84 mls/hr [id number] IV ; Start 05/30/17 at 14:00 A/P Assessment and Plan 62-year-old male with PMH significant for HTN, HLD, COPD, and DM who presented to the ED with complaints of chest pain night. Currently no chest pain complaints, mentioned he wanted to leave if he was not able to get anything to eat. Chest pain with positive troponin - Troponin trend reviewed: 0.1, 0.07, 0.06 - 1st EKG showing SR with incomplete right BBB - 2nd EKG showing SR with low QRS voltage in perecordial leads, pattern consistent with pulmonary disease, incomplete right bundle branch block, moderate ST depression - 3rd EKG showing sinus rhythm with possible left atrial enlargement, ST deviation and moderate T-wave abnormality, consider anterior ischemia - Chest pain free now - Cardiology consult placed, appreciate recommendations - Placed on ASA, statin - Check lipids, and Hemoglobin A1C - Cardiology feels this is pericarditis we'll start on Indocin. As well as Protonix twice a day stop aspirin stop heparin DM, chronic - Accu-checks ISS with coverage as needed - ADA diet when appropriate - Checking Hemoglobin A1C - COPD, stable in no exacerbation - Chest x-ray reviewed showing obstructive pulmonary disease with biapical bullous changes. - CTA of chest reviewed with no PE, moderate to severe coronary artery calcifications. Redemonstration of severe centrilobular emphysema with small 4- 5mm nodule in the right lower lobe. This is overall an improvement from patchy bilateral nodular airspace disease noted in September. Redemonstration of nonspecific mediastinal adenopathy with interval development of the left hilar adenopathy. - Radiologist recommends 3-6 month followup imaging per 2017 [place] on right lower lobe nodule as well as left hilar adenopathy. - Duonebs as needed - Monitor respiratory status HLD - Statin ordered - Checking lipid profile VTE: Lovenox low-dose Discharge Planning PT and OT increase ambulation Attending Statement The exam, history, and the medical decision-making described in the above note were completed with the assistance of the mid-level provider. I reviewed and agree with the findings presented. I attest that I had a [id number] encounter with the patient on the same day, and personally performed and documented my assessment and findings in the medical record. Pravin Harvey May 30, 2017 12:32 Chan Jo DO May 30, 2017 14:42
[2017-05-30 13:07] LABS: HEMATOCRIT 42.3 % (39.0-51.0); MEAN CELL VOLUME 84.6 FL (80.0-100.0); MEAN CORPUSCULAR HEMOGLOBIN 27.6 PG (27.0-34.0); MEAN CORPUSCULAR HGB CONC 32.7 % (32.0-36.0); PLATELET COUNT 283 TH/MM3 (150-450); RED CELL DISTRIBUTION WIDTH 15.3 % (11.6-17.2); REVIEW FLAG FINAL; WHITE BLOOD COUNT 13.9 TH/MM3 (4.0-11.0)
[2017-05-30 13:40] LABS: HDL CHOLESTEROL 23.6 MG/DL (40.0-60.0); LDL CHOLESTEROL 91 MG/DL (0-99)
[2017-05-30 13:59] LABS: HEMOGLOBIN A1a 1.3 %; HEMOGLOBIN A1b 1.9 %; HEMOGLOBIN Ao 81.1 %; HEMOGLOBIN LA1C 3.4 %; HEMOGLOBIN P3 4.7 %
[2017-05-30] MEDS ORDERED: SODIUM CHLOR 0.9% 1000 ML INJ 1,000 ML IV SCH (14:00)
--- NOTE | 2017-05-30 14:28 | PD.CONS ---
HPI Consult Request[facility] By [facility] History of Present Illness 62-year-old male with a past medical history significant for hypertension, hyperlipidemia, type 2 diabetes mellitus, smoker and COPD presents with left sided chest pain since late night. He states the pain is worse with sitting up or leaning forward and is relieved when he lays back. He states it is constant and nonradiating. Chest pain is not reproducible on exam. He denies any diaphoresis, nausea/vomiting or shortness of breath. EKG shows an incomplete right bundle branch block, unchanged from previous. Laboratory values significant for a troponin of 0.10. The patient does have a history of elevated troponin. Cardiology consulted for further management and evaluation. Review of Systems Consitutional: DENIES: Fatigue, Fever, Chills, Weight gain, Weight loss Eyes: DENIES: Amaurosis Fugax, Change in vision HEENT: DENIES: Lightheadedness, Change in hearing Respiratory: DENIES: See HPI, Cough, Snoring, Shortness of breath, Wheezing, Sputum production Cardiovascular: COMPLAINS OF: See HPI, Chest pain, DENIES: Palpitations, Syncope, Tachycardia Gastrointestinal: DENIES: Nausea, Vomiting, Change in bowel habits, Reflux, Bloody stools, Melena Genitourinary: DENIES: Urinary incontinence, Difficulty voiding Integumentary: DENIES: Rash Neurologic: DENIES: Tingling or numbness, Memory problems, Poor Balance, Stroke symptoms Musculoskeletal: DENIES: Joint pain, Muscle pain, Limited range of motion, Back pain Psychiatric: DENIES: Anxiety, Depression, Sleep disturbances Hematologic: DENIES: Bruising tendencies, Bleeding tendencies Endocrine: DENIES: Weight gain, Weight loss, Thyroid disease Past Family Social History Allergies: Coded Allergies: penicillin G (Unverified Allergy, Severe, SWELLING, 05/29/17) has tolerated Cephalosporins in previous admissions *MDRO Multi-Drug Resistant Organism (Verified Adverse Reaction, Unknown, 05/29/17) Hx MRSA Sputum 2006, Wounds 2003 MRSA PCR Screen negative 11/25/14 & 09/10/15. Cleared per Infection Control. Patient does not require isolation for hx of MRSA prior to 09/10/15. Past Medical History COPD Hyperlipidemia Type 2 diabetes mellitus Past Surgical History Laparotomy with lysis of adhesions in August 2016 Pilonidal cyst Reported Medications Reported Meds & Active Scripts Active Reported [blood pressure pill] [cholesterol pill] [diabetes pill] Active Ordered Medications Current Medications Medications (Trade) Dose Ordered Sig/Alfred Route Start Time Stop Time Status Last Admin (NS Flush) 2 ml BID IV FLUSH 05/29/17 21:00 05/30/17 09:21 (NS Flush) 2 ml UNSCH PRN IV FLUSH 05/29/17 18:30 (Nitroglycerin 2% Oint) 1 inch Q6HR TOP 05/30/17 00:00 05/30/17 00:28 (Tylenol) 500 mg Q4H PRN PO 05/29/17 18:30 (Duoneb Neb) 1 ampule Q4HR NEB PRN NEB 05/29/17 18:30 (Morphine Inj) 4 mg Q4H PRN IV PUSH 05/29/17 18:30 (Catapres) 0.1 mg Q6H PRN PO 05/29/17 18:45 (D50w (Vial) Inj) 50 ml UNSCH PRN IV PUSH 05/29/17 18:45 (Glucagon Inj) 1 mg UNSCH PRN OTHER 05/29/17 18:45 (NovoLOG SUPPLEMENTAL SCALE) 1 ACHS SLIDING SCALE SQ 05/29/17 21:00 05/29/17 21:50 (Pravachol) 40 mg HS PO 05/29/17 21:00 05/29/17 20:55 (Duoneb Neb) 1 ampule Q6HR WHILE AWAKE NEB NEB 05/30/17 14:00 Heparin Sodium/ Dextrose 250 ml @ 8 mls/hr TITRATE PRN IV 05/30/17 10:45 05/30/17 12:52 (Ecotrin Ec) 81 mg DAILY PO 05/31/17 09:00 Sodium Chloride 1,000 ml @ 84 mls/hr [id number] IV 05/30/17 14:00 Family History Denies family history of coronary artery disease or diabetes mellitus Social History Smokes approximately 8 cigarettes per day. 4o pack year history of smoking. Patient states he quit alcohol in July of this year. Denies illicit drugs. Physical Exam Vital Signs Vital Signs Date Time Temp Pulse Resp B/P (MAP) Pulse Ox O2 Delivery O2 Flow Rate FiO2 05/30/17 12:40 73 05/30/17 11:19 97.9 74 16 123/72 (89) 94 12/4/17 09:32 97.7 72 18 121/64 (83) 95 05/30/17 08:10 77 05/30/17 04:28 98.5 75 18 107/56 (73) 97 05/30/17 04:00 80 05/29/17 20:16 98.4 83 18 147/80 (102) 93 05/29/17 19:15 82 18 131/74 (93) 91 Nasal Cannula 2.00 05/29/17 17:59 80 16 141/72 (95) 96 Nasal Cannula 2.00 05/29/17 16:05 78 18 156/76 (102) 98 Nasal Cannula 2.00 05/29/17 14:53 Nasal Cannula 2.00 05/29/17 14:53 169/79 (109) 156/73 (100) Physical Exam GENERAL: Well-nourished, well-developed patient. SKIN: Warm and dry. HEAD: Normocephalic. EYES: No scleral icterus. No injection or drainage. NECK: Supple, trachea midline. No JVD or lymphadenopathy. CARDIOVASCULAR: Regular rate and rhythm without murmurs, gallops, or rubs. RESPIRATORY: Breath sounds equal bilaterally. No accessory muscle use. GASTROINTESTINAL: Abdomen soft, non-tender, nondistended. EXTREMITIES: No cyanosis, or edema. NEUROLOGICAL: Awake, alert, and oriented x 3. Non-focal. Laboratory Laboratory Tests Test 05/29/17 14:30 05/29/17 21:10 05/30/17 03:40 05/30/17 11:00 White Blood Count 11.9 11.7 Red Blood Count 5.71 5.15 Hemoglobin 16.0 14.9 Hematocrit 48.3 43.6 Mean Corpuscular Volume 84.6 84.6 Mean Corpuscular Hemoglobin 28.0 28.9 Mean Corpuscular Hemoglobin Concent 33.2 34.2 Red Cell Distribution Width 15.2 15.1 Platelet Count 291 269 Mean Platelet Volume 8.8 8.2 Neutrophils (%) (Auto) 64.5 86.4 Lymphocytes (%) (Auto) 24.7 12.0 Monocytes (%) (Auto) 7.7 1.2 Eosinophils (%) (Auto) 2.2 0.0 Basophils (%) (Auto) 0.9 0.4 Neutrophils # (Auto) 7.7 10.1 Lymphocytes # (Auto) 2.9 1.4 Monocytes # (Auto) 0.9 0.1 Eosinophils # (Auto) 0.3 0.0 Basophils # (Auto) 0.1 0.1 CBC Comment DIFF FINAL DIFF FINAL Differential Comment Blood Urea Nitrogen 12 16 Creatinine 0.50 0.59 Random Glucose 138 300 Total Protein 8.1 7.1 Albumin 3.9 3.3 Calcium Level 9.1 8.8 Alkaline Phosphatase 159 144 Aspartate Amino Transf (AST/SGOT) 75 52 Alanine Aminotransferase (ALT/SGPT) 32 29 Total Bilirubin 0.4 0.4 Sodium Level 135 133 Potassium Level 3.6 4.3 Chloride Level 97 97 Carbon Dioxide Level 28.1 29.9 Anion Gap 10 6 Estimat Glomerular Filtration Rate 170 140 Troponin I 0.10 0.07 0.06 Lipase 99 Total Creatine Kinase 2475 2130 Creatine Kinase MB 73.5 61.3 Creatine Kinase MB % 3.0 2.9 Prothrombin Time 11.0 Prothromb Time International Ratio 1.1 Activated Partial Thromboplast Time 25.9 Test 05/30/17 11:35 White Blood Count 13.9 Red Blood Count 5.00 Hemoglobin 13.8 Hematocrit 42.3 Mean Corpuscular Volume 84.6 Mean Corpuscular Hemoglobin 27.6 Mean Corpuscular Hemoglobin Concent 32.7 Red Cell Distribution Width 15.3 Platelet Count 283 Mean Platelet Volume 8.5 Triglycerides Level 89 Cholesterol Level 132 LDL Cholesterol 91 HDL Cholesterol 23.6 Cholesterol/HDL Ratio 5.59 Result Diagram: 05/30/17 1135 05/30/17 0340 Imaging Last Impressions Chest X-Ray 05/29/17 1435 Signed Impressions: Service Date/Time: Monday, May 29, 2017 14:45 - CONCLUSION: 1. Changes of obstructive pulmonary disease with biapical bullous change. 2. No acute abnormality or significant interval change. Feliberto Duong MD CT Angiography 05/29/17 0000 Signed Impressions: Service Date/Time: Monday, May 29, 2017 17:16 - CONCLUSION: 1. No CT evidence of pulmonary artery embolism to the subsegmental level. 2. Moderate to severe coronary artery calcifications. 3. Redemonstration of severe centrilobular emphysema with small 4-5 mm nodules in the right lower lobe. Overall, this is improved from patchy bilateral nodular airspace disease noted in September. Consider followup examination in 3-6 months per 2017 Fleischner criteria. 4. Redemonstration of nonspecific mediastinal adenopathy with interval development of left hilar adenopathy. This can also be reevaluated on followup imaging. Feliberto Duong MD Assessment and Plan Problem List: (1) Chest pain ICD Codes: R07.9 - Chest pain, unspecified Plan: Pleuritic Chest Pain EKG sinus rhythm RBBB, GA depressions in Limb Leads Troponin chronically elevated. Now minimally elevated and trending down. ECHO 2017. Normal LV systolic function EF 60% No need for invasive cardiac workup at this time. Chest Pain consistent with Pericarditis Recs: 1. Treat Pericarditis 2. CAD risk factor modification 3. Smoking cessation 4. [facility] Thank you for the opportunity to participate in the care of this patient Will be available on a PRN basis for any questions or concerns (2) CVA (cerebral vascular accident) ICD Codes: I63.9 - CVA (cerebral vascular accident) Status: Acute (3) Diabetes mellitus, type 2 ICD Codes: E11.9 - Type 2 diabetes mellitus Status: Chronic (4) HTN (hypertension) ICD Codes: I10 - Essential (primary) hypertension Status: Acute Anna-Israel Shah MD May 30, 2017 14:27
[2017-05-30] MEDS: RESP: ALBUTEROL 2.5 MG/IPRATROPIUM 0.5 MG NEB (SCH) NEB ×2 (14:32→20:28)
[2017-05-30] MEDS: PANTOPRAZOLE SOD 40 MG DELAYED RELEASE TAB PO SCH ×2 (15:55→20:43)
[2017-05-30] MEDS: INDOMETHACIN 50 MG CAP PO SCH ×2 (15:55→18:08)
[2017-05-30 18:29] LABS: BLOOD, URINE NEG (NEG); GLUCOSE,URINE NEG (NEG); KETONE, URINE NEG (NEG); NITRITE,URINE NEG (NEG); PH, URINE 6.5 (5.0-8.5); URINE COLOR YELLOW (YELLW/STRAW)
[2017-05-30 19:33] LABS: APTT (PATIENT) 23.3 SEC (24.3-30.1)
--- NOTE | 2017-05-30 19:43 | EKG ---
Date Performed: 05/30/2017 Time Performed: 05:41:17 PTAGE: 62 years EKG: Sinus rhythm LOW QRS VOLTAGE IN PRECORDIAL LEADS PATTERN CONSISTENT WITH PULMONARY DISEASE INCOMPLETE RIGHT BUNDL E BRANCH BLOCK MODERATE ST DEPRESSION Since previous tracing, no significant change noted ABNORMAL EC G PREVIOUS TRACING : 05/29/2017 22.37 DOCTOR: Kamilah Angeles Interpretating Date/Time 05/30/2017 19:42:54
--- NOTE | 2017-05-30 19:43 | EKG ---
Date Performed: 05/29/2017 Time Performed: 22:37:10 PTAGE: 62 years EKG: Sinus rhythm POSSIBLE LEFT ATRIAL ENLARGEMENT ST DEVIATION AND MODERATE T-WAVE ABNORMALITY, CONSIDER ANTERIOR ISC HEMIA Since previous tracing, no significant change noted ABNORMAL ECG PREVIOUS TRACING : 05/29/2017 14.11 DOCTOR: Kamilah Angeles Interpretating Date/Time 05/30/2017 19:42:37
--- NOTE | 2017-05-30 19:43 | EKG ---
Date Performed: 05/29/2017 Time Performed: 14:11:43 PTAGE: 62 years EKG: Sinus rhythm INCOMPLETE RIGHT BUNDLE BRANCH BLOCK Since previous tracing, no significant change noted BORDERLINE ECG PREVIOUS TRACING : 10/14/2016 12.03 DOCTOR: Kamilah Angeles Interpretating Date/Time 05/30/2017 19:42:18
[2017-05-30] MEDS: PRAVASTATIN SOD 40 MG TAB PO SCH (20:43)
[2017-05-31] VITALS (10 sets, daily range): BP systolic 123–169; BP diastolic 58–79; PULSE 64–81; RESP 17–18; TEMP 97–98.4; O2SAT 91–99
[2017-05-31] MEDS: INDOMETHACIN 50 MG CAP PO SCH ×3 (01:44→12:53)
[2017-05-31] MEDS: NITROGLYCERIN 2% OINT 1 GM PACKET TOP SCH ×3 (06:00→12:00)
[2017-05-31 06:52] LABS: AUTOMATED NEUTROPHIL # 5.6 TH/MM3 (1.8-7.7); BASOPHIL % 0.5 % (0.0-2.0); EOSINOPHIL # 0.1 TH/MM3 (0-0.4); EOSINOPHIL % 0.8 % (0.0-4.0); HEMATOCRIT 41.7 % (39.0-51.0); HEMO FLAGS DIFF FINAL; LYMPH % 27.7 % (9.0-44.0); LYMPHOCYTE # 2.5 TH/MM3 (1.0-4.8); MEAN CELL VOLUME 84.6 FL (80.0-100.0); MEAN CORPUSCULAR HEMOGLOBIN 28.4 PG (27.0-34.0); MEAN CORPUSCULAR HGB CONC 33.5 % (32.0-36.0); MONO % 8.2 % (0.0-8.0); NEUT % 62.8 % (16.0-70.0); PLATELET COUNT 235 TH/MM3 (150-450); RED BLOOD COUNT 4.93 MIL/MM3 (4.50-5.90); RED CELL DISTRIBUTION WIDTH 15.4 % (11.6-17.2); WHITE BLOOD COUNT 8.9 TH/MM3 (4.0-11.0)
[2017-05-31 07:21] LABS: ANION GAP 6 MEQ/L (5-15); AST (GOT) 50 U/L (15-37); BICARBONATE 29.2 MEQ/L (21.0-32.0); BLOOD UREA NITROGEN 26 MG/DL (7-18); CHLORIDE 100 MEQ/L (98-107); GLOMERULAR FILTRATION RATE 146 ML/MIN (>89); MAGNESIUM 1.8 MG/DL (1.5-2.5); POTASSIUM 3.6 MEQ/L (3.5-5.1); SODIUM (NA) 135 MEQ/L (136-145)
[2017-05-31] MEDS: RESP: ALBUTEROL 2.5 MG/IPRATROPIUM 0.5 MG NEB (SCH) NEB ×2 (07:21→13:02)
[2017-05-31 07:30] LABS: ALKALINE PHOSPHATASE 112 U/L (45-117); ALT (GPT) 23 U/L (12-78); FREE T4 1.27 NG/DL (0.76-1.46); TOTAL BILIRUBIN ADULT 0.3 MG/DL (0.2-1.0)
[2017-05-31] MEDS ORDERED: ASPIRIN EC 81 MG TABEC PO SCH (09:00)
[2017-05-31] MEDS ORDERED: INSULIN DETEMIR 100 UNITS/ML VIAL SQ SCH (09:00)
[2017-05-31] MEDS: SODIUM CHLORIDE 0.9% FLUSH 10 ML FLUSH IV FLUSH SCH (09:19)
[2017-05-31] MEDS: PANTOPRAZOLE SOD 40 MG DELAYED RELEASE TAB PO SCH (09:20)
[2017-05-31] MEDS: INSULIN ASPART SUPPLEMENTAL SCALE SQ SCH ×2 (09:20→12:53)
[2017-05-31 14:30] LABS: HEMOGLOBIN A1a 1.3 %; HEMOGLOBIN A1b 1.9 %; HEMOGLOBIN Ao 81.1 %; HEMOGLOBIN LA1C 3.2 %; HEMOGLOBIN P3 4.8 %
--- NOTE | 2017-05-31 15:04 | ECHRPT ---
Indication: Chest pain, unspecified CONCLUSIONS The left ventricle is not well visualized, however seems to have preserved LV function The right ventricular size is normal. The left atrium was not well visualized. The right atrium is not well visualized. The aortic root and proximal ascending aorta are not well visualized. The pulmonary valve is not well visualized. BP: / HR: Rhythm: MEASUREMENTS (Male / Female) Normal Values Technical Quality:Technically difficult study M-MODE Aortic Root Diameter MM 3.5 cm LA Systolic Diameter MM 4.0 cm LA Ao Ratio MM 1.1 DOPPLER Mitral E Point Velocity 66.5 cm/s Mitral A Point Velocity 90.9 cm/s Mitral E to A Ratio 0.7 FINDINGS LEFT VENTRICLE The left ventricle is not well visualized. The left ventricular systolic function is normal with an estimated ejection fraction in the range of 60-65%. RIGHT VENTRICLE The right ventricle was not well visualized. The right ventricular size is normal. LEFT ATRIUM The left atrium was not well visualized. The left atrial size is normal. RIGHT ATRIUM The right atrium is not well visualized. The right atrial size is normal. ATRIAL SEPTUM Normal atrial septal thickness without atrial level shunting by limited color doppler interrogation. AORTA The aortic root and proximal ascending aorta are not well visualized. MITRAL VALVE Structurally normal mitral valve. No mitral valve stenosis or regurgitation. AORTIC VALVE Trileaflet aortic valve. No aortic valve stenosis or regurgitation. TRICUSPID VALVE Structurally normal tricuspid valve. No tricuspid valve stenosis or regurgitation. PULMONARY VALVE The pulmonary valve is not well visualized. VESSELS The inferior vena cava is normal in size. PERICARDIUM No pericardial effusion. Israel Johnston MD (Electronically Signed) Final Date:31 May 2017 15:04
--- NOTE | 2017-05-31 16:32 | HHI.PR ---
Subjective Remarks 62-year-old male with a past medical history significant for hypertension, hyperlipidemia, type 2 diabetes mellitus and COPD presents with left sided chest pain/pressure since late night. He states the pain is worse with sitting up or leaning forward and is relieved when he lays back. He states it is constant and nonradiating. Chest pain is not reproducible on exam. He denies any diaphoresis, nausea/vomiting or shortness of breath. EKG shows an incomplete right bundle branch block, unchanged from previous. Laboratory values significant for a troponin of 0.10. The patient does have a history of elevated troponin in the setting of SBO, status post laparotomy for lysis of adhesions with subsequent respiratory failure requiring intubation in August of this year. EKG showed incomplete right bundle branch block without ST segment elevation or depression, unchanged from previous. 12- Follow up visit on 62-year-old male with PMH significant for HTN, HLD, COPD, and DM who presented to the ED with complaints of chest pain night. 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 Patient is seen and examined in room resting comfortably and in no acute distress. He is requesting something to eat as he is hungry. He denies chest pain at the moment, no SOB, nausea, vomiting, diarrhea, fever or chills. HAD POSITIVE TROPONINS [facility] CARDIOLOGY THINKS PERICARDITIS- NSAIDS PPI GIVE CARDIAC DIET 05-31 DENIES CHEST PAIN ECHO IS STABLE WANTS TO GO HOME TODAY WILL FOLLOW UP WITH THE [facility] CL[facility] DC TO HOME Objective Vitals Vital Signs Date Time Temp Pulse Resp B/P (MAP) Pulse Ox O2 Delivery O2 Flow Rate FiO2 05/31/17 15:32 97.8 80 18 128/59 (82) 91 05/31/17 12:37 97.0 75 18 132/59 (83) 93 05/31/17 09:32 98.0 81 18 169/79 (109) 99 05/31/17 07:39 77 05/31/17 07:23 95 Nasal Cannula 3.00 05/31/17 04:09 67 05/31/17 01:45 98.4 74 17 123/58 (79) 94 05/31/17 00:00 72 05/30/17 20:30 92 Nasal Cannula 2.00 05/30/17 20:05 74 05/30/17 19:53 98.3 76 17 110/58 (75) 94 05/30/17 16:54 72 05/30/17 16:27 97.7 76 18 154/73 (100) 95 I/O 05/30/17 05/30/17 05/30/17 05/31/17 05/31/17 05/31/17 07:00 15:00 23:00 07:00 15:00 23:00 Intake Total 540 ml 23.4 ml 480 ml Output Total 1200 ml 600 ml Balance -660 ml 23.4 ml -120 ml Intake Oral 540 ml 480 ml IV Total 23.4 ml Output Urine Total 1200 ml 600 ml # Voids 3 Result Diagram: 05/31/17 0535 05/31/17 0535 Other Results Laboratory Tests Test 05/29/17 14:30 05/29/17 21:10 05/30/17 03:40 05/30/17 11:00 White Blood Count 11.9 TH/MM3 11.7 TH/MM3 Red Blood Count 5.71 MIL/MM3 5.15 MIL/MM3 Hemoglobin 16.0 GM/DL 14.9 GM/DL Hematocrit 48.3 % 43.6 % Mean Corpuscular Volume 84.6 FL 84.6 FL Mean Corpuscular Hemoglobin 28.0 PG 28.9 PG Mean Corpuscular Hemoglobin Concent 33.2 % 34.2 % Red Cell Distribution Width 15.2 % 15.1 % Platelet Count 291 TH/MM3 269 TH/MM3 Mean Platelet Volume 8.8 FL 8.2 FL Neutrophils (%) (Auto) 64.5 % 86.4 % Lymphocytes (%) (Auto) 24.7 % 12.0 % Monocytes (%) (Auto) 7.7 % 1.2 % Eosinophils (%) (Auto) 2.2 % 0.0 % Basophils (%) (Auto) 0.9 % 0.4 % Neutrophils # (Auto) 7.7 TH/MM3 10.1 TH/MM3 Lymphocytes # (Auto) 2.9 TH/MM3 1.4 TH/MM3 Monocytes # (Auto) 0.9 TH/MM3 0.1 TH/MM3 Eosinophils # (Auto) 0.3 TH/MM3 0.0 TH/MM3 Basophils # (Auto) 0.1 TH/MM3 0.1 TH/MM3 CBC Comment DIFF FINAL DIFF FINAL Differential Comment Blood Urea Nitrogen 12 MG/DL 16 MG/DL Creatinine 0.50 MG/DL 0.59 MG/DL Random Glucose 138 MG/DL 300 MG/DL Total Protein 8.1 GM/DL 7.1 GM/DL Albumin 3.9 GM/DL 3.3 GM/DL Calcium Level 9.1 MG/DL 8.8 MG/DL Alkaline Phosphatase 159 U/L 144 U/L Aspartate Amino Transf (AST/SGOT) 75 U/L 52 U/L Alanine Aminotransferase (ALT/SGPT) 32 U/L 29 U/L Total Bilirubin 0.4 MG/DL 0.4 MG/DL Sodium Level 135 MEQ/L 133 MEQ/L Potassium Level 3.6 MEQ/L 4.3 MEQ/L Chloride Level 97 MEQ/L 97 MEQ/L Carbon Dioxide Level 28.1 MEQ/L 29.9 MEQ/L Anion Gap 10 MEQ/L 6 MEQ/L Estimat Glomerular Filtration Rate 170 ML/MIN 140 ML/MIN Troponin I 0.10 NG/ML 0.07 NG/ML 0.06 NG/ML Lipase 99 U/L Total Creatine Kinase 2475 U/L 2130 U/L Creatine Kinase MB 73.5 NG/ML 61.3 NG/ML Creatine Kinase MB % 3.0 % 2.9 % Prothrombin Time 11.0 SEC Prothromb Time International Ratio 1.1 RATIO Activated Partial Thromboplast Time 25.9 SEC Test 05/30/17 11:35 05/30/17 18:10 05/30/17 19:00 05/31/17 05:35 White Blood Count 13.9 TH/MM3 8.9 TH/MM3 Red Blood Count 5.00 MIL/MM3 4.93 MIL/MM3 Hemoglobin 13.8 GM/DL 14.0 GM/DL Hematocrit 42.3 % 41.7 % Mean Corpuscular Volume 84.6 FL 84.6 FL Mean Corpuscular Hemoglobin 27.6 PG 28.4 PG Mean Corpuscular Hemoglobin Concent 32.7 % 33.5 % Red Cell Distribution Width 15.3 % 15.4 % Platelet Count 283 TH/MM3 235 TH/MM3 Mean Platelet Volume 8.5 FL 8.4 FL Hemoglobin A1c 7.1 % 7.1 % Triglycerides Level 89 MG/DL Cholesterol Level 132 MG/DL LDL Cholesterol 91 MG/DL HDL Cholesterol 23.6 MG/DL Cholesterol/HDL Ratio 5.59 RATIO Urine Color YELLOW Urine Turbidity CLEAR Urine pH 6.5 Urine Specific [place] 1.022 Urine Protein TRACE mg/dL Urine Glucose (UA) NEG mg/dL Urine Ketones NEG mg/dL Urine Occult Blood NEG Urine Nitrite NEG Urine Bilirubin NEG Urine Urobilinogen 2.0 MG/DL Urine Leukocyte Esterase NEG Urine WBC LESS THAN 1 /hpf Activated Partial Thromboplast Time 23.3 SEC Neutrophils (%) (Auto) 62.8 % Lymphocytes (%) (Auto) 27.7 % Monocytes (%) (Auto) 8.2 % Eosinophils (%) (Auto) 0.8 % Basophils (%) (Auto) 0.5 % Neutrophils # (Auto) 5.6 TH/MM3 Lymphocytes # (Auto) 2.5 TH/MM3 Monocytes # (Auto) 0.7 TH/MM3 Eosinophils # (Auto) 0.1 TH/MM3 Basophils # (Auto) 0.0 TH/MM3 CBC Comment DIFF FINAL Differential Comment Blood Urea Nitrogen 26 MG/DL Creatinine 0.57 MG/DL Random Glucose 237 MG/DL Total Protein 6.2 GM/DL Albumin 3.0 GM/DL Calcium Level 8.2 MG/DL Phosphorus Level 3.7 MG/DL Magnesium Level 1.8 MG/DL Alkaline Phosphatase 112 U/L Aspartate Amino Transf (AST/SGOT) 50 U/L Alanine Aminotransferase (ALT/SGPT) 23 U/L Total Bilirubin 0.3 MG/DL Sodium Level 135 MEQ/L Potassium Level 3.6 MEQ/L Chloride Level 100 MEQ/L Carbon Dioxide Level 29.2 MEQ/L Anion Gap 6 MEQ/L Estimat Glomerular Filtration Rate 146 ML/MIN Free Thyroxine 1.27 NG/DL Thyroid Stimulating Hormone 3rd Gen 0.882 uIU/ML Imaging Last Impressions Chest X-Ray 05/29/17 1435 Signed Impressions: Service Date/Time: Monday, May 29, 2017 14:45 - CONCLUSION: 1. Changes of obstructive pulmonary disease with biapical bullous change. 2. No acute abnormality or significant interval change. Feliberto Duong MD CT Angiography 05/29/17 0000 Signed Impressions: Service Date/Time: Monday, May 29, 2017 17:16 - CONCLUSION: 1. No CT evidence of pulmonary artery embolism to the subsegmental level. 2. Moderate to severe coronary artery calcifications. 3. Redemonstration of severe centrilobular emphysema with small 4-5 mm nodules in the right lower lobe. Overall, this is improved from patchy bilateral nodular airspace disease noted in September. Consider followup examination in 3-6 months per 2017 Fleischner criteria. 4. Redemonstration of nonspecific mediastinal adenopathy with interval development of left hilar adenopathy. This can also be reevaluated on followup imaging. Feliberto Duong MD Objective Remarks GENERAL: male lying down in bed, in no acute distress. SKIN: No rashes, ecchymoses or lesions. Cool and dry. HEAD: Atraumatic. Normocephalic. EYES: No scleral icterus. No injection or drainage. ENT: Airway patent. Tongue is midline or mucosa is moist NECK: Trachea midline. No JVD. CARDIOVASCULAR: Regular rate and rhythm without murmurs, gallops, or rubs. S1 and S2 no S3 or S4 no heave or thrill or rub or gallop RESPIRATORY: Distant breath sounds. No wheezes, rales, rhonchi. GASTROINTESTINAL: Abdomen soft, non-tender, nondistended. MUSCULOSKELETAL: Extremities without clubbing, cyanosis, or edema. No joint tenderness, effusion, or edema noted. NEUROLOGICAL: Awake and alert. Motor and sensory grossly within normal limits. Normal speech. Motor strength is 5 over 5 in upper extremity and lower extremity bilaterally cranial nerves 2-12 grossly intact Insight and judgment is good mood and behaviors appropriate Procedures NONE Medications and IVs Current Medications Sodium Chloride (NS Flush) 2 ml UNSCH PRN IVF FLUSH AFTER USING IV ACCESS; Start 05/29/17 at 14:45; Stop 05/29/17 at 18:45; Status DC Albuterol/ Ipratropium (Duoneb Neb) 1 ampule ONCE ONCE NEB Last administered on 05/29/17 15:09; Start 05/29/17 at 14:45; Stop 05/29/17 at 14:46; Status DC Methylprednisolone Sodium Succinate (SoluMEDROL INJ) 125 mg ONCE ONCE IV PUSH Last administered on 05/29/17 14:51; Start 05/29/17 at 14:45; Stop 05/29/17 at 14:46; Status DC Morphine Sulfate (Morphine Inj) 4 mg ONCE ONCE IV PUSH Last administered on 14:51; Start 05/29/17 at 14:45; Stop 05/29/17 at 14:46; Status DC Iohexol (Omnipaque 350 Inj) 60 ml STK-MED ONCE IVCONTRAST Last administered on 05/29/17 17:29; Start 05/29/17 at 17:29; Stop 05/29/17 at 17:30; Status DC Aspirin (Aspirin Chew) 162 mg ONCE ONCE CHEW Last administered on 05/29/17 18 :38; Start 05/29/17 at 18:15; Stop 05/29/17 at 18:16; Status DC Sodium Chloride (NS Flush) 2 ml BID IV FLUSH Last administered on 05/31/17 09: 19; Start 05/29/17 at 21:00 Sodium Chloride (NS Flush) 2 ml UNSCH PRN IV FLUSH FLUSH AFTER USING IV ACCESS ; Start 05/29/17 at 18:30 Nitroglycerin (Nitroglycerin 2% Oint) 1 inch Q6HR TOP Last administered on 05/30 00:28; Start 05/30/17 at 00:00 Acetaminophen (Tylenol) 500 mg Q4H PRN PO HEADACHE; Start 05/29/17 at 18:30 Heparin Sodium (Porcine) (Heparin Inj) 5,000 units Q12H SQ Last administered on 05/30/17 09:21; Start 05/29/17 at 21:00; Stop 05/30/17 at 10:53; Status DC Albuterol/ Ipratropium (Duoneb Neb) 1 ampule Q4HR NEB PRN NEB SOB/Wheezing; Start 05/29/17 at 18:30 Morphine Sulfate (Morphine Inj) 4 mg Q4H PRN IV PUSH pain 6-10; Start 05/29/17 at 18:30 Clonidine (Catapres) 0.1 mg Q6H PRN PO SBP>160, DBP>100; Start 05/29/17 at 18: 45 Dextrose (D50w (Vial) Inj) 50 ml UNSCH PRN IV PUSH HYPOGLYCEMIA-SEE COMMENTS; Start 05/29/17 at 18:45 Glucagon (Glucagon Inj) 1 mg UNSCH PRN OTHER HYPOGLYCEMIA-SEE COMMENTS; Start 05/29/17 at 18:45 Insulin Aspart (NovoLOG SUPPLEMENTAL SCALE) 1 ACHS SLIDING SCALE SQ Last administered on 12/5/17at 12:53; Start 05/29/17 at 21:00 Pravastatin Sodium (Pravachol) 40 mg HS PO Last administered on 05/30/17 20:43 ; Start 05/29/17 at 21:00 Albuterol/ Ipratropium (Duoneb Neb) 1 ampule Q6HR WHILE AWAKE NEB NEB Last administered on 05/31/17 13:02; Start 05/30/17 at 14:00 Heparin Sodium/ Dextrose 250 ml @ 8 mls/hr TITRATE PRN IV Coagulation Management Last administered on 05/30/17 12:52; Start 05/30/17 at 10:45; Stop 05/30/17 at 14:38; Status DC Aspirin (Ecotrin Ec) 81 mg DAILY PO ; Start 05/31/17 at 09:00; Stop 05/31/17 at 09:00; Status DC Sodium Chloride 1,000 ml @ 84 mls/hr [id number] IV ; Start 05/30/17 at 14:00; Stop 05/30/17 at 14:38; Status DC Indomethacin (Indocin) 50 mg Q6HR PO Last administered on 05/31/17 12:53; Start 05/30/17 at 14:45 Pantoprazole Sodium (Protonix) 40 mg Q12HR PO Last administered on 05/31/17 09 :20; Start 05/30/17 at 14:45 Insulin Detemir (Levemir Inj) 5 units DAILY SQ Last administered on 05/31/17 09:20; Start 05/31/17 at 09:00 A/P Assessment and Plan 62-year-old male with PMH significant for HTN, HLD, COPD, and DM who presented to the ED with complaints of chest pain night. Currently no chest pain complaints, mentioned he wanted to leave if he was not able to get anything to eat. Chest pain with positive troponin - Troponin trend reviewed: 0.1, 0.07, 0.06 - 1st EKG showing SR with incomplete right BBB - 2nd EKG showing SR with low QRS voltage in perecordial leads, pattern consistent with pulmonary disease, incomplete right bundle branch block, moderate ST depression - 3rd EKG showing sinus rhythm with possible left atrial enlargement, ST deviation and moderate T-wave abnormality, consider anterior ischemia - Chest pain free now - Cardiology consult placed, appreciate recommendations - Placed on ASA, statin - Check lipids, and Hemoglobin A1C - Cardiology feels this is pericarditis we'll start on Indocin. As well as Protonix twice a day stop aspirin stop heparin DM, chronic - Accu-checks ISS with coverage as needed - ADA diet when appropriate - Checking Hemoglobin A1C - COPD, stable in no exacerbation - Chest x-ray reviewed showing obstructive pulmonary disease with biapical bullous changes. - CTA of chest reviewed with no PE, moderate to severe coronary artery calcifications. Redemonstration of severe centrilobular emphysema with small 4- 5mm nodule in the right lower lobe. This is overall an improvement from patchy bilateral nodular airspace disease noted in September. Redemonstration of nonspecific mediastinal adenopathy with interval development of the left hilar adenopathy. - Radiologist recommends 3-6 month followup imaging per 2017 [place] on right lower lobe nodule as well as left hilar adenopathy. - Duonebs as needed - Monitor respiratory status HLD - Statin ordered - Checking lipid profile PERICARDITIS- CONTINUE NSAIDS, AND PPI VTE: Lovenox low-dose CLEARED BY CARDIO DC TO HOME Discharge Planning PT and OT increase ambulation Chan Jo DO May 31, 2017 16:32
[2017-05-31] MEDS ORDERED: PRAV40TA PO (16:36)
[2017-05-31] MEDS ORDERED: INDO50CA PO (16:36)
[2017-05-31] MEDS ORDERED: PANT40TA3 PO (16:36)
--- NOTE | 2017-05-31 16:39 | HHI.DS ---
Discharge Summary Admission Date May 29, 2017 at 18:11 Discharge Date: May 31, 2017 Admitting Diagnosis chest pain (1) ETOH abuse ICD Code: F10.10 - ETOH abuse Diagnosis: Secondary Status: Chronic (2) Alcohol abuse ICD Code: F10.10 - Alcohol abuse Diagnosis: Secondary Status: Acute (3) Diabetes mellitus, type 2 ICD Code: E11.9 - Type 2 diabetes mellitus Diagnosis: Secondary Status: Chronic (4) HTN (hypertension) ICD Code: I10 - Essential (primary) hypertension Diagnosis: Secondary Status: Acute (5) Chronic obstructive pulmonary disease ICD Code: J44.9 - Chronic obstructive pulmonary disease Diagnosis: Secondary Status: Chronic (6) GERD (gastroesophageal reflux disease) ICD Code: K21.9 - GERD (gastroesophageal reflux disease) Diagnosis: Secondary Status: Chronic (7) Pericarditis ICD Code: I31.9 - Disease of pericardium, unspecified Diagnosis: Principal Procedures NONE Brief History - From Admission 62-year-old male with a past medical history significant for hypertension, hyperlipidemia, type 2 diabetes mellitus and COPD presents with left sided chest pain/pressure since late night. He states the pain is worse with sitting up or leaning forward and is relieved when he lays back. He states it is constant and nonradiating. Chest pain is not reproducible on exam. He denies any diaphoresis, nausea/vomiting or shortness of breath. EKG shows an incomplete right bundle branch block, unchanged from previous. Laboratory values significant for a troponin of 0.10. The patient does have a history of elevated troponin in the setting of SBO, status post laparotomy for lysis of adhesions with subsequent respiratory failure requiring intubation in August of this year. EKG showed incomplete right bundle branch block without ST segment elevation or depression, unchanged from previous. CBC/BMP: 05/31/17 0535 05/31/17 0535 Significant Findings Laboratory Tests Test 05/29/17 14:30 05/29/17 21:10 05/30/17 03:40 05/30/17 11:00 White Blood Count 11.9 TH/MM3 (4.0-11.0) 11.7 TH/MM3 (4.0-11.0) Creatinine 0.50 MG/DL (0.60-1.30) 0.59 MG/DL (0.60-1.30) Random Glucose 138 MG/DL (74-106) 300 MG/DL (74-106) Alkaline Phosphatase 159 U/L (45-117) 144 U/L (45-117) Aspartate Amino Transf (AST/SGOT) 75 U/L (15-37) 52 U/L (15-37) Sodium Level 135 MEQ/L (136-145) 133 MEQ/L (136-145) Chloride Level 97 MEQ/L (98-107) 97 MEQ/L (98-107) Troponin I 0.10 NG/ML (0.02-0.05) 0.07 NG/ML (0.02-0.05) 0.06 NG/ML (0.02-0.05) Total Creatine Kinase 2475 U/L (39-308) 2130 U/L (39-308) Creatine Kinase MB 73.5 NG/ML (0.5-3.6) 61.3 NG/ML (0.5-3.6) Neutrophils (%) (Auto) 86.4 % (16.0-70.0) Neutrophils # (Auto) 10.1 TH/MM3 (1.8-7.7) Albumin 3.3 GM/DL (3.4-5.0) Test 05/30/17 11:35 05/30/17 18:10 05/30/17 19:00 05/31/17 05:35 White Blood Count 13.9 TH/MM3 (4.0-11.0) Hemoglobin A1c 7.1 % (4.3-6.0) 7.1 % (4.3-6.0) HDL Cholesterol 23.6 MG/DL (40.0-60.0) Activated Partial Thromboplast Time 23.3 SEC (24.3-30.1) Monocytes (%) (Auto) 8.2 % (0.0-8.0) Blood Urea Nitrogen 26 MG/DL (7-18) Creatinine 0.57 MG/DL (0.60-1.30) Random Glucose 237 MG/DL (74-106) Total Protein 6.2 GM/DL (6.4-8.2) Albumin 3.0 GM/DL (3.4-5.0) Calcium Level 8.2 MG/DL (8.5-10.1) Aspartate Amino Transf (AST/SGOT) 50 U/L (15-37) Sodium Level 135 MEQ/L (136-145) Imaging Last Impressions Chest X-Ray 05/29/17 1435 Signed Impressions: Service Date/Time: Monday, May 29, 2017 14:45 - CONCLUSION: 1. Changes of obstructive pulmonary disease with biapical bullous change. 2. No acute abnormality or significant interval change. Feliberto Duong MD CT Angiography 05/29/17 0000 Signed Impressions: Service Date/Time: Monday, May 29, 2017 17:16 - CONCLUSION: 1. No CT evidence of pulmonary artery embolism to the subsegmental level. 2. Moderate to severe coronary artery calcifications. 3. Redemonstration of severe centrilobular emphysema with small 4-5 mm nodules in the right lower lobe. Overall, this is improved from patchy bilateral nodular airspace disease noted in September. Consider followup examination in 3-6 months per 2017 Fleischner criteria. 4. Redemonstration of nonspecific mediastinal adenopathy with interval development of left hilar adenopathy. This can also be reevaluated on followup imaging. Feliberto Duong MD PE at Discharge GENERAL: male lying down in bed, in no acute distress. SKIN: No rashes, ecchymoses or lesions. Cool and dry. HEAD: Atraumatic. Normocephalic. EYES: No scleral icterus. No injection or drainage. ENT: Airway patent. Tongue is midline or mucosa is moist NECK: Trachea midline. No JVD. CARDIOVASCULAR: Regular rate and rhythm without murmurs, gallops, or rubs. S1 and S2 no S3 or S4 no heave or thrill or rub or gallop RESPIRATORY: Distant breath sounds. No wheezes, rales, rhonchi. GASTROINTESTINAL: Abdomen soft, non-tender, nondistended. MUSCULOSKELETAL: Extremities without clubbing, cyanosis, or edema. No joint tenderness, effusion, or edema noted. NEUROLOGICAL: Awake and alert. Motor and sensory grossly within normal limits. Normal speech. Motor strength is 5 over 5 in upper extremity and lower extremity bilaterally cranial nerves 2-12 grossly intact Insight and judgment is good mood and behaviors appropriate Hospital Course 62-year-old male with a past medical history significant for hypertension, hyperlipidemia, type 2 diabetes mellitus and COPD presents with left sided chest pain/pressure since late night. He states the pain is worse with sitting up or leaning forward and is relieved when he lays back. He states it is constant and nonradiating. Chest pain is not reproducible on exam. He denies any diaphoresis, nausea/vomiting or shortness of breath. EKG shows an incomplete right bundle branch block, unchanged from previous. Laboratory values significant for a troponin of 0.10. The patient does have a history of elevated troponin in the setting of SBO, status post laparotomy for lysis of adhesions with subsequent respiratory failure requiring intubation in August of this year. EKG showed incomplete right bundle branch block without ST segment elevation or depression, unchanged from previous. 12-4 Follow up visit on 62-year-old male with PMH significant for HTN, HLD, COPD, and DM who presented to the ED with complaints of chest pain night. 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 Patient is seen and examined in room resting comfortably and in no acute distress. He is requesting something to eat as he is hungry. He denies chest pain at the moment, no SOB, nausea, vomiting, diarrhea, fever or chills. HAD POSITIVE TROPONINS DW CARDIOLOGY THINKS PERICARDITIS- NSAIDS PPI GIVE CARDIAC DIET 12-5 DENIES CHEST PAIN ECHO IS STABLE WANTS TO GO HOME TODAY WILL FOLLOW UP WITH THE [facility] DC TO HOME NEEDS TO TAKE UNKNOWN HOME MEDICATIONS FOR, DM HTN HLP Pt Condition on Discharge: Good Discharge Disposition: Discharge Home Discharge Time: <= 30 minutes Discharge Instructions DIET: Follow Instructions for: Heart Healthy Diet, Diabetic Diet Speech Therapy-Diet Recommends: Regular Activities you can perform: Regular-No Restrictions Follow up Referrals: PCP Follow-up - 06/01/17 with [facility] New Medications: Indomethacin (Indomethacin) 50 Mg Cap 50 MG PO Q6HR for Inflammation, #40 CAP Take with food, milk, or antacids to decrease stomach adverse effects. Pantoprazole (Pantoprazole) 40 Mg Tab 40 MG PO Q12HR for Heartburn Management, #60 TAB Pravastatin (Pravachol) 40 Mg Tab 40 MG PO HS for Cholesterol Management, #30 TAB Continued Medications: [blood pressure pill] () [cholesterol pill] () [diabetes pill] () Chan Jo DO May 31, 2017 16:39
== END 2017-05-31 17:07 | disposition home or self-care (01) ==
LOC: NEPC 13:53 → NEDA 18:11 → NEPGCP 19:21
PROVIDERS: ADMIT Hospitalist; ATTEND Hospitalist
DX: R07.89 Other chest pain (principal); R74.8 Abnormal levels of other serum enzymes; R59.0 Localized enlarged lymph nodes; R05 Cough; D72.829 Elevated white blood cell count, unspecified; I25.10 Atherosclerotic heart disease of native coronary artery without angina pectoris; I11.0 Hypertensive heart disease with heart failure; I50.9 Heart failure, unspecified; R94.31 Abnormal electrocardiogram [ECG] [EKG]; J44.9 Chronic obstructive pulmonary disease, unspecified; E11.9 Type 2 diabetes mellitus without complications; I48.91 Unspecified atrial fibrillation; E78.00 Pure hypercholesterolemia, unspecified; I45.10 Unspecified right bundle-branch block; R91.1 Solitary pulmonary nodule; K21.9 Gastro-esophageal reflux disease without esophagitis; I31.9 Disease of pericardium, unspecified; J43.2 Centrilobular emphysema; F10.10 Alcohol abuse, uncomplicated; F17.210 Nicotine dependence, cigarettes, uncomplicated
CPT/HCPCS: 71010; 71275; 80053; 80061; 81001; 82550; 82552; 82948; 83036; 83690; 83735; 84100; 84439; 84443; 84484; 85025; 85027; 85610; 85730; 93005; 93306; 94640; 94664; 96365; 96372; 96375; 97161; 99285; G0378; G8987; G8988; J1644; J1815; J2270; J2930; Q9967

== ENCOUNTER 2017-07-10 14:58 | Inpatient (IN) | payer OTHER ==
[2017-07-10] VITALS (8 sets, daily range): BP systolic 94–167; BP diastolic 52–89; PULSE 80–89; RESP 18–20; TEMP 98–98.3; O2SAT 93–96
[~2017-07-10] VITALS: Ht 182.9 cm; Wt 69.5 kg
[~2017-07-10 14:58] MED LIST changes: -ALBU0.08 NEB; -APIX5TAB PO; -BUDE.5I NEB; -FLUT50SP NASAL; +INDO50CA PO; -LEVEMIR SQ; -LISI10TA3 PO; -LORA-361 PO; -MILKSUS PO; -MUCI600T PO; -NORC5TAB PO; -NOVORP2 SQ; +PANT40TA3 PO; +PRAV40TA PO; -VANC500I3 PO; +[UNRECOGNIZED DRUG - REMARK]; +blood pressure pill; +cholesterol pill
[2017-07-10] MEDS ORDERED: SODIUM CHLORIDE 0.9% FLUSH 10 ML FLUSH IVF PRN (16:00)
--- NOTE | 2017-07-10 16:00 | PD ---
Physical Exam Time Seen by Provider: 15:57 Narrative 62-year-old male c/o chest pain since last night. Thought it was heart burn, but hasn't gone away. Was seen here Dec 3 for chest pain also. + little SOB. Hx COPD. C/o of right facial pain since Tuesday. Thinks he may have an abscess tooth. Denies fevers, vomiting. Patient seen in triage. VS reviewed. Awaiting bed placement. See next providers note for final patient disposition. Data Data Last Documented VS Vital Signs Date Time Temp Pulse Resp B/P (MAP) Pulse Ox O2 Delivery O2 Flow Rate FiO2 07/10/17 15:02 98.3 85 20 167/79 (108) Room Air Orders Orders Electrocardiogram (07/10/17 16:00) Basic Metabolic Panel (Bmp) (07/10/17 16:00) Ckmb (Isoenzyme) Profile (07/10/17 16:00) Complete Blood Count With Diff (07/10/17 16:00) Magnesium (Mg) (07/10/17 16:00) Prothrombin Time / Inr (Pt) (07/10/17 16:00) Act Partial Throm Time (Ptt) (07/10/17 16:00) Troponin I (07/10/17 16:00) Chest, Single Ap (07/10/17 16:00) Ecg Monitoring (07/10/17 16:00) Iv Access Insert/Monitor (07/10/17 16:00) Oximetry (07/10/17 16:00) Oxygen Administration (07/10/17 16:00) Sodium Chloride 0.9% Flush (Ns Flush) (07/10/17 16:00) [facility] Supervised Visit with KEMAR: Dahlia Foote Jul 10, 2017 15:59
[2017-07-10 16:22] LABS: AUTOMATED NEUTROPHIL # 11.6 TH/MM3 (1.8-7.7); BASOPHIL # 0.1 TH/MM3 (0-0.2); BASOPHIL % 0.8 % (0.0-2.0); EOSINOPHIL # 0.3 TH/MM3 (0-0.4); EOSINOPHIL % 1.7 % (0.0-4.0); HEMATOCRIT 46.5 % (39.0-51.0); HEMOGLOBIN 15.4 GM/DL (13.0-17.0); LYMPH % 18.1 % (9.0-44.0); LYMPHOCYTE # 2.9 TH/MM3 (1.0-4.8); MEAN CELL VOLUME 84.1 FL (80.0-100.0); MEAN CORPUSCULAR HEMOGLOBIN 27.8 PG (27.0-34.0); MEAN PLATELET VOLUME 7.9 FL (7.0-11.0); MONO % 7.4 % (0.0-8.0); MONOCYTE # 1.2 TH/MM3 (0-0.9); PLATELET COUNT 281 TH/MM3 (150-450); RED BLOOD COUNT 5.53 MIL/MM3 (4.50-5.90); RED CELL DISTRIBUTION WIDTH 14.6 % (11.6-17.2); WHITE BLOOD COUNT 16.1 TH/MM3 (4.0-11.0)
[2017-07-10 16:30] LABS: PROTHROMBIN TIME - PATIENT 10.4 SEC (9.8-11.6)
[2017-07-10 16:36] LABS: BICARBONATE 33.5 MEQ/L (21.0-32.0); CALCIUM 9.2 MG/DL (8.5-10.1); CREATININE 0.57 MG/DL (0.60-1.30); MAGNESIUM 1.8 MG/DL (1.5-2.5)
--- NOTE | 2017-07-10 16:48 | RADRPT ---
EXAM DATE/TIME: 07/10/2017 16:20 [place] COMPARISON: CHEST PA & LAT, October 19, 2016, 13:49. CHEST SINGLE AP, October 22, 2016, 6:09. CHEST SINGLE AP, Dece mber 2016, 14:45. INDICATIONS : Bilateral upper chest pain with cough and shortness of breath. MEDICAL HISTORY : Hypertension. Diabetes mellitus type II. SURGICAL HISTORY : None. ENCOUNTER: Initial ACUITY: 1 week PAIN SCORE: 3/10 LOCATION: Bilateral chest FINDINGS: 2 PA views of the chest were obtained and again demonstrate hyperinflation and underlying emphysema. There is chronic scarring in the right lung apex with right apical pleural-parenchymal change. There is new mild patchy opacity in the right lung base. The left lung is clear. The heart and mediastinal structures remain within normal limits. The bony thorax is intact. CONCLUSION: 1. Mild patchy opacity now noted right lung base which could represent early pneumonia. 2. Chronic scarring and underlying emphysema. Bret Peterson MD on July 10, 2017 at 16:44 Board Certified Radiologist. This report was verified electronically.
[2017-07-10 16:51] LABS: TROPONIN I 0.18 NG/ML (0.02-0.05)
[2017-07-10] MEDS ORDERED: GLIP10TA6 PO (16:51)
[2017-07-10] MEDS ORDERED: LISI-519 PO (16:51)
[2017-07-10] MEDS ORDERED: OMEP20TA93 PO (16:51)
[2017-07-10] MEDS ORDERED: ASPI-516 CHEW (16:51)
--- NOTE | 2017-07-10 17:53 | PD ---
HPI Chief Complaint: Chest Pain Time Seen by Provider: 17:03 Travel History International Travel<30 days: No Contact w/Intl Traveler<30days: No Traveled to known affect area: No History of Present Illness HPI The patient 62 years old and arrives to the ER with a complaint of chest pain and wheezing and sore throat. He reports a cough. The patient is 62 years old. He has chest pain. Started last night at rest. Initially thought it might of been reflux related pain however it is persistent. He reports some shortness of breath. The pain is worse with laying supine. He has a history of COPD and smokes. He reports pain in the region of the right throat and believes it might be due to infection of the tooth. Pain is retrosternal. Pain is moderately severe. PFSH Past Medical History Arthritis: No Asthma: No Atrial Fibrillation: Yes Autoimmune Disease: No Blood Disorders: No Anxiety: No Depression: No Heart Rhythm Problems: No Cancer: No Cardiovascular Problems: Yes High Cholesterol: Yes Chemotherapy: No Chest Pain: No Congestive Heart Failure: No COPD: Yes Cerebrovascular Accident: No Diabetes: Yes Patient Takes Glucophage: No Diminished Hearing: No Endocrine: Yes Gastrointestinal Disorders: Yes (BOWEL OBSTRUCTION ) GERD: Yes Genitourinary: No Headaches: Yes Hiatal Hernia: No Hypertension: Yes Immune Disorder: No Implanted Vascular Access Dvce: Yes Kidney Stones: No Musculoskeletal: No Neurologic: No Psychiatric: No Reproductive: No Respiratory: Yes Immunizations Current: Yes Migraines: No Pancreatitis: Yes Pneumonia: Yes Radiation Therapy: No Renal Failure: No Seizures: No Sickle Cell Disease: No Sleep Apnea: No Thyroid Disease: No Ulcer: No Tetanus Vaccination: < 5 Years Past Surgical History Abdominal Surgery: Yes ("STENT IN SPLEEN" 10 yrs ago,bowel resection surgery 2016) AICD: No Arteriovenous Shunt: No Body Medical Devices: "STENT IN SPLEEN" Cardiac Surgery: No Ear Surgery: No Endocrine Surgery: No Eye Surgery: No Genitourinary Surgery: No Gynecologic Surgery: No Insulin Pump: No Joint Replacement: No Neurologic Surgery: No Oral Surgery: No Pacemaker: No Thoracic Surgery: No Other Surgery: Yes (BACK SURGERY 25 YEARS AGO, ABD SX) Social History Alcohol Use: No Tobacco Use: Yes (06/30 ppd) Substance Use: No Allergies-Medications (Allergen,Severity, Reaction): Coded Allergies: penicillin G (Unverified Allergy, Severe, SWELLING, 07/10/17) has tolerated Cephalosporins in previous admissions *MDRO Multi-Drug Resistant Organism (Verified Adverse Reaction, Unknown, ) Hx MRSA Sputum 2006, Wounds 2003 MRSA PCR Screen negative 11/25/14 & 09/10/15. Cleared per Infection Control. Patient does not require isolation for hx of MRSA prior to 09/10/15. Reported Meds & Prescriptions Reported Meds & Active Scripts Active Pravachol (Pravastatin) 40 Mg Tab 40 Mg PO HS Reported Aspirin 81 Mg Chew 81 Mg CHEW DAILY Lisinopril 5 Mg Tab 5 Mg PO DAILY Glipizide 10 Mg Tab 10 Mg PO DAILY Take 30 minutes before a meal Omeprazole Unknown Strength Tab 10 Mg PO DAILY Review of Systems Except as stated in HPI: all other systems reviewed are Neg Physical Exam Narrative GENERAL: 62 yo M, WNWD, occasional cough SKIN: Warm and dry. HEAD: Atraumatic. Normocephalic. EYES: Pupils equal and round. No scleral icterus. No injection or drainage. ENT: No nasal bleeding or discharge. Mucous membranes pink and moist. There is soft tissue mass in the right posterior oropharynx approximately 2 cm in greatest diameter somewhat ulcerative erythematous. NECK: Trachea midline. No JVD. CARDIOVASCULAR: Heart rate about 80. Regular rhythm. RESPIRATORY: There is wheezing present bilaterally. Lung sounds are present bilaterally GASTROINTESTINAL: Abdomen soft, non-tender, nondistended. Hepatic and splenic margins not palpable. MUSCULOSKELETAL: Extremities without clubbing, cyanosis, or edema. No obvious deformities. NEUROLOGICAL: Awake and alert. No obvious cranial nerve deficits. Motor grossly within normal limits. Five out of 5 muscle strength in the arms and legs. Normal speech. PSYCHIATRIC: Appropriate mood and affect; insight and judgment normal. Data Data Last Documented VS Vital Signs Date Time Temp Pulse Resp B/P (MAP) Pulse Ox O2 Delivery O2 Flow Rate FiO2 07/10/17 17:04 18 95 Room Air 07/10/17 15:02 98.3 85 Orders Orders Electrocardiogram (07/10/17 16:00) Basic Metabolic Panel (Bmp) (07/10/17 16:00) Ckmb (Isoenzyme) Profile (07/10/17 16:00) Complete Blood Count With Diff (07/10/17 16:00) Magnesium (Mg) (07/10/17 16:00) Prothrombin Time / Inr (Pt) (07/10/17 16:00) Act Partial Throm Time (Ptt) (07/10/17 16:00) Troponin I (07/10/17 16:00) Chest, Single Ap (07/10/17 16:00) Ecg Monitoring (07/10/17 16:00) Iv Access Insert/Monitor (07/10/17 16:00) Oximetry (07/10/17 16:00) Oxygen Administration (07/10/17 16:00) Sodium Chloride 0.9% Flush (Ns Flush) (07/10/17 16:00) CKMB (07/10/17 16:09) CKMB% (07/10/17 16:09) Admit Order (Ed Use Only) (07/10/17 ) Medical Office Professional Instructor / Telemetry [email or web address] (07/10/17 17:53) Vital Signs (Adult) Q4H (07/10/17 17:53) Diet Heart Healthy (07/10/17 Dinner) Activity Bed Rest (07/10/17 17:53) Notify Dr: Other (07/10/17 17:53) Labs Laboratory Tests Test 07/10/17 16:09 White Blood Count 16.1 TH/MM3 Red Blood Count 5.53 MIL/MM3 Hemoglobin 15.4 GM/DL Hematocrit 46.5 % Mean Corpuscular Volume 84.1 FL Mean Corpuscular Hemoglobin 27.8 PG Mean Corpuscular Hemoglobin Concent 33.0 % Red Cell Distribution Width 14.6 % Platelet Count 281 TH/MM3 Mean Platelet Volume 7.9 FL Neutrophils (%) (Auto) 72.0 % Lymphocytes (%) (Auto) 18.1 % Monocytes (%) (Auto) 7.4 % Eosinophils (%) (Auto) 1.7 % Basophils (%) (Auto) 0.8 % Neutrophils # (Auto) 11.6 TH/MM3 Lymphocytes # (Auto) 2.9 TH/MM3 Monocytes # (Auto) 1.2 TH/MM3 Eosinophils # (Auto) 0.3 TH/MM3 Basophils # (Auto) 0.1 TH/MM3 CBC Comment DIFF FINAL Differential Comment Prothrombin Time 10.4 SEC Prothromb Time International Ratio 1.0 RATIO Activated Partial Thromboplast Time 25.3 SEC Blood Urea Nitrogen 9 MG/DL Creatinine 0.57 MG/DL Random Glucose 177 MG/DL Calcium Level 9.2 MG/DL Magnesium Level 1.8 MG/DL Sodium Level 133 MEQ/L Potassium Level 4.1 MEQ/L Chloride Level 95 MEQ/L Carbon Dioxide Level 33.5 MEQ/L Anion Gap 5 MEQ/L Estimat Glomerular Filtration Rate 146 ML/MIN Total Creatine Kinase 5145 U/L Creatine Kinase MB 149.0 NG/ML Creatine Kinase MB % 2.9 % Troponin I 0.18 NG/ML MDM Medical Decision Making Medical Screen Exam Complete: Yes Emergency Medical Condition: Yes Medical Record Reviewed: Yes Differential Diagnosis NSTEMI, unstable angina, coronary vasospasm, PE, PTX, aortic dissection, pericarditis, myocarditis, endocarditis, PNA, esophageal disease, aneurysm, musculoskeletal etiologies, anxiety, cocaine/sympathomimetic abuse Narrative Course CBC & BMP Diagram 07/10/17 16:09 Calcium Level 9.2, Magnesium Level 1.8 CK 5145 Tn 0.18 Patient rhabdomyolysis. Elevated troponin is nonspecific in this scenario. IV hydration started. The etiology of throat mass is uncertain however is concerning for neoplasia. Case discussed with Dr. Crocker. Diagnosis Primary Impression: Chest pain Additional Impressions: Abnormal laboratory test result Mass of throat Rhabdomyolysis Admitting Information Admitting Physician Requests: Admit Kishor Vincent MD Jul 10, 2017 17:53
[2017-07-10] MEDS ORDERED: SODIUM CHLOR 0.9% 1000 ML INJ 1,000 ML IV ONE (18:15)
[2017-07-10] MEDS ORDERED: ASPIRIN 325 MG TAB PO ONE (18:15)
[2017-07-10] MEDS ORDERED: ACETAMINOPHEN 325 MG TAB PO PRN (18:30)
[2017-07-10] MEDS ORDERED: SODIUM CHLORIDE 0.9% FLUSH 10 ML FLUSH IV FLUSH PRN (18:30)
[2017-07-10] MEDS ORDERED: SENNOSIDES 8.6 MG TAB PO PRN (18:30)
[2017-07-10] MEDS ORDERED: ONDANSETRON HCL 4 MG/2 ML VIAL IVP PRN (18:30)
[2017-07-10] MEDS ORDERED: BISACODYL 10 MG SUPP RECTAL PRN (18:30)
[2017-07-10] MEDS ORDERED: MAGNESIUM HYDROXIDE SUSP 30 ML CUP PO PRN (18:30)
[2017-07-10] MEDS ORDERED: LACTULOSE SYRUP 20 GM/30 ML CUP PO PRN (18:30)
[2017-07-10] MEDS ORDERED: GLUCAGON 1 MG/ML VIAL OTHER PRN (18:45)
[2017-07-10] MEDS ORDERED: DEXTROSE 50% IN WATER 50 ML VIAL(D50) IV PUSH PRN (18:45)
--- NOTE | 2017-07-10 19:10 | HHI.HP ---
[facility] Admission Diagnosis NSTEMI; URI; Poss Head/Neck Ca Diagnoses: Travel History International Travel<30 Days: No Contact w/Intl Traveler <30 Da: No Traveled to Known Affected Are: No History of Present Illness 62-year-old male with a past medical history significant for hypertension, hyperlipidemia, type 2 diabetes mellitus and COPD presents with chest and mouth pain. The patient reports that he has been suffering from severe mouth and throat pain since Tuesday. He describes the pain as a constant aching with intermittent stabbing. He also endorses chest pain that began late Tuesday night. He states it feels as though someone is "leaning on his chest." He endorses mild shortness of breath and a nonproductive cough. Patient denies any recent falls or prolonged periods of inactivity. Vital signs: Temperature 98.3, pulse 85, respiratory rate 20, BP 167/79, pulse ox 95% on room air. Patient has a leukocytosis of 16.1. His total creatinine kinase is 5145. Troponin elevated at 0.18. Chest x-ray showed mild patchy opacity in the right lung base. Review of Systems Denies fever or chills Denies blurry vision, otorrhea, rhinorrhea Positive throat pain and nonproductive cough Positive chest pain and shortness of breath No abdominal pain Denies constipation/diarrhea/nausea/vomiting Denies muscle pain/weakness No rashes Past Family Social History Past Medical History COPD Hyperlipidemia Type 2 diabetes mellitus Past Surgical History Laparotomy with lysis of adhesions in August 2016 Pilonidal cyst Reported Medications Reported Meds & Active Scripts Active Pravachol (Pravastatin) 40 Mg Tab 40 Mg PO HS Reported Aspirin 81 Mg Chew 81 Mg CHEW DAILY Lisinopril 5 Mg Tab 5 Mg PO DAILY Glipizide 10 Mg Tab 10 Mg PO DAILY Take 30 minutes before a meal Omeprazole Unknown Strength Tab 10 Mg PO DAILY Allergies: Coded Allergies: penicillin G (Unverified Allergy, Severe, SWELLING, 07/10/17) has tolerated Cephalosporins in previous admissions *MDRO Multi-Drug Resistant Organism (Verified Adverse Reaction, Unknown, ) Hx MRSA Sputum 2006, Wounds 2004 MRSA PCR Screen negative 11/25/14 & 09/10/15. Cleared per Infection Control. Patient does not require isolation for hx of MRSA prior to 09/10/15. Family History Denies family history of coronary artery disease or diabetes mellitus Social History Smokes approximately 8 cigarettes per day. 40 pack year history of smoking. Patient states he quit alcohol in July of last year. Denies illicit drugs. Physical Exam Vital Signs Vital Signs Date Time Temp Pulse Resp B/P (MAP) Pulse Ox O2 Delivery O2 Flow Rate FiO2 07/10/17 17:04 18 95 Room Air 07/10/17 17:04 95 Room Air 07/10/17 15:02 98.3 85 20 167/79 (108) Room Air Physical Exam GENERAL: Disheveled, male appears older than stated age SKIN: No rashes, ecchymoses or lesions. Cool and dry. HEAD: Atraumatic. Normocephalic. No temporal or scalp tenderness. EYES: Pupils equal round and reactive. Extraocular motions intact. No scleral icterus. No injection or drainage. ENT: Nose without bleeding, purulent drainage or septal hematoma. Airway patent. Mouth with lesion on the roof of the mouth that extends back towards the throat. Lesion is raised with areas of hypopigmentation. No areas of ulceration. NECK: Trachea midline. No JVD or lymphadenopathy. Supple, nontender, no meningeal signs. CARDIOVASCULAR: Regular rate and rhythm without murmurs, gallops, or rubs. RESPIRATORY: Bilateral wheezes and rhonchi. GASTROINTESTINAL: Abdomen soft, non-tender, nondistended. No hepato-splenomegaly , or palpable masses. No guarding. MUSCULOSKELETAL: Extremities without clubbing, cyanosis, or edema. No joint tenderness, effusion, or edema noted. No calf tenderness. NEUROLOGICAL: Awake and alert. Cranial nerves II through XII intact. Motor and sensory grossly within normal limits. Normal speech. Laboratory Laboratory Tests Test 07/10/17 16:09 White Blood Count 16.1 Red Blood Count 5.53 Hemoglobin 15.4 Hematocrit 46.5 Mean Corpuscular Volume 84.1 Mean Corpuscular Hemoglobin 27.8 Mean Corpuscular Hemoglobin Concent 33.0 Red Cell Distribution Width 14.6 Platelet Count 281 Mean Platelet Volume 7.9 Neutrophils (%) (Auto) 72.0 Lymphocytes (%) (Auto) 18.1 Monocytes (%) (Auto) 7.4 Eosinophils (%) (Auto) 1.7 Basophils (%) (Auto) 0.8 Neutrophils # (Auto) 11.6 Lymphocytes # (Auto) 2.9 Monocytes # (Auto) 1.2 Eosinophils # (Auto) 0.3 Basophils # (Auto) 0.1 CBC Comment DIFF FINAL Differential Comment Prothrombin Time 10.4 Prothromb Time International Ratio 1.0 Activated Partial Thromboplast Time 25.3 Blood Urea Nitrogen 9 Creatinine 0.57 Random Glucose 177 Calcium Level 9.2 Magnesium Level 1.8 Sodium Level 133 Potassium Level 4.1 Chloride Level 95 Carbon Dioxide Level 33.5 Anion Gap 5 Estimat Glomerular Filtration Rate 146 Total Creatine Kinase 5145 Creatine Kinase MB 149.0 Creatine Kinase MB % 2.9 Troponin I 0.18 Result Diagram: 07/10/17 1609 07/10/17 1609 Caprini VTE Risk Assessment Caprini VTE Risk Assessment: Mod/High Risk (score >= 2) Caprini Risk Assessment Model Point Value = 1 Point Value = 2 Point Value = 3 Point Value = 5 Age 41-60 Minor surgery BMI > 25 kg/m2 Swollen legs Varicose veins or History of unexplained or recurrent spontaneous Oral contraceptives or hormone replacement Sepsis (< 1 month) Serious lung disease, including pneumonia (< 1 month) Abnormal pulmonary function Acute myocardial infarction Congestive heart failure (< 1 month) History of inflammatory bowel disease Medical patient at bed rest Age 61-74 Arthroscopic surgery Major open surgery (> 45 min) Laparoscopic surgery (> 45 min) Malignancy Confined to bed (> 72 hours) Immobilizing plaster cast Central venous access Age >= 75 History of VTE Family history of VTE Factor V Leiden Prothrombin [id number] Lupus anticoagulant Anticardiolipin antibodies Elevated serum homocysteine Heparin-induced thrombocytopenia Other congenital or acquired thrombophilia Stroke (< 1 month) Elective arthroplasty Hip, pelvis, or leg fracture Acute spinal cord injury (< 1 month) Prophylaxis Regimen Total Risk Factor Score Risk Level Prophylaxis Regimen 0-1 Low Early ambulation 2 Moderate Order ONE of the following: *Sequential Compression Device (SCD) *Heparin 5000 units SQ BID 3-4 Higher Order ONE of the following medications: *Heparin 5000 units SQ TID *Enoxaparin/Lovenox 40 mg SQ daily (WT < 150 kg, CrCl > 30 mL/min) *Enoxaparin/Lovenox 30 mg SQ daily (WT < 150 kg, CrCl > 10-29 mL/min) *Enoxaparin/Lovenox 30 mg SQ BID (WT < 150 kg, CrCl > 30 mL/min) AND/OR *Sequential Compression Device (SCD) 5 or more Highest Order ONE of the following medications: *Heparin 5000 units SQ TID (Preferred with Epidurals) *Enoxaparin/Lovenox 40 mg SQ daily (WT < 150 kg, CrCl > 30 mL/min) *Enoxaparin/Lovenox 30 mg SQ daily (WT < 150 kg, CrCl > 10-29 mL/min) *Enoxaparin/Lovenox 30 mg SQ BID (WT < 150 kg, CrCl > 30 mL/min) AND *Sequential Compression Device (SCD) Assessment and Plan Assessment and Plan Assessment/plan: 1. Rhabdomyolysis CK 5145 Patient denies any history of falls or prolonged periods of immobilization Aggressive IV fluid hydration Monitor renal function Trend CK 2. Pneumonia Chest x-ray significant for mild patchy opacity in the right lung base, images reviewed by me Patient with leukocytosis and cough Lactic acid pending Blood, sputum cultures pending Rocephin/azithromycin DuoNeb's Supplemental oxygen as needed 3. Mouth lesion Patient with significant history of smoking and large lesion on the roof of his mouth that extends back towards his throat Soft tissue neck CT pending for further characterization Concern for malignancy 4. Elevated troponin Troponin elevated at 0.18, patient with a history of elevated troponins ACS rule out pending as patient having active chest pain EKG significant for NSR with incomplete RBBB, no ST segment elevations/ depressions, images reviewed by me 5. Diabetes mellitus Holding home oral anti-hyperglycemics Sliding scale insulin Monitor blood glucose 6. Hypertension/hyperlipidemia Continue home medications 7. COPD DuoNeb's FEN Heart healthy diet Electrolytes: monitor and replete prn NS at 200 cc/hr Heparin Physician Certification 2 Midnight Certification Type: Admission for Inpatient Services Order for Inpatient Services The services are ordered in accordance with Medicare regulations or non- Medicare payer requirements, as applicable. In the case of services not specified as inpatient-only, they are appropriately provided as inpatient services in accordance with the 2-midnight benchmark. Estimated LOS (days): 2 2 days is the estimated time the patient will need to remain in the hospital, assuming treatment plan goals are met and no additional complications. Post-Hospital Plan: Not yet determined Britany Crocker MD Jul 10, 2017 19:10
[2017-07-10] MEDS ORDERED: RESP: ALBUTEROL 2.5 MG/IPRATROPIUM 0.5 MG NEB (PRN) NEB (19:15)
[2017-07-10] MEDS ORDERED: IOHEXOL 350 MG/ML 10 ML VIAL (for RAD DIAG) IVCONTRAST ONE (19:15)
--- NOTE | 2017-07-10 19:28 | RADRPT ---
EXAM DATE/TIME: 07/10/2017 19:08 [facility] COMPARISON: CT PULMONARY ANGIOGRAM, May 29, 2017, 17:16. INDICATIONS : Right sided mandibular pain. IV CONTRAST: 75 cc Omnipaque 350 (iohexol) IV RADIATION DOSE: 13.66 CTDIvol (mGy) MEDICAL HISTORY : Cardiovascular disease. Hypertension. Diabetes mellitus type 2. SURGICAL HISTORY : None. ENCOUNTER: Initial ACUITY: 1 day PAIN SCALE: 8/10 LOCATION: Right neck TECHNIQUE: Volumetric scanning of the neck was performed. Using automated exposure control and adjustment of th e mA and/or kV according to patient size, radiation dose was kept as low as reasonably achievable to obtain optimal diagnostic quality images. DICOM format image data is available electronically for r eview and comparison. FINDINGS: Ill-defined masslike area of the right tongue base noted, estimated at 2.4 x 3.5 cm in size. There ar e right jugulodigastric and submandibular lymph nodes that measure up to 1 cm in greatest transaxial dimension, for example series 2 image 52.. Major salivary glands have a normal CT appearance. No acute bony abnormality demonstrated. Atherosclerotic plaque seen of the bilateral carotid bifurcat ions without evidence of significant stenosis. Emphysema and scarring seen of the visualized lung api braxton. CONCLUSION: Ill-defined mass of the right tongue base and tissue diagnosis is recommended. Upper limits of normal to slightly enlarged right cervical and submandibular lymph nodes. Gumaro Bennett MD on July 10, 2017 at 19:22 Board Certified Radiologist. This report was verified electronically.
[2017-07-10] MEDS ORDERED: PRAVASTATIN SOD 40 MG TAB PO SCH (21:00)
[2017-07-10] MEDS: cefTRIAXone INJ 1,000 MG in SODIUM CHLORIDE 0.9% INJ 100 ML IV SCH (21:07)
[2017-07-10] MEDS: AZITHROMYCIN INJ 500 MG in SODIUM CHLOR 0.9% 250 ML INJ 250 ML IV SCH (21:07)
[2017-07-10] MEDS: SODIUM CHLORIDE 0.9% FLUSH 10 ML FLUSH IV FLUSH SCH (21:08)
[2017-07-10] MEDS: HEPARIN SODIUM - SQ 10,000 UNITS/ML VIAL SQ SCH (21:08)
[2017-07-10] MEDS: DOCUSATE SODIUM 50 MG/SENNA 8.6 MG TAB PO SCH (21:08)
[2017-07-10] MEDS: INSULIN ASPART SUPPLEMENTAL SCALE SQ SCH (21:09)
[2017-07-10] MEDS: MORPHINE SULFATE 2 MG/ML INJ IV PUSH PRN (21:18)
[2017-07-10 23:24] LABS: TROPONIN I 0.18 NG/ML (0.02-0.05)
[2017-07-11] VITALS (19 sets, daily range): BP systolic 106–134; BP diastolic 57–71; PULSE 71–90; RESP 18–20; TEMP 98–98.8; O2SAT 95–97
[2017-07-11] MEDS: HEPARIN SODIUM - SQ 10,000 UNITS/ML VIAL SQ SCH ×3 (03:55→20:49)
[2017-07-11] MEDS: MORPHINE SULFATE 2 MG/ML INJ IV PUSH PRN ×3 (03:56→19:31)
[2017-07-11] MEDS: SODIUM CHLOR 0.9% 1000 ML INJ 1,000 ML IV SCH ×4 (05:05→16:50)
[2017-07-11 06:06] LABS: AUTOMATED NEUTROPHIL # 9.1 TH/MM3 (1.8-7.7); BASOPHIL # 0.1 TH/MM3 (0-0.2); EOSINOPHIL # 0.4 TH/MM3 (0-0.4); EOSINOPHIL % 2.7 % (0.0-4.0); HEMOGLOBIN 14.1 GM/DL (13.0-17.0); LYMPHOCYTE # 2.9 TH/MM3 (1.0-4.8); MEAN CELL VOLUME 83.8 FL (80.0-100.0); MEAN CORPUSCULAR HEMOGLOBIN 28.1 PG (27.0-34.0); MEAN CORPUSCULAR HGB CONC 33.5 % (32.0-36.0); MEAN PLATELET VOLUME 7.8 FL (7.0-11.0); MONO % 8.9 % (0.0-8.0); MONOCYTE # 1.2 TH/MM3 (0-0.9); NEUT % 66.4 % (16.0-70.0); PLATELET COUNT 246 TH/MM3 (150-450); RED BLOOD COUNT 5.01 MIL/MM3 (4.50-5.90); RED CELL DISTRIBUTION WIDTH 14.5 % (11.6-17.2); WHITE BLOOD COUNT 13.8 TH/MM3 (4.0-11.0)
[2017-07-11 06:27] LABS: CALCIUM 8.6 MG/DL (8.5-10.1); CREATININE 0.4 MG/DL (0.60-1.30)
[2017-07-11 06:41] LABS: TROPONIN I 0.21 NG/ML (0.02-0.05)
[2017-07-11] MEDS: INSULIN ASPART SUPPLEMENTAL SCALE SQ SCH ×4 (08:00→22:35)
[2017-07-11] MEDS: LISINOPRIL 5 MG TAB PO SCH (09:00)
[2017-07-11] MEDS: DOCUSATE SODIUM 50 MG/SENNA 8.6 MG TAB PO SCH ×2 (09:00→21:00)
[2017-07-11] MEDS: PANTOPRAZOLE SOD 20 MG DELAYED RELEASE TAB PO SCH (09:14)
[2017-07-11] MEDS: ASPIRIN 81 MG CHEW TAB CHEW SCH (09:14)
[2017-07-11] MEDS: SODIUM CHLORIDE 0.9% FLUSH 10 ML FLUSH IV FLUSH SCH ×2 (09:14→21:00)
--- NOTE | 2017-07-11 12:23 | PD.CONS ---
HPI Consult [facility]ed By [facility] History of Present Illness 62-year-old male with a past medical history significant for hypertension, hyperlipidemia, type 2 diabetes mellitus and COPD presents with mouth pain. The patient reports that he has been suffering from severe mouth and throat pain since Tuesday. He describes the pain as a constant aching with intermittent stabbing. He also endorses chest pain in the setting of productive cough. CK, CKMB and Troponin elevated. Cardiology consulted for evaluation. Review of Systems Consitutional: DENIES: Fatigue, Fever, Chills, Weight gain, Weight loss Eyes: DENIES: Amaurosis Fugax, Change in vision HEENT: DENIES: Lightheadedness, Change in hearing Respiratory: DENIES: See HPI, Cough, Snoring, Shortness of breath, Wheezing, Sputum production Cardiovascular: DENIES: See HPI, Chest pain, Palpitations, Syncope, Tachycardia Gastrointestinal: DENIES: Nausea, Vomiting, Change in bowel habits, Reflux, Bloody stools, Melena Genitourinary: DENIES: Urinary incontinence, Difficulty voiding Integumentary: DENIES: Rash Neurologic: DENIES: Tingling or numbness, Memory problems, Poor Balance, Stroke symptoms Musculoskeletal: DENIES: Joint pain, Muscle pain, Limited range of motion, Back pain Psychiatric: DENIES: Anxiety, Depression, Sleep disturbances Hematologic: DENIES: Bruising tendencies, Bleeding tendencies Endocrine: DENIES: Weight gain, Weight loss, Thyroid disease Past Family Social History Allergies: Coded Allergies: penicillin G (Unverified Allergy, Severe, SWELLING, 07/10/17) has tolerated Cephalosporins in previous admissions *MDRO Multi-Drug Resistant Organism (Verified Adverse Reaction, Unknown, ) Hx MRSA Sputum 2006, Wounds 2003 MRSA PCR Screen negative 11/25/14 & 09/10/15. Cleared per Infection Control. Patient does not require isolation for hx of MRSA prior to 09/10/15. Past Medical History COPD Hyperlipidemia Type 2 diabetes mellitus Past Surgical History Laparotomy with lysis of adhesions in August 2016 Pilonidal cyst Reported Medications Reported Meds & Active Scripts Active Pravachol (Pravastatin) 40 Mg Tab 40 Mg PO HS Reported Aspirin 81 Mg Chew 81 Mg CHEW DAILY Lisinopril 5 Mg Tab 5 Mg PO DAILY Glipizide 10 Mg Tab 10 Mg PO DAILY Take 30 minutes before a meal Omeprazole Unknown Strength Tab 10 Mg PO DAILY Active Ordered Medications Current Medications Medications (Trade) Dose Ordered Sig/Alfred Route Start Time Stop Time Status Last Admin Sodium Chloride 1,000 ml @ 200 mls/hr Q5H IV 07/10/17 18:21 07/11/17 11:19 (NS Flush) 2 ml BID IV FLUSH 07/10/17 21:00 07/11/17 09:14 (NS Flush) 2 ml UNSCH PRN IV FLUSH 07/10/17 18:30 (Heparin Inj) 5,000 units Q8H SQ 07/10/17 20:00 07/11/17 11:37 (Tylenol) 650 mg Q4H PRN PO 07/10/17 18:30 07/11/17 11:38 (Zofran Inj) 4 mg Q6H PRN IVP 07/10/17 18:30 (Bing-Colace) 1 tab BID PO 07/10/17 21:00 07/11/17 09:00 (Milk Of Magnesia Liq) 30 ml Q12H PRN PO 07/10/17 18:30 (Senokot) 17.2 mg Q12H PRN PO 07/10/17 18:30 (Dulcolax Supp) 10 mg DAILY PRN RECTAL 07/10/17 18:30 (Lactulose Liq) 30 ml DAILY PRN PO 07/10/17 18:30 (Aspirin Chew) 81 mg DAILY CHEW 07/11/17 09:00 07/11/17 09:14 (Prinivil) 5 mg DAILY PO 07/11/17 09:00 07/11/17 09:00 (Pravachol) 40 mg HS PO 07/10/17 21:00 07/10/17 21:08 (Protonix) 10 mg DAILY PO 07/11/17 09:00 07/11/17 09:14 (D50w (Vial) Inj) 50 ml UNSCH PRN IV PUSH 07/10/17 18:45 (Glucagon Inj) 1 mg UNSCH PRN OTHER 07/10/17 18:45 (NovoLOG SUPPLEMENTAL SCALE) 1 ACHS SLIDING SCALE SQ 07/10/17 21:00 07/11/17 08:00 Azithromycin 500 mg/Sodium Chloride 250 ml @ 250 mls/hr Q24H IV 1/14/18 20:00 07/10/17 21:07 Ceftriaxone Sodium 1000 mg/ Sodium Chloride 100 ml @ 200 mls/hr Q24H IV 07/10/17 20:00 07/10/17 21:07 (Duoneb Neb) 1 ampule Q4HR NEB PRN NEB 07/10/17 19:15 (Morphine Inj) 2 mg Q3H PRN IV PUSH 07/11/17 09:30 07/11/17 09:19 Family History Denies family history of coronary artery disease or diabetes mellitus Social History Smokes approximately 8 cigarettes per day. 40 pack year history of smoking. Patient states he quit alcohol in July of last year. Denies illicit drugs. Physical Exam Vital Signs Vital Signs Date Time Temp Pulse Resp B/P (MAP) Pulse Ox O2 Delivery O2 Flow Rate FiO2 07/11/17 07:00 98.2 83 20 134/67 (89) 07/11/17 07:00 78 07/11/17 07:00 Nasal Cannula 2.00 07/11/17 06:00 73 07/11/17 04:59 86 07/11/17 04:00 Nasal Cannula 2.00 07/11/17 04:00 98.0 88 18 106/57 (73) 95 07/11/17 04:00 88 07/11/17 03:00 84 07/11/17 02:00 89 07/11/17 01:00 83 07/11/17 00:00 81 07/10/17 23:52 Nasal Cannula 2.00 07/10/17 23:52 98.0 81 18 117/60 (79) 93 07/10/17 23:00 80 07/10/17 22:00 89 07/10/17 21:30 94/52 (66) 96 07/10/17 21:00 87 07/10/17 20:00 88 07/10/17 20:00 98.3 88 20 161/89 (113) 93 07/10/17 17:04 18 95 Room Air 07/10/17 17:04 95 Room Air 07/10/17 15:02 98.3 85 20 167/79 (108) Room Air Physical Exam GENERAL: Well-nourished, well-developed patient. SKIN: Warm and dry. HEAD: Normocephalic. EYES: No scleral icterus. No injection or drainage. NECK: Supple, trachea midline. No JVD or lymphadenopathy. CARDIOVASCULAR: Regular rate and rhythm without murmurs, gallops, or rubs. RESPIRATORY: Breath sounds equal bilaterally. No accessory muscle use. GASTROINTESTINAL: Abdomen soft, non-tender, nondistended. EXTREMITIES: No cyanosis, or edema. NEUROLOGICAL: Awake, alert, and oriented x 3. Non-focal. Laboratory Laboratory Tests Test 07/10/17 16:09 07/10/17 19:35 07/10/17 22:40 07/11/17 05:45 White Blood Count 16.1 13.8 Red Blood Count 5.53 5.01 Hemoglobin 15.4 14.1 Hematocrit 46.5 42.0 Mean Corpuscular Volume 84.1 83.8 Mean Corpuscular Hemoglobin 27.8 28.1 Mean Corpuscular Hemoglobin Concent 33.0 33.5 Red Cell Distribution Width 14.6 14.5 Platelet Count 281 246 Mean Platelet Volume 7.9 7.8 Neutrophils (%) (Auto) 72.0 66.4 Lymphocytes (%) (Auto) 18.1 21.0 Monocytes (%) (Auto) 7.4 8.9 Eosinophils (%) (Auto) 1.7 2.7 Basophils (%) (Auto) 0.8 1.0 Neutrophils # (Auto) 11.6 9.1 Lymphocytes # (Auto) 2.9 2.9 Monocytes # (Auto) 1.2 1.2 Eosinophils # (Auto) 0.3 0.4 Basophils # (Auto) 0.1 0.1 CBC Comment DIFF FINAL DIFF FINAL Differential Comment Prothrombin Time 10.4 Prothromb Time International Ratio 1.0 Activated Partial Thromboplast Time 25.3 Blood Urea Nitrogen 9 9 Creatinine 0.57 0.40 Random Glucose 177 126 Calcium Level 9.2 8.6 Magnesium Level 1.8 Sodium Level 133 136 Potassium Level 4.1 3.7 Chloride Level 95 98 Carbon Dioxide Level 33.5 30.0 Anion Gap 5 8 Estimat Glomerular Filtration Rate 146 219 Total Creatine Kinase 5145 4713 5519 Creatine Kinase MB 149.0 121.4 130.6 Creatine Kinase MB % 2.9 2.6 2.4 Troponin I 0.18 0.18 0.21 Lactic Acid Level 0.9 Date/Time Source Procedure Growth Status 07/10/17 19:30 Blood Peripheral Aerobic Blood Culture - Preliminary NO GROWTH IN 1 DAY Resulted 07/10/17 19:30 Blood Peripheral Anaerobic Blood Culture - Preliminary NO GROWTH IN 1 DAY Resulted 07/11/17 01:23 Sputum Expectorated Sputum Gram Stain Pending Received 07/11/17 01:23 Sputum Expectorated Sputum Sputum Culture Pending Received Result Diagram: 07/11/17 0545 07/11/17 0545 Imaging Last Impressions Chest X-Ray 07/10/17 1600 Signed Impressions: Service Date/Time: Monday, July 10, 2017 16:20 - CONCLUSION: 1. Mild patchy opacity now noted right lung base which could represent early pneumonia. 2. Chronic scarring and underlying emphysema. Bret Peterson MD Neck CT 07/10/17 0000 Signed Impressions: Service Date/Time: Monday, July 10, 2017 19:08 - CONCLUSION: Ill-defined mass of the right tongue base and tissue diagnosis is recommended. Upper limits of normal to slightly enlarged right cervical and submandibular lymph nodes. Gumaro Bennett MD Assessment and Plan Problem List: (1) Chest pain ICD Codes: R07.9 - Chest pain, unspecified Plan: Non Cardiac chest pain Mainly complaints a severe right sided mouth pain in the setting of a Mass No ACS. Rhabdomyolysis Recommendations: 1. IV Hydration 2. Discontinue statin 3. Trend CPK, CKMB 4. Check TSH, Free T3 and T4 Thank you for the opportunity to participate in the care of this patient (2) Mass of throat ICD Codes: R22.1 - Localized swelling, mass and lump, neck Status: Acute (3) COPD (chronic obstructive pulmonary disease) ICD Codes: J44.9 - COPD (chronic obstructive pulmonary disease) Status: Acute (4) Diabetes ICD Codes: E11.9 - Diabetes Status: Acute Israel Johnston MD Jul 11, 2017 12:23
--- NOTE | 2017-07-11 14:54 | EKG ---
Date Performed: 07/10/2017 Time Performed: 22:10:44 PTAGE: 62 years EKG: Sinus rhythm with PVC(s) Incomplete RBBB Since previous tracing, no significant change noted Borderline ECG PREVIOUS TRACING : 07/10/2017 16.06 DOCTOR: Manjeet Szymanski Interpretating Date/Time 07/11/2017 14:54:03
--- NOTE | 2017-07-11 14:54 | EKG ---
Date Performed: 07/10/2017 Time Performed: 16:06:07 PTAGE: 62 years EKG: Sinus rhythm INCOMPLETE RIGHT BUNDLE BRANCH BLOCK Since previous tracing, no significant change noted BORDERLINE ECG PREVIOUS TRACING : 05/30/2017 05.41 DOCTOR: Manjeet Szymanski Interpretating Date/Time 07/11/2017 14:54:15
--- NOTE | 2017-07-11 14:54 | EKG ---
Date Performed: 07/11/2017 Time Performed: 03:30:40 PTAGE: 62 years EKG: Sinus rhythm Since previous tracing, no significant change noted Normal ECG PREVIOUS TRACING : 07/10/2017 22.10 DOCTOR: Manjeet Szymanski Interpretating Date/Time 07/11/2017 14:53:36
--- NOTE | 2017-07-11 15:09 | HHI.PR ---
Subjective Remarks This is a pleasant 62 y/o male with Hypertension, hyperlipidemia, DM II, COPD, who present with Chest pain and mouth pain, Chest x-ray showed mild patchy opacity in the right lung base. seen by nanofabrication specialist Doctor Israel Johnston, recommended to discontinue Statin, he has Right tonsil and right tongue base induration, may need ENT evaluation. Objective Vital Signs Date Time Temp Pulse Resp B/P (MAP) Pulse Ox O2 Delivery O2 Flow Rate FiO2 07/11/17 10:30 121/63 (82) 07/11/17 07:00 98.2 83 20 134/67 (89) 07/11/17 07:00 78 07/11/17 07:00 Nasal Cannula 2.00 07/11/17 06:00 73 07/11/17 04:59 86 07/11/17 04:00 Nasal Cannula 2.00 07/11/17 04:00 98.0 88 18 106/57 (73) 95 07/11/17 04:00 88 07/11/17 03:00 84 07/11/17 02:00 89 07/11/17 01:00 83 07/11/17 00:00 81 07/10/17 23:52 Nasal Cannula 2.00 07/10/17 23:52 98.0 81 18 117/60 (79) 93 07/10/17 23:00 80 07/10/17 22:00 89 07/10/17 21:30 94/52 (66) 96 07/10/17 21:00 87 07/10/17 20:00 88 07/10/17 20:00 98.3 88 20 161/89 (113) 93 07/10/17 17:04 18 95 Room Air 07/10/17 17:04 95 Room Air I/O 07/10/17 07/10/17 07/10/17 07/11/17 07/11/17 07/11/17 07:00 15:00 23:00 07:00 15:00 23:00 Intake Total 1830 ml Output Total 700 ml Balance 1130 ml Intake Oral 480 ml IV Total 1350 ml Output Urine Total 700 ml # Bowel Movements 0 Result Diagram: 07/11/17 0545 07/11/17 0545 Imaging Last Impressions Chest X-Ray 07/10/17 1600 Signed Impressions: Service Date/Time: Monday, July 10, 2017 16:20 - CONCLUSION: 1. Mild patchy opacity now noted right lung base which could represent early pneumonia. 2. Chronic scarring and underlying emphysema. Bret Peterson MD Neck CT 07/10/17 0000 Signed Impressions: Service Date/Time: Monday, July 10, 2017 19:08 - CONCLUSION: Ill-defined mass of the right tongue base and tissue diagnosis is recommended. Upper limits of normal to slightly enlarged right cervical and submandibular lymph nodes. Gumaro Bennett MD Procedures None Other Results Laboratory Tests Test 07/10/17 16:09 07/10/17 19:35 07/11/17 05:45 Prothrombin Time 10.4 SEC Prothromb Time International Ratio 1.0 RATIO Activated Partial Thromboplast Time 25.3 SEC Blood Urea Nitrogen 9 MG/DL 9 MG/DL Creatinine 0.57 MG/DL 0.40 MG/DL Random Glucose 177 MG/DL 126 MG/DL Calcium Level 9.2 MG/DL 8.6 MG/DL Magnesium Level 1.8 MG/DL Sodium Level 133 MEQ/L 136 MEQ/L Potassium Level 4.1 MEQ/L 3.7 MEQ/L Chloride Level 95 MEQ/L 98 MEQ/L Carbon Dioxide Level 33.5 MEQ/L 30.0 MEQ/L Lactic Acid Level 0.9 mmol/L White Blood Count 13.8 TH/MM3 Red Blood Count 5.01 MIL/MM3 Hemoglobin 14.1 GM/DL Hematocrit 42.0 % Mean Corpuscular Volume 83.8 FL Mean Corpuscular Hemoglobin 28.1 PG Mean Corpuscular Hemoglobin Concent 33.5 % Red Cell Distribution Width 14.5 % Platelet Count 246 TH/MM3 Mean Platelet Volume 7.8 FL Neutrophils (%) (Auto) 66.4 % Lymphocytes (%) (Auto) 21.0 % Monocytes (%) (Auto) 8.9 % Eosinophils (%) (Auto) 2.7 % Basophils (%) (Auto) 1.0 % Neutrophils # (Auto) 9.1 TH/MM3 Lymphocytes # (Auto) 2.9 TH/MM3 Monocytes # (Auto) 1.2 TH/MM3 Eosinophils # (Auto) 0.4 TH/MM3 Basophils # (Auto) 0.1 TH/MM3 CBC Comment DIFF FINAL Differential Comment Anion Gap 8 MEQ/L Estimat Glomerular Filtration Rate 219 ML/MIN Total Creatine Kinase 5519 U/L Creatine Kinase MB 130.6 NG/ML Creatine Kinase MB % 2.4 % Troponin I 0.21 NG/ML Objective Remarks GENERAL: No acute distress. SKIN: No rashes, ecchymoses or lesions. Cool and dry. HEAD: Atraumatic. Normocephalic. No temporal or scalp tenderness. EYES: Pupils equal round and reactive. Extraocular motions intact. No scleral icterus. No injection or drainage. ENT: Nose without bleeding, purulent drainage or septal hematoma. Airway patent. Mouth with lesion on the roof of the mouth that extends back towards the throat. Lesion is raised with areas of hypopigmentation. No areas of ulceration. NECK: Trachea midline. No JVD or lymphadenopathy. Supple, nontender, no meningeal signs. CARDIOVASCULAR: Regular rate and rhythm without murmurs, gallops, or rubs. RESPIRATORY: Bilateral wheezes and rhonchi. GASTROINTESTINAL: Abdomen soft, non-tender, nondistended. No hepato-splenomegaly , or palpable masses. No guarding. MUSCULOSKELETAL: Extremities without clubbing, cyanosis, or edema. No joint tenderness, effusion, or edema noted. No calf tenderness. NEUROLOGICAL: Awake and alert. Cranial nerves II through XII intact. Motor and sensory grossly within normal limits. Normal speech. Medications and IVs Current Medications Medications (Trade) Dose Ordered Sig/Alfred Route Start Time Stop Time Status Last Admin Sodium Chloride 1,000 ml @ 200 mls/hr Q5H IV 07/10/17 18:21 07/11/17 11:19 (NS Flush) 2 ml BID IV FLUSH 07/10/17 21:00 07/11/17 09:14 (NS Flush) 2 ml UNSCH PRN IV FLUSH 07/10/17 18:30 (Heparin Inj) 5,000 units Q8H SQ 07/10/17 20:00 07/11/17 11:37 (Tylenol) 650 mg Q4H PRN PO 07/10/17 18:30 07/11/17 11:38 (Zofran Inj) 4 mg Q6H PRN IVP 07/10/17 18:30 (Bing-Colace) 1 tab BID PO 07/10/17 21:00 07/11/17 09:00 (Milk Of Magnesia Liq) 30 ml Q12H PRN PO 07/10/17 18:30 (Senokot) 17.2 mg Q12H PRN PO 07/10/17 18:30 (Dulcolax Supp) 10 mg DAILY PRN RECTAL 07/10/17 18:30 (Lactulose Liq) 30 ml DAILY PRN PO 07/10/17 18:30 (Aspirin Chew) 81 mg DAILY CHEW 07/11/17 09:00 07/11/17 09:14 (Prinivil) 5 mg DAILY PO 07/11/17 09:00 07/11/17 09:00 (Protonix) 10 mg DAILY PO 07/11/17 09:00 07/11/17 09:14 (D50w (Vial) Inj) 50 ml UNSCH PRN IV PUSH 07/10/17 18:45 (Glucagon Inj) 1 mg UNSCH PRN OTHER 07/10/17 18:45 (NovoLOG SUPPLEMENTAL SCALE) 1 ACHS SLIDING SCALE SQ 07/10/17 21:00 07/11/17 12:00 Azithromycin 500 mg/Sodium Chloride 250 ml @ 250 mls/hr Q24H IV 07/10/17 20:00 07/10/17 21:07 Ceftriaxone Sodium 1000 mg/ Sodium Chloride 100 ml @ 200 mls/hr Q24H IV 07/10/17 20:00 07/10/17 21:07 (Duoneb Neb) 1 ampule Q4HR NEB PRN NEB 07/10/17 19:15 (Morphine Inj) 2 mg Q3H PRN IV PUSH 07/11/17 09:30 07/11/17 09:19 A/P Assessment and Plan 1. Rhabdomyolysis continue with worsening CK levels today 5519 from 5145 yesterday, continue IV fluids continue monitoring and was removed Statin by nanofabrication specialist, no clear reason for increased Creatinine creatinine level elevation. 2. Pneumonia Chest X ray significant for mild patchy opacity in the lung base, lactic acid 0.9, following blood cultures and sputum cultures, continue Ceftriaxone and Azithromycin. 3. COPD non exacerbated continue bronchodilator, Mucolytic or incentive spirometry. 4. Right tonsil and right tongue base with probable malignancy, asked for ENT evaluation. 5. Atypical chest pain nanofabrication specialist following EKG significant for NSR with incomplete RBBB, no ST segment elevations/depressions 6 DM II to continue ADA diet and sliding scale. 7. Hyperlipidemia on hold Statin 8. Hypertension controlled. Heparin Discharge Planning Not yet cleared for discharge. Mark Mckenzie MD Jul 11, 2017 15:09
--- NOTE | 2017-07-11 17:31 | RADRPT ---
EXAM DATE/TIME: 07/11/2017 17:15 [place] COMPARISON: CT SOFT TISSUE NECK W CONTRAST, July 10, 2017, 19:08. INDICATIONS : Abnormal prior CT. Evaluate for mass. RADIATION DOSE: 7.58 CTDIvol (mGy) MEDICAL HISTORY : Chronic obstructive pulmonary disease. Cardiovascular disease diabetes SURGICAL HISTORY : None. ENCOUNTER: Initial ACUITY: 1 day PAIN SCALE: 0/10 LOCATION: Bilateral chest TECHNIQUE: Volumetric scanning of the chest was performed. Using automated exposure control and adjustment of t he mA and/or kV according to patient size, radiation dose was kept as low as reasonably achievable to obtain optimal diagnostic quality images. DICOM format image data is available electronically for r eview and comparison. Follow-up recommendations for detected pulmonary nodules are based at a minimum on nodule size and pa tient risk factors according to Fleischner Society Guidelines. FINDINGS: Imaging through the pulmonary parenchyma demonstrates advanced COPD changes. There is apical pleural thickening and scarring in the right lung apex. There are atelectatic changes and scarring at the rig ht lung base. The heart is normal in size. There is advanced atherosclerotic plaquing in the coronary arteries. The re are scattered mediastinal and AP window lymph nodes. The largest of these measures 1.5 cm. These a re mildly enlarged by CT size criteria. Followup exam to ensure these are stable may be warranted. The limited portions of upper abdomen visualized demonstrate multiple calcified gallstones within the gallbladder. The upper abdomen is otherwise unremarkable. There are degenerative changes throughout the spine. CONCLUSION: 1. Advanced COPD changes. 2. Apical pleural thickening and scarring in the right lung apex. 3. Atelectatic changes and scarring at the right lung base. 4. Scattered, mildly enlarged lymph nodes in the AP window and mediastinum. Kishor Woodward MD on July 11, 2017 at 17:23 Board Certified Radiologist. This report was verified electronically.
[2017-07-11] MEDS: cefTRIAXone INJ 1,000 MG in SODIUM CHLORIDE 0.9% INJ 100 ML IV SCH (21:05)
[2017-07-11] MEDS: AZITHROMYCIN INJ 500 MG in SODIUM CHLOR 0.9% 250 ML INJ 250 ML IV SCH (21:06)
[2017-07-12] VITALS (18 sets, daily range): BP systolic 111–141; BP diastolic 59–71; PULSE 72–82; RESP 16–20; TEMP 97.9–99.3; O2SAT 92–97
[2017-07-12] MEDS: MORPHINE SULFATE 2 MG/ML INJ IV PUSH PRN ×8 (00:37→23:27)
[2017-07-12] MEDS: SODIUM CHLOR 0.9% 1000 ML INJ 1,000 ML IV SCH ×4 (01:26→22:49)
[2017-07-12] MEDS: HEPARIN SODIUM - SQ 10,000 UNITS/ML VIAL SQ SCH ×3 (05:16→20:00)
[2017-07-12 06:56] LABS: AST (GOT) 99 U/L (15-37); BICARBONATE 27.5 MEQ/L (21.0-32.0); BLOOD UREA NITROGEN 6 MG/DL (7-18); CALCIUM 8.7 MG/DL (8.5-10.1); CHLORIDE 98 MEQ/L (98-107); CREATININE 0.26 MG/DL (0.60-1.30); GLOMERULAR FILTRATION RATE 361 ML/MIN (>89); GLUCOSE,RANDOM 114 MG/DL (74-106); SODIUM (NA) 135 MEQ/L (136-145)
[2017-07-12 06:57] LABS: ALT (GPT) 28 U/L (12-78)
--- NOTE | 2017-07-12 07:09 | PD.CONS ---
History of Present Illness Service ENT Consult Requested By Reason for Consult Base of tongue mass. Primary Care Physician [facility] Diagnoses: History of Present Illness 62 year old smoker admitted with complaints of chest pain, right neck pain. Pneumonia, elevated WBC. CT neck shows adenopathy and right base of tongue lesion. Some decrease in pain on antibiotics and fluids. Review of Systems Ears, nose, mouth, throat: COMPLAINS OF: Oral lesions, Throat pain, Odynophagia , DENIES: Nasal discharge Past Family Social History Allergies: Coded Allergies: penicillin G (Unverified Allergy, Severe, SWELLING, 07/10/17) has tolerated Cephalosporins in previous admissions *MDRO Multi-Drug Resistant Organism (Verified Adverse Reaction, Unknown, ) Hx MRSA Sputum 2006, Wounds 2003 MRSA PCR Screen negative 11/25/14 & 09/10/15. Cleared per Infection Control. Patient does not require isolation for hx of MRSA prior to 09/10/15. Physical Exam Vital Signs Vital Signs Date Time Temp Pulse Resp B/P (MAP) Pulse Ox O2 Delivery O2 Flow Rate FiO2 07/12/17 06:00 75 07/12/17 05:00 78 07/12/17 04:00 98.0 81 18 141/71 (94) 97 07/12/17 04:00 76 07/12/17 03:16 78 07/12/17 02:00 82 07/12/17 01:00 76 07/12/17 00:00 98.0 76 18 111/60 (77) 97 07/11/17 23:00 71 07/11/17 22:00 74 07/11/17 21:00 72 07/11/17 20:00 71 07/11/17 20:00 Nasal Cannula 2.00 07/11/17 19:45 Nasal Cannula 2.00 07/11/17 19:30 98.1 76 18 117/59 (78) 97 07/11/17 19:00 76 07/11/17 18:00 77 07/11/17 17:00 90 07/11/17 16:00 76 07/11/17 15:00 98.8 73 18 125/71 (89) 96 07/11/17 15:00 76 07/11/17 10:30 121/63 (82) Physical Exam GENERAL: This is a well-nourished, well-developed patient, in no apparent distress. SKIN: No rashes, ecchymoses or lesions. Cool and dry. HEAD: Atraumatic. Normocephalic. No temporal or scalp tenderness. EYES: Pupils equal round and reactive. Extraocular motions intact. No scleral icterus. No injection or drainage. ENT: Nose without bleeding, purulent drainage or septal hematoma. Throat without erythema. Right tonsillar hypertrophy. Uvula midline. Airway patent. Slight fullness right tongue base. No firm mass. NECK: Trachea midline. Right lymphadenopathy. Supple, nontender, no meningeal signs. Laboratory Laboratory Tests Test 07/12/17 05:20 Blood Urea Nitrogen 6 Creatinine 0.26 Random Glucose 114 Albumin 3.0 Calcium Level 8.7 Aspartate Amino Transf (AST/SGOT) 99 Alanine Aminotransferase (ALT/SGPT) 28 Sodium Level 135 Potassium Level 3.5 Chloride Level 98 Carbon Dioxide Level 27.5 Anion Gap 10 Estimat Glomerular Filtration Rate 361 Date/Time Source Procedure Growth Status 07/10/17 19:30 Blood Peripheral Aerobic Blood Culture - Preliminary NO GROWTH IN 1 DAY Resulted 07/10/17 19:30 Blood Peripheral Anaerobic Blood Culture - Preliminary NO GROWTH IN 1 DAY Resulted 07/11/17 01:23 Sputum Expectorated Sputum Gram Stain Pending Received 07/11/17 01:23 Sputum Expectorated Sputum Sputum Culture Pending Received Result Diagram: 07/11/17 0545 07/12/[address] report reviewed. Assessment and Plan Assessment and Plan 62 year old male. Possible right base of tongue tumor. Needs exam under anesthesia. Plan microlaryngoscopy and biopsy in OR tomorrow under general anesthesia. Risks and benefits reviewed with the patient who understands and accepts. Alphonso Huang MD Jul 12, 2017 07:09
[2017-07-12 07:10] LABS: ALKALINE PHOSPHATASE 175 U/L (45-117); TOTAL BILIRUBIN ADULT 0.5 MG/DL (0.2-1.0); TOTAL PROTEIN 6.6 GM/DL (6.4-8.2)
[2017-07-12] MEDS: INSULIN ASPART SUPPLEMENTAL SCALE SQ SCH ×4 (08:00→21:00)
[2017-07-12] MEDS: ASPIRIN 81 MG CHEW TAB CHEW SCH (08:45)
[2017-07-12] MEDS: PANTOPRAZOLE SOD 20 MG DELAYED RELEASE TAB PO SCH (08:45)
[2017-07-12] MEDS: SODIUM CHLORIDE 0.9% FLUSH 10 ML FLUSH IV FLUSH SCH ×2 (08:46→20:23)
[2017-07-12] MEDS: LISINOPRIL 5 MG TAB PO SCH (08:46)
[2017-07-12] MEDS: DOCUSATE SODIUM 50 MG/SENNA 8.6 MG TAB PO SCH ×2 (08:46→20:23)
--- NOTE | 2017-07-12 15:59 | EKG ---
Date Performed: 07/11/2017 Time Performed: 09:47:28 PTAGE: 62 years EKG: Sinus rhythm . Incomplete RBBB Since previous tracing, no significant change noted Borderline ECG PREVIOUS TRACING : 07/11/2017 03.30 DOCTOR: Manasa Herrmann Interpretating Date/Time 07/12/2017 15:57:13
--- NOTE | 2017-07-12 17:23 | HHI.PR ---
Subjective Remarks This is a pleasant 62 y/o male with Hypertension, hyperlipidemia, DM II, COPD, who present with Chest pain and mouth pain, Chest x-ray showed mild patchy opacity in the right lung base. seen by photogrammetric compilation specialist Doctor Israel Johnston, recommended to discontinue Statin, he has Right tonsil and right tongue base induration, may need ENT evaluation. 07/12: Stable in his bedroom, seen by ENT specialist scheduled for biopsy tomorrow. no nausea, vomit or diarrhea, no chest pain. Objective Vital Signs Date Time Temp Pulse Resp B/P (MAP) Pulse Ox O2 Delivery O2 Flow Rate FiO2 07/12/17 12:32 99.1 77 18 140/70 (93) 92 07/12/17 10:32 91 Room Air 07/12/17 08:37 98.9 78 20 138/68 (91) 92 07/12/17 08:00 79 07/12/17 06:00 75 07/12/17 05:00 78 07/12/17 04:00 98.0 81 18 141/71 (94) 97 07/12/17 04:00 76 07/12/17 03:16 78 07/12/17 02:00 82 07/12/17 01:00 76 07/12/17 00:00 98.0 76 18 111/60 (77) 97 07/11/17 23:00 71 07/11/17 22:00 74 07/11/17 21:00 72 07/11/17 20:00 71 07/11/17 20:00 Nasal Cannula 2.00 07/11/17 19:45 Nasal Cannula 2.00 07/11/17 19:30 98.1 76 18 117/59 (78) 97 07/11/17 19:00 76 07/11/17 18:00 77 I/O 07/11/17 07/11/17 07/11/17 07/12/17 07/12/17 07/12/17 06:59 14:59 22:59 06:59 14:59 22:59 Intake Total 1830 ml 1575 ml 420 ml Output Total 700 ml 1600 ml 3375 ml Balance 1130 ml -25 ml -2955 ml Intake Oral 480 ml 720 ml 420 ml IV Total 1350 ml 855 ml Output Urine Total 700 ml 1600 ml 3375 ml # Voids 9 # Bowel Movements 0 0 Result Diagram: 07/11/17 0545 07/12/17 0520 Imaging Last Impressions Chest CT 07/11/17 0000 Signed Impressions: Service Date/Time: Tuesday, July 11, 2017 17:15 - CONCLUSION: 1. Advanced COPD changes. 2. Apical pleural thickening and scarring in the right lung apex. 3. Atelectatic changes and scarring at the right lung base. 4. Scattered, mildly enlarged lymph nodes in the AP window and mediastinum. Kishor Woodward MD Chest X-Ray 07/10/17 1600 Signed Impressions: Service Date/Time: Monday, July 10, 2017 16:20 - CONCLUSION: 1. Mild patchy opacity now noted right lung base which could represent early pneumonia. 2. Chronic scarring and underlying emphysema. Bret Peterson MD Neck CT 07/10/17 0000 Signed Impressions: Service Date/Time: Monday, July 10, 2017 19:08 - CONCLUSION: Ill-defined mass of the right tongue base and tissue diagnosis is recommended. Upper limits of normal to slightly enlarged right cervical and submandibular lymph nodes. Gumaro Bennett MD Procedures None Other Results Laboratory Tests Test 07/10/17 16:09 07/10/17 19:35 07/11/17 05:45 07/12/17 05:20 Prothrombin Time 10.4 SEC Prothromb Time International Ratio 1.0 RATIO Activated Partial Thromboplast Time 25.3 SEC Blood Urea Nitrogen 9 MG/DL 6 MG/DL Creatinine 0.57 MG/DL 0.26 MG/DL Random Glucose 177 MG/DL 114 MG/DL Calcium Level 9.2 MG/DL 8.7 MG/DL Magnesium Level 1.8 MG/DL Sodium Level 133 MEQ/L 135 MEQ/L Potassium Level 4.1 MEQ/L 3.5 MEQ/L Chloride Level 95 MEQ/L 98 MEQ/L Carbon Dioxide Level 33.5 MEQ/L 27.5 MEQ/L Lactic Acid Level 0.9 mmol/L White Blood Count 13.8 TH/MM3 Red Blood Count 5.01 MIL/MM3 Hemoglobin 14.1 GM/DL Hematocrit 42.0 % Mean Corpuscular Volume 83.8 FL Mean Corpuscular Hemoglobin 28.1 PG Mean Corpuscular Hemoglobin Concent 33.5 % Red Cell Distribution Width 14.5 % Platelet Count 246 TH/MM3 Mean Platelet Volume 7.8 FL Neutrophils (%) (Auto) 66.4 % Lymphocytes (%) (Auto) 21.0 % Monocytes (%) (Auto) 8.9 % Eosinophils (%) (Auto) 2.7 % Basophils (%) (Auto) 1.0 % Neutrophils # (Auto) 9.1 TH/MM3 Lymphocytes # (Auto) 2.9 TH/MM3 Monocytes # (Auto) 1.2 TH/MM3 Eosinophils # (Auto) 0.4 TH/MM3 Basophils # (Auto) 0.1 TH/MM3 CBC Comment DIFF FINAL Differential Comment Troponin I 0.21 NG/ML Total Protein 6.6 GM/DL Albumin 3.0 GM/DL Alkaline Phosphatase 175 U/L Aspartate Amino Transf (AST/SGOT) 99 U/L Alanine Aminotransferase (ALT/SGPT) 28 U/L Total Bilirubin 0.5 MG/DL Anion Gap 10 MEQ/L Estimat Glomerular Filtration Rate 361 ML/MIN Total Creatine Kinase 3233 U/L Creatine Kinase MB 84.1 NG/ML Creatine Kinase MB % 2.6 % Objective Remarks GENERAL: No acute distress. SKIN: No rashes, ecchymoses or lesions. Cool and dry. HEAD: Atraumatic. Normocephalic. No temporal or scalp tenderness. EYES: Pupils equal round and reactive. ENT: Mouth with lesion on the roof of the mouth that extends back towards the throat. Lesion is raised with areas of hypopigmentation. NECK: Trachea midline. No JVD or lymphadenopathy. Supple, nontender, no meningeal signs. CARDIOVASCULAR: Regular rate and rhythm without murmurs, gallops, or rubs. RESPIRATORY: Bilateral wheezes and rhonchi. GASTROINTESTINAL: Abdomen soft, non-tender, nondistended. MUSCULOSKELETAL: Extremities without clubbing, cyanosis, or edema. NEUROLOGICAL: Awake and alert. Cranial nerves II through XII intact. Medications and IVs Current Medications Medications (Trade) Dose Ordered Sig/Alfred Route Start Time Stop Time Status Last Admin Sodium Chloride 1,000 ml @ 200 mls/hr Q5H IV 07/10/17 18:21 07/12/17 14:05 (NS Flush) 2 ml BID IV FLUSH 07/10/17 21:00 07/11/17 21:00 (NS Flush) 2 ml UNSCH PRN IV FLUSH 07/10/17 18:30 (Heparin Inj) 5,000 units Q8H SQ 07/10/17 20:00 07/12/17 12:29 (Tylenol) 650 mg Q4H PRN PO 07/10/17 18:30 07/11/17 11:38 (Zofran Inj) 4 mg Q6H PRN IVP 07/10/17 18:30 (Bing-Colace) 1 tab BID PO 07/10/17 21:00 07/11/17 09:00 (Milk Of Magnesia Liq) 30 ml Q12H PRN PO 07/10/17 18:30 (Senokot) 17.2 mg Q12H PRN PO 07/10/17 18:30 (Dulcolax Supp) 10 mg DAILY PRN RECTAL 07/10/17 18:30 (Lactulose Liq) 30 ml DAILY PRN PO 07/10/17 18:30 (Aspirin Chew) 81 mg DAILY CHEW 07/11/17 09:00 07/12/17 08:45 (Prinivil) 5 mg DAILY PO 07/11/17 09:00 07/12/17 08:46 (Protonix) 10 mg DAILY PO 07/11/17 09:00 07/12/17 08:45 (D50w (Vial) Inj) 50 ml UNSCH PRN IV PUSH 07/10/17 18:45 (Glucagon Inj) 1 mg UNSCH PRN OTHER 07/10/17 18:45 (NovoLOG SUPPLEMENTAL SCALE) 1 ACHS SLIDING SCALE SQ 07/10/17 21:00 07/12/17 12:29 Azithromycin 500 mg/Sodium Chloride 250 ml @ 250 mls/hr Q24H IV 07/10/17 20:00 07/11/17 21:06 Ceftriaxone Sodium 1000 mg/ Sodium Chloride 100 ml @ 200 mls/hr Q24H IV 07/10/17 20:00 07/11/17 21:05 (Duoneb Neb) 1 ampule Q4HR NEB PRN NEB 07/10/17 19:15 (Morphine Inj) 2 mg Q3H PRN IV PUSH 07/11/17 09:30 07/12/17 14:05 A/P Assessment and Plan 1. Rhabdomyolysis Improving today CK 3233 2. Pneumonia Chest X ray significant for mild patchy opacity in the lung base, lactic acid 0.9, following blood cultures and sputum cultures, continue Ceftriaxone and Azithromycin. blood culture negative in 2 days. 3. COPD non exacerbated continue bronchodilator, Mucolytic or incentive spirometry. 4. Right tonsil and right tongue base with probable malignancy, asked for ENT evaluation. Right cervical node and mediastinal nodes. 5. Atypical chest pain photogrammetric compilation specialist non cardiac chest pain. 6 DM II to continue ADA diet and sliding scale. 7. Hyperlipidemia on hold Statin 8. Hypertension controlled. 9. chronic liver enzymes elevation probable secondary to alcohol intake. at expense of AST and alkaline phosphatase due to chronic pancreatitis and Cholelithiasis. Heparin Discharge Planning Not yet cleared for discharge. Mark Mckenzie MD Jul 12, 2017 17:23
[2017-07-12] MEDS: cefTRIAXone INJ 1,000 MG in SODIUM CHLORIDE 0.9% INJ 100 ML IV SCH (20:18)
[2017-07-12] MEDS: AZITHROMYCIN INJ 500 MG in SODIUM CHLOR 0.9% 250 ML INJ 250 ML IV SCH (22:49)
[2017-07-13] VITALS (16 sets, daily range): BP systolic 110–140; BP diastolic 54–72; PULSE 67–89; RESP 16–20; TEMP 97.2–98.7; O2SAT 73–95
[2017-07-13] MEDS: MORPHINE SULFATE 2 MG/ML INJ IV PUSH PRN ×7 (02:47→22:26)
[2017-07-13] MEDS: HEPARIN SODIUM - SQ 10,000 UNITS/ML VIAL SQ SCH ×3 (04:00→20:21)
[2017-07-13] MEDS: SODIUM CHLOR 0.9% 1000 ML INJ 1,000 ML IV SCH ×5 (04:44→22:28)
[2017-07-13] MEDS ORDERED: SODIUM CHLORID 0.9% 500 ML IV PRN (04:45)
[2017-07-13] MEDS ORDERED: CHLORHEXIDINE GLUCONATE 2 % 1 PACK (2 CLOTHS) TOPICAL PRN (04:45)
[2017-07-13] MEDS ORDERED: POVIDONE IODINE 5% (ANTISEPSIS KIT) 4 APPLICATIONS EACH NARE PRN (04:45)
[2017-07-13] MEDS ORDERED: LACTATED RINGER'S 1000 ML IV PRN (04:45)
[2017-07-13] MEDS: INSULIN ASPART SUPPLEMENTAL SCALE SQ SCH ×4 (08:00→20:20)
[2017-07-13] MEDS: LISINOPRIL 5 MG TAB PO SCH (08:34)
[2017-07-13] MEDS: PANTOPRAZOLE SOD 20 MG DELAYED RELEASE TAB PO SCH (08:34)
[2017-07-13] MEDS: ASPIRIN 81 MG CHEW TAB CHEW SCH (08:35)
--- NOTE | 2017-07-13 08:37 | HHI.PR ---
Subjective Remarks This is a pleasant 62 y/o male with Hypertension, hyperlipidemia, DM II, COPD, who present with Chest pain and mouth pain, Chest x-ray showed mild patchy opacity in the right lung base. seen by medical billing specialist Doctor Israel Johnston, recommended to discontinue Statin, he has Right tonsil and right tongue base induration, may need ENT evaluation. scheduled for Biopsy for 07/13/1707/13: Seen in his bedroom in the presence of Nurse Miss Varner, now in status post Microlaryngoscopy and biopsy of right tonsil, by doctor Alphonso Huang. positive for Squamous Cell Carcinoma. consulted Oncology and Radiation Oncology by ENT Objective Vital Signs Date Time Temp Pulse Resp B/P (MAP) Pulse Ox O2 Delivery O2 Flow Rate FiO2 07/13/17 04:51 90 3.00 07/13/17 04:47 98.6 78 16 128/72 (90) 90 07/13/17 04:02 72 07/13/17 03:04 76 07/13/17 02:00 82 07/13/17 01:00 75 07/13/17 00:20 74 07/12/17 23:25 97.9 72 16 138/66 (90) 93 07/12/17 23:02 75 07/12/17 22:07 79 07/12/17 21:00 75 07/12/17 20:34 98.8 79 18 120/59 (79) 07/12/17 20:18 93 Room Air 2.00 07/12/17 20:11 78 07/12/17 17:40 94 Nasal Cannula 2.00 07/12/17 17:16 99.3 79 20 135/63 (87) 94 07/12/17 12:32 99.1 77 18 140/70 (93) 92 07/12/17 10:32 91 Room Air 07/12/17 08:37 98.9 78 20 138/68 (91) 92 I/O 07/12/17 07/12/17 07/12/17 07/13/17 07/13/17 07/13/17 07:00 15:00 23:00 07:00 15:00 23:00 Intake Total 420 ml 3500 ml Output Total 3375 ml 1825 ml 1475 ml Balance -2955 ml 1675 ml -1475 ml Intake Oral 420 ml 900 ml IV Total 2600 ml Output Urine Total 3375 ml 1825 ml 1475 ml # Voids 9 # Bowel Movements 0 Result Diagram: 07/11/17 0545 07/12/17 0520 Imaging Last Impressions Chest CT 07/11/17 0000 Signed Impressions: Service Date/Time: Tuesday, July 11, 2017 17:15 - CONCLUSION: 1. Advanced COPD changes. 2. Apical pleural thickening and scarring in the right lung apex. 3. Atelectatic changes and scarring at the right lung base. 4. Scattered, mildly enlarged lymph nodes in the AP window and mediastinum. Kishor Woodward MD Chest X-Ray 07/10/17 1600 Signed Impressions: Service Date/Time: Monday, July 10, 2017 16:20 - CONCLUSION: 1. Mild patchy opacity now noted right lung base which could represent early pneumonia. 2. Chronic scarring and underlying emphysema. Bret Peterson MD Neck CT 07/10/17 0000 Signed Impressions: Service Date/Time: Monday, July 10, 2017 19:08 - CONCLUSION: Ill-defined mass of the right tongue base and tissue diagnosis is recommended. Upper limits of normal to slightly enlarged right cervical and submandibular lymph nodes. Gumaro Bennett MD Procedures None Other Results Laboratory Tests Test 07/10/17 16:09 07/10/17 19:35 07/11/17 05:45 07/12/17 05:20 Prothrombin Time 10.4 SEC Prothromb Time International Ratio 1.0 RATIO Activated Partial Thromboplast Time 25.3 SEC Blood Urea Nitrogen 9 MG/DL 6 MG/DL Creatinine 0.57 MG/DL 0.26 MG/DL Random Glucose 177 MG/DL 114 MG/DL Calcium Level 9.2 MG/DL 8.7 MG/DL Magnesium Level 1.8 MG/DL Sodium Level 133 MEQ/L 135 MEQ/L Potassium Level 4.1 MEQ/L 3.5 MEQ/L Chloride Level 95 MEQ/L 98 MEQ/L Carbon Dioxide Level 33.5 MEQ/L 27.5 MEQ/L Lactic Acid Level 0.9 mmol/L White Blood Count 13.8 TH/MM3 Red Blood Count 5.01 MIL/MM3 Hemoglobin 14.1 GM/DL Hematocrit 42.0 % Mean Corpuscular Volume 83.8 FL Mean Corpuscular Hemoglobin 28.1 PG Mean Corpuscular Hemoglobin Concent 33.5 % Red Cell Distribution Width 14.5 % Platelet Count 246 TH/MM3 Mean Platelet Volume 7.8 FL Neutrophils (%) (Auto) 66.4 % Lymphocytes (%) (Auto) 21.0 % Monocytes (%) (Auto) 8.9 % Eosinophils (%) (Auto) 2.7 % Basophils (%) (Auto) 1.0 % Neutrophils # (Auto) 9.1 TH/MM3 Lymphocytes # (Auto) 2.9 TH/MM3 Monocytes # (Auto) 1.2 TH/MM3 Eosinophils # (Auto) 0.4 TH/MM3 Basophils # (Auto) 0.1 TH/MM3 CBC Comment DIFF FINAL Differential Comment Troponin I 0.21 NG/ML Total Protein 6.6 GM/DL Albumin 3.0 GM/DL Alkaline Phosphatase 175 U/L Aspartate Amino Transf (AST/SGOT) 99 U/L Alanine Aminotransferase (ALT/SGPT) 28 U/L Total Bilirubin 0.5 MG/DL Anion Gap 10 MEQ/L Estimat Glomerular Filtration Rate 361 ML/MIN Total Creatine Kinase 3233 U/L Creatine Kinase MB 84.1 NG/ML Creatine Kinase MB % 2.6 % Objective Remarks GENERAL: No acute distress. SKIN: No rashes, ecchymoses or lesions. Cool and dry. HEAD: Atraumatic. Normocephalic. No temporal or scalp tenderness. EYES: Pupils equal round and reactive. ENT: Mouth with lesion on the roof of the mouth that extends back towards the throat. Lesion is raised with areas of hypopigmentation. NECK: Trachea midline. No JVD or lymphadenopathy. Supple, nontender, no meningeal signs. CARDIOVASCULAR: Regular rate and rhythm without murmurs, gallops, or rubs. RESPIRATORY: Bilateral wheezes and rhonchi. GASTROINTESTINAL: Abdomen soft, non-tender, nondistended. MUSCULOSKELETAL: Extremities without clubbing, cyanosis, or edema. NEUROLOGICAL: Awake and alert. Cranial nerves II through XII intact. Medications and IVs Current Medications Medications (Trade) Dose Ordered Sig/Alfred Route Start Time Stop Time Status Last Admin Sodium Chloride 1,000 ml @ 200 mls/hr Q5H IV 07/10/17 18:21 07/13/17 06:21 (NS Flush) 2 ml BID IV FLUSH 07/10/17 21:00 07/11/17 21:00 (NS Flush) 2 ml UNSCH PRN IV FLUSH 07/10/17 18:30 (Heparin Inj) 5,000 units Q8H SQ 07/10/17 20:00 07/12/17 12:29 (Tylenol) 650 mg Q4H PRN PO 07/10/17 18:30 07/11/17 11:38 (Zofran Inj) 4 mg Q6H PRN IVP 07/10/17 18:30 (Bing-Colace) 1 tab BID PO 07/10/17 21:00 07/11/17 09:00 (Milk Of Magnesia Liq) 30 ml Q12H PRN PO 07/10/17 18:30 (Senokot) 17.2 mg Q12H PRN PO 07/10/17 18:30 (Dulcolax Supp) 10 mg DAILY PRN RECTAL 07/10/17 18:30 (Lactulose Liq) 30 ml DAILY PRN PO 07/10/17 18:30 (Aspirin Chew) 81 mg DAILY CHEW 07/11/17 09:00 07/12/17 08:45 (Prinivil) 5 mg DAILY PO 07/11/17 09:00 07/12/17 08:46 (Protonix) 10 mg DAILY PO 07/11/17 09:00 07/12/17 08:45 (D50w (Vial) Inj) 50 ml UNSCH PRN IV PUSH 07/10/17 18:45 (Glucagon Inj) 1 mg UNSCH PRN OTHER 07/10/17 18:45 (NovoLOG SUPPLEMENTAL SCALE) 1 ACHS SLIDING SCALE SQ 07/10/17 21:00 07/12/17 17:37 Azithromycin 500 mg/Sodium Chloride 250 ml @ 250 mls/hr Q24H IV 07/10/17 20:00 07/12/17 22:49 Ceftriaxone Sodium 1000 mg/ Sodium Chloride 100 ml @ 200 mls/hr Q24H IV 07/10/17 20:00 07/12/17 20:18 (Duoneb Neb) 1 ampule Q4HR NEB PRN NEB 07/10/17 19:15 (Morphine Inj) 2 mg Q3H PRN IV PUSH 07/11/17 09:30 07/13/17 05:36 Lactated Ringer's 1,000 ml @ 30 mls/hr Q24H PRN IV 07/13/17 04:45 07/16/17 04:44 Sodium Chloride 500 ml @ 30 mls/hr [id number] PRN IV 07/13/17 04:45 07/16/17 04:44 (Betadine 5% Antisepsis Kit) 1 applic PREPARATION OPERATOR PRN EACH NARE 07/13/17 04:45 07/16/17 04:44 (Chlorhexidine 2% Cloth) 3 pack PREPARATION OPERATOR PRN TOPICAL 07/13/17 04:45 07/16/17 04:44 A/P Assessment and Plan 1. Rhabdomyolysis Improving today CK 3233 following CK levels not yet in EMR 2. Pneumonia Chest X ray significant for mild patchy opacity in the lung base, lactic acid 0.9, following blood cultures and sputum cultures, continue Ceftriaxone and Azithromycin. blood culture negative in 2 days. 3. COPD non exacerbated continue bronchodilator, Mucolytic or incentive spirometry. 4. Right tonsil and right tongue base with probable malignancy, asked for ENT evaluation. Right cervical node and mediastinal nodes. status post biopsy squamous cell carcinoma, Oncology and Radiation oncology consulted. 5. Atypical chest pain medical billing specialist non cardiac chest pain. 6 DM II to continue ADA diet and sliding scale. 7. Hyperlipidemia on hold Statin 8. Hypertension controlled. 9. chronic liver enzymes elevation probable secondary to alcohol intake. at expense of AST and alkaline phosphatase due to chronic pancreatitis and Cholelithiasis. SCDs for DVT prophylaxis. Heparin on hold re start tomorrow patient with known Cancer high risk for thrombosis. Transfer to Oncology Floor. Discharge Planning Not yet cleared for discharge. Mark Mckenzie MD Jul 13, 2017 08:37
[2017-07-13] MEDS: SODIUM CHLORIDE 0.9% FLUSH 10 ML FLUSH IV FLUSH SCH ×2 (08:38→20:28)
[2017-07-13] MEDS: DOCUSATE SODIUM 50 MG/SENNA 8.6 MG TAB PO SCH ×2 (08:38→20:19)
[2017-07-13] MEDS ORDERED: DO NOT ADM ANY ANTICOAGULANT DRUGS PRN (11:14)
[2017-07-13] MEDS ORDERED: *RESP: ALBUTEROL 2.5 MG/3 ML NEB (PRN) PERIprocedural Use ONLY NEB ONE (11:25)
--- NOTE | 2017-07-13 11:47 | MP ---
cc: SOUTH GORMAN M.D. DATE OF SURGERY 07/13/2017 INDICATIONS This is a 62-year-old male smoker who presents with a history of right neck pain day. Kishor was admitted with cough, shortness of breath and right neck pain. He has received IV antibiotics and is being treated for pneumonia. A CT of his neck showed a lesion which appeared to arise from the right base of tongue. Clinically he showed some right tonsillar swelling. There is concern malignancy. He is brought to the operating room for microlaryngoscopy and biopsy. PREOPERATIVE DIAGNOSIS Hoarseness, right tongue and right tonsil lesion. POSTOPERATIVE DIAGNOSIS Hoarseness, right tongue and right tonsil lesion. PROCEDURE Microlaryngoscopy, and biopsy right tonsil. SUMMARY The patient was brought to the operating room and placed in the supine position, successfully placed under general anesthesia and prepared in the usual fashion for this procedure. The oral cavity was exposed and palpated. The lesion was identified. It arose from the right tonsil more to the inferior portion and went down to the area of the retromolar trigone and then onto the base of tongue laterally on this side consistent with the CT findings. It is a firm mass, bleeding at the surface only mildly. He was suctioned and examined with the laryngoscope and then several great biopsies were taken at the tonsil area consistent with squamous cell carcinoma. He was suctioned, bleeding settled and hemostasis was obtained. The patient was extubated, awakened and taken to Recovery in stable condition. MD FERNANDO Mace/ORTIZ /11:06 AM /11:22 AM
[2017-07-13] MEDS ORDERED: SUCCINYLCHOLINE CHLORIDE 100 MG/5 ML SYRINGE IV PUSH ONE (12:00)
[2017-07-13] MEDS ORDERED: LIDOCAINE HCL 1% PF 5 ML SYRINGE OTHER ONE (12:00)
[2017-07-13] MEDS ORDERED: PHENYLEPH/NS 1000 MCG/10 ML SYR IV ONE (12:00)
[2017-07-13] MEDS ORDERED: DEXAMETHASONE SOD PHOS 4 MG/ML VIAL IV ONE (12:00)
[2017-07-13] MEDS ORDERED: ONDANSETRON HCL 4 MG/2 ML VIAL IV ONE (12:00)
[2017-07-13] MEDS ORDERED: PROPOFOL 200 MG/20 ML AMP IV ONE (12:00)
[2017-07-13 15:58] LABS: BICARBONATE 32.2 MEQ/L (21.0-32.0); CALCIUM 8.2 MG/DL (8.5-10.1); CREATININE 0.5 MG/DL (0.60-1.30)
[2017-07-13] MEDS: cefTRIAXone INJ 1,000 MG in SODIUM CHLORIDE 0.9% INJ 100 ML IV SCH (20:24)
[2017-07-13] MEDS: AZITHROMYCIN INJ 500 MG in SODIUM CHLOR 0.9% 250 ML INJ 250 ML IV SCH (20:27)
[2017-07-14] VITALS (7 sets, daily range): BP systolic 106–136; BP diastolic 56–75; PULSE 70–84; RESP 16–18; TEMP 97.8–98.8; O2SAT 94–97
[2017-07-14] MEDS: SODIUM CHLOR 0.9% 1000 ML INJ 1,000 ML IV SCH ×4 (02:21→18:47)
[2017-07-14] MEDS: HEPARIN SODIUM - SQ 10,000 UNITS/ML VIAL SQ SCH ×3 (02:49→19:30)
--- NOTE | 2017-07-14 06:55 | MB ---
cc: SOUTH HUANG M.D., RUBY ANNE E. M.D. DATE OF 1955 DATE OF SERVICE July 13, [address] Huang REASON FOR CONSULTATION Mr. Huang requested consultation for Mr. Garrison regarding right tonsillar head and neck cancer. HISTORY OF PRESENT ILLNESS Mr. Garrison is a 62-year-old man with multiple medical problems. He presented to the emergency room with chest pain and wheezing and sore throat. He has multiple medical problems including hypertension, diabetes, hyperlipidemia, COPD. He complains of aching, intermittently stabbing pain which is a nuisance in his throat. He denies any difficulty swallowing. He was worked up by Cardiology and felt to have non-cardiac related chest pain. Because of his throat pain, a CT scan of the neck was performed on July 10, 2017, that showed an ill-defined mass in the right tongue base and slightly enlarged right cervical and submandibular lymph node. A CT scan of the chest shows COPD changes, atelectasis, scattered mildly enlarged lymph node in the AP window, mediastinum. There is no clear evidence of metastatic disease. ENT was consulted. Dr. Huang took the patient to surgery on July 13, 2017. He performed microlaryngoscopy and biopsy of the right tonsil. The arose from the right tonsil to the inferior portion and went down to the area of the retromolar trigone, then into the base of tongue laterally, consistent with the CT scan findings. Post biopsy, Hematology/Oncology is consulted. Mr. Garrison is a chronic smoker. He has no intentions to quit at present. He denies any nausea or vomiting, pain or weakness. He has throat pain, a nonproductive cough. He denies any fevers, chills or night sweats. The rest of his review of systems is negative. PAST MEDICAL HISTORY 1. COPD. 2. Hyperlipidemia. 3. Diabetes type 2. 4. Hypertension. 5. Right tonsillar mass. 6. Liver function elevation. PAST SURGICAL HISTORY 1. Examination under anesthesia. 2. Laparotomy. 3. Lysis of adhesions. 4. Pilonidal cyst surgery. FAMILY HISTORY Father is alive in his 90s. Mother of unknown cause 50 years ago. He was only 13. SOCIAL HISTORY He lives in an apartment with friends. He denies any significant other, girlfriend or . He smokes eight cigarettes per day and has no plans on quitting. He quit drinking in July of last year. Denies any illicit drug use. He has over 40 pack-year smoking history. ALLERGIES PENICILLIN G CURRENT MEDICATIONS 1. Lactated Ringer's. 2. Morphine. 3. Aspirin. 4. Lisinopril. 5. Protonix. 6. NovoLog p.r.n. 7. Tylenol p.r.n. PHYSICAL EXAMINATION VITAL SIGNS: Temperature 98.7, heart rate 82, respiratory rate 20, blood pressure 111/55, saturation 93%. GENERAL: Mr. Garrison is a well-developed slender man who looks older than stated age. His pupils are round, reactive to light and accommodation. Oropharynx is moist. Mild erythema on the right. Tongue is coated with whitish plaque. NECK: Supple with right submandibular adenopathy. No anterior cervical adenopathy. No supraclavicular adenopathy. LUNGS: Clear. CARDIOVASCULAR: Exam reveals a normal rate and rhythm. ABDOMEN: Benign. LOWER EXTREMITIES: With no edema. LABORATORY DATA Significant for mild leukocytosis, hemoglobin/hematocrit, platelet count are normal. BUN of 9, creatinine 0.5, creatinine kinase is trending down 2948, AST elevated at 99, ALT 28, alkaline phosphatase 175. Hepatitis panel evaluation on 10/05/2016 was negative. HIV was negative. ASSESSMENT AND PLAN Mr. Garrison is a 62-year-old man with multiple medical problems, presents with the chest pain and throat pain. A lengthy discussion with Mr. Garrison of his locally advanced disease and finding on clinical examination by Dr. Huang. He refused to believe it is cancer. He discussed that the biopsy is not back yet. We discussed his option to follow up with the [facility]. [place] oncologist is likely in [place]. I defer to Mr. Garrison where he would like to followup. He became irritated in discussing the importance of a healthcare surrogate. He reports that he has [place] but he does not want them involved. He has no family nearby. He does not want to consider at this point the issue of having a healthcare surrogate which he would like to defer. He has no healthcare surrogate or advanced directives. We discussed in general terms treatment for locally advanced non-metastatic head and neck cancer. P16 positivity will be checked. In general concurrent chemotherapy and radiation is coordinated with the radiation oncologist. Radiation oncologists have already been consulted at. Pending the results of the biopsy, he will need treatment on continued outpatient basis. For this reason he is encouraged to determine his benefits through his [facility]. His questions were answered to his satisfaction. Stephanie Garrison MD RAD/SSB /8:04 PM /6:36 AM
--- NOTE | 2017-07-14 07:08 | HHI.PR ---
Subjective Remarks No change in symptoms. Tolerated biopsy well. Path pending. [facility] Medical Oncology. Objective Vital Signs Date Time Temp Pulse Resp B/P (MAP) Pulse Ox O2 Delivery O2 Flow Rate FiO2 07/14/17 03:00 97.9 70 16 122/60 (80) 94 07/14/17 00:00 98.0 84 18 106/56 (73) 95 07/13/17 20:00 98.3 79 16 110/54 (72) 92 07/13/17 20:00 Nasal Cannula 3.00 07/13/17 20:00 75 07/13/17 17:44 93 Nasal Cannula 2.00 07/13/17 17:00 80 07/13/17 16:00 82 07/13/17 15:36 98.7 82 20 111/55 (73) 93 07/13/17 15:31 97.2 89 16 128/62 (84) 95 07/13/17 15:00 82 07/13/17 14:00 84 07/13/17 11:45 98.1 84 16 132/62 (85) 92 Room Air 2 07/13/17 11:30 85 16 157/84 (108) 97 Room Air 2 07/13/17 11:14 98.0 84 16 119/76 (90) 93 Nasal Cannula 3 07/13/17 11:00 67 07/13/17 08:00 97.6 73 16 140/67 (91) 73 I/O 07/13/17 07/13/17 07/13/17 07/14/17 07/14/17 07/14/17 07:00 15:00 23:00 07:00 15:00 23:00 Intake Total 950 ml 1900 ml Output Total 1475 ml 2425 ml 825 ml Balance -1475 ml -1475 ml 1075 ml IV Total 950 ml 1900 ml Output Urine Total 1475 ml 2425 ml 825 ml Result Diagram: 07/11/17 0545 07/13/17 1528 Procedures None Assessment and Plan Assessment and Plan 62 year old male. Clinically right tonsillar tumor to right base of tongue. I reviewed surgical findings and impression with path still pending. Defer to Medical and Radiation Oncology. Not a good surgical candidate with advanced lesion. Alphonso Huang MD Jul 14, 2017 07:07
[2017-07-14] MEDS: DOCUSATE SODIUM 50 MG/SENNA 8.6 MG TAB PO SCH ×2 (08:49→19:31)
[2017-07-14] MEDS: LISINOPRIL 5 MG TAB PO SCH (08:49)
[2017-07-14] MEDS: ASPIRIN 81 MG CHEW TAB CHEW SCH (08:49)
[2017-07-14] MEDS: PANTOPRAZOLE SOD 20 MG DELAYED RELEASE TAB PO SCH (08:49)
[2017-07-14] MEDS: SODIUM CHLORIDE 0.9% FLUSH 10 ML FLUSH IV FLUSH SCH ×2 (08:49→19:35)
[2017-07-14] MEDS: INSULIN ASPART SUPPLEMENTAL SCALE SQ SCH ×4 (08:50→19:29)
[2017-07-14] MEDS: MORPHINE SULFATE 2 MG/ML INJ IV PUSH PRN (09:00)
--- NOTE | 2017-07-14 12:43 | HHI.PR ---
Subjective Remarks Follow-up right tonsil lesion 07/14/17-patient seen and examined, denies any significant shortness of breath or chest pain. No acute event overnight. Objective Vitals Vital Signs Date Time Temp Pulse Resp B/P (MAP) Pulse Ox O2 Delivery O2 Flow Rate FiO2 07/14/17 11:21 Nasal Cannula 3.00 07/14/17 08:00 98.3 73 18 136/69 (91) 95 07/14/17 03:00 97.9 70 16 122/60 (80) 94 07/14/17 00:00 98.0 84 18 106/56 (73) 95 07/13/17 20:00 98.3 79 16 110/54 (72) 92 07/13/17 20:00 Nasal Cannula 3.00 07/13/17 20:00 75 07/13/17 17:44 93 Nasal Cannula 2.00 07/13/17 17:00 80 07/13/17 16:00 82 07/13/17 15:36 98.7 82 20 111/55 (73) 93 07/13/17 15:31 97.2 89 16 128/62 (84) 95 07/13/17 15:00 82 07/13/17 14:00 84 I/O 07/13/17 07/13/17 07/13/17 07/14/17 07/14/17 07/14/17 07:00 15:00 23:00 07:00 15:00 23:00 Intake Total 950 ml 1900 ml 100 ml Output Total 1475 ml 2425 ml 825 ml Balance -1475 ml -1475 ml 1075 ml 100 ml IV Total 950 ml 1900 ml 100 ml Output Urine Total 1475 ml 2425 ml 825 ml Result Diagram: 07/11/17 0545 07/13/17 1528 Imaging Last Impressions Chest CT 07/11/17 0000 Signed Impressions: Service Date/Time: Tuesday, July 11, 2017 17:15 - CONCLUSION: 1. Advanced COPD changes. 2. Apical pleural thickening and scarring in the right lung apex. 3. Atelectatic changes and scarring at the right lung base. 4. Scattered, mildly enlarged lymph nodes in the AP window and mediastinum. Kishor Woodward MD Chest X-Ray 07/10/17 1600 Signed Impressions: Service Date/Time: Monday, July 10, 2017 16:20 - CONCLUSION: 1. Mild patchy opacity now noted right lung base which could represent early pneumonia. 2. Chronic scarring and underlying emphysema. Bret Peterson MD Neck CT 07/10/17 0000 Signed Impressions: Service Date/Time: Monday, July 10, 2017 19:08 - CONCLUSION: Ill-defined mass of the right tongue base and tissue diagnosis is recommended. Upper limits of normal to slightly enlarged right cervical and submandibular lymph nodes. Gumaro Bennett MD Objective Remarks GENERAL: NAD SKIN: Warm and dry. HEAD: Normocephalic. EYES: No scleral icterus. No injection or drainage. NECK: Supple, trachea midline. No JVD or lymphadenopathy. CARDIOVASCULAR: Regular rate and rhythm without murmurs, gallops, or rubs. RESPIRATORY: Breath sounds equal bilaterally. No accessory muscle use. GASTROINTESTINAL: Abdomen soft, non-tender, nondistended. MUSCULOSKELETAL: No cyanosis, or edema. BACK: Nontender without obvious deformity. No CVA tenderness. A/P Assessment and Plan 62-year-old man with 1. Rhabdomyolysis Incentive aggressive IV fluid resuscitation and monitor CK 2. Pneumonia continue Ceftriaxone and Azithromycin. blood culture negative in 2 days. 3. COPD non exacerbated continue bronchodilator, Mucolytic or incentive spirometry. 4. Right tonsil and right tongue base with probable malignancy s/p Microlaryngoscopy, and biopsy right tonsil. Biopsy pending. Appreciate input from ENT as well as oncology 5. 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 6 DM II Labile blood glucose Dr. Welch 70/30 10 units twice a day and check hemoglobin A1c Continue insulin sliding scale. 7. Hyperlipidemia on hold Statin 8. Hypertension controlled. 9. chronic liver enzymes elevation probable secondary to alcohol intake. at expense of AST and alkaline phosphatase due to chronic pancreatitis and Cholelithiasis. SCDs for DVT prophylaxis. Zechariah Kern MD Jul 14, 2017 12:43
[2017-07-14] MEDS: INSULIN ASPAR PROT 70/30 1,000 UNITS/10 ML VIAL SQ SCH (17:29)
[2017-07-14] MEDS: AZITHROMYCIN INJ 500 MG in SODIUM CHLOR 0.9% 250 ML INJ 250 ML IV SCH (19:30)
[2017-07-14] MEDS: cefTRIAXone INJ 1,000 MG in SODIUM CHLORIDE 0.9% INJ 100 ML IV SCH (19:30)
[2017-07-15 00:45] VITALS: BP 141/70; PULSE 71; RESP 16; TEMP 98; O2SAT 93
[2017-07-15] MEDS: SODIUM CHLOR 0.9% 1000 ML INJ 1,000 ML IV SCH ×3 (00:45→10:05)
[2017-07-15] MEDS: MORPHINE SULFATE 2 MG/ML INJ IV PUSH PRN ×4 (00:47→15:02)
[2017-07-15 04:00] VITALS: BP 152/72; PULSE 74; RESP 16; TEMP 97.9; O2SAT 94
[2017-07-15] MEDS: HEPARIN SODIUM - SQ 10,000 UNITS/ML VIAL SQ SCH ×2 (04:00→12:54)
[2017-07-15 06:54] LABS: AUTOMATED NEUTROPHIL # 8.1 TH/MM3 (1.8-7.7); BASOPHIL # 0.1 TH/MM3 (0-0.2); BASOPHIL % 0.9 % (0.0-2.0); EOSINOPHIL # 0.4 TH/MM3 (0-0.4); HEMATOCRIT 37.7 % (39.0-51.0); HEMOGLOBIN 12.9 GM/DL (13.0-17.0); LYMPH % 20.6 % (9.0-44.0); LYMPHOCYTE # 2.5 TH/MM3 (1.0-4.8); MEAN CELL VOLUME 84.5 FL (80.0-100.0); MEAN CORPUSCULAR HEMOGLOBIN 28.9 PG (27.0-34.0); MEAN CORPUSCULAR HGB CONC 34.1 % (32.0-36.0); MEAN PLATELET VOLUME 8.4 FL (7.0-11.0); MONO % 9.4 % (0.0-8.0); MONOCYTE # 1.1 TH/MM3 (0-0.9); NEUT % 66.1 % (16.0-70.0); PLATELET COUNT 237 TH/MM3 (150-450); RED BLOOD COUNT 4.46 MIL/MM3 (4.50-5.90); RED CELL DISTRIBUTION WIDTH 14.3 % (11.6-17.2); WHITE BLOOD COUNT 12.2 TH/MM3 (4.0-11.0)
[2017-07-15 07:28] LABS: ALBUMIN 2.8 GM/DL (3.4-5.0); ALKALINE PHOSPHATASE 120 U/L (45-117); ALT (GPT) 30 U/L (12-78); AST (GOT) 48 U/L (15-37); BICARBONATE 32.4 MEQ/L (21.0-32.0); BLOOD UREA NITROGEN 7 MG/DL (7-18); CALCIUM 8.2 MG/DL (8.5-10.1); CHLORIDE 99 MEQ/L (98-107); CREATININE 0.31 MG/DL (0.60-1.30); GLOMERULAR FILTRATION RATE 294 ML/MIN (>89); GLUCOSE,RANDOM 130 MG/DL (74-106); SODIUM (NA) 139 MEQ/L (136-145); TOTAL BILIRUBIN ADULT 0.3 MG/DL (0.2-1.0); TOTAL PROTEIN 6.1 GM/DL (6.4-8.2)
--- NOTE | 2017-07-15 07:36 | HHI.PR ---
Subjective Remarks Pathology confirms squamous cell carcinoma. Objective Vital Signs Date Time Temp Pulse Resp B/P (MAP) Pulse Ox O2 Delivery O2 Flow Rate FiO2 07/15/17 04:00 97.9 74 16 152/72 (98) 94 07/15/17 00:45 98.0 71 16 141/70 (93) 93 07/14/17 21:10 Nasal Cannula 3.00 07/14/17 21:10 72 07/14/17 20:15 97.8 73 16 121/60 (80) 94 07/14/17 19:49 3.00 07/14/17 17:00 98.8 70 18 130/72 (91) 96 07/14/17 12:00 98.6 78 18 134/75 (94) 97 07/14/17 11:21 Nasal Cannula 3.00 07/14/17 08:00 98.3 73 18 136/69 (91) 95 I/O 07/14/17 07/14/17 07/14/17 07/15/17 07/15/17 07/15/17 07:00 15:00 23:00 07:00 15:00 23:00 Intake Total 1900 ml 1100 ml 1310 ml 2720 ml Output Total 825 ml 2400 ml 4350 ml Balance 1075 ml 1100 ml -1090 ml -1630 ml Intake Oral 960 ml 720 ml IV Total 1900 ml 1100 ml 350 ml 2000 ml Output Urine Total 825 ml 2400 ml 4350 ml # Bowel Movements 1 Result Diagram: 07/15/17 0617 07/15/17 0617 Procedures None Assessment and Plan Assessment and Plan 62 year old male. 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 Defer to Oncology. Alphonso Huang MD Jul 15, 2017 07:36
[2017-07-15] MEDS: INSULIN ASPART SUPPLEMENTAL SCALE SQ SCH ×2 (08:00→12:00)
[2017-07-15 08:21] VITALS: BP 155/75; PULSE 68; RESP 16; TEMP 98.2; O2SAT 90
[2017-07-15] MEDS: PANTOPRAZOLE SOD 20 MG DELAYED RELEASE TAB PO SCH (08:47)
[2017-07-15] MEDS: LISINOPRIL 5 MG TAB PO SCH (08:47)
[2017-07-15] MEDS: ASPIRIN 81 MG CHEW TAB CHEW SCH (08:47)
[2017-07-15] MEDS: DOCUSATE SODIUM 50 MG/SENNA 8.6 MG TAB PO SCH (08:48)
[2017-07-15] MEDS: INSULIN ASPAR PROT 70/30 1,000 UNITS/10 ML VIAL SQ SCH (08:48)
[2017-07-15] MEDS: SODIUM CHLORIDE 0.9% FLUSH 10 ML FLUSH IV FLUSH SCH (08:48)
[2017-07-15 09:07] VITALS: PULSE 76
--- NOTE | 2017-07-15 09:24 | PD.ONC.PN ---
Subjective Subjective Remarks Afebrile overnight. Patient just heard about his diagnosis this AM from Dr. Huang. States he wants to proceed with treatment when possible. States his throat pain is about a 7 right now as he is awaiting his oxycodone. usually after he receives his oxycodone the pain improves to a 3 or 4. Objective Data Date Time Temp Pulse Resp B/P (MAP) Pulse Ox O2 Delivery O2 Flow Rate FiO2 07/15/17 08:21 98.2 68 16 155/75 (101) 90 07/15/17 08:21 Nasal Cannula 3.00 07/15/17 04:00 97.9 74 16 152/72 (98) 94 07/15/17 00:45 98.0 71 16 141/70 (93) 93 07/14/17 21:10 Nasal Cannula 3.00 07/14/17 21:10 72 07/14/17 20:15 97.8 73 16 121/60 (80) 94 07/14/17 19:49 3.00 07/14/17 17:00 98.8 70 18 130/72 (91) 96 07/14/17 12:00 98.6 78 18 134/75 (94) 97 07/14/17 11:21 Nasal Cannula 3.00 07/15/17 07/15/17 07/15/17 07:00 15:00 23:00 Intake Total 2720 ml Output Total 4350 ml Balance -1630 ml Result Diagram: 07/15/17 0617 07/15/17 0617 Laboratory Results Laboratory Tests Test 07/15/17 06:17 White Blood Count 12.2 TH/MM3 Red Blood Count 4.46 MIL/MM3 Hemoglobin 12.9 GM/DL Hematocrit 37.7 % Mean Corpuscular Volume 84.5 FL Mean Corpuscular Hemoglobin 28.9 PG Mean Corpuscular Hemoglobin Concent 34.1 % Red Cell Distribution Width 14.3 % Platelet Count 237 TH/MM3 Mean Platelet Volume 8.4 FL Neutrophils (%) (Auto) 66.1 % Lymphocytes (%) (Auto) 20.6 % Monocytes (%) (Auto) 9.4 % Eosinophils (%) (Auto) 3.0 % Basophils (%) (Auto) 0.9 % Neutrophils # (Auto) 8.1 TH/MM3 Lymphocytes # (Auto) 2.5 TH/MM3 Monocytes # (Auto) 1.1 TH/MM3 Eosinophils # (Auto) 0.4 TH/MM3 Basophils # (Auto) 0.1 TH/MM3 CBC Comment DIFF FINAL Differential Comment Blood Urea Nitrogen 7 MG/DL Creatinine 0.31 MG/DL Random Glucose 130 MG/DL Total Protein 6.1 GM/DL Albumin 2.8 GM/DL Calcium Level 8.2 MG/DL Alkaline Phosphatase 120 U/L Aspartate Amino Transf (AST/SGOT) 48 U/L Alanine Aminotransferase (ALT/SGPT) 30 U/L Total Bilirubin 0.3 MG/DL Sodium Level 139 MEQ/L Potassium Level 3.6 MEQ/L Chloride Level 99 MEQ/L Carbon Dioxide Level 32.4 MEQ/L Anion Gap 8 MEQ/L Estimat Glomerular Filtration Rate 294 ML/MIN Total Creatine Kinase 1375 U/L Creatine Kinase MB 39.9 NG/ML Creatine Kinase MB % 2.9 % Administered Medications Medications (Trade) Dose Ordered Sig/Alfred Route PRN Reason Start Time Stop Time Status Last Admin Dose Admin Sodium Chloride 1,000 ml @ 200 mls/hr Q5H IV 07/10/17 18:21 07/15/17 04:58 Sodium Chloride (NS Flush) 2 ml BID IV FLUSH 07/10/17 21:00 07/11/17 21:00 Heparin Sodium (Porcine) (Heparin Inj) 5,000 units Q8H SQ 07/10/17 20:00 07/15/17 04:00 Acetaminophen (Tylenol) 650 mg Q4H PRN PO TEMP > 100.4 07/10/17 18:30 07/11/17 11:38 Senna/Docusate Sodium (Bing-Colace) 1 tab BID PO 07/10/17 21:00 07/11/17 09:00 Aspirin (Aspirin Chew) 81 mg DAILY CHEW 07/11/17 09:00 07/15/17 08:47 Lisinopril (Prinivil) 5 mg DAILY PO 07/11/17 09:00 07/15/17 08:47 Pantoprazole Sodium (Protonix) 10 mg DAILY PO 07/11/17 09:00 07/15/17 08:47 Insulin Aspart (NovoLOG SUPPLEMENTAL SCALE) 1 ACHS SLIDING SCALE SQ 07/10/17 21:00 07/14/17 19:29 Azithromycin 500 mg/Sodium Chloride 250 ml @ 250 mls/hr Q24H IV 07/10/17 20:00 07/14/17 19:30 Ceftriaxone Sodium 1000 mg/ Sodium Chloride 100 ml @ 200 mls/hr Q24H IV 07/10/17 20:00 07/14/17 19:30 Morphine Sulfate (Morphine Inj) 2 mg Q3H PRN IV PUSH BREAKTHROUGH PAIN 07/11/17 09:30 07/15/17 04:51 Oxycodone HCl (Roxicodone) 5 mg Q4H PRN PO pain >5 07/14/17 01:30 07/15/17 08:47 Insulin Aspart Prota 70%/Aspart 30% (NovoLOG MIX 70/ 30 INJ) 10 units BID@08,17 SQ 07/14/17 17:00 07/15/17 08:48 Objective Remarks GENERAL: malnourished appearing middle aged male, sitting up in bed. appears somewhat disheveled, unshaven. Mildly anxious. SKIN: Warm and dry. HEAD: Normocephalic. MOUTH: large mass, right tonsil EYES: No injection or drainage. NECK: Supple, trachea midline. CARDIOVASCULAR: Regular rate and rhythm RESPIRATORY: diminished at bases, scattered wheeze. GASTROINTESTINAL: Abdomen soft, non-tender, nondistended. EXTREMITIES: No cyanosis MUSCULOSKELETAL: Adequate muscle tone. NEUROLOGICAL: awake and alert, normal speech. moving all extremities. Assessment/Plan Problem List: (1) Squamous cell carcinoma of head and neck ICD Codes: C76.0 - Malignant neoplasm of head, face and neck Plan: --appears to have locally advanced disease --path=squamous cell carcinoma. --will need concurrent chemotherapy/radiation --P16 pending Assessment 62y/o male with right tonsillar head and neck cancer. h/o hypertension, diabetes, hyperlipidemia, COPD. Plan 1. face sheet faxed to new patient referrals for follow up. [facility] also [facility] 2. discussed patient's pathology results and in general terms the treatment which will be chemotherapy/radiation outpatient 3. patient clear for discharge from oncology perspective. Attending Statement Pt DC before could be seen. Discussed above. He needs fu with med onc and rad onc to initiate concurrent chemo/XRT tx. Appt offered here, however he may need to follow up at [facility]. Mai Leslie Jul 15, 2017 09:24 Stephanie Garrison MD Jul 15, 2017 19:32
--- NOTE | 2017-07-15 11:18 | HHI.PR ---
Subjective Remarks Follow-up right tonsil lesion 07/14/17-patient seen and examined, denies any significant shortness of breath or chest pain. No acute event overnight. 07/15/17-patient seen and examined, requesting narcotics secondary to throat pain. Pathology of biopsy positive for squamous cell carcinoma Objective Vitals Vital Signs Date Time Temp Pulse Resp B/P (MAP) Pulse Ox O2 Delivery O2 Flow Rate FiO2 07/15/17 08:21 98.2 68 16 155/75 (101) 90 07/15/17 08:21 Nasal Cannula 3.00 07/15/17 04:00 97.9 74 16 152/72 (98) 94 07/15/17 00:45 98.0 71 16 141/70 (93) 93 07/14/17 21:10 Nasal Cannula 3.00 07/14/17 21:10 72 07/14/17 20:15 97.8 73 16 121/60 (80) 94 07/14/17 19:49 3.00 07/14/17 17:00 98.8 70 18 130/72 (91) 96 07/14/17 12:00 98.6 78 18 134/75 (94) 97 07/14/17 11:21 Nasal Cannula 3.00 I/O 07/14/17 07/14/17 07/14/17 07/15/17 07/15/17 07/15/17 07:00 15:00 23:00 07:00 15:00 23:00 Intake Total 1900 ml 1100 ml 1310 ml 2720 ml 1000 ml Output Total 825 ml 2400 ml 4350 ml Balance 1075 ml 1100 ml -1090 ml -1630 ml 1000 ml Intake Oral 960 ml 720 ml IV Total 1900 ml 1100 ml 350 ml 2000 ml 1000 ml Output Urine Total 825 ml 2400 ml 4350 ml # Bowel Movements 1 Result Diagram: 07/15/17 0617 07/15/17 0617 Imaging Last Impressions Chest CT 07/11/17 0000 Signed Impressions: Service Date/Time: Tuesday, July 11, 2017 17:15 - CONCLUSION: 1. Advanced COPD changes. 2. Apical pleural thickening and scarring in the right lung apex. 3. Atelectatic changes and scarring at the right lung base. 4. Scattered, mildly enlarged lymph nodes in the AP window and mediastinum. Kishor Woodward MD Chest X-Ray 07/10/17 1600 Signed Impressions: Service Date/Time: Monday, July 10, 2017 16:20 - CONCLUSION: 1. Mild patchy opacity now noted right lung base which could represent early pneumonia. 2. Chronic scarring and underlying emphysema. Bret Peterson MD Neck CT 07/10/17 0000 Signed Impressions: Service Date/Time: Monday, July 10, 2017 19:08 - CONCLUSION: Ill-defined mass of the right tongue base and tissue diagnosis is recommended. Upper limits of normal to slightly enlarged right cervical and submandibular lymph nodes. Gumaro Bennett MD Objective Remarks GENERAL: NAD SKIN: Warm and dry. HEAD: Normocephalic. EYES: No scleral icterus. No injection or drainage. NECK: Supple, trachea midline. No JVD or lymphadenopathy. CARDIOVASCULAR: Regular rate and rhythm without murmurs, gallops, or rubs. RESPIRATORY: Breath sounds equal bilaterally. No accessory muscle use. GASTROINTESTINAL: Abdomen soft, non-tender, nondistended. MUSCULOSKELETAL: No cyanosis, or edema. BACK: Nontender without obvious deformity. No CVA tenderness. Procedures s/p Microlaryngoscopy, and biopsy right tonsil 07/13/17 A/P Problem List: (1) Squamous cell carcinoma of head and neck ICD Code: C76.0 - Malignant neoplasm of head, face and neck (2) Rhabdomyolysis ICD Code: M62.82 - Rhabdomyolysis Status: Acute (3) Community acquired pneumonia ICD Code: J18.9 - Community acquired pneumonia Status: Acute Assessment and Plan 62-year-old man with 1. Rhabdomyolysis Improving CK with aggressive IV fluid resuscitation 2. Pneumonia continue Ceftriaxone and Azithromycin. blood culture negative ; will switch to by mouth azithromycin 3. COPD non exacerbated continue bronchodilator, Mucolytic or incentive spirometry. 4. Right tonsil and right tongue base with probable malignancy Squamous cell carcinoma of Head and neck s/p Microlaryngoscopy, and biopsy right tonsil. Biopsy-positive for squamous cell carcinoma Patient will follow outpatient with [place] Appreciate input of both oncology and ENT 5. 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 6 DM II Currently on NovoLog 70/30 10 units twice a day pending hemoglobin A1c Continue insulin sliding scale. 7. Hyperlipidemia on hold Statin 8. Hypertension controlled. 9. chronic liver enzymes elevation probable secondary to alcohol intake. at expense of AST and alkaline phosphatase due to chronic pancreatitis and Cholelithiasis. SCDs for DVT prophylaxis. Heparin Zechariah Muse MD Jul 15, 2017 11:18
[2017-07-15] MEDS ORDERED: NOVOLOGMXP SQ (11:31)
[2017-07-15] MEDS ORDERED: PRAV40TA PO (11:31)
[2017-07-15] MEDS ORDERED: LISI-519 PO (11:31)
[2017-07-15] MEDS ORDERED: OXYC-392 PO (11:31)
[2017-07-15] MEDS ORDERED: AZIT250T3 PO (11:31)
--- NOTE | 2017-07-15 11:33 | HHI.DS ---
Discharge Summary Admission Date Jul 10, 2017 at 17:56 Discharge Date: Jul 15, 2017 Admitting Diagnosis NSTEMI; URI; Poss Head/Neck Ca (1) Squamous cell carcinoma of head and neck ICD Code: C76.0 - Malignant neoplasm of head, face and neck (2) Rhabdomyolysis ICD Code: M62.82 - Rhabdomyolysis Status: Acute (3) Community acquired pneumonia ICD Code: J18.9 - Community acquired pneumonia Status: Acute Procedures s/p Microlaryngoscopy, and biopsy right tonsil 07/13/17 Brief History - From Admission 62-year-old male with a past medical history significant for hypertension, hyperlipidemia, type 2 diabetes mellitus and COPD presents with chest and mouth pain. The patient reports that he has been suffering from severe mouth and throat pain since Tuesday. He describes the pain as a constant aching with intermittent stabbing. He also endorses chest pain that began late Tuesday night. He states it feels as though someone is "leaning on his chest." He endorses mild shortness of breath and a nonproductive cough. Patient denies any recent falls or prolonged periods of inactivity. Vital signs: Temperature 98.3, pulse 85, respiratory rate 20, BP 167/79, pulse ox 95% on room air. Patient has a leukocytosis of 16.1. His total creatinine kinase is 5145. Troponin elevated at 0.18. Chest x-ray showed mild patchy opacity in the right lung base. CBC/BMP: 07/15/17 0617 07/15/17 0617 Significant Findings Laboratory Tests Test 07/13/17 15:28 07/15/17 06:17 Creatinine 0.50 MG/DL (0.60-1.30) 0.31 MG/DL (0.60-1.30) Random Glucose 273 MG/DL (74-106) 130 MG/DL (74-106) Calcium Level 8.2 MG/DL (8.5-10.1) 8.2 MG/DL (8.5-10.1) Sodium Level 133 MEQ/L (136-145) Chloride Level 95 MEQ/L (98-107) Carbon Dioxide Level 32.2 MEQ/L (21.0-32.0) 32.4 MEQ/L (21.0-32.0) Total Creatine Kinase 2940 U/L (39-308) 1375 U/L (39-308) Creatine Kinase MB 95.4 NG/ML (0.5-3.6) 39.9 NG/ML (0.5-3.6) White Blood Count 12.2 TH/MM3 (4.0-11.0) Red Blood Count 4.46 MIL/MM3 (4.50-5.90) Hemoglobin 12.9 GM/DL (13.0-17.0) Hematocrit 37.7 % (39.0-51.0) Monocytes (%) (Auto) 9.4 % (0.0-8.0) Neutrophils # (Auto) 8.1 TH/MM3 (1.8-7.7) Monocytes # (Auto) 1.1 TH/MM3 (0-0.9) Total Protein 6.1 GM/DL (6.4-8.2) Albumin 2.8 GM/DL (3.4-5.0) Alkaline Phosphatase 120 U/L (45-117) Aspartate Amino Transf (AST/SGOT) 48 U/L (15-37) Imaging Last Impressions Chest CT 07/11/17 0000 Signed Impressions: Service Date/Time: Tuesday, July 11, 2017 17:15 - CONCLUSION: 1. Advanced COPD changes. 2. Apical pleural thickening and scarring in the right lung apex. 3. Atelectatic changes and scarring at the right lung base. 4. Scattered, mildly enlarged lymph nodes in the AP window and mediastinum. Kishor Woodward MD Chest X-Ray 07/10/17 1600 Signed Impressions: Service Date/Time: Monday, July 10, 2017 16:20 - CONCLUSION: 1. Mild patchy opacity now noted right lung base which could represent early pneumonia. 2. Chronic scarring and underlying emphysema. Bret Peterson MD Neck CT 07/10/17 0000 Signed Impressions: Service Date/Time: Monday, July 10, 2017 19:08 - CONCLUSION: Ill-defined mass of the right tongue base and tissue diagnosis is recommended. Upper limits of normal to slightly enlarged right cervical and submandibular lymph nodes. Gumaro Bennett MD PE at Discharge GENERAL: NAD SKIN: Warm and dry. HEAD: Normocephalic. EYES: No scleral icterus. No injection or drainage. NECK: Supple, trachea midline. No JVD or lymphadenopathy. CARDIOVASCULAR: Regular rate and rhythm without murmurs, gallops, or rubs. RESPIRATORY: Breath sounds equal bilaterally. No accessory muscle use. GASTROINTESTINAL: Abdomen soft, non-tender, nondistended. MUSCULOSKELETAL: No cyanosis, or edema. BACK: Nontender without obvious deformity. No CVA tenderness. Hospital Course While in hospital, patient was treated for 1. Rhabdomyolysis Improving with IV fluids hydration and monitoring of CK 2. Pneumonia He was started on IV antibiotics including Ceftriaxone and Azithromycin. blood culture remained negative ; He with be switched to by mouth azithromycin 3. COPD non exacerbated continue bronchodilator, Mucolytic or incentive spirometry. 4. Right tonsil and right tongue base with probable malignancy Squamous cell carcinoma of Head and neck s/p Microlaryngoscopy, and biopsy right tonsil. Biopsy-positive for squamous cell carcinoma [facility] Appreciate input of both oncology and ENT 5. 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 6 DM II He was treated with NovoLog 70/30 10 units twice a day as well as sliding scale insulin pending hemoglobin A1c 7. Hyperlipidemia: Terri was on hold secondary to elevated LFTs however with improvement of LFTs, patient will resume Pravachol on discharge 8. Hypertension controlled with lisinopril 9. chronic liver enzymes elevation probable secondary to alcohol intake. at expense of AST and alkaline phosphatase due to chronic pancreatitis and Cholelithiasis. Pt Condition on Discharge: Stable Discharge Disposition: Discharge Home Discharge Time: > 30 minutes Discharge Instructions DIET: Follow Instructions for: Diabetic Diet Activities you can perform: Regular-No Restrictions Follow up Referrals: Oncology/Hematology - 1 Week with Stephanie Garrison MD PCP Follow-up - 1 Week New Medications: Azithromycin (Azithromycin) 250 Mg Tab 500 MG PO DAILY for Infection, #5 TAB Insulin Aspart Protam-Asp 70-30 Inj (Novolog Mix 70-30 Inj) 1,000 Unit/10 Ml Vial 10 UNITS SQ BID@08,17 for Blood Sugar Management, #100 INJECTION Lisinopril (Lisinopril) 5 Mg Tab 5 MG PO DAILY for Blood Pressure Management, #30 TAB Oxycodone (Oxycodone) 5 Mg Tab 5 MG PO Q4H PRN for pain >5, #10 TAB Continued Medications: Aspirin (Aspirin) 81 Mg Chew 81 MG CHEW DAILY, TAB 0 Refills Glipizide (Glipizide) 10 Mg Tab 10 MG PO DAILY for Blood Sugar Management, #30 TAB 0 Refills Take 30 minutes before a meal Omeprazole (Omeprazole) Unknown Strength Tab 10 MG PO DAILY, #30 TAB 0 Refills Pravastatin (Pravachol) 40 Mg Tab 40 MG PO HS for Cholesterol Management, #30 TAB (This prescription has been renewed) Discontinued Medications: Lisinopril (Lisinopril) 5 Mg Tab 5 MG PO DAILY for Blood Pressure Management, #30 TAB 0 Refills Zechariah Muse MD Jul 15, 2017 11:33
[2017-07-15 13:40] VITALS: BP 142/71; PULSE 70; RESP 16; TEMP 98.7; O2SAT 93
[2017-07-15 14:28] LABS: HEMOGLOBIN A1C 8.3 % (4.3-6.0)
--- NOTE | 2017-07-15 15:44 | MB ---
cc: MIGUEL ASENCIO MD,SOUTH Mike M.D. 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 STAGE Unknown at the present time. CHIEF COMPLAINT Right mild neck pain. REASON FOR CONSULTATION The patient is being evaluated for possible radiotherapy treatment options in case the patient has positive disease for carcinoma within the head and neck. HISTORY OF PRESENT ILLNESS This is a 62-year-old white male who says he was doing good with no complaints or symptoms. He says over the weekend he started having pain in the right neck and right mouth and tongue which progressively got worse to the point where he could not stand it anymore. For this reason he came to the hospital. Imaging studies were done which detected a possible mass within the right base of tongue. He had biopsies and exam under anesthesia performed by Dr. Huang today. A consult has been placed for the patient to be evaluated regarding possible radiation therapy for malignancy. PAST MEDICAL HISTORY 1. COPD. 2. Hyperlipidemia. 3. Diabetes, type 2. 4. Laparotomy with lysis of adhesions in August 2016. 5. Cyst removal. MEDICATIONS 1. Albuterol sulfate. 2. Fentanyl citrate. 3. Morphine. 4. Aspirin. 5. Benazepril. 6. Protonix. 7. Bing-Colace. 8. DuoNeb. 9. Zofran. 10.Dulcolax. 11.Lactulose. ALLERGIES PENICILLIN. FAMILY HISTORY Denies any history of carcinoma in the family. SOCIAL HISTORY The patient continues to smoke at this point, about eight cigarettes per day, and has been doing so for over 40 years. The patient denies any major alcohol intake. REVIEW OF SYSTEMS CONSTITUTIONAL: The patient denies any decreased or loss of appetite, was able to eat good until the weekend. ALLERGIES: Has not had an allergic reaction recently. EYES: Unremarkable. ENT: Right neck pain as well as right tongue pain and pain with swallowing. NECK: Denies any neck masses. INTEGUMENTARY: Unremarkable. CARDIOVASCULAR: Unremarkable. Denies any chest pain. No clinical signs of MT. RESPIRATORY: Unremarkable. Denies any hemoptysis, cough or shortness of breath. GASTROINTESTINAL: Unremarkable. GENITOURINARY: Unremarkable. MUSCULOSKELETAL: Pain in the right neck. NEUROLOGIC: Denies any neurological deficits. No decrease in cognitive functions. No clinical signs of stroke. PSYCHIATRIC: Denies any depression or suicidal thoughts. ENDOCRINE: Diabetes. HEMATOLOGIC: Unremarkable. DERMATOLOGIC: Unremarkable. PHYSICAL EXAMINATION GENERAL: The patient is oriented x3, in no major pain. He rates his pain rates as 2/4 at the present time, under control. VITAL SIGNS: Temperature 98.7, pulse 82, respiratory rate 20, blood pressure 111/55, pulse ox 93% room air. LUNGS: Auscultation of bilateral lungs with decreased ventilatory respiratory effort which is equal and bilateral. Lungs were clear. HEART: Regular rate and rhythm without murmurs. NECK: Palpation of bilateral neck reveals no suspicious masses or nodules. No lymph nodes. Bilateral supraclavicular areas are free. ORAL CAVITY: Visual exam of the oral cavity reveals the site of biopsy in the right tonsil. There is slight bulging of the right base of tongue. The patient did not want me to touch his tongue as it was extremely painful. No other lesions were detected within the oral cavity. The patient is edentulous. ABDOMEN: Palpation of the abdominal cavity reveals no hepatosplenomegaly, no periumbilical lymph nodes. No pain elicited. EXTREMITIES: Lower extremities without edema. NEUROLOGIC: No neurological deficit detected. Cognitive functions are preserved. Motor functions are preserved. SKIN: No rash. PATHOLOGY Biopsy done 07/10/[address] Neck CT 07/10/2017, Impression: Ill-defined mass in the right tongue base. Upper limits of normal to slightly enlarged right cervical and submandibular lymph nodes. Chest x-ray 07/10/[address] of the chest 07/11/2017, Impression: Advanced COPD changes. Apical pleural thickening and scarring at the right lung apex. Atelectatic changes and scarring in the right lung base. Scattered mildly enlarged lymph nodes in the AP window and mediastinum. ASSESSMENT A 62-year-old white male with a possible diagnosis of head and neck malignancy; biopsy pending. The patient is being evaluated for radiotherapy treatment options. PLAN I had an extensive discussion with the patient in regards to his presenting condition. I advised the patient that if he indeed has a malignancy in the head and neck area that he will need medical oncology evaluation for possible concomitant chemoradiotherapy. I advised the patient I will await the results of the biopsy and proceed from there. I will see the patient as an outpatient. I will get a PET scan once the patient is discharged. I discussed the case with the head and neck navigator to help us arrange for studies and appointments as needed. The patient does not have any teeth so he is not going to need a dental evaluation. The patient was advised of the merits of radiotherapy as well as side effects and complications. He understood everything that was explained. I will see him in about a week. The patient was advised that if I could be of any further assistance to please let me know, otherwise will proceed as above. Dr. Huang, thank you very much for placing this consult and allowing me to participate in the care of your patient. Should you have any further questions or concerns please do not hesitate to contact me. MD ALYSE Renteria/ORTIZ /6:25 PM /3:29 PM CRYSTAL
[2017-07-16] MEDS ORDERED: AZITHROMYCIN 250 MG TAB PO SCH (09:00)
== END 2017-07-15 15:50 | disposition home or self-care (01) | DRG 146 ==
LOC: NEPC 14:58 → NEDA 17:56 → HCIS 19:41 → HCIN 07-13 18:50
PROVIDERS: ADMIT Hospitalist; ATTEND Hospitalist
PROC: 0CBM8ZX Excision of Pharynx, Via Natural or Artificial Opening Endoscopic, Diagnostic (ICD-10-PCS; principal; 2017-07-13 10:45)
DX: C09.9 Malignant neoplasm of tonsil, unspecified (principal); J18.9 Pneumonia, unspecified organism; M62.82 Rhabdomyolysis; J44.0 Chronic obstructive pulmonary disease with (acute) lower respiratory infection; E11.9 Type 2 diabetes mellitus without complications; Z79.84 Long term (current) use of oral hypoglycemic drugs; R07.89 Other chest pain; I10 Essential (primary) hypertension; E78.5 Hyperlipidemia, unspecified; F17.210 Nicotine dependence, cigarettes, uncomplicated; R94.5 Abnormal results of liver function studies; K08.109 Complete loss of teeth, unspecified cause, unspecified class
CPT/HCPCS: 70491; 71045; 71250; 80048; 80053; 82550; 82552; 82948; 83036; 83605; 83735; 84484; 85025; 85610; 85730; 87040; 87070; 87205; 88304; 88305; 93005; 99285; J0330; J0456; J0696; J1100; J1644; J1815; J2270; J2370; J2405; J3010; J7030; J7050; J7613; Q9967

== ENCOUNTER 2017-09-22 15:30 | Inpatient (IN) | payer OTHER ==
[2017-09-22] VITALS (9 sets, daily range): BP systolic 62–142; BP diastolic 53–85; PULSE 76–112; RESP 18–39; TEMP 98.2; O2SAT 86–99
[~2017-09-22] VITALS: Ht 182.9 cm; Wt 72.5 kg
[~2017-09-22 15:30] MED LIST changes: +ASPI-516 CHEW; +AZIT250T3 PO; +GLIP10TA6 PO; -INDO50CA PO; +LISI-519 PO; +OMEP20TA93 PO; +OXYC-392 PO; -PANT40TA3 PO; -[UNRECOGNIZED DRUG - REMARK]; -blood pressure pill; -cholesterol pill
[2017-09-22] MEDS ORDERED: MORPHINE SULFATE 2 MG/ML SYRINGE IV PUSH ONE (16:30)
[2017-09-22] MEDS ORDERED: ONDANSETRON HCL 4 MG/2 ML VIAL IV PUSH ONE (16:30)
[2017-09-22] MEDS ORDERED: SODIUM CHLOR 0.9% 1000 ML INJ 1,000 ML IV ONE ×2 (16:30→19:15)
[2017-09-22 16:57] LABS: AUTOMATED NEUTROPHIL # 17.1 TH/MM3 (1.8-7.7); BASOPHIL # 0.1 TH/MM3 (0-0.2); BASOPHIL % 0.4 % (0.0-2.0); EOSINOPHIL # 0.1 TH/MM3 (0-0.4); EOSINOPHIL % 0.5 % (0.0-4.0); HEMATOCRIT 41.6 % (39.0-51.0); HEMOGLOBIN 13.9 GM/DL (13.0-17.0); LYMPH % 8.7 % (9.0-44.0); MEAN CELL VOLUME 85.6 FL (80.0-100.0); MEAN CORPUSCULAR HEMOGLOBIN 28.5 PG (27.0-34.0); MEAN CORPUSCULAR HGB CONC 33.3 % (32.0-36.0); MEAN PLATELET VOLUME 7.8 FL (7.0-11.0); MONO % 14.8 % (0.0-8.0); MONOCYTE # 3.3 TH/MM3 (0-0.9); NEUT % 75.6 % (16.0-70.0); PLATELET COUNT 446 TH/MM3 (150-450); RED BLOOD COUNT 4.86 MIL/MM3 (4.50-5.90); WHITE BLOOD COUNT 22.6 TH/MM3 (4.0-11.0)
[2017-09-22 17:02] LABS: INTERNATIONAL NORMALIZED RATIO 1.1 RATIO
[2017-09-22 17:12] LABS: ALBUMIN 2.9 GM/DL (3.4-5.0); ALT (GPT) 32 U/L (12-78); AST (GOT) 58 U/L (15-37); BICARBONATE 26.7 MEQ/L (21.0-32.0); BLOOD UREA NITROGEN 11 MG/DL (7-18); CALCIUM 8.7 MG/DL (8.5-10.1); CHLORIDE 96 MEQ/L (98-107); CREATININE 0.56 MG/DL (0.60-1.30); GLOMERULAR FILTRATION RATE 149 ML/MIN (>89); GLUCOSE,RANDOM 191 MG/DL (74-106); MAGNESIUM 1.8 MG/DL (1.5-2.5); SODIUM (NA) 132 MEQ/L (136-145)
[2017-09-22 17:14] LABS: ALKALINE PHOSPHATASE 135 U/L (45-117); TOTAL BILIRUBIN ADULT 0.5 MG/DL (0.2-1.0); TOTAL PROTEIN 7.4 GM/DL (6.4-8.2)
--- NOTE | 2017-09-22 17:29 | RADRPT ---
EXAM DATE/TIME: 09/22/2017 16:41 [facility] COMPARISON: CHEST SINGLE AP, July 10, 2017, 16:20. INDICATIONS : Cough. MEDICAL HISTORY : Chronic obstructive pulmonary disease. Cardiovascular disease diabetes SURGICAL HISTORY : None. ENCOUNTER: Initial ACUITY: 1 day PAIN SCORE: Non-responsive. LOCATION: Bilateral chest FINDINGS: There is stable mild scarring in the apices and right lung base. There is new airspace infiltrate in the left lung base. Possibly small associated effusion. Cardiac contours are grossly stable. CONCLUSION: New airspace infiltrate in the left lung base Gumaro Correa MD on September 22, 2017 at 17:25 Board Certified Radiologist. This report was verified electronically.
[2017-09-22 17:33] LABS: LYMPHOCYTES 9 % (9-44); MONOCYTES 11 % (0-8); NEUTROPHIL # MANUAL DIFF 17.9 TH/MM3 (1.8-7.7); POLYS (SEG NEUTROPHILS) 79 % (16-70)
[2017-09-22] MEDS ORDERED: IOHEXOL 350 MG/ML 10 ML VIAL (for RAD DIAG) IVCONTRAST ONE (18:03)
[2017-09-22] MEDS ORDERED: cefTRIAXone INJ 1,000 MG in SODIUM CHLORIDE 0.9% INJ 100 ML IV ONE (18:15)
[2017-09-22] MEDS ORDERED: AZITHROMYCIN INJ 500 MG in SODIUM CHLOR 0.9% 250 ML INJ 250 ML IV ONE (18:15)
[2017-09-22] MEDS ORDERED: LEVOFLOXACIN 750 MG PREMIX INJ 150 ML IV ONE (18:15)
--- NOTE | 2017-09-22 18:31 | RADRPT ---
EXAM DATE/TIME: 09/22/2017 18:03 [facility] COMPARISON: CT PULMONARY ANGIOGRAM, May 29, 2017, 17:16. INDICATIONS : General weakness and not feeling well. IV CONTRAST: 65 cc Omnipaque 350 (iohexol) IV RADIATION DOSE: 75 CTDIvol (mGy) MEDICAL HISTORY : Cardiovascular disease. Hypertension. Chronic obstructive pulmonary disease.Facial ca SURGICAL HISTORY : None. ENCOUNTER: Initial ACUITY: 1 day PAIN SCALE: 8/10 LOCATION: Right TECHNIQUE: Volumetric scanning of the chest was performed using a pulmonary embolism protocol MIP images were re constructed. Using automated exposure control and adjustment of the mA and/or kV according to patien t size, radiation dose was kept as low as reasonably achievable to obtain optimal diagnostic quality images. DICOM format image data is available electronically for review and comparison. Follow-up recommendations for detected pulmonary nodules are based at a minimum on nodule size and pa tient risk factors according to Fleischner Society Guidelines. FINDINGS: PULMONARY ARTERIES: No filling defects are seen in the pulmonary arteries through the segmental level. LUNGS: There is widespread emphysematous change. There is irregular linear density seen in the posterior rig ht upper lobe which was present previously likely related to scarring. There is dense consolidation i nvolving much of the inferior aspect of the left lower lobe. There is scattered linear atelectasis or scarring in the right middle lobe and anterior right lower lobe. PLEURAE: There is no pleural thickening or pleural effusion. MEDIASTINUM: There are enlarged lymph nodes throughout the mediastinum in the precarinal, pretracheal, right parat nolberto, AP window, subcarinal, and left hilar regions. These were present previously. Coronary arter y calcifications are present. MUSCULOSKELETAL: Within normal limits for patient age. MISCELLANEOUS: The visualized upper abdominal organs demonstrate no acute abnormality. CONCLUSION: 1. No pulmonary. 2. Dense consolidation in the left lower lobe area this could be related to inflammatory/infectious p rocess. 3. Persistent adenopathy throughout the mediastinum in the left hilum. This is nonspecific. Reactive, inflammatory change versus neoplasm can have this appearance. A left hilar mass could have a similar appearance. One could further evaluate a patient with PET FDG study as an outpatient. 4. Widespread very prominent emphysematous change. 5. Suspected scarring in the right upper lung. Gumaro Schuster MD on September 22, 2017 at 18:24 Board Certified Radiologist. This report was verified electronically.
--- NOTE | 2017-09-22 18:46 | PD ---
Physical Exam Date Seen by Provider: Sep 22, 2017 Time Seen by Provider: 17:30 Narrative I, Dr. Aly, have reviewed the advance practice practitioner's documentation and am in agreement, met with the patient face to face, made the diagnosis, and the medical decision making was done by me. *My assessment and Findings: Patient seen and evaluated with PA, please see PA notes for further details. 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 On exam, he has decreased breath sounds at the left base. Laboratory Tests Test 09/22/17 16:40 White Blood Count 22.6 TH/MM3 (4.0-11.0) Neutrophils (%) (Auto) 75.6 % (16.0-70.0) Lymphocytes (%) (Auto) 8.7 % (9.0-44.0) Monocytes (%) (Auto) 14.8 % (0.0-8.0) Neutrophils # (Auto) 17.1 TH/MM3 (1.8-7.7) Monocytes # (Auto) 3.3 TH/MM3 (0-0.9) Neutrophils % (Manual) 79 % (16-70) Monocytes % 11 % (0-8) Neutrophils # (Manual) 17.9 TH/MM3 (1.8-7.7) Creatinine 0.56 MG/DL (0.60-1.30) Random Glucose 191 MG/DL (74-106) Albumin 2.9 GM/DL (3.4-5.0) Alkaline Phosphatase 135 U/L (45-117) Aspartate Amino Transf (AST/SGOT) 58 U/L (15-37) Sodium Level 132 MEQ/L (136-145) Chloride Level 96 MEQ/L (98-107) Lipase 42 U/L (73-393) Last 24 hours Impressions Chest X-Ray 09/22/17 1625 Signed Impressions: Service Date/Time: August 16:41 - CONCLUSION: New airspace infiltrate in the left lung base Gumaro Correa MD CT Angiography 09/22/17 0000 Signed Impressions: Service Date/Time: Thursday, September 22, 2017 18:03 - CONCLUSION: 1. No pulmonary. 2. Dense consolidation in the left lower lobe area this could be related to inflammatory/infectious process. 3. Persistent adenopathy throughout the mediastinum in the left hilum. This is nonspecific. Reactive, inflammatory change versus neoplasm can have this appearance. A left hilar mass could have a similar appearance. One could further evaluate a patient with PET FDG study as an outpatient. 4. Widespread very prominent emphysematous change. 5. Suspected scarring in the right upper lung. Gumaro Schuster MD Lab work shows significant leukocytosis. Sepsis culture was initiated and IV antibiotics were given in the ER. Patient was given IV fluids and nausea medications. CAT scan did not show any signs of PE. At this point, plan would be to admit the patient for further treatment. Case is discussed with hospitalist for admission. Data Data Last Documented VS Vital Signs Date Time Temp Pulse Resp B/P (MAP) Pulse Ox O2 Delivery O2 Flow Rate FiO2 09/22/17 16:45 95 Nasal Cannula 6.00 09/22/17 16:35 108 39 09/22/17 15:45 98.2 Orders Orders Electrocardiogram (09/22/17 16:25) Complete Blood Count With Diff (09/22/17 16:25) Comprehensive Metabolic Panel (09/22/17 16:25) Prothrombin Time / Inr (Pt) (09/22/17 16:25) Act Partial Throm Time (Ptt) (09/22/17 16:25) Blood Culture (09/22/17 16:25) Lipase (09/22/17 16:25) Urinalysis - C+S If Indicated (09/22/17 16:25) Magnesium (Mg) (09/22/17 16:25) Influenzae A/B Antigen (09/22/17 16:25) Chest, Single Ap (09/22/17 16:25) Iv Access Insert/Monitor (09/22/17 16:25) Ecg Monitoring (09/22/17 16:25) Oximetry (09/22/17 16:25) Lactic Acid Sepsis Protocol (09/22/17 16:25) Sodium Chlor 0.9% 1000 Ml Inj (Ns 1000 M (09/22/17 16:30) Morphine Inj (Morphine Inj) (09/22/17 16:30) Ondansetron Inj (Zofran Inj) (09/22/17 16:30) Ct Pulmonary Angiogram (09/22/17 ) Levofloxacin 750 Mg Premix Inj (Levaquin (09/22/17 18:15) Ceftriaxone Inj (Rocephin Inj) (09/22/17 18:15) Azithromycin Inj (Zithromax Inj) (09/22/17 18:15) Labs Laboratory Tests Test 09/22/17 16:40 White Blood Count 22.6 TH/MM3 Red Blood Count 4.86 MIL/MM3 Hemoglobin 13.9 GM/DL Hematocrit 41.6 % Mean Corpuscular Volume 85.6 FL Mean Corpuscular Hemoglobin 28.5 PG Mean Corpuscular Hemoglobin Concent 33.3 % Red Cell Distribution Width 14.0 % Platelet Count 446 TH/MM3 Mean Platelet Volume 7.8 FL Neutrophils (%) (Auto) 75.6 % Lymphocytes (%) (Auto) 8.7 % Monocytes (%) (Auto) 14.8 % Eosinophils (%) (Auto) 0.5 % Basophils (%) (Auto) 0.4 % Neutrophils # (Auto) 17.1 TH/MM3 Lymphocytes # (Auto) 2.0 TH/MM3 Monocytes # (Auto) 3.3 TH/MM3 Eosinophils # (Auto) 0.1 TH/MM3 Basophils # (Auto) 0.1 TH/MM3 CBC Comment AUTO DIFF Differential Total Cells Counted 100 Neutrophils % (Manual) 79 % Lymphocytes % 9 % Monocytes % 11 % Eosinophils % 1 % Neutrophils # (Manual) 17.9 TH/MM3 Differential Comment FINAL DIFF MANUAL Platelet Estimate NORMAL Platelet Morphology Comment NORMAL Prothrombin Time 11.0 SEC Prothromb Time International Ratio 1.1 RATIO Activated Partial Thromboplast Time 25.2 SEC Blood Urea Nitrogen 11 MG/DL Creatinine 0.56 MG/DL Random Glucose 191 MG/DL Total Protein 7.4 GM/DL Albumin 2.9 GM/DL Calcium Level 8.7 MG/DL Magnesium Level 1.8 MG/DL Alkaline Phosphatase 135 U/L Aspartate Amino Transf (AST/SGOT) 58 U/L Alanine Aminotransferase (ALT/SGPT) 32 U/L Total Bilirubin 0.5 MG/DL Sodium Level 132 MEQ/L Potassium Level 3.7 MEQ/L Chloride Level 96 MEQ/L Carbon Dioxide Level 26.7 MEQ/L Anion Gap 9 MEQ/L Estimat Glomerular Filtration Rate 149 ML/MIN Lactic Acid Level 1.3 mmol/L Lipase 42 U/L [facility] Medical Record Reviewed: Yes Supervised Visit with KEMAR: Yes Diagnosis Primary Impression: Pneumonia Additional Impression: Sepsis Admitting Information Admitting Physician Requests: it Alli Aly MD Sep 22, 2017 18:46
--- NOTE | 2017-09-22 19:18 | PD ---
HPI Chief Complaint: Facial Pain or Swelling Time Seen by Provider: 16:18 Travel History International Travel<30 days: No Contact w/Intl Traveler<30days: No Traveled to known affect area: No History of Present Illness HPI 62-year-old male that presents to the ED for evaluation of facial pain and possible pneumonia. Patient has had facial pain since cancer. Patient is taking p.o. medications with some relief but he continues to have the pain and he has a lot of pain right now. Per patient the pain is 8 out of 10. Per patient has been feeling weak and tired and feels that he has pneumonia. Per patient is spitting up a lot of phlegm. No urinary or bowel movement issues. States that he has been having cough. No chest pain or shortness of breath at this time. He does state that he does have some shortness of breath when he ambulates but not at this time. Does not take any blood thinners. Currently is not under any chemo or radiation and follows with Dr. Garrison for oncology. States having chills and sweats. Allergy to penicillin. History of MRSA. History of sepsis and pneumonia in the past. PFSH Past Medical History Arthritis: No Asthma: No Atrial Fibrillation: Yes Autoimmune Disease: No Blood Disorders: No Anxiety: No Depression: No Heart Rhythm Problems: No Cancer: Yes (THROAT CANCER ) Cardiovascular Problems: Yes High Cholesterol: Yes Chemotherapy: No Chest Pain: No Congestive Heart Failure: No COPD: Yes Cerebrovascular Accident: No Diabetes: Yes Patient Takes Glucophage: No Diminished Hearing: No Endocrine: Yes Gastrointestinal Disorders: Yes (BOWEL OBSTRUCTION ) GERD: Yes Genitourinary: No Headaches: Yes Hiatal Hernia: No Hypertension: Yes Immune Disorder: No Implanted Vascular Access Dvce: Yes Kidney Stones: No Musculoskeletal: No Neurologic: No Psychiatric: No Reproductive: No Respiratory: Yes Immunizations Current: Yes Migraines: No Pancreatitis: Yes Pneumonia: Yes Radiation Therapy: No Renal Failure: No Seizures: No Sickle Cell Disease: No Sleep Apnea: No Thyroid Disease: No Ulcer: No Tetanus Vaccination: > 5 Years Influenza Vaccination: No ?: Not Past Surgical History Abdominal Surgery: Yes ("STENT IN SPLEEN" 10 yrs ago,bowel resection surgery 2016) AICD: No Arteriovenous Shunt: No Body Medical Devices: "STENT IN SPLEEN" Cardiac Surgery: No Ear Surgery: No Endocrine Surgery: No Eye Surgery: No Genitourinary Surgery: No Gynecologic Surgery: No Insulin Pump: No Joint Replacement: No Neurologic Surgery: No Oral Surgery: No Pacemaker: No Thoracic Surgery: No Other Surgery: Yes (BACK SURGERY 25 YEARS AGO, ABD SX) Social History Alcohol Use: No Tobacco Use: Yes (06/30 ppd) Substance Use: No Allergies-Medications (Allergen,Severity, Reaction): Coded Allergies: penicillin G (Unverified Allergy, Severe, SWELLING, 09/22/17) has tolerated Cephalosporins in previous admissions *MDRO Multi-Drug Resistant Organism (Verified Adverse Reaction, Unknown, ) Hx MRSA Sputum 2006, Wounds 2003 MRSA PCR Screen negative 11/25/14 & 09/10/15. Cleared per Infection Control. Patient does not require isolation for hx of MRSA prior to 09/10/15. Reported Meds & Prescriptions Reported Meds & Active Scripts Active Oxycodone (Oxycodone HCl) 5 Mg Tab 5 Mg PO Q4H PRN Lisinopril 5 Mg Tab 5 Mg PO DAILY Pravachol (Pravastatin) 40 Mg Tab 40 Mg PO HS Reported Aspirin 81 Mg Chew 81 Mg CHEW DAILY Glipizide 10 Mg Tab 10 Mg PO DAILY Take 30 minutes before a meal Omeprazole Unknown Strength Tab 10 Mg PO DAILY Review of Systems Except as stated in HPI: all other systems reviewed are Neg Physical Exam Narrative GENERAL: Well-nourished, well-developed patient in no apparent distress. SKIN: Warm and dry. HEAD: Atraumatic. Normocephalic. EYES: Pupils equal and round reactive to light and accommodation. No scleral icterus. No injection or drainage. ENT: No nasal bleeding or discharge. Mucous membranes pink and moist. TMs are clear with no sign of infection or perforation. No mastoid tenderness. Ear canals are intact bilaterally. No lymphadenopathy. Nostril mucosa is red and moist with clear mucus noted. No sinus tenderness to palpation noted. Right inner mouth mass noted around the tonsils. Mild uvula Deviation. Tongue is midline. NECK: Trachea midline. No JVD. No meningeal signs noted CARDIOVASCULAR: Regular rate and rhythm. No murmurs, S3. S4. RESPIRATORY: No accessory muscle use. Clear to auscultation. Breath sounds equal bilaterally. GASTROINTESTINAL: Abdomen soft, non-tender, nondistended. Hepatic and splenic margins not palpable. MUSCULOSKELETAL: Extremities without clubbing, cyanosis, or edema. No obvious deformities. Full ROM of the upper and lower extremities bilaterally. 2+ pulses. NEUROLOGICAL: Awake and alert. No obvious cranial nerve deficits. Motor grossly within normal limits. Five out of 5 muscle strength in the arms and legs. Normal speech. PSYCHIATRIC: Appropriate mood and affect; insight and judgment normal. Data Data Last Documented VS Vital Signs Date Time Temp Pulse Resp B/P (MAP) Pulse Ox O2 Delivery O2 Flow Rate FiO2 09/22/17 19:01 112 28 62/61 (61) 87 Nasal Cannula 6.00 09/22/17 15:45 98.2 Orders Orders Electrocardiogram (09/22/17 16:25) Complete Blood Count With Diff (09/22/17 16:25) Comprehensive Metabolic Panel (09/22/17 16:25) Prothrombin Time / Inr (Pt) (09/22/17 16:25) Act Partial Throm Time (Ptt) (09/22/17 16:25) Blood Culture (09/22/17 16:25) Lipase (09/22/17 16:25) Urinalysis - C+S If Indicated (09/22/17 16:25) Magnesium (Mg) (09/22/17 16:25) Influenzae A/B Antigen (09/22/17 16:25) Chest, Single Ap (09/22/17 16:25) Iv Access Insert/Monitor (09/22/17 16:25) Ecg Monitoring (09/22/17 16:25) Oximetry (09/22/17 16:25) Lactic Acid Sepsis Protocol (09/22/17 16:25) Sodium Chlor 0.9% 1000 Ml Inj (Ns 1000 M (09/22/17 16:30) Morphine Inj (Morphine Inj) (09/22/17 16:30) Ondansetron Inj (Zofran Inj) (09/22/17 16:30) Ct Pulmonary Angiogram (09/22/17 ) Levofloxacin 750 Mg Premix Inj (Levaquin (09/22/17 18:15) Ceftriaxone Inj (Rocephin Inj) (09/22/17 18:15) Azithromycin Inj (Zithromax Inj) (09/22/17 18:15) Sodium Chlor 0.9% 1000 Ml Inj (Ns 1000 M (09/22/17 19:15) Admit Order (Ed Use Only) (09/22/17 19:18) Labs Laboratory Tests Test 09/22/17 16:40 White Blood Count 22.6 TH/MM3 Red Blood Count 4.86 MIL/MM3 Hemoglobin 13.9 GM/DL Hematocrit 41.6 % Mean Corpuscular Volume 85.6 FL Mean Corpuscular Hemoglobin 28.5 PG Mean Corpuscular Hemoglobin Concent 33.3 % Red Cell Distribution Width 14.0 % Platelet Count 446 TH/MM3 Mean Platelet Volume 7.8 FL Neutrophils (%) (Auto) 75.6 % Lymphocytes (%) (Auto) 8.7 % Monocytes (%) (Auto) 14.8 % Eosinophils (%) (Auto) 0.5 % Basophils (%) (Auto) 0.4 % Neutrophils # (Auto) 17.1 TH/MM3 Lymphocytes # (Auto) 2.0 TH/MM3 Monocytes # (Auto) 3.3 TH/MM3 Eosinophils # (Auto) 0.1 TH/MM3 Basophils # (Auto) 0.1 TH/MM3 CBC Comment AUTO DIFF Differential Total Cells Counted 100 Neutrophils % (Manual) 79 % Lymphocytes % 9 % Monocytes % 11 % Eosinophils % 1 % Neutrophils # (Manual) 17.9 TH/MM3 Differential Comment FINAL DIFF MANUAL Platelet Estimate NORMAL Platelet Morphology Comment NORMAL Prothrombin Time 11.0 SEC Prothromb Time International Ratio 1.1 RATIO Activated Partial Thromboplast Time 25.2 SEC Blood Urea Nitrogen 11 MG/DL Creatinine 0.56 MG/DL Random Glucose 191 MG/DL Total Protein 7.4 GM/DL Albumin 2.9 GM/DL Calcium Level 8.7 MG/DL Magnesium Level 1.8 MG/DL Alkaline Phosphatase 135 U/L Aspartate Amino Transf (AST/SGOT) 58 U/L Alanine Aminotransferase (ALT/SGPT) 32 U/L Total Bilirubin 0.5 MG/DL Sodium Level 132 MEQ/L Potassium Level 3.7 MEQ/L Chloride Level 96 MEQ/L Carbon Dioxide Level 26.7 MEQ/L Anion Gap 9 MEQ/L Estimat Glomerular Filtration Rate 149 ML/MIN Lactic Acid Level 1.3 mmol/L Lipase 42 U/L MDM Medical Decision Making Medical Screen Exam Complete: Yes Emergency Medical Condition: Yes Medical Record Reviewed: Yes Interpretation(s) CBC & BMP Diagram 09/22/17 16:40 Total Protein 7.4, Albumin 2.9 L, Calcium Level 8.7, Magnesium Level 1.8, Alkaline Phosphatase 135 H, Aspartate Amino Transf (AST/SGOT) 58 H, Alanine Aminotransferase (ALT/SGPT) 32, Total Bilirubin 0.5 lactic acid WNL Last Impressions Chest X-Ray 09/22/17 1625 Signed Impressions: Service Date/Time: August 16:41 - CONCLUSION: New airspace infiltrate in the left lung base Gumaro Correa MD CT Angiography 09/22/17 0000 Signed Impressions: Service Date/Time: August 18:03 - CONCLUSION: 1. No pulmonary. 2. Dense consolidation in the left lower lobe area this could be related to inflammatory/infectious process. 3. Persistent adenopathy throughout the mediastinum in the left hilum. This is nonspecific. Reactive, inflammatory change versus neoplasm can have this appearance. A left hilar mass could have a similar appearance. One could further evaluate a patient with PET FDG study as an outpatient. 4. Widespread very prominent emphysematous change. 5. Suspected scarring in the right upper lung. Gumaro Schuster MD Differential Diagnosis pneumonia vs sepsis vs SOB vs cancer pain vs dehydration Narrative Course 62-year-old male that presents to the ED for evaluation of neck pain as well as possible pneumonia. Patient was probably examined and was found to have signs and symptoms concerning for infectious etiology. Pain appears to be chronic and likely from the cancer. Patient was given IV fluids as well as IV pain medications. Labs and imaging were ordered. CT angiogram was ordered secondary to patient having cancer and shortness of breath. Labs and imaging came positive for sepsis as well as what appears to be possible metastasis of the cancer into the chest. Patient was started on IV antibiotics. Fluids started. This was discussed with my attending who agrees to admission. Patient will be admitted to Dr. Lantigua who agreed to admission. Diagnosis Primary Impression: Pneumonia Qualified Codes: J18.1 - Lobar pneumonia, unspecified organism Additional Impressions: Sepsis Qualified Codes: A41.9 - Sepsis, unspecified organism Leukocytosis Qualified Codes: D72.825 - Bandemia Admitting Information Admitting Physician Requests: Admit Nadeem Wallace Sep 22, 2017 19:18
--- NOTE | 2017-09-22 19:35 | HHI.HP ---
HPI Service [facility] Primary Care Physician [facility] Admission Diagnosis acute pneumonia, sepsis, throat cancer pt Diagnoses: (1) Sepsis Diagnosis: Principal (2) PNA (pneumonia) Diagnosis: Principal (3) Hypoxia Diagnosis: Principal (4) Lung mass Diagnosis: Principal (5) Head and neck cancer Diagnosis: Principal (6) COPD (chronic obstructive pulmonary disease) Diagnosis: Principal (7) DM (diabetes mellitus) Diagnosis: Principal (8) Tobacco abuse Diagnosis: Principal Travel History International Travel<30 Days: No Contact w/Intl Traveler <30 Da: No Traveled to Known Affected Are: No History of Present Illness This is a 62-year-old male with a PMH of HTN, Hyperlipidemia, DM, COPD, Tobacco Abuse and Head and Neck Cancer who presented to the ER with complaints of SOB, productive cough and facial pain x3 days. States pain is constant, severe, 10/ 10, non-radiating. Reports productive cough w/ green-colored sputum, no fever or chills. +SOB. Denies chest pain. Following w/ Dr. Garrison as outpatient, pending induction chemotherapy at this time. On arrival, BP 142/66, HR 108, O2 sat 86% on 6L NC, Afebrile. WBC 22.6. Chemistry essentially at baseline. INR 1.1. CXR with infiltrate left lung base. CTA Pulm negative for PE, dense consolidation left lower lobe, adenopathy throughout the mediastinum, left hilar mass, widespread prominent emphysematous change. S/p Rocephin/Zithro in ER. O2 sat currently 95% on 6L NC. Review of Systems Except as stated in HPI: all other systems reviewed are Neg ROS: 14 point review of systems otherwise negative. Past Family Social History Past Medical History PMH: HTN, Hyperlipidemia, DM, COPD, Tobacco Abuse and Head and Neck Cancer Past Surgical History PAST SURGICAL HISTORY: Back Surgery, Bowel Resection Allergies: Coded Allergies: penicillin G (Unverified Allergy, Severe, SWELLING, 09/22/17) has tolerated Cephalosporins in previous admissions *MDRO Multi-Drug Resistant Organism (Verified Adverse Reaction, Unknown, ) Hx MRSA Sputum 2006, Wounds 2003 MRSA PCR Screen negative 11/25/14 & 09/10/15. Cleared per Infection Control. Patient does not require isolation for hx of MRSA prior to 09/10/15. Family History PAST FAMILY HISTORY: Reviewed. No h/o DM or CAD Social History PAST SOCIAL HISTORY: Negative for alcohol or drugs. Positive for tobacco. Physical Exam Vital Signs Vital Signs Date Time Temp Pulse Resp B/P (MAP) Pulse Ox O2 Delivery O2 Flow Rate FiO2 09/22/17 19:26 96 Nasal Cannula 6.00 09/22/17 19:01 112 28 62/61 (61) 87 Nasal Cannula 4.00 09/22/17 16:45 95 Nasal Cannula 6.00 09/22/17 16:35 108 39 123/85 (98) 86 Nasal Cannula 6.00 09/22/17 15:45 98.2 108 18 142/66 (91) 99 Physical Exam PE: GENERAL: Middle-aged white male in mild distress due to SOB. Productive cough HEENT: PERRLA, EOMI. No scleral icterus or conjunctival pallor. No lid lag or facial droop. CARDIOVASCULAR: Regular rate and rhythm. No obvious murmurs to auscultation. No chest tenderness to palpation. RESPIRATORY: Coarse breath sounds bilaterally. No wheezing. Breath sounds equal bilaterally. GASTROINTESTINAL: Abdomen soft, non-tender, nondistended. BS normal. MUSCULOSKELETAL: Extremities without clubbing, cyanosis, or edema. No obvious deformities. NEUROLOGICAL: Awake, alert and oriented x4. No focal neurologic deficits. Moving both upper and lower extremities spontaneously. Laboratory Laboratory Tests Test 09/22/17 16:40 White Blood Count 22.6 Red Blood Count 4.86 Hemoglobin 13.9 Hematocrit 41.6 Mean Corpuscular Volume 85.6 Mean Corpuscular Hemoglobin 28.5 Mean Corpuscular Hemoglobin Concent 33.3 Red Cell Distribution Width 14.0 Platelet Count 446 Mean Platelet Volume 7.8 Neutrophils (%) (Auto) 75.6 Lymphocytes (%) (Auto) 8.7 Monocytes (%) (Auto) 14.8 Eosinophils (%) (Auto) 0.5 Basophils (%) (Auto) 0.4 Neutrophils # (Auto) 17.1 Lymphocytes # (Auto) 2.0 Monocytes # (Auto) 3.3 Eosinophils # (Auto) 0.1 Basophils # (Auto) 0.1 CBC Comment AUTO DIFF Differential Total Cells Counted 100 Neutrophils % (Manual) 79 Lymphocytes % 9 Monocytes % 11 Eosinophils % 1 Neutrophils # (Manual) 17.9 Differential Comment FINAL DIFF MANUAL Platelet Estimate NORMAL Platelet Morphology Comment NORMAL Prothrombin Time 11.0 Prothromb Time International Ratio 1.1 Activated Partial Thromboplast Time 25.2 Blood Urea Nitrogen 11 Creatinine 0.56 Random Glucose 191 Total Protein 7.4 Albumin 2.9 Calcium Level 8.7 Magnesium Level 1.8 Alkaline Phosphatase 135 Aspartate Amino Transf (AST/SGOT) 58 Alanine Aminotransferase (ALT/SGPT) 32 Total Bilirubin 0.5 Sodium Level 132 Potassium Level 3.7 Chloride Level 96 Carbon Dioxide Level 26.7 Anion Gap 9 Estimat Glomerular Filtration Rate 149 Lactic Acid Level 1.3 Lipase 42 Date/Time Source Procedure Growth Status 09/22/17 16:45 Blood Peripheral Aerobic Blood Culture Pending Received 09/22/17 16:45 Blood Peripheral Anaerobic Blood Culture Pending Received Result Diagram: 09/22/17 [facility] 09/22/17 [facility] Caprini VTE Risk Assessment Caprini VTE Risk Assessment: No/Low Risk (score <= 1) Caprini Risk Assessment Model Point Value = 1 Point Value = 2 Point Value = 3 Point Value = 5 Age 41-60 Minor surgery BMI > 25 kg/m2 Swollen legs Varicose veins or History of unexplained or recurrent spontaneous Oral contraceptives or hormone replacement Sepsis (< 1 month) Serious lung disease, including pneumonia (< 1 month) Abnormal pulmonary function Acute myocardial infarction Congestive heart failure (< 1 month) History of inflammatory bowel disease Medical patient at bed rest Age 61-74 Arthroscopic surgery Major open surgery (> 45 min) Laparoscopic surgery (> 45 min) Malignancy Confined to bed (> 72 hours) Immobilizing plaster cast Central venous access Age >= 75 History of VTE Family history of VTE Factor V Leiden Prothrombin [id number] Lupus anticoagulant Anticardiolipin antibodies Elevated serum homocysteine Heparin-induced thrombocytopenia Other congenital or acquired thrombophilia Stroke (< 1 month) Elective arthroplasty Hip, pelvis, or leg fracture Acute spinal cord injury (< 1 month) Prophylaxis Regimen Total Risk Factor Score Risk Level Prophylaxis Regimen 0-1 Low Early ambulation 2 Moderate Order ONE of the following: *Sequential Compression Device (SCD) *Heparin 5000 units SQ BID 3-4 Higher Order ONE of the following medications: *Heparin 5000 units SQ TID *Enoxaparin/Lovenox 40 mg SQ daily (WT < 150 kg, CrCl > 30 mL/min) *Enoxaparin/Lovenox 30 mg SQ daily (WT < 150 kg, CrCl > 10-29 mL/min) *Enoxaparin/Lovenox 30 mg SQ BID (WT < 150 kg, CrCl > 30 mL/min) AND/OR *Sequential Compression Device (SCD) 5 or more Highest Order ONE of the following medications: *Heparin 5000 units SQ TID (Preferred with Epidurals) *Enoxaparin/Lovenox 40 mg SQ daily (WT < 150 kg, CrCl > 30 mL/min) *Enoxaparin/Lovenox 30 mg SQ daily (WT < 150 kg, CrCl > 10-29 mL/min) *Enoxaparin/Lovenox 30 mg SQ BID (WT < 150 kg, CrCl > 30 mL/min) AND *Sequential Compression Device (SCD) Assessment and Plan Problem List: (1) Sepsis ICD Code: A41.9 - Sepsis Status: Resolved (2) PNA (pneumonia) ICD Code: J18.9 - Pneumonia, unspecified organism (3) Hypoxia ICD Code: R09.02 - Hypoxemia (4) COPD (chronic obstructive pulmonary disease) ICD Code: J44.9 - Chronic obstructive pulmonary disease, unspecified (5) Lung mass ICD Code: R91.8 - Other nonspecific abnormal finding of lung field (6) Head and neck cancer ICD Code: C76.0 - Malignant neoplasm of head, face and neck (7) DM (diabetes mellitus) ICD Code: E11.9 - Type 2 diabetes mellitus without complications (8) Tobacco abuse ICD Code: Z72.0 - Tobacco use Assessment and Plan A/P: 1. Sepsis: HR 108, WBC 22, Source-PNA. S/p Blood Cultures, Rocephin/Zithro, follow up cultures, continue w/ broad spectrum antibiotics, Vanc/Cefepime 2. PNA: CXR w/ LLL infiltrate, CTA Pulm negative for PE, +LLL infiltrate, images reviewed by me. Continue w/ Vanc/Cefepime. DuoNeb prn. Check Sputum Cultures. 3. Hypoxia: O2 sat 86% on 6L NC on arrival, currently 91% on 6L NC w/ increased work of breathing. Check STAT ABG, DuoNeb. Monitor O2. 4. Full Code: Discussed Code Status at length w/ patient, discussed need for possible intubation in light of pt's respiratory status, pt DOES want resuscitation and intubation if needed. 5. COPD: Chronic Respiratory Failure w/ Acute Exacerbation. Severe. Hold Solu-Medrol in light of underlying CA and PNA. DuoNeb, Symbicort, Mucinex. Monitor O2. 6. Head and Neck CA: Follows w/ Dr. Garrison, recent diagnosis, pending induction chemo. Will consult for further recommendations. 7. Lung Mass: CTA w/ left hilar mass, pt reports previously known right lung mass. Had outpatient PET Scan. Will consult Dr. Garrison as above. Will likely need Pulm for Bronch/Biopsy. 8. DM: Sliding scale with Accu-Cheks. Hold Glipizide for now. 9. Tobacco Abuse: NicoDerm prn 10. DVT Prophylaxis: SCD/Teds 11. Social work for DC planning as needed. 12. Case discussed at length with the ER physician, lab/record/imaging reviewed by me. Physician Certification 2 Midnight Certification Type: Admission for Inpatient Services Order for Inpatient Services The services are ordered in accordance with Medicare regulations or non- Medicare payer requirements, as applicable. In the case of services not specified as inpatient-only, they are appropriately provided as inpatient services in accordance with the 2-midnight benchmark. Estimated LOS (days): 2 days is the estimated time the patient will need to remain in the hospital, assuming treatment plan goals are met and no additional complications. Post-Hospital Plan: Not yet determined Problem Qualifiers (1) Sepsis: Qualified Codes: A41.9 - Sepsis, unspecified organism Ena Lantigua MD Sep 22, 2017 19:35
[2017-09-22] MEDS ORDERED: DEXTROSE 50% IN WATER 50 ML VIAL(D50) IV PUSH PRN (19:45)
[2017-09-22] MEDS ORDERED: Vancomycin Consult Pharmacy 1 EA OTHER SCH (19:45)
[2017-09-22] MEDS ORDERED: BISACODYL 10 MG SUPP RECTAL PRN (19:45)
[2017-09-22] MEDS ORDERED: MAGNESIUM HYDROXIDE SUSP 30 ML CUP PO PRN (19:45)
[2017-09-22] MEDS ORDERED: SENNOSIDES 8.6 MG TAB PO PRN (19:45)
[2017-09-22] MEDS ORDERED: ACETAMINOPHEN 325 MG TAB PO PRN (19:45)
[2017-09-22] MEDS ORDERED: SODIUM CHLORIDE 0.9% FLUSH 10 ML FLUSH IV FLUSH PRN (19:45)
[2017-09-22] MEDS ORDERED: RESP: ALBUTEROL 2.5 MG/IPRATROPIUM 0.5 MG NEB (PRN) NEB (19:45)
[2017-09-22] MEDS ORDERED: LACTULOSE SYRUP 20 GM/30 ML CUP PO PRN (19:45)
[2017-09-22] MEDS ORDERED: ACETAMINOPHEN/HYDROcodone 325 MG/5 MG TAB PO PRN (19:45)
[2017-09-22] MEDS ORDERED: ONDANSETRON HCL 4 MG/2 ML VIAL IVP PRN (19:45)
[2017-09-22] MEDS ORDERED: GLUCAGON 1 MG/ML VIAL OTHER PRN (19:45)
[2017-09-22 20:05] LABS: BACTERIA, URINE RARE /hpf; BILIRUBIN, URINE NEG (NEG); BLOOD, URINE MOD (NEG); GLUCOSE,URINE NEG (NEG); KETONE, URINE NEG (NEG); NITRITE,URINE NEG (NEG); SQUAMOUS EPITHELIAL CELL URINE <1 /hpf (0-5); URINE COLOR YELLOW (YELLW/STRAW); URINE LEUKOCYTE ESTERASE NEG (NEG)
[2017-09-22] MEDS ORDERED: MISCELLANEOUS NURSING INFORMATION XX SCH (20:15)
[2017-09-22] MEDS ORDERED: CHLORHEXIDINE GLUCONATE 2 % 1 PACK (2 CLOTHS) TOP PRN (20:15)
[2017-09-22] MEDS: SODIUM CHLOR 0.9% 1000 ML INJ 1,000 ML IV SCH (20:23)
[2017-09-22] MEDS: INSULIN ASPART SUPPLEMENTAL SCALE SQ SCH (21:00)
--- NOTE | 2017-09-22 21:06 | PD.CONS ---
HPI Service Critical Care Medicine Consult Requested By Primary Care Physician [facility] History of Present Illness 62-year-old male with past medical history significant of hypertension, Hyperlipidemia, DM, COPD, Tobacco Abuse and Head and Neck Cancer who presented with complaints of SOB, productive cough and facial pain x3 days. States pain is constant, severe, 10/10, non-radiating. Reports productive cough w/ green- colored sputum, no fever or chills. +SOB. Denies chest pain. Following w/ Dr. Garrison as outpatient, pending induction chemotherapy at this time. On arrival, BP 142/66, HR 108, O2 sat 86% on 6L NC, Afebrile. WBC 22.6. Chemistry essentially at baseline. INR 1.1. CXR with infiltrate left lung base. CTA Pulm negative for pulmonary embolism, however shows the dense consolidation in the left lower lobe, adenopathy throughout the mediastinum, left hilar mass, widespread prominent emphysematous change. Review of Systems ROS Unobtainable patient in respiratory distress on facemask BiPAP Past Family Social History Allergies: Coded Allergies: penicillin G (Unverified Allergy, Severe, SWELLING, 09/22/17) has tolerated Cephalosporins in previous admissions *MDRO Multi-Drug Resistant Organism (Verified Adverse Reaction, Unknown, ) Hx MRSA Sputum 2006, Wounds 2003 MRSA PCR Screen negative 11/25/14 & 09/10/15. Cleared per Infection Control. Patient does not require isolation for hx of MRSA prior to 09/10/15. Past Medical History HTN, Hyperlipidemia, DM, COPD, Tobacco Abuse Head and Neck Cancer Past Surgical History Back Surgery, Bowel Resection Reported Medications Reported Meds & Active Scripts Active Oxycodone (Oxycodone HCl) 5 Mg Tab 5 Mg PO Q4H PRN Lisinopril 5 Mg Tab 5 Mg PO DAILY Pravachol (Pravastatin) 40 Mg Tab 40 Mg PO HS Reported Aspirin 81 Mg Chew 81 Mg CHEW DAILY Glipizide 10 Mg Tab 10 Mg PO DAILY Take 30 minutes before a meal Omeprazole Unknown Strength Tab 10 Mg PO DAILY Active Ordered Medications Current Medications Medications (Trade) Dose Ordered Sig/Alfred Route PRN Reason Start Time Stop Time Status Last Admin Dose Admin Dextrose (D50w (Vial) Inj) 50 ml UNSCH PRN IV PUSH HYPOGLYCEMIA-SEE COMMENTS 09/22/17 19:45 Glucagon (Glucagon Inj) 1 mg UNSCH PRN OTHER HYPOGLYCEMIA-SEE COMMENTS 09/22/17 19:45 Insulin Aspart (NovoLOG SUPPLEMENTAL SCALE) 1 ACHS SLIDING SCALE SQ 09/22/17 21:00 Pharmacy Profile Note 0 ml @ 0 mls/hr UNSCH OTHER 09/22/17 19:45 Albuterol/ Ipratropium (Duoneb Neb) 1 ampule Q4HR NEB PRN NEB SOB/WHEEZING 09/22/17 19:45 09/22/17 20:03 Budesonide/ Formoterol Fumarate (Symbicort 160-4.5 Mcg Inh) 2 puff Q12HR INH 09/22/17 21:00 Guaifenesin (Mucinex Er) 600 mg BID PO 09/22/17 21:00 Cefepime HCl 1000 mg/Sodium Chloride 100 ml @ 200 mls/hr Q12H IV 09/23/17 09:00 Sodium Chloride 1,000 ml @ 100 mls/hr Q10H IV 09/22/17 19:31 09/22/17 20:23 Sodium Chloride (NS Flush) 2 ml UNSCH PRN IV FLUSH FLUSH AFTER USING IV ACCESS 09/22/17 19:45 Sodium Chloride (NS Flush) 2 ml BID IV FLUSH 09/22/17 21:00 Ondansetron HCl (Zofran Inj) 4 mg Q6H PRN IVP NAUSEA OR VOMITING 09/22/17 19:45 Acetaminophen (Tylenol) 650 mg Q6H PRN PO FEVER/PAIN SCALE 1 TO 2 09/22/17 19:45 Acetaminophen/ Hydrocodone Bitart ([place] 5-325 Mg) 1 tab Q4H PRN PO PAIN SCALE 3 TO 5 09/22/17 19:45 Morphine Sulfate (Morphine Inj) 2 mg Q3H PRN IV PUSH Pain 6-10 09/22/17 19:45 Senna/Docusate Sodium (Bing-Colace) 1 tab BID PO 09/22/17 21:00 Magnesium Hydroxide (Milk Of Magnesia Liq) 30 ml Q12H PRN PO Mild constipation 09/22/17 19:45 Sennosides (Senokot) 17.2 mg Q12H PRN PO Moderate constipation 09/22/17 19:45 Bisacodyl (Dulcolax Supp) 10 mg DAILY PRN RECTAL SEVERE CONSITIPATION 09/22/17 19:45 Lactulose (Lactulose Liq) 30 ml DAILY PRN PO SEVERE CONSITIPATION 09/22/17 19:45 Aspirin (Aspirin Chew) 81 mg DAILY CHEW 09/23/17 09:00 Pravastatin Sodium (Pravachol) 40 mg HS PO 09/22/17 21:00 Vancomycin HCl 1400 mg/Sodium Chloride 514 ml @ 250 mls/hr ONCE ONCE IV 09/22/17 22:00 09/23/17 00:03 Miscellaneous Information 1 Q361D XX 09/22/17 20:15 Chlorhexidine Gluconate (Chlorhexidine 2% Cloth) 3 pack Taper DAILY@04 TOP 09/23/17 04:00 09/19/18 03:59 Chlorhexidine Gluconate (Chlorhexidine 2% Cloth) 3 pack UNSCH PRN TOP HYGIENIC CARE 09/22/17 20:15 Family History No family history of diabetes mellitus or coronary artery disease Social History Negative for alcohol or drugs. Positive for tobacco. Physical Exam Vital Signs Vital Signs Date Time Temp Pulse Resp B/P (MAP) Pulse Ox O2 Delivery O2 Flow Rate FiO2 09/22/17 20:57 110 28 107/67 (80) 93 Non-Rebreather 09/22/17 20:32 92 Non-Rebreather 15.00 09/22/17 19:47 95 Nasal Cannula 5.00 09/22/17 19:26 96 Nasal Cannula 6.00 09/22/17 19:01 112 28 62/61 (61) 87 Nasal Cannula 4.00 09/22/17 16:45 95 Nasal Cannula 6.00 09/22/17 16:35 108 39 123/85 (98) 86 Nasal Cannula 6.00 09/22/17 15:45 98.2 108 18 142/66 (91) 99 Physical Exam GENERAL: Well-nourished, well-developed patient. In moderate respiratory distress on facemask BiPAP SKIN: Warm and dry. HEAD: Normocephalic. EYES: No scleral icterus. No injection or drainage. NECK: Supple, trachea midline. No JVD or lymphadenopathy. CARDIOVASCULAR: Regular rate and rhythm without murmurs, gallops, or rubs. RESPIRATORY: Breath sounds equal bilaterally. No accessory muscle use. GASTROINTESTINAL: Abdomen soft, non-tender, nondistended. MUSCULOSKELETAL: No cyanosis, or edema. BACK: Nontender without obvious deformity. NEURO EXAM: GCS: 15 Mental Status: The patient is alert and oriented to person, place, and time with normal speech. Cranial Nerves: Visual acuity intact bilaterally. Visual rothman normal in all quadrants. Pupils are round, reactive to light. Motor: Good muscle tone. Strength is 5/5 bilaterally. Laboratory Laboratory Tests Test 09/22/17 16:40 09/22/17 19:25 09/22/17 19:59 White Blood Count 22.6 Red Blood Count 4.86 Hemoglobin 13.9 Hematocrit 41.6 Mean Corpuscular Volume 85.6 Mean Corpuscular Hemoglobin 28.5 Mean Corpuscular Hemoglobin Concent 33.3 Red Cell Distribution Width 14.0 Platelet Count 446 Mean Platelet Volume 7.8 Neutrophils (%) (Auto) 75.6 Lymphocytes (%) (Auto) 8.7 Monocytes (%) (Auto) 14.8 Eosinophils (%) (Auto) 0.5 Basophils (%) (Auto) 0.4 Neutrophils # (Auto) 17.1 Lymphocytes # (Auto) 2.0 Monocytes # (Auto) 3.3 Eosinophils # (Auto) 0.1 Basophils # (Auto) 0.1 CBC Comment AUTO DIFF Differential Total Cells Counted 100 Neutrophils % (Manual) 79 Lymphocytes % 9 Monocytes % 11 Eosinophils % 1 Neutrophils # (Manual) 17.9 Differential Comment FINAL DIFF MANUAL Platelet Estimate NORMAL Platelet Morphology Comment NORMAL Prothrombin Time 11.0 Prothromb Time International Ratio 1.1 Activated Partial Thromboplast Time 25.2 Blood Urea Nitrogen 11 Creatinine 0.56 Random Glucose 191 Total Protein 7.4 Albumin 2.9 Calcium Level 8.7 Magnesium Level 1.8 Alkaline Phosphatase 135 Aspartate Amino Transf (AST/SGOT) 58 Alanine Aminotransferase (ALT/SGPT) 32 Total Bilirubin 0.5 Sodium Level 132 Potassium Level 3.7 Chloride Level 96 Carbon Dioxide Level 26.7 Anion Gap 9 Estimat Glomerular Filtration Rate 149 Lactic Acid Level 1.3 Lipase 42 Urine Color YELLOW Urine Turbidity CLEAR Urine pH 6.0 Urine Specific [place] 1.050 Urine Protein 30 Urine Glucose (UA) NEG Urine Ketones NEG Urine Occult Blood MOD Urine Nitrite NEG Urine Bilirubin NEG Urine Urobilinogen LESS THAN 2.0 Urine Leukocyte Esterase NEG Urine RBC 1 Urine WBC 1 Urine Squamous Epithelial Cells <1 Urine Bacteria RARE Microscopic Urinalysis Comment CULT NOT INDICATED Blood Gas Puncture Site RT RADIAL Blood Gas Patient Temperature 98.6 Blood Gas HCO3 24 Blood Gas Base Excess -2.4 Blood Gas Oxygen Saturation 85 Arterial Blood pH 7.25 Arterial Blood Partial Pressure CO2 56 Arterial Blood Partial Pressure O2 64 Arterial Blood Oxygen Content 16.6 Arterial Blood Carboxyhemoglobin 2.2 Arterial Blood Methemoglobin 1.0 Blood Gas Hemoglobin 13.9 Oxygen Delivery Device NASAL CANNULA Blood Gas Liter Flow 5 Date/Time Source Procedure Growth Status 09/22/17 16:45 Blood Peripheral Aerobic Blood Culture Pending Received 09/22/17 16:45 Blood Peripheral Anaerobic Blood Culture Pending Received Result Diagram: 09/22/17 1640 09/22/17 1640 Imaging Last 24 hours Impressions Chest X-Ray 09/22/17 1625 Signed Impressions: Service Date/Time: August 16:41 - CONCLUSION: New airspace infiltrate in the left lung base Gumaro Correa MD CT Angiography 09/22/17 0000 Signed Impressions: Service Date/Time: August 18:03 - CONCLUSION: 1. No pulmonary. 2. Dense consolidation in the left lower lobe area this could be related to inflammatory/infectious process. 3. Persistent adenopathy throughout the mediastinum in the left hilum. This is nonspecific. Reactive, inflammatory change versus neoplasm can have this appearance. A left hilar mass could have a similar appearance. One could further evaluate a patient with PET FDG study as an outpatient. 4. Widespread very prominent emphysematous change. 5. Suspected scarring in the right upper lung. Gumaro Schuster MD Septic Shock Reassessment Septic shock perfusion: reassessment completed Assessment and Plan Assessment and Plan Respiratory failure -Underlying COPD -Tobacco use disorder -Empiric antibiotic -DuoNeb scheduled and as needed -IV steroid -Panculture -Urine antigen Pneumonia -Community-acquired -Vancomycin/cefepime -Follow-up cultures and de-escalate per sensitivity COPD exacerbation -IV steroid -DuoNeb scheduled and as needed Head and Neck cancer -follows w/ Dr. Garrison -Recently diagnosed -Induction chemotherapy pending -Medical oncology consulted Lung Mass -Healer mass per CT report -previously known right lung mass per patient report -Had outpatient PET Scan -Further workup and management per medical oncology Diabetes mellitus -Insulin sliding scale -Hold p.o. diabetic medications while n.p.o. and in the ICU Tobacco use disorder -Nicotine patch as needed DVT GI prophylaxis -SCD/Teds -Pepcid -Subcu heparin Critical Care: The total critical care time was 35 minutes. Time to perform other separately billable procedures was not included in the critical care time. Charles Murray MD Sep 22, 2017 9:06 pm
[2017-09-22] MEDS ORDERED: VANCOMYCIN INJ 1,400 MG in SODIUM CHLORID 0.9% 500 ML INJ 500 ML IV ONE (22:00)
[2017-09-22] MEDS: guaiFENesin E.R. 600 MG TAB PO SCH (22:09)
[2017-09-22] MEDS: DOCUSATE SODIUM 50 MG/SENNA 8.6 MG TAB PO SCH (22:09)
[2017-09-22] MEDS: BUDESONIDE-FORMOTEROL 160/4.5 MCG INHALER INH SCH (22:09)
[2017-09-22] MEDS: PRAVASTATIN SOD 40 MG TAB PO SCH (22:09)
[2017-09-22] MEDS: SODIUM CHLORIDE 0.9% FLUSH 10 ML FLUSH IV FLUSH SCH (22:10)
[2017-09-22] MEDS: RESP: ALBUTEROL 2.5 MG/IPRATROPIUM 0.5 MG NEB (SCH) NEB (23:26)
[2017-09-23] VITALS (15 sets, daily range): BP systolic 76–126; BP diastolic 46–70; PULSE 90–102; RESP 20–54; TEMP 97.6–98.7; O2SAT 87–97
[2017-09-23] MEDS: FAMOTIDINE 20 MG TAB PO SCH ×2 (00:06→11:59)
[2017-09-23] MEDS: methylPREDNISolone SOD SUCC 40 MG/1 ML VIAL IV PUSH SCH ×4 (00:07→17:41)
[2017-09-23] MEDS: MORPHINE SULFATE 2 MG/ML SYRINGE IV PUSH PRN ×4 (00:14→20:27)
[2017-09-23] MEDS: RESP: ALBUTEROL 2.5 MG/IPRATROPIUM 0.5 MG NEB (SCH) NEB ×5 (03:14→19:55)
[2017-09-23] MEDS: CHLORHEXIDINE GLUCONATE 2 % 1 PACK (2 CLOTHS) TOP SCH (04:00)
[2017-09-23] MEDS: HEPARIN SODIUM - SQ 10,000 UNITS/ML VIAL SQ SCH ×3 (05:00→21:37)
[2017-09-23] MEDS: SODIUM CHLOR 0.9% 1000 ML INJ 1,000 ML IV SCH ×2 (05:31→15:31)
[2017-09-23 05:52] LABS: AUTOMATED NEUTROPHIL # 20.2 TH/MM3 (1.8-7.7); BASOPHIL # 0.1 TH/MM3 (0-0.2); BASOPHIL % 0.3 % (0.0-2.0); HEMATOCRIT 40.9 % (39.0-51.0); HEMOGLOBIN 13.5 GM/DL (13.0-17.0); LYMPH % 2.6 % (9.0-44.0); LYMPHOCYTE # 0.6 TH/MM3 (1.0-4.8); MEAN CELL VOLUME 86.9 FL (80.0-100.0); MEAN CORPUSCULAR HEMOGLOBIN 28.7 PG (27.0-34.0); MEAN PLATELET VOLUME 8.2 FL (7.0-11.0); MONO % 3.5 % (0.0-8.0); MONOCYTE # 0.7 TH/MM3 (0-0.9); NEUT % 93.6 % (16.0-70.0); PLATELET COUNT 423 TH/MM3 (150-450); RED CELL DISTRIBUTION WIDTH 14.2 % (11.6-17.2); WHITE BLOOD COUNT 21.6 TH/MM3 (4.0-11.0)
[2017-09-23 06:08] LABS: ALBUMIN 2.5 GM/DL (3.4-5.0); AST (GOT) 57 U/L (15-37); BICARBONATE 24.8 MEQ/L (21.0-32.0); BLOOD UREA NITROGEN 10 MG/DL (7-18); CHLORIDE 100 MEQ/L (98-107); CREATININE 0.43 MG/DL (0.60-1.30); GLOMERULAR FILTRATION RATE 202 ML/MIN (>89); GLUCOSE,RANDOM 144 MG/DL (74-106); MAGNESIUM 1.8 MG/DL (1.5-2.5); SODIUM (NA) 136 MEQ/L (136-145)
[2017-09-23 06:09] LABS: ALT (GPT) 30 U/L (12-78); PHOSPHORUS 3.1 MG/DL (2.5-4.9)
[2017-09-23 06:11] LABS: ALKALINE PHOSPHATASE 123 U/L (45-117); TOTAL BILIRUBIN ADULT 0.5 MG/DL (0.2-1.0); TOTAL PROTEIN 6.7 GM/DL (6.4-8.2)
[2017-09-23] MEDS: INSULIN ASPART SUPPLEMENTAL SCALE SQ SCH ×4 (08:00→21:47)
[2017-09-23] MEDS: CEFEPIME INJ 1,000 MG in SODIUM CHLORIDE 0.9% INJ 100 ML IV SCH ×2 (08:48→21:36)
[2017-09-23] MEDS: SODIUM CHLORIDE 0.9% FLUSH 10 ML FLUSH IV FLUSH SCH ×2 (08:48→21:00)
[2017-09-23] MEDS: ASPIRIN 81 MG CHEW TAB CHEW SCH (08:48)
[2017-09-23] MEDS: guaiFENesin E.R. 600 MG TAB PO SCH ×2 (08:48→21:37)
[2017-09-23] MEDS: BUDESONIDE-FORMOTEROL 160/4.5 MCG INHALER INH SCH ×2 (08:49→21:36)
[2017-09-23] MEDS: DOCUSATE SODIUM 50 MG/SENNA 8.6 MG TAB PO SCH ×2 (08:51→21:37)
--- NOTE | 2017-09-23 11:03 | PD.ID.CON ---
History of Present Illness Service ID Consult Requested By Dr.Nimish Morales Reason for Consult Evaluation and Mment of Pneumonia in a patient with Oral cancer. Primary Care Physician [facility] Diagnoses: History of Present Illness Most of the history was by review of medical records. Patient is not forth coming of historical details. Mr. Garrison is a 62-year-old with a locally advanced head and neck cancer diagnosed in 07/13/2017. He has extension of disease reportedly into the base of his tongue and a lesion in oral part of tongue. He was last seen in oncology clinic 08/31/2017. Oncology clinic was coordinating care with Dr. German for concurrent chemotherapy and radiation for what seemed like a locally advanced head and neck cancer. Reportedly patient needed further evaluation by ENT and other MDs. He was supposed to have a Port and PEG placed but [place] has not approved these procedures although it appears chemotherapy regimen was approved. He presented to the ER with complaints of SOB, productive cough and facial pain x3 days. States pain is constant, severe, 10/10, non-radiating. Reports productive cough w/ green-colored sputum, no fever or chills. +SOB. Denies chest pain. Following w/ Dr. Garrison as outpatient, pending induction chemotherapy at this time. On arrival, BP 142/66, HR 108, O2 sat 86% on 6L NC, Afebrile. WBC 22.6. Chemistry essentially at baseline. INR 1.1. CXR with infiltrate left lung base. CTA Pulm negative for PE, dense consolidation left lower lobe, adenopathy throughout the mediastinum, left hilar mass, widespread prominent emphysematous change. S/p Rocephin/Zithro in ER. O2 sat currently 95 % on 6L NC. ID consulted for evaluation and Mment of Pneumonia in a patient with oral cancer. Review of Systems ROS Limitations: Poor Historian Past Family Social History Allergies: Coded Allergies: penicillin G (Unverified Allergy, Severe, SWELLING, 09/22/17) has tolerated Cephalosporins in previous admissions *MDRO Multi-Drug Resistant Organism (Verified Adverse Reaction, Unknown, ) Hx MRSA Sputum 2006, Wounds 2003 MRSA PCR Screen negative 11/25/14 & 09/10/15. Cleared per Infection Control. Patient does not require isolation for hx of MRSA prior to 3/16/16. Past Medical History HTN, Hyperlipidemia, DM, COPD, Tobacco Abuse Head and Neck Cancer Past Surgical History Back Surgery, Bowel Resection Reported Medications Reported Meds & Active Scripts Active Oxycodone (Oxycodone HCl) 5 Mg Tab 5 Mg PO Q4H PRN Lisinopril 5 Mg Tab 5 Mg PO DAILY Pravachol (Pravastatin) 40 Mg Tab 40 Mg PO HS Reported Aspirin 81 Mg Chew 81 Mg CHEW DAILY Glipizide 10 Mg Tab 10 Mg PO DAILY Take 30 minutes before a meal Omeprazole Unknown Strength Tab 10 Mg PO DAILY Active Ordered Medications Current Medications Medications (Trade) Dose Ordered Sig/Alfred Route Start Time Stop Time Status Last Admin (D50w (Vial) Inj) 50 ml UNSCH PRN IV PUSH 09/22/17 19:45 (Glucagon Inj) 1 mg UNSCH PRN OTHER 09/22/17 19:45 (NovoLOG SUPPLEMENTAL SCALE) 1 ACHS SLIDING SCALE SQ 09/22/17 21:00 09/23/17 12:00 Pharmacy Profile Note 0 ml @ 0 mls/hr UNSCH OTHER 09/22/17 19:45 (Duoneb Neb) 1 ampule Q4HR NEB PRN NEB 09/22/17 19:45 09/22/17 20:03 (Symbicort 160-4.5 Mcg Inh) 2 puff Q12HR INH 09/22/17 21:00 09/23/17 08:49 (Mucinex Er) 600 mg BID PO 09/22/17 21:00 09/23/17 08:48 Cefepime HCl 1000 mg/Sodium Chloride 100 ml @ 200 mls/hr Q12H IV 09/23/17 09:00 09/23/17 08:48 Sodium Chloride 1,000 ml @ 100 mls/hr Q10H IV 09/22/17 19:31 09/23/17 05:31 (NS Flush) 2 ml UNSCH PRN IV FLUSH 09/22/17 19:45 (NS Flush) 2 ml BID IV FLUSH 09/22/17 21:00 09/23/17 08:48 (Zofran Inj) 4 mg Q6H PRN IVP 09/22/17 19:45 (Tylenol) 650 mg Q6H PRN PO 09/22/17 19:45 ([place] 5-325 Mg) 1 tab Q4H PRN PO 09/22/17 19:45 (Morphine Inj) 2 mg Q3H PRN IV PUSH 09/22/17 19:45 09/23/17 11:58 (Bing-Colace) 1 tab BID PO 09/22/17 21:00 09/22/17 22:09 (Milk Of Magnesia Liq) 30 ml Q12H PRN PO 09/22/17 19:45 (Senokot) 17.2 mg Q12H PRN PO 09/22/17 19:45 (Dulcolax Supp) 10 mg DAILY PRN RECTAL 09/22/17 19:45 (Lactulose Liq) 30 ml DAILY PRN PO 09/22/17 19:45 (Aspirin Chew) 81 mg DAILY CHEW 09/23/17 09:00 09/23/17 08:48 (Pravachol) 40 mg HS PO 09/22/17 21:00 09/22/17 22:09 Miscellaneous Information 1 Q361D XX 09/22/17 20:15 (Chlorhexidine 2% Cloth) 3 pack Taper DAILY@04 TOP 09/23/17 04:00 09/19/18 03:59 (Chlorhexidine 2% Cloth) 3 pack UNSCH PRN TOP 09/22/17 20:15 (SoluMEDROL INJ) 40 mg Q6HR IV PUSH 09/23/17 00:00 09/23/17 11:59 (Heparin Inj) 5,000 units Q8HR SQ 09/23/17 06:00 09/23/17 13:48 (Pepcid) 20 mg Q12H PO 09/23/17 00:00 09/23/17 11:59 (Duoneb Neb) 1 ampule Q4HR NEB NEB 09/23/17 00:00 09/23/17 15:27 Vancomycin HCl 1250 mg/Sodium Chloride 262.5 ml @ 250 mls/hr Q12H IV 09/23/17 10:00 09/23/17 11:57 Miscellaneous Information SPECIFIC LAB TO BE DRAWN:VANCOMYCIN TROUGH DATE TO... ONCE ONCE .XX 09/24/17 09:45 09/24/17 09:46 Family History reviewed and NC to current ID problems Social History Tobacco use details could not be obtained. No alcohol No illicit drugs. Physical Exam Vital Signs Vital Signs Date Time Temp Pulse Resp B/P (MAP) Pulse Ox O2 Delivery O2 Flow Rate FiO2 09/23/17 08:00 95 09/23/17 08:00 98.5 93 22 107/70 (82) 89 09/23/17 07:35 91 Non-Rebreather 15.00 09/23/17 06:00 90 09/23/17 05:03 19 09/23/17 04:00 100 09/23/17 03:34 98.7 102 28 87 09/23/17 02:00 99 09/23/17 00:00 99 25 76/46 (56) 94 09/23/17 00:00 99 09/22/17 22:57 09/22/17 22:08 76 28 90/53 (65) 95 Non-Rebreather 15.00 09/22/17 20:57 110 28 107/67 (80) 93 Non-Rebreather 09/22/17 20:32 92 Non-Rebreather 15.00 09/22/17 19:47 95 Nasal Cannula 5.00 09/22/17 19:26 96 Nasal Cannula 6.00 09/22/17 19:01 112 28 62/61 (61) 87 Nasal Cannula 4.00 09/22/17 16:45 95 Nasal Cannula 6.00 09/22/17 16:35 108 39 123/85 (98) 86 Nasal Cannula 6.00 09/22/17 15:45 98.2 108 18 142/66 (91) 99 Physical Exam GENERAL: This is a well-nourished, well-developed patient, in no apparent distress. SKIN: No rashes, ecchymoses or lesions. Cool and dry. Right side face swelling. Not cooperative with oral exam. HEAD: Atraumatic. Normocephalic. No temporal or scalp tenderness. EYES: Pupils equal round and reactive. Extraocular motions intact. No scleral icterus. No injection or drainage. ENT: Nose without bleeding, purulent drainage or septal hematoma. Throat without erythema, tonsillar hypertrophy or exudate. Uvula midline. Airway patent. NECK: Trachea midline. Supple, nontender, no meningeal signs. CARDIOVASCULAR: Hs audible. RESPIRATORY: Clear to auscultation. Breath sounds equal bilaterally. No wheezes , rales, or rhonchi. GASTROINTESTINAL: Abdomen soft, non-tender, nondistended. MUSCULOSKELETAL: Extremities without clubbing, cyanosis, or edema. No joint tenderness, effusion, or edema noted. No calf tenderness. Negative Homans sign bilaterally. NEUROLOGICAL: Awake and alert. Non focal Psych not very cooperative IV line sites with no e/o infection Laboratory Laboratory Tests Test 09/22/17 16:40 09/22/17 19:25 09/22/17 19:59 09/22/17 23:00 White Blood Count 22.6 Red Blood Count 4.86 Hemoglobin 13.9 Hematocrit 41.6 Mean Corpuscular Volume 85.6 Mean Corpuscular Hemoglobin 28.5 Mean Corpuscular Hemoglobin Concent 33.3 Red Cell Distribution Width 14.0 Platelet Count 446 Mean Platelet Volume 7.8 Neutrophils (%) (Auto) 75.6 Lymphocytes (%) (Auto) 8.7 Monocytes (%) (Auto) 14.8 Eosinophils (%) (Auto) 0.5 Basophils (%) (Auto) 0.4 Neutrophils # (Auto) 17.1 Lymphocytes # (Auto) 2.0 Monocytes # (Auto) 3.3 Eosinophils # (Auto) 0.1 Basophils # (Auto) 0.1 CBC Comment AUTO DIFF Differential Total Cells Counted 100 Neutrophils % (Manual) 79 Lymphocytes % 9 Monocytes % 11 Eosinophils % 1 Neutrophils # (Manual) 17.9 Differential Comment FINAL DIFF MANUAL Platelet Estimate NORMAL Platelet Morphology Comment NORMAL Prothrombin Time 11.0 Prothromb Time International Ratio 1.1 Activated Partial Thromboplast Time 25.2 Blood Urea Nitrogen 11 Creatinine 0.56 Random Glucose 191 Total Protein 7.4 Albumin 2.9 Calcium Level 8.7 Magnesium Level 1.8 Alkaline Phosphatase 135 Aspartate Amino Transf (AST/SGOT) 58 Alanine Aminotransferase (ALT/SGPT) 32 Total Bilirubin 0.5 Sodium Level 132 Potassium Level 3.7 Chloride Level 96 Carbon Dioxide Level 26.7 Anion Gap 9 Estimat Glomerular Filtration Rate 149 Lactic Acid Level 1.3 Lipase 42 Urine Color YELLOW Urine Turbidity CLEAR Urine pH 6.0 Urine Specific [place] 1.050 Urine Protein 30 Urine Glucose (UA) NEG Urine Ketones NEG Urine Occult Blood MOD Urine Nitrite NEG Urine Bilirubin NEG Urine Urobilinogen LESS THAN 2.0 Urine Leukocyte Esterase NEG Urine RBC 1 Urine WBC 1 Urine Squamous Epithelial Cells <1 Urine Bacteria RARE Microscopic Urinalysis Comment CULT NOT INDICATED Blood Gas Puncture Site RT RADIAL Blood Gas Patient Temperature 98.6 Blood Gas HCO3 24 Blood Gas Base Excess -2.4 Blood Gas Oxygen Saturation 85 Arterial Blood pH 7.25 Arterial Blood Partial Pressure CO2 56 Arterial Blood Partial Pressure O2 64 Arterial Blood Oxygen Content 16.6 Arterial Blood Carboxyhemoglobin 2.2 Arterial Blood Methemoglobin 1.0 Blood Gas Hemoglobin 13.9 Oxygen Delivery Device NASAL CANNULA Blood Gas Liter Flow 5 Nasal Screen MRSA (PCR) MRSA NOT DETECTED Test 09/23/17 03:48 09/23/17 05:14 White Blood Count 21.6 Red Blood Count 4.70 Hemoglobin 13.5 Hematocrit 40.9 Mean Corpuscular Volume 86.9 Mean Corpuscular Hemoglobin 28.7 Mean Corpuscular Hemoglobin Concent 33.0 Red Cell Distribution Width 14.2 Platelet Count 423 Mean Platelet Volume 8.2 Neutrophils (%) (Auto) 93.6 Lymphocytes (%) (Auto) 2.6 Monocytes (%) (Auto) 3.5 Eosinophils (%) (Auto) 0.0 Basophils (%) (Auto) 0.3 Neutrophils # (Auto) 20.2 Lymphocytes # (Auto) 0.6 Monocytes # (Auto) 0.7 Eosinophils # (Auto) 0.0 Basophils # (Auto) 0.1 CBC Comment DIFF FINAL Differential Comment Blood Urea Nitrogen 10 Creatinine 0.43 Random Glucose 144 Total Protein 6.7 Albumin 2.5 Calcium Level 8.0 Phosphorus Level 3.1 Magnesium Level 1.8 Alkaline Phosphatase 123 Aspartate Amino Transf (AST/SGOT) 57 Alanine Aminotransferase (ALT/SGPT) 30 Total Bilirubin 0.5 Sodium Level 136 Potassium Level 3.9 Chloride Level 100 Carbon Dioxide Level 24.8 Anion Gap 11 Estimat Glomerular Filtration Rate 202 Blood Gas Puncture Site RT RADIAL Blood Gas Patient Temperature 98.6 Blood Gas HCO3 24 Blood Gas Base Excess -1.4 Blood Gas Oxygen Saturation 93 Arterial Blood pH 7.30 Arterial Blood Partial Pressure CO2 51 Arterial Blood Partial Pressure O2 86 Arterial Blood Oxygen Content 16.8 Arterial Blood Carboxyhemoglobin 1.0 Arterial Blood Methemoglobin 1.6 Blood Gas Hemoglobin 12.8 Oxygen Delivery Device NRB Blood Gas Inspired Oxygen 100 Date/Time Source Procedure Growth Status 09/22/17 16:45 Blood Peripheral Aerobic Blood Culture Pending Received 09/22/17 16:45 Blood Peripheral Anaerobic Blood Culture Pending Received 09/22/17 22:12 Sputum Expectorated Sputum Gram Stain - Final Resulted 09/22/17 22:12 Sputum Expectorated Sputum Sputum Culture Pending Resulted 09/22/17 19:25 Urine Catheterized Urine Legionella Antigen - Final PRESUMPTIVE NEGATIVE FOR LEGIONELLA P... Complete 09/22/17 19:25 Urine Catheterized Urine Streptococcus pneumoniae Antigen (M - Final PRESUMPTIVE NEGATIVE FOR STREPTOCOCCU... Complete Result Diagram: 09/23/17 0348 09/23/17 0348 Imaging Last Impressions Chest X-Ray 09/22/17 1625 Signed Impressions: Service Date/Time: August 16:41 - CONCLUSION: New airspace infiltrate in the left lung base Gumaro Correa MD CT Angiography 09/22/17 0000 Signed Impressions: Service Date/Time: August 18:03 - CONCLUSION: 1. No pulmonary. 2. Dense consolidation in the left lower lobe area this could be related to inflammatory/infectious process. 3. Persistent adenopathy throughout the mediastinum in the left hilum. This is nonspecific. Reactive, inflammatory change versus neoplasm can have this appearance. A left hilar mass could have a similar appearance. One could further evaluate a patient with PET FDG study as an outpatient. 4. Widespread very prominent emphysematous change. 5. Suspected scarring in the right upper lung. Gumaro Schuster MD Assessment and Plan Assessment and Plan Pneumonia in a patient with head neck cancer Pneumonia ? aspiration ? Community acquired. Head neck cancer Penicillin allergy Recs: Continue Cefepime IV Continue Vanco IV (target 15-20) Follow cultures Follow clinically. Follow CXR Follow sputum cultures to cover for me this weekend. Pushpa Morales MD Sep 23, 2017 11:03
--- NOTE | 2017-09-23 11:06 | EKG ---
Date Performed: 09/22/2017 Time Performed: 17:28:14 PTAGE: 62 years EKG: SINUS TACHYCARDIA RIGHT BUNDLE BRANCH BLOCK ABNORMAL ECG PREVIOUS TRACING : 07/11/2017 09.47 Compared to the prior study, the rate is faster. Right bund le branch block is now present. DOCTOR: Manjeet Szymanski Interpretating Date/Time 09/23/2017 11:05:06
--- NOTE | 2017-09-23 11:39 | MB ---
cc: Stephanie Garrison MD,Solomon Veloz MD DATE: 09/23/2017 REFERRING PHYSICIAN: Dr. Solomon Morales. CHIEF COMPLAINT: Dr. Morales requested consultation for Mr. Garrison regarding newly diagnosed head and neck cancer. HISTORY OF PRESENT ILLNESS: Mr. Garrison is a 62-year-old man initially seen in consultation 07/13/2017 with a locally advanced head and neck cancer. He has extension of disease to the base of tongue and a lesion in the oral tongue. He was last seen in oncology clinic 08/31/2017. We were coordinating care with Dr. German for concurrent chemotherapy and radiation for what seemed like a locally advanced head and neck cancer. As of his visit, he has not had a port placed. The PEG tube is still not approved from the [place]. His chemotherapy was approved; however, he needed ENT evaluation to rule out an abscess in the oral lesion. He also has a questionable lung lesion that needed a biopsy to rule out a second primary. These referrals to the ENT and shirt folding machine operator have not been approved yet by the [place]. We offered admission to the hospital to coordinate the above since there has already been a delay in treatment of Mr. Garrison. Sydnie at the [facility] denied the admission. They are working to get things done as an outpatient. That was the last time that Mr. Garrison was seen in oncology clinic. He was approved for carboplatin and Taxol. However, it is not clear whether the treatment was induction for a locally advanced head and neck cancer versus metastatic disease given the known lung lesions. CT scan of the chest from 07/11/2017 showed some mild enlarged lymph node in the AP mediastinum. There is apical pleural thickening and scarring. Mr. Garrison came into the emergency room. He was very short and angry. He reports that he came in merely because he has a pneumonia. He has an appointment with [facility] on 09/28/2016. It is not clear if this is for ENT or Pulmonary or Oncology. He merely states that he is going to make that appointment no matter what. He was uncooperative with the review of systems. He states that he does not know anything. He did not want to make decisions or consider our treatment options here. On admission, he was noted to have an elevated white count of 21,000. He has AST elevation. CT scan of the chest, no pulmonary embolism; however, there is dense consolidation in the left lower lobe. There is persistent adenopathy throughout the mediastinum and the left hilum. There is widespread emphysematous changes. There is scarring in the upper lung. He is admitted in the ICU under the care of Dr. Murray. He is receiving respiratory therapy. He is struggling with his nasal cannula. Hematology/Oncology is consulted to consider the treatment for his head and neck cancer. PAST MEDICAL HISTORY: COPD, diabetes type 2, hypercholesterolemia, hypertension, previous history of pneumonia, locally advanced head and neck cancer, large hilar adenopathy, new pneumonia, leukocytosis. PAST SURGICAL HISTORY: Bowel resection, colonoscopy, laparotomy, lysis of adhesion, pilonidal cyst surgery, stent placement, laryngoscopy with biopsy of the right tonsil. ALLERGIES: PENICILLIN. CURRENT MEDICATIONS: 1. Vancomycin. 2. Cefepime. 3. Aspirin. 4. Unfractionated heparin. 5. Solu-Medrol. 6. Pepcid. 7. DuoNebs. 8. Symbicort. 9. Mucinex 10. Pravachol. FAMILY HISTORY: Father is alive in his 90s. Mother of unknown cause. No other family history of cancer. SOCIAL HISTORY: He lives in an apartment with friends. He is an active smoker. He has no plans on quitting. He has over 60-[id number] smoking history. Denies any alcohol or illicit drug use. PHYSICAL EXAMINATION: VITAL SIGNS: Temperature 98.5, heart rate 93, respiratory rate 22, blood pressure 107/70, saturation 89%.. GENERAL: Mr. Garrison is slender, cachectic, chronically ill-appearing, man. He is unshaven. He is angry and argumentative. HEENT: His pupils are round, reactive to light and accommodation. Oropharynx is dry. There is a oral tongue lesion on the right. Limited evaluation. NECK: Supple. LUNGS: Clear anteriorly. CARDIOVASCULAR: Reveals mild tachycardia. ABDOMEN: Soft, benign. MUSCULOSKELETAL: Lower extremities with no edema. SKIN: No lesions. LABORATORY DATA: As described above. Leukocytosis. Albumin is decreased to 2.5. PT, PTT are normal. ASSESSMENT AND PLAN: Mr. Garrison is a 62-year-old man with multiple medical problems described above. He has incomplete workup for a locally advanced head and neck cancer. It is not clear whether he has metastatic disease already or second primary in the lung. He has mediastinal and hilar adenopathy, which is concerning. We discussed options; however, he was not receptive to this. He merely states that he wants to go, keep his appointment at [facility]. At this point, I will return to discuss treatment for his head and neck cancer when he is more receptive. I will defer to the senior cytogenetic technologist and shirt folding machine operator for treatment of his pneumonia. He is intent and steadfast in stating that he is going to go to his appointment in [facility] in [place]. This was coordinated by his [facility]. He is not willing to make any decision or discussion right now. He will need a biopsy of the mediastinal lesion and a hilar lesion to determine whether this is reactive or metastatic disease. The case is discussed with Dr. German. We have been working with the [facility] and our progress has been fraught by difficulty in coordinating the care, evaluation and prior authorization issues. MD OLIVIA Mehta/HUI , 10:58 AM , 11:37 AM
[2017-09-23] MEDS: VANCOMYCIN INJ 1,250 MG in SODIUM CHLOR 0.9% 250 ML INJ 250 ML IV SCH ×2 (11:57→22:16)
--- NOTE | 2017-09-23 17:07 | HHI.CCPN ---
Subjective Remarks/Hospital Course 09/22: 62-year-old male with past medical history significant of hypertension, Hyperlipidemia, DM, COPD, Tobacco Abuse and Head and Neck Cancer who presented with complaints of SOB, productive cough and facial pain x3 days. States pain is constant, severe, 10/10, non-radiating. Reports productive cough w/ green- colored sputum, no fever or chills. +SOB. Denies chest pain. Following w/ Dr. Garrison as outpatient, pending induction chemotherapy at this time. On arrival, BP 142/66, HR 108, O2 sat 86% on 6L NC, Afebrile. WBC 22.6. Chemistry essentially at baseline. INR 1.1. CXR with infiltrate left lung base. CTA Pulm negative for pulmonary embolism, however shows the dense consolidation in the left lower lobe, adenopathy throughout the mediastinum, left hilar mass, widespread prominent emphysematous change. 09/23: Resting in bed on partial rebreather facemask. Not in any acute distress. Feels that his breathing has improved somewhat since admission. Objective Vital Signs Date Time Temp Pulse Resp B/P (MAP) Pulse Ox O2 Delivery O2 Flow Rate FiO2 09/23/17 14:00 99 09/23/17 12:03 12 09/23/17 12:00 98.2 106/58 (74) 97 09/23/17 07:35 Non-Rebreather 15.00 Intake and Output 09/23/17 09/23/17 09/24/17 08:00 16:00 00:00 Intake Total 530 ml Output Total 500 ml Balance 30 ml Result Diagram: 09/23/17 0348 09/23/17 0348 Other Results Microbiology Date/Time Source Procedure Growth Status 09/22/17 22:12 Nasal Washing Influenza Types A,B Antigen (EDWIN) - Final NEGATIVE FOR FLU A AND B ANTIGEN.... Complete 09/22/17 19:25 Urine Catheterized Urine Legionella Antigen - Final PRESUMPTIVE NEGATIVE FOR LEGIONELLA P... Complete 09/22/17 19:25 Urine Catheterized Urine Streptococcus pneumoniae Antigen (M - Final PRESUMPTIVE NEGATIVE FOR STREPTOCOCCU... Complete Laboratory Tests Test 09/22/17 19:59 09/23/17 05:14 Blood Gas Puncture Site RT RADIAL RT RADIAL Blood Gas Patient Temperature 98.6 98.6 Blood Gas HCO3 24 mmol/L (22-26) 24 mmol/L (22-26) Blood Gas Base Excess -2.4 mmol/L (-2-2) -1.4 mmol/L (-2-2) Blood Gas Oxygen Saturation 85 % (90-100) 93 % (90-100) Arterial Blood pH 7.25 (7.380-7.420) 7.30 (7.380-7.420) Arterial Blood Partial Pressure CO2 56 mmHg (38-42) 51 mmHg (38-42) Arterial Blood Partial Pressure O2 64 mmHG (61-120) 86 mmHg (61-120) Arterial Blood Oxygen Content 16.6 Vol % (12.0-20.0) 16.8 Vol % (12.0-20.0) Arterial Blood Carboxyhemoglobin 2.2 % (0-4) 1.0 % (0-4) Arterial Blood Methemoglobin 1.0 % (0-2) 1.6 % (0-2) Blood Gas Hemoglobin 13.9 G/DL (12.0-16.0) 12.8 G/DL (12.0-16.0) Oxygen Delivery Device NASAL CANNULA NRB Blood Gas Liter Flow 5 L/M Blood Gas Inspired Oxygen 100 % Imaging Last 24 hours Impressions Chest X-Ray 09/22/17 1625 Signed Impressions: Service Date/Time: August 16:41 - CONCLUSION: New airspace infiltrate in the left lung base Gumaro Correa MD CT Angiography 09/22/17 0000 Signed Impressions: Service Date/Time: August 18:03 - CONCLUSION: 1. No pulmonary. 2. Dense consolidation in the left lower lobe area this could be related to inflammatory/infectious process. 3. Persistent adenopathy throughout the mediastinum in the left hilum. This is nonspecific. Reactive, inflammatory change versus neoplasm can have this appearance. A left hilar mass could have a similar appearance. One could further evaluate a patient with PET FDG study as an outpatient. 4. Widespread very prominent emphysematous change. 5. Suspected scarring in the right upper lung. Gumaro Schuster MD Objective Remarks GENERAL: Well-nourished, well-developed patient. On partial rebreather facemask O2 SKIN: Warm and dry. HEAD: Normocephalic. EYES: No scleral icterus. No injection or drainage. NECK: Supple, trachea midline. No JVD or lymphadenopathy. CARDIOVASCULAR: Regular rate and rhythm without murmurs, gallops, or rubs. RESPIRATORY: Breath sounds equal bilaterally. No accessory muscle use. Scattered rhonchi bilaterally, no wheezing GASTROINTESTINAL: Abdomen soft, non-tender, nondistended. MUSCULOSKELETAL: No cyanosis, or edema. BACK: Nontender without obvious deformity. NEURO EXAM: Awake alert oriented 3, grossly nonfocal A/P Assessment and Plan Acute respiratory failure -Underlying COPD -Tobacco use disorder -Empiric antibiotic -DuoNeb scheduled and as needed -IV steroid -BiPAP as needed, supplemental O2 -Panculture -Urine antigen Pneumonia Sepsis -Vancomycin/cefepime. ID consulted to assist with antibiotic management. -Follow-up cultures and de-escalate per sensitivity COPD exacerbation -IV steroid -DuoNeb scheduled and as needed Head and Neck cancer -Evaluated by Dr. Garrison -Recently diagnosed -Induction chemotherapy pending -Noted Dr. Hui is consult regarding patient wanting to pursue treatment at [facility]. Lung Mass -Hilar mass per CT report -previously known right lung mass per patient report -Had outpatient PET Scan -Further workup and management per medical oncology -Pulmonary consult request for further evaluation Diabetes mellitus -Insulin sliding scale -Hold p.o. diabetic medications while n.p.o. and in the ICU Tobacco use disorder -Nicotine patch as needed DVT GI prophylaxis -SCD/Teds -Pepcid -Subcu heparin Solomon Morales MD Sep 23, 2017 17:07
--- NOTE | 2017-09-23 20:10 | MB ---
cc: Kalyn Mccain MD DATE: 09/23/2017 REASON FOR CONSULTATION: Pneumonia. HISTORY OF PRESENT ILLNESS: Mr. Kishor Garrison is a 62-year-old male followed at the [facility] for head and neck cancer. Plans for chemotherapy were underway. The patient, however, presents to the emergency room with a dense infiltrate left lower lung. The previous CT scan of the chest had revealed evidence of a significant mediastinal adenopathy. The patient has a long heavy smoking history about 2 packs a day for over 40 years. He is without hemoptysis, TB or previous industrial exposure. PAST MEDICAL HISTORY: That of COPD, head and neck cancer as above, diabetes mellitus, hyperlipidemia, hypertension, had a pneumonia in the past, depressed, previous bowel resection, apparently for benign disease. Previous coronary artery stent placement. MEDICATIONS: Include vancomycin, cefepime, aspirin, Pepcid, Solu-Medrol, Symbicort, p.r.n. nebulized bronchodilator therapy, Mucinex, Pravachol. ALLERGIES: PENICILLIN. FAMILY HISTORY: Noncontributory. SYSTEMS REVIEW: A 12-point review of systems as per HPI and past history, otherwise negative. SOCIAL HISTORY: Smoked 2 packs a day for over 40 years, stopped in the last month or so. Tells me he stopped a month or so, however, according to his records, he is an active smoker, does not drink any alcohol, does not use drugs. PHYSICAL EXAMINATION: GENERAL: The patient is alert. VITAL SIGNS: Temperature 98, pulse 90, respirations 20, blood pressure 110/70, oxygen saturation 92% on oxygen therapy. HEENT: Unremarkable. NECK: A big mass, right side of the neck noted. CHEST: Decreased breath sounds right base. CARDIAC: PMI distant. S1, S2 audible. No murmur, no rub. ABDOMEN: Lax, bowel sounds audible. EXTREMITIES: No clubbing, cyanosis or edema. LABORATORY DATA: White count 21,000, hemoglobin 13, hematocrit 40, platelets 423,000. INR 1.1. Sodium 136, potassium 3.9, BUN 10, creatinine 0.4. Arterial blood gas on 100% oxygen, pH 7.30, pCO2 of 51, pO2 86. The pO2 was 64 on 5 liters oxygen with a pCO2 of 56. IMAGING: A CT angiogram of the chest without evidence of pulmonary emboli. Left lower lobe pneumonia, adenopathy throughout the mediastinum and left hilum. Question left hilar mass. IMPRESSION: 1. Pneumonia. 2. Head and neck cancer. 3. Chronic obstructive pulmonary disease, apparently of severe degree. 4. Hypoxic hypercarbic respiratory failure. 5. Question lung cancer. PLAN: Patient to continue oxygen therapy as needed. Antibiotic therapy has been initiated and appropriately so. Bronchodilators will be continued as well as steroids. Obviously, the patient cannot receive chemotherapy or radiation therapy at this point. Pneumonia needs to clear first to see what the residual will remain in the left lung and the left hilum. Will follow his course along with you and, depending on progress proceed further. I do thank you for asking me to partake in Mr. Garrison's care. Kalyn Mccain MD WWW/rt , 07:29 PM , 08:09 PM
[2017-09-23] MEDS: PRAVASTATIN SOD 40 MG TAB PO SCH (21:37)
[2017-09-24] VITALS (19 sets, daily range): BP systolic 99–153; BP diastolic 55–74; PULSE 76–94; RESP 22–38; TEMP 96.9–98.6; O2SAT 90–98
[2017-09-24] MEDS: MORPHINE SULFATE 2 MG/ML SYRINGE IV PUSH PRN ×5 (00:29→20:20)
[2017-09-24] MEDS: SODIUM CHLOR 0.9% 1000 ML INJ 1,000 ML IV SCH ×3 (01:55→23:35)
[2017-09-24] MEDS: FAMOTIDINE 20 MG TAB PO SCH ×3 (01:59→23:36)
[2017-09-24] MEDS: methylPREDNISolone SOD SUCC 40 MG/1 ML VIAL IV PUSH SCH ×5 (01:59→23:34)
[2017-09-24 03:33] LABS: AUTOMATED NEUTROPHIL # 15.1 TH/MM3 (1.8-7.7); BASOPHIL % 0.2 % (0.0-2.0); HEMOGLOBIN 12.3 GM/DL (13.0-17.0); LYMPH % 7.8 % (9.0-44.0); LYMPHOCYTE # 1.4 TH/MM3 (1.0-4.8); MEAN CELL VOLUME 85.8 FL (80.0-100.0); MEAN CORPUSCULAR HEMOGLOBIN 28.6 PG (27.0-34.0); MEAN CORPUSCULAR HGB CONC 33.3 % (32.0-36.0); MEAN PLATELET VOLUME 7.6 FL (7.0-11.0); MONO % 6.3 % (0.0-8.0); MONOCYTE # 1.1 TH/MM3 (0-0.9); NEUT % 85.7 % (16.0-70.0); PLATELET COUNT 382 TH/MM3 (150-450); RED BLOOD COUNT 4.31 MIL/MM3 (4.50-5.90); RED CELL DISTRIBUTION WIDTH 14.2 % (11.6-17.2); WHITE BLOOD COUNT 17.6 TH/MM3 (4.0-11.0)
[2017-09-24 03:56] LABS: ALT (GPT) 37 U/L (12-78); AST (GOT) 84 U/L (15-37); BICARBONATE 25.8 MEQ/L (21.0-32.0); BLOOD UREA NITROGEN 13 MG/DL (7-18); CALCIUM 7.8 MG/DL (8.5-10.1); CHLORIDE 103 MEQ/L (98-107); CREATININE 0.33 MG/DL (0.60-1.30); GLOMERULAR FILTRATION RATE 274 ML/MIN (>89); GLUCOSE,RANDOM 208 MG/DL (74-106); SODIUM (NA) 135 MEQ/L (136-145)
[2017-09-24 03:58] LABS: ALKALINE PHOSPHATASE 81 U/L (45-117); TOTAL BILIRUBIN ADULT 0.2 MG/DL (0.2-1.0); TOTAL PROTEIN 5.5 GM/DL (6.4-8.2)
[2017-09-24] MEDS: RESP: ALBUTEROL 2.5 MG/IPRATROPIUM 0.5 MG NEB (SCH) NEB ×6 (04:00→19:41)
[2017-09-24] MEDS: CHLORHEXIDINE GLUCONATE 2 % 1 PACK (2 CLOTHS) TOP SCH (04:00)
[2017-09-24] MEDS: HEPARIN SODIUM - SQ 10,000 UNITS/ML VIAL SQ SCH ×3 (04:57→22:00)
--- NOTE | 2017-09-24 05:59 | RADRPT ---
EXAM DATE/TIME: 09/24/2017 04:34 [facility] COMPARISON: CHEST SINGLE AP, September 22, 2017, 16:41. INDICATIONS : Shortness of breath, possible pneumothorax. MEDICAL HISTORY : Chronic obstructive pulmonary disease. Cardiovascular disease. Diabetes mellitus type II. SURGICAL HISTORY : None. ENCOUNTER: Subsequent ACUITY: 3 days PAIN SCORE: Non-responsive. LOCATION: Bilateral chest FINDINGS: A single view of the chest and a straight bibasal infiltrates right greater the left. The right infil trate is new from the previous study. There is a right-sided pleural effusion. Heart and mediastinum are unremarkable. I don't see any visible pneumothorax.. Osseous structures are intact. CONCLUSION: New worsening consolidation in the right lower lobe with a pleural effusion. Stable infiltrate left l sara base. Varinder Lynch MD on September 24, 2017 at 5:57 Board Certified Radiologist. This report was verified electronically.
[2017-09-24] MEDS: INSULIN ASPART SUPPLEMENTAL SCALE SQ SCH ×4 (08:00→21:00)
[2017-09-24] MEDS: SODIUM CHLORIDE 0.9% FLUSH 10 ML FLUSH IV FLUSH SCH ×2 (09:00→20:19)
[2017-09-24] MEDS: ASPIRIN 81 MG CHEW TAB CHEW SCH (09:32)
[2017-09-24] MEDS: guaiFENesin E.R. 600 MG TAB PO SCH ×2 (09:32→20:19)
[2017-09-24] MEDS: CEFEPIME INJ 1,000 MG in SODIUM CHLORIDE 0.9% INJ 100 ML IV SCH ×2 (09:32→21:27)
[2017-09-24] MEDS: DOCUSATE SODIUM 50 MG/SENNA 8.6 MG TAB PO SCH ×2 (09:32→20:19)
[2017-09-24] MEDS: BUDESONIDE-FORMOTEROL 160/4.5 MCG INHALER INH SCH ×2 (09:33→20:17)
[2017-09-24] MEDS ORDERED: PHARMACY ORDERED LAB ONE (09:45)
--- NOTE | 2017-09-24 10:09 | PD.ONC.PN ---
Subjective Subjective Remarks Afebrile overnight. Patient resting in bed in nad. States he feels better and plans to leave the hospital on Tuesday to get to his appointment at [facility]. Objective Data Date Time Temp Pulse Resp B/P (MAP) Pulse Ox O2 Delivery O2 Flow Rate FiO2 09/24/17 08:52 96 Non-Rebreather 09/24/17 06:00 79 09/24/17 04:00 76 09/24/17 04:00 96.9 76 24 99/55 (70) 98 09/24/17 02:00 87 09/24/17 00:00 86 09/24/17 00:00 97.6 86 22 106/56 (73) 97 09/23/17 22:00 90 09/23/17 20:00 93 09/23/17 20:00 97.6 93 54 115/58 (77) 91 09/23/17 19:56 94 Non-Rebreather 09/23/17 18:00 101 09/23/17 16:00 98.4 101 20 126/58 (80) 97 09/23/17 16:00 96 09/23/17 14:00 99 09/23/17 12:03 12 09/23/17 12:00 98.2 96 20 106/58 (74) 97 09/23/17 12:00 96 09/23/17 10:00 95 09/24/17 09/24/17 09/24/17 07:00 15:00 23:00 Intake Total 1500 ml Output Total 600 ml Balance 900 ml Result Diagram: 09/24/1731209/24/17312 Laboratory Results Laboratory Tests Test 09/24/17 03:13 White Blood Count 17.6 TH/MM3 Red Blood Count 4.31 MIL/MM3 Hemoglobin 12.3 GM/DL Hematocrit 37.0 % Mean Corpuscular Volume 85.8 FL Mean Corpuscular Hemoglobin 28.6 PG Mean Corpuscular Hemoglobin Concent 33.3 % Red Cell Distribution Width 14.2 % Platelet Count 382 TH/MM3 Mean Platelet Volume 7.6 FL Neutrophils (%) (Auto) 85.7 % Lymphocytes (%) (Auto) 7.8 % Monocytes (%) (Auto) 6.3 % Eosinophils (%) (Auto) 0.0 % Basophils (%) (Auto) 0.2 % Neutrophils # (Auto) 15.1 TH/MM3 Lymphocytes # (Auto) 1.4 TH/MM3 Monocytes # (Auto) 1.1 TH/MM3 Eosinophils # (Auto) 0.0 TH/MM3 Basophils # (Auto) 0.0 TH/MM3 CBC Comment DIFF FINAL Differential Comment Blood Urea Nitrogen 13 MG/DL Creatinine 0.33 MG/DL Random Glucose 208 MG/DL Total Protein 5.5 GM/DL Albumin 2.0 GM/DL Calcium Level 7.8 MG/DL Alkaline Phosphatase 81 U/L Aspartate Amino Transf (AST/SGOT) 84 U/L Alanine Aminotransferase (ALT/SGPT) 37 U/L Total Bilirubin 0.2 MG/DL Sodium Level 135 MEQ/L Potassium Level 4.3 MEQ/L Chloride Level 103 MEQ/L Carbon Dioxide Level 25.8 MEQ/L Anion Gap 6 MEQ/L Estimat Glomerular Filtration Rate 274 ML/MIN Culture Results Microbiology Date/Time Source Procedure Growth Status 09/22/17 16:45 Blood Peripheral Aerobic Blood Culture - Preliminary NO GROWTH IN 1 DAY Resulted 09/22/17 16:45 Blood Peripheral Anaerobic Blood Culture - Preliminary NO GROWTH IN 1 DAY Resulted 09/22/17 16:45 Blood Peripheral Aerobic Blood Culture - Preliminary NO GROWTH IN 1 DAY Resulted 09/22/17 16:45 Anaerobic Blood Culture - Preliminary Gram Positive Cocci Resulted 09/22/17 22:12 Sputum Expectorated Sputum Gram Stain - Final Resulted 09/22/17 22:12 Sputum Expectorated Sputum Sputum Culture - Preliminary IMMATURE GROWTH - REINCUBATE Resulted 09/22/17 22:12 Nasal Washing Influenza Types A,B Antigen (EDWIN) - Final NEGATIVE FOR FLU A AND B ANTIGEN.... Complete 09/22/17 19:25 Urine Catheterized Urine Legionella Antigen - Final PRESUMPTIVE NEGATIVE FOR LEGIONELLA P... Complete 09/22/17 19:25 Urine Catheterized Urine Streptococcus pneumoniae Antigen (M - Final PRESUMPTIVE NEGATIVE FOR STREPTOCOCCU... Complete Imaging Studies Last Impressions Chest X-Ray 09/24/17 0600 Signed Impressions: Service Date/Time: Sunday, September 24, 2017 04:34 - CONCLUSION: New worsening consolidation in the right lower lobe with a pleural effusion. Stable infiltrate left lung base. Varinder Lynch MD CT Angiography 09/22/17 0000 Signed Impressions: Service Date/Time: August 18:03 - CONCLUSION: 1. No pulmonary. 2. Dense consolidation in the left lower lobe area this could be related to inflammatory/infectious process. 3. Persistent adenopathy throughout the mediastinum in the left hilum. This is nonspecific. Reactive, inflammatory change versus neoplasm can have this appearance. A left hilar mass could have a similar appearance. One could further evaluate a patient with PET FDG study as an outpatient. 4. Widespread very prominent emphysematous change. 5. Suspected scarring in the right upper lung. Gumaro Schuster MD Administered Medications Medications (Trade) Dose Ordered Sig/Alfred Route PRN Reason Start Time Stop Time Status Last Admin Dose Admin Insulin Aspart (NovoLOG SUPPLEMENTAL SCALE) 1 ACHS SLIDING SCALE SQ 09/22/17 21:00 09/24/17 08:00 Albuterol/ Ipratropium (Duoneb Neb) 1 ampule Q4HR NEB PRN NEB SOB/WHEEZING 09/22/17 19:45 09/22/17 20:03 Budesonide/ Formoterol Fumarate (Symbicort 160-4.5 Mcg Inh) 2 puff Q12HR INH 09/22/17 21:00 09/24/17 09:33 Guaifenesin (Mucinex Er) 600 mg BID PO 09/22/17 21:00 09/24/17 09:32 Cefepime HCl 1000 mg/Sodium Chloride 100 ml @ 200 mls/hr Q12H IV 09/23/17 09:00 09/24/17 09:32 Sodium Chloride 1,000 ml @ 100 mls/hr Q10H IV 09/22/17 19:31 09/24/17 01:55 Sodium Chloride (NS Flush) 2 ml BID IV FLUSH 09/22/17 21:00 09/24/17 09:00 Morphine Sulfate (Morphine Inj) 2 mg Q3H PRN IV PUSH Pain 6-10 09/22/17 19:45 09/24/17 09:36 Senna/Docusate Sodium (Bing-Colace) 1 tab BID PO 09/22/17 21:00 09/24/17 09:32 Aspirin (Aspirin Chew) 81 mg DAILY CHEW 09/23/17 09:00 09/24/17 09:32 Pravastatin Sodium (Pravachol) 40 mg HS PO 09/22/17 21:00 09/23/17 21:37 Chlorhexidine Gluconate (Chlorhexidine 2% Cloth) 3 pack Taper DAILY@04 TOP 09/23/17 04:00 09/19/18 03:59 09/24/17 04:00 Methylprednisolone Sodium Succinate (SoluMEDROL INJ) 40 mg Q6HR IV PUSH 09/23/17 00:00 09/24/17 04:56 Heparin Sodium (Porcine) (Heparin Inj) 5,000 units Q8HR SQ 09/23/17 06:00 09/24/17 04:57 Famotidine (Pepcid) 20 mg Q12H PO 09/23/17 00:00 09/24/17 01:59 Albuterol/ Ipratropium (Duoneb Neb) 1 ampule Q4HR NEB NEB 09/23/17 00:00 09/24/17 08:10 Vancomycin HCl 1250 mg/Sodium Chloride 262.5 ml @ 250 mls/hr Q12H IV 09/23/17 10:00 09/23/17 22:16 Objective Remarks GENERAL: Middle aged male, sitting up in bed in [facility]. SKIN: Warm and dry. HEAD: Normocephalic. EYES: No injection or drainage. NECK: Supple, trachea midline. CARDIOVASCULAR: Regular rate and rhythm RESPIRATORY: diminished at bases, anterior rothman with occasional rhonchi. On O2 via NRB, when he takes the mask off, he saturations quickly drop into the 80s GASTROINTESTINAL: Abdomen soft, non-tender, nondistended. EXTREMITIES: No cyanosis NEUROLOGICAL: awake and alert. normal speech. moving all extremities. Assessment/Plan Assessment 62y/o male with head and neck cancer, admitted with dyspnea, pneumonia. h/o COPD, diabetes type 2, hypercholesterolemia, hypertension, previous history of pneumonia, locally advanced head and neck cancer, large hilar adenopathy, new pneumonia, leukocytosis. (from initial consult): initially seen in consultation 07/13/2017 with a locally advanced head and neck cancer. He has extension of disease to the base of tongue and a lesion in the oral tongue. He was last seen in oncology clinic 12/2017. We were coordinating care with Dr. German for concurrent chemotherapy and radiation for what seemed like a locally advanced head and neck cancer. As of his visit, he had not had a port placed. [facility] His chemotherapy was approved; however, he needed ENT evaluation to rule out an abscess in the oral lesion. He also has a questionable lung lesion that needs a biopsy to rule out a second primary. These referrals to the ENT and sprayer hand have not been approved yet by the [place]. has an appointment with [facility] on 09/28/2016. It is not clear if this is for ENT or Pulmonary or Oncology. He merely states that he is going to make that appointment no matter what. He will need a biopsy of the mediastinal lesion and a hilar lesion to determine whether this is reactive or metastatic disease. Plan 1. continue antibiotics per crusher setter/infectious disease 2. agree with DVT prophylaxis with heparin. 3. could consider CT guided lung biopsy next week if patient agreeable/remains inpatient. Attending Statement The exam, history, and the medical decision-making described in the above note were completed with the assistance of the mid-level provider. I reviewed and agree with the findings presented. I attest that I had a [id number] encounter with the patient on the same day, and personally performed and documented my assessment and findings in the medical record. SOB and cough improved. Sputum is now clearer. Reviewed CT scan. He appeared to have a pneumonia nd the mediastinal LN may be reactive. Continue treatment of pneumonia and monitor closely. Mai Leslie Sep 24, 2017 10:08 Fred De Leon MD Sep 24, 2017 12:41
[2017-09-24] MEDS: VANCOMYCIN INJ 1,250 MG in SODIUM CHLOR 0.9% 250 ML INJ 250 ML IV SCH (11:37)
--- NOTE | 2017-09-24 16:18 | HHI.CCPN ---
Subjective Remarks/Hospital Course 09/22: 62-year-old male with past medical history significant of hypertension, Hyperlipidemia, DM, COPD, Tobacco Abuse and Head and Neck Cancer who presented with complaints of SOB, productive cough and facial pain x3 days. States pain is constant, severe, 10/10, non-radiating. Reports productive cough w/ green- colored sputum, no fever or chills. +SOB. Denies chest pain. Following w/ Dr. Garrison as outpatient, pending induction chemotherapy at this time. On arrival, BP 142/66, HR 108, O2 sat 86% on 6L NC, Afebrile. WBC 22.6. Chemistry essentially at baseline. INR 1.1. CXR with infiltrate left lung base. CTA Pulm negative for pulmonary embolism, however shows the dense consolidation in the left lower lobe, adenopathy throughout the mediastinum, left hilar mass, widespread prominent emphysematous change. 09/23: Resting in bed on partial rebreather facemask. Not in any acute distress. Feels that his breathing has improved somewhat since admission. 09/24: Remains on partial rebreather facemask. Not in any acute distress. Objective Vital Signs Date Time Temp Pulse Resp B/P (MAP) Pulse Ox O2 Delivery O2 Flow Rate FiO2 09/24/17 12:00 92 09/24/17 12:00 97.9 24 126/60 (82) 95 09/24/17 08:52 Non-Rebreather 09/23/17 07:35 15.00 Intake and Output 09/24/17 09/24/17 09/25/17 08:00 16:00 00:00 Intake Total 1250 ml Output Total 600 ml Balance 650 ml Result Diagram: 09/24/17 0313 09/24/17 0313 Other Results Microbiology Date/Time Source Procedure Growth Status 09/22/17 22:12 Nasal Washing Influenza Types A,B Antigen (EDWIN) - Final NEGATIVE FOR FLU A AND B ANTIGEN.... Complete 09/22/17 19:25 Urine Catheterized Urine Legionella Antigen - Final PRESUMPTIVE NEGATIVE FOR LEGIONELLA P... Complete 09/22/17 19:25 Urine Catheterized Urine Streptococcus pneumoniae Antigen (M - Final PRESUMPTIVE NEGATIVE FOR STREPTOCOCCU... Complete Imaging Last 24 hours Impressions Chest X-Ray 09/22/17 7617 Signed Impressions: Service Date/Time: August 16:41 - CONCLUSION: New airspace infiltrate in the left lung base Gumaro Correa MD CT Angiography 09/22/17 0000 Signed Impressions: Service Date/Time: August 18:03 - CONCLUSION: 1. No pulmonary. 2. Dense consolidation in the left lower lobe area this could be related to inflammatory/infectious process. 3. Persistent adenopathy throughout the mediastinum in the left hilum. This is nonspecific. Reactive, inflammatory change versus neoplasm can have this appearance. A left hilar mass could have a similar appearance. One could further evaluate a patient with PET FDG study as an outpatient. 4. Widespread very prominent emphysematous change. 5. Suspected scarring in the right upper lung. Gumaro Schuster MD Objective Remarks GENERAL: Well-nourished, well-developed patient. On partial rebreather facemask O2 SKIN: Warm and dry. HEAD: Normocephalic. EYES: No scleral icterus. No injection or drainage. NECK: Supple, trachea midline. No JVD or lymphadenopathy. CARDIOVASCULAR: Regular rate and rhythm without murmurs, gallops, or rubs. RESPIRATORY: Breath sounds equal bilaterally. No accessory muscle use. Scattered rhonchi bilaterally, no wheezing GASTROINTESTINAL: Abdomen soft, non-tender, nondistended. MUSCULOSKELETAL: No cyanosis, or edema. BACK: Nontender without obvious deformity. NEURO EXAM: Awake alert oriented 3, grossly nonfocal A/P Assessment and Plan Acute respiratory failure -Underlying COPD -Tobacco use disorder -Empiric antibiotic -DuoNeb scheduled and as needed -IV steroid -BiPAP as needed, supplemental O2 -Panculture -Urine antigen Pneumonia Sepsis -Vancomycin/cefepime. ID consulted to assist with antibiotic management. -Follow-up cultures and de-escalate per sensitivity COPD exacerbation -IV steroid -DuoNeb scheduled and as needed Head and Neck cancer -Evaluated by Dr. Garrison -Recently diagnosed -Induction chemotherapy pending -Noted Dr. Hui is consult regarding patient wanting to pursue treatment at [facility]. Lung Mass -Hilar mass per CT report -previously known right lung mass per patient report -Had outpatient PET Scan -Further workup and management per medical oncology -Pulmonary consult requested for further evaluation Diabetes mellitus -Insulin sliding scale -Hold p.o. diabetic medications while n.p.o. and in the ICU Tobacco use disorder -Nicotine patch as needed DVT GI prophylaxis -SCD/Teds -Pepcid -Subcu heparin Solomon Morales MD Sep 24, 2017 16:18
--- NOTE | 2017-09-24 17:44 | HHI.PR ---
Subjective Remarks alert less SOB Objective Vital Signs Date Time Temp Pulse Resp B/P (MAP) Pulse Ox O2 Delivery O2 Flow Rate FiO2 09/24/17 17:00 91 38 153/74 (100) 90 09/24/17 16:00 90 09/24/17 16:00 98.4 90 24 129/63 (85) 95 09/24/17 15:00 86 09/24/17 14:00 91 09/24/17 12:00 92 09/24/17 12:00 97.9 92 24 126/60 (82) 95 09/24/17 11:00 92 09/24/17 10:00 94 09/24/17 10:00 94 22 123/57 (79) 92 09/24/17 09:00 87 24 126/60 (82) 94 09/24/17 09:00 87 09/24/17 08:52 96 Non-Rebreather 09/24/17 08:00 79 09/24/17 08:00 98.6 79 24 120/59 (79) 98 09/24/17 06:00 79 09/24/17 04:00 76 09/24/17 04:00 96.9 76 24 99/55 (70) 98 09/24/17 02:00 87 09/24/17 00:00 86 09/24/17 00:00 97.6 86 22 106/56 (73) 97 09/23/17 22:00 90 09/23/17 20:00 93 09/23/17 20:00 97.6 93 54 115/58 (77) 91 09/23/17 19:56 94 Non-Rebreather 09/23/17 18:00 101 I/O 09/23/17 09/23/17 09/23/17 09/24/17 09/24/17 09/24/17 07:00 15:00 23:00 07:00 15:00 23:00 Intake Total 530 ml 2119 ml 1500 ml 1075 ml 250 ml Output Total 500 ml 1100 ml 600 ml Balance 30 ml 1019 ml 900 ml 1075 ml 250 ml Intake Oral 16 ml 800 ml 250 ml IV Total 514 ml 1319 ml 1250 ml 1075 ml 250 ml Output Urine Total 500 ml 1100 ml 600 ml Stool Total 0 ml 0 ml # Voids 3 # Bowel Movements 0 Result Diagram: 3/3 09/24/17312 Objective Remarks GENERAL: SKIN: Warm and dry. HEAD: Atraumatic. Normocephalic. EYES: Pupils equal and round. No scleral icterus. No injection or drainage. ENT: No nasal bleeding or discharge. Mucous membranes pink and moist. NECK: Trachea midline. No JVD. CARDIOVASCULAR: Regular rate and rhythm. RESPIRATORY: No accessory muscle use. Clear to auscultation. Breath sounds equal bilaterally. GASTROINTESTINAL: Abdomen soft, non-tender, nondistended. Hepatic and splenic margins not palpable. MUSCULOSKELETAL: Extremities without clubbing, cyanosis, or edema. No obvious deformities. NEUROLOGICAL: Awake and alert. No obvious cranial nerve deficits. Motor grossly within normal limits. Five out of 5 muscle strength in the arms and legs. Normal speech. PSYCHIATRIC: Appropriate mood and affect; insight and judgment normal. Assessment and Plan Assessment and Plan IMPRESSION COPD HEAD AND NECK CA PNA PLAN O2 NEEDED ANTIBX BRONCHODILATOR THERAPY Kalyn Mccain MD Sep 24, 2017 17:44
[2017-09-24] MEDS ORDERED: HEPARIN SODIUM - SQ 10,000 UNITS/ML VIAL ONE (20:12)
[2017-09-24] MEDS: VANCOMYCIN 1,000 MG/NS 250 ML IV SCH ×2 (20:18)
[2017-09-24] MEDS: PRAVASTATIN SOD 40 MG TAB PO SCH (20:19)
[2017-09-25] VITALS (16 sets, daily range): BP systolic 125–166; BP diastolic 61–91; PULSE 71–93; RESP 17–29; TEMP 97.3–98.8; O2SAT 84–100
[2017-09-25] MEDS: RESP: ALBUTEROL 2.5 MG/IPRATROPIUM 0.5 MG NEB (SCH) NEB ×7 (01:03→23:24)
[2017-09-25] MEDS: MORPHINE SULFATE 2 MG/ML SYRINGE IV PUSH PRN ×7 (01:32→22:27)
--- NOTE | 2017-09-25 03:31 | RADRPT ---
EXAM DATE/TIME: 09/25/2017 02:57 [place] COMPARISON: CHEST SINGLE AP, September 24, 2017, 4:34. INDICATIONS : Shortness of breath, possible pulmonary disease. MEDICAL HISTORY : Chronic obstructive pulmonary disease. Cardiovascular disease. Diabetes mellitus type II. SURGICAL HISTORY : None. ENCOUNTER: Subsequent ACUITY: 4 - 6 days PAIN SCORE: Non-responsive. LOCATION: Bilateral chest FINDINGS: A single view of the chest demonstrates bilateral mostly basilar airspace disease. Small to moderate right pleural effusion. No pneumothorax. CONCLUSION: 1. Bilateral mostly basilar airspace disease and small right effusion, similar to September 24. Alphonso Castillo MD on September 25, 2017 at 3:29 Board Certified Radiologist. This report was verified electronically.
[2017-09-25] MEDS: CHLORHEXIDINE GLUCONATE 2 % 1 PACK (2 CLOTHS) TOP SCH (04:00)
[2017-09-25] MEDS: VANCOMYCIN 1,000 MG/NS 250 ML IV SCH ×6 (04:14→21:06)
[2017-09-25] MEDS: methylPREDNISolone SOD SUCC 40 MG/1 ML VIAL IV PUSH SCH ×3 (04:14→15:57)
[2017-09-25] MEDS: HEPARIN SODIUM - SQ 10,000 UNITS/ML VIAL SQ SCH ×3 (04:14→19:58)
[2017-09-25 06:01] LABS: AUTOMATED NEUTROPHIL # 11.1 TH/MM3 (1.8-7.7); BASOPHIL % 0.1 % (0.0-2.0); HEMATOCRIT 34.6 % (39.0-51.0); HEMOGLOBIN 11.5 GM/DL (13.0-17.0); LYMPH % 6.9 % (9.0-44.0); LYMPHOCYTE # 0.9 TH/MM3 (1.0-4.8); MEAN CELL VOLUME 85.6 FL (80.0-100.0); MEAN CORPUSCULAR HEMOGLOBIN 28.4 PG (27.0-34.0); MEAN CORPUSCULAR HGB CONC 33.2 % (32.0-36.0); MEAN PLATELET VOLUME 7.7 FL (7.0-11.0); MONO % 6.4 % (0.0-8.0); MONOCYTE # 0.8 TH/MM3 (0-0.9); NEUT % 86.6 % (16.0-70.0); PLATELET COUNT 347 TH/MM3 (150-450); RED BLOOD COUNT 4.05 MIL/MM3 (4.50-5.90); RED CELL DISTRIBUTION WIDTH 13.9 % (11.6-17.2); WHITE BLOOD COUNT 12.8 TH/MM3 (4.0-11.0)
[2017-09-25 06:38] LABS: ALBUMIN 1.7 GM/DL (3.4-5.0); BICARBONATE 23.6 MEQ/L (21.0-32.0); CALCIUM 6.6 MG/DL (8.5-10.1); CREATININE 0.24 MG/DL (0.60-1.30); TOTAL BILIRUBIN ADULT 0.2 MG/DL (0.2-1.0); TOTAL PROTEIN 4.4 GM/DL (6.4-8.2)
[2017-09-25] MEDS: SODIUM CHLOR 0.9% 1000 ML INJ 1,000 ML IV SCH ×2 (07:38→17:31)
[2017-09-25] MEDS: CEFEPIME INJ 1,000 MG in SODIUM CHLORIDE 0.9% INJ 100 ML IV SCH ×2 (07:39→19:58)
[2017-09-25] MEDS: BUDESONIDE-FORMOTEROL 160/4.5 MCG INHALER INH SCH ×2 (07:39→19:58)
[2017-09-25] MEDS: guaiFENesin E.R. 600 MG TAB PO SCH ×2 (07:39→19:57)
[2017-09-25] MEDS: SODIUM CHLORIDE 0.9% FLUSH 10 ML FLUSH IV FLUSH SCH ×2 (07:39→19:59)
[2017-09-25] MEDS: ASPIRIN 81 MG CHEW TAB CHEW SCH (07:39)
[2017-09-25] MEDS: INSULIN ASPART SUPPLEMENTAL SCALE SQ SCH ×4 (07:41→20:05)
[2017-09-25] MEDS: DOCUSATE SODIUM 50 MG/SENNA 8.6 MG TAB PO SCH ×2 (07:41→19:57)
[2017-09-25] MEDS ORDERED: ETOMIDATE 40 MG/20 ML VIAL ONE (07:52)
--- NOTE | 2017-09-25 08:22 | HHI.IDPN ---
Subjective Subjective Remarks Mr. Garrison is a 62-year-old with a locally advanced head and neck cancer diagnosed in 07/13/2017. He has extension of disease reportedly into the base of his tongue and a lesion in oral part of tongue. He was last seen in oncology clinic 08/31/2017. Oncology clinic was coordinating care with Dr. German for concurrent chemotherapy and radiation for what seemed like a locally advanced head and neck cancer. Reportedly patient needed further evaluation by ENT and other MDs. He was supposed to have a Port and PEG placed but CT has not approved these procedures although it appears chemotherapy regimen was approved. He presented to the ER with complaints of SOB, productive cough and facial pain x3 days. States pain is constant, severe, 10/10, non-radiating. Reports productive cough w/ green-colored sputum, no fever or chills. +SOB. Denies chest pain. Following w/ Dr. Garrison as outpatient, pending induction chemotherapy at this time. On arrival, BP 142/66, HR 108, O2 sat 86% on 6L NC, Afebrile. WBC 22.6. Chemistry essentially at baseline. INR 1.1. CXR with infiltrate left lung base. CTA Pulm negative for PE, dense consolidation left lower lobe, adenopathy throughout the mediastinum, left hilar mass, widespread prominent emphysematous change. S/p Rocephin/Zithro in ER. O2 sat currently 95 % on 6L NC. ID consulted for evaluation and Mment of Pneumonia in a patient with oral cancer. Notes reviewed On nasal O2 this morning States breathing is ok Coughing up whitish phlegm now, states it was green before No CP No N/V No rash, or itching Sputum C/S normal resp kali One BC with Coag neg Staph WBC decreasing Influenza negative [place] and Pneumo negative CXR this morning same basilar infiltrates with effusion R Antibiotics Cefepime Vancomycin Current Medications Medications (Trade) Dose Ordered Sig/Alfred Route Start Time Stop Time Status Last Admin (D50w (Vial) Inj) 50 ml UNSCH PRN IV PUSH 09/22/17 19:45 (Glucagon Inj) 1 mg UNSCH PRN OTHER 09/22/17 19:45 (NovoLOG SUPPLEMENTAL SCALE) 1 ACHS SLIDING SCALE SQ 09/22/17 21:00 09/25/17 07:41 Pharmacy Profile Note 0 ml @ 0 mls/hr UNSCH OTHER 09/22/17 19:45 (Duoneb Neb) 1 ampule Q4HR NEB PRN NEB 09/22/17 19:45 09/22/17 20:03 (Symbicort 160-4.5 Mcg Inh) 2 puff Q12HR INH 09/22/17 21:00 09/25/17 07:39 (Mucinex Er) 600 mg BID PO 09/22/17 21:00 09/25/17 07:39 Cefepime HCl 1000 mg/Sodium Chloride 100 ml @ 200 mls/hr Q12H IV 09/23/17 09:00 09/25/17 07:39 Sodium Chloride 1,000 ml @ 100 mls/hr Q10H IV 09/22/17 19:31 09/25/17 07:38 (NS Flush) 2 ml UNSCH PRN IV FLUSH 09/22/17 19:45 (NS Flush) 2 ml BID IV FLUSH 09/22/17 21:00 09/25/17 07:39 (Zofran Inj) 4 mg Q6H PRN IVP 09/22/17 19:45 (Tylenol) 650 mg Q6H PRN PO 09/22/17 19:45 ([place] 5-325 Mg) 1 tab Q4H PRN PO 09/22/17 19:45 (Morphine Inj) 2 mg Q3H PRN IV PUSH 09/22/17 19:45 09/25/17 07:43 (Bing-Colace) 1 tab BID PO 09/22/17 21:00 09/24/17 20:19 (Milk Of Magnesia Liq) 30 ml Q12H PRN PO 09/22/17 19:45 (Senokot) 17.2 mg Q12H PRN PO 09/22/17 19:45 (Dulcolax Supp) 10 mg DAILY PRN RECTAL 09/22/17 19:45 (Lactulose Liq) 30 ml DAILY PRN PO 09/22/17 19:45 (Aspirin Chew) 81 mg DAILY CHEW 09/23/17 09:00 09/25/17 07:39 (Pravachol) 40 mg HS PO 09/22/17 21:00 09/24/17 20:19 Miscellaneous Information 1 Q361D XX 09/22/17 20:15 (Chlorhexidine 2% Cloth) 3 pack Taper DAILY@04 TOP 09/23/17 04:00 09/19/18 03:59 09/25/17 04:00 (Chlorhexidine 2% Cloth) 3 pack UNSCH PRN TOP 09/22/17 20:15 (SoluMEDROL INJ) 40 mg Q6HR IV PUSH 09/23/17 00:00 09/25/17 04:14 (Heparin Inj) 5,000 units Q8HR SQ 09/23/17 06:00 09/25/17 04:14 (Pepcid) 20 mg Q12H PO 09/23/17 00:00 09/24/17 23:36 (Duoneb Neb) 1 ampule Q4HR NEB NEB 09/23/17 00:00 09/25/17 07:46 Vancomycin HCl 1000 mg/Sodium Chloride 250 ml @ 250 mls/hr Q8H IV 09/24/17 20:00 09/25/17 04:14 Miscellaneous Information SPECIFIC LAB TO BE DRAWN:VA... ONCE ONCE .XX 09/25/17 19:45 09/25/17 19:46 Lines Line no evidence of infection Past Medical History HTN, Hyperlipidemia, DM, COPD, Tobacco Abuse Head and Neck Cancer Past Surgical History Back Surgery, Bowel Resection Allergies: Coded Allergies: penicillin G (Unverified Allergy, Severe, SWELLING, 09/22/17) has tolerated Cephalosporins in previous admissions *MDRO Multi-Drug Resistant Organism (Verified Adverse Reaction, Unknown, ) Hx MRSA Sputum 2006, Wounds 2003 MRSA PCR Screen negative 11/25/14 & 09/10/15. Cleared per Infection Control. Patient does not require isolation for hx of MRSA prior to 09/10/15. Objective . Vital Signs Date Time Temp Pulse Resp B/P (MAP) Pulse Ox O2 Delivery O2 Flow Rate FiO2 09/25/17 06:00 71 09/25/17 04:00 72 09/25/17 04:00 98.2 72 18 132/63 (86) 100 09/25/17 02:00 81 09/25/17 00:00 79 09/25/17 00:00 98.3 79 20 125/61 (82) 84 09/24/17 22:00 90 09/24/17 20:00 98.1 91 23 141/72 (95) 91 09/24/17 20:00 91 09/24/17 19:41 92 Nasal Cannula 5.00 09/24/17 19:00 84 09/24/17 18:00 90 09/24/17 17:00 91 38 153/74 (100) 90 09/24/17 16:00 90 09/24/17 16:00 98.4 90 24 129/63 (85) 95 09/24/17 15:00 86 09/24/17 14:00 91 09/24/17 12:00 92 09/24/17 12:00 97.9 92 24 126/60 (82) 95 09/24/17 11:00 92 09/24/17 10:00 94 09/24/17 10:00 94 22 123/57 (79) 92 09/24/17 09:00 87 24 126/60 (82) 94 09/24/17 09:00 87 09/24/17 08:52 96 Non-Rebreather . Laboratory Tests Test 09/24/17 03:13 09/25/17 03:29 White Blood Count 17.6 TH/MM3 12.8 TH/MM3 Red Blood Count 4.31 MIL/MM3 4.05 MIL/MM3 Hemoglobin 12.3 GM/DL 11.5 GM/DL Hematocrit 37.0 % 34.6 % Mean Corpuscular Volume 85.8 FL 85.6 FL Mean Corpuscular Hemoglobin 28.6 PG 28.4 PG Mean Corpuscular Hemoglobin Concent 33.3 % 33.2 % Red Cell Distribution Width 14.2 % 13.9 % Platelet Count 382 TH/MM3 347 TH/MM3 Mean Platelet Volume 7.6 FL 7.7 FL Neutrophils (%) (Auto) 85.7 % 86.6 % Lymphocytes (%) (Auto) 7.8 % 6.9 % Monocytes (%) (Auto) 6.3 % 6.4 % Eosinophils (%) (Auto) 0.0 % 0.0 % Basophils (%) (Auto) 0.2 % 0.1 % Neutrophils # (Auto) 15.1 TH/MM3 11.1 TH/MM3 Lymphocytes # (Auto) 1.4 TH/MM3 0.9 TH/MM3 Monocytes # (Auto) 1.1 TH/MM3 0.8 TH/MM3 Eosinophils # (Auto) 0.0 TH/MM3 0.0 TH/MM3 Basophils # (Auto) 0.0 TH/MM3 0.0 TH/MM3 CBC Comment DIFF FINAL DIFF FINAL Differential Comment Laboratory Tests Test 09/24/17 03:13 09/25/17 03:29 Blood Urea Nitrogen 13 MG/DL 15 MG/DL Creatinine 0.33 MG/DL 0.24 MG/DL Random Glucose 208 MG/DL 199 MG/DL Total Protein 5.5 GM/DL 4.4 GM/DL Albumin 2.0 GM/DL 1.7 GM/DL Calcium Level 7.8 MG/DL 6.6 MG/DL Alkaline Phosphatase 81 U/L 65 U/L Aspartate Amino Transf (AST/SGOT) 84 U/L 168 U/L Alanine Aminotransferase (ALT/SGPT) 37 U/L 62 U/L Total Bilirubin 0.2 MG/DL 0.2 MG/DL Sodium Level 135 MEQ/L 139 MEQ/L Potassium Level 4.3 MEQ/L 3.6 MEQ/L Chloride Level 103 MEQ/L 108 MEQ/L Carbon Dioxide Level 25.8 MEQ/L 23.6 MEQ/L Anion Gap 6 MEQ/L 7 MEQ/L Estimat Glomerular Filtration Rate 274 ML/MIN 396 ML/MIN Protein Corrected Calcium 8.0 MG/DL Microbiology Date/Time Source Procedure Growth Status 09/22/17 16:45 Blood Peripheral Aerobic Blood Culture - Preliminary NO GROWTH IN 2 DAYS Resulted 09/22/17 16:45 Blood Peripheral Anaerobic Blood Culture - Preliminary NO GROWTH IN 2 DAYS Resulted 09/22/17 16:45 Blood Peripheral Aerobic Blood Culture - Preliminary NO GROWTH IN 2 DAYS Resulted 09/22/17 16:45 Anaerobic Blood Culture - Preliminary Staph Sp Coagulase Negative Resulted 09/22/17 22:12 Sputum Expectorated Sputum Gram Stain - Final Resulted 09/22/17 22:12 Sputum Expectorated Sputum Sputum Culture - Preliminary HEAVY GROWTH NORMAL RESPIRATORY KALI... Resulted 09/22/17 22:12 Nasal Washing Influenza Types A,B Antigen (EDWIN) - Final NEGATIVE FOR FLU A AND B ANTIGEN.... Complete 09/22/17 19:25 Urine Catheterized Urine Legionella Antigen - Final PRESUMPTIVE NEGATIVE FOR LEGIONELLA P... Complete 09/22/17 19:25 Urine Catheterized Urine Streptococcus pneumoniae Antigen (M - Final PRESUMPTIVE NEGATIVE FOR STREPTOCOCCU... Complete Imaging Last Impressions Chest X-Ray 09/25/17 0600 Signed Impressions: Service Date/Time: Monday, September 25, 2017 02:57 - CONCLUSION: 1. Bilateral mostly basilar airspace disease and small right effusion, similar to September 24. Alphonso Castillo MD CT Angiography 09/22/17 0000 Signed Impressions: Service Date/Time: August 18:03 - CONCLUSION: 1. No pulmonary. 2. Dense consolidation in the left lower lobe area this could be related to inflammatory/infectious process. 3. Persistent adenopathy throughout the mediastinum in the left hilum. This is nonspecific. Reactive, inflammatory change versus neoplasm can have this appearance. A left hilar mass could have a similar appearance. One could further evaluate a patient with PET FDG study as an outpatient. 4. Widespread very prominent emphysematous change. 5. Suspected scarring in the right upper lung. Gumaro Schuster MD Physical Exam GENERAL: Awake and alert, comfortable on nasal O2 SKIN: No rashes, ecchymoses or lesions. Cool and dry. Right side face swelling. HEAD: Atraumatic. Normocephalic. No temporal or scalp tenderness. EYES: Pupils equal round and reactive. Extraocular motions intact. No scleral icterus. No injection or drainage. ENT: Nose without bleeding, purulent drainage. Moist oral mucosa NECK: Trachea midline. Supple, nontender, no meningeal signs. CARDIOVASCULAR: Hs audible. RESPIRATORY: Decreased BS bases, decreased vocal fremitus GASTROINTESTINAL: Abdomen soft, non-tender, nondistended. MUSCULOSKELETAL: Extremities without clubbing, cyanosis, or edema. No calf tenderness. NEUROLOGICAL: Awake and alert. Non focal Psych calm and cooperative IV line sites with no e/o infection Assessment & Plan Remarks IMPRESSION Pneumonia in a patient with head neck cancer Pneumonia ? aspiration ? Community acquired. Head neck cancer Penicillin allergy Recs: Continue Cefepime IV Continue Vanco IV (target 15-20) Follow cultures and adjust Abx Monitor progress Tati Hansen MD Sep 25, 2017 08:22
--- NOTE | 2017-09-25 08:56 | PD.ONC.PN ---
Subjective Subjective Remarks Afebrile overnight. Patient states he is breathing better today. He is now on nasal cannula and keeping saturations greater than 90%. He is hoping to go home soon so that he can make his appointment in [place] on tuesday. Objective Data Date Time Temp Pulse Resp B/P (MAP) Pulse Ox O2 Delivery O2 Flow Rate FiO2 09/25/17 06:00 71 09/25/17 04:00 72 09/25/17 04:00 98.2 72 18 132/63 (86) 100 09/25/17 02:00 81 09/25/17 00:00 79 09/25/17 00:00 98.3 79 20 125/61 (82) 84 09/24/17 22:00 90 09/24/17 20:00 98.1 91 23 141/72 (95) 91 09/24/17 20:00 91 09/24/17 19:41 92 Nasal Cannula 5.00 09/24/17 19:00 84 09/24/17 18:00 90 09/24/17 17:00 91 38 153/74 (100) 90 09/24/17 16:00 90 09/24/17 16:00 98.4 90 24 129/63 (85) 95 09/24/17 15:00 86 09/24/17 14:00 91 09/24/17 12:00 92 09/24/17 12:00 97.9 92 24 126/60 (82) 95 09/24/17 11:00 92 09/24/17 10:00 94 09/24/17 10:00 94 22 123/57 (79) 92 09/24/17 09:00 87 24 126/60 (82) 94 09/24/17 09:00 87 09/25/17 09/25/17 09/25/17 07:00 15:00 23:00 Intake Total 1500 ml Output Total 700 ml Balance 800 ml Result Diagram: 09/25/17 0329 09/25/17 0329 Laboratory Results Laboratory Tests Test 09/24/17 10:30 09/25/17 03:29 Vancomycin Level Trough 5.8 MCG/ML White Blood Count 12.8 TH/MM3 Red Blood Count 4.05 MIL/MM3 Hemoglobin 11.5 GM/DL Hematocrit 34.6 % Mean Corpuscular Volume 85.6 FL Mean Corpuscular Hemoglobin 28.4 PG Mean Corpuscular Hemoglobin Concent 33.2 % Red Cell Distribution Width 13.9 % Platelet Count 347 TH/MM3 Mean Platelet Volume 7.7 FL Neutrophils (%) (Auto) 86.6 % Lymphocytes (%) (Auto) 6.9 % Monocytes (%) (Auto) 6.4 % Eosinophils (%) (Auto) 0.0 % Basophils (%) (Auto) 0.1 % Neutrophils # (Auto) 11.1 TH/MM3 Lymphocytes # (Auto) 0.9 TH/MM3 Monocytes # (Auto) 0.8 TH/MM3 Eosinophils # (Auto) 0.0 TH/MM3 Basophils # (Auto) 0.0 TH/MM3 CBC Comment DIFF FINAL Differential Comment Blood Urea Nitrogen 15 MG/DL Creatinine 0.24 MG/DL Random Glucose 199 MG/DL Total Protein 4.4 GM/DL Albumin 1.7 GM/DL Calcium Level 6.6 MG/DL Alkaline Phosphatase 65 U/L Aspartate Amino Transf (AST/SGOT) 168 U/L Alanine Aminotransferase (ALT/SGPT) 62 U/L Total Bilirubin 0.2 MG/DL Sodium Level 139 MEQ/L Potassium Level 3.6 MEQ/L Chloride Level 108 MEQ/L Carbon Dioxide Level 23.6 MEQ/L Anion Gap 7 MEQ/L Estimat Glomerular Filtration Rate 396 ML/MIN Protein Corrected Calcium 8.0 MG/DL Culture Results Microbiology Date/Time Source Procedure Growth Status 09/22/17 16:45 Blood Peripheral Aerobic Blood Culture - Preliminary NO GROWTH IN 2 DAYS Resulted 09/22/17 16:45 Blood Peripheral Anaerobic Blood Culture - Preliminary NO GROWTH IN 2 DAYS Resulted 09/22/17 16:45 Blood Peripheral Aerobic Blood Culture - Preliminary NO GROWTH IN 2 DAYS Resulted 09/22/17 16:45 Anaerobic Blood Culture - Preliminary Staph Sp Coagulase Negative Resulted 09/22/17 22:12 Sputum Expectorated Sputum Gram Stain - Final Resulted 09/22/17 22:12 Sputum Expectorated Sputum Sputum Culture - Preliminary HEAVY GROWTH NORMAL RESPIRATORY DEVYN... Resulted 09/22/17 22:12 Nasal Washing Influenza Types A,B Antigen (EDWIN) - Final NEGATIVE FOR FLU A AND B ANTIGEN.... Complete 09/22/17 19:25 Urine Catheterized Urine Legionella Antigen - Final PRESUMPTIVE NEGATIVE FOR LEGIONELLA P... Complete 09/22/17 19:25 Urine Catheterized Urine Streptococcus pneumoniae Antigen (M - Final PRESUMPTIVE NEGATIVE FOR STREPTOCOCCU... Complete Imaging Studies Last 24 hours Impressions Chest X-Ray 09/25/17 0600 Signed Impressions: Service Date/Time: Monday, September 25, 2017 02:57 - CONCLUSION: 1. Bilateral mostly basilar airspace disease and small right effusion, similar to September 24. Alphonso Castillo MD Administered Medications Medications (Trade) Dose Ordered Sig/Alfred Route PRN Reason Start Time Stop Time Status Last Admin Dose Admin Insulin Aspart (NovoLOG SUPPLEMENTAL SCALE) 1 ACHS SLIDING SCALE SQ 09/22/17 21:00 09/25/17 07:41 Albuterol/ Ipratropium (Duoneb Neb) 1 ampule Q4HR NEB PRN NEB SOB/WHEEZING 09/22/17 19:45 09/22/17 20:03 Budesonide/ Formoterol Fumarate (Symbicort 160-4.5 Mcg Inh) 2 puff Q12HR INH 09/22/17 21:00 09/25/17 07:39 Guaifenesin (Mucinex Er) 600 mg BID PO 09/22/17 21:00 09/25/17 07:39 Cefepime HCl 1000 mg/Sodium Chloride 100 ml @ 200 mls/hr Q12H IV 09/23/17 09:00 09/25/17 07:39 Sodium Chloride 1,000 ml @ 100 mls/hr Q10H IV 09/22/17 19:31 09/25/17 07:38 Sodium Chloride (NS Flush) 2 ml BID IV FLUSH 09/22/17 21:00 09/25/17 07:39 Morphine Sulfate (Morphine Inj) 2 mg Q3H PRN IV PUSH Pain 6-10 09/22/17 19:45 09/25/17 07:43 Senna/Docusate Sodium (Bing-Colace) 1 tab BID PO 09/22/17 21:00 09/24/17 20:19 Aspirin (Aspirin Chew) 81 mg DAILY CHEW 09/23/17 09:00 09/25/17 07:39 Pravastatin Sodium (Pravachol) 40 mg HS PO 09/22/17 21:00 09/24/17 20:19 Chlorhexidine Gluconate (Chlorhexidine 2% Cloth) 3 pack Taper DAILY@04 TOP 09/23/17 04:00 09/19/18 03:59 09/25/17 04:00 Methylprednisolone Sodium Succinate (SoluMEDROL INJ) 40 mg Q6HR IV PUSH 09/23/17 00:00 09/25/17 04:14 Heparin Sodium (Porcine) (Heparin Inj) 5,000 units Q8HR SQ 09/23/17 06:00 09/25/17 04:14 Famotidine (Pepcid) 20 mg Q12H PO 09/23/17 00:00 09/24/17 23:36 Albuterol/ Ipratropium (Duoneb Neb) 1 ampule Q4HR NEB NEB 09/23/17 00:00 09/25/17 07:46 Vancomycin HCl 1000 mg/Sodium Chloride 250 ml @ 250 mls/hr Q8H IV 09/24/17 20:00 09/25/17 04:14 Objective Remarks GENERAL: Middle aged male upright in bed in nad. SKIN: Warm and dry. HEAD: Normocephalic. EYES: No injection or drainage. NECK: Supple, trachea midline. CARDIOVASCULAR: Regular rate and rhythm RESPIRATORY: occasional rhonchi. On 4L O2 via [place] GASTROINTESTINAL: Abdomen soft, non-tender, nondistended. EXTREMITIES: No cyanosis NEUROLOGICAL: awake and alert. normal speech. moving all extremities. Assessment/Plan Assessment 62y/o male with head and neck cancer, admitted with dyspnea, pneumonia. h/o COPD, diabetes type 2, hypercholesterolemia, hypertension, previous history of pneumonia, locally advanced head and neck cancer, large hilar adenopathy, new pneumonia, leukocytosis. (from initial consult): initially seen in consultation 07/13/2017 with a locally advanced head and neck cancer. He has extension of disease to the base of tongue and a lesion in the oral tongue. He was last seen in oncology clinic 12/2017. We were coordinating care with Dr. German for concurrent chemotherapy and radiation for what seemed like a locally advanced head and neck cancer. As of his visit, he had not had a port placed. The PEG tube is still not approved from the [place]. His chemotherapy was approved; however, he needed ENT evaluation to rule out an abscess in the oral lesion. He also has a questionable lung lesion that needs a biopsy to rule out a second primary. These referrals to the ENT and [facility] have not been approved yet by the [place]. has an appointment with [facility] on 09/28/2016. It is not clear if this is for ENT or Pulmonary or Oncology. He merely states that he is going to make that appointment no matter what. He will need a biopsy of the mediastinal lesion and a hilar lesion to determine whether this is reactive or metastatic disease. Plan 1. monitor O2 saturation 2. continue antibiotics. Attending Statement The exam, history, and the medical decision-making described in the above note were completed with the assistance of the mid-level provider. I reviewed and agree with the findings presented. I attest that I had a [id number] encounter with the patient on the same day, and personally performed and documented my assessment and findings in the medical record. Feeling better. SOB/cough improving. Leukocytosis improving. Continue abx and supportive care. He will f/u [place] clinic after d/c to plan for treatment. Mai Leslie Sep 25, 2017 08:56 Fred De Leon MD Sep 25, 2017 11:49
--- NOTE | 2017-09-25 10:18 | HHI.CCPN ---
Subjective Remarks/Hospital Course 09/22: 62-year-old male with past medical history significant of hypertension, Hyperlipidemia, DM, COPD, Tobacco Abuse and Head and Neck Cancer who presented with complaints of SOB, productive cough and facial pain x3 days. States pain is constant, severe, 10/10, non-radiating. Reports productive cough w/ green- colored sputum, no fever or chills. +SOB. Denies chest pain. Following w/ Dr. Garrison as outpatient, pending induction chemotherapy at this time. On arrival, BP 142/66, HR 108, O2 sat 86% on 6L NC, Afebrile. WBC 22.6. Chemistry essentially at baseline. INR 1.1. CXR with infiltrate left lung base. CTA Pulm negative for pulmonary embolism, however shows the dense consolidation in the left lower lobe, adenopathy throughout the mediastinum, left hilar mass, widespread prominent emphysematous change. 09/23: Resting in bed on partial rebreather facemask. Not in any acute distress. Feels that his breathing has improved somewhat since admission. 09/24: Remains on partial rebreather facemask. Not in any acute distress. 09/25: On 5 L nasal cannula, appears comfortable. Denies any shortness of breath. Not using any accessory muscles of respiration. Objective Vital Signs Date Time Temp Pulse Resp B/P (MAP) Pulse Ox O2 Delivery O2 Flow Rate FiO2 09/25/17 06:00 71 09/25/17 04:00 98.2 18 132/63 (86) 100 09/24/17 19:41 Nasal Cannula 5.00 Intake and Output 09/25/17 09/25/17 09/25/17 07:59 15:59 23:59 Intake Total 500 ml Output Total 700 ml Balance -200 ml Result Diagram: 09/25/17 0329 09/25/17 0329 Other Results Microbiology Date/Time Source Procedure Growth Status 09/22/17 22:12 Nasal Washing Influenza Types A,B Antigen (EDWIN) - Final NEGATIVE FOR FLU A AND B ANTIGEN.... Complete 09/22/17 19:25 Urine Catheterized Urine Legionella Antigen - Final PRESUMPTIVE NEGATIVE FOR LEGIONELLA P... Complete 09/22/17 19:25 Urine Catheterized Urine Streptococcus pneumoniae Antigen (M - Final PRESUMPTIVE NEGATIVE FOR STREPTOCOCCU... Complete Imaging Last 24 hours Impressions Chest X-Ray 09/22/17 1625 Signed Impressions: Service Date/Time: August 16:41 - CONCLUSION: New airspace infiltrate in the left lung base Gumaro Correa MD CT Angiography 09/22/17 0000 Signed Impressions: Service Date/Time: August 18:03 - CONCLUSION: 1. No pulmonary. 2. Dense consolidation in the left lower lobe area this could be related to inflammatory/infectious process. 3. Persistent adenopathy throughout the mediastinum in the left hilum. This is nonspecific. Reactive, inflammatory change versus neoplasm can have this appearance. A left hilar mass could have a similar appearance. One could further evaluate a patient with PET FDG study as an outpatient. 4. Widespread very prominent emphysematous change. 5. Suspected scarring in the right upper lung. Gumaro Schuster MD Objective Remarks GENERAL: Well-nourished, well-developed patient. On O2 5L NC SKIN: Warm and dry. HEAD: Normocephalic. EYES: No scleral icterus. No injection or drainage. NECK: Supple, trachea midline. No JVD or lymphadenopathy. CARDIOVASCULAR: Regular rate and rhythm without murmurs, gallops, or rubs. RESPIRATORY: Breath sounds equal bilaterally. No accessory muscle use. Scattered rhonchi bilaterally, no wheezing GASTROINTESTINAL: Abdomen soft, non-tender, nondistended. MUSCULOSKELETAL: No cyanosis, or edema. BACK: Nontender without obvious deformity. NEURO EXAM: Awake alert oriented 3, grossly nonfocal A/P Assessment and Plan Acute respiratory failure -Underlying COPD -Tobacco use disorder -Empiric antibiotic -DuoNeb scheduled and as needed -IV steroid -supplemental O2 -f/u cultures -Urine antigen Pneumonia Sepsis -Vancomycin/cefepime. ID consulted to assist with antibiotic management. -Follow-up cultures and de-escalate per sensitivity COPD exacerbation -IV steroid -DuoNeb scheduled and as needed Head and Neck cancer -Evaluated by Dr. Garrison -Recently diagnosed -Induction chemotherapy pending -Noted Dr. Garrison consult regarding patient wanting to pursue treatment at [facility]. Lung Mass -Hilar mass per CT report -previously known right lung mass per patient report -Had outpatient PET Scan -Further workup and management per medical oncology -Pulmonary consult requested for further evaluation Diabetes mellitus -Insulin sliding scale -Hold p.o. diabetic medications while n.p.o. and in the ICU Tobacco use disorder -Nicotine patch as needed DVT GI prophylaxis -SCD/Teds -Pepcid -Subcu heparin Consult and transfer to hospitalist service for further medical management. Patient will be transferred out of ICU. Critical care signing off, please reconsult if needed. Further recommendations per pulmonary, ID and oncology. Solomon Morales MD Sep 25, 2017 10:18
[2017-09-25] MEDS: FAMOTIDINE 20 MG TAB PO SCH (12:00)
--- NOTE | 2017-09-25 15:03 | HHI.PR ---
Subjective Remarks alert less SOB Objective Vital Signs Date Time Temp Pulse Resp B/P (MAP) Pulse Ox O2 Delivery O2 Flow Rate FiO2 09/25/17 13:00 97.3 82 17 150/79 (102) 90 09/25/17 12:00 78 09/25/17 12:00 98.6 78 28 151/72 (98) 92 09/25/17 11:00 78 09/25/17 10:01 88 09/25/17 10:01 88 25 140/66 (90) 93 09/25/17 10:00 87 25 94 09/25/17 10:00 87 09/25/17 09:01 85 27 149/70 (96) 88 09/25/17 09:01 85 09/25/17 09:00 82 29 94 09/25/17 09:00 82 09/25/17 08:20 93 Nasal Cannula 4.00 09/25/17 08:00 77 09/25/17 08:00 97.9 77 23 144/86 (105) 97 09/25/17 06:00 71 09/25/17 04:00 72 09/25/17 04:00 98.2 72 18 132/63 (86) 100 09/25/17 02:00 81 09/25/17 00:00 79 09/25/17 00:00 98.3 79 20 125/61 (82) 84 09/24/17 22:00 90 09/24/17 20:00 98.1 91 23 141/72 (95) 91 09/24/17 20:00 91 09/24/17 19:41 92 Nasal Cannula 5.00 09/24/17 19:00 84 09/24/17 18:00 90 09/24/17 17:00 91 38 153/74 (100) 90 09/24/17 16:00 90 09/24/17 16:00 98.4 90 24 129/63 (85) 95 I/O 09/24/17 09/24/17 09/24/17 09/25/17 09/25/17 09/25/17 07:00 15:00 23:00 07:00 15:00 23:00 Intake Total 1500 ml 1075 ml 1800 ml 1500 ml Output Total 600 ml 550 ml 700 ml Balance 900 ml 1075 ml 1250 ml 800 ml Intake Oral 250 ml 1200 ml 250 ml IV Total 1250 ml 1075 ml 600 ml 1250 ml Output Urine Total 600 ml 550 ml 700 ml Stool Total 0 ml 0 ml # Voids 3 5 4 # Bowel Movements 0 0 0 Result Diagram: 09/25/1732809/25/17328 Objective Remarks GENERAL: SKIN: Warm and dry. HEAD: Atraumatic. Normocephalic. EYES: Pupils equal and round. No scleral icterus. No injection or drainage. ENT: No nasal bleeding or discharge. Mucous membranes pink and moist. NECK: Trachea midline. No JVD. CARDIOVASCULAR: Regular rate and rhythm. RESPIRATORY: No accessory muscle use. Clear to auscultation. Breath sounds equal bilaterally. GASTROINTESTINAL: Abdomen soft, non-tender, nondistended. Hepatic and splenic margins not palpable. MUSCULOSKELETAL: Extremities without clubbing, cyanosis, or edema. No obvious deformities. NEUROLOGICAL: Awake and alert. No obvious cranial nerve deficits. Motor grossly within normal limits. Five out of 5 muscle strength in the arms and legs. Normal speech. PSYCHIATRIC: Appropriate mood and affect; insight and judgment normal. Assessment and Plan Assessment and Plan IMPRESSION COPD HEAD AND NECK CA PNA PLAN O2 NEEDED ANTIBX BRONCHODILATOR THERAPY Kalyn Mccain MD Sep 25, 2017 15:03
[2017-09-25] MEDS ORDERED: PHARMACY ORDERED LAB ONE (19:45)
[2017-09-25] MEDS: PRAVASTATIN SOD 40 MG TAB PO SCH (19:57)
[2017-09-25] MEDS: ACETAMINOPHEN/HYDROcodone 325 MG/10 MG TAB PO PRN (21:32)
[2017-09-26] VITALS (8 sets, daily range): BP systolic 132–186; BP diastolic 72–89; PULSE 65–95; RESP 16–18; TEMP 97.1–98.1; O2SAT 87–96
[2017-09-26] MEDS: FAMOTIDINE 20 MG TAB PO SCH ×2 (00:40→12:17)
[2017-09-26] MEDS: methylPREDNISolone SOD SUCC 40 MG/1 ML VIAL IV PUSH SCH ×4 (00:40→17:40)
[2017-09-26] MEDS: SODIUM CHLOR 0.9% 1000 ML INJ 1,000 ML IV SCH (03:31)
[2017-09-26] MEDS: ACETAMINOPHEN/HYDROcodone 325 MG/10 MG TAB PO PRN ×4 (03:38→20:29)
[2017-09-26] MEDS: VANCOMYCIN 1,000 MG/NS 250 ML IV SCH ×4 (03:39→12:00)
[2017-09-26] MEDS: RESP: ALBUTEROL 2.5 MG/IPRATROPIUM 0.5 MG NEB (SCH) NEB ×6 (03:52→23:53)
[2017-09-26] MEDS: CHLORHEXIDINE GLUCONATE 2 % 1 PACK (2 CLOTHS) TOP SCH (04:00)
[2017-09-26] MEDS: MORPHINE SULFATE 2 MG/ML SYRINGE IV PUSH PRN (04:34)
[2017-09-26] MEDS: HEPARIN SODIUM - SQ 10,000 UNITS/ML VIAL SQ SCH ×3 (04:36→20:37)
[2017-09-26] MEDS: INSULIN ASPART SUPPLEMENTAL SCALE SQ SCH ×4 (08:19→20:40)
[2017-09-26] MEDS: DOCUSATE SODIUM 50 MG/SENNA 8.6 MG TAB PO SCH ×2 (08:19→20:27)
[2017-09-26] MEDS: guaiFENesin E.R. 600 MG TAB PO SCH ×2 (08:19→20:27)
[2017-09-26] MEDS: ASPIRIN 81 MG CHEW TAB CHEW SCH (08:20)
[2017-09-26] MEDS: CEFEPIME INJ 1,000 MG in SODIUM CHLORIDE 0.9% INJ 100 ML IV SCH (08:21)
[2017-09-26] MEDS: SODIUM CHLORIDE 0.9% FLUSH 10 ML FLUSH IV FLUSH SCH ×2 (08:21→20:36)
[2017-09-26] MEDS: BUDESONIDE-FORMOTEROL 160/4.5 MCG INHALER INH SCH ×2 (08:22→20:34)
--- NOTE | 2017-09-26 09:02 | HHI.PR ---
Subjective Remarks in no acute distress. on four liters of oxygen via N/C. afebrile. has minimal to mild cough. Objective Vitals Vital Signs Date Time Temp Pulse Resp B/P (MAP) Pulse Ox O2 Delivery O2 Flow Rate FiO2 09/26/17 08:17 93 Nasal Cannula 4.00 09/26/17 08:00 97.8 76 18 175/85 (115) 87 09/26/17 06:20 65 09/26/17 04:41 20 09/26/17 04:41 20 09/26/17 04:00 98.1 76 18 148/78 (101) 90 09/26/17 00:00 97.8 72 18 132/83 (99) 89 09/25/17 20:30 90 Nasal Cannula 5.00 09/25/17 20:00 98.5 93 18 150/81 (104) 84 09/25/17 16:00 98.8 88 18 166/91 (116) 94 09/25/17 15:53 90 Nasal Cannula 4.00 09/25/17 13:00 97.3 82 17 150/79 (102) 90 09/25/17 12:00 78 09/25/17 12:00 98.6 78 28 151/72 (98) 92 09/25/17 11:00 78 09/25/17 10:01 88 09/25/17 10:01 88 25 140/66 (90) 93 09/25/17 10:00 87 25 94 09/25/17 10:00 87 09/25/17 09:01 85 27 149/70 (96) 88 09/25/17 09:01 85 09/25/17 09:00 82 29 94 09/25/17 09:00 82 I/O 09/25/17 09/25/17 09/25/17 09/26/17 09/26/17 09/26/17 07:00 15:00 23:00 07:00 15:00 23:00 Intake Total 1500 ml 250 ml 240 ml Output Total 700 ml 600 ml 1400 ml Balance 800 ml -350 ml -1160 ml Intake Oral 250 ml 240 ml IV Total 1250 ml 250 ml Output Urine Total 700 ml 600 ml 1400 ml Stool Total 0 ml # Voids 4 # Bowel Movements 0 Result Diagram: 09/25/17 0329 09/25/179 Imaging Last Impressions Chest X-Ray 09/25/17 0600 Signed Impressions: Service Date/Time: Monday, September 25, 2017 02:57 - CONCLUSION: 1. Bilateral mostly basilar airspace disease and small right effusion, similar to September 24. Alphonso Castillo MD CT Angiography 09/22/17 0000 Signed Impressions: Service Date/Time: August 18:03 - CONCLUSION: 1. No pulmonary. 2. Dense consolidation in the left lower lobe area this could be related to inflammatory/infectious process. 3. Persistent adenopathy throughout the mediastinum in the left hilum. This is nonspecific. Reactive, inflammatory change versus neoplasm can have this appearance. A left hilar mass could have a similar appearance. One could further evaluate a patient with PET FDG study as an outpatient. 4. Widespread very prominent emphysematous change. 5. Suspected scarring in the right upper lung. Gumaro Schuster MD Objective Remarks GENERAL: This is a well-nourished, well-developed patient, in no apparent distress. CARDIOVASCULAR: Regular rate and regular rhythm without murmurs, gallops, or rubs. RESPIRATORY: diminished air entry bilaterally. GASTROINTESTINAL: Abdomen soft, non-tender, nondistended. Normal, active bowel sounds MUSCULOSKELETAL: Extremities without clubbing, cyanosis, or edema. NEURO: Alert & Oriented x4 to person, place, time, situation. Moves all ext x4 Medications and IVs Inpatient Medications Acetaminophen (Tylenol) 650 mg Q6H PRN PO FEVER/PAIN SCALE 1 TO 2; Start at 19:45 Acetaminophen/ Hydrocodone Bitart ([place] 5-325 Mg) 1 tab Q4H PRN PO PAIN SCALE 3 TO 5; Start 09/22/17 at 19:45 Acetaminophen/ Hydrocodone Bitart ([place] 10-325 Mg) 1 tab Q4H PRN PO pain 6-10 Last administered on 09/26/17at 08:20; Start 09/25/17 at 21:15 Albuterol/ Ipratropium (Duoneb Neb) 1 ampule Q4HR NEB NEB Last administered on 09/26/17at 08:14; Start 09/23/17 at 00:00 Aspirin (Aspirin Chew) 81 mg DAILY CHEW Last administered on 09/26/17at 08:20; Start 09/23/17 at 09:00 Azithromycin 500 mg/Sodium Chloride 250 ml @ 250 mls/hr ONCE ONCE IV Last administered on 09/22/17at 19:56; Start 09/22/17 at 18:15; Stop 09/22/17 at 19:14 ; Status DC Bisacodyl (Dulcolax Supp) 10 mg DAILY PRN RECTAL SEVERE CONSITIPATION; Start at 19:45 Budesonide/ Formoterol Fumarate (Symbicort 160-4.5 Mcg Inh) 2 puff Q12HR INH Last administered on 09/25/17at 19:58; Start 09/22/17 at 21:00 Cefepime HCl 1000 mg/Sodium Chloride 100 ml @ 200 mls/hr Q12H IV Last administered on 09/26/17at 08:21; Start 09/23/17 at 09:00 Ceftriaxone Sodium 1000 mg/ Sodium Chloride 100 ml @ 200 mls/hr ONCE ONCE IV Last administered on 09/22/17at 19:27; Start 09/22/17 at 18:15; Stop 09/22/17 at 18:44; Status DC Chlorhexidine Gluconate (Chlorhexidine 2% Cloth) 3 pack UNSCH PRN TOP HYGIENIC CARE; Start 09/22/17 at 20:15 Dextrose (D50w (Vial) Inj) 50 ml UNSCH PRN IV PUSH HYPOGLYCEMIA-SEE COMMENTS; Start 09/22/17 at 19:45 Famotidine (Pepcid) 20 mg Q12H PO Last administered on 09/26/17at 00:40; Start at 00:00 Glucagon (Glucagon Inj) 1 mg UNSCH PRN OTHER HYPOGLYCEMIA-SEE COMMENTS; Start 09/22/17 at 19:45 Guaifenesin (Mucinex Er) 600 mg BID PO Last administered on 09/26/17 08:19; Start 09/22/17 at 21:00 Heparin Sodium (Porcine) (Heparin Inj) 5,000 units Q8HR SQ Last administered on 09/26/17at 04:36; Start 09/23/17 at 06:00 Insulin Aspart (NovoLOG SUPPLEMENTAL SCALE) 1 ACHS SLIDING SCALE SQ Last administered on 09/26/17at 08:19; Start 09/22/17 at 21:00 Lactulose (Lactulose Liq) 30 ml DAILY PRN PO SEVERE CONSITIPATION; Start at 19:45 Levofloxacin/ Dextrose 150 ml @ 100 mls/hr ONCE ONCE IV ; Start 09/22/17 at 18 :15; Stop 09/22/17 at 18:15; Status DC Magnesium Hydroxide (Milk Of Magnesia Liq) 30 ml Q12H PRN PO Mild constipation ; Start 09/22/17 at 19:45 Methylprednisolone Sodium Succinate (SoluMEDROL INJ) 40 mg Q6HR IV PUSH Last administered on 09/26/17at 04:34; Start 09/23/17 at 00:00 Miscellaneous Information SPECIFIC LAB TO BE DRAWN:VA... ONCE ONCE .XX Last administered on 09/25/17at 19:45; Start 09/25/17 at 19:45; Stop 09/25/17 at 19:46; Status DC Morphine Sulfate (Morphine Inj) 2 mg Q3H PRN IV PUSH breakthrough Last administered on 09/26/17at 04:34; Start 09/22/17 at 19:45 Ondansetron HCl (Zofran Inj) 4 mg Q6H PRN IVP NAUSEA OR VOMITING; Start at 19:45 Pharmacy Profile Note 0 ml @ 0 mls/hr UNSCH OTHER ; Start 09/22/17 at 19:45 Pravastatin Sodium (Pravachol) 40 mg HS PO Last administered on 09/25/17at 19:57 ; Start 09/22/17 at 21:00 Senna/Docusate Sodium (Bing-Colace) 1 tab BID PO Last administered on 09/26/17at 08:19; Start 09/22/17 at 21:00 Sennosides (Senokot) 17.2 mg Q12H PRN PO Moderate constipation; Start 09/22/17 at 19:45 Sodium Chloride (NS Flush) 2 ml BID IV FLUSH Last administered on 09/26/17at 08: 21; Start 09/22/17 at 21:00 Vancomycin HCl 1000 mg/Sodium Chloride 250 ml @ 250 mls/hr Q8H IV Last administered on 09/26/17at 03:39; Start 09/24/17 at 20:00 Vancomycin HCl 1250 mg/Sodium Chloride 262.5 ml @ 250 mls/hr Q12H IV Last administered on 09/24/17at 11:37; Start 09/23/17 at 10:00; Stop 09/24/17 at 13:06 ; Status DC Vancomycin HCl 1400 mg/Sodium Chloride 514 ml @ 250 mls/hr ONCE ONCE IV Last administered on 09/22/17at 22:39; Start 09/22/17 at 22:00; Stop 09/23/17 at 00:03 ; Status DC A/P Problem List: (1) Sepsis ICD Code: A41.9 - Sepsis Status: Resolved (2) PNA (pneumonia) ICD Code: J18.9 - Pneumonia, unspecified organism (3) Hypoxia ICD Code: R09.02 - Hypoxemia (4) COPD (chronic obstructive pulmonary disease) ICD Code: J44.9 - Chronic obstructive pulmonary disease, unspecified (5) Lung mass ICD Code: R91.8 - Other nonspecific abnormal finding of lung field (6) Head and neck cancer ICD Code: C76.0 - Malignant neoplasm of head, face and neck (7) DM (diabetes mellitus) ICD Code: E11.9 - Type 2 diabetes mellitus without complications (8) Tobacco abuse ICD Code: Z72.0 - Tobacco use Assessment and Plan A/P Acute respiratory failure -Underlying COPD -Tobacco use disorder -Empiric antibiotic -DuoNeb scheduled and as needed -IV steroid -supplemental O2; will try to taper down as tolerated. Pneumonia Sepsis -Vancomycin/cefepime. ID consulted to assist with antibiotic management. -Follow-up cultures and de-escalate per sensitivity COPD exacerbation -IV steroid -DuoNeb scheduled and as needed Head and Neck cancer -Evaluated by Dr. Garrison -Recently diagnosed -Induction chemotherapy pending -Noted Dr. Garrison consult regarding patient wanting to pursue treatment at [facility]. Lung Mass -Hilar mass per CT report -previously known right lung mass per patient report -Had outpatient PET Scan -Further workup and management per medical oncology -Pulmonary following. Diabetes mellitus -Insulin sliding scale -blood sugar expected to improve as steroids being tapered off. -will consider adding levemir. Tobacco use disorder -Nicotine patch as needed DVT GI prophylaxis -SCD/Teds -Pepcid -Subcu heparin Discharge Planning on four liters of oxygen. not ready for discharge. Problem Qualifiers (1) Sepsis: Qualified Codes: A41.9 - Sepsis, unspecified organism Sara Ryder MD Sep 26, 2017 09:02
--- NOTE | 2017-09-26 12:39 | HHI.IDPN ---
Subjective Subjective Remarks Mr. Garrison is a 62-year-old with a locally advanced head and neck cancer diagnosed in 07/13/2017. He has extension of disease reportedly into the base of his tongue and a lesion in oral part of tongue. He was last seen in oncology clinic 08/31/2017. Oncology clinic was coordinating care with Dr. German for concurrent chemotherapy and radiation for what seemed like a locally advanced head and neck cancer. Reportedly patient needed further evaluation by ENT and other MDs. He was supposed to have a Port and PEG placed but [place] has not approved these procedures although it appears chemotherapy regimen was approved. He presented to the ER with complaints of SOB, productive cough and facial pain x3 days. States pain is constant, severe, 10/10, non-radiating. Reports productive cough w/ green-colored sputum, no fever or chills. +SOB. Denies chest pain. Following w/ Dr. Garrison as outpatient, pending induction chemotherapy at this time. On arrival, BP 142/66, HR 108, O2 sat 86% on 6L NC, Afebrile. WBC 22.6. Chemistry essentially at baseline. INR 1.1. CXR with infiltrate left lung base. CTA Pulm negative for PE, dense consolidation left lower lobe, adenopathy throughout the mediastinum, left hilar mass, widespread prominent emphysematous change. S/p Rocephin/Zithro in ER. O2 sat currently 95 % on 6L NC. ID consulted for evaluation and Mment of Pneumonia in a patient with oral cancer. Notes reviewed On nasal O2 a 4L States breathing is ok Cough with no phlegm. No CP No N/V No rash, or itching Sputum C/S normal resp kali I/O 6 L positive and weight gain since admission. dw. to consider lasix. reviewed CXR with him. Antibiotics Current Medications Medications (Trade) Dose Ordered Sig/Alfred Route Start Time Stop Time Status Last Admin (D50w (Vial) Inj) 50 ml UNSCH PRN IV PUSH 09/22/17 19:45 (Glucagon Inj) 1 mg UNSCH PRN OTHER 09/22/17 19:45 (NovoLOG SUPPLEMENTAL SCALE) 1 ACHS SLIDING SCALE SQ 09/22/17 21:00 09/26/17 12:20 Pharmacy Profile Note 0 ml @ 0 mls/hr UNSCH OTHER 09/22/17 19:45 (Duoneb Neb) 1 ampule Q4HR NEB PRN NEB 09/22/17 19:45 09/22/17 20:03 (Symbicort 160-4.5 Mcg Inh) 2 puff Q12HR INH 09/22/17 21:00 09/25/17 19:58 (Mucinex Er) 600 mg BID PO 09/22/17 21:00 09/26/17 08:19 Cefepime HCl 1000 mg/Sodium Chloride 100 ml @ 200 mls/hr Q12H IV 09/23/17 09:00 09/26/17 08:21 Sodium Chloride 1,000 ml @ 100 mls/hr Q10H IV 09/22/17 19:31 09/26/17 03:31 (NS Flush) 2 ml UNSCH PRN IV FLUSH 09/22/17 19:45 (NS Flush) 2 ml BID IV FLUSH 09/22/17 21:00 09/26/17 08:21 (Zofran Inj) 4 mg Q6H PRN IVP 09/22/17 19:45 (Tylenol) 650 mg Q6H PRN PO 09/22/17 19:45 ([place] 5-325 Mg) 1 tab Q4H PRN PO 09/22/17 19:45 (Morphine Inj) 2 mg Q3H PRN IV PUSH 09/22/17 19:45 09/26/17 04:34 (Bing-Colace) 1 tab BID PO 09/22/17 21:00 09/26/17 08:19 (Milk Of Magnesia Liq) 30 ml Q12H PRN PO 09/22/17 19:45 (Senokot) 17.2 mg Q12H PRN PO 09/22/17 19:45 (Dulcolax Supp) 10 mg DAILY PRN RECTAL 09/22/17 19:45 (Lactulose Liq) 30 ml DAILY PRN PO 09/22/17 19:45 (Aspirin Chew) 81 mg DAILY CHEW 09/23/17 09:00 09/26/17 08:20 (Pravachol) 40 mg HS PO 09/22/17 21:00 09/25/17 19:57 Miscellaneous Information 1 Q361D XX 09/22/17 20:15 (Chlorhexidine 2% Cloth) 3 pack Taper DAILY@04 TOP 09/23/17 04:00 09/19/18 03:59 09/25/17 04:00 (Chlorhexidine 2% Cloth) 3 pack UNSCH PRN TOP 09/22/17 20:15 (SoluMEDROL INJ) 40 mg Q6HR IV PUSH 09/23/17 00:00 09/26/17 12:19 (Heparin Inj) 5,000 units Q8HR SQ 09/23/17 06:00 09/26/17 12:19 (Pepcid) 20 mg Q12H PO 09/23/17 00:00 09/26/17 12:17 (Duoneb Neb) 1 ampule Q4HR NEB NEB 09/23/17 00:00 09/26/17 11:40 Vancomycin HCl 1000 mg/Sodium Chloride 250 ml @ 250 mls/hr Q8H IV 09/24/17 20:00 09/26/17 03:39 ([place] 10-325 Mg) 1 tab Q4H PRN PO 09/25/17 21:15 09/26/17 12:18 Miscellaneous Information SPECIFIC LAB TO BE HAI... ONCE ONCE .XX 09/27/17 03:45 09/27/17 03:46 Lines Line no evidence of infection Past Medical History HTN, Hyperlipidemia, DM, COPD, Tobacco Abuse Head and Neck Cancer Past Surgical History Back Surgery, Bowel Resection Allergies: Coded Allergies: penicillin G (Unverified Allergy, Severe, SWELLING, 09/22/17) has tolerated Cephalosporins in previous admissions *MDRO Multi-Drug Resistant Organism (Verified Adverse Reaction, Unknown, ) Hx MRSA Sputum 2006, Wounds 2003 MRSA PCR Screen negative 11/25/14 & 09/10/15. Cleared per Infection Control. Patient does not require isolation for hx of MRSA prior to 09/10/15. Objective . Vital Signs Date Time Temp Pulse Resp B/P (MAP) Pulse Ox O2 Delivery O2 Flow Rate FiO2 09/26/17 12:00 97.4 77 17 142/72 (95) 96 09/26/17 08:17 93 Nasal Cannula 4.00 09/26/17 08:00 97.8 76 18 175/85 (115) 87 09/26/17 06:20 65 09/26/17 04:41 20 09/26/17 04:41 20 09/26/17 04:00 98.1 76 18 148/78 (101) 90 09/26/17 00:00 97.8 72 18 132/83 (99) 89 09/25/17 20:30 90 Nasal Cannula 5.00 09/25/17 20:00 98.5 93 18 150/81 (104) 84 09/25/17 16:00 98.8 88 18 166/91 (116) 94 09/25/17 15:53 90 Nasal Cannula 4.00 09/25/17 13:00 97.3 82 17 150/79 (102) 90 . Laboratory Tests Test 09/25/17 03:29 White Blood Count 12.8 TH/MM3 Red Blood Count 4.05 MIL/MM3 Hemoglobin 11.5 GM/DL Hematocrit 34.6 % Mean Corpuscular Volume 85.6 FL Mean Corpuscular Hemoglobin 28.4 PG Mean Corpuscular Hemoglobin Concent 33.2 % Red Cell Distribution Width 13.9 % Platelet Count 347 TH/MM3 Mean Platelet Volume 7.7 FL Neutrophils (%) (Auto) 86.6 % Lymphocytes (%) (Auto) 6.9 % Monocytes (%) (Auto) 6.4 % Eosinophils (%) (Auto) 0.0 % Basophils (%) (Auto) 0.1 % Neutrophils # (Auto) 11.1 TH/MM3 Lymphocytes # (Auto) 0.9 TH/MM3 Monocytes # (Auto) 0.8 TH/MM3 Eosinophils # (Auto) 0.0 TH/MM3 Basophils # (Auto) 0.0 TH/MM3 CBC Comment DIFF FINAL Differential Comment Laboratory Tests Test 09/25/17 03:29 Blood Urea Nitrogen 15 MG/DL Creatinine 0.24 MG/DL Random Glucose 199 MG/DL Total Protein 4.4 GM/DL Albumin 1.7 GM/DL Calcium Level 6.6 MG/DL Alkaline Phosphatase 65 U/L Aspartate Amino Transf (AST/SGOT) 168 U/L Alanine Aminotransferase (ALT/SGPT) 62 U/L Total Bilirubin 0.2 MG/DL Sodium Level 139 MEQ/L Potassium Level 3.6 MEQ/L Chloride Level 108 MEQ/L Carbon Dioxide Level 23.6 MEQ/L Anion Gap 7 MEQ/L Estimat Glomerular Filtration Rate 396 ML/MIN Protein Corrected Calcium 8.0 MG/DL Imaging Last Impressions Chest X-Ray 09/25/17 0600 Signed Impressions: Service Date/Time: Monday, September 25, 2017 02:57 - CONCLUSION: 1. Bilateral mostly basilar airspace disease and small right effusion, similar to September 24. Alphonso Castillo MD CT Angiography 09/22/17 0000 Signed Impressions: Service Date/Time: August 18:03 - CONCLUSION: 1. No pulmonary. 2. Dense consolidation in the left lower lobe area this could be related to inflammatory/infectious process. 3. Persistent adenopathy throughout the mediastinum in the left hilum. This is nonspecific. Reactive, inflammatory change versus neoplasm can have this appearance. A left hilar mass could have a similar appearance. One could further evaluate a patient with PET FDG study as an outpatient. 4. Widespread very prominent emphysematous change. 5. Suspected scarring in the right upper lung. Gumaro Schuster MD Physical Exam GENERAL: Awake and alert, comfortable on nasal O2 SKIN: No rashes, ecchymoses or lesions. Cool and dry. Right side face swelling. HEAD: Atraumatic. Normocephalic. No temporal or scalp tenderness. EYES: Pupils equal round and reactive. Extraocular motions intact. No scleral icterus. No injection or drainage. ENT: Nose without bleeding, purulent drainage. Moist oral mucosa NECK: Trachea midline. Supple, nontender, no meningeal signs. CARDIOVASCULAR: Hs audible. RESPIRATORY: Decreased BS bases, decreased vocal fremitus GASTROINTESTINAL: Abdomen soft, non-tender, nondistended. MUSCULOSKELETAL: Extremities without clubbing, cyanosis, or edema. No calf tenderness. NEUROLOGICAL: Awake and alert. Non focal Psych calm and cooperative IV line sites with no e/o infection Assessment & Plan Remarks IMPRESSION Pneumonia in a patient with head neck cancer Pneumonia ? aspiration ? Community acquired. Head neck cancer Penicillin allergy Recs: DC Cefepime IV DC Vanco IV (target 15-20) Start oral Levaquin and Flagyl as eating well with no e.o aspiration. Monitor progress. I/O 6 L positive and weight gain since admission. dw. to consider lasix. reviewed CXR with him. Repeat CXR on Tue or this week. Will sign off please call back if any change in clinical condition or questions. Pushpa Morales MD Sep 26, 2017 12:39
[2017-09-26] MEDS ORDERED: FUROSEMIDE 20 MG/2 ML VIAL IV PUSH ONE (12:45)
[2017-09-26] MEDS: metroNIDAZOLE 500 MG TAB PO SCH ×2 (15:21→20:27)
[2017-09-26] MEDS: LEVOFLOXACIN 500 MG TAB PO SCH (15:25)
--- NOTE | 2017-09-26 15:56 | HHI.PR ---
Subjective Remarks alert less SOB SITTING ON BED Objective Vital Signs Date Time Temp Pulse Resp B/P (MAP) Pulse Ox O2 Delivery O2 Flow Rate FiO2 09/26/17 12:00 97.4 77 17 142/72 (95) 96 09/26/17 08:17 93 Nasal Cannula 4.00 09/26/17 08:00 97.8 76 18 175/85 (115) 87 09/26/17 06:20 65 09/26/17 04:41 20 09/26/17 04:41 20 09/26/17 04:00 98.1 76 18 148/78 (101) 90 09/26/17 00:00 97.8 72 18 132/83 (99) 89 09/25/17 20:30 90 Nasal Cannula 5.00 09/25/17 20:00 98.5 93 18 150/81 (104) 84 09/25/17 16:00 98.8 88 18 166/91 (116) 94 I/O 09/25/17 09/25/17 09/25/17 09/26/17 09/26/17 09/26/17 07:00 15:00 23:00 07:00 15:00 23:00 Intake Total 1500 ml 250 ml 240 ml Output Total 700 ml 600 ml 1400 ml Balance 800 ml -350 ml -1160 ml Intake Oral 250 ml 240 ml IV Total 1250 ml 250 ml Output Urine Total 700 ml 600 ml 1400 ml Stool Total 0 ml # Voids 4 # Bowel Movements 0 Result Diagram: 09/25/17 0329 09/25/17 0329 Objective Remarks GENERAL: SKIN: Warm and dry. HEAD: Atraumatic. Normocephalic. EYES: Pupils equal and round. No scleral icterus. No injection or drainage. ENT: No nasal bleeding or discharge. Mucous membranes pink and moist. NECK: Trachea midline. No JVD. CARDIOVASCULAR: Regular rate and rhythm. RESPIRATORY: No accessory muscle use. Clear to auscultation. Breath sounds equal bilaterally. GASTROINTESTINAL: Abdomen soft, non-tender, nondistended. Hepatic and splenic margins not palpable. MUSCULOSKELETAL: Extremities without clubbing, cyanosis, or edema. No obvious deformities. NEUROLOGICAL: Awake and alert. No obvious cranial nerve deficits. Motor grossly within normal limits. Five out of 5 muscle strength in the arms and legs. Normal speech. PSYCHIATRIC: Appropriate mood and affect; insight and judgment normal. Assessment and Plan Assessment and Plan IMPRESSION COPD HEAD AND NECK CA PNA XXRAY STABLE PLAN O2 NEEDED ANTIBX BRONCHODILATOR THERAPY HOME SOON Kalyn Mccain MD Sep 26, 2017 15:55
[2017-09-26] MEDS: PRAVASTATIN SOD 40 MG TAB PO SCH (20:30)
[2017-09-27] VITALS (8 sets, daily range): BP systolic 144–183; BP diastolic 67–88; PULSE 66–88; RESP 16–19; TEMP 97.5–98.2; O2SAT 94–97
[2017-09-27] MEDS: methylPREDNISolone SOD SUCC 40 MG/1 ML VIAL IV PUSH SCH ×4 (01:15→20:25)
[2017-09-27] MEDS: FAMOTIDINE 20 MG TAB PO SCH ×3 (01:15→22:18)
[2017-09-27] MEDS: ACETAMINOPHEN/HYDROcodone 325 MG/10 MG TAB PO PRN ×5 (01:15→20:19)
[2017-09-27] MEDS: CHLORHEXIDINE GLUCONATE 2 % 1 PACK (2 CLOTHS) TOP SCH (01:19)
[2017-09-27] MEDS ORDERED: PHARMACY ORDERED LAB ONE (03:45)
[2017-09-27] MEDS: metroNIDAZOLE 500 MG TAB PO SCH ×3 (05:22→20:19)
[2017-09-27] MEDS: HEPARIN SODIUM - SQ 10,000 UNITS/ML VIAL SQ SCH ×3 (05:23→20:29)
[2017-09-27] MEDS: INSULIN ASPART SUPPLEMENTAL SCALE SQ SCH ×4 (08:02→20:32)
[2017-09-27] MEDS: ASPIRIN 81 MG CHEW TAB CHEW SCH (08:03)
[2017-09-27] MEDS: DOCUSATE SODIUM 50 MG/SENNA 8.6 MG TAB PO SCH ×2 (08:03→20:26)
[2017-09-27] MEDS: LEVOFLOXACIN 500 MG TAB PO SCH (08:03)
[2017-09-27] MEDS: guaiFENesin E.R. 600 MG TAB PO SCH ×2 (08:03→20:19)
[2017-09-27] MEDS: SODIUM CHLORIDE 0.9% FLUSH 10 ML FLUSH IV FLUSH SCH ×2 (08:05→20:26)
[2017-09-27] MEDS: BUDESONIDE-FORMOTEROL 160/4.5 MCG INHALER INH SCH ×2 (08:05→20:22)
[2017-09-27] MEDS: MORPHINE SULFATE 2 MG/ML SYRINGE IV PUSH PRN ×2 (10:29→22:19)
--- NOTE | 2017-09-27 11:57 | HHI.PR ---
Subjective Remarks in no acute distress. still on four liters of oxygen via N/C. no fever. blood sugar trend noted. Objective Vitals Vital Signs Date Time Temp Pulse Resp B/P (MAP) Pulse Ox O2 Delivery O2 Flow Rate FiO2 09/27/17 10:34 18 09/27/17 10:19 18 09/27/17 08:00 97 Nasal Cannula 4.00 Humidified 09/27/17 08:00 98.2 72 19 181/88 (119) 97 09/27/17 04:00 97.9 66 16 153/72 (99) 94 09/27/17 00:00 97.6 74 18 144/67 (92) 96 09/26/17 21:00 Nasal Cannula 4.00 09/26/17 20:00 97.9 76 16 186/89 (121) 91 09/26/17 16:00 97.1 95 18 148/87 (107) 95 09/26/17 12:00 97.4 77 17 142/72 (95) 96 I/O 09/26/17 09/26/17 09/26/17 09/27/17 09/27/17 09/27/17 06:59 14:59 22:59 06:59 14:59 22:59 Intake Total 240 ml 1100 ml 800 ml Output Total 1400 ml 1400 ml 1050 ml Balance -1160 ml 1100 ml -600 ml -1050 ml Intake Oral 240 ml 800 ml IV Total 1100 ml Output Urine Total 1400 ml 1400 ml 1050 ml # Bowel Movements 0 Result Diagram: 09/25/17 0329 09/25/17 0329 Imaging Last Impressions Chest X-Ray 09/25/17 0600 Signed Impressions: Service Date/Time: Monday, September 25, 2017 02:57 - CONCLUSION: 1. Bilateral mostly basilar airspace disease and small right effusion, similar to September 24. Alphonso Castillo MD CT Angiography 09/22/17 0000 Signed Impressions: Service Date/Time: August 18:03 - CONCLUSION: 1. No pulmonary. 2. Dense consolidation in the left lower lobe area this could be related to inflammatory/infectious process. 3. Persistent adenopathy throughout the mediastinum in the left hilum. This is nonspecific. Reactive, inflammatory change versus neoplasm can have this appearance. A left hilar mass could have a similar appearance. One could further evaluate a patient with PET FDG study as an outpatient. 4. Widespread very prominent emphysematous change. 5. Suspected scarring in the right upper lung. Gumaro Schuster MD Objective Remarks GENERAL: This is a well-nourished, well-developed patient, in no apparent distress. CARDIOVASCULAR: Regular rate and regular rhythm without murmurs, gallops, or rubs. RESPIRATORY: diminished air entry bilaterally. GASTROINTESTINAL: Abdomen soft, non-tender, nondistended. Normal, active bowel sounds MUSCULOSKELETAL: Extremities without clubbing, cyanosis, or edema. NEURO: Alert & Oriented x4 to person, place, time, situation. Moves all ext x4 Medications and IVs Inpatient Medications Acetaminophen (Tylenol) 650 mg Q6H PRN PO FEVER/PAIN SCALE 1 TO 2; Start at 19:45 Acetaminophen/ Hydrocodone Bitart ([place] 5-325 Mg) 1 tab Q4H PRN PO PAIN SCALE 3 TO 5; Start 09/22/17 at 19:45 Acetaminophen/ Hydrocodone Bitart ([place] 10-325 Mg) 1 tab Q4H PRN PO pain 6-10 Last administered on 09/27/17at 09:19; Start 09/25/17 at 21:15 Albuterol/ Ipratropium (Duoneb Neb) 1 ampule Q4HR NEB NEB Last administered on 09/26/17at 20:57; Start 09/23/17 at 00:00; Stop 09/26/17 at 23:59; Status DC Aspirin (Aspirin Chew) 81 mg DAILY CHEW Last administered on 09/27/17at 08:03; Start 09/23/17 at 09:00 Azithromycin 500 mg/Sodium Chloride 250 ml @ 250 mls/hr ONCE ONCE IV Last administered on 09/22/17at 19:56; Start 09/22/17 at 18:15; Stop 09/22/17 at 19:14 ; Status DC Bisacodyl (Dulcolax Supp) 10 mg DAILY PRN RECTAL SEVERE CONSITIPATION; Start at 19:45 Budesonide/ Formoterol Fumarate (Symbicort 160-4.5 Mcg Inh) 2 puff Q12HR INH Last administered on 09/27/17at 08:05; Start 09/22/17 at 21:00 Cefepime HCl 1000 mg/Sodium Chloride 100 ml @ 200 mls/hr Q12H IV Last administered on 09/26/17at 08:21; Start 09/23/17 at 09:00; Stop 09/26/17 at 12:44; Status DC Ceftriaxone Sodium 1000 mg/ Sodium Chloride 100 ml @ 200 mls/hr ONCE ONCE IV Last administered on 09/22/17at 19:27; Start 09/22/17 at 18:15; Stop 09/22/17 at 18:44; Status DC Chlorhexidine Gluconate (Chlorhexidine 2% Cloth) 3 pack UNSCH PRN TOP HYGIENIC CARE; Start 09/22/17 at 20:15 Dextrose (D50w (Vial) Inj) 50 ml UNSCH PRN IV PUSH HYPOGLYCEMIA-SEE COMMENTS; Start 09/22/17 at 19:45 Famotidine (Pepcid) 20 mg Q12H PO Last administered on 09/27/17at 01:15; Start at 00:00 Furosemide (Lasix Inj) 20 mg ONCE ONCE IV PUSH Last administered on 09/26/17at 15:19; Start 09/26/17 at 12:45; Stop 09/26/17 at 12:46; Status DC Glucagon (Glucagon Inj) 1 mg UNSCH PRN OTHER HYPOGLYCEMIA-SEE COMMENTS; Start 09/22/17 at 19:45 Guaifenesin (Mucinex Er) 600 mg BID PO Last administered on 09/27/17at 08:03; Start 09/22/17 at 21:00 Heparin Sodium (Porcine) (Heparin Inj) 5,000 units Q8HR SQ Last administered on 09/27/17at 05:23; Start 09/23/17 at 06:00 Insulin Aspart (NovoLOG SUPPLEMENTAL SCALE) 1 ACHS SLIDING SCALE SQ Last administered on 09/27/17at 08:02; Start 09/22/17 at 21:00 Lactulose (Lactulose Liq) 30 ml DAILY PRN PO SEVERE CONSITIPATION; Start at 19:45 Levofloxacin (Levaquin) 500 mg DAILY PO Last administered on 09/27/17at 08:03; Start 09/26/17 at 13:00 Levofloxacin/ Dextrose 150 ml @ 100 mls/hr ONCE ONCE IV ; Start 09/22/17 at 18 :15; Stop 09/22/17 at 18:15; Status DC Magnesium Hydroxide (Milk Of Magnesia Liq) 30 ml Q12H PRN PO Mild constipation ; Start 09/22/17 at 19:45 Methylprednisolone Sodium Succinate (SoluMEDROL INJ) 40 mg Q6HR IV PUSH Last administered on 09/27/17 05:23; Start 09/23/17 at 00:00 Metronidazole (Flagyl) 500 mg Q8HR PO Last administered on 09/27/17 05:22; Start 09/26/17 at 14:00 Miscellaneous Information SPECIFIC LAB TO BE HAI... ONCE ONCE .XX ; Start at 03:45; Stop 09/27/17 at 03:45; Status DC Morphine Sulfate (Morphine Inj) 2 mg Q3H PRN IV PUSH breakthrough Last administered on 09/27/17at 10:29; Start 09/22/17 at 19:45 Ondansetron HCl (Zofran Inj) 4 mg Q6H PRN IVP NAUSEA OR VOMITING; Start at 19:45 Pharmacy Profile Note 0 ml @ 0 mls/hr UNSCH OTHER ; Start 09/22/17 at 19:45; Stop 09/26/17 at 12:44; Status DC Pravastatin Sodium (Pravachol) 40 mg HS PO Last administered on 09/26/17at 20:30 ; Start 09/22/17 at 21:00 Senna/Docusate Sodium (Bing-Colace) 1 tab BID PO Last administered on 09/27/17 08:03; Start 09/22/17 at 21:00 Sennosides (Senokot) 17.2 mg Q12H PRN PO Moderate constipation; Start 09/22/17 at 19:45 Sodium Chloride (NS Flush) 2 ml BID IV FLUSH Last administered on 09/27/17 08: 05; Start 09/22/17 at 21:00 Vancomycin HCl 1000 mg/Sodium Chloride 250 ml @ 250 mls/hr Q8H IV Last administered on 09/26/17at 03:39; Start 09/24/17 at 20:00; Stop 09/26/17 at 12:44; Status DC Vancomycin HCl 1250 mg/Sodium Chloride 262.5 ml @ 250 mls/hr Q12H IV Last administered on 09/24/17at 11:37; Start 09/23/17 at 10:00; Stop 09/24/17 at 13:06 ; Status DC Vancomycin HCl 1400 mg/Sodium Chloride 514 ml @ 250 mls/hr ONCE ONCE IV Last administered on 09/22/17at 22:39; Start 09/22/17 at 22:00; Stop 09/23/17 at 00:03 ; Status DC A/P Problem List: (1) Sepsis ICD Code: A41.9 - Sepsis Status: Resolved (2) PNA (pneumonia) ICD Code: J18.9 - Pneumonia, unspecified organism (3) Hypoxia ICD Code: R09.02 - Hypoxemia (4) COPD (chronic obstructive pulmonary disease) ICD Code: J44.9 - Chronic obstructive pulmonary disease, unspecified (5) Lung mass ICD Code: R91.8 - Other nonspecific abnormal finding of lung field (6) Head and neck cancer ICD Code: C76.0 - Malignant neoplasm of head, face and neck (7) DM (diabetes mellitus) ICD Code: E11.9 - Type 2 diabetes mellitus without complications (8) Tobacco abuse ICD Code: Z72.0 - Tobacco use Assessment and Plan A/P Acute respiratory failure -Underlying COPD -Tobacco use disorder -continue levaquin and flagyl. -DuoNeb scheduled and as needed -IV steroid; will start to taper down. -supplemental O2; will try to taper down as tolerated. -needs walk test before discharge. Pneumonia Sepsis -on levaquin and flagyl -CXR tomorrow. COPD exacerbation -IV steroid -DuoNeb scheduled and as needed Head and Neck cancer -Evaluated by Dr. Garrison -Recently diagnosed -Induction chemotherapy pending -Noted Dr. Garrison consult regarding patient wanting to pursue treatment at [facility]. Lung Mass -Hilar mass per CT report -previously known right lung mass per patient report -Had outpatient PET Scan -Further workup and management per medical oncology -Pulmonary following. Diabetes mellitus -Insulin sliding scale -blood sugar expected to improve as steroids being tapered off. -will add levemir. Tobacco use disorder -Nicotine patch as needed DVT GI prophylaxis -SCD/Teds -Pepcid -Subcu heparin Discharge Planning on four liters of oxygen. not ready for discharge. Problem Qualifiers (1) Sepsis: Qualified Codes: A41.9 - Sepsis, unspecified organism Sara Ryder MD Sep 27, 2017 11:57
[2017-09-27] MEDS ORDERED: ENALAPRILAT 1.25 MG/ML VIAL IV PUSH PRN (12:00)
--- NOTE | 2017-09-27 19:04 | HHI.PR ---
Subjective Remarks alert no SOB SITTING ON BED Objective Vital Signs Date Time Temp Pulse Resp B/P (MAP) Pulse Ox O2 Delivery O2 Flow Rate FiO2 09/27/17 17:59 94 Nasal Cannula 2.00 09/27/17 16:28 80 09/27/17 16:00 98.0 77 18 172/84 (113) 94 09/27/17 15:37 18 09/27/17 12:25 Nasal Cannula 2.00 09/27/17 12:00 97.5 88 19 183/88 (119) 94 09/27/17 12:00 83 09/27/17 10:34 18 09/27/17 08:00 97 Nasal Cannula 4.00 Humidified 09/27/17 08:00 98.2 72 19 181/88 (119) 97 09/27/17 08:00 68 09/27/17 04:00 97.9 66 16 153/72 (99) 94 09/27/17 00:00 97.6 74 18 144/67 (92) 96 09/26/17 21:00 Nasal Cannula 4.00 09/26/17 20:00 97.9 76 16 186/89 (121) 91 I/O 09/26/17 09/26/17 09/26/17 09/27/17 09/27/17 09/27/17 07:00 15:00 23:00 07:00 15:00 23:00 Intake Total 240 ml 1100 ml 800 ml 800 ml Output Total 1400 ml 1400 ml 1050 ml 900 ml Balance -1160 ml 1100 ml -600 ml -1050 ml -100 ml Intake Oral 240 ml 800 ml 800 ml IV Total 1100 ml Output Urine Total 1400 ml 1400 ml 1050 ml 900 ml # Bowel Movements 0 0 Result Diagram: 09/25/17 0329 09/25/17 0329 Objective Remarks GENERAL: SKIN: Warm and dry. HEAD: Atraumatic. Normocephalic. EYES: Pupils equal and round. No scleral icterus. No injection or drainage. ENT: No nasal bleeding or discharge. Mucous membranes pink and moist. NECK: Trachea midline. No JVD. CARDIOVASCULAR: Regular rate and rhythm. RESPIRATORY: No accessory muscle use. Clear to auscultation. Breath sounds equal bilaterally. GASTROINTESTINAL: Abdomen soft, non-tender, nondistended. Hepatic and splenic margins not palpable. MUSCULOSKELETAL: Extremities without clubbing, cyanosis, or edema. No obvious deformities. NEUROLOGICAL: Awake and alert. No obvious cranial nerve deficits. Motor grossly within normal limits. Five out of 5 muscle strength in the arms and legs. Normal speech. PSYCHIATRIC: Appropriate mood and affect; insight and judgment normal. Assessment and Plan Assessment and Plan IMPRESSION COPD HEAD AND NECK CA PNA, CLICALY IMPROVED XXRAY STABLE PLAN O2 NEEDED ANTIBX BRONCHODILATOR THERAPY OK FOR D/C PULMONARY EUBANKS AND F/U OUT PATIENT Kalyn Mccain MD Sep 27, 2017 19:04
[2017-09-27] MEDS: PRAVASTATIN SOD 40 MG TAB PO SCH (20:19)
--- NOTE | 2017-09-27 20:40 | RADRPT ---
EXAM DATE/TIME: 09/27/2017 20:02 [facility] COMPARISON: CHEST SINGLE AP, September 25, 2017, 2:57. INDICATIONS : Short of breath. MEDICAL HISTORY : Chronic obstructive pulmonary disease. Cardiovascular disease. Diabetes mellitus type II. SURGICAL HISTORY : None. ENCOUNTER: Subsequent ACUITY: 1 week PAIN SCORE: 0/10 LOCATION: Bilateral chest FINDINGS: PA and lateral views of the chest demonstrate underlying emphysema. Basilar airspace disease with sma ll effusions. Heart size within normal limits. CONCLUSION: Mild basilar airspace disease with small pleural effusions, slightly improved on the right since Apri l 1. Alphonso Castillo MD on September 27, 2017 at 20:36 Board Certified Radiologist. This report was verified electronically.
[2017-09-27] MEDS ORDERED: INSULIN DETEMIR 100 UNITS/ML VIAL SQ SCH (21:00)
[2017-09-28] VITALS (8 sets, daily range): BP systolic 152–186; BP diastolic 76–97; PULSE 69–86; RESP 18–20; TEMP 97.3–98.7; O2SAT 90–94
[2017-09-28] MEDS: CHLORHEXIDINE GLUCONATE 2 % 1 PACK (2 CLOTHS) TOP SCH (04:00)
[2017-09-28] MEDS: methylPREDNISolone SOD SUCC 40 MG/1 ML VIAL IV PUSH SCH ×2 (04:46→10:59)
[2017-09-28] MEDS: metroNIDAZOLE 500 MG TAB PO SCH ×2 (04:47→13:16)
[2017-09-28] MEDS: ACETAMINOPHEN/HYDROcodone 325 MG/10 MG TAB PO PRN ×2 (04:47→11:03)
[2017-09-28] MEDS: HEPARIN SODIUM - SQ 10,000 UNITS/ML VIAL SQ SCH ×2 (04:47→13:17)
[2017-09-28] MEDS: LEVOFLOXACIN 500 MG TAB PO SCH (07:43)
[2017-09-28] MEDS: BUDESONIDE-FORMOTEROL 160/4.5 MCG INHALER INH SCH (07:43)
[2017-09-28] MEDS: DOCUSATE SODIUM 50 MG/SENNA 8.6 MG TAB PO SCH ×2 (07:43→07:45)
[2017-09-28] MEDS: guaiFENesin E.R. 600 MG TAB PO SCH (07:44)
[2017-09-28] MEDS: ASPIRIN 81 MG CHEW TAB CHEW SCH (07:44)
[2017-09-28] MEDS: SODIUM CHLORIDE 0.9% FLUSH 10 ML FLUSH IV FLUSH SCH (07:45)
[2017-09-28] MEDS: INSULIN ASPART SUPPLEMENTAL SCALE SQ SCH ×3 (07:49→16:30)
--- NOTE | 2017-09-28 10:28 | HHI.PR ---
Subjective Remarks in no acute distress. now on two liters of oxygen via N/C. no fever. no new complaints. d/w the RN. Objective Vitals Vital Signs Date Time Temp Pulse Resp B/P (MAP) Pulse Ox O2 Delivery O2 Flow Rate FiO2 09/28/17 08:10 90 Nasal Cannula 2.00 09/28/17 08:00 97.3 73 18 186/97 (126) 90 09/28/17 08:00 77 09/28/17 04:00 97.7 69 18 152/80 (104) 94 09/28/17 00:19 Nasal Cannula 4.00 Humidified 09/28/17 00:00 97.8 77 19 157/89 (111) 91 09/27/17 20:00 97.9 76 19 162/85 (110) 96 09/27/17 17:59 94 Nasal Cannula 2.00 09/27/17 16:28 80 09/27/17 16:00 98.0 77 18 172/84 (113) 94 09/27/17 15:37 18 09/27/17 12:25 Nasal Cannula 2.00 09/27/17 12:00 97.5 88 19 183/88 (119) 94 09/27/17 12:00 83 09/27/17 10:34 18 I/O 09/27/17 09/27/17 09/27/17 09/28/17 09/28/17 09/28/17 07:00 15:00 23:00 07:00 15:00 23:00 Intake Total 800 ml 480 ml Output Total 1050 ml 900 ml 1350 ml Balance -1050 ml -100 ml -870 ml Intake Oral 800 ml 480 ml Output Urine Total 1050 ml 900 ml 1350 ml # Bowel Movements 0 Result Diagram: 09/25/17 0329 09/25/17 0329 Imaging Last Impressions Chest X-Ray 09/27/17 0000 Signed Impressions: Service Date/Time: Wednesday, September 27, 2017 20:02 - CONCLUSION: Mild basilar airspace disease with small pleural effusions, slightly improved on the right since September 25. Alphonso Castillo MD CT Angiography 09/22/17 0000 Signed Impressions: Service Date/Time: August 18:03 - CONCLUSION: 1. No pulmonary. 2. Dense consolidation in the left lower lobe area this could be related to inflammatory/infectious process. 3. Persistent adenopathy throughout the mediastinum in the left hilum. This is nonspecific. Reactive, inflammatory change versus neoplasm can have this appearance. A left hilar mass could have a similar appearance. One could further evaluate a patient with PET FDG study as an outpatient. 4. Widespread very prominent emphysematous change. 5. Suspected scarring in the right upper lung. Gumaro Schuster MD Objective Remarks GENERAL: This is a well-nourished, well-developed patient, in no apparent distress. CARDIOVASCULAR: Regular rate and regular rhythm without murmurs, gallops, or rubs. RESPIRATORY: diminished air entry bilaterally. GASTROINTESTINAL: Abdomen soft, non-tender, nondistended. Normal, active bowel sounds MUSCULOSKELETAL: Extremities without clubbing, cyanosis, or edema. NEURO: Alert & Oriented x4 to person, place, time, situation. Moves all ext x4 Medications and IVs Inpatient Medications Acetaminophen (Tylenol) 650 mg Q6H PRN PO FEVER/PAIN SCALE 1 TO 2; Start at 19:45 Acetaminophen/ Hydrocodone Bitart ([place] 5-325 Mg) 1 tab Q4H PRN PO PAIN SCALE 3 TO 5; Start 09/22/17 at 19:45 Acetaminophen/ Hydrocodone Bitart ([place] 10-325 Mg) 1 tab Q4H PRN PO pain 6-10 Last administered on 09/28/17at 04:47; Start 09/25/17 at 21:15 Albuterol/ Ipratropium (Duoneb Neb) 1 ampule Q4HR NEB NEB Last administered on 09/26/17at 20:57; Start 09/23/17 at 00:00; Stop 09/26/17 at 23:59; Status DC Aspirin (Aspirin Chew) 81 mg DAILY CHEW Last administered on 09/28/17at 07:44; Start 09/23/17 at 09:00 Azithromycin 500 mg/Sodium Chloride 250 ml @ 250 mls/hr ONCE ONCE IV Last administered on 09/22/17at 19:56; Start 09/22/17 at 18:15; Stop 09/22/17 at 19:14 ; Status DC Bisacodyl (Dulcolax Supp) 10 mg DAILY PRN RECTAL SEVERE CONSITIPATION; Start at 19:45 Budesonide/ Formoterol Fumarate (Symbicort 160-4.5 Mcg Inh) 2 puff Q12HR INH Last administered on 09/28/17at 07:43; Start 09/22/17 at 21:00 Cefepime HCl 1000 mg/Sodium Chloride 100 ml @ 200 mls/hr Q12H IV Last administered on 09/26/17at 08:21; Start 09/23/17 at 09:00; Stop 09/26/17 at 12:44; Status DC Ceftriaxone Sodium 1000 mg/ Sodium Chloride 100 ml @ 200 mls/hr ONCE ONCE IV Last administered on 09/22/17at 19:27; Start 09/22/17 at 18:15; Stop 09/22/17 at 18:44; Status DC Chlorhexidine Gluconate (Chlorhexidine 2% Cloth) 3 pack UNSCH PRN TOP HYGIENIC CARE; Start 09/22/17 at 20:15 Dextrose (D50w (Vial) Inj) 50 ml UNSCH PRN IV PUSH HYPOGLYCEMIA-SEE COMMENTS; Start 09/22/17 at 19:45 Enalaprilat (Vasotec Inj) 1.25 mg Q8H PRN IV PUSH SBP> OR = 180, DBP> OR = 100 ; Start 09/27/17 at 12:00 Famotidine (Pepcid) 20 mg Q12H PO Last administered on 09/27/17at 22:18; Start at 00:00 Furosemide (Lasix Inj) 20 mg ONCE ONCE IV PUSH Last administered on 09/26/17at 15:19; Start 09/26/17 at 12:45; Stop 09/26/17 at 12:46; Status DC Glucagon (Glucagon Inj) 1 mg UNSCH PRN OTHER HYPOGLYCEMIA-SEE COMMENTS; Start 09/22/17 at 19:45 Guaifenesin (Mucinex Er) 600 mg BID PO Last administered on 09/28/17 07:44; Start 09/22/17 at 21:00 Heparin Sodium (Porcine) (Heparin Inj) 5,000 units Q8HR SQ Last administered on 09/28/17at 04:47; Start 09/23/17 at 06:00 Insulin Aspart (NovoLOG SUPPLEMENTAL SCALE) 1 ACHS SLIDING SCALE SQ Last administered on 09/28/17at 07:49; Start 09/22/17 at 21:00 Insulin Detemir (Levemir Inj) 5 units HS SQ Last administered on 09/27/17at 20:32 ; Start 09/27/17 at 21:00 Lactulose (Lactulose Liq) 30 ml DAILY PRN PO SEVERE CONSITIPATION; Start at 19:45 Levofloxacin (Levaquin) 500 mg DAILY PO Last administered on 09/28/17at 07:43; Start 09/26/17 at 13:00 Levofloxacin/ Dextrose 150 ml @ 100 mls/hr ONCE ONCE IV ; Start 09/22/17 at 18 :15; Stop 09/22/17 at 18:15; Status DC Magnesium Hydroxide (Milk Of Magnesia Liq) 30 ml Q12H PRN PO Mild constipation ; Start 09/22/17 at 19:45 Methylprednisolone Sodium Succinate (SoluMEDROL INJ) 40 mg Q8H IV PUSH Last administered on 09/28/17 04:46; Start 09/27/17 at 20:00 Metronidazole (Flagyl) 500 mg Q8HR PO Last administered on 09/28/17 04:47; Start 09/26/17 at 14:00 Miscellaneous Information SPECIFIC LAB TO BE ... ONCE ONCE .XX ; Start at 03:45; Stop 09/27/17 at 03:45; Status DC Morphine Sulfate (Morphine Inj) 2 mg Q3H PRN IV PUSH breakthrough Last administered on 09/27/17at 22:19; Start 09/22/17 at 19:45 Ondansetron HCl (Zofran Inj) 4 mg Q6H PRN IVP NAUSEA OR VOMITING; Start at 19:45 Pharmacy Profile Note 0 ml @ 0 mls/hr UNSCH OTHER ; Start 09/22/17 at 19:45; Stop 09/26/17 at 12:44; Status DC Pravastatin Sodium (Pravachol) 40 mg HS PO Last administered on 09/27/17 20:19 ; Start 09/22/17 at 21:00 Senna/Docusate Sodium (Bing-Colace) 1 tab BID PO Last administered on 09/27/17 08:03; Start 09/22/17 at 21:00 Sennosides (Senokot) 17.2 mg Q12H PRN PO Moderate constipation; Start 09/22/17 at 19:45 Sodium Chloride (NS Flush) 2 ml BID IV FLUSH Last administered on 09/28/17at 07: 45; Start 09/22/17 at 21:00 Vancomycin HCl 1000 mg/Sodium Chloride 250 ml @ 250 mls/hr Q8H IV Last administered on 09/26/17at 03:39; Start 09/24/17 at 20:00; Stop 09/26/17 at 12:44; Status DC Vancomycin HCl 1250 mg/Sodium Chloride 262.5 ml @ 250 mls/hr Q12H IV Last administered on 09/24/17at 11:37; Start 09/23/17 at 10:00; Stop 09/24/17 at 13:06 ; Status DC Vancomycin HCl 1400 mg/Sodium Chloride 514 ml @ 250 mls/hr ONCE ONCE IV Last administered on 09/22/17at 22:39; Start 09/22/17 at 22:00; Stop 09/23/17 at 00:03 ; Status DC A/P Problem List: (1) Sepsis ICD Code: A41.9 - Sepsis Status: Resolved (2) PNA (pneumonia) ICD Code: J18.9 - Pneumonia, unspecified organism (3) Hypoxia ICD Code: R09.02 - Hypoxemia (4) COPD (chronic obstructive pulmonary disease) ICD Code: J44.9 - Chronic obstructive pulmonary disease, unspecified (5) Lung mass ICD Code: R91.8 - Other nonspecific abnormal finding of lung field (6) Head and neck cancer ICD Code: C76.0 - Malignant neoplasm of head, face and neck (7) DM (diabetes mellitus) ICD Code: E11.9 - Type 2 diabetes mellitus without complications (8) Tobacco abuse ICD Code: Z72.0 - Tobacco use Assessment and Plan A/P Acute respiratory failure -Underlying COPD -Tobacco use disorder -continue levaquin and flagyl. -DuoNeb scheduled and as needed -IV steroid; will switch to po steroids. -supplemental O2;will do walk test today. Pneumonia Sepsis -on levaquin and flagyl COPD exacerbation- improving; -IV steroid; switch to po steroids. -neb treatment. Head and Neck cancer -Evaluated by Dr. Garrison -Recently diagnosed -Induction chemotherapy pending -Noted Dr. Garrison consult regarding patient wanting to pursue treatment at [facility]. Lung Mass -Hilar mass per CT report -previously known right lung mass per patient report -Had outpatient PET Scan -Further workup and management per medical oncology -Pulmonary following. Diabetes mellitus -Insulin sliding scale -blood sugar expected to improve as steroids being tapered off. -added levemir Tobacco use disorder -Nicotine patch as needed DVT GI prophylaxis -SCD/Teds -Pepcid -Subcu heparin Discharge Planning walk test today. dc home with C within the next 24 hrs. see med list. f/u; pcp and pulmonary. d/w the patient and RN. time spent 35 min. Problem Qualifiers (1) Sepsis: Qualified Codes: A41.9 - Sepsis, unspecified organism Sara Ryder MD Sep 28, 2017 10:28
[2017-09-28] MEDS ORDERED: LEVA500T33 PO (10:33)
[2017-09-28] MEDS ORDERED: Albuterol-Ipratropium Neb NEB (10:33)
[2017-09-28] MEDS ORDERED: PRED5TAB PO (10:33)
[2017-09-28] MEDS ORDERED: VENTAER INH (10:33)
[2017-09-28] MEDS ORDERED: METR-1 PO (10:33)
[2017-09-28] MEDS ORDERED: Budeson-Formot 160-4.5 Mcg Inh INH (10:33)
[2017-09-28] MEDS ORDERED: NEBULIZER1 MI1 (10:34)
--- NOTE | 2017-09-28 10:36 | HHI.DS ---
Discharge Summary Admission Date Sep 22, 2017 at 19:20 Discharge Date: Sep 28, 2017 Admitting Diagnosis acute pneumonia, sepsis, throat cancer pt (1) Sepsis ICD Code: A41.9 - Sepsis Diagnosis: Principal Status: Resolved (2) PNA (pneumonia) ICD Code: J18.9 - Pneumonia, unspecified organism Diagnosis: Principal (3) Hypoxia ICD Code: R09.02 - Hypoxemia Diagnosis: Principal (4) COPD (chronic obstructive pulmonary disease) ICD Code: J44.9 - Chronic obstructive pulmonary disease, unspecified Diagnosis: Principal (5) Lung mass ICD Code: R91.8 - Other nonspecific abnormal finding of lung field Diagnosis: Secondary (6) Head and neck cancer ICD Code: C76.0 - Malignant neoplasm of head, face and neck Diagnosis: Secondary (7) DM (diabetes mellitus) ICD Code: E11.9 - Type 2 diabetes mellitus without complications Diagnosis: Secondary (8) Tobacco abuse ICD Code: Z72.0 - Tobacco use Diagnosis: Secondary Procedures none Brief History - From Admission This is a 62-year-old male with a PMH of HTN, Hyperlipidemia, DM, COPD, Tobacco Abuse and Head and Neck Cancer who presented to the ER with complaints of SOB, productive cough and facial pain x3 days. States pain is constant, severe, 10/ 10, non-radiating. Reports productive cough w/ green-colored sputum, no fever or chills. +SOB. Denies chest pain. Following w/ Dr. Garrison as outpatient, pending induction chemotherapy at this time. On arrival, BP 142/66, HR 108, O2 sat 86% on 6L NC, Afebrile. WBC 22.6. Chemistry essentially at baseline. INR 1.1. CXR with infiltrate left lung base. CTA Pulm negative for PE, dense consolidation left lower lobe, adenopathy throughout the mediastinum, left hilar mass, widespread prominent emphysematous change. S/p Rocephin/Zithro in ER. O2 sat currently 95% on 6L NC. CBC/BMP: 09/25/17 0329 09/25/17 0329 Significant Findings Laboratory Tests Test 09/25/17 19:50 Vancomycin Level Trough 16.0 MCG/ML (5.0-10.0) Imaging Last Impressions Chest X-Ray 09/27/17 0000 Signed Impressions: Service Date/Time: Wednesday, September 27, 2017 20:02 - CONCLUSION: Mild basilar airspace disease with small pleural effusions, slightly improved on the right since September 25. Alphonso Castillo MD CT Angiography 09/22/17 0000 Signed Impressions: Service Date/Time: August 18:03 - CONCLUSION: 1. No pulmonary. 2. Dense consolidation in the left lower lobe area this could be related to inflammatory/infectious process. 3. Persistent adenopathy throughout the mediastinum in the left hilum. This is nonspecific. Reactive, inflammatory change versus neoplasm can have this appearance. A left hilar mass could have a similar appearance. One could further evaluate a patient with PET FDG study as an outpatient. 4. Widespread very prominent emphysematous change. 5. Suspected scarring in the right upper lung. Gumaro Schuster MD PE at Discharge GENERAL: This is a well-nourished, well-developed patient, in no apparent distress. CARDIOVASCULAR: Regular rate and regular rhythm without murmurs, gallops, or rubs. RESPIRATORY: diminished air entry bilaterally. GASTROINTESTINAL: Abdomen soft, non-tender, nondistended. Normal, active bowel sounds MUSCULOSKELETAL: Extremities without clubbing, cyanosis, or edema. NEURO: Alert & Oriented x4 to person, place, time, situation. Moves all ext x4 Hospital Course Acute respiratory failure -Underlying COPD -Tobacco use disorder -continue levaquin and flagyl. -DuoNeb scheduled and as needed -IV steroid; will switch to po steroids. -supplemental O2;will do walk test today. Pneumonia Sepsis -on levaquin and flagyl COPD exacerbation- improving; -IV steroid; switch to po steroids. -neb treatment. Head and Neck cancer -Evaluated by Dr. Garrison -Recently diagnosed -Induction chemotherapy pending -Noted Dr. Garrison consult regarding patient wanting to pursue treatment at [facility]. Lung Mass -Hilar mass per CT report -previously known right lung mass per patient report -Had outpatient PET Scan -Further workup and management per medical oncology -Pulmonary following. Diabetes mellitus -Insulin sliding scale -blood sugar expected to improve as steroids being tapered off. Tobacco use disorder -Nicotine patch as needed Pt Condition on Discharge: Fair Discharge Disposition: Disch w/ Home Health Serv Discharge Time: > 30 minutes Discharge Instructions DIET: Follow Instructions for: Heart Healthy Diet, Diabetic Diet Activities you can perform: Regular-No Restrictions Sara Ryder MD Sep 28, 2017 10:36
[2017-09-28] MEDS: FAMOTIDINE 20 MG TAB PO SCH (11:00)
[2017-09-28] MEDS ORDERED: LISINOPRIL 10 MG TAB PO SCH (11:00)
[2017-09-28] MEDS: MORPHINE SULFATE 2 MG/ML SYRINGE IV PUSH PRN (11:51)
[2017-09-28] MEDS ORDERED: OXYGENDME NAS.CANULA (13:50)
--- NOTE | 2017-09-28 13:51 | HHI.FF ---
Face to Face Verification Diagnosis: (1) Hypoxia (2) COPD exacerbation Home Health Nursing Order: Medical education Signs/symptoms of disease process Oxygen administration education Medication education-adverse effect Nursing assessment with vital signs I have seen patient Kishor Garrison on 09/28/17. My clinical findings support the need for the requested home health care services because: Ltd mobility - disease progression Patient has SOB I certify that my clinical findings support that this patient is homebound because: Hx COPD- exertion dyspnea/weakness Sara Ryder MD Sep 28, 2017 13:51
[2017-09-28] MEDS ORDERED: methylPREDNISolone SOD SUCC 40 MG/1 ML VIAL IV PUSH SCH (21:00)
== END 2017-09-28 19:50 | disposition home health service (06) | DRG 871 ==
LOC: NEPC 15:30 → NEDA 19:20 → HIMW 22:50 → N07B 09-25 13:12
PROVIDERS: ADMIT Internal Medicine; ATTEND Internal Medicine
DX: A41.9 Sepsis, unspecified organism (principal); J18.9 Pneumonia, unspecified organism; J96.21 Acute and chronic respiratory failure with hypoxia; J96.22 Acute and chronic respiratory failure with hypercapnia; R64 Cachexia; C78.02 Secondary malignant neoplasm of left lung; J44.0 Chronic obstructive pulmonary disease with (acute) lower respiratory infection; C01 Malignant neoplasm of base of tongue; J44.1 Chronic obstructive pulmonary disease with (acute) exacerbation; E11.9 Type 2 diabetes mellitus without complications; I10 Essential (primary) hypertension; E78.5 Hyperlipidemia, unspecified; E78.00 Pure hypercholesterolemia, unspecified; R59.0 Localized enlarged lymph nodes; K21.9 Gastro-esophageal reflux disease without esophagitis; F17.200 Nicotine dependence, unspecified, uncomplicated; Z68.21 Body mass index [BMI] 21.0-21.9, adult; Z79.84 Long term (current) use of oral hypoglycemic drugs; Z86.14 Personal history of Methicillin resistant Staphylococcus aureus infection; Z88.0 Allergy status to penicillin
CPT/HCPCS: 36600; 71045; 71046; 71275; 80053; 80202; 81001; 82805; 82948; 83605; 83690; 83735; 84100; 85007; 85025; 85027; 85610; 85730; 87040; 87070; 87186; 87205; 87449; 87641; 87804; 93005; 94618; 94640; 94664; 96361; 96374; 96375; J0456; J0692; J0696; J1644; J1815; J1940; J2270; J2405; J2920; J3370; J7030; J7040; J7050; Q9967

== ENCOUNTER 2017-12-17 21:08 | Inpatient (IN) ==
[2017-12-25] MEDS ORDERED: Dextrose 50% in Water 50 ML Vial IV.PUSH PRN (00:01)
[2017-12-25] MEDS ORDERED: Sodium Phosphate Inj 30 MMOL in Sodium Chlor 0.9% Inj 250 ML IV.SIG PRN (00:01)
[2017-12-25] MEDS ORDERED: Magnesium Sulfate Inj 4 GM in Sodium Chlor 0.9% Inj 92 ML IV.SIG PRN (00:01)
[2017-12-25] MEDS ORDERED: Potassium Phosphate Inj 30 MMOL in Sodium Chlor 0.9% Inj 250 ML IV.SIG PRN (00:01)
[2017-12-25] MEDS ORDERED: Potassium Phosphate 500 MG Soluble Tablet PO PRN (00:01)
[2017-12-25] MEDS ORDERED: Potassium Chloride 25 MEQ Effervescent Tablet PO PRN (00:01)
[2017-12-25] MEDS ORDERED: Chlorhexidine Gluconate 2% 1 Pack (2 Cloths) TOPICAL PRN (00:01)
[2017-12-25] MEDS ORDERED: Magnesium Sulfate Inj 2 GM in Sodium Chlor 0.9% Inj 96 ML IV.SIG PRN (00:01)
[2017-12-25] MEDS ORDERED: Magnesium Oxide 400 MG Tablet PO PRN (00:01)
[2017-12-25] MEDS ORDERED: Bisacodyl 10 MG Supp RECTAL PRN (00:01)
[2017-12-25] MEDS ORDERED: Potassium Chlor 40 mEq Premix 40 MEQ/100 ML PIGGYBACK IV.SIG PRN (00:01)
[2017-12-25] MEDS ORDERED: Chlorhexidine Gluconate 2% 1 Pack (2 Cloths) TOPICAL SCH (04:00)
--- NOTE | 2017-12-25 05:15 | XR ---
EXAM DATE: 12/25/2017 4:49 AM EDT AGE/SEX: 62 years / Male INDICATIONS: Respiratory status. CLINICAL DATA: This is the patient's subsequent encounter. Patient reports that signs and symptoms h ave been present for 3 days and indicates a pain score of Nonresponsive. MEDICAL/SURGICAL HISTORY: None. None. [place] [facility] [place]. . FINDINGS: Compared December 24. [id number] unchanged in superior vena cava. Tracheostomy again noted. Bilateral mostly basilar airspace disease similar to December 24. Trace pleural fluid. CONCLUSION: Support apparatus unchanged. Stable basilar airspace disease and trace pleural fluid. Electronically signed by: Alphonso Castillo MD 12/25/2017 5:14 AM EDT
[2017-12-25 05:44] LABS: ABG Base Excess 14.5 mmol/L (-2-2); ABG PCO2 60 mmHg (38-42); ABG PO2 91 mmHG (61-120)
[2017-12-25 05:52] LABS: Baso % (Auto) 0.2 % (0.0-2.0); Eos # (Auto) 0.1 th/mm3 (0.0-0.4); Eos % (Auto) 0.4 % (0.0-4.0); Hematocrit 31.9 % (39.0-51.0); Hemoglobin 10.3 gm/dL (13.0-17.0); Lymph % (Auto) 11.9 % (9.0-44.0); Mean Corpuscular HGB Conc 32.3 % (32.0-36.0); Mean Corpuscular Hemoglobin 29.1 pg (27.0-34.0); Mean Platelet Volume 9.2 fL (7.0-11.0); Mono # (Auto) 0.8 th/mm3 (0.0-0.9); Mono % (Auto) 4.7 % (0.0-8.0); Neut # (Auto) 13.6 th/mm3 (1.8-7.7); Neut % (Auto) 82.8 % (16.0-70.0); Platelet Count 262 th/mm3 (150-450); Red Blood Count 3.54 mil/mm3 (4.50-5.90); Red Cell Distribution Width 15.6 % (11.6-17.2); White Blood Count 16.5 th/mm3 (4.0-11.0)
[2017-12-25 06:13] LABS: Anion Gap 4 meq/L (5-15); Blood Urea Nitrogen 29 mg/dL (7-18); Calcium 8.6 mg/dL (8.5-10.1); Carbon Dioxide 39.8 meq/L (21.0-32.0); Chloride 93 meq/L (98-107); Glomerular Filtration Rate Greater Than 89 mL/min (>89); Glucose,Random 242 mg/dL (74-106); Magnesium 2.1 mg/dL (1.5-2.5); Phosphorus 3.8 mg/dL (2.5-4.9); Potassium 4.7 meq/L (3.5-5.1); Sodium 137 meq/L (136-145)
[2017-12-25] MEDS: metroNIDAZOLE 500 MG Tablet PO SCH ×3 (06:36→21:35)
[2017-12-25] MEDS: Senna/Docusate Sodium 8.6/50 MG Tablet PO SCH ×2 (09:33→21:34)
[2017-12-25] MEDS: Enoxaparin Inj 30 MG/0.3 ML Syringe SQ SCH (11:14)
[2017-12-25] MEDS: Chlorhexidine Gluconate 0.12% Liq 15 ML UDC SWISH-SPIT SCH ×2 (11:15→21:34)
--- NOTE | 2017-12-25 11:26 | P.PNONC ---
Subjective Interval history: Patient indicates he is feeling so-so Wants to leave the hospital No specific acute complaints Denies nausea or other GI symptoms Objective Vital Signs/Intake & Output: Vital Signs 12/25/17 00:00 12/25/17 00:04 12/25/17 01:00 Pulse Rate 83 86 87 Respiratory Rate 17 20 Blood Pressure 114/59 L 100/57 L Pulse Oximetry 97 97 12/25/17 02:00 12/25/17 02:45 12/25/17 03:00 Pulse Rate 82 86 86 Respiratory Rate 27 H 51 H 43 H Blood Pressure 101/57 L 114/62 105/59 L Pulse Oximetry 94 L 96 96 12/25/17 03:33 12/25/17 04:00 12/25/17 04:10 Pulse Rate 82 82 Respiratory Rate 12 78 H 6 L Blood Pressure 101/57 L Pulse Oximetry 97 98 12/25/17 05:00 12/25/17 06:00 12/25/17 07:00 Pulse Rate 82 82 84 Respiratory Rate 64 H 44 H 43 H Blood Pressure 101/57 L 112/57 L 106/56 L Pulse Oximetry 98 96 97 12/25/17 08:24 Pulse Rate Respiratory Rate 9 L Blood Pressure Pulse Oximetry 98 Intake & Output 12/24/17 12/25/17 12/25/17 18:59 06:59 18:59 Intake Total 2556 / 2556 Output Total 4500 / 4500 Balance -1944 / -1944 Weight 144 lb 6.444 oz Intake: Tube Feeding 2015 Water Bolus Amount 540 / 540 Output: Urine Amount (Catheter) 4500 / 4500 Indwelling Urethral Catheter 4500 / 4500 Result Diagrams: 12/25/17 05:00 12/25/17 05:00 Laboratory Results: Laboratory Results - last 24 hr 12/22/17 12/22/17 12/22/17 04:00 04:00 12:17 WBC 14.3 H RBC 3.20 L Hgb 9.3 L Hct 28.5 L MCV 89.1 MCH 28.9 MCHC 32.5 RDW 15.9 Plt Count 262 MPV 8.3 Neut % (Auto) 75.2 H Lymph % (Auto) 12.6 [place] % (Auto) 11.1 H Eos % (Auto) 0.7 Baso % (Auto) 0.4 Neut # (Auto) 10.8 H Lymph # (Auto) 1.8 [place] # (Auto) 1.6 H Eos # (Auto) 0.1 Baso # (Auto) 0.1 CBC Comment DIFF FINAL WBC Differential Differential Comment Puncture Site Patient Temperature HCO3 Base Excess O2 Saturation ABG pH ABG pCO2 ABG pO2 ABG HCO3 ABG O2 Content ABG Base Excess ABG Carboxyhemoglobin ABG Methemoglobin Cap Carboxyhemoglobin Hemoglobin O2 Delivery Device Liter Flow Vent Setting Inspired O2 Critical Value Sodium 138 Potassium 4.1 Chloride 98 Carbon Dioxide 33.8 H Anion Gap 6 BUN 23 H D Creatinine 0.35 L Estimated GFR 256 POC Glucose Random Glucose 190 H Calcium 8.6 Phosphorus 1.9 L D Magnesium 2.0 Vancomycin Trough 20.3 H 12/22/17 12/23/17 12/23/17 14:38 04:30 04:30 WBC 11.9 H RBC 4.01 L Hgb 11.8 L D Hct 35.5 L MCV 88.5 MCH 29.3 MCHC 33.1 RDW 15.6 Plt Count 303 MPV 8.9 Neut % (Auto) 93.0 H Lymph % (Auto) 5.4 L [place] % (Auto) 1.5 Eos % (Auto) 0.0 Baso % (Auto) 0.1 Neut # (Auto) 11.1 H Lymph # (Auto) 0.6 L [place] # (Auto) 0.2 Eos # (Auto) 0.0 Baso # (Auto) 0.0 CBC Comment DIFF FINAL WBC Differential Differential Comment Puncture Site ART LINE Patient Temperature 98.6 HCO3 27 H Base Excess 4.2 H O2 Saturation 94 ABG pH 7.53 H* ABG pCO2 33 L ABG pO2 81 ABG HCO3 ABG O2 Content 12.1 ABG Base Excess ABG Carboxyhemoglobin 0.2 ABG Methemoglobin 0.9 Cap Carboxyhemoglobin Hemoglobin 9.1 L O2 Delivery Device VENTILATOR Liter Flow Vent Setting 10/+5/40% Inspired O2 40 Critical Value Sodium 136 Potassium 4.3 Chloride 94 L Carbon Dioxide 35.6 H Anion Gap 6 BUN 15 Creatinine 0.35 L Estimated GFR 256 POC Glucose Random Glucose 277 H Calcium 8.2 L Phosphorus 3.6 D Magnesium 2.0 Vancomycin Trough 12/24/17 12/24/17 12/24/17 07:26 07:26 09:43 WBC 25.3 H RBC 4.53 Hgb 13.1 Hct 40.5 MCV 89.4 MCH 28.8 MCHC 32.3 RDW 15.8 Plt Count 342 MPV 9.6 Neut % (Auto) 83.3 H Lymph % (Auto) 10.8 [place] % (Auto) 5.5 Eos % (Auto) 0.2 Baso % (Auto) 0.2 Neut # (Auto) 21.1 H Lymph # (Auto) 2.7 [place] # (Auto) 1.4 H Eos # (Auto) 0.0 Baso # (Auto) 0.0 CBC Comment DIFF FINAL WBC Differential Differential Comment Puncture Site RT BRACHIAL Patient Temperature 98.6 HCO3 39 H Base Excess 13.7 H O2 Saturation 89 L* ABG pH 7.44 H ABG pCO2 58 H* ABG pO2 68 ABG HCO3 ABG O2 Content 14.5 ABG Base Excess ABG Carboxyhemoglobin 0.4 ABG Methemoglobin 0.9 Cap Carboxyhemoglobin Hemoglobin 11.5 L O2 Delivery Device T-PIECE Liter Flow 10 Vent Setting Inspired O2 80 Critical Value Sodium 136 Potassium 4.2 Chloride 92 L Carbon Dioxide 37.7 H Anion Gap 6 BUN 30 H D Creatinine 0.50 L Estimated GFR 170 POC Glucose Random Glucose 249 H Calcium 8.8 Phosphorus Magnesium Vancomycin Trough 12/25/17 12/25/17 12/25/17 05:00 05:00 05:26 WBC 16.5 H RBC 3.54 L Hgb 10.3 L Hct 31.9 L MCV 90.0 MCH 29.1 MCHC 32.3 RDW 15.6 Plt Count 262 MPV 9.2 Neut % (Auto) 82.8 H Lymph % (Auto) 11.9 [place] % (Auto) 4.7 Eos % (Auto) 0.4 Baso % (Auto) 0.2 Neut # (Auto) 13.6 H Lymph # (Auto) 2.0 [place] # (Auto) 0.8 Eos # (Auto) 0.1 Baso # (Auto) 0.0 CBC Comment WBC Differential . Differential Comment Auto diff final Puncture Site Right brachial Patient Temperature 98.6 HCO3 Base Excess O2 Saturation 94 ABG pH 7.44 H ABG pCO2 60 H* ABG pO2 91 ABG HCO3 40 H ABG O2 Content 13.8 ABG Base Excess 14.5 H ABG Carboxyhemoglobin ABG Methemoglobin 1.2 Cap Carboxyhemoglobin 0.0 Hemoglobin 10.4 L O2 Delivery Device Vent Liter Flow Vent Setting Cpap8/ps12 Inspired O2 65 Critical Value Yes Sodium 137 Potassium 4.7 Chloride 93 L Carbon Dioxide 39.8 H Anion Gap 4 L BUN 29 H Creatinine 0.40 L Estimated GFR Greater than 89 POC Glucose Random Glucose 242 H Calcium 8.6 Phosphorus 3.8 Magnesium 2.1 Vancomycin Trough 12/25/17 08:00 WBC RBC Hgb Hct MCV MCH MCHC RDW Plt Count MPV Neut % (Auto) Lymph % (Auto) [place] % (Auto) Eos % (Auto) Baso % (Auto) Neut # (Auto) Lymph # (Auto) [place] # (Auto) Eos # (Auto) Baso # (Auto) CBC Comment WBC Differential Differential Comment Puncture Site Patient Temperature HCO3 Base Excess O2 Saturation ABG pH ABG pCO2 ABG pO2 ABG HCO3 ABG O2 Content ABG Base Excess ABG Carboxyhemoglobin ABG Methemoglobin Cap Carboxyhemoglobin Hemoglobin O2 Delivery Device Liter Flow Vent Setting Inspired O2 Critical Value Sodium Potassium Chloride Carbon Dioxide Anion Gap BUN Creatinine Estimated GFR POC Glucose 221 H Random Glucose Calcium Phosphorus Magnesium Vancomycin Trough Imaging Studies: Impressions Chest X-Ray 12/25/17 06:00 CONCLUSION: Support apparatus unchanged. Stable basilar airspace disease and trace pleural fluid. Medications: Active Medications Generic Name Dose Route Start Last Admin Trade Name Freq PRN Reason Stop Dose Admin Albuterol 1 ampul 12/25/17 04:00 12/25/17 08:23 Duoneb Neb (Alfred) NEB 1 ampul Q6HR NEB [facility] Administration Chlorhexidine Gluconate 15 ml 12/25/17 09:00 12/25/17 11:15 Peridex 0.12% Liq SWISH-SPIT 15 ml BID ALFRED Administration Enoxaparin Sodium 30 mg 12/25/17 11:00 12/25/17 11:14 Lovenox Inj SQ 30 mg Q24H ALFRED Administration Metronidazole 500 mg 12/25/17 06:00 12/25/17 06:36 Flagyl PO 500 mg Q8HR ALFRED Administration Oxycodone HCl 10 mg 12/25/17 00:01 12/25/17 08:06 Roxicodone PO 10 mg Q4H PRN Administration Pain Scale 3 to 5 Senna/Docusate Sodium 1 tab 12/25/17 09:00 12/25/17 09:33 Bing-Colace PO 1 tab BID ALFRED Administration Sodium Chloride 2 ml 12/25/17 09:00 12/25/17 09:33 Ns Flush IV.FLUSH 2 ml BID ALFRED Administration Sterile Water 200 ml 12/25/17 06:00 12/25/17 06:36 Free Water G-TUBE 200 ml Q8HR ALFRED Administration Objective Remarks: GENERAL: Cachectic older male resting in bed mechanically ventilated via trach SKIN: Warm and dry. HEAD: Normocephalic. EYES: No injection or drainage. NECK: Supple, trachea midline. CARDIOVASCULAR: +S1/S2. 3/6 systolic murmur auscultated RESPIRATORY: Mechanically ventilated via trach. Scattered rhonchi. On 60% FiO2 GASTROINTESTINAL: Abdomen soft, non-tender, nondistended. PEG tube in place EXTREMITIES: No cyanosis, or edema. MUSCULOSKELETAL: + Muscle wasting NEUROLOGICAL: Inability to speak due to trach. Follows commands. Nods head yes and no appropriately. 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 He had right cervical and submandibular lymphadenopathy. He was originally found to have a T3, N2 C, M0 stage IV a head neck cancer. [facility] but for reasons unknown he still has yet to begin any kind of treatment. He does have [id number] placement. The patient does have a mediastinal mass however no biopsy has been done as of yet. He was supposedly supposed to have a biopsy at the end of November at [facility] for this. He is supposedly going for biopsy at the end of this month at [facility]. There is some improvement of the subcarinal adenopathy. CT the soft tissue the neck shows large tumor mass involving the tongue and right side of the pharynx. He does have necrotic right-sided cervical chain adenopathy. 1. No significant side effects after first cycle of chemotherapy with carboplatin and paclitaxel 2. Continue supportive care 3. Monitor CBC, CMP - Attending Statement The exam, history, and the medical decision-making described in the above note were completed with the assistance of the mid-level provider. I reviewed and agree with the findings presented. I attest that I had a [id number] encounter with the patient on the same day, and personally performed and documented my assessment and findings in the medical record. 62 yoM with locally advanced head and neck cancer s/p carboplatin and paclitaxel. Tolerating well with no issues.
[2017-12-25] MEDS: Insulin NovoLOG Aspart Correctional Sugar Inj SQ SCH ×3 (12:54→21:34)
[2017-12-25] MEDS ORDERED: Enoxaparin Inj 40 MG/0.4 ML Syringe SQ SCH (15:00)
--- NOTE | 2017-12-25 16:09 | P.PNPL ---
Subjective Interval history: YOWM with H&N ca, RF, s/p emergent trach On PSV Requiring Fi02 50% No Fever or chills has lot of oral secretions Tongue protruding Physical Exam Vital signs: Vital Signs 12/25/17 00:00 12/25/17 00:04 12/25/17 01:00 Pulse Rate 83 86 87 Respiratory Rate 17 20 Blood Pressure 114/59 L 100/57 L Pulse Oximetry 97 97 12/25/17 02:00 12/25/17 02:45 12/25/17 03:00 Pulse Rate 82 86 86 Respiratory Rate 27 H 51 H 43 H Blood Pressure 101/57 L 114/62 105/59 L Pulse Oximetry 94 L 96 96 12/25/17 03:33 12/25/17 04:00 12/25/17 04:10 Pulse Rate 82 82 Respiratory Rate 12 78 H 6 L Blood Pressure 101/57 L Pulse Oximetry 97 98 12/25/17 05:00 12/25/17 06:00 12/25/17 07:00 Pulse Rate 82 82 84 Respiratory Rate 64 H 44 H 43 H Blood Pressure 101/57 L 112/57 L 106/56 L Pulse Oximetry 98 96 97 12/25/17 08:24 12/25/17 11:21 Pulse Rate Respiratory Rate 9 L 10 L Blood Pressure Pulse Oximetry 98 94 L Intake & Output 12/24/17 12/25/17 12/25/17 18:59 06:59 18:59 Intake Total 2556 / 2556 Output Total 4500 / 4500 Balance -1944 / -1944 Weight 65.5 kg Intake: Tube Feeding 2015 Water Bolus Amount 540 / 540 Output: Urine Amount (Catheter) 4500 / 4500 Indwelling Urethral Catheter 4500 / 4500 MBMN WM, on Vent Neck has large mass trach in place CHEST: Good BS bilat CVS: S1S2 normal GI; has PEG tube EXT: No odema - Urinary Catheter Management Indwelling Urethral Catheter Cath placed during this visit: yes Insertion date: 12/20/17 Insertion time: 00:00 Assessment and Plan - Plan Resp failure S/P Emergent trach Neck Mass H&N Ca COPD PLAN: Cont Vent Support, PSV Fio2 50% Aerosol nebs cont Abx Tube feeding
--- NOTE | 2017-12-25 17:31 | P.PNCC ---
Subjective Subjective Remarks/Hospital Course: Remarks/Hospital Course This is a 62-year-old male with a past medical history of squamous cell carcinoma of the head and neck, lung mass COPD, hypertension diabetes with a history of tobacco abuse, that presented on 12/18. The patient regularly is seen at the [facility] however he was not afforded treatment at this time . The patient was admitted to the medical floor, hematology oncology had been consulted plans were for chemotherapy to be initiated today the patient underwent PEG placement yesterday. Late this afternoon the patient was noted to be hypoxemic with significant airway edema , O2 sat in the 80's, Pao2 59 on 100% nonrebreather ,in the setting of a large tumor mass .A Halicat was called , and the patient was emergently transferred to [facility]. Upon transfer the patient was immediately out evaluated and noted to be in significant respiratory distress, oral airway significantly edematous tongue protruding out of mouth Mallampati unobtainable upon evaluation. The patient appeared to be alert and could not yes and no to questions unable to speak. Quick assessment of CT scans that were previously done of the neck showed a large tumor mass crossing midline. Dr. Cabello , Anesthesiologist in to evaluate patient at bedside discussed case with him. Emergency airway equipment placed at bedside trauma surgery was notified I spoke with Dr. Rangel, patient emergently scheduled for tracheostomy to secure airway. A left radial A-line was placed ABG on 100% nonrebreather was obtained prior to going PaO2 had risen to 60 on nonrebreather mask. Subjective: 12/21: No acute events overnight. The patient underwent emergency tracheostomy to secure the airway last evening. Norepinephrine and fentanyl infusions have been discontinued this morning patient has been transitioned onto CPAP trials and denies any discomfort. Patient is communicating with board and marker. PEG tube in situ tube feedings Glucerna currently at 30 cc/an hour continue to be advanced to goal. FiO2 has been decreased to .45% 12/22: No acute events overnight. The patient was maintained on CPAP trials throughout the night and this afternoon plan trach collar trials this afternoon PT OT has been initiated. Patient tolerating tube feeds no residuals. 12/23: Patient progressing well currently on trach collar trials greater than 24 hours. Patient tolerating tube feeds diet. Chemotherapy initiated yesterday. Patient denies pain. 12/24: Late entry note patient seen at 11:40 AM. Overnight the patient became agitated pulling off lines and tubes. Patient had previous stated that he has an anxiety disorder ,Xanax was ordered however not given. Upon my evaluation this a.m. O2 saturation noted to be low patient placed on FiO2 of 80% stat ABG was performed to reveal hypoxemia the patient was placed back on CPAP stat chest x-ray was performed which showed worsening airspace disease in the bases. 12/25: Patient noted with episodes of nausea, tube feeds held. Zofran given for nausea. The patient continues to have increased FiO2 requirements the patient is being placed on trach collar during the day CPAP at night. Objective Vital Signs / I&O: Vital Signs 12/25/17 00:00 12/25/17 00:04 12/25/17 01:00 Pulse Rate 83 86 87 Respiratory Rate 17 20 Blood Pressure 114/59 L 100/57 L Pulse Oximetry 97 97 12/25/17 02:00 12/25/17 02:45 12/25/17 03:00 Pulse Rate 82 86 86 Respiratory Rate 27 H 51 H 43 H Blood Pressure 101/57 L 114/62 105/59 L Pulse Oximetry 94 L 96 96 12/25/17 03:33 12/25/17 04:00 12/25/17 04:10 Pulse Rate 82 82 Respiratory Rate 12 78 H 6 L Blood Pressure 101/57 L Pulse Oximetry 97 98 12/25/17 05:00 12/25/17 06:00 12/25/17 07:00 Pulse Rate 82 82 84 Respiratory Rate 64 H 44 H 43 H Blood Pressure 101/57 L 112/57 L 106/56 L Pulse Oximetry 98 96 97 12/25/17 08:24 12/25/17 11:21 12/25/17 16:16 Pulse Rate 92 H Respiratory Rate 9 L 10 L 13 Blood Pressure Pulse Oximetry 98 94 L 94 L Intake & Output 12/24/17 12/25/17 12/25/17 18:59 06:59 18:59 Intake Total 2556 / 2556 Output Total 4500 / 4500 Balance -1944 / -1944 Weight 65.5 kg Intake: Tube Feeding 2015 Water Bolus Amount 540 / 540 Output: Urine Amount (Catheter) 4500 / 4500 Indwelling Urethral Catheter 4500 / 4500 Result Diagrams: 12/25/17 05:00 12/25/17 05:00 Objective Remarks: Procedures 12/19 PEG tube placed 12/20 Emergency tracheostomy- 8.0 Ayaz Objective Remarks GENERAL: This is a chronically ill-appearing cachectic male in no apparent distress. Communicating in writing. SKIN: Warm and dry. HEAD: Atraumatic. Normocephalic. EYES: Pupils equal and round. No scleral icterus. No injection or drainage. ENT: No nasal bleeding or discharge. Mucous membranes pink and moist. Tongue less edematous protruding from mouth unable to open mouth lips slightly less edematous. Inability to view oral aperture or oral pharynx NECK: Trachea midline. No JVD. Noted right sided neck mass. 8.0 Shiley tracheostomy insitu CARDIOVASCULAR: Normal rate, regular rhythm. Right chest [id number] RESPIRATORY: No accessory muscle use. Clear to auscultation. Breath sounds equal bilaterally. GASTROINTESTINAL: Abdomen soft, non-tender, nondistended. No guarding. PEG tube insitu MUSCULOSKELETAL: Extremities without clubbing, cyanosis, or edema. No obvious deformities. NEUROLOGICAL: GCS 11T Awake and alert. RASS 0. No gross focal/sensory deficits. Follows commands in all 4 extremities. Patient nodding head to yes and no questions, Assessment and Plan - Assessment and Plan Plan: Problem List: (1) Lung mass ICD Code: R91.8 - Other nonspecific abnormal finding of lung field (2) Acute on chronic respiratory failure with hypoxemia ICD Code: J96.21 - Acute and chronic respiratory failure with hypoxia (3) HTN (hypertension) ICD Code: I10 - Essential (primary) hypertension Status: Acute (4) Chronic obstructive pulmonary disease ICD Code: J44.9 - Chronic obstructive pulmonary disease Status: Chronic (5) GERD (gastroesophageal reflux disease) ICD Code: K21.9 - GERD (gastroesophageal reflux disease) Status: Chronic (6) COPD (chronic obstructive pulmonary disease) ICD Code: J44.9 - COPD (chronic obstructive pulmonary disease) Status: Acute (7) Diabetes ICD Code: E11.9 - Diabetes Status: Acute (8) Leukocytosis ICD Code: D72.829 - Leukocytosis Status: Resolved (9) Sepsis ICD Code: A41.9 - Sepsis Status: Resolved (10) Tobacco abuse ICD Code: Z72.0 - Tobacco use (11) Lung mass ICD Code: R91.8 - Other nonspecific abnormal finding of lung field (12) Hypoxia ICD Code: R09.02 - Hypoxemia (13) COPD exacerbation ICD Code: J44.1 - Chronic obstructive pulmonary disease with (acute) exacerbation Status: Acute (14) Head and neck cancer ICD Code: C76.0 - Malignant neoplasm of head, face and neck Assessment and Plan Plan by systems: Neurologic: Febrile illness-resolved Tylenol 650 mg every 6 hours as needed for pain and/or temperature Daily sedation vacation GCS 11T Continue Oxycodone 10 mg q 4HR PRN for pain Xanax every 6 hours as needed for agitation Respiratory: Acute hypoxemic respiratory failure COPD exacerbation Lung mass Head and neck cancer -neck mass Airway compromise Class IV Mallampati rating 12/20 S/P Emergent tracheostomy to secure airway, 8.0 Shiley 12/21 trach collar trials on .40% initiated. Patient placed back on CPAP 12/24 secondary to hypoxemia and worsening chest x-ray Follow-up ABG- Leatha@ 80's on FIO2 80% Continue budesonide Ventilator bundle Patient placed on CPAP at night, trach collar trials during the day Bronchodilators every 6 hours scheduled and every 2 hours as needed 12/21-Chest x-ray edema, IV fluids discontinued Hematology oncology following for chemotherapy 12/22 Patient seen by radiation oncology plan for XRT initiation Cardiovascular: Hypertension Maintain MAP > greater than 65 Patient returned from OR last evening on norepinephrine, discontinued 12/21 Renal: Maintain condom catheter -- Strict I/Os FEN/GI: PEG placement 12/19 Nausea and vomiting Glucerna 1.5 currently at goal 65 cc/hr. minimal residuals noted. Tube feeds held Bowel regimen Zofran for nausea Lasix IV 40 mg 1 dose Heme/ID: Head and neck cancer Sepsis Leukocytosis Hematology oncology following-patient was tentatively scheduled for chemotherapy to initiate 12/20-we will follow up the recommendations Patient was initiated on Levaquin and vancomycin on 12/20 ID following Blood urine and sputum cultures-NGTD WBC downtrending, afebrile Endocrine: Diabetes mellitus Glucose monitoring per ICU protocol low dose -- SSI Prophylaxis: GI Prophylaxis Famotidine DVT Prophylaxis -- SCDs Lovenox Lines: Left radial A-line dc'd 12/22, right chest [id number] Dispo: Level 3 followup Code Status: Full Discussed Condition With: Patient and [employer]PER
[2017-12-25] MEDS: Budesonide-Formoterol 160/4.5 MCG 6 GM Inhaler INH SCH (21:36)
[2017-12-26] MEDS: Temazepam 15 MG Capsule NG/OG PRN ×2 (00:52→23:31)
[2017-12-26 05:49] LABS: Baso % (Auto) 0.1 % (0.0-2.0); Eos # (Auto) 0.2 th/mm3 (0.0-0.4); Hematocrit 33.5 % (39.0-51.0); Hemoglobin 10.7 gm/dL (13.0-17.0); Lymph # (Auto) 2.1 th/mm3 (1.0-4.8); Lymph % (Auto) 10.9 % (9.0-44.0); Mean Corpuscular Hemoglobin 28.3 pg (27.0-34.0); Mean Corpuscular Volume 88.2 fL (80.0-100.0); Mean Platelet Volume 9.2 fL (7.0-11.0); Mono # (Auto) 1.2 th/mm3 (0.0-0.9); Neut # (Auto) 15.8 th/mm3 (1.8-7.7); Platelet Count 322 th/mm3 (150-450); Red Cell Distribution Width 15.5 % (11.6-17.2); White Blood Count 19.3 th/mm3 (4.0-11.0)
[2017-12-26] MEDS: metroNIDAZOLE 500 MG Tablet PO SCH ×3 (05:57→21:13)
[2017-12-26 05:59] LABS: Anion Gap 6 meq/L (5-15); Blood Urea Nitrogen 20 mg/dL (7-18); Calcium 8.9 mg/dL (8.5-10.1); Chloride 91 meq/L (98-107); Glomerular Filtration Rate Greater Than 89 mL/min (>89); Glucose,Random 193 mg/dL (74-106); Potassium 4.7 meq/L (3.5-5.1); Sodium 132 meq/L (136-145)
[2017-12-26] MEDS: Insulin NovoLOG Aspart Correctional Sugar Inj SQ SCH ×5 (09:19→23:39)
[2017-12-26] MEDS: Senna/Docusate Sodium 8.6/50 MG Tablet PO SCH (09:22)
[2017-12-26] MEDS: Chlorhexidine Gluconate 0.12% Liq 15 ML UDC SWISH-SPIT SCH ×2 (09:22→21:12)
[2017-12-26] MEDS: Budesonide-Formoterol 160/4.5 MCG 6 GM Inhaler INH SCH ×3 (09:22→21:14)
[2017-12-26] MEDS: Enoxaparin Inj 30 MG/0.3 ML Syringe SQ SCH (12:09)
--- NOTE | 2017-12-26 14:51 | P.PNID ---
Subjective Remarks: Mr. 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 Garrison medical oncologist. At that time patient was found to have right cervical lymphadenopathy and submandibular lymphadenopathy. The CAT scan of the chest at that time had shown COPD with mild enlargement of the mediastinal lymph node and he was staged to be a T3, N2 C, M0, stage IV a head and neck cancer. The patient was advised to have a PET scan, Keyfae-r-Nlos placement and PEG tube to start the treatment however due to some delays related to his approval of treatment plan by the [place] patient did not undergo this. Patient was referred to [facility] at the [facility]. Additionally it appears that the patient himself did not want any treatment done at [facility]. Additional information that is pertinent is that patient was admitted again on September 23, 2017 for pneumonia. During that admission he was again evaluated by Dr. Garrison. Patient did not want any treatment to be done locally related to his cancer so he was discharged home on September 28, 2017. He appears to be under the care of me and those records are not available to us at the present time. It does not appear that the patient was started on any chemotherapy based on review of medical records from oncology notes. Patient reportedly has been losing weight and cachectic unable to talk too much due to very large tumor in the mouth and unable to eat much. His tumor on the right side of the mouth started increasing progressively. With this background patient presented to the emergency department complaining of pain in the neck and unable to eat or drink. He was complaining of cough with blood-tinged sputum. He had a CAT scan of the soft tissue of the neck which showed a large tumor involving the tongue and the right side of pharynx with necrotic right cervical lymphadenopathy. Patient was initially admitted to the hospitalist service and then overnight yesterday patient had respiratory distress and had to be emergently trached. performed emergency tracheostomy. Overnight patient was on pressors and currently is off of pressors. His urine output is okay. He is awake responding to commands and currently off of pressors as well as sedatives. Oncology services as well as radiation oncology have been following the patient. It is determined at the present time the patient would undergo chemotherapy followed by radiation therapy in an attempt to reduce the bulk of the tumor. Infectious diseases consulted for evaluation and management of persistent leukocytosis. Overnight events reviewed No fevers No rash No diarrhea Neck feels better today PEG , Trach in. uses non verbal methods such as finger and hand movements to communicate Antibiotics: Levaquin Flagyl Lines: Lines ok Past Medical History: Antibiotics Levaquin IV Vancomycin IV Lines Line sites okay Past Medical History COPD, hypertension, diabetes mellitus. Bowel resection, back surgery, Infusaport placement. Emergency trach during this admission Allergies/Adverse Reactions: Allergies penicillin G Allergy (Severe, Unverified 12/17/17 21:20) SWELLING has tolerated Cephalosporins in previous admissions *MDRO Multi-Drug Resistant Organism Adverse Reaction (Unknown, Uncoded 12/17/17 21:20) Hx MRSA Sputum 2006, Wounds 2003 MRSA PCR Screen negative 11/25/14 & 09/10/15. Cleared per Infection Control. Patient does not require isolation for hx of MRSA prior to 09/10/15. Objective Vital Signs 12/25/17 15:00 12/25/17 15:30 12/25/17 16:00 Temperature Pulse Rate 82 82 81 Respiratory Rate 33 H 35 H 44 H Blood Pressure 108/57 L 123/60 105/59 L Pulse Oximetry 93 L 92 L 92 L 12/25/17 16:16 12/25/17 16:30 12/25/17 17:00 Temperature Pulse Rate 92 H 87 85 Respiratory Rate 13 45 H 43 H Blood Pressure 126/62 121/60 Pulse Oximetry 94 L 12/25/17 17:30 12/25/17 18:00 12/25/17 18:30 Temperature Pulse Rate 84 92 H 89 Respiratory Rate 42 H 46 H 43 H Blood Pressure 117/63 150/76 H 135/64 Pulse Oximetry 92 L 12/25/17 19:00 12/25/17 19:30 12/25/17 20:00 Temperature 97.6 F Pulse Rate 89 86 85 Respiratory Rate 31 H 42 H 20 Blood Pressure 112/61 100/55 L 105/59 L Pulse Oximetry 94 L 90 L 12/25/17 20:30 12/25/17 21:00 12/25/17 21:30 Temperature Pulse Rate 90 89 90 Respiratory Rate 42 H 38 H 48 H Blood Pressure 124/63 106/56 L 115/61 Pulse Oximetry 12/25/17 22:00 12/25/17 22:30 12/25/17 22:35 Temperature 98.6 F Pulse Rate 90 91 H Respiratory Rate 41 H 46 H 10 L Blood Pressure 109/58 L 121/61 Pulse Oximetry 97 12/25/17 23:00 12/25/17 23:31 12/26/17 00:00 Temperature 98.8 F Pulse Rate 93 H 93 H 88 Respiratory Rate 31 H 41 H 40 H Blood Pressure 111/62 126/67 109/59 L Pulse Oximetry 93 L 97 12/26/17 00:30 12/26/17 01:00 12/26/17 01:20 Temperature Pulse Rate 93 H 85 Respiratory Rate 30 H 55 H 10 L Blood Pressure 120/66 102/58 L Pulse Oximetry 94 L 94 L 93 L 12/26/17 01:30 12/26/17 01:31 12/26/17 02:00 Temperature Pulse Rate 92 H 90 82 Respiratory Rate 26 H 20 37 H Blood Pressure 77/50 L 92/50 L 99/60 L Pulse Oximetry 95 95 91 L 12/26/17 02:30 12/26/17 03:00 12/26/17 03:30 Temperature Pulse Rate 81 82 83 Respiratory Rate 38 H 53 H 38 H Blood Pressure 115/56 L 102/59 L 110/61 Pulse Oximetry 91 L 92 L 92 L 12/26/17 03:43 12/26/17 04:00 12/26/17 04:30 Temperature 98.6 F Pulse Rate 85 91 H 91 H Respiratory Rate 12 30 H 22 Blood Pressure 119/78 132/76 Pulse Oximetry 94 L 97 12/26/17 04:35 12/26/17 05:00 12/26/17 05:30 Temperature Pulse Rate 91 H 94 H Respiratory Rate 13 14 22 Blood Pressure 114/65 144/69 H Pulse Oximetry 98 92 L 93 L 12/26/17 06:00 12/26/17 06:30 12/26/17 07:00 Temperature Pulse Rate 91 H 92 H 85 Respiratory Rate 39 H 31 H 27 H Blood Pressure 115/63 122/65 108/59 L Pulse Oximetry 93 L 92 L 12/26/17 08:28 12/26/17 12:09 Temperature Pulse Rate 88 Respiratory Rate 13 14 Blood Pressure Pulse Oximetry Intake & Output 12/25/17 12/26/17 12/26/17 18:59 06:59 18:59 Intake Total 750 / 750 811 / 811 Output Total 1400 / 1400 950 / 950 Balance -650 / -650 -139 / -139 Weight 65 kg Intake: Tube Feeding 750 / 750 291 / 291 Water Bolus Amount 520 / 520 Output: Urine Amount (Catheter) 1400 / 1400 950 / 950 Indwelling Urethral Catheter 1400 / 1400 950 / 950 Lab - Hematology Results 12/22/17 12/23/17 12/24/17 04:00 04:30 07:26 WBC 14.3 H 11.9 H 25.3 H RBC 3.20 L 4.01 L 4.53 Hgb 9.3 L 11.8 L D 13.1 Hct 28.5 L 35.5 L 40.5 MCV 89.1 88.5 89.4 MCH 28.9 29.3 28.8 MCHC 32.5 33.1 32.3 RDW 15.9 15.6 15.8 Plt Count 262 303 342 MPV 8.3 8.9 9.6 Neut % (Auto) 75.2 H 93.0 H 83.3 H Lymph % (Auto) 12.6 5.4 L 10.8 Wilkinson % (Auto) 11.1 H 1.5 5.5 Eos % (Auto) 0.7 0.0 0.2 Baso % (Auto) 0.4 0.1 0.2 Neut # (Auto) 10.8 H 11.1 H 21.1 H Lymph # (Auto) 1.8 0.6 L 2.7 Wilkinson # (Auto) 1.6 H 0.2 1.4 H Eos # (Auto) 0.1 0.0 0.0 Baso # (Auto) 0.1 0.0 0.0 CBC Comment DIFF FINAL DIFF FINAL DIFF FINAL WBC Differential Differential Comment 12/25/17 12/26/17 05:00 04:40 WBC 16.5 H 19.3 H RBC 3.54 L 3.80 L Hgb 10.3 L 10.7 L Hct 31.9 L 33.5 L MCV 90.0 88.2 MCH 29.1 28.3 MCHC 32.3 32.0 RDW 15.6 15.5 Plt Count 262 322 MPV 9.2 9.2 Neut % (Auto) 82.8 H 82.0 H Lymph % (Auto) 11.9 10.9 Wilkinson % (Auto) 4.7 6.0 Eos % (Auto) 0.4 1.0 Baso % (Auto) 0.2 0.1 Neut # (Auto) 13.6 H 15.8 H Lymph # (Auto) 2.0 2.1 Wilkinson # (Auto) 0.8 1.2 H Eos # (Auto) 0.1 0.2 Baso # (Auto) 0.0 0.0 CBC Comment WBC Differential . . Differential Comment Auto diff final Auto diff final Lab - Chemistry Results 12/22/17 12/23/17 12/24/17 04:00 04:30 07:26 Sodium 138 136 136 Potassium 4.1 4.3 4.2 Chloride 98 94 L 92 L Carbon Dioxide 33.8 H 35.6 H 37.7 H Anion Gap 6 6 6 BUN 23 H D 15 30 H D Creatinine 0.35 L 0.35 L 0.50 L Estimated GFR 256 256 170 POC Glucose Random Glucose 190 H 277 H 249 H Calcium 8.6 8.2 L 8.8 Phosphorus 1.9 L D 3.6 D Magnesium 2.0 2.0 12/25/17 12/25/17 12/25/17 05:00 08:00 12:32 Sodium 137 Potassium 4.7 Chloride 93 L Carbon Dioxide 39.8 H Anion Gap 4 L BUN 29 H Creatinine 0.40 L Estimated GFR Greater than 89 POC Glucose 221 H 229 H Random Glucose 242 H Calcium 8.6 Phosphorus 3.8 Magnesium 2.1 12/25/17 12/25/17 12/26/17 16:46 21:19 04:40 Sodium 132 L Potassium 4.7 Chloride 91 L Carbon Dioxide 35.0 H Anion Gap 6 BUN 20 H Creatinine 0.35 L Estimated GFR Greater than 89 POC Glucose 210 H 165 H Random Glucose 193 H Calcium 8.9 Phosphorus Magnesium 12/26/17 12/26/17 07:59 12:47 Sodium Potassium Chloride Carbon Dioxide Anion Gap BUN Creatinine Estimated GFR POC Glucose 213 H 183 H Random Glucose Calcium Phosphorus Magnesium Imaging: ITS Impressions Chest X-Ray 12/25/17 06:00 CONCLUSION: Support apparatus unchanged. Stable basilar airspace disease and trace pleural fluid. Physical Exam: GENERAL: This is a well-nourished, well-developed patient, in no apparent distress. SKIN: No rashes, ecchymoses or lesions. Cool and dry. HEAD: Atraumatic. Normocephalic. No temporal or scalp tenderness. EYES: Pupils equal round and reactive. Extraocular motions intact. No scleral icterus. No injection or drainage. ENT: Large mass occupying the mouth, protruding through right part of mouth. Swelling in right side of neck. NECK: Trach site ok. Port site ok. CARDIOVASCULAR: HS audible. RESPIRATORY: Clear to auscultation. Breath sounds equal bilaterally. No wheezes , rales, or rhonchi. GASTROINTESTINAL: Abdomen soft, non-tender, nondistended. NEUROLOGICAL: Awake and alert. Non focal exam Psych cooperative IV line sites with no e.o infection. Assessment and Plan - Plan Possible Sepsis (leucocytosis, tachycardia, source: aspiration pneumonitis) Leucocytosis: aspiration pneumonia, steroid effect, necrosis of the the tumor or LNs. Acute resp failure on vent Trach for obstructive airway cancer. 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 Recs: Continue Levaquin for now as clinically improved some, off pressors Continue Flagyl oral per OGT Follow sputum cultures Follow clinically.
--- NOTE | 2017-12-26 16:20 | P.PNCC ---
Subjective Subjective Remarks/Hospital Course: Remarks/Hospital Course This is a 62-year-old male with a past medical history of squamous cell carcinoma of the head and neck, lung mass COPD, hypertension diabetes with a history of tobacco abuse, that presented on 12/18. The patient regularly is seen at the [facility] however he was not afforded treatment at this time . The patient was admitted to the medical floor, hematology oncology had been consulted plans were for chemotherapy to be initiated today the patient underwent PEG placement yesterday. Late this afternoon the patient was noted to be hypoxemic with significant airway edema , O2 sat in the 80's, Pao2 59 on 100% nonrebreather ,in the setting of a large tumor mass .A Halicat was called , and the patient was emergently transferred [place] [facility] transfer the patient was immediately out evaluated and noted to be in significant respiratory distress, oral airway significantly edematous tongue protruding out of mouth Mallampati unobtainable upon evaluation. The patient appeared to be alert and could not yes and no to questions unable to speak. Quick assessment of CT scans that were previously done of the neck showed a large tumor mass crossing midline. Dr. Cabello , Anesthesiologist in to evaluate patient at bedside discussed case with him. Emergency airway equipment placed at bedside trauma surgery was notified I spoke with Dr. Rangel, patient emergently scheduled for tracheostomy to secure airway. A left radial A-line was placed ABG on 100% nonrebreather was obtained prior to going PaO2 had risen to 60 on nonrebreather mask. 12/21: No acute events overnight. The patient underwent emergency tracheostomy to secure the airway last evening. Norepinephrine and fentanyl infusions have been discontinued this morning patient has been transitioned onto CPAP trials and denies any discomfort. Patient is communicating with board and marker. PEG tube in situ tube feedings Glucerna currently at 30 cc/an hour continue to be advanced to goal. FiO2 has been decreased to .45% 12/22: No acute events overnight. The patient was maintained on CPAP trials throughout the night and this afternoon plan trach collar trials this afternoon PT OT has been initiated. Patient tolerating tube feeds no residuals. 12/23: Patient progressing well currently on trach collar trials greater than 24 hours. Patient tolerating tube feeds diet. Chemotherapy initiated yesterday. Patient denies pain. 12/24: Late entry note patient seen at 11:40 AM. Overnight the patient became agitated pulling off lines and tubes. Patient had previous stated that he has an anxiety disorder ,Xanax was ordered however not given. Upon my evaluation this a.m. O2 saturation noted to be low patient placed on FiO2 of 80% stat ABG was performed to reveal hypoxemia the patient was placed back on CPAP stat chest x-ray was performed which showed worsening airspace disease in the bases. 12/25: Patient noted with episodes of nausea, tube feeds held. Zofran given for nausea. The patient continues to have increased FiO2 requirements the patient is being placed on trach collar during the day CPAP at night. Subjective: 12/26: Vitals not documented. Currently on CPAP 10/5 and 40%. No bowel movements documented. Not on a bowel regimen. Objective Vital Signs / I&O: Vital Signs 12/25/17 16:30 12/25/17 17:00 12/25/17 17:30 Temperature Pulse Rate 87 85 84 Respiratory Rate 45 H 43 H 42 H Blood Pressure 126/62 121/60 117/63 Pulse Oximetry 12/25/17 18:00 12/25/17 18:30 12/25/17 19:00 Temperature Pulse Rate 92 H 89 89 Respiratory Rate 46 H 43 H 31 H Blood Pressure 150/76 H 135/64 112/61 Pulse Oximetry 92 L 94 L 12/25/17 19:30 12/25/17 20:00 12/25/17 20:30 Temperature 97.6 F Pulse Rate 86 85 90 Respiratory Rate 42 H 20 42 H Blood Pressure 100/55 L 105/59 L 124/63 Pulse Oximetry 90 L 12/25/17 21:00 12/25/17 21:30 12/25/17 22:00 Temperature 98.6 F Pulse Rate 89 90 90 Respiratory Rate 38 H 48 H 41 H Blood Pressure 106/56 L 115/61 109/58 L Pulse Oximetry 12/25/17 22:30 12/25/17 22:35 12/25/17 23:00 Temperature Pulse Rate 91 H 93 H Respiratory Rate 46 H 10 L 31 H Blood Pressure 121/61 111/62 Pulse Oximetry 97 93 L 12/25/17 23:31 12/26/17 00:00 12/26/17 00:30 Temperature 98.8 F Pulse Rate 93 H 88 93 H Respiratory Rate 41 H 40 H 30 H Blood Pressure 126/67 109/59 L 120/66 Pulse Oximetry 97 94 L 12/26/17 01:00 12/26/17 01:20 12/26/17 01:30 Temperature Pulse Rate 85 92 H Respiratory Rate 55 H 10 L 26 H Blood Pressure 102/58 L 77/50 L Pulse Oximetry 94 L 93 L 95 12/26/17 01:31 12/26/17 02:00 12/26/17 02:30 Temperature Pulse Rate 90 82 81 Respiratory Rate 20 37 H 38 H Blood Pressure 92/50 L 99/60 L 115/56 L Pulse Oximetry 95 91 L 91 L 12/26/17 03:00 12/26/17 03:30 12/26/17 03:43 Temperature Pulse Rate 82 83 85 Respiratory Rate 53 H 38 H 12 Blood Pressure 102/59 L 110/61 Pulse Oximetry 92 L 92 L 12/26/17 04:00 12/26/17 04:30 12/26/17 04:35 Temperature 98.6 F Pulse Rate 91 H 91 H Respiratory Rate 30 H 22 13 Blood Pressure 119/78 132/76 Pulse Oximetry 94 L 97 98 12/26/17 05:00 12/26/17 05:30 12/26/17 06:00 Temperature Pulse Rate 91 H 94 H 91 H Respiratory Rate 14 22 39 H Blood Pressure 114/65 144/69 H 115/63 Pulse Oximetry 92 L 93 L 93 L 12/26/17 06:30 12/26/17 07:00 12/26/17 08:28 Temperature Pulse Rate 92 H 85 88 Respiratory Rate 31 H 27 H 13 Blood Pressure 122/65 108/59 L Pulse Oximetry 92 L 12/26/17 12:09 12/26/17 15:53 Temperature Pulse Rate Respiratory Rate 14 9 L Blood Pressure Pulse Oximetry 99 Intake & Output 12/25/17 12/26/17 12/26/17 18:59 06:59 18:59 Intake Total 900 / 900 811 / 811 Output Total 1400 / 1400 950 / 950 Balance -500 / -500 -139 / -139 Weight 65 kg Intake: IV 150 / 150 Levaquin 750 mg Premix Inj 150 150 / 150 ML @ 100 mls/hr IV.SIG Q24H [facility] Rx#:[id number] Tube Feeding 750 / 750 291 / 291 Water Bolus Amount 520 / 520 Output: Urine Amount (Catheter) 1400 / 1400 950 / 950 Indwelling Urethral Catheter 1399 / 1400 950 / 950 Result Diagrams: 12/26/17 04:40 12/26/17 04:40 Other Results: Imaging Objective Remarks: Procedures 12/19 PEG tube placed 12/20 Emergency tracheostomy- 8.0 Ayaz Objective Remarks GENERAL: 62-year-old cachectic male in no apparent distress. Communicating in writing. SKIN: Warm and dry. No rash HEAD: Atraumatic. Normocephalic. EYES: Pupils equal and round. No scleral icterus. No injection or drainage. ENT: No nasal bleeding or discharge. Mucous membranes pink and moist. Tongue less edematous protruding from mouth unable to open mouth lips slightly less edematous. Inability to view oral aperture or oral pharynx NECK: Trachea midline. No JVD. Noted right sided neck mass. 8.0 Shiley tracheostomy insitu CARDIOVASCULAR: Normal rate, regular rhythm. Right chest [id number] RESPIRATORY: No accessory muscle use. Clear to auscultation. Breath sounds equal bilaterally. GASTROINTESTINAL: Abdomen soft, non-tender, nondistended. No guarding. PEG tube insitu MUSCULOSKELETAL: Extremities without clubbing, cyanosis, or edema. No obvious deformities. NEUROLOGICAL: GCS 11T Awake and alert. RASS 0. No gross focal/sensory deficits. Follows commands in all 4 extremities. Patient nodding head to yes and no questions, Assessment and Plan - Assessment and Plan Plan: Neuro/Psych: Insomnia Febrile illness-resolved Acetaminophen 650 mg every 6 hours as needed for pain and/or temperature Continue Oxycodone 10 mg q 4HR PRN for pain Alprazolam 0.5 mg every 6 hours as needed for agitation Temazepam 15 mg at night as needed insomnia Respiratory: Ventilator dependent hypoxemic respiratory failure COPD exacerbation Lung mass Head and neck cancer -neck mass Airway compromise Class IV Mallampati rating 12/20 S/P Emergent tracheostomy to secure airway, 8.0 Ayaz 12/21 trach collar trials on .40% initiated. Patient placed back on CPAP 12/24 secondary to hypoxemia and worsening chest x-ray Continue budesonide/formoterol 160/4.5 2 puffs twice daily Albuterol/ipratropium aerosols every 4 hours with albuterol aerosols every 2 hours as indicated for dyspnea Ventilator bundle Patient placed on CPAP 03/31 at 50% trach collar trials during the day Hematology oncology following for chemotherapy 12/22 Patient seen by radiation oncology plan for XRT initiation Cardiovascular: Hypertension Maintain MAP > greater than 65 Patient returned from OR last evening on norepinephrine, discontinued 12/21 /renal: Maintain condom catheter -- Strict I/Os FEN/GI: PEG placement 12/19 Nausea and vomiting Hyponatremia Glucerna 1.5 currently at goal 65 cc/hr. minimal residuals noted. Currently at 30 cc an hour. Dietary consultation Bowel regimen with docusate sodium 100 mg twice daily Currently in free water 200 cc every 8 hours per ID Heme/ID: Head and neck cancer Sepsis Leukocytosis Hematology oncology following-patient was tentatively scheduled for chemotherapy to initiate 12/20-we will follow up the recommendations Patient was initiated on Levaquin and vancomycin on 12/20. Currently on levofloxacin and metronidazole ID following Blood urine and sputum cultures-NGTD WBC downtrending, afebrile Endocrine: Diabetes mellitus Glucose monitoring per ICU protocol beam dose every 6 hours aspart -- SSI Prophylaxis: GI Prophylaxis Lansoprazole DVT Prophylaxis -- SCDs Enoxaparin Lines: Left radial A-line dc'd 12/22, right chest [id number] Dispo: Level 3 followup
[2017-12-26] MEDS ORDERED: Hyoscyamine Liq Drops 0.125 MG/ML 15 ML Bottle SL ONE (16:23)
--- NOTE | 2017-12-26 18:09 | P.PNONC ---
Subjective Interval history: Nonverbal. Gestures crossing fingers to suggest hope. Denies any pain. Objective Vital Signs/Intake & Output: Vital Signs 12/25/17 18:30 12/25/17 19:00 12/25/17 19:30 Temperature Pulse Rate 89 89 86 Respiratory Rate 43 H 31 H 42 H Blood Pressure 135/64 112/61 100/55 L Pulse Oximetry 92 L 94 L 12/25/17 20:00 12/25/17 20:30 12/25/17 21:00 Temperature 97.6 F Pulse Rate 85 90 89 Respiratory Rate 20 42 H 38 H Blood Pressure 105/59 L 124/63 106/56 L Pulse Oximetry 90 L 12/25/17 21:30 12/25/17 22:00 12/25/17 22:30 Temperature 98.6 F Pulse Rate 90 90 91 H Respiratory Rate 48 H 41 H 46 H Blood Pressure 115/61 109/58 L 121/61 Pulse Oximetry 12/25/17 22:35 12/25/17 23:00 12/25/17 23:31 Temperature Pulse Rate 93 H 93 H Respiratory Rate 10 L 31 H 41 H Blood Pressure 111/62 126/67 Pulse Oximetry 97 93 L 12/26/17 00:00 12/26/17 00:30 12/26/17 01:00 Temperature 98.8 F Pulse Rate 88 93 H 85 Respiratory Rate 40 H 30 H 55 H Blood Pressure 109/59 L 120/66 102/58 L Pulse Oximetry 97 94 L 94 L 12/26/17 01:20 12/26/17 01:30 12/26/17 01:31 Temperature Pulse Rate 92 H 90 Respiratory Rate 10 L 26 H 20 Blood Pressure 77/50 L 92/50 L Pulse Oximetry 93 L 95 95 12/26/17 02:00 12/26/17 02:30 12/26/17 03:00 Temperature Pulse Rate 82 81 82 Respiratory Rate 37 H 38 H 53 H Blood Pressure 99/60 L 115/56 L 102/59 L Pulse Oximetry 91 L 91 L 92 L 12/26/17 03:30 12/26/17 03:43 12/26/17 04:00 Temperature 98.6 F Pulse Rate 83 85 91 H Respiratory Rate 38 H 12 30 H Blood Pressure 110/61 119/78 Pulse Oximetry 92 L 94 L 12/26/17 04:30 12/26/17 04:35 12/26/17 05:00 Temperature Pulse Rate 91 H 91 H Respiratory Rate 22 13 14 Blood Pressure 132/76 114/65 Pulse Oximetry 97 98 92 L 12/26/17 05:30 12/26/17 06:00 12/26/17 06:30 Temperature Pulse Rate 94 H 91 H 92 H Respiratory Rate 22 39 H 31 H Blood Pressure 144/69 H 115/63 122/65 Pulse Oximetry 93 L 93 L 12/26/17 07:00 12/26/17 08:28 12/26/17 12:09 Temperature Pulse Rate 85 88 Respiratory Rate 27 H 13 14 Blood Pressure 108/59 L Pulse Oximetry 92 L 12/26/17 15:53 Temperature Pulse Rate Respiratory Rate 9 L Blood Pressure Pulse Oximetry 99 Intake & Output 12/25/17 12/26/17 12/26/17 18:59 06:59 18:59 Intake Total 900 / 900 811 / 811 Output Total 1400 / 1400 950 / 950 Balance -500 / -500 -139 / -139 Weight 65 kg Intake: IV 150 / 150 Levaquin 750 mg Premix Inj 150 150 / 150 ML @ 100 mls/hr IV.SIG Q24H [facility] Rx#:[id number] Tube Feeding 750 / 750 291 / 291 Water Bolus Amount 520 / 520 Output: Urine Amount (Catheter) 1400 / 1400 950 / 950 Indwelling Urethral Catheter 1400 / 1400 950 / 950 Result Diagrams: 12/26/17 04:40 12/26/17 04:40 Laboratory Results: Laboratory Results - last 24 hr 12/25/17 12/26/17 12/26/17 21:19 04:40 04:40 WBC 19.3 H RBC 3.80 L Hgb 10.7 L Hct 33.5 L MCV 88.2 MCH 28.3 MCHC 32.0 RDW 15.5 Plt Count 322 MPV 9.2 Neut % (Auto) 82.0 H Lymph % (Auto) 10.9 [place] % (Auto) 6.0 Eos % (Auto) 1.0 Baso % (Auto) 0.1 Neut # (Auto) 15.8 H Lymph # (Auto) 2.1 [place] # (Auto) 1.2 H Eos # (Auto) 0.2 Baso # (Auto) 0.0 WBC Differential . Differential Comment Auto diff final Sodium 132 L Potassium 4.7 Chloride 91 L Carbon Dioxide 35.0 H Anion Gap 6 BUN 20 H Creatinine 0.35 L Estimated GFR Greater than 89 POC Glucose 165 H Random Glucose 193 H Calcium 8.9 12/26/17 12/26/17 12/26/17 07:59 12:47 18:01 WBC RBC Hgb Hct MCV MCH MCHC RDW Plt Count MPV Neut % (Auto) Lymph % (Auto) [place] % (Auto) Eos % (Auto) Baso % (Auto) Neut # (Auto) Lymph # (Auto) [place] # (Auto) Eos # (Auto) Baso # (Auto) WBC Differential Differential Comment Sodium Potassium Chloride Carbon Dioxide Anion Gap BUN Creatinine Estimated GFR POC Glucose 213 H 183 H 204 H Random Glucose Calcium Medications: Active Medications Generic Name Dose Route Start Last Admin Trade Name Freq PRN Reason Stop Dose Admin Budesonide/Formoterol Fumarate 2 puff 12/25/17 09:00 12/26/17 10:04 Symbicort 160/4.5 Mcg Inh INH Not Given BID BRENDEN Chlorhexidine Gluconate 15 ml 12/25/17 09:00 12/26/17 09:22 Peridex 0.12% Liq SWISH-SPIT Not Given BID BRENDEN Enoxaparin Sodium 30 mg 12/25/17 11:00 12/26/17 12:09 Lovenox Inj SQ 30 mg Q24H BRENDEN Administration Levofloxacin/Dextrose 150 mls @ 100 mls/hr 12/25/17 15:00 12/26/17 15:40 Levaquin 750 Mg Premix Inj IV.SIG 100 mls/hr Q24H BRENDEN Administration Metronidazole 500 mg 12/25/17 06:00 12/26/17 13:28 Flagyl PO 500 mg Q8HR BERNDEN Administration Oxycodone HCl 10 mg 12/25/17 00:01 12/26/17 15:40 Roxicodone PO 10 mg Q4H PRN Administration Pain Scale 3 to 5 Sodium Chloride 2 ml 12/25/17 09:00 12/26/17 09:22 Ns Flush IV.FLUSH 2 ml BID BRENDEN Administration Sterile Water 200 ml 12/25/17 06:00 12/26/17 13:28 Free Water G-TUBE 200 ml Q8HR BRENDEN Administration Temazepam 15 mg 12/25/17 18:35 12/26/17 00:52 Restoril NG/OG 15 mg HS PRN Administration INSOMNIA Objective Remarks: GENERAL: Cachectic tired appearing man, well-developed patient. SKIN: Warm and dry. HEAD: Normocephalic. Large right neck mass, larger than previous exam. Tongue protrusion worsened compared to previous exam. Increase salivation. EYES: No scleral icterus. No injection or drainage. NECK: Supple, tracheostomy in place. No JVD or lymphadenopathy. LYMPHATIC: No adenopathy. CARDIOVASCULAR: Regular rate and rhythm without murmurs. RESPIRATORY: Breath sounds equal bilaterally. No accessory muscle use. GASTROINTESTINAL: Abdomen soft, non-tender, nondistended. PEG tube in place. EXTREMITIES: No cyanosis, or edema. MUSCULOSKELETAL: Adequate muscle tone. NEUROLOGICAL: No obvious focal deficit. Awake, alert, and oriented x3. Assessment/Plan (1) Squamous cell carcinoma of head and neck Code(s): C76.0 - Malignant neoplasm of head, face and neck Status: Acute - Plan Mr. 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 He had right cervical and submandibular lymphadenopathy. He was originally found to have a T3, N2 C, M0 stage IV a head neck cancer. He had significant delay in his treatment coordinated by the [facility]. He presented acutely symptomatic from a large right neck and base of tongue/tonsil mass. CT the soft tissue the neck shows large tumor mass involving the tongue and right side of the pharynx. He does have necrotic right-sided cervical chain adenopathy. He has evidence of metastatic disease. Palliative chemotherapy was started promptly to alleviate his symptoms. His treatment is being coordinated by radiation oncology. He was given palliative chemotherapy with carboplatin and Taxol with seemingly transient responsive. He tolerated the chemotherapy well with subsequent decrease in the size of the neck mass and less protrusion of the tongue. He appears clinically worse today. 1. Monitor for toxicity from carboplatin and paclitaxel, next dose 12/29/17 2. Continue supportive care 3. Monitor CBC, CMP 4. Radiation oncology for simulation.
[2017-12-26] MEDS: Artificial Tears Opth Drops 15 ML Bottle EACH EYE SCH (18:45)
[2017-12-26] MEDS: Docusate Sodium Liq 100 MG/10 ML UDC G-TUBE SCH (21:13)
[2017-12-27] MEDS: Artificial Tears Opth Drops 15 ML Bottle EACH EYE SCH ×3 (01:29→17:09)
[2017-12-27] MEDS: ALPRAZolam 0.5 MG Tablet G-TUBE PRN (04:12)
--- NOTE | 2017-12-27 05:00 | XR ---
EXAM DATE: 12/27/2017 4:30 AM EDT AGE/SEX: 62 years / Male INDICATIONS: Short of breath. CLINICAL DATA: This is the patient's subsequent encounter. Patient reports that signs and symptoms h ave been present for 2 weeks and indicates a pain score of 0/10. MEDICAL/SURGICAL HISTORY: Cardiovascular disease. Hypertension. Gastroesophageal reflux diseas e. throat cancer, diabetes, atrial fibrillation. Non-responsive. COMPAR[place]: [facility] [place] 1[place] S[place], 12/25/2017. . FINDINGS: Tracheostomy in place. Puayun-a-Dwiw catheter tip at the cavoatrial junction. Persistent patchy areas of opacity in the left lower lung causing loss of delineation of a portion of the left hemidiaphragm . The right lung remains clear. No evidence of pneumothorax. The heart is normal size. CONCLUSION: Persistent nonconsolidative airspace infiltrates in the left lower lung. Electronically signed by: Anibal Álvarez MD 12/27/2017 4:59 AM EDT
[2017-12-27] MEDS: metroNIDAZOLE 500 MG Tablet PO SCH ×3 (06:23→21:12)
[2017-12-27] MEDS: Insulin NovoLOG Aspart Correctional Sugar Inj SQ SCH ×3 (06:24→17:50)
[2017-12-27] MEDS: Acetaminophen 325 MG Tablet PO PRN ×2 (07:51→14:26)
[2017-12-27] MEDS: Budesonide-Formoterol 160/4.5 MCG 6 GM Inhaler INH SCH ×2 (09:22→21:12)
[2017-12-27] MEDS: Chlorhexidine Gluconate 0.12% Liq 15 ML UDC SWISH-SPIT SCH ×2 (09:23→21:13)
[2017-12-27] MEDS: Docusate Sodium Liq 100 MG/10 ML UDC G-TUBE SCH ×2 (09:23→21:12)
--- NOTE | 2017-12-27 10:04 | P.DIET ---
Nutritional Evaluation Type of nutrition evaluation: follow-up Nutrition consult regarding: Tube Feeding Screening comments: 12/26 [facility] [place] TF Objective - Diagnosis Hypokalemia - Indications of Malnutrition Classification: Chronic disease or injury-related Malnutrition Characteristics: Weight loss, Insufficient energy intake, Muscle loss - Objective % IBW: 75 Body Weight Used for Calculations: IBW Energy Needs - Lower Range (kCal/kg): 30 Energy Needs - Upper Range (kCal/kg): 35 Lower Limit kCal/kg (kCals): 2,430 Upper Limit kCal/kg (kCals): 2,835 Lower Limit Protein Factor (Grams per Kg): 1.2 Upper Limit Protein Factor (Grams per Kg): 1.5 Lower Protein Needs (Protein): 97 Upper Protein Needs (Protein): 122 Dietitian Reviewed in Medical Record: Curent medications, Intake & Output, Labs , Medical history Diet Order: TF only Objective Comments: Nutritional needs based on IBW (81kg) PMH: 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 Pt is s/p PEG and emergency trach. Pt with head and neck CA, chemo has been initiated. Noted pt on Reglan, Zofran and now a bowel regimen. TF Glucerna 1.5 is currently running at 30 ml/hr. A goal rate of 65 ml/hr is adequate to meet pt's nutritional needs providing 2340 kcals, 129 gms protein and 1184 mls free water. Noted pt is on trach during the day and CPAP at night. Will monitor TF tolerance, clinical course. Recommendations: TF Glucerna 1.5 with goal rate 65 ml/hr Dietitian to monitor TF, clinical course. Dietitian to Monitor: Lab values, Intake & Output, Tube feeding tolerance, Weight change, Medical course
[2017-12-27] MEDS: Enoxaparin Inj 30 MG/0.3 ML Syringe SQ SCH (12:03)
[2017-12-27 12:48] LABS: Baso # (Auto) 0.1 th/mm3 (0.0-0.2); Baso % (Auto) 0.4 % (0.0-2.0); Eos # (Auto) 0.2 th/mm3 (0.0-0.4); Eos % (Auto) 1.1 % (0.0-4.0); Hematocrit 32.4 % (39.0-51.0); Hemoglobin 10.8 gm/dL (13.0-17.0); Lymph # (Auto) 1.8 th/mm3 (1.0-4.8); Lymph % (Auto) 9.3 % (9.0-44.0); Mean Corpuscular HGB Conc 33.2 % (32.0-36.0); Mean Corpuscular Hemoglobin 29.2 pg (27.0-34.0); Mean Corpuscular Volume 87.7 fL (80.0-100.0); Mean Platelet Volume 8.8 fL (7.0-11.0); Mono # (Auto) 1.7 th/mm3 (0.0-0.9); Mono % (Auto) 8.6 % (0.0-8.0); Neut # (Auto) 15.5 th/mm3 (1.8-7.7); Neut % (Auto) 80.6 % (16.0-70.0); Platelet Count 358 th/mm3 (150-450); Red Blood Count 3.69 mil/mm3 (4.50-5.90); Red Cell Distribution Width 15.7 % (11.6-17.2); White Blood Count 19.2 th/mm3 (4.0-11.0)
[2017-12-27 13:09] LABS: Albumin 2.5 g/dL (3.4-5.0); Anion Gap 9 meq/L (5-15); Aspartate Aminotransferase 10 U/L (15-37); Blood Urea Nitrogen 19 mg/dL (7-18); Calcium 9.2 mg/dL (8.5-10.1); Carbon Dioxide 30.9 meq/L (21.0-32.0); Chloride 91 meq/L (98-107); Glomerular Filtration Rate Greater Than 89 mL/min (>89); Glucose,Random 190 mg/dL (74-106); Magnesium 2.1 mg/dL (1.5-2.5); Potassium 4.2 meq/L (3.5-5.1); Sodium 131 meq/L (136-145)
[2017-12-27 13:10] LABS: Alanine Aminotransferase 11 U/L (12-78); Phosphorus 4.2 mg/dL (2.5-4.9)
[2017-12-27 13:13] LABS: Alkaline Phosphatase 99 U/L (45-117)
--- NOTE | 2017-12-27 15:14 | P.PNCC ---
Subjective Subjective Remarks/Hospital Course: Remarks/Hospital Course This is a 62-year-old male with a past medical history of squamous cell carcinoma of the head and neck, lung mass COPD, hypertension diabetes with a history of tobacco abuse, that presented on 12/18. The patient regularly is seen at the [facility] however he was not afforded treatment at this time . The patient was admitted to the medical floor, hematology oncology had been consulted plans were for chemotherapy to be initiated today the patient underwent PEG placement yesterday. Late this afternoon the patient was noted to be hypoxemic with significant airway edema , O2 sat in the 80's, Pao2 59 on 100% nonrebreather ,in the setting of a large tumor mass .A Halicat was called , and the patient was emergently transferred to [facility]. Upon transfer the patient was immediately out evaluated and noted to be in significant respiratory distress, oral airway significantly edematous tongue protruding out of mouth Mallampati unobtainable upon evaluation. The patient appeared to be alert and could not yes and no to questions unable to speak. Quick assessment of CT scans that were previously done of the neck showed a large tumor mass crossing midline. Dr. Cabello , Anesthesiologist in to evaluate patient at bedside discussed case with him. Emergency airway equipment placed at bedside trauma surgery was notified I spoke with Dr. Rangel, patient emergently scheduled for tracheostomy to secure airway. A left radial A-line was placed ABG on 100% nonrebreather was obtained prior to going PaO2 had risen to 60 on nonrebreather mask. 12/21: No acute events overnight. The patient underwent emergency tracheostomy to secure the airway last evening. Norepinephrine and fentanyl infusions have been discontinued this morning patient has been transitioned onto CPAP trials and denies any discomfort. Patient is communicating with board and marker. PEG tube in situ tube feedings Glucerna currently at 30 cc/an hour continue to be advanced to goal. FiO2 has been decreased to .45% 12/22: No acute events overnight. The patient was maintained on CPAP trials throughout the night and this afternoon plan trach collar trials this afternoon PT OT has been initiated. Patient tolerating tube feeds no residuals. 12/23: Patient progressing well currently on trach collar trials greater than 24 hours. Patient tolerating tube feeds diet. Chemotherapy initiated yesterday. Patient denies pain. 12/24: Late entry note patient seen at 11:40 AM. Overnight the patient became agitated pulling off lines and tubes. Patient had previous stated that he has an anxiety disorder ,Xanax was ordered however not given. Upon my evaluation this a.m. O2 saturation noted to be low patient placed on FiO2 of 80% stat ABG was performed to reveal hypoxemia the patient was placed back on CPAP stat chest x-ray was performed which showed worsening airspace disease in the bases. 12/25: Patient noted with episodes of nausea, tube feeds held. Zofran given for nausea. The patient continues to have increased FiO2 requirements the patient is being placed on trach collar during the day CPAP at night. Subjective: 12/26: Vitals not documented. Currently on CPAP 10/5 and 40%. No bowel movements documented. Not on a bowel regimen. 12/27: Remains on mechanical ventilation via tracheostomy. On CPAP trials. Objective Vital Signs / I&O: Vital Signs 12/26/17 15:30 12/26/17 15:53 12/26/17 16:00 Temperature 97.6 F Pulse Rate 111 H 104 H Respiratory Rate 23 9 L 15 Blood Pressure 155/78 H 104/59 L Pulse Oximetry 100 99 97 12/26/17 16:30 12/26/17 17:00 12/26/17 17:01 Temperature Pulse Rate 102 H 103 H 105 H Respiratory Rate 20 24 28 H Blood Pressure 99/62 L 138/62 Pulse Oximetry 94 L 98 97 12/26/17 17:30 12/26/17 18:00 12/26/17 18:30 Temperature Pulse Rate 105 H 103 H 101 H Respiratory Rate 18 34 H 28 H Blood Pressure 115/59 L 103/59 L 102/56 L Pulse Oximetry 95 94 L 92 L 12/26/17 19:00 12/26/17 19:17 12/26/17 19:30 Temperature Pulse Rate 104 H 104 H Respiratory Rate 17 12 19 Blood Pressure 100/58 L 98/57 L Pulse Oximetry 94 L 94 L 93 L 12/26/17 20:00 12/26/17 20:30 12/26/17 21:00 Temperature 99 F Pulse Rate 102 H 103 H 101 H Respiratory Rate 16 18 16 Blood Pressure 90/55 L 90/55 L 93/56 L Pulse Oximetry 93 L 94 L 12/26/17 21:30 12/26/17 22:00 12/26/17 22:30 Temperature Pulse Rate 100 H 97 H 96 H Respiratory Rate 42 H 39 H 47 H Blood Pressure 106/61 112/62 115/62 Pulse Oximetry 94 L 93 L 95 12/26/17 23:00 12/26/17 23:30 12/27/17 00:00 Temperature 98.7 F Pulse Rate 95 H 96 H 94 H Respiratory Rate 37 H 38 H 18 Blood Pressure 107/59 L 115/61 110/59 L Pulse Oximetry 90 L 90 L 97 12/27/17 00:12 12/27/17 04:00 12/27/17 04:19 Temperature 97.9 F Pulse Rate 94 H 62 91 H Respiratory Rate 13 14 12 Blood Pressure 122/62 Pulse Oximetry 96 96 12/27/17 04:22 12/27/17 08:00 12/27/17 08:24 Temperature 98 F Pulse Rate 85 86 Respiratory Rate 12 23 12 Blood Pressure 88/56 L Pulse Oximetry 96 93 L 96 12/27/17 11:43 12/27/17 12:00 Temperature 98.3 F Pulse Rate 100 H 102 H Respiratory Rate 11 L Blood Pressure 120/63 Pulse Oximetry 96 96 Intake & Output 12/26/17 12/27/17 12/27/17 18:59 06:59 18:59 Intake Total 961 / 961 816 / 816 Output Total 950 / 950 800 / 800 Balance 16 16 Weight 64 kg Intake: IV 150 / 150 Levaquin 750 mg Premix Inj 150 150 / 150 ML @ 100 mls/hr IV.SIG Q24H [facility] Rx#:[id number] Tube Feeding 291 / 291 316 / 316 Water Bolus Amount 520 / 520 500 / 500 Output: Urine Amount (Catheter) 950 / 950 800 / 800 Indwelling Urethral Catheter 950 / 950 800 / 800 Other: # Bowel Movements 0 Result Diagrams: 12/27/17 12:30 12/27/17 12:30 Objective Remarks: Procedures 12/19 PEG tube placed 12/20 Emergency tracheostomy- 8.0 Ayaz Objective Remarks GENERAL: 62-year-old cachectic male in no apparent distress. Communicating in writing. SKIN: Warm and dry. No rash HEAD: Atraumatic. Normocephalic. EYES: Pupils equal and round. No scleral icterus. No injection or drainage. ENT: No nasal bleeding or discharge. Mucous membranes pink and moist. Tongue less edematous protruding from mouth unable to open mouth lips slightly less edematous. Inability to view oral aperture or oral pharynx NECK: Trachea midline. No JVD. Noted right sided neck mass. 8.0 Shiley tracheostomy insitu CARDIOVASCULAR: Normal rate, regular rhythm. Right chest [id number] RESPIRATORY: No accessory muscle use. Clear to auscultation. Breath sounds equal bilaterally. GASTROINTESTINAL: Abdomen soft, non-tender, nondistended. No guarding. PEG tube insitu MUSCULOSKELETAL: Extremities without clubbing, cyanosis, or edema. No obvious deformities. NEUROLOGICAL: GCS 11T Awake and alert. RASS 0. No gross focal/sensory deficits. Follows commands in all 4 extremities. Patient nodding head to yes and no questions, Assessment and Plan - Assessment and Plan Plan: Neuro/Psych: Insomnia Febrile illness-resolved Acetaminophen 650 mg every 6 hours as needed for pain and/or temperature Continue Oxycodone 10 mg q 4HR PRN for pain Alprazolam 0.5 mg every 6 hours as needed for agitation Temazepam 15 mg at night as needed insomnia Respiratory: Ventilator dependent hypoxemic respiratory failure COPD exacerbation Lung mass Head and neck cancer -neck mass Airway compromise Class IV Mallampati rating 12/20 S/P Emergent tracheostomy to secure airway, 8.0 Shiley 12/21 trach collar trials on .40% initiated. Patient placed back on CPAP 12/24 secondary to hypoxemia and worsening chest x-ray Continue budesonide/formoterol 160/4.5 2 puffs twice daily Albuterol/ipratropium aerosols every 4 hours with albuterol aerosols every 2 hours as indicated for dyspnea Ventilator bundle Patient placed on CPAP 03/31 at 50% trach collar trials during the day Hematology oncology following for chemotherapy 12/22 Patient seen by radiation oncology plan for XRT initiation Cardiovascular: Hypertension Maintain MAP > greater than 65 Patient returned from OR last evening on norepinephrine, discontinued 12/21 /renal: Maintain condom catheter -- Strict I/Os FEN/GI: PEG placement 12/19 Nausea and vomiting Hyponatremia Glucerna 1.5 currently at goal 65 cc/hr. minimal residuals noted. Currently at 30 cc an hour. Dietary consultation Bowel regimen with docusate sodium 100 mg twice daily Currently in free water 200 cc every 8 hours per ID Heme/ID: Head and neck cancer Sepsis Leukocytosis Hematology oncology following-patient was tentatively scheduled for chemotherapy to initiate 12/20-we will follow up the recommendations Patient was initiated on Levaquin and vancomycin on 12/20. Currently on levofloxacin and metronidazole ID following Blood urine and sputum cultures-NGTD WBC downtrending, afebrile Endocrine: Diabetes mellitus Glucose monitoring per ICU protocol beam dose every 6 hours aspart -- SSI Prophylaxis: GI Prophylaxis Lansoprazole DVT Prophylaxis -- SCDs Enoxaparin Lines: Left radial A-line dc'd 12/22, right chest [id number] Dispo: Level 3 followup
[2017-12-27] MEDS: Morphine Inj 4 MG/ML Vial IV.PUSH PRN ×2 (17:09→23:19)
--- NOTE | 2017-12-27 19:05 | P.PNPL ---
Subjective Interval history: 62 YOWm with H&N ca, RF, s/p emergent trach On Vent PSV, requiring fi02 50% tongue protuding Awake follows commands Denies pain Physical Exam Vital signs: Vital Signs 12/26/17 19:17 12/26/17 19:30 12/26/17 20:00 Temperature 99 F Pulse Rate 104 H 102 H Respiratory Rate 12 19 16 Blood Pressure 98/57 L 90/55 L Pulse Oximetry 94 L 93 L 93 L 12/26/17 20:30 12/26/17 21:00 12/26/17 21:30 Temperature Pulse Rate 103 H 101 H 100 H Respiratory Rate 18 16 42 H Blood Pressure 90/55 L 93/56 L 106/61 Pulse Oximetry 94 L 94 L 12/26/17 22:00 12/26/17 22:30 12/26/17 23:00 Temperature Pulse Rate 97 H 96 H 95 H Respiratory Rate 39 H 47 H 37 H Blood Pressure 112/62 115/62 107/59 L Pulse Oximetry 93 L 95 90 L 12/26/17 23:30 12/27/17 00:00 12/27/17 00:12 Temperature 98.7 F Pulse Rate 96 H 94 H 94 H Respiratory Rate 38 H 18 13 Blood Pressure 115/61 110/59 L Pulse Oximetry 90 L 97 96 12/27/17 04:00 12/27/17 04:19 12/27/17 04:22 Temperature 97.9 F Pulse Rate 62 91 H Respiratory Rate 14 12 12 Blood Pressure 122/62 Pulse Oximetry 96 96 12/27/17 08:00 12/27/17 08:24 12/27/17 11:43 Temperature 98 F Pulse Rate 85 86 100 H Respiratory Rate 23 12 11 L Blood Pressure 88/56 L Pulse Oximetry 93 L 96 96 12/27/17 12:00 12/27/17 16:00 12/27/17 16:05 Temperature 98.3 F 98.4 F Pulse Rate 102 H 94 H 94 H Respiratory Rate 17 11 L Blood Pressure 120/63 81/53 L Pulse Oximetry 96 100 97 Intake & Output 12/27/17 12/27/17 12/28/17 06:59 18:59 06:59 Intake Total 1848 / 1848 Output Total 800 / 800 Balance 1048 / 1048 Weight 64 kg Intake: Tube Feeding 628 / 628 Tube Irrigant 600 / 600 Water Bolus Amount 620 / 620 Output: Urine Amount (Catheter) 800 / 800 Indwelling Urethral Catheter 800 / 800 Other: Bladder Irrigation Fluid - Amount Drained Indwelling Urethral Catheter 1,150 # Bowel Movements 0 GENERAL: SKIN: Warm and dry. HEAD: Normocephalic. EYES: No scleral icterus. No injection or drainage. NECK: Supple, trachea midline. No JVD or lymphadenopathy. large neck mass trach in place CARDIOVASCULAR: Regular rate and rhythm without murmurs, gallops, or rubs. RESPIRATORY: Breath sounds equal bilaterally. No accessory muscle use. GASTROINTESTINAL: Abdomen soft, non-tender, nondistended. has PEG tube MUSCULOSKELETAL: No cyanosis, or edema. BACK: Nontender without obvious deformity. No CVA tenderness. - Urinary Catheter Management Indwelling Urethral Catheter Cath placed during this visit: yes Reason for continuing: Hourly intake/output Insertion date: 12/20/17 Insertion time: 00:00 Assessment and Plan - Plan Resp failure S/P Emergent trach Neck Mass H&N Ca COPD PLAN: Cont Vent Support, PSV Fio2 50% Aerosol nebs cont Abx Tube feeding
[2017-12-27] MEDS: Temazepam 15 MG Capsule NG/OG PRN (22:25)
[2017-12-28] MEDS: Insulin NovoLOG Aspart Correctional Sugar Inj SQ SCH ×4 (00:18→18:35)
[2017-12-28] MEDS: Artificial Tears Opth Drops 15 ML Bottle EACH EYE SCH ×3 (00:18→18:35)
[2017-12-28] MEDS: Morphine Inj 4 MG/ML Vial IV.PUSH PRN ×5 (03:19→22:32)
[2017-12-28] MEDS: metroNIDAZOLE 500 MG Tablet PO SCH ×3 (06:10→22:32)
--- NOTE | 2017-12-28 08:44 | P.PNONC ---
Subjective Interval history: Afebrile overnight. patient resting in bed. reports he continues to have pain in his mouth. states the morphine helps but not enough. per nurse, patient has appeared comfortable and feels he would do better with a smaller dose of morphine but increased frequency. patient communicates with pen and paper. we discuss giving next dose of chemotherapy tomorrow. he is agreeable with that. Objective Vital Signs/Intake & Output: Vital Signs 12/27/17 11:43 12/27/17 12:00 12/27/17 16:00 Temperature 98.3 F 98.4 F Pulse Rate 100 H 102 H 94 H Respiratory Rate 11 L 17 Blood Pressure 120/63 81/53 L Pulse Oximetry 96 96 100 12/27/17 16:05 12/27/17 20:00 12/27/17 20:52 Temperature 98.4 F Pulse Rate 94 H 99 H Respiratory Rate 11 L 14 10 L Blood Pressure 98/58 L Pulse Oximetry 97 99 98 12/28/17 00:00 12/28/17 00:12 12/28/17 04:00 Temperature 98.7 F 98.7 F Pulse Rate 91 H 70 Respiratory Rate 20 6 L 16 Blood Pressure 117/86 94/64 L Pulse Oximetry 98 98 94 L 12/28/17 04:34 12/28/17 07:00 Temperature Pulse Rate 84 Respiratory Rate 11 L 12 Blood Pressure Pulse Oximetry 98 Intake & Output 12/27/17 12/28/17 12/28/17 18:59 06:59 18:59 Intake Total 1848 / 1848 750 / 750 Output Total 800 / 800 800 / 800 Balance 1048 / 1048 -50 / -50 Weight 63 kg Intake: Tube Feeding 628 / 628 350 / 350 Tube Irrigant 600 / 600 Water Bolus Amount 620 / 620 400 / 400 Output: Urine Amount (Catheter) 800 / 800 800 / 800 Indwelling Urethral Catheter 800 / 800 800 / 800 Other: Bladder Irrigation Fluid - Amount Drained Indwelling Urethral Catheter 1,150 # Bowel Movements 0 0 Result Diagrams: 12/27/17 12:30 12/27/17 12:30 Laboratory Results: Laboratory Results - last 24 hr 12/27/17 12/27/17 12/27/17 11:58 12:30 12:30 WBC 19.2 H RBC 3.69 L Hgb 10.8 L Hct 32.4 L MCV 87.7 MCH 29.2 MCHC 33.2 RDW 15.7 Plt Count 358 MPV 8.8 Neut % (Auto) 80.6 H Lymph % (Auto) 9.3 [place] % (Auto) 8.6 H Eos % (Auto) 1.1 Baso % (Auto) 0.4 Neut # (Auto) 15.5 H Lymph # (Auto) 1.8 [place] # (Auto) 1.7 H Eos # (Auto) 0.2 Baso # (Auto) 0.1 WBC Differential . Differential Comment Auto diff final Sodium 131 L Potassium 4.2 Chloride 91 L Carbon Dioxide 30.9 Anion Gap 9 BUN 19 H Creatinine 0.41 L Estimated GFR Greater than 89 POC Glucose 229 H Random Glucose 190 H Calcium 9.2 Phosphorus 4.2 Magnesium 2.1 Total Bilirubin 0.5 AST 10 L ALT 11 L Alkaline Phosphatase 99 Total Protein 6.0 L Albumin 2.5 L 12/27/17 12/27/17 12/28/17 17:41 23:24 06:04 WBC RBC Hgb Hct MCV MCH MCHC RDW Plt Count MPV Neut % (Auto) Lymph % (Auto) [place] % (Auto) Eos % (Auto) Baso % (Auto) Neut # (Auto) Lymph # (Auto) [place] # (Auto) Eos # (Auto) Baso # (Auto) WBC Differential Differential Comment Sodium Potassium Chloride Carbon Dioxide Anion Gap BUN Creatinine Estimated GFR POC Glucose 278 H 127 H 188 H Random Glucose Calcium Phosphorus Magnesium Total Bilirubin AST ALT Alkaline Phosphatase Total Protein Albumin Medications: Active Medications Generic Name Dose Route Start Last Admin Trade Name Freq PRN Reason Stop Dose Admin Acetaminophen 650 mg 12/25/17 00:01 12/27/17 14:26 Tylenol PO 650 mg Q6H PRN Administration FEVER/PAIN SCALE 1 to 2 Albuterol 1 ampul 12/26/17 20:00 12/28/17 08:31 Duoneb Neb (Alfred) NEB 1 ampul Q4HR NEB ALFRED Administration Alprazolam 0.5 mg 12/25/17 00:01 12/27/17 04:12 Xanax G-TUBE 0.5 mg Q6H PRN Administration Anxiety/Agitation Artificial Tears 1 drop 12/26/17 17:00 12/28/17 00:18 Tears Naturale Opth Drops EACH EYE Not Given Q8H ALFRED Budesonide/Formoterol Fumarate 2 puff 12/25/17 09:00 12/27/17 21:12 Symbicort 160/4.5 Mcg Inh INH Not Given BID [facility] Chlorhexidine Gluconate 15 ml 12/25/17 09:00 12/27/17 21:13 Peridex 0.12% Liq SWISH-SPIT Not Given BID [facility] Docusate Sodium 100 mg 12/26/17 21:00 12/27/17 21:12 Colace Liq G-TUBE 100 mg BID ALFRED Administration Enoxaparin Sodium 30 mg 12/25/17 11:00 12/27/17 12:03 Lovenox Inj SQ 30 mg Q24H ALFRED Administration Levofloxacin/Dextrose 150 mls @ 100 mls/hr 12/25/17 15:00 12/27/17 14:27 Levaquin 750 Mg Premix Inj IV.SIG 100 mls/hr Q24H ALFRED Administration Insulin Aspart 0 unit 12/26/17 18:00 12/28/17 06:10 Novolog Insulin Suppl Scale Inj SQ 2 unit Q6HR ALFRED Administration Protocol Lansoprazole 30 mg 12/27/17 09:00 12/27/17 09:23 Prevacid Solutab NG/OG 30 mg DAILY ALFRED Administration Metronidazole 500 mg 12/25/17 06:00 12/28/17 06:10 Flagyl PO 500 mg Q8HR ALFRED Administration Oxycodone HCl 10 mg 12/25/17 00:01 12/28/17 06:10 Roxicodone PO 10 mg Q4H PRN Administration Pain Scale 3 to 5 Sodium Chloride 2 ml 12/25/17 09:00 12/27/17 21:13 Ns Flush IV.FLUSH 2 ml BID ALFRED Administration Sterile Water 200 ml 12/25/17 06:00 12/28/17 06:11 Free Water G-TUBE 200 ml Q8HR ALFRED Administration Temazepam 15 mg 12/25/17 18:35 12/27/17 22:25 Restoril NG/OG 15 mg HS PRN Administration INSOMNIA Objective Remarks: GENERAL: Chronically ill appearing middle aged male, sitting up in bed in [facility]. SKIN: Warm and dry. HEAD: Normocephalic. +tongue protrusion EYES: No scleral icterus. No injection or drainage. NECK: Supple, tracheostomy in place. +large right neck mass. CARDIOVASCULAR: Regular rate and rhythm RESPIRATORY: Breath sounds equal bilaterally. No accessory muscle use. GASTROINTESTINAL: Abdomen soft, non-tender, nondistended. PEG tube in place. EXTREMITIES: No cyanosis NEUROLOGICAL: awake and alert. 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 A delay in his treatment coordinated by the [facility] resulted in his presentation to this hospital with a symptomatic large right neck and base of tongue/tonsil mass. s/p first dose of chemotherapy with carbo/taxol 12/22. Plan: 1. give second dose of chemotherapy with carbo/taxol tomorrow, 12/29 2. will order AM labs tomorrow. - Attending Statement The exam, history, and the medical decision-making described in the above note were completed with the assistance of the mid-level provider. I reviewed and agree with the findings presented. I attest that I had a [id number] encounter with the patient on the same day, and personally performed and documented my assessment and findings in the medical record. Sleepy but arousable. Right neck mass and tongue protrusion worse-concern for lack of response to the treatment. We will need to monitor for second week of treatment. I explained palliative chemotherapy tomorrow carboplatin and Taxol. He gives a thumbs up. Proceed with treatment as planned. Continue support.
[2017-12-28] MEDS: Docusate Sodium Liq 100 MG/10 ML UDC G-TUBE SCH ×2 (09:48→20:26)
[2017-12-28] MEDS: Budesonide-Formoterol 160/4.5 MCG 6 GM Inhaler INH SCH ×2 (09:50→22:34)
[2017-12-28] MEDS: Chlorhexidine Gluconate 0.12% Liq 15 ML UDC SWISH-SPIT SCH ×2 (09:50→20:27)
--- NOTE | 2017-12-28 11:21 | P.PNCC ---
Subjective Subjective Remarks/Hospital Course: Remarks/Hospital Course This is a 62-year-old male with a past medical history of squamous cell carcinoma of the head and neck, lung mass COPD, hypertension diabetes with a history of tobacco abuse, that presented on 12/18. The patient regularly is seen at the [facility] however he was not afforded treatment at this time . The patient was admitted to the medical floor, hematology oncology had been consulted plans were for chemotherapy to be initiated today the patient underwent PEG placement yesterday. Late this afternoon the patient was noted to be hypoxemic with significant airway edema , O2 sat in the 80's, Pao2 59 on 100% nonrebreather ,in the setting of a large tumor mass .A Halicat was called , and the patient was emergently transferred to [facility]. Upon transfer the patient was immediately out evaluated and noted to be in significant respiratory distress, oral airway significantly edematous tongue protruding out of mouth Mallampati unobtainable upon evaluation. The patient appeared to be alert and could not yes and no to questions unable to speak. Quick assessment of CT scans that were previously done of the neck showed a large tumor mass crossing midline. Dr. Cabello , Anesthesiologist in to evaluate patient at bedside discussed case with him. Emergency airway equipment placed at bedside trauma surgery was notified I spoke with Dr. Rangel, patient emergently scheduled for tracheostomy to secure airway. A left radial A-line was placed ABG on 100% nonrebreather was obtained prior to going PaO2 had risen to 60 on nonrebreather mask. 12/21: No acute events overnight. The patient underwent emergency tracheostomy to secure the airway last evening. Norepinephrine and fentanyl infusions have been discontinued this morning patient has been transitioned onto CPAP trials and denies any discomfort. Patient is communicating with board and marker. PEG tube in situ tube feedings Glucerna currently at 30 cc/an hour continue to be advanced to goal. FiO2 has been decreased to .45% 12/22: No acute events overnight. The patient was maintained on CPAP trials throughout the night and this afternoon plan trach collar trials this afternoon PT OT has been initiated. Patient tolerating tube feeds no residuals. 12/23: Patient progressing well currently on trach collar trials greater than 24 hours. Patient tolerating tube feeds diet. Chemotherapy initiated yesterday. Patient denies pain. 12/24: Late entry note patient seen at 11:40 AM. Overnight the patient became agitated pulling off lines and tubes. Patient had previous stated that he has an anxiety disorder ,Xanax was ordered however not given. Upon my evaluation this a.m. O2 saturation noted to be low patient placed on FiO2 of 80% stat ABG was performed to reveal hypoxemia the patient was placed back on CPAP stat chest x-ray was performed which showed worsening airspace disease in the bases. 12/25: Patient noted with episodes of nausea, tube feeds held. Zofran given for nausea. The patient continues to have increased FiO2 requirements the patient is being placed on trach collar during the day CPAP at night. Subjective: 12/26: Vitals not documented. Currently on CPAP 10/5 and 40%. No bowel movements documented. Not on a bowel regimen. 12/27: Remains on mechanical ventilation via tracheostomy. On CPAP trials. 12/28: no changes. still with cpap trials. Objective Vital Signs / I&O: Vital Signs 12/27/17 11:43 12/27/17 12:00 12/27/17 16:00 Temperature 98.3 F 98.4 F Pulse Rate 100 H 102 H 94 H Respiratory Rate 11 L 17 Blood Pressure 120/63 81/53 L Pulse Oximetry 96 96 100 12/27/17 16:05 12/27/17 20:00 12/27/17 20:52 Temperature 98.4 F Pulse Rate 94 H 99 H Respiratory Rate 11 L 14 10 L Blood Pressure 98/58 L Pulse Oximetry 97 99 98 12/28/17 00:00 12/28/17 00:12 12/28/17 04:00 Temperature 98.7 F 98.7 F Pulse Rate 91 H 70 Respiratory Rate 20 6 L 16 Blood Pressure 117/86 94/64 L Pulse Oximetry 98 98 94 L 12/28/17 04:34 12/28/17 07:00 12/28/17 08:00 Temperature 98.6 F Pulse Rate 84 83 Respiratory Rate 11 L 12 18 Blood Pressure 104/75 Pulse Oximetry 98 99 Intake & Output 12/27/17 12/28/17 12/28/17 18:59 06:59 18:59 Intake Total 1848 / 1848 750 / 750 150 / 150 Output Total 800 / 800 800 / 800 Balance 1048 / 1048 -50 / -50 150 / 150 Weight 63 kg Intake: IV 150 / 150 Levaquin 750 mg Premix Inj 150 150 / 150 ML @ 100 mls/hr IV.SIG Q24H [facility] Rx#:[id number] Tube Feeding 628 / 628 350 / 350 Tube Irrigant 600 / 600 Water Bolus Amount 620 / 620 400 / 400 Output: Urine Amount (Catheter) 800 / 800 800 / 800 Indwelling Urethral Catheter 800 / 800 800 / 800 Other: Bladder Irrigation Fluid - Amount Drained Indwelling Urethral Catheter 1,150 # Bowel Movements 0 0 Result Diagrams: 12/27/17 12:30 12/27/17 12:30 Objective Remarks: GENERAL: 62-year-old cachectic male in no apparent distress. Communicating in writing. SKIN: Warm and dry. No rash HEAD: Atraumatic. Normocephalic. EYES: Pupils equal and round. No scleral icterus. No injection or drainage. ENT: No nasal bleeding or discharge. Mucous membranes pink and moist. Tongue less edematous protruding from mouth unable to open mouth lips slightly less edematous. Inability to view oral aperture or oral pharynx NECK: Trachea midline. No JVD. Noted right sided neck mass. 8.0 Shiley tracheostomy in situ CARDIOVASCULAR: Normal rate, regular rhythm. Right chest [id number] RESPIRATORY: No accessory muscle use. Clear to auscultation. Breath sounds equal bilaterally. GASTROINTESTINAL: Abdomen soft, non-tender, nondistended. No guarding. PEG tube insitu MUSCULOSKELETAL: Extremities without clubbing, cyanosis, or edema. No obvious deformities. NEUROLOGICAL: GCS 11T Awake and alert. RASS 0. No gross focal/sensory deficits. Follows commands in all 4 extremities. Patient nodding head to yes and no questions, Assessment and Plan - Assessment and Plan Plan: Neuro/Psych: Insomnia Febrile illness-resolved Acetaminophen 650 mg every 6 hours as needed for pain and/or temperature Continue Oxycodone 10 mg q 4HR PRN for pain Alprazolam 0.5 mg every 6 hours as needed for agitation Temazepam 15 mg at night as needed insomnia Respiratory: Ventilator dependent hypoxemic respiratory failure COPD exacerbation Lung mass Head and neck cancer -neck mass Airway compromise Class IV Mallampati rating 12/20 S/P Emergent tracheostomy to secure airway, 8.0 Shiley 12/21 trach collar trials on .40% initiated. Patient placed back on CPAP 12/24 secondary to hypoxemia and worsening chest x-ray Continue budesonide/formoterol 160/4.5 2 puffs twice daily Albuterol/ipratropium aerosols every 4 hours with albuterol aerosols every 2 hours as indicated for dyspnea Ventilator bundle Patient placed on CPAP 03/31 at 50% trach collar trials during the day continue daily weaning trials. will need placement for long-term wean. Hematology oncology following for chemotherapy 12/22 Patient seen by radiation oncology plan for XRT initiation Cardiovascular: Hypertension Maintain MAP > greater than 65 /renal: Maintain condom catheter -- Strict I/Os FEN/GI: PEG placement 12/19 Nausea and vomiting Hyponatremia Glucerna 1.5 currently at goal 65 cc/hr. minimal residuals noted. Currently at 30 cc an hour. Dietary consultation Bowel regimen with docusate sodium 100 mg twice daily Currently in free water 200 cc every 8 hours per ID Heme/ID: Head and neck cancer Sepsis Leukocytosis Hematology oncology following-patient was tentatively scheduled for chemotherapy to initiate 12/20-we will follow up the recommendations Patient was initiated on Levaquin and vancomycin on 12/20. Currently on levofloxacin and metronidazole ID following Blood urine and sputum cultures-NGTD WBC downtrending, afebrile Endocrine: Diabetes mellitus Glucose monitoring per ICU protocol beam dose every 6 hours aspart -- SSI Prophylaxis: GI Prophylaxis Lansoprazole DVT Prophylaxis -- SCDs Enoxaparin Lines: Left radial A-line dc'd 12/22, right chest [id number]
[2017-12-28] MEDS: Enoxaparin Inj 30 MG/0.3 ML Syringe SQ SCH (14:06)
[2017-12-28] MEDS: ALPRAZolam 0.5 MG Tablet G-TUBE PRN (14:13)
--- NOTE | 2017-12-28 16:32 | P.PNPL ---
Subjective Interval history: 62 YO WM wit H&N CA,RF, Trach ON PSV, Fi02 decreased 45% Awake, follows commands Physical Exam Vital signs: Vital Signs 12/27/17 20:00 12/27/17 20:52 12/28/17 00:00 Temperature 98.4 F 98.7 F Pulse Rate 99 H 91 H Respiratory Rate 14 10 L 20 Blood Pressure 98/58 L 117/86 Pulse Oximetry 99 98 98 12/28/17 00:12 12/28/17 04:00 12/28/17 04:34 Temperature 98.7 F Pulse Rate 70 Respiratory Rate 6 L 16 11 L Blood Pressure 94/64 L Pulse Oximetry 98 94 L 98 12/28/17 07:00 12/28/17 08:00 12/28/17 12:00 Temperature 98.6 F 98.7 F Pulse Rate 84 83 87 Respiratory Rate 12 18 15 Blood Pressure 104/75 127/62 Pulse Oximetry 99 97 12/28/17 14:58 Temperature Pulse Rate 98 H Respiratory Rate 18 Blood Pressure Pulse Oximetry Intake & Output 12/27/17 12/28/17 12/28/17 18:59 06:59 18:59 Intake Total 1848 / 1848 750 / 750 150 / 150 Output Total 800 / 800 800 / 800 Balance 1048 / 1048 -50 / -50 150 / 150 Weight 63 kg Intake: IV 150 / 150 Levaquin 750 mg Premix Inj 150 150 / 150 ML @ 100 mls/hr IV.SIG Q24H [facility] Rx#:[id number] Tube Feeding 628 / 628 350 / 350 Tube Irrigant 600 / 600 Water Bolus Amount 620 / 620 400 / 400 Output: Urine Amount (Catheter) 800 / 800 800 / 800 Indwelling Urethral Catheter 800 / 800 800 / 800 Other: Bladder Irrigation Fluid - Amount Drained Indwelling Urethral Catheter 1,150 # Bowel Movements 0 0 GENERAL: MBMN,NAD SKIN: Warm and dry. HEAD: Normocephalic. EYES: No scleral icterus. No injection or drainage. NECK: Supple, trachea midline. No JVD or lymphadenopathy. has trach CARDIOVASCULAR: Regular rate and rhythm without murmurs, gallops, or rubs. RESPIRATORY: Breath sounds equal bilaterally. No accessory muscle use. GASTROINTESTINAL: Abdomen soft, non-tender, nondistended. has PEG MUSCULOSKELETAL: No cyanosis, or edema. BACK: Nontender without obvious deformity. No CVA tenderness. - Urinary Catheter Management Indwelling Urethral Catheter Cath placed during this visit: yes Reason for continuing: Acute urinary retention Insertion date: 12/20/17 Insertion time: 00:00 Assessment and Plan - Plan Resp failure S/P Emergent trach Neck Mass H&N Ca COPD PLAN: Cont Vent Support, PSV Fio2 45% Aerosol nebs cont Abx Tube feeding
[2017-12-28] MEDS: Temazepam 15 MG Capsule NG/OG PRN (20:26)
[2017-12-29] MEDS: Morphine Inj 4 MG/ML Vial IV.PUSH PRN ×5 (00:31→20:57)
[2017-12-29] MEDS: Artificial Tears Opth Drops 15 ML Bottle EACH EYE SCH ×3 (00:32→17:50)
[2017-12-29] MEDS: Insulin NovoLOG Aspart Correctional Sugar Inj SQ SCH ×5 (00:47→23:41)
[2017-12-29] MEDS: metroNIDAZOLE 500 MG Tablet PO SCH (06:53)
[2017-12-29 07:27] LABS: Hemoglobin 10.9 gm/dL (13.0-17.0); Mean Corpuscular Hemoglobin 28.3 pg (27.0-34.0); Mean Corpuscular Volume 88.3 fL (80.0-100.0); Mean Platelet Volume 8.7 fL (7.0-11.0); Platelet Count 452 th/mm3 (150-450); Red Blood Count 3.85 mil/mm3 (4.50-5.90); Red Cell Distribution Width 15.6 % (11.6-17.2); White Blood Count 17.4 th/mm3 (4.0-11.0)
[2017-12-29 07:55] LABS: Anion Gap 10 meq/L (5-15); Blood Urea Nitrogen 18 mg/dL (7-18); Calcium 9.1 mg/dL (8.5-10.1); Carbon Dioxide 30.1 meq/L (21.0-32.0); Chloride 93 meq/L (98-107); Glomerular Filtration Rate Greater Than 89 mL/min (>89); Glucose,Random 199 mg/dL (74-106); Potassium 4.2 meq/L (3.5-5.1); Sodium 133 meq/L (136-145)
--- NOTE | 2017-12-29 08:23 | P.PNCC ---
Subjective Subjective Remarks/Hospital Course: Remarks/Hospital Course This is a 62-year-old male with a past medical history of squamous cell carcinoma of the head and neck, lung mass COPD, hypertension diabetes with a history of tobacco abuse, that presented on 12/18. The patient regularly is seen at the [facility] however he was not afforded treatment at this time . The patient was admitted to the medical floor, hematology oncology had been consulted plans were for chemotherapy to be initiated today the patient underwent PEG placement yesterday. Late this afternoon the patient was noted to be hypoxemic with significant airway edema , O2 sat in the 80's, Pao2 59 on 100% nonrebreather ,in the setting of a large tumor mass .A Halicat was called , and the patient was emergently transferred to [facility]. Upon transfer the patient was immediately out evaluated and noted to be in significant respiratory distress, oral airway significantly edematous tongue protruding out of mouth Mallampati unobtainable upon evaluation. The patient appeared to be alert and could not yes and no to questions unable to speak. Quick assessment of CT scans that were previously done of the neck showed a large tumor mass crossing midline. Dr. Cabello , Anesthesiologist in to evaluate patient at bedside discussed case with him. Emergency airway equipment placed at bedside trauma surgery was notified I spoke with Dr. Rangel, patient emergently scheduled for tracheostomy to secure airway. A left radial A-line was placed ABG on 100% nonrebreather was obtained prior to going PaO2 had risen to 60 on nonrebreather mask. 12/21: No acute events overnight. The patient underwent emergency tracheostomy to secure the airway last evening. Norepinephrine and fentanyl infusions have been discontinued this morning patient has been transitioned onto CPAP trials and denies any discomfort. Patient is communicating with board and marker. PEG tube in situ tube feedings Glucerna currently at 30 cc/an hour continue to be advanced to goal. FiO2 has been decreased to .45% 12/22: No acute events overnight. The patient was maintained on CPAP trials throughout the night and this afternoon plan trach collar trials this afternoon PT OT has been initiated. Patient tolerating tube feeds no residuals. 12/23: Patient progressing well currently on trach collar trials greater than 24 hours. Patient tolerating tube feeds diet. Chemotherapy initiated yesterday. Patient denies pain. 12/24: Late entry note patient seen at 11:40 AM. Overnight the patient became agitated pulling off lines and tubes. Patient had previous stated that he has an anxiety disorder ,Xanax was ordered however not given. Upon my evaluation this a.m. O2 saturation noted to be low patient placed on FiO2 of 80% stat ABG was performed to reveal hypoxemia the patient was placed back on CPAP stat chest x-ray was performed which showed worsening airspace disease in the bases. 12/25: Patient noted with episodes of nausea, tube feeds held. Zofran given for nausea. The patient continues to have increased FiO2 requirements the patient is being placed on trach collar during the day CPAP at night. Subjective: 12/26: Vitals not documented. Currently on CPAP 10/5 and 40%. No bowel movements documented. Not on a bowel regimen. 12/27: Remains on mechanical ventilation via tracheostomy. On CPAP trials. 12/28: no changes. still with cpap trials. 12/29: tolerating t-piece trials. rested on cpap overnight. complaints of continued pain around tumor site, as well as significant secretions. Objective Vital Signs / I&O: Vital Signs 12/28/17 12:00 12/28/17 14:58 12/28/17 16:00 Temperature 37.1 C 36.9 C Pulse Rate 87 98 H 89 Respiratory Rate 15 18 21 Blood Pressure 127/62 112/58 L Pulse Oximetry 97 95 12/28/17 16:30 12/28/17 17:00 12/28/17 17:01 Temperature Pulse Rate 88 92 H 83 Respiratory Rate 19 20 17 Blood Pressure 106/57 L Pulse Oximetry 93 L 94 L 94 L 12/28/17 17:30 12/28/17 18:00 12/28/17 18:30 Temperature Pulse Rate 85 90 92 H Respiratory Rate 19 22 21 Blood Pressure 112/56 L 112/58 L 121/69 Pulse Oximetry 65 L 83 L 94 L 12/28/17 19:00 12/28/17 19:30 12/28/17 19:51 Temperature Pulse Rate 87 87 93 H Respiratory Rate 19 19 20 Blood Pressure 108/64 103/58 L Pulse Oximetry 90 L 94 L 12/28/17 20:00 12/28/17 20:01 12/28/17 20:30 Temperature 37.4 C Pulse Rate 94 H 93 H 95 H Respiratory Rate 18 17 21 Blood Pressure 115/58 L 115/58 L 117/57 L Pulse Oximetry 77 L 87 L 97 12/28/17 21:00 12/28/17 21:01 12/28/17 21:31 Temperature Pulse Rate 101 H 97 H 99 H Respiratory Rate 26 H 20 21 Blood Pressure 107/61 133/62 Pulse Oximetry 95 97 93 L 12/28/17 22:00 12/28/17 22:30 12/28/17 23:00 Temperature Pulse Rate 95 H 100 H 97 H Respiratory Rate 18 20 18 Blood Pressure 109/61 112/63 110/64 Pulse Oximetry 91 L 94 L 93 L 12/28/17 23:30 12/29/17 00:00 12/29/17 00:30 Temperature 37.6 C Pulse Rate 101 H 100 H 101 H Respiratory Rate 19 17 25 H Blood Pressure 110/77 118/66 122/69 Pulse Oximetry 92 L 95 95 12/29/17 01:00 12/29/17 01:30 12/29/17 02:00 Temperature Pulse Rate 98 H 96 H 96 H Respiratory Rate 24 19 19 Blood Pressure 118/69 121/71 106/62 Pulse Oximetry 95 93 L 93 L 12/29/17 02:30 12/29/17 03:00 12/29/17 03:30 Temperature Pulse Rate 95 H 99 H 101 H Respiratory Rate 20 22 24 Blood Pressure 124/68 119/73 119/69 Pulse Oximetry 93 L 97 99 12/29/17 03:45 12/29/17 04:00 12/29/17 04:34 Temperature Pulse Rate 96 H 99 H Respiratory Rate 17 28 H 14 Blood Pressure 112/65 Pulse Oximetry 94 L 99 Intake & Output 12/28/17 12/29/17 12/29/17 18:59 06:59 18:59 Intake Total 1116 / 1116 150 / 150 856 / 856 Output Total 550 / 550 Balance 1116 / 1116 150 / 150 306 / 306 Weight 61.5 kg Intake: IV 150 / 150 150 / 150 Levaquin 750 mg Premix Inj 150 150 / 150 150 / 150 ML @ 100 mls/hr IV.SIG Q24H [facility] Rx#:[id number] Tube Feeding 446 / 446 456 / 456 Tube Irrigant 400 / 400 400 / 400 Water Bolus Amount 120 / 120 Output: Urine Amount (Catheter) 550 / 550 Indwelling Urethral Catheter 550 / 550 Other: Bladder Irrigation Fluid - Amount Drained Indwelling Urethral Catheter 900 Result Diagrams: 12/29/17 06:49 12/29/17 06:49 Imaging: Chest X-Ray 12/27/17 00:01 CONCLUSION: Persistent nonconsolidative airspace infiltrates in the left lower lung. Objective Remarks: GENERAL: 62-year-old cachectic male in no apparent distress. Communicating in writing. SKIN: Warm and dry. No rash HEAD: Atraumatic. Normocephalic. EYES: Pupils equal and round. No scleral icterus. No injection or drainage. ENT: No nasal bleeding or discharge. Mucous membranes pink and moist. Tongue less edematous protruding from mouth unable to open mouth lips slightly less edematous. Inability to view oral aperture or oral pharynx NECK: Trachea midline. No JVD. Noted right sided neck mass. 8.0 Shiley tracheostomy in situ CARDIOVASCULAR: Normal rate, regular rhythm. Right chest [id number] RESPIRATORY: No accessory muscle use. Clear to auscultation. Breath sounds equal bilaterally. GASTROINTESTINAL: Abdomen soft, non-tender, nondistended. No guarding. PEG tube insitu MUSCULOSKELETAL: Extremities without clubbing, cyanosis, or edema. No obvious deformities. NEUROLOGICAL: GCS 11T Awake and alert. RASS 0. No gross focal/sensory deficits. Follows commands in all 4 extremities. Patient nodding head to yes and no questions, Assessment and Plan - Assessment and Plan Plan: Neuro/Psych: Insomnia Febrile illness-resolved acute Pain associated with head/neck cancer Acetaminophen 650 mg every 6 hours as needed for pain and/or temperature Continue Oxycodone 10 mg q 4HR PRN for pain Alprazolam 0.5 mg every 6 hours as needed for agitation Temazepam 15 mg at night as needed insomnia pain is poorly controlled with opiate therapy. opiates are indicated in this malignant pain. will add multimodal therapy: - start gabapentin 300mg po q8h - start tizanidine 4mg po q12h (for alpha-2 agonism) - continue po oxycodone - continue iv morphine for breakthrough - prn tylenol Respiratory: Ventilator dependent hypoxemic respiratory failure COPD exacerbation Lung mass Head and neck cancer -neck mass Airway compromise Significant oral secretions Class IV Mallampati rating / S/P Emergent tracheostomy to secure airway, 8.0 Shiley /27 trach collar trials on .40% initiated. Patient placed back on CPAP 12/24 secondary to hypoxemia and worsening chest x-ray Continue budesonide/formoterol 160/4.5 2 puffs twice daily Albuterol/ipratropium aerosols every 4 hours with albuterol aerosols every 2 hours as indicated for dyspnea Ventilator bundle Patient placed on CPAP 10/5 overnight and trach collar trials during the day continue daily weaning trials. will need placement for long-term wean. Hematology oncology following for chemotherapy 12/22 Patient seen by radiation oncology plan for XRT initiation will start low-dose Levsin 0.125mg q6h for secretion management. Cardiovascular: Hypertension Maintain MAP > greater than 65 /renal: Maintain condom catheter -- Strict I/Os FEN/GI: PEG placement 12/19 Nausea and vomiting Glucerna 1.5 currently at goal 65 cc/hr. minimal residuals noted. Currently at 30 cc an hour. Dietary consultation Bowel regimen with docusate sodium 100 mg twice daily Currently in free water 200 cc every 8 hours per ID Heme/ID: Head and neck cancer Sepsis Leukocytosis Hematology oncology following-patient was tentatively scheduled for chemotherapy to initiate 12/20-we will follow up the recommendations Patient was initiated on Levaquin and vancomycin on 12/20. Currently on levofloxacin and metronidazole ID following Blood urine and sputum cultures-NGTD WBC downtrending, afebrile Endocrine: Diabetes mellitus Glucose monitoring per ICU protocol beam dose every 6 hours aspart -- SSI Prophylaxis: GI Prophylaxis Lansoprazole DVT Prophylaxis -- SCDs Enoxaparin Lines: Left radial A-line dc'd 12/22, right chest [id number]
[2017-12-29] MEDS: Docusate Sodium Liq 100 MG/10 ML UDC G-TUBE SCH ×2 (08:45→20:57)
[2017-12-29] MEDS: Chlorhexidine Gluconate 0.12% Liq 15 ML UDC SWISH-SPIT SCH ×2 (08:45→21:16)
[2017-12-29] MEDS: Gabapentin Liq 250 MG/5 ML UDC PO SCH ×3 (08:53→21:17)
--- NOTE | 2017-12-29 10:58 | P.PNONC ---
Subjective Interval history: Afebrile overnight. Lying in bed, RT and RN at the bedside. Pt continues to have mouth pain. He is scheduled for radiation simulation today and second dose of chemotherapy. Per RT he is only on CPAP at night, currently receiving breathing treatment. Objective Vital Signs/Intake & Output: Vital Signs 12/28/17 12:00 12/28/17 14:58 12/28/17 16:00 Temperature 98.7 F 98.5 F Pulse Rate 87 98 H 89 Respiratory Rate 15 18 21 Blood Pressure 127/62 112/58 L Pulse Oximetry 97 95 12/28/17 16:30 12/28/17 17:00 12/28/17 17:01 Temperature Pulse Rate 88 92 H 83 Respiratory Rate 19 20 17 Blood Pressure 106/57 L Pulse Oximetry 93 L 94 L 94 L 12/28/17 17:30 12/28/17 18:00 12/28/17 18:30 Temperature Pulse Rate 85 90 92 H Respiratory Rate 19 22 21 Blood Pressure 112/56 L 112/58 L 121/69 Pulse Oximetry 65 L 83 L 94 L 12/28/17 19:00 12/28/17 19:30 12/28/17 19:51 Temperature Pulse Rate 87 87 93 H Respiratory Rate 19 19 20 Blood Pressure 108/64 103/58 L Pulse Oximetry 90 L 94 L 12/28/17 20:00 12/28/17 20:01 12/28/17 20:30 Temperature 99.3 F Pulse Rate 94 H 93 H 95 H Respiratory Rate 18 17 21 Blood Pressure 115/58 L 115/58 L 117/57 L Pulse Oximetry 77 L 87 L 97 12/28/17 21:00 12/28/17 21:01 12/28/17 21:31 Temperature Pulse Rate 101 H 97 H 99 H Respiratory Rate 26 H 20 21 Blood Pressure 107/61 133/62 Pulse Oximetry 95 97 93 L 12/28/17 22:00 12/28/17 22:30 12/28/17 23:00 Temperature Pulse Rate 95 H 100 H 97 H Respiratory Rate 18 20 18 Blood Pressure 109/61 112/63 110/64 Pulse Oximetry 91 L 94 L 93 L 12/28/17 23:30 12/29/17 00:00 12/29/17 00:30 Temperature 99.6 F Pulse Rate 101 H 100 H 101 H Respiratory Rate 19 17 25 H Blood Pressure 110/77 118/66 122/69 Pulse Oximetry 92 L 95 95 12/29/17 01:00 12/29/17 01:30 12/29/17 02:00 Temperature Pulse Rate 98 H 96 H 96 H Respiratory Rate 24 19 19 Blood Pressure 118/69 121/71 106/62 Pulse Oximetry 95 93 L 93 L 12/29/17 02:30 12/29/17 03:00 12/29/17 03:30 Temperature Pulse Rate 95 H 99 H 101 H Respiratory Rate 20 22 24 Blood Pressure 124/68 119/73 119/69 Pulse Oximetry 93 L 97 99 12/29/17 03:45 12/29/17 04:00 12/29/17 04:34 Temperature Pulse Rate 96 H 99 H Respiratory Rate 17 28 H 14 Blood Pressure 112/65 Pulse Oximetry 94 L 99 12/29/17 08:00 12/29/17 08:31 Temperature Pulse Rate 94 H 87 Respiratory Rate 18 16 Blood Pressure 112/65 Pulse Oximetry Intake & Output 12/28/17 12/29/17 12/29/17 18:59 06:59 18:59 Intake Total 1116 / 1116 150 / 150 856 / 856 Output Total 550 / 550 Balance 1116 / 1116 150 / 150 306 / 306 Weight 61.5 kg Intake: IV 150 / 150 150 / 150 Levaquin 750 mg Premix Inj 150 150 / 150 150 / 150 ML @ 100 mls/hr IV.SIG Q24H [facility] Rx#:[id number] Tube Feeding 446 / 446 456 / 456 Tube Irrigant 400 / 400 400 / 400 Water Bolus Amount 120 / 120 Output: Urine Amount (Catheter) 550 / 550 Indwelling Urethral Catheter 550 / 550 Other: Bladder Irrigation Fluid - Amount Drained Indwelling Urethral Catheter 900 Result Diagrams: 12/29/17 06:49 12/29/17 06:49 Laboratory Results: Laboratory Results - last 24 hr 12/28/17 12/28/17 12/29/17 14:05 18:34 00:41 WBC RBC Hgb Hct MCV MCH MCHC RDW Plt Count MPV Sodium Potassium Chloride Carbon Dioxide Anion Gap BUN Creatinine Estimated GFR POC Glucose 232 H 177 H 200 H Random Glucose Calcium 12/29/17 12/29/17 06:49 06:49 WBC 17.4 H RBC 3.85 L Hgb 10.9 L Hct 34.0 L MCV 88.3 MCH 28.3 MCHC 32.0 RDW 15.6 Plt Count 452 H MPV 8.7 Sodium 133 L Potassium 4.2 Chloride 93 L Carbon Dioxide 30.1 Anion Gap 10 BUN 18 Creatinine 0.35 L Estimated GFR Greater than 89 POC Glucose Random Glucose 199 H Calcium 9.1 Culture Results: Microbiology 12/27/17 10:37 Gram Stain - Final Sputum - Endotracheal Sputum Culture - Preliminary Heavy growth normal respiratory kali at 24 hours Medications: Active Medications Generic Name Dose Route Start Last Admin Trade Name Freq PRN Reason Stop Dose Admin Acetaminophen 650 mg 12/25/17 00:01 12/27/17 14:26 Tylenol PO 650 mg Q6H PRN Administration FEVER/PAIN SCALE 1 to 2 Albuterol 1 ampul 12/26/17 20:00 12/29/17 08:29 Duoneb Neb ([place]) NEB 1 ampul Q4HR NEB [facility] Administration Alprazolam 0.5 mg 12/25/17 00:01 12/28/17 14:13 Xanax G-TUBE 0.5 mg Q6H PRN Administration Anxiety/Agitation Artificial Tears 1 drop 12/26/17 17:00 12/29/17 08:47 Tears Naturale Opth Drops EACH EYE 1 drop Q8H [facility] Administration Budesonide/Formoterol Fumarate 2 puff 12/25/17 09:00 12/28/17 22:34 Symbicort 160/4.5 Mcg Inh INH 2 puff BID [facility] Administration Chlorhexidine Gluconate 15 ml 12/25/17 09:00 12/29/17 08:45 Peridex 0.12% Liq SWISH-SPIT 15 ml BID [facility] Administration Docusate Sodium 100 mg 12/26/17 21:00 12/29/17 08:45 Colace Liq G-TUBE 100 mg BID [facility] Administration Enoxaparin Sodium 30 mg 12/25/17 11:00 12/28/17 14:06 Lovenox Inj SQ 30 mg Q24H [facility] Administration Gabapentin 300 mg 12/29/17 08:15 12/29/17 08:53 Neurontin Liq PO 300 mg Q8HR [facility] Administration Hyoscyamine 0.125 mg 12/29/17 08:30 12/29/17 08:50 Levsin PO 0.125 mg Q6HR [facility] Administration Levofloxacin/Dextrose 150 mls @ 100 mls/hr 12/25/17 15:00 12/28/17 19:00 Levaquin 750 Mg Premix Inj IV.SIG Infused Q24H [facility] Infusion Insulin Aspart 0 unit 12/26/17 18:00 12/29/17 00:47 Novolog Insulin Suppl Scale Inj SQ 4 unit Q6HR [facility] Administration Protocol Lansoprazole 30 mg 12/27/17 09:00 12/29/17 08:45 Prevacid Solutab NG/OG 30 mg DAILY [facility] Administration Metronidazole 500 mg 12/25/17 06:00 12/29/17 06:53 Flagyl PO 500 mg Q8HR [facility] Administration Morphine Sulfate 2 mg 12/28/17 08:36 12/29/17 06:54 Morphine Inj IV.PUSH 2 mg Q2H PRN Administration PAIN SCALE 5-10/SEVERE COUGH Oxycodone HCl 10 mg 12/25/17 00:01 12/28/17 06:10 Roxicodone PO 10 mg Q4H PRN Administration Pain Scale 3 to 5 Sodium Chloride 2 ml 12/25/17 09:00 12/29/17 08:45 Ns Flush IV.FLUSH 2 ml BID BR[facility] Administration Sterile Water 200 ml 12/25/17 06:00 12/29/17 06:54 Free Water G-TUBE 200 ml Q8HR [facility] Administration Temazepam 15 mg 12/25/17 18:35 12/28/17 20:26 Restoril NG/OG 15 mg HS PRN Administration INSOMNIA Tizanidine HCl 4 mg 12/29/17 09:00 12/29/17 08:50 Zanaflex PO 4 mg Q12HR [facility] Administration Objective Remarks: GENERAL: Chronically ill appearing middle aged male, lying in bed in no acute distress. SKIN: Warm and dry. HEAD: Normocephalic. Oral tongue protrusion EYES: No scleral icterus. No injection or drainage. NECK: Supple, tracheostomy in place. +large right neck mass. Tender to palpation. CARDIOVASCULAR: Regular rate and rhythm RESPIRATORY: Breath sounds equal bilaterally. No accessory muscle use. GASTROINTESTINAL: Abdomen soft, non-tender, nondistended. PEG tube in place. EXTREMITIES: No cyanosis NEUROLOGICAL: awake and alert. 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 A delay in his treatment coordinated by the [facility] resulted in his presentation to this hospital with a symptomatic large right neck and base of tongue/tonsil mass. s/p first dose of chemotherapy with carbo/taxol 12/22. Plan: 1. 2nd dose of chemotherapy with carbo/taxol to be given today, 12/29/17. Orders faxed to pharmacy, ear muff assembler aware. 2. Continue pain management. 3. Radiation simulation scheduled for today. - Attending Statement The exam, history, and the medical decision-making described in the above note were completed with the assistance of the mid-level provider. I reviewed and agree with the findings presented. I attest that I had a [id number] encounter with the patient on the same day, and personally performed and documented my assessment and findings in the medical record. Tolerated chemotherapy well. Discussed with infectious disease for stopping antibiotic therapy and monitoring. Noted a mild leukocytosis. Patient is eager to go home. He has approval for his chemotherapy on outpatient basis. We will continue treatment while he is in the hospital. In the meantime the primary team is working to stabilize him. He is better nourished than when he came in with the PEG tube feeding. He is stable from respiratory standpoint as he is obstruction has been bypassed by his tracheostomy. He tolerated his chemotherapy today without event. We will monitor for toxicity.
[2017-12-29] MEDS: Budesonide-Formoterol 160/4.5 MCG 6 GM Inhaler INH SCH ×2 (11:13→21:16)
[2017-12-29] MEDS: Enoxaparin Inj 30 MG/0.3 ML Syringe SQ SCH (11:14)
[2017-12-29] MEDS ORDERED: Famotidine PF Inj 20 MG/2 ML Vial IV.PUSH ONE (13:00)
[2017-12-29] MEDS ORDERED: Granisetron 1 MG/ML Vial IV.PUSH ONE (13:00)
[2017-12-29] MEDS ORDERED: Dexamethasone Inj 20 MG in Sodium Chlor 0.9% Inj 50 ML IV.SIG ONE (13:00)
[2017-12-29 13:17] LABS: Albumin 2.3 g/dL (3.4-5.0)
[2017-12-29 13:20] LABS: Total Protein 6.1 g/dL (6.4-8.2)
--- NOTE | 2017-12-29 13:40 | P.PNID ---
Subjective Remarks: Mr. 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 Garrison medical oncologist. At that time patient was found to have right cervical lymphadenopathy and submandibular lymphadenopathy. The CAT scan of the chest at that time had shown COPD with mild enlargement of the mediastinal lymph node and he was staged to be a T3, N2 C, M0, stage IV a head and neck cancer. The patient was advised to have a PET scan, [id number] placement and PEG tube to start the treatment however due to some delays related to his approval of treatment plan by the [facility] patient did not undergo this. Patient was referred to [facility] at the [facility]. Additionally it appears that the patient himself did not want any treatment done at [facility]. Additional information that is pertinent is that patient was admitted again on September 23, 2017 for pneumonia. During that admission he was again evaluated by Dr. Garrison. Patient did not want any treatment to be done locally related to his cancer so he was discharged home on September 28, 2017. He appears to be under the care of me and those records are not available to us at the present time. It does not appear that the patient was started on any chemotherapy based on review of medical records from oncology notes. Patient reportedly has been losing weight and cachectic unable to talk too much due to very large tumor in the mouth and unable to eat much. His tumor on the right side of the mouth started increasing progressively. With this background patient presented to the emergency department complaining of pain in the neck and unable to eat or drink. He was complaining of cough with blood-tinged sputum. He had a CAT scan of the soft tissue of the neck which showed a large tumor involving the tongue and the right side of pharynx with necrotic right cervical lymphadenopathy. Patient was initially admitted to the hospitalist service and then overnight yesterday patient had respiratory distress and had to be emergently trached. performed emergency tracheostomy. Overnight patient was on pressors and currently is off of pressors. His urine output is okay. He is awake responding to commands and currently off of pressors as well as sedatives. Oncology services as well as radiation oncology have been following the patient. It is determined at the present time the patient would undergo chemotherapy followed by radiation therapy in an attempt to reduce the bulk of the tumor. Infectious diseases consulted for evaluation and management of persistent leukocytosis. Overnight events reviewed No fevers No rash No diarrhea Neck feels better today PEG , Trach in. uses non verbal methods such as finger and hand movements to communicate Antibiotics: Levaquin Flagyl Lines: Lines ok Past Medical History: Antibiotics Levaquin IV Vancomycin IV Lines Line sites okay Past Medical History COPD, hypertension, diabetes mellitus. Bowel resection, back surgery, Infusaport placement. Emergency trach during this admission Allergies/Adverse Reactions: Allergies penicillin G Allergy (Severe, Unverified 12/17/17 21:20) SWELLING has tolerated Cephalosporins in previous admissions *MDRO Multi-Drug Resistant Organism Adverse Reaction (Unknown, Uncoded 12/17/17 21:20) Hx MRSA Sputum 2006, Wounds 2003 MRSA PCR Screen negative 11/25/14 & 09/10/15. Cleared per Infection Control. Patient does not require isolation for hx of MRSA prior to 09/10/15. Objective Vital Signs 12/28/17 14:58 12/28/17 16:00 12/28/17 16:30 Temperature 98.5 F Pulse Rate 98 H 89 88 Respiratory Rate 18 21 19 Blood Pressure 112/58 L Pulse Oximetry 95 93 L 12/28/17 17:00 12/28/17 17:01 12/28/17 17:30 Temperature Pulse Rate 92 H 83 85 Respiratory Rate 20 17 19 Blood Pressure 106/57 L 112/56 L Pulse Oximetry 94 L 94 L 65 L 12/28/17 18:00 12/28/17 18:30 12/28/17 19:00 Temperature Pulse Rate 90 92 H 87 Respiratory Rate 22 21 19 Blood Pressure 112/58 L 121/69 108/64 Pulse Oximetry 83 L 94 L 90 L 12/28/17 19:30 12/28/17 19:51 12/28/17 20:00 Temperature 99.3 F Pulse Rate 87 93 H 94 H Respiratory Rate 19 20 18 Blood Pressure 103/58 L 115/58 L Pulse Oximetry 94 L 77 L 12/28/17 20:01 12/28/17 20:30 12/28/17 21:00 Temperature Pulse Rate 93 H 95 H 101 H Respiratory Rate 17 21 26 H Blood Pressure 115/58 L 117/57 L Pulse Oximetry 87 L 97 95 12/28/17 21:01 12/28/17 21:31 12/28/17 22:00 Temperature Pulse Rate 97 H 99 H 95 H Respiratory Rate 20 21 18 Blood Pressure 107/61 133/62 109/61 Pulse Oximetry 97 93 L 91 L 12/28/17 22:30 12/28/17 23:00 12/28/17 23:30 Temperature Pulse Rate 100 H 97 H 101 H Respiratory Rate 20 18 19 Blood Pressure 112/63 110/64 110/77 Pulse Oximetry 94 L 93 L 92 L 12/29/17 00:00 12/29/17 00:30 12/29/17 01:00 Temperature 99.6 F Pulse Rate 100 H 101 H 98 H Respiratory Rate 17 25 H 24 Blood Pressure 118/66 122/69 118/69 Pulse Oximetry 95 95 95 12/29/17 01:30 12/29/17 02:00 12/29/17 02:30 Temperature Pulse Rate 96 H 96 H 95 H Respiratory Rate 19 19 20 Blood Pressure 121/71 106/62 124/68 Pulse Oximetry 93 L 93 L 93 L 12/29/17 03:00 12/29/17 03:30 12/29/17 03:45 Temperature Pulse Rate 99 H 101 H 96 H Respiratory Rate 22 24 17 Blood Pressure 119/73 119/69 Pulse Oximetry 97 99 12/29/17 04:00 12/29/17 04:34 12/29/17 08:00 Temperature Pulse Rate 99 H 94 H Respiratory Rate 28 H 14 18 Blood Pressure 112/65 112/65 Pulse Oximetry 94 L 99 12/29/17 08:31 12/29/17 12:00 12/29/17 12:01 Temperature 99 F Pulse Rate 87 84 83 Respiratory Rate 16 18 16 Blood Pressure 103/58 L Pulse Oximetry 94 L 12/29/17 12:30 Temperature Pulse Rate Respiratory Rate 18 Blood Pressure Pulse Oximetry Intake & Output 12/28/17 12/29/17 12/29/17 18:59 06:59 18:59 Intake Total 1116 / 1116 150 / 150 856 / 856 Output Total 550 / 550 Balance 1116 / 1116 150 / 150 306 / 306 Weight 61.5 kg Intake: IV 150 / 150 150 / 150 Levaquin 750 mg Premix Inj 150 150 / 150 150 / 150 ML @ 100 mls/hr IV.SIG Q24H [facility] Rx#:[id number] Tube Feeding 446 / 446 456 / 456 Tube Irrigant 400 / 400 400 / 400 Water Bolus Amount 120 / 120 Output: Urine Amount (Catheter) 550 / 550 Indwelling Urethral Catheter 550 / 550 Other: Bladder Irrigation Fluid - Amount Drained Indwelling Urethral Catheter 900 12/27/17 10:37 Sputum - Endotracheal Gram Stain - Final 12/27/17 10:37 Sputum - Endotracheal Sputum Culture - Preliminary Heavy growth normal respiratory kali at 24 hours Lab - Hematology Results 12/29/17 06:49 WBC 17.4 H RBC 3.85 L Hgb 10.9 L Hct 34.0 L MCV 88.3 MCH 28.3 MCHC 32.0 RDW 15.6 Plt Count 452 H MPV 8.7 Lab - Chemistry Results 12/27/17 12/27/17 12/28/17 17:41 23:24 06:04 Sodium Potassium Chloride Carbon Dioxide Anion Gap BUN Creatinine Estimated GFR POC Glucose 278 H 127 H 188 H Random Glucose Calcium Magnesium Total Bilirubin Direct Bilirubin Indirect Bilirubin AST ALT Alkaline Phosphatase Total Protein Albumin 12/28/17 12/28/17 12/29/17 14:05 18:34 00:41 Sodium Potassium Chloride Carbon Dioxide Anion Gap BUN Creatinine Estimated GFR POC Glucose 232 H 177 H 200 H Random Glucose Calcium Magnesium Total Bilirubin Direct Bilirubin Indirect Bilirubin AST ALT Alkaline Phosphatase Total Protein Albumin 12/29/17 12/29/17 12/29/17 06:49 10:05 10:05 Sodium 133 L Potassium 4.2 Chloride 93 L Carbon Dioxide 30.1 Anion Gap 10 BUN 18 Creatinine 0.35 L Estimated GFR Greater than 89 POC Glucose Random Glucose 199 H Calcium 9.1 Magnesium 2.1 Total Bilirubin 0.3 Direct Bilirubin 0.1 Indirect Bilirubin 0.2 AST 6 L ALT 10 L Alkaline Phosphatase 91 Total Protein 6.1 L Albumin 2.3 L 12/29/17 11:12 Sodium Potassium Chloride Carbon Dioxide Anion Gap BUN Creatinine Estimated GFR POC Glucose 238 H Random Glucose Calcium Magnesium Total Bilirubin Direct Bilirubin Indirect Bilirubin AST ALT Alkaline Phosphatase Total Protein Albumin Imaging: ITS Impressions Chest X-Ray 12/27/17 00:01 CONCLUSION: Persistent nonconsolidative airspace infiltrates in the left lower lung. Physical Exam: GENERAL: This is a well-nourished, well-developed patient, in no apparent distress. SKIN: No rashes, ecchymoses or lesions. Cool and dry. HEAD: Atraumatic. Normocephalic. No temporal or scalp tenderness. EYES: Pupils equal round and reactive. Extraocular motions intact. No scleral icterus. No injection or drainage. ENT: Large mass occupying the mouth, protruding through right part of mouth. Swelling in right side of neck. NECK: Trach site ok. Port site ok. CARDIOVASCULAR: HS audible. RESPIRATORY: Clear to auscultation. Breath sounds equal bilaterally. No wheezes , rales, or rhonchi. GASTROINTESTINAL: Abdomen soft, non-tender, nondistended. NEUROLOGICAL: Awake and alert. Non focal exam Psych cooperative IV line sites with no e.o infection. Assessment and Plan - Plan Possible Sepsis (leucocytosis, tachycardia, source: aspiration pneumonitis) Leucocytosis: aspiration pneumonia, steroid effect, necrosis of the the tumor or LNs. Acute resp failure on vent Trach for obstructive airway cancer. 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 Recs: STEVE Nance: WBC high from tumor necrosis plus steroids off and on. CXR improved. No other signs of infection. She agrees with stopping antibiotics. Will observe off antibiotics. If periods of neutropenia or new fevers this will need reconsideration. katerin Murphy. Will sign off please call back if any change in clinical condition or questions.
[2017-12-29] MEDS ORDERED: PACLITAXEL IV.SIG ONE (14:00)
[2017-12-29] MEDS ORDERED: SODIUM CHLOR 0.9% IV.SIG ONE ×2 (14:00→15:00)
[2017-12-29] MEDS ORDERED: CARBOPLATIN IV.SIG ONE (15:00)
--- NOTE | 2017-12-29 18:58 | P.PNPL ---
Subjective Interval history: 62 YO WM wit H&N CA,RF, Trach ON PSV, trach collar Tolerates TF Awake, follows commands Physical Exam Vital signs: Vital Signs 12/28/17 19:00 12/28/17 19:30 12/28/17 19:51 Temperature Pulse Rate 87 87 93 H Respiratory Rate 19 19 20 Blood Pressure 108/64 103/58 L Pulse Oximetry 90 L 94 L 12/28/17 20:00 12/28/17 20:01 12/28/17 20:30 Temperature 99.3 F Pulse Rate 94 H 93 H 95 H Respiratory Rate 18 17 21 Blood Pressure 115/58 L 115/58 L 117/57 L Pulse Oximetry 77 L 87 L 97 12/28/17 21:00 12/28/17 21:01 12/28/17 21:31 Temperature Pulse Rate 101 H 97 H 99 H Respiratory Rate 26 H 20 21 Blood Pressure 107/61 133/62 Pulse Oximetry 95 97 93 L 12/28/17 22:00 12/28/17 22:30 12/28/17 23:00 Temperature Pulse Rate 95 H 100 H 97 H Respiratory Rate 18 20 18 Blood Pressure 109/61 112/63 110/64 Pulse Oximetry 91 L 94 L 93 L 12/28/17 23:30 12/29/17 00:00 12/29/17 00:30 Temperature 99.6 F Pulse Rate 101 H 100 H 101 H Respiratory Rate 19 17 25 H Blood Pressure 110/77 118/66 122/69 Pulse Oximetry 92 L 95 95 12/29/17 01:00 12/29/17 01:30 12/29/17 02:00 Temperature Pulse Rate 98 H 96 H 96 H Respiratory Rate 24 19 19 Blood Pressure 118/69 121/71 106/62 Pulse Oximetry 95 93 L 93 L 12/29/17 02:30 12/29/17 03:00 12/29/17 03:30 Temperature Pulse Rate 95 H 99 H 101 H Respiratory Rate 20 22 24 Blood Pressure 124/68 119/73 119/69 Pulse Oximetry 93 L 97 99 12/29/17 03:45 12/29/17 04:00 12/29/17 04:34 Temperature Pulse Rate 96 H 99 H Respiratory Rate 17 28 H 14 Blood Pressure 112/65 Pulse Oximetry 94 L 99 12/29/17 08:00 12/29/17 08:31 12/29/17 12:00 Temperature 99 F Pulse Rate 94 H 87 84 Respiratory Rate 18 16 18 Blood Pressure 112/65 103/58 L Pulse Oximetry 94 L 12/29/17 12:01 12/29/17 12:30 12/29/17 15:37 Temperature Pulse Rate 83 87 Respiratory Rate 16 18 16 Blood Pressure Pulse Oximetry 12/29/17 16:00 Temperature Pulse Rate 101 H Respiratory Rate 17 Blood Pressure 124/64 Pulse Oximetry 89 L Intake & Output 12/28/17 12/29/17 12/29/17 18:59 06:59 18:59 Intake Total 1116 / 1116 150 / 150 856 / 856 Output Total 550 / 550 Balance 1116 / 1116 150 / 150 306 / 306 Weight 61.5 kg Intake: IV 150 / 150 150 / 150 Levaquin 750 mg Premix Inj 150 150 / 150 150 / 150 ML @ 100 mls/hr IV.SIG Q24H [facility] Rx#:[id number] Tube Feeding 446 / 446 456 / 456 Tube Irrigant 400 / 400 400 / 400 Water Bolus Amount 120 / 120 Output: Urine Amount (Catheter) 550 / 550 Indwelling Urethral Catheter 550 / 550 Other: Bladder Irrigation Fluid - Amount Drained Indwelling Urethral Catheter 900 - Urinary Catheter Management Indwelling Urethral Catheter Cath placed during this visit: yes Reason for continuing: Acute urinary retention Insertion date: 12/20/17 Insertion time: 00:00 Assessment and Plan - Plan Resp failure S/P Emergent trach Neck Mass H&N Ca COPD PLAN: Cont Vent Support, PSV Fio2 45% Aerosol nebs cont Abx Tube feeding
[2017-12-30] MEDS: Gabapentin Liq 250 MG/5 ML UDC PO SCH ×3 (05:05→21:10)
[2017-12-30] MEDS: Artificial Tears Opth Drops 15 ML Bottle EACH EYE SCH ×3 (05:06→17:13)
[2017-12-30] MEDS: Insulin NovoLOG Aspart Correctional Sugar Inj SQ SCH ×3 (05:18→17:13)
[2017-12-30] MEDS ORDERED: Heparin Central Flush 100 UNIT/ML 5 ML Vial IV.FLUSH PRN ×2 (05:33)
[2017-12-30 05:40] LABS: Hematocrit 32.7 % (39.0-51.0); Hemoglobin 10.8 gm/dL (13.0-17.0); Mean Corpuscular Hemoglobin 29.3 pg (27.0-34.0); Mean Corpuscular Volume 88.8 fL (80.0-100.0); Platelet Count 406 th/mm3 (150-450); Red Blood Count 3.68 mil/mm3 (4.50-5.90); Red Cell Distribution Width 15.8 % (11.6-17.2); White Blood Count 12.4 th/mm3 (4.0-11.0)
[2017-12-30 06:04] LABS: Anion Gap 8 meq/L (5-15); Blood Urea Nitrogen 24 mg/dL (7-18); Calcium 8.9 mg/dL (8.5-10.1); Carbon Dioxide 31.5 meq/L (21.0-32.0); Chloride 95 meq/L (98-107); Glomerular Filtration Rate Greater Than 89 mL/min (>89); Glucose,Random 249 mg/dL (74-106); Potassium 4.9 meq/L (3.5-5.1); Sodium 134 meq/L (136-145)
[2017-12-30] MEDS: Budesonide-Formoterol 160/4.5 MCG 6 GM Inhaler INH SCH ×2 (07:59→21:13)
[2017-12-30] MEDS: Docusate Sodium Liq 100 MG/10 ML UDC G-TUBE SCH ×2 (08:01→21:10)
[2017-12-30] MEDS: Chlorhexidine Gluconate 0.12% Liq 15 ML UDC SWISH-SPIT SCH ×2 (08:02→21:14)
[2017-12-30] MEDS: Enoxaparin Inj 30 MG/0.3 ML Syringe SQ SCH (11:07)
--- NOTE | 2017-12-30 12:41 | P.PNCC ---
Subjective Subjective Remarks/Hospital Course: Remarks/Hospital Course This is a 62-year-old male with a past medical history of squamous cell carcinoma of the head and neck, lung mass COPD, hypertension diabetes with a history of tobacco abuse, that presented on 12/18. The patient regularly is seen at the [facility] however he was not afforded treatment at this time . The patient was admitted to the medical floor, hematology oncology had been consulted plans were for chemotherapy to be initiated today the patient underwent PEG placement yesterday. Late this afternoon the patient was noted to be hypoxemic with significant airway edema , O2 sat in the 80's, Pao2 59 on 100% nonrebreather ,in the setting of a large tumor mass .A Halicat was called , and the patient was emergently transferred to [facility]. Upon transfer the patient was immediately out evaluated and noted to be in significant respiratory distress, oral airway significantly edematous tongue protruding out of mouth Mallampati unobtainable upon evaluation. The patient appeared to be alert and could not yes and no to questions unable to speak. Quick assessment of CT scans that were previously done of the neck showed a large tumor mass crossing midline. Dr. Cabello , Anesthesiologist in to evaluate patient at bedside discussed case with him. Emergency airway equipment placed at bedside trauma surgery was notified I spoke with Dr. Rangel, patient emergently scheduled for tracheostomy to secure airway. A left radial A-line was placed ABG on 100% nonrebreather was obtained prior to going PaO2 had risen to 60 on nonrebreather mask. 12/21: No acute events overnight. The patient underwent emergency tracheostomy to secure the airway last evening. Norepinephrine and fentanyl infusions have been discontinued this morning patient has been transitioned onto CPAP trials and denies any discomfort. Patient is communicating with board and marker. PEG tube in situ tube feedings Glucerna currently at 30 cc/an hour continue to be advanced to goal. FiO2 has been decreased to .45% 12/22: No acute events overnight. The patient was maintained on CPAP trials throughout the night and this afternoon plan trach collar trials this afternoon PT OT has been initiated. Patient tolerating tube feeds no residuals. 12/23: Patient progressing well currently on trach collar trials greater than 24 hours. Patient tolerating tube feeds diet. Chemotherapy initiated yesterday. Patient denies pain. 12/24: Late entry note patient seen at 11:40 AM. Overnight the patient became agitated pulling off lines and tubes. Patient had previous stated that he has an anxiety disorder ,Xanax was ordered however not given. Upon my evaluation this a.m. O2 saturation noted to be low patient placed on FiO2 of 80% stat ABG was performed to reveal hypoxemia the patient was placed back on CPAP stat chest x-ray was performed which showed worsening airspace disease in the bases. 12/25: Patient noted with episodes of nausea, tube feeds held. Zofran given for nausea. The patient continues to have increased FiO2 requirements the patient is being placed on trach collar during the day CPAP at night. 12/26: Vitals not documented. Currently on CPAP 10/5 and 40%. No bowel movements documented. Not on a bowel regimen. 12/27: Remains on mechanical ventilation via tracheostomy. On CPAP trials. 12/28: no changes. still with cpap trials. 12/29: tolerating t-piece trials. rested on cpap overnight. complaints of continued pain around tumor site, as well as significant secretions. Subjective: 12/30: clinically doing well. denies complaints. asked that speech re-evaluate him because he would like to start eating real food again. plan for XRT to start today. Objective Vital Signs / I&O: Vital Signs 12/29/17 15:37 12/29/17 16:00 12/29/17 16:30 Temperature Pulse Rate 87 101 H 100 H Respiratory Rate 16 17 16 Blood Pressure 124/64 123/64 Pulse Oximetry 89 L 91 L 12/29/17 17:00 12/29/17 17:30 12/29/17 18:00 Temperature Pulse Rate 102 H 97 H 96 H Respiratory Rate 21 17 17 Blood Pressure 131/70 128/65 108/60 Pulse Oximetry 91 L 93 L 91 L 12/29/17 18:31 12/29/17 19:00 12/29/17 19:30 Temperature Pulse Rate 100 H 96 H 98 H Respiratory Rate 17 16 17 Blood Pressure 132/68 117/63 121/69 Pulse Oximetry 88 L 91 L 92 L 12/29/17 19:46 12/29/17 20:00 12/29/17 20:30 Temperature 37.2 C Pulse Rate 102 H 100 H 102 H Respiratory Rate 16 17 16 Blood Pressure 119/69 113/58 L Pulse Oximetry 93 L 93 L 12/29/17 21:00 12/29/17 21:31 12/29/17 22:00 Temperature Pulse Rate 104 H 104 H 97 H Respiratory Rate 17 19 16 Blood Pressure 123/69 123/96 H 95/55 L Pulse Oximetry 92 L 92 L 91 L 12/29/17 22:30 12/29/17 23:00 12/29/17 23:30 Temperature Pulse Rate 90 92 H 93 H Respiratory Rate 17 15 17 Blood Pressure 91/53 L 97/57 L 95/58 L Pulse Oximetry 91 L 91 L 93 L 12/29/17 23:34 12/29/17 23:41 12/30/17 00:00 Temperature 36.9 C Pulse Rate 96 H 97 H Respiratory Rate 18 18 18 Blood Pressure 98/66 L Pulse Oximetry 92 L 12/30/17 00:30 12/30/17 01:00 12/30/17 01:30 Temperature Pulse Rate 93 H 91 H 88 Respiratory Rate 16 13 15 Blood Pressure 97/54 L 95/53 L 99/57 L Pulse Oximetry 92 L 91 L 91 L 12/30/17 02:00 12/30/17 02:30 12/30/17 03:00 Temperature Pulse Rate 87 87 105 H Respiratory Rate 13 13 23 Blood Pressure 112/64 103/59 L 156/83 H Pulse Oximetry 93 L 93 L 12/30/17 03:30 12/30/17 03:35 12/30/17 04:00 Temperature 36.9 C Pulse Rate 96 H 96 H 96 H Respiratory Rate 21 16 51 H Blood Pressure 113/60 106/57 L Pulse Oximetry 83 L 89 L 12/30/17 04:30 12/30/17 05:00 12/30/17 05:30 Temperature Pulse Rate 97 H 93 H 96 H Respiratory Rate 32 H 37 H 47 H Blood Pressure 100/56 L 112/57 L 122/63 Pulse Oximetry 89 L 93 L 95 12/30/17 06:00 12/30/17 06:30 12/30/17 07:00 Temperature Pulse Rate 89 92 H 90 Respiratory Rate 28 H 29 H 35 H Blood Pressure 111/58 L 112/59 L 105/60 Pulse Oximetry 95 95 95 12/30/17 07:53 12/30/17 07:54 12/30/17 08:00 Temperature 36.8 C Pulse Rate 84 88 Respiratory Rate 18 37 H Blood Pressure 126/63 Pulse Oximetry 95 96 12/30/17 11:22 12/30/17 12:00 12/30/17 12:10 Temperature 36.7 C Pulse Rate 88 87 Respiratory Rate 18 20 20 Blood Pressure 86/50 L 114/56 L Pulse Oximetry 93 L Intake & Output 12/29/17 12/30/17 12/30/17 18:59 06:59 18:59 Intake Total 856 / 856 1055 / 1055 Output Total 550 / 550 2009 Balance 306 / 306 -955 / -955 Weight 62 kg Intake: Tube Feeding 456 / 456 535 / 535 Tube Irrigant 400 / 400 120 / 120 Water Bolus Amount 400 / 400 Output: Urine Amount (Catheter) 550 / 550 2009 Indwelling Urethral Catheter 550 / 550 2009 Result Diagrams: 12/30/17 05:13 12/30/17 05:13 Objective Remarks: GENERAL: 62-year-old cachectic male in no apparent distress. Communicating in writing. SKIN: Warm and dry. No rash HEAD: Atraumatic. Normocephalic. EYES: Pupils equal and round. No scleral icterus. No injection or drainage. ENT: No nasal bleeding or discharge. Mucous membranes pink and moist. Tongue less edematous protruding from mouth unable to open mouth lips slightly less edematous. Inability to view oral aperture or oral pharynx NECK: Trachea midline. No JVD. Noted right sided neck mass. 8.0 Shiley tracheostomy in situ CARDIOVASCULAR: Normal rate, regular rhythm. Right chest [id number] RESPIRATORY: No accessory muscle use. Clear to auscultation. Breath sounds equal bilaterally. GASTROINTESTINAL: Abdomen soft, non-tender, nondistended. No guarding. PEG tube insitu MUSCULOSKELETAL: Extremities without clubbing, cyanosis, or edema. No obvious deformities. NEUROLOGICAL: GCS 11T Awake and alert. RASS 0. No gross focal/sensory deficits. Follows commands in all 4 extremities. Patient nodding head to yes and no questions, Assessment and Plan - Assessment and Plan Plan: Neuro/Psych: Insomnia Febrile illness-resolved acute Pain associated with head/neck cancer Acetaminophen 650 mg every 6 hours as needed for pain and/or temperature Continue Oxycodone 10 mg q 4HR PRN for pain Alprazolam 0.5 mg every 6 hours as needed for agitation Temazepam 15 mg at night as needed insomnia pain is poorly controlled with opiate therapy. opiates are indicated in this malignant pain. will add multimodal therapy: - start gabapentin 300mg po q8h - start tizanidine 4mg po q12h (for alpha-2 agonism) - continue po oxycodone - continue iv morphine for breakthrough - prn tylenol Respiratory: Ventilator dependent hypoxemic respiratory failure- improving. COPD exacerbation Lung mass Head and neck cancer -neck mass Airway compromise Significant oral secretions Class IV Mallampati rating 12/20 S/P Emergent tracheostomy to secure airway, 8.0 Shiley 12/21 trach collar trials on .40% initiated. Patient placed back on CPAP 12/24 secondary to hypoxemia and worsening chest x-ray Continue budesonide/formoterol 160/4.5 2 puffs twice daily Albuterol/ipratropium aerosols every 4 hours with albuterol aerosols every 2 hours as indicated for dyspnea Ventilator bundle Patient placed on CPAP 10/ overnight and trach collar trials during the day continue daily weaning trials. will need placement for long-term wean. Hematology oncology following for chemotherapy 12/22 Patient seen by radiation oncology plan for XRT initiation today low-dose Levsin 0.125mg q6h for secretion management. Cardiovascular: Hypertension Maintain MAP > greater than 65 /renal: Maintain condom catheter -- Strict I/Os FEN/GI: PEG placement 12/19 Nausea and vomiting Glucerna 1.5 currently at goal 65 cc/hr. minimal residuals noted. Currently at 30 cc an hour. Dietary consultation Bowel regimen with docusate sodium 100 mg twice daily Currently in free water 200 cc every 8 hours per ID Heme/ID: Head and neck cancer Sepsis- resolved Leukocytosis Hematology oncology following-patient was tentatively scheduled for chemotherapy to initiate 12/20-we will follow up the recommendations Patient was initiated on Levaquin and vancomycin on 12/20. now s/p full course of abx. ID following Blood urine and sputum cultures-NGTD WBC downtrending, afebrile Endocrine: Diabetes mellitus Glucose monitoring per ICU protocol beam dose every 6 hours aspart -- SSI Prophylaxis: GI Prophylaxis Lansoprazole DVT Prophylaxis -- SCDs Enoxaparin Lines: Left radial A-line dc'd 12/22, right chest [id number]
--- NOTE | 2017-12-30 13:03 | P.PNONC ---
Subjective Interval history: Afebrile overnight. Pt lying in bed in no acute distress. States chemo went well yesterday. No complaints at this time. Per RN his radiation simulation was rescheduled until Tuesday due to logistical issues. She also reports that pt was able to stand up and walk around room yesterday. Objective Vital Signs/Intake & Output: Vital Signs 12/29/17 15:37 12/29/17 16:00 12/29/17 16:30 Temperature Pulse Rate 87 101 H 100 H Respiratory Rate 16 17 16 Blood Pressure 124/64 123/64 Pulse Oximetry 89 L 91 L 12/29/17 17:00 12/29/17 17:30 12/29/17 18:00 Temperature Pulse Rate 102 H 97 H 96 H Respiratory Rate 21 17 17 Blood Pressure 131/70 128/65 108/60 Pulse Oximetry 91 L 93 L 91 L 12/29/17 18:31 12/29/17 19:00 12/29/17 19:30 Temperature Pulse Rate 100 H 96 H 98 H Respiratory Rate 17 16 17 Blood Pressure 132/68 117/63 121/69 Pulse Oximetry 88 L 91 L 92 L 12/29/17 19:46 12/29/17 20:00 12/29/17 20:30 Temperature 98.9 F Pulse Rate 102 H 100 H 102 H Respiratory Rate 16 17 16 Blood Pressure 119/69 113/58 L Pulse Oximetry 93 L 93 L 12/29/17 21:00 12/29/17 21:31 12/29/17 22:00 Temperature Pulse Rate 104 H 104 H 97 H Respiratory Rate 17 19 16 Blood Pressure 123/69 123/96 H 95/55 L Pulse Oximetry 92 L 92 L 91 L 12/29/17 22:30 12/29/17 23:00 12/29/17 23:30 Temperature Pulse Rate 90 92 H 93 H Respiratory Rate 17 15 17 Blood Pressure 91/53 L 97/57 L 95/58 L Pulse Oximetry 91 L 91 L 93 L 12/29/17 23:34 12/29/17 23:41 12/30/17 00:00 Temperature 98.4 F Pulse Rate 96 H 97 H Respiratory Rate 18 18 18 Blood Pressure 98/66 L Pulse Oximetry 92 L 12/30/17 00:30 12/30/17 01:00 12/30/17 01:30 Temperature Pulse Rate 93 H 91 H 88 Respiratory Rate 16 13 15 Blood Pressure 97/54 L 95/53 L 99/57 L Pulse Oximetry 92 L 91 L 91 L 12/30/17 02:00 12/30/17 02:30 12/30/17 03:00 Temperature Pulse Rate 87 87 105 H Respiratory Rate 13 13 23 Blood Pressure 112/64 103/59 L 156/83 H Pulse Oximetry 93 L 93 L 12/30/17 03:30 12/30/17 03:35 12/30/17 04:00 Temperature 98.4 F Pulse Rate 96 H 96 H 96 H Respiratory Rate 21 16 51 H Blood Pressure 113/60 106/57 L Pulse Oximetry 83 L 89 L 12/30/17 04:30 12/30/17 05:00 12/30/17 05:30 Temperature Pulse Rate 97 H 93 H 96 H Respiratory Rate 32 H 37 H 47 H Blood Pressure 100/56 L 112/57 L 122/63 Pulse Oximetry 89 L 93 L 95 12/30/17 06:00 12/30/17 06:30 12/30/17 07:00 Temperature Pulse Rate 89 92 H 90 Respiratory Rate 28 H 29 H 35 H Blood Pressure 111/58 L 112/59 L 105/60 Pulse Oximetry 95 95 95 12/30/17 07:53 12/30/17 07:54 12/30/17 08:00 Temperature 98.2 F Pulse Rate 84 88 Respiratory Rate 18 37 H Blood Pressure 126/63 Pulse Oximetry 95 96 12/30/17 11:22 12/30/17 12:00 12/30/17 12:10 Temperature 98.0 F Pulse Rate 88 87 Respiratory Rate 18 20 20 Blood Pressure 86/50 L 114/56 L Pulse Oximetry 93 L Intake & Output 12/29/17 12/30/17 12/30/17 18:59 06:59 18:59 Intake Total 856 / 856 1055 / 1055 Output Total 550 / 550 2009 Balance 306 / 306 -955 / -955 Weight 62 kg Intake: Tube Feeding 456 / 456 535 / 535 Tube Irrigant 400 / 400 120 / 120 Water Bolus Amount 400 / 400 Output: Urine Amount (Catheter) 550 / 550 2009 Indwelling Urethral Catheter 550 / 550 2009 Result Diagrams: 12/30/17 05:13 12/30/17 05:13 Laboratory Results: Laboratory Results - last 24 hr 07/05/18 07/05/18 07/05/18 10:05 10:05 17:19 WBC RBC Hgb Hct MCV MCH MCHC RDW Plt Count MPV Sodium Potassium Chloride Carbon Dioxide Anion Gap BUN Creatinine Estimated GFR POC Glucose 244 H Random Glucose Calcium Magnesium 2.1 Total Bilirubin 0.3 Direct Bilirubin 0.1 Indirect Bilirubin 0.2 AST 6 L ALT 10 L Alkaline Phosphatase 91 Total Protein 6.1 L Albumin 2.3 L 12/29/17 12/30/17 12/30/17 23:30 05:13 05:13 WBC 12.4 H RBC 3.68 L Hgb 10.8 L Hct 32.7 L MCV 88.8 MCH 29.3 MCHC 33.0 RDW 15.8 Plt Count 406 MPV 9.0 Sodium 134 L Potassium 4.9 Chloride 95 L Carbon Dioxide 31.5 Anion Gap 8 BUN 24 H Creatinine 0.43 L Estimated GFR Greater than 89 POC Glucose 303 H Random Glucose 249 H Calcium 8.9 Magnesium Total Bilirubin Direct Bilirubin Indirect Bilirubin AST ALT Alkaline Phosphatase Total Protein Albumin 12/30/17 12/30/17 05:15 11:01 WBC RBC Hgb Hct MCV MCH MCHC RDW Plt Count MPV Sodium Potassium Chloride Carbon Dioxide Anion Gap BUN Creatinine Estimated GFR POC Glucose 267 H 248 H Random Glucose Calcium Magnesium Total Bilirubin Direct Bilirubin Indirect Bilirubin AST ALT Alkaline Phosphatase Total Protein Albumin Culture Results: Microbiology 12/27/17 10:37 Gram Stain - Final Sputum - Endotracheal Sputum Culture - Final Heavy growth normal respiratory kali Medications: Active Medications Generic Name Dose Route Start Last Admin Trade Name Freq PRN Reason Stop Dose Admin Acetaminophen 650 mg 12/25/17 00:01 12/27/17 14:26 Tylenol PO 650 mg Q6H PRN Administration FEVER/PAIN SCALE 1 to 2 Albuterol 1 ampul 12/26/17 20:00 12/30/17 11:23 Duoneb Neb (Brenden) NEB 1 ampul Q4HR NEB BRENDEN Administration Alprazolam 0.5 mg 12/25/17 00:01 12/28/17 14:13 Xanax G-TUBE 0.5 mg Q6H PRN Administration Anxiety/Agitation Artificial Tears 1 drop 12/26/17 17:00 12/30/17 08:01 Tears Naturale Opth Drops EACH EYE 1 drop Q8H BRENDEN Administration Budesonide/Formoterol Fumarate 2 puff 12/25/17 09:00 12/30/17 07:59 Symbicort 160/4.5 Mcg Inh INH Not Given BID [facility] Chlorhexidine Gluconate 15 ml 12/25/17 09:00 12/30/17 08:02 Peridex 0.12% Liq SWISH-SPIT 15 ml BID BRENDEN Administration Docusate Sodium 100 mg 12/26/17 21:00 12/30/17 08:01 Colace Liq G-TUBE 100 mg BID BRENDEN Administration Enoxaparin Sodium 30 mg 12/25/17 11:00 12/30/17 11:07 Lovenox Inj SQ 30 mg Q24H BRENDEN Administration Gabapentin 300 mg 12/29/17 08:15 12/30/17 05:05 Neurontin Liq PO 300 mg Q8HR BRENDEN Administration Hyoscyamine 0.125 mg 12/29/17 08:30 12/30/17 11:07 Levsin PO 0.125 mg Q6HR BRENDEN Administration Insulin Aspart 0 unit 12/26/17 18:00 12/30/17 11:07 Novolog Insulin Suppl Scale Inj SQ 4 unit Q6HR BRENDEN Administration Protocol Lansoprazole 30 mg 12/27/17 09:00 12/30/17 08:00 Prevacid Solutab NG/OG 30 mg DAILY BRENDEN Administration Morphine Sulfate 2 mg 12/28/17 08:36 12/29/17 20:57 Morphine Inj IV.PUSH 2 mg Q2H PRN Administration PAIN SCALE 5-10/SEVERE COUGH Oxycodone HCl 10 mg 12/25/17 00:01 12/30/17 11:15 Roxicodone PO 10 mg Q4H PRN Administration Pain Scale 3 to 5 Sodium Chloride 2 ml 12/25/17 09:00 12/30/17 08:01 Ns Flush IV.FLUSH 2 ml BID BRENDEN Administration Sterile Water 200 ml 12/25/17 06:00 12/30/17 05:06 Free Water G-TUBE 200 ml Q8HR BRENDEN Administration Temazepam 15 mg 12/25/17 18:35 12/28/17 20:26 Restoril NG/OG 15 mg HS PRN Administration INSOMNIA Tizanidine HCl 4 mg 12/29/17 09:00 12/30/17 08:00 Zanaflex PO 4 mg Q12HR BRENDEN Administration Objective Remarks: GENERAL: Chronically ill appearing middle aged male, lying in bed in no acute distress. SKIN: Warm and dry. HEAD: Normocephalic. Oral tongue protrusion EYES: No scleral icterus. No injection or drainage. NECK: Supple, tracheostomy in place. On room air. +large right neck mass. Tender to palpation. CARDIOVASCULAR: Regular rate and rhythm RESPIRATORY: Anterior breath sounds equal bilaterally. Scattered rhonchi bilateral upper lobes. No accessory muscle use. GASTROINTESTINAL: Abdomen soft, non-tender, nondistended. PEG tube in place LUQ. EXTREMITIES: No cyanosis NEUROLOGICAL: Alert and oriented. Follows commands, writes on tablet. 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 A delay in his treatment coordinated by the [facility] resulted in his presentation to this hospital with a symptomatic large right neck and base of tongue/tonsil mass. s/p first dose of chemotherapy with carbo/taxol 12/22. Plan: 1. 2nd dose of chemotherapy with carbo/taxol given on 12/29/17. Pt tolerated well. 2. Continue pain management as needed. 3. Radiation simulation scheduled for Tuesday, unable to do on due to logistical issues. 4. Continue to monitor H&H. - Attending Statement The exam, history, and the medical decision-making described in the above note were completed with the assistance of the mid-level provider. I reviewed and agree with the findings presented. I attest that I had a [id number] encounter with the patient on the same day, and personally performed and documented my assessment and findings in the medical record. Patient writes "can I eat... Or drink?". Describes the obstruction at the locally advanced disease in the mouth. He is advised not to eat and drink to protect his airway. Tracheostomy is bypassed the airway so that he can breathe. Hopefully with continued response he would be able to regain some ability to swallow, and taste food. For now he is getting nutrition through the PEG tube feeding. He is not as cachectic as on his initial presentation. He tolerated week 2 of chemotherapy with carboplatin and Taxol. He is again showing a response with a decrease in the right neck mass. He is able to move his tongue. He still unable to retract the tongue inside his mouth.
[2017-12-30] MEDS: Morphine Inj 4 MG/ML Vial IV.PUSH PRN ×2 (17:31→21:38)
--- NOTE | 2017-12-30 18:03 | P.PNPL ---
Subjective Interval history: 62 YO WM wit H&N CA,RF, Trach ON PSV, trach collar Tolerates TF Awake, follows commands Was up in the room Physical Exam Vital signs: Vital Signs 12/29/17 18:31 12/29/17 19:00 12/29/17 19:30 Temperature Pulse Rate 100 H 96 H 98 H Respiratory Rate 17 16 17 Blood Pressure 132/68 117/63 121/69 Pulse Oximetry 88 L 91 L 92 L 12/29/17 19:46 12/29/17 20:00 12/29/17 20:30 Temperature 98.9 F Pulse Rate 102 H 100 H 102 H Respiratory Rate 16 17 16 Blood Pressure 119/69 113/58 L Pulse Oximetry 93 L 93 L 12/29/17 21:00 12/29/17 21:31 12/29/17 22:00 Temperature Pulse Rate 104 H 104 H 97 H Respiratory Rate 17 19 16 Blood Pressure 123/69 123/96 H 95/55 L Pulse Oximetry 92 L 92 L 91 L 12/29/17 22:30 12/29/17 23:00 12/29/17 23:30 Temperature Pulse Rate 90 92 H 93 H Respiratory Rate 17 15 17 Blood Pressure 91/53 L 97/57 L 95/58 L Pulse Oximetry 91 L 91 L 93 L 12/29/17 23:34 12/29/17 23:41 12/30/17 00:00 Temperature 98.4 F Pulse Rate 96 H 97 H Respiratory Rate 18 18 18 Blood Pressure 98/66 L Pulse Oximetry 92 L 12/30/17 00:30 12/30/17 01:00 12/30/17 01:30 Temperature Pulse Rate 93 H 91 H 88 Respiratory Rate 16 13 15 Blood Pressure 97/54 L 95/53 L 99/57 L Pulse Oximetry 92 L 91 L 91 L 12/30/17 02:00 12/30/17 02:30 12/30/17 03:00 Temperature Pulse Rate 87 87 105 H Respiratory Rate 13 13 23 Blood Pressure 112/64 103/59 L 156/83 H Pulse Oximetry 93 L 93 L 12/30/17 03:30 12/30/17 03:35 12/30/17 04:00 Temperature 98.4 F Pulse Rate 96 H 96 H 96 H Respiratory Rate 21 16 51 H Blood Pressure 113/60 106/57 L Pulse Oximetry 83 L 89 L 12/30/17 04:30 12/30/17 05:00 12/30/17 05:30 Temperature Pulse Rate 97 H 93 H 96 H Respiratory Rate 32 H 37 H 47 H Blood Pressure 100/56 L 112/57 L 122/63 Pulse Oximetry 89 L 93 L 95 12/30/17 06:00 12/30/17 06:30 12/30/17 07:00 Temperature Pulse Rate 89 92 H 90 Respiratory Rate 28 H 29 H 35 H Blood Pressure 111/58 L 112/59 L 105/60 Pulse Oximetry 95 95 95 12/30/17 07:53 12/30/17 07:54 12/30/17 08:00 Temperature 98.2 F Pulse Rate 84 88 Respiratory Rate 18 37 H Blood Pressure 126/63 Pulse Oximetry 95 96 12/30/17 11:22 12/30/17 12:00 12/30/17 12:10 Temperature 98.0 F Pulse Rate 88 87 Respiratory Rate 18 20 20 Blood Pressure 86/50 L 114/56 L Pulse Oximetry 93 L 12/30/17 15:45 12/30/17 16:00 Temperature 98.4 F Pulse Rate 75 79 Respiratory Rate 18 20 Blood Pressure 115/58 L Pulse Oximetry 94 L Intake & Output 12/29/17 12/30/17 12/30/17 18:59 06:59 18:59 Intake Total 856 / 856 1055 / 1055 Output Total 550 / 550 2009 Balance 306 / 306 -955 / -955 Weight 62 kg Intake: Tube Feeding 456 / 456 535 / 535 Tube Irrigant 400 / 400 120 / 120 Water Bolus Amount 400 / 400 Output: Urine Amount (Catheter) 550 / 550 2009 Indwelling Urethral Catheter 550 / 550 2009 GENERAL: MBMN NAD SKIN: Warm and dry. HEAD: Normocephalic. EYES: No scleral icterus. No injection or drainage. NECK: Supple, trachea midline. No JVD or lymphadenopathy. Neck mass has trach CARDIOVASCULAR: Regular rate and rhythm without murmurs, gallops, or rubs. RESPIRATORY: Breath sounds equal bilaterally. No accessory muscle use. GASTROINTESTINAL: Abdomen soft, non-tender, nondistended. has PEG MUSCULOSKELETAL: No cyanosis, or edema. BACK: Nontender without obvious deformity. No CVA tenderness. - Urinary Catheter Management Indwelling Urethral Catheter Cath placed during this visit: yes Reason for continuing: Hourly intake/output Insertion date: 12/20/17 Insertion time: 00:00 Assessment and Plan - Plan Resp failure S/P Emergent trach Neck Mass H&N Ca COPD PLAN: Cont Vent Support, PSV Fio2 45% Aerosol nebs cont Abx Tube feeding For Radiation simulation on Tuesday
[2017-12-31] MEDS: Morphine Inj 4 MG/ML Vial IV.PUSH PRN ×5 (00:45→22:54)
[2017-12-31] MEDS: Insulin NovoLOG Aspart Correctional Sugar Inj SQ SCH ×4 (01:10→19:50)
[2017-12-31] MEDS: Artificial Tears Opth Drops 15 ML Bottle EACH EYE SCH ×3 (01:13→17:32)
[2017-12-31] MEDS: Gabapentin Liq 250 MG/5 ML UDC PO SCH ×3 (05:39→23:06)
[2017-12-31 05:50] LABS: Hemoglobin 11.5 gm/dL (13.0-17.0); Mean Corpuscular HGB Conc 32.9 % (32.0-36.0); Mean Corpuscular Hemoglobin 29.2 pg (27.0-34.0); Mean Corpuscular Volume 88.7 fL (80.0-100.0); Mean Platelet Volume 8.8 fL (7.0-11.0); Platelet Count 493 th/mm3 (150-450); Red Blood Count 3.95 mil/mm3 (4.50-5.90); Red Cell Distribution Width 15.9 % (11.6-17.2); White Blood Count 20.5 th/mm3 (4.0-11.0)
[2017-12-31 06:14] LABS: Anion Gap 7 meq/L (5-15); Blood Urea Nitrogen 18 mg/dL (7-18); Calcium 9.1 mg/dL (8.5-10.1); Carbon Dioxide 34.5 meq/L (21.0-32.0); Chloride 93 meq/L (98-107); Glomerular Filtration Rate Greater Than 89 mL/min (>89); Glucose,Random 166 mg/dL (74-106); Potassium 4.7 meq/L (3.5-5.1); Sodium 134 meq/L (136-145)
[2017-12-31] MEDS: Docusate Sodium Liq 100 MG/10 ML UDC G-TUBE SCH ×2 (09:12→20:06)
--- NOTE | 2017-12-31 10:29 | P.PNONC ---
Subjective Interval history: Afebrile Patient remains nonverbal due to trach Overall frustrated that his hospitalization Currently with pain on the right side of his neck; the nurse is about to give a dose of morphine Objective Vital Signs/Intake & Output: Vital Signs 12/30/17 11:22 12/30/17 12:00 12/30/17 12:10 Temperature 98.0 F Pulse Rate 88 87 Respiratory Rate 18 20 20 Blood Pressure 86/50 L 114/56 L Pulse Oximetry 93 L 12/30/17 15:45 12/30/17 16:00 12/30/17 20:00 Temperature 98.4 F 98.6 F Pulse Rate 75 79 84 Respiratory Rate 18 20 16 Blood Pressure 115/58 L 138/63 Pulse Oximetry 94 L 95 12/30/17 21:40 12/31/17 00:00 12/31/17 01:13 Temperature 98.4 F Pulse Rate 75 Respiratory Rate 16 16 Blood Pressure 116/61 Pulse Oximetry 98 12/31/17 04:00 12/31/17 09:15 Temperature 98.4 F Pulse Rate 84 Respiratory Rate 16 Blood Pressure 166/72 H Pulse Oximetry 97 95 Intake & Output 12/30/17 12/31/17 12/31/17 18:59 06:59 18:59 Intake Total 1088 / 1088 1080 / 1080 Output Total 750 / 750 900 / 900 Balance 338 / 338 180 / 180 Weight 136 lb 10.986 oz Intake: Tube Feeding 568 / 568 620 / 620 Tube Irrigant 120 / 120 60 / 60 Water Bolus Amount 400 / 400 400 / 400 Output: Urine 750 / 750 900 / 900 Other: # Bowel Movements 0 0 Result Diagrams: 12/31/17 05:20 12/31/17 05:20 Laboratory Results: Laboratory Results - last 24 hr 12/30/17 12/30/17 12/31/17 11:01 16:59 00:56 WBC RBC Hgb Hct MCV MCH MCHC RDW Plt Count MPV Sodium Potassium Chloride Carbon Dioxide Anion Gap BUN Creatinine Estimated GFR POC Glucose 248 H 241 H 208 H Random Glucose Calcium 12/31/17 12/31/17 12/31/17 05:20 05:20 05:41 WBC 20.5 H RBC 3.95 L Hgb 11.5 L Hct 35.0 L MCV 88.7 MCH 29.2 MCHC 32.9 RDW 15.9 Plt Count 493 H MPV 8.8 Sodium 134 L Potassium 4.7 Chloride 93 L Carbon Dioxide 34.5 H Anion Gap 7 BUN 18 Creatinine 0.34 L Estimated GFR Greater than 89 POC Glucose 161 H Random Glucose 166 H Calcium 9.1 Culture Results: Microbiology 12/27/17 10:37 Gram Stain - Final Sputum - Endotracheal Sputum Culture - Final Heavy growth normal respiratory kali Medications: Active Medications Generic Name Dose Route Start Last Admin Trade Name Freq PRN Reason Stop Dose Admin Acetaminophen 650 mg 12/25/17 00:01 12/27/17 14:26 Tylenol PO 650 mg Q6H PRN Administration FEVER/PAIN SCALE 1 to 2 Alprazolam 0.5 mg 12/25/17 00:01 12/28/17 14:13 Xanax G-TUBE 0.5 mg Q6H PRN Administration Anxiety/Agitation Artificial Tears 1 drop 12/26/17 17:00 12/31/17 09:13 Tears Naturale Opth Drops EACH EYE 1 drop Q8H BRENDEN Administration Budesonide/Formoterol Fumarate 2 puff 12/25/17 09:00 12/30/17 21:13 Symbicort 160/4.5 Mcg Inh INH 2 puff BID BRENDEN Administration Chlorhexidine Gluconate 15 ml 12/25/17 09:00 12/30/17 21:14 Peridex 0.12% Liq SWISH-SPIT 15 ml BID BRENDEN Administration Docusate Sodium 100 mg 12/26/17 21:00 12/31/17 09:12 Colace Liq G-TUBE 100 mg BID BRENDEN Administration Enoxaparin Sodium 30 mg 12/25/17 11:00 12/30/17 11:07 Lovenox Inj SQ 30 mg Q24H BRENDEN Administration Gabapentin 300 mg 12/29/17 08:15 12/31/17 05:39 Neurontin Liq PO 300 mg Q8HR BRENDEN Administration Hyoscyamine 0.125 mg 12/29/17 08:30 12/31/17 05:38 Levsin PO 0.125 mg Q6HR BRENDEN Administration Insulin Aspart 0 unit 12/26/17 18:00 12/31/17 01:10 Novolog Insulin Suppl Scale Inj SQ 4 unit Q6HR BRENDEN Administration Protocol Lansoprazole 30 mg 12/27/17 09:00 12/31/17 09:11 Prevacid Solutab NG/OG 30 mg DAILY BRENDEN Administration Morphine Sulfate 2 mg 12/28/17 08:36 12/31/17 09:11 Morphine Inj IV.PUSH 2 mg Q2H PRN Administration PAIN SCALE 5-10/SEVERE COUGH Oxycodone HCl 10 mg 12/25/17 00:01 12/30/17 15:28 Roxicodone PO 10 mg Q4H PRN Administration Pain Scale 3 to 5 Sodium Chloride 2 ml 12/25/17 09:00 12/31/17 09:12 Ns Flush IV.FLUSH 2 ml BID BRENDEN Administration Sterile Water 200 ml 12/25/17 06:00 12/31/17 05:39 Free Water G-TUBE 200 ml Q8HR BRENDEN Administration Temazepam 15 mg 12/25/17 18:35 12/28/17 20:26 Restoril NG/OG 15 mg HS PRN Administration INSOMNIA Tizanidine HCl 4 mg 12/29/17 09:00 12/31/17 09:11 Zanaflex PO 4 mg Q12HR BRENDEN Administration Objective Remarks: GENERAL: Cachectic older male resting in bed mechanically ventilated via trach SKIN: Warm and dry. HEAD: Normocephalic. EYES: No injection or drainage. NECK: Supple, trachea midline. CARDIOVASCULAR: +S1/S2. 3/6 systolic murmur auscultated RESPIRATORY: Mechanically ventilated via trach. Scattered rhonchi. GASTROINTESTINAL: Abdomen soft, non-tender, nondistended. PEG tube in place EXTREMITIES: No cyanosis, or edema. MUSCULOSKELETAL: + Muscle wasting NEUROLOGICAL: Inability to speak due to trach. Follows commands. Nods head yes and no appropriately. 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 A delay in his treatment coordinated by the [facility] resulted in his presentation to this hospital with a symptomatic large right neck and base of tongue/tonsil mass. s/p first dose of chemotherapy with carbo/taxol 12/22, second cycle was 12/29. Plan: 1. Patient doing well status post second cycle of carbotaxol. 2. Radiation simulation scheduled for Tuesday. 3. Continue supportive care 4. Monitor CBC. - Attending Statement The exam, history, and the medical decision-making described in the above note were completed with the assistance of the mid-level provider. I reviewed and agree with the findings presented. I attest that I had a [id number] encounter with the patient on the same day, and personally performed and documented my assessment and findings in the medical record. Patient denies significant pain. Right neck mass noted. Patient tolerated 2 cycles of carboplatin and Taxol. He is going to have radiation simulation on Tuesday. Continue supportive care.
--- NOTE | 2017-12-31 14:39 | P.PNCC ---
Subjective Subjective Remarks/Hospital Course: Remarks/Hospital Course This is a 62-year-old male with a past medical history of squamous cell carcinoma of the head and neck, lung mass COPD, hypertension diabetes with a history of tobacco abuse, that presented on 12/18. The patient regularly is seen at the [facility] however he was not afforded treatment at this time . The patient was admitted to the medical floor, hematology oncology had been consulted plans were for chemotherapy to be initiated today the patient underwent PEG placement yesterday. Late this afternoon the patient was noted to be hypoxemic with significant airway edema , O2 sat in the 80's, Pao2 59 on 100% nonrebreather ,in the setting of a large tumor mass .A Halicat was called , and the patient was emergently transferred to [facility] [place]. Upon transfer the patient was immediately out evaluated and noted to be in significant respiratory distress, oral airway significantly edematous tongue protruding out of mouth Mallampati unobtainable upon evaluation. The patient appeared to be alert and could not yes and no to questions unable to speak. Quick assessment of CT scans that were previously done of the neck showed a large tumor mass crossing midline. Dr. Cabello , Anesthesiologist in to evaluate patient at bedside discussed case with him. Emergency airway equipment placed at bedside trauma surgery was notified I spoke with Dr. Rangel, patient emergently scheduled for tracheostomy to secure airway. A left radial A-line was placed ABG on 100% nonrebreather was obtained prior to going PaO2 had risen to 60 on nonrebreather mask. 12/21: No acute events overnight. The patient underwent emergency tracheostomy to secure the airway last evening. Norepinephrine and fentanyl infusions have been discontinued this morning patient has been transitioned onto CPAP trials and denies any discomfort. Patient is communicating with board and marker. PEG tube in situ tube feedings Glucerna currently at 30 cc/an hour continue to be advanced to goal. FiO2 has been decreased to .45% 12/22: No acute events overnight. The patient was maintained on CPAP trials throughout the night and this afternoon plan trach collar trials this afternoon PT OT has been initiated. Patient tolerating tube feeds no residuals. 12/23: Patient progressing well currently on trach collar trials greater than 24 hours. Patient tolerating tube feeds diet. Chemotherapy initiated yesterday. Patient denies pain. 12/24: Late entry note patient seen at 11:40 AM. Overnight the patient became agitated pulling off lines and tubes. Patient had previous stated that he has an anxiety disorder ,Xanax was ordered however not given. Upon my evaluation this a.m. O2 saturation noted to be low patient placed on FiO2 of 80% stat ABG was performed to reveal hypoxemia the patient was placed back on CPAP stat chest x-ray was performed which showed worsening airspace disease in the bases. 12/25: Patient noted with episodes of nausea, tube feeds held. Zofran given for nausea. The patient continues to have increased FiO2 requirements the patient is being placed on trach collar during the day CPAP at night. 12/26: Vitals not documented. Currently on CPAP 10/5 and 40%. No bowel movements documented. Not on a bowel regimen. 12/27: Remains on mechanical ventilation via tracheostomy. On CPAP trials. 12/28: no changes. still with cpap trials. 12/29: tolerating t-piece trials. rested on cpap overnight. complaints of continued pain around tumor site, as well as significant secretions. Subjective: 12/30: clinically doing well. denies complaints. asked that speech re-evaluate him because he would like to start eating real food again. plan for XRT to start today. 12/31: On mechanical ventilation via trach. Tolerating T piece trials Objective Vital Signs / I&O: Vital Signs 12/30/17 15:45 12/30/17 16:00 12/30/17 20:00 Temperature 98.4 F 98.6 F Pulse Rate 75 79 84 Respiratory Rate 18 20 16 Blood Pressure 115/58 L 138/63 Pulse Oximetry 94 L 95 12/30/17 21:40 12/31/17 00:00 12/31/17 01:13 Temperature 98.4 F Pulse Rate 75 Respiratory Rate 16 16 Blood Pressure 116/61 Pulse Oximetry 98 12/31/17 04:00 12/31/17 08:00 12/31/17 09:15 Temperature 98.4 F Pulse Rate 84 80 Respiratory Rate 16 Blood Pressure 166/72 H Pulse Oximetry 97 95 12/31/17 10:00 Temperature Pulse Rate 80 Respiratory Rate Blood Pressure Pulse Oximetry Intake & Output 12/30/17 12/31/17 12/31/17 18:59 06:59 18:59 Intake Total 1088 / 1088 1080 / 1080 Output Total 750 / 750 900 / 900 Balance 338 / 338 180 / 180 Weight 62 kg Intake: Tube Feeding 568 / 568 620 / 620 Tube Irrigant 120 / 120 60 / 60 Water Bolus Amount 400 / 400 400 / 400 Output: Urine 750 / 750 900 / 900 Other: Date of Last Bowel Movement 12/28/17 # Bowel Movements 0 0 Result Diagrams: 12/31/17 05:20 12/31/17 05:20 Objective Remarks: GENERAL: 62-year-old cachectic male in no apparent distress. Communicating in writing. SKIN: Warm and dry. No rash HEAD: Atraumatic. Normocephalic. EYES: Pupils equal and round. No scleral icterus. No injection or drainage. ENT: No nasal bleeding or discharge. Mucous membranes pink and moist. Tongue less edematous protruding from mouth unable to open mouth lips slightly less edematous. Inability to view oral aperture or oral pharynx NECK: Trachea midline. No JVD. Noted right sided neck mass. 8.0 Shiley tracheostomy in situ CARDIOVASCULAR: Normal rate, regular rhythm. Right chest [id number] RESPIRATORY: No accessory muscle use. Clear to auscultation. Breath sounds equal bilaterally. GASTROINTESTINAL: Abdomen soft, non-tender, nondistended. No guarding. PEG tube insitu MUSCULOSKELETAL: Extremities without clubbing, cyanosis, or edema. No obvious deformities. NEUROLOGICAL: GCS 11T Awake and alert. RASS 0. No gross focal/sensory deficits. Follows commands in all 4 extremities. Patient nodding head to yes and no questions, Assessment and Plan - Assessment and Plan Plan: Neuro/Psych: Insomnia Febrile illness-resolved acute Pain associated with head/neck cancer Acetaminophen 650 mg every 6 hours as needed for pain and/or temperature Continue Oxycodone 10 mg q 4HR PRN for pain Alprazolam 0.5 mg every 6 hours as needed for agitation Temazepam 15 mg at night as needed insomnia pain is poorly controlled with opiate therapy. opiates are indicated in this malignant pain. will add multimodal therapy: - start gabapentin 300mg po q8h - start tizanidine 4mg po q12h (for alpha-2 agonism) - continue po oxycodone - continue iv morphine for breakthrough - prn tylenol Respiratory: Ventilator dependent hypoxemic respiratory failure- improving. COPD exacerbation Lung mass Head and neck cancer -neck mass Airway compromise Significant oral secretions Class IV Mallampati rating 6/26 S/P Emergent tracheostomy to secure airway, 8.0 Shiley 12/21 trach collar trials on .40% initiated. Patient placed back on CPAP 12/24 secondary to hypoxemia and worsening chest x-ray Continue budesonide/formoterol 160/4.5 2 puffs twice daily Albuterol/ipratropium aerosols every 4 hours with albuterol aerosols every 2 hours as indicated for dyspnea Ventilator bundle Patient placed on CPAP 10/5 overnight and trach collar trials during the day continue daily weaning trials. will need placement for long-term wean. Hematology oncology following for chemotherapy 12/22 Patient seen by radiation oncology plan for XRT initiation today low-dose Levsin 0.125mg q6h for secretion management. Cardiovascular: Hypertension Maintain MAP > greater than 65 /renal: Maintain condom catheter -- Strict I/Os FEN/GI: PEG placement 12/19 Nausea and vomiting Glucerna 1.5 currently at goal 65 cc/hr. minimal residuals noted. Currently at 30 cc an hour. Dietary consultation Bowel regimen with docusate sodium 100 mg twice daily Currently in free water 200 cc every 8 hours per ID Heme/ID: Head and neck cancer Sepsis- resolved Leukocytosis Hematology oncology following-patient was tentatively scheduled for chemotherapy to initiate 12/20-we will follow up the recommendations Patient was initiated on Levaquin and vancomycin on 12/20. now s/p full course of abx. ID following Blood urine and sputum cultures-NGTD WBC downtrending, afebrile Endocrine: Diabetes mellitus Glucose monitoring per ICU protocol beam dose every 6 hours aspart -- SSI Prophylaxis: GI Prophylaxis Lansoprazole DVT Prophylaxis -- SCDs Enoxaparin Lines: Left radial A-line dc'd 12/22, right chest [id number]
[2017-12-31] MEDS: Budesonide-Formoterol 160/4.5 MCG 6 GM Inhaler INH SCH ×2 (17:29→20:07)
[2017-12-31] MEDS: Chlorhexidine Gluconate 0.12% Liq 15 ML UDC SWISH-SPIT SCH ×2 (17:29→22:57)
[2017-12-31] MEDS: Enoxaparin Inj 30 MG/0.3 ML Syringe SQ SCH (17:30)
[2018-01-01] MEDS: Insulin NovoLOG Aspart Correctional Sugar Inj SQ SCH ×4 (00:36→20:56)
[2018-01-01] MEDS: Morphine Inj 4 MG/ML Vial IV.PUSH PRN ×7 (00:55→20:54)
[2018-01-01] MEDS: Artificial Tears Opth Drops 15 ML Bottle EACH EYE SCH ×3 (01:00→18:35)
[2018-01-01] MEDS: Temazepam 15 MG Capsule NG/OG PRN (01:55)
[2018-01-01 04:10] LABS: Hematocrit 34.8 % (39.0-51.0); Hemoglobin 11.5 gm/dL (13.0-17.0); Mean Corpuscular HGB Conc 32.9 % (32.0-36.0); Mean Corpuscular Hemoglobin 28.8 pg (27.0-34.0); Mean Corpuscular Volume 87.6 fL (80.0-100.0); Mean Platelet Volume 7.9 fL (7.0-11.0); Platelet Count 493 th/mm3 (150-450); Red Blood Count 3.97 mil/mm3 (4.50-5.90); Red Cell Distribution Width 15.2 % (11.6-17.2); White Blood Count 20.9 th/mm3 (4.0-11.0)
[2018-01-01 04:38] LABS: Anion Gap 7 meq/L (5-15); Blood Urea Nitrogen 17 mg/dL (7-18); Calcium 9.3 mg/dL (8.5-10.1); Carbon Dioxide 33.3 meq/L (21.0-32.0); Chloride 91 meq/L (98-107); Glomerular Filtration Rate Greater Than 89 mL/min (>89); Glucose,Random 179 mg/dL (74-106); Potassium 4.6 meq/L (3.5-5.1); Sodium 131 meq/L (136-145)
[2018-01-01] MEDS: Gabapentin Liq 250 MG/5 ML UDC PO SCH ×3 (06:05→23:14)
--- NOTE | 2018-01-01 08:20 | P.PNCC ---
Subjective Subjective Remarks/Hospital Course: Remarks/Hospital Course This is a 62-year-old male with a past medical history of squamous cell carcinoma of the head and neck, lung mass COPD, hypertension diabetes with a history of tobacco abuse, that presented on 12/18. The patient regularly is seen at the [facility] however he was not afforded treatment at this time . The patient was admitted to the medical floor, hematology oncology had been consulted plans were for chemotherapy to be initiated today the patient underwent PEG placement yesterday. Late this afternoon the patient was noted to be hypoxemic with significant airway edema , O2 sat in the 80's, Pao2 59 on 100% nonrebreather ,in the setting of a large tumor mass .A Halicat was called , and the patient was emergently transferred to [facility] [place]. Upon transfer the patient was immediately out evaluated and noted to be in significant respiratory distress, oral airway significantly edematous tongue protruding out of mouth Mallampati unobtainable upon evaluation. The patient appeared to be alert and could not yes and no to questions unable to speak. Quick assessment of CT scans that were previously done of the neck showed a large tumor mass crossing midline. Dr. Cabello , Anesthesiologist in to evaluate patient at bedside discussed case with him. Emergency airway equipment placed at bedside trauma surgery was notified I spoke with Dr. Rangel, patient emergently scheduled for tracheostomy to secure airway. A left radial A-line was placed ABG on 100% nonrebreather was obtained prior to going PaO2 had risen to 60 on nonrebreather mask. 12/21: No acute events overnight. The patient underwent emergency tracheostomy to secure the airway last evening. Norepinephrine and fentanyl infusions have been discontinued this morning patient has been transitioned onto CPAP trials and denies any discomfort. Patient is communicating with board and marker. PEG tube in situ tube feedings Glucerna currently at 30 cc/an hour continue to be advanced to goal. FiO2 has been decreased to .45% 12/22: No acute events overnight. The patient was maintained on CPAP trials throughout the night and this afternoon plan trach collar trials this afternoon PT OT has been initiated. Patient tolerating tube feeds no residuals. 12/23: Patient progressing well currently on trach collar trials greater than 24 hours. Patient tolerating tube feeds diet. Chemotherapy initiated yesterday. Patient denies pain. 12/24: Late entry note patient seen at 11:40 AM. Overnight the patient became agitated pulling off lines and tubes. Patient had previous stated that he has an anxiety disorder ,Xanax was ordered however not given. Upon my evaluation this a.m. O2 saturation noted to be low patient placed on FiO2 of 80% stat ABG was performed to reveal hypoxemia the patient was placed back on CPAP stat chest x-ray was performed which showed worsening airspace disease in the bases. 12/25: Patient noted with episodes of nausea, tube feeds held. Zofran given for nausea. The patient continues to have increased FiO2 requirements the patient is being placed on trach collar during the day CPAP at night. 12/26: Vitals not documented. Currently on CPAP 10/5 and 40%. No bowel movements documented. Not on a bowel regimen. 12/27: Remains on mechanical ventilation via tracheostomy. On CPAP trials. 12/28: no changes. still with cpap trials. 12/29: tolerating t-piece trials. rested on cpap overnight. complaints of continued pain around tumor site, as well as significant secretions. Subjective: 12/30: clinically doing well. denies complaints. asked that speech re-evaluate him because he would like to start eating real food again. plan for XRT to start today. 12/31: On mechanical ventilation via trach. Tolerating T piece trials 01/01: Remains on mechanical ventilation via trach. Objective Vital Signs / I&O: Vital Signs 12/31/17 09:00 12/31/17 09:15 12/31/17 10:00 Temperature Pulse Rate 78 81 Respiratory Rate 34 H 30 H Blood Pressure 125/61 121/59 L Pulse Oximetry 95 95 95 12/31/17 11:00 12/31/17 11:01 12/31/17 12:00 Temperature 98.8 F Pulse Rate 90 92 H 75 Respiratory Rate 29 H 28 H 21 Blood Pressure 134/66 100/57 L Pulse Oximetry 96 95 12/31/17 13:00 12/31/17 14:00 12/31/17 15:00 Temperature Pulse Rate 99 H 77 85 Respiratory Rate 40 H 29 H 22 Blood Pressure 126/66 112/55 L 109/59 L Pulse Oximetry 12/31/17 16:00 12/31/17 17:00 12/31/17 18:00 Temperature 98.5 F Pulse Rate 100 H 96 H 90 Respiratory Rate 25 H 32 H 16 Blood Pressure 127/66 118/60 99/54 L Pulse Oximetry 92 L 96 97 12/31/17 19:00 12/31/17 19:01 12/31/17 19:45 Temperature Pulse Rate 99 H 95 H Respiratory Rate 31 H 30 H Blood Pressure 118/58 L Pulse Oximetry 96 96 97 12/31/17 20:00 12/31/17 21:00 12/31/17 21:02 Temperature 99.9 F H Pulse Rate 97 H 88 87 Respiratory Rate 22 21 22 Blood Pressure 118/62 97/54 L Pulse Oximetry 92 L 97 96 12/31/17 21:53 12/31/17 22:00 12/31/17 23:00 Temperature Pulse Rate 91 H 92 H Respiratory Rate 20 31 H 24 Blood Pressure 109/62 104/56 L Pulse Oximetry 97 97 01/01/18 00:00 01/01/18 01:00 01/01/18 02:00 Temperature 99.9 F H Pulse Rate 86 88 90 Respiratory Rate 25 H 27 H 25 H Blood Pressure 105/63 117/61 119/65 Pulse Oximetry 95 93 L 99 01/01/18 03:00 01/01/18 04:00 01/01/18 05:00 Temperature 99.1 F Pulse Rate 88 90 91 H Respiratory Rate 26 H 27 H 27 H Blood Pressure 110/66 118/59 L 114/65 Pulse Oximetry 78 L 100 94 L 01/01/18 06:00 Temperature Pulse Rate 94 H Respiratory Rate 32 H Blood Pressure 115/63 Pulse Oximetry 92 L Intake & Output 12/31/17 01/01/18 01/01/18 18:59 06:59 18:59 Intake Total 895 / 895 1178 / 1178 Output Total 500 / 500 1250 / 1250 Balance 395 / 395 -72 / -72 Weight 59.5 kg Intake: Oral 0 / 0 0 / 0 Tube Feeding 635 / 635 858 / 858 Tube Irrigant 60 / 60 120 / 120 Water Bolus Amount 200 / 200 200 / 200 Output: Urine 500 / 500 Urine Amount (Catheter) 1250 / 1250 Indwelling Urethral Catheter 1250 / 1250 Other: Date of Last Bowel Movement 12/28/17 12/28/17 # Bowel Movements 0 Result Diagrams: 01/01/18 03:50 01/01/18 03:50 Objective Remarks: GENERAL: 62-year-old cachectic male in no apparent distress. Communicating in writing. SKIN: Warm and dry. No rash HEAD: Atraumatic. Normocephalic. EYES: Pupils equal and round. No scleral icterus. No injection or drainage. ENT: No nasal bleeding or discharge. Mucous membranes pink and moist. Tongue less edematous protruding from mouth unable to open mouth lips slightly less edematous. Inability to view oral aperture or oral pharynx NECK: Trachea midline. No JVD. Noted right sided neck mass. 8.0 Shiley tracheostomy in situ CARDIOVASCULAR: Normal rate, regular rhythm. Right chest [id number] RESPIRATORY: No accessory muscle use. Clear to auscultation. Breath sounds equal bilaterally. GASTROINTESTINAL: Abdomen soft, non-tender, nondistended. No guarding. PEG tube insitu MUSCULOSKELETAL: Extremities without clubbing, cyanosis, or edema. No obvious deformities. NEUROLOGICAL: GCS 11T Awake and alert. RASS 0. No gross focal/sensory deficits. Follows commands in all 4 extremities. Patient nodding head to yes and no questions, Assessment and Plan - Assessment and Plan Plan: Neuro/Psych: Insomnia Febrile illness-resolved acute Pain associated with head/neck cancer Acetaminophen 650 mg every 6 hours as needed for pain and/or temperature Continue Oxycodone 10 mg q 4HR PRN for pain Alprazolam 0.5 mg every 6 hours as needed for agitation Temazepam 15 mg at night as needed insomnia pain is poorly controlled with opiate therapy. opiates are indicated in this malignant pain. will add multimodal therapy: - start gabapentin 300mg po q8h - start tizanidine 4mg po q12h (for alpha-2 agonism) - continue po oxycodone - continue iv morphine for breakthrough - prn tylenol Respiratory: Ventilator dependent hypoxemic respiratory failure- improving. COPD exacerbation Lung mass Head and neck cancer -neck mass Airway compromise Significant oral secretions Class IV Mallampati rating 12/20 S/P Emergent tracheostomy to secure airway, 8.0 Sydneyley 12/21 trach collar trials on .40% initiated. Patient placed back on CPAP 12/24 secondary to hypoxemia and worsening chest x-ray Continue budesonide/formoterol 160/4.5 2 puffs twice daily Albuterol/ipratropium aerosols every 4 hours with albuterol aerosols every 2 hours as indicated for dyspnea Ventilator bundle Patient placed on CPAP / overnight and trach collar trials during the day continue daily weaning trials. will need placement for long-term wean. Hematology oncology following for chemotherapy 12/22 Patient seen by radiation oncology plan for XRT initiation today low-dose Levsin 0.125mg q6h for secretion management. Cardiovascular: Hypertension Maintain MAP > greater than 65 /renal: Maintain condom catheter -- Strict I/Os FEN/GI: PEG placement 12/19 Nausea and vomiting Glucerna 1.5 currently at goal 65 cc/hr. minimal residuals noted. Currently at 30 cc an hour. Dietary consultation Bowel regimen with docusate sodium 100 mg twice daily Currently in free water 200 cc every 8 hours per ID Heme/ID: Head and neck cancer Sepsis- resolved Leukocytosis Hematology oncology following-patient was tentatively scheduled for chemotherapy to initiate 12/20-we will follow up the recommendations Patient was initiated on Levaquin and vancomycin on 12/20. now s/p full course of abx. ID following Blood urine and sputum cultures-NGTD WBC downtrending, afebrile Endocrine: Diabetes mellitus Glucose monitoring per ICU protocol beam dose every 6 hours aspart -- SSI Prophylaxis: GI Prophylaxis Lansoprazole DVT Prophylaxis -- SCDs Enoxaparin Lines: Left radial A-line dc'd 12/22, right chest [id number]
[2018-01-01] MEDS: Docusate Sodium Liq 100 MG/10 ML UDC G-TUBE SCH ×2 (08:31→20:18)
[2018-01-01] MEDS: Budesonide-Formoterol 160/4.5 MCG 6 GM Inhaler INH SCH ×2 (10:34→20:19)
[2018-01-01] MEDS: Chlorhexidine Gluconate 0.12% Liq 15 ML UDC SWISH-SPIT SCH ×2 (10:34→20:19)
[2018-01-01] MEDS: Enoxaparin Inj 30 MG/0.3 ML Syringe SQ SCH (11:01)
[2018-01-02] MEDS: Insulin NovoLOG Aspart Correctional Sugar Inj SQ SCH ×4 (01:30→18:21)
[2018-01-02 04:39] LABS: Hematocrit 34.5 % (39.0-51.0); Hemoglobin 11.3 gm/dL (13.0-17.0); Mean Corpuscular HGB Conc 32.8 % (32.0-36.0); Mean Corpuscular Hemoglobin 28.8 pg (27.0-34.0); Mean Corpuscular Volume 87.9 fL (80.0-100.0); Mean Platelet Volume 8.6 fL (7.0-11.0); Platelet Count 451 th/mm3 (150-450); Red Blood Count 3.92 mil/mm3 (4.50-5.90); White Blood Count 19.6 th/mm3 (4.0-11.0)
[2018-01-02 05:03] LABS: Anion Gap 6 meq/L (5-15); Blood Urea Nitrogen 18 mg/dL (7-18); Calcium 9.1 mg/dL (8.5-10.1); Carbon Dioxide 34.7 meq/L (21.0-32.0); Chloride 90 meq/L (98-107); Glomerular Filtration Rate Greater Than 89 mL/min (>89); Glucose,Random 213 mg/dL (74-106); Potassium 4.5 meq/L (3.5-5.1); Sodium 131 meq/L (136-145)
[2018-01-02] MEDS: Artificial Tears Opth Drops 15 ML Bottle EACH EYE SCH ×2 (05:42→08:57)
[2018-01-02] MEDS: Gabapentin Liq 250 MG/5 ML UDC PO SCH ×3 (05:43→22:59)
[2018-01-02] MEDS: Chlorhexidine Gluconate 0.12% Liq 15 ML UDC SWISH-SPIT SCH ×3 (08:57→20:42)
[2018-01-02] MEDS: Docusate Sodium Liq 100 MG/10 ML UDC G-TUBE SCH ×2 (08:57→20:27)
[2018-01-02] MEDS: Budesonide-Formoterol 160/4.5 MCG 6 GM Inhaler INH SCH ×2 (08:59→20:28)
--- NOTE | 2018-01-02 10:39 | P.PNCC ---
Subjective Subjective Remarks/Hospital Course: Remarks/Hospital Course This is a 62-year-old male with a past medical history of squamous cell carcinoma of the head and neck, lung mass COPD, hypertension diabetes with a history of tobacco abuse, that presented on 12/18. The patient regularly is seen at the [facility] however he was not afforded treatment at this time . The patient was admitted to the medical floor, hematology oncology had been consulted plans were for chemotherapy to be initiated today the patient underwent PEG placement yesterday. Late this afternoon the patient was noted to be hypoxemic with significant airway edema , O2 sat in the 80's, Pao2 59 on 100% nonrebreather ,in the setting of a large tumor mass .A Halicat was called , and the patient was emergently transferred [place] [facility] [place] transfer the patient was immediately out evaluated and noted to be in significant respiratory distress, oral airway significantly edematous tongue protruding out of mouth Mallampati unobtainable upon evaluation. The patient appeared to be alert and could not yes and no to questions unable to speak. Quick assessment of CT scans that were previously done of the neck showed a large tumor mass crossing midline. Dr. Cabello , Anesthesiologist in to evaluate patient at bedside discussed case with him. Emergency airway equipment placed at bedside trauma surgery was notified I spoke with Dr. Rangel, patient emergently scheduled for tracheostomy to secure airway. A left radial A-line was placed ABG on 100% nonrebreather was obtained prior to going PaO2 had risen to 60 on nonrebreather mask. 12/21: No acute events overnight. The patient underwent emergency tracheostomy to secure the airway last evening. Norepinephrine and fentanyl infusions have been discontinued this morning patient has been transitioned onto CPAP trials and denies any discomfort. Patient is communicating with board and marker. PEG tube in situ tube feedings Glucerna currently at 30 cc/an hour continue to be advanced to goal. FiO2 has been decreased to .45% 12/22: No acute events overnight. The patient was maintained on CPAP trials throughout the night and this afternoon plan trach collar trials this afternoon PT OT has been initiated. Patient tolerating tube feeds no residuals. 12/23: Patient progressing well currently on trach collar trials greater than 24 hours. Patient tolerating tube feeds diet. Chemotherapy initiated yesterday. Patient denies pain. 12/24: Late entry note patient seen at 11:40 AM. Overnight the patient became agitated pulling off lines and tubes. Patient had previous stated that he has an anxiety disorder ,Xanax was ordered however not given. Upon my evaluation this a.m. O2 saturation noted to be low patient placed on FiO2 of 80% stat ABG was performed to reveal hypoxemia the patient was placed back on CPAP stat chest x-ray was performed which showed worsening airspace disease in the bases. 12/25: Patient noted with episodes of nausea, tube feeds held. Zofran given for nausea. The patient continues to have increased FiO2 requirements the patient is being placed on trach collar during the day CPAP at night. 12/26: Vitals not documented. Currently on CPAP 10/5 and 40%. No bowel movements documented. Not on a bowel regimen. 12/27: Remains on mechanical ventilation via tracheostomy. On CPAP trials. 12/28: no changes. still with cpap trials. 12/29: tolerating t-piece trials. rested on cpap overnight. complaints of continued pain around tumor site, as well as significant secretions. Subjective: 12/30: clinically doing well. denies complaints. asked that speech re-evaluate him because he would like to start eating real food again. plan for XRT to start today. 12/31: On mechanical ventilation via trach. Tolerating T piece trials 01/01: Remains on mechanical ventilation via trach. 01/02: On T-piece. Awaiting radiation today. Objective Vital Signs / I&O: Vital Signs 01/01/18 20:00 01/01/18 20:41 01/02/18 00:00 Temperature 98.6 F 97.9 F Pulse Rate 99 H 80 Respiratory Rate 24 23 Blood Pressure 112/62 112/61 Pulse Oximetry 94 L 96 95 01/02/18 04:00 01/02/18 08:05 Temperature 98.2 F Pulse Rate 86 Respiratory Rate 23 Blood Pressure 119/69 Pulse Oximetry 100 99 Intake & Output 01/01/18 01/02/18 01/02/18 18:59 06:59 18:59 Intake Total 710 / 710 990 / 990 Output Total 1000 / 1000 500 / 500 Balance -290 / -290 490 / 490 Weight 60.5 kg Intake: Oral 0 / 0 Tube Feeding 650 / 650 440 / 440 Tube Irrigant 60 / 60 Water Bolus Amount 550 / 550 Output: Stool 0 / 0 Urine Amount (Catheter) 1000 / 1000 500 / 500 Indwelling Urethral Catheter 1000 / 1000 500 / 500 Other: Date of Last Bowel Movement 12/28/17 01/01/18 # Bowel Movements 0 Result Diagrams: 01/02/18 03:43 01/02/18 03:43 Objective Remarks: GENERAL: 62-year-old cachectic male in no apparent distress. Communicating in writing. SKIN: Warm and dry. No rash HEAD: Atraumatic. Normocephalic. EYES: Pupils equal and round. No scleral icterus. No injection or drainage. ENT: No nasal bleeding or discharge. Mucous membranes pink and moist. Tongue less edematous protruding from mouth unable to open mouth lips slightly less edematous. Inability to view oral aperture or oral pharynx NECK: Trachea midline. No JVD. Noted right sided neck mass. 8.0 Shiley tracheostomy in situ CARDIOVASCULAR: Normal rate, regular rhythm. Right chest [id number] RESPIRATORY: On T-piece. No accessory muscle use. Clear to auscultation. Breath sounds equal bilaterally. GASTROINTESTINAL: Abdomen soft, non-tender, nondistended. No guarding. PEG tube insitu MUSCULOSKELETAL: Extremities without clubbing, cyanosis, or edema. No obvious deformities. NEUROLOGICAL: GCS 11T Awake and alert. RASS 0. No gross focal/sensory deficits. Follows commands in all 4 extremities. Patient nodding head to yes and no questions, Assessment and Plan - Assessment and Plan Plan: Neuro/Psych: Insomnia Febrile illness-resolved acute Pain associated with head/neck cancer Acetaminophen 650 mg every 6 hours as needed for pain and/or temperature Continue Oxycodone 10 mg q 4HR PRN for pain Alprazolam 0.5 mg every 6 hours as needed for agitation Temazepam 15 mg at night as needed insomnia pain is poorly controlled with opiate therapy. opiates are indicated in this malignant pain. will add multimodal therapy: - start gabapentin 300mg po q8h - start tizanidine 4mg po q12h (for alpha-2 agonism) - continue po oxycodone - continue iv morphine for breakthrough - prn tylenol Respiratory: hypoxic acute respiratory failure- improving. COPD exacerbation Lung mass Head and neck cancer -neck mass Airway compromise Significant oral secretions Class IV Mallampati rating 12/20 S/P Emergent tracheostomy to secure airway, 8.0 Shiley 6/27 trach collar trials on .40% initiated. Patient placed back on CPAP 12/24 secondary to hypoxemia and worsening chest x-ray Continue budesonide/formoterol 160/4.5 2 puffs twice daily Albuterol/ipratropium aerosols every 4 hours with albuterol aerosols every 2 hours as indicated for dyspnea Ventilator bundle T piece as tolerated. Hematology oncology following for chemotherapy 12/22 Patient seen by radiation oncology plan for XRT initiation today low-dose Levsin 0.125mg q6h for secretion management. Cardiovascular: Hypertension Maintain MAP > greater than 65 /renal: Maintain condom catheter -- Strict I/Os FEN/GI: PEG placement 12/19 Nausea and vomiting Glucerna 1.5 currently at goal 65 cc/hr. minimal residuals noted. Currently at 30 cc an hour. Dietary consultation Bowel regimen with docusate sodium 100 mg twice daily Currently in free water 200 cc every 8 hours per ID Heme/ID: Head and neck cancer Sepsis- resolved Leukocytosis Hematology oncology following-patient was tentatively scheduled for chemotherapy to initiate 12/20-we will follow up the recommendations Patient was initiated on Levaquin and vancomycin on 12/20. now s/p full course of abx. ID following Blood urine and sputum cultures-NGTD WBC downtrending, afebrile Endocrine: Diabetes mellitus Glucose monitoring per ICU protocol beam dose every 6 hours aspart -- SSI Prophylaxis: GI Prophylaxis Lansoprazole DVT Prophylaxis -- SCDs Enoxaparin Lines: Left radial A-line dc'd 12/22, right chest [id number] Consult and transfer to hospitalist service for medical management.
[2018-01-02] MEDS: Morphine Inj 4 MG/ML Vial IV.PUSH PRN ×5 (11:15→22:58)
[2018-01-02] MEDS: Enoxaparin Inj 30 MG/0.3 ML Syringe SQ SCH (11:17)
--- NOTE | 2018-01-02 13:35 | P.PNONC ---
Subjective Interval history: Pt resting in bed, no new complaints at this time. Awaiting radiation simulation. Objective Vital Signs/Intake & Output: Vital Signs 01/01/18 20:00 01/01/18 20:41 01/02/18 00:00 Temperature 98.6 F 97.9 F Pulse Rate 99 H 80 Respiratory Rate 24 23 Blood Pressure 112/62 112/61 Pulse Oximetry 94 L 96 95 01/02/18 04:00 01/02/18 08:00 01/02/18 08:05 Temperature 98.2 F 98.4 F Pulse Rate 86 79 Respiratory Rate 23 24 Blood Pressure 119/69 121/62 Pulse Oximetry 100 90 L 99 Intake & Output 01/01/18 01/02/18 01/02/18 18:59 06:59 18:59 Intake Total 710 / 710 990 / 990 Output Total 1000 / 1000 500 / 500 Balance -290 / -290 490 / 490 Weight 60.5 kg Intake: Oral 0 / 0 Tube Feeding 650 / 650 440 / 440 Tube Irrigant 60 / 60 Water Bolus Amount 550 / 550 Output: Stool 0 / 0 Urine Amount (Catheter) 1000 / 1000 500 / 500 Indwelling Urethral Catheter 1000 / 1000 500 / 500 Other: Date of Last Bowel Movement 12/28/17 01/01/18 01/01/18 # Bowel Movements 0 Result Diagrams: 01/02/18 03:43 01/02/18 03:43 Laboratory Results: Laboratory Results - last 24 hr 01/01/18 01/01/18 01/01/18 15:44 18:01 20:41 WBC RBC Hgb Hct MCV MCH MCHC RDW Plt Count MPV Sodium Potassium Chloride Carbon Dioxide Anion Gap BUN Creatinine Estimated GFR POC Glucose 129 H 173 H 140 H Random Glucose Calcium 01/02/18 01/02/18 01/02/18 03:43 03:43 05:25 WBC 19.6 H RBC 3.92 L Hgb 11.3 L Hct 34.5 L MCV 87.9 MCH 28.8 MCHC 32.8 RDW 15.0 Plt Count 451 H MPV 8.6 Sodium 131 L Potassium 4.5 Chloride 90 L Carbon Dioxide 34.7 H Anion Gap 6 BUN 18 Creatinine 0.32 L Estimated GFR Greater than 89 POC Glucose 256 H Random Glucose 213 H Calcium 9.1 01/02/18 11:28 WBC RBC Hgb Hct MCV MCH MCHC RDW Plt Count MPV Sodium Potassium Chloride Carbon Dioxide Anion Gap BUN Creatinine Estimated GFR POC Glucose 205 H Random Glucose Calcium Medications: Active Medications Generic Name Dose Route Start Last Admin Trade Name Freq PRN Reason Stop Dose Admin Acetaminophen 650 mg 12/25/17 00:01 12/27/17 14:26 Tylenol PO 650 mg Q6H PRN Administration FEVER/PAIN SCALE 1 to 2 Albuterol 2.5 mg 12/26/17 16:04 01/02/18 04:06 Albuterol Neb (Prn) NEB 2.5 mg Q2HR NEB PRN Administration DYSPNEA Alprazolam 0.5 mg 12/25/17 00:01 12/28/17 14:13 Xanax G-TUBE 0.5 mg Q6H PRN Administration Anxiety/Agitation Artificial Tears 1 drop 12/26/17 17:00 01/02/18 08:57 Tears Naturale Opth Drops EACH EYE 1 drop Q8H BRENDEN Administration Budesonide/Formoterol Fumarate 2 puff 12/25/17 09:00 01/02/18 08:59 Symbicort 160/4.5 Mcg Inh INH Not Given BID BRENDEN Chlorhexidine Gluconate 15 ml 12/25/17 09:00 01/02/18 08:57 Peridex 0.12% Liq SWISH-SPIT 15 ml BID BRENDEN Administration Docusate Sodium 100 mg 12/26/17 21:00 01/02/18 08:57 Colace Liq G-TUBE 100 mg BID BRENDEN Administration Enoxaparin Sodium 30 mg 12/25/17 11:00 01/02/18 11:17 Lovenox Inj SQ 30 mg Q24H BRENDEN Administration Gabapentin 300 mg 12/29/17 08:15 01/02/18 05:43 Neurontin Liq PO 300 mg Q8HR BRENDEN Administration Hyoscyamine 0.125 mg 12/29/17 08:30 01/02/18 11:15 Levsin PO 0.125 mg Q6HR BRENDEN Administration Insulin Aspart 0 unit 12/26/17 18:00 01/02/18 11:33 Novolog Insulin Suppl Scale Inj SQ 2 unit Q6HR BRENDEN Administration Protocol Lansoprazole 30 mg 12/27/17 09:00 01/02/18 08:57 Prevacid Solutab NG/OG 30 mg DAILY BRENDEN Administration Morphine Sulfate 2 mg 12/28/17 08:36 01/02/18 11:15 Morphine Inj IV.PUSH 2 mg Q2H PRN Administration PAIN SCALE 5-10/SEVERE COUGH Ondansetron HCl 4 mg 12/25/17 17:35 12/31/17 17:30 Zofran Odt PO 4 mg Q6H PRN Administration NAUSEA OR VOMITING Ondansetron HCl 4 mg 01/01/18 20:02 01/02/18 06:38 Zofran Inj IV.PUSH 4 mg Q6H PRN Administration NAUSEA Oxycodone HCl 10 mg 12/25/17 00:01 01/01/18 23:15 Roxicodone PO 10 mg Q4H PRN Administration Pain Scale 3 to 5 Sodium Chloride 2 ml 12/25/17 09:00 01/02/18 08:58 Ns Flush IV.FLUSH 2 ml BID BRENDEN Administration Sterile Water 200 ml 12/25/17 06:00 01/02/18 05:42 Free Water G-TUBE Not Given Q8HR BRENDEN Temazepam 15 mg 12/25/17 18:35 01/01/18 01:55 Restoril NG/OG 15 mg HS PRN Administration INSOMNIA Tizanidine HCl 4 mg 12/29/17 09:00 01/02/18 08:57 Zanaflex PO 4 mg Q12HR BRENDEN Administration Objective Remarks: GENERAL: Chronically ill appearing middle aged male, lying in bed in no acute distress. SKIN: Warm and dry. HEAD: Normocephalic. Oral tongue protrusion EYES: No scleral icterus. No injection or drainage. NECK: Supple, tracheostomy in place. +large right neck mass. Tender to palpation. CARDIOVASCULAR: Regular rate and rhythm RESPIRATORY: Anterior breath sounds equal bilaterally. Scattered rhonchi bilateral upper lobes. No accessory muscle use. GASTROINTESTINAL: Abdomen soft, non-tender, nondistended. PEG tube in place LUQ. EXTREMITIES: No cyanosis NEUROLOGICAL: Alert and oriented. Follows commands, writes on tablet. 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 A delay in his treatment coordinated by the [facility] resulted in his presentation to this hospital with a symptomatic large right neck and base of tongue/tonsil mass. s/p first dose of chemotherapy with carbo/taxol 12/22, second cycle was 12/29. Plan: 1. Patient doing well status post second cycle of carbotaxol. 2. Radiation simulation scheduled for today 3. Continue supportive care 4. H & H stable, continue to monitor CBC. - Attending Statement The exam, history, and the medical decision-making described in the above note were completed with the assistance of the mid-level provider. I reviewed and agree with the findings presented. I attest that I had a [id number] encounter with the patient on the same day, and personally performed and documented my assessment and findings in the medical record. Patient was seen and examined earlier. Right neck mass, seem to have increased swelling as compared to Tuesday. Dry crust over the tip of the tongue. Continued salivation. He is pending to start radiation. Supportive treatment continue. Concurrent chemotherapy and radiation to palliate the symptoms from his right neck mass and base of tongue lesion.
--- NOTE | 2018-01-02 16:35 | P.PNPL ---
Subjective Interval history: 62 YO WM wit H&N CA,RF, Trach ON PSV, trach collar Tolerates TF Awake, follows commands Had Chemo Had Radiation marking done Physical Exam Vital signs: Vital Signs 01/01/18 20:00 01/01/18 20:41 01/02/18 00:00 Temperature 98.6 F 97.9 F Pulse Rate 99 H 80 Respiratory Rate 24 23 Blood Pressure 112/62 112/61 Pulse Oximetry 94 L 96 95 01/02/18 04:00 01/02/18 08:00 01/02/18 08:05 Temperature 98.2 F 98.4 F Pulse Rate 86 79 Respiratory Rate 23 24 Blood Pressure 119/69 121/62 Pulse Oximetry 100 90 L 99 Intake & Output 01/01/18 01/02/18 01/02/18 18:59 06:59 18:59 Intake Total 710 / 710 990 / 990 Output Total 1000 / 1000 500 / 500 Balance -290 / -290 490 / 490 Weight 60.5 kg Intake: Oral 0 / 0 Tube Feeding 650 / 650 440 / 440 Tube Irrigant 60 / 60 Water Bolus Amount 550 / 550 Output: Stool 0 / 0 Urine Amount (Catheter) 1000 / 1000 500 / 500 Indwelling Urethral Catheter 1000 / 1000 500 / 500 Other: Date of Last Bowel Movement 12/28/17 01/01/18 01/01/18 # Bowel Movements 0 GENERAL: MBMN WM, mild sob SKIN: Warm and dry. HEAD: Normocephalic. EYES: No scleral icterus. No injection or drainage. Neck mass Trach in place NECK: Supple, trachea midline. No JVD or lymphadenopathy. CARDIOVASCULAR: Regular rate and rhythm without murmurs, gallops, or rubs. RESPIRATORY: Breath sounds equal bilaterally. No accessory muscle use. GASTROINTESTINAL: Abdomen soft, non-tender, nondistended. has PEG MUSCULOSKELETAL: No cyanosis, or edema. BACK: Nontender without obvious deformity. No CVA tenderness. - Urinary Catheter Management Indwelling Urethral Catheter Cath placed during this visit: yes Reason for continuing: Chronic Urinary Retention Insertion date: 12/20/17 Insertion time: 00:00 Assessment and Plan - Plan Resp failure S/P Emergent trach Neck Mass H&N Ca COPD PLAN: trach collar Fio2 45% Aerosol nebs cont Abx Tube feeding
--- NOTE | 2018-01-02 19:19 | P.PN ---
Subjective Interval history: NOT seen Physical Exam Vital signs: Vital Signs 01/01/18 20:00 01/01/18 20:41 01/02/18 00:00 Temperature 98.6 F 97.9 F Pulse Rate 99 H 80 Respiratory Rate 24 23 Blood Pressure 112/62 112/61 Pulse Oximetry 94 L 96 95 01/02/18 04:00 01/02/18 08:00 01/02/18 08:05 Temperature 98.2 F 98.4 F Pulse Rate 86 79 Respiratory Rate 23 24 Blood Pressure 119/69 121/62 Pulse Oximetry 100 90 L 99 Intake & Output 01/02/18 01/02/18 01/03/18 06:59 18:59 06:59 Intake Total 990 / 990 Output Total 500 / 500 Balance 490 / 490 Weight 60.5 kg Intake: Tube Feeding 440 / 440 Water Bolus Amount 550 / 550 Output: Urine Amount (Catheter) 500 / 500 Indwelling Urethral Catheter 500 / 500 Other: Date of Last Bowel Movement 01/01/18 01/01/18 # Bowel Movements 0 Narrative: GENERAL: 62-year-old cachectic male in no apparent distress. Communicating in writing. SKIN: Warm and dry. No rash HEAD: Atraumatic. Normocephalic. EYES: Pupils equal and round. No scleral icterus. No injection or drainage. ENT: No nasal bleeding or discharge. Mucous membranes pink and moist. Tongue less edematous protruding from mouth unable to open mouth lips slightly less edematous. Inability to view oral aperture or oral pharynx NECK: Trachea midline. No JVD. Noted right sided neck mass. 8.0 Shiley tracheostomy in situ CARDIOVASCULAR: Normal rate, regular rhythm. Right chest [id number] RESPIRATORY: On T-piece. No accessory muscle use. Clear to auscultation. Breath sounds equal bilaterally. GASTROINTESTINAL: Abdomen soft, non-tender, nondistended. No guarding. PEG tube insitu MUSCULOSKELETAL: Extremities without clubbing, cyanosis, or edema. No obvious deformities. NEUROLOGICAL: GCS 11 Awake and alert. RASS 0. No gross focal/sensory deficits. Follows commands in all 4 extremities. Patient nodding head to yes and no questions, - Urinary Catheter Management Indwelling Urethral Catheter Cath placed during this visit: yes Reason for continuing: Chronic Urinary Retention Insertion date: 12/20/17 Insertion time: 00:00 Results - Labs CBC & Chem 7: 01/02/18 03:43 01/02/18 03:43 Laboratory Results - last 24 hr 01/01/18 01/02/18 01/02/18 20:41 03:43 03:43 WBC 19.6 H RBC 3.92 L Hgb 11.3 L Hct 34.5 L MCV 87.9 MCH 28.8 MCHC 32.8 RDW 15.0 Plt Count 451 H MPV 8.6 Sodium 131 L Potassium 4.5 Chloride 90 L Carbon Dioxide 34.7 H Anion Gap 6 BUN 18 Creatinine 0.32 L Estimated GFR Greater than 89 POC Glucose 140 H Random Glucose 213 H Calcium 9.1 01/02/18 01/02/18 01/02/18 05:25 11:28 18:04 WBC RBC Hgb Hct MCV MCH MCHC RDW Plt Count MPV Sodium Potassium Chloride Carbon Dioxide Anion Gap BUN Creatinine Estimated GFR POC Glucose 256 H 205 H 212 H Random Glucose Calcium - Imaging ITS Impre Microbiology 12/27/17 10:37 Sputum - Endotracheal Gram Stain - Final 12/27/17 10:37 Sputum - Endotracheal Sputum Culture - Final Heavy growth normal respiratory kali ssions Chest X-Ray 12/27/17 00:01 CONCLUSION: Persistent nonconsolidative airspace infiltrates in the left lower lung. - Procedures PEG Tracheostomy A line Infusaport Assessment and Plan - Plan Neuro/Psych: Insomnia Febrile illness-resolved acute Pain associated with head/neck cancer Acetaminophen 650 mg every 6 hours as needed for pain and/or temperature Continue Oxycodone 10 mg q 4HR PRN for pain Alprazolam 0.5 mg every 6 hours as needed for agitation Temazepam 15 mg at night as needed insomnia pain is poorly controlled with opiate therapy. Add multimodal therapy: - start gabapentin 300mg po q8h - start tizanidine 4mg po q12h (for alpha-2 agonism) - continue po oxycodone - continue iv morphine for breakthrough - prn tylenol Respiratory: hypoxic acute respiratory failure- improving. COPD exacerbation Lung mass Head and neck cancer -neck mass Airway compromise Significant oral secretions Class IV Mallampati rating 12/20 S/P Emergent tracheostomy to secure airway, 8.0 Shiley 12/21 trach collar trials on .40% initiated. Patient placed back on CPAP 12/24 secondary to hypoxemia and worsening chest x-ray Ct TC Continue budesonide/formoterol 160/4.5 2 puffs twice daily Albuterol/ipratropium aerosols every 4 hours with albuterol aerosols every 2 hours as indicated for dyspnea T piece as tolerated. Hematology oncology following s/p 2nd cycle of carbotaxol Patient seen by radiation oncology - radiation stimulation Aggressive pulmonary toilet low-dose Levsin 0.125mg q6h for secretion management. Cardiovascular: Hypertension Maintain MAP > greater than 65 /renal: Maintain condom catheter -- Strict I/Os FEN/GI: PEG placement 12/19 Nausea and vomiting Glucerna 1.5 currently at goal 65 cc/hr. minimal residuals noted. Currently at 30 cc an hour. Dietary consultation Bowel regimen with docusate sodium 100 mg twice daily Currently in free water 200 cc every 8 hours per ID Heme/ID: Sepsis- resolved Leukocytosis Patient was initiated on Levaquin and vancomycin on 12/20. now s/p full course of abx. ID following Blood urine and sputum cultures-NGTD WBC downtrending, afebrile Endocrine: Diabetes mellitus Glucose monitoring per ICU protocol -- SSI Prophylaxis: GI Prophylaxis Lansoprazole DVT Prophylaxis -- SCDs Enoxaparin Lines: Left radial A-line dc'd 12/22, right chest [id number] PT ff needs rehab
[2018-01-03] MEDS: Insulin NovoLOG Aspart Correctional Sugar Inj SQ SCH ×3 (00:44→18:12)
[2018-01-03] MEDS: Temazepam 15 MG Capsule NG/OG PRN (00:45)
[2018-01-03] MEDS: Morphine Inj 4 MG/ML Vial IV.PUSH PRN ×7 (02:40→22:50)
[2018-01-03] MEDS: Gabapentin Liq 250 MG/5 ML UDC PO SCH ×3 (05:33→21:28)
[2018-01-03 07:35] LABS: Hematocrit 34.7 % (39.0-51.0); Hemoglobin 11.3 gm/dL (13.0-17.0); Mean Corpuscular HGB Conc 32.5 % (32.0-36.0); Mean Corpuscular Hemoglobin 28.9 pg (27.0-34.0); Mean Corpuscular Volume 88.9 fL (80.0-100.0); Mean Platelet Volume 8.8 fL (7.0-11.0); Platelet Count 480 th/mm3 (150-450); Red Cell Distribution Width 15.6 % (11.6-17.2); White Blood Count 23.4 th/mm3 (4.0-11.0)
[2018-01-03 07:59] LABS: Anion Gap 10 meq/L (5-15); Blood Urea Nitrogen 18 mg/dL (7-18); Calcium 9.4 mg/dL (8.5-10.1); Carbon Dioxide 32.7 meq/L (21.0-32.0); Chloride 89 meq/L (98-107); Glomerular Filtration Rate Greater Than 89 mL/min (>89); Glucose,Random 199 mg/dL (74-106); Potassium 4.5 meq/L (3.5-5.1); Sodium 132 meq/L (136-145)
[2018-01-03] MEDS: Chlorhexidine Gluconate 0.12% Liq 15 ML UDC SWISH-SPIT SCH ×2 (08:01→20:33)
[2018-01-03] MEDS: Docusate Sodium Liq 100 MG/10 ML UDC G-TUBE SCH ×2 (08:01→20:33)
[2018-01-03] MEDS: Artificial Tears Opth Drops 15 ML Bottle EACH EYE SCH (08:03)
[2018-01-03] MEDS: Budesonide-Formoterol 160/4.5 MCG 6 GM Inhaler INH SCH ×2 (08:04→20:34)
--- NOTE | 2018-01-03 13:06 | P.PNIM ---
Subjective Interval history: No overnight events, still has a lot of secretions. Denies worsening of shortness of breath. Physical Exam Vital signs: Vital Signs 01/02/18 13:00 01/02/18 13:20 01/02/18 14:00 Temperature Pulse Rate 88 90 85 Respiratory Rate 17 17 15 Blood Pressure 114/69 139/74 116/67 Pulse Oximetry 96 92 L 97 01/02/18 15:03 01/02/18 16:00 01/02/18 17:00 Temperature 98.5 F Pulse Rate 97 H 87 91 H Respiratory Rate 17 34 H Blood Pressure 116/67 Pulse Oximetry 98 90 L 74 L 01/02/18 18:00 01/02/18 19:00 01/02/18 19:17 Temperature Pulse Rate 92 H 99 H 91 H Respiratory Rate 19 18 16 Blood Pressure 120/64 Pulse Oximetry 87 L 94 L 86 L 01/02/18 19:39 01/02/18 20:00 01/02/18 21:00 Temperature 98.3 F Pulse Rate 92 H 88 Respiratory Rate 19 14 Blood Pressure 130/70 111/63 Pulse Oximetry 98 98 97 01/02/18 22:00 01/02/18 22:04 01/02/18 22:47 Temperature Pulse Rate 90 88 87 Respiratory Rate 21 18 14 Blood Pressure 81/47 L 87/52 L 107/61 Pulse Oximetry 92 L 93 L 93 L 01/02/18 23:00 01/03/18 00:00 01/03/18 01:00 Temperature 98.2 F Pulse Rate 89 85 91 H Respiratory Rate 15 17 17 Blood Pressure 108/59 L 111/76 113/63 Pulse Oximetry 94 L 93 L 93 L 01/03/18 02:00 01/03/18 03:00 01/03/18 04:00 Temperature 97.9 F Pulse Rate 97 H 92 H 96 H Respiratory Rate 33 H 16 22 Blood Pressure 120/79 121/65 125/69 Pulse Oximetry 97 95 75 L 01/03/18 05:00 01/03/18 06:00 01/03/18 07:00 Temperature Pulse Rate 96 H 97 H 87 Respiratory Rate 17 16 Blood Pressure 129/89 123/68 132/65 Pulse Oximetry 90 L 32 L 01/03/18 08:00 01/03/18 08:01 01/03/18 08:15 Temperature 98.4 F Pulse Rate 93 H Respiratory Rate 22 Blood Pressure 126/67 126/67 Pulse Oximetry 90 L 95 Intake & Output 01/02/18 01/03/18 01/03/18 18:59 06:59 18:59 Intake Total 1062 / 1062 1044 / 1044 Output Total 800 / 800 0 / 0 Balance 262 / 262 1044 / 1044 Weight 60 kg Intake: Oral 0 / 0 0 / 0 Tube Feeding 662 / 662 524 / 524 Tube Irrigant 400 / 400 Water Bolus Amount 400 / 400 120 / 120 Output: Urine 800 / 800 0 / 0 Stool 0 / 0 Other: # Voids 0 Date of Last Bowel Movement 01/01/18 01/03/18 01/03/18 # Bowel Movements 5 Narrative: Not in distress Trach in place, tongue is still edematous protruding from mouth, inability to do any oral exam. Right-sided neck mass, tracheostomy in place Regular rate and rhythm, right chest Lhcoim-h-Hmhi in place Clear breath sounds, occasional bronchial No edema Alert awake and oriented 3. Moves extremities, follows commands. - Urinary Catheter Management Indwelling Urethral Catheter Cath placed during this visit: yes, but has since been removed by the nurse Reason for continuing: Decision to DC catheter Insertion date: 12/20/17 Insertion time: 00:00 Removal date: 01/02/18 Removal time: 07:00 Results - Labs CBC & Chem 7: 01/03/18 05:45 01/03/18 05:45 Laboratory Results - last 24 hr 01/02/18 01/03/18 01/03/18 18:04 00:11 05:45 WBC 23.4 H RBC 3.90 L Hgb 11.3 L Hct 34.7 L MCV 88.9 MCH 28.9 MCHC 32.5 RDW 15.6 Plt Count 480 H MPV 8.8 Sodium Potassium Chloride Carbon Dioxide Anion Gap BUN Creatinine Estimated GFR POC Glucose 212 H 213 H Random Glucose Calcium 01/03/18 01/03/18 05:45 05:47 WBC RBC Hgb Hct MCV MCH MCHC RDW Plt Count MPV Sodium 132 L Potassium 4.5 Chloride 89 L Carbon Dioxide 32.7 H Anion Gap 10 BUN 18 Creatinine 0.33 L Estimated GFR Greater than 89 POC Glucose 250 H Random Glucose 199 H Calcium 9.4 Assessment and Plan - Plan This is a 62-year-old male with past medical history of right tonsil and cancer , squamous cell carcinoma moderately differentiated, presented emergency department complaining of pain in the neck and unable to eat or drink associated with cough, found to have a large tumor involving the tongue in the right side of the pharynx with necrotic right cervical lymphadenopathy. 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 Neuro/Psych: Hypoxic respiratory failure, COPD exacerbation, head and neck cancer, lung mass with airway compromise-status post emergent tracheostomy 12/20/2017, presently on trach collar, continue Symbicort, Combivent, T-piece as tolerated. Continue Levsin. Pulmonary following. Increase Levsin with a lot of secretions. Head and neck cancer, squamous cell carcinoma right tonsil-hematology oncology following for chemotherapy, preparing for XRT. Continue pain control. Continue narcotics, gabapentin, tizanidine and Tylenol. Febrile illness with leukocytosis-ruled out sepsis, Levaquin and Flagyl discontinued. Leukocytosis could be from tumor necrosis plus steroids per infectious disease and hematology, stable. Chest x-ray improved. Observe off antibiotics. Nutrition-status post PEG placement 12/19/2017, continue Glucerna 1.5 at 65 cc/h with free water every 8 hours 200 cc. Hyperglycemia-continue sliding-scale insulin, check hemoglobin A1c. Hyponatremia-mild, follow-up BMP tomorrow. Prophylaxis: Lansoprazole, SCDs, Lovenox.
[2018-01-03 16:43] LABS: Hemoglobin A1c 6.3 % (4.3-6.0)
[2018-01-03] MEDS: Enoxaparin Inj 30 MG/0.3 ML Syringe SQ SCH (18:15)
--- NOTE | 2018-01-03 18:43 | P.PNPL ---
Subjective Interval history: 62 YO WM wit H&N CA,RF, Trach ON PSV, trach collar Tolerates TF Awake, follows commands Had Chemo No new complaint Still has lot of oral secretions Physical Exam Vital signs: Vital Signs 01/02/18 19:00 01/02/18 19:17 01/02/18 19:39 Temperature Pulse Rate 99 H 91 H Respiratory Rate 18 16 Blood Pressure 120/64 Pulse Oximetry 94 L 86 L 98 01/02/18 20:00 01/02/18 21:00 01/02/18 22:00 Temperature 98.3 F Pulse Rate 92 H 88 90 Respiratory Rate 19 14 21 Blood Pressure 130/70 111/63 81/47 L Pulse Oximetry 98 97 92 L 01/02/18 22:04 01/02/18 22:47 01/02/18 23:00 Temperature Pulse Rate 88 87 89 Respiratory Rate 18 14 15 Blood Pressure 87/52 L 107/61 108/59 L Pulse Oximetry 93 L 93 L 94 L 01/03/18 00:00 01/03/18 01:00 01/03/18 02:00 Temperature 98.2 F Pulse Rate 85 91 H 97 H Respiratory Rate 17 17 33 H Blood Pressure 111/76 113/63 120/79 Pulse Oximetry 93 L 93 L 97 01/03/18 03:00 01/03/18 04:00 01/03/18 05:00 Temperature 97.9 F Pulse Rate 92 H 96 H 96 H Respiratory Rate 16 22 17 Blood Pressure 121/65 125/69 129/89 Pulse Oximetry 95 75 L 01/03/18 06:00 01/03/18 07:00 01/03/18 08:00 Temperature 98.4 F Pulse Rate 97 H 87 93 H Respiratory Rate 16 22 Blood Pressure 123/68 132/65 126/67 Pulse Oximetry 90 L 32 L 90 L 01/03/18 08:01 01/03/18 08:15 01/03/18 12:00 Temperature 98 F Pulse Rate 90 Respiratory Rate 22 Blood Pressure 126/67 113/59 L Pulse Oximetry 95 99 01/03/18 16:00 Temperature 98.8 F Pulse Rate 90 Respiratory Rate 24 Blood Pressure 134/63 Pulse Oximetry 96 Intake & Output 01/02/18 01/03/18 01/03/18 18:59 06:59 18:59 Intake Total 1062 / 1062 1044 / 1044 Output Total 800 / 800 0 / 0 Balance 262 / 262 1044 / 1044 Weight 60 kg Intake: Oral 0 / 0 0 / 0 Tube Feeding 662 / 662 524 / 524 Tube Irrigant 400 / 400 Water Bolus Amount 400 / 400 120 / 120 Output: Urine 800 / 800 0 / 0 Stool 0 / 0 Other: # Voids 0 Date of Last Bowel Movement 01/01/18 01/03/18 01/03/18 # Bowel Movements 5 Narrative: Not in distress Trach in place, tongue is still edematous protruding from mouth, inability to do any oral exam. Right-sided neck mass, tracheostomy in place Regular rate and rhythm, right chest Sxttyu-y-Skfl in place Clear breath sounds, occasional bronchial No edema Alert awake and oriented 3. Moves extremities, follows commands. - Urinary Catheter Management Indwelling Urethral Catheter Cath placed during this visit: yes, but has since been removed by the nurse Reason for continuing: Decision to DC catheter Insertion date: 12/20/17 Insertion time: 00:00 Removal date: 01/02/18 Removal time: 07:00 Assessment and Plan - Plan Resp failure S/P Emergent trach Neck Mass H&N Ca COPD PLAN: trach collar Fio2 45% Aerosol nebs cont Abx Tube feeding Scopolamine patch q 72 hrs
[2018-01-04] MEDS: Artificial Tears Opth Drops 15 ML Bottle EACH EYE SCH ×3 (00:49→17:05)
[2018-01-04] MEDS: Insulin NovoLOG Aspart Correctional Sugar Inj SQ SCH ×4 (00:49→17:06)
[2018-01-04] MEDS: Morphine Inj 4 MG/ML Vial IV.PUSH PRN ×6 (00:50→19:25)
[2018-01-04] MEDS: Temazepam 15 MG Capsule NG/OG PRN (02:49)
[2018-01-04 04:30] LABS: Hemoglobin 11.2 gm/dL (13.0-17.0); Mean Corpuscular Volume 87.9 fL (80.0-100.0); Mean Platelet Volume 8.3 fL (7.0-11.0); Platelet Count 450 th/mm3 (150-450); Red Blood Count 3.87 mil/mm3 (4.50-5.90); Red Cell Distribution Width 15.1 % (11.6-17.2); White Blood Count 21.1 th/mm3 (4.0-11.0)
[2018-01-04] MEDS: Gabapentin Liq 250 MG/5 ML UDC PO SCH ×3 (05:01→21:19)
[2018-01-04 05:02] LABS: Anion Gap 8 meq/L (5-15); Blood Urea Nitrogen 18 mg/dL (7-18); Calcium 9.1 mg/dL (8.5-10.1); Chloride 92 meq/L (98-107); Glomerular Filtration Rate Greater Than 89 mL/min (>89); Glucose,Random 86 mg/dL (74-106); Potassium 4.5 meq/L (3.5-5.1); Sodium 132 meq/L (136-145)
[2018-01-04] MEDS: Chlorhexidine Gluconate 0.12% Liq 15 ML UDC SWISH-SPIT SCH ×2 (08:00→20:02)
[2018-01-04] MEDS: Docusate Sodium Liq 100 MG/10 ML UDC G-TUBE SCH ×2 (08:00→20:01)
[2018-01-04] MEDS: Budesonide-Formoterol 160/4.5 MCG 6 GM Inhaler INH SCH ×2 (08:00→20:03)
[2018-01-04] MEDS: Enoxaparin Inj 30 MG/0.3 ML Syringe SQ SCH (10:09)
[2018-01-04] MEDS: Enoxaparin Inj 40 MG/0.4 ML Syringe SQ SCH (12:01)
[2018-01-04] MEDS: Morphine Sulfate Oral Liq 10 MG/0.5 ML Syringe NG/OG PRN ×2 (12:20→15:57)
--- NOTE | 2018-01-04 13:20 | P.PNIM ---
Subjective Interval history: No overnight events, secretions going down, no fever. Shortness of breath is at baseline. Physical Exam Vital signs: Vital Signs 01/03/18 16:00 01/03/18 19:00 01/03/18 20:00 Temperature 98.8 F Pulse Rate 90 82 Respiratory Rate 24 17 Blood Pressure 134/63 118/67 Pulse Oximetry 96 100 100 01/03/18 20:20 01/03/18 21:00 01/03/18 22:00 Temperature Pulse Rate 82 79 Respiratory Rate 17 15 Blood Pressure 115/64 111/64 Pulse Oximetry 100 01/03/18 23:00 01/04/18 00:00 01/04/18 01:00 Temperature 99.0 F Pulse Rate 80 85 79 Respiratory Rate 14 16 16 Blood Pressure 101/63 113/64 110/55 L Pulse Oximetry 99 01/04/18 02:00 01/04/18 02:10 01/04/18 03:00 Temperature Pulse Rate 91 H 80 Respiratory Rate 21 17 Blood Pressure 149/78 H 116/68 Pulse Oximetry 100 100 93 L 01/04/18 04:00 01/04/18 05:00 01/04/18 07:00 Temperature Pulse Rate 81 79 87 Respiratory Rate 15 17 16 Blood Pressure 133/70 123/66 139/72 Pulse Oximetry 95 01/04/18 08:00 01/04/18 08:01 01/04/18 09:00 Temperature Pulse Rate 81 81 Respiratory Rate 16 16 15 Blood Pressure 135/70 120/67 Pulse Oximetry 97 01/04/18 09:04 01/04/18 10:00 01/04/18 11:00 Temperature Pulse Rate 87 72 Respiratory Rate 18 14 Blood Pressure 135/74 133/68 Pulse Oximetry 97 97 96 01/04/18 11:12 Temperature Pulse Rate Respiratory Rate Blood Pressure Pulse Oximetry 95 Intake & Output 01/03/18 01/04/18 01/04/18 18:59 06:59 18:59 Intake Total 375 / 375 543 / 543 Output Total 400 / 400 350 / 350 Balance -25 / -25 193 / 193 Weight 59.5 kg Intake: Tube Feeding 175 / 175 543 / 543 Water Bolus Amount 200 / 200 Output: Urine 400 / 400 350 / 350 Other: Date of Last Bowel Movement 01/03/18 01/04/18 01/04/18 # Bowel Movements 6 Narrative: Not in distress Trach in place, tongue is still edematous protruding from mouth, inability to do any oral exam. Right-sided neck mass, tracheostomy in place Regular rate and rhythm, right chest Hkiisj-b-Xaca in place Clear breath sounds, occasional bronchial No edema Alert awake and oriented 3. Moves extremities, follows commands. - Urinary Catheter Management Indwelling Urethral Catheter Cath placed during this visit: yes, but has since been removed by the nurse Reason for continuing: Not indwelling catheter Insertion date: 12/20/17 Insertion time: 00:00 Removal date: 01/02/18 Removal time: 07:00 Results - Labs CBC & Chem 7: 01/04/18 04:00 01/04/18 04:00 Laboratory Results - last 24 hr 01/03/18 01/03/18 01/04/18 05:45 18:09 00:36 WBC RBC Hgb Hct MCV MCH MCHC RDW Plt Count MPV Sodium Potassium Chloride Carbon Dioxide Anion Gap BUN Creatinine Estimated GFR POC Glucose 187 H 211 H Random Glucose Hemoglobin A1c 6.3 H Calcium 01/04/18 01/04/18 04:00 04:00 WBC 21.1 H RBC 3.87 L Hgb 11.2 L Hct 34.0 L MCV 87.9 MCH 29.0 MCHC 33.0 RDW 15.1 Plt Count 450 MPV 8.3 Sodium 132 L Potassium 4.5 Chloride 92 L Carbon Dioxide 32.0 Anion Gap 8 BUN 18 Creatinine 0.31 L Estimated GFR Greater than 89 POC Glucose Random Glucose 86 D Hemoglobin A1c Calcium 9.1 Assessment and Plan - Plan This is a 62-year-old male with past medical history of right tonsil and cancer , squamous cell carcinoma moderately differentiated, presented emergency department complaining of pain in the neck and unable to eat or drink associated with cough, found to have a large tumor involving the tongue in the right side of the pharynx with necrotic right cervical lymphadenopathy. Patient initially admitted to the hospitalist service, however overnight, respiratory distress and patient had to be emergently trached and was transferred to the dental ceramist assistant. Hypoxic respiratory failure, COPD exacerbation, head and neck cancer, lung mass with airway compromise-status post emergent tracheostomy 12/20/2017, presently on trach collar, continue Symbicort, Combivent, T-piece as tolerated. Pulmonary following. Levsin increase, secretions are better. On scopolamine. Head and neck cancer, squamous cell carcinoma right tonsil-hematology oncology following for chemotherapy, preparing for XRT. Continue pain control. Continue narcotics, gabapentin, tizanidine and Tylenol. Febrile illness with leukocytosis-ruled out sepsis, Levaquin and Flagyl discontinued. Leukocytosis could be from tumor necrosis plus steroids per infectious disease and hematology, stable. Chest x-ray improved. Observe off antibiotics. Nutrition-status post PEG placement 12/19/2017, continue Glucerna 1.5 at 65 cc/h with free water every 8 hours 200 cc. Hyperglycemia-continue sliding-scale insulin, hemoglobin A1c is 6.3, BG's 180s- 250s, will start low-dose Levemir. Hyponatremia-mild, start normal saline Prophylaxis: Lansoprazole, SCDs, Lovenox.
[2018-01-04] MEDS: Sod Chloride 0.9% Inj 1,000 ML IV.CONT SCH (14:27)
--- NOTE | 2018-01-04 18:19 | P.PNPL ---
Subjective Interval history: 62 YO WM wit H&N CA,RF, Trach ON PSV, trach collar Tolerates TF Awake, follows commands Has blood tinged trach secretions Physical Exam Vital signs: Vital Signs 01/03/18 19:00 01/03/18 20:00 01/03/18 20:20 Temperature Pulse Rate 82 Respiratory Rate 17 Blood Pressure 118/67 Pulse Oximetry 100 100 100 01/03/18 21:00 01/03/18 22:00 01/03/18 23:00 Temperature Pulse Rate 82 79 80 Respiratory Rate 17 15 14 Blood Pressure 115/64 111/64 101/63 Pulse Oximetry 01/04/18 00:00 01/04/18 01:00 01/04/18 02:00 Temperature 99.0 F Pulse Rate 85 79 91 H Respiratory Rate 16 16 21 Blood Pressure 113/64 110/55 L 149/78 H Pulse Oximetry 99 100 01/04/18 02:10 01/04/18 03:00 01/04/18 04:00 Temperature Pulse Rate 80 81 Respiratory Rate 17 15 Blood Pressure 116/68 133/70 Pulse Oximetry 100 93 L 95 01/04/18 05:00 01/04/18 07:00 01/04/18 08:00 Temperature Pulse Rate 79 87 81 Respiratory Rate 17 16 16 Blood Pressure 123/66 139/72 135/70 Pulse Oximetry 01/04/18 08:01 01/04/18 09:00 01/04/18 09:04 Temperature Pulse Rate 81 Respiratory Rate 16 15 Blood Pressure 120/67 Pulse Oximetry 97 97 01/04/18 10:00 01/04/18 11:00 01/04/18 11:11 Temperature Pulse Rate 87 72 72 Respiratory Rate 18 14 Blood Pressure 135/74 133/68 Pulse Oximetry 97 96 01/04/18 11:12 01/04/18 12:00 01/04/18 13:00 Temperature Pulse Rate 77 87 Respiratory Rate 15 16 Blood Pressure 124/66 118/68 Pulse Oximetry 95 98 99 01/04/18 13:11 01/04/18 14:00 01/04/18 15:00 Temperature Pulse Rate 87 75 80 Respiratory Rate 16 16 Blood Pressure 145/70 H 132/71 Pulse Oximetry 98 94 L 01/04/18 16:00 Temperature 98.6 F Pulse Rate 80 Respiratory Rate 16 Blood Pressure 127/65 Pulse Oximetry 97 Intake & Output 01/03/18 01/04/18 01/04/18 18:59 06:59 18:59 Intake Total 375 / 375 543 / 543 Output Total 400 / 400 350 / 350 800 / 800 Balance -25 / -25 193 / 193 -800 / -800 Weight 59.5 kg Intake: Tube Feeding 175 / 175 543 / 543 Water Bolus Amount 200 / 200 Output: Urine 400 / 400 350 / 350 800 / 800 Other: Date of Last Bowel Movement 01/03/18 01/04/18 01/04/18 # Bowel Movements 6 4 Narrative: Not in distress Trach in place, tongue is still edematous protruding from mouth, inability to do any oral exam. Right-sided neck mass, tracheostomy in place Regular rate and rhythm, right chest Kftxll-o-Dyxu in place Clear breath sounds, occasional bronchial No edema Alert awake and oriented 3. Moves extremities, follows commands. - Urinary Catheter Management Indwelling Urethral Catheter Cath placed during this visit: yes, but has since been removed by the nurse Reason for continuing: Not indwelling catheter Insertion date: 12/20/17 Insertion time: 00:00 Removal date: 01/02/18 Removal time: 07:00 Assessment and Plan - Plan Resp failure S/P Emergent trach Neck Mass H&N Ca COPD PLAN: trach collar Fio2 45% Aerosol nebs cont Abx Tube feeding Scopolamine patch q 72 hrs If increased hemoptysis, will use racemic epi nebs
--- NOTE | 2018-01-04 18:51 | P.PNONC ---
Subjective Interval history: "It hurts a lot." Patient motions to his right neck, grimacing at the same time. Discussed plan to start next weekly cycle of chemotherapy, awaiting the start of radiation. Objective Vital Signs/Intake & Output: Vital Signs 01/03/18 19:00 01/03/18 20:00 01/03/18 20:20 Temperature Pulse Rate 82 Respiratory Rate 17 Blood Pressure 118/67 Pulse Oximetry 100 100 100 01/03/18 21:00 01/03/18 22:00 01/03/18 23:00 Temperature Pulse Rate 82 79 80 Respiratory Rate 17 15 14 Blood Pressure 115/64 111/64 101/63 Pulse Oximetry 01/04/18 00:00 01/04/18 01:00 01/04/18 02:00 Temperature 99.0 F Pulse Rate 85 79 91 H Respiratory Rate 16 16 21 Blood Pressure 113/64 110/55 L 149/78 H Pulse Oximetry 99 100 01/04/18 02:10 01/04/18 03:00 01/04/18 04:00 Temperature Pulse Rate 80 81 Respiratory Rate 17 15 Blood Pressure 116/68 133/70 Pulse Oximetry 100 93 L 95 01/04/18 05:00 01/04/18 07:00 01/04/18 08:00 Temperature Pulse Rate 79 87 81 Respiratory Rate 17 16 16 Blood Pressure 123/66 139/72 135/70 Pulse Oximetry 01/04/18 08:01 01/04/18 09:00 01/04/18 09:04 Temperature Pulse Rate 81 Respiratory Rate 16 15 Blood Pressure 120/67 Pulse Oximetry 97 97 01/04/18 10:00 01/04/18 11:00 01/04/18 11:11 Temperature Pulse Rate 87 72 72 Respiratory Rate 18 14 Blood Pressure 135/74 133/68 Pulse Oximetry 97 96 01/04/18 11:12 01/04/18 12:00 01/04/18 13:00 Temperature Pulse Rate 77 87 Respiratory Rate 15 16 Blood Pressure 124/66 118/68 Pulse Oximetry 95 98 99 01/04/18 13:11 01/04/18 14:00 01/04/18 15:00 Temperature Pulse Rate 87 75 80 Respiratory Rate 16 16 Blood Pressure 145/70 H 132/71 Pulse Oximetry 98 94 L 01/04/18 16:00 Temperature 98.6 F Pulse Rate 80 Respiratory Rate 16 Blood Pressure 127/65 Pulse Oximetry 97 Intake & Output 01/03/18 01/04/18 01/04/18 18:59 06:59 18:59 Intake Total 375 / 375 543 / 543 Output Total 400 / 400 350 / 350 800 / 800 Balance -25 / -25 193 / 193 -800 / -800 Weight 59.5 kg Intake: Tube Feeding 175 / 175 543 / 543 Water Bolus Amount 200 / 200 Output: Urine 400 / 400 350 / 350 800 / 800 Other: Date of Last Bowel Movement 01/03/18 01/04/18 01/04/18 # Bowel Movements 6 4 Result Diagrams: 01/04/18 04:00 01/04/18 04:00 Laboratory Results: Laboratory Results - last 24 hr 01/04/18 01/04/18 01/04/18 00:36 04:00 04:00 WBC 21.1 H RBC 3.87 L Hgb 11.2 L Hct 34.0 L MCV 87.9 MCH 29.0 MCHC 33.0 RDW 15.1 Plt Count 450 MPV 8.3 Sodium 132 L Potassium 4.5 Chloride 92 L Carbon Dioxide 32.0 Anion Gap 8 BUN 18 Creatinine 0.31 L Estimated GFR Greater than 89 POC Glucose 211 H Random Glucose 86 D Calcium 9.1 01/04/18 16:06 WBC RBC Hgb Hct MCV MCH MCHC RDW Plt Count MPV Sodium Potassium Chloride Carbon Dioxide Anion Gap BUN Creatinine Estimated GFR POC Glucose 215 H Random Glucose Calcium Medications: Active Medications Generic Name Dose Route Start Last Admin Trade Name Freq PRN Reason Stop Dose Admin Acetaminophen 650 mg 12/25/17 00:01 12/27/17 14:26 Tylenol PO 650 mg Q6H PRN Administration FEVER/PAIN SCALE 1 to 2 Albuterol 2.5 mg 12/26/17 16:04 01/02/18 04:06 Albuterol Neb (Prn) NEB 2.5 mg Q2HR NEB PRN Administration DYSPNEA Alprazolam 0.5 mg 12/25/17 00:01 12/28/17 14:13 Xanax G-TUBE 0.5 mg Q6H PRN Administration Anxiety/Agitation Artificial Tears 1 drop 12/26/17 17:00 01/04/18 17:05 Tears Naturale Opth Drops EACH EYE Not Given Q8H [facility] Budesonide/Formoterol Fumarate 2 puff 12/25/17 09:00 01/04/18 08:00 Symbicort 160/4.5 Mcg Inh INH Not Given BID [facility] Chlorhexidine Gluconate 15 ml 12/25/17 09:00 01/04/18 08:00 Peridex 0.12% Liq SWISH-SPIT Not Given BID [facility] Docusate Sodium 100 mg 12/26/17 21:00 01/04/18 08:00 Colace Liq G-TUBE Not Given BID [facility] Enoxaparin Sodium 40 mg 01/04/18 12:00 01/04/18 12:01 Lovenox Inj SQ Not Given Q24H [facility] Gabapentin 300 mg 12/29/17 08:15 01/04/18 13:49 Neurontin Liq PO Not Given Q8HR [facility] Hyoscyamine 0.25 mg 01/03/18 18:00 01/04/18 17:06 Levsin PO 0.25 mg Q6HR [facility] Administration Sodium Chloride 1,000 mls @ 84 mls/hr 01/04/18 13:30 01/04/18 14:27 Ns Inj IV.CONT 84 mls/hr .[id number] [facility] Administration Insulin Aspart 0 unit 12/26/17 18:00 01/04/18 17:06 Novolog Insulin Suppl Scale Inj SQ 4 unit Q6HR [facility] Administration Protocol Lansoprazole 30 mg 12/27/17 09:00 01/04/18 08:00 Prevacid Solutab NG/OG 30 mg DAILY [facility] Administration Morphine Sulfate 2 mg 12/28/17 08:36 01/04/18 10:09 Morphine Inj IV.PUSH 2 mg Q2H PRN Administration PAIN SCALE 5-10/SEVERE COUGH Morphine Sulfate 5 mg 01/04/18 09:53 01/04/18 15:57 Roxanol Liq NG/OG 5 mg Q4H PRN Administration PAIN 6-10;IF UNABLE TO TAKE PO Ondansetron HCl 4 mg 12/25/17 17:35 12/31/17 17:30 Zofran Odt PO 4 mg Q6H PRN Administration NAUSEA OR VOMITING Ondansetron HCl 4 mg 01/01/18 20:02 01/02/18 06:38 Zofran Inj IV.PUSH 4 mg Q6H PRN Administration NAUSEA Oxycodone HCl 10 mg 12/25/17 00:01 01/01/18 23:15 Roxicodone PO 10 mg Q4H PRN Administration Pain Scale 3 to 5 Sodium Chloride 2 ml 12/25/17 09:00 01/04/18 08:00 Ns Flush IV.FLUSH 2 ml BID [facility] Administration Sterile Water 200 ml 12/25/17 06:00 01/04/18 13:48 Free Water G-TUBE Not Given Q8HR [facility] Temazepam 15 mg 12/25/17 18:35 01/04/18 02:49 Restoril NG/OG 15 mg HS PRN Administration INSOMNIA Tizanidine HCl 4 mg 12/29/17 09:00 01/04/18 08:00 Zanaflex PO 4 mg Q12HR [facility] Administration Objective Remarks: GENERAL: Cachectic chronically ill-appearing man. SKIN: Warm and dry. Protruded tongue with dryness at the tip. HEAD: Normocephalic. Large right neck mass. EYES: No scleral icterus. No injection or drainage. NECK: Supple, trachea midline. No JVD or lymphadenopathy. LYMPHATIC: No adenopathy. CARDIOVASCULAR: Regular rate and rhythm without murmurs. RESPIRATORY: Breath sounds equal bilaterally. No accessory muscle use. GASTROINTESTINAL: Abdomen soft, non-tender, nondistended. EXTREMITIES: No cyanosis, or edema. MUSCULOSKELETAL: Adequate muscle tone. NEUROLOGICAL: No obvious focal deficit. Awake, alert, and oriented x3. PSYCHIATRIC: Appropriate mood and affect; insight and judgment normal. 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 A delay in his treatment coordinated by the [facility] resulted in his presentation to this hospital with a symptomatic large right neck and base of tongue/tonsil mass. s/p first dose of chemotherapy with carbo/taxol 12/22, second cycle was 12/29, tomorrow will be week 3. Plan: 1. Proceed with radiation when treatment planning is complete. The case was discussed at length with Dr. German. 2. Palliative chemotherapy tomorrow. He has a transient response with decreasing size of the mass only to enlarge the following week prior to his next cycle of chemotherapy. Noted is his labs which are stable and adequate to proceed with chemotherapy week 3 tomorrow with carboplatin and Taxol. 3. Continue supportive care. Main complaint is related to the pain in the right neck. We will consult palliative care to assist with pain and symptom management. Treatment after our is largely palliative. 4. For pain management, his Roxanol will be scheduled for the next 24 hours. We will determine his dose over the next 24 hours. Patient may refuse.
[2018-01-04] MEDS: Insulin Detemir Inj 1,000 UNIT/10 ML Vial SQ SCH (20:01)
[2018-01-04] MEDS: Morphine Sulfate Oral Liq 10 MG/0.5 ML Syringe NG/OG SCH ×2 (20:07→23:05)
[2018-01-04] MEDS: Scopalamine 1.5 MG Patch T-DERMAL SCH (21:18)
[2018-01-04] MEDS: [UNRECOGNIZED DRUG - REMARK] T-DERMAL SCH (21:19)
[2018-01-05] MEDS: Insulin NovoLOG Aspart Correctional Sugar Inj SQ SCH ×4 (01:15→18:43)
[2018-01-05] MEDS: Morphine Inj 4 MG/ML Vial IV.PUSH PRN ×5 (01:30→23:26)
[2018-01-05] MEDS: Artificial Tears Opth Drops 15 ML Bottle EACH EYE SCH (02:15)
[2018-01-05] MEDS: Morphine Sulfate Oral Liq 10 MG/0.5 ML Syringe NG/OG SCH ×5 (03:57→18:42)
[2018-01-05] MEDS: Sod Chloride 0.9% Inj 1,000 ML IV.CONT SCH ×2 (04:13→16:56)
[2018-01-05] MEDS: Gabapentin Liq 250 MG/5 ML UDC PO SCH ×2 (06:08→21:19)
[2018-01-05] MEDS: Docusate Sodium Liq 100 MG/10 ML UDC G-TUBE SCH ×2 (08:06→21:19)
[2018-01-05] MEDS: Chlorhexidine Gluconate 0.12% Liq 15 ML UDC SWISH-SPIT SCH (08:09)
--- NOTE | 2018-01-05 09:58 | P.DIET ---
Nutritional Evaluation Type of nutrition evaluation: follow-up Nutrition consult regarding: Tube Feeding Screening comments: 12/[address] 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 Pt is s/p PEG and emergency trach, now on T-piece. Pt with head and neck CA, chemo has been initiated. TF Glucerna 1.5 is currently running at 55 ml/hr and pt is tolerating it well. A goal rate of 65 ml/hr is adequate to meet pt's nutritional needs providing 2340 kcals, 129 gms protein and 1184 mls free water. Reviewed MD notes, labs, wts. Will continue to monitor TF tolerance, clinical course. Recommendations: To meet pt's nutritional needs a goal rate of 65 ml/hr is necessary TF Glucerna 1.5 is currently running at 55 ml/hr Dietitian to monitor TF, clinical course. Dietitian to Monitor: Lab values, Intake & Output, Tube feeding tolerance, Weight change, Medical course
--- NOTE | 2018-01-05 09:59 | P.PNIM ---
Subjective Interval history: This is a 62-year-old male with a past medical history of squamous cell carcinoma of the head and neck, lung mass COPD, hypertension diabetes with a history of tobacco abuse, that presented on 12/18. The patient regularly is seen at the [facility] however he was not afforded treatment at this time . The patient was admitted to the medical floor, hematology oncology had been consulted plans were for chemotherapy to be initiated today the patient underwent PEG placement yesterday. Late this afternoon the patient was noted to be hypoxemic with significant airway edema , O2 sat in the 80's, Pao2 59 on 100% nonrebreather ,in the setting of a large tumor mass .A Halicat was called , and the patient was emergently transferred to [facility]. Upon transfer the patient was immediately out evaluated and noted to be in significant respiratory distress, oral airway significantly edematous tongue protruding out of mouth Mallampati unobtainable upon evaluation. The patient appeared to be alert and could not yes and no to questions unable to speak. Quick assessment of CT scans that were previously done of the neck showed a large tumor mass crossing midline. Dr. Cabello , Anesthesiologist in to evaluate patient at bedside discussed case with him. Emergency airway equipment placed at bedside trauma surgery was notified I spoke with Dr. Rangel, patient emergently scheduled for tracheostomy to secure airway. A left radial A-line was placed ABG on 100% nonrebreather was obtained prior to going PaO2 had risen to 60 on nonrebreather mask. 12/21: No acute events overnight. The patient underwent emergency tracheostomy to secure the airway last evening. Norepinephrine and fentanyl infusions have been discontinued this morning patient has been transitioned onto CPAP trials and denies any discomfort. Patient is communicating with board and marker. PEG tube in situ tube feedings Glucerna currently at 30 cc/an hour continue to be advanced to goal. FiO2 has been decreased to .45% 12/22: No acute events overnight. The patient was maintained on CPAP trials throughout the night and this afternoon plan trach collar trials this afternoon PT OT has been initiated. Patient tolerating tube feeds no residuals. 12/23: Patient progressing well currently on trach collar trials greater than 24 hours. Patient tolerating tube feeds diet. Chemotherapy initiated yesterday. Patient denies pain. 12/24: Late entry note patient seen at 11:40 AM. Overnight the patient became agitated pulling off lines and tubes. Patient had previous stated that he has an anxiety disorder ,Xanax was ordered however not given. Upon my evaluation this a.m. O2 saturation noted to be low patient placed on FiO2 of 80% stat ABG was performed to reveal hypoxemia the patient was placed back on CPAP stat chest x-ray was performed which showed worsening airspace disease in the bases. 12/25: Patient noted with episodes of nausea, tube feeds held. Zofran given for nausea. The patient continues to have increased FiO2 requirements the patient is being placed on trach collar during the day CPAP at night. 12/26: Vitals not documented. Currently on CPAP 10/5 and 40%. No bowel movements documented. Not on a bowel regimen. 12/27: Remains on mechanical ventilation via tracheostomy. On CPAP trials. 12/28: no changes. still with cpap trials. 12/29: tolerating t-piece trials. rested on cpap overnight. complaints of continued pain around tumor site, as well as significant secretions. 12/30: clinically doing well. denies complaints. asked that speech re-evaluate him because he would like to start eating real food again. plan for XRT to start today. 12/31: On mechanical ventilation via trach. Tolerating T piece trials 01/01: Remains on mechanical ventilation via trach. 01/02: On T-piece. Awaiting radiation today. 7-10 No overnight events, still has a lot of secretions. Denies worsening of shortness of breath. 7-11 No overnight events, secretions going down, no fever. Shortness of breath is at baseline. 7-12 remains on t-piece with oxygen has lots of secretions tolerating tube feeds DW RN AND PT AM LABS PT AND OT Physical Exam Vital signs: Vital Signs 01/04/18 10:00 01/04/18 11:00 01/04/18 11:11 Temperature Pulse Rate 87 72 72 Respiratory Rate 18 14 Blood Pressure 135/74 133/68 Pulse Oximetry 97 96 01/04/18 11:12 01/04/18 12:00 01/04/18 13:00 Temperature Pulse Rate 77 87 Respiratory Rate 15 16 Blood Pressure 124/66 118/68 Pulse Oximetry 95 98 99 01/04/18 13:11 01/04/18 14:00 01/04/18 15:00 Temperature Pulse Rate 87 75 80 Respiratory Rate 16 16 Blood Pressure 145/70 H 132/71 Pulse Oximetry 98 94 L 01/04/18 16:00 01/04/18 17:00 01/04/18 18:00 Temperature 98.6 F Pulse Rate 80 78 82 Respiratory Rate 16 16 15 Blood Pressure 127/65 132/66 139/70 Pulse Oximetry 97 100 99 01/04/18 19:00 01/04/18 20:00 01/04/18 21:00 Temperature Pulse Rate 75 76 79 Respiratory Rate 15 15 15 Blood Pressure 126/74 142/71 H 101/56 L Pulse Oximetry 93 L 95 95 01/04/18 21:52 01/04/18 22:00 01/04/18 23:00 Temperature Pulse Rate 74 74 Respiratory Rate 16 17 Blood Pressure 109/63 120/63 Pulse Oximetry 96 95 95 01/05/18 00:00 01/05/18 01:00 01/05/18 02:00 Temperature Pulse Rate 77 76 74 Respiratory Rate 15 17 16 Blood Pressure 121/66 137/71 128/71 Pulse Oximetry 95 95 97 01/05/18 03:00 01/05/18 04:00 01/05/18 05:00 Temperature Pulse Rate 79 77 74 Respiratory Rate 22 18 Blood Pressure 134/69 152/73 H Pulse Oximetry 96 Intake & Output 01/04/18 01/05/18 01/05/18 18:59 06:59 18:59 Intake Total 1875 / 1875 Output Total 800 / 800 500 / 500 Balance -800 / -800 1375 / 1375 Weight 61.5 kg Intake: IV 1000 / 1000 NS Inj 1,000 ML @ 84 mls/hr IV. 1000 / 1000 CONT .[id number] [facility] Rx#:[id number] Tube Feeding 875 / 875 Output: Urine 800 / 800 500 / 500 Other: Date of Last Bowel Movement 01/04/18 01/05/18 # Bowel Movements 4 3 Narrative: GENERAL: IN NO ACUTE DISTRESS AWAKE ALERT AND ORIENTED X3 COOPERATIVE SKIN: Warm and dry. HEAD: Atraumatic. Normocephalic. E EYES: Pupils equal and round. No scleral icterus. No injection or drainage. ENT: No nasal bleeding or discharge. Mucous membranes pink and moist. TONGUE STILL VERY EDEMATOUS PROTRUDING FROM MOUTH NECK: Trachea midline. No JVD. TRACHEOSTOMY RIGHT SIDE NECK MASS CARDIOVASCULAR: Regular rate and rhythm.S1, S2 NO S3 OR S4 [id number] IN PLACE RESPIRATORY: No accessory muscle use. Clear to auscultation. Breath sounds equal bilaterally. FEW SCATTERED RHONCHI GASTROINTESTINAL: Abdomen soft, non-tender, nondistended. Hepatic and splenic margins not palpable. MUSCULOSKELETAL: Extremities without clubbing, cyanosis, or edema. No obvious deformities. NEUROLOGICAL: Awake and alert. No obvious cranial nerve deficits. Motor grossly within normal limits. Five out of 5 muscle strength in the arms and legs. Normal speech. PSYCHIATRIC: Appropriate mood and affect; insight and judgment normal. - Urinary Catheter Management Indwelling Urethral Catheter Cath placed during this visit: yes, but has since been removed by the nurse Reason for continuing: Not indwelling catheter Insertion date: 12/20/17 Insertion time: 00:00 Removal date: 01/02/18 Removal time: 07:00 Results - Labs CBC & Chem 7: 01/04/18 04:00 01/04/18 04:00 Laboratory Results - last 24 hr 01/04/18 01/05/18 01/05/18 16:06 00:30 06:13 POC Glucose 215 H 161 H 197 H - Imaging ITS Impressions Chest X-Ray 12/25/17 06:00 CONCLUSION: Support apparatus unchanged. Stable basilar airspace disease and trace pleural fluid. Chest X-Ray 12/27/17 00:01 CONCLUSION: Persistent nonconsolidative airspace infiltrates in the left lower lung. - Procedures SP TRACH AND PEG Assessment and Plan - Plan This is a 62-year-old male with past medical history of right tonsil and cancer , squamous cell carcinoma moderately differentiated, presented emergency department complaining of pain in the neck and unable to eat or drink associated with cough, found to have a large tumor involving the tongue in the right side of the pharynx with necrotic right cervical lymphadenopathy. Patient initially admitted to the hospitalist service, however overnight, respiratory distress and patient had to be emergently trached and was transferred to the rides attendant. Hypoxic respiratory failure, COPD exacerbation, head and neck cancer, lung mass with airway compromise-status post emergent tracheostomy 12/20/2017, presently on trach collar, continue Symbicort, Combivent, T-piece as tolerated. Pulmonary following. Levsin increase, secretions are better. On scopolamine. Head and neck cancer, squamous cell carcinoma right tonsil-hematology oncology following for chemotherapy, preparing for XRT. Continue pain control. Continue narcotics, gabapentin, tizanidine and Tylenol. Febrile illness with leukocytosis-ruled out sepsis, Levaquin and Flagyl discontinued. Leukocytosis could be from tumor necrosis plus steroids per infectious disease and hematology, stable. Chest x-ray improved. Observe off antibiotics. Nutrition-status post PEG placement 12/19/2017, continue Glucerna 1.5 at 65 cc/h with free water every 8 hours 200 cc. Hyperglycemia-continue sliding-scale insulin, hemoglobin A1c is 6.3, BG's 180s- 250s, will start low-dose Levemir. Hyponatremia-mild, start normal saline Prophylaxis: Lansoprazole, SCDs, Lovenox. Code Status: FULL CODE Discussed Condition With: RN AND PT Discharge Planning: PENDING CLEARANCE BY ALL
--- NOTE | 2018-01-05 11:33 | P.CONPAL ---
Consult Service: Palliative Care Requesting Physician: Stephanie Garrison Reason for Consult: a. To assist with evaluation and management of symptoms including: pain, dyspnea, anxiety, nausea b. To assist medical decision maker(s) with: better understanding of current medical conditions; weighing benefits/burdens of medical treatment options; making medical treatment decisions. Primary Care Provider: [facility] History of Present Illness History of Present Illness: This is a 62 yo male with history head and neck cancer, COPD, DM, etoh abuse, tobacco abuse, mediastinal and hilar masses who presented 12/17 with right sided neck pain that had worsened over 4 days, hemoptysis. He has had numerous hospital admissions and ER visits in the past, 15 in the last 2 years. He had 2 previous admissions earlier this year. He presented in June with complaint of throat and neck pain, was seen by ENT and then oncology consulted. At that time Dr Garrison attempted to discuss healthcare surrogate designation and advanced directives but he was unwilling. He was admitted from 09/22 to 09/28 for SOB, cough, facial pain. He was treated for COPD exacerbation and PNA and discharged with home health. He was evaluated by Dr. Garrison 09/23/17 who noted he had incomplete workup for head and neck cancer, mediastilan and hilar adenopathy. At that time Pt was not receptive or cooperative. He was getting care from MD but there were delays in coordinating treatments and tests. Dr Garrison recommended biopsy mediastinal and hilar lesions. Attempts were made to coordinate chemotherapy and radiation with Dr. German on outpt basis. Hospital course this admission as follows: * 12/18 CT neck showed large tumor involving tongue adn right pharynx, necrotic right lymphadenopathy, CT chest showed enlarged hilar node, severe emphysema, apical scarring, dependent atelectasis, severe coronary artery calcifications * 12/19 oncology consulted, noted pt may not be candidate for aggressive treatment as he was malnourished; IR placed g-tube * 12/20 critical care medicine consulted after episode hypoxia and airway edema, sats in 80's; emergency tracheotomy done * 12/21 ID consulted re persistent leukocytosis, poss aspiration pneumonitis; radiation oncology consulted, plans to start chemo and radiation * 12/24 CXR with worsening airspace disease, pt placed on 80% Fio2 * 12/28 palliative chemotherapy underway, CPAP trials ongoing * 12/29 tolerating t piece trials, having tumor pain, secretions Dual visit with VARUN Rollins. Pt is awake, alert, oriented. He is unable to speak but he does shake his head yes and no, and gesture. Pt denies weakness. Denies vomiting. Admits mild nausea. Complains of secretions and mucus. Admits pain around the mass on his right cheek and neck, is tender. Denies feeling particularly anxious. Despite questioning, he will not further quantify or qualify his symptoms. It has been noted by oncology that chemotherapy has had transient effect at shrinking tumor but tumor grows again prior to next treatment. It has been noted that chemotherapy has had transient effect at shrinking tumor but tumor grows again prior to next treatment. Function/Cognitive Trajectory: Pt has been living at home with friend. Independent with ADLs, able to ambulate unassisted. After previous admission in August was discharged with home health. Review of Systems other (pt w/ trach, ltd ROS done to best of my ability from pt, chart, RN) Constitutional: Reports body ache(s), Reports fever(s), Reports weight loss Ears, Nose, Mouth, and Throat: Reports mouth lesions, Reports neck lump, Reports neck pain, Reports pain with swallowing, Reports sore throat, Reports throat swelling, Reports tongue swelling, Denies abnormal hearing Cardiovascular: Denies chest pain Respiratory: Reports cough, Reports coughing up blood, Reports excessive phlegm production Gastrointestinal: Reports difficulty swallowing, Denies abdominal pain Musculoskeletal: Reports decreased muscle mass Skin/Breast: Reports nail changes Neurologic: Reports abnormal speech Psychiatric: Denies anxiety [facility] - History History Provided By: Medical Record (FAMILY HX: mother alive, age 90; father unk cause) - Medical History Medical History: Medical History (Last Updated 01/05/18 @ 10:46 by VARUN Lo) Alcohol abuse COPD (chronic obstructive pulmonary disease) Head and neck cancer Lung mass Pancreatitis Tobacco abuse - Surgical History Surgical History: Surgical History (Last Updated 01/05/18 @ 10:48 by VARUN Lo) History of bowel resection Previous back surgery - Tobacco History Smoking Status: Former smoker Tobacco Type: Cigarettes Packs Per Day: 0 years: 40 - Substance Use History Substance History: Past History Medications and Allergies Active Medications: Active Medications Acetaminophen (Tylenol) 650 mg PO Q6H PRN PRN Reason: FEVER/PAIN SCALE 1 to 2 Last Admin: 12/27/17 14:26 Dose: 650 mg Al Hydroxide/Mg Hydroxide (Milk Of Magnesia Liq) 30 ml PO Q12H PRN PRN Reason: Mild Constipation Albuterol (Albuterol Neb (Prn)) 2.5 mg NEB Q2HR NEB PRN PRN Reason: DYSPNEA Last Admin: 01/02/18 04:06 Dose: 2.5 mg Alprazolam (Xanax) 0.5 mg G-TUBE Q6H PRN PRN Reason: Anxiety/Agitation Last Admin: 12/28/17 14:13 Dose: 0.5 mg Artificial Tears (Tears Naturale Opth Drops) 1 drop EACH EYE Q8H [facility] Last Admin: 01/05/18 02:15 Dose: Not Given Bisacodyl (Dulcolax Supp) 10 mg RECTAL DAILY PRN PRN Reason: severe constipation Budesonide/Formoterol Fumarate (Symbicort 160/4.5 Mcg Inh) 2 puff INH BID [facility] Last Admin: 01/04/18 20:03 Dose: Not Given Chlorhexidine Gluconate (Peridex 0.12% Liq) 15 ml SWISH-SPIT BID [facility] Last Admin: 01/05/18 08:09 Dose: 15 ml Dextrose (D50w Vial) 50 ml IV.PUSH UNSCH PRN PRN Reason: PER HYPOGLYCEMIA PROTOCOL Docusate Sodium (Colace Liq) 100 mg G-TUBE BID [facility] Last Admin: 01/05/18 08:06 Dose: 100 mg Enoxaparin Sodium (Lovenox Inj) 40 mg SQ Q24H [facility] Last Admin: 01/04/18 12:01 Dose: Not Given Gabapentin (Neurontin Liq) 300 mg PO Q8HR [facility] Last Admin: 01/05/18 06:08 Dose: Not Given Glucagon (Glucagon Inj) 1 mg OTHER PRN PRN PRN Reason: for Hypoglycemia Protocol Heparin Sodium (Porcine) (Heparin Central Flush) 500 unit IV.FLUSH PRN PRN PRN Reason: Flush infusaport Heparin Sodium (Porcine) (Heparin Central Flush) 250 unit IV.FLUSH PRN PRN PRN Reason: Flush Infusapot Hyoscyamine (Levsin) 0.25 mg PO Q6HR [facility] Last Admin: 01/05/18 06:08 Dose: 0.25 mg Sodium Chloride (Ns Inj) 1,000 mls @ 84 mls/hr IV.CONT .[id number] [facility] Last Admin: 01/05/18 04:13 Dose: 84 mls/hr Magnesium Sulfate Inj 4 gm/ (Sodium Chloride) 100 mls @ 50 mls/hr IV.SIG UNSCH PRN PRN Reason: For Magnesium 0.9 - 1.1 mg/dL Magnesium Sulfate Inj 2 gm/ (Sodium Chloride) 100 mls @ 50 mls/hr IV.SIG UNSCH PRN PRN Reason: For Magnesium 1.2 - 1.6 mg/dL Potassium Chloride (Kcl 40 Meq Premix Inj) 40 meq in 100 mls @ 25 mls/hr IV.SIG UNSCH PRN PRN Reason: For Potassium 3.3 - 3.5 mEq/L Sodium Phosphate 30 mmol/ (Sodium Chloride) 260 mls @ 42 mls/hr IV.SIG UNSCH PRN PRN Reason: For Phosphorus < 2.5 mg/dL Potassium Phosphate 30 mmol/ (Sodium Chloride) 260 mls @ 42 mls/hr IV.SIG UNSCH PRN PRN Reason: SEE LABEL COMMENTS Insulin Aspart (Novolog Insulin Suppl Scale Inj) 0 unit SQ Q6HR [facility]; Protocol Last Admin: 01/05/18 06:30 Dose: 2 unit Insulin Detemir (Levemir Inj) 6 unit SQ HS [facility] Last Admin: 01/04/18 20:01 Dose: 6 unit Lactulose (Lactulose Liq) 30 ml PO DAILY PRN PRN Reason: Severe Constipation Lansoprazole (Prevacid Solutab) 30 mg NG/OG DAILY [facility] Last Admin: 01/05/18 08:07 Dose: 30 mg Magnesium Oxide (Mag-Ox) 800 mg PO UNSCH PRN PRN Reason: For Magnesium 1.2 - 1.6 mg/dL Metoclopramide HCl (Reglan Inj) 10 mg IV.PUSH Q6H PRN PRN Reason: Nausea or Vomiting Morphine Sulfate (Morphine Inj) 2 mg IV.PUSH Q2H PRN PRN Reason: PAIN SCALE 5-10/SEVERE COUGH Last Admin: 01/05/18 06:09 Dose: 2 mg Morphine Sulfate (Roxanol Liq) 5 mg NG/OG Q4H [facility] Last Admin: 01/05/18 06:30 Dose: 5 mg Ondansetron HCl (Zofran Odt) 4 mg PO Q6H PRN PRN Reason: NAUSEA OR VOMITING Last Admin: 12/31/17 17:30 Dose: 4 mg Ondansetron HCl (Zofran Inj) 4 mg IV.PUSH Q6H PRN PRN Reason: NAUSEA Last Admin: 01/02/18 06:38 Dose: 4 mg Oxycodone HCl (Roxicodone) 10 mg PO Q4H PRN PRN Reason: Pain Scale 3 to 5 Last Admin: 01/01/18 23:15 Dose: 10 mg Patch Removal (Remove Old Patch) 1 each T-DERMAL Q72H [facility] Last Admin: 01/04/18 21:19 Dose: Not Given Potassium Bicarb/Potassium Chloride (K-Lyte) 50 meq PO UNSCH PRN PRN Reason: For Potassium 3.3 - 3.5 mEq/L Potassium Phosphate (K-Phos Original) 2,000 mg PO UNSCH PRN PRN Reason: SEE LABEL COMMENTS Promethazine HCl (Phenergan Inj) 25 mg IM ONCE PRN PRN Reason: breakthrough nausea Scopolamine (Transderm-Scop 1.5 Mg Patch.72hr) 1 patch T-DERMAL Q72H [facility] Last Admin: 01/04/18 21:18 Dose: 1 patch Sennosides (Senokot) 17.2 mg PO Q12H PRN PRN Reason: Moderate constipation Sodium Chloride (Ns Flush) 5 ml IV.FLUSH PRN PRN PRN Reason: Flush Infusaport Sodium Chloride (Ns Flush) 2 ml IV.FLUSH UNSCH PRN PRN Reason: Flush after using IV access Sodium Chloride (Ns Flush) 2 ml IV.FLUSH BID [facility] Last Admin: 01/05/18 08:07 Dose: 2 ml Sterile Water (Free Water) 200 ml G-TUBE Q8HR [facility] Last Admin: 01/05/18 06:08 Dose: Not Given Temazepam (Restoril) 15 mg NG/OG HS PRN PRN Reason: INSOMNIA Last Admin: 01/04/18 02:49 Dose: 15 mg Tizanidine HCl (Zanaflex) 4 mg PO Q12HR [facility] Last Admin: 01/05/18 08:07 Dose: 4 mg Allergies Allergy/AdvReac Type Severity Reaction Status Date / Time penicillin G Allergy Severe SWELLING Unverified 12/17/17 21:20 *MDRO Multi-Drug Resistant AdvReac Unknown Uncoded 12/17/17 21:20 Organism Home Medications Medication Instructions Recorded Confirmed Type Flagyl 500 mg PO Q8HR 12/24/17 12/24/17 History Levaquin 500 mg PO DAILY 12/24/17 12/24/17 History Symbicort 2 puff INHALATION Q12HR 12/24/17 12/24/17 History Ventolin HFA 2 inhalation Q4-6H 12/24/17 12/24/17 History albuterol sulfate 1 amp NEB Q4HR 12/24/17 12/24/17 History aspirin 81 mg CHEW DAILY 12/24/17 12/24/17 History glipizide 10 mg PO DAILY 12/24/17 12/24/17 History lisinopril 5 mg PO DAILY 12/24/17 12/24/17 History nebulizers 12/24/17 12/24/17 History omeprazole 10 mg PO DAILY 12/24/17 12/24/17 History oxycodone 5 mg PO Q4HR PRN 12/24/17 12/24/17 History pravastatin 40 mg PO HS 12/24/17 12/24/17 History prednisone 5 mg PO DAILY 12/24/17 12/24/17 History Advance Directives Healthcare Surrogate: Yes Health Care Surrogate Name and Number: primary HCS Jai Dolan; secondary Dianna Dolan Ethical and Legal Issues: Pt is currently capacitated to make decisions however communication is difficult. Should he become incapacitate, he designated Monster Dolan as HCS. He asks that his HCS not be contacted or updated currently. Physical Exam Vital Signs: Vital Signs - 24 hr 01/04/18 11:00 01/04/18 11:11 01/04/18 11:12 Temperature Pulse Rate 72 72 Respiratory Rate 14 Blood Pressure 133/68 Pulse Oximetry 96 95 01/04/18 12:00 01/04/18 13:00 01/04/18 13:11 Temperature Pulse Rate 77 87 87 Respiratory Rate 15 16 Blood Pressure 124/66 118/68 Pulse Oximetry 98 99 01/04/18 14:00 01/04/18 15:00 01/04/18 16:00 Temperature 98.6 F Pulse Rate 75 80 80 Respiratory Rate 16 16 16 Blood Pressure 145/70 H 132/71 127/65 Pulse Oximetry 98 94 L 97 01/04/18 17:00 01/04/18 18:00 01/04/18 19:00 Temperature Pulse Rate 78 82 75 Respiratory Rate 16 15 15 Blood Pressure 132/66 139/70 126/74 Pulse Oximetry 100 99 93 L 01/04/18 20:00 01/04/18 21:00 01/04/18 21:52 Temperature Pulse Rate 76 79 Respiratory Rate 15 15 Blood Pressure 142/71 H 101/56 L Pulse Oximetry 95 95 96 01/04/18 22:00 01/04/18 23:00 01/05/18 00:00 Temperature Pulse Rate 74 74 77 Respiratory Rate 16 17 15 Blood Pressure 109/63 120/63 121/66 Pulse Oximetry 95 95 95 01/05/18 01:00 01/05/18 02:00 01/05/18 03:00 Temperature Pulse Rate 76 74 79 Respiratory Rate 17 16 22 Blood Pressure 137/71 128/71 134/69 Pulse Oximetry 95 97 96 01/05/18 04:00 01/05/18 05:00 Temperature Pulse Rate 77 74 Respiratory Rate 18 Blood Pressure 152/73 H Pulse Oximetry I&O: Intake & Output 01/03/18 01/04/18 01/05/18 01/06/18 06:59 06:59 06:59 06:59 Intake Total 2106 / 2106 918 / 918 1875 / 1875 Output Total 800 / 800 750 / 750 1300 / 1300 Balance 1306 / 1306 168 / 168 575 / 575 Weight 60 kg 59.5 kg 61.5 kg Physical Exam: CONSTITUTIONAL/GENERAL: cachectic TUBES/LINES/DRAINS: port, trach to t-piece SKIN: sallow complexion No wounds seen anteriorly other than face. Skin temperature appropriate. Not diaphoretic. HEAD: Atraumatic. Disfigured right face and neck EYES: Pupils equal and round and reactive. Extraocular motions intact. No scleral icterus. No injection or drainage. Fundi not examined. ENT: Hearing grossly normal. Nose without bleeding or purulent drainage. large mass right cheek extending down to neck, tongue protruding. right side face TTP NECK: mass right side. TTP CARDIOVASCULAR: RRR without murmurs, gallops, or rubs. No JVD. Peripheral pulses symmetric. RESPIRATORY/CHEST: coarse breath sounds. equal bilaterally. GASTROINTESTINAL: Abdomen soft, non-tender, nondistended. No hepato-splenomegaly , or palpable masses. No guarding. Bowel sounds present. GENITOURINARY: Without palpable bladder distension. Tavarez catheter in place. MUSCULOSKELETAL: Extremities without clubbing, cyanosis, or edema. No joint tenderness or effusion noted. No calf tenderness. No mottling or clubbing. LYMPHATICS: No palpable cervical or supraclavicular adenopathy. NEUROLOGICAL: Awake and alert. Oriented. Follows commands. Moves all extremities. PSYCHIATRIC: flat affect Diagnostic Tests Laboratory: Laboratory Results - last 72 hr 01/02/18 01/02/18 01/03/18 11:28 18:04 00:11 WBC RBC Hgb Hct MCV MCH MCHC RDW Plt Count MPV Sodium Potassium Chloride Carbon Dioxide Anion Gap BUN Creatinine Estimated GFR POC Glucose 205 H 212 H 213 H Random Glucose Hemoglobin A1c Calcium 01/03/18 01/03/18 01/03/18 05:45 05:45 05:45 WBC 23.4 H RBC 3.90 L Hgb 11.3 L Hct 34.7 L MCV 88.9 MCH 28.9 MCHC 32.5 RDW 15.6 Plt Count 480 H MPV 8.8 Sodium 132 L Potassium 4.5 Chloride 89 L Carbon Dioxide 32.7 H Anion Gap 10 BUN 18 Creatinine 0.33 L Estimated GFR Greater than 89 POC Glucose Random Glucose 199 H Hemoglobin A1c 6.3 H Calcium 9.4 01/03/18 01/03/18 01/04/18 05:47 18:09 00:36 WBC RBC Hgb Hct MCV MCH MCHC RDW Plt Count MPV Sodium Potassium Chloride Carbon Dioxide Anion Gap BUN Creatinine Estimated GFR POC Glucose 250 H 187 H 211 H Random Glucose Hemoglobin A1c Calcium 01/04/18 01/04/18 01/04/18 04:00 04:00 16:06 WBC 21.1 H RBC 3.87 L Hgb 11.2 L Hct 34.0 L MCV 87.9 MCH 29.0 MCHC 33.0 RDW 15.1 Plt Count 450 MPV 8.3 Sodium 132 L Potassium 4.5 Chloride 92 L Carbon Dioxide 32.0 Anion Gap 8 BUN 18 Creatinine 0.31 L Estimated GFR Greater than 89 POC Glucose 215 H Random Glucose 86 D Hemoglobin A1c Calcium 9.1 01/05/18 01/05/18 00:30 06:13 WBC RBC Hgb Hct MCV MCH MCHC RDW Plt Count MPV Sodium Potassium Chloride Carbon Dioxide Anion Gap BUN Creatinine Estimated GFR POC Glucose 161 H 197 H Random Glucose Hemoglobin A1c Calcium Result Diagrams: 01/04/18 04:00 01/04/18 04:00 Imaging: ITS Impressions Chest X-Ray 12/27/17 00:01 CONCLUSION: Persistent nonconsolidative airspace infiltrates in the left lower lung. Procedures: 12/19 g tube placement by IR 12/20 emergency tracheostomy 12/22 chemotherapy initiated 12/29 2nd dose chemo Patient/Family Conference Issues Discussed: * Palliative care role, purpose, approach * Additional medical, psychosocial, and spiritual history * Patients general health, functional status, and cognitive changes in the months leading up to the current hospitalization * Patient/family understanding of the current medical problems * Patient/family understanding of prognosis * Patients goals of care as best understood from advance directives and/or conversations and/or values * Current medical treatment options and benefits/burdens of those options * Likely scenarios comparing ongoing aggressive care with a transition to comfort measures only * Questions answered to the best of my ability * Palliative care contact information provided Assessment and Plan - Disease Oriented Problem List (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 Per EMR has daughter Dianna and "friend" Jai. He is an [employer] . Spiritual: unk at this time Legal: Pt is currently capacitated to make decisions however communication is difficult. Should he become incapacitate, he designated Jai and Dianna Dolan as HCS. He asks that his HCS not be contacted or updated currently. Ethical issues impacting care: none at this time Important Contacts: daughter Dianna Dolan [phone] "friend" Jai Dolan home [phone], cell [phone] Prognosis: This is a 62 yo male with COPD, DM, hx etoh & tobacco use, > 40 pack years diagnosed with head and neck cancer. He also has a lung mass which has yet to be biopsied. He has lost 30 lbs in the last 6 months and now requires tube feedings. Has tracheostomy for breathing b/c mass has encroached on his airway. He has started palliative chemotherapy which thus far is only transiently effective at shrinking tumor. It is planned that he begin radiation to his tumor. It is unclear a this time how effective chemotherapy and radiation will be. Given his underlying COPD and lung mass, his prognosis is guarded at best. He is at significant risk for complications and further decline. Code Status: Full Code Plan: - LEGAL DECISON MAKER - pt with trach and communication is difficult but he is alert, oriented, and appropriate, capacitated to make decisions. Should he become incapacitated, he designated Jai Dolan as primary and Dianna Dolan as secondary HCS. He asks that his HCS not be contacted or updated currently. - CODE STATUS- FULL CODE - GOALS - aggressive - SYMPTOMS - * pain - 2/2 tumor, lines, tracheostomy. Admits pain in region of tumor and is exquisitely tender on right side neck and face. He will not further qualify or quantify his pain but per RN he asks for his PRN meds around the clock. Has gabapentin 300mg q8h but refused this today. Morphine 2mg IV q2h PRN pain 5-10 , last had today 608; scheduled roxanol 5mg q4h, PRn oxycodone 10mg q4h pain 3- 5, last had 7/8. Appears in the last 24h he has had 2mg IV morphine and 25mg roxanol. When he is able to swallow could consider long acting morphine. Until then could consider uptitration of roxanol ie 7-8mg q4h. * dyspnea, secretions- 2/2 compromised airway. Has tracheostomy. Denies feeling SOB but indicates his secretions bother him. Unlikely this could improve. Per RN he requires frequent suctioning. On scheduled symbicort, prn michael vasquez. Recommend instructing him on use of Yankauer. * anxiety - multifactorial. On my eval he denies anxiety but is quite apathetic. could be component of depression/anxiety. has 0.5 mg q6h PRN, last had 12/28, temazepam 15mg HS prn insomnia, which he is requesting per AUG. Although won't help in short term, could consider SSRI for longer term tx * nausea - multifactorial, undergoing chemo. Has promethazine 25mg IM PRN breakthrough nausea, scopolamine patch, reglan 10mg q6h PRN, both PO and IV zofran PRN. Does not appear he has been needing these. - pt was reluctant to speak with us but did indicate that he will be okay with further palliative care follow up - Palliative care will continue to follow during hospital course as condition evolves, to assist patient/decision-maker with understanding of medical conditions, weighing benefits/burdens of treatment options, for clarification of goals of treatment. Additionally will assist with any symptoms of palliative concern Appreciation Thank you for the opportunity to participate in the care of Kishor Garrison.
[2018-01-05] MEDS: Enoxaparin Inj 40 MG/0.4 ML Syringe SQ SCH (13:00)
--- NOTE | 2018-01-05 18:06 | P.PNPL ---
Subjective Interval history: 62 YO WM wit H&N CA,RF, Trach ON PSV, trach collar Tolerates TF Awake, follows commands Has lot of trach secretions, not bloody today Physical Exam Vital signs: Vital Signs 01/04/18 19:00 01/04/18 20:00 01/04/18 21:00 Temperature Pulse Rate 75 76 79 Respiratory Rate 15 15 15 Blood Pressure 126/74 142/71 H 101/56 L Pulse Oximetry 93 L 95 95 01/04/18 21:52 01/04/18 22:00 01/04/18 23:00 Temperature Pulse Rate 74 74 Respiratory Rate 16 17 Blood Pressure 109/63 120/63 Pulse Oximetry 96 95 95 01/05/18 00:00 01/05/18 01:00 01/05/18 02:00 Temperature Pulse Rate 77 76 74 Respiratory Rate 15 17 16 Blood Pressure 121/66 137/71 128/71 Pulse Oximetry 95 95 97 01/05/18 03:00 01/05/18 04:00 01/05/18 05:00 Temperature Pulse Rate 79 77 74 Respiratory Rate 22 18 Blood Pressure 134/69 152/73 H Pulse Oximetry 96 01/05/18 08:00 01/05/18 09:00 01/05/18 11:00 Temperature 97.5 F L Pulse Rate 76 76 Respiratory Rate 14 Blood Pressure 127/66 Pulse Oximetry 01/05/18 12:00 01/05/18 13:00 01/05/18 15:00 Temperature 97.9 F Pulse Rate 77 77 82 Respiratory Rate 16 Blood Pressure 121/63 Pulse Oximetry 100 01/05/18 16:00 01/05/18 17:00 Temperature 97.6 F Pulse Rate 86 78 Respiratory Rate 17 Blood Pressure 122/69 Pulse Oximetry 100 Intake & Output 01/04/18 01/05/18 01/05/18 18:59 06:59 18:59 Intake Total 1875 / 1875 1000 / 1000 Output Total 800 / 800 500 / 500 Balance -800 / -800 1375 / 1375 1000 / 1000 Weight 61.5 kg Intake: IV 1000 / 1000 1000 / 1000 NS Inj 1,000 ML @ 84 mls/hr IV. 1000 / 1000 1000 / 1000 CONT .[id number] [facility] Rx#:[id number] Tube Feeding 875 / 875 Output: Urine 800 / 800 500 / 500 Other: Date of Last Bowel Movement 01/04/18 01/05/18 01/05/18 # Bowel Movements 4 3 GENERAL: MBMN WM, on Trach collar SKIN: Warm and dry. HEAD: Normocephalic. Tongue protruding EYES: No scleral icterus. No injection or drainage. NECK: Supple, trachea midline. No JVD or lymphadenopathy. has trach, neck mass CARDIOVASCULAR: Regular rate and rhythm without murmurs, gallops, or rubs. RESPIRATORY: Breath sounds equal bilaterally. No accessory muscle use. GASTROINTESTINAL: Abdomen soft, non-tender, nondistended. PEG in place MUSCULOSKELETAL: No cyanosis, or edema. BACK: Nontender without obvious deformity. No CVA tenderness. - Urinary Catheter Management Indwelling Urethral Catheter Cath placed during this visit: yes, but has since been removed by the nurse Reason for continuing: Not indwelling catheter Insertion date: 12/20/17 Insertion time: 00:00 Removal date: 01/02/18 Removal time: 07:00 Assessment and Plan - Plan Resp failure S/P Emergent trach Neck Mass H&N Ca COPD PLAN: trach collar Fio2 45% Aerosol nebs cont Abx Tube feeding Scopolamine patch q 72 hrs Chemo per oncology Radtion treatments next week
--- NOTE | 2018-01-05 19:17 | P.PNONC ---
Subjective Interval history: Would like his chemo tomorrow morning. Still has pain in the right neck area despite the scheduled Roxanol. Objective Vital Signs/Intake & Output: Vital Signs 01/04/18 20:00 01/04/18 21:00 01/04/18 21:52 Temperature Pulse Rate 76 79 Respiratory Rate 15 15 Blood Pressure 142/71 H 101/56 L Pulse Oximetry 95 95 96 01/04/18 22:00 01/04/18 23:00 01/05/18 00:00 Temperature Pulse Rate 74 74 77 Respiratory Rate 16 17 15 Blood Pressure 109/63 120/63 121/66 Pulse Oximetry 95 95 95 01/05/18 01:00 01/05/18 02:00 01/05/18 03:00 Temperature Pulse Rate 76 74 79 Respiratory Rate 17 16 22 Blood Pressure 137/71 128/71 134/69 Pulse Oximetry 95 97 96 01/05/18 04:00 01/05/18 05:00 01/05/18 08:00 Temperature 97.5 F L Pulse Rate 77 74 Respiratory Rate 18 14 Blood Pressure 152/73 H 127/66 Pulse Oximetry 01/05/18 09:00 01/05/18 11:00 01/05/18 12:00 Temperature 97.9 F Pulse Rate 76 76 77 Respiratory Rate 16 Blood Pressure 121/63 Pulse Oximetry 100 01/05/18 13:00 01/05/18 15:00 01/05/18 16:00 Temperature 97.6 F Pulse Rate 77 82 86 Respiratory Rate 17 Blood Pressure 122/69 Pulse Oximetry 100 01/05/18 17:00 Temperature Pulse Rate 78 Respiratory Rate Blood Pressure Pulse Oximetry Intake & Output 01/05/18 01/05/18 01/06/18 06:59 18:59 06:59 Intake Total 1875 / 1875 1000 / 1000 Output Total 500 / 500 Balance 1375 / 1375 1000 / 1000 Weight 61.5 kg Intake: IV 1000 / 1000 1000 / 1000 NS Inj 1,000 ML @ 84 mls/hr IV. 1000 / 1000 1000 / 1000 CONT .[id number] [facility] Rx#:[id number] Tube Feeding 875 / 875 Output: Urine 500 / 500 Other: Date of Last Bowel Movement 01/05/18 01/05/18 # Bowel Movements 3 Result Diagrams: 01/04/18 04:00 01/04/18 04:00 Laboratory Results: Laboratory Results - last 24 hr 01/05/18 01/05/18 01/05/18 00:30 06:13 13:59 POC Glucose 161 H 197 H 141 H 01/05/18 17:06 POC Glucose 170 H Medications: Active Medications Generic Name Dose Route Start Last Admin Trade Name Freq PRN Reason Stop Dose Admin Acetaminophen 650 mg 12/25/17 00:01 12/27/17 14:26 Tylenol PO 650 mg Q6H PRN Administration FEVER/PAIN SCALE 1 to 2 Albuterol 2.5 mg 12/26/17 16:04 01/02/18 04:06 Albuterol Neb (Prn) NEB 2.5 mg Q2HR NEB PRN Administration DYSPNEA Alprazolam 0.5 mg 12/25/17 00:01 12/28/17 14:13 Xanax G-TUBE 0.5 mg Q6H PRN Administration Anxiety/Agitation Artificial Tears 1 drop 12/26/17 17:00 01/05/18 02:15 Tears Naturale Opth Drops EACH EYE Not Given Q8H BRENDEN Budesonide/Formoterol Fumarate 2 puff 12/25/17 09:00 01/04/18 20:03 Symbicort 160/4.5 Mcg Inh INH Not Given BID BRENDEN Chlorhexidine Gluconate 15 ml 12/25/17 09:00 01/05/18 08:09 Peridex 0.12% Liq SWISH-SPIT 15 ml BID BRENDEN Administration Docusate Sodium 100 mg 12/26/17 21:00 01/05/18 08:06 Colace Liq G-TUBE 100 mg BID BRENDEN Administration Enoxaparin Sodium 40 mg 01/04/18 12:00 01/05/18 13:00 Lovenox Inj SQ 40 mg Q24H BRENDEN Administration Gabapentin 300 mg 12/29/17 08:15 01/05/18 06:08 Neurontin Liq PO Not Given Q8HR BRENDEN Hyoscyamine 0.25 mg 01/03/18 18:00 01/05/18 18:42 Levsin PO 0.25 mg Q6HR BRENDEN Administration Sodium Chloride 1,000 mls @ 84 mls/hr 01/04/18 13:30 01/05/18 16:56 Ns Inj IV.CONT 84 mls/hr .[id number] BRENDEN Administration Insulin Aspart 0 unit 12/26/17 18:00 01/05/18 18:43 Novolog Insulin Suppl Scale Inj SQ 2 unit Q6HR BRENDEN Administration Protocol Insulin Detemir 6 unit 01/04/18 21:00 01/04/18 20:01 Levemir Inj SQ 6 unit HS BRENDEN Administration Lansoprazole 30 mg 12/27/17 09:00 01/05/18 08:07 Prevacid Solutab NG/OG 30 mg DAILY BRENDEN Administration Morphine Sulfate 2 mg 12/28/17 08:36 01/05/18 12:59 Morphine Inj IV.PUSH 2 mg Q2H PRN Administration PAIN SCALE 5-10/SEVERE COUGH Ondansetron HCl 4 mg 12/25/17 17:35 12/31/17 17:30 Zofran Odt PO 4 mg Q6H PRN Administration NAUSEA OR VOMITING Ondansetron HCl 4 mg 01/01/18 20:02 01/02/18 06:38 Zofran Inj IV.PUSH 4 mg Q6H PRN Administration NAUSEA Oxycodone HCl 10 mg 12/25/17 00:01 01/01/18 23:15 Roxicodone PO 10 mg Q4H PRN Administration Pain Scale 3 to 5 Patch Removal 1 each 01/04/18 20:00 01/04/18 21:19 Remove Old Patch T-DERMAL Not Given Q72H BRENDEN Scopolamine 1 patch 01/04/18 20:00 01/04/18 21:18 Transderm-Scop 1.5 Mg Patch.72hr T-DERMAL 1 patch Q72H BRENDEN Administration Sodium Chloride 2 ml 12/25/17 09:00 01/05/18 08:07 Ns Flush IV.FLUSH 2 ml BID BRENDEN Administration Sterile Water 200 ml 12/25/17 06:00 01/05/18 16:58 Free Water G-TUBE Not Given Q8HR BRENDEN Temazepam 15 mg 12/25/17 18:35 01/04/18 02:49 Restoril NG/OG 15 mg HS PRN Administration INSOMNIA Tizanidine HCl 4 mg 12/29/17 09:00 01/05/18 08:07 Zanaflex PO 4 mg Q12HR BRENDEN Administration Objective Remarks: GENERAL: Well-nourished, well-developed patient. SKIN: Warm and dry. Maceration right side of lip, with some dry crust. HEAD: Normocephalic. Right neck mass. EYES: No scleral icterus. No injection or drainage. NECK: Supple, trachea midline. No JVD or lymphadenopathy. Right chest wall MediPort. LYMPHATIC: No adenopathy. CARDIOVASCULAR: Regular rate and rhythm without murmurs. RESPIRATORY: Breath sounds equal bilaterally. No accessory muscle use. GASTROINTESTINAL: Abdomen soft, non-tender, nondistended. PEG tube in place. EXTREMITIES: No cyanosis, or edema. MUSCULOSKELETAL: Adequate muscle tone. NEUROLOGICAL: No obvious focal deficit. Awake, alert, and oriented x3. 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 A delay in his treatment coordinated by the [facility] resulted in his presentation to this hospital with a symptomatic large right neck and base of tongue/tonsil mass. s/p first dose of chemotherapy with carbo/taxol 12/22, second cycle was 12/29, chemo delayed until tomorrow 01/06/18. Plan: 1. Proceed with radiation when treatment planning is complete. 2. Palliative chemotherapy tomorrow. Spoke with patient's nurse to coordinate chemotherapy with [facility] oncology charge nurse. Chemotherapy orders faxed to pharmacy. [facility] oncology nurses alerted however it will require patient's bedside nurse to coordinate the timing of his care and chemotherapy tomorrow. Labs are ordered. We will monitor CBC and CMP. 3. Continue supportive care. Appreciate palliative care consult. 4. For pain management, denies any significant relief from Roxanol. He appears more comfortable despite his complaint. His Roxanol dose will be increased to 8 mg every 4 hours for the next 24 hours. Nursing was asked to alert the patient that he will be receiving pain medication. In this manner he can decide if his pain is responding to the pain medication. Pending on his need for the short acting pain medication a long-acting will be prescribed.
[2018-01-05] MEDS: Insulin Detemir Inj 1,000 UNIT/10 ML Vial SQ SCH (21:10)
[2018-01-05] MEDS: Budesonide-Formoterol 160/4.5 MCG 6 GM Inhaler INH SCH (21:20)
[2018-01-06] MEDS: Artificial Tears Opth Drops 15 ML Bottle EACH EYE SCH ×2 (00:41→09:50)
[2018-01-06] MEDS: Insulin NovoLOG Aspart Correctional Sugar Inj SQ SCH ×6 (00:44→23:54)
[2018-01-06] MEDS: Sod Chloride 0.9% Inj 1,000 ML IV.CONT SCH ×2 (02:10→13:31)
[2018-01-06] MEDS: Morphine Inj 4 MG/ML Vial IV.PUSH PRN ×4 (03:04→17:59)
[2018-01-06] MEDS: Gabapentin Liq 250 MG/5 ML UDC PO SCH ×4 (05:50→21:26)
[2018-01-06 06:01] LABS: Baso # (Auto) 0.1 th/mm3 (0.0-0.2); Baso % (Auto) 0.6 % (0.0-2.0); Eos # (Auto) 0.2 th/mm3 (0.0-0.4); Hematocrit 33.2 % (39.0-51.0); Lymph # (Auto) 1.9 th/mm3 (1.0-4.8); Lymph % (Auto) 8.9 % (9.0-44.0); Mean Corpuscular HGB Conc 33.2 % (32.0-36.0); Mean Corpuscular Hemoglobin 29.5 pg (27.0-34.0); Mean Corpuscular Volume 89.1 fL (80.0-100.0); Mean Platelet Volume 8.8 fL (7.0-11.0); Mono # (Auto) 2.7 th/mm3 (0.0-0.9); Mono % (Auto) 12.2 % (0.0-8.0); Neut # (Auto) 16.9 th/mm3 (1.8-7.7); Neut % (Auto) 77.3 % (16.0-70.0); Platelet Count 421 th/mm3 (150-450); Red Blood Count 3.73 mil/mm3 (4.50-5.90); Red Cell Distribution Width 15.2 % (11.6-17.2); White Blood Count 21.8 th/mm3 (4.0-11.0)
[2018-01-06 06:27] LABS: Albumin 2.7 g/dL (3.4-5.0); Anion Gap 9 meq/L (5-15); Aspartate Aminotransferase 14 U/L (15-37); Blood Urea Nitrogen 12 mg/dL (7-18); Calcium 8.6 mg/dL (8.5-10.1); Carbon Dioxide 27.6 meq/L (21.0-32.0); Chloride 95 meq/L (98-107); Glomerular Filtration Rate Greater Than 89 mL/min (>89); Glucose,Random 167 mg/dL (74-106); Magnesium 1.8 mg/dL (1.5-2.5); Potassium 4.2 meq/L (3.5-5.1); Sodium 132 meq/L (136-145)
[2018-01-06 06:36] LABS: Alanine Aminotransferase 11 U/L (12-78); Alkaline Phosphatase 104 U/L (45-117); Free T4 (Free Thyroxine) 1.27 ng/dL (0.76-1.46); Phosphorus 3.5 mg/dL (2.5-4.9); Total Protein 6.3 g/dL (6.4-8.2)
[2018-01-06] MEDS: Chlorhexidine Gluconate 0.12% Liq 15 ML UDC SWISH-SPIT SCH ×2 (09:49→20:24)
[2018-01-06] MEDS: Docusate Sodium Liq 100 MG/10 ML UDC G-TUBE SCH ×2 (09:49→20:26)
[2018-01-06] MEDS: Budesonide-Formoterol 160/4.5 MCG 6 GM Inhaler INH SCH ×3 (09:50→20:27)
[2018-01-06] MEDS ORDERED: Sodium Chlor 0.9% Inj 250 ML IV.SIG SCH (10:00)
--- NOTE | 2018-01-06 10:00 | P.PNIM ---
Subjective Interval history: This is a 62-year-old male with a past medical history of squamous cell carcinoma of the head and neck, lung mass COPD, hypertension diabetes with a history of tobacco abuse, that presented on 12/18. The patient regularly is seen at the [facility] however he was not afforded treatment at this time . The patient was admitted to the medical floor, hematology oncology had been consulted plans were for chemotherapy to be initiated today the patient underwent PEG placement yesterday. Late this afternoon the patient was noted to be hypoxemic with significant airway edema , O2 sat in the 80's, Pao2 59 on 100% nonrebreather ,in the setting of a large tumor mass .A Halicat was called , and the patient was emergently transferred to [facility]. Upon transfer the patient was immediately out evaluated and noted to be in significant respiratory distress, oral airway significantly edematous tongue protruding out of mouth Mallampati unobtainable upon evaluation. The patient appeared to be alert and could not yes and no to questions unable to speak. Quick assessment of CT scans that were previously done of the neck showed a large tumor mass crossing midline. Dr. Cabello , Anesthesiologist in to evaluate patient at bedside discussed case with him. Emergency airway equipment placed at bedside trauma surgery was notified I spoke with Dr. Rangel, patient emergently scheduled for tracheostomy to secure airway. A left radial A-line was placed ABG on 100% nonrebreather was obtained prior to going PaO2 had risen to 60 on nonrebreather mask. 12/21: No acute events overnight. The patient underwent emergency tracheostomy to secure the airway last evening. Norepinephrine and fentanyl infusions have been discontinued this morning patient has been transitioned onto CPAP trials and denies any discomfort. Patient is communicating with board and marker. PEG tube in situ tube feedings Glucerna currently at 30 cc/an hour continue to be advanced to goal. FiO2 has been decreased to .45% 12/22: No acute events overnight. The patient was maintained on CPAP trials throughout the night and this afternoon plan trach collar trials this afternoon PT OT has been initiated. Patient tolerating tube feeds no residuals. 12/23: Patient progressing well currently on trach collar trials greater than 24 hours. Patient tolerating tube feeds diet. Chemotherapy initiated yesterday. Patient denies pain. 12/24: Late entry note patient seen at 11:40 AM. Overnight the patient became agitated pulling off lines and tubes. Patient had previous stated that he has an anxiety disorder ,Xanax was ordered however not given. Upon my evaluation this a.m. O2 saturation noted to be low patient placed on FiO2 of 80% stat ABG was performed to reveal hypoxemia the patient was placed back on CPAP stat chest x-ray was performed which showed worsening airspace disease in the bases. 12/25: Patient noted with episodes of nausea, tube feeds held. Zofran given for nausea. The patient continues to have increased FiO2 requirements the patient is being placed on trach collar during the day CPAP at night. 7: Vitals not documented. Currently on CPAP 10/5 and 40%. No bowel movements documented. Not on a bowel regimen. 12/27: Remains on mechanical ventilation via tracheostomy. On CPAP trials. 12/28: no changes. still with cpap trials. 12/29: tolerating t-piece trials. rested on cpap overnight. complaints of continued pain around tumor site, as well as significant secretions. 12/30: clinically doing well. denies complaints. asked that speech re-evaluate him because he would like to start eating real food again. plan for XRT to start today. 12/31: On mechanical ventilation via trach. Tolerating T piece trials 01/01: Remains on mechanical ventilation via trach. 01/02: On T-piece. Awaiting radiation today. 7-10 No overnight events, still has a lot of secretions. Denies worsening of shortness of breath. 7-11 No overnight events, secretions going down, no fever. Shortness of breath is at baseline. 7-12 remains on t-piece with oxygen has lots of secretions tolerating tube feeds DW RN AND PT AM LABS PT AND OT 7- to have CHEMO TODAY DW RN AND PT STILL SOB STILL LOTS OF SECRETIONS TOLERATING TUBE FEEDS AM LABS Physical Exam Vital signs: Vital Signs 01/05/18 11:00 01/05/18 12:00 01/05/18 13:00 Temperature 97.9 F Pulse Rate 76 77 77 Respiratory Rate 16 Blood Pressure 121/63 Pulse Oximetry 100 01/05/18 15:00 01/05/18 16:00 01/05/18 17:00 Temperature 97.6 F Pulse Rate 82 86 78 Respiratory Rate 17 Blood Pressure 122/69 Pulse Oximetry 100 01/05/18 19:00 01/05/18 20:00 01/05/18 21:00 Temperature 99.2 F Pulse Rate 91 H 91 H 83 Respiratory Rate 25 H Blood Pressure 153/85 H Pulse Oximetry 92 L 01/05/18 23:00 01/06/18 00:00 01/06/18 01:00 Temperature 99.0 F Pulse Rate 79 79 82 Respiratory Rate 14 Blood Pressure 125/66 Pulse Oximetry 100 01/06/18 01:18 01/06/18 03:00 01/06/18 04:00 Temperature 98.8 F Pulse Rate 90 81 Respiratory Rate 19 Blood Pressure 123/58 L Pulse Oximetry 94 L 95 01/06/18 05:00 01/06/18 07:00 01/06/18 08:00 Temperature 98.5 F Pulse Rate 85 79 80 Respiratory Rate 15 Blood Pressure 101/50 L Pulse Oximetry 97 92 L 01/06/18 09:00 Temperature Pulse Rate 78 Respiratory Rate Blood Pressure Pulse Oximetry Intake & Output 01/05/18 01/06/18 01/06/18 18:59 06:59 18:59 Intake Total 1438 / 1438 1758 / 1758 Output Total 450 / 450 400 / 400 Balance 988 / 988 1358 / 1358 Weight 61.5 kg Intake: IV 1000 / 1000 1000 / 1000 NS Inj 1,000 ML @ 84 mls/hr IV. 1000 / 1000 1000 / 1000 CONT .[id number] [facility] Rx#:[id number] Tube Feeding 438 / 438 558 / 558 Tube Irrigant 200 / 200 Output: Urine 450 / 450 400 / 400 Other: Date of Last Bowel Movement 01/05/18 01/06/18 01/06/18 # Bowel Movements 3 5 Narrative: GENERAL: IN NO ACUTE DISTRESS AWAKE ALERT AND ORIENTED X3 COOPERATIVE SKIN: Warm and dry. HEAD: Atraumatic. Normocephalic. E EYES: Pupils equal and round. No scleral icterus. No injection or drainage. ENT: No nasal bleeding or discharge. Mucous membranes pink and moist. TONGUE STILL VERY EDEMATOUS PROTRUDING FROM MOUTH NECK: Trachea midline. No JVD. TRACHEOSTOMY RIGHT SIDE NECK MASS CARDIOVASCULAR: Regular rate and rhythm.S1, S2 NO S3 OR S4 [id number] IN PLACE RESPIRATORY: No accessory muscle use. Clear to auscultation. Breath sounds equal bilaterally. FEW SCATTERED RHONCHI GASTROINTESTINAL: Abdomen soft, non-tender, nondistended. Hepatic and splenic margins not palpable. MUSCULOSKELETAL: Extremities without clubbing, cyanosis, or edema. No obvious deformities. NEUROLOGICAL: Awake and alert. No obvious cranial nerve deficits. Motor grossly within normal limits. Five out of 5 muscle strength in the arms and legs. Normal speech. PSYCHIATRIC: Appropriate mood and affect; insight and judgment normal. - Urinary Catheter Management Indwelling Urethral Catheter Cath placed during this visit: yes, but has since been removed by the nurse Reason for continuing: Not indwelling catheter Insertion date: 12/20/17 Insertion time: 00:00 Removal date: 01/02/18 Removal time: 07:00 Results - Labs CBC & Chem 7: 01/06/18 04:15 01/06/18 04:15 Laboratory Results - last 24 hr 01/05/18 01/05/18 01/05/18 13:59 17:06 23:25 WBC RBC Hgb Hct MCV MCH MCHC RDW Plt Count MPV Prelim Diff (Auto) Neut % (Auto) Lymph % (Auto) Weston % (Auto) Eos % (Auto) Baso % (Auto) Neut # (Auto) Lymph # (Auto) Weston # (Auto) Eos # (Auto) Baso # (Auto) WBC Differential Diff Scan Differential Comment Sodium Potassium Chloride Carbon Dioxide Anion Gap BUN Creatinine Estimated GFR POC Glucose 141 H 170 H 114 H Random Glucose Calcium Phosphorus Magnesium Total Bilirubin AST ALT Alkaline Phosphatase Total Protein Albumin TSH Free T4 01/06/18 01/06/18 01/06/18 04:15 04:15 05:49 WBC 21.8 H RBC 3.73 L Hgb 11.0 L Hct 33.2 L MCV 89.1 MCH 29.5 MCHC 33.2 RDW 15.2 Plt Count 421 MPV 8.8 Prelim Diff (Auto) Slide review pending Neut % (Auto) 77.3 H Lymph % (Auto) 8.9 L Weston % (Auto) 12.2 H Eos % (Auto) 1.0 Baso % (Auto) 0.6 Neut # (Auto) 16.9 H Lymph # (Auto) 1.9 Weston # (Auto) 2.7 H Eos # (Auto) 0.2 Baso # (Auto) 0.1 WBC Differential . Diff Scan Auto diff confirmed Differential Comment . Sodium 132 L Potassium 4.2 Chloride 95 L Carbon Dioxide 27.6 Anion Gap 9 BUN 12 Creatinine 0.21 L Estimated GFR Greater than 89 POC Glucose 185 H Random Glucose 167 H Calcium 8.6 Phosphorus 3.5 Magnesium 1.8 Total Bilirubin 0.4 AST 14 L ALT 11 L Alkaline Phosphatase 104 Total Protein 6.3 L Albumin 2.7 L TSH 1.450 Free T4 1.27 - Imaging ITS Impressions Chest X-Ray 12/25/17 06:00 CONCLUSION: Support apparatus unchanged. Stable basilar airspace disease and trace pleural fluid. Chest X-Ray 12/27/17 00:01 CONCLUSION: Persistent nonconsolidative airspace infiltrates in the left lower lung. - Procedures SP TRACH AND PEG Assessment and Plan - Plan This is a 62-year-old male with past medical history of right tonsil and cancer , squamous cell carcinoma moderately differentiated, presented emergency department complaining of pain in the neck and unable to eat or drink associated with cough, found to have a large tumor involving the tongue in the right side of the pharynx with necrotic right cervical lymphadenopathy. 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 Hypoxic respiratory failure, COPD exacerbation, head and neck cancer, lung mass with airway compromise-status post emergent tracheostomy 12/20/2017, presently on trach collar, continue Symbicort, Combivent, T-piece as tolerated. Pulmonary following. Levsin increase, secretions are better. On scopolamine. Head and neck cancer, squamous cell carcinoma right tonsil-hematology oncology following for chemotherapy, preparing for XRT. Continue pain control. Continue narcotics, gabapentin, tizanidine and Tylenol. Febrile illness with leukocytosis-ruled out sepsis, Levaquin and Flagyl discontinued. Leukocytosis could be from tumor necrosis plus steroids per infectious disease and hematology, stable. Chest x-ray improved. Observe off antibiotics. Nutrition-status post PEG placement 12/19/2017, continue Glucerna 1.5 at 65 cc/h with free water every 8 hours 200 cc. Hyperglycemia-continue sliding-scale insulin, hemoglobin A1c is 6.3, BG's 180s- 250s, will start low-dose Levemir. Hyponatremia-mild, start normal saline- MONITOR AM LABS Prophylaxis: Lansoprazole, SCDs, Lovenox. Code Status: FULL CODE Discussed Condition With: RN AND PT AND CM Discharge Planning: PENDING CLEARANCE BY ALL
--- NOTE | 2018-01-06 10:05 | P.PNONC ---
Subjective Interval history: Afebrile. Patient is lying in bed, riding on his notepad. In no acute distress. He has no new complaints at this time, he is ready for his chemotherapy today. Objective Vital Signs/Intake & Output: Vital Signs 01/05/18 11:00 01/05/18 12:00 01/05/18 13:00 Temperature 97.9 F Pulse Rate 76 77 77 Respiratory Rate 16 Blood Pressure 121/63 Pulse Oximetry 100 01/05/18 15:00 01/05/18 16:00 01/05/18 17:00 Temperature 97.6 F Pulse Rate 82 86 78 Respiratory Rate 17 Blood Pressure 122/69 Pulse Oximetry 100 01/05/18 19:00 01/05/18 20:00 01/05/18 21:00 Temperature 99.2 F Pulse Rate 91 H 91 H 83 Respiratory Rate 25 H Blood Pressure 153/85 H Pulse Oximetry 92 L 01/05/18 23:00 01/06/18 00:00 01/06/18 01:00 Temperature 99.0 F Pulse Rate 79 79 82 Respiratory Rate 14 Blood Pressure 125/66 Pulse Oximetry 100 01/06/18 01:18 01/06/18 03:00 01/06/18 04:00 Temperature 98.8 F Pulse Rate 90 81 Respiratory Rate 19 Blood Pressure 123/58 L Pulse Oximetry 94 L 95 01/06/18 05:00 01/06/18 07:00 01/06/18 08:00 Temperature 98.5 F Pulse Rate 85 79 80 Respiratory Rate 15 Blood Pressure 101/50 L Pulse Oximetry 97 92 L 01/06/18 09:00 Temperature Pulse Rate 78 Respiratory Rate Blood Pressure Pulse Oximetry Intake & Output 01/05/18 01/06/18 01/06/18 18:59 06:59 18:59 Intake Total 1438 / 1438 1758 / 1758 Output Total 450 / 450 400 / 400 Balance 988 / 988 1358 / 1358 Weight 61.5 kg Intake: IV 1000 / 1000 1000 / 1000 NS Inj 1,000 ML @ 84 mls/hr IV. 1000 / 1000 1000 / 1000 CONT .[id number] [facility] Rx#:[id number] Tube Feeding 438 / 438 558 / 558 Tube Irrigant 200 / 200 Output: Urine 450 / 450 400 / 400 Other: Date of Last Bowel Movement 01/05/18 01/06/1801/06/18 # Bowel Movements 3 5 Result Diagrams: 01/06/18 04:15 01/06/18 04:15 Laboratory Results: Laboratory Results - last 24 hr 01/05/18 01/05/18 01/05/18 13:59 17:06 23:25 WBC RBC Hgb Hct MCV MCH MCHC RDW Plt Count MPV Prelim Diff (Auto) Neut % (Auto) Lymph % (Auto) [place] % (Auto) Eos % (Auto) Baso % (Auto) Neut # (Auto) Lymph # (Auto) [place] # (Auto) Eos # (Auto) Baso # (Auto) WBC Differential Diff Scan Differential Comment Sodium Potassium Chloride Carbon Dioxide Anion Gap BUN Creatinine Estimated GFR POC Glucose 141 H 170 H 114 H Random Glucose Calcium Phosphorus Magnesium Total Bilirubin AST ALT Alkaline Phosphatase Total Protein Albumin TSH Free T4 01/06/18 01/06/18 01/06/18 04:15 04:15 05:49 WBC 21.8 H RBC 3.73 L Hgb 11.0 L Hct 33.2 L MCV 89.1 MCH 29.5 MCHC 33.2 RDW 15.2 Plt Count 421 MPV 8.8 Prelim Diff (Auto) Slide review pending Neut % (Auto) 77.3 H Lymph % (Auto) 8.9 L [place] % (Auto) 12.2 H Eos % (Auto) 1.0 Baso % (Auto) 0.6 Neut # (Auto) 16.9 H Lymph # (Auto) 1.9 [place] # (Auto) 2.7 H Eos # (Auto) 0.2 Baso # (Auto) 0.1 WBC Differential . Diff Scan Auto diff confirmed Differential Comment . Sodium 132 L Potassium 4.2 Chloride 95 L Carbon Dioxide 27.6 Anion Gap 9 BUN 12 Creatinine 0.21 L Estimated GFR Greater than 89 POC Glucose 185 H Random Glucose 167 H Calcium 8.6 Phosphorus 3.5 Magnesium 1.8 Total Bilirubin 0.4 AST 14 L ALT 11 L Alkaline Phosphatase 104 Total Protein 6.3 L Albumin 2.7 L TSH 1.450 Free T4 1.27 Medications: Active Medications Generic Name Dose Route Start Last Admin Trade Name Freq PRN Reason Stop Dose Admin Acetaminophen 650 mg 12/25/17 00:01 12/27/17 14:26 Tylenol PO 650 mg Q6H PRN Administration FEVER/PAIN SCALE 1 to 2 Albuterol 2.5 mg 12/26/17 16:04 01/02/18 04:06 Albuterol Neb (Prn) NEB 2.5 mg Q2HR NEB PRN Administration DYSPNEA Alprazolam 0.5 mg 12/25/17 00:01 12/28/17 14:13 Xanax G-TUBE 0.5 mg Q6H PRN Administration Anxiety/Agitation Artificial Tears 1 drop 12/26/17 17:00 01/06/18 09:50 Tears Naturale Opth Drops EACH EYE Not Given Q8H [facility] Budesonide/Formoterol Fumarate 2 puff 12/25/17 09:00 01/06/18 09:50 Symbicort 160/4.5 Mcg Inh INH 2 puff BID BR[facility] Administration Chlorhexidine Gluconate 15 ml 12/25/17 09:00 01/06/18 09:49 Peridex 0.12% Liq SWISH-SPIT 15 ml BID [facility] Administration Docusate Sodium 100 mg 12/26/17 21:00 01/06/18 09:49 Colace Liq G-TUBE Not Given BID [facility] Enoxaparin Sodium 40 mg 01/04/18 12:00 01/05/18 13:00 Lovenox Inj SQ 40 mg Q24H [facility] Administration Gabapentin 300 mg 12/29/17 08:15 01/06/18 09:49 Neurontin Liq PO Not Given Q8HR [facility] Hyoscyamine 0.25 mg 01/03/18 18:00 01/06/18 05:50 Levsin PO 0.25 mg Q6HR [facility] Administration Sodium Chloride 1,000 mls @ 84 mls/hr 01/04/18 13:30 01/06/18 02:10 Ns Inj IV.CONT 84 mls/hr .[id number] [facility] Administration Insulin Aspart 0 unit 12/26/17 18:00 01/06/18 05:57 Novolog Insulin Suppl Scale Inj SQ 2 unit Q6HR [facility] Administration Protocol Insulin Detemir 6 unit 01/04/18 21:00 01/05/18 21:10 Levemir Inj SQ 6 unit HS [facility] Administration Lansoprazole 30 mg 12/27/17 09:00 01/06/18 09:48 Prevacid Solutab NG/OG 30 mg DAILY [facility] Administration Morphine Sulfate 2 mg 12/28/17 08:36 01/06/18 09:48 Morphine Inj IV.PUSH 2 mg Q2H PRN Administration PAIN SCALE 5-10/SEVERE COUGH Ondansetron HCl 4 mg 12/25/17 17:35 12/31/17 17:30 Zofran Odt PO 4 mg Q6H PRN Administration NAUSEA OR VOMITING Ondansetron HCl 4 mg 01/01/18 20:02 01/02/18 06:38 Zofran Inj IV.PUSH 4 mg Q6H PRN Administration NAUSEA Oxycodone HCl 10 mg 12/25/17 00:01 01/06/18 09:47 Roxicodone PO 10 mg Q4H PRN Administration Pain Scale 3 to 5 Patch Removal 1 each 01/04/18 20:00 01/04/18 21:19 Remove Old Patch T-DERMAL Not Given Q72H [facility] Scopolamine 1 patch 01/04/18 20:00 01/04/18 21:18 Transderm-Scop 1.5 Mg Patch.72hr T-DERMAL 1 patch Q72H [facility] Administration Sodium Chloride 2 ml 12/25/17 09:00 01/06/18 09:48 Ns Flush IV.FLUSH 2 ml BID [facility] Administration Sterile Water 200 ml 12/25/17 06:00 01/06/18 09:49 Free Water G-TUBE Not Given Q8HR [facility] Temazepam 15 mg 12/25/17 18:35 01/04/18 02:49 Restoril NG/OG 15 mg HS PRN Administration INSOMNIA Tizanidine HCl 4 mg 12/29/17 09:00 01/06/18 09:47 Zanaflex PO 4 mg Q12HR [facility] Administration Objective Remarks: GENERAL: Chronically ill appearing middle aged male, lying in bed writing in his notepad, in no acute distress. SKIN: Warm and dry. HEAD: Normocephalic. Oral tongue protrusion, dry. EYES: No scleral icterus. No injection or drainage. NECK: Supple, tracheostomy in place. +large right neck mass. CARDIOVASCULAR: Normal S1/S2. Regular rate and rhythm RESPIRATORY: Anterior breath sounds clear, equal bilaterally. No accessory muscle use. GASTROINTESTINAL: Abdomen soft, flat, tender, nondistended. PEG tube in place LUQ. EXTREMITIES: No cyanosis or edema. NEUROLOGICAL: Alert and oriented. Follows commands, nods his head and writes on tablet. 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 A delay in his treatment coordinated by the [facility] resulted in his presentation to this hospital with a symptomatic large right neck and base of tongue/tonsil mass. s/p first dose of chemotherapy with carbo/taxol 12/22, second cycle was 12/29, chemo scheduled for today 01/06/18. Plan: 1. Proceed with radiation when treatment planning is complete. 2. Palliative chemotherapy today. Spoke with chemotherapy nurse, pharmacy has received chemotherapy orders and is preparing the dose. We will monitor CBC and CMP. 3. Continue supportive care. Appreciate palliative care consult. 4. Continue pain management. 5. Spoke with Lorraine from case management, she is working on possible SNF placement, and would appreciate the radiation plan/schedule when available. - Attending Statement The exam, history, and the medical decision-making described in the above note were completed with the assistance of the mid-level provider. I reviewed and agree with the findings presented. I attest that I had a [id number] encounter with the patient on the same day, and personally performed and documented my assessment and findings in the medical record. Patient received his palliative chemotherapy week 3 today. States that he is good with current pain regimen. Noted that he required only 2 breakthrough IV morphine and Roxanol. He is aware to decline the scheduled morphine via his PEG if he is not in pain. He is expressing concern about dependency and addiction to the pain medication. We have discussed adding methadone. He is reluctant at present. We will readdress tomorrow along with the supportive palliative care to start a long-acting.
[2018-01-06] MEDS ORDERED: Famotidine PF Inj 20 MG/2 ML Vial IV.PUSH ONE (13:00)
[2018-01-06] MEDS ORDERED: Dexamethasone Inj 20 MG in Sodium Chlor 0.9% Inj 50 ML IV.SIG ONE (13:00)
[2018-01-06] MEDS ORDERED: Granisetron 1 MG/ML Vial IV.PUSH ONE (13:00)
[2018-01-06] MEDS: Enoxaparin Inj 40 MG/0.4 ML Syringe SQ SCH (13:31)
[2018-01-06] MEDS ORDERED: PACLITAXEL IV.SIG ONE (14:00)
[2018-01-06] MEDS ORDERED: SODIUM CHLOR 0.9% IV.SIG ONE ×2 (14:00→15:00)
--- NOTE | 2018-01-06 14:06 | P.PNPAL ---
Reason for Visit Reason for visit: a. To assist with evaluation and management of symptoms including: pain, dyspnea, anxiety, nausea b. To assist medical decision maker(s) with: better understanding of current medical conditions; weighing benefits/burdens of medical treatment options; making medical treatment decisions. Subjective Subjective/Interval History: Dual visit with VARUN Rollins. Pt is awake and alert. 3rd dose chemo planned shortly. Radiation treatment planning is in progress. He admits feeling somewhat short of breath but indicates that it does not hurt to breathe. Gently probed code status. Pt seemed ambivalent regarding code status and did not indicate either way what he would want; we explained that by default he would be full code. He showed no signs of disagreement. He reiterated that he does not want us to update his family. He indicates that his pain is controlled better than yesterday and rates it a 3. At it's highest he rates pain 9. Denies n/v. TF running. Advance Directives Health Care Surrogate Name and Number: primary [facility] Jai Dolan; secondary Dianna [place] Objective Vital Signs: Vital Signs 01/05/18 15:00 01/05/18 16:00 01/05/18 17:00 Temperature 97.6 F Pulse Rate 82 86 78 Respiratory Rate 17 Blood Pressure 122/69 Pulse Oximetry 100 01/05/18 19:00 01/05/18 20:00 01/05/18 21:00 Temperature 99.2 F Pulse Rate 91 H 91 H 83 Respiratory Rate 25 H Blood Pressure 153/85 H Pulse Oximetry 92 L 01/05/18 23:00 01/06/18 00:00 01/06/18 01:00 Temperature 99.0 F Pulse Rate 79 79 82 Respiratory Rate 14 Blood Pressure 125/66 Pulse Oximetry 100 01/06/18 01:18 01/06/18 03:00 01/06/18 04:00 Temperature 98.8 F Pulse Rate 90 81 Respiratory Rate 19 Blood Pressure 123/58 L Pulse Oximetry 94 L 95 01/06/18 05:00 01/06/18 07:00 01/06/18 08:00 Temperature 98.5 F Pulse Rate 85 79 80 Respiratory Rate 15 Blood Pressure 101/50 L Pulse Oximetry 97 92 L 01/06/18 09:00 Temperature Pulse Rate 78 Respiratory Rate Blood Pressure Pulse Oximetry Intake & Output 01/05/18 01/06/18 01/06/18 18:59 06:59 18:59 Intake Total 1438 / 1438 1758 / 1758 1000 / 1000 Output Total 450 / 450 400 / 400 Balance 988 / 988 1358 / 1358 1000 / 1000 Weight 61.5 kg Intake: IV 1000 / 1000 1000 / 1000 1000 / 1000 NS Inj 1,000 ML @ 84 mls/hr IV. 1000 / 1000 1000 / 1000 1000 / 1000 CONT .[id number] [facility] Rx#:[id number] Tube Feeding 438 / 438 558 / 558 Tube Irrigant 200 / 200 Output: Urine 450 / 450 400 / 400 Other: Date of Last Bowel Movement 01/05/18 01/06/18 01/06/18 # Bowel Movements 3 5 Physical Exam: PT refused physical exam. Assessment limited to inspection. CONSTITUTIONAL/GENERAL: mildly cachectic TUBES/LINES/DRAINS: port, trach to t-piece SKIN: sallow complexion No wounds seen anteriorly other than face. Not diaphoretic. HEAD: Atraumatic. Disfigured right face and neck EYES: Pupils equal and round and reactive. Extraocular motions intact. No scleral icterus. No injection or drainage. Fundi not examined. ENT: Hearing grossly normal. Nose without bleeding or purulent drainage. large mass right cheek extending down to neck, tongue protruding. NECK: mass right side. RESPIRATORY/CHEST: respirations unlabored GASTROINTESTINAL: Abdomen nondistended. MUSCULOSKELETAL: Extremities without clubbing, cyanosis, mottling NEUROLOGICAL: Awake and alert. Oriented. Moves all extremities. PSYCHIATRIC: flat affect, irritable Diagnostic Tests Laboratory: Laboratory Results - last 72 hr 01/03/18 01/03/18 01/04/18 05:45 18:09 00:36 WBC RBC Hgb Hct MCV MCH MCHC RDW Plt Count MPV Prelim Diff (Auto) Neut % (Auto) Lymph % (Auto) [place] % (Auto) Eos % (Auto) Baso % (Auto) Neut # (Auto) Lymph # (Auto) [place] # (Auto) Eos # (Auto) Baso # (Auto) WBC Differential Diff Scan Differential Comment Sodium Potassium Chloride Carbon Dioxide Anion Gap BUN Creatinine Estimated GFR POC Glucose 187 H 211 H Random Glucose Hemoglobin A1c 6.3 H Calcium Phosphorus Magnesium Total Bilirubin AST ALT Alkaline Phosphatase Total Protein Albumin TSH Free T4 01/04/18 01/04/18 01/04/18 04:00 04:00 16:06 WBC 21.1 H RBC 3.87 L Hgb 11.2 L Hct 34.0 L MCV 87.9 MCH 29.0 MCHC 33.0 RDW 15.1 Plt Count 450 MPV 8.3 Prelim Diff (Auto) Neut % (Auto) Lymph % (Auto) [place] % (Auto) Eos % (Auto) Baso % (Auto) Neut # (Auto) Lymph # (Auto) [place] # (Auto) Eos # (Auto) Baso # (Auto) WBC Differential Diff Scan Differential Comment Sodium 132 L Potassium 4.5 Chloride 92 L Carbon Dioxide 32.0 Anion Gap 8 BUN 18 Creatinine 0.31 L Estimated GFR Greater than 89 POC Glucose 215 H Random Glucose 86 D Hemoglobin A1c Calcium 9.1 Phosphorus Magnesium Total Bilirubin AST ALT Alkaline Phosphatase Total Protein Albumin TSH Free T4 01/05/18 01/05/18 01/05/18 00:30 06:13 13:59 WBC RBC Hgb Hct MCV MCH MCHC RDW Plt Count MPV Prelim Diff (Auto) Neut % (Auto) Lymph % (Auto) [place] % (Auto) Eos % (Auto) Baso % (Auto) Neut # (Auto) Lymph # (Auto) [place] # (Auto) Eos # (Auto) Baso # (Auto) WBC Differential Diff Scan Differential Comment Sodium Potassium Chloride Carbon Dioxide Anion Gap BUN Creatinine Estimated GFR POC Glucose 161 H 197 H 141 H Random Glucose Hemoglobin A1c Calcium Phosphorus Magnesium Total Bilirubin AST ALT Alkaline Phosphatase Total Protein Albumin TSH Free T4 01/05/18 01/05/18 01/06/18 17:06 23:25 04:15 WBC 21.8 H RBC 3.73 L Hgb 11.0 L Hct 33.2 L MCV 89.1 MCH 29.5 MCHC 33.2 RDW 15.2 Plt Count 421 MPV 8.8 Prelim Diff (Auto) Slide review pending Neut % (Auto) 77.3 H Lymph % (Auto) 8.9 L [place] % (Auto) 12.2 H Eos % (Auto) 1.0 Baso % (Auto) 0.6 Neut # (Auto) 16.9 H Lymph # (Auto) 1.9 [place] # (Auto) 2.7 H Eos # (Auto) 0.2 Baso # (Auto) 0.1 WBC Differential . Diff Scan Auto diff confirmed Differential Comment . Sodium Potassium Chloride Carbon Dioxide Anion Gap BUN Creatinine Estimated GFR POC Glucose 170 H 114 H Random Glucose Hemoglobin A1c Calcium Phosphorus Magnesium Total Bilirubin AST ALT Alkaline Phosphatase Total Protein Albumin TSH Free T4 01/06/18 01/06/18 01/06/18 04:15 05:49 13:19 WBC RBC Hgb Hct MCV MCH MCHC RDW Plt Count MPV Prelim Diff (Auto) Neut % (Auto) Lymph % (Auto) [place] % (Auto) Eos % (Auto) Baso % (Auto) Neut # (Auto) Lymph # (Auto) [place] # (Auto) Eos # (Auto) Baso # (Auto) WBC Differential Diff Scan Differential Comment Sodium 132 L Potassium 4.2 Chloride 95 L Carbon Dioxide 27.6 Anion Gap 9 BUN 12 Creatinine 0.21 L Estimated GFR Greater than 89 POC Glucose 185 H 134 H Random Glucose 167 H Hemoglobin A1c Calcium 8.6 Phosphorus 3.5 Magnesium 1.8 Total Bilirubin 0.4 AST 14 L ALT 11 L Alkaline Phosphatase 104 Total Protein 6.3 L Albumin 2.7 L TSH 1.450 Free T4 1.27 Result Diagrams: 01/06/18 04:15 01/06/18 04:15 Procedures: 12/19 g tube placement by IR 12/20 emergency tracheostomy 12/22 chemotherapy initiated 12/29 2nd dose chemo Assessment and Plan - Disease Oriented Problem List (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 Per EMR has daughter Dianna and "friend" Jai. He is an [employer] . Spiritual: declined air chipper support Legal: Pt is currently capacitated to make decisions however communication is difficult. Should he become incapacitate, he designated Jai and Dianna Dolan as HCS. He asks that his HCS not be contacted or updated currently. Ethical issues impacting care: none at this time Important Contacts: daughter Dianna Dolan [phone] "friend" Jai Dolan home [phone], cell [phone] Prognosis: This is a 62 yo male with COPD, DM, hx etoh & tobacco use, > 40 pack years diagnosed with head and neck cancer. He also has a lung mass which has yet to be biopsied. He has lost 30 lbs in the last 6 months and now requires tube feedings. Has tracheostomy for breathing b/c mass has encroached on his airway. He has started palliative chemotherapy which thus far is only transiently effective at shrinking tumor. It is planned that he begin radiation to his tumor. It is unclear a this time how effective chemotherapy and radiation will be. Given his underlying COPD and lung mass, his prognosis is guarded at best. He is at significant risk for complications and further decline. Code Status: Full Code Plan: - LEGAL DECISON MAKER - pt with trach and communication is difficult but he is alert, oriented, and appropriate, capacitated to make decisions. Should he become incapacitated, he designated Jai Dolan as primary and Dianna Dolan as secondary HCS. He asks that his HCS not be contacted or updated currently. - CODE STATUS- FULL CODE - GOALS - aggressive - SYMPTOMS - * pain - 2/2 tumor, lines, tracheostomy. rated his pain 3/10 today and indicated that at its worst his pain is 8/10. he refused to further quantify or qualify symptoms. Has gabapentin 300mg q8h but refusing. Morphine 2mg IV q2h PRN pain 5-10, last had today 06; scheduled roxanol 5mg q4h, PRn oxycodone 10mg q4h pain 3-5. Appears in the last 24h he has had 2mg IV morphine 10 mg roxicodone in the last 24 hours. recommend starting low dose methadone 2.5mg q12h with no adjustments for 3-4 days to monitor for effectiveness. Continue other PRNs He is on telemetry for monitoring of QT interval. * dyspnea, secretions- 2/2 compromised airway. Has tracheostomy. Denies feeling SOB but indicates his secretions bother him. Unlikely this could improve. Per RN he requires frequent suctioning. On scheduled symbicort, prn michael vasquez. Recommend instructing him on use of Yankauer. * anxiety - multifactorial. flat affect, ambivalent, irritible. could be component of depression/anxiety. has 0.5 mg q6h PRN, last had 12/28, temazepam 15mg HS prn insomnia, which he is requesting per AUG. Although won't help in short term, could consider SSRI for longer term tx * nausea - multifactorial, undergoing chemo. denies n/v. Has promethazine 25mg IM PRN breakthrough nausea, scopolamine patch, reglan 10mg q6h PRN, both PO and IV zofran PRN. Does not appear he has been needing these. - Palliative care will continue to follow during hospital course as condition evolves, to assist patient/decision-maker with understanding of medical conditions, weighing benefits/burdens of treatment options, for clarification of goals of treatment. Additionally will assist with any symptoms of palliative concern
[2018-01-06] MEDS ORDERED: CARBOPLATIN IV.SIG ONE (15:00)
[2018-01-06 17:26] LABS: Hemoglobin A1c 6.2 % (4.3-6.0)
--- NOTE | 2018-01-06 18:13 | P.PNPL ---
Subjective Interval history: 62 YO WM wit H&N CA,RF, Trach ON PSV, trach collar Tolerates TF Awake, follows commands Has lot of trach secretions, not bloody today Had Chemo Physical Exam Vital signs: Vital Signs 01/05/18 19:00 01/05/18 20:00 01/05/18 21:00 Temperature 99.2 F Pulse Rate 91 H 91 H 83 Respiratory Rate 25 H Blood Pressure 153/85 H Pulse Oximetry 92 L 01/05/18 23:00 01/06/18 00:00 01/06/18 01:00 Temperature 99.0 F Pulse Rate 79 79 82 Respiratory Rate 14 Blood Pressure 125/66 Pulse Oximetry 100 01/06/18 01:18 01/06/18 03:00 01/06/18 04:00 Temperature 98.8 F Pulse Rate 90 81 Respiratory Rate 19 Blood Pressure 123/58 L Pulse Oximetry 94 L 95 01/06/18 05:00 01/06/18 07:00 01/06/18 08:00 Temperature 98.5 F Pulse Rate 85 79 80 Respiratory Rate 15 Blood Pressure 101/50 L Pulse Oximetry 97 92 L 01/06/18 09:00 01/06/18 11:00 01/06/18 12:00 Temperature 98.2 F Pulse Rate 78 72 80 Respiratory Rate 16 Blood Pressure 132/68 Pulse Oximetry 92 L 01/06/18 13:00 01/06/18 14:45 01/06/18 16:00 Temperature 98.9 F Pulse Rate 83 81 93 H Respiratory Rate 16 Blood Pressure 147/73 H Pulse Oximetry 01/06/18 16:32 Temperature Pulse Rate 96 H Respiratory Rate Blood Pressure Pulse Oximetry Intake & Output 01/05/18 01/06/18 01/06/18 18:59 06:59 18:59 Intake Total 1438 / 1438 1758 / 1758 1543.1 / 1543.1 Output Total 450 / 450 400 / 400 Balance 988 / 988 1358 / 1358 1543.1 / 1543.1 Weight 61.5 kg Intake: IV 1000 / 1000 1000 / 1000 1543.1 / 1543.1 NS Inj 1,000 ML @ 84 mls/hr IV. 1000 / 1000 1000 / 1000 1000 / 1000 CONT .[id number] [facility] Rx#:[id number] Paraplatin Inj 300 MG In NS Inj 280 / 280 250 ML @ 560 mls/hr IV.SIG ONCE ONE Rx#:[id number] Taxol Inj 78.75 MG In NS Inj 263.1 / 263.1 250 ML @ 263.125 mls/hr IV.SIG ONCE ONE Rx#:[id number] Tube Feeding 438 / 438 558 / 558 Tube Irrigant 200 / 200 Output: Urine 450 / 450 400 / 400 Other: Date of Last Bowel Movement 01/05/18 01/06/18 01/06/18 # Bowel Movements 3 5 GENERAL: MBMN WM mild sob SKIN: Warm and dry. HEAD: Normocephalic. EYES: No scleral icterus. No injection or drainage. NECK: Supple, trachea midline. No JVD or lymphadenopathy. has trach, neck mass CARDIOVASCULAR: Regular rate and rhythm without murmurs, gallops, or rubs. RESPIRATORY: Breath sounds equal bilaterally. No accessory muscle use. GASTROINTESTINAL: Abdomen soft, non-tender, nondistended. has PEG MUSCULOSKELETAL: No cyanosis, or edema. BACK: Nontender without obvious deformity. No CVA tenderness. Narrative: GENERAL: IN NO ACUTE DISTRESS AWAKE ALERT AND ORIENTED X3 COOPERATIVE SKIN: Warm and dry. HEAD: Atraumatic. Normocephalic. E EYES: Pupils equal and round. No scleral icterus. No injection or drainage. ENT: No nasal bleeding or discharge. Mucous membranes pink and moist. TONGUE STILL VERY EDEMATOUS PROTRUDING FROM MOUTH NECK: Trachea midline. No JVD. TRACHEOSTOMY RIGHT SIDE NECK MASS CARDIOVASCULAR: Regular rate and rhythm.S1, S2 NO S3 OR S4 [id number] IN PLACE RESPIRATORY: No accessory muscle use. Clear to auscultation. Breath sounds equal bilaterally. FEW SCATTERED RHONCHI GASTROINTESTINAL: Abdomen soft, non-tender, nondistended. Hepatic and splenic margins not palpable. MUSCULOSKELETAL: Extremities without clubbing, cyanosis, or edema. No obvious deformities. NEUROLOGICAL: Awake and alert. No obvious cranial nerve deficits. Motor grossly within normal limits. Five out of 5 muscle strength in the arms and legs. Normal speech. PSYCHIATRIC: Appropriate mood and affect; insight and judgment normal. - Urinary Catheter Management Indwelling Urethral Catheter Cath placed during this visit: yes, but has since been removed by the nurse Reason for continuing: Not indwelling catheter Insertion date: 12/20/17 Insertion time: 00:00 Removal date: 01/02/18 Removal time: 07:00 Assessment and Plan - Plan Resp failure S/P Emergent trach Neck Mass H&N Ca COPD PLAN: trach collar Fio2 increased to 60% Aerosol nebs cont Abx Tube feeding Scopolamine patch q 72 hrs Chemo per oncology Radiation treatments next week
[2018-01-06] MEDS: Morphine Sulfate Oral Liq 10 MG/0.5 ML Syringe G-TUBE SCH ×2 (20:24→23:52)
[2018-01-06] MEDS: Insulin Detemir Inj 1,000 UNIT/10 ML Vial SQ SCH (20:26)
[2018-01-07] MEDS: Artificial Tears Opth Drops 15 ML Bottle EACH EYE SCH ×3 (01:23→16:51)
[2018-01-07] MEDS: Morphine Inj 4 MG/ML Vial IV.PUSH PRN ×2 (01:36→05:15)
[2018-01-07] MEDS: Morphine Sulfate Oral Liq 10 MG/0.5 ML Syringe G-TUBE SCH ×5 (04:20→21:09)
[2018-01-07] MEDS: Sod Chloride 0.9% Inj 1,000 ML IV.CONT SCH (04:21)
[2018-01-07] MEDS: Gabapentin Liq 250 MG/5 ML UDC PO SCH ×3 (05:15→21:12)
[2018-01-07] MEDS: Insulin NovoLOG Aspart Correctional Sugar Inj SQ SCH ×3 (05:15→17:26)
[2018-01-07 05:35] LABS: Baso % (Auto) 0.3 % (0.0-2.0); Hematocrit 32.5 % (39.0-51.0); Hemoglobin 10.6 gm/dL (13.0-17.0); Lymph # (Auto) 0.6 th/mm3 (1.0-4.8); Lymph % (Auto) 5.3 % (9.0-44.0); Mean Corpuscular HGB Conc 32.8 % (32.0-36.0); Mean Corpuscular Hemoglobin 29.3 pg (27.0-34.0); Mean Corpuscular Volume 89.4 fL (80.0-100.0); Mean Platelet Volume 8.9 fL (7.0-11.0); Mono # (Auto) 0.1 th/mm3 (0.0-0.9); Mono % (Auto) 0.7 % (0.0-8.0); Neut # (Auto) 10.8 th/mm3 (1.8-7.7); Neut % (Auto) 93.7 % (16.0-70.0); Platelet Count 416 th/mm3 (150-450); Red Blood Count 3.63 mil/mm3 (4.50-5.90); Red Cell Distribution Width 15.5 % (11.6-17.2); White Blood Count 11.5 th/mm3 (4.0-11.0)
[2018-01-07 06:26] LABS: Albumin 2.5 g/dL (3.4-5.0); Anion Gap 12 meq/L (5-15); Aspartate Aminotransferase 13 U/L (15-37); Blood Urea Nitrogen 14 mg/dL (7-18); Calcium 8.7 mg/dL (8.5-10.1); Carbon Dioxide 27.3 meq/L (21.0-32.0); Chloride 94 meq/L (98-107); Glomerular Filtration Rate Greater Than 89 mL/min (>89); Glucose,Random 180 mg/dL (74-106); Magnesium 2.1 mg/dL (1.5-2.5); Potassium 4.7 meq/L (3.5-5.1); Sodium 133 meq/L (136-145)
[2018-01-07 06:27] LABS: Alanine Aminotransferase 10 U/L (12-78); Phosphorus 3.5 mg/dL (2.5-4.9)
[2018-01-07 06:29] LABS: Alkaline Phosphatase 102 U/L (45-117); Total Protein 6.6 g/dL (6.4-8.2)
--- NOTE | 2018-01-07 09:49 | P.PNONC ---
Subjective Interval history: Afebrile Patient seems to be in better spirits than previously seen Emphasizing that he wants to walk Pain somewhat improved in the right neck Objective Vital Signs/Intake & Output: Vital Signs 01/06/18 11:00 01/06/18 12:00 01/06/18 13:00 Temperature 98.2 F Pulse Rate 72 80 83 Respiratory Rate 16 Blood Pressure 132/68 Pulse Oximetry 92 L 01/06/18 14:45 01/06/18 16:00 01/06/18 16:32 Temperature 98.9 F Pulse Rate 81 93 H 96 H Respiratory Rate 16 Blood Pressure 147/73 H Pulse Oximetry 01/06/18 18:00 01/06/18 20:00 01/06/18 20:56 Temperature 98.7 F Pulse Rate 88 104 H Respiratory Rate 23 Blood Pressure 135/70 Pulse Oximetry 92 L 95 01/06/18 22:00 01/07/18 00:00 01/07/18 01:35 Temperature 98.8 F Pulse Rate 94 H 83 Respiratory Rate 20 Blood Pressure 109/59 L Pulse Oximetry 94 L 95 01/07/18 02:00 01/07/18 04:00 01/07/18 06:00 Temperature 98.8 F Pulse Rate 83 88 78 Respiratory Rate 19 Blood Pressure 130/72 Pulse Oximetry 92 L Intake & Output 01/06/18 01/07/18 01/07/18 18:59 06:59 18:59 Intake Total 1963.1 / 1963.1 1603 / 1603 Output Total 800 / 800 1100 / 1100 Balance 1163.1 / 1163.1 503 / 503 Weight 135 lb 9.349 oz Intake: IV 1543.1 / 1543.1 1000 / 1000 NS Inj 1,000 ML @ 84 mls/hr IV. 1000 / 1000 1000 / 1000 CONT .[id number] [facility] Rx#:[id number] Paraplatin Inj 300 MG In NS Inj 280 / 280 250 ML @ 560 mls/hr IV.SIG ONCE ONE Rx#:[id number] Taxol Inj 78.75 MG In NS Inj 263.1 / 263.1 250 ML @ 263.125 mls/hr IV.SIG ONCE ONE Rx#:[id number] Tube Feeding 420 / 420 603 / 603 Output: Urine 800 / 800 Urine Amount (Catheter) 1100 / 1100 Indwelling Urethral Catheter 1100 / 1100 Other: Date of Last Bowel Movement 01/06/18 01/06/18 # Bowel Movements 4 Result Diagrams: 01/07/18 04:30 01/07/18 04:30 Laboratory Results: Laboratory Results - last 24 hr 01/06/18 01/06/18 01/06/18 04:15 13:19 17:56 WBC RBC Hgb Hct MCV MCH MCHC RDW Plt Count MPV Neut % (Auto) Lymph % (Auto) [place] % (Auto) Eos % (Auto) Baso % (Auto) Neut # (Auto) Lymph # (Auto) [place] # (Auto) Eos # (Auto) Baso # (Auto) WBC Differential Differential Comment Sodium Potassium Chloride Carbon Dioxide Anion Gap BUN Creatinine Estimated GFR POC Glucose 134 H 242 H Random Glucose Hemoglobin A1c 6.2 H Calcium Phosphorus Magnesium Total Bilirubin AST ALT Alkaline Phosphatase Total Protein Albumin 01/06/18 01/07/18 01/07/18 23:27 04:30 04:30 WBC 11.5 H RBC 3.63 L Hgb 10.6 L Hct 32.5 L MCV 89.4 MCH 29.3 MCHC 32.8 RDW 15.5 Plt Count 416 MPV 8.9 Neut % (Auto) 93.7 H Lymph % (Auto) 5.3 L [place] % (Auto) 0.7 Eos % (Auto) 0.0 Baso % (Auto) 0.3 Neut # (Auto) 10.8 H Lymph # (Auto) 0.6 L [place] # (Auto) 0.1 Eos # (Auto) 0.0 Baso # (Auto) 0.0 WBC Differential . Differential Comment Auto diff final Sodium 133 L Potassium 4.7 Chloride 94 L Carbon Dioxide 27.3 Anion Gap 12 BUN 14 Creatinine 0.26 L Estimated GFR Greater than 89 POC Glucose 193 H Random Glucose 180 H Hemoglobin A1c Calcium 8.7 Phosphorus 3.5 Magnesium 2.1 Total Bilirubin 0.3 AST 13 L ALT 10 L Alkaline Phosphatase 102 Total Protein 6.6 Albumin 2.5 L 01/07/18 05:10 WBC RBC Hgb Hct MCV MCH MCHC RDW Plt Count MPV Neut % (Auto) Lymph % (Auto) [place] % (Auto) Eos % (Auto) Baso % (Auto) Neut # (Auto) Lymph # (Auto) [place] # (Auto) Eos # (Auto) Baso # (Auto) WBC Differential Differential Comment Sodium Potassium Chloride Carbon Dioxide Anion Gap BUN Creatinine Estimated GFR POC Glucose 212 H Random Glucose Hemoglobin A1c Calcium Phosphorus Magnesium Total Bilirubin AST ALT Alkaline Phosphatase Total Protein Albumin Medications: Active Medications Generic Name Dose Route Start Last Admin Trade Name Freq PRN Reason Stop Dose Admin Acetaminophen 650 mg 12/25/17 00:01 12/27/17 14:26 Tylenol PO 650 mg Q6H PRN Administration FEVER/PAIN SCALE 1 to 2 Albuterol 2.5 mg 12/26/17 16:04 01/02/18 04:06 Albuterol Neb (Prn) NEB 2.5 mg Q2HR NEB PRN Administration DYSPNEA Alprazolam 0.5 mg 12/25/17 00:01 12/28/17 14:13 Xanax G-TUBE 0.5 mg Q6H PRN Administration Anxiety/Agitation Artificial Tears 1 drop 12/26/17 17:00 01/07/18 01:23 Tears Naturale Opth Drops EACH EYE Not Given Q8H [facility] Budesonide/Formoterol Fumarate 2 puff 12/25/17 09:00 01/06/18 20:27 Symbicort 160/4.5 Mcg Inh INH 2 puff BID [facility] Administration Chlorhexidine Gluconate 15 ml 12/25/17 09:00 01/06/18 20:24 Peridex 0.12% Liq SWISH-SPIT 15 ml BID [facility] Administration Docusate Sodium 100 mg 12/26/17 21:00 01/06/18 20:26 Colace Liq G-TUBE Not Given BID [facility] Enoxaparin Sodium 40 mg 01/04/18 12:00 01/06/18 13:31 Lovenox Inj SQ 40 mg Q24H [facility] Administration Gabapentin 300 mg 12/29/17 08:15 01/07/18 05:15 Neurontin Liq PO Not Given Q8HR [facility] Hyoscyamine 0.25 mg 01/03/18 18:00 01/07/18 05:15 Levsin PO 0.25 mg Q6HR [facility] Administration Sodium Chloride 1,000 mls @ 84 mls/hr 01/04/18 13:30 01/07/18 04:21 Ns Inj IV.CONT 84 mls/hr .[id number] [facility] Administration Insulin Aspart 0 unit 12/26/17 18:00 01/07/18 05:15 Novolog Insulin Suppl Scale Inj SQ 4 unit Q6HR [facility] Administration Protocol Insulin Detemir 6 unit 01/04/18 21:00 01/06/18 20:26 Levemir Inj SQ 6 unit HS [facility] Administration Lansoprazole 30 mg 12/27/17 09:00 01/06/18 09:48 Prevacid Solutab NG/OG 30 mg DAILY [facility] Administration Morphine Sulfate 2 mg 12/28/17 08:36 01/07/18 05:15 Morphine Inj IV.PUSH 2 mg Q2H PRN Administration PAIN SCALE 5-10/SEVERE COUGH Morphine Sulfate 8 mg 01/06/18 20:00 01/07/18 04:20 Roxanol Liq G-TUBE 8 mg Q4HR [facility] Administration Ondansetron HCl 4 mg 12/25/17 17:35 12/31/17 17:30 Zofran Odt PO 4 mg Q6H PRN Administration NAUSEA OR VOMITING Ondansetron HCl 4 mg 01/01/18 20:02 01/02/18 06:38 Zofran Inj IV.PUSH 4 mg Q6H PRN Administration NAUSEA Oxycodone HCl 10 mg 12/25/17 00:01 01/06/18 17:59 Roxicodone PO 10 mg Q4H PRN Administration Pain Scale 3 to 5 Patch Removal 1 each 01/04/18 20:00 01/04/18 21:19 Remove Old Patch T-DERMAL Not Given Q72H [facility] Scopolamine 1 patch 01/04/18 20:00 01/04/18 21:18 Transderm-Scop 1.5 Mg Patch.72hr T-DERMAL 1 patch Q72H [facility] Administration Sodium Chloride 2 ml 12/25/17 09:00 01/06/18 20:24 Ns Flush IV.FLUSH Not Given BID [facility] Sterile Water 200 ml 12/25/17 06:00 01/07/18 05:15 Free Water G-TUBE Not Given Q8HR [facility] Temazepam 15 mg 12/25/17 18:35 01/04/18 02:49 Restoril NG/OG 15 mg HS PRN Administration INSOMNIA Tizanidine HCl 4 mg 12/29/17 09:00 01/06/18 20:31 Zanaflex PO 4 mg Q12HR [facility] Administration Objective Remarks: GENERAL: Chronically ill-appearing older male resting in bed in no obvious distress. He is texting on his phone SKIN: Warm and dry. [id number] to right upper chest. No oozing. HEAD: Normocephalic. The patient is able to completely close his mouth today. EYES: No scleral icterus. No injection or drainage. NECK: Supple, tracheostomy in place. Patient continues to have a large right neck mass however this is decreased from previously seen. CARDIOVASCULAR: Normal S1/S2. Regular rate and rhythm RESPIRATORY: Anterior breath sounds clear, equal bilaterally. No accessory muscle use. GASTROINTESTINAL: Abdomen soft, flat, tender, nondistended. PEG tube in place LUQ. EXTREMITIES: No cyanosis or edema. NEUROLOGICAL: Alert and oriented. Follows commands, nods his head and writes on tablet. 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 A delay in his treatment coordinated by the [facility] resulted in his presentation to this hospital with a symptomatic large right neck and base of tongue/tonsil mass. C1 carbo/taxol 12/22 C2 12/29 C3 01/06 Plan: 1. Patient tolerated cycle 3 palliative intent carbotaxol well yesterday. 2. Continue current treatment regimen; initiate radiation when plan complete. 3. Appreciate palliative consult. Continue pain regimen. Pt reports this is improved. - Attending Statement The exam, history, and the medical decision-making described in the above note were completed with the assistance of the mid-level provider. I reviewed and agree with the findings presented. I attest that I had a [id number] encounter with the patient on the same day, and personally performed and documented my assessment and findings in the medical record. Adenopathy is decrease of. He continues to have problems with secretions and requirement for frequent suctioning. He is awake alert and able to move himself around in the bed. He gestures that he is willing to cooperate up. Noted mild anemia with subsequent chemotherapy cycles of. We will consult with radiation as to the palliative treatment.
--- NOTE | 2018-01-07 10:07 | P.PN ---
Subjective Interval history: Nursing denies any deterioration since last night. Saturations have been stable except for when patient's oxygen supply disconnects from his tracheostomy whenever he moves around Physical Exam Vital signs: Vital Signs 01/06/18 11:00 01/06/18 12:00 01/06/18 13:00 Temperature 98.2 F Pulse Rate 72 80 83 Respiratory Rate 16 Blood Pressure 132/68 Pulse Oximetry 92 L 01/06/18 14:45 01/06/18 16:00 01/06/18 16:32 Temperature 98.9 F Pulse Rate 81 93 H 96 H Respiratory Rate 16 Blood Pressure 147/73 H Pulse Oximetry 01/06/18 18:00 01/06/18 20:00 01/06/18 20:56 Temperature 98.7 F Pulse Rate 88 104 H Respiratory Rate 23 Blood Pressure 135/70 Pulse Oximetry 92 L 95 01/06/18 22:00 01/07/18 00:00 01/07/18 01:35 Temperature 98.8 F Pulse Rate 94 H 83 Respiratory Rate 20 Blood Pressure 109/59 L Pulse Oximetry 94 L 95 01/07/18 02:00 01/07/18 04:00 01/07/18 06:00 Temperature 98.8 F Pulse Rate 83 88 78 Respiratory Rate 19 Blood Pressure 130/72 Pulse Oximetry 92 L Intake & Output 01/06/18 01/07/18 01/07/18 18:59 06:59 18:59 Intake Total 1963.1 / 1963.1 1603 / 1603 Output Total 800 / 800 1100 / 1100 Balance 1163.1 / 1163.1 503 / 503 Weight 61.5 kg Intake: IV 1543.1 / 1543.1 1000 / 1000 NS Inj 1,000 ML @ 84 mls/hr IV. 1000 / 1000 1000 / 1000 CONT .[id number] [facility] Rx#:[id number] Paraplatin Inj 300 MG In NS Inj 280 / 280 250 ML @ 560 mls/hr IV.SIG ONCE ONE Rx#:[id number] Taxol Inj 78.75 MG In NS Inj 263.1 / 263.1 250 ML @ 263.125 mls/hr IV.SIG ONCE ONE Rx#:[id number] Tube Feeding 420 / 420 603 / 603 Output: Urine 800 / 800 Urine Amount (Catheter) 1100 / 1100 Indwelling Urethral Catheter 1100 / 1100 Other: Date of Last Bowel Movement 01/06/18 01/06/18 # Bowel Movements 4 Narrative: Coarse breath sounds bilaterally while on tracheostomy, edematous tongue, unlabored breathing, awake, communicates through writing - Urinary Catheter Management Indwelling Urethral Catheter Cath placed during this visit: yes, but has since been removed by the nurse Reason for continuing: Not indwelling catheter Insertion date: 12/20/17 Insertion time: 00:00 Removal date: 01/02/18 Removal time: 07:00 Results - Labs CBC & Chem 7: 01/07/18 04:30 01/07/18 04:30 Laboratory Results - last 24 hr 01/06/18 01/06/18 01/06/18 04:15 13:19 17:56 WBC RBC Hgb Hct MCV MCH MCHC RDW Plt Count MPV Neut % (Auto) Lymph % (Auto) [place] % (Auto) Eos % (Auto) Baso % (Auto) Neut # (Auto) Lymph # (Auto) [place] # (Auto) Eos # (Auto) Baso # (Auto) WBC Differential Differential Comment Sodium Potassium Chloride Carbon Dioxide Anion Gap BUN Creatinine Estimated GFR POC Glucose 134 H 242 H Random Glucose Hemoglobin A1c 6.2 H Calcium Phosphorus Magnesium Total Bilirubin AST ALT Alkaline Phosphatase Total Protein Albumin 01/06/18 01/07/18 01/07/18 23:27 04:30 04:30 WBC 11.5 H RBC 3.63 L Hgb 10.6 L Hct 32.5 L MCV 89.4 MCH 29.3 MCHC 32.8 RDW 15.5 Plt Count 416 MPV 8.9 Neut % (Auto) 93.7 H Lymph % (Auto) 5.3 L [place] % (Auto) 0.7 Eos % (Auto) 0.0 Baso % (Auto) 0.3 Neut # (Auto) 10.8 H Lymph # (Auto) 0.6 L [place] # (Auto) 0.1 Eos # (Auto) 0.0 Baso # (Auto) 0.0 WBC Differential . Differential Comment Auto diff final Sodium 133 L Potassium 4.7 Chloride 94 L Carbon Dioxide 27.3 Anion Gap 12 BUN 14 Creatinine 0.26 L Estimated GFR Greater than 89 POC Glucose 193 H Random Glucose 180 H Hemoglobin A1c Calcium 8.7 Phosphorus 3.5 Magnesium 2.1 Total Bilirubin 0.3 AST 13 L ALT 10 L Alkaline Phosphatase 102 Total Protein 6.6 Albumin 2.5 L 07/14/18 05:10 WBC RBC Hgb Hct MCV MCH MCHC RDW Plt Count MPV Neut % (Auto) Lymph % (Auto) [place] % (Auto) Eos % (Auto) Baso % (Auto) Neut # (Auto) Lymph # (Auto) [place] # (Auto) Eos # (Auto) Baso # (Auto) WBC Differential Differential Comment Sodium Potassium Chloride Carbon Dioxide Anion Gap BUN Creatinine Estimated GFR POC Glucose 212 H Random Glucose Hemoglobin A1c Calcium Phosphorus Magnesium Total Bilirubin AST ALT Alkaline Phosphatase Total Protein Albumin - Procedures SP TRACH AND PEG Assessment and Plan - Plan This is a 62-year-old male with past medical history of right tonsil and cancer , squamous cell carcinoma moderately differentiated, presented emergency department complaining of pain in the neck and unable to eat or drink associated with cough, found to have a large tumor involving the tongue in the right side of the pharynx with necrotic right cervical lymphadenopathy. Patient initially admitted to the hospitalist service, however overnight, respiratory distress and patient had to be emergently trached and was transferred to the financial assistance specialist. Hypoxic respiratory failure, COPD exacerbation, head and neck cancer, lung mass with airway compromise-status post emergent tracheostomy 12/20/2017, presently on trach collar, continue Symbicort, Combivent, T-piece as tolerated. Pulmonary following. Levsin for secretions. On scopolamine. Head and neck cancer, squamous cell carcinoma right tonsil-hematology oncology following for chemotherapy at this time, preparing for XRT. Continue pain control. Continue narcotics, gabapentin, tizanidine and Tylenol. no recurrence of any fevers off of abx. Nutrition-status post PEG placement 12/19/2017, continue Glucerna 1.5 at 65 cc/h with free water every 8 hours 200 cc. Hyperglycemia-continue sliding-scale insulin, hemoglobin A1c is 6.3, low-dose Levemir. Hyponatremia-mild, no significant changes, will stop NS. AM repeat. AM LABS Continue PT/OT. I anticipate the pt's overall resp status will not show sustained improvement until his H&N Ca size improves.
[2018-01-07] MEDS: Chlorhexidine Gluconate 0.12% Liq 15 ML UDC SWISH-SPIT SCH ×2 (11:01→21:17)
[2018-01-07] MEDS: Docusate Sodium Liq 100 MG/10 ML UDC G-TUBE SCH ×2 (11:02→21:14)
[2018-01-07] MEDS: Budesonide-Formoterol 160/4.5 MCG 6 GM Inhaler INH SCH ×2 (11:02→21:13)
[2018-01-07] MEDS: Enoxaparin Inj 40 MG/0.4 ML Syringe SQ SCH (12:54)
--- NOTE | 2018-01-07 16:21 | P.PNPL ---
Subjective Interval history: 62 YO WM wit H&N CA,RF, Trach ON PSV, trach collar Tolerates TF Awake, follows commands Has lot of trach secretions, not bloody today Became agitated, started pulling tubes better now Physical Exam Vital signs: Vital Signs 01/06/18 16:29 01/06/18 16:32 01/06/18 17:00 Temperature Pulse Rate 93 H 96 H 93 H Respiratory Rate 17 20 Blood Pressure 172/80 H 156/82 H Pulse Oximetry 96 97 01/06/18 18:00 01/06/18 19:00 01/06/18 20:00 Temperature 98.7 F Pulse Rate 91 H 102 H 104 H Respiratory Rate 16 19 23 Blood Pressure 135/74 105/54 L 135/70 Pulse Oximetry 96 85 L 92 L 01/06/18 20:41 01/06/18 20:56 01/06/18 21:00 Temperature Pulse Rate 96 H 99 H Respiratory Rate 14 21 Blood Pressure 135/70 Pulse Oximetry 94 L 95 90 L 01/06/18 21:02 01/06/18 22:00 01/06/18 23:00 Temperature Pulse Rate 91 H 94 H 85 Respiratory Rate 13 18 22 Blood Pressure 127/70 110/60 106/61 Pulse Oximetry 90 L 93 L 96 01/07/18 00:00 01/07/18 01:00 01/07/18 01:35 Temperature 98.8 F Pulse Rate 84 90 Respiratory Rate 20 24 Blood Pressure 108/59 L 113/63 Pulse Oximetry 94 L 91 L 95 01/07/18 02:00 01/07/18 03:00 01/07/18 04:00 Temperature 98.8 F Pulse Rate 78 85 88 Respiratory Rate 18 14 19 Blood Pressure 116/65 127/66 130/72 Pulse Oximetry 91 L 94 L 92 L 01/07/18 05:00 01/07/18 06:00 01/07/18 07:00 Temperature Pulse Rate 104 H 78 81 Respiratory Rate 23 14 13 Blood Pressure 165/78 H 131/66 136/63 Pulse Oximetry 85 L 91 L 94 L 01/07/18 08:00 01/07/18 09:00 01/07/18 10:00 Temperature 98.4 F Pulse Rate 84 99 H 90 Respiratory Rate 18 24 19 Blood Pressure 141/68 H 151/73 H 116/63 Pulse Oximetry 98 01/07/18 10:37 01/07/18 11:00 01/07/18 12:00 Temperature 98.3 F Pulse Rate 92 H 98 H Respiratory Rate 20 39 H Blood Pressure 117/68 123/84 Pulse Oximetry 95 96 01/07/18 12:09 01/07/18 14:00 Temperature Pulse Rate 100 H 87 Respiratory Rate 29 H Blood Pressure 123/84 Pulse Oximetry 97 Intake & Output 01/06/18 01/07/18 01/07/18 18:59 06:59 18:59 Intake Total 1963.1 / 1963.1 1603 / 1603 Output Total 800 / 800 1100 / 1100 Balance 1163.1 / 1163.1 503 / 503 Weight 61.5 kg Intake: IV 1543.1 / 1543.1 1000 / 1000 NS Inj 1,000 ML @ 84 mls/hr IV. 1000 / 1000 1000 / 1000 CONT .[id number] [facility] Rx#:[id number] Paraplatin Inj 300 MG In NS Inj 280 / 280 250 ML @ 560 mls/hr IV.SIG ONCE ONE Rx#:[id number] Taxol Inj 78.75 MG In NS Inj 263.1 / 263.1 250 ML @ 263.125 mls/hr IV.SIG ONCE ONE Rx#:[id number] Tube Feeding 420 / 420 603 / 603 Output: Urine 800 / 800 Urine Amount (Catheter) 1100 / 1100 Indwelling Urethral Catheter 1100 / 1100 Other: Date of Last Bowel Movement 01/06/18 01/06/18 01/06/18 # Bowel Movements 4 GENERAL: MBMN WM, mild sob SKIN: Warm and dry. HEAD: Normocephalic. Tongue protrusion decreasing EYES: No scleral icterus. No injection or drainage. NECK: Supple, trachea midline. No JVD or lymphadenopathy. Has Trach Neck mass CARDIOVASCULAR: Regular rate and rhythm without murmurs, gallops, or rubs. RESPIRATORY: Breath sounds equal bilaterally. No accessory muscle use. GASTROINTESTINAL: Abdomen soft, non-tender, nondistended. Has PEG MUSCULOSKELETAL: No cyanosis, or edema. BACK: Nontender without obvious deformity. No CVA tenderness. Narrative: Coarse breath sounds bilaterally while on tracheostomy, edematous tongue, unlabored breathing, awake, communicates through writing - Urinary Catheter Management Indwelling Urethral Catheter Cath placed during this visit: yes, but has since been removed by the nurse Reason for continuing: Not indwelling catheter Insertion date: 12/20/17 Insertion time: 00:00 Removal date: 01/02/18 Removal time: 07:00 Assessment and Plan - Plan Resp failure S/P Emergent trach Neck Mass H&N Ca COPD PLAN: trach collar Fio2 increased to 60% Aerosol nebs cont Abx Tube feeding Scopolamine patch q 72 hrs Radiation treatments next week
[2018-01-07] MEDS: Scopalamine 1.5 MG Patch T-DERMAL SCH (21:11)
[2018-01-07] MEDS: Insulin Detemir Inj 1,000 UNIT/10 ML Vial SQ SCH (21:13)
[2018-01-07] MEDS: [UNRECOGNIZED DRUG - REMARK] T-DERMAL SCH (21:14)
[2018-01-08] MEDS: Morphine Sulfate Oral Liq 10 MG/0.5 ML Syringe G-TUBE SCH ×6 (00:18→21:42)
[2018-01-08] MEDS: Insulin NovoLOG Aspart Correctional Sugar Inj SQ SCH ×4 (00:19→18:20)
[2018-01-08] MEDS: Artificial Tears Opth Drops 15 ML Bottle EACH EYE SCH ×3 (00:28→16:21)
[2018-01-08] MEDS: Gabapentin Liq 250 MG/5 ML UDC PO SCH ×4 (05:23→21:41)
[2018-01-08] MEDS: Budesonide-Formoterol 160/4.5 MCG 6 GM Inhaler INH SCH ×2 (08:00→21:43)
[2018-01-08] MEDS: Chlorhexidine Gluconate 0.12% Liq 15 ML UDC SWISH-SPIT SCH ×2 (08:01→21:41)
[2018-01-08] MEDS: Docusate Sodium Liq 100 MG/10 ML UDC G-TUBE SCH ×2 (08:02→21:07)
--- NOTE | 2018-01-08 10:14 | P.PN ---
Subjective Interval history: Nursing denies any deterioration since last night. Sats have been remained relatively unchanged, still substantial oxygen supplementation via tracheostomy. Physical Exam Vital signs: Vital Signs 01/07/18 10:37 01/07/18 11:00 01/07/18 12:00 Temperature 98.3 F Pulse Rate 92 H 98 H Respiratory Rate 20 39 H Blood Pressure 117/68 123/84 Pulse Oximetry 95 96 01/07/18 12:09 01/07/18 13:00 01/07/18 13:05 Temperature Pulse Rate 100 H 101 H 89 Respiratory Rate 29 H 30 H 14 Blood Pressure 123/84 128/60 Pulse Oximetry 97 96 92 L 01/07/18 13:34 01/07/18 14:00 01/07/18 14:10 Temperature Pulse Rate 103 H 87 90 Respiratory Rate 21 14 21 Blood Pressure 133/81 126/72 Pulse Oximetry 74 L 98 100 01/07/18 14:30 01/07/18 15:00 01/07/18 15:30 Temperature Pulse Rate 92 H 82 87 Respiratory Rate 17 19 16 Blood Pressure 144/75 H 128/72 142/71 H Pulse Oximetry 96 94 L 01/07/18 16:00 01/07/18 16:30 01/07/18 17:00 Temperature 98.9 F Pulse Rate 84 94 H 90 Respiratory Rate 15 26 H 18 Blood Pressure 140/67 141/79 H 135/94 H Pulse Oximetry 95 68 L 85 L 01/07/18 17:30 01/07/18 18:00 01/07/18 18:30 Temperature Pulse Rate 88 96 H 91 H Respiratory Rate 15 15 15 Blood Pressure 145/78 H 156/75 H 131/70 Pulse Oximetry 93 L 98 01/07/18 19:00 01/07/18 19:06 01/07/18 19:30 Temperature Pulse Rate 99 H 98 H 84 Respiratory Rate 25 H 26 H 18 Blood Pressure 150/94 H 123/70 Pulse Oximetry 98 96 01/07/18 20:00 01/07/18 20:30 01/07/18 21:00 Temperature 98.4 F Pulse Rate 84 86 92 H Respiratory Rate 15 15 28 H Blood Pressure 140/71 130/73 Pulse Oximetry 94 L 01/07/18 21:23 01/07/18 22:00 01/07/18 22:01 Temperature Pulse Rate 79 84 78 Respiratory Rate 15 35 H 48 H Blood Pressure 143/71 H 99/53 L Pulse Oximetry 94 L 71 L 96 01/07/18 23:00 01/08/18 00:00 01/08/18 01:00 Temperature 98.4 F Pulse Rate 77 84 79 Respiratory Rate 36 H 35 H 32 H Blood Pressure 89/55 L 100/51 L 99/51 L Pulse Oximetry 100 99 01/08/18 02:00 01/08/18 03:00 01/08/18 03:30 Temperature Pulse Rate 79 79 Respiratory Rate 25 H 18 Blood Pressure 86/49 L 134/72 Pulse Oximetry 100 95 96 01/08/18 04:00 01/08/18 05:00 01/08/18 06:00 Temperature 98.4 F Pulse Rate 83 83 93 H Respiratory Rate 15 21 27 H Blood Pressure 140/78 127/81 122/70 Pulse Oximetry 95 89 L 81 L 01/08/18 07:00 01/08/18 08:00 01/08/18 09:25 Temperature 98.6 F Pulse Rate 91 H 99 H Respiratory Rate 17 27 H Blood Pressure 134/70 134/88 Pulse Oximetry 95 88 L 95 Intake & Output 01/07/18 01/08/18 01/08/18 18:59 06:59 18:59 Intake Total 623 / 623 1143 / 1143 Output Total 900 / 900 2150 / 2150 Balance -277 / -277 -1007 / -1007 Weight 61.5 kg Intake: Oral 0 / 0 Tube Feeding 623 / 623 623 / 623 Tube Irrigant 120 / 120 Water Bolus Amount 400 / 400 Output: Urine 1075 / 1075 Stool 0 / 0 Urine Amount (Catheter) 900 / 900 1075 / 1075 Condom 1075 / 1075 Indwelling Urethral Catheter 900 / 900 Other: # Voids 0 Date of Last Bowel Movement 01/06/18 01/08/18 01/08/18 # Bowel Movements 1 2 Narrative: Lying in bed, no acute distress, slightly protruding and edematous tongue tracheostomy Coarse breath sounds bilaterally, No lower extremity edema - Urinary Catheter Management Indwelling Urethral Catheter Cath placed during this visit: yes, but has since been removed by the nurse Reason for continuing: Not indwelling catheter Insertion date: 12/20/17 Insertion time: 00:00 Removal date: 01/02/18 Removal time: 07:00 Condom Cath placed during this visit: yes Reason for continuing: Hourly intake/output Insertion date: 01/07/18 Insertion time: 21:00 Results - Labs CBC & Chem 7: 01/07/18 04:30 01/07/18 04:30 Laboratory Results - last 24 hr 01/07/18 01/07/18 01/07/18 12:14 17:19 23:59 POC Glucose 252 H 153 H 177 H 01/08/18 05:08 POC Glucose 110 - Procedures SP TRACH AND PEG Assessment and Plan - Plan This is a 62-year-old male with past medical history of right tonsil and cancer , squamous cell carcinoma moderately differentiated, presented emergency department complaining of pain in the neck and unable to eat or drink associated with cough, found to have a large tumor involving the tongue in the right side of the pharynx with necrotic right cervical lymphadenopathy. Patient initially admitted to the hospitalist service, however overnight, respiratory distress and patient had to be emergently trached and was transferred to the booth operator. Hypoxic respiratory failure, COPD exacerbation, head and neck cancer, lung mass with airway compromise-status post emergent tracheostomy 12/20/2017, presently on trach collar, continue Symbicort, Combivent, T-piece as tolerated. Pulmonary following. Levsin for secretions. On scopolamine. Head and neck cancer, squamous cell carcinoma right tonsil-hematology oncology following for chemotherapy at this time, preparing for XRT. Continue pain control. Continue narcotics, gabapentin, tizanidine and Tylenol. Nutrition-status post PEG placement 12/19/2017, continue Glucerna 1.5 at 65 cc/h with free water every 8 hours 200 cc. Hyperglycemia-continue sliding-scale insulin, hemoglobin A1c is 6.3, low-dose Levemir. Hyponatremia-mild, awaiting today's labs after NS stopped yesterday. AM LABS Continue PT/OT. I anticipate the pt's overall resp status will not show sustained improvement until his H&N Ca size improves.
[2018-01-08] MEDS: Enoxaparin Inj 40 MG/0.4 ML Syringe SQ SCH (12:20)
[2018-01-08 14:45] LABS: Anion Gap 6 meq/L (5-15); Blood Urea Nitrogen 18 mg/dL (7-18); Calcium 8.8 mg/dL (8.5-10.1); Chloride 94 meq/L (98-107); Glomerular Filtration Rate Greater Than 89 mL/min (>89); Glucose,Random 92 mg/dL (74-106); Potassium 4.4 meq/L (3.5-5.1); Sodium 134 meq/L (136-145)
--- NOTE | 2018-01-08 18:40 | P.PNPL ---
Subjective Interval history: 62 YO WM wit H&N CA,RF, Trach ON PSV, trach collar Tolerates TF Awake, follows commands Has lot of trach secretions, not bloody today Has Bloody trach secretions Hungry, wants to eat Physical Exam Vital signs: Vital Signs 01/07/18 19:00 01/07/18 19:06 01/07/18 19:30 Temperature Pulse Rate 99 H 98 H 84 Respiratory Rate 25 H 26 H 18 Blood Pressure 150/94 H 123/70 Pulse Oximetry 98 96 01/07/18 20:00 01/07/18 20:30 01/07/18 21:00 Temperature 98.4 F Pulse Rate 84 86 92 H Respiratory Rate 15 15 28 H Blood Pressure 140/71 130/73 Pulse Oximetry 94 L 01/07/18 21:23 01/07/18 22:00 01/07/18 22:01 Temperature Pulse Rate 79 84 78 Respiratory Rate 15 35 H 48 H Blood Pressure 143/71 H 99/53 L Pulse Oximetry 94 L 71 L 96 01/07/18 23:00 01/08/18 00:00 01/08/18 01:00 Temperature 98.4 F Pulse Rate 77 84 79 Respiratory Rate 36 H 35 H 32 H Blood Pressure 89/55 L 100/51 L 99/51 L Pulse Oximetry 100 99 01/08/18 02:00 01/08/18 03:00 01/08/18 03:30 Temperature Pulse Rate 79 79 Respiratory Rate 25 H 18 Blood Pressure 86/49 L 134/72 Pulse Oximetry 100 95 96 01/08/18 04:00 01/08/18 05:00 01/08/18 06:00 Temperature 98.4 F Pulse Rate 83 83 93 H Respiratory Rate 15 21 27 H Blood Pressure 140/78 127/81 122/70 Pulse Oximetry 95 89 L 81 L 01/08/18 07:00 01/08/18 08:00 01/08/18 09:00 Temperature 98.6 F Pulse Rate 91 H 99 H 82 Respiratory Rate 17 27 H 13 Blood Pressure 134/70 134/88 87/55 L Pulse Oximetry 95 88 L 95 01/08/18 09:25 01/08/18 10:00 01/08/18 10:28 Temperature Pulse Rate 84 76 Respiratory Rate 13 17 Blood Pressure 82/54 L 96/60 L Pulse Oximetry 95 97 01/08/18 11:00 01/08/18 12:00 01/08/18 13:00 Temperature 98.7 F Pulse Rate 85 79 94 H Respiratory Rate 15 15 21 Blood Pressure 113/58 L 120/80 Pulse Oximetry 96 01/08/18 13:15 01/08/18 14:00 01/08/18 15:00 Temperature Pulse Rate 91 H 95 H 87 Respiratory Rate 22 13 17 Blood Pressure 107/62 110/55 L 116/65 Pulse Oximetry 96 98 87 L 01/08/18 16:00 Temperature 98.3 F Pulse Rate 81 Respiratory Rate 13 Blood Pressure 121/61 Pulse Oximetry 96 Intake & Output 01/07/18 01/08/18 01/08/18 18:59 06:59 18:59 Intake Total 623 / 623 1143 / 1143 Output Total 900 / 900 2150 / 2150 Balance -277 / -277 -1007 / -1007 Weight 61.5 kg Intake: Oral 0 / 0 Tube Feeding 623 / 623 623 / 623 Tube Irrigant 120 / 120 Water Bolus Amount 400 / 400 Output: Urine 1075 / 1075 Stool 0 / 0 Urine Amount (Catheter) 900 / 900 1075 / 1075 Condom 1075 / 1075 Indwelling Urethral Catheter 900 / 900 Other: # Voids 0 Date of Last Bowel Movement 01/06/18 01/08/18 01/08/18 # Bowel Movements 1 2 GENERAL: Elderly WM, mild sob SKIN: Warm and dry. HEAD: Normocephalic. EYES: No scleral icterus. No injection or drainage. NECK: Supple, trachea midline. No JVD or lymphadenopathy. Neck mass, has trach CARDIOVASCULAR: Regular rate and rhythm without murmurs, gallops, or rubs. RESPIRATORY: Breath sounds equal bilaterally. No accessory muscle use. GASTROINTESTINAL: Abdomen soft, non-tender, nondistended. PEG in place MUSCULOSKELETAL: No cyanosis, or edema. BACK: Nontender without obvious deformity. No CVA tenderness. Narrative: Lying in bed, no acute distress, slightly protruding and edematous tongue tracheostomy Coarse breath sounds bilaterally, No lower extremity edema - Urinary Catheter Management Indwelling Urethral Catheter Cath placed during this visit: yes, but has since been removed by the nurse Reason for continuing: Not indwelling catheter Insertion date: 12/20/17 Insertion time: 00:00 Removal date: 01/02/18 Removal time: 07:00 Condom Cath placed during this visit: yes Reason for continuing: Hourly intake/output Insertion date: 01/07/18 Insertion time: 21:00 Assessment and Plan - Plan Resp failure S/P Emergent trach Neck Mass H&N Ca COPD PLAN: trach collar Fio2 increased to 60% Aerosol nebs cont Abx Tube feeding Scopolamine patch q 72 hrs Radiation treatments next week Monitor trach secretions If increasd bloody secretions, use Racemic epi nebs
[2018-01-08] MEDS: Insulin Detemir Inj 1,000 UNIT/10 ML Vial SQ SCH (21:41)
[2018-01-08] MEDS: Morphine Inj 4 MG/ML Vial IV.PUSH PRN (21:43)
[2018-01-09] MEDS: Artificial Tears Opth Drops 15 ML Bottle EACH EYE SCH ×3 (00:04→18:10)
[2018-01-09] MEDS: Morphine Inj 4 MG/ML Vial IV.PUSH PRN ×2 (03:40→18:16)
[2018-01-09] MEDS: Morphine Sulfate Oral Liq 10 MG/0.5 ML Syringe G-TUBE SCH ×6 (05:26→20:59)
[2018-01-09] MEDS: Gabapentin Liq 250 MG/5 ML UDC PO SCH ×3 (05:26→21:31)
[2018-01-09] MEDS: Insulin NovoLOG Aspart Correctional Sugar Inj SQ SCH ×4 (05:27→18:09)
[2018-01-09] MEDS: Docusate Sodium Liq 100 MG/10 ML UDC G-TUBE SCH ×2 (08:51→21:02)
[2018-01-09] MEDS: Chlorhexidine Gluconate 0.12% Liq 15 ML UDC SWISH-SPIT SCH ×3 (08:51→21:32)
[2018-01-09] MEDS: Budesonide-Formoterol 160/4.5 MCG 6 GM Inhaler INH SCH ×2 (10:58→21:34)
--- NOTE | 2018-01-09 11:49 | P.PN ---
Subjective Interval history: Nursing denies any deterioration since last night. Noted that racemic epinephrine nebulizers were added yesterday. Physical Exam Vital signs: Vital Signs 01/08/18 12:00 01/08/18 13:00 01/08/18 13:15 Temperature 98.7 F Pulse Rate 79 94 H 91 H Respiratory Rate 15 21 22 Blood Pressure 120/80 107/62 Pulse Oximetry 96 96 01/08/18 14:00 01/08/18 15:00 01/08/18 16:00 Temperature 98.3 F Pulse Rate 95 H 87 81 Respiratory Rate 13 17 13 Blood Pressure 110/55 L 116/65 121/61 Pulse Oximetry 98 87 L 96 01/08/18 18:00 01/08/18 20:00 01/08/18 21:14 Temperature 98.9 F Pulse Rate 83 90 Respiratory Rate 19 Blood Pressure 112/60 Pulse Oximetry 98 97 01/08/18 22:00 01/08/18 22:25 01/09/18 00:00 Temperature 98.8 F Pulse Rate 78 83 Respiratory Rate 14 12 Blood Pressure 123/63 Pulse Oximetry 96 01/09/18 00:52 01/09/18 02:00 01/09/18 03:00 Temperature Pulse Rate 97 H Respiratory Rate 12 Blood Pressure Pulse Oximetry 98 01/09/18 04:00 01/09/18 06:00 01/09/18 07:00 Temperature 98.8 F Pulse Rate 80 112 H Respiratory Rate 12 Blood Pressure 118/66 Pulse Oximetry 97 96 01/09/18 08:00 Temperature Pulse Rate 106 H Respiratory Rate Blood Pressure Pulse Oximetry Intake & Output 01/08/18 01/09/18 01/09/18 18:59 06:59 18:59 Intake Total 884 / 884 554 / 554 Output Total 1150 / 1150 525 / 525 Balance -266 / -266 29 / 29 Weight 60.5 kg Intake: Tube Feeding 684 / 684 554 / 554 Water Bolus Amount 200 / 200 Output: Urine Amount (Catheter) 1150 / 1150 525 / 525 Condom 1150 / 1150 525 / 525 Other: # Voids 3 Date of Last Bowel Movement 01/08/18 01/08/18 01/09/18 # Bowel Movements 1 1 Narrative: Still requiring up to 9 L of oxygen on tracheostomy Lying in bed, no acute distress Sleeping heavily No lower extremity edema - Urinary Catheter Management Indwelling Urethral Catheter Cath placed during this visit: yes, but has since been removed by the nurse Reason for continuing: Not indwelling catheter Insertion date: 12/20/17 Insertion time: 00:00 Removal date: 01/02/18 Removal time: 07:00 Condom Cath placed during this visit: yes Reason for continuing: Not indwelling catheter Insertion date: 01/07/18 Insertion time: 21:00 Results - Labs CBC & Chem 7: 01/07/18 04:30 01/08/18 13:52 Laboratory Results - last 24 hr 01/08/18 01/08/18 01/08/18 11:53 13:52 18:04 Sodium 134 L Potassium 4.4 Chloride 94 L Carbon Dioxide 34.0 H Anion Gap 6 BUN 18 Creatinine 0.28 L Estimated GFR Greater than 89 POC Glucose 201 H 199 H Random Glucose 92 Calcium 8.8 01/08/18 01/09/18 23:51 05:25 Sodium Potassium Chloride Carbon Dioxide Anion Gap BUN Creatinine Estimated GFR POC Glucose 204 H 144 H Random Glucose Calcium - Procedures SP TRACH AND PEG Assessment and Plan - Plan This is a 62-year-old male with past medical history of right tonsil and cancer , squamous cell carcinoma moderately differentiated, presented emergency department complaining of pain in the neck and unable to eat or drink associated with cough, found to have a large tumor involving the tongue in the right side of the pharynx with necrotic right cervical lymphadenopathy. Patient initially admitted to the hospitalist service, however overnight, respiratory distress and patient had to be emergently trached and was transferred to the access tech. Hypoxic respiratory failure, COPD exacerbation, head and neck cancer, lung mass with airway compromise-status post emergent tracheostomy 12/20/2017, presently on trach collar, continue Symbicort, Combivent, T-piece as tolerated. Pulmonary following. Levsin for secretions. On scopolamine. Only if cleared w / pulmonology will consider transferring pt Head and neck cancer, squamous cell carcinoma right tonsil-hematology oncology following for chemotherapy at this time, preparing for XRT. Continue pain control. Continue narcotics, gabapentin, tizanidine and Tylenol. Nutrition-status post PEG placement 12/19/2017, continue Glucerna 1.5 at 65 cc/h with free water every 8 hours 200 cc. Hyperglycemia-continue sliding-scale insulin, hemoglobin A1c is 6.3, low-dose Levemir. Hyponatremia-mild - stable off of IVFs. Continue PT/OT. I anticipate the pt's overall resp status will not show sustained improvement until his H&N Ca size improves -which is expected to improve once radiation therapy starts per oncology discussion.
[2018-01-09] MEDS: Enoxaparin Inj 40 MG/0.4 ML Syringe SQ SCH (12:55)
--- NOTE | 2018-01-09 15:22 | P.PNONC ---
Subjective Interval history: Requesting morphine to be given IV instead of via PEG. We discussed the availability of pain meds scheduled and breakthrough. Still has pain, better with pain meds. Communicated with writing. Objective Vital Signs/Intake & Output: Vital Signs 01/08/18 16:00 01/08/18 17:00 01/08/18 18:00 Temperature 98.3 F Pulse Rate 81 85 83 Respiratory Rate 13 14 15 Blood Pressure 121/61 118/60 99/50 L Pulse Oximetry 96 91 L 98 01/08/18 19:00 01/08/18 20:00 01/08/18 21:14 Temperature 98.9 F Pulse Rate 90 90 Respiratory Rate 15 19 Blood Pressure 125/64 112/60 Pulse Oximetry 99 98 97 01/08/18 21:17 01/08/18 22:00 01/08/18 22:25 Temperature Pulse Rate 88 78 Respiratory Rate 19 14 14 Blood Pressure 125/70 140/68 Pulse Oximetry 95 99 01/08/18 23:00 01/09/18 00:00 01/09/18 00:02 Temperature 98.8 F Pulse Rate 78 83 86 Respiratory Rate 19 12 16 Blood Pressure 88/49 L 123/63 123/63 Pulse Oximetry 96 96 96 01/09/18 00:52 01/09/18 01:00 01/09/18 02:00 Temperature Pulse Rate 91 H 97 H Respiratory Rate 12 16 19 Blood Pressure 108/66 Pulse Oximetry 98 98 01/09/18 03:00 01/09/18 03:39 01/09/18 04:00 Temperature 98.8 F Pulse Rate 83 80 Respiratory Rate 15 12 Blood Pressure 137/71 118/66 Pulse Oximetry 98 97 01/09/18 05:00 01/09/18 06:00 01/09/18 07:00 Temperature Pulse Rate 96 H 112 H Respiratory Rate 18 21 Blood Pressure 123/70 159/75 H Pulse Oximetry 96 94 L 96 01/09/18 07:01 01/09/18 08:00 01/09/18 09:00 Temperature 98.5 F Pulse Rate 100 H 106 H 98 H Respiratory Rate 21 22 23 Blood Pressure 154/69 H 149/74 H 162/78 H Pulse Oximetry 93 L 95 95 01/09/18 10:00 01/09/18 11:00 01/09/18 12:00 Temperature Pulse Rate 93 H 100 H 93 H Respiratory Rate 18 Blood Pressure 105/59 L 134/64 125/84 Pulse Oximetry 97 96 93 L 01/09/18 13:00 01/09/18 14:00 Temperature Pulse Rate 93 H 93 H Respiratory Rate 26 H Blood Pressure 126/63 Pulse Oximetry 98 Intake & Output 01/08/18 01/09/18 01/09/18 18:59 06:59 18:59 Intake Total 884 / 884 554 / 554 Output Total 1150 / 1150 525 / 525 Balance -266 / -266 29 Weight 60.5 kg Intake: Tube Feeding 684 / 684 554 / 554 Water Bolus Amount 200 / 200 Output: Urine Amount (Catheter) 1150 / 1150 525 / 525 Condom 1150 / 1150 525 / 525 Other: # Voids 3 Date of Last Bowel Movement 01/08/18 01/08/18 01/09/18 # Bowel Movements 1 1 Result Diagrams: 01/07/18 04:30 01/08/18 13:52 Laboratory Results: Laboratory Results - last 24 hr 01/08/18 01/08/18 01/09/18 18:04 23:51 05:25 POC Glucose 199 H 204 H 144 H 01/09/18 12:52 POC Glucose 212 H Medications: Active Medications Generic Name Dose Route Start Last Admin Trade Name Freq PRN Reason Stop Dose Admin Acetaminophen 650 mg 12/25/17 00:01 12/27/17 14:26 Tylenol PO 650 mg Q6H PRN Administration FEVER/PAIN SCALE 1 to 2 Albuterol 2.5 mg 12/26/17 16:04 01/02/18 04:06 Albuterol Neb (Prn) NEB 2.5 mg Q2HR NEB PRN Administration DYSPNEA Alprazolam 0.5 mg 12/25/17 00:01 12/28/17 14:13 Xanax G-TUBE 0.5 mg Q6H PRN Administration Anxiety/Agitation Artificial Tears 1 drop 12/26/17 17:00 01/09/18 10:57 Tears Naturale Opth Drops EACH EYE Not Given Q8H BRENDEN Budesonide/Formoterol Fumarate 2 puff 12/25/17 09:00 01/09/18 10:58 Symbicort 160/4.5 Mcg Inh INH 2 puff BID BRENDEN Administration Chlorhexidine Gluconate 15 ml 12/25/17 09:00 01/09/18 10:58 Peridex 0.12% Liq SWISH-SPIT 15 ml BID BRENDEN Administration Docusate Sodium 100 mg 12/26/17 21:00 01/09/18 08:51 Colace Liq G-TUBE 100 mg BID BRENDEN Administration Enoxaparin Sodium 40 mg 01/04/18 12:00 01/09/18 12:55 Lovenox Inj SQ 40 mg Q24H BRENDEN Administration Gabapentin 300 mg 12/29/17 08:15 01/09/18 13:34 Neurontin Liq PO 300 mg Q8HR BRENDEN Administration Hyoscyamine 0.25 mg 01/03/18 18:00 01/09/18 12:55 Levsin PO 0.25 mg Q6HR BRENDEN Administration Insulin Aspart 0 unit 12/26/17 18:00 01/09/18 12:56 Novolog Insulin Suppl Scale Inj SQ 4 unit Q6HR BRENDEN Administration Protocol Insulin Detemir 6 unit 01/04/18 21:00 01/08/18 21:41 Levemir Inj SQ 6 unit HS [facility] Administration Lansoprazole 30 mg 12/27/17 09:00 01/09/18 08:52 Prevacid Solutab NG/OG 30 mg DAILY BRENDEN Administration Morphine Sulfate 2 mg 12/28/17 08:36 01/09/18 03:40 Morphine Inj IV.PUSH 2 mg Q2H PRN Administration PAIN SCALE 5-10/SEVERE COUGH Morphine Sulfate 8 mg 01/06/18 20:00 01/09/18 12:55 Roxanol Liq G-TUBE 8 mg Q4HR BRENDEN Administration Ondansetron HCl 4 mg 12/25/17 17:35 12/31/17 17:30 Zofran Odt PO 4 mg Q6H PRN Administration NAUSEA OR VOMITING Ondansetron HCl 4 mg 01/01/18 20:02 01/02/18 06:38 Zofran Inj IV.PUSH 4 mg Q6H PRN Administration NAUSEA Oxycodone HCl 10 mg 12/25/17 00:01 01/06/18 17:59 Roxicodone PO 10 mg Q4H PRN Administration Pain Scale 3 to 5 Patch Removal 1 each 01/04/18 20:00 01/07/18 21:14 Remove Old Patch T-DERMAL 1 each Q72H BRENDEN Administration Scopolamine 1 patch 01/04/18 20:00 01/07/18 21:11 Transderm-Scop 1.5 Mg Patch.72hr T-DERMAL 1 patch Q72H BRENDEN Administration Sodium Chloride 2 ml 12/25/17 09:00 01/09/18 10:58 Ns Flush IV.FLUSH 2 ml BID BRENDEN Administration Sterile Water 200 ml 12/25/17 06:00 01/09/18 13:34 Free Water G-TUBE 200 ml Q8HR BRENDEN Administration Temazepam 15 mg 12/25/17 18:35 01/04/18 02:49 Restoril NG/OG 15 mg HS PRN Administration INSOMNIA Tizanidine HCl 4 mg 12/29/17 09:00 01/09/18 08:52 Zanaflex PO 4 mg Q12HR BRENDEN Administration Objective Remarks: GENERAL: Cachectic, chronically ill man. SKIN: Warm and dry. Mouth with less swelling, crust on tip. Able to retract tongue in mouth. R neck mass persist, smaller than exam 01/06. HEAD: Normocephalic. EYES: No scleral icterus. No injection or drainage. NECK: Supple, trachea midline. No JVD or lymphadenopathy. LYMPHATIC: No adenopathy. CARDIOVASCULAR: Regular rate and rhythm without murmurs. RESPIRATORY: Breath sounds equal bilaterally. No accessory muscle use. GASTROINTESTINAL: Abdomen soft, non-tender, nondistended. EXTREMITIES: No cyanosis, or edema. MUSCULOSKELETAL: Adequate muscle tone. NEUROLOGICAL: No obvious focal deficit. Awake, alert, and oriented x3. 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 A delay in his treatment coordinated by the [facility] resulted in his presentation to this hospital with a symptomatic large right neck and base of tongue/tonsil mass. C1 carbo/taxol 12/22 C2 12/29 C3 01/06 Plan: 1. Patient tolerated week 3 palliative carbo/taxol on 01/06, response with decrease swelling, tongue less swollen, the mass is still present. Discussed with radiation oncology. Physicist pending approval of treatment. Anticipate starting XRT tomorrow. 2. Noted mild anemia. 3. Continue scheduled pain medication and breakthrough. Pt made aware and advised to ask for breakthrough medication. 4. PEG tube feeding continue for nutrition 5. Tacheostomy inplace
--- NOTE | 2018-01-09 19:55 | P.PNPL ---
Subjective Interval history: 62 YO WM wit H&N CA,RF, Trach ON PSV, trach collar Tolerates TF Awake, follows commands Has lot of trach secretions, not bloody today Tongue swelling decreased Physical Exam Vital signs: Vital Signs 01/08/18 20:00 01/08/18 21:14 01/08/18 21:17 Temperature 98.9 F Pulse Rate 90 88 Respiratory Rate 19 19 Blood Pressure 112/60 125/70 Pulse Oximetry 98 97 95 01/08/18 22:00 01/08/18 22:25 01/08/18 23:00 Temperature Pulse Rate 78 78 Respiratory Rate 14 14 19 Blood Pressure 140/68 88/49 L Pulse Oximetry 99 96 01/09/18 00:00 01/09/18 00:02 01/09/18 00:52 Temperature 98.8 F Pulse Rate 83 86 Respiratory Rate 12 16 12 Blood Pressure 123/63 123/63 Pulse Oximetry 96 96 01/09/18 01:00 01/09/18 02:00 01/09/18 03:00 Temperature Pulse Rate 91 H 97 H Respiratory Rate 16 19 Blood Pressure 108/66 Pulse Oximetry 98 98 98 01/09/18 03:39 01/09/18 04:00 01/09/18 05:00 Temperature 98.8 F Pulse Rate 83 80 96 H Respiratory Rate 15 12 18 Blood Pressure 137/71 118/66 123/70 Pulse Oximetry 97 96 01/09/18 06:00 01/09/18 07:00 01/09/18 07:01 Temperature Pulse Rate 112 H 100 H Respiratory Rate 21 21 Blood Pressure 159/75 H 154/69 H Pulse Oximetry 94 L 96 93 L 01/09/18 08:00 01/09/18 09:00 01/09/18 10:00 Temperature 98.5 F Pulse Rate 106 H 98 H 93 H Respiratory Rate 22 23 14 Blood Pressure 149/74 H 162/78 H 105/59 L Pulse Oximetry 95 95 97 01/09/18 11:00 01/09/18 12:00 01/09/18 13:00 Temperature Pulse Rate 100 H 93 H 93 H Respiratory Rate 19 18 26 H Blood Pressure 134/64 125/84 126/63 Pulse Oximetry 96 93 L 98 01/09/18 14:00 01/09/18 15:00 01/09/18 16:00 Temperature 99.1 F Pulse Rate 95 H 91 H 92 H Respiratory Rate 16 19 15 Blood Pressure 126/64 95/54 L 108/65 Pulse Oximetry 96 92 L 96 01/09/18 17:00 01/09/18 18:00 Temperature Pulse Rate 83 83 Respiratory Rate 17 Blood Pressure 117/59 L Pulse Oximetry 86 L Intake & Output 01/09/18 01/09/18 01/10/18 06:59 18:59 06:59 Intake Total 554 / 554 874 / 874 1152 / 1152 Output Total 525 / 525 1600 / 1600 450 / 450 Balance 29 / 29 -726 / -726 702 / 702 Weight 60.5 kg Intake: Oral 0 / 0 Tube Feeding 554 / 554 554 / 554 752 / 752 Tube Irrigant 120 / 120 Water Bolus Amount 200 / 200 400 / 400 Output: Urine 1075 / 1075 450 / 450 Stool 0 / 0 Urine Amount (Catheter) 525 / 525 525 / 525 Condom 525 / 525 525 / 525 Other: # Voids 3 3 Date of Last Bowel Movement 01/08/18 01/09/18 01/09/18 # Bowel Movements 1 1 1 GENERAL: Elderly male, mild sob SKIN: Warm and dry. HEAD: Normocephalic. EYES: No scleral icterus. No injection or drainage. NECK: Supple, trachea midline. No JVD or lymphadenopathy. Neck mass trach in place CARDIOVASCULAR: Regular rate and rhythm without murmurs, gallops, or rubs. RESPIRATORY: Breath sounds equal bilaterally. No accessory muscle use. GASTROINTESTINAL: Abdomen soft, non-tender, nondistended. Has PEG tube MUSCULOSKELETAL: No cyanosis, or edema. BACK: Nontender without obvious deformity. No CVA tenderness. - Urinary Catheter Management Indwelling Urethral Catheter Cath placed during this visit: yes, but has since been removed by the nurse Reason for continuing: Not indwelling catheter Insertion date: 12/20/17 Insertion time: 00:00 Removal date: 01/02/18 Removal time: 07:00 Condom Cath placed during this visit: yes Reason for continuing: Not indwelling catheter Insertion date: 01/07/18 Insertion time: 21:00 Assessment and Plan - Plan Resp failure S/P Emergent trach Neck Mass H&N Ca COPD PLAN: trach collar Fio2 increased to 60% Aerosol nebs cont Abx Tube feeding Scopolamine patch q 72 hrs Radiation treatments next week Monitor trach secretions
[2018-01-09] MEDS: Insulin Detemir Inj 1,000 UNIT/10 ML Vial SQ SCH (21:02)
[2018-01-10] MEDS: Morphine Sulfate Oral Liq 10 MG/0.5 ML Syringe G-TUBE SCH ×6 (00:12→21:51)
[2018-01-10] MEDS: Insulin NovoLOG Aspart Correctional Sugar Inj SQ SCH ×4 (00:15→17:51)
[2018-01-10] MEDS: Artificial Tears Opth Drops 15 ML Bottle EACH EYE SCH ×3 (00:16→17:52)
[2018-01-10] MEDS: Morphine Inj 4 MG/ML Vial IV.PUSH PRN ×2 (04:19→04:25)
[2018-01-10] MEDS: Gabapentin Liq 250 MG/5 ML UDC PO SCH ×3 (05:33→21:53)
[2018-01-10 07:40] LABS: Baso # (Auto) 0.1 th/mm3 (0.0-0.2); Baso % (Auto) 0.4 % (0.0-2.0); Eos # (Auto) 0.1 th/mm3 (0.0-0.4); Eos % (Auto) 0.4 % (0.0-4.0); Hematocrit 30.6 % (39.0-51.0); Hemoglobin 10.1 gm/dL (13.0-17.0); Lymph # (Auto) 2.1 th/mm3 (1.0-4.8); Lymph % (Auto) 11.8 % (9.0-44.0); Mean Corpuscular Hemoglobin 29.6 pg (27.0-34.0); Mean Corpuscular Volume 89.5 fL (80.0-100.0); Mean Platelet Volume 8.5 fL (7.0-11.0); Mono # (Auto) 1.2 th/mm3 (0.0-0.9); Mono % (Auto) 6.8 % (0.0-8.0); Neut # (Auto) 14.4 th/mm3 (1.8-7.7); Neut % (Auto) 80.6 % (16.0-70.0); Platelet Count 350 th/mm3 (150-450); Red Blood Count 3.41 mil/mm3 (4.50-5.90); Red Cell Distribution Width 15.4 % (11.6-17.2); White Blood Count 17.9 th/mm3 (4.0-11.0)
[2018-01-10 08:04] LABS: Alanine Aminotransferase 12 U/L (12-78); Albumin 2.8 g/dL (3.4-5.0); Anion Gap 8 meq/L (5-15); Aspartate Aminotransferase 11 U/L (15-37); Blood Urea Nitrogen 17 mg/dL (7-18); Calcium 8.4 mg/dL (8.5-10.1); Chloride 93 meq/L (98-107); Glomerular Filtration Rate Greater Than 89 mL/min (>89); Glucose,Random 151 mg/dL (74-106); Potassium 4.2 meq/L (3.5-5.1); Sodium 132 meq/L (136-145)
[2018-01-10 08:06] LABS: Alkaline Phosphatase 96 U/L (45-117); Total Protein 6.4 g/dL (6.4-8.2)
[2018-01-10] MEDS: Chlorhexidine Gluconate 0.12% Liq 15 ML UDC SWISH-SPIT SCH ×2 (08:06→21:53)
[2018-01-10] MEDS: Docusate Sodium Liq 100 MG/10 ML UDC G-TUBE SCH ×2 (08:06→21:52)
--- NOTE | 2018-01-10 08:43 | P.PNIM ---
Subjective Interval history: in no acute distress. has moderate pain to the right neck. otherwise no other complaints. d/w the RN and no acute issues over night. Physical Exam Vital signs: Vital Signs 01/09/18 09:00 01/09/18 10:00 01/09/18 11:00 Temperature Pulse Rate 98 H 93 H 100 H Respiratory Rate 23 14 19 Blood Pressure 162/78 H 105/59 L 134/64 Pulse Oximetry 95 97 96 01/09/18 12:00 01/09/18 13:00 01/09/18 14:00 Temperature Pulse Rate 93 H 93 H 95 H Respiratory Rate 18 26 H 16 Blood Pressure 125/84 126/63 126/64 Pulse Oximetry 93 L 98 96 01/09/18 15:00 01/09/18 16:00 01/09/18 17:00 Temperature 99.1 F Pulse Rate 91 H 92 H 83 Respiratory Rate 19 15 17 Blood Pressure 95/54 L 108/65 117/59 L Pulse Oximetry 92 L 96 86 L 01/09/18 18:00 01/09/18 20:00 01/09/18 21:33 Temperature 98.4 F Pulse Rate 83 101 H Respiratory Rate 25 H Blood Pressure 128/74 Pulse Oximetry 100 96 01/09/18 22:00 01/10/18 00:00 01/10/18 02:00 Temperature 98.4 F Pulse Rate 95 H 93 H 93 H Respiratory Rate 16 Blood Pressure 116/66 Pulse Oximetry 93 L 01/10/18 04:00 01/10/18 06:00 01/10/18 07:00 Temperature 98.6 F Pulse Rate 88 88 Respiratory Rate 15 Blood Pressure 128/70 Pulse Oximetry 99 99 Intake & Output 01/09/18 01/10/18 01/10/18 18:59 06:59 18:59 Intake Total 874 / 874 2107 / 2107 Output Total 1600 / 1600 1000 / 1000 Balance -726 / -726 1107 / 1107 Weight 59.5 kg Intake: Oral 0 / 0 0 / 0 Tube Feeding 554 / 554 1307 / 1307 Tube Irrigant 120 / 120 Water Bolus Amount 200 / 200 800 / 800 Output: Urine 1075 / 1075 450 / 450 Stool 0 / 0 Urine Amount (Catheter) 525 / 525 550 / 550 Condom 525 / 525 550 / 550 Other: # Voids 3 Date of Last Bowel Movement 01/09/18 01/10/18 # Bowel Movements 1 1 - Constitutional no acute distress - Routine Neck Exam Comments: fairly large mass- right neck. - Routine Respiratory Exam Present: CTA bilaterally - Routine Cardiovascular Exam Present: RRR - Routine Abdominal Exam Present: soft - Routine Neurological Exam Present: alert, oriented X3 - Urinary Catheter Management Indwelling Urethral Catheter Cath placed during this visit: yes, but has since been removed by the nurse Reason for continuing: Not indwelling catheter Insertion date: 12/20/17 Insertion time: 00:00 Removal date: 01/02/18 Removal time: 07:00 Condom Cath placed during this visit: yes Reason for continuing: Not indwelling catheter Insertion date: 01/07/18 Insertion time: 21:00 Results - Labs CBC & Chem 7: 01/10/18 06:15 01/10/18 06:15 Laboratory Results - last 24 hr 01/09/18 01/09/18 01/09/18 12:52 16:42 23:57 WBC RBC Hgb Hct MCV MCH MCHC RDW Plt Count MPV Neut % (Auto) Lymph % (Auto) [place] % (Auto) Eos % (Auto) Baso % (Auto) Neut # (Auto) Lymph # (Auto) [place] # (Auto) Eos # (Auto) Baso # (Auto) WBC Differential Differential Comment Sodium Potassium Chloride Carbon Dioxide Anion Gap BUN Creatinine Estimated GFR POC Glucose 212 H 111 H 186 H Random Glucose Calcium Total Bilirubin AST ALT Alkaline Phosphatase Total Protein Albumin 01/10/18 01/10/18 01/10/18 05:26 06:15 06:15 WBC 17.9 H RBC 3.41 L Hgb 10.1 L Hct 30.6 L MCV 89.5 MCH 29.6 MCHC 33.0 RDW 15.4 Plt Count 350 MPV 8.5 Neut % (Auto) 80.6 H Lymph % (Auto) 11.8 [place] % (Auto) 6.8 Eos % (Auto) 0.4 Baso % (Auto) 0.4 Neut # (Auto) 14.4 H Lymph # (Auto) 2.1 [place] # (Auto) 1.2 H Eos # (Auto) 0.1 Baso # (Auto) 0.1 WBC Differential . Differential Comment Auto diff final Sodium 132 L Potassium 4.2 Chloride 93 L Carbon Dioxide 31.0 Anion Gap 8 BUN 17 Creatinine 0.32 L Estimated GFR Greater than 89 POC Glucose 176 H Random Glucose 151 H Calcium 8.4 L Total Bilirubin 0.5 AST 11 L ALT 12 Alkaline Phosphatase 96 Total Protein 6.4 Albumin 2.8 L - Procedures SP TRACH AND PEG Assessment and Plan - Plan Hypoxic respiratory failure, COPD exacerbation, head and neck cancer, lung mass with airway compromise-status post emergent tracheostomy 12/20/2017, presently on trach collar, continue Symbicort, Combivent, T-piece as tolerated. Pulmonary following. Levsin for secretions. On scopolamine. Head and neck cancer, squamous cell carcinoma right tonsil-hematology oncology following for chemotherapy at this time, preparing for XRT. Continue pain control. Continue narcotics, gabapentin, tizanidine and Tylenol. Nutrition-status post PEG placement 12/19/2017, continue Glucerna 1.5 at 65 cc/h with free water every 8 hours 200 cc. Hyperglycemia-continue sliding-scale insulin, hemoglobin A1c is 6.3, continue low-dose Levemir. Hyponatremia-mild - stable off of IVFs. ok with pulmonary to transfer. transfer to floor. d/w the RN.
[2018-01-10] MEDS: Enoxaparin Inj 40 MG/0.4 ML Syringe SQ SCH (11:44)
[2018-01-10] MEDS: Budesonide-Formoterol 160/4.5 MCG 6 GM Inhaler INH SCH ×2 (14:17→21:53)
--- NOTE | 2018-01-10 15:52 | P.PNPAL ---
Reason for Visit Reason for visit: a. To assist with evaluation and management of symptoms including: pain, dyspnea, anxiety, nausea b. To assist medical decision maker(s) with: better understanding of current medical conditions; weighing benefits/burdens of medical treatment options; making medical treatment decisions. Subjective Subjective/Interval History: Pt is awake and alert, in no apparent distress. s/p 3rd dose chemotherapy. Radiation treatment planning is in progress. He denies feeling SOB at rest. He denies SOB during therapy. Per therapy note he is doing as well as could be expected with numerous lines and tubes, ambulates with wheeled walker, 1 person assist. He indicates that his pain is 8/10. He provides inconsistent report of pain relief. Initially he indicates that it is not well controlled but he acknowledges that he does feel better after his pain meds, and better overall since chemotherapy initiated. He is simultaneously asking me for morphine to go through his port. When asked why he wanted IV morphine, he indicated that the PO medication was upsetting his stomach. He denied vomiting and said that whatever nausea medication he was given was helpful. Per MAR he did not receive anything for nausea. He communicated with RN in writing to her "I don't want to ." per RN he keeps pulling of his BP cuff and condom cath. He indicated to me in writing that it was because he tosses and turns in his sleep and these things were uncomfortable for him. Advance Directives Health Care Surrogate Name and Number: primary WALE Dolan; secondary Dianna Dolan Objective Vital Signs: Vital Signs 01/09/18 16:00 01/09/18 17:00 01/09/18 18:00 Temperature 99.1 F Pulse Rate 92 H 83 98 H Respiratory Rate 15 17 18 Blood Pressure 108/65 117/59 L 132/65 Pulse Oximetry 96 86 L 96 01/09/18 19:00 01/09/18 20:00 01/09/18 20:01 Temperature 98.4 F Pulse Rate 98 H 101 H 103 H Respiratory Rate 17 25 H 20 Blood Pressure 113/69 128/74 128/74 Pulse Oximetry 86 L 96 91 L 01/09/18 21:00 01/09/18 21:33 01/09/18 22:00 Temperature Pulse Rate 97 H 95 H Respiratory Rate 26 H 24 Blood Pressure 121/66 Pulse Oximetry 91 L 96 91 L 01/09/18 22:07 07/16/18 23:00 01/10/18 00:00 Temperature 98.4 F Pulse Rate 86 91 H 93 H Respiratory Rate 16 18 16 Blood Pressure 108/61 100/66 116/66 Pulse Oximetry 98 97 90 L 01/10/18 01:00 01/10/18 02:00 01/10/18 03:00 Temperature Pulse Rate 96 H 98 H 87 Respiratory Rate 30 H 27 H 19 Blood Pressure 107/69 139/77 96/51 L Pulse Oximetry 96 94 L 97 01/10/18 04:00 01/10/18 05:00 01/10/18 06:00 Temperature 98.6 F Pulse Rate 88 89 95 H Respiratory Rate 15 16 20 Blood Pressure 128/70 120/74 Pulse Oximetry 99 85 L 01/10/18 06:01 01/10/18 07:00 01/10/18 07:01 Temperature Pulse Rate 100 H 91 H Respiratory Rate 19 19 Blood Pressure 117/79 136/76 Pulse Oximetry 85 L 99 100 01/10/18 08:00 01/10/18 08:03 01/10/18 09:00 Temperature 99.1 F Pulse Rate 92 H 86 91 H Respiratory Rate 36 H 27 H 16 Blood Pressure 120/67 120/67 104/62 Pulse Oximetry 87 L 89 L 100 01/10/18 09:39 01/10/18 09:41 01/10/18 10:00 Temperature Pulse Rate 92 H 83 Respiratory Rate 18 18 Blood Pressure 106/61 Pulse Oximetry 95 01/10/18 11:01 01/10/18 12:00 01/10/18 12:59 Temperature 99.2 F Pulse Rate 97 H 99 H Respiratory Rate 23 20 Blood Pressure 124/67 148/94 H Pulse Oximetry 97 01/10/18 13:16 01/10/18 14:00 Temperature Pulse Rate 100 H 103 H Respiratory Rate 24 20 Blood Pressure 127/73 Pulse Oximetry 100 80 L Intake & Output 01/09/18 01/10/18 01/10/18 18:59 06:59 18:59 Intake Total 874 / 874 2107 / 2107 Output Total 1600 / 1600 1000 / 1000 Balance -726 / -726 1107 / 1107 Weight 59.5 kg Intake: Oral 0 / 0 0 / 0 Tube Feeding 554 / 554 1307 / 1307 Tube Irrigant 120 / 120 Water Bolus Amount 200 / 200 800 / 800 Output: Urine 1075 / 1075 450 / 450 Stool 0 / 0 Urine Amount (Catheter) 525 / 525 550 / 550 Condom 525 / 525 550 / 550 Other: # Voids 3 Date of Last Bowel Movement 01/09/18 01/10/18 01/10/18 # Bowel Movements 1 1 Physical Exam: CONSTITUTIONAL/GENERAL: mildly cachectic TUBES/LINES/DRAINS: port, trach to t-piece SKIN: sallow complexion No wounds seen anteriorly other than face. Not diaphoretic. HEAD: Atraumatic. Disfigured right face and neck, mass appears smaller than previous exams EYES: Pupils equal and round and reactive. Extraocular motions intact. No scleral icterus. No injection or drainage. Fundi not examined. ENT: Hearing grossly normal. Nose without bleeding or purulent drainage. large mass right cheek extending down to neck NECK: mass right side. RESPIRATORY/CHEST: respirations unlabored, audible upper respiratory congestion. +rhonchi GASTROINTESTINAL: Abdomen soft, nontender, nondistended, +BS. + PEG tube MUSCULOSKELETAL: Extremities without clubbing, cyanosis, mottling NEUROLOGICAL: Awake and alert. Oriented. Moves all extremities. PSYCHIATRIC: flat affect Diagnostic Tests Laboratory: Laboratory Results - last 72 hr 01/07/18 01/07/18 01/08/18 17:19 23:59 05:08 WBC RBC Hgb Hct MCV MCH MCHC RDW Plt Count MPV Neut % (Auto) Lymph % (Auto) [place] % (Auto) Eos % (Auto) Baso % (Auto) Neut # (Auto) Lymph # (Auto) [place] # (Auto) Eos # (Auto) Baso # (Auto) WBC Differential Differential Comment Sodium Potassium Chloride Carbon Dioxide Anion Gap BUN Creatinine Estimated GFR POC Glucose 153 H 177 H 110 Random Glucose Calcium Total Bilirubin AST ALT Alkaline Phosphatase Total Protein Albumin 01/08/18 01/08/18 01/08/18 11:53 13:52 18:04 WBC RBC Hgb Hct MCV MCH MCHC RDW Plt Count MPV Neut % (Auto) Lymph % (Auto) [place] % (Auto) Eos % (Auto) Baso % (Auto) Neut # (Auto) Lymph # (Auto) [place] # (Auto) Eos # (Auto) Baso # (Auto) WBC Differential Differential Comment Sodium 134 L Potassium 4.4 Chloride 94 L Carbon Dioxide 34.0 H Anion Gap 6 BUN 18 Creatinine 0.28 L Estimated GFR Greater than 89 POC Glucose 201 H 199 H Random Glucose 92 Calcium 8.8 Total Bilirubin AST ALT Alkaline Phosphatase Total Protein Albumin 01/08/18 01/09/18 01/09/18 23:51 05:25 12:52 WBC RBC Hgb Hct MCV MCH MCHC RDW Plt Count MPV Neut % (Auto) Lymph % (Auto) [place] % (Auto) Eos % (Auto) Baso % (Auto) Neut # (Auto) Lymph # (Auto) [place] # (Auto) Eos # (Auto) Baso # (Auto) WBC Differential Differential Comment Sodium Potassium Chloride Carbon Dioxide Anion Gap BUN Creatinine Estimated GFR POC Glucose 204 H 144 H 212 H Random Glucose Calcium Total Bilirubin AST ALT Alkaline Phosphatase Total Protein Albumin 01/09/18 01/09/18 01/10/18 16:42 23:57 05:26 WBC RBC Hgb Hct MCV MCH MCHC RDW Plt Count MPV Neut % (Auto) Lymph % (Auto) [place] % (Auto) Eos % (Auto) Baso % (Auto) Neut # (Auto) Lymph # (Auto) [place] # (Auto) Eos # (Auto) Baso # (Auto) WBC Differential Differential Comment Sodium Potassium Chloride Carbon Dioxide Anion Gap BUN Creatinine Estimated GFR POC Glucose 111 H 186 H 176 H Random Glucose Calcium Total Bilirubin AST ALT Alkaline Phosphatase Total Protein Albumin 01/10/18 01/10/18 01/10/18 06:15 06:15 11:28 WBC 17.9 H RBC 3.41 L Hgb 10.1 L Hct 30.6 L MCV 89.5 MCH 29.6 MCHC 33.0 RDW 15.4 Plt Count 350 MPV 8.5 Neut % (Auto) 80.6 H Lymph % (Auto) 11.8 [place] % (Auto) 6.8 Eos % (Auto) 0.4 Baso % (Auto) 0.4 Neut # (Auto) 14.4 H Lymph # (Auto) 2.1 [place] # (Auto) 1.2 H Eos # (Auto) 0.1 Baso # (Auto) 0.1 WBC Differential . Differential Comment Auto diff final Sodium 132 L Potassium 4.2 Chloride 93 L Carbon Dioxide 31.0 Anion Gap 8 BUN 17 Creatinine 0.32 L Estimated GFR Greater than 89 POC Glucose 193 H Random Glucose 151 H Calcium 8.4 L Total Bilirubin 0.5 AST 11 L ALT 12 Alkaline Phosphatase 96 Total Protein 6.4 Albumin 2.8 L Result Diagrams: 01/19/18 04:30 01/19/18 04:30 Imaging: ITS Impressions Chest X-Ray 12/27/17 00:01 CONCLUSION: Persistent nonconsolidative airspace infiltrates in the left lower lung. Procedures: 12/19 g tube placement by IR 12/20 emergency tracheostomy 12/22 chemotherapy initiated 12/29 2nd dose chemo Assessment and Plan Pertinent Non-Medical Issues: Psychosocial: Pt was living with friend in apt. Per EMR has daughter Dianna and "friend" Jai. He is an [employer] . 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 Should he become incapacitate, he designated Jai and Dianna Dolan as HCS. He asks that his HCS not be contacted or updated currently. Ethical issues impacting care: none at this time Important Contacts: daughter Dianna Dolan [phone] "friend" Jai Dolan home [phone], cell [phone] Prognosis: This is a 62 yo male with COPD, DM, hx etoh & tobacco use, > 40 pack years diagnosed with head and neck cancer. He also has a lung mass which has yet to be biopsied. He has lost 30 lbs in the last 6 months and now requires tube feedings. Has tracheostomy for breathing b/c mass has encroached on his airway. He has started palliative chemotherapy which thus far is only transiently effective at shrinking tumor. It is planned that he begin radiation to his tumor. It is unclear a this time how effective chemotherapy and radiation will be. Given his underlying COPD and lung mass, his prognosis is guarded at best. He is at significant risk for complications and further decline. Code Status: Full Code Plan: - LEGAL DECISON MAKER - pt with trach and communication is difficult but he is alert, oriented, and appropriate, capacitated to make decisions. Should he become incapacitated, he designated Jai Dolan as primary and Dianna Dolan as secondary HCS. He continues to request his HCS not be contacted or updated. - CODE STATUS- FULL CODE - GOALS - aggressive - SYMPTOMS - * pain - 2/2 tumor, lines, tracheostomy. rated his pain 8/10 today but he did appear comfortable on exam. Has gabapentin 300mg q8h but refusing intermittently. scheduled roxanol 8mg q4h, PRn oxycodone 10mg q4h pain 3-5. Appears in the last 24h he has had 2mg IV morphine 56 mg roxanol in the last 24 hours. recommend starting low dose methadone 2.5mg q12h with no adjustments for 3-4 days to monitor for effectiveness. Continue other PRNs He is on telemetry for monitoring of QT interval. [ recommend decrease around the clock roxanol to 4mg PO Q 4 hr , after 2nd dose of methadone, and consider discontinuing after 3rd or 4th dose which would be day #08/03/] * dyspnea, secretions- / compromised airway. Has tracheostomy. Denies feeling SOB but indicates his secretions bother him, secretions have been persistent. Unlikely this could improve. Per RN he requires frequent suctioning. On scheduled symbicort, prn christina levsin. Recommend instructing him on use of Yankauer. * anxiety - multifactorial. flat affect, ambivalent, irritible. could be component of depression/anxiety. he wrote to RN today "I don't want to . " temazepam 15mg HS prn insomnia, which he has not recently requested. He also has 0.5 mg PRN alprazolam, has not requested it Although won't help in short term, could consider SSRI for longer term tx * nausea - multifactorial, undergoing chemo. today complains of nausea after admin roxanol, asking for IV meds. Denied vomiting. Has promethazine 25mg IM PRN breakthrough nausea, scopolamine patch, reglan 10mg q6h PRN, both PO and IV zofran PRN. Does not appear he has been requesting these. - Palliative care will continue to follow during hospital course as condition evolves, to assist patient/decision-maker with understanding of medical conditions, weighing benefits/burdens of treatment options, for clarification of goals of treatment. Additionally will assist with any symptoms of palliative concern Attestation Collaborating MD Comments: Chart reviewed. Case discussed with palliative care nurse practitioner. Above VENDING ROUTE SERVICER note reviewed and I concur. . Attestation: To help prompt me to consider important information that might be impacting today's encounter and assessment, information from prior notes written by myself or my colleagues may have been "brought forward" into today's note. My signature on this note, however, is an attestation that I personally performed the exam, history, and/or decision-making noted today, and, unless otherwise indicated, the interactions with patient, family, and staff as well as the review of records all occurred today. I also attest that the listed assessment and stated plan reflect my best clinical judgment today based on the combination of historical information, prior notes, and today's exam/ interactions. When time spent is documented, it refers only to time spent today by the signer, or if indicated, combined time spent today by collaborating physician/nurse practitioner.
--- NOTE | 2018-01-10 20:26 | P.PNPL ---
Subjective Interval history: 62 YO WM wit H&N CA,RF, Trach ON PSV, trach collar Tolerates TF Awake, follows commands Tongue swelling decreased Small to mod amount of trach secretions Physical Exam Vital signs: Vital Signs 01/09/18 21:00 01/09/18 21:33 01/09/18 22:00 Temperature Pulse Rate 97 H 95 H Respiratory Rate 26 H 24 Blood Pressure 121/66 Pulse Oximetry 91 L 96 91 L 01/09/18 22:07 01/09/18 23:00 01/10/18 00:00 Temperature 98.4 F Pulse Rate 86 91 H 93 H Respiratory Rate 16 18 16 Blood Pressure 108/61 100/66 116/66 Pulse Oximetry 98 97 90 L 01/10/18 01:00 01/10/18 02:00 01/10/18 03:00 Temperature Pulse Rate 96 H 98 H 87 Respiratory Rate 30 H 27 H 19 Blood Pressure 107/69 139/77 96/51 L Pulse Oximetry 96 94 L 97 01/10/18 04:00 01/10/18 05:00 01/10/18 06:00 Temperature 98.6 F Pulse Rate 88 89 95 H Respiratory Rate 15 16 20 Blood Pressure 128/70 120/74 Pulse Oximetry 99 85 L 01/10/18 06:01 01/10/18 07:00 01/10/18 07:01 Temperature Pulse Rate 100 H 91 H Respiratory Rate 19 19 Blood Pressure 117/79 136/76 Pulse Oximetry 85 L 99 100 01/10/18 08:00 01/10/18 08:03 01/10/18 09:00 Temperature 99.1 F Pulse Rate 92 H 86 91 H Respiratory Rate 36 H 27 H 16 Blood Pressure 120/67 120/67 104/62 Pulse Oximetry 87 L 89 L 100 01/10/18 09:39 01/10/18 09:41 01/10/18 10:00 Temperature Pulse Rate 92 H 83 Respiratory Rate 18 18 Blood Pressure 106/61 Pulse Oximetry 95 01/10/18 11:01 01/10/18 12:00 01/10/18 12:59 Temperature 99.2 F Pulse Rate 97 H 99 H Respiratory Rate 23 20 Blood Pressure 124/67 148/94 H Pulse Oximetry 97 01/10/18 13:16 01/10/18 14:00 01/10/18 16:00 Temperature 98.2 F Pulse Rate 100 H 103 H 103 H Respiratory Rate 24 20 22 Blood Pressure 127/73 Pulse Oximetry 100 80 L 79 L Intake & Output 01/10/18 01/10/18 01/11/18 06:59 18:59 06:59 Intake Total 2107 / 2107 933 / 933 Output Total 1000 / 1000 Balance 1107 / 1107 933 / 933 Weight 59.5 kg Intake: Oral 0 / 0 Tube Feeding 1307 / 1307 533 / 533 Water Bolus Amount 800 / 800 400 / 400 Output: Urine 450 / 450 Urine Amount (Catheter) 550 / 550 Condom 550 / 550 Other: # Voids 6 Date of Last Bowel Movement 01/10/18 01/10/18 # Bowel Movements 1 GENERAL: Elderly WM,Mild sob SKIN: Warm and dry. HEAD: Normocephalic. EYES: No scleral icterus. No injection or drainage. NECK: Supple, trachea midline. No JVD or lymphadenopathy. Neck mass Has Trach CARDIOVASCULAR: Regular rate and rhythm without murmurs, gallops, or rubs. RESPIRATORY: Breath sounds equal bilaterally. No accessory muscle use. GASTROINTESTINAL: Abdomen soft, non-tender, nondistended. Has PEG MUSCULOSKELETAL: No cyanosis, or edema. BACK: Nontender without obvious deformity. No CVA tenderness. - Urinary Catheter Management Indwelling Urethral Catheter Cath placed during this visit: yes, but has since been removed by the nurse Reason for continuing: Not indwelling catheter Insertion date: 12/20/17 Insertion time: 00:00 Removal date: 01/02/18 Removal time: 07:00 Condom Cath placed during this visit: yes Reason for continuing: Not indwelling catheter Insertion date: 01/07/18 Insertion time: 21:00 Assessment and Plan - Plan Resp failure S/P Emergent trach Neck Mass H&N Ca COPD PLAN: trach collar Fio2 increased to 60% Aerosol nebs cont Abx Tube feeding Scopolamine patch q 72 hrs Radiation treatment in AM
[2018-01-10] MEDS: Insulin Detemir Inj 1,000 UNIT/10 ML Vial SQ SCH (21:52)
[2018-01-10] MEDS: [UNRECOGNIZED DRUG - REMARK] T-DERMAL SCH (22:30)
[2018-01-10] MEDS: ALPRAZolam 0.5 MG Tablet G-TUBE PRN (22:31)
[2018-01-10] MEDS: Scopalamine 1.5 MG Patch T-DERMAL SCH (22:31)
[2018-01-11] MEDS: Morphine Sulfate Oral Liq 10 MG/0.5 ML Syringe G-TUBE SCH ×6 (00:27→22:18)
[2018-01-11] MEDS: Artificial Tears Opth Drops 15 ML Bottle EACH EYE SCH ×3 (00:29→18:18)
[2018-01-11] MEDS: Insulin NovoLOG Aspart Correctional Sugar Inj SQ SCH ×5 (00:32→23:40)
[2018-01-11] MEDS: Gabapentin Liq 250 MG/5 ML UDC PO SCH ×3 (05:25→22:22)
[2018-01-11] MEDS: Chlorhexidine Gluconate 0.12% Liq 15 ML UDC SWISH-SPIT SCH ×2 (09:06→22:20)
[2018-01-11] MEDS: Docusate Sodium Liq 100 MG/10 ML UDC G-TUBE SCH ×2 (09:06→22:19)
[2018-01-11] MEDS: Budesonide-Formoterol 160/4.5 MCG 6 GM Inhaler INH SCH ×2 (09:17→22:20)
--- NOTE | 2018-01-11 09:49 | P.PNIM ---
Subjective Interval history: in no acute distress. no fever. d/w the RN and no acute issues over night. Physical Exam Vital signs: Vital Signs 01/10/18 10:00 01/10/18 11:01 01/10/18 12:00 Temperature 99.2 F Pulse Rate 83 97 H 99 H Respiratory Rate 18 23 20 Blood Pressure 106/61 124/67 148/94 H Pulse Oximetry 95 01/10/18 12:59 01/10/18 13:16 01/10/18 14:00 Temperature Pulse Rate 100 H 103 H Respiratory Rate 24 20 Blood Pressure 127/73 Pulse Oximetry 97 100 80 L 01/10/18 16:00 01/10/18 20:00 01/10/18 21:14 Temperature 98.2 F 99.1 F Pulse Rate 103 H 108 H Respiratory Rate 22 19 Blood Pressure 116/68 Pulse Oximetry 79 L 99 99 01/10/18 23:09 01/11/18 00:00 01/11/18 03:59 Temperature 99.0 F Pulse Rate 91 H Respiratory Rate 16 Blood Pressure 142/54 H Pulse Oximetry 97 93 L 99 01/11/18 04:00 01/11/18 07:00 01/11/18 09:05 Temperature 99.1 F Pulse Rate 89 Respiratory Rate 21 Blood Pressure 103/52 L Pulse Oximetry 95 95 97 Intake & Output 01/10/18 01/11/18 01/11/18 18:59 06:59 18:59 Intake Total 933 / 933 847 / 847 Output Total 551 / 551 Balance 933 / 933 296 / 296 Weight 55.9 kg Intake: Oral 0 / 0 Tube Feeding 533 / 533 447 / 447 Water Bolus Amount 400 / 400 400 / 400 Output: Stool 1 / 1 Urine Amount (Catheter) 550 / 550 Condom 550 / 550 Other: # Voids 6 Date of Last Bowel Movement 01/10/18 01/10/18 # Bowel Movements 1 # Incontinent Bowel Movements 3 - Constitutional no acute distress - Routine Neck Exam Comments: trach in place. - Routine Respiratory Exam Present: CTA bilaterally - Routine Cardiovascular Exam Present: RRR - Routine Abdominal Exam Present: soft - Routine Extremities Exam Comments: no pedal edema. - Routine Neurological Exam Present: alert, oriented X3 - Urinary Catheter Management Indwelling Urethral Catheter Cath placed during this visit: yes, but has since been removed by the nurse Reason for continuing: Not indwelling catheter Insertion date: 12/20/17 Insertion time: 00:00 Removal date: 01/02/18 Removal time: 07:00 Condom Cath placed during this visit: yes Reason for continuing: Not indwelling catheter Insertion date: 01/07/18 Insertion time: 21:00 Results - Labs CBC & Chem 7: 01/10/18 06:15 01/10/18 06:15 Laboratory Results - last 24 hr 01/10/18 01/10/18 01/11/18 11:28 16:09 00:03 POC Glucose 193 H 156 H 160 H 01/11/18 05:22 POC Glucose 177 H - Procedures SP TRACH AND PEG Assessment and Plan - Plan Hypoxic respiratory failure, COPD exacerbation, head and neck cancer, lung mass with airway compromise-status post emergent tracheostomy 12/20/2017, presently on trach collar, continue Symbicort, Combivent, T-piece as tolerated. Pulmonary following. Levsin for secretions. On scopolamine. will add low dose methadone per palliative care recommendations. Head and neck cancer, squamous cell carcinoma right tonsil-hematology oncology following for chemotherapy at this time, preparing for XRT. Continue pain control. Continue narcotics, gabapentin, tizanidine and Tylenol. Nutrition-status post PEG placement 12/19/2017, continue Glucerna 1.5 at 65 cc/h with free water every 8 hours 200 cc. Hyperglycemia-continue sliding-scale insulin, hemoglobin A1c is 6.3, continue low-dose Levemir. Hyponatremia-mild - stable off of IVFs. ok with pulmonary to transfer. for transfer to floor. d/w the RN.
[2018-01-11] MEDS: Methadone Liq 10 MG/10 ML UDC PO SCH ×2 (11:32→22:21)
[2018-01-11] MEDS: Enoxaparin Inj 40 MG/0.4 ML Syringe SQ SCH (11:34)
--- NOTE | 2018-01-11 14:05 | P.PNPAL ---
Reason for Visit Reason for visit: a. To assist with evaluation and management of symptoms including: pain, dyspnea, anxiety, nausea b. To assist medical decision maker(s) with: better understanding of current medical conditions; weighing benefits/burdens of medical treatment options; making medical treatment decisions. Subjective Subjective/Interval History: Patient seen today to follow-up on comfort, pain level. Methadone was added earlier today by medical attending. Patient continues with weekly chemotherapy. Radiation treatment planning in progress. Remains on T-piece O2, breathing comfortably. Ordered for transfer out of ICU. Nursing reports patient more comfortable today. Decreased prn requirements in the past 24 hours. Last dose of morphine IV was yesterday morning. No additional PRN's have been required since that time. Nursing reporting pain scores from 6-10. First dose of methadone 2.5 mg was administered this morning. Patient seen in room. He is lethargic, sleeping soundly. He arouses somewhat to my exam. Ask him how he is feeling he shrugs his shoulders. Ask him if he feels his pain is better he again shrugs. Ask him if he can rate his pain for me he shrugs with his hands up, and then goes back to sleep. He appears much more comfortable and relaxed than prior interactions with him. Explained that a new pain medication has been added to his regimen and it is important that we reassess his comfort level but also wants to ensure that it is not making him too sleepy attempt to explore if he slept well last night as nursing notes indicate he did have some pain. Possible he is more tired today from lack of sleep in addition to starting of methadone. Discussed with medical attending : recommend decreasing [id number] scheduled Roxanol, and consider discontinuing completely tomorrow depending on patient's pain level, lethargy and overall status. Discussed with nursing, may need to hold later doses of scheduled Roxanol depending on patient's clinical condition, lethargy and pain levels. He has been started on lowest dose of methadone and certainly he is not opiate rosa at this point; however is difficult to ascertain how patient will tolerate methadone, even on the lowest dose. Advance Directives Health Care Surrogate Name and Number: primary WALE Dolan; secondary Dianna Dolan Objective Vital Signs: Vital Signs 01/10/18 14:00 01/10/18 16:00 01/10/18 20:00 Temperature 98.2 F 99.1 F Pulse Rate 103 H 103 H 108 H Respiratory Rate 20 22 19 Blood Pressure 116/68 Pulse Oximetry 80 L 79 L 99 01/10/18 21:14 01/10/18 23:09 01/11/18 00:00 Temperature 99.0 F Pulse Rate 91 H Respiratory Rate 16 Blood Pressure 142/54 H Pulse Oximetry 99 97 93 L 01/11/18 03:59 01/11/18 04:00 01/11/18 07:00 Temperature 99.1 F Pulse Rate 89 Respiratory Rate 21 Blood Pressure 103/52 L Pulse Oximetry 99 95 95 01/11/18 08:00 01/11/18 09:05 01/11/18 12:00 Temperature 98.9 F 98.7 F Pulse Rate 93 H 92 H Respiratory Rate 24 21 Blood Pressure 126/75 126/74 Pulse Oximetry 95 97 96 Intake & Output 01/10/18 01/11/18 01/11/18 18:59 06:59 18:59 Intake Total 933 / 933 847 / 847 Output Total 551 / 551 Balance 933 / 933 296 / 296 Weight 55.9 kg Intake: Oral 0 / 0 Tube Feeding 533 / 533 447 / 447 Water Bolus Amount 400 / 400 400 / 400 Output: Stool 1 / 1 Urine Amount (Catheter) 550 / 550 Condom 550 / 550 Other: # Voids 6 Date of Last Bowel Movement 01/10/18 01/10/18 01/10/18 # Bowel Movements 1 # Incontinent Bowel Movements 3 Physical Exam: CONSTITUTIONAL/GENERAL: mildly cachectic male, appears very comfortable, sleeping TUBES/LINES/DRAINS: port, trach to t-piece, PEG tube SKIN: sallow complexion. No wounds seen anteriorly other than face. Not diaphoretic. HEAD: Atraumatic. Disfigured right face and neck, mass appears smaller than previous exams EYES: Pupils equal and round and reactive. Extraocular motions intact. No scleral icterus. No injection or drainage. Fundi not examined. ENT: Hearing grossly normal. Nose without bleeding or purulent drainage. large mass right cheek extending down to neck, tongue protruding. + Copious oral secretions per NECK: mass right side. RESPIRATORY/CHEST: respirations unlabored, on T-piece. Breath sounds are clear. Equal bilaterally. GASTROINTESTINAL: Abdomen soft, flat, nondistended. Nontender. + PEG tube, with tube feed infusing. Bowel sounds present. MUSCULOSKELETAL: Extremities without clubbing, cyanosis, mottling NEUROLOGICAL: Lethargic. Arouses some of her my exam though does not stay awake. Shrugs shoulders and answer to my questions. Moves all 4 extremities. PSYCHIATRIC: flat affect, lethargic. Diagnostic Tests Laboratory: Laboratory Results - last 72 hr 01/08/18 01/08/18 01/08/18 13:52 18:04 23:51 WBC RBC Hgb Hct MCV MCH MCHC RDW Plt Count MPV Neut % (Auto) Lymph % (Auto) [place] % (Auto) Eos % (Auto) Baso % (Auto) Neut # (Auto) Lymph # (Auto) [place] # (Auto) Eos # (Auto) Baso # (Auto) WBC Differential Differential Comment Sodium 134 L Potassium 4.4 Chloride 94 L Carbon Dioxide 34.0 H Anion Gap 6 BUN 18 Creatinine 0.28 L Estimated GFR Greater than 89 POC Glucose 199 H 204 H Random Glucose 92 Calcium 8.8 Total Bilirubin AST ALT Alkaline Phosphatase Total Protein Albumin 01/09/18 01/09/18 01/09/18 05:25 12:52 16:42 WBC RBC Hgb Hct MCV MCH MCHC RDW Plt Count MPV Neut % (Auto) Lymph % (Auto) [place] % (Auto) Eos % (Auto) Baso % (Auto) Neut # (Auto) Lymph # (Auto) [place] # (Auto) Eos # (Auto) Baso # (Auto) WBC Differential Differential Comment Sodium Potassium Chloride Carbon Dioxide Anion Gap BUN Creatinine Estimated GFR POC Glucose 144 H 212 H 111 H Random Glucose Calcium Total Bilirubin AST ALT Alkaline Phosphatase Total Protein Albumin 01/09/18 01/10/18 01/10/18 23:57 05:26 06:15 WBC 17.9 H RBC 3.41 L Hgb 10.1 L Hct 30.6 L MCV 89.5 MCH 29.6 MCHC 33.0 RDW 15.4 Plt Count 350 MPV 8.5 Neut % (Auto) 80.6 H Lymph % (Auto) 11.8 [place] % (Auto) 6.8 Eos % (Auto) 0.4 Baso % (Auto) 0.4 Neut # (Auto) 14.4 H Lymph # (Auto) 2.1 [place] # (Auto) 1.2 H Eos # (Auto) 0.1 Baso # (Auto) 0.1 WBC Differential . Differential Comment Auto diff final Sodium Potassium Chloride Carbon Dioxide Anion Gap BUN Creatinine Estimated GFR POC Glucose 186 H 176 H Random Glucose Calcium Total Bilirubin AST ALT Alkaline Phosphatase Total Protein Albumin 01/10/18 01/10/18 01/10/18 06:15 11:28 16:09 WBC RBC Hgb Hct MCV MCH MCHC RDW Plt Count MPV Neut % (Auto) Lymph % (Auto) [place] % (Auto) Eos % (Auto) Baso % (Auto) Neut # (Auto) Lymph # (Auto) [place] # (Auto) Eos # (Auto) Baso # (Auto) WBC Differential Differential Comment Sodium 132 L Potassium 4.2 Chloride 93 L Carbon Dioxide 31.0 Anion Gap 8 BUN 17 Creatinine 0.32 L Estimated GFR Greater than 89 POC Glucose 193 H 156 H Random Glucose 151 H Calcium 8.4 L Total Bilirubin 0.5 AST 11 L ALT 12 Alkaline Phosphatase 96 Total Protein 6.4 Albumin 2.8 L 01/11/18 01/11/18 01/11/18 00:03 05:22 11:36 WBC RBC Hgb Hct MCV MCH MCHC RDW Plt Count MPV Neut % (Auto) Lymph % (Auto) [place] % (Auto) Eos % (Auto) Baso % (Auto) Neut # (Auto) Lymph # (Auto) [place] # (Auto) Eos # (Auto) Baso # (Auto) WBC Differential Differential Comment Sodium Potassium Chloride Carbon Dioxide Anion Gap BUN Creatinine Estimated GFR POC Glucose 160 H 177 H 141 H Random Glucose Calcium Total Bilirubin AST ALT Alkaline Phosphatase Total Protein Albumin Result Diagrams: 01/19/18 04:30 01/19/18 04:30 Procedures: 12/19 g tube placement by IR 12/20 emergency tracheostomy 12/22 chemotherapy initiated 12/29 2nd dose chemo Assessment and Plan Pertinent Non-Medical Issues: Psychosocial: Pt was living with friend in apt. Per EMR has daughter Dianna and "friend" Jai. He is an [employer] . Spiritual: declined purchasing manager support Legal: Pt is currently capacitated to make decisions however communication is difficult. Should he become incapacitate, he designated Jai and Dianna Dolan as HCS. He asks that his HCS not be contacted or updated currently. Ethical issues impacting care: none at this time Important Contacts: daughter Dianna Dolan [phone] "friend" Jai Dolan home [phone], cell [phone] Prognosis: This is a 62 yo male with COPD, DM, hx etoh & tobacco use, > 40 pack years diagnosed with head and neck cancer. He also has a lung mass which has yet to be biopsied. He has lost 30 lbs in the last 6 months and now requires tube feedings. Has tracheostomy for breathing b/c mass has encroached on his airway. He has started palliative chemotherapy which thus far is only transiently effective at shrinking tumor. It is planned that he begin radiation to his tumor. It is unclear a this time how effective chemotherapy and radiation will be. Given his underlying COPD and lung mass, his prognosis is guarded at best. He is at significant risk for complications and further decline. Code Status: Full Code Plan: - LEGAL DECISION MAKER - pt with trach and communication is difficult but he is alert, oriented, and appropriate, capacitated to make decisions. Should he become incapacitated, he designated Jai Dolan as primary and Dianna Dolan as secondary HCS. He continues to request his HCS not be contacted or updated. - CODE STATUS- FULL CODE - GOALS - aggressive - SYMPTOMS - * pain - 2/2 tumor, lines, tracheostomy. rated his pain 8/10 today but he did appear comfortable on exam. Has gabapentin 300mg q8h but refusing intermittently. scheduled roxanol 8mg q4h, PRn oxycodone 10mg q4h pain 3-5. Appears in the last 24h he has had 2mg IV morphine 56 mg roxanol in the last 24 hours. recommend starting low dose methadone 2.5mg q12h with no adjustments for 3-4 days to monitor for effectiveness. This is been started 01/11/18 first dose 11 AM. Continue other PRNs He is on telemetry for monitoring of QT interval. Patient appears much more comfortable today already, somewhat lethargic not clear if this is related to first dose of methadone. Discussed w medical attending recommendations to decrease [id number] Roxanol to half the dose this evening after/around time of second dose methadone. rec. 4mg PEG Q 6 HR scheduled.(these changes have been entered to start 1999 today, last 8mg dose Roxanol to be given @ 1600) Further, may need to completely discontinue [id number] Roxanol dosing tomorrow 01/12/18 which would be day 2 (doses #3 , 4) on scheduled methadone, or subsequent doses today made need to be held if patient with significant lethargy, discussed with nursing. [ methadone recommendation because can serve as a long-acting agent , as patient is currently unable to swallow extended release forms of medication. He had been consistently taking more than 50 oral morphine equivalents a day for pain, and this was not generally controlling his pain even at that level. Methadone can be good as a long-acting agent to avoid such frequent prn or scheduled dosing. Ideally, with continued XRT and chemotherapy he would have decreased tumor burden, and be able to swallow again, and would be able to take long-acting MS Contin 15-30 mg every [address] the methadone.] * dyspnea, secretions- 2/2 compromised airway. Has tracheostomy. Denies feeling SOB but indicates his secretions bother him, secretions have been persistent. Unlikely this could improve. Per RN he requires frequent suctioning. On scheduled symbicort, prn michael vasquez. pt using [employer]. * anxiety - multifactorial. flat affect, ambivalent, irritible. could be component of depression/anxiety. he wrote to RN today "I don't want to . " temazepam 15mg HS prn insomnia, which he has not recently requested. He also has 0.5 mg PRN alprazolam, has not requested it Although won't help in short term, could consider SSRI for longer term tx if pt amenable * nausea - multifactorial, undergoing chemo. yesterday complains of nausea after admin roxanol, asking for IV meds. Denied vomiting. Has promethazine 25mg IM PRN breakthrough nausea, scopolamine patch, reglan 10mg q6h PRN, both PO and IV zofran PRN. Does not appear he has been requesting these. nursing reports no n/v today . - Palliative care will continue to follow during hospital course as condition evolves, to assist patient/decision-maker with understanding of medical conditions, weighing benefits/burdens of treatment options, for clarification of goals of treatment. Additionally will assist with any symptoms of palliative concern Time Spent Total Floor Time (mins): 30 (Chart review, PE, discussion with nursing, discussion with medical attending) Attestation Collaborating MD Comments: Chart reviewed. Case discussed with palliative care nurse practitioner. Above IRRIGATING PUMP OPERATOR note reviewed and I concur. . Attestation: To help prompt me to consider important information that might be impacting today's encounter and assessment, information from prior notes written by myself or my colleagues may have been "brought forward" into today's note. My signature on this note, however, is an attestation that I personally performed the exam, history, and/or decision-making noted today, and, unless otherwise indicated, the interactions with patient, family, and staff as well as the review of records all occurred today. I also attest that the listed assessment and stated plan reflect my best clinical judgment today based on the combination of historical information, prior notes, and today's exam/ interactions. When time spent is documented, it refers only to time spent today by the signer, or if indicated, combined time spent today by collaborating physician/nurse practitioner.
[2018-01-11] MEDS: Morphine Inj 4 MG/ML Vial IV.PUSH PRN (16:43)
[2018-01-11] MEDS: ALPRAZolam 0.5 MG Tablet G-TUBE PRN (16:43)
--- NOTE | 2018-01-11 18:19 | P.PNONC ---
Subjective Interval history: Awake alert at the time of the evaluation. Expressed ambivalence regarding questions for pain control. Discussed with nursing he was apparently agitated during the radiation transportation and treatment. Objective Vital Signs/Intake & Output: Vital Signs 01/10/18 20:00 01/10/18 21:14 01/10/18 23:09 Temperature 99.1 F Pulse Rate 108 H Respiratory Rate 19 Blood Pressure 116/68 Pulse Oximetry 99 99 97 01/11/18 00:00 01/11/18 03:59 01/11/18 04:00 Temperature 99.0 F 99.1 F Pulse Rate 91 H 89 Respiratory Rate 16 21 Blood Pressure 142/54 H 103/52 L Pulse Oximetry 93 L 99 95 01/11/18 07:00 01/11/18 08:00 01/11/18 09:05 Temperature 98.9 F Pulse Rate 93 H Respiratory Rate 24 Blood Pressure 126/75 Pulse Oximetry 95 95 97 01/11/18 12:00 Temperature 98.7 F Pulse Rate 92 H Respiratory Rate 21 Blood Pressure 126/74 Pulse Oximetry 96 Intake & Output 01/10/18 01/11/18 01/11/18 18:59 06:59 18:59 Intake Total 933 / 933 847 / 847 Output Total 551 / 551 Balance 933 / 933 296 / 296 Weight 55.9 kg Intake: Oral 0 / 0 Tube Feeding 533 / 533 447 / 447 Water Bolus Amount 400 / 400 400 / 400 Output: Stool 1 / 1 Urine Amount (Catheter) 550 / 550 Condom 550 / 550 Other: # Voids 6 Date of Last Bowel Movement 01/10/18 01/10/18 01/10/18 # Bowel Movements 1 # Incontinent Bowel Movements 3 Result Diagrams: 01/10/18 06:15 01/10/18 06:15 Laboratory Results: Laboratory Results - last 24 hr 01/11/18 01/11/18 01/11/18 00:03 05:22 11:36 POC Glucose 160 H 177 H 141 H Medications: Active Medications Generic Name Dose Route Start Last Admin Trade Name Freq PRN Reason Stop Dose Admin Acetaminophen 650 mg 12/25/17 00:01 12/27/17 14:26 Tylenol PO 650 mg Q6H PRN Administration FEVER/PAIN SCALE 1 to 2 Albuterol 2.5 mg 12/26/17 16:04 01/02/18 04:06 Albuterol Neb (Prn) NEB 2.5 mg Q2HR NEB PRN Administration DYSPNEA Alprazolam 0.5 mg 12/25/17 00:01 01/11/18 16:43 Xanax G-TUBE 0.5 mg Q6H PRN Administration Anxiety/Agitation Artificial Tears 1 drop 12/26/17 17:00 01/11/18 09:18 Tears Naturale Opth Drops EACH EYE Not Given Q8H COUNT INCLUDES THE [facility] Budesonide/Formoterol Fumarate 2 puff 12/25/17 09:00 01/11/18 09:17 Symbicort 160/4.5 Mcg Inh INH Not Given BID COUNT INCLUDES THE [facility] Chlorhexidine Gluconate 15 ml 12/25/17 09:00 01/11/18 09:06 Peridex 0.12% Liq SWISH-SPIT 15 ml BID BRENDEN Administration Docusate Sodium 100 mg 12/26/17 21:00 01/11/18 09:06 Colace Liq G-TUBE 100 mg BID BRENDEN Administration Enoxaparin Sodium 40 mg 01/04/18 12:00 01/11/18 11:34 Lovenox Inj SQ 40 mg Q24H BRENDEN Administration Gabapentin 300 mg 12/29/17 08:15 01/11/18 15:21 Neurontin Liq PO 300 mg Q8HR BRENDEN Administration Hyoscyamine 0.25 mg 01/03/18 18:00 01/11/18 11:32 Levsin PO 0.25 mg Q6HR BRENDEN Administration Insulin Aspart 0 unit 12/26/17 18:00 01/11/18 11:36 Novolog Insulin Suppl Scale Inj SQ Not Given Q6HR COUNT INCLUDES THE [facility] Protocol Insulin Detemir 6 unit 01/04/18 21:00 01/10/18 21:52 Levemir Inj SQ 6 unit HS BRENDEN Administration Lansoprazole 30 mg 12/27/17 09:00 01/11/18 09:07 Prevacid Solutab NG/OG 30 mg DAILY BRENDEN Administration Methadone HCl 2.5 mg 01/11/18 11:00 01/11/18 11:32 Methadone Liq PO 2.5 mg Q12H BRENDEN Administration Morphine Sulfate 2 mg 12/28/17 08:36 01/11/18 16:43 Morphine Inj IV.PUSH 2 mg Q2H PRN Administration PAIN SCALE 5-10/SEVERE COUGH Ondansetron HCl 4 mg 12/25/17 17:35 12/31/17 17:30 Zofran Odt PO 4 mg Q6H PRN Administration NAUSEA OR VOMITING Ondansetron HCl 4 mg 01/01/18 20:02 01/02/18 06:38 Zofran Inj IV.PUSH 4 mg Q6H PRN Administration NAUSEA Oxycodone HCl 10 mg 12/25/17 00:01 01/06/18 17:59 Roxicodone PO 10 mg Q4H PRN Administration Pain Scale 3 to 5 Patch Removal 1 each 01/04/18 20:00 01/10/18 22:30 Remove Old Patch T-DERMAL Not Given Q72H BRENDEN Scopolamine 1 patch 01/04/18 20:00 01/10/18 22:31 Transderm-Scop 1.5 Mg Patch.72hr T-DERMAL Not Given Q72H BRENDEN Sodium Chloride 2 ml 12/25/17 09:00 01/11/18 09:08 Ns Flush IV.FLUSH 2 ml BID BRENDEN Administration Sterile Water 200 ml 12/25/17 06:00 01/11/18 15:22 Free Water G-TUBE 200 ml Q8HR BRENDEN Administration Temazepam 15 mg 12/25/17 18:35 01/04/18 02:49 Restoril NG/OG 15 mg HS PRN Administration INSOMNIA Tizanidine HCl 4 mg 12/29/17 09:00 01/11/18 09:06 Zanaflex PO 4 mg Q12HR BRENDEN Administration Objective Remarks: GENERAL: Cachectic, chronically ill-appearing man who looks older than stated age. SKIN: Warm and dry. Prominent tongue with dry crust on the tip. Improved from previous. HEAD: Normocephalic. Right neck mass. EYES: No scleral icterus. No injection or drainage. NECK: Supple, trachea midline. No JVD or lymphadenopathy. LYMPHATIC: No adenopathy. Port site in the right chest wall. CARDIOVASCULAR: Regular rate and rhythm without murmurs. RESPIRATORY: Breath sounds equal bilaterally. No accessory muscle use. GASTROINTESTINAL: Abdomen scaphoid. PEG tube in the left upper quadrant. EXTREMITIES: No cyanosis, or edema. MUSCULOSKELETAL: Adequate muscle tone. NEUROLOGICAL: No obvious focal deficit. Awake, alert, and oriented x3. 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 A delay in his treatment coordinated by the [facility] resulted in his presentation to this hospital with a symptomatic large right neck and base of tongue/tonsil mass. C1 carbo/taxol 12/22 C2 12/29 C3 01/06 Plan: 1. Patient tolerated week 3 palliative carbo/taxol on 01/06, next dose planned for 01/13 pending blood counts appropriate. Discussed with radiation oncology. Physicist approved treatment and requested patient on Tuesday. Patient may need to radiation today. 2. No transfusion needed for the anemia. 3. Palliative care managing his pain. Noted methadone started. Defer to palliative care for adjustments made to his breakthrough. Lethargy improved this evening. 5. Tacheostomy inplace 6. Anxiety medication administered prior to radiation. Anticipate continue to premedicate prior to going to radiation. Change anxiety medicine to lorazepam which has a longer half-life. Xanax is discontinued.
[2018-01-11] MEDS ORDERED: LORazepam 0.5 MG Tablet G-TUBE PRN (18:20)
--- NOTE | 2018-01-11 20:39 | P.PNPL ---
Subjective Interval history: 62 YO WM wit H&N CA,RF, Trach ON PSV, trach collar Tolerates TF Awake, follows commands Tongue swelling decreased Small to mod amount of trach secretions Went for radiation today Physical Exam Vital signs: Vital Signs 01/10/18 21:14 01/10/18 23:09 01/11/18 00:00 Temperature 99.0 F Pulse Rate 91 H Respiratory Rate 16 Blood Pressure 142/54 H Pulse Oximetry 99 97 93 L 01/11/18 03:59 01/11/18 04:00 01/11/18 07:00 Temperature 99.1 F Pulse Rate 89 Respiratory Rate 21 Blood Pressure 103/52 L Pulse Oximetry 99 95 95 01/11/18 08:00 01/11/18 09:05 01/11/18 12:00 Temperature 98.9 F 98.7 F Pulse Rate 93 H 92 H Respiratory Rate 24 21 Blood Pressure 126/75 126/74 Pulse Oximetry 95 97 96 01/11/18 16:00 Temperature 98.7 F Pulse Rate 97 H Respiratory Rate 17 Blood Pressure 108/63 Pulse Oximetry 96 Intake & Output 01/11/18 01/11/18 01/12/18 06:59 18:59 06:59 Intake Total 847 / 847 650 / 650 Output Total 551 / 551 750 / 750 Balance 296 / 296 -100 / -100 Weight 55.9 kg Intake: Oral 0 / 0 0 / 0 Tube Feeding 447 / 447 250 / 250 Water Bolus Amount 400 / 400 400 / 400 Output: Urine 750 / 750 Stool 1 / 1 0 / 0 Urine Amount (Catheter) 550 / 550 Condom 550 / 550 Other: Date of Last Bowel Movement 01/10/18 01/10/18 # Bowel Movements 1 0 # Incontinent Bowel Movements 3 0 GENERAL: Elderly WM,NAD SKIN: Warm and dry. HEAD: Normocephalic. EYES: No scleral icterus. No injection or drainage. NECK: Supple, trachea midline. No JVD or lymphadenopathy. Neck mass Trach in place CARDIOVASCULAR: Regular rate and rhythm without murmurs, gallops, or rubs. RESPIRATORY: Breath sounds equal bilaterally. No accessory muscle use. GASTROINTESTINAL: Abdomen soft, non-tender, nondistended. has PEG MUSCULOSKELETAL: No cyanosis, or edema. BACK: Nontender without obvious deformity. No CVA tenderness. - Urinary Catheter Management Indwelling Urethral Catheter Cath placed during this visit: yes, but has since been removed by the nurse Reason for continuing: Not indwelling catheter Insertion date: 12/20/17 Insertion time: 00:00 Removal date: 01/02/18 Removal time: 07:00 Condom Cath placed during this visit: yes Reason for continuing: Not indwelling catheter Insertion date: 01/07/18 Insertion time: 21:00 Assessment and Plan - Plan Resp failure S/P Emergent trach Neck Mass H&N Ca COPD PLAN: trach collar Fio2 increased to 60% Aerosol nebs cont Abx Tube feeding Scopolamine patch q 72 hrs
[2018-01-11] MEDS: Insulin Detemir Inj 1,000 UNIT/10 ML Vial SQ SCH (22:19)
[2018-01-12] MEDS: Artificial Tears Opth Drops 15 ML Bottle EACH EYE SCH ×3 (00:36→18:12)
[2018-01-12] MEDS: Morphine Sulfate Oral Liq 10 MG/0.5 ML Syringe G-TUBE SCH ×4 (02:13→19:52)
[2018-01-12 04:10] LABS: Baso # (Auto) 0.1 th/mm3 (0.0-0.2); Baso % (Auto) 0.4 % (0.0-2.0); Eos # (Auto) 0.1 th/mm3 (0.0-0.4); Eos % (Auto) 0.4 % (0.0-4.0); Hematocrit 32.9 % (39.0-51.0); Hemoglobin 10.9 gm/dL (13.0-17.0); Lymph # (Auto) 1.7 th/mm3 (1.0-4.8); Lymph % (Auto) 8.8 % (9.0-44.0); Mean Corpuscular HGB Conc 32.9 % (32.0-36.0); Mean Corpuscular Hemoglobin 29.2 pg (27.0-34.0); Mean Corpuscular Volume 88.6 fL (80.0-100.0); Mean Platelet Volume 8.5 fL (7.0-11.0); Mono # (Auto) 2.2 th/mm3 (0.0-0.9); Mono % (Auto) 11.7 % (0.0-8.0); Neut # (Auto) 15.1 th/mm3 (1.8-7.7); Neut % (Auto) 78.7 % (16.0-70.0); Platelet Count 407 th/mm3 (150-450); Red Blood Count 3.72 mil/mm3 (4.50-5.90); White Blood Count 19.2 th/mm3 (4.0-11.0)
[2018-01-12 04:47] LABS: Anion Gap 4 meq/L (5-15); Blood Urea Nitrogen 24 mg/dL (7-18); Calcium 8.9 mg/dL (8.5-10.1); Carbon Dioxide 33.2 meq/L (21.0-32.0); Chloride 94 meq/L (98-107); Glomerular Filtration Rate Greater Than 89 mL/min (>89); Glucose,Random 131 mg/dL (74-106); Potassium 4.5 meq/L (3.5-5.1); Sodium 131 meq/L (136-145)
[2018-01-12] MEDS: Gabapentin Liq 250 MG/5 ML UDC PO SCH ×3 (06:12→22:02)
[2018-01-12] MEDS: Insulin NovoLOG Aspart Correctional Sugar Inj SQ SCH ×3 (06:16→17:12)
[2018-01-12] MEDS: Chlorhexidine Gluconate 0.12% Liq 15 ML UDC SWISH-SPIT SCH ×2 (08:26→22:02)
[2018-01-12] MEDS: Docusate Sodium Liq 100 MG/10 ML UDC G-TUBE SCH ×2 (08:26→22:02)
[2018-01-12] MEDS: Budesonide-Formoterol 160/4.5 MCG 6 GM Inhaler INH SCH ×2 (08:27→22:04)
--- NOTE | 2018-01-12 08:47 | P.PNIM ---
Subjective Interval history: in no acute distress. has mild lower abdomen/ suprapubic pain. no fever. for radiation today. d/w the RN. Physical Exam Vital signs: Vital Signs 01/11/18 09:05 01/11/18 12:00 01/11/18 16:00 Temperature 98.7 F 98.7 F Pulse Rate 92 H 97 H Respiratory Rate 21 17 Blood Pressure 126/74 108/63 Pulse Oximetry 97 96 96 01/11/18 19:00 01/11/18 19:47 01/11/18 20:00 Temperature 99.1 F Pulse Rate 101 H Respiratory Rate 18 Blood Pressure 108/68 Pulse Oximetry 96 94 L 96 01/12/18 00:00 01/12/18 04:00 01/12/18 07:00 Temperature 98.7 F 99.0 F Pulse Rate 91 H 75 Respiratory Rate 17 22 Blood Pressure 100/56 L 109/54 L Pulse Oximetry 96 75 L 97 Intake & Output 01/11/18 01/12/18 01/12/18 18:59 06:59 18:59 Intake Total 650 / 650 1037 / 1037 Output Total 750 / 750 575 / 575 Balance -100 / -100 462 / 462 Weight 58.5 kg Intake: Oral 0 / 0 0 / 0 Tube Feeding 250 / 250 637 / 637 Water Bolus Amount 400 / 400 400 / 400 Output: Urine 750 / 750 Stool 0 / 0 Urine Amount (Catheter) 575 / 575 Condom 575 / 575 Other: Date of Last Bowel Movement 01/10/18 01/12/18 # Bowel Movements 0 1 # Incontinent Bowel Movements 0 1 - Constitutional no acute distress - Routine Neck Exam Present: swelling (right neck.) - Routine Respiratory Exam Present: CTA bilaterally - Routine Cardiovascular Exam Present: RRR - Routine Abdominal Exam Present: soft, tenderness (minimal to mild suprapubic tenderness.) Comments: mild erythema and discharge around the PEG site. - Routine Extremities Exam Comments: no pedal edema. - Urinary Catheter Management Indwelling Urethral Catheter Cath placed during this visit: yes, but has since been removed by the nurse Reason for continuing: Not indwelling catheter Insertion date: 12/20/17 Insertion time: 00:00 Removal date: 01/02/18 Removal time: 07:00 Condom Cath placed during this visit: yes Reason for continuing: Not indwelling catheter Insertion date: 01/07/18 Insertion time: 21:00 Results - Labs CBC & Chem 7: 01/12/18 03:30 01/12/18 03:30 Laboratory Results - last 24 hr 01/11/18 01/11/18 01/11/18 11:36 18:15 23:35 WBC RBC Hgb Hct MCV MCH MCHC RDW Plt Count MPV Prelim Diff (Auto) Neut % (Auto) Lymph % (Auto) [place] % (Auto) Eos % (Auto) Baso % (Auto) Neut # (Auto) Lymph # (Auto) [place] # (Auto) Eos # (Auto) Baso # (Auto) WBC Differential Diff Scan Differential Comment Sodium Potassium Chloride Carbon Dioxide Anion Gap BUN Creatinine Estimated GFR POC Glucose 141 H 205 H 181 H Random Glucose Calcium 01/12/18 01/12/18 01/12/18 03:30 03:30 06:08 WBC 19.2 H RBC 3.72 L Hgb 10.9 L Hct 32.9 L MCV 88.6 MCH 29.2 MCHC 32.9 RDW 15.0 Plt Count 407 MPV 8.5 Prelim Diff (Auto) Slide review pending Neut % (Auto) 78.7 H Lymph % (Auto) 8.8 L [place] % (Auto) 11.7 H Eos % (Auto) 0.4 Baso % (Auto) 0.4 Neut # (Auto) 15.1 H Lymph # (Auto) 1.7 [place] # (Auto) 2.2 H Eos # (Auto) 0.1 Baso # (Auto) 0.1 WBC Differential . Diff Scan Auto diff confirmed Differential Comment . Sodium 131 L Potassium 4.5 Chloride 94 L Carbon Dioxide 33.2 H Anion Gap 4 L BUN 24 H Creatinine 0.31 L Estimated GFR Greater than 89 POC Glucose 189 H Random Glucose 131 H Calcium 8.9 - Procedures SP TRACH AND PEG Assessment and Plan - Plan Hypoxic respiratory failure, COPD exacerbation, head and neck cancer, lung mass with airway compromise-status post emergent tracheostomy 12/20/2017, presently on trach collar, continue Symbicort, Combivent, T-piece as tolerated. Pulmonary following. Levsin for secretions. On scopolamine. Head and neck cancer, squamous cell carcinoma right tonsil- oncology f/u appreciated; plan for palliative chemo- to be resume tomorrow. radiation therapy started. started on low dose methadone- palliative care managing the pain regimen. Nutrition-status post PEG placement 12/19/2017, continue Glucerna 1.5 at 65 cc/h with free water every 8 hours 200 cc. will send the fluid culture from the PEG site. Hyperglycemia-continue sliding-scale insulin, hemoglobin A1c is 6.3, continue low-dose Levemir. Hyponatremia-mild - stable . ok with pulmonary to transfer. for transfer to floor. d/w the RN. Discharge Planning: when has clinically improved and cleared by consultants.
[2018-01-12 10:06] LABS: Bacteria,Urine Many /hpf; Bilirubin,Urine Negative (Negative); Clarity,Urine Turbid (Clear); Color,Urine Amber (Yellw/Straw); Glucose,Urine (UA) Negative (Negative); Leukocyte Esterase,Urine Large (Negative); Nitrite,Urine Positive (Negative); Specific Gravity,Urine 1.015 (1.002-1.035); Squamous Epithelial Cell,Urine 2 /hpf (0-5)
[2018-01-12] MEDS: Methadone Liq 10 MG/10 ML UDC PO SCH (12:58)
[2018-01-12] MEDS: Enoxaparin Inj 40 MG/0.4 ML Syringe SQ SCH (12:59)
--- NOTE | 2018-01-12 13:33 | P.PNPAL ---
Reason for Visit Reason for visit: a. To assist with evaluation and management of symptoms including: pain, dyspnea, anxiety, nausea b. To assist medical decision maker(s) with: better understanding of current medical conditions; weighing benefits/burdens of medical treatment options; making medical treatment decisions. Subjective Subjective/Interval History: Pt is napping, appears comfortable, no grimacing. Indicated that he did not have pain. He was unable to further quantify or qualify his pain. He was started on methadone yesterday, has had total of 3 doses. Reportedly he became quite agitated yesterday on way to radiation treatment. Pre- medication initiated for today and he refused to go today even with pre- meds. He was barely able to communicate with us via writing; could not identify the paper or pen, was writing with imaginary pen. This is a change from prior visits as he has generally been able to write sentences. Explained purpose of chemo, radiation treatments. He could not tell us why he was refusing radiation. He did finally write that he didn't want to . Pt refused grooming and exercise with OT. Seems to have increased upper airway congestion today, more coughing. +Rhonchi on exam. Family/Friend Interactions: Spoke with [facility] Jai Dolan on phone, reviewed: -HCS understanding of the current medical problems -brief review of prognosis -Patients goals of care as best understood from conversations -Current medical treatment options and benefits/burdens of those options - reviewed role of chemo and radiation in shrinking tumor -Likely scenarios comparing ongoing aggressive care with a transition to `` comfort-measures only and/or hospice - Legal decision makers/HCS reviewed - explained that if pt status does not improve Jai may have to start making decisions - Jai hopeful that seeing and talking with pt will be helpful -Questions answered to the best of my ability - Palliative care contact information provided Advance Directives Health Care Surrogate Name and Number: primary [facility] Jai Magdaleno; secondary Dianna Dolan Objective Vital Signs: Vital Signs 01/11/18 16:00 01/11/18 19:00 01/11/18 19:47 Temperature 98.7 F Pulse Rate 97 H Respiratory Rate 17 Blood Pressure 108/63 Pulse Oximetry 96 96 94 L 01/11/18 20:00 01/12/18 00:00 01/12/18 04:00 Temperature 99.1 F 98.7 F 99.0 F Pulse Rate 101 H 91 H 75 Respiratory Rate 18 17 22 Blood Pressure 108/68 100/56 L 109/54 L Pulse Oximetry 96 96 75 L 01/12/18 07:00 01/12/18 08:00 01/12/18 12:00 Temperature 99.2 F Pulse Rate 108 H 110 H Respiratory Rate 17 22 Blood Pressure 111/68 Pulse Oximetry 97 95 Intake & Output 01/11/18 01/12/18 01/12/18 18:59 06:59 18:59 Intake Total 650 / 650 1037 / 1037 Output Total 750 / 750 575 / 575 Balance -100 / -100 462 / 462 Weight 58.5 kg Intake: Oral 0 / 0 0 / 0 Tube Feeding 250 / 250 637 / 637 Water Bolus Amount 400 / 400 400 / 400 Output: Urine 750 / 750 Stool 0 / 0 Urine Amount (Catheter) 575 / 575 Condom 575 / 575 Other: Date of Last Bowel Movement 01/10/18 01/12/18 01/12/18 # Bowel Movements 0 1 # Incontinent Bowel Movements 0 1 Physical Exam: CONSTITUTIONAL/GENERAL: mildly cachectic TUBES/LINES/DRAINS: port, trach to t-piece SKIN: sallow complexion No wounds seen anteriorly other than face. Not diaphoretic. HEAD: Atraumatic. Disfigured right face and neck, mass appears smaller than previous exams EYES: PERRL. Extraocular motions intact. No scleral icterus. No injection or drainage. Fundi not examined. ENT: Hearing grossly normal. Nose without bleeding or purulent drainage. large mass right cheek extending down to neck. white patches seen on tongue NECK: mass right side. RESPIRATORY/CHEST: respirations unlabored, audible upper respiratory congestion. +rhonchi GASTROINTESTINAL: Abdomen soft, nontender, nondistended, +BS. + PEG tube with small circumferential area erythema, crust MUSCULOSKELETAL: LLE cool with mottling NEUROLOGICAL: lethargic, somewhat confused. Moves all extremities. PSYCHIATRIC: flat affect Diagnostic Tests Laboratory: Laboratory Results - last 72 hr 01/09/18 01/09/18 01/10/18 16:42 23:57 05:26 WBC RBC Hgb Hct MCV MCH MCHC RDW Plt Count MPV Prelim Diff (Auto) Neut % (Auto) Lymph % (Auto) [place] % (Auto) Eos % (Auto) Baso % (Auto) Neut # (Auto) Lymph # (Auto) [place] # (Auto) Eos # (Auto) Baso # (Auto) WBC Differential Diff Scan Differential Comment Sodium Potassium Chloride Carbon Dioxide Anion Gap BUN Creatinine Estimated GFR POC Glucose 111 H 186 H 176 H Random Glucose Calcium Total Bilirubin AST ALT Alkaline Phosphatase Total Protein Albumin Urine Color Urine Clarity Urine pH Ur Specific [place] Urine Protein Urine Glucose (UA) Urine Ketones Urine Occult Blood Urine Nitrate Urine Bilirubin Urine Urobilinogen Ur Leukocyte Esterase Urine RBC Urine WBC Urine WBC Clumps Ur Squamous Epith Cells Urine Bacteria Micro UA Comment Urine Culture Comments 01/10/18 01/10/18 01/10/18 06:15 06:15 11:28 WBC 17.9 H RBC 3.41 L Hgb 10.1 L Hct 30.6 L MCV 89.5 MCH 29.6 MCHC 33.0 RDW 15.4 Plt Count 350 MPV 8.5 Prelim Diff (Auto) Neut % (Auto) 80.6 H Lymph % (Auto) 11.8 [place] % (Auto) 6.8 Eos % (Auto) 0.4 Baso % (Auto) 0.4 Neut # (Auto) 14.4 H Lymph # (Auto) 2.1 [place] # (Auto) 1.2 H Eos # (Auto) 0.1 Baso # (Auto) 0.1 WBC Differential . Diff Scan Differential Comment Auto diff final Sodium 132 L Potassium 4.2 Chloride 93 L Carbon Dioxide 31.0 Anion Gap 8 BUN 17 Creatinine 0.32 L Estimated GFR Greater than 89 POC Glucose 193 H Random Glucose 151 H Calcium 8.4 L Total Bilirubin 0.5 AST 11 L ALT 12 Alkaline Phosphatase 96 Total Protein 6.4 Albumin 2.8 L Urine Color Urine Clarity Urine pH Ur Specific [place] Urine Protein Urine Glucose (UA) Urine Ketones Urine Occult Blood Urine Nitrate Urine Bilirubin Urine Urobilinogen Ur Leukocyte Esterase Urine RBC Urine WBC Urine WBC Clumps Ur Squamous Epith Cells Urine Bacteria Micro UA Comment Urine Culture Comments 01/10/18 01/11/18 01/11/18 16:09 00:03 05:22 WBC RBC Hgb Hct MCV MCH MCHC RDW Plt Count MPV Prelim Diff (Auto) Neut % (Auto) Lymph % (Auto) [place] % (Auto) Eos % (Auto) Baso % (Auto) Neut # (Auto) Lymph # (Auto) [place] # (Auto) Eos # (Auto) Baso # (Auto) WBC Differential Diff Scan Differential Comment Sodium Potassium Chloride Carbon Dioxide Anion Gap BUN Creatinine Estimated GFR POC Glucose 156 H 160 H 177 H Random Glucose Calcium Total Bilirubin AST ALT Alkaline Phosphatase Total Protein Albumin Urine Color Urine Clarity Urine pH Ur Specific [place] Urine Protein Urine Glucose (UA) Urine Ketones Urine Occult Blood Urine Nitrate Urine Bilirubin Urine Urobilinogen Ur Leukocyte Esterase Urine RBC Urine WBC Urine WBC Clumps Ur Squamous Epith Cells Urine Bacteria Micro UA Comment Urine Culture Comments 01/11/18 01/11/18 01/11/18 11:36 18:15 23:35 WBC RBC Hgb Hct MCV MCH MCHC RDW Plt Count MPV Prelim Diff (Auto) Neut % (Auto) Lymph % (Auto) [place] % (Auto) Eos % (Auto) Baso % (Auto) Neut # (Auto) Lymph # (Auto) [place] # (Auto) Eos # (Auto) Baso # (Auto) WBC Differential Diff Scan Differential Comment Sodium Potassium Chloride Carbon Dioxide Anion Gap BUN Creatinine Estimated GFR POC Glucose 141 H 205 H 181 H Random Glucose Calcium Total Bilirubin AST ALT Alkaline Phosphatase Total Protein Albumin Urine Color Urine Clarity Urine pH Ur Specific [place] Urine Protein Urine Glucose (UA) Urine Ketones Urine Occult Blood Urine Nitrate Urine Bilirubin Urine Urobilinogen Ur Leukocyte Esterase Urine RBC Urine WBC Urine WBC Clumps Ur Squamous Epith Cells Urine Bacteria Micro UA Comment Urine Culture Comments 01/12/18 01/12/18 01/12/18 03:30 03:30 06:08 WBC 19.2 H RBC 3.72 L Hgb 10.9 L Hct 32.9 L MCV 88.6 MCH 29.2 MCHC 32.9 RDW 15.0 Plt Count 407 MPV 8.5 Prelim Diff (Auto) Slide review pending Neut % (Auto) 78.7 H Lymph % (Auto) 8.8 L [place] % (Auto) 11.7 H Eos % (Auto) 0.4 Baso % (Auto) 0.4 Neut # (Auto) 15.1 H Lymph # (Auto) 1.7 [place] # (Auto) 2.2 H Eos # (Auto) 0.1 Baso # (Auto) 0.1 WBC Differential . Diff Scan Auto diff confirmed Differential Comment . Sodium 131 L Potassium 4.5 Chloride 94 L Carbon Dioxide 33.2 H Anion Gap 4 L BUN 24 H Creatinine 0.31 L Estimated GFR Greater than 89 POC Glucose 189 H Random Glucose 131 H Calcium 8.9 Total Bilirubin AST ALT Alkaline Phosphatase Total Protein Albumin Urine Color Urine Clarity Urine pH Ur Specific [place] Urine Protein Urine Glucose (UA) Urine Ketones Urine Occult Blood Urine Nitrate Urine Bilirubin Urine Urobilinogen Ur Leukocyte Esterase Urine RBC Urine WBC Urine WBC Clumps Ur Squamous Epith Cells Urine Bacteria Micro UA Comment Urine Culture Comments 01/12/18 01/12/18 08:45 12:55 WBC RBC Hgb Hct MCV MCH MCHC RDW Plt Count MPV Prelim Diff (Auto) Neut % (Auto) Lymph % (Auto) [place] % (Auto) Eos % (Auto) Baso % (Auto) Neut # (Auto) Lymph # (Auto) [place] # (Auto) Eos # (Auto) Baso # (Auto) WBC Differential Diff Scan Differential Comment Sodium Potassium Chloride Carbon Dioxide Anion Gap BUN Creatinine Estimated GFR POC Glucose 224 H Random Glucose Calcium Total Bilirubin AST ALT Alkaline Phosphatase Total Protein Albumin Urine Color [place] Urine Clarity Turbid H Urine pH 7.0 Ur Specific [place] 1.015 Urine Protein 100 H Urine Glucose (UA) Negative Urine Ketones Negative Urine Occult Blood Moderate H Urine Nitrate Positive H Urine Bilirubin Negative Urine Urobilinogen 2.0 H Ur Leukocyte Esterase Large H Urine RBC 21 H Urine WBC Urine WBC Clumps Many H Ur Squamous Epith Cells 2 Urine Bacteria Many H Micro UA Comment Culture indicated Urine Culture Comments Culture indicated Result Diagrams: 01/19/18 04:30 01/19/18 04:30 Microbiology: Microbiology 01/12/18 08:45 Gram Stain - Final Wound - Abdominal Imaging: ITS Impressions Chest X-Ray 12/27/17 00:01 CONCLUSION: Persistent nonconsolidative airspace infiltrates in the left lower lung. Procedures: 12/19 g tube placement by IR 12/20 emergency tracheostomy 12/22 chemotherapy initiated 12/29 2nd dose chemo Assessment and Plan Pertinent Non-Medical Issues: Psychosocial: Pt was living with friend in apt. Per EMR has daughter Dianna and "friend" Jai. He is an [employer] . Spiritual: declined roll former support Legal: Pt no longer capacitated to make decisions d/t confusion, inability to communicate as before. He designated Jai and Dianna Dolan as HCS. Have communicated with Jai, he accepts his role. Ethical issues impacting care: none at this time Important Contacts: daughter Dianna Dolan [phone] "friend" Jai Dolan home [phone], cell [phone] Prognosis: This is a 62 yo male with COPD, DM, hx etoh & tobacco use, > 40 pack years diagnosed with head and neck cancer. He also has a lung mass which has yet to be biopsied. He has lost 30 lbs in the last 6 months and now requires tube feedings. Has tracheostomy for breathing b/c mass has encroached on his airway. He has started palliative chemotherapy which thus far is only transiently effective at shrinking tumor. It is planned that he begin radiation to his tumor. It is unclear a this time how effective chemotherapy and radiation will be. Given his underlying COPD and lung mass, his prognosis is guarded at best. He is at significant risk for complications and further decline. Code Status: Full Code Plan: - LEGAL DECISON MAKER - pt with trach and communication is difficult but he is alert, oriented, and appropriate, capacitated to make decisions. Should he become incapacitated, he designated Jai Dolan as primary and Dianna Dolan as secondary HCS. - CODE STATUS- FULL CODE - GOALS - aggressive - SYMPTOMS - * pain - 2/2 tumor, lines, tracheostomy. rated his pain 8/10 today but he did appear comfortable on exam. Has gabapentin 300mg q8h but refusing intermittently.PRn oxycodone 10mg q4h pain 3-5. methadone started 01/11 1100. He is on telemetry for monitoring of QT interval. Patient appears comfortable today, somewhat lethargic, and is less able to communicate even via writing, he is trying to write messages with an imaginary pen. He was agitated yesterday during radiation tx so premeds were ordered and he is still refusing. Not sure if this is 2/2 methadone vs decline vs new infection. Will d/c methadone now and reassess tomorrow. Leave 4mg roxanol q6h, PRN IV morphine 2mg. [ methadone recommendation because can serve as a long-acting agent , as patient is currently unable to swallow extended release forms of medication. He had been consistently taking more than 50 oral morphine equivalents a day for pain, and this was not generally controlling his pain even at that level. Methadone can be good as a long-acting agent to avoid such frequent prn or scheduled dosing. Ideally, with continued XRT and chemotherapy he would have decreased tumor burden, and be able to swallow again, and would be able to take long-acting MS Contin 15-30 mg every [address] the methadone.] * dyspnea, secretions- 2/2 compromised airway. Has tracheostomy. Denies feeling SOB but indicates his secretions bother him, secretions have been persistent. Unlikely this could improve. Continues to require frequent suctioning, this is keeping him from being transferred to floor. Seemed to have increased secretions, upper airway congestion today, audible rhonchi. On scheduled symbicort, prn michael vasquez. pt using [place]. * anxiety - multifactorial. flat affect, ambivalent, irritible. could be component of depression/anxiety. He indicates that he does not want to . He became agitated yesterday before his radiation tx and refused today. Has temazepam 15mg HS prn insomnia, which he has not recently requested. Oncology d/ c xanax and added lorazepam. Although won't help in short term, could consider SSRI for longer term tx if pt amenable * nausea - multifactorial, undergoing chemo. 2 days ago complained of nausea with roxanol admin. no report of n/v today, pt had no complaints of this. Denied vomiting. Has promethazine 25mg IM PRN breakthrough nausea, scopolamine patch, reglan 10mg q6h PRN, both PO and IV zofran PRN. Does not appear he has been requesting these. - Reached out to [facility], he is planning to see and talk to pt this evening - discussed with RN - Palliative care will continue to follow during hospital course as condition evolves, to assist patient/decision-maker with understanding of medical conditions, weighing benefits/burdens of treatment options, for clarification of goals of treatment. Additionally will assist with any symptoms of palliative concern Attestation Collaborating MD Comments: Chart reviewed. Case discussed with palliative care EMPLOYMENT EDUCATIONAL COORD. Above EMPLOYMENT EDUCATIONAL COORD note reviewed and I concur. . Attestation: To help prompt me to consider important information that might be impacting today's encounter and assessment, information from prior notes written by myself or my colleagues may have been "brought forward" into today's note. My signature on this note, however, is an attestation that I personally performed the exam, history, and/or decision-making noted today, and, unless otherwise indicated, the interactions with patient, family, and staff as well as the review of records all occurred today. I also attest that the listed assessment and stated plan reflect my best clinical judgment today based on the combination of historical information, prior notes, and today's exam/ interactions. When time spent is documented, it refers only to time spent today by the signer, or if indicated, combined time spent today by collaborating physician/nurse practitioner.
--- NOTE | 2018-01-12 15:52 | P.DIET ---
Nutritional Evaluation Type of nutrition evaluation: follow-up Nutrition consult regarding: Tube Feeding ([facility] [place] for Tube Feeding) Objective - Diagnosis Hypokalemia - Objective % IBW: 72 (TWN=397#) Body Weight Used for Calculations: IBW (81kg) Energy Needs - Lower Range (kCal/kg): 30 Energy Needs - Upper Range (kCal/kg): 35 Lower Limit kCal/kg (kCals): 2,430 Upper Limit kCal/kg (kCals): 2,835 Lower Limit Protein Factor (Grams per Kg): 1.2 Upper Limit Protein Factor (Grams per Kg): 1.5 Lower Protein Needs (Protein): 97 Upper Protein Needs (Protein): 122 Dietitian Reviewed in Medical Record: Curent medications, Intake & Output, Labs , Medical history, Tube feeding Diet Order: TF only Objective Comments: Meds: Scopolamine Labs: Na 131, AccuCheck 224, A1C 6.2 on 01/06/18 LBM 01/12 200ml water flush Q 8hrs Feeding - Current Tube Feeding Tube Feeding Product: Glucerna 1.5 Tube Feeding Method: Pump Tube Feeding Rate: 55 Current kCals Provided by Tube Feedin,980 Current Protein Provided by Tube Feeding (gPRO): 109 Current Free H2O Provided (m/l): 1,002 Assessment Assessment: Pt remains on TFing as described above. Confirmed w/ RN that pt is receiving Glucerna 1.5 at only 55mls/hr, ordered goal rate is for 65mls/hr. Recommend increasing goal rate to 70mls/hr to provide pt w/ 2520kcals, 139g PRO, and 1275mls fluid. Pt started XRT on 12/30 per review on EMR. Has been refusing recently. Chemo initiated on 12/22 of Carboplatin and Taxol. Pt remains at high nutritional risk r/t current low wt status and medical dx. Dietitian following. Recommendations: 1. Recommend increasing goal rate to Glucerna 1.5 @ 70mls/hr x 24hrs. Dietitian to Monitor: Lab values, Glucose level, Intake & Output, Tube feeding tolerance, Weight change, Medical course
[2018-01-12] MEDS: Acetaminophen 325 MG Tablet PO PRN (15:56)
--- NOTE | 2018-01-12 16:51 | P.PNPL ---
Subjective Interval history: 62 YO WM wit H&N CA,RF, Trach ON PSV, trach collar Tolerates TF Awake, follows commands Tongue swelling decreased Small to mod amount of trach secretions Refused to go for radiation treatment Physical Exam Vital signs: Vital Signs 01/11/18 19:00 01/11/18 19:47 01/11/18 20:00 Temperature 99.1 F Pulse Rate 101 H Respiratory Rate 18 Blood Pressure 108/68 Pulse Oximetry 96 94 L 96 01/12/18 00:00 01/12/18 04:00 01/12/18 07:00 Temperature 98.7 F 99.0 F Pulse Rate 91 H 75 Respiratory Rate 17 22 Blood Pressure 100/56 L 109/54 L Pulse Oximetry 96 75 L 97 01/12/18 08:00 01/12/18 12:00 01/12/18 16:00 Temperature 99.2 F 100.2 F H Pulse Rate 108 H 110 H 110 H Respiratory Rate 17 22 Blood Pressure 111/68 105/62 Pulse Oximetry 95 95 01/12/18 16:09 Temperature 101.3 F H Pulse Rate 100 H Respiratory Rate 18 Blood Pressure 100/61 Pulse Oximetry 92 L Intake & Output 01/11/18 01/12/18 01/12/18 18:59 06:59 18:59 Intake Total 650 / 650 1037 / 1037 Output Total 750 / 750 575 / 575 Balance -100 / -100 462 / 462 Weight 58.5 kg Intake: Oral 0 / 0 0 / 0 Tube Feeding 250 / 250 637 / 637 Water Bolus Amount 400 / 400 400 / 400 Output: Urine 750 / 750 Stool 0 / 0 Urine Amount (Catheter) 575 / 575 Condom 575 / 575 Other: Date of Last Bowel Movement 01/10/18 01/12/18 01/12/18 # Bowel Movements 0 1 # Incontinent Bowel Movements 0 1 GENERAL: MBMN WM, anxious, mild sob. SKIN: Warm and dry. HEAD: Normocephalic. EYES: No scleral icterus. No injection or drainage. NECK: Supple, trachea midline. No JVD or lymphadenopathy. Neck mass, has trach CARDIOVASCULAR: Regular rate and rhythm without murmurs, gallops, or rubs. RESPIRATORY: Breath sounds equal bilaterally. No accessory muscle use. GASTROINTESTINAL: Abdomen soft, non-tender, nondistended. Has PEG tube MUSCULOSKELETAL: No cyanosis, or edema. BACK: Nontender without obvious deformity. No CVA tenderness. - Urinary Catheter Management Indwelling Urethral Catheter Cath placed during this visit: yes, but has since been removed by the nurse Reason for continuing: Not indwelling catheter Insertion date: 12/20/17 Insertion time: 00:00 Removal date: 01/02/18 Removal time: 07:00 Condom Cath placed during this visit: yes Reason for continuing: Not indwelling catheter Insertion date: 01/07/18 Insertion time: 21:00 Assessment and Plan - Plan Resp failure S/P Emergent trach Neck Mass H&N Ca COPD PLAN: trach collar Fio2 increased to 60% Aerosol nebs cont Abx Tube feeding Scopolamine patch q 72 hrs Encouraged him to cooperate for XRT
[2018-01-12] MEDS: Morphine Inj 4 MG/ML Vial IV.PUSH PRN (17:17)
[2018-01-12] MEDS ORDERED: Levofloxacin 500 mg Premix Inj 500 MG/100 ML PIGGYBACK IV.SIG SCH (18:00)
--- NOTE | 2018-01-12 18:00 | P.PNONC ---
Subjective Interval history: Events of the day were noted. Patient communicated his refusal to go down to radiation. Patient was quite tired at the time of our conversation. He was not outwardly refusing chemo however he agreed to defer it for now. We discussed the toxicities his experience with the chemo, including the fatigue. Objective Vital Signs/Intake & Output: Vital Signs 01/11/18 19:00 01/11/18 19:47 01/11/18 20:00 Temperature 99.1 F Pulse Rate 101 H Respiratory Rate 18 Blood Pressure 108/68 Pulse Oximetry 96 94 L 96 01/12/18 00:00 01/12/18 04:00 01/12/18 07:00 Temperature 98.7 F 99.0 F Pulse Rate 91 H 75 Respiratory Rate 17 22 Blood Pressure 100/56 L 109/54 L Pulse Oximetry 96 75 L 97 01/12/18 08:00 01/12/18 12:00 01/12/18 16:00 Temperature 99.2 F 100.2 F H Pulse Rate 108 H 110 H 110 H Respiratory Rate 17 22 Blood Pressure 111/68 105/62 Pulse Oximetry 95 95 01/12/18 16:09 01/12/18 17:47 Temperature 101.3 F H Pulse Rate 100 H Respiratory Rate 18 23 Blood Pressure 100/61 Pulse Oximetry 92 L Intake & Output 01/11/18 01/12/18 01/12/18 18:59 06:59 18:59 Intake Total 650 / 650 1037 / 1037 Output Total 750 / 750 575 / 575 Balance -100 / -100 462 / 462 Weight 58.5 kg Intake: Oral 0 / 0 0 / 0 Tube Feeding 250 / 250 637 / 637 Water Bolus Amount 400 / 400 400 / 400 Output: Urine 750 / 750 Stool 0 / 0 Urine Amount (Catheter) 575 / 575 Condom 575 / 575 Other: Date of Last Bowel Movement 01/10/18 01/12/18 01/12/18 # Bowel Movements 0 1 # Incontinent Bowel Movements 0 1 Result Diagrams: 01/12/18 03:30 01/12/18 03:30 Laboratory Results: Laboratory Results - last 24 hr 01/11/18 01/11/18 01/12/18 18:15 23:35 03:30 WBC 19.2 H RBC 3.72 L Hgb 10.9 L Hct 32.9 L MCV 88.6 MCH 29.2 MCHC 32.9 RDW 15.0 Plt Count 407 MPV 8.5 Prelim Diff (Auto) Slide review pending Neut % (Auto) 78.7 H Lymph % (Auto) 8.8 L [place] % (Auto) 11.7 H Eos % (Auto) 0.4 Baso % (Auto) 0.4 Neut # (Auto) 15.1 H Lymph # (Auto) 1.7 [place] # (Auto) 2.2 H Eos # (Auto) 0.1 Baso # (Auto) 0.1 WBC Differential . Diff Scan Auto diff confirmed Differential Comment . Sodium Potassium Chloride Carbon Dioxide Anion Gap BUN Creatinine Estimated GFR POC Glucose 205 H 181 H Random Glucose Calcium Urine Color Urine Clarity Urine pH Ur Specific [place] Urine Protein Urine Glucose (UA) Urine Ketones Urine Occult Blood Urine Nitrate Urine Bilirubin Urine Urobilinogen Ur Leukocyte Esterase Urine RBC Urine WBC Urine WBC Clumps Ur Squamous Epith Cells Urine Bacteria Micro UA Comment Urine Culture Comments 01/12/18 01/12/18 01/12/18 03:30 06:08 08:45 WBC RBC Hgb Hct MCV MCH MCHC RDW Plt Count MPV Prelim Diff (Auto) Neut % (Auto) Lymph % (Auto) [place] % (Auto) Eos % (Auto) Baso % (Auto) Neut # (Auto) Lymph # (Auto) [place] # (Auto) Eos # (Auto) Baso # (Auto) WBC Differential Diff Scan Differential Comment Sodium 131 L Potassium 4.5 Chloride 94 L Carbon Dioxide 33.2 H Anion Gap 4 L BUN 24 H Creatinine 0.31 L Estimated GFR Greater than 89 POC Glucose 189 H Random Glucose 131 H Calcium 8.9 Urine Color [place] Urine Clarity Turbid H Urine pH 7.0 Ur Specific [place] 1.015 Urine Protein 100 H Urine Glucose (UA) Negative Urine Ketones Negative Urine Occult Blood Moderate H Urine Nitrate Positive H Urine Bilirubin Negative Urine Urobilinogen 2.0 H Ur Leukocyte Esterase Large H Urine RBC 21 H Urine WBC Urine WBC Clumps Many H Ur Squamous Epith Cells 2 Urine Bacteria Many H Micro UA Comment Culture indicated Urine Culture Comments Culture indicated 01/12/18 01/12/18 12:55 17:10 WBC RBC Hgb Hct MCV MCH MCHC RDW Plt Count MPV Prelim Diff (Auto) Neut % (Auto) Lymph % (Auto) [place] % (Auto) Eos % (Auto) Baso % (Auto) Neut # (Auto) Lymph # (Auto) [place] # (Auto) Eos # (Auto) Baso # (Auto) WBC Differential Diff Scan Differential Comment Sodium Potassium Chloride Carbon Dioxide Anion Gap BUN Creatinine Estimated GFR POC Glucose 224 H 212 H Random Glucose Calcium Urine Color Urine Clarity Urine pH Ur Specific [place] Urine Protein Urine Glucose (UA) Urine Ketones Urine Occult Blood Urine Nitrate Urine Bilirubin Urine Urobilinogen Ur Leukocyte Esterase Urine RBC Urine WBC Urine WBC Clumps Ur Squamous Epith Cells Urine Bacteria Micro UA Comment Urine Culture Comments Culture Results: Microbiology 01/12/18 08:45 Gram Stain - Final Wound - Abdominal Medications: Active Medications Generic Name Dose Route Start Last Admin Trade Name Freq PRN Reason Stop Dose Admin Acetaminophen 650 mg 12/25/17 00:01 01/12/18 15:56 Tylenol PO 650 mg Q6H PRN Administration FEVER/PAIN SCALE 1 to 2 Albuterol 2.5 mg 12/26/17 16:04 01/02/18 04:06 Albuterol Neb (Prn) NEB 2.5 mg Q2HR NEB PRN Administration DYSPNEA Artificial Tears 1 drop 12/26/17 17:00 01/12/18 08:25 Tears Naturale Opth Drops EACH EYE Not Given Q8H [facility] Budesonide/Formoterol Fumarate 2 puff 12/25/17 09:00 01/12/18 08:27 Symbicort 160/4.5 Mcg Inh INH 2 puff BID [facility] Administration Chlorhexidine Gluconate 15 ml 12/25/17 09:00 01/12/18 08:26 Peridex 0.12% Liq SWISH-SPIT Not Given BID [facility] Docusate Sodium 100 mg 12/26/17 21:00 01/12/18 08:26 Colace Liq G-TUBE Not Given BID [facility] Enoxaparin Sodium 40 mg 01/04/18 12:00 01/12/18 12:59 Lovenox Inj SQ 40 mg Q24H [facility] Administration Gabapentin 300 mg 12/29/17 08:15 01/12/18 13:00 Neurontin Liq PO 300 mg Q8HR [facility] Administration Hyoscyamine 0.25 mg 01/03/18 18:00 01/12/18 17:12 Levsin PO 0.25 mg Q6HR [facility] Administration Levofloxacin/Dextrose 500 mg in 100 mls @ 100 mls/hr 01/12/18 18:00 01/12/18 17:54 Levaquin 500 Mg Premix Inj IV.SIG 100 mls/hr Q24H [facility] Administration Insulin Aspart 0 unit 12/26/17 18:00 01/12/18 17:12 Novolog Insulin Suppl Scale Inj SQ 4 unit Q6HR [facility] Administration Protocol Insulin Detemir 6 unit 01/04/18 21:00 01/11/18 22:19 Levemir Inj SQ 6 unit HS [facility] Administration Lansoprazole 30 mg 12/27/17 09:00 01/12/18 08:22 Prevacid Solutab NG/OG 30 mg DAILY [facility] Administration Morphine Sulfate 2 mg 12/28/17 08:36 01/12/18 17:17 Morphine Inj IV.PUSH 2 mg Q2H PRN Administration PAIN SCALE 5-10/SEVERE COUGH Morphine Sulfate 4 mg 01/11/18 20:00 01/12/18 13:01 Roxanol Liq G-TUBE 4 mg Q6H [facility] Administration Ondansetron HCl 4 mg 12/25/17 17:35 12/31/17 17:30 Zofran Odt PO 4 mg Q6H PRN Administration NAUSEA OR VOMITING Ondansetron HCl 4 mg 01/01/18 20:02 01/12/18 16:07 Zofran Inj IV.PUSH 4 mg Q6H PRN Administration NAUSEA Oxycodone HCl 10 mg 12/25/17 00:01 01/12/18 04:23 Roxicodone PO 10 mg Q4H PRN Administration Pain Scale 3 to 5 Patch Removal 1 each 01/04/18 20:00 01/10/18 22:30 Remove Old Patch T-DERMAL Not Given Q72H [facility] Scopolamine 1 patch 01/04/18 20:00 01/10/18 22:31 Transderm-Scop 1.5 Mg Patch.72hr T-DERMAL Not Given Q72H [facility] Sodium Chloride 2 ml 12/25/17 09:00 01/12/18 08:26 Ns Flush IV.FLUSH 2 ml BID [facility] Administration Sterile Water 200 ml 12/25/17 06:00 01/12/18 13:53 Free Water G-TUBE Not Given Q8HR [facility] Temazepam 15 mg 12/25/17 18:35 01/04/18 02:49 Restoril NG/OG 15 mg HS PRN Administration INSOMNIA Tizanidine HCl 4 mg 12/29/17 09:00 01/12/18 08:21 Zanaflex PO 4 mg Q12HR [facility] Administration Objective Remarks: GENERAL: Cachectic man who looks older than stated age. He looks extremely tired and desponded today. SKIN: Warm and dry. Tongue is smaller. There is still dry crust in the tip. HEAD: Normocephalic. Right neck mass still prominent. EYES: No scleral icterus. No injection or drainage. NECK: Supple, trachea midline. No JVD or lymphadenopathy. LYMPHATIC: No adenopathy. CARDIOVASCULAR: Regular rate and rhythm without murmurs. RESPIRATORY: Breath sounds equal bilaterally. No accessory muscle use. GASTROINTESTINAL: Abdomen scaphoid with the PEG tube in the left upper quadrant. EXTREMITIES: No cyanosis, or edema. MUSCULOSKELETAL: Adequate muscle tone. NEUROLOGICAL: No obvious focal deficit. Awake, alert, and oriented x3. PSYCHIATRIC: Appropriate mood and affect; insight and judgment normal. 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 A delay in his treatment coordinated by the [facility] resulted in his presentation to this hospital with a symptomatic large right neck and base of tongue/tonsil mass. C1 carbo/taxol 12/22 C2 12/29 C3 01/06 Plan: 1. Patient tolerated week 3 palliative carbo/taxol on 01/06, next dose planned for 01/13 will be placed on hold. Patient has refused radiation. We discussed at length that the role of chemotherapy was an adjunct to the radiation. We discussed that chemotherapy has toxicity. Without radiation is likely he will recur and develop progressive symptoms shortly after stopping the chemotherapy. Furthermore we are seeing increased toxicity from the chemotherapy such as the cytopenias. 2. No transfusion needed for the anemia. 3. Palliative care managing his pain. Palliative care discussing with him goals of therapy. Healthcare surrogate has been made aware of his refusal for radiation. 5. Tacheostomy inplace 6. Radiation and chemotherapy are hold at present. Anticipate disease control would not be lasting with chemotherapy alone. Prognosis is poor. With patient' s refusal for radiation, I would recommend continued supportive treatment and hospice care.
[2018-01-12] MEDS: Insulin Detemir Inj 1,000 UNIT/10 ML Vial SQ SCH (22:04)
[2018-01-12] MEDS ORDERED: Sod Chloride 0.9% Inj 1,000 ML IV.SIG ONE (22:24)
[2018-01-13] MEDS: Insulin NovoLOG Aspart Correctional Sugar Inj SQ SCH ×4 (00:30→17:17)
[2018-01-13] MEDS ORDERED: Dextrose 5%/NaCl 0.45% Inj 1,000 ML IV.SIG ONE (00:32)
[2018-01-13] MEDS: Morphine Sulfate Oral Liq 10 MG/0.5 ML Syringe G-TUBE SCH ×4 (01:10→20:20)
[2018-01-13] MEDS: Artificial Tears Opth Drops 15 ML Bottle EACH EYE SCH ×3 (01:10→17:44)
[2018-01-13 05:43] LABS: Baso # (Auto) 0.1 th/mm3 (0.0-0.2); Baso % (Auto) 0.5 % (0.0-2.0); Hematocrit 31.4 % (39.0-51.0); Hemoglobin 10.2 gm/dL (13.0-17.0); Lymph % (Auto) 3.7 % (9.0-44.0); Mean Corpuscular HGB Conc 32.5 % (32.0-36.0); Mean Corpuscular Hemoglobin 28.9 pg (27.0-34.0); Mean Corpuscular Volume 88.9 fL (80.0-100.0); Mean Platelet Volume 8.6 fL (7.0-11.0); Mono # (Auto) 3.1 th/mm3 (0.0-0.9); Mono % (Auto) 11.9 % (0.0-8.0); Neut # (Auto) 21.7 th/mm3 (1.8-7.7); Neut % (Auto) 83.9 % (16.0-70.0); Platelet Count 350 th/mm3 (150-450); Red Blood Count 3.53 mil/mm3 (4.50-5.90); Red Cell Distribution Width 15.5 % (11.6-17.2); White Blood Count 25.8 th/mm3 (4.0-11.0)
[2018-01-13] MEDS ORDERED: Cathflo Activase Inj 2 MG Vial IV.PUSH ONE ×2 (07:30→10:15)
[2018-01-13 07:58] LABS: Lymphocytes 4 % (9-44); Monocytes 7 % (0-8)
[2018-01-13] MEDS ORDERED: Sodium Chlor 0.9% Inj 500 ML IV.SIG ONE ×2 (08:00→10:15)
[2018-01-13 08:01] LABS: Platelet Estimate Normal (Normal); Platelet Morphology Normal (Normal)
[2018-01-13] MEDS: Docusate Sodium Liq 100 MG/10 ML UDC G-TUBE SCH ×2 (08:04→20:21)
[2018-01-13] MEDS: Chlorhexidine Gluconate 0.12% Liq 15 ML UDC SWISH-SPIT SCH ×2 (08:05→20:20)
[2018-01-13] MEDS: Budesonide-Formoterol 160/4.5 MCG 6 GM Inhaler INH SCH ×2 (08:05→19:19)
--- NOTE | 2018-01-13 08:06 | P.PNIM ---
Subjective Interval history: f/u; head/neck cancer/ sepsis ill looking- Tmax 101.3- reported by the RN that he was hypotensive earlier today. refused radiation yesterday. Physical Exam Vital signs: Vital Signs 01/12/18 08:00 01/12/18 12:00 01/12/18 16:00 Temperature 99.2 F 100.2 F H Pulse Rate 108 H 110 H 110 H Respiratory Rate 17 22 Blood Pressure 111/68 105/62 Pulse Oximetry 95 95 01/12/18 16:09 01/12/18 17:47 01/12/18 19:00 Temperature 101.3 F H Pulse Rate 100 H 100 H Respiratory Rate 18 23 24 Blood Pressure 100/61 90/55 L Pulse Oximetry 92 L 92 L 01/12/18 20:00 01/12/18 21:00 01/12/18 21:30 Temperature 98.2 F Pulse Rate 101 H 97 H Respiratory Rate 23 17 Blood Pressure 72/48 L 86/52 L Pulse Oximetry 91 L 92 L 96 01/12/18 22:00 01/12/18 23:00 01/13/18 00:00 Temperature 97.5 F L Pulse Rate 97 H 94 H 91 H Respiratory Rate 20 18 18 Blood Pressure 78/52 L 88/51 L 72/49 L Pulse Oximetry 85 L 100 01/13/18 04:00 Temperature 97.8 F Pulse Rate 95 H Respiratory Rate 20 Blood Pressure 92/55 L Pulse Oximetry 83 L Intake & Output 01/12/18 01/13/18 01/13/18 18:59 06:59 18:59 Intake Total 562 / 562 1100 / 1100 Output Total 350 / 350 350 / 350 Balance 212 / 212 750 / 750 Weight 58.7 kg Intake: IV 1100 / 1100 Levaquin 500 mg Premix Inj 500 100 / 100 mg In 100 ml @ 100 mls/hr IV. SIG Q24H [facility] Rx#:[id number] NS Inj 1,000 ML @ Wide Open IV. 1000 / 1000 SIG BOLUS ONE Rx#:[id number] Tube Feeding 562 / 562 Output: Urine 350 / 350 Urine Amount (Catheter) 350 / 350 Condom 350 / 350 Other: Date of Last Bowel Movement 01/12/18 01/12/18 - Constitutional Comments: ill looking. - Routine Neck Exam Present: swelling (right neck swelling.) - Routine Respiratory Exam Present: CTA bilaterally - Routine Cardiovascular Exam Present: tachycardia - Routine Abdominal Exam Present: soft - Routine Extremities Exam Comments: no pedal edema. - Routine Neurological Exam Present: alert, oriented X3 - Urinary Catheter Management Indwelling Urethral Catheter Cath placed during this visit: yes, but has since been removed by the nurse Reason for continuing: Not indwelling catheter Insertion date: 12/20/17 Insertion time: 00:00 Removal date: 01/02/18 Removal time: 07:00 Condom Cath placed during this visit: yes Reason for continuing: Not indwelling catheter Insertion date: 01/07/18 Insertion time: 21:00 Results - Labs CBC & Chem 7: 01/13/18 05:20 01/12/18 03:30 Laboratory Results - last 24 hr 01/12/18 01/12/18 01/12/18 08:45 12:55 17:10 WBC RBC Hgb Hct MCV MCH MCHC RDW Plt Count MPV Prelim Diff (Auto) Neut % (Auto) Lymph % (Auto) [place] % (Auto) Eos % (Auto) Baso % (Auto) Neut # (Auto) Lymph # (Auto) [place] # (Auto) Eos # (Auto) Baso # (Auto) Differential Comment POC Glucose 224 H 212 H Lactic Acid Urine Color [place] Urine Clarity Turbid H Urine pH 7.0 Ur Specific [place] 1.015 Urine Protein 100 H Urine Glucose (UA) Negative Urine Ketones Negative Urine Occult Blood Moderate H Urine Nitrate Positive H Urine Bilirubin Negative Urine Urobilinogen 2.0 H Ur Leukocyte Esterase Large H Urine RBC 21 H Urine WBC Urine WBC Clumps Many H Ur Squamous Epith Cells 2 Urine Bacteria Many H Micro UA Comment Culture indicated Urine Culture Comments Culture indicated 01/13/18 01/13/18 01/13/18 00:42 00:55 05:20 WBC 25.8 H RBC 3.53 L Hgb 10.2 L Hct 31.4 L MCV 88.9 MCH 28.9 MCHC 32.5 RDW 15.5 Plt Count 350 MPV 8.6 Prelim Diff (Auto) Slide review pending Neut % (Auto) 83.9 H Lymph % (Auto) 3.7 L [place] % (Auto) 11.9 H Eos % (Auto) 0.0 Baso % (Auto) 0.5 Neut # (Auto) 21.7 H Lymph # (Auto) 1.0 [place] # (Auto) 3.1 H Eos # (Auto) 0.0 Baso # (Auto) 0.1 Differential Comment . POC Glucose 226 H Lactic Acid 0.9 Urine Color Urine Clarity Urine pH Ur Specific [place] Urine Protein Urine Glucose (UA) Urine Ketones Urine Occult Blood Urine Nitrate Urine Bilirubin Urine Urobilinogen Ur Leukocyte Esterase Urine RBC Urine WBC Urine WBC Clumps Ur Squamous Epith Cells Urine Bacteria Micro UA Comment Urine Culture Comments 01/13/18 05:20 WBC RBC Hgb Hct MCV MCH MCHC RDW Plt Count MPV Prelim Diff (Auto) Neut % (Auto) Lymph % (Auto) [place] % (Auto) Eos % (Auto) Baso % (Auto) Neut # (Auto) Lymph # (Auto) [place] # (Auto) Eos # (Auto) Baso # (Auto) Differential Comment POC Glucose 248 H Lactic Acid Urine Color Urine Clarity Urine pH Ur Specific [place] Urine Protein Urine Glucose (UA) Urine Ketones Urine Occult Blood Urine Nitrate Urine Bilirubin Urine Urobilinogen Ur Leukocyte Esterase Urine RBC Urine WBC Urine WBC Clumps Ur Squamous Epith Cells Urine Bacteria Micro UA Comment Urine Culture Comments Microbiology 01/12/18 08:45 Wound - Abdominal Gram Stain - Final - Procedures SP TRACH AND PEG Assessment and Plan - Plan Hypoxic respiratory failure, COPD exacerbation, head and neck cancer, lung mass with airway compromise-status post emergent tracheostomy 12/20/2017, presently on trach collar, continue Symbicort, Combivent, T-piece as tolerated. Pulmonary following. Levsin for secretions. On scopolamine. Head and neck cancer, squamous cell carcinoma right tonsil- refused radiation yesterday. oncology f/u appreciated;hospice was recommended - hospice was d/w the patient today; says that he would do the radiation ' but not today'. palliative care managing the pain regimen. will d/w the palliative care today. sepsis due to UTI continue with IV antibiotic and follow the cultures. Nutrition-status post PEG placement 12/19/2017, will send the fluid culture from the PEG site. Hyperglycemia-continue sliding-scale insulin, hemoglobin A1c is 6.3, continue low-dose Levemir. Hyponatremia-mild - stable . will hold the transfer. patient is ill looking with poor prognosis will consider hospice and this will be d/w the palliative care today. Discharge Planning: will d/w the palliative care today; will consult hospice if the patient agrees.
[2018-01-13] MEDS: Gabapentin Liq 250 MG/5 ML UDC PO SCH ×3 (10:12→21:08)
--- NOTE | 2018-01-13 10:42 | P.PNPAL ---
Reason for Visit Reason for visit: a. To assist with evaluation and management of symptoms including: pain, dyspnea, anxiety, nausea b. To assist medical decision maker(s) with: better understanding of current medical conditions; weighing benefits/burdens of medical treatment options; making medical treatment decisions. Subjective Subjective/Interval History: Pt seen today to follow up on goals, comfort. VM received for medical attending noting that patient was some clinical decline, hypotension, request palliative care follow-up regarding goals. Febrile yesterday T-max 101.3. UA positive for UTI. Culture recommended. Methadone was discontinued yesterday by palliative, now ordered for prn dosing only. Unable to administer this dosing this morning because of hypotension. Status post fluid bolus per medical attending with no significant improvement in hypotension. Oncology following, Dr. Garrison has met with patient discussed with him recommendations of hospice. Chemotherapy with significant toxicity and little to no benefit without concurrent XRT. Patient recommended for hospice. Patient seen in room primary nurse present. Dual visit with Juan BOND. He is much more alert than yesterday, very clear, relaxed, appropriate. He indicates he is still painful. He does indicate understanding of discussions earlier today with oncology and medical attending. Review with him omitted treatment options going forward including continued ICU course and treatment for various complications from his general decline, infections, hypotension likely his condition would continue to deteriorate and at some point he may even require ventilation and other invasive measures possibly even cardiac resuscitation. His review that even with those interventions he would still be expected to pass at some point from complications and/or disease process. Tentatively review with him option of de-escalation, DNR, and transition to hospice with comfort focus treatments only including pain medication, anxiety medication with the possibility of transitioning home if he had caregiving assistance at home versus possibility of a hospice care center, to manage symptoms and keep him comfortable until end-of-life. He expresses understanding. He request we call Jai his healthcare surrogate, he indicates Jai did not come yesterday evening. He understands that pain medication will not be able to administered yet this morning due to hypotension pending his decision regarding escalation versus de-escalation of treatment. He wishes to think about this for a couple hours and possibly talk to his healthcare surrogate. Following exam call to set his healthcare surrogate. Jai indicates he will be here in about an hour, just after 11 AM, he will talk to patient further then. Briefly updated Jai on pending decisions and patient current condition. Plan to meet with him and patient in person when he arrives. Nursing to notify when. Discussed all with primary nurse, medical attending. No dyspnea. +mass Rt neck. Lungs clear though diminished. Abdomen notably distended, tender. Faint/infrequent. ----notified again later when HCS/friends arrived. Met with pt, friends/HCS at bedside. He remains alert. Review w [facility] and pt friend/roommate overview of conditions, dx, limited treatment options. Review hospice versus continued aggressive treatment. Review home w hospice vs CC. pt still on t-piece and requiring freq. sx likely would NOT be able to be cared for at home, though would be appropriate for care center placement. review DNR status and no escalation vs continued escalation of tx for pt treatment in the ICU, expected trajectory, likley continued complication and decline even with aggressive tx. Pt c/o some nausea at conclusion, nursing notified, she is admin. Sheilafran, + tube feeding cont to be held. Advance Directives Health Care Surrogate Name and Number: primary [facility] Jai Dolan; secondary Dianna Dolan Objective Vital Signs: Vital Signs 01/12/18 12:00 01/12/18 16:00 01/12/18 16:09 Temperature 100.2 F H 101.3 F H Pulse Rate 110 H 110 H 100 H Respiratory Rate 22 18 Blood Pressure 105/62 100/61 Pulse Oximetry 95 92 L 01/12/18 17:47 01/12/18 19:00 01/12/18 20:00 Temperature 98.2 F Pulse Rate 100 H 101 H Respiratory Rate 23 24 23 Blood Pressure 90/55 L 72/48 L Pulse Oximetry 92 L 91 L 01/12/18 21:00 01/12/18 21:30 01/12/18 22:00 Temperature Pulse Rate 97 H 97 H Respiratory Rate 17 20 Blood Pressure 86/52 L 78/52 L Pulse Oximetry 92 L 96 85 L 01/12/18 23:00 01/13/18 00:00 01/13/18 04:00 Temperature 97.5 F L 97.8 F Pulse Rate 94 H 91 H 95 H Respiratory Rate 18 18 20 Blood Pressure 88/51 L 72/49 L 92/55 L Pulse Oximetry 100 83 L 01/13/18 07:00 01/13/18 08:00 01/13/18 10:11 Temperature 97.3 F L Pulse Rate 94 H 95 H Respiratory Rate 16 Blood Pressure 93/56 L Pulse Oximetry 91 L 91 L Intake & Output 01/12/18 01/13/18 01/13/18 18:59 06:59 18:59 Intake Total 562 / 562 1100 / 1100 Output Total 350 / 350 350 / 350 Balance 212 / 212 750 / 750 Weight 58.7 kg Intake: IV 1100 / 1100 Levaquin 500 mg Premix Inj 500 100 / 100 mg In 100 ml @ 100 mls/hr IV. SIG Q24H BRENDEN Rx#:[id number] NS Inj 1,000 ML @ Wide Open IV. 1000 / 1000 SIG BOLUS ONE Rx#:[id number] Tube Feeding 562 / 562 Output: Urine 350 / 350 Urine Amount (Catheter) 350 / 350 Condom 350 / 350 Other: Date of Last Bowel Movement 01/12/18 01/12/18 Physical Exam: CONSTITUTIONAL/GENERAL: mildly cachectic, alert, calm male TUBES/LINES/DRAINS: port, trach to t-piece SKIN: sallow complexion No wounds seen anteriorly other than face. Not diaphoretic. HEAD: Atraumatic. Disfigured right face and neck, mass appears smaller than previous exams EYES: PERRL. Extraocular motions intact. No scleral icterus. No injection or drainage. Fundi not examined. ENT: Hearing grossly normal. Nose without bleeding or purulent drainage. large mass right cheek extending down to neck. NECK: mass right side. RESPIRATORY/CHEST: respirations unlabored, lungs clear/diminished. GASTROINTESTINAL: Abdomen soft, tender, +distended,BS faint/infrequent. + PEG tube with small circumferential area erythema, crust/clamped MUSCULOSKELETAL: LLE cool with mottling NEUROLOGICAL:alert, calm, cooperative. Nods /gestures in communication/ understanding. Declines to write today. Moves all 4 extremities. PSYCHIATRIC: calm, no anxiety evident Diagnostic Tests Laboratory: Laboratory Results - last 72 hr 01/10/18 01/10/18 01/11/18 11:28 16:09 00:03 WBC RBC Hgb Hct MCV MCH MCHC RDW Plt Count MPV Prelim Diff (Auto) Neut % (Auto) Lymph % (Auto) [place] % (Auto) Eos % (Auto) Baso % (Auto) Neut # (Auto) Lymph # (Auto) [place] # (Auto) Eos # (Auto) Baso # (Auto) WBC Differential Diff Scan Seg Neuts % (Manual) Band Neuts % (Manual) Lymphocytes % (Manual) Monocytes % (Manual) Abs Neuts (Manual) Differential Comment Platelet Estimate Platelet Morphology Sodium Potassium Chloride Carbon Dioxide Anion Gap BUN Creatinine Estimated GFR POC Glucose 193 H 156 H 160 H Random Glucose Lactic Acid Calcium Urine Color Urine Clarity Urine pH Ur Specific [place] Urine Protein Urine Glucose (UA) Urine Ketones Urine Occult Blood Urine Nitrate Urine Bilirubin Urine Urobilinogen Ur Leukocyte Esterase Urine RBC Urine WBC Urine WBC Clumps Ur Squamous Epith Cells Urine Bacteria Micro UA Comment Urine Culture Comments 01/11/18 01/11/18 01/11/18 05:22 11:36 18:15 WBC RBC Hgb Hct MCV MCH MCHC RDW Plt Count MPV Prelim Diff (Auto) Neut % (Auto) Lymph % (Auto) [place] % (Auto) Eos % (Auto) Baso % (Auto) Neut # (Auto) Lymph # (Auto) [place] # (Auto) Eos # (Auto) Baso # (Auto) WBC Differential Diff Scan Seg Neuts % (Manual) Band Neuts % (Manual) Lymphocytes % (Manual) Monocytes % (Manual) Abs Neuts (Manual) Differential Comment Platelet Estimate Platelet Morphology Sodium Potassium Chloride Carbon Dioxide Anion Gap BUN Creatinine Estimated GFR POC Glucose 177 H 141 H 205 H Random Glucose Lactic Acid Calcium Urine Color Urine Clarity Urine pH Ur Specific [place] Urine Protein Urine Glucose (UA) Urine Ketones Urine Occult Blood Urine Nitrate Urine Bilirubin Urine Urobilinogen Ur Leukocyte Esterase Urine RBC Urine WBC Urine WBC Clumps Ur Squamous Epith Cells Urine Bacteria Micro UA Comment Urine Culture Comments 01/11/18 01/12/18 01/12/18 23:35 03:30 03:30 WBC 19.2 H RBC 3.72 L Hgb 10.9 L Hct 32.9 L MCV 88.6 MCH 29.2 MCHC 32.9 RDW 15.0 Plt Count 407 MPV 8.5 Prelim Diff (Auto) Slide review pending Neut % (Auto) 78.7 H Lymph % (Auto) 8.8 L [place] % (Auto) 11.7 H Eos % (Auto) 0.4 Baso % (Auto) 0.4 Neut # (Auto) 15.1 H Lymph # (Auto) 1.7 [place] # (Auto) 2.2 H Eos # (Auto) 0.1 Baso # (Auto) 0.1 WBC Differential . Diff Scan Auto diff confirmed Seg Neuts % (Manual) Band Neuts % (Manual) Lymphocytes % (Manual) Monocytes % (Manual) Abs Neuts (Manual) Differential Comment . Platelet Estimate Platelet Morphology Sodium 131 L Potassium 4.5 Chloride 94 L Carbon Dioxide 33.2 H Anion Gap 4 L BUN 24 H Creatinine 0.31 L Estimated GFR Greater than 89 POC Glucose 181 H Random Glucose 131 H Lactic Acid Calcium 8.9 Urine Color Urine Clarity Urine pH Ur Specific [place] Urine Protein Urine Glucose (UA) Urine Ketones Urine Occult Blood Urine Nitrate Urine Bilirubin Urine Urobilinogen Ur Leukocyte Esterase Urine RBC Urine WBC Urine WBC Clumps Ur Squamous Epith Cells Urine Bacteria Micro UA Comment Urine Culture Comments 01/12/18 01/12/18 01/12/18 06:08 08:45 12:55 WBC RBC Hgb Hct MCV MCH MCHC RDW Plt Count MPV Prelim Diff (Auto) Neut % (Auto) Lymph % (Auto) [place] % (Auto) Eos % (Auto) Baso % (Auto) Neut # (Auto) Lymph # (Auto) [place] # (Auto) Eos # (Auto) Baso # (Auto) WBC Differential Diff Scan Seg Neuts % (Manual) Band Neuts % (Manual) Lymphocytes % (Manual) Monocytes % (Manual) Abs Neuts (Manual) Differential Comment Platelet Estimate Platelet Morphology Sodium Potassium Chloride Carbon Dioxide Anion Gap BUN Creatinine Estimated GFR POC Glucose 189 H 224 H Random Glucose Lactic Acid Calcium Urine Color [place] Urine Clarity Turbid H Urine pH 7.0 Ur Specific [place] 1.015 Urine Protein 100 H Urine Glucose (UA) Negative Urine Ketones Negative Urine Occult Blood Moderate H Urine Nitrate Positive H Urine Bilirubin Negative Urine Urobilinogen 2.0 H Ur Leukocyte Esterase Large H Urine RBC 21 H Urine WBC Urine WBC Clumps Many H Ur Squamous Epith Cells 2 Urine Bacteria Many H Micro UA Comment Culture indicated Urine Culture Comments Culture indicated 01/12/18 01/13/18 01/13/18 17:10 00:42 00:55 WBC RBC Hgb Hct MCV MCH MCHC RDW Plt Count MPV Prelim Diff (Auto) Neut % (Auto) Lymph % (Auto) [place] % (Auto) Eos % (Auto) Baso % (Auto) Neut # (Auto) Lymph # (Auto) [place] # (Auto) Eos # (Auto) Baso # (Auto) WBC Differential Diff Scan Seg Neuts % (Manual) Band Neuts % (Manual) Lymphocytes % (Manual) Monocytes % (Manual) Abs Neuts (Manual) Differential Comment Platelet Estimate Platelet Morphology Sodium Potassium Chloride Carbon Dioxide Anion Gap BUN Creatinine Estimated GFR POC Glucose 212 H 226 H Random Glucose Lactic Acid 0.9 Calcium Urine Color Urine Clarity Urine pH Ur Specific [place] Urine Protein Urine Glucose (UA) Urine Ketones Urine Occult Blood Urine Nitrate Urine Bilirubin Urine Urobilinogen Ur Leukocyte Esterase Urine RBC Urine WBC Urine WBC Clumps Ur Squamous Epith Cells Urine Bacteria Micro UA Comment Urine Culture Comments 01/13/18 01/13/18 05:20 05:20 WBC 25.8 H RBC 3.53 L Hgb 10.2 L Hct 31.4 L MCV 88.9 MCH 28.9 MCHC 32.5 RDW 15.5 Plt Count 350 MPV 8.6 Prelim Diff (Auto) Slide review pending Neut % (Auto) 83.9 H Lymph % (Auto) 3.7 L [place] % (Auto) 11.9 H Eos % (Auto) 0.0 Baso % (Auto) 0.5 Neut # (Auto) 21.7 H Lymph # (Auto) 1.0 [place] # (Auto) 3.1 H Eos # (Auto) 0.0 Baso # (Auto) 0.1 WBC Differential Manual diff final Diff Scan Seg Neuts % (Manual) 77 H Band Neuts % (Manual) 12 H Lymphocytes % (Manual) 4 L Monocytes % (Manual) 7 Abs Neuts (Manual) 23.0 H Differential Comment . Platelet Estimate Normal Platelet Morphology Normal Sodium Potassium Chloride Carbon Dioxide Anion Gap BUN Creatinine Estimated GFR POC Glucose 248 H Random Glucose Lactic Acid Calcium Urine Color Urine Clarity Urine pH Ur Specific [place] Urine Protein Urine Glucose (UA) Urine Ketones Urine Occult Blood Urine Nitrate Urine Bilirubin Urine Urobilinogen Ur Leukocyte Esterase Urine RBC Urine WBC Urine WBC Clumps Ur Squamous Epith Cells Urine Bacteria Micro UA Comment Urine Culture Comments Result Diagrams: 01/19/18 04:30 01/19/18 04:30 Microbiology: Microbiology 01/12/18 08:45 Gram Stain - Final Wound - Abdominal Microbiology 01/12/18 08:45 Wound - Abdominal Gram Stain - Final 12/27/17 10:37 Sputum - Endotracheal Gram Stain - Final 12/27/17 10:37 Sputum - Endotracheal Sputum Culture - Final Heavy growth normal respiratory kali Procedures: 12/19 g tube placement by IR 12/20 emergency tracheostomy 12/22 chemotherapy initiated 12/29 2nd dose chemo Assessment and Plan Pertinent Non-Medical Issues: Psychosocial: Pt was living with friend in apt. Per EMR has daughter Dianna and "friend" Jai. He is an [employer] . 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 He designated Jai and Dianna Dolan as HCS. Have communicated with Jai, he accepts his role. Ethical issues impacting care: none at this time Important Contacts: daughter Dianna Dolan [phone] "friend" Jai Dolan home [phone], cell [phone] Prognosis: This is a 62 yo male with COPD, DM, hx etoh & tobacco use, > 40 pack years diagnosed with head and neck cancer. He also has a lung mass which has yet to be biopsied. He has lost 30 lbs in the last 6 months and now requires tube feedings. Has tracheostomy for breathing b/c mass has encroached on his airway. He has started palliative chemotherapy which thus far is only transiently effective at shrinking tumor. It is planned that he begin radiation to his tumor. It is unclear a this time how effective chemotherapy and radiation will be. Given his underlying COPD and lung mass, his prognosis is guarded at best. He is at significant risk for complications and further decline. Code Status: Full Code Plan: - LEGAL DECISON MAKER - pt with trach and communication is difficult but he is alert, oriented, and appropriate, capacitated to make decisions. Should he become incapacitated, he designated Jai Dolan as primary and Dianna Dolan as secondary HCS. - CODE STATUS- FULL CODE - GOALS -patient considering hospice and comfort transition versus continued aggressive treatment in the hospital. He wishes to think about it, he will make his decision once he has spoken with his healthcare surrogate later today. - SYMPTOMS - * pain - 2/2 tumor, lines, tracheostomy. has rated his pain 8/10, he endorses pain but appears comfortable on exam. Has gabapentin 300mg q8h but refusing intermittently.PRn oxycodone 10mg q4h pain 3-5. methadone started 01/11 1100-- discontinued yesterday due to concern for altered mental status, lethargy. prns held this this morning per nursing due to hypotension status post fluid bolus per medical attending If goals comfort oriented may continue with as needed prn for pain. Patient considering hospice. * dyspnea, secretions- 2/2 compromised airway. Has tracheostomy. Denies feeling SOB , secretions have been persistent. This will persist secondary to disease process. Continues to require frequent suctioning, this is keeping him from being transferred to floor. On scheduled symbicort, prn michael vasquez. pt using [employer]. * anxiety - multifactorial. Patient has had flat affect, ambivalent, irritable. could be component of depression/anxiety. Earlier this week became extremely agitated en route to radiation therapy and essentially refused nursing was unable to transport. Oncology d/c xanax and added lorazepam. Although won't help in short term, could consider SSRI for longer term tx if pt amenable * nausea - multifactorial, undergoing chemo. few days ago complained of nausea with roxanol admin. no report of n/v today, pt had no complaints of this. Denied vomiting. Has promethazine 25mg IM PRN breakthrough nausea, scopolamine patch, reglan 10mg q6h PRN, both PO and IV zofran PRN. Does not appear he has been requesting these. - Reached out to [facility], he is planning to be here in about an hour or so to talk further with patient about goals of aggressive treatment versus de- escalation and hospice /comfort - discussed with RN, medical attending - Palliative care will continue to follow during hospital course as condition evolves, to assist patient/decision-maker with understanding of medical conditions, weighing benefits/burdens of treatment options, for clarification of goals of treatment. Additionally will assist with any symptoms of palliative concern Time Spent Total Floor Time (mins): 35 (chart review, PE, d/w nursing, d/w attending, extensive d/w pt,[facility]) Attestation Collaborating Comments: Chart reviewed. Case discussed with palliative care nurse practitioner. Above DEVELOPMENT EDITOR note reviewed and I concur. . Attestation: To help prompt me to consider important information that might be impacting today's encounter and assessment, information from prior notes written by myself or my colleagues may have been "brought forward" into today's note. My signature on this note, however, is an attestation that I personally performed the exam, history, and/or decision-making noted today, and, unless otherwise indicated, the interactions with patient, family, and staff as well as the review of records all occurred today. I also attest that the listed assessment and stated plan reflect my best clinical judgment today based on the combination of historical information, prior notes, and today's exam/ interactions. When time spent is documented, it refers only to time spent today by the signer, or if indicated, combined time spent today by collaborating physician/nurse practitioner.
[2018-01-13] MEDS: Enoxaparin Inj 40 MG/0.4 ML Syringe SQ SCH (12:57)
--- NOTE | 2018-01-13 13:44 | P.PNONC ---
Subjective Interval history: Febrile T-max 101.3 on 01/12. +Urinary tract infection. Patient lying in bed, in no acute distress. He reports pain to the area of his neck mass. When asked what happened during the attempted radiation treatment he reports that it was too painful, he therefore started refusing it. Palliative care has been at the bedside discussion his treatment goals with the patient and his friend. The patient has not come to any final decisions at this time. His RN reports that his blood pressure has been too low today to administer him his pain medications. Objective Vital Signs/Intake & Output: Vital Signs 01/12/18 16:00 01/12/18 16:09 01/12/18 17:47 Temperature 101.3 F H Pulse Rate 110 H 100 H Respiratory Rate 18 23 Blood Pressure 100/61 Pulse Oximetry 92 L 01/12/18 19:00 01/12/18 20:00 01/12/18 21:00 Temperature 98.2 F Pulse Rate 100 H 101 H 97 H Respiratory Rate 24 23 17 Blood Pressure 90/55 L 72/48 L 86/52 L Pulse Oximetry 92 L 91 L 92 L 01/12/18 21:30 01/12/18 22:00 01/12/18 23:00 Temperature Pulse Rate 97 H 94 H Respiratory Rate 20 18 Blood Pressure 78/52 L 88/51 L Pulse Oximetry 96 85 L 100 01/13/18 00:00 01/13/18 04:00 01/13/18 07:00 Temperature 97.5 F L 97.8 F Pulse Rate 91 H 95 H Respiratory Rate 18 20 Blood Pressure 72/49 L 92/55 L Pulse Oximetry 83 L 91 L 01/13/18 08:00 01/13/18 10:11 01/13/18 11:09 Temperature 97.3 F L Pulse Rate 94 H 95 H 96 H Respiratory Rate 16 Blood Pressure 93/56 L Pulse Oximetry 91 L Intake & Output 01/12/18 01/13/18 01/13/18 18:59 06:59 18:59 Intake Total 562 / 562 1100 / 1100 1999 Output Total 350 / 350 350 / 350 Balance 212 / 212 750 / 750 1999 Weight 58.7 kg Intake: IV 1100 / 1099 D5W/1/2 NS Inj 1,000 ML @ Wide 1000 / 1000 Open IV.SIG .Q0M ONE Rx#: [id number] Levaquin 500 mg Premix Inj 500 100 / 100 mg In 100 ml @ 100 mls/hr IV. SIG Q24H [facility] Rx#:[id number] NS Inj 1,000 ML @ Wide Open IV. 1000 / 1000 SIG BOLUS ONE Rx#:[id number] NS Inj 500 ML @ As Directed IV. 1000 / 1000 SIG BOLUS ONE Rx#:[id number] Tube Feeding 562 / 562 Output: Urine 350 / 350 Urine Amount (Catheter) 350 / 350 Condom 350 / 350 Other: Date of Last Bowel Movement 01/12/18 01/12/18 Result Diagrams: 01/13/18 16:49 01/13/18 16:49 Laboratory Results: Laboratory Results - last 24 hr 01/12/18 01/12/18 01/13/18 08:45 17:10 00:42 WBC RBC Hgb Hct MCV MCH MCHC RDW Plt Count MPV Prelim Diff (Auto) Neut % (Auto) Lymph % (Auto) [place] % (Auto) Eos % (Auto) Baso % (Auto) Neut # (Auto) Lymph # (Auto) [place] # (Auto) Eos # (Auto) Baso # (Auto) WBC Differential Seg Neuts % (Manual) Band Neuts % (Manual) Lymphocytes % (Manual) Monocytes % (Manual) Abs Neuts (Manual) Differential Comment Platelet Estimate Platelet Morphology POC Glucose 212 H 226 H Lactic Acid Urine Color [place] Urine Clarity Turbid H Urine pH 7.0 Ur Specific Allen 1.015 Urine Protein 100 H Urine Glucose (UA) Negative Urine Ketones Negative Urine Occult Blood Moderate H Urine Nitrate Positive H Urine Bilirubin Negative Urine Urobilinogen 2.0 H Ur Leukocyte Esterase Large H Urine RBC 21 H Urine WBC Urine WBC Clumps Many H Ur Squamous Epith Cells 2 Urine Bacteria Many H Micro UA Comment Culture indicated Urine Culture Comments Culture indicated 01/13/18 01/13/18 01/13/18 00:55 05:20 05:20 WBC 25.8 H RBC 3.53 L Hgb 10.2 L Hct 31.4 L MCV 88.9 MCH 28.9 MCHC 32.5 RDW 15.5 Plt Count 350 MPV 8.6 Prelim Diff (Auto) Slide review pending Neut % (Auto) 83.9 H Lymph % (Auto) 3.7 L [place] % (Auto) 11.9 H Eos % (Auto) 0.0 Baso % (Auto) 0.5 Neut # (Auto) 21.7 H Lymph # (Auto) 1.0 [place] # (Auto) 3.1 H Eos # (Auto) 0.0 Baso # (Auto) 0.1 WBC Differential Manual diff final Seg Neuts % (Manual) 77 H Band Neuts % (Manual) 12 H Lymphocytes % (Manual) 4 L Monocytes % (Manual) 7 Abs Neuts (Manual) 23.0 H Differential Comment . Platelet Estimate Normal Platelet Morphology Normal POC Glucose 248 H Lactic Acid 0.9 Urine Color Urine Clarity Urine pH Ur Specific Allen Urine Protein Urine Glucose (UA) Urine Ketones Urine Occult Blood Urine Nitrate Urine Bilirubin Urine Urobilinogen Ur Leukocyte Esterase Urine RBC Urine WBC Urine WBC Clumps Ur Squamous Epith Cells Urine Bacteria Micro UA Comment Urine Culture Comments Culture Results: Microbiology 01/12/18 08:45 Urine Culture - Preliminary Clean Catch Urine gram negative rods 01/12/18 08:45 Gram Stain - Final Wound - Abdominal Wound Culture - Preliminary gram negative rods Lucy albicans 01/12/18 20:40 Aerobic Blood Culture - Preliminary Blood - Peripheral No growth in 1 day Anaerobic Blood Culture - Preliminary No growth in 1 day 01/12/18 20:45 Aerobic Blood Culture - Preliminary Blood - Peripheral No growth in 1 day Anaerobic Blood Culture - Preliminary No growth in 1 day Medications: Active Medications Generic Name Dose Route Start Last Admin Trade Name Freq PRN Reason Stop Dose Admin Acetaminophen 650 mg 12/25/17 00:01 01/12/18 15:56 Tylenol PO 650 mg Q6H PRN Administration FEVER/PAIN SCALE 1 to 2 Albuterol 2.5 mg 12/26/17 16:04 01/02/18 04:06 Albuterol Neb (Prn) NEB 2.5 mg Q2HR NEB PRN Administration DYSPNEA Artificial Tears 1 drop 12/26/17 17:00 01/13/18 08:05 Tears Naturale Opth Drops EACH EYE Not Given Q8H [facility] Budesonide/Formoterol Fumarate 2 puff 12/25/17 09:00 01/13/18 08:05 Symbicort 160/4.5 Mcg Inh INH 2 puff BID [facility] Administration Chlorhexidine Gluconate 15 ml 12/25/17 09:00 01/13/18 08:05 Peridex 0.12% Liq SWISH-SPIT Not Given BID [facility] Docusate Sodium 100 mg 12/26/17 21:00 01/13/18 08:04 Colace Liq G-TUBE Not Given BID [facility] Enoxaparin Sodium 40 mg 01/04/18 12:00 01/13/18 12:57 Lovenox Inj SQ 40 mg Q24H [facility] Administration Gabapentin 300 mg 12/29/17 08:15 01/13/18 10:12 Neurontin Liq PO Not Given Q8HR [facility] Heparin Sodium (Porcine) 250 unit 12/30/17 05:33 01/13/18 11:59 Heparin Central Flush IV.FLUSH 250 unit PRN PRN Administration Flush Infusapot Hyoscyamine 0.25 mg 01/03/18 18:00 01/13/18 12:58 Levsin PO 0.25 mg Q6HR [facility] Administration Levofloxacin/Dextrose 500 mg in 100 mls @ 100 mls/hr 01/12/18 18:00 01/12/18 20:00 Levaquin 500 Mg Premix Inj IV.SIG Infused Q24H [facility] Infusion Insulin Aspart 0 unit 12/26/17 18:00 01/13/18 12:57 Novolog Insulin Suppl Scale Inj SQ Not Given Q6HR [facility] Protocol Insulin Detemir 6 unit 01/04/18 21:00 01/12/18 22:04 Levemir Inj SQ 6 unit HS [facility] Administration Lansoprazole 30 mg 12/27/17 09:00 01/13/18 08:05 Prevacid Solutab NG/OG 30 mg DAILY [facility] Administration Metoclopramide HCl 10 mg 12/25/17 00:01 01/12/18 18:34 Reglan Inj IV.PUSH 10 mg Q6H PRN Administration Nausea or Vomiting Morphine Sulfate 2 mg 12/28/17 08:36 01/12/18 17:17 Morphine Inj IV.PUSH 2 mg Q2H PRN Administration PAIN SCALE 5-10/SEVERE COUGH Morphine Sulfate 4 mg 01/11/18 20:00 01/13/18 07:43 Roxanol Liq G-TUBE Not Given Q6H [facility] Ondansetron HCl 4 mg 12/25/17 17:35 01/12/18 18:05 Zofran Odt PO 4 mg Q6H PRN Administration NAUSEA OR VOMITING Ondansetron HCl 4 mg 01/01/18 20:02 01/13/18 11:58 Zofran Inj IV.PUSH 4 mg Q6H PRN Administration NAUSEA Oxycodone HCl 10 mg 12/25/17 00:01 01/12/18 04:23 Roxicodone PO 10 mg Q4H PRN Administration Pain Scale 3 to 5 Patch Removal 1 each 01/04/18 20:00 01/10/18 22:30 Remove Old Patch T-DERMAL Not Given Q72H [facility] Scopolamine 1 patch 01/04/18 20:00 01/10/18 22:31 Transderm-Scop 1.5 Mg Patch.72hr T-DERMAL Not Given Q72H [facility] Sodium Chloride 2 ml 12/25/17 09:00 01/13/18 08:05 Ns Flush IV.FLUSH 2 ml BID [facility] Administration Sterile Water 200 ml 12/25/17 06:00 01/13/18 10:12 Free Water G-TUBE Not Given Q8HR [facility] Temazepam 15 mg 12/25/17 18:35 01/04/18 02:49 Restoril NG/OG 15 mg HS PRN Administration INSOMNIA Tizanidine HCl 4 mg 12/29/17 09:00 01/13/18 08:05 Zanaflex PO Not Given Q12HR [facility] Objective Remarks: GENERAL: Chronically ill appearing middle aged male, lying in bed, in no acute distress. SKIN: Warm and dry. HEAD: Normocephalic. EYES: No scleral icterus. No injection or drainage. NECK: Supple, tracheostomy in place. +large right neck mass. CARDIOVASCULAR:+ S1/S2. Regular rate and rhythm RESPIRATORY: Anterior breath sounds clear, equal bilaterally. No accessory muscle use. GASTROINTESTINAL: Abdomen tender to palpation all quadrants, hard, nondistended. PEG tube in place LUQ, dressing clean/dry. EXTREMITIES: No cyanosis or edema. NEUROLOGICAL: Alert and oriented. Follows commands, nods his head and shrugs his shoulders, aphonic speech. 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 A delay in his treatment coordinated by the [facility] resulted in his presentation to this hospital with a symptomatic large right neck and base of tongue/tonsil mass. C1 carbo/taxol 12/22 C2 12/29 C3 01/06 Plan: 1. S/P 3 palliative carbo/taxol, last one administered was on 01/06, next dose was planned for 01/13, however this has been placed on hold r/t toxicities and pt now refusing radiation treatments. Will continue to monitor for chemo toxicity, and await patient's decisions in regards to further treatments. 2. No transfusion needed for the anemia. 3. Palliative care managing his pain. Palliative care discussing with him goals of therapy. The patient has not made any decisions in regards to his healthcare goals or treatment plans moving forward. 4. Radiation and chemotherapy are hold at present. Given the patient's refusal for radiation, it is felt that the chemotherapy alone would not be sufficient for disease control. The patient's prognosis is poor. Palliative care is working with the patient in regards to his treatment goals and outcomes. Without radiation treatment, the patient has been recommended for supportive treatment and hospice care. 5. Sepsis r/t urinary tract infection. On abx and supportive treatment per attending. - Attending Statement The exam, history, and the medical decision-making described in the above note were completed with the assistance of the mid-level provider. I reviewed and agree with the findings presented. I attest that I had a [id number] encounter with the patient on the same day, and personally performed and documented my assessment and findings in the medical record. Last 24 hours noted. There is clinical decompensation. He is on the ventilator. He is awake alert. He prefers to defer any decision regarding treatment for his head and neck cancer. He is not a candidate for palliative chemotherapy at present. Noted the leukocytosis. Noted his refusal for radiation. We will follow along with the primary team.
[2018-01-13] MEDS ORDERED: Sod Chloride 0.9% Inj 1,000 ML IV.CONT SCH (14:00)
--- NOTE | 2018-01-13 16:08 | P.PNADD ---
Addendum to Inpatient Note Reason for Addendum: Additional Documentation (had a call from RN ; was notified that the patient vomited and probably aspirated with hypoxemia- case was d/w the [facility] top raker physician compensation analyst and the care will be transferred to [facility] raker. patient is still a full code. previously d/w the palliative care this morning. hospice was introduced to the patient but he hasn't made a decision yet.)
--- NOTE | 2018-01-13 16:23 | P.PNCC ---
Subjective Subjective Remarks/Hospital Course: Remarks/Hospital Course This is a 62-year-old male with a past medical history of squamous cell carcinoma of the head and neck, lung mass COPD, hypertension diabetes with a history of tobacco abuse, that presented on 12/18. The patient regularly is seen at the [facility] however he was not afforded treatment at this time . The patient was admitted to the medical floor, hematology oncology had been consulted plans were for chemotherapy to be initiated today the patient underwent PEG placement yesterday. Late this afternoon the patient was noted to be hypoxemic with significant airway edema , O2 sat in the 80's, Pao2 59 on 100% nonrebreather ,in the setting of a large tumor mass .A Halicat was called , and the patient was emergently transferred to [facility]. Upon transfer the patient was immediately out evaluated and noted to be in significant respiratory distress, oral airway significantly edematous tongue protruding out of mouth Mallampati unobtainable upon evaluation. The patient appeared to be alert and could not yes and no to questions unable to speak. Quick assessment of CT scans that were previously done of the neck showed a large tumor mass crossing midline. Dr. Cabello , Anesthesiologist in to evaluate patient at bedside discussed case with him. Emergency airway equipment placed at bedside trauma surgery was notified I spoke with Dr. Rangel, patient emergently scheduled for tracheostomy to secure airway. A left radial A-line was placed ABG on 100% nonrebreather was obtained prior to going PaO2 had risen to 60 on nonrebreather mask. 12/21: No acute events overnight. The patient underwent emergency tracheostomy to secure the airway last evening. Norepinephrine and fentanyl infusions have been discontinued this morning patient has been transitioned onto CPAP trials and denies any discomfort. Patient is communicating with board and marker. PEG tube in situ tube feedings Glucerna currently at 30 cc/an hour continue to be advanced to goal. FiO2 has been decreased to .45% 12/22: No acute events overnight. The patient was maintained on CPAP trials throughout the night and this afternoon plan trach collar trials this afternoon PT OT has been initiated. Patient tolerating tube feeds no residuals. 12/23: Patient progressing well currently on trach collar trials greater than 24 hours. Patient tolerating tube feeds diet. Chemotherapy initiated yesterday. Patient denies pain. 12/24: Late entry note patient seen at 11:40 AM. Overnight the patient became agitated pulling off lines and tubes. Patient had previous stated that he has an anxiety disorder ,Xanax was ordered however not given. Upon my evaluation this a.m. O2 saturation noted to be low patient placed on FiO2 of 80% stat ABG was performed to reveal hypoxemia the patient was placed back on CPAP stat chest x-ray was performed which showed worsening airspace disease in the bases. 12/25: Patient noted with episodes of nausea, tube feeds held. Zofran given for nausea. The patient continues to have increased FiO2 requirements the patient is being placed on trach collar during the day CPAP at night. 12/26: Vitals not documented. Currently on CPAP 10/5 and 40%. No bowel movements documented. Not on a bowel regimen. 12/27: Remains on mechanical ventilation via tracheostomy. On CPAP trials. 12/28: no changes. still with cpap trials. 12/29: tolerating t-piece trials. rested on cpap overnight. complaints of continued pain around tumor site, as well as significant secretions. 12/30: clinically doing well. denies complaints. asked that speech re-evaluate him because he would like to start eating real food again. plan for XRT to start today. 12/31: On mechanical ventilation via trach. Tolerating T piece trials 01/01: Remains on mechanical ventilation via trach. 01/02: On T-piece. Awaiting radiation today Subjective: 01/13: Reconsult due to hypotension/aspiration with worsening oxygenation. Patient replaced back on the ventilator via tracheostomy with cuff inflated. Of note, patient has been refusing radiation therapy and his chemotherapy has been held for that reason by oncology. Patient with urinary tract infection/ becoming septic with possible infected PEG site as well. Objective Vital Signs / I&O: Vital Signs 01/12/18 17:47 01/12/18 19:00 01/12/18 20:00 Temperature 98.2 F Pulse Rate 100 H 101 H Respiratory Rate 23 24 23 Blood Pressure 90/55 L 72/48 L Pulse Oximetry 92 L 91 L 01/12/18 21:00 01/12/18 21:30 01/12/18 22:00 Temperature Pulse Rate 97 H 97 H Respiratory Rate 17 20 Blood Pressure 86/52 L 78/52 L Pulse Oximetry 92 L 96 85 L 01/12/18 23:00 01/13/18 00:00 01/13/18 04:00 Temperature 97.5 F L 97.8 F Pulse Rate 94 H 91 H 95 H Respiratory Rate 18 18 20 Blood Pressure 88/51 L 72/49 L 92/55 L Pulse Oximetry 100 83 L 01/13/18 07:00 01/13/18 08:00 01/13/18 10:11 Temperature 97.3 F L Pulse Rate 94 H 95 H Respiratory Rate 16 Blood Pressure 93/56 L Pulse Oximetry 91 L 91 L 01/13/18 11:09 01/13/18 12:00 01/13/18 13:38 Temperature 98.4 F Pulse Rate 96 H 96 H 99 H Respiratory Rate 16 Blood Pressure 104/59 L Pulse Oximetry 01/13/18 15:16 Temperature Pulse Rate Respiratory Rate 18 Blood Pressure Pulse Oximetry Intake & Output 01/12/18 01/13/18 01/13/18 18:59 06:59 18:59 Intake Total 562 / 562 1100 / 1100 1999 Output Total 350 / 350 350 / 350 Balance 212 / 212 750 / 750 1999 Weight 58.7 kg Intake: IV 1100 / 1100 1999 D5W/1/2 NS Inj 1,000 ML @ Wide 1000 / 1000 Open IV.SIG .Q0M ONE Rx#: [id number] Levaquin 500 mg Premix Inj 500 100 / 100 mg In 100 ml @ 100 mls/hr IV. SIG Q24H [facility] Rx#:[id number] NS Inj 1,000 ML @ Wide Open IV. 1000 / 1000 SIG BOLUS ONE Rx#:[id number] NS Inj 500 ML @ As Directed IV. 1000 / 1000 SIG BOLUS ONE Rx#:[id number] Tube Feeding 562 / 562 Output: Urine 350 / 350 Urine Amount (Catheter) 350 / 350 Condom 350 / 350 Other: Date of Last Bowel Movement 01/12/18 01/12/18 Result Diagrams: 01/13/18 05:20 01/12/18 03:30 Other Results: Microbiology 01/12/18 08:45 Clean Catch Urine Urine Culture - Preliminary gram negative rods 01/12/18 08:45 Wound - Abdominal Gram Stain - Final 01/12/18 08:45 Wound - Abdominal Wound Culture - Preliminary gram negative rods Lucy albicans 01/12/18 20:40 Blood - Peripheral Aerobic Blood Culture - Preliminary No growth in 1 day 01/12/18 20:40 Blood - Peripheral Anaerobic Blood Culture - Preliminary No growth in 1 day 01/12/18 20:45 Blood - Peripheral Aerobic Blood Culture - Preliminary No growth in 1 day 01/12/18 20:45 Blood - Peripheral Anaerobic Blood Culture - Preliminary No growth in 1 day 12/27/17 10:37 Sputum - Endotracheal Gram Stain - Final 12/27/17 10:37 Sputum - Endotracheal Sputum Culture - Final Heavy growth normal respiratory [facility]: ITS Impressions Chest X-Ray 12/27/17 00:01 CONCLUSION: Persistent nonconsolidative airspace infiltrates in the left lower lung. Objective Remarks: GENERAL: 62-year-old cachectic male in no apparent distress. Communicating in writing. SKIN: Warm and dry. No rash HEAD: Atraumatic. Normocephalic. EYES: Pupils equal and round. No scleral icterus. No injection or drainage. ENT: No nasal bleeding or discharge. Mucous membranes pink and moist. Tongue less edematous protruding from mouth unable to open mouth lips slightly less edematous. Inability to view oral aperture or oral pharynx NECK: Trachea midline. No JVD. Noted right sided neck mass. 8.0 Shiley tracheostomy in situ CARDIOVASCULAR: Normal rate, regular rhythm. Right chest [id number] RESPIRATORY: On T-piece. No accessory muscle use. Clear to auscultation. Breath sounds equal bilaterally. GASTROINTESTINAL: Abdomen soft, non-tender, nondistended. No guarding. PEG tube insitu with some exudate greenish MUSCULOSKELETAL: Extremities without clubbing, cyanosis, or edema. No obvious deformities. NEUROLOGICAL: Arousable on the ventilator. Follows commands in all 4 extremities. Patient nodding head to yes and no questions, Assessment and Plan - Assessment and Plan Plan: Neuro/Psych: Acute Pain associated with head/neck cancer History of EtOH abuse Acetaminophen 650 mg every 6 hours as needed for pain and/or temperature Alprazolam 0.5 mg every 8 hours as needed for agitation Temazepam 15 mg at night as needed insomnia Continue gabapentin 300 mg every 8 hours Continue tizanidine 4 mg every 12 hours On Roxanol 4 milligram every 6 scheduled to discontinue methadone yesterday Continue morphine sulfate 2 mg IV every 2 hours as needed for breakthrough pain Respiratory: Acute on chronic hypoxic respiratory failure COPD exacerbation Lung mass Head and neck cancer -squamous cell carcinoma Chronic airway compromise Class IV Mallampati rating 12/20 S/P Emergent tracheostomy to secure airway, 8.0 Shiley 12/21 trach collar trials on .40% initiated. Patient placed back on CPAP 12/24 secondary to hypoxemia and worsening chest x-ray PRVC 20/500/1/5/100 Continue budesonide/formoterol 160/4.5 2 puffs twice daily Albuterol/ipratropium aerosols every 4 hours with albuterol aerosols every 2 hours as indicated for dyspnea Ventilator bundle ABG/chest x-ray Hematology oncology following for chemotherapy 12/22 Cardiovascular: History of hypertension History of hyperlipidemia Severe sepsis We will bolus with 1 L normal saline. Check CPK and troponin stat We will start on norepinephrine drip to maintain mean arterial pressure greater or equal 65 Holding home medications of lisinopril 5 mg daily for hypertension Holding home medications of pravastatin 40 mg daily for dyslipidemia /Renal: BMP pending. Monitor urine output with accurate I's and O's. Maintain condom catheter -- Strict I/Os FEN/GI: PEG placement 12/19 Nausea and vomiting Possible infection PEG tube History of chronic pancreatitis Cholelithiasis Hyponatremia History of gastroesophageal reflux disease Glucerna 1.5 currently at goal 70 cc/hr. minimal residuals noted. Currently at 30 cc an hour. Dietary consultation Lansoprazole 30 mg daily for GI prophylaxis Bowel regimen with docusate sodium 100 mg twice daily Currently in free water 200 cc every 8 hours per ID Heme/ID: Head and neck cancer -squamous cell carcinoma of the right tonsil Likely urosepsis Leukocytosis Normocytic anemia Hematology oncology following-patient was tentatively scheduled for chemotherapy to initiate 12/20 Received carbo/Taxol. 3 rounds. Currently on hold secondary to patient refusing radiation therapy. Patient was initiated on Levaquin and vancomycin on 12/20. now s/p full course of abx. Will treat with aztreonam, vancomycin and metronidazole 01/12 -wound -gram-negative tacos/yeast 01/12 -urine -gram-negative tacos Blood culture 01/12-NGTD Endocrine: Diabetes mellitus Glucose monitoring per ICU protocol beam dose every 6 hours aspart Currently on insulin detemir 6 units at night -- SSI Prophylaxis: GI Prophylaxis Lansoprazole DVT Prophylaxis -- SCDs Enoxaparin Lines: Left radial A-line dc'd 6/28, right chest [id number] Level 3 follow-up
[2018-01-13] MEDS ORDERED: Vancomycin Consult Pharmacy 1 EACH OTHER SCH (17:00)
[2018-01-13 17:14] LABS: Hematocrit 26.3 % (39.0-51.0); Hemoglobin 9.2 gm/dL (13.0-17.0); Mean Corpuscular HGB Conc 34.8 % (32.0-36.0); Mean Corpuscular Hemoglobin 31.1 pg (27.0-34.0); Mean Corpuscular Volume 89.3 fL (80.0-100.0); Mean Platelet Volume 8.9 fL (7.0-11.0); Platelet Count 313 th/mm3 (150-450); Red Blood Count 2.95 mil/mm3 (4.50-5.90); Red Cell Distribution Width 15.4 % (11.6-17.2); White Blood Count 26.6 th/mm3 (4.0-11.0)
[2018-01-13 17:25] LABS: Anion Gap 8 meq/L (5-15); Blood Urea Nitrogen 49 mg/dL (7-18); Calcium 8.3 mg/dL (8.5-10.1); Carbon Dioxide 30.5 meq/L (21.0-32.0); Chloride 94 meq/L (98-107); Glomerular Filtration Rate Greater Than 89 mL/min (>89); Glucose,Random 167 mg/dL (74-106); Magnesium 2.1 mg/dL (1.5-2.5); Phosphorus 4.7 mg/dL (2.5-4.9); Potassium 4.8 meq/L (3.5-5.1); Sodium 132 meq/L (136-145)
[2018-01-13 17:35] LABS: ABG Base Excess 4.7 mmol/L (-2-2); ABG PCO2 44 mmHg (38-42); ABG PO2 57 mmHG (61-120)
[2018-01-13] MEDS: Vancomycin Inj 1,000 MG in Sodium Chlor 0.9% Inj 250 ML IV.SIG SCH (17:37)
[2018-01-13] MEDS: Aztreonam Inj 2 GM in Sodium Chloride 0.9% Inj 100 ML IV.SIG SCH (17:39)
[2018-01-13] MEDS: metroNIDAZOLE 500 MG Tablet PO SCH (17:40)
[2018-01-13 17:58] LABS: Creatine Kinase 18 U/L (39-308)
--- NOTE | 2018-01-13 18:09 | P.PNPL ---
Subjective Interval history: V62 YO WM wit H&N CA,RF, Trach Put Back on vent Had hypotension, receeved Fluid bolus, normotensive now Tolerates TF Awake, follows commands Refused to go for radiation treatment Physical Exam Vital signs: Vital Signs 01/12/18 19:00 01/12/18 20:00 01/12/18 21:00 Temperature 98.2 F Pulse Rate 100 H 101 H 97 H Respiratory Rate 24 23 17 Blood Pressure 90/55 L 72/48 L 86/52 L Pulse Oximetry 92 L 91 L 92 L 01/12/18 21:30 01/12/18 22:00 01/12/18 23:00 Temperature Pulse Rate 97 H 94 H Respiratory Rate 20 18 Blood Pressure 78/52 L 88/51 L Pulse Oximetry 96 85 L 100 01/13/18 00:00 01/13/18 04:00 01/13/18 07:00 Temperature 97.5 F L 97.8 F Pulse Rate 91 H 95 H Respiratory Rate 18 20 Blood Pressure 72/49 L 92/55 L Pulse Oximetry 83 L 91 L 01/13/18 08:00 01/13/18 10:11 01/13/18 11:09 Temperature 97.3 F L Pulse Rate 94 H 95 H 96 H Respiratory Rate 16 Blood Pressure 93/56 L Pulse Oximetry 91 L 01/13/18 12:00 01/13/18 13:38 01/13/18 15:16 Temperature 98.4 F Pulse Rate 96 H 99 H Respiratory Rate 16 18 Blood Pressure 104/59 L Pulse Oximetry 01/13/18 16:00 Temperature 98.8 F Pulse Rate 106 H Respiratory Rate 16 Blood Pressure 99/59 L Pulse Oximetry 94 L Intake & Output 01/12/18 01/13/18 01/13/18 18:59 06:59 18:59 Intake Total 562 / 562 1099 / 1100 1999 Output Total 350 / 350 350 / 350 Balance 212 / 212 750 / 750 1999 Weight 58.7 kg Intake: IV 1100 / 1100 1999 D5W/1/2 NS Inj 1,000 ML @ Wide 1000 / 1000 Open IV.SIG .Q0M ONE Rx#: [id number] Levaquin 500 mg Premix Inj 500 100 / 100 mg In 100 ml @ 100 mls/hr IV. SIG Q24H [facility]ENDEN Rx#:[id number] NS Inj 1,000 ML @ Wide Open IV. 1000 / 1000 SIG BOLUS ONE Rx#:[id number] NS Inj 500 ML @ As Directed IV. 1000 / 1000 SIG BOLUS ONE Rx#:[id number] Tube Feeding 562 / 562 Output: Urine 350 / 350 Urine Amount (Catheter) 350 / 350 Condom 350 / 350 Other: Date of Last Bowel Movement 01/12/18 01/12/18 GENERAL: Elderly Wm, On Vent SKIN: Warm and dry. HEAD: Normocephalic. EYES: No scleral icterus. No injection or drainage. NECK: Supple, trachea midline. No JVD or lymphadenopathy. has Trach CARDIOVASCULAR: Regular rate and rhythm without murmurs, gallops, or rubs. RESPIRATORY: Breath sounds equal bilaterally. No accessory muscle use. GASTROINTESTINAL: Abdomen soft, non-tender, nondistended. Has PEG MUSCULOSKELETAL: No cyanosis, or edema. BACK: Nontender without obvious deformity. No CVA tenderness. - Urinary Catheter Management Indwelling Urethral Catheter Cath placed during this visit: yes, but has since been removed by the nurse Reason for continuing: Not indwelling catheter Insertion date: 12/20/17 Insertion time: 00:00 Removal date: 01/02/18 Removal time: 07:00 Condom Cath placed during this visit: yes Reason for continuing: Not indwelling catheter Insertion date: 01/07/18 Insertion time: 21:00 Assessment and Plan - Plan Resp failure, on Vent S/P Emergent trach Neck Mass H&N Ca COPD Aspiration PLAN: Vent support Wean Fi02 cont Abx Aerosol nebs Tube feeding Scopolamine patch q 72 hrs Check CXR
--- NOTE | 2018-01-13 18:20 | XR ---
EXAM DATE: 01/13/2018 6:14 PM EDT AGE/SEX: 62 years / Male INDICATIONS: Cough. CLINICAL DATA: This is the patient's subsequent encounter. Patient reports that signs and symptoms h ave been present for 2 weeks and indicates a pain score of 3/10. MEDICAL/SURGICAL HISTORY: . Cardiovascular disease. Hypertension. Gastroesophageal reflux disea se. Throat cancer, diabetes, atrial fibrillation. None. COMPARISON: [facility], CHEST 1V SINGLE AP, 12/27/2017. [facility], CHEST 1V SINGLE AP, 12/25/2017. [facility], CHEST S KRISSY AP, 12/24/2017. [facility], CHEST SINGLE AP, 12/23/2017. . FINDINGS: There is improved aeration in the left lower lung with interval resolution of consolidative infiltrat e. Some patchy areas of interstitial prominence are present in the lungs, similar to prior. Stable pr ominence of the central pulmonary vessels. The heart is normal in size. Mild elevation left hemidiaph ragm. No blunting of the costophrenic angles. [id number]-[id number] catheter tip in the right atrium. Tracheo stomy in place. CONCLUSION: Interval resolution of left lower lung consolidation with residual bilateral chronic interstitial pro minence. Electronically signed by: Anibal Álvarez MD 01/13/2018 6:18 PM EDT
--- NOTE | 2018-01-13 18:22 | XR ---
EXAM DATE: 01/13/2018 6:16 PM EDT AGE/SEX: 62 years / Male INDICATIONS: Urinary tract infection. CLINICAL DATA: This is the patient's subsequent encounter. Patient reports that signs and symptoms h ave been present for 2 weeks and indicates a pain score of 2/10. MEDICAL/SURGICAL HISTORY: . Cardiovascular disease. Hypertension. Gastroesophageal reflux disea se. throat cancer, diabetes, atrial fibrillation. None. COMPARISON: [facility] [place], ABDOMEN KUB ONLY, 12/19/2017. . FINDINGS: Gas in mildly prominent loops of small and large bowel very similar in appearance to prior examinati on. There is one loop of small bowel in the midline hypogastric region measuring 5.3 cm (previously m easured 4.5 cm). Percutaneous gastrostomy in place. Prominent splenic artery and SMA calcifications. The visualized lower lungs are clear. Osseous structures are intact. CONCLUSION: Nonspecific abdominal bowel gas pattern with one loop of small bowel measuring up to 5.4 cm. Recommen d serial films. Gastrostomy in place. Electronically signed by: Anibal Álvarez MD 01/13/2018 6:21 PM EDT
[2018-01-13 19:05] LABS: Lymphocytes 4 % (9-44); Metamyelocytes 1 % (0-1); Monocytes 9 % (0-8)
[2018-01-13 19:07] LABS: Platelet Estimate Normal (Normal); Platelet Morphology Normal (Normal)
[2018-01-13] MEDS: Sod Chloride 0.9% Inj 1,000 ML IV.CONT SCH (19:35)
[2018-01-13] MEDS: [UNRECOGNIZED DRUG - REMARK] T-DERMAL SCH (20:20)
[2018-01-13] MEDS: Scopalamine 1.5 MG Patch T-DERMAL SCH (20:20)
[2018-01-14] MEDS: Insulin NovoLOG Aspart Correctional Sugar Inj SQ SCH ×4 (00:01→17:53)
[2018-01-14] MEDS: metroNIDAZOLE 500 MG Tablet PO SCH ×4 (00:59→17:53)
[2018-01-14] MEDS: Artificial Tears Opth Drops 15 ML Bottle EACH EYE SCH ×3 (01:02→16:16)
[2018-01-14] MEDS: Aztreonam Inj 2 GM in Sodium Chloride 0.9% Inj 100 ML IV.SIG SCH ×3 (02:58→17:53)
[2018-01-14] MEDS: Morphine Sulfate Oral Liq 10 MG/0.5 ML Syringe G-TUBE SCH ×2 (02:58→08:00)
[2018-01-14 05:21] LABS: Baso % (Auto) 0.2 % (0.0-2.0); Hematocrit 28.3 % (39.0-51.0); Hemoglobin 9.5 gm/dL (13.0-17.0); Lymph % (Auto) 6.6 % (9.0-44.0); Mean Corpuscular HGB Conc 33.6 % (32.0-36.0); Mean Corpuscular Hemoglobin 30.3 pg (27.0-34.0); Mean Corpuscular Volume 90.1 fL (80.0-100.0); Mean Platelet Volume 8.6 fL (7.0-11.0); Mono # (Auto) 2.2 th/mm3 (0.0-0.9); Neut # (Auto) 12.4 th/mm3 (1.8-7.7); Neut % (Auto) 79.2 % (16.0-70.0); Platelet Count 311 th/mm3 (150-450); Red Blood Count 3.14 mil/mm3 (4.50-5.90); Red Cell Distribution Width 15.5 % (11.6-17.2); White Blood Count 15.6 th/mm3 (4.0-11.0)
[2018-01-14 05:36] LABS: Alanine Aminotransferase 9 U/L (12-78); Albumin 2.1 g/dL (3.4-5.0); Anion Gap 8 meq/L (5-15); Aspartate Aminotransferase 10 U/L (15-37); Blood Urea Nitrogen 58 mg/dL (7-18); Calcium 8.6 mg/dL (8.5-10.1); Carbon Dioxide 33.5 meq/L (21.0-32.0); Chloride 93 meq/L (98-107); Glomerular Filtration Rate Greater Than 89 mL/min (>89); Glucose,Random 186 mg/dL (74-106); Magnesium 2.2 mg/dL (1.5-2.5); Phosphorus 4.9 mg/dL (2.5-4.9); Potassium 4.5 meq/L (3.5-5.1); Sodium 134 meq/L (136-145)
[2018-01-14 05:39] LABS: Alkaline Phosphatase 97 U/L (45-117); Total Protein 5.8 g/dL (6.4-8.2)
[2018-01-14] MEDS: Gabapentin Liq 250 MG/5 ML UDC PO SCH ×3 (05:47→21:39)
[2018-01-14] MEDS: Sod Chloride 0.9% Inj 1,000 ML IV.CONT SCH ×2 (05:48→17:53)
[2018-01-14] MEDS: Vancomycin Inj 1,000 MG in Sodium Chlor 0.9% Inj 250 ML IV.SIG SCH ×2 (05:52→16:15)
--- NOTE | 2018-01-14 06:17 | XR ---
EXAM DATE: 01/14/2018 5:53 AM EDT AGE/SEX: 62 years / Male INDICATIONS: Evaluate for respiratory failure. CLINICAL DATA: This is the patient's subsequent encounter. Patient reports that signs and symptoms h ave been present for 1 month and indicates a pain score of Nonresponsive. MEDICAL/SURGICAL HISTORY: . Cardiovascular disease. Hypertension. Gastroesophageal reflux disea se. throat cancer, diabetes, atrial fibrillation . None. COMPARISON: [facility] [place], CHEST 1V SINGLE AP, 01/13/2018. . FINDINGS: Single AP view of the chest. Tracheostomy tube and right sided [id number]-h-Jhup remain in place. Slight increase in bilateral lower lung zone pulmonary parenchymal opacity. No evidence of pleural effusion or pneumothorax. CONCLUSION: Slight increase in bilateral right greater than left lower lung zone pulmonary opacity. Electronically signed by: Filiberto Hall MD 01/14/2018 6:15 AM EDT
--- NOTE | 2018-01-14 06:19 | XR ---
EXAM DATE: 01/14/2018 5:53 AM EDT AGE/SEX: 62 years / Male INDICATIONS: Evaluate for ileus. CLINICAL DATA: This is the patient's subsequent encounter. Patient reports that signs and symptoms h ave been present for 1 month and indicates a pain score of Nonresponsive. MEDICAL/SURGICAL HISTORY: . Cardiovascular disease. Hypertension. Gastroesophageal reflux disea se. throat cancer, diabetes, atrial fibrillation . None. COMPARISON: [facility], ABDOMEN 1V KUB, 01/13/2018. . FINDINGS: Single AP supine view of the abdomen. Scattered gas in large and small bowel again seen. The degree of distention slightly decreased when compared to the prior study. Diffuse arterial calcification. Mi ld degenerative findings of the lumbar spine. CONCLUSION: Nonspecific bowel gas pattern again seen with gas-filled large and small bowel. Slight decrease in di stention of the bowel. Electronically signed by: Filiberto Hall MD 01/14/2018 6:17 AM EDT
[2018-01-14] MEDS ORDERED: Sodium Chlor 0.9% Inj 500 ML IV.SIG ONE (06:53)
[2018-01-14] MEDS ORDERED: Diatrizoate Meglum/Diatrizoate Sod Liq 9 ML UDC PO ONE (08:00)
[2018-01-14] MEDS: Chlorhexidine Gluconate 0.12% Liq 15 ML UDC SWISH-SPIT SCH ×2 (08:00→21:40)
[2018-01-14] MEDS: Docusate Sodium Liq 100 MG/10 ML UDC G-TUBE SCH ×2 (08:00→21:38)
[2018-01-14] MEDS: Budesonide-Formoterol 160/4.5 MCG 6 GM Inhaler INH SCH ×3 (08:01→20:15)
[2018-01-14] MEDS ORDERED: Albumin Human 5% Inj 500 ML IV.SIG ONE (09:46)
[2018-01-14] MEDS ORDERED: Methylnaltrexone Inj 12 MG/0.6 ML Vial SQ ONE (09:52)
[2018-01-14 10:09] LABS: Lymphocytes 4 % (9-44); Monocytes 12 % (0-8); Platelet Estimate Normal (Normal); Platelet Morphology Normal (Normal)
--- NOTE | 2018-01-14 10:10 | P.PNCC ---
Subjective Subjective Remarks/Hospital Course: Remarks/Hospital Course This is a 62-year-old male with a past medical history of squamous cell carcinoma of the head and neck, lung mass COPD, hypertension diabetes with a history of tobacco abuse, that presented on 12/18. The patient regularly is seen at the [facility] however he was not afforded treatment at this time . The patient was admitted to the medical floor, hematology oncology had been consulted plans were for chemotherapy to be initiated today the patient underwent PEG placement yesterday. Late this afternoon the patient was noted to be hypoxemic with significant airway edema , O2 sat in the 80's, Pao2 59 on 100% nonrebreather ,in the setting of a large tumor mass .A Halicat was called , and the patient was emergently transferred to [facility] [place]. Upon transfer the patient was immediately out evaluated and noted to be in significant respiratory distress, oral airway significantly edematous tongue protruding out of mouth Mallampati unobtainable upon evaluation. The patient appeared to be alert and could not yes and no to questions unable to speak. Quick assessment of CT scans that were previously done of the neck showed a large tumor mass crossing midline. Dr. Cabello , Anesthesiologist in to evaluate patient at bedside discussed case with him. Emergency airway equipment placed at bedside trauma surgery was notified I spoke with Dr. Rangel, patient emergently scheduled for tracheostomy to secure airway. A left radial A-line was placed ABG on 100% nonrebreather was obtained prior to going PaO2 had risen to 60 on nonrebreather mask. 12/21: No acute events overnight. The patient underwent emergency tracheostomy to secure the airway last evening. Norepinephrine and fentanyl infusions have been discontinued this morning patient has been transitioned onto CPAP trials and denies any discomfort. Patient is communicating with board and marker. PEG tube in situ tube feedings Glucerna currently at 30 cc/an hour continue to be advanced to goal. FiO2 has been decreased to .45% 12/22: No acute events overnight. The patient was maintained on CPAP trials throughout the night and this afternoon plan trach collar trials this afternoon PT OT has been initiated. Patient tolerating tube feeds no residuals. 12/23: Patient progressing well currently on trach collar trials greater than 24 hours. Patient tolerating tube feeds diet. Chemotherapy initiated yesterday. Patient denies pain. 12/24: Late entry note patient seen at 11:40 AM. Overnight the patient became agitated pulling off lines and tubes. Patient had previous stated that he has an anxiety disorder ,Xanax was ordered however not given. Upon my evaluation this a.m. O2 saturation noted to be low patient placed on FiO2 of 80% stat ABG was performed to reveal hypoxemia the patient was placed back on CPAP stat chest x-ray was performed which showed worsening airspace disease in the bases. 12/25: Patient noted with episodes of nausea, tube feeds held. Zofran given for nausea. The patient continues to have increased FiO2 requirements the patient is being placed on trach collar during the day CPAP at night. 12/26: Vitals not documented. Currently on CPAP 10/5 and 40%. No bowel movements documented. Not on a bowel regimen. 12/27: Remains on mechanical ventilation via tracheostomy. On CPAP trials. 12/28: no changes. still with cpap trials. 12/29: tolerating t-piece trials. rested on cpap overnight. complaints of continued pain around tumor site, as well as significant secretions. 12/30: clinically doing well. denies complaints. asked that speech re-evaluate him because he would like to start eating real food again. plan for XRT to start today. 12/31: On mechanical ventilation via trach. Tolerating T piece trials 01/01: Remains on mechanical ventilation via trach. 01/02: On T-piece. Awaiting radiation today 01/13: Reconsult due to hypotension/aspiration with worsening oxygenation. Patient replaced back on the ventilator via tracheostomy with cuff inflated. Of note, patient has been refusing radiation therapy and his chemotherapy has been held for that reason by oncology. Patient with urinary tract infection/ becoming septic with possible infected PEG site as well. Subjective: 01/14: Patient plan for CT abdomen/pelvis today. White blood cell count improved. Remains on ventilator. Greater than 1 L from G-tube to drainage overnight. Objective Vital Signs / I&O: Vital Signs 01/13/18 10:11 01/13/18 11:09 01/13/18 12:00 Temperature Pulse Rate 95 H 96 H 96 H Respiratory Rate Blood Pressure Pulse Oximetry 01/13/18 13:38 01/13/18 15:16 01/13/18 16:00 Temperature 98.4 F 98.8 F Pulse Rate 99 H 106 H Respiratory Rate 16 Blood Pressure 104/59 L 99/59 L Pulse Oximetry 94 L 01/13/18 18:15 01/13/18 19:00 01/13/18 19:20 Temperature Pulse Rate 75 Respiratory Rate 21 21 Blood Pressure Pulse Oximetry 100 100 01/13/18 20:00 01/13/18 21:10 01/13/18 22:00 Temperature 97.4 F L Pulse Rate 108 H 107 H Respiratory Rate 20 Blood Pressure 115/71 Pulse Oximetry 98 99 01/13/18 23:48 01/14/18 00:00 01/14/18 02:00 Temperature 97.7 F Pulse Rate 108 H 109 H 108 H Respiratory Rate 19 26 H Blood Pressure 113/58 L Pulse Oximetry 96 92 L 01/14/18 04:00 01/14/18 04:23 01/14/18 06:00 Temperature 97.4 F L Pulse Rate 109 H 107 H 108 H Respiratory Rate 18 18 Blood Pressure 94/54 L Pulse Oximetry 91 L 94 L 01/14/18 07:00 01/14/18 08:00 01/14/18 09:30 Temperature Pulse Rate 100 H 100 H Respiratory Rate 17 18 17 Blood Pressure Pulse Oximetry Intake & Output 01/13/18 01/14/18 01/14/18 18:59 06:59 18:59 Intake Total 3350 / 3350 1000 / 1000 Output Total 350 / 350 2024 / 2024 Balance 3000 / 3000 -1025 / -1025 Weight 60 kg Intake: IV 3350 / 3350 1000 / 1000 NS Inj 1,000 ML @ 84 mls/hr IV. 1000 / 1000 CONT .[id number] [facility] Rx#:[id number] Azactam Inj 2 GM In NS Inj 100 100 / 100 ML @ 200 mls/hr IV.SIG Q8H [facility] Rx#:[id number] D5W/1/2 NS Inj 1,000 ML @ Wide 1000 / 1000 Open IV.SIG .Q0M ONE Rx#: [id number] LR 1000 mL Inj 1,000 ML @ Wide 1000 / 1000 Open IV.SIG BOLUS ONE Rx#: [id number] NS Inj 500 ML @ As Directed IV. 1000 / 1000 SIG BOLUS ONE Rx#:[id number] Vancomycin Inj 1,000 MG In NS 250 / 250 Inj 250 ML @ 250 mls/hr IV.SIG Q12H [facility] Rx#:[id number] Output: Urine Amount (Catheter) 350 / 350 325 / 325 Condom 350 / 350 325 / 325 Gastric Drainage 1700 / 1700 Left Lower Quadrant Gastrostomy 1700 / 1700 Tube (PEG) Other: # Emeses 1 Result Diagrams: 01/14/18 04:49 01/14/18 04:49 Other Results: Microbiology 01/12/18 08:45 Wound - Abdominal Gram Stain - Final 01/12/18 08:45 Wound - Abdominal Wound Culture - Preliminary Escherichia coli Lucy albicans Group D Enterococcus 01/13/18 18:14 Sputum - Endotracheal Gram Stain - Final 01/12/18 08:45 Clean Catch Urine Urine Culture - Preliminary gram negative rods 01/12/18 20:40 Blood - Peripheral Aerobic Blood Culture - Preliminary No growth in 1 day 01/12/18 20:40 Blood - Peripheral Anaerobic Blood Culture - Preliminary No growth in 1 day 01/12/18 20:45 Blood - Peripheral Aerobic Blood Culture - Preliminary No growth in 1 day 01/12/18 20:45 Blood - Peripheral Anaerobic Blood Culture - Preliminary No growth in 1 day 12/27/17 10:37 Sputum - Endotracheal Gram Stain - Final 12/27/17 10:37 Sputum - Endotracheal Sputum Culture - Final Heavy growth normal respiratory [facility]: Chest X-Ray 12/25/17 06:00 CONCLUSION: Support apparatus unchanged. Stable basilar airspace disease and trace pleural fluid. Chest X-Ray 12/27/17 00:01 CONCLUSION: Persistent nonconsolidative airspace infiltrates in the left lower lung. Abdomen X-Ray 01/13/18 00:00 CONCLUSION: Nonspecific abdominal bowel gas pattern with one loop of small bowel measuring up to 5.4 cm. Recommend serial films. Gastrostomy in place. Chest X-Ray 01/13/18 00:00 CONCLUSION: Interval resolution of left lower lung consolidation with residual bilateral chronic interstitial prominence. Abdomen X-Ray 01/14/18 00:01 CONCLUSION: Nonspecific bowel gas pattern again seen with gas-filled large and small bowel. Slight decrease in distention of the bowel. Chest X-Ray 01/14/18 06:00 CONCLUSION: Slight increase in bilateral right greater than left lower lung zone pulmonary opacity. Objective Remarks: GENERAL: 62-year-old cachectic male in no apparent distress. Communicating in writing. SKIN: Warm and dry. No rash HEAD: Atraumatic. Normocephalic. EYES: Pupils equal and round. No scleral icterus. No injection or drainage. ENT: No nasal bleeding or discharge. Mucous membranes pink and moist. Tongue less edematous protruding from mouth unable to open mouth lips slightly less edematous. Inability to view oral aperture or oral pharynx NECK: Trachea midline. No JVD. Noted right sided neck mass. 8.0 Shiley tracheostomy in situ CARDIOVASCULAR: Normal rate, regular rhythm. Right chest [id number]-[id number]-Ijbb RESPIRATORY: On T-piece. No accessory muscle use. Clear to auscultation. Breath sounds equal bilaterally. GASTROINTESTINAL: Abdomen soft, non-tender, slightly distended with hypoactive bowel sounds appreciated. No high-pitched sounds.. No guarding. PEG tube insitu with some exudate greenish MUSCULOSKELETAL: Extremities without clubbing, cyanosis, or edema. No obvious deformities. NEUROLOGICAL: Arousable on the ventilator. Follows commands in all 4 extremities. Patient nodding head to yes and no questions, Assessment and Plan - Assessment and Plan Plan: Neuro/Psych: Acute Pain associated with head/neck cancer History of EtOH abuse Acetaminophen 650 mg every 6 hours as needed for pain and/or temperature Alprazolam 0.5 mg every 8 hours as needed for agitation Temazepam 15 mg at night as needed insomnia Continue gabapentin 300 mg every 8 hours Continue tizanidine 4 mg every 12 hours On Roxanol 4 milligram every 6 scheduled currently -hold secondary to ileus noted discontinued methadone 01/12 Continue morphine sulfate 2 mg IV every 2 hours as needed for breakthrough pain Respiratory: Acute on chronic hypoxic respiratory failure COPD exacerbation Lung mass Head and neck cancer -squamous cell carcinoma Chronic airway compromise Class IV Mallampati rating 12/20 S/P Emergent tracheostomy to secure airway, 8.0 [facility] 12/21 trach collar trials on .40% initiated. Patient placed back on CPAP 12/24 secondary to hypoxemia and worsening chest x-ray PRVC 16/500///50 Continue budesonide/formoterol 160/4.5 2 puffs twice daily Albuterol/ipratropium aerosols every 4 hours with albuterol aerosols every 2 hours as indicated for dyspnea Ventilator bundle ABG/chest x-ray in a.m. 01/15 Cardiovascular: History of hypertension History of hyperlipidemia Severe sepsis Continue with normal saline at 84 cc an hour. Bolus with albumin 5% 500 cc 1 now.. Check CPK and troponin We will start on norepinephrine drip to maintain mean arterial pressure greater or equal 65 Holding home medications of lisinopril 5 mg daily for hypertension Holding home medications of pravastatin 40 mg daily for dyslipidemia /Renal: BMP pending. Monitor urine output with accurate I's and O's. Maintain condom catheter -- Strict I/Os FEN/GI: PEG placement 12/19 Nausea and vomiting Possible infection PEG tube History of chronic pancreatitis Cholelithiasis Hyponatremia Hypoalbuminemia History of gastroesophageal reflux disease Glucerna 1.5 with previous 70 cc/hr. on hold Lansoprazole 30 mg daily for GI prophylaxis Bowel regimen with docusate sodium 100 mg twice daily Currently in free water 100 cc every 8 hours to maintain PEG tube patency KUB revealed small/large bowel gas exchange. NG tube currently to suction. Check CT abdomen/pelvis today. TB the same was somewhat improved with for distention. Methylnaltrexone 12 mg subcu 1 now. Heme/ID: Head and neck cancer -squamous cell carcinoma of the right tonsil Likely urosepsis Leukocytosis Normocytic anemia Hematology oncology following-patient was tentatively scheduled for chemotherapy to initiate 12/20 Received carbo/Taxol. 3 rounds. Currently on hold secondary to patient refusing radiation therapy. Patient was initiated on levofloxacin and vancomycin on 12/20. now s/p full course of abx. Will treat with aztreonam, vancomycin and metronidazole day #2. E. coli is resistant to levofloxacin 01/12 -wound -E. coli, C. albicans, group D enterococcus 01/12 -urine -gram-negative tacos Blood culture 01/12-NGTD Endocrine: Diabetes mellitus Glucose monitoring per ICU protocol beam dose every 6 hours aspart Currently on insulin detemir 6 units at night. Holding while n.p.o. -- SSI Prophylaxis: GI Prophylaxis Lansoprazole DVT Prophylaxis -- SCDs Enoxaparin Lines: Left radial A-line dc'd 12/22, right chest [id number]-[id number] Level 3 follow-up
[2018-01-14] MEDS: Enoxaparin Inj 40 MG/0.4 ML Syringe SQ SCH (10:59)
--- NOTE | 2018-01-14 13:38 | P.PNPL ---
Subjective Interval history: 62 YO WM wit H&N CA,RF, Trach Put Back on vent Had hypotension, receeved Fluid bolus, normotensive now Tolerates TF Awake, follows commands Physical Exam Vital signs: Vital Signs 01/13/18 13:38 01/13/18 15:16 01/13/18 16:00 Temperature 98.4 F 98.8 F Pulse Rate 99 H 106 H Respiratory Rate 16 18 16 Blood Pressure 104/59 L 99/59 L Pulse Oximetry 94 L 01/13/18 18:15 01/13/18 19:00 01/13/18 19:20 Temperature Pulse Rate 75 Respiratory Rate 21 21 Blood Pressure Pulse Oximetry 100 100 01/13/18 20:00 01/13/18 21:10 01/13/18 22:00 Temperature 97.4 F L Pulse Rate 108 H 107 H Respiratory Rate 20 Blood Pressure 115/71 Pulse Oximetry 98 99 01/13/18 23:48 01/14/18 00:00 01/14/18 02:00 Temperature 97.7 F Pulse Rate 108 H 109 H 108 H Respiratory Rate 19 26 H Blood Pressure 113/58 L Pulse Oximetry 96 92 L 01/14/18 04:00 01/14/18 04:23 01/14/18 06:00 Temperature 97.4 F L Pulse Rate 109 H 107 H 108 H Respiratory Rate 18 18 Blood Pressure 94/54 L Pulse Oximetry 91 L 94 L 01/14/18 07:00 01/14/18 08:00 01/14/18 09:30 Temperature 98.6 F Pulse Rate 100 H 105 H 100 H Respiratory Rate 17 18 17 Blood Pressure 99/54 L Pulse Oximetry 95 01/14/18 10:00 01/14/18 12:00 01/14/18 12:25 Temperature 98.7 F Pulse Rate 99 H 93 H Respiratory Rate 18 18 Blood Pressure 94/56 L Pulse Oximetry 96 96 Intake & Output 01/13/18 01/14/18 01/14/18 18:59 06:59 18:59 Intake Total 3350 / 3350 1100 / 1100 Output Total 350 / 350 2024 Balance 3000 / 3000 -925 / -925 Weight 60 kg Intake: IV 3350 / 3350 1100 / 1100 NS Inj 1,000 ML @ 84 mls/hr IV. 1000 / 1000 CONT .[id number] [facility] Rx#:[id number] Azactam Inj 2 GM In NS Inj 100 100 / 100 100 / 100 ML @ 200 mls/hr IV.SIG Q8H [facility] Rx#:[id number] D5W/1/2 NS Inj 1,000 ML @ Wide 1000 / 1000 Open IV.SIG .Q0M ONE Rx#: [id number] LR 1000 mL Inj 1,000 ML @ Wide 1000 / 1000 Open IV.SIG BOLUS ONE Rx#: [id number] NS Inj 500 ML @ As Directed IV. 1000 / 1000 SIG BOLUS ONE Rx#:[id number] Vancomycin Inj 1,000 MG In NS 250 / 250 Inj 250 ML @ 250 mls/hr IV.SIG Q12H [facility] Rx#:[id number] Output: Urine Amount (Catheter) 350 / 350 325 / 325 Condom 350 / 350 325 / 325 Gastric Drainage 1700 / 1700 Left Lower Quadrant Gastrostomy 1700 / 1700 Tube (PEG) Other: # Emeses 1 GENERAL: MBMN, on Vent Awake, follows commands SKIN: Warm and dry. HEAD: Normocephalic. EYES: No scleral icterus. No injection or drainage. NECK: Supple, trachea midline. No JVD or lymphadenopathy. CARDIOVASCULAR: Regular rate and rhythm without murmurs, gallops, or rubs. RESPIRATORY: Breath sounds equal bilaterally. No accessory muscle use. GASTROINTESTINAL: Abdomen soft, non-tender, nondistended. MUSCULOSKELETAL: No cyanosis, or edema. BACK: Nontender without obvious deformity. No CVA tenderness. - Urinary Catheter Management Indwelling Urethral Catheter Cath placed during this visit: yes, but has since been removed by the nurse Reason for continuing: Not indwelling catheter Insertion date: 12/20/17 Insertion time: 00:00 Removal date: 01/02/18 Removal time: 07:00 Condom Cath placed during this visit: yes Reason for continuing: Not indwelling catheter Insertion date: 01/07/18 Insertion time: 21:00 Assessment and Plan - Plan Resp failure, on Vent S/P Emergent trach Neck Mass H&N Ca COPD Aspiration PLAN: Vent support Wean Fi02 cont Abx Aerosol nebs Tube feeding Scopolamine patch q 72 hrs
--- NOTE | 2018-01-14 15:02 | ECG ---
Date Performed: 01/13/2018 Time Performed: 18:18:51 PTAGE: 62 years EKG: Sinus tachycardia. Right bundle branch block. generalized low voltage. When compared to pre vious tracing, Qrs voltage is somewhat Smaller, otherwise no significant change. Abnormal ECG PREVIOUS TRACING : 12/18/2017 01.28 DOCTOR: Rafy Dillon Interpretating Date/Time 01/14/2018 15:00:46
--- NOTE | 2018-01-14 17:57 | CT ---
EXAM DATE: 01/14/2018 5:26 PM EDT AGE/SEX: 62 years / Male INDICATIONS: Abdominal pain, ileus. CLINICAL DATA: This is the patient's initial encounter. Patient reports that signs and symptoms have been present for 1 day and indicates a pain score of 5/10. MEDICAL/SURGICAL HISTORY: Chronic obstructive pulmonary disease. Pancreatitis. head and neck c ancer, lung mass . bowel resection, back surgery ORAL CONTRAST: Prescribed oral contrast ingested. RADIATION DOSE: 11.02 CTDI (mGy) COMPARISON: [facility] [place] ABDOMEN & PELVIS W CONTRAST, 10/14/2016. . TECHNIQUE: Multiple contiguous axial images were obtained through the abdomen and pelvis following b olus infusion of 75 ml Omnipaque 350 (iohexol) nonionic water-soluble contrast as a single exam dos e. Prescribed oral contrast ingested. Using automated exposure control and adjustment of the mA and/ or kV according to patient size, radiation dose was kept as low as reasonably achievable to obtain op timal diagnostic quality images. DICOM format image data is available electronically for review and comparison. FINDINGS: Lower Lungs: There is underlying emphysema in the lung bases with small pleural effusions and mild at electasis. There are 2 new pulmonary nodules in the right lower lobe. The larger measures 1.2 cm and the smaller measures approximately 6 mm. Liver: The liver has a homogeneous density without space-occupying lesion. There is no dilation of th e biliary tree. There are multiple small gallstones layering dependently in the gallbladder with no w all thickening. The gallbladder is decompressed. Spleen: Homogeneous density without enlargement. Pancreas: There is evidence of chronic pancreatitis with multiple punctate calcifications in the hea d and body of the pancreas. Body and tail are atrophic and there is dilatation of pancreatic duct up to approximately 7 mm. There is no focal mass. Kidneys: Normal in size and shape. No evidence of a solid mass. The renal collecting systems are mil dly prominent and there is mild prominence of the proximal ureters with no ureteral calculi. There ar e multiple small bilateral renal calculi again noted. Adrenal Glands: Unremarkable. Aorta: The aorta and proximal iliac vessels are grossly unremarkable without aneurysmal dilation. Bowel/Mesentery: A percutaneous gastrostomy tube is present in the stomach. There are multiple loops of borderline dilated air-containing small bowel with no focal inflammatory change. There is contras t noted segmentally in the colon. There is no free air. There is a small to moderate amount of fluid in the posterior pelvis. Abdominal Wall: Intact. Retroperitoneum: No evidence of adenopathy in the retrocrural, para-aortic, or deep pelvic regions. Bladder: The bladder is distended with a small amount of intraluminal air as well as multiple small linear collections of air along the wall of the bladder. There is apparent wall thickening versus flu id along the right side of the bladder wall There is no focal soft tissue mass. The bladder rises int o the lower abdomen displacing the bowel loops. In addition there are multiple small nodular areas of abnormal enhancement along the posterior bladder wall best seen on axial image #76. The largest of t hese measures up to approximately 1 cm. Reproductive Organs: No abnormal masses or calcifications seen. Inguinal: The inguinal region is unremarkable without evidence of adenopathy. Bony Structures: Unremarkable. CONCLUSION: 1. Abnormal urinary bladder with multiple small gas collections along the bladder wall with apparent mild thickening or adjacent fluid. There is small amount of intraluminal air. The findings are of co ncern for emphysematous cystitis. In addition there are multiple small enhancing nodule lower areas a long the posterior aspect of the bladder which could indicate tumor. 2. 2 new small right pulmonary nodules. This is of concern for metastatic disease. 3. Nonspecific bowel gas pattern most characteristic of an ileus. There is a small to moderate amoun t of fluid in the chest or pelvis. 4. Multiple bilateral renal calculi. There is mild prominence of the collecting systems and ureters which likely is secondary to bladder abnormality. 5. Cholelithiasis. 6. Chronic pancreatitis. The pancreatic duct now appears mildly dilated. These findings were called to Dr. Humphrey at 1755 hours. Electronically signed by: Bret Peterson MD 01/14/2018 5:56 PM EDT
[2018-01-14] MEDS: Morphine Inj 4 MG/ML Vial IV.PUSH PRN (21:38)
[2018-01-14] MEDS: Polyethylene Glycol 3350 17 GM Packet G-TUBE SCH (21:40)
[2018-01-14] MEDS: Sennosides Liq 8.8 MG/5 ML UDC G-TUBE SCH (21:40)
[2018-01-15] MEDS: Morphine Inj 4 MG/ML Vial IV.PUSH PRN ×4 (00:39→19:36)
[2018-01-15] MEDS: Insulin NovoLOG Aspart Correctional Sugar Inj SQ SCH ×4 (00:41→17:20)
[2018-01-15] MEDS: metroNIDAZOLE 500 MG Tablet PO SCH ×4 (00:41→17:19)
[2018-01-15] MEDS: Sod Chloride 0.9% Inj 1,000 ML IV.CONT SCH ×3 (02:34→17:20)
[2018-01-15] MEDS: Aztreonam Inj 2 GM in Sodium Chloride 0.9% Inj 100 ML IV.SIG SCH ×3 (02:35→17:19)
[2018-01-15] MEDS: Artificial Tears Opth Drops 15 ML Bottle EACH EYE SCH ×3 (02:35→17:20)
[2018-01-15 03:54] LABS: Baso % (Auto) 0.2 % (0.0-2.0); Eos % (Auto) 0.1 % (0.0-4.0); Hematocrit 24.4 % (39.0-51.0); Hemoglobin 8.1 gm/dL (13.0-17.0); Lymph # (Auto) 1.2 th/mm3 (1.0-4.8); Lymph % (Auto) 12.7 % (9.0-44.0); Mean Corpuscular HGB Conc 33.1 % (32.0-36.0); Mean Corpuscular Hemoglobin 29.7 pg (27.0-34.0); Mean Corpuscular Volume 89.8 fL (80.0-100.0); Mean Platelet Volume 8.5 fL (7.0-11.0); Mono # (Auto) 1.5 th/mm3 (0.0-0.9); Platelet Count 246 th/mm3 (150-450); Red Blood Count 2.71 mil/mm3 (4.50-5.90); Red Cell Distribution Width 14.9 % (11.6-17.2); White Blood Count 9.7 th/mm3 (4.0-11.0)
[2018-01-15 04:32] LABS: Alanine Aminotransferase 7 U/L (12-78); Albumin 2.2 g/dL (3.4-5.0); Alkaline Phosphatase 82 U/L (45-117); Anion Gap 6 meq/L (5-15); Aspartate Aminotransferase 8 U/L (15-37); Blood Urea Nitrogen 34 mg/dL (7-18); Calcium 7.9 mg/dL (8.5-10.1); Carbon Dioxide 33.8 meq/L (21.0-32.0); Chloride 98 meq/L (98-107); Glomerular Filtration Rate Greater Than 89 mL/min (>89); Glucose,Random 132 mg/dL (74-106); Magnesium 2.1 mg/dL (1.5-2.5); Phosphorus 3.2 mg/dL (2.5-4.9); Potassium 3.5 meq/L (3.5-5.1); Sodium 138 meq/L (136-145); Total Protein 5.3 g/dL (6.4-8.2); Vancomycin,Trough 5.9 mcg/mL (5.0-10.0)
[2018-01-15] MEDS ORDERED: Pharmacy Ordered Lab Info OTHER ONE (04:45)
--- NOTE | 2018-01-15 05:58 | XR ---
EXAM DATE: 01/15/2018 5:53 AM EDT AGE/SEX: 62 years / Male INDICATIONS: Evaluate for ileus. CLINICAL DATA: This is the patient's subsequent encounter. Patient reports that signs and symptoms h ave been present for 1 month and indicates a pain score of Nonresponsive. MEDICAL/SURGICAL HISTORY: . Cardiovascular disease. Hypertension. Gastroesophageal reflux disea se. throat cancer, diabetes, atrial fibrillation . None. COMPARISON: [facility], ABDOMEN 1V KUB, 01/14/2018. . FINDINGS: 2 AP supine views of the abdomen. Scattered gas and stool in mildly distended air-filled colon. Francisca ral air filled nondilated loops of small bowel again seen. No significant interval change. CONCLUSION: Nonspecific bowel gas pattern. No significant interval change. Electronically signed by: Filiberto Hall MD 01/15/2018 5:57 AM EDT
[2018-01-15] MEDS: Vancomycin Inj 1,000 MG in Sodium Chlor 0.9% Inj 250 ML IV.SIG SCH ×3 (07:19→21:54)
[2018-01-15] MEDS: Gabapentin Liq 250 MG/5 ML UDC PO SCH ×3 (07:20→21:55)
[2018-01-15] MEDS ORDERED: Potassium Chlor 40 mEq Premix 40 MEQ/100 ML PIGGYBACK IV.SIG ONE (07:30)
[2018-01-15] MEDS: Budesonide-Formoterol 160/4.5 MCG 6 GM Inhaler INH SCH ×2 (07:58→20:40)
[2018-01-15] MEDS: Polyethylene Glycol 3350 17 GM Packet G-TUBE SCH ×2 (08:25→21:57)
[2018-01-15] MEDS: Docusate Sodium Liq 100 MG/10 ML UDC G-TUBE SCH ×2 (08:25→21:56)
[2018-01-15] MEDS: Chlorhexidine Gluconate 0.12% Liq 15 ML UDC SWISH-SPIT SCH ×2 (08:26→21:57)
[2018-01-15] MEDS: Sennosides Liq 8.8 MG/5 ML UDC G-TUBE SCH ×2 (08:27→21:57)
[2018-01-15] MEDS: Norepinephrine Inj 16 MG in Sodium Chlor 0.9% Inj 234 ML IV.CONT PRN (09:06)
[2018-01-15] MEDS ORDERED: Dexmedetomidine Inj 800 MCG in Sodium Chlor 0.9% Inj 42 ML IV.CONT PRN (09:06)
--- NOTE | 2018-01-15 09:18 | P.PNCC ---
Subjective Subjective Remarks/Hospital Course: Remarks/Hospital Course This is a 62-year-old male with a past medical history of squamous cell carcinoma of the head and neck, lung mass COPD, hypertension diabetes with a history of tobacco abuse, that presented on 12/18. The patient regularly is seen at the [facility] however he was not afforded treatment at this time . The patient was admitted to the medical floor, hematology oncology had been consulted plans were for chemotherapy to be initiated today the patient underwent PEG placement yesterday. Late this afternoon the patient was noted to be hypoxemic with significant airway edema , O2 sat in the 80's, Pao2 59 on 100% nonrebreather ,in the setting of a large tumor mass .A Halicat was called , and the patient was emergently transferred to [facility] [place]. Upon transfer the patient was immediately out evaluated and noted to be in significant respiratory distress, oral airway significantly edematous tongue protruding out of mouth Mallampati unobtainable upon evaluation. The patient appeared to be alert and could not yes and no to questions unable to speak. Quick assessment of CT scans that were previously done of the neck showed a large tumor mass crossing midline. Dr. Cabello , Anesthesiologist in to evaluate patient at bedside discussed case with him. Emergency airway equipment placed at bedside trauma surgery was notified I spoke with Dr. Rangel, patient emergently scheduled for tracheostomy to secure airway. A left radial A-line was placed ABG on 100% nonrebreather was obtained prior to going PaO2 had risen to 60 on nonrebreather mask. 12/21: No acute events overnight. The patient underwent emergency tracheostomy to secure the airway last evening. Norepinephrine and fentanyl infusions have been discontinued this morning patient has been transitioned onto CPAP trials and denies any discomfort. Patient is communicating with board and marker. PEG tube in situ tube feedings Glucerna currently at 30 cc/an hour continue to be advanced to goal. FiO2 has been decreased to .45% 12/22: No acute events overnight. The patient was maintained on CPAP trials throughout the night and this afternoon plan trach collar trials this afternoon PT OT has been initiated. Patient tolerating tube feeds no residuals. 12/23: Patient progressing well currently on trach collar trials greater than 24 hours. Patient tolerating tube feeds diet. Chemotherapy initiated yesterday. Patient denies pain. 12/24: Late entry note patient seen at 11:40 AM. Overnight the patient became agitated pulling off lines and tubes. Patient had previous stated that he has an anxiety disorder ,Xanax was ordered however not given. Upon my evaluation this a.m. O2 saturation noted to be low patient placed on FiO2 of 80% stat ABG was performed to reveal hypoxemia the patient was placed back on CPAP stat chest x-ray was performed which showed worsening airspace disease in the bases. 12/25: Patient noted with episodes of nausea, tube feeds held. Zofran given for nausea. The patient continues to have increased FiO2 requirements the patient is being placed on trach collar during the day CPAP at night. 12/26: Vitals not documented. Currently on CPAP 10/5 and 40%. No bowel movements documented. Not on a bowel regimen. 12/27: Remains on mechanical ventilation via tracheostomy. On CPAP trials. 12/28: no changes. still with cpap trials. 12/29: tolerating t-piece trials. rested on cpap overnight. complaints of continued pain around tumor site, as well as significant secretions. 12/30: clinically doing well. denies complaints. asked that speech re-evaluate him because he would like to start eating real food again. plan for XRT to start today. 12/31: On mechanical ventilation via trach. Tolerating T piece trials 01/01: Remains on mechanical ventilation via trach. 01/02: On T-piece. Awaiting radiation today 01/13: Reconsult due to hypotension/aspiration with worsening oxygenation. Patient replaced back on the ventilator via tracheostomy with cuff inflated. Of note, patient has been refusing radiation therapy and his chemotherapy has been held for that reason by oncology. Patient with urinary tract infection/ becoming septic with possible infected PEG site as well. 01/14: Patient plan for CT abdomen/pelvis today. White blood cell count improved. Remains on ventilator. Greater than 1 L from G-tube to drainage overnight Subjective: 01/15: Afebrile. Noted CT abdomen/pelvis revealed emphysematous cystitis. Discussed with urology. Tavarez has been placed. Will evaluate today. Currently on low-dose norepinephrine. Continues to have ileus.. Objective Vital Signs / I&O: Vital Signs 01/14/18 09:30 01/14/18 10:00 01/14/18 12:00 Temperature 98.7 F Pulse Rate 100 H 99 H 93 H Respiratory Rate 17 18 Blood Pressure 94/56 L Pulse Oximetry 96 01/14/18 12:25 01/14/18 14:00 01/14/18 15:00 Temperature Pulse Rate 93 H 99 H Respiratory Rate 18 20 Blood Pressure Pulse Oximetry 96 96 01/14/18 16:00 01/14/18 16:13 01/14/18 18:00 Temperature 98.7 F Pulse Rate 97 H 100 H 107 H Respiratory Rate 17 19 Blood Pressure 87/52 L Pulse Oximetry 100 01/14/18 20:00 01/14/18 20:11 01/14/18 22:00 Temperature Pulse Rate 96 H 96 H 96 H Respiratory Rate 18 Blood Pressure Pulse Oximetry 97 01/14/18 23:52 01/15/18 00:00 01/15/18 00:45 Temperature Pulse Rate 95 H 96 H 97 H Respiratory Rate 18 19 Blood Pressure 100/58 L Pulse Oximetry 92 L 91 L 01/15/18 01:00 01/15/18 01:15 01/15/18 01:30 Temperature Pulse Rate 95 H 96 H 95 H Respiratory Rate 21 17 18 Blood Pressure 90/55 L 91/50 L 95/52 L Pulse Oximetry 92 L 92 L 92 L 01/15/18 01:45 01/15/18 02:00 01/15/18 02:15 Temperature Pulse Rate 95 H 95 H 95 H Respiratory Rate 17 19 20 Blood Pressure 94/52 L 95/51 L 99/57 L Pulse Oximetry 92 L 92 L 91 L 01/15/18 02:30 01/15/18 02:45 01/15/18 03:00 Temperature Pulse Rate 96 H 97 H 96 H Respiratory Rate 18 17 16 Blood Pressure 96/54 L 100/53 L 96/55 L Pulse Oximetry 92 L 94 L 93 L 01/15/18 03:15 01/15/18 03:30 01/15/18 03:45 Temperature Pulse Rate 94 H 92 H 92 H Respiratory Rate 24 28 H 27 H Blood Pressure 90/55 L 87/48 L 85/50 L Pulse Oximetry 90 L 90 L 89 L 01/15/18 03:52 01/15/18 04:00 01/15/18 04:15 Temperature Pulse Rate 90 90 Respiratory Rate 18 16 17 Blood Pressure 78/46 L 81/51 L Pulse Oximetry 92 L 94 L 93 L 01/15/18 04:30 01/15/18 04:45 01/15/18 04:48 Temperature Pulse Rate 87 87 88 Respiratory Rate 19 18 20 Blood Pressure 82/52 L 79/51 L 81/52 L Pulse Oximetry 94 L 94 L 94 L 01/15/18 05:00 01/15/18 05:15 01/15/18 05:30 Temperature Pulse Rate 86 89 82 Respiratory Rate 18 28 H 24 Blood Pressure 75/49 L 81/51 L 75/48 L Pulse Oximetry 94 L 94 L 94 L 01/15/18 05:45 01/15/18 06:00 01/15/18 07:00 Temperature Pulse Rate 84 84 82 Respiratory Rate 19 18 18 Blood Pressure 81/54 L 81/50 L 76/50 L Pulse Oximetry 94 L 94 L 93 L 01/15/18 07:01 01/15/18 07:55 Temperature Pulse Rate 83 Respiratory Rate 21 10 L Blood Pressure 78/51 L Pulse Oximetry 93 L 93 L Intake & Output 01/14/18 01/15/18 01/15/18 18:59 06:59 18:59 Intake Total 1600 / 1600 1000 / 1000 Output Total 3400 / 3400 Balance -1800 / -1800 1000 / 1000 Intake: IV 1200 / 1200 1000 / 1000 NS Inj 1,000 ML @ 84 mls/hr IV. 1000 / 1000 1000 / 1000 CONT .[id number] [facility] Rx#:[id number] Azactam Inj 2 GM In NS Inj 100 200 / 200 ML @ 200 mls/hr IV.SIG Q8H [facility] Rx#:[id number] Oral 0 / 0 Tube Feeding 0 / 0 Water Bolus Amount 400 / 400 Output: Emesis 1700 / 1700 Urine Amount (Catheter) 1700 / 1700 Condom 700 / 700 Indwelling Urethral Catheter 1000 / 1000 Other: Date of Last Bowel Movement 01/13/18 # Bowel Movements 0 Result Diagrams: 01/15/18 03:20 01/15/18 03:20 Other Results: Microbiology 01/13/18 18:14 Sputum - Endotracheal Gram Stain - Final 01/13/18 18:14 Sputum - Endotracheal Sputum Culture - Preliminary gram negative rods 01/12/18 08:45 Clean Catch Urine Urine Culture - Final Escherichia coli 01/12/18 20:40 Blood - Peripheral Aerobic Blood Culture - Preliminary No growth in 2 days 01/12/18 20:40 Blood - Peripheral Anaerobic Blood Culture - Preliminary No growth in 2 days 01/12/18 20:45 Blood - Peripheral Aerobic Blood Culture - Preliminary No growth in 2 days 01/12/18 20:45 Blood - Peripheral Anaerobic Blood Culture - Preliminary No growth in 2 days 01/12/18 08:45 Wound - Abdominal Gram Stain - Final 01/12/18 08:45 Wound - Abdominal Wound Culture - Preliminary Escherichia coli Lucy albicans Group D Enterococcus 12/27/17 10:37 Sputum - Endotracheal Gram Stain - Final 12/27/17 10:37 Sputum - Endotracheal Sputum Culture - Final Heavy growth normal respiratory [facility]: ITS Impressions Abdomen/Pelvis CT 01/14/18 00:00 CONCLUSION: 1. Abnormal urinary bladder with multiple small gas collections along the bladder wall with apparent mild thickening or adjacent fluid. There is small amount of intraluminal air. 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 In addition there are multiple small enhancing nodule lower areas along the posterior aspect of the bladder which could indicate tumor. 2. 2 new small right pulmonary nodules. This is of concern for metastatic disease. 3. Nonspecific bowel gas pattern most characteristic of an ileus. There is a small to moderate amount of fluid in the chest or pelvis. 4. Multiple bilateral renal calculi. There is mild prominence of the collecting systems and ureters which likely is secondary to bladder abnormality. 5. Cholelithiasis. 6. Chronic pancreatitis. The pancreatic duct now appears mildly dilated. These findings were called to Dr. Humphrey at 1755 hours. Chest X-Ray 01/14/18 06:00 CONCLUSION: Slight increase in bilateral right greater than left lower lung zone pulmonary opacity. Abdomen X-Ray 01/15/18 00:01 CONCLUSION: Nonspecific bowel gas pattern. No significant interval change. Objective Remarks: GENERAL: 62-year-old cachectic male in no apparent distress. Communicating in writing. SKIN: Warm and dry. No rash HEAD: Atraumatic. Normocephalic. EYES: Pupils equal and round. No scleral icterus. No injection or drainage. ENT: No nasal bleeding or discharge. Mucous membranes pink and moist. Tongue less edematous protruding from mouth unable to open mouth lips slightly less edematous. Inability to view oral aperture or oral pharynx NECK: Trachea midline. No JVD. Noted right sided neck mass. 8.0 Shiley tracheostomy in situ CARDIOVASCULAR: Normal rate, regular rhythm. S1,. S2. No S4. Without murmur. RESPIRATORY: Currently on ventilator via tracheostomy. No accessory muscle use. Clear to auscultation. Breath sounds equal bilaterally. GASTROINTESTINAL: Abdomen soft, non-tender, slightly distended with hypoactive bowel sounds appreciated. No high-pitched sounds.. No guarding. PEG tube insitu with some exudate greenish MUSCULOSKELETAL: Extremities without clubbing, cyanosis, or edema. No obvious deformities. NEUROLOGICAL: Arousable on the ventilator. Follows commands in all 4 extremities. Patient nodding head to yes and no questions, right son paper questions. Assessment and Plan - Assessment and Plan Plan: Neuro/Psych: Acute Pain associated with head/neck cancer History of EtOH abuse Acetaminophen 650 mg every 6 hours as needed for pain and/or temperature Alprazolam 0.5 mg every 8 hours as needed for agitation Temazepam 15 mg at night as needed insomnia Continue gabapentin 300 mg every 8 hours Continue tizanidine 4 mg every 12 hours On Roxanol 4 milligram every 6 scheduled currently -hold secondary to ileus noted discontinued methadone 01/12 Continue morphine sulfate 2 mg IV every 2 hours as needed for breakthrough pain Respiratory: Acute on chronic hypoxic respiratory failure COPD exacerbation Lung mass/2 new right lower lobe pulmonary nodules Head and neck cancer -squamous cell carcinoma Chronic airway compromise Class IV Mallampati rating 12/20 S/P Emergent tracheostomy to secure airway, 8.0 Shiley 12/21 trach collar trials on .40% initiated. Patient placed back on CPAP 12/24 secondary to hypoxemia and worsening chest x-ray PRVC 16/500///50 Continue budesonide/formoterol 160/4.5 2 puffs twice daily Albuterol/ipratropium aerosols every 4 hours with albuterol aerosols every 2 hours as indicated for dyspnea Ventilator bundle ABG/chest x-ray in a.m. 01/16 Cardiovascular: History of hypertension History of hyperlipidemia Severe sepsis Continue with normal saline at 84 cc an hour. Bolus with albumin 5% 500 cc 1 now.. 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 Monitor urine output with accurate I's and O's. Discussed with urology. Tavarez catheter is in place. Evaluation today. FEN/GI: PEG placement 12/19 Nausea and vomiting Possible infection PEG tube History of chronic pancreatitis Cholelithiasis Hyponatremia Hypoalbuminemia History of gastroesophageal reflux disease Glucerna 1.5 with previous 70 cc/hr. on hold Lansoprazole 30 mg daily for GI prophylaxis Bowel regimen with docusate sodium 100 mg twice daily Currently in free water 100 cc every 8 hours to maintain PEG tube patency KUB revealed small/large bowel gas exchange. NG tube currently to suction. CT abdomen/pelvis revealed moderate's small bowel dilatation. Cholelithiasis. Chronic pancreatitis. Bilateral nephrolithiasis with mildly dilated renal calyces and ureter. See above Methylnaltrexone 12 mg subcu 1 now. Heme/ID: Head and neck cancer -squamous cell carcinoma of the right tonsil Likely urosepsis Leukocytosis Normocytic anemia Hematology oncology following-patient was tentatively scheduled for chemotherapy to initiate 12/20 Received carbo/Taxol. 3 rounds. Currently on hold secondary to patient refusing radiation therapy. Patient was initiated on levofloxacin and vancomycin on 12/20. now s/p full course of abx. Will treat with aztreonam, vancomycin and metronidazole day #2. E. coli is resistant to levofloxacin 01/12 -wound -E. coli, C. albicans, group D enterococcus 01/12 -urine -gram-negative tacos Blood culture 01/12-NGTD Endocrine: Diabetes mellitus Glucose monitoring per ICU protocol beam dose every 6 hours aspart Currently on insulin detemir 6 units at night. Holding while n.p.o. -- SSI Prophylaxis: GI Prophylaxis Lansoprazole DVT Prophylaxis -- SCDs Enoxaparin Lines: Left radial A-line dc'd 12/22, right chest [id number] Level 3 follow-up
[2018-01-15] MEDS ORDERED: Potassium Chloride 25 MEQ Effervescent Tablet NG/OG ONE (09:20)
[2018-01-15] MEDS ORDERED: Digoxin 125 MCG Tablet PO SCH (09:20)
[2018-01-15] MEDS ORDERED: Albumin Human 5% Inj 500 ML IV.SIG ONE (09:25)
[2018-01-15] MEDS ORDERED: Mineral Oil 55% Emulsion 480 ML PO ONE (09:25)
[2018-01-15] MEDS ORDERED: Methylnaltrexone Inj 12 MG/0.6 ML Vial SQ ONE (09:26)
[2018-01-15] MEDS ORDERED: Magnesium Citrate Liq 300 ML Bottle PO ONE (09:26)
--- NOTE | 2018-01-15 10:10 | XR ---
EXAM DATE: 01/15/2018 10:02 AM EDT AGE/SEX: 62 years / Male INDICATIONS: Evaluate for ileus. Follow-up nonspecific bowel gas pattern seen on CT. Patient complai ns of abdominal pain. CLINICAL DATA: This is the patient's subsequent encounter. Patient reports that signs and symptoms h ave been present for 1 month and indicates a pain score of Nonresponsive. MEDICAL/SURGICAL HISTORY: . Cardiovascular disease. Hypertension. Gastroesophageal reflux disea se. Metastatic head and neck cancer., diabetes, atrial fibrillation . None. COMPARISON: [facility], CT ABDOMEN & PELVIS W CONTRAST, 01/14/2018. . FINDINGS: 2 AP supine views of the abdomen were obtained and demonstrate a gastrostomy tube projected over the stomach. The bowel gas pattern is unremarkable and there is residual oral contrast in the left side of the colon. Vascular calcifications are again noted in the splenic artery. CONCLUSION: Unremarkable bowel gas pattern with no evidence of obstruction. Electronically signed by: Bret Peterson MD 01/15/2018 10:08 AM EDT
--- NOTE | 2018-01-15 11:10 | P.PNPL ---
Subjective Interval history: 62 YO WM wit H&N CA,RF, Trach Put Back on vent Had hypotension, receeved Fluid bolus, normotensive now Tolerates TF Awake, follows commands on Levophed 2 mcg Physical Exam Vital signs: Vital Signs 01/14/18 12:00 01/14/18 12:25 01/14/18 14:00 Temperature 98.7 F Pulse Rate 93 H 93 H Respiratory Rate 18 18 Blood Pressure 94/56 L Pulse Oximetry 96 96 01/14/18 15:00 01/14/18 16:00 01/14/18 16:13 Temperature 98.7 F Pulse Rate 99 H 97 H 100 H Respiratory Rate 20 17 19 Blood Pressure 87/52 L Pulse Oximetry 96 100 01/14/18 18:00 01/14/18 20:00 01/14/18 20:11 Temperature Pulse Rate 107 H 96 H 96 H Respiratory Rate 18 Blood Pressure Pulse Oximetry 97 01/14/18 22:00 01/14/18 23:52 01/15/18 00:00 Temperature Pulse Rate 96 H 95 H 96 H Respiratory Rate 18 Blood Pressure Pulse Oximetry 92 L 01/15/18 00:45 01/15/18 01:00 01/15/18 01:15 Temperature Pulse Rate 97 H 95 H 96 H Respiratory Rate 19 21 17 Blood Pressure 100/58 L 90/55 L 91/50 L Pulse Oximetry 91 L 92 L 92 L 01/15/18 01:30 01/15/18 01:45 01/15/18 02:00 Temperature Pulse Rate 95 H 95 H 95 H Respiratory Rate 18 17 19 Blood Pressure 95/52 L 94/52 L 95/51 L Pulse Oximetry 92 L 92 L 92 L 01/15/18 02:15 01/15/18 02:30 01/15/18 02:45 Temperature Pulse Rate 95 H 96 H 97 H Respiratory Rate 20 18 17 Blood Pressure 99/57 L 96/54 L 100/53 L Pulse Oximetry 91 L 92 L 94 L 01/15/18 03:00 01/15/18 03:15 01/15/18 03:30 Temperature Pulse Rate 96 H 94 H 92 H Respiratory Rate 16 24 28 H Blood Pressure 96/55 L 90/55 L 87/48 L Pulse Oximetry 93 L 90 L 90 L 01/15/18 03:45 01/15/18 03:52 01/15/18 04:00 Temperature Pulse Rate 92 H 90 Respiratory Rate 27 H 18 16 Blood Pressure 85/50 L 78/46 L Pulse Oximetry 89 L 92 L 94 L 01/15/18 04:15 01/15/18 04:30 01/15/18 04:45 Temperature Pulse Rate 90 87 87 Respiratory Rate 17 19 18 Blood Pressure 81/51 L 82/52 L 79/51 L Pulse Oximetry 93 L 94 L 94 L 01/15/18 04:48 01/15/18 05:00 01/15/18 05:15 Temperature Pulse Rate 88 86 89 Respiratory Rate 20 18 28 H Blood Pressure 81/52 L 75/49 L 81/51 L Pulse Oximetry 94 L 94 L 94 L 01/15/18 05:30 01/15/18 05:45 01/15/18 06:00 Temperature Pulse Rate 82 84 84 Respiratory Rate 24 19 18 Blood Pressure 75/48 L 81/54 L 81/50 L Pulse Oximetry 94 L 94 L 94 L 01/15/18 07:00 01/15/18 07:01 01/15/18 07:55 Temperature Pulse Rate 82 83 Respiratory Rate 18 21 10 L Blood Pressure 76/50 L 78/51 L Pulse Oximetry 93 L 93 L 93 L 01/15/18 08:00 01/15/18 10:00 Temperature 97.6 F Pulse Rate 81 98 H Respiratory Rate 24 Blood Pressure 87/50 L Pulse Oximetry 92 L Intake & Output 01/14/18 01/15/18 01/15/18 18:59 06:59 18:59 Intake Total 1600 / 1600 1100 / 1100 Output Total 3400 / 3400 Balance -1800 / -1800 1100 / 1100 Intake: IV 1200 / 1200 1100 / 1100 NS Inj 1,000 ML @ 84 mls/hr IV. 1000 / 1000 1000 / 1000 CONT .[id number] [facility] Rx#:[id number] Azactam Inj 2 GM In NS Inj 100 200 / 200 100 / 100 ML @ 200 mls/hr IV.SIG Q8H [facility] Rx#:[id number] Oral 0 / 0 Tube Feeding 0 / 0 Water Bolus Amount 400 / 400 Output: Emesis 1700 / 1700 Urine Amount (Catheter) 1700 / 1700 Condom 700 / 700 Indwelling Urethral Catheter 1000 / 1000 Other: Date of Last Bowel Movement 07/20/18 07/20/18 # Bowel Movements 0 GENERAL: Elderly Male, Mild SOB SKIN: Warm and dry. HEAD: Normocephalic. EYES: No scleral icterus. No injection or drainage. NECK: Supple, trachea midline. No JVD or lymphadenopathy. Neck mass, has Trach CARDIOVASCULAR: Regular rate and rhythm without murmurs, gallops, or rubs. RESPIRATORY: Breath sounds equal bilaterally. No accessory muscle use. GASTROINTESTINAL: Abdomen soft, non-tender, nondistended. Peg tube MUSCULOSKELETAL: No cyanosis, or edema. BACK: Nontender without obvious deformity. No CVA tenderness. - Urinary Catheter Management Indwelling Urethral Catheter Cath placed during this visit: yes, but has since been removed by the nurse Reason for continuing: Acute urinary retention Insertion date: 01/14/18 Insertion time: 00:00 Removal date: 01/02/18 Removal time: 07:00 Condom Cath placed during this visit: yes Reason for continuing: Acute urinary retention Insertion date: 01/14/18 Insertion time: 18:30 Assessment and Plan - Plan Resp failure, on Vent S/P Emergent trach Neck Mass H&N Ca COPD Aspiration PLAN: Vent support Wean Fi02 cont Abx Aerosol nebs Tube feeding Scopolamine patch q 72 hrs Levophed to keep MAP>65
[2018-01-15] MEDS: Enoxaparin Inj 40 MG/0.4 ML Syringe SQ SCH (11:22)
--- NOTE | 2018-01-15 17:54 | MB ---
cc: Girish Barnettn Rocael DO DATE: 01/15/2018 HISTORY OF PRESENT ILLNESS: Mr. 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 Urology is consulted because there were findings on CAT scan of a distended bladder with air along the bladder wall, consistent with emphysematous cystitis. The patient states he has had no trouble voiding in the past, which is difficult to understand. It is unclear if he may be a poor historian and most of his history and physical will be taken from the chart. He also had received some chemotherapy in the past due to his head and neck carcinoma. He also has a placement of a PEG tube in the past and currently this is hooked up to suction drainage. ALLERGIES: HE HAS ALLERGIES TO PENICILLIN. PAST MEDICAL HISTORY: Include alcohol abuse, COPD, head and neck cancer, lung mass, pancreatitis and history of tobacco abuse. PAST SURGICAL HISTORY: Noted for prior back surgery and history of bowel resection. MEDICATIONS: Please refer to the chart. SOCIAL HISTORY: Noted for a chronic smoker and drinker. No drug abuse is noted. FAMILY HISTORY: Noncontributory. REVIEW OF SYSTEMS: Denies chest pain, shortness of breath. Does have some abdominal pain o exam. Currently bedridden. Denies any prostate cancer or family history of. The remaining review of systems were reviewed and were negative. PHYSICAL EXAMINATION: VITAL SIGNS: Temperature 98.2, heart rate 85, respiratory rate 20, 94/59 is his blood pressure, 100%. GENERAL: He is a thin 62-year-old male in no acute distress. HEENT: Normocephalic, atraumatic. Pupils equal, regular, round, reactive to light. Extraocular movements intact. NECK: Supple. Trachea is currently in position, on the vent. LUNGS: Breath sounds are bilaterally. HEART: Regular rate and rhythm. ABDOMEN: Soft. There is some tenderness noted on the left side with palpation. There is no rebound or guarding. His PEG tube is currently draining and hooked up to suction. GENITOURINARY: Tavarez catheter is in position. Testes are descended. EXTREMITIES: Show 1+ edema. NEUROLOGIC: Cranial nerves 2-12 are intact. LABORATORY DATA: White count 9.7, hemoglobin 8.1, hematocrit 24.4, platelet count 246. Sodium 138, potassium 3.5, chloride 98, CO2 33.8, BUN of 34, creatinine 0.27, glucose of 146. Urinalysis shows positive nitrite, large leukocyte esterase, many white cell clumps are noted. Urine culture shows E. coli from 01/12. IMAGING: CT scan again, bladder markedly distended, with air along the bladder wall, consistent with emphysematous cystitis. ASSESSMENT AND PLAN: This is a 62-year-old male with findings of emphysematous cystitis with Escherichia coli on urine culture. Continue with IV antibiotics and maintain Tavarez catheter drainage for approximately 3-4 weeks and this will allow the cystitis to improve. We will follow with you. Thank you for the consult. DO DELANO Stevenson/ALANNA , 03:32 PM , 05:53 PM
[2018-01-16] MEDS: metroNIDAZOLE 500 MG Tablet PO SCH ×5 (00:15→23:31)
[2018-01-16] MEDS: Artificial Tears Opth Drops 15 ML Bottle EACH EYE SCH ×3 (00:15→18:18)
[2018-01-16] MEDS: Insulin NovoLOG Aspart Correctional Sugar Inj SQ SCH ×4 (00:24→18:18)
[2018-01-16] MEDS: Sod Chloride 0.9% Inj 1,000 ML IV.CONT SCH ×4 (00:26→18:18)
[2018-01-16] MEDS: Morphine Inj 4 MG/ML Vial IV.PUSH PRN ×6 (02:08→23:30)
[2018-01-16] MEDS: Temazepam 15 MG Capsule NG/OG PRN (03:11)
[2018-01-16] MEDS: Aztreonam Inj 2 GM in Sodium Chloride 0.9% Inj 100 ML IV.SIG SCH ×3 (03:12→18:17)
[2018-01-16 05:25] LABS: Baso % (Auto) 0.3 % (0.0-2.0); Eos % (Auto) 0.3 % (0.0-4.0); Hematocrit 23.3 % (39.0-51.0); Hemoglobin 7.8 gm/dL (13.0-17.0); Lymph # (Auto) 1.3 th/mm3 (1.0-4.8); Lymph % (Auto) 14.9 % (9.0-44.0); Mean Corpuscular HGB Conc 33.5 % (32.0-36.0); Mean Corpuscular Hemoglobin 30.5 pg (27.0-34.0); Mean Corpuscular Volume 90.8 fL (80.0-100.0); Mean Platelet Volume 7.9 fL (7.0-11.0); Mono # (Auto) 1.1 th/mm3 (0.0-0.9); Mono % (Auto) 12.3 % (0.0-8.0); Neut # (Auto) 6.2 th/mm3 (1.8-7.7); Neut % (Auto) 72.2 % (16.0-70.0); Platelet Count 230 th/mm3 (150-450); Red Blood Count 2.57 mil/mm3 (4.50-5.90); Red Cell Distribution Width 15.3 % (11.6-17.2); White Blood Count 8.6 th/mm3 (4.0-11.0)
[2018-01-16] MEDS: Vancomycin Inj 1,000 MG in Sodium Chlor 0.9% Inj 250 ML IV.SIG SCH ×3 (05:30→21:12)
[2018-01-16] MEDS: Gabapentin Liq 250 MG/5 ML UDC PO SCH ×3 (05:31→21:13)
[2018-01-16 05:44] LABS: Alanine Aminotransferase 7 U/L (12-78); Albumin 2.2 g/dL (3.4-5.0); Alkaline Phosphatase 72 U/L (45-117); Anion Gap 8 meq/L (5-15); Aspartate Aminotransferase 6 U/L (15-37); Blood Urea Nitrogen 18 mg/dL (7-18); Carbon Dioxide 29.1 meq/L (21.0-32.0); Chloride 103 meq/L (98-107); Glomerular Filtration Rate Greater Than 89 mL/min (>89); Glucose,Random 118 mg/dL (74-106); Magnesium 1.9 mg/dL (1.5-2.5); Phosphorus 2.1 mg/dL (2.5-4.9); Potassium 3.5 meq/L (3.5-5.1); Sodium 140 meq/L (136-145); Total Protein 5.1 g/dL (6.4-8.2)
--- NOTE | 2018-01-16 06:42 | XR ---
EXAM DATE: 01/16/2018 5:33 AM EDT AGE/SEX: 62 years / Male INDICATIONS: Shortness of breath, possible pulmonary disease. CLINICAL DATA: This is the patient's subsequent encounter. Patient reports that signs and symptoms h ave been present for 1 month and indicates a pain score of Nonresponsive. MEDICAL/SURGICAL HISTORY: Cardiovascular disease. Hypertension. Gastroesophageal reflux disea se. Metastatic head and neck cancer., diabetes, atrial fibrillation None. COMPARISON: [facility] [place], CHEST 1V SINGLE AP, 01/14/2018. . FINDINGS: Emphysematous changes are seen in the apices. Improving atelectasis in the right base with worsening left basilar consolidation/effusion. Heart size is normal. Right IJ [id number] is stable in positi on as is the tracheostomy tube. Calcification of the subclavian/axillary arteries bilaterally CONCLUSION: 1. . Biapical emphysematous changes/scarring 2. Worsening left basilar consolidation/effusion. Electronically signed by: Gabe Correia MD 01/16/2018 6:41 AM EDT
--- NOTE | 2018-01-16 08:12 | P.PNURO ---
Subjective Patient symptoms today: Pt seen and examined. Burleson in place and draining. No complaints. u/o 3500 Objective Vital Signs: Vital Signs 01/15/18 10:00 01/15/18 11:00 01/15/18 12:00 Temperature 98.2 F Pulse Rate 98 H 91 H 96 H Respiratory Rate 10 L 20 Blood Pressure 94/59 L Pulse Oximetry 100 01/15/18 12:35 01/15/18 14:00 01/15/18 15:00 Temperature Pulse Rate 85 89 Respiratory Rate 8 L 10 L Blood Pressure Pulse Oximetry 01/15/18 15:44 01/15/18 16:00 01/15/18 16:30 Temperature 98.6 F Pulse Rate 94 H 93 H Respiratory Rate 10 L 16 11 L Blood Pressure 121/67 111/57 L Pulse Oximetry 95 96 99 01/15/18 16:45 01/15/18 17:00 01/15/18 17:16 Temperature Pulse Rate 90 93 H 95 H Respiratory Rate 9 L 13 20 Blood Pressure 115/57 L 117/61 120/68 Pulse Oximetry 99 99 01/15/18 17:30 01/15/18 17:45 01/15/18 18:00 Temperature Pulse Rate 93 H 93 H 95 H Respiratory Rate 38 H 48 H 30 H Blood Pressure 127/62 113/56 L 117/57 L Pulse Oximetry 97 97 01/15/18 18:15 01/15/18 18:30 01/15/18 18:45 Temperature Pulse Rate 96 H 95 H 94 H Respiratory Rate 27 H 22 25 H Blood Pressure 115/63 114/63 117/61 Pulse Oximetry 97 97 97 01/15/18 19:00 01/15/18 19:15 01/15/18 19:30 Temperature Pulse Rate 94 H 97 H 95 H Respiratory Rate 37 H 17 31 H Blood Pressure 110/57 L 115/67 125/64 Pulse Oximetry 98 01/15/18 19:45 01/15/18 20:00 01/15/18 20:15 Temperature Pulse Rate 95 H 95 H 95 H Respiratory Rate 23 21 18 Blood Pressure 124/67 119/62 127/71 Pulse Oximetry 99 01/15/18 20:30 01/15/18 20:36 01/15/18 20:45 Temperature Pulse Rate 95 H 96 H 95 H Respiratory Rate 19 12 12 Blood Pressure 125/67 126/72 Pulse Oximetry 94 L 01/15/18 21:00 01/15/18 21:16 01/15/18 21:30 Temperature Pulse Rate 97 H 99 H 97 H Respiratory Rate 19 30 H 13 Blood Pressure 128/68 122/75 131/68 Pulse Oximetry 01/15/18 21:45 01/15/18 22:00 01/15/18 22:15 Temperature Pulse Rate 94 H 96 H 96 H Respiratory Rate 17 13 14 Blood Pressure 119/62 129/71 131/68 Pulse Oximetry 01/15/18 22:30 01/15/18 22:45 01/15/18 23:00 Temperature Pulse Rate 93 H 95 H 92 H Respiratory Rate 14 18 22 Blood Pressure 117/68 126/69 129/69 Pulse Oximetry 98 01/15/18 23:15 01/15/18 23:30 01/15/18 23:45 Temperature Pulse Rate 94 H 96 H 92 H Respiratory Rate 14 15 25 H Blood Pressure 128/69 117/66 125/72 Pulse Oximetry 01/16/18 00:00 01/16/18 00:15 01/16/18 00:30 Temperature 99.0 F Pulse Rate 94 H 92 H 90 Respiratory Rate 16 15 13 Blood Pressure 129/67 127/70 116/65 Pulse Oximetry 78 L 01/16/18 00:45 01/16/18 00:52 01/16/18 01:00 Temperature Pulse Rate 90 90 89 Respiratory Rate 15 10 L 22 Blood Pressure 120/68 115/62 Pulse Oximetry 82 L 93 L 76 L 01/16/18 01:15 01/16/18 01:30 01/16/18 01:45 Temperature Pulse Rate 89 92 H 91 H Respiratory Rate 14 19 13 Blood Pressure 118/66 116/65 119/67 Pulse Oximetry 01/16/18 02:00 01/16/18 02:15 01/16/18 02:30 Temperature Pulse Rate 90 85 83 Respiratory Rate 15 12 12 Blood Pressure 119/67 102/55 L 105/59 L Pulse Oximetry 01/16/18 02:45 01/16/18 03:00 01/16/18 03:15 Temperature Pulse Rate 86 87 86 Respiratory Rate 16 28 H 20 Blood Pressure 121/66 122/72 113/61 Pulse Oximetry 96 01/16/18 03:30 01/16/18 03:45 01/16/18 03:52 Temperature Pulse Rate 86 84 84 Respiratory Rate 30 H 37 H 10 L Blood Pressure 108/59 L 101/56 L Pulse Oximetry 92 L 01/16/18 04:00 01/16/18 04:15 01/16/18 04:30 Temperature 98.8 F Pulse Rate 84 84 86 Respiratory Rate 18 22 22 Blood Pressure 102/56 L 103/55 L 100/59 L Pulse Oximetry 01/16/18 04:45 01/16/18 05:00 01/16/18 05:15 Temperature Pulse Rate 86 88 86 Respiratory Rate 37 H 25 H 24 Blood Pressure 96/55 L 105/62 102/59 L Pulse Oximetry 99 100 100 01/16/18 06:00 Temperature Pulse Rate 85 Respiratory Rate Blood Pressure Pulse Oximetry Intake & Output 01/15/18 01/16/18 01/16/18 18:59 06:59 18:59 Intake Total 1962 / 1962 2562 / 2562 Output Total 1450 / 1450 1000 / 1000 Balance 512 / 512 1562 / 1562 Weight 64.5 kg Intake: IV 1562 / 1562 2562 / 2562 Levophed Inj 16 MG In NS Inj 234 ML @ 2 MCG/MIN 1.87 mls/hr IV.CONT TITRATE PRN Rx#: [id number] NS Inj 1,000 ML @ 84 mls/hr IV. 1000 / 1000 1462 / 1462 CONT .[id number] [facility] Rx#:[id number] Alburx 5% Inj 500 ML @ 250 mls/ 100 / 100 hr IV.SIG ONCE ONE Rx#:[id number] Azactam Inj 2 GM In NS Inj 100 100 / 100 200 / 200 ML @ 200 mls/hr IV.SIG Q8H [facility] Rx#:[id number] KCl 40 mEq Premix Inj 40 meq In 100 / 100 100 ml @ 25 mls/hr IV.SIG ONCE ONE Rx#:[id number] Vancomycin Inj 1,000 MG In NS 250 / 250 500 / 500 Inj 250 ML @ 250 mls/hr IV.SIG Q8H [facility] Rx#:[id number] Oral 0 / 0 0 / 0 Tube Feeding 0 / 0 0 / 0 Water Bolus Amount 400 / 400 Output: Emesis 500 / 500 Urine Amount (Catheter) 950 / 950 1000 / 1000 Indwelling Urethral Catheter 950 / 950 1000 / 1000 Other: Date of Last Bowel Movement 01/15/18 01/16/18 # Bowel Movements 5 1 Result Diagrams: 01/16/18 04:55 01/16/18 04:55 Imaging: Impressions Abdomen X-Ray 01/15/18 00:00 CONCLUSION: Unremarkable bowel gas pattern with no evidence of obstruction. Chest X-Ray 01/16/18 06:00 CONCLUSION: 1. . Biapical emphysematous changes/scarring 2. Worsening left basilar consolidation/effusion. Medications and IVs: Active Medications Generic Name Dose Route Start Last Admin Trade Name Freq PRN Reason Stop Dose Admin Acetaminophen 650 mg 01/13/18 16:24 Tylenol Liq G-TUBE Q6H PRN FEVER Al Hydroxide/Mg Hydroxide 30 ml 12/25/17 00:01 Milk Of Magnesia Liq PO Q12H PRN Mild Constipation Albuterol 2.5 mg 12/26/17 16:04 01/14/18 12:25 Albuterol Neb (Prn) NEB 2.5 mg Q2HR NEB PRN Administration DYSPNEA Albuterol 1 ampul 01/13/18 20:00 01/16/18 03:53 Duoneb Neb (Alfred) NEB 1 ampul Q4HR NEB [facility] Administration Artificial Tears 1 drop 12/26/17 17:00 01/16/18 00:15 Tears Naturale Opth Drops EACH EYE 1 drop Q8H [facility] Administration Bisacodyl 10 mg 12/25/17 00:01 Dulcolax Supp RECTAL DAILY PRN severe constipation Budesonide/Formoterol Fumarate 2 puff 12/25/17 09:00 01/15/18 20:40 Symbicort 160/4.5 Mcg Inh INH 2 puff BID [facility] Administration Chlorhexidine Gluconate 15 ml 12/25/17 09:00 01/15/18 21:57 Peridex 0.12% Liq SWISH-SPIT 15 ml BID [facility] Administration Dextrose 50 ml 12/25/17 00:01 D50w Vial IV.PUSH UNSCH PRN PER HYPOGLYCEMIA PROTOCOL Docusate Sodium 100 mg 12/26/17 21:00 01/15/18 21:56 Colace Liq G-TUBE Not Given BID ALFRED Enoxaparin Sodium 40 mg 01/04/18 12:00 01/15/18 11:22 Lovenox Inj SQ 40 mg Q24H [facility] Administration Gabapentin 300 mg 12/29/17 08:15 01/16/18 05:31 Neurontin Liq PO 300 mg Q8HR [facility] Administration Glucagon 1 mg 12/25/17 00:01 Glucagon Inj OTHER PRN PRN for Hypoglycemia Protocol Guaifenesin 400 mg 01/13/18 22:00 01/16/18 05:31 Robitussin Liq G-TUBE 400 mg Q8HR [facility] Administration Heparin Sodium (Porcine) 500 unit 12/30/17 05:33 Heparin Central Flush IV.FLUSH PRN PRN Flush infusaport Heparin Sodium (Porcine) 250 unit 12/30/17 05:33 01/13/18 11:59 Heparin Central Flush IV.FLUSH 250 unit PRN PRN Administration Flush Infusapot Hyoscyamine 0.25 mg 01/03/18 18:00 01/16/18 05:31 Levsin PO 0.25 mg Q6HR [facility] Administration Magnesium Sulfate Inj 4 gm/ 100 mls @ 50 mls/hr 12/25/17 00:01 Sodium Chloride IV.SIG UNSCH PRN For Magnesium 0.9 - 1.1 mg/dL Magnesium Sulfate Inj 2 gm/ 100 mls @ 50 mls/hr 12/25/17 00:01 Sodium Chloride IV.SIG UNSCH PRN For Magnesium 1.2 - 1.6 mg/dL Potassium Chloride 40 meq in 100 mls @ 25 mls/hr 12/25/17 00:01 Kcl 40 Meq Premix Inj IV.SIG UNSCH PRN For Potassium 3.3 - 3.5 mEq/L Sodium Phosphate 30 mmol/ 260 mls @ 42 mls/hr 12/25/17 00:01 Sodium Chloride IV.SIG UNSCH PRN For Phosphorus < 2.5 mg/dL Potassium Phosphate 30 mmol/ 260 mls @ 42 mls/hr 12/25/17 00:01 Sodium Chloride IV.SIG UNSCH PRN SEE LABEL COMMENTS Aztreonam 2 gm/ Sodium 100 mls @ 200 mls/hr 01/13/18 18:00 01/16/18 04:00 Chloride IV.SIG Infused Q8H [facility] Infusion Pharmacy Profile Note 0 mls @ 0 mls/hr 01/13/18 17:00 Vancomycin Consult Pharmacy OTHER UNSCH [facility] As Directed Norepinephrine Bitartrate 16 250 mls @ 1.87 mls/hr 01/13/18 16:52 07/23/18 03 :00 mg/ Sodium Chloride IV.CONT 0 mcg/min TITRATE PRN 0 mls/hr See Protocol Titration Protocol 2 MCG/MIN Sodium Chloride 1,000 mls @ 84 mls/hr 01/13/18 18:00 01/16/18 06:00 Ns Inj IV.CONT 84 mls/hr .[id number] [facility] Infusion Dexmedetomidine HCl 800 mcg/ 50 mls @ 0.75 mls/hr 01/15/18 09:06 Sodium Chloride IV.CONT TITRATE PRN See Protocol Protocol 0.2 MCG/KG/HR Vancomycin HCl 1,000 mg/ 250 mls @ 250 mls/hr 01/15/18 13:00 01/16/18 06:56 Sodium Chloride IV.SIG Infused Q8H [facility] Infusion Insulin Aspart 0 unit 12/26/17 18:00 01/16/18 05:51 Novolog Insulin Suppl Scale Inj SQ Not Given Q6HR [facility] Protocol Lactulose 30 ml 12/25/17 00:01 Lactulose Liq PO DAILY PRN Severe Constipation Lactulose 30 ml 01/14/18 21:00 01/15/18 21:57 Lactulose Liq PO Not Given BID ALFRED Lansoprazole 30 mg 12/27/17 09:00 01/15/18 08:31 Prevacid Solutab NG/OG 30 mg DAILY [facility] Administration Lorazepam 0.5 mg 01/11/18 18:20 Ativan G-TUBE Q6H PRN ANXIETY Magnesium Oxide 800 mg 12/25/17 00:01 Mag-Ox PO UNSCH PRN For Magnesium 1.2 - 1.6 mg/dL Metoclopramide HCl 10 mg 12/25/17 00:01 01/13/18 13:47 Reglan Inj IV.PUSH 10 mg Q6H PRN Administration Nausea or Vomiting Metronidazole 500 mg 01/13/18 18:00 01/16/18 05:32 Flagyl PO 500 mg Q6HR [facility] Administration Miscellaneous Information 0 each 01/17/18 12:45 [facility] [place] [facility] Ordered Lab Info OTHER 01/17/18 12:46 ONCE ONE Morphine Sulfate 2 mg 12/28/17 08:36 01/16/18 05:30 Morphine Inj IV.PUSH 2 mg Q2H PRN Administration PAIN SCALE 5-10/SEVERE COUGH Morphine Sulfate 4 mg 01/11/18 20:00 01/14/18 08:00 Roxanol Liq G-TUBE 4 mg Q6H [facility] Administration Ondansetron HCl 4 mg 12/25/17 17:35 01/12/18 18:05 Zofran Odt PO 4 mg Q6H PRN Administration NAUSEA OR VOMITING Ondansetron HCl 4 mg 01/01/18 20:02 01/13/18 11:58 Zofran Inj IV.PUSH 4 mg Q6H PRN Administration NAUSEA Oxycodone HCl 10 mg 12/25/17 00:01 01/12/18 04:23 Roxicodone PO 10 mg Q4H PRN Administration Pain Scale 3 to 5 Patch Removal 1 each 01/04/18 20:00 01/13/18 20:20 Remove Old Patch T-DERMAL 1 each Q72H [facility] Administration Polyethylene Glycol 17 gm 01/14/18 21:00 01/15/18 21:57 Miralax G-TUBE Not Given BID [facility] Potassium Bicarb/Potassium Chloride 50 meq 12/25/17 00:01 K-Lyte PO UNSCH PRN For Potassium 3.3 - 3.5 mEq/L Potassium Phosphate 2,000 mg 12/25/17 00:01 K-Phos Original PO UNSCH PRN SEE LABEL COMMENTS Promethazine HCl 25 mg 01/01/18 20:03 Phenergan Inj IM ONCE PRN breakthrough nausea Scopolamine 1 patch 01/04/18 20:00 01/13/18 20:20 Transderm-Scop 1.5 Mg Patch.72hr T-DERMAL 1 patch Q72H [facility] Administration Sennosides 17.2 mg 12/25/17 00:01 Senokot PO Q12H PRN Moderate constipation Sennosides 8.8 mg 01/14/18 21:00 01/15/18 21:57 Senna Liq G-TUBE Not Given BID [facility] Sodium Chloride 5 ml 12/30/17 05:33 Ns Flush IV.FLUSH PRN PRN Flush Infusaport Sodium Chloride 2 ml 12/25/17 00:01 Ns Flush IV.FLUSH UNSCH PRN Flush after using IV access Sodium Chloride 2 ml 12/25/17 09:00 01/15/18 21:55 Ns Flush IV.FLUSH 2 ml BID [facility] Administration Sodium Chloride 2 ml 01/13/18 20:00 01/16/18 03:53 Sodium Chloride 3% Neb NEB 01/19/18 19:59 2 ml Q4HR NEB [facility] Administration Sterile Water 100 ml 01/14/18 14:00 01/16/18 05:32 Free Water G-TUBE 100 ml Q8HR [facility] Administration Temazepam 15 mg 12/25/17 18:35 01/16/18 03:11 Restoril NG/OG 15 mg HS PRN Administration INSOMNIA Terbutaline Sulfate 1 mg 01/13/18 16:52 Brethine Inj SQ UNSCH PRN For Extravasation Tizanidine HCl 4 mg 12/29/17 09:00 01/15/18 21:57 Zanaflex PO 4 mg Q12HR [facility] Administration Objective Remarks: Abd:soft,nt,nd Burleson: urine ramón in color Assessment and Plan - Plan 62 y.o male with emphysematous cystitis and Ucx with E. coli Continue Abx Maintain burleson catheter
[2018-01-16] MEDS: Polyethylene Glycol 3350 17 GM Packet G-TUBE SCH ×2 (10:17→21:11)
[2018-01-16] MEDS: Docusate Sodium Liq 100 MG/10 ML UDC G-TUBE SCH ×2 (10:17→21:10)
[2018-01-16] MEDS: Chlorhexidine Gluconate 0.12% Liq 15 ML UDC SWISH-SPIT SCH ×2 (10:17→21:12)
[2018-01-16] MEDS: Sennosides Liq 8.8 MG/5 ML UDC G-TUBE SCH ×2 (10:17→21:12)
[2018-01-16] MEDS: Budesonide-Formoterol 160/4.5 MCG 6 GM Inhaler INH SCH ×2 (10:17→23:31)
[2018-01-16] MEDS: Enoxaparin Inj 40 MG/0.4 ML Syringe SQ SCH (13:32)
--- NOTE | 2018-01-16 13:35 | P.PNONC ---
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 Over the weekend he was on low-dose norepinephrine for hypotension Objective Vital Signs/Intake & Output: Vital Signs 01/15/18 14:00 01/15/18 15:00 01/15/18 15:44 Temperature Pulse Rate 85 89 Respiratory Rate 10 L 10 L Blood Pressure Pulse Oximetry 95 01/15/18 16:00 01/15/18 16:30 01/15/18 16:45 Temperature 98.6 F Pulse Rate 94 H 93 H 90 Respiratory Rate 16 11 L 9 L Blood Pressure 121/67 111/57 L 115/57 L Pulse Oximetry 96 99 99 01/15/18 17:00 01/15/18 17:16 01/15/18 17:30 Temperature Pulse Rate 93 H 95 H 93 H Respiratory Rate 13 20 38 H Blood Pressure 117/61 120/68 127/62 Pulse Oximetry 99 01/15/18 17:45 01/15/18 18:00 01/15/18 18:15 Temperature Pulse Rate 93 H 95 H 96 H Respiratory Rate 48 H 30 H 27 H Blood Pressure 113/56 L 117/57 L 115/63 Pulse Oximetry 97 97 97 01/15/18 18:30 01/15/18 18:45 01/15/18 19:00 Temperature Pulse Rate 95 H 94 H 94 H Respiratory Rate 22 25 H 37 H Blood Pressure 114/63 117/61 110/57 L Pulse Oximetry 97 97 98 01/15/18 19:15 01/15/18 19:30 01/15/18 19:45 Temperature Pulse Rate 97 H 95 H 95 H Respiratory Rate 17 31 H 23 Blood Pressure 115/67 125/64 124/67 Pulse Oximetry 99 01/15/18 20:00 01/15/18 20:15 01/15/18 20:30 Temperature Pulse Rate 95 H 95 H 95 H Respiratory Rate 21 18 19 Blood Pressure 119/62 127/71 125/67 Pulse Oximetry 01/15/18 20:36 01/15/18 20:45 01/15/18 21:00 Temperature Pulse Rate 96 H 95 H 97 H Respiratory Rate 12 12 19 Blood Pressure 126/72 128/68 Pulse Oximetry 94 L 01/15/18 21:16 01/15/18 21:30 01/15/18 21:45 Temperature Pulse Rate 99 H 97 H 94 H Respiratory Rate 30 H 13 17 Blood Pressure 122/75 131/68 119/62 Pulse Oximetry 01/15/18 22:00 01/15/18 22:15 01/15/18 22:30 Temperature Pulse Rate 96 H 96 H 93 H Respiratory Rate 13 14 14 Blood Pressure 129/71 131/68 117/68 Pulse Oximetry 98 01/15/18 22:45 01/15/18 23:00 01/15/18 23:15 Temperature Pulse Rate 95 H 92 H 94 H Respiratory Rate 18 22 14 Blood Pressure 126/69 129/69 128/69 Pulse Oximetry 01/15/18 23:30 01/15/18 23:45 01/16/18 00:00 Temperature Pulse Rate 96 H 92 H 94 H Respiratory Rate 15 25 H 16 Blood Pressure 117/66 125/72 129/67 Pulse Oximetry 78 L 01/16/18 00:15 01/16/18 00:30 01/16/18 00:45 Temperature 99.0 F Pulse Rate 92 H 90 90 Respiratory Rate 15 13 15 Blood Pressure 127/70 116/65 120/68 Pulse Oximetry 82 L 01/16/18 00:52 01/16/18 01:00 01/16/18 01:15 Temperature Pulse Rate 90 89 89 Respiratory Rate 10 L 22 14 Blood Pressure 115/62 118/66 Pulse Oximetry 93 L 76 L 01/16/18 01:30 01/16/18 01:45 01/16/18 02:00 Temperature Pulse Rate 92 H 91 H 90 Respiratory Rate 19 13 15 Blood Pressure 116/65 119/67 119/67 Pulse Oximetry 01/16/18 02:15 01/16/18 02:30 01/16/18 02:45 Temperature Pulse Rate 85 83 86 Respiratory Rate 12 12 16 Blood Pressure 102/55 L 105/59 L 121/66 Pulse Oximetry 01/16/18 03:00 01/16/18 03:15 01/16/18 03:30 Temperature Pulse Rate 87 86 86 Respiratory Rate 28 H 20 30 H Blood Pressure 122/72 113/61 108/59 L Pulse Oximetry 96 01/16/18 03:45 01/16/18 03:52 07/23/18 04:00 Temperature 98.8 F Pulse Rate 84 84 84 Respiratory Rate 37 H 10 L 18 Blood Pressure 101/56 L 102/56 L Pulse Oximetry 92 L 01/16/18 04:15 01/16/18 04:30 01/16/18 04:45 Temperature Pulse Rate 84 86 86 Respiratory Rate 22 22 37 H Blood Pressure 103/55 L 100/59 L 96/55 L Pulse Oximetry 99 01/16/18 05:00 01/16/18 05:15 01/16/18 06:00 Temperature Pulse Rate 88 86 85 Respiratory Rate 25 H 24 Blood Pressure 105/62 102/59 L Pulse Oximetry 100 100 01/16/18 08:00 01/16/18 08:15 01/16/18 08:23 Temperature 98.3 F Pulse Rate 91 H 89 Respiratory Rate 25 H 13 13 Blood Pressure 121/67 114/61 Pulse Oximetry 100 01/16/18 08:26 01/16/18 10:00 01/16/18 10:27 Temperature Pulse Rate 92 H 87 Respiratory Rate 14 14 Blood Pressure Pulse Oximetry 01/16/18 11:20 01/16/18 11:22 01/16/18 12:00 Temperature 98.1 F Pulse Rate 87 91 H Respiratory Rate 10 L 18 15 Blood Pressure Pulse Oximetry 01/16/18 12:01 01/16/18 12:15 Temperature Pulse Rate 92 H 106 H Respiratory Rate 18 34 H Blood Pressure 121/74 130/65 Pulse Oximetry Intake & Output 01/15/18 01/16/18 01/16/18 18:59 06:59 18:59 Intake Total 1961 / 1961 2562 / 2562 1100 / 1100 Output Total 1450 / 1450 1000 / 1000 Balance 512 / 512 1562 / 1562 1100 / 1100 Weight 142 lb 3.17 oz Intake: IV 1562 / 1562 2562 / 2562 1100 / 1100 Levophed Inj 16 MG In NS Inj 234 ML @ 2 MCG/MIN 1.87 mls/hr IV.CONT TITRATE PRN Rx#: [id number] NS Inj 1,000 ML @ 84 mls/hr IV. 1000 / 1000 1462 / 1462 1000 / 1000 CONT .[id number] [facility] Rx#:[id number] Alburx 5% Inj 500 ML @ 250 mls/ 100 / 100 hr IV.SIG ONCE ONE Rx#:[id number] Azactam Inj 2 GM In NS Inj 100 100 / 100 200 / 200 100 / 100 ML @ 200 mls/hr IV.SIG Q8H [facility] Rx#:[id number] KCl 40 mEq Premix Inj 40 meq In 100 / 100 100 ml @ 25 mls/hr IV.SIG ONCE ONE Rx#:[id number] Vancomycin Inj 1,000 MG In NS 250 / 250 500 / 500 Inj 250 ML @ 250 mls/hr IV.SIG Q8H [facility] Rx#:[id number] Oral 0 / 0 0 / 0 Tube Feeding 0 / 0 0 / 0 Water Bolus Amount 400 / 400 Output: Emesis 500 / 500 Urine Amount (Catheter) 950 / 950 1000 / 1000 Indwelling Urethral Catheter 950 / 950 1000 / 1000 Other: Date of Last Bowel Movement 01/15/18 01/16/18 01/16/18 # Bowel Movements 5 1 Result Diagrams: 01/16/18 14:40 01/16/18 04:55 Laboratory Results: Laboratory Results - last 24 hr 01/15/18 01/16/18 01/16/18 17:18 04:55 04:55 WBC 8.6 RBC 2.57 L Hgb 7.8 L Hct 23.3 L MCV 90.8 MCH 30.5 MCHC 33.5 RDW 15.3 Plt Count 230 MPV 7.9 Neut % (Auto) 72.2 H Lymph % (Auto) 14.9 [place] % (Auto) 12.3 H Eos % (Auto) 0.3 Baso % (Auto) 0.3 Neut # (Auto) 6.2 Lymph # (Auto) 1.3 [place] # (Auto) 1.1 H Eos # (Auto) 0.0 Baso # (Auto) 0.0 WBC Differential . Differential Comment Auto diff final Sodium 140 Potassium 3.5 Chloride 103 Carbon Dioxide 29.1 Anion Gap 8 BUN 18 Creatinine Less than 0.15 L Estimated GFR Greater than 89 POC Glucose 125 H Random Glucose 118 H Lactic Acid Calcium 8.0 L Phosphorus 2.1 L D Magnesium 1.9 Total Bilirubin 0.4 AST 6 L ALT 7 L Alkaline Phosphatase 72 Total Protein 5.1 L Albumin 2.2 L 01/16/18 04:55 WBC RBC Hgb Hct MCV MCH MCHC RDW Plt Count MPV Neut % (Auto) Lymph % (Auto) [place] % (Auto) Eos % (Auto) Baso % (Auto) Neut # (Auto) Lymph # (Auto) [place] # (Auto) Eos # (Auto) Baso # (Auto) WBC Differential Differential Comment Sodium Potassium Chloride Carbon Dioxide Anion Gap BUN Creatinine Estimated GFR POC Glucose Random Glucose Lactic Acid 0.4 Calcium Phosphorus Magnesium Total Bilirubin AST ALT Alkaline Phosphatase Total Protein Albumin Culture Results: Microbiology 01/12/18 20:40 Aerobic Blood Culture - Preliminary Blood - Peripheral No growth in 4 days Anaerobic Blood Culture - Preliminary No growth in 4 days 01/12/18 20:45 Aerobic Blood Culture - Preliminary Blood - Peripheral No growth in 4 days Anaerobic Blood Culture - Preliminary No growth in 4 days 01/12/18 08:45 Gram Stain - Final Wound - Abdominal Wound Culture - Final Escherichia coli Lucy albicans Enterococcus faecium 01/13/18 18:14 Gram Stain - Final Sputum - Endotracheal Sputum Culture - Final Escherichia coli 01/12/18 08:45 Urine Culture - Final Clean Catch Urine Escherichia coli Imaging Studies: Impressions Chest X-Ray 01/16/18 06:00 CONCLUSION: 1. . Biapical emphysematous changes/scarring 2. Worsening left basilar consolidation/effusion. Medications: Active Medications Generic Name Dose Route Start Last Admin Trade Name Freq PRN Reason Stop Dose Admin Albuterol 2.5 mg 12/26/17 16:04 01/14/18 12:25 Albuterol Neb (Prn) NEB 2.5 mg Q2HR NEB PRN Administration DYSPNEA Albuterol 1 ampul 01/13/18 20:00 01/16/18 11:22 Duoneb Neb (Alfred) NEB 1 ampul Q4HR NEB ALFRED Administration Artificial Tears 1 drop 12/26/17 17:00 01/16/18 10:17 Tears Naturale Opth Drops EACH EYE 1 drop Q8H ALFRED Administration Budesonide/Formoterol Fumarate 2 puff 12/25/17 09:00 01/16/18 10:17 Symbicort 160/4.5 Mcg Inh INH Not Given BID [facility] Chlorhexidine Gluconate 15 ml 12/25/17 09:00 01/16/18 10:17 Peridex 0.12% Liq SWISH-SPIT Not Given BID [facility] Docusate Sodium 100 mg 12/26/17 21:00 01/16/18 10:17 Colace Liq G-TUBE Not Given BID ALFRED Enoxaparin Sodium 40 mg 01/04/18 12:00 01/15/18 11:22 Lovenox Inj SQ 40 mg Q24H ALFRED Administration Gabapentin 300 mg 12/29/17 08:15 01/16/18 05:31 Neurontin Liq PO 300 mg Q8HR ALFRED Administration Guaifenesin 400 mg 01/13/18 22:00 01/16/18 05:31 Robitussin Liq G-TUBE 400 mg Q8HR ALFRED Administration Heparin Sodium (Porcine) 250 unit 12/30/17 05:33 01/13/18 11:59 Heparin Central Flush IV.FLUSH 250 unit PRN PRN Administration Flush Infusapot Hyoscyamine 0.25 mg 01/03/18 18:00 01/16/18 13:12 Levsin PO 0.25 mg Q6HR ALFRED Administration Aztreonam 2 gm/ Sodium 100 mls @ 200 mls/hr 01/13/18 18:00 01/16/18 10:46 Chloride IV.SIG Infused Q8H ALFRED Infusion Norepinephrine Bitartrate 16 250 mls @ 1.87 mls/hr 01/13/18 16:52 01/16/18 03 :00 mg/ Sodium Chloride IV.CONT 0 mcg/min TITRATE PRN 0 mls/hr See Protocol Titration Protocol 2 MCG/MIN Sodium Chloride 1,000 mls @ 84 mls/hr 01/13/18 18:00 01/16/18 13:14 Ns Inj IV.CONT 84 mls/hr .[id number] ALFRED Administration Vancomycin HCl 1,000 mg/ 250 mls @ 250 mls/hr 01/15/18 13:00 01/16/18 06:56 Sodium Chloride IV.SIG Infused Q8H ALFRED Infusion Insulin Aspart 0 unit 12/26/17 18:00 01/16/18 13:12 Novolog Insulin Suppl Scale Inj SQ Not Given Q6HR [facility] Protocol Lactulose 30 ml 01/14/18 21:00 01/16/18 10:17 Lactulose Liq PO Not Given BID ALFRED Lansoprazole 30 mg 12/27/17 09:00 01/16/18 10:17 Prevacid Solutab NG/OG 30 mg DAILY ALFRED Administration Metoclopramide HCl 10 mg 12/25/17 00:01 01/13/18 13:47 Reglan Inj IV.PUSH 10 mg Q6H PRN Administration Nausea or Vomiting Metronidazole 500 mg 01/13/18 18:00 01/16/18 05:32 Flagyl PO 500 mg Q6HR ALFRED Administration Morphine Sulfate 2 mg 12/28/17 08:36 01/16/18 10:25 Morphine Inj IV.PUSH 2 mg Q2H PRN Administration PAIN SCALE 5-10/SEVERE COUGH Morphine Sulfate 4 mg 01/11/18 20:00 01/14/18 08:00 Roxanol Liq G-TUBE 4 mg Q6H ALFRED Administration Ondansetron HCl 4 mg 12/25/17 17:35 01/12/18 18:05 Zofran Odt PO 4 mg Q6H PRN Administration NAUSEA OR VOMITING Ondansetron HCl 4 mg 01/01/18 20:02 01/13/18 11:58 Zofran Inj IV.PUSH 4 mg Q6H PRN Administration NAUSEA Oxycodone HCl 10 mg 12/25/17 00:01 01/12/18 04:23 Roxicodone PO 10 mg Q4H PRN Administration Pain Scale 3 to 5 Patch Removal 1 each 01/04/18 20:00 01/13/18 20:20 Remove Old Patch T-DERMAL 1 each Q72H ALFRED Administration Polyethylene Glycol 17 gm 01/14/18 21:00 01/16/18 10:17 Miralax G-TUBE Not Given BID ALFRED Scopolamine 1 patch 01/04/18 20:00 01/13/18 20:20 Transderm-Scop 1.5 Mg Patch.72hr T-DERMAL 1 patch Q72H ALFRED Administration Sennosides 8.8 mg 01/14/18 21:00 01/16/18 10:17 Senna Liq G-TUBE Not Given BID ALFRED Sodium Chloride 2 ml 12/25/17 09:00 01/16/18 10:17 Ns Flush IV.FLUSH 2 ml BID ALFRED Administration Sodium Chloride 2 ml 01/13/18 20:00 01/16/18 11:22 Sodium Chloride 3% Neb NEB 01/19/18 19:59 2 ml Q4HR NEB ALFRED Administration Sterile Water 100 ml 01/14/18 14:00 01/16/18 13:15 Free Water G-TUBE Not Given Q8HR ALFRED Temazepam 15 mg 12/25/17 18:35 01/16/18 03:11 Restoril NG/OG 15 mg HS PRN Administration INSOMNIA Tizanidine HCl 4 mg 12/29/17 09:00 01/16/18 10:16 Zanaflex PO 4 mg Q12HR ALFRED Administration Objective Remarks: GENERAL: Chronically ill appearing middle aged male, lying in bed, in no acute distress. SKIN: Warm and dry. HEAD: Normocephalic. EYES: No scleral icterus. No injection or drainage. NECK: Supple, tracheostomy in place. +large right neck mass. This appears larger than previously seen. CARDIOVASCULAR:+ S1/S2. Regular rate and rhythm RESPIRATORY: Anterior breath sounds clear, equal bilaterally. No accessory muscle use. GASTROINTESTINAL: Abdomen tender to palpation all quadrants, hard, nondistended. PEG tube in place LUQ, currently connected to low intermittent wall suction draining bilious content. EXTREMITIES: No cyanosis or edema. NEUROLOGICAL: Alert and oriented. Communicates by writing on notepad. Shakes head yes and no appropriately. 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 A delay in his treatment coordinated by the [facility] resulted in his presentation to this hospital with a symptomatic large right neck and base of tongue/tonsil mass. C1 carbo/taxol 12/22 C2 12/29 C3 01/06 Plan: 1. S/P 3 palliative carbo/taxol, last one administered was on 01/06. The patient had expressed he was not interested in radiation and it was discussed with him that there was no point in continuing with chemotherapy alone. 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 Over the weekend he was on low-dose vasopressor with norepinephrine. This is currently titrated off. Blood pressure now much improved. 2. Anemia noted to be worsening. ?GI bleed with new ileus. Recheck hemoglobin and hematocrit at 3 PM today. 3. Patient remains with poor prognosis. He is now agreeing to treatment however given his current clinical status with ileus and emphysematous cystitis , radiation and chemotherapy will remain on hold at this time. We can discuss future treatment if clinical status improves. - Attending Statement Events over the weekend noted. Case was discussed with VARUN Conde. Patient is too unstable to consider treatment with chemotherapy. We will follow for an opportunity to proceed with treatment, in conjunction with radiation oncology.
[2018-01-16 15:10] LABS: Hematocrit 25.1 % (39.0-51.0); Hemoglobin 8.3 gm/dL (13.0-17.0)
--- NOTE | 2018-01-16 15:43 | P.PNPAL ---
Reason for Visit Reason for visit: a. To assist with evaluation and management of symptoms including: pain, dyspnea, anxiety, nausea b. To assist medical decision maker(s) with: better understanding of current medical conditions; weighing benefits/burdens of medical treatment options; making medical treatment decisions. Subjective Subjective/Interval History: Pt sleeping, appears comfortable. Rouses to verbal stimuli. He is able to communicate with gestures, writing. He indicates that he is having pain in his right neck and face, and that his tracheostomy is uncomfortable. He rates his neck pain 10/10 and writes that the IV morphine is helpful but does not last long. Ileus seen on CT. He says he has some tenderness in his abdomen as well and is tender on exam. He is mildly distended. 500cc output from gastric tube today. 01/16 CXR shows worsening left base consolidation/effusion. 01/13 he had episode vomiting and aspiration, was placed on mech ventilation; sputum cx growing e coli. Denies feeling SOB. Pt now wants to pursue chemo and radiation but this is being held by oncology until his medical status improves. I did discuss this with pt and he indicates he understands, has no additional questions or complaints. Advance Directives Health Care Surrogate Name and Number: primary [facility] Jai Dolan; secondary Dianna [place] Objective Vital Signs: Vital Signs 01/15/18 15:44 01/15/18 16:00 01/15/18 16:30 Temperature 98.6 F Pulse Rate 94 H 93 H Respiratory Rate 10 L 16 11 L Blood Pressure 121/67 111/57 L Pulse Oximetry 95 96 99 01/15/18 16:45 01/15/18 17:00 01/15/18 17:16 Temperature Pulse Rate 90 93 H 95 H Respiratory Rate 9 L 13 20 Blood Pressure 115/57 L 117/61 120/68 Pulse Oximetry 99 99 01/15/18 17:30 01/15/18 17:45 01/15/18 18:00 Temperature Pulse Rate 93 H 93 H 95 H Respiratory Rate 38 H 48 H 30 H Blood Pressure 127/62 113/56 L 117/57 L Pulse Oximetry 97 97 01/15/18 18:15 01/15/18 18:30 01/15/18 18:45 Temperature Pulse Rate 96 H 95 H 94 H Respiratory Rate 27 H 22 25 H Blood Pressure 115/63 114/63 117/61 Pulse Oximetry 97 97 97 01/15/18 19:00 01/15/18 19:15 01/15/18 19:30 Temperature Pulse Rate 94 H 97 H 95 H Respiratory Rate 37 H 17 31 H Blood Pressure 110/57 L 115/67 125/64 Pulse Oximetry 98 01/15/18 19:45 01/15/18 20:00 01/15/18 20:15 Temperature Pulse Rate 95 H 95 H 95 H Respiratory Rate 23 21 18 Blood Pressure 124/67 119/62 127/71 Pulse Oximetry 99 01/15/18 20:30 01/15/18 20:36 01/15/18 20:45 Temperature Pulse Rate 95 H 96 H 95 H Respiratory Rate 19 12 12 Blood Pressure 125/67 126/72 Pulse Oximetry 94 L 01/15/18 21:00 01/15/18 21:16 01/15/18 21:30 Temperature Pulse Rate 97 H 99 H 97 H Respiratory Rate 19 30 H 13 Blood Pressure 128/68 122/75 131/68 Pulse Oximetry 01/15/18 21:45 01/15/18 22:00 01/15/18 22:15 Temperature Pulse Rate 94 H 96 H 96 H Respiratory Rate 17 13 14 Blood Pressure 119/62 129/71 131/68 Pulse Oximetry 01/15/18 22:30 01/15/18 22:45 01/15/18 23:00 Temperature Pulse Rate 93 H 95 H 92 H Respiratory Rate 14 18 22 Blood Pressure 117/68 126/69 129/69 Pulse Oximetry 98 01/15/18 23:15 01/15/18 23:30 01/15/18 23:45 Temperature Pulse Rate 94 H 96 H 92 H Respiratory Rate 14 15 25 H Blood Pressure 128/69 117/66 125/72 Pulse Oximetry 01/16/18 00:00 01/16/18 00:15 01/16/18 00:30 Temperature 99.0 F Pulse Rate 94 H 92 H 90 Respiratory Rate 16 15 13 Blood Pressure 129/67 127/70 116/65 Pulse Oximetry 78 L 01/16/18 00:45 01/16/18 00:52 01/16/18 01:00 Temperature Pulse Rate 90 90 89 Respiratory Rate 15 10 L 22 Blood Pressure 120/68 115/62 Pulse Oximetry 82 L 93 L 76 L 01/16/18 01:15 01/16/18 01:30 07/23/18 01:45 Temperature Pulse Rate 89 92 H 91 H Respiratory Rate 14 19 13 Blood Pressure 118/66 116/65 119/67 Pulse Oximetry 01/16/18 02:00 01/16/18 02:15 01/16/18 02:30 Temperature Pulse Rate 90 85 83 Respiratory Rate 15 12 12 Blood Pressure 119/67 102/55 L 105/59 L Pulse Oximetry 01/16/18 02:45 01/16/18 03:00 01/16/18 03:15 Temperature Pulse Rate 86 87 86 Respiratory Rate 16 28 H 20 Blood Pressure 121/66 122/72 113/61 Pulse Oximetry 96 01/16/18 03:30 01/16/18 03:45 01/16/18 03:52 Temperature Pulse Rate 86 84 84 Respiratory Rate 30 H 37 H 10 L Blood Pressure 108/59 L 101/56 L Pulse Oximetry 92 L 01/16/18 04:00 01/16/18 04:15 01/16/18 04:30 Temperature 98.8 F Pulse Rate 84 84 86 Respiratory Rate 18 22 22 Blood Pressure 102/56 L 103/55 L 100/59 L Pulse Oximetry 01/16/18 04:45 01/16/18 05:00 01/16/18 05:15 Temperature Pulse Rate 86 88 86 Respiratory Rate 37 H 25 H 24 Blood Pressure 96/55 L 105/62 102/59 L Pulse Oximetry 99 100 100 01/16/18 06:00 01/16/18 08:00 01/16/18 08:15 Temperature 98.3 F Pulse Rate 85 91 H 89 Respiratory Rate 25 H 13 Blood Pressure 121/67 114/61 Pulse Oximetry 01/16/18 08:23 01/16/18 08:26 01/16/18 10:00 Temperature Pulse Rate 92 H 87 Respiratory Rate 13 14 Blood Pressure Pulse Oximetry 100 01/16/18 10:27 01/16/18 11:20 01/16/18 11:22 Temperature Pulse Rate 87 Respiratory Rate 14 10 L 18 Blood Pressure Pulse Oximetry 01/16/18 12:00 01/16/18 12:01 01/16/18 12:15 Temperature 98.1 F Pulse Rate 91 H 92 H 106 H Respiratory Rate 15 18 34 H Blood Pressure 121/74 130/65 Pulse Oximetry Intake & Output 07/01/16/18 01/16/18 18:59 06:59 18:59 Intake Total 1961 / 2 2562 / 2562 1100 / 1100 Output Total 1450 / 1450 1000 / 1000 Balance 512 / 512 1562 / 1562 1100 / 1100 Weight 64.5 kg Intake: IV 1562 / 1562 2562 / 2562 1100 / 1100 Levophed Inj 16 MG In NS Inj 12 / 12 234 ML @ 2 MCG/MIN 1.87 mls/hr IV.CONT TITRATE PRN Rx#: [id number] NS Inj 1,000 ML @ 84 mls/hr IV. 1000 / 1000 1462 / 1462 1000 / 1000 CONT .[id number] [facility] Rx#:[id number] Alburx 5% Inj 500 ML @ 250 mls/ 100 / 100 hr IV.SIG ONCE ONE Rx#:[id number] Azactam Inj 2 GM In NS Inj 100 100 / 100 200 / 200 100 / 100 ML @ 200 mls/hr IV.SIG Q8H [facility] Rx#:[id number] KCl 40 mEq Premix Inj 40 meq In 100 / 100 100 ml @ 25 mls/hr IV.SIG ONCE ONE Rx#:[id number] Vancomycin Inj 1,000 MG In NS 250 / 250 500 / 500 Inj 250 ML @ 250 mls/hr IV.SIG Q8H [facility] Rx#:[id number] Oral 0 / 0 0 / 0 Tube Feeding 0 / 0 0 / 0 Water Bolus Amount 400 / 400 Output: Emesis 500 / 500 Urine Amount (Catheter) 950 / 950 1000 / 1000 Indwelling Urethral Catheter 950 / 950 1000 / 1000 Other: Date of Last Bowel Movement 01/15/18 01/16/18 01/16/18 # Bowel Movements 5 1 Physical Exam: CONSTITUTIONAL/GENERAL: mildly cachectic, asleep TUBES/LINES/DRAINS: port, trach to vent SKIN: sallow complexion No wounds seen anteriorly other than face. Not diaphoretic. HEAD: Atraumatic. Disfigured right face and neck EYES: PERRL. Extraocular motions intact. No scleral icterus. No injection or drainage. Fundi not examined. ENT: Hearing grossly normal. Nose without bleeding or purulent drainage. large mass right cheek extending down to neck. NECK: mass right side. RESPIRATORY/CHEST: respirations unlabored, lungs sounds coarse GASTROINTESTINAL: Abdomen soft, tender, +distended, BS active. + PEG tube with small circumferential area erythema, crust/to suction MUSCULOSKELETAL: LLE cool with mottling. no edema NEUROLOGICAL:alert, calm, cooperative. Nods /gestures/writes in communication/ understanding. Moves all 4 extremities. PSYCHIATRIC: calm, no anxiety evident Diagnostic Tests Laboratory: Laboratory Results - last 72 hr 01/13/18 01/13/18 01/13/18 16:49 16:49 16:49 WBC 26.6 H RBC 2.95 L Hgb 9.2 L Hct 26.3 L MCV 89.3 MCH 31.1 MCHC 34.8 RDW 15.4 Plt Count 313 MPV 8.9 Prelim Diff (Auto) Slide review pending Neut % (Auto) Lymph % (Auto) [place] % (Auto) Eos % (Auto) Baso % (Auto) Neut # (Auto) Lymph # (Auto) [place] # (Auto) Eos # (Auto) Baso # (Auto) WBC Differential Manual diff final Seg Neuts % (Manual) 66 Band Neuts % (Manual) 20 H Lymphocytes % (Manual) 4 L Monocytes % (Manual) 9 H Metamyelocytes % (Man) 1 Abs Neuts (Manual) 23.1 H Differential Comment . Platelet Estimate Normal Platelet Morphology Normal Puncture Site Patient Temperature O2 Saturation ABG pH ABG pCO2 ABG pO2 ABG HCO3 ABG O2 Content ABG Base Excess ABG Methemoglobin Hemoglobin Carboxyhemoglobin O2 Delivery Device Vent Setting Inspired O2 Critical Value Sodium 132 L Potassium 4.8 Chloride 94 L Carbon Dioxide 30.5 Anion Gap 8 BUN 49 H Creatinine 0.72 Estimated GFR Greater than 89 POC Glucose Random Glucose 167 H Lactic Acid 1.4 Calcium 8.3 L Phosphorus 4.7 Magnesium 2.1 Total Bilirubin AST ALT Alkaline Phosphatase Total Creatine Kinase Troponin I Total Protein Albumin Vancomycin Trough 01/13/18 01/13/18 01/14/18 16:49 17:18 01:04 WBC RBC Hgb Hct MCV MCH MCHC RDW Plt Count MPV Prelim Diff (Auto) Neut % (Auto) Lymph % (Auto) [place] % (Auto) Eos % (Auto) Baso % (Auto) Neut # (Auto) Lymph # (Auto) [place] # (Auto) Eos # (Auto) Baso # (Auto) WBC Differential Seg Neuts % (Manual) Band Neuts % (Manual) Lymphocytes % (Manual) Monocytes % (Manual) Metamyelocytes % (Man) Abs Neuts (Manual) Differential Comment Platelet Estimate Platelet Morphology Puncture Site Right radial Patient Temperature 98.6 O2 Saturation 85 L* ABG pH 7.43 H ABG pCO2 44 H ABG pO2 57 L* ABG HCO3 29 H ABG O2 Content 12.9 ABG Base Excess 4.7 H ABG Methemoglobin 1.5 Hemoglobin 10.8 L Carboxyhemoglobin 1.9 O2 Delivery Device Ventilator Vent Setting Prvc/ac Inspired O2 50 Critical Value Yes Sodium Potassium Chloride Carbon Dioxide Anion Gap BUN Creatinine Estimated GFR POC Glucose 198 H Random Glucose Lactic Acid Calcium Phosphorus Magnesium Total Bilirubin AST ALT Alkaline Phosphatase Total Creatine Kinase 18 L Troponin I Less than 0.02 L Total Protein Albumin Vancomycin Trough 01/14/18 01/14/18 01/14/18 04:49 04:49 04:49 WBC 15.6 H RBC 3.14 L Hgb 9.5 L Hct 28.3 L MCV 90.1 MCH 30.3 MCHC 33.6 RDW 15.5 Plt Count 311 MPV 8.6 Prelim Diff (Auto) Slide review pending Neut % (Auto) 79.2 H Lymph % (Auto) 6.6 L [place] % (Auto) 14.0 H Eos % (Auto) 0.0 Baso % (Auto) 0.2 Neut # (Auto) 12.4 H Lymph # (Auto) 1.0 [place] # (Auto) 2.2 H Eos # (Auto) 0.0 Baso # (Auto) 0.0 WBC Differential Manual diff final Seg Neuts % (Manual) 54 Band Neuts % (Manual) 30 H Lymphocytes % (Manual) 4 L Monocytes % (Manual) 12 H Metamyelocytes % (Man) Abs Neuts (Manual) 13.1 H Differential Comment . Platelet Estimate Normal Platelet Morphology Normal Puncture Site Patient Temperature O2 Saturation ABG pH ABG pCO2 ABG pO2 ABG HCO3 ABG O2 Content ABG Base Excess ABG Methemoglobin Hemoglobin Carboxyhemoglobin O2 Delivery Device Vent Setting Inspired O2 Critical Value Sodium 134 L Potassium 4.5 Chloride 93 L Carbon Dioxide 33.5 H Anion Gap 8 BUN 58 H Creatinine 0.75 Estimated GFR Greater than 89 POC Glucose Random Glucose 186 H Lactic Acid 1.6 Calcium 8.6 Phosphorus 4.9 Magnesium 2.2 Total Bilirubin 0.5 AST 10 L ALT 9 L Alkaline Phosphatase 97 Total Creatine Kinase Troponin I Total Protein 5.8 L D Albumin 2.1 L Vancomycin Trough 01/14/18 01/14/18 01/15/18 10:58 17:52 03:20 WBC RBC Hgb Hct MCV MCH MCHC RDW Plt Count MPV Prelim Diff (Auto) Neut % (Auto) Lymph % (Auto) [place] % (Auto) Eos % (Auto) Baso % (Auto) Neut # (Auto) Lymph # (Auto) [place] # (Auto) Eos # (Auto) Baso # (Auto) WBC Differential Seg Neuts % (Manual) Band Neuts % (Manual) Lymphocytes % (Manual) Monocytes % (Manual) Metamyelocytes % (Man) Abs Neuts (Manual) Differential Comment Platelet Estimate Platelet Morphology Puncture Site Patient Temperature O2 Saturation ABG pH ABG pCO2 ABG pO2 ABG HCO3 ABG O2 Content ABG Base Excess ABG Methemoglobin Hemoglobin Carboxyhemoglobin O2 Delivery Device Vent Setting Inspired O2 Critical Value Sodium 138 Potassium 3.5 D Chloride 98 Carbon Dioxide 33.8 H Anion Gap 6 BUN 34 H Creatinine 0.27 L Estimated GFR Greater than 89 POC Glucose 217 H 146 H Random Glucose 132 H Lactic Acid Calcium 7.9 L Phosphorus 3.2 D Magnesium 2.1 Total Bilirubin 0.4 AST 8 L ALT 7 L Alkaline Phosphatase 82 Total Creatine Kinase Troponin I Total Protein 5.3 L Albumin 2.2 L Vancomycin Trough 5.9 01/15/18 01/15/18 01/15/18 03:20 03:20 11:13 WBC 9.7 RBC 2.71 L Hgb 8.1 L Hct 24.4 L MCV 89.8 MCH 29.7 MCHC 33.1 RDW 14.9 Plt Count 246 MPV 8.5 Prelim Diff (Auto) Neut % (Auto) 72.0 H Lymph % (Auto) 12.7 [place] % (Auto) 15.0 H Eos % (Auto) 0.1 Baso % (Auto) 0.2 Neut # (Auto) 7.0 Lymph # (Auto) 1.2 [place] # (Auto) 1.5 H Eos # (Auto) 0.0 Baso # (Auto) 0.0 WBC Differential . Seg Neuts % (Manual) Band Neuts % (Manual) Lymphocytes % (Manual) Monocytes % (Manual) Metamyelocytes % (Man) Abs Neuts (Manual) Differential Comment Auto diff final Platelet Estimate Platelet Morphology Puncture Site Patient Temperature O2 Saturation ABG pH ABG pCO2 ABG pO2 ABG HCO3 ABG O2 Content ABG Base Excess ABG Methemoglobin Hemoglobin Carboxyhemoglobin O2 Delivery Device Vent Setting Inspired O2 Critical Value Sodium Potassium Chloride Carbon Dioxide Anion Gap BUN Creatinine Estimated GFR POC Glucose 172 H Random Glucose Lactic Acid 0.6 Calcium Phosphorus Magnesium Total Bilirubin AST ALT Alkaline Phosphatase Total Creatine Kinase Troponin I Total Protein Albumin Vancomycin Trough 01/15/18 01/16/18 01/16/18 17:18 04:55 04:55 WBC 8.6 RBC 2.57 L Hgb 7.8 L Hct 23.3 L MCV 90.8 MCH 30.5 MCHC 33.5 RDW 15.3 Plt Count 230 MPV 7.9 Prelim Diff (Auto) Neut % (Auto) 72.2 H Lymph % (Auto) 14.9 [place] % (Auto) 12.3 H Eos % (Auto) 0.3 Baso % (Auto) 0.3 Neut # (Auto) 6.2 Lymph # (Auto) 1.3 [place] # (Auto) 1.1 H Eos # (Auto) 0.0 Baso # (Auto) 0.0 WBC Differential . Seg Neuts % (Manual) Band Neuts % (Manual) Lymphocytes % (Manual) Monocytes % (Manual) Metamyelocytes % (Man) Abs Neuts (Manual) Differential Comment Auto diff final Platelet Estimate Platelet Morphology Puncture Site Patient Temperature O2 Saturation ABG pH ABG pCO2 ABG pO2 ABG HCO3 ABG O2 Content ABG Base Excess ABG Methemoglobin Hemoglobin Carboxyhemoglobin O2 Delivery Device Vent Setting Inspired O2 Critical Value Sodium 140 Potassium 3.5 Chloride 103 Carbon Dioxide 29.1 Anion Gap 8 BUN 18 Creatinine Less than 0.15 L Estimated GFR Greater than 89 POC Glucose 125 H Random Glucose 118 H Lactic Acid Calcium 8.0 L Phosphorus 2.1 L D Magnesium 1.9 Total Bilirubin 0.4 AST 6 L ALT 7 L Alkaline Phosphatase 72 Total Creatine Kinase Troponin I Total Protein 5.1 L Albumin 2.2 L Vancomycin Trough 01/16/18 01/16/18 04:55 14:40 WBC RBC Hgb 8.3 L Hct 25.1 L MCV MCH MCHC RDW Plt Count MPV Prelim Diff (Auto) Neut % (Auto) Lymph % (Auto) [place] % (Auto) Eos % (Auto) Baso % (Auto) Neut # (Auto) Lymph # (Auto) [place] # (Auto) Eos # (Auto) Baso # (Auto) WBC Differential Seg Neuts % (Manual) Band Neuts % (Manual) Lymphocytes % (Manual) Monocytes % (Manual) Metamyelocytes % (Man) Abs Neuts (Manual) Differential Comment Platelet Estimate Platelet Morphology Puncture Site Patient Temperature O2 Saturation ABG pH ABG pCO2 ABG pO2 ABG HCO3 ABG O2 Content ABG Base Excess ABG Methemoglobin Hemoglobin Carboxyhemoglobin O2 Delivery Device Vent Setting Inspired O2 Critical Value Sodium Potassium Chloride Carbon Dioxide Anion Gap BUN Creatinine Estimated GFR POC Glucose Random Glucose Lactic Acid 0.4 Calcium Phosphorus Magnesium Total Bilirubin AST ALT Alkaline Phosphatase Total Creatine Kinase Troponin I Total Protein Albumin Vancomycin Trough Result Diagrams: 01/16/18 14:40 01/16/18 04:55 Microbiology: Microbiology 01/12/18 20:40 Aerobic Blood Culture - Preliminary Blood - Peripheral No growth in 4 days Anaerobic Blood Culture - Preliminary No growth in 4 days 01/12/18 20:45 Aerobic Blood Culture - Preliminary Blood - Peripheral No growth in 4 days Anaerobic Blood Culture - Preliminary No growth in 4 days 01/12/18 08:45 Gram Stain - Final Wound - Abdominal Wound Culture - Final Escherichia coli Lucy albicans Enterococcus faecium 01/13/18 18:14 Gram Stain - Final Sputum - Endotracheal Sputum Culture - Final Escherichia coli 01/12/18 08:45 Urine Culture - Final Clean Catch Urine Escherichia coli Imaging: ITS Impressions Abdomen/Pelvis CT 01/14/18 00:00 CONCLUSION: 1. Abnormal urinary bladder with multiple small gas collections along the bladder wall with apparent mild thickening or adjacent fluid. There is small amount of intraluminal air. 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 In addition there are multiple small enhancing nodule lower areas along the posterior aspect of the bladder which could indicate tumor. 2. 2 new small right pulmonary nodules. This is of concern for metastatic disease. 3. Nonspecific bowel gas pattern most characteristic of an ileus. There is a small to moderate amount of fluid in the chest or pelvis. 4. Multiple bilateral renal calculi. There is mild prominence of the collecting systems and ureters which likely is secondary to bladder abnormality. 5. Cholelithiasis. 6. Chronic pancreatitis. The pancreatic duct now appears mildly dilated. These findings were called to Dr. Humphrey at 1755 hours. Abdomen X-Ray 01/15/18 00:01 CONCLUSION: Nonspecific bowel gas pattern. No significant interval change. Chest X-Ray 01/16/18 06:00 CONCLUSION: 1. . Biapical emphysematous changes/scarring 2. Worsening left basilar consolidation/effusion. Procedures: 12/19 g tube placement by IR 12/20 emergency tracheostomy 12/22 chemotherapy initiated 12/29 2nd dose chemo Other: Microbiology 01/12/18 20:40 Aerobic Blood Culture - Preliminary Blood - Peripheral No growth in 4 days Anaerobic Blood Culture - Preliminary No growth in 4 days 01/12/18 20:45 Aerobic Blood Culture - Preliminary Blood - Peripheral No growth in 4 days Anaerobic Blood Culture - Preliminary No growth in 4 days 01/12/18 08:45 Gram Stain - Final Wound - Abdominal Wound Culture - Final Escherichia coli Lucy albicans Enterococcus faecium 01/13/18 18:14 Gram Stain - Final Sputum - Endotracheal Sputum Culture - Final Escherichia coli 01/12/18 08:45 Urine Culture - Final Clean Catch Urine Escherichia coli Assessment and Plan - Disease Oriented Problem List (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 Per EMR has daughter Dianna and "friend" Jai. He is an [employer] . Spiritual: declined naval architect support Legal: Pt capacitated to make decisions. IN the event he is incapacitated, He designated Jai and Dianna Dolan as HCS. Have communicated with Jai, he accepts his role. Ethical issues impacting care: none at this time Important Contacts: daughter Dianna Dolan [phone] "friend" Jai Dolan home [phone], cell [phone] Prognosis: This is a 62 yo male with COPD, DM, hx etoh & tobacco use, > 40 pack years diagnosed with head and neck cancer. He also has a lung mass which has yet to be biopsied. He has lost 30 lbs in the last 6 months and now requires tube feedings. Has tracheostomy for breathing b/c mass has encroached on his airway. He received 3 x tx palliative chemotherapy, refused radiation and subsequently developed emphysematous cystitis, ileus. The chemo treatmens transiently shrunk tumor. Oncology now holding chemo and radiation and will not resume until pt's medical status improved. Given his underlying COPD and lung mass, recent setbacks, his prognosis is guarded at best. He is at significant risk for additional complications, setbacks, and further decline. Code Status: Full Code Plan: - LEGAL DECISON MAKER - pt with trach and communication is difficult but he is alert, oriented, and appropriate, capacitated to make decisions. Should he become incapacitated, he designated Jai Dolan as primary and Dianna Dolan as secondary HCS. - CODE STATUS- FULL CODE - GOALS - 01/13 pt confirmed wanting to remain full code. Again indicating aggressive goals. - SYMPTOMS - * pain - 2/2 tumor, lines, tracheostomy. has rated his pain 10/10, he endorses pain in his neck and abdomen and discomfort from trach. Indicates morphine helpful but does not last long enough. Has gabapentin 300mg q8h. PRn oxycodone 10mg q4h pain 3-5 but PO meds held d/t ileus. methadone started 01/11 and discontinued after 2 d d/t concern for altered mental status, lethargy. Now has IV morphine 2mg q2h PRN, last had 1030 this morning. * dyspnea, secretions- 2/2 compromised airway, face/neck mass. Has tracheostomy , now on vent after episode vomiting, aspiration 01/13. Denies feeling SOB , secretions have been persistent. This will persist secondary to disease process. Continues to require frequent suctioning, this is keeping him from being transferred to floor. Pt wants to try chemo and radiation again but per oncology this is held until he shows improvement. On scheduled symbicort, sheduled duonebs prn michael vasquez. * anxiety - multifactorial. Patient has had flat affect, ambivalent, irritable. could be component of depression/anxiety. Earlier this week became extremely agitated en route to radiation therapy and essentially refused nursing was unable to transport. Oncology d/c xanax and added lorazepam. Although won't help in short term, could consider SSRI for longer term tx if pt amenable * nausea - multifactorial, s/p 3 x palliative chemotherapy tx, last one 01/06; now with ileus. few days ago complained of nausea with roxanol admin. Denies nausea today. Has promethazine 25mg IM PRN breakthrough nausea, scopolamine patch, reglan 10mg q6h PRN, both PO and IV zofran PRN. Does not appear he has been requesting these. - discussed with RN - Palliative care will continue to follow during hospital course as condition evolves, to assist patient/decision-maker with understanding of medical conditions, weighing benefits/burdens of treatment options, for clarification of goals of treatment. Additionally will assist with any symptoms of palliative concern Attestation Attestation: To help prompt me to consider important information that might be impacting today's encounter and assessment, information from prior notes written by myself or my colleagues may have been "brought forward" into today's note. My signature on this note, however, is an attestation that I personally performed the exam, history, and/or decision-making noted today, and, unless otherwise indicated, the interactions with patient, family, and staff as well as the review of records all occurred today. I also attest that the listed assessment and stated plan reflect my best clinical judgment today based on the combination of historical information, prior notes, and today's exam/ interactions. When time spent is documented, it refers only to time spent today by the signer, or if indicated, combined time spent today by collaborating physician/nurse practitioner.
--- NOTE | 2018-01-16 18:22 | P.PNPL ---
Subjective Interval history: 62 YO WM wit H&N CA,RF, Trach Put Back on vent Had hypotension, receeved Fluid bolus, normotensive now Tolerates TF Awake, follows commands Did't go for Radiation On PSV, Fi02 50% Physical Exam Vital signs: Vital Signs 01/15/18 18:30 01/15/18 18:45 01/15/18 19:00 Temperature Pulse Rate 95 H 94 H 94 H Respiratory Rate 22 25 H 37 H Blood Pressure 114/63 117/61 110/57 L Pulse Oximetry 97 97 98 01/15/18 19:15 01/15/18 19:30 01/15/18 19:45 Temperature Pulse Rate 97 H 95 H 95 H Respiratory Rate 17 31 H 23 Blood Pressure 115/67 125/64 124/67 Pulse Oximetry 99 01/15/18 20:00 01/15/18 20:15 01/15/18 20:30 Temperature Pulse Rate 95 H 95 H 95 H Respiratory Rate 21 18 19 Blood Pressure 119/62 127/71 125/67 Pulse Oximetry 01/15/18 20:36 01/15/18 20:45 01/15/18 21:00 Temperature Pulse Rate 96 H 95 H 97 H Respiratory Rate 12 12 19 Blood Pressure 126/72 128/68 Pulse Oximetry 94 L 01/15/18 21:16 01/15/18 21:30 01/15/18 21:45 Temperature Pulse Rate 99 H 97 H 94 H Respiratory Rate 30 H 13 17 Blood Pressure 122/75 131/68 119/62 Pulse Oximetry 01/15/18 22:00 01/15/18 22:15 01/15/18 22:30 Temperature Pulse Rate 96 H 96 H 93 H Respiratory Rate 13 14 14 Blood Pressure 129/71 131/68 117/68 Pulse Oximetry 98 01/15/18 22:45 01/15/18 23:00 01/15/18 23:15 Temperature Pulse Rate 95 H 92 H 94 H Respiratory Rate 18 22 14 Blood Pressure 126/69 129/69 128/69 Pulse Oximetry 01/15/18 23:30 01/15/18 23:45 01/16/18 00:00 Temperature Pulse Rate 96 H 92 H 94 H Respiratory Rate 15 25 H 16 Blood Pressure 117/66 125/72 129/67 Pulse Oximetry 78 L 01/16/18 00:15 01/16/18 00:30 01/16/18 00:45 Temperature 99.0 F Pulse Rate 92 H 90 90 Respiratory Rate 15 13 15 Blood Pressure 127/70 116/65 120/68 Pulse Oximetry 82 L 01/16/18 00:52 01/16/18 01:00 01/16/18 01:15 Temperature Pulse Rate 90 89 89 Respiratory Rate 10 L 22 14 Blood Pressure 115/62 118/66 Pulse Oximetry 93 L 76 L 01/16/18 01:30 01/16/18 01:45 01/16/18 02:00 Temperature Pulse Rate 92 H 91 H 90 Respiratory Rate 19 13 15 Blood Pressure 116/65 119/67 119/67 Pulse Oximetry 01/16/18 02:15 01/16/18 02:30 01/16/18 02:45 Temperature Pulse Rate 85 83 86 Respiratory Rate 12 12 16 Blood Pressure 102/55 L 105/59 L 121/66 Pulse Oximetry 01/16/18 03:00 01/16/18 03:15 01/16/18 03:30 Temperature Pulse Rate 87 86 86 Respiratory Rate 28 H 20 30 H Blood Pressure 122/72 113/61 108/59 L Pulse Oximetry 96 01/16/18 03:45 01/16/18 03:52 01/16/18 04:00 Temperature 98.8 F Pulse Rate 84 84 84 Respiratory Rate 37 H 10 L 18 Blood Pressure 101/56 L 102/56 L Pulse Oximetry 92 L 01/16/18 04:15 01/16/18 04:30 01/16/18 04:45 Temperature Pulse Rate 84 86 86 Respiratory Rate 22 22 37 H Blood Pressure 103/55 L 100/59 L 96/55 L Pulse Oximetry 99 01/16/18 05:00 01/16/18 05:15 01/16/18 06:00 Temperature Pulse Rate 88 86 85 Respiratory Rate 25 H 24 Blood Pressure 105/62 102/59 L Pulse Oximetry 100 100 01/16/18 08:00 01/16/18 08:15 01/16/18 08:23 Temperature 98.3 F Pulse Rate 91 H 89 Respiratory Rate 25 H 13 13 Blood Pressure 121/67 114/61 Pulse Oximetry 100 01/16/18 08:26 01/16/18 10:00 01/16/18 10:27 Temperature Pulse Rate 92 H 87 Respiratory Rate 14 14 Blood Pressure Pulse Oximetry 01/16/18 11:20 01/16/18 11:22 01/16/18 12:00 Temperature 98.1 F Pulse Rate 87 91 H Respiratory Rate 10 L 18 15 Blood Pressure Pulse Oximetry 01/16/18 12:01 01/16/18 12:15 01/16/18 14:00 Temperature Pulse Rate 92 H 106 H 90 Respiratory Rate 18 34 H Blood Pressure 121/74 130/65 Pulse Oximetry 01/16/18 16:00 01/16/18 16:19 01/16/18 16:20 Temperature 98.5 F Pulse Rate 96 H Respiratory Rate 21 10 L 16 Blood Pressure 132/67 Pulse Oximetry 01/16/18 16:21 01/16/18 18:00 Temperature Pulse Rate 93 H 91 H Respiratory Rate 10 L Blood Pressure Pulse Oximetry Intake & Output 01/15/18 01/16/18 01/16/18 18:59 06:59 18:59 Intake Total 1962 / 1962 2562 / 2562 1300 / 1300 Output Total 1450 / 1450 1000 / 1000 1250 / 1250 Balance 512 / 512 1562 / 1562 50 / 50 Weight 64.5 kg Intake: IV 1562 / 1562 2562 / 2562 1100 / 1100 Levophed Inj 16 MG In NS Inj 234 ML @ 2 MCG/MIN 1.87 mls/hr IV.CONT TITRATE PRN Rx#: [id number] NS Inj 1,000 ML @ 84 mls/hr IV. 1000 / 1000 1462 / 1462 1000 / 1000 CONT .[id number] [facility] Rx#:[id number] Alburx 5% Inj 500 ML @ 250 mls/ 100 / 100 hr IV.SIG ONCE ONE Rx#:[id number] Azactam Inj 2 GM In NS Inj 100 100 / 100 200 / 200 100 / 100 ML @ 200 mls/hr IV.SIG Q8H [facility] Rx#:[id number] KCl 40 mEq Premix Inj 40 meq In 100 / 100 100 ml @ 25 mls/hr IV.SIG ONCE ONE Rx#:[id number] Vancomycin Inj 1,000 MG In NS 250 / 250 500 / 500 Inj 250 ML @ 250 mls/hr IV.SIG Q8H [facility] Rx#:[id number] Oral 0 / 0 0 / 0 Tube Feeding 0 / 0 0 / 0 Water Bolus Amount 400 / 400 200 / 200 Output: Emesis 500 / 500 Urine Amount (Catheter) 950 / 950 1000 / 1000 1050 / 1050 Indwelling Urethral Catheter 950 / 950 1000 / 1000 1050 / 1050 Gastric Drainage 200 / 200 Left Lower Quadrant Gastrostomy 200 / 200 Tube (PEG) Other: Date of Last Bowel Movement 01/15/18 01/16/18 01/16/18 # Bowel Movements 5 1 GENERAL: [place]el[place] WM, on Vent SKIN: Warm and dry. HEAD: Normocephalic. EYES: No scleral icterus. No injection or drainage. NECK: Supple, trachea midline. No JVD or lymphadenopathy. neck mass, has trach CARDIOVASCULAR: Regular rate and rhythm without murmurs, gallops, or rubs. RESPIRATORY: Breath sounds equal bilaterally. No accessory muscle use. GASTROINTESTINAL: Abdomen soft, non-tender, nondistended. Has PEG MUSCULOSKELETAL: No cyanosis, or edema. BACK: Nontender without obvious deformity. No CVA tenderness. - Urinary Catheter Management Indwelling Urethral Catheter Cath placed during this visit: yes, but has since been removed by the nurse Reason for continuing: Acute urinary retention Insertion date: 01/14/18 Insertion time: 00:00 Removal date: 01/02/18 Removal time: 07:00 Condom Cath placed during this visit: yes Reason for continuing: Acute urinary retention Insertion date: 01/14/18 Insertion time: 18:30 Assessment and Plan - Plan Resp failure, on Vent S/P Emergent trach Neck Mass H&N Ca COPD Aspiration PLAN: Vent support Wean Fi02 cont Abx Aerosol nebs Tube feeding
[2018-01-16] MEDS ORDERED: Potassium Phosphate Inj 30 MMOL in Sodium Chlor 0.9% Inj 250 ML IV.SIG ONE (20:39)
--- NOTE | 2018-01-16 20:44 | P.PNCC ---
Subjective Subjective Remarks/Hospital Course: Remarks/Hospital Course This is a 62-year-old male with a past medical history of squamous cell carcinoma of the head and neck, lung mass COPD, hypertension diabetes with a history of tobacco abuse, that presented on 12/18. The patient regularly is seen at the [facility] however he was not afforded treatment at this time . The patient was admitted to the medical floor, hematology oncology had been consulted plans were for chemotherapy to be initiated today the patient underwent PEG placement yesterday. Late this afternoon the patient was noted to be hypoxemic with significant airway edema , O2 sat in the 80's, Pao2 59 on 100% nonrebreather ,in the setting of a large tumor mass .A Halicat was called , and the patient was emergently transferred to [place]. Upon transfer the patient was immediately out evaluated and noted to be in significant respiratory distress, oral airway significantly edematous tongue protruding out of mouth Mallampati unobtainable upon evaluation. The patient appeared to be alert and could not yes and no to questions unable to speak. Quick assessment of CT scans that were previously done of the neck showed a large tumor mass crossing midline. Dr. Cabello , Anesthesiologist in to evaluate patient at bedside discussed case with him. Emergency airway equipment placed at bedside trauma surgery was notified I spoke with Dr. Rangel, patient emergently scheduled for tracheostomy to secure airway. A left radial A-line was placed ABG on 100% nonrebreather was obtained prior to going PaO2 had risen to 60 on nonrebreather mask. 12/21: No acute events overnight. The patient underwent emergency tracheostomy to secure the airway last evening. Norepinephrine and fentanyl infusions have been discontinued this morning patient has been transitioned onto CPAP trials and denies any discomfort. Patient is communicating with board and marker. PEG tube in situ tube feedings Glucerna currently at 30 cc/an hour continue to be advanced to goal. FiO2 has been decreased to .45% 12/22: No acute events overnight. The patient was maintained on CPAP trials throughout the night and this afternoon plan trach collar trials this afternoon PT OT has been initiated. Patient tolerating tube feeds no residuals. 12/23: Patient progressing well currently on trach collar trials greater than 24 hours. Patient tolerating tube feeds diet. Chemotherapy initiated yesterday. Patient denies pain. 12/24: Late entry note patient seen at 11:40 AM. Overnight the patient became agitated pulling off lines and tubes. Patient had previous stated that he has an anxiety disorder ,Xanax was ordered however not given. Upon my evaluation this a.m. O2 saturation noted to be low patient placed on FiO2 of 80% stat ABG was performed to reveal hypoxemia the patient was placed back on CPAP stat chest x-ray was performed which showed worsening airspace disease in the bases. 12/25: Patient noted with episodes of nausea, tube feeds held. Zofran given for nausea. The patient continues to have increased FiO2 requirements the patient is being placed on trach collar during the day CPAP at night. 12/26: Vitals not documented. Currently on CPAP 10/5 and 40%. No bowel movements documented. Not on a bowel regimen. 12/27: Remains on mechanical ventilation via tracheostomy. On CPAP trials. 12/28: no changes. still with cpap trials. 12/29: tolerating t-piece trials. rested on cpap overnight. complaints of continued pain around tumor site, as well as significant secretions. 12/30: clinically doing well. denies complaints. asked that speech re-evaluate him because he would like to start eating real food again. plan for XRT to start today. 12/31: On mechanical ventilation via trach. Tolerating T piece trials 01/01: Remains on mechanical ventilation via trach. 01/02: On T-piece. Awaiting radiation today 01/13: Reconsult due to hypotension/aspiration with worsening oxygenation. Patient replaced back on the ventilator via tracheostomy with cuff inflated. Of note, patient has been refusing radiation therapy and his chemotherapy has been held for that reason by oncology. Patient with urinary tract infection/ becoming septic with possible infected PEG site as well. 01/14: Patient plan for CT abdomen/pelvis today. White blood cell count improved. Remains on ventilator. Greater than 1 L from G-tube to drainage overnight 01/15: Afebrile. Noted CT abdomen/pelvis revealed emphysematous cystitis. Discussed with urology. Tavarez has been placed. Will evaluate today. Currently on low-dose norepinephrine. Continues to have ileus. Subjective: 01/16: Patient requesting additional pain medication. G2 -200 cc. Recheck KUB today. White cell count is normalized. Off vasopressors. . Objective Vital Signs / I&O: Vital Signs 01/15/18 20:45 01/15/18 21:00 01/15/18 21:16 Temperature Pulse Rate 95 H 97 H 99 H Respiratory Rate 12 19 30 H Blood Pressure 126/72 128/68 122/75 Pulse Oximetry 01/15/18 21:30 01/15/18 21:45 01/15/18 22:00 Temperature Pulse Rate 97 H 94 H 96 H Respiratory Rate 13 17 13 Blood Pressure 131/68 119/62 129/71 Pulse Oximetry 01/15/18 22:15 01/15/18 22:30 01/15/18 22:45 Temperature Pulse Rate 96 H 93 H 95 H Respiratory Rate 14 14 18 Blood Pressure 131/68 117/68 126/69 Pulse Oximetry 98 01/15/18 23:00 01/15/18 23:15 01/15/18 23:30 Temperature Pulse Rate 92 H 94 H 96 H Respiratory Rate 22 14 15 Blood Pressure 129/69 128/69 117/66 Pulse Oximetry 01/15/18 23:45 01/16/18 00:00 01/16/18 00:15 Temperature Pulse Rate 92 H 94 H 92 H Respiratory Rate 25 H 16 15 Blood Pressure 125/72 129/67 127/70 Pulse Oximetry 78 L 01/16/18 00:30 01/16/18 00:45 01/16/18 00:52 Temperature 99.0 F Pulse Rate 90 90 90 Respiratory Rate 13 15 10 L Blood Pressure 116/65 120/68 Pulse Oximetry 82 L 93 L 01/16/18 01:00 01/16/18 01:15 01/16/18 01:30 Temperature Pulse Rate 89 89 92 H Respiratory Rate 22 14 19 Blood Pressure 115/62 118/66 116/65 Pulse Oximetry 76 L 01/16/18 01:45 01/16/18 02:00 01/16/18 02:15 Temperature Pulse Rate 91 H 90 85 Respiratory Rate 13 15 12 Blood Pressure 119/67 119/67 102/55 L Pulse Oximetry 01/16/18 02:30 01/16/18 02:45 01/16/18 03:00 Temperature Pulse Rate 83 86 87 Respiratory Rate 12 16 28 H Blood Pressure 105/59 L 121/66 122/72 Pulse Oximetry 01/16/18 03:15 01/16/18 03:30 01/16/18 03:45 Temperature Pulse Rate 86 86 84 Respiratory Rate 20 30 H 37 H Blood Pressure 113/61 108/59 L 101/56 L Pulse Oximetry 96 01/16/18 03:52 01/16/18 04:00 01/16/18 04:15 Temperature 98.8 F Pulse Rate 84 84 84 Respiratory Rate 10 L 18 22 Blood Pressure 102/56 L 103/55 L Pulse Oximetry 92 L 01/16/18 04:30 01/16/18 04:45 01/16/18 05:00 Temperature Pulse Rate 86 86 88 Respiratory Rate 22 37 H 25 H Blood Pressure 100/59 L 96/55 L 105/62 Pulse Oximetry 99 100 01/16/18 05:15 01/16/18 06:00 01/16/18 08:00 Temperature 98.3 F Pulse Rate 86 85 91 H Respiratory Rate 24 25 H Blood Pressure 102/59 L 121/67 Pulse Oximetry 100 01/16/18 08:15 01/16/18 08:23 01/16/18 08:26 Temperature Pulse Rate 89 92 H Respiratory Rate 13 13 14 Blood Pressure 114/61 Pulse Oximetry 100 01/16/18 10:00 01/16/18 10:27 01/16/18 11:20 Temperature Pulse Rate 87 Respiratory Rate 14 10 L Blood Pressure Pulse Oximetry 01/16/18 11:22 01/16/18 12:00 01/16/18 12:01 Temperature 98.1 F Pulse Rate 87 91 H 92 H Respiratory Rate 18 15 18 Blood Pressure 121/74 Pulse Oximetry 01/16/18 12:15 01/16/18 14:00 01/16/18 16:00 Temperature 98.5 F Pulse Rate 106 H 90 96 H Respiratory Rate 34 H 21 Blood Pressure 130/65 132/67 Pulse Oximetry 01/16/18 16:19 01/16/18 16:20 01/16/18 16:21 Temperature Pulse Rate 93 H Respiratory Rate 10 L 16 10 L Blood Pressure Pulse Oximetry 01/16/18 18:00 Temperature Pulse Rate 91 H Respiratory Rate Blood Pressure Pulse Oximetry Intake & Output 01/16/18 01/16/18 01/17/18 06:59 18:59 06:59 Intake Total 2562 / 2562 1300 / 1300 350 / 350 Output Total 1000 / 1000 1250 / 1250 Balance 1562 / 1562 50 / 50 350 / 350 Weight 64.5 kg Intake: IV 2562 / 2562 1100 / 1100 350 / 350 NS Inj 1,000 ML @ 84 mls/hr IV. 1462 / 1462 1000 / 1000 CONT .[id number] [facility] Rx#:[id number] Azactam Inj 2 GM In NS Inj 100 200 / 200 100 / 100 100 / 100 ML @ 200 mls/hr IV.SIG Q8H [facility] Rx#:[id number] Vancomycin Inj 1,000 MG In NS 500 / 500 250 / 250 Inj 250 ML @ 250 mls/hr IV.SIG Q8H [facility] Rx#:[id number] Oral 0 / 0 Tube Feeding 0 / 0 Water Bolus Amount 200 / 200 Output: Urine Amount (Catheter) 1000 / 1000 1050 / 1050 Indwelling Urethral Catheter 1000 / 1000 1050 / 1050 Gastric Drainage 200 / 200 Left Lower Quadrant Gastrostomy 200 / 200 Tube (PEG) Other: Date of Last Bowel Movement 01/16/18 01/16/18 # Bowel Movements 1 Result Diagrams: 01/16/18 14:40 01/16/18 04:55 Other Results: Microbiology 01/12/18 20:40 Blood - Peripheral Aerobic Blood Culture - Preliminary No growth in 4 days 01/12/18 20:40 Blood - Peripheral Anaerobic Blood Culture - Preliminary No growth in 4 days 01/12/18 20:45 Blood - Peripheral Aerobic Blood Culture - Preliminary No growth in 4 days 01/12/18 20:45 Blood - Peripheral Anaerobic Blood Culture - Preliminary No growth in 4 days 01/12/18 08:45 Wound - Abdominal Gram Stain - Final 01/12/18 08:45 Wound - Abdominal Wound Culture - Final Escherichia coli Lucy albicans Enterococcus faecium 01/13/18 18:14 Sputum - Endotracheal Gram Stain - Final 01/13/18 18:14 Sputum - Endotracheal Sputum Culture - Final Escherichia coli 01/12/18 08:45 Clean Catch Urine Urine Culture - Final Escherichia coli 12/27/17 10:37 Sputum - Endotracheal Gram Stain - Final 12/27/17 10:37 Sputum - Endotracheal Sputum Culture - Final Heavy growth normal respiratory k[facility] Imaging: Chest X-Ray 12/25/17 06:00 CONCLUSION: Support apparatus unchanged. Stable basilar airspace disease and trace pleural fluid. Chest X-Ray 12/27/17 00:01 CONCLUSION: Persistent nonconsolidative airspace infiltrates in the left lower lung. Abdomen X-Ray 01/13/18 00:00 CONCLUSION: Nonspecific abdominal bowel gas pattern with one loop of small bowel measuring up to 5.4 cm. Recommend serial films. Gastrostomy in place. Chest X-Ray 01/13/18 00:00 CONCLUSION: Interval resolution of left lower lung consolidation with residual bilateral chronic interstitial prominence. Abdomen/Pelvis CT 01/14/18 00:00 CONCLUSION: 1. Abnormal urinary bladder with multiple small gas collections along the bladder wall with apparent mild thickening or adjacent fluid. There is small amount of intraluminal air. 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 In addition there are multiple small enhancing nodule lower areas along the posterior aspect of the bladder which could indicate tumor. 2. 2 new small right pulmonary nodules. This is of concern for metastatic disease. 3. Nonspecific bowel gas pattern most characteristic of an ileus. There is a small to moderate amount of fluid in the chest or pelvis. 4. Multiple bilateral renal calculi. There is mild prominence of the collecting systems and ureters which likely is secondary to bladder abnormality. 5. Cholelithiasis. 6. Chronic pancreatitis. The pancreatic duct now appears mildly dilated. These findings were called to Dr. Humphrey at 1755 hours. Abdomen X-Ray 01/14/18 00:01 CONCLUSION: Nonspecific bowel gas pattern again seen with gas-filled large and small bowel. Slight decrease in distention of the bowel. Chest X-Ray 01/14/18 06:00 CONCLUSION: Slight increase in bilateral right greater than left lower lung zone pulmonary opacity. Abdomen X-Ray 01/15/18 00:00 CONCLUSION: Unremarkable bowel gas pattern with no evidence of obstruction. Abdomen X-Ray 01/15/18 00:01 CONCLUSION: Nonspecific bowel gas pattern. No significant interval change. Chest X-Ray 01/16/18 06:00 CONCLUSION: 1. . Biapical emphysematous changes/scarring 2. Worsening left basilar consolidation/effusion. Objective Remarks: GENERAL: 62-year-old cachectic male in no apparent distress. Communicating in writing. SKIN: Warm and dry. No rash HEAD: Atraumatic. Normocephalic. EYES: Pupils equal and round. No scleral icterus. No injection or drainage. ENT: No nasal bleeding or discharge. Mucous membranes pink and moist. Tongue less edematous protruding from mouth unable to open mouth lips slightly less edematous. Inability to view oral aperture or oral pharynx NECK: Trachea midline. No JVD. Noted right sided neck mass. 8.0 Shiley tracheostomy in situ CARDIOVASCULAR: Normal rate, regular rhythm. S1,. S2. No S4. Without murmur. No rubs RESPIRATORY: Currently on ventilator via tracheostomy. No accessory muscle use. Clear to auscultation. Breath sounds equal bilaterally. GASTROINTESTINAL: Abdomen soft, non-tender, slightly distended with hypoactive bowel sounds appreciated. No high-pitched sounds.. No guarding. PEG tube insitu with some exudate greenish currently to gravity MUSCULOSKELETAL: Extremities without clubbing, cyanosis, or edema. No obvious deformities. NEUROLOGICAL: Arousable on the ventilator. Follows commands in all 4 extremities. Patient nodding head to yes and no questions, right son paper questions. Assessment and Plan - Assessment and Plan Plan: Neuro/Psych: Acute Pain associated with head/neck cancer History of EtOH abuse Acetaminophen 650 mg every 6 hours as needed for pain and/or temperature Alprazolam 0.5 mg every 8 hours as needed for agitation Temazepam 15 mg at night as needed insomnia Continue gabapentin 300 mg every 8 hours Continue tizanidine 4 mg every 12 hours On Roxanol 4 milligram every 6 scheduled currently -hold secondary to ileus noted discontinued methadone 01/12 Continue morphine sulfate 2 mg IV every 2 hours as needed for breakthrough pain Respiratory: Acute on chronic hypoxic respiratory failure COPD exacerbation Lung mass/2 new right lower lobe pulmonary nodules Head and neck cancer -squamous cell carcinoma Chronic airway compromise Class IV Mallampati rating 12/20 S/P Emergent tracheostomy to secure airway, 8.0 Shiley 12/21 trach collar trials on .40% initiated. Patient placed back on CPAP 12/24 secondary to hypoxemia and worsening chest x-ray PRVC 16/500/1//50 Continue budesonide/formoterol 160/4.5 2 puffs twice daily Albuterol/ipratropium aerosols every 4 hours with albuterol aerosols every 2 hours as indicated for dyspnea Ventilator bundle ABG/chest x-ray in a.m. 01/16 Cardiovascular: History of hypertension History of hyperlipidemia Severe sepsis Continue with normal saline at 84 cc an hour. Bolus with albumin 5% 500 cc 1 now.. 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 Monitor urine output with accurate I's and O's. Discussed with urology. Tavarez catheter is in place. Evaluation today. FEN/GI: PEG placement 12/19 Nausea and vomiting Possible infection PEG tube History of chronic pancreatitis Cholelithiasis Hyponatremia Hypoalbuminemia History of gastroesophageal reflux disease Ileus Glucerna 1.5 with previous 70 cc/hr. on hold due to ileus likely narcotic induced Past 24 hours Lansoprazole 30 mg daily for GI prophylaxis Bowel regimen with docusate sodium 100 mg twice daily Currently in free water 100 cc every 8 hours to maintain PEG tube patency KUB revealed small/large bowel gas exchange. NG tube currently to suction. CT abdomen/pelvis revealed moderate's small bowel dilatation. Cholelithiasis. Chronic pancreatitis. Bilateral nephrolithiasis with mildly dilated renal calyces and ureter. See above Methylnaltrexone 12 mg subcu 1 now. Heme/ID: Head and neck cancer -squamous cell carcinoma of the right tonsil E. coli UTI Leukocytosis Normocytic anemia Hematology oncology following-patient was tentatively scheduled for chemotherapy to initiate 12/20 Received carbo/Taxol. 3 rounds. Currently on hold secondary to patient refusing radiation therapy. Patient was initiated on levofloxacin and vancomycin on 12/20. now s/p full course of abx. Will treat with aztreonam, vancomycin and metronidazole day #3. E. coli is resistant to levofloxacin 01/12 -wound -E. coli, C. albicans, Enterococcus faecalis 01/12 -urine -E. coli 01/13 -sputum -E. coli Blood culture 01/12-NGTD Endocrine: Diabetes mellitus Glucose monitoring per ICU protocol beam dose every 6 hours aspart Currently on insulin detemir 6 units at night. Holding while n.p.o. -- SSI Prophylaxis: GI Prophylaxis Lansoprazole DVT Prophylaxis -- SCDs Enoxaparin Lines: Left radial A-line dc'd 12/22, right chest [id number] Level 3 follow-up
[2018-01-16] MEDS: Scopalamine 1.5 MG Patch T-DERMAL SCH (21:10)
[2018-01-16] MEDS: [UNRECOGNIZED DRUG - REMARK] T-DERMAL SCH (21:10)
[2018-01-17 00:31] LABS: Baso % (Auto) 0.3 % (0.0-2.0); Eos % (Auto) 0.4 % (0.0-4.0); Hematocrit 24.5 % (39.0-51.0); Hemoglobin 8.1 gm/dL (13.0-17.0); Lymph # (Auto) 1.8 th/mm3 (1.0-4.8); Lymph % (Auto) 17.1 % (9.0-44.0); Mean Corpuscular HGB Conc 32.9 % (32.0-36.0); Mean Corpuscular Hemoglobin 29.6 pg (27.0-34.0); Mean Platelet Volume 7.7 fL (7.0-11.0); Mono # (Auto) 1.5 th/mm3 (0.0-0.9); Mono % (Auto) 13.9 % (0.0-8.0); Neut # (Auto) 7.1 th/mm3 (1.8-7.7); Neut % (Auto) 68.3 % (16.0-70.0); Platelet Count 249 th/mm3 (150-450); Red Blood Count 2.72 mil/mm3 (4.50-5.90); Red Cell Distribution Width 15.7 % (11.6-17.2); White Blood Count 10.4 th/mm3 (4.0-11.0)
[2018-01-17] MEDS: Insulin NovoLOG Aspart Correctional Sugar Inj SQ SCH ×5 (00:39→23:10)
[2018-01-17 01:05] LABS: Anion Gap 8 meq/L (5-15); Blood Urea Nitrogen 10 mg/dL (7-18); Calcium 7.4 mg/dL (8.5-10.1); Carbon Dioxide 28.7 meq/L (21.0-32.0); Chloride 105 meq/L (98-107); Glomerular Filtration Rate Greater Than 89 mL/min (>89); Glucose,Random 95 mg/dL (74-106); Magnesium 1.6 mg/dL (1.5-2.5); Phosphorus 2.7 mg/dL (2.5-4.9); Potassium 3.4 meq/L (3.5-5.1); Sodium 142 meq/L (136-145)
[2018-01-17] MEDS: Artificial Tears Opth Drops 15 ML Bottle EACH EYE SCH ×3 (01:15→18:42)
[2018-01-17] MEDS: Aztreonam Inj 2 GM in Sodium Chloride 0.9% Inj 100 ML IV.SIG SCH ×3 (01:16→18:42)
[2018-01-17] MEDS: Morphine Inj 4 MG/ML Vial IV.PUSH PRN ×9 (01:16→23:00)
[2018-01-17 01:20] LABS: Total Protein 4.7 g/dL (6.4-8.2)
[2018-01-17] MEDS: Sod Chloride 0.9% Inj 1,000 ML IV.CONT SCH ×2 (05:50→15:55)
[2018-01-17] MEDS: Vancomycin Inj 1,000 MG in Sodium Chlor 0.9% Inj 250 ML IV.SIG SCH ×3 (05:50→21:14)
[2018-01-17] MEDS: Gabapentin Liq 250 MG/5 ML UDC PO SCH ×3 (05:51→21:15)
[2018-01-17] MEDS: metroNIDAZOLE 500 MG Tablet PO SCH ×4 (05:51→23:10)
--- NOTE | 2018-01-17 06:27 | XR ---
EXAM DATE: 01/17/2018 6:19 AM EDT AGE/SEX: 62 years / Male INDICATIONS: Evaluate for ileus. CLINICAL DATA: This is the patient's subsequent encounter. Patient reports that signs and symptoms h ave been present for 1 month and indicates a pain score of Nonresponsive. MEDICAL/SURGICAL HISTORY: . Cardiovascular disease. Hypertension. Gastroesophageal reflux disea se. Metastatic head and neck cancer., diabetes, atrial fibrillation . None. COMPARISON: C, ABDOMEN 1V KUB, 01/15/2018. . FINDINGS: The abdominal bowel gas pattern is normal. No findings of obstruction. Gastrostomy tube projects ove r the left upper abdominal quadrant. Dense athetotic calcification of the regional vasculature. [place] us structures are intact. CONCLUSION: 1. Nonobstructed bowel gas pattern. No pneumoperitoneum. 2. Gastrostomy tube projecting over the left upper abdominal quadrant Electronically signed by: Gabe Correia MD 01/17/2018 6:26 AM EDT
[2018-01-17] MEDS: Docusate Sodium Liq 100 MG/10 ML UDC G-TUBE SCH ×2 (08:25→21:11)
[2018-01-17] MEDS: Sennosides Liq 8.8 MG/5 ML UDC G-TUBE SCH ×2 (08:25→21:13)
[2018-01-17] MEDS: Chlorhexidine Gluconate 0.12% Liq 15 ML UDC SWISH-SPIT SCH ×2 (08:25→21:13)
[2018-01-17] MEDS: Polyethylene Glycol 3350 17 GM Packet G-TUBE SCH ×2 (08:25→21:12)
--- NOTE | 2018-01-17 10:43 | P.PNCC ---
Subjective Subjective Remarks/Hospital Course: Remarks/Hospital Course This is a 62-year-old male with a past medical history of squamous cell carcinoma of the head and neck, lung mass COPD, hypertension diabetes with a history of tobacco abuse, that presented on 12/18. The patient regularly is seen at the [facility] however he was not afforded treatment at this time . The patient was admitted to the medical floor, hematology oncology had been consulted plans were for chemotherapy to be initiated today the patient underwent PEG placement yesterday. Late this afternoon the patient was noted to be hypoxemic with significant airway edema , O2 sat in the 80's, Pao2 59 on 100% nonrebreather ,in the setting of a large tumor mass .A Halicat was called , and the patient was emergently transferred to [facility] [place] Upon transfer the patient was immediately out evaluated and noted to be in significant respiratory distress, oral airway significantly edematous tongue protruding out of mouth Mallampati unobtainable upon evaluation. The patient appeared to be alert and could not yes and no to questions unable to speak. Quick assessment of CT scans that were previously done of the neck showed a large tumor mass crossing midline. Dr. Cabello , Anesthesiologist in to evaluate patient at bedside discussed case with him. Emergency airway equipment placed at bedside trauma surgery was notified I spoke with Dr. Rangel, patient emergently scheduled for tracheostomy to secure airway. A left radial A-line was placed ABG on 100% nonrebreather was obtained prior to going PaO2 had risen to 60 on nonrebreather mask. 12/21: No acute events overnight. The patient underwent emergency tracheostomy to secure the airway last evening. Norepinephrine and fentanyl infusions have been discontinued this morning patient has been transitioned onto CPAP trials and denies any discomfort. Patient is communicating with board and marker. PEG tube in situ tube feedings Glucerna currently at 30 cc/an hour continue to be advanced to goal. FiO2 has been decreased to .45% 12/22: No acute events overnight. The patient was maintained on CPAP trials throughout the night and this afternoon plan trach collar trials this afternoon PT OT has been initiated. Patient tolerating tube feeds no residuals. 12/23: Patient progressing well currently on trach collar trials greater than 24 hours. Patient tolerating tube feeds diet. Chemotherapy initiated yesterday. Patient denies pain. 12/24: Late entry note patient seen at 11:40 AM. Overnight the patient became agitated pulling off lines and tubes. Patient had previous stated that he has an anxiety disorder ,Xanax was ordered however not given. Upon my evaluation this a.m. O2 saturation noted to be low patient placed on FiO2 of 80% stat ABG was performed to reveal hypoxemia the patient was placed back on CPAP stat chest x-ray was performed which showed worsening airspace disease in the bases. 12/25: Patient noted with episodes of nausea, tube feeds held. Zofran given for nausea. The patient continues to have increased FiO2 requirements the patient is being placed on trach collar during the day CPAP at night. 12/26: Vitals not documented. Currently on CPAP 10/5 and 40%. No bowel movements documented. Not on a bowel regimen. 12/27: Remains on mechanical ventilation via tracheostomy. On CPAP trials. 12/28: no changes. still with cpap trials. 12/29: tolerating t-piece trials. rested on cpap overnight. complaints of continued pain around tumor site, as well as significant secretions. 12/30: clinically doing well. denies complaints. asked that speech re-evaluate him because he would like to start eating real food again. plan for XRT to start today. 12/31: On mechanical ventilation via trach. Tolerating T piece trials 01/01: Remains on mechanical ventilation via trach. 01/02: On T-piece. Awaiting radiation today 01/13: Reconsult due to hypotension/aspiration with worsening oxygenation. Patient replaced back on the ventilator via tracheostomy with cuff inflated. Of note, patient has been refusing radiation therapy and his chemotherapy has been held for that reason by oncology. Patient with urinary tract infection/ becoming septic with possible infected PEG site as well. 01/14: Patient plan for CT abdomen/pelvis today. White blood cell count improved. Remains on ventilator. Greater than 1 L from G-tube to drainage overnight 01/15: Afebrile. Noted CT abdomen/pelvis revealed emphysematous cystitis. Discussed with urology. Tavarez has been placed. Will evaluate today. Currently on low-dose norepinephrine. Continues to have ileus. 01/16: Patient requesting additional pain medication. G2 -200 cc. Recheck KUB today. White cell count is normalized. Off vasopressors. Subjective: 01/17: Resting complaint bed in no acute distress. Complaining of pain in neck. Off all vasopressors. We will restart tube feeds today at 20 cc an hour goal. . Objective Vital Signs / I&O: Vital Signs 01/16/18 11:20 01/16/18 11:22 01/16/18 12:00 Temperature 98.1 F Pulse Rate 87 91 H Respiratory Rate 10 L 18 15 Blood Pressure Pulse Oximetry 01/16/18 12:01 01/16/18 12:15 01/16/18 14:00 Temperature Pulse Rate 92 H 106 H 90 Respiratory Rate 18 34 H Blood Pressure 121/74 130/65 Pulse Oximetry 01/16/18 16:00 01/16/18 16:19 01/16/18 16:20 Temperature 98.5 F Pulse Rate 96 H Respiratory Rate 21 10 L 16 Blood Pressure 132/67 Pulse Oximetry 01/16/18 16:21 01/16/18 18:00 01/16/18 20:00 Temperature 99.5 F Pulse Rate 93 H 91 H 88 Respiratory Rate 10 L 21 Blood Pressure 116/62 Pulse Oximetry 100 01/16/18 21:35 01/16/18 21:37 01/16/18 22:00 Temperature Pulse Rate 86 85 Respiratory Rate 9 L 9 L Blood Pressure Pulse Oximetry 01/17/18 00:00 01/17/18 00:51 01/17/18 02:00 Temperature 99.2 F Pulse Rate 82 85 84 Respiratory Rate 14 10 L Blood Pressure 101/58 L Pulse Oximetry 01/17/18 04:00 01/17/18 04:09 01/17/18 06:00 Temperature 99.3 F Pulse Rate 89 88 92 H Respiratory Rate 11 L 10 L Blood Pressure 121/67 Pulse Oximetry 01/17/18 08:00 01/17/18 09:27 01/17/18 09:29 Temperature 99.4 F Pulse Rate 91 H 88 Respiratory Rate 12 10 L 11 L Blood Pressure 129/69 Pulse Oximetry Intake & Output 01/16/18 01/17/18 01/17/18 18:59 06:59 18:59 Intake Total 1300 / 1300 4210 / 4210 250 / 250 Output Total 1250 / 1250 1100 / 1100 Balance 50 / 50 3110 / 3110 250 / 250 Weight 65 kg Intake: IV 1100 / 1100 4210 / 4210 250 / 250 NS Inj 1,000 ML @ 84 mls/hr IV. 1000 / 1000 1000 / 1000 CONT .[id number] [facility] Rx#:[id number] Azactam Inj 2 GM In NS Inj 100 100 / 100 200 / 200 ML @ 200 mls/hr IV.SIG Q8H [facility] Rx#:[id number] Potassium Phosphate Inj 30 MMOL 260 / 260 In NS Inj 250 ML @ 43.333 mls/ hr IV.SIG ONCE ONE Rx#:[id number] Vancomycin Inj 1,000 MG In NS 500 / 500 250 / 250 Inj 250 ML @ 250 mls/hr IV.SIG Q8H [facility] Rx#:[id number] Water Bolus Amount 200 / 200 Output: Urine Amount (Catheter) 1050 / 1050 950 / 950 Indwelling Urethral Catheter 1050 / 1050 950 / 950 Gastric Drainage 200 / 200 150 / 150 Left Lower Quadrant Gastrostomy 200 / 200 150 / 150 Tube (PEG) Other: Date of Last Bowel Movement 01/16/18 01/16/18 01/16/18 # Bowel Movements 0 Result Diagrams: 01/17/18 00:10 01/17/18 00:10 Other Results: Microbiology 01/12/18 20:40 Blood - Peripheral Aerobic Blood Culture - Preliminary No growth in 4 days 01/12/18 20:40 Blood - Peripheral Anaerobic Blood Culture - Preliminary No growth in 4 days 01/12/18 20:45 Blood - Peripheral Aerobic Blood Culture - Preliminary No growth in 4 days 01/12/18 20:45 Blood - Peripheral Anaerobic Blood Culture - Preliminary No growth in 4 days 01/12/18 08:45 Wound - Abdominal Gram Stain - Final 01/12/18 08:45 Wound - Abdominal Wound Culture - Final Escherichia coli Lucy albicans Enterococcus faecium 01/13/18 18:14 Sputum - Endotracheal Gram Stain - Final 01/13/18 18:14 Sputum - Endotracheal Sputum Culture - Final Escherichia coli 01/12/18 08:45 Clean Catch Urine Urine Culture - Final Escherichia coli 12/27/17 10:37 Sputum - Endotracheal Gram Stain - Final 12/27/17 10:37 Sputum - Endotracheal Sputum Culture - Final Heavy growth normal respiratory kali Imaging: Chest X-Ray 12/25/17 06:00 CONCLUSION: Support apparatus unchanged. Stable basilar airspace disease and trace pleural fluid. Chest X-Ray 12/27/17 00:01 CONCLUSION: Persistent nonconsolidative airspace infiltrates in the left lower lung. Abdomen X-Ray 01/13/18 00:00 CONCLUSION: Nonspecific abdominal bowel gas pattern with one loop of small bowel measuring up to 5.4 cm. Recommend serial films. Gastrostomy in place. Chest X-Ray 01/13/18 00:00 CONCLUSION: Interval resolution of left lower lung consolidation with residual bilateral chronic interstitial prominence. Abdomen/Pelvis CT 01/14/18 00:00 CONCLUSION: 1. Abnormal urinary bladder with multiple small gas collections along the bladder wall with apparent mild thickening or adjacent fluid. There is small amount of intraluminal air. 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 In addition there are multiple small enhancing nodule lower areas along the posterior aspect of the bladder which could indicate tumor. 2. 2 new small right pulmonary nodules. This is of concern for metastatic disease. 3. Nonspecific bowel gas pattern most characteristic of an ileus. There is a small to moderate amount of fluid in the chest or pelvis. 4. Multiple bilateral renal calculi. There is mild prominence of the collecting systems and ureters which likely is secondary to bladder abnormality. 5. Cholelithiasis. 6. Chronic pancreatitis. The pancreatic duct now appears mildly dilated. These findings were called to Dr. Humphrey at 1755 hours. Abdomen X-Ray 01/14/18 00:01 CONCLUSION: Nonspecific bowel gas pattern again seen with gas-filled large and small bowel. Slight decrease in distention of the bowel. Chest X-Ray 01/14/18 06:00 CONCLUSION: Slight increase in bilateral right greater than left lower lung zone pulmonary opacity. Abdomen X-Ray 01/15/18 00:00 CONCLUSION: Unremarkable bowel gas pattern with no evidence of obstruction. Abdomen X-Ray 01/15/18 00:01 CONCLUSION: Nonspecific bowel gas pattern. No significant interval change. Chest X-Ray 01/16/18 06:00 CONCLUSION: 1. . Biapical emphysematous changes/scarring 2. Worsening left basilar consolidation/effusion. Abdomen X-Ray 01/17/18 00:00 CONCLUSION: 1. Nonobstructed bowel gas pattern. No pneumoperitoneum. 2. Gastrostomy tube projecting over the left upper abdominal quadrant Objective Remarks: GENERAL: 62-year-old cachectic male in no apparent distress. Communicating in writing. SKIN: Warm and dry. No rash HEAD: Atraumatic. Normocephalic. EYES: Pupils equal and round. No scleral icterus. No injection or drainage. ENT: No nasal bleeding or discharge. Mucous membranes pink and moist. Tongue less edematous protruding from mouth unable to open mouth lips slightly less edematous. Inability to view oral aperture or oral pharynx NECK: Trachea midline. No JVD. Noted right sided neck mass. 8.0 Shiley tracheostomy in situ CARDIOVASCULAR: Normal rate, regular rhythm. S1,. S2. No S4. Without murmur. No rubs RESPIRATORY: Currently on ventilator via tracheostomy. No accessory muscle use. Clear to auscultation. Breath sounds equal bilaterally. GASTROINTESTINAL: Abdomen soft, non-tender, slightly distended with hypoactive bowel sounds appreciated. No high-pitched sounds.. No guarding. PEG tube insitu with some exudate greenish currently to gravity MUSCULOSKELETAL: Extremities without clubbing, cyanosis, or edema. No obvious deformities. NEUROLOGICAL: Arousable on the ventilator. Follows commands in all 4 extremities. Patient nodding head to yes and no questions, writes answers on tablet paper questions. Assessment and Plan - Assessment and Plan Plan: Neuro/Psych: Acute Pain associated with head/neck cancer History of EtOH abuse Acetaminophen 650 mg every 6 hours as needed for pain and/or temperature Alprazolam 0.5 mg every 8 hours as needed for agitation Temazepam 15 mg at night as needed insomnia Continue gabapentin 300 mg every 8 hours Continue tizanidine 4 mg every 12 hours On Roxanol 4 milligram every 6 scheduled currently -hold secondary to ileus noted discontinued methadone 01/12 Continue morphine sulfate 2 mg IV every 2 hours as needed for breakthrough pain Respiratory: Acute on chronic hypoxic respiratory failure COPD exacerbation Lung mass/2 new right lower lobe pulmonary nodules Head and neck cancer -squamous cell carcinoma Chronic airway compromise Class IV Mallampati rating 12/20 S/P Emergent tracheostomy to secure airway, 8.0 Shiley 12/21 trach collar trials on .40% initiated. Patient placed back on CPAP 12/24 secondary to hypoxemia and worsening chest x-ray PRVC 16/500///50 Continue budesonide/formoterol 160/4.5 2 puffs twice daily Albuterol/ipratropium aerosols every 4 hours with albuterol aerosols every 2 hours as indicated for dyspnea Ventilator bundle ABG/chest x-ray in a.m. 01/16 Cardiovascular: History of hypertension History of hyperlipidemia Severe sepsis Continue with normal saline at 84 cc an hour. Bolus with albumin 5% 500 cc 1 now.. 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 Monitor urine output with accurate I's and O's. Discussed with urology. Tavarez catheter is in place. Evaluation today. FEN/GI: PEG placement 12/19 Nausea and vomiting Possible infection PEG tube History of chronic pancreatitis Cholelithiasis Hyponatremia Hypoalbuminemia History of gastroesophageal reflux disease Ileus Glucerna 1.5 with previous 70 cc/hr. on hold due to ileus likely narcotic induced. Restart today at 20 cc goal. Lansoprazole 30 mg daily for GI prophylaxis Bowel regimen with docusate sodium 100 mg twice daily, senna 8.8 mg twice daily , polythene glycol 17 g twice daily and lactulose 30 cc twice daily Currently in free water 100 cc every 8 hours to maintain PEG tube patency KUB revealed small/large bowel gas exchange. NG tube currently to suction. Recheck in a.m. 01/18 CT abdomen/pelvis revealed moderate's small bowel dilatation. Cholelithiasis. Chronic pancreatitis. Bilateral nephrolithiasis with mildly dilated renal calyces and ureter. See above Metoclopramide 10 mg every 6 hours Heme/ID: Head and neck cancer -squamous cell carcinoma of the right tonsil E. coli UTI Normocytic anemia Hematology oncology following-patient was tentatively scheduled for chemotherapy to initiate 12/20 Received carbo/Taxol. 3 rounds. Currently on hold secondary to patient refusing radiation therapy. Patient was initiated on levofloxacin and vancomycin on 12/20. now s/p full course of abx. Will treat with aztreonam, vancomycin and metronidazole day #4. E. coli is resistant to levofloxacin 01/12 -wound -E. coli, C. albicans, Enterococcus faecalis 01/12 -urine -E. coli 01/13 -sputum -E. coli Blood culture 01/12-NGTD Endocrine: Diabetes mellitus Glucose monitoring per ICU protocol beam dose every 6 hours aspart Currently on insulin detemir 6 units at night. Holding while n.p.o. -- SSI Prophylaxis: GI Prophylaxis Lansoprazole DVT Prophylaxis -- SCDs Enoxaparin Lines: Left radial A-line dc'd 12/22, right chest [id number] Level 3 follow-up
[2018-01-17] MEDS: Budesonide-Formoterol 160/4.5 MCG 6 GM Inhaler INH SCH ×2 (10:59→21:14)
[2018-01-17] MEDS: Enoxaparin Inj 40 MG/0.4 ML Syringe SQ SCH (11:00)
--- NOTE | 2018-01-17 11:49 | XR ---
EXAM DATE: 01/17/2018 11:40 AM EDT AGE/SEX: 62 years / Male INDICATIONS: Evaluate ileus. CLINICAL DATA: This is the patient's subsequent encounter. Patient reports that signs and symptoms h ave been present for 3 weeks and indicates a pain score of Nonresponsive. MEDICAL/SURGICAL HISTORY: . Chronic obstructive pulmonary disease. Pancreatitis. Head and neck cancer, lung mass . Bowel resection. Back surgery. . [place] [facility] [place] KUB[place]17/[place]. . FINDINGS: A single AP supine view of the abdomen and pelvis was obtained and demonstrates a mild interval impr ovement in the bowel gas pattern. There are multiple loops of nondilated air-containing small bowel w hich appear slightly smaller in size. Gas and stool is noted segmentally in the colon. There is no ev idence of free air. The gastrostomy tube is again noted in the left upper abdomen. Bony structures ar e intact. The lung bases appear clear. CONCLUSION: Mild interval improvement in the bowel gas pattern. Electronically signed by: Bret Peterson MD 01/17/2018 11:48 AM EDT
[2018-01-17] MEDS ORDERED: Pharmacy Ordered Lab Info OTHER ONE ×2 (12:45→20:45)
--- NOTE | 2018-01-17 15:29 | P.PNPAL ---
Reason for Visit Reason for visit: a. To assist with evaluation and management of symptoms including: pain, dyspnea, anxiety, nausea b. To assist medical decision maker(s) with: better understanding of current medical conditions; weighing benefits/burdens of medical treatment options; making medical treatment decisions. Subjective Subjective/Interval History: Pt remain in ICU on mech vent. + tolerating CPAP today. repeat abdominal imaging today = There are multiple loops of nondilated air- containing small bowel which appear slightly smaller in size. Gas and stool is noted segmentally in the colon. There is no evidence of free air. Mild interval improvement in the bowel gas pattern. + on aztreonam, vanco. No bm today, multiple yesterday per nursing. +moderate amt output from PEG to suction. Pt seen in room no visotors present. He is initially sleeping, arouses easily. nods appropraitly, indicates he remembers me, primarily communicates via gestures, nods declines to write. Appears to have reasonable understanding. Review multiple issues- infections, GI ileus/decreased motility, ventilator/ resp failure that limit aggressive tx with chemo/XRT at this time. He nods in understanding. He does indicate he wants to do chemo/radiation again. Gently explore that current acute issues need to improve before can resume, also explore that if they do not improve he may not get better enough to resume chemo /XRT. Explore that if he decided he did not want further invasive tx, diagnostics etc, then he would be appropriate for hospice, who would ensure his comfort with disease process as it progressed. He is not interested in that currently. He endorses continued pain to rt side face/neck, using prn helps for about 1.5- 2 hrs but then is painful again. Advise that we cannot completely eliminate pain 2/2 to disease process, and need to maintain ability to wean from vent,etc. [ has been using prn morphine 2mg about every 2-3hrs]. Npt a candidate yet for oral route due to ileus/gi issues. He has no additional questions. Advance Directives Health Care Surrogate Name and Number: primary WALE Dolan; secondary Dianna [place] Objective Vital Signs: Vital Signs 01/16/18 16:00 01/16/18 16:19 01/16/18 16:20 Temperature 98.5 F Pulse Rate 96 H Respiratory Rate 21 10 L 16 Blood Pressure 132/67 Pulse Oximetry 01/16/18 16:21 01/16/18 18:00 01/16/18 20:00 Temperature 99.5 F Pulse Rate 93 H 91 H 88 Respiratory Rate 10 L 21 Blood Pressure 116/62 Pulse Oximetry 100 01/16/18 21:35 01/16/18 21:37 01/16/18 22:00 Temperature Pulse Rate 86 85 Respiratory Rate 9 L 9 L Blood Pressure Pulse Oximetry 01/17/18 00:00 01/17/18 00:51 01/17/18 02:00 Temperature 99.2 F Pulse Rate 82 85 84 Respiratory Rate 14 10 L Blood Pressure 101/58 L Pulse Oximetry 01/17/18 04:00 01/17/18 04:09 01/17/18 06:00 Temperature 99.3 F Pulse Rate 89 88 92 H Respiratory Rate 11 L 10 L Blood Pressure 121/67 Pulse Oximetry 01/17/18 08:00 01/17/18 09:27 01/17/18 09:29 Temperature 99.4 F Pulse Rate 91 H 88 Respiratory Rate 12 10 L 11 L Blood Pressure 129/69 Pulse Oximetry 01/17/18 10:00 01/17/18 10:48 01/17/18 12:00 Temperature 99.1 F Pulse Rate 85 86 Respiratory Rate 14 15 Blood Pressure 103/58 L Pulse Oximetry Intake & Output 01/16/18 01/17/18 01/17/18 18:59 06:59 18:59 Intake Total 1300 / 1300 4210 / 4210 350 / 350 Output Total 1250 / 1250 1100 / 1100 Balance 50 / 50 3110 / 3110 350 / 350 Weight 65 kg Intake: IV 1100 / 1100 4210 / 4210 350 / 350 NS Inj 1,000 ML @ 84 mls/hr IV. 1000 / 1000 1000 / 1000 CONT .[id number] [facility] Rx#:[id number] Azactam Inj 2 GM In NS Inj 100 100 / 100 200 / 200 100 / 100 ML @ 200 mls/hr IV.SIG Q8H [facility] Rx#:[id number] Potassium Phosphate Inj 30 MMOL 260 / 260 In NS Inj 250 ML @ 43.333 mls/ hr IV.SIG ONCE ONE Rx#:[id number] Vancomycin Inj 1,000 MG In NS 500 / 500 250 / 250 Inj 250 ML @ 250 mls/hr IV.SIG Q8H [facility] Rx#:[id number] Water Bolus Amount 200 / 200 Output: Urine Amount (Catheter) 1050 / 1050 950 / 950 Indwelling Urethral Catheter 1050 / 1050 950 / 950 Gastric Drainage 200 / 200 150 / 150 Left Lower Quadrant Gastrostomy 200 / 200 150 / 150 Tube (PEG) Other: Date of Last Bowel Movement 01/16/18 01/16/18 01/16/18 # Bowel Movements 0 Physical Exam: CONSTITUTIONAL/GENERAL: mildly cachectic, alert, calm TUBES/LINES/DRAINS: port accessed rt chest, trach to vent, PEG to suction, PIV RUE SKIN: sallow complexion No wounds seen anteriorly other than face. skin warm/ dry HEAD: Atraumatic. Disfigured/mass right face and neck EYES: PERRL. Extraocular motions intact. No scleral icterus. No injection or drainage. Fundi not examined. ENT: Hearing grossly normal. Nose without bleeding or purulent drainage. large mass right cheek extending down to neck. NECK: mass right side. RESPIRATORY/CHEST: respirations unlabored, lungs sounds coarse. trach to vent, on CPAP GASTROINTESTINAL: Abdomen soft, tender, +distended, BS hypoactive. + PEG tube with small circumferential area erythema,PEG to suction NEUROLOGICAL:alert, calm, cooperative. Nods /gestures/writes in communication/ understanding. appears oriented/appropriate. Moves all 4 extremities. PSYCHIATRIC: calm, no anxiety evident Diagnostic Tests Laboratory: Laboratory Results - last 72 hr 01/14/18 01/15/18 01/15/18 17:52 03:20 03:20 WBC 9.7 RBC 2.71 L Hgb 8.1 L Hct 24.4 L MCV 89.8 MCH 29.7 MCHC 33.1 RDW 14.9 Plt Count 246 MPV 8.5 Neut % (Auto) 72.0 H Lymph % (Auto) 12.7 [place] % (Auto) 15.0 H Eos % (Auto) 0.1 Baso % (Auto) 0.2 Neut # (Auto) 7.0 Lymph # (Auto) 1.2 [place] # (Auto) 1.5 H Eos # (Auto) 0.0 Baso # (Auto) 0.0 WBC Differential . Differential Comment Auto diff final Sodium 138 Potassium 3.5 D Chloride 98 Carbon Dioxide 33.8 H Anion Gap 6 BUN 34 H Creatinine 0.27 L Estimated GFR Greater than 89 POC Glucose 146 H Random Glucose 132 H Lactic Acid Calcium 7.9 L Prot Corrected Calcium Phosphorus 3.2 D Magnesium 2.1 Total Bilirubin 0.4 AST 8 L ALT 7 L Alkaline Phosphatase 82 Total Protein 5.3 L Albumin 2.2 L Vancomycin Trough 5.9 01/15/18 01/15/18 01/15/18 03:20 11:13 17:18 WBC RBC Hgb Hct MCV MCH MCHC RDW Plt Count MPV Neut % (Auto) Lymph % (Auto) [place] % (Auto) Eos % (Auto) Baso % (Auto) Neut # (Auto) Lymph # (Auto) [place] # (Auto) Eos # (Auto) Baso # (Auto) WBC Differential Differential Comment Sodium Potassium Chloride Carbon Dioxide Anion Gap BUN Creatinine Estimated GFR POC Glucose 172 H 125 H Random Glucose Lactic Acid 0.6 Calcium Prot Corrected Calcium Phosphorus Magnesium Total Bilirubin AST ALT Alkaline Phosphatase Total Protein Albumin Vancomycin Trough 01/15/18 01/16/18 01/16/18 23:50 04:55 04:55 WBC 8.6 RBC 2.57 L Hgb 7.8 L Hct 23.3 L MCV 90.8 MCH 30.5 MCHC 33.5 RDW 15.3 Plt Count 230 MPV 7.9 Neut % (Auto) 72.2 H Lymph % (Auto) 14.9 [place] % (Auto) 12.3 H Eos % (Auto) 0.3 Baso % (Auto) 0.3 Neut # (Auto) 6.2 Lymph # (Auto) 1.3 [place] # (Auto) 1.1 H Eos # (Auto) 0.0 Baso # (Auto) 0.0 WBC Differential . Differential Comment Auto diff final Sodium 140 Potassium 3.5 Chloride 103 Carbon Dioxide 29.1 Anion Gap 8 BUN 18 Creatinine Less than 0.15 L Estimated GFR Greater than 89 POC Glucose 126 H Random Glucose 118 H Lactic Acid Calcium 8.0 L Prot Corrected Calcium Phosphorus 2.1 L D Magnesium 1.9 Total Bilirubin 0.4 AST 6 L ALT 7 L Alkaline Phosphatase 72 Total Protein 5.1 L Albumin 2.2 L Vancomycin Trough 01/16/18 01/16/18 01/17/18 04:55 14:40 00:10 WBC 10.4 RBC 2.72 L Hgb 8.3 L 8.1 L Hct 25.1 L 24.5 L MCV 90.0 MCH 29.6 MCHC 32.9 RDW 15.7 Plt Count 249 MPV 7.7 Neut % (Auto) 68.3 Lymph % (Auto) 17.1 [place] % (Auto) 13.9 H Eos % (Auto) 0.4 Baso % (Auto) 0.3 Neut # (Auto) 7.1 Lymph # (Auto) 1.8 [place] # (Auto) 1.5 H Eos # (Auto) 0.0 Baso # (Auto) 0.0 WBC Differential . Differential Comment Auto diff final Sodium Potassium Chloride Carbon Dioxide Anion Gap BUN Creatinine Estimated GFR POC Glucose Random Glucose Lactic Acid 0.4 Calcium Prot Corrected Calcium Phosphorus Magnesium Total Bilirubin AST ALT Alkaline Phosphatase Total Protein Albumin Vancomycin Trough 01/17/18 01/17/18 01/17/18 00:10 00:10 00:10 WBC RBC Hgb Hct MCV MCH MCHC RDW Plt Count MPV Neut % (Auto) Lymph % (Auto) [place] % (Auto) Eos % (Auto) Baso % (Auto) Neut # (Auto) Lymph # (Auto) [place] # (Auto) Eos # (Auto) Baso # (Auto) WBC Differential Differential Comment Sodium 142 Potassium 3.4 L Chloride 105 Carbon Dioxide 28.7 Anion Gap 8 BUN 10 Creatinine Less than 0.15 L Estimated GFR Greater than 89 POC Glucose 100 Random Glucose 95 Lactic Acid 0.4 Calcium 7.4 L* Prot Corrected Calcium 8.8 Phosphorus 2.7 Magnesium 1.6 Total Bilirubin AST ALT Alkaline Phosphatase Total Protein 4.7 L Albumin Vancomycin Trough 01/17/18 06:40 WBC RBC Hgb Hct MCV MCH MCHC RDW Plt Count MPV Neut % (Auto) Lymph % (Auto) [place] % (Auto) Eos % (Auto) Baso % (Auto) Neut # (Auto) Lymph # (Auto) [place] # (Auto) Eos # (Auto) Baso # (Auto) WBC Differential Differential Comment Sodium Potassium Chloride Carbon Dioxide Anion Gap BUN Creatinine Estimated GFR POC Glucose 104 Random Glucose Lactic Acid Calcium Prot Corrected Calcium Phosphorus Magnesium Total Bilirubin AST ALT Alkaline Phosphatase Total Protein Albumin Vancomycin Trough Result Diagrams: 01/17/18 00:10 01/17/18 00:10 Microbiology: Microbiology 01/12/18 20:40 Aerobic Blood Culture - Final Blood - Peripheral No growth in 5 days Anaerobic Blood Culture - Final No growth in 5 days 01/12/18 20:45 Aerobic Blood Culture - Final Blood - Peripheral No growth in 5 days Anaerobic Blood Culture - Final No growth in 5 days 01/12/18 08:45 Gram Stain - Final Wound - Abdominal Wound Culture - Final Escherichia coli Lucy albicans Enterococcus faecium 01/13/18 18:14 Gram Stain - Final Sputum - Endotracheal Sputum Culture - Final Escherichia coli 01/12/18 08:45 Urine Culture - Final Clean Catch Urine Escherichia coli Imaging: Impressions Chest X-Ray 01/16/18 06:00 CONCLUSION: 1. . Biapical emphysematous changes/scarring 2. Worsening left basilar consolidation/effusion. Abdomen X-Ray 01/17/18 00:00 CONCLUSION: 1. Nonobstructed bowel gas pattern. No pneumoperitoneum. 2. Gastrostomy tube projecting over the left upper abdominal quadrant Abdomen X-Ray 01/17/18 00:00 CONCLUSION: Mild interval improvement in the bowel gas pattern. 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 Per EMR has daughter Dianna and "friend" Jai. He is an [employer] . 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 IN the event he is incapacitated, He designated Jai and Dianna Dolan as HCS. Have communicated with Jai, he accepts his role. Ethical issues impacting care: none at this time Important Contacts: daughter Dianna Dolan [phone] "friend" Jai Dolan home [phone], cell [phone] Prognosis: This is a 62 yo male with COPD, DM, hx etoh & tobacco use, > 40 pack years diagnosed with head and neck cancer. He also has a lung mass which has yet to be biopsied. He has lost 30 lbs in the last 6 months and now requires tube feedings. Has tracheostomy for breathing b/c mass has encroached on his airway. He received 3 x tx palliative chemotherapy, refused radiation and subsequently developed emphysematous cystitis, ileus. The chemo treatmens transiently shrunk tumor. Oncology now holding chemo and radiation and will not resume until pt's medical status improved. Given his underlying COPD and lung mass, recent setbacks, his prognosis is guarded at best. He is at significant risk for additional complications, setbacks, and further decline. Code Status: Full Code Plan: - LEGAL DECISON MAKER - pt with trach and communication is difficult but he is alert, oriented, and appropriate, capacitated to make decisions. Should he become incapacitated, he designated Jai Dolan as primary and Dianna Dolan as secondary HCS. - CODE STATUS- FULL CODE - GOALS - pt goal aggressive, wishes to cont to try to improve enough to resume chemo and XRT. - SYMPTOMS - * pain - 2/2 tumor, lines, tracheostomy. has rated his pain 10/10, he endorses pain in his neck and abdomen and discomfort from trach. Indicates morphine helpful but does not last long enough. Has gabapentin 300mg q8h. PRn oxycodone 10mg q4h pain 3-5 but PO meds held d/t ileus. methadone started 01/11 and discontinued after 2 d d/t concern for altered mental status, lethargy. Now has IV morphine 2mg q2h PRN, effective for 1/5-2 hrs, using about every 2-3- 4 hrs. * dyspnea, secretions- 2/2 compromised airway, face/neck mass. Has tracheostomy , now on vent after episode vomiting, aspiration 01/13. Denies feeling SOB , secretions have been persistent. This will persist secondary to disease process. Continues to require frequent suctioning, this is keeping him from being transferred to floor. Pt wants to try chemo and radiation again but per oncology this is held until he shows improvement with other medical issues. On scheduled symbicort, sheduled duonebs prn duonebs, levsin. * anxiety - multifactorial. Patient has had flat affect, ambivalent, irritable. could be component of depression/anxiety. Earlier this week became extremely agitated en route to radiation therapy and essentially refused nursing was unable to transport. Oncology d/c xanax and added lorazepam. Although won't help in short term, could consider SSRI for longer term tx if pt amenable * nausea - multifactorial, s/p 3 x palliative chemotherapy tx, last one 01/06; now with ileus. prev. complained of nausea with roxanol admin. Denies gi c/o today. Has promethazine 25mg IM PRN breakthrough nausea, scopolamine patch, reglan 10mg q6h PRN, both PO and IV zofran PRN. Does not appear he has been requesting these. - discussed with RN - Palliative care will continue to follow during hospital course as condition evolves, to assist patient/decision-maker with understanding of medical conditions, weighing benefits/burdens of treatment options, for clarification of goals of treatment. Additionally will assist with any symptoms of palliative concern Time Spent Total Floor Time (mins): 20 (chart review, PE, d/w pt,. d/w nurse ) Attestation Attestation: To help prompt me to consider important information that might be impacting today's encounter and assessment, information from prior notes written by myself or my colleagues may have been "brought forward" into today's note. My signature on this note, however, is an attestation that I personally performed the exam, history, and/or decision-making noted today, and, unless otherwise indicated, the interactions with patient, family, and staff as well as the review of records all occurred today. I also attest that the listed assessment and stated plan reflect my best clinical judgment today based on the combination of historical information, prior notes, and today's exam/ interactions. When time spent is documented, it refers only to time spent today by the signer, or if indicated, combined time spent today by collaborating physician/nurse practitioner.
--- NOTE | 2018-01-17 18:03 | P.PNPL ---
Subjective Interval history: 62 YO WM wit H&N CA,RF, Trach Put Back on vent Had hypotension, receeved Fluid bolus, normotensive now Tolerates TF Awake, follows commands On PSV, Fi02 50% Off Pressors Physical Exam Vital signs: Vital Signs 01/16/18 20:00 01/16/18 21:35 01/16/18 21:37 Temperature 99.5 F Pulse Rate 88 86 Respiratory Rate 21 9 L 9 L Blood Pressure 116/62 Pulse Oximetry 100 01/16/18 22:00 01/17/18 00:00 01/17/18 00:51 Temperature 99.2 F Pulse Rate 85 82 85 Respiratory Rate 14 10 L Blood Pressure 101/58 L Pulse Oximetry 01/17/18 02:00 01/17/18 04:00 01/17/18 04:09 Temperature 99.3 F Pulse Rate 84 89 88 Respiratory Rate 11 L 10 L Blood Pressure 121/67 Pulse Oximetry 01/17/18 06:00 01/17/18 08:00 01/17/18 09:27 Temperature 99.4 F Pulse Rate 92 H 91 H Respiratory Rate 12 10 L Blood Pressure 129/69 Pulse Oximetry 01/17/18 09:29 01/17/18 10:00 01/17/18 10:48 Temperature Pulse Rate 88 85 Respiratory Rate 11 L 14 Blood Pressure Pulse Oximetry 01/17/18 12:00 01/17/18 12:58 01/17/18 14:00 Temperature 99.1 F Pulse Rate 86 95 H Respiratory Rate 15 12 Blood Pressure 103/58 L Pulse Oximetry 01/17/18 16:00 01/17/18 17:29 01/17/18 17:31 Temperature 99.3 F Pulse Rate 94 H 94 H Respiratory Rate 10 L 10 L 10 L Blood Pressure 111/62 Pulse Oximetry 45 L Intake & Output 01/16/18 01/17/18 01/17/18 18:59 06:59 18:59 Intake Total 1300 / 1300 4210 / 4210 1350 / 1350 Output Total 1250 / 1250 1100 / 1100 Balance 50 / 50 3110 / 3110 1350 / 1350 Weight 65 kg Intake: IV 1100 / 1100 4210 / 4210 1350 / 1350 NS Inj 1,000 ML @ 84 mls/hr IV. 1000 / 1000 1000 / 1000 1000 / 1000 CONT .[id number] [facility] Rx#:[id number] Azactam Inj 2 GM In NS Inj 100 100 / 100 200 / 200 100 / 100 ML @ 200 mls/hr IV.SIG Q8H [facility] Rx#:[id number] Potassium Phosphate Inj 30 MMOL 260 / 260 In NS Inj 250 ML @ 43.333 mls/ hr IV.SIG ONCE ONE Rx#:[id number] Vancomycin Inj 1,000 MG In NS 500 / 500 250 / 250 Inj 250 ML @ 250 mls/hr IV.SIG Q8H [facility] Rx#:[id number] Water Bolus Amount 200 / 200 Output: Urine Amount (Catheter) 1050 / 1050 950 / 950 Indwelling Urethral Catheter 1050 / 1050 950 / 950 Gastric Drainage 200 / 200 150 / 150 Left Lower Quadrant Gastrostomy 200 / 200 150 / 150 Tube (PEG) Other: Date of Last Bowel Movement 01/16/18 01/16/18 01/16/18 # Bowel Movements 0 GENERAL: Frail elderly WM,On Vent SKIN: Warm and dry. HEAD: Normocephalic. EYES: No scleral icterus. No injection or drainage. NECK: Supple, trachea midline. No JVD or lymphadenopathy. Has Neck mass, trach CARDIOVASCULAR: Regular rate and rhythm without murmurs, gallops, or rubs. RESPIRATORY: Breath sounds equal bilaterally. No accessory muscle use. GASTROINTESTINAL: Abdomen soft, non-tender, nondistended. has PEG MUSCULOSKELETAL: No cyanosis, or edema. BACK: Nontender without obvious deformity. No CVA tenderness. - Urinary Catheter Management Indwelling Urethral Catheter Cath placed during this visit: yes, but has since been removed by the nurse Reason for continuing: Acute urinary retention Insertion date: 01/14/18 Insertion time: 00:00 Removal date: 01/02/18 Removal time: 07:00 Condom Cath placed during this visit: yes Reason for continuing: Acute urinary retention Insertion date: 01/14/18 Insertion time: 18:30 Assessment and Plan - Plan Resp failure, on Vent S/P Emergent trach Neck Mass H&N Ca COPD Aspiration PLAN: Vent support,PSV, Fi02 50% Wean Fi02 cont Abx Aerosol nebs Tube feeding
[2018-01-18] MEDS: Artificial Tears Opth Drops 15 ML Bottle EACH EYE SCH ×3 (01:18→17:29)
[2018-01-18] MEDS: Aztreonam Inj 2 GM in Sodium Chloride 0.9% Inj 100 ML IV.SIG SCH ×3 (01:18→17:29)
[2018-01-18] MEDS: Sod Chloride 0.9% Inj 1,000 ML IV.CONT SCH ×3 (02:44→20:10)
[2018-01-18] MEDS: Morphine Inj 4 MG/ML Vial IV.PUSH PRN ×7 (02:44→19:26)
[2018-01-18] MEDS: Temazepam 15 MG Capsule NG/OG PRN ×2 (03:56→22:45)
[2018-01-18 05:22] LABS: Baso # (Auto) 0.1 th/mm3 (0.0-0.2); Baso % (Auto) 0.5 % (0.0-2.0); Eos # (Auto) 0.1 th/mm3 (0.0-0.4); Eos % (Auto) 0.6 % (0.0-4.0); Hematocrit 28.2 % (39.0-51.0); Hemoglobin 9.1 gm/dL (13.0-17.0); Lymph # (Auto) 1.9 th/mm3 (1.0-4.8); Mean Corpuscular HGB Conc 32.4 % (32.0-36.0); Mean Corpuscular Hemoglobin 29.3 pg (27.0-34.0); Mean Corpuscular Volume 90.6 fL (80.0-100.0); Mono # (Auto) 1.7 th/mm3 (0.0-0.9); Mono % (Auto) 12.7 % (0.0-8.0); Neut # (Auto) 9.8 th/mm3 (1.8-7.7); Neut % (Auto) 72.2 % (16.0-70.0); Platelet Count 260 th/mm3 (150-450); Red Blood Count 3.11 mil/mm3 (4.50-5.90); Red Cell Distribution Width 15.6 % (11.6-17.2); White Blood Count 13.6 th/mm3 (4.0-11.0)
[2018-01-18 05:41] LABS: Anion Gap 13 meq/L (5-15); Blood Urea Nitrogen 7 mg/dL (7-18); Calcium 7.4 mg/dL (8.5-10.1); Carbon Dioxide 24.4 meq/L (21.0-32.0); Chloride 106 meq/L (98-107); Glomerular Filtration Rate Greater Than 89 mL/min (>89); Glucose,Random 91 mg/dL (74-106); Magnesium 1.5 mg/dL (1.5-2.5); Phosphorus 1.7 mg/dL (2.5-4.9); Potassium 3.3 meq/L (3.5-5.1); Sodium 143 meq/L (136-145)
[2018-01-18] MEDS: Vancomycin Inj 1,000 MG in Sodium Chlor 0.9% Inj 250 ML IV.SIG SCH (05:46)
[2018-01-18] MEDS: Gabapentin Liq 250 MG/5 ML UDC PO SCH ×3 (05:47→21:53)
[2018-01-18] MEDS: metroNIDAZOLE 500 MG Tablet PO SCH (05:47)
[2018-01-18 05:53] LABS: Total Protein 4.7 g/dL (6.4-8.2)
[2018-01-18] MEDS: Insulin NovoLOG Aspart Correctional Sugar Inj SQ SCH ×3 (05:56→17:29)
[2018-01-18] MEDS: Sennosides Liq 8.8 MG/5 ML UDC G-TUBE SCH ×2 (08:04→20:04)
[2018-01-18] MEDS: Budesonide-Formoterol 160/4.5 MCG 6 GM Inhaler INH SCH ×2 (08:04→20:02)
[2018-01-18] MEDS: Docusate Sodium Liq 100 MG/10 ML UDC G-TUBE SCH ×2 (08:05→20:03)
[2018-01-18] MEDS: Polyethylene Glycol 3350 17 GM Packet G-TUBE SCH ×2 (08:05→20:04)
[2018-01-18] MEDS: Chlorhexidine Gluconate 0.12% Liq 15 ML UDC SWISH-SPIT SCH ×2 (08:05→21:49)
[2018-01-18 09:40] LABS: Eosinophils 1 % (0-4); Lymphocytes 18 % (9-44); Monocytes 6 % (0-8); Myelocytes 1 % (0-0)
[2018-01-18 09:41] LABS: Platelet Estimate Normal (Normal); Platelet Morphology Normal (Normal); Toxic Granulation 2+
--- NOTE | 2018-01-18 10:05 | P.PNCC ---
Subjective Subjective Remarks/Hospital Course: Remarks/Hospital Course This is a 62-year-old male with a past medical history of squamous cell carcinoma of the head and neck, lung mass COPD, hypertension diabetes with a history of tobacco abuse, that presented on 12/18. The patient regularly is seen at the [facility] however he was not afforded treatment at this time . The patient was admitted to the medical floor, hematology oncology had been consulted plans were for chemotherapy to be initiated today the patient underwent PEG placement yesterday. Late this afternoon the patient was noted to be hypoxemic with significant airway edema , O2 sat in the 80's, Pao2 59 on 100% nonrebreather ,in the setting of a large tumor mass .A Halicat was called , and the patient was emergently transferred to [facility]. Upon transfer the patient was immediately out evaluated and noted to be in significant respiratory distress, oral airway significantly edematous tongue protruding out of mouth Mallampati unobtainable upon evaluation. The patient appeared to be alert and could not yes and no to questions unable to speak. Quick assessment of CT scans that were previously done of the neck showed a large tumor mass crossing midline. Dr. Cabello , Anesthesiologist in to evaluate patient at bedside discussed case with him. Emergency airway equipment placed at bedside trauma surgery was notified I spoke with Dr. Rangel, patient emergently scheduled for tracheostomy to secure airway. A left radial A-line was placed ABG on 100% nonrebreather was obtained prior to going PaO2 had risen to 60 on nonrebreather mask. 12/21: No acute events overnight. The patient underwent emergency tracheostomy to secure the airway last evening. Norepinephrine and fentanyl infusions have been discontinued this morning patient has been transitioned onto CPAP trials and denies any discomfort. Patient is communicating with board and marker. PEG tube in situ tube feedings Glucerna currently at 30 cc/an hour continue to be advanced to goal. FiO2 has been decreased to .45% 12/22: No acute events overnight. The patient was maintained on CPAP trials throughout the night and this afternoon plan trach collar trials this afternoon PT OT has been initiated. Patient tolerating tube feeds no residuals. 12/23: Patient progressing well currently on trach collar trials greater than 24 hours. Patient tolerating tube feeds diet. Chemotherapy initiated yesterday. Patient denies pain. 12/24: Late entry note patient seen at 11:40 AM. Overnight the patient became agitated pulling off lines and tubes. Patient had previous stated that he has an anxiety disorder ,Xanax was ordered however not given. Upon my evaluation this a.m. O2 saturation noted to be low patient placed on FiO2 of 80% stat ABG was performed to reveal hypoxemia the patient was placed back on CPAP stat chest x-ray was performed which showed worsening airspace disease in the bases. 12/25: Patient noted with episodes of nausea, tube feeds held. Zofran given for nausea. The patient continues to have increased FiO2 requirements the patient is being placed on trach collar during the day CPAP at night. 12/26: Vitals not documented. Currently on CPAP 10/5 and 40%. No bowel movements documented. Not on a bowel regimen. 12/27: Remains on mechanical ventilation via tracheostomy. On CPAP trials. 12/28: no changes. still with cpap trials. 12/29: tolerating t-piece trials. rested on cpap overnight. complaints of continued pain around tumor site, as well as significant secretions. 12/30: clinically doing well. denies complaints. asked that speech re-evaluate him because he would like to start eating real food again. plan for XRT to start today. 12/31: On mechanical ventilation via trach. Tolerating T piece trials 01/01: Remains on mechanical ventilation via trach. 01/02: On T-piece. Awaiting radiation today 01/13: Reconsult due to hypotension/aspiration with worsening oxygenation. Patient replaced back on the ventilator via tracheostomy with cuff inflated. Of note, patient has been refusing radiation therapy and his chemotherapy has been held for that reason by oncology. Patient with urinary tract infection/ becoming septic with possible infected PEG site as well. 01/14: Patient plan for CT abdomen/pelvis today. White blood cell count improved. Remains on ventilator. Greater than 1 L from G-tube to drainage overnight 01/15: Afebrile. Noted CT abdomen/pelvis revealed emphysematous cystitis. Discussed with urology. Tavarez has been placed. Will evaluate today. Currently on low-dose norepinephrine. Continues to have ileus. 01/16: Patient requesting additional pain medication. G2 -200 cc. Recheck KUB today. White cell count is normalized. Off vasopressors. 01/17: Resting complaint bed in no acute distress. Complaining of pain in neck. Off all vasopressors. We will restart tube feeds today at 20 cc an hour goal. Subjective: 01/18: T-max 99.7. -350 per G-tube overnight. No bowel movement yesterday. Tumor is right neck appears to be enlarging. Very painful. Will restart tube feeds at 20 cc an hour today. Oxycodone by tube for pain management. . Objective Vital Signs / I&O: Vital Signs 01/17/18 10:48 01/17/18 12:00 01/17/18 12:58 Temperature 99.1 F Pulse Rate 86 Respiratory Rate 14 15 12 Blood Pressure 103/58 L Pulse Oximetry 01/17/18 14:00 01/17/18 16:00 01/17/18 16:55 Temperature 99.3 F Pulse Rate 95 H 94 H Respiratory Rate 10 L 12 Blood Pressure 111/62 Pulse Oximetry 01/17/18 17:29 01/17/18 17:31 01/17/18 18:00 Temperature Pulse Rate 94 H 93 H Respiratory Rate 10 L 10 L Blood Pressure Pulse Oximetry 45 L 01/17/18 20:00 01/17/18 21:47 01/17/18 22:00 Temperature 99.6 F Pulse Rate 86 87 89 Respiratory Rate 12 11 L Blood Pressure 110/66 Pulse Oximetry 98 92 L 01/17/18 23:10 01/17/18 23:27 01/18/18 00:00 Temperature Pulse Rate 88 Respiratory Rate 11 L 12 12 Blood Pressure 111/65 Pulse Oximetry 98 01/18/18 00:18 01/18/18 02:00 01/18/18 02:56 Temperature Pulse Rate 87 88 Respiratory Rate 9 L 15 Blood Pressure Pulse Oximetry 01/18/18 04:00 01/18/18 04:17 01/18/18 05:46 Temperature Pulse Rate 93 H 91 H Respiratory Rate 12 9 L 11 L Blood Pressure 124/69 Pulse Oximetry 98 01/18/18 06:00 01/18/18 07:00 01/18/18 08:00 Temperature 99.7 F H Pulse Rate 98 H 93 H 102 H Respiratory Rate 11 L 27 H Blood Pressure Pulse Oximetry 98 01/18/18 08:01 Temperature Pulse Rate 106 H Respiratory Rate 23 Blood Pressure 140/79 Pulse Oximetry Intake & Output 01/17/18 01/18/18 01/18/18 18:59 06:59 18:59 Intake Total 1350 / 1350 1950 / 1950 Output Total 1700 / 1700 1200 / 1200 Balance -350 / -350 750 / 750 Weight 67 kg Intake: IV 1350 / 1350 1950 / 1950 NS Inj 1,000 ML @ 84 mls/hr IV. 1000 / 1000 1000 / 1000 CONT .[id number] BRENDEN Rx#:[id number] Azactam Inj 2 GM In NS Inj 100 100 / 100 200 / 200 ML @ 200 mls/hr IV.SIG Q8H BRENDEN Rx#:[id number] Vancomycin Inj 1,000 MG In NS 250 / 250 750 / 750 Inj 250 ML @ 250 mls/hr IV.SIG Q8H BRENDEN Rx#:[id number] Oral 0 / 0 Tube Feeding 0 / 0 Output: Urine Amount (Catheter) 1200 / 1200 1200 / 1200 Indwelling Urethral Catheter 1200 / 1200 1200 / 1200 Gastric Drainage 500 / 500 0 / 0 Left Lower Quadrant Gastrostomy 500 / 500 0 / 0 Tube (PEG) Other: Date of Last Bowel Movement 01/16/18 01/16/18 01/16/18 # Bowel Movements 0 Result Diagrams: 01/18/18 04:22 01/18/18 04:22 Other Results: Microbiology 01/12/18 20:40 Blood - Peripheral Aerobic Blood Culture - Final No growth in 5 days 01/12/18 20:40 Blood - Peripheral Anaerobic Blood Culture - Final No growth in 5 days 01/12/18 20:45 Blood - Peripheral Aerobic Blood Culture - Final No growth in 5 days 01/12/18 20:45 Blood - Peripheral Anaerobic Blood Culture - Final No growth in 5 days 01/12/18 08:45 Wound - Abdominal Gram Stain - Final 01/12/18 08:45 Wound - Abdominal Wound Culture - Final Escherichia coli Lucy albicans Enterococcus faecium 01/13/18 18:14 Sputum - Endotracheal Gram Stain - Final 01/13/18 18:14 Sputum - Endotracheal Sputum Culture - Final Escherichia coli 01/12/18 08:45 Clean Catch Urine Urine Culture - Final Escherichia coli 12/27/17 10:37 Sputum - Endotracheal Gram Stain - Final 12/27/17 10:37 Sputum - Endotracheal Sputum Culture - Final Heavy growth normal respiratory kali Imaging: Chest X-Ray 12/25/17 06:00 CONCLUSION: Support apparatus unchanged. Stable basilar airspace disease and trace pleural fluid. Chest X-Ray 12/27/17 00:01 CONCLUSION: Persistent nonconsolidative airspace infiltrates in the left lower lung. Abdomen X-Ray 01/13/18 00:00 CONCLUSION: Nonspecific abdominal bowel gas pattern with one loop of small bowel measuring up to 5.4 cm. Recommend serial films. Gastrostomy in place. Chest X-Ray 01/13/18 00:00 CONCLUSION: Interval resolution of left lower lung consolidation with residual bilateral chronic interstitial prominence. Abdomen/Pelvis CT 01/14/18 00:00 CONCLUSION: 1. Abnormal urinary bladder with multiple small gas collections along the bladder wall with apparent mild thickening or adjacent fluid. There is small amount of intraluminal air. 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 In addition there are multiple small enhancing nodule lower areas along the posterior aspect of the bladder which could indicate tumor. 2. 2 new small right pulmonary nodules. This is of concern for metastatic disease. 3. Nonspecific bowel gas pattern most characteristic of an ileus. There is a small to moderate amount of fluid in the chest or pelvis. 4. Multiple bilateral renal calculi. There is mild prominence of the collecting systems and ureters which likely is secondary to bladder abnormality. 5. Cholelithiasis. 6. Chronic pancreatitis. The pancreatic duct now appears mildly dilated. These findings were called to Dr. Humphrey at 1755 hours. Abdomen X-Ray 01/14/18 00:01 CONCLUSION: Nonspecific bowel gas pattern again seen with gas-filled large and small bowel. Slight decrease in distention of the bowel. Chest X-Ray 01/14/18 06:00 CONCLUSION: Slight increase in bilateral right greater than left lower lung zone pulmonary opacity. Abdomen X-Ray 01/15/18 00:00 CONCLUSION: Unremarkable bowel gas pattern with no evidence of obstruction. Abdomen X-Ray 01/15/18 00:01 CONCLUSION: Nonspecific bowel gas pattern. No significant interval change. Chest X-Ray 01/16/18 06:00 CONCLUSION: 1. . Biapical emphysematous changes/scarring 2. Worsening left basilar consolidation/effusion. Abdomen X-Ray 01/17/18 00:00 CONCLUSION: 1. Nonobstructed bowel gas pattern. No pneumoperitoneum. 2. Gastrostomy tube projecting over the left upper abdominal quadrant Abdomen X-Ray 01/17/18 00:00 CONCLUSION: Mild interval improvement in the bowel gas pattern. Objective Remarks: GENERAL: 62-year-old cachectic male in no apparent distress. Communicating in writing. SKIN: Warm and dry. No rash HEAD: Atraumatic. Normocephalic. EYES: Pupils equal and round. No scleral icterus. No injection or drainage. ENT: No nasal bleeding or discharge. Mucous membranes pink and moist. Tongue less edematous protruding from mouth unable to open mouth lips slightly less edematous. Inability to view oral aperture or oral pharynx NECK: Trachea midline. No JVD. Noted right sided neck mass which appears to have enlarged over the past 7 days. 8.0 Shiley tracheostomy in situ CARDIOVASCULAR: Normal rate, regular rhythm. S1,. S2. No S4. Without murmur. No rubs RESPIRATORY: Currently on ventilator via tracheostomy. No accessory muscle use. Few coarse rhonchorous breath sounds appreciated. Breath sounds equal bilaterally. GASTROINTESTINAL: Abdomen soft, non-tender, slightly distended with hypoactive bowel sounds appreciated. No high-pitched sounds.. No guarding. PEG tube insitu with some exudate greenish currently to gravity MUSCULOSKELETAL: Extremities without clubbing, cyanosis, or edema. No obvious deformities. NEUROLOGICAL: Arousable on the ventilator. Follows commands in all 4 extremities. Patient nodding head to yes and no questions, writes answers on tablet paper questions. Assessment and Plan - Assessment and Plan Plan: Neuro/Psych: Acute Pain associated with head/neck cancer History of EtOH abuse Acetaminophen 650 mg every 6 hours as needed for pain and/or temperature Alprazolam 0.5 mg every 8 hours as needed for agitation Temazepam 15 mg at night as needed insomnia Continue gabapentin 300 mg every 8 hours Continue tizanidine 4 mg every 12 hours On Roxanol 4 milligram every 6 scheduled currently -hold secondary to ileus noted discontinued methadone 01/12 Oxycodone 10 mg every 4 hours as needed pain Continue morphine sulfate 2 mg IV every 2 hours as needed for breakthrough pain Respiratory: Acute on chronic hypoxic respiratory failure COPD exacerbation Lung mass/2 new right lower lobe pulmonary nodules Head and neck cancer -squamous cell carcinoma Chronic airway compromise Class IV Mallampati rating 12/20 S/P Emergent tracheostomy to secure airway, 8.0 Shiley 12/21 trach collar trials on .40% initiated. Patient placed back on CPAP 12/24 secondary to hypoxemia and worsening chest x-ray PRVC 16/500/1/5/50 As tolerated PSV trial Continue budesonide/formoterol 160/4.5 2 puffs twice daily Albuterol/ipratropium aerosols every 4 hours with albuterol aerosols every 2 hours as indicated for dyspnea Ventilator bundle chest x-ray in a.m. 01/19 Cardiovascular: History of hypertension History of hyperlipidemia Severe sepsis Continue with normal saline at 84 cc an hour. 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 Possible posterior tumor. Monitor urine output with accurate I's and O's. Discussed with urology/Dr. Barnett. Maintain Tavarez catheter per urology's recommendations. Currently is in place. FEN/GI: PEG placement 12/19 Nausea and vomiting Possible infection PEG tube History of chronic pancreatitis Cholelithiasis Hypokalemia Hypophosphatemia Hypoalbuminemia History of gastroesophageal reflux disease Ileus Glucerna 1.5 with previous 70 cc/hr. on hold due to ileus likely narcotic induced. Restart today at 20 cc goal. Lansoprazole 30 mg daily for GI prophylaxis Bowel regimen with docusate sodium 100 mg twice daily, senna 8.8 mg twice daily , polythene glycol 17 g twice daily and lactulose 30 cc twice daily and basic caudal 10 mg VT daily Currently in free water 100 cc every 8 hours to maintain PEG tube patency KUB revealed small/large bowel gas exchange. NG tube currently to suction. Recheck in a.m. 01/19 CT abdomen/pelvis revealed moderate's small bowel dilatation. Cholelithiasis. Chronic pancreatitis. Bilateral nephrolithiasis with mildly dilated renal calyces and ureter. See above Metoclopramide 10 mg every 6 hours K-Phos 30 mmol IV times now. Recheck potassium this afternoon. Heme/ID: Head and neck cancer -squamous cell carcinoma of the right tonsil E. coli UTI Normocytic anemia Leukocytosis Hematology oncology following-patient was tentatively scheduled for chemotherapy to initiate 12/20 Received carbo/Taxol. 3 rounds. Currently on hold secondary to patient refusing radiation therapy. Patient was initiated on levofloxacin and vancomycin on 12/20. now s/p full course of abx. Will treat with aztreonam, linezolid day #5. Discontinued vancomycin and metronidazole day #4. E. coli is resistant to levofloxacin 01/12 -wound -E. coli, C. albicans, Enterococcus faecalis 01/12 -urine -E. coli 01/13 -sputum -E. coli Blood culture 01/12-NGTD Endocrine: Diabetes mellitus Glucose monitoring per ICU protocol beam dose every 6 hours aspart Currently on insulin detemir 6 units at night. Holding while n.p.o. -- SSI Prophylaxis: GI Prophylaxis Lansoprazole DVT Prophylaxis -- SCDs Enoxaparin Lines: Left radial A-line dc'd 12/22, right chest [id number] continue Level 3 follow-up
--- NOTE | 2018-01-18 12:19 | P.PNPAL ---
Reason for Visit Reason for visit: a. To assist with evaluation and management of symptoms including: pain, dyspnea, anxiety, nausea b. To assist medical decision maker(s) with: better understanding of current medical conditions; weighing benefits/burdens of medical treatment options; making medical treatment decisions. Subjective Subjective/Interval History: Pt remain in ICU on mech vent.Still w some G tube output, 350 ml, tube feed low rate has been started. WBC up slightly 13.6. Continued on aztreonam, Zyvox. K + 3.3 repletion per attending. H&H stable. Has been restarted on oxycodone every 4 hours via PEG prn pain, continues to have 2 mg morphine IV available. Yesterday required 2 mg IV morphine dose about every 2-3 hours. Patient seen today in room no visitors present. He is initially sleeping though arouses to my exam. He has paper and pen on his lap for writing. He communicates primarily via nodding and gesturing. He indicates he is feeling okay shrugs. Indicates he continues to have pain to his right neck. Denies shortness of breath. Denies nausea or vomiting or GI complaints. Primary complaint is throat pain. Review with him multiple infections being treated, and concerned that mass in right neck increasing in size. He indicates he wants to take chemo. Review with him that medical team is concerned he will continue to have complications and that it is not clear he will get well enough to take any more treatment for the cancer. He shrugs. Offered to call his healthcare surrogate and friend Jai. He indicates that will be coming in tomorrow, and to wait until tomorrow to talk to him. He declines to write anything further indicates he has no additional questions. Wishes to continue treatment . Advance Directives Health Care Surrogate Name and Number: primary [facility] Jai Dolan; secondary Dianna Dolan Objective Vital Signs: Vital Signs 01/17/18 12:58 01/17/18 14:00 01/17/18 16:00 Temperature 99.3 F Pulse Rate 95 H 94 H Respiratory Rate 12 10 L Blood Pressure 111/62 Pulse Oximetry 01/17/18 16:55 01/17/18 17:29 01/17/18 17:31 Temperature Pulse Rate 94 H Respiratory Rate 12 10 L 10 L Blood Pressure Pulse Oximetry 45 L 01/17/18 18:00 01/17/18 20:00 01/17/18 21:47 Temperature 99.6 F Pulse Rate 93 H 86 87 Respiratory Rate 12 11 L Blood Pressure 110/66 Pulse Oximetry 98 92 L 01/17/18 22:00 01/17/18 23:10 01/17/18 23:27 Temperature Pulse Rate 89 Respiratory Rate 11 L 12 Blood Pressure Pulse Oximetry 01/18/18 00:00 01/18/18 00:18 01/18/18 02:00 Temperature Pulse Rate 88 87 88 Respiratory Rate 12 9 L Blood Pressure 111/65 Pulse Oximetry 98 01/18/18 02:56 01/18/18 04:00 01/18/18 04:17 Temperature Pulse Rate 93 H 91 H Respiratory Rate 15 12 9 L Blood Pressure 124/69 Pulse Oximetry 98 01/18/18 05:46 01/18/18 06:00 01/18/18 07:00 Temperature Pulse Rate 98 H 93 H Respiratory Rate 11 L 11 L Blood Pressure Pulse Oximetry 01/18/18 08:00 01/18/18 08:01 Temperature 99.7 F H Pulse Rate 102 H 106 H Respiratory Rate 27 H 23 Blood Pressure 140/79 Pulse Oximetry 98 Intake & Output 01/17/18 01/18/18 01/18/18 18:59 06:59 18:59 Intake Total 1350 / 1350 1950 / 1950 Output Total 1700 / 1700 1200 / 1200 Balance -350 / -350 750 / 750 Weight 67 kg Intake: IV 1350 / 1350 1950 / 1950 NS Inj 1,000 ML @ 84 mls/hr IV. 1000 / 1000 1000 / 1000 CONT .[id number] BRENDEN Rx#:[id number] Azactam Inj 2 GM In NS Inj 100 100 / 100 200 / 200 ML @ 200 mls/hr IV.SIG Q8H BRENDEN Rx#:[id number] Vancomycin Inj 1,000 MG In NS 250 / 250 750 / 750 Inj 250 ML @ 250 mls/hr IV.SIG Q8H BRENDEN Rx#:[id number] Oral 0 / 0 Tube Feeding 0 / 0 Output: Urine Amount (Catheter) 1200 / 1200 1200 / 1200 Indwelling Urethral Catheter 1200 / 1200 1200 / 1200 Gastric Drainage 500 / 500 0 / 0 Left Lower Quadrant Gastrostomy 500 / 500 0 / 0 Tube (PEG) Other: Date of Last Bowel Movement 0701/16/18 01/16/18 # Bowel Movements 0 Physical Exam: CONSTITUTIONAL/GENERAL: mildly cachectic, alert, calm TUBES/LINES/DRAINS: port accessed rt chest, trach to vent, PEG to suction, PIV RUE SKIN: sallow complexion No wounds seen anteriorly other than face. skin warm/ dry HEAD: Atraumatic. Disfigured/mass right face and neck EYES: PERRL. Extraocular motions intact. No scleral icterus. No injection or drainage. Fundi not examined. ENT: Hearing grossly normal. Nose without bleeding or purulent drainage. large mass right cheek extending down to neck. Appears to be increasing in size as compared to prior visits. NECK: mass right side. RESPIRATORY/CHEST: respirations unlabored, lungs sounds coarse. trach to vent, on CPAP GASTROINTESTINAL: Abdomen soft, nontender, non distended, BS hypoactive. + PEG tube tube feed infusing. NEUROLOGICAL:alert, calm, cooperative. Nods /gestures/writes in communication/ understanding. appears oriented/appropriate. Moves all 4 extremities. PSYCHIATRIC: calm, no anxiety evident Diagnostic Tests Laboratory: Laboratory Results - last 72 hr 01/15/18 01/15/18 01/16/18 17:18 23:50 04:55 WBC 8.6 RBC 2.57 L Hgb 7.8 L Hct 23.3 L MCV 90.8 MCH 30.5 MCHC 33.5 RDW 15.3 Plt Count 230 MPV 7.9 Prelim Diff (Auto) Neut % (Auto) 72.2 H Lymph % (Auto) 14.9 [place] % (Auto) 12.3 H Eos % (Auto) 0.3 Baso % (Auto) 0.3 Neut # (Auto) 6.2 Lymph # (Auto) 1.3 [place] # (Auto) 1.1 H Eos # (Auto) 0.0 Baso # (Auto) 0.0 WBC Differential . Seg Neuts % (Manual) Band Neuts % (Manual) Lymphocytes % (Manual) Monocytes % (Manual) Eosinophils % (Manual) Myelocytes % (Man) Abs Neuts (Manual) Differential Comment Auto diff final Toxic Granulation Platelet Estimate Platelet Morphology Sodium Potassium Chloride Carbon Dioxide Anion Gap BUN Creatinine Estimated GFR POC Glucose 125 H 126 H Random Glucose Lactic Acid Calcium Prot Corrected Calcium Phosphorus Magnesium Total Bilirubin AST ALT Alkaline Phosphatase Total Protein Albumin Vancomycin Trough 01/16/18 01/16/18 01/16/18 04:55 04:55 14:40 WBC RBC Hgb 8.3 L Hct 25.1 L MCV MCH MCHC RDW Plt Count MPV Prelim Diff (Auto) Neut % (Auto) Lymph % (Auto) [place] % (Auto) Eos % (Auto) Baso % (Auto) Neut # (Auto) Lymph # (Auto) [place] # (Auto) Eos # (Auto) Baso # (Auto) WBC Differential Seg Neuts % (Manual) Band Neuts % (Manual) Lymphocytes % (Manual) Monocytes % (Manual) Eosinophils % (Manual) Myelocytes % (Man) Abs Neuts (Manual) Differential Comment Toxic Granulation Platelet Estimate Platelet Morphology Sodium 140 Potassium 3.5 Chloride 103 Carbon Dioxide 29.1 Anion Gap 8 BUN 18 Creatinine Less than 0.15 L Estimated GFR Greater than 89 POC Glucose Random Glucose 118 H Lactic Acid 0.4 Calcium 8.0 L Prot Corrected Calcium Phosphorus 2.1 L D Magnesium 1.9 Total Bilirubin 0.4 AST 6 L ALT 7 L Alkaline Phosphatase 72 Total Protein 5.1 L Albumin 2.2 L Vancomycin Trough 01/17/18 01/17/18 01/17/18 00:10 00:10 00:10 WBC 10.4 RBC 2.72 L Hgb 8.1 L Hct 24.5 L MCV 90.0 MCH 29.6 MCHC 32.9 RDW 15.7 Plt Count 249 MPV 7.7 Prelim Diff (Auto) Neut % (Auto) 68.3 Lymph % (Auto) 17.1 [place] % (Auto) 13.9 H Eos % (Auto) 0.4 Baso % (Auto) 0.3 Neut # (Auto) 7.1 Lymph # (Auto) 1.8 [place] # (Auto) 1.5 H Eos # (Auto) 0.0 Baso # (Auto) 0.0 WBC Differential . Seg Neuts % (Manual) Band Neuts % (Manual) Lymphocytes % (Manual) Monocytes % (Manual) Eosinophils % (Manual) Myelocytes % (Man) Abs Neuts (Manual) Differential Comment Auto diff final Toxic Granulation Platelet Estimate Platelet Morphology Sodium 142 Potassium 3.4 L Chloride 105 Carbon Dioxide 28.7 Anion Gap 8 BUN 10 Creatinine Less than 0.15 L Estimated GFR Greater than 89 POC Glucose Random Glucose 95 Lactic Acid 0.4 Calcium 7.4 L* Prot Corrected Calcium 8.8 Phosphorus 2.7 Magnesium 1.6 Total Bilirubin AST ALT Alkaline Phosphatase Total Protein 4.7 L Albumin Vancomycin Trough 01/17/18 01/17/18 01/17/18 00:10 06:40 20:45 WBC RBC Hgb Hct MCV MCH MCHC RDW Plt Count MPV Prelim Diff (Auto) Neut % (Auto) Lymph % (Auto) [place] % (Auto) Eos % (Auto) Baso % (Auto) Neut # (Auto) Lymph # (Auto) [place] # (Auto) Eos # (Auto) Baso # (Auto) WBC Differential Seg Neuts % (Manual) Band Neuts % (Manual) Lymphocytes % (Manual) Monocytes % (Manual) Eosinophils % (Manual) Myelocytes % (Man) Abs Neuts (Manual) Differential Comment Toxic Granulation Platelet Estimate Platelet Morphology Sodium Potassium Chloride Carbon Dioxide Anion Gap BUN Creatinine Estimated GFR POC Glucose 100 104 Random Glucose Lactic Acid Calcium Prot Corrected Calcium Phosphorus Magnesium Total Bilirubin AST ALT Alkaline Phosphatase Total Protein Albumin Vancomycin Trough 13.0 H 01/17/18 01/18/18 01/18/18 23:06 04:22 04:22 WBC 13.6 H RBC 3.11 L Hgb 9.1 L Hct 28.2 L MCV 90.6 MCH 29.3 MCHC 32.4 RDW 15.6 Plt Count 260 MPV 8.0 Prelim Diff (Auto) Slide review pending Neut % (Auto) 72.2 H Lymph % (Auto) 14.0 [place] % (Auto) 12.7 H Eos % (Auto) 0.6 Baso % (Auto) 0.5 Neut # (Auto) 9.8 H Lymph # (Auto) 1.9 [place] # (Auto) 1.7 H Eos # (Auto) 0.1 Baso # (Auto) 0.1 WBC Differential Manual diff final Seg Neuts % (Manual) 63 Band Neuts % (Manual) 11 H Lymphocytes % (Manual) 18 Monocytes % (Manual) 6 Eosinophils % (Manual) 1 Myelocytes % (Man) 1 H Abs Neuts (Manual) 10.2 H Differential Comment . Toxic Granulation 2+ H Platelet Estimate Normal Platelet Morphology Normal Sodium 143 Potassium 3.3 L Chloride 106 Carbon Dioxide 24.4 Anion Gap 13 BUN 7 Creatinine Less than 0.15 L Estimated GFR Greater than 89 POC Glucose 83 Random Glucose 91 Lactic Acid Calcium 7.4 L* Prot Corrected Calcium 8.8 Phosphorus 1.7 L D Magnesium 1.5 Total Bilirubin AST ALT Alkaline Phosphatase Total Protein 4.7 L Albumin Vancomycin Trough Result Diagrams: 01/18/18 04:22 01/18/18 04:22 Microbiology: Microbiology 01/12/18 20:40 Aerobic Blood Culture - Final Blood - Peripheral No growth in 5 days Anaerobic Blood Culture - Final No growth in 5 days 01/12/18 20:45 Aerobic Blood Culture - Final Blood - Peripheral No growth in 5 days Anaerobic Blood Culture - Final No growth in 5 days 01/12/18 08:45 Gram Stain - Final Wound - Abdominal Wound Culture - Final Escherichia coli Lucy albicans Enterococcus faecium 01/13/18 18:14 Gram Stain - Final Sputum - Endotracheal Sputum Culture - Final Escherichia coli Imaging: Impressions Abdomen X-Ray 01/17/18 00:00 CONCLUSION: 1. Nonobstructed bowel gas pattern. No pneumoperitoneum. 2. Gastrostomy tube projecting over the left upper abdominal quadrant Abdomen X-Ray 01/17/18 00:00 CONCLUSION: Mild interval improvement in the bowel gas pattern. 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 Per EMR has daughter Dianna and "friend" Jai. He is an [employer] . Spiritual: declined rolled seat trimmer support Legal: Pt capacitated to make decisions. IN the event he is incapacitated, He designated Jai and Dianna Dolan as HCS. Have communicated with Jai, he accepts his role. Ethical issues impacting care: none at this time Important Contacts: daughter Dianna Dolan [phone] "friend" Jai Dolan home [phone], cell [phone] Prognosis: This is a 62 yo male with COPD, DM, hx etoh & tobacco use, > 40 pack years diagnosed with head and neck cancer. He also has a lung mass which has yet to be biopsied. He has lost 30 lbs in the last 6 months and now requires tube feedings. Has tracheostomy for breathing b/c mass has encroached on his airway. He received 3 x tx palliative chemotherapy, refused radiation and subsequently developed emphysematous cystitis, ileus. The chemo treatmens transiently shrunk tumor. Oncology now holding chemo and radiation and will not resume until pt's medical status improved. Given his underlying COPD and lung mass, recent setbacks, his prognosis is guarded at best. He is at significant risk for additional complications, setbacks, and further decline. Code Status: Full Code Plan: - LEGAL DECISON MAKER - pt with trach and communication is difficult but he is alert, oriented, and appropriate, capacitated to make decisions. Should he become incapacitated, he designated Jai Dolan as primary and Dianna Dolan as secondary HCS. - CODE STATUS- FULL CODE - GOALS - pt goal aggressive, wishes to cont to try to improve enough to resume chemo and XRT. - SYMPTOMS - * pain - 2/2 tumor, lines, tracheostomy. has rated his pain 10/10, he endorses pain in his neck and abdomen and discomfort from trach. Indicates morphine helpful but does not last long enough. Has gabapentin 300mg q8h. PRN oxycodone 10mg q4h pain , just resumed, previously held secondary to ileus. Methadone started 01/11 ro provide long acting pain control, was discontinued after 2 days d/t concern for altered mental status, lethargy--not clear if the altered mental status was due to infection versus methadone. Now has IV morphine 2mg q2h PRN, effective for 1.5-2 hrs, using about every 2-3 hrs. Mass appears to be increasing in size from prior visits. Not clear he will be able to resume chemo and XRT at this time. May need further up titration of prns as he is likely to become tolerant to doses. Cannot give other long-acting's via PEG as they cannot be crushed. I would not use a fentanyl patch on him as he is rather cachectic, absorption questionable. * dyspnea, secretions- 2/2 compromised airway, face/neck mass. Has tracheostomy , now on vent after episode vomiting, aspiration 01/13. Denies feeling SOB , secretions have been persistent. This will persist secondary to disease process. Pt wants to try chemo and radiation again but per oncology this is held until he shows improvement with other medical issues--not clear he will improve enough to resume chemo and XRT. On scheduled symbicort, sheduled duonebs prn michael vasquez. * anxiety - multifactorial. Patient has had flat affect, ambivalent, irritable. could be component of depression/anxiety. Earlier this week became extremely agitated en route to radiation therapy and essentially refused nursing was unable to transport. Oncology d/c xanax and added lorazepam. Although won't help in short term, could consider SSRI for longer term tx if pt amenable * nausea - multifactorial, s/p 3 x palliative chemotherapy tx, last one 01/06; now with ileus. prev. complained of nausea with roxanol admin. + Ileus, resolving. Tube feeds trickle has been resumed. denies gi c/o today. Has promethazine 25mg IM PRN breakthrough nausea, scopolamine patch, reglan 10mg q6h PRN, both PO and IV zofran PRN. Has not required . - discussed with RN - Palliative care will continue to follow during hospital course as condition evolves, to assist patient/decision-maker with understanding of medical conditions, weighing benefits/burdens of treatment options, for clarification of goals of treatment. Additionally will assist with any symptoms of palliative concern Time Spent Total Floor Time (mins): 25 (Chart review, PE, discussion with patient, discussion with critical care, discussion with nursing.) Attestation Attestation: To help prompt me to consider important information that might be impacting today's encounter and assessment, information from prior notes written by myself or my colleagues may have been "brought forward" into today's note. My signature on this note, however, is an attestation that I personally performed the exam, history, and/or decision-making noted today, and, unless otherwise indicated, the interactions with patient, family, and staff as well as the review of records all occurred today. I also attest that the listed assessment and stated plan reflect my best clinical judgment today based on the combination of historical information, prior notes, and today's exam/ interactions. When time spent is documented, it refers only to time spent today by the signer, or if indicated, combined time spent today by collaborating physician/nurse practitioner.
[2018-01-18] MEDS: Enoxaparin Inj 40 MG/0.4 ML Syringe SQ SCH (12:58)
[2018-01-18] MEDS: Pharmacy Ordered Lab Info OTHER ONE ×2 (12:59→14:39)
--- NOTE | 2018-01-18 17:16 | P.PNPL ---
Subjective Interval history: 62 YO WM wit H&N CA,RF, Trach Put Back on vent Had hypotension, receeved Fluid bolus, normotensive now Tolerates TF Awake, follows commands On PSV, Fi02 45% TF on hold due to high residual. Physical Exam Vital signs: Vital Signs 01/17/18 17:29 01/17/18 17:31 01/17/18 18:00 Temperature Pulse Rate 94 H 93 H Respiratory Rate 10 L 10 L Blood Pressure Pulse Oximetry 45 L 01/17/18 20:00 01/17/18 21:47 01/17/18 22:00 Temperature 99.6 F Pulse Rate 86 87 89 Respiratory Rate 12 11 L Blood Pressure 110/66 Pulse Oximetry 98 92 L 01/17/18 23:10 01/17/18 23:27 01/18/18 00:00 Temperature Pulse Rate 88 Respiratory Rate 11 L 12 12 Blood Pressure 111/65 Pulse Oximetry 98 01/18/18 00:18 01/18/18 02:00 01/18/18 02:56 Temperature Pulse Rate 87 88 Respiratory Rate 9 L 15 Blood Pressure Pulse Oximetry 01/18/18 04:00 01/18/18 04:17 01/18/18 05:46 Temperature Pulse Rate 93 H 91 H Respiratory Rate 12 9 L 11 L Blood Pressure 124/69 Pulse Oximetry 98 01/18/18 06:00 01/18/18 07:00 01/18/18 08:00 Temperature 99.7 F H Pulse Rate 98 H 93 H 102 H Respiratory Rate 11 L 27 H Blood Pressure Pulse Oximetry 98 01/18/18 08:01 01/18/18 08:06 01/18/18 11:00 Temperature Pulse Rate 106 H 94 H Respiratory Rate 23 12 13 Blood Pressure 140/79 Pulse Oximetry 01/18/18 12:02 01/18/18 12:18 01/18/18 15:00 Temperature Pulse Rate 96 H Respiratory Rate 12 11 L 10 L Blood Pressure Pulse Oximetry 01/18/18 15:32 Temperature Pulse Rate Respiratory Rate 10 L Blood Pressure Pulse Oximetry 96 Intake & Output 01/17/18 01/18/18 01/18/18 18:59 06:59 18:59 Intake Total 1350 / 1350 1950 / 1950 100 / 100 Output Total 1700 / 1700 1200 / 1200 Balance -350 / -350 750 / 750 100 / 100 Weight 67 kg Intake: IV 1350 / 1350 1950 / 1950 100 / 100 NS Inj 1,000 ML @ 84 mls/hr IV. 1000 / 1000 1000 / 1000 CONT .[id number] [facility] Rx#:[id number] Azactam Inj 2 GM In NS Inj 100 100 / 100 200 / 200 100 / 100 ML @ 200 mls/hr IV.SIG Q8H [facility]END[facility] Rx#:[id number] Vancomycin Inj 1,000 MG In NS 250 / 250 750 / 750 Inj 250 ML @ 250 mls/hr IV.SIG Q8H [facility]END[facility] Rx#:[id number] Oral 0 / 0 Tube Feeding 0 / 0 Output: Urine Amount (Catheter) 1200 / 1200 1200 / 1200 Indwelling Urethral Catheter 1200 / 1200 1200 / 1200 Gastric Drainage 500 / 500 0 / 0 Left Lower Quadrant Gastrostomy 500 / 500 0 / 0 Tube (PEG) Other: Date of Last Bowel Movement 01/16/18 01/16/18 01/16/18 # Bowel Movements 0 GENERAL:Elderly male, mild sob SKIN: Warm and dry. HEAD: Normocephalic. EYES: No scleral icterus. No injection or drainage. NECK: Supple, trachea midline. No JVD or lymphadenopathy. Neck mass, trach in place, CARDIOVASCULAR: Regular rate and rhythm without murmurs, gallops, or rubs. RESPIRATORY: Breath sounds equal bilaterally. No accessory muscle use. GASTROINTESTINAL: Abdomen soft, non-tender, nondistended. PEG functioning. MUSCULOSKELETAL: No cyanosis, or edema. BACK: Nontender without obvious deformity. No CVA tenderness. - Urinary Catheter Management Indwelling Urethral Catheter Cath placed during this visit: yes, but has since been removed by the nurse Reason for continuing: Acute urinary retention Insertion date: 01/14/18 Insertion time: 00:00 Removal date: 01/02/18 Removal time: 07:00 Condom Cath placed during this visit: yes Reason for continuing: Acute urinary retention Insertion date: 01/14/18 Insertion time: 18:30 Assessment and Plan - Plan Resp failure, on Vent S/P Emergent trach Neck Mass H&N Ca COPD Aspiration PLAN: Vent support,PSV, Fi02 45% Wean Fi02 cont Abx Aerosol nebs Tube feeding on hold Monitor Residual.
--- NOTE | 2018-01-18 18:47 | P.PNONC ---
Subjective Interval history: Events over the last 2 days noted. Patient has stabilized but still on multiple antibiotics for support. Noted sputum culture positive for E. coli. Off pressors. PEG tube feeding is being restarted. He remains on mechanical ventilatory support. He is awake alert able to communicate his desires. He is intent on continuing aggressive therapy. I discussed my concern about cytotoxic chemotherapy given his frail state. I recommend against administration of cytotoxic chemotherapy. We discussed possible radiation alone for palliation of the right neck enlarging mass. This would however require support during transportation to radiation suite, for which he needs to be in agreement and cooperative. Objective Vital Signs/Intake & Output: Vital Signs 01/17/18 20:00 01/17/18 21:47 01/17/18 22:00 Temperature 99.6 F Pulse Rate 86 87 89 Respiratory Rate 12 11 L Blood Pressure 110/66 Pulse Oximetry 98 92 L 01/17/18 23:10 01/17/18 23:27 01/18/18 00:00 Temperature Pulse Rate 88 Respiratory Rate 11 L 12 12 Blood Pressure 111/65 Pulse Oximetry 98 01/18/18 00:18 01/18/18 02:00 01/18/18 02:56 Temperature Pulse Rate 87 88 Respiratory Rate 9 L 15 Blood Pressure Pulse Oximetry 01/18/18 04:00 01/18/18 04:17 01/18/18 05:46 Temperature Pulse Rate 93 H 91 H Respiratory Rate 12 9 L 11 L Blood Pressure 124/69 Pulse Oximetry 98 01/18/18 06:00 01/18/18 07:00 01/18/18 08:00 Temperature 99.7 F H Pulse Rate 98 H 93 H 102 H Respiratory Rate 11 L 27 H Blood Pressure Pulse Oximetry 98 01/18/18 08:01 01/18/18 08:06 01/18/18 10:00 Temperature Pulse Rate 106 H 102 H Respiratory Rate 23 12 Blood Pressure 140/79 Pulse Oximetry 01/18/18 11:00 01/18/18 12:00 01/18/18 12:02 Temperature 99 F Pulse Rate 94 H 96 H Respiratory Rate 13 12 12 Blood Pressure 100/59 L Pulse Oximetry 01/18/18 12:15 01/18/18 12:18 01/18/18 12:30 Temperature Pulse Rate 94 H 93 H Respiratory Rate 13 11 L 10 L Blood Pressure 97/61 L 97/58 L Pulse Oximetry 07/25/18 12:46 01/18/18 13:00 01/18/18 13:15 Temperature Pulse Rate 98 H 96 H 95 H Respiratory Rate 20 21 19 Blood Pressure 115/56 L 100/57 L 97/60 L Pulse Oximetry 01/18/18 13:30 01/18/18 13:45 01/18/18 14:00 Temperature Pulse Rate 93 H 95 H 94 H Respiratory Rate 14 16 16 Blood Pressure 105/58 L 96/54 L 96/58 L Pulse Oximetry 01/18/18 14:15 01/18/18 14:30 01/18/18 14:45 Temperature Pulse Rate 94 H 97 H 97 H Respiratory Rate 10 L 23 11 L Blood Pressure 97/61 L 97/70 L 99/63 L Pulse Oximetry 01/18/18 15:00 01/18/18 15:08 01/18/18 15:15 Temperature Pulse Rate 96 H 94 H Respiratory Rate 11 L 12 16 Blood Pressure 104/58 L 130/75 Pulse Oximetry 01/18/18 15:30 01/18/18 15:32 01/18/18 15:45 Temperature Pulse Rate 96 H 96 H Respiratory Rate 15 10 L 12 Blood Pressure 98/60 L 91/56 L Pulse Oximetry 96 01/18/18 16:00 01/18/18 18:00 Temperature 99.4 F Pulse Rate 95 H 95 H Respiratory Rate 11 L Blood Pressure 98/58 L Pulse Oximetry Intake & Output 01/17/18 01/18/18 01/18/18 18:59 06:59 18:59 Intake Total 1350 / 1350 1950 / 1950 100 / 100 Output Total 1700 / 1700 1200 / 1200 1300 / 1300 Balance -350 / -350 750 / 750 -1200 / -1200 Weight 67 kg Intake: IV 1350 / 1350 1950 / 1950 100 / 100 NS Inj 1,000 ML @ 84 mls/hr IV. 1000 / 1000 1000 / 1000 CONT .[id number] [facility] Rx#:[id number] Azactam Inj 2 GM In NS Inj 100 100 / 100 200 / 200 100 / 100 ML @ 200 mls/hr IV.SIG Q8H [facility] Rx#:[id number] Vancomycin Inj 1,000 MG In NS 250 / 250 750 / 750 Inj 250 ML @ 250 mls/hr IV.SIG Q8H ALFR[facility] Rx#:[id number] Oral 0 / 0 Tube Feeding 0 / 0 Output: Urine 900 / 900 Urine Amount (Catheter) 1200 / 1200 1200 / 1200 Indwelling Urethral Catheter 1200 / 1200 1200 / 1200 Gastric Drainage 500 / 500 0 / 0 400 / 400 Left Lower Quadrant Gastrostomy 500 / 500 0 / 0 400 / 400 Tube (PEG) Other: Date of Last Bowel Movement 01/16/18 01/16/18 01/16/18 # Bowel Movements 0 Result Diagrams: 01/18/18 04:22 01/18/18 04:22 Laboratory Results: Laboratory Results - last 24 hr 01/17/18 01/17/18 01/18/18 20:45 23:06 04:22 WBC 13.6 H RBC 3.11 L Hgb 9.1 L Hct 28.2 L MCV 90.6 MCH 29.3 MCHC 32.4 RDW 15.6 Plt Count 260 MPV 8.0 Prelim Diff (Auto) Slide review pending Neut % (Auto) 72.2 H Lymph % (Auto) 14.0 Braxton % (Auto) 12.7 H Eos % (Auto) 0.6 Baso % (Auto) 0.5 Neut # (Auto) 9.8 H Lymph # (Auto) 1.9 Braxton # (Auto) 1.7 H Eos # (Auto) 0.1 Baso # (Auto) 0.1 WBC Differential Manual diff final Seg Neuts % (Manual) 63 Band Neuts % (Manual) 11 H Lymphocytes % (Manual) 18 Monocytes % (Manual) 6 Eosinophils % (Manual) 1 Myelocytes % (Man) 1 H Abs Neuts (Manual) 10.2 H Differential Comment . Toxic Granulation 2+ H Platelet Estimate Normal Platelet Morphology Normal Sodium Potassium Chloride Carbon Dioxide Anion Gap BUN Creatinine Estimated GFR POC Glucose 83 Random Glucose Lactic Acid Calcium Prot Corrected Calcium Phosphorus Magnesium Total Protein Vancomycin Trough 13.0 H 01/18/18 01/18/18 04:22 12:00 WBC RBC Hgb Hct MCV MCH MCHC RDW Plt Count MPV Prelim Diff (Auto) Neut % (Auto) Lymph % (Auto) Braxton % (Auto) Eos % (Auto) Baso % (Auto) Neut # (Auto) Lymph # (Auto) Braxton # (Auto) Eos # (Auto) Baso # (Auto) WBC Differential Seg Neuts % (Manual) Band Neuts % (Manual) Lymphocytes % (Manual) Monocytes % (Manual) Eosinophils % (Manual) Myelocytes % (Man) Abs Neuts (Manual) Differential Comment Toxic Granulation Platelet Estimate Platelet Morphology Sodium 143 Potassium 3.3 L Chloride 106 Carbon Dioxide 24.4 Anion Gap 13 BUN 7 Creatinine Less than 0.15 L Estimated GFR Greater than 89 POC Glucose Random Glucose 91 Lactic Acid 0.7 Calcium 7.4 L* Prot Corrected Calcium 8.8 Phosphorus 1.7 L D Magnesium 1.5 Total Protein 4.7 L Vancomycin Trough Culture Results: Microbiology 01/12/18 20:40 Aerobic Blood Culture - Final Blood - Peripheral No growth in 5 days Anaerobic Blood Culture - Final No growth in 5 days 01/12/18 20:45 Aerobic Blood Culture - Final Blood - Peripheral No growth in 5 days Anaerobic Blood Culture - Final No growth in 5 days Medications: Active Medications Generic Name Dose Route Start Last Admin Trade Name Freq PRN Reason Stop Dose Admin Albuterol 2.5 mg 12/26/17 16:04 01/14/18 12:25 Albuterol Neb (Prn) NEB 2.5 mg Q2HR NEB PRN Administration DYSPNEA Albuterol 1 ampul 01/13/18 20:00 01/18/18 15:30 Duoneb Neb (Alfred) NEB 1 ampul Q4HR NEB [facility] Administration Artificial Tears 1 drop 12/26/17 17:00 01/18/18 17:29 Tears Naturale Opth Drops EACH EYE 1 drop Q8H [facility] Administration Budesonide/Formoterol Fumarate 2 puff 12/25/17 09:00 01/18/18 08:04 Symbicort 160/4.5 Mcg Inh INH Not Given BID ALFRED Chlorhexidine Gluconate 15 ml 12/25/17 09:00 01/18/18 08:05 Peridex 0.12% Liq SWISH-SPIT 15 ml BID [facility] Administration Docusate Sodium 100 mg 12/26/17 21:00 01/18/18 08:05 Colace Liq G-TUBE Not Given BID [facility] Enoxaparin Sodium 40 mg 01/04/18 12:00 01/18/18 12:58 Lovenox Inj SQ 40 mg Q24H [facility] Administration Gabapentin 300 mg 12/29/17 08:15 01/18/18 13:05 Neurontin Liq PO 300 mg Q8HR [facility] Administration Guaifenesin 400 mg 01/13/18 22:00 01/18/18 13:05 Robitussin Liq G-TUBE 400 mg Q8HR [facility] Administration Heparin Sodium (Porcine) 250 unit 12/30/17 05:33 01/13/18 11:59 Heparin Central Flush IV.FLUSH 250 unit PRN PRN Administration Flush Infusapot Hyoscyamine 0.25 mg 01/03/18 18:00 01/18/18 17:29 Levsin PO 0.25 mg Q6HR ALFR[facility] Administration Linezolid 300 mls @ 300 mls/hr 01/18/18 12:00 01/18/18 12:59 Zyvox 600 Mg Premix IV.SIG 300 mls/hr Q12H [facility]FR[facility] Administration Potassium Chloride 40 meq in 100 mls @ 25 mls/hr 12/25/17 00:01 01/18/18 06: 42 Kcl 40 Meq Premix Inj IV.SIG 25 mls/hr UNSCH PRN Administration For Potassium 3.3 - 3.5 mEq/L Aztreonam 2 gm/ Sodium 100 mls @ 200 mls/hr 01/13/18 18:00 01/18/18 17:29 Chloride IV.SIG 200 mls/hr Q8H [facility]FR[facility] Administration Norepinephrine Bitartrate 16 250 mls @ 1.87 mls/hr 01/13/18 16:52 01/16/18 03 :00 mg/ Sodium Chloride IV.CONT 0 mcg/min TITRATE PRN 0 mls/hr See Protocol Titration Protocol 2 MCG/MIN Sodium Chloride 1,000 mls @ 84 mls/hr 01/13/18 18:00 01/18/18 17:30 Ns Inj IV.CONT Not Given .[id number] [facility] Insulin Aspart 0 unit 12/26/17 18:00 01/18/18 17:29 Novolog Insulin Suppl Scale Inj SQ Not Given Q6HR [facility] Protocol Lactulose 30 ml 01/14/18 21:00 01/18/18 08:05 Lactulose Liq PO Not Given BID [facility] Lansoprazole 30 mg 12/27/17 09:00 01/18/18 08:04 Prevacid Solutab NG/OG 30 mg DAILY [facility] Administration Magnesium Oxide 800 mg 12/25/17 00:01 01/17/18 08:24 Mag-Ox PO 800 mg UNSCH PRN Administration For Magnesium 1.2 - 1.6 mg/dL Metoclopramide HCl 10 mg 12/25/17 00:01 01/13/18 13:47 Reglan Inj IV.PUSH 10 mg Q6H PRN Administration Nausea or Vomiting Morphine Sulfate 2 mg 01/18/18 11:30 01/18/18 17:28 Morphine Inj IV.PUSH 2 mg Q2H PRN Administration BREAKTHROUGH PAIN Morphine Sulfate 4 mg 01/11/18 20:00 01/14/18 08:00 Roxanol Liq G-TUBE 4 mg Q6H [facility] Administration Ondansetron HCl 4 mg 12/25/17 17:35 01/12/18 18:05 Zofran Odt PO 4 mg Q6H PRN Administration NAUSEA OR VOMITING Ondansetron HCl 4 mg 01/01/18 20:02 01/13/18 11:58 Zofran Inj IV.PUSH 4 mg Q6H PRN Administration NAUSEA Oxycodone HCl 10 mg 12/25/17 00:01 01/12/18 04:23 Roxicodone PO 10 mg Q4H PRN Administration Pain Scale 3 to 5 Patch Removal 1 each 01/04/18 20:00 01/16/18 21:10 Remove Old Patch T-DERMAL 1 each Q72H [facility]ED Administration Polyethylene Glycol 17 gm 01/14/18 21:00 01/18/18 08:05 Miralax G-TUBE Not Given BID [facility] Potassium Bicarb/Potassium Chloride 50 meq 12/25/17 00:01 01/17/18 08:24 K-Lyte PO 50 meq UNSCH PRN Administration For Potassium 3.3 - 3.5 mEq/L Scopolamine 1 patch 01/04/18 20:00 01/16/18 21:10 Transderm-Scop 1.5 Mg Patch.72hr T-DERMAL 1 patch Q72H [facility] Administration Sennosides 8.8 mg 01/14/18 21:00 01/18/18 08:04 Senna Liq G-TUBE Not Given BID [facility] Sodium Chloride 2 ml 12/25/17 09:00 01/18/18 08:05 Ns Flush IV.FLUSH 2 ml BID [facility] Administration Sodium Chloride 2 ml 01/13/18 20:00 01/18/18 12:20 Sodium Chloride 3% Neb NEB 01/19/18 19:59 2 ml Q4HR NEB [facility]ED Administration Sterile Water 100 ml 01/14/18 14:00 01/18/18 13:05 Free Water G-TUBE 100 ml Q8HR [facility] Administration Temazepam 15 mg 12/25/17 18:35 01/18/18 03:56 Restoril NG/OG 15 mg HS PRN Administration INSOMNIA Tizanidine HCl 4 mg 12/29/17 09:00 01/18/18 08:04 Zanaflex PO 4 mg Q12HR [facility] Administration Objective Remarks: GENERAL: Slender appearing middle aged male, lying in bed, in no acute distress. SKIN: Warm and dry. Right neck mass and larger. Tongue is retracted in the mouth. HEAD: Normocephalic. EYES: No scleral icterus. No injection or drainage. NECK: Supple, tracheostomy in place. Mild edema along the right nasolabial fold. CARDIOVASCULAR:+ S1/S2. Regular rate and rhythm RESPIRATORY: Anterior breath sounds clear, equal bilaterally. No accessory muscle use. GASTROINTESTINAL: Abdomen tender to palpation all quadrants, hard, nondistended. PEG tube in place LUQ, currently connected to low intermittent wall suction draining bilious content. EXTREMITIES: No cyanosis or edema. NEUROLOGICAL: Alert and oriented. Shakes head yes and no appropriately. 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 A delay in his treatment coordinated by the [facility] resulted in his presentation to this hospital with a symptomatic large right neck and base of tongue/tonsil mass. C1 carbo/taxol 12/22 C2 12/29 C3 01/06 Plan: 1. S/P 3 palliative carbo/taxol, last one administered was on 01/06. Treatment deferred due to patient's decision not to proceed with radiation. He decompensated over the weekend requiring pressor support, antibiotic therapy, mechanical ventilatory support. He has improved. He is communicating to decide to proceed with aggressive treatment for palliation. We discussed the risk and benefit of chemotherapy. He is not a candidate at present in light of his poor performance status and his frail state. He has of bacterial infection and continue antibiotic therapy. The risk of cytotoxic chemotherapy administration outweighed the benefit. We will discuss with radiation oncology the option of radiation alone for palliation. For this he would need to be a cooperation. He will need to transport with mechanical ventilatory support in between his administration of antibiotic therapy. 2. Anemia noted to be worsening. Transfuse as needed. 3. Patient remains with poor prognosis. He is working with palliative care for pain management. Her goals of therapy remain aggressive. Nevertheless the endpoint would be for palliation. He has definite symptoms from the enlarging mass at the base of tongue in the right neck mass.
[2018-01-19] MEDS: Insulin NovoLOG Aspart Correctional Sugar Inj SQ SCH ×4 (00:09→18:00)
[2018-01-19] MEDS: Artificial Tears Opth Drops 15 ML Bottle EACH EYE SCH ×2 (00:10→09:00)
[2018-01-19] MEDS: Aztreonam Inj 2 GM in Sodium Chloride 0.9% Inj 100 ML IV.SIG SCH ×2 (01:29→09:54)
[2018-01-19] MEDS: Morphine Inj 4 MG/ML Vial IV.PUSH PRN ×5 (01:34→11:42)
[2018-01-19 04:41] LABS: Baso # (Auto) 0.1 th/mm3 (0.0-0.2); Baso % (Auto) 0.6 % (0.0-2.0); Eos # (Auto) 0.1 th/mm3 (0.0-0.4); Eos % (Auto) 0.5 % (0.0-4.0); Hemoglobin 9.1 gm/dL (13.0-17.0); Lymph % (Auto) 15.5 % (9.0-44.0); Mean Corpuscular HGB Conc 32.4 % (32.0-36.0); Mean Corpuscular Hemoglobin 28.9 pg (27.0-34.0); Mean Corpuscular Volume 89.2 fL (80.0-100.0); Mean Platelet Volume 7.6 fL (7.0-11.0); Mono # (Auto) 1.5 th/mm3 (0.0-0.9); Mono % (Auto) 11.4 % (0.0-8.0); Neut # (Auto) 9.5 th/mm3 (1.8-7.7); Platelet Count 227 th/mm3 (150-450); Red Blood Count 3.14 mil/mm3 (4.50-5.90); Red Cell Distribution Width 15.9 % (11.6-17.2); White Blood Count 13.2 th/mm3 (4.0-11.0)
[2018-01-19 04:53] LABS: INR 1.5 Ratio; Prothrombin Time 15.4 sec (9.8-11.6)
[2018-01-19 05:01] LABS: Alanine Aminotransferase 8 U/L (12-78); Albumin 1.8 g/dL (3.4-5.0); Anion Gap 10 meq/L (5-15); Aspartate Aminotransferase 7 U/L (15-37); Blood Urea Nitrogen 5 mg/dL (7-18); Calcium 7.3 mg/dL (8.5-10.1); Carbon Dioxide 26.6 meq/L (21.0-32.0); Chloride 105 meq/L (98-107); Glomerular Filtration Rate Greater Than 89 mL/min (>89); Glucose,Random 102 mg/dL (74-106); Magnesium 1.3 mg/dL (1.5-2.5); Phosphorus 2.2 mg/dL (2.5-4.9); Potassium 3.5 meq/L (3.5-5.1); Sodium 142 meq/L (136-145)
[2018-01-19 05:06] LABS: Alkaline Phosphatase 54 U/L (45-117); Total Protein 4.6 g/dL (6.4-8.2)
[2018-01-19] MEDS: Gabapentin Liq 250 MG/5 ML UDC PO SCH ×2 (05:20→14:00)
--- NOTE | 2018-01-19 05:25 | XR ---
EXAM DATE: 01/19/2018 4:07 AM EDT AGE/SEX: 62 years / Male INDICATIONS: Shortness of breath, possible pulmonary disease. CLINICAL DATA: This is the patient's subsequent encounter. Patient reports that signs and symptoms h ave been present for 1 month and indicates a pain score of 0/10. MEDICAL/SURGICAL HISTORY: . Cardiovascular disease. Hypertension. Gastroesophageal reflux disea se. Metastatic head and neck cancer., diabetes, atrial fibrillation None. COMPARISON: [facility] [place], 01/16/2018. . FINDINGS: A single AP view of the chest demonstrates lungs to be hyperinflated with probable emphysematous melendrez ges in the apices. Persistent left basilar consolidation/effusion. Worsening right-sided effusion. He art size is normal. Tracheostomy tube and right IJ central venous catheter are unchanged in position. Osseous structures are intact. CONCLUSION: 1. Persistent left basilar consolidation/effusion. 2. Worsening airspace disease/effusion on the right. 3. Hyperinflation with probable biapical emphysematous changes Electronically signed by: Gabe Correia MD 01/19/2018 5:24 AM EDT
--- NOTE | 2018-01-19 05:27 | XR ---
EXAM DATE: 01/19/2018 4:06 AM EDT AGE/SEX: 62 years / Male INDICATIONS: Abdominal distention. CLINICAL DATA: This is the patient's subsequent encounter. Patient reports that signs and symptoms h ave been present for 1 month and indicates a pain score of 0/10. MEDICAL/SURGICAL HISTORY: . Cardiovascular disease. Hypertension. Gastroesophageal reflux disea se. Metastatic head and neck cancer., diabetes, atrial fibrillation None. [place] [facility] [place]. . FINDINGS: Scattered air in small bowel loops and the colon in a nonobstructive pattern. Gastrostomy tube in th e left upper abdominal quadrant. No obvious pneumoperitoneum. Atherosclerotic calcification of the re gional vasculature. Dextroscoliosis of the thoracolumbar spine with associated degenerative changes. Osseous structures are otherwise intact. Nonobstructive bowel gas pattern without pneumoperitoneum Electronically signed by: Gabe Correia MD 01/19/2018 5:26 AM EDT
[2018-01-19] MEDS: Sod Chloride 0.9% Inj 1,000 ML IV.CONT SCH ×2 (05:35→20:28)
[2018-01-19 06:21] LABS: Eosinophils 2 % (0-4); Lymphocytes 13 % (9-44); Metamyelocytes 1 % (0-1); Monocytes 12 % (0-8)
[2018-01-19 06:23] LABS: Platelet Estimate Normal (Normal); Platelet Morphology Normal (Normal); Polychromasia 2.1 % (0.0-1.9)
[2018-01-19 06:24] LABS: Stomatocytes 1+
[2018-01-19] MEDS: Budesonide-Formoterol 160/4.5 MCG 6 GM Inhaler INH SCH ×2 (08:10→20:47)
[2018-01-19] MEDS: Polyethylene Glycol 3350 17 GM Packet G-TUBE SCH ×2 (09:52→20:27)
[2018-01-19] MEDS: Docusate Sodium Liq 100 MG/10 ML UDC G-TUBE SCH ×2 (09:54→20:29)
[2018-01-19] MEDS: Sennosides Liq 8.8 MG/5 ML UDC G-TUBE SCH ×2 (09:55→20:30)
[2018-01-19] MEDS: Enoxaparin Inj 40 MG/0.4 ML Syringe SQ SCH (11:47)
--- NOTE | 2018-01-19 12:41 | P.PNPAL ---
Reason for Visit Reason for visit: a. To assist with evaluation and management of symptoms including: pain, dyspnea, anxiety, nausea b. To assist medical decision maker(s) with: better understanding of current medical conditions; weighing benefits/burdens of medical treatment options; making medical treatment decisions. Subjective Subjective/Interval History: [facility] in bed, [facility]. Awake and alert, able to gesture or write for communication to make his needs known. Requesting suction. 5 PEEP, 10 pressure. Admits pain in neck, does not further qualify or quantify on questioning. Indicates that abd pain is improved. His abd is less distended and softer than prior exam, bowel sounds active. His PEG is still to suction, 300cc over night. D/w him that chemo no longer option per oncology but that they may consider palliative radiation. He indicates that he want to pursue this and indicates that he does understand that in order for radiation to be effective, he must go as instructed and that it is a commitment. per case mgmt there are plans for pt to go to [facility] after d/c. Advance Directives Health Care Surrogate Name and Number: primary [facility] Jai Dolan; secondary Dianna [place] Objective Vital Signs: Vital Signs 01/18/18 12:30 01/18/18 12:46 01/18/18 13:00 Temperature Pulse Rate 93 H 98 H 96 H Respiratory Rate 10 L 20 21 Blood Pressure 97/58 L 115/56 L 100/57 L Pulse Oximetry 01/18/18 13:15 01/18/18 13:30 01/18/18 13:45 Temperature Pulse Rate 95 H 93 H 95 H Respiratory Rate 19 14 16 Blood Pressure 97/60 L 105/58 L 96/54 L Pulse Oximetry 01/18/18 14:00 01/18/18 14:15 01/18/18 14:30 Temperature Pulse Rate 94 H 94 H 97 H Respiratory Rate 16 10 L 23 Blood Pressure 96/58 L 97/61 L 97/70 L Pulse Oximetry 01/18/18 14:45 01/18/18 15:00 01/18/18 15:08 Temperature Pulse Rate 97 H 96 H Respiratory Rate 11 L 11 L 12 Blood Pressure 99/63 L 104/58 L Pulse Oximetry 01/18/18 15:15 01/18/18 15:30 01/18/18 15:32 Temperature Pulse Rate 94 H 96 H Respiratory Rate 16 15 10 L Blood Pressure 130/75 98/60 L Pulse Oximetry 96 01/18/18 15:45 01/18/18 16:00 01/18/18 18:00 Temperature 99.4 F Pulse Rate 96 H 95 H 95 H Respiratory Rate 12 11 L Blood Pressure 91/56 L 98/58 L Pulse Oximetry 01/18/18 20:00 01/18/18 20:02 01/18/18 22:00 Temperature 99.4 F Pulse Rate 93 H 94 H Respiratory Rate 9 L 14 Blood Pressure 105/58 L Pulse Oximetry 97 01/18/18 23:15 01/19/18 00:00 01/19/18 02:00 Temperature 99.4 F Pulse Rate 87 94 H 88 Respiratory Rate 10 L 11 L Blood Pressure 84/50 L Pulse Oximetry 95 97 01/19/18 03:24 01/19/18 03:41 01/19/18 04:00 Temperature 99.1 F Pulse Rate 93 H 96 H Respiratory Rate 12 12 12 Blood Pressure 113/64 Pulse Oximetry 93 L 97 01/19/18 04:43 01/19/18 06:00 01/19/18 08:00 Temperature Pulse Rate 97 H 93 H Respiratory Rate 12 Blood Pressure Pulse Oximetry 01/19/18 08:13 01/19/18 08:21 Temperature Pulse Rate 92 H 93 H Respiratory Rate 10 L 9 L Blood Pressure Pulse Oximetry 95 Intake & Output 01/18/18 01/19/18 01/19/18 18:59 06:59 18:59 Intake Total 1512 / 1512 1400 / 1400 Output Total 1300 / 1300 800 / 800 Balance 212 / 212 600 / 600 Weight 66 kg Intake: IV 1512 / 1512 1400 / 1400 NS Inj 1,000 ML @ 84 mls/hr IV. 1000 / 1000 1000 / 1000 CONT .[id number] BRENDEN Rx#:[id number] Azactam Inj 2 GM In NS Inj 100 200 / 200 100 / 100 ML @ 200 mls/hr IV.SIG Q8H BRENDEN Rx#:[id number] Zyvox 600 mg Premix 300 ML @ 300 / 300 300 / 300 300 mls/hr IV.SIG Q12H BRENDEN Rx#: [id number] KCl 40 mEq Premix Inj 40 meq In 100 ml @ 25 mls/hr IV.SIG UNSCH PRN Rx#:[id number] Oral 0 / 0 Output: Urine 900 / 900 Urine Amount (Catheter) 800 / 800 Indwelling Urethral Catheter 800 / 800 Gastric Drainage 400 / 400 Left Lower Quadrant Gastrostomy 400 / 400 Tube (PEG) Other: Date of Last Bowel Movement 01/16/18 01/16/18 01/16/18 Physical Exam: CONSTITUTIONAL/GENERAL: mildly cachectic, alert, calm TUBES/LINES/DRAINS: port accessed rt chest, trach to vent, PEG to suction, PIV RUE SKIN: sallow complexion No wounds seen anteriorly other than face. skin warm/ dry HEAD: Atraumatic. Disfigured/mass right face and neck EYES: PERRL. Extraocular motions intact. No scleral icterus. No injection or drainage. Fundi not examined. ENT: Hearing grossly normal. Nose without bleeding or purulent drainage. large mass right cheek extending down to neck, appears larger than previous eval. white patches on tongue NECK: mass right side. RESPIRATORY/CHEST: respirations unlabored, lungs sounds coarse. Diminsihed. trach to vent, on CPAP GASTROINTESTINAL: Abdomen soft, nontender, non distended, BS active > prior eval. + PEG to suction NEUROLOGICAL:alert, calm, cooperative. Nods /gestures/writes in communication/ understanding. appears oriented/appropriate. Moves all 4 extremities. PSYCHIATRIC: calm, no anxiety evident Diagnostic Tests Laboratory: Laboratory Results - last 72 hr 01/15/18 01/16/18 01/17/18 23:50 14:40 00:10 WBC 10.4 RBC 2.72 L Hgb 8.3 L 8.1 L Hct 25.1 L 24.5 L MCV 90.0 MCH 29.6 MCHC 32.9 RDW 15.7 Plt Count 249 MPV 7.7 Prelim Diff (Auto) Neut % (Auto) 68.3 Lymph % (Auto) 17.1 [place] % (Auto) 13.9 H Eos % (Auto) 0.4 Baso % (Auto) 0.3 Neut # (Auto) 7.1 Lymph # (Auto) 1.8 [place] # (Auto) 1.5 H Eos # (Auto) 0.0 Baso # (Auto) 0.0 WBC Differential . Seg Neuts % (Manual) Band Neuts % (Manual) Lymphocytes % (Manual) Monocytes % (Manual) Eosinophils % (Manual) Metamyelocytes % (Man) Myelocytes % (Man) Abs Neuts (Manual) Differential Comment Auto diff final Toxic Granulation Platelet Estimate Platelet Morphology Polychromasia Stomatocytes PT INR APTT Sodium Potassium Chloride Carbon Dioxide Anion Gap BUN Creatinine Estimated GFR POC Glucose 126 H Random Glucose Lactic Acid Calcium Prot Corrected Calcium Phosphorus Magnesium Total Bilirubin AST ALT Alkaline Phosphatase Total Protein Albumin Vancomycin Trough 01/17/18 01/17/18 01/17/18 00:10 00:10 00:10 WBC RBC Hgb Hct MCV MCH MCHC RDW Plt Count MPV Prelim Diff (Auto) Neut % (Auto) Lymph % (Auto) [place] % (Auto) Eos % (Auto) Baso % (Auto) Neut # (Auto) Lymph # (Auto) [place] # (Auto) Eos # (Auto) Baso # (Auto) WBC Differential Seg Neuts % (Manual) Band Neuts % (Manual) Lymphocytes % (Manual) Monocytes % (Manual) Eosinophils % (Manual) Metamyelocytes % (Man) Myelocytes % (Man) Abs Neuts (Manual) Differential Comment Toxic Granulation Platelet Estimate Platelet Morphology Polychromasia Stomatocytes PT INR APTT Sodium 142 Potassium 3.4 L Chloride 105 Carbon Dioxide 28.7 Anion Gap 8 BUN 10 Creatinine Less than 0.15 L Estimated GFR Greater than 89 POC Glucose 100 Random Glucose 95 Lactic Acid 0.4 Calcium 7.4 L* Prot Corrected Calcium 8.8 Phosphorus 2.7 Magnesium 1.6 Total Bilirubin AST ALT Alkaline Phosphatase Total Protein 4.7 L Albumin Vancomycin Trough 01/17/18 01/17/18 01/17/18 06:40 20:45 23:06 WBC RBC Hgb Hct MCV MCH MCHC RDW Plt Count MPV Prelim Diff (Auto) Neut % (Auto) Lymph % (Auto) [place] % (Auto) Eos % (Auto) Baso % (Auto) Neut # (Auto) Lymph # (Auto) [place] # (Auto) Eos # (Auto) Baso # (Auto) WBC Differential Seg Neuts % (Manual) Band Neuts % (Manual) Lymphocytes % (Manual) Monocytes % (Manual) Eosinophils % (Manual) Metamyelocytes % (Man) Myelocytes % (Man) Abs Neuts (Manual) Differential Comment Toxic Granulation Platelet Estimate Platelet Morphology Polychromasia Stomatocytes PT INR APTT Sodium Potassium Chloride Carbon Dioxide Anion Gap BUN Creatinine Estimated GFR POC Glucose 104 83 Random Glucose Lactic Acid Calcium Prot Corrected Calcium Phosphorus Magnesium Total Bilirubin AST ALT Alkaline Phosphatase Total Protein Albumin Vancomycin Trough 13.0 H 01/18/18 01/18/18 01/18/18 04:22 04:22 12:00 WBC 13.6 H RBC 3.11 L Hgb 9.1 L Hct 28.2 L MCV 90.6 MCH 29.3 MCHC 32.4 RDW 15.6 Plt Count 260 MPV 8.0 Prelim Diff (Auto) Slide review pending Neut % (Auto) 72.2 H Lymph % (Auto) 14.0 [place] % (Auto) 12.7 H Eos % (Auto) 0.6 Baso % (Auto) 0.5 Neut # (Auto) 9.8 H Lymph # (Auto) 1.9 [place] # (Auto) 1.7 H Eos # (Auto) 0.1 Baso # (Auto) 0.1 WBC Differential Manual diff final Seg Neuts % (Manual) 63 Band Neuts % (Manual) 11 H Lymphocytes % (Manual) 18 Monocytes % (Manual) 6 Eosinophils % (Manual) 1 Metamyelocytes % (Man) Myelocytes % (Man) 1 H Abs Neuts (Manual) 10.2 H Differential Comment . Toxic Granulation 2+ H Platelet Estimate Normal Platelet Morphology Normal Polychromasia Stomatocytes PT INR APTT Sodium 143 Potassium 3.3 L Chloride 106 Carbon Dioxide 24.4 Anion Gap 13 BUN 7 Creatinine Less than 0.15 L Estimated GFR Greater than 89 POC Glucose Random Glucose 91 Lactic Acid 0.7 Calcium 7.4 L* Prot Corrected Calcium 8.8 Phosphorus 1.7 L D Magnesium 1.5 Total Bilirubin AST ALT Alkaline Phosphatase Total Protein 4.7 L Albumin Vancomycin Trough 01/19/18 01/19/18 01/19/18 00:08 04:30 04:30 WBC 13.2 H RBC 3.14 L Hgb 9.1 L Hct 28.0 L MCV 89.2 MCH 28.9 MCHC 32.4 RDW 15.9 Plt Count 227 MPV 7.6 Prelim Diff (Auto) Slide review pending Neut % (Auto) 72.0 H Lymph % (Auto) 15.5 [place] % (Auto) 11.4 H Eos % (Auto) 0.5 Baso % (Auto) 0.6 Neut # (Auto) 9.5 H Lymph # (Auto) 2.0 [place] # (Auto) 1.5 H Eos # (Auto) 0.1 Baso # (Auto) 0.1 WBC Differential Manual diff final Seg Neuts % (Manual) 70 Band Neuts % (Manual) 2 Lymphocytes % (Manual) 13 Monocytes % (Manual) 12 H Eosinophils % (Manual) 2 Metamyelocytes % (Man) 1 Myelocytes % (Man) Abs Neuts (Manual) 9.6 H Differential Comment . Toxic Granulation Platelet Estimate Normal Platelet Morphology Normal Polychromasia 2.1 H Stomatocytes 1+ H PT 15.4 H INR 1.5 APTT 34.0 H Sodium Potassium Chloride Carbon Dioxide Anion Gap BUN Creatinine Estimated GFR POC Glucose 90 Random Glucose Lactic Acid Calcium Prot Corrected Calcium Phosphorus Magnesium Total Bilirubin AST ALT Alkaline Phosphatase Total Protein Albumin Vancomycin Trough 01/19/18 04:30 WBC RBC Hgb Hct MCV MCH MCHC RDW Plt Count MPV Prelim Diff (Auto) Neut % (Auto) Lymph % (Auto) [place] % (Auto) Eos % (Auto) Baso % (Auto) Neut # (Auto) Lymph # (Auto) [place] # (Auto) Eos # (Auto) Baso # (Auto) WBC Differential Seg Neuts % (Manual) Band Neuts % (Manual) Lymphocytes % (Manual) Monocytes % (Manual) Eosinophils % (Manual) Metamyelocytes % (Man) Myelocytes % (Man) Abs Neuts (Manual) Differential Comment Toxic Granulation Platelet Estimate Platelet Morphology Polychromasia Stomatocytes PT INR APTT Sodium 142 Potassium 3.5 Chloride 105 Carbon Dioxide 26.6 Anion Gap 10 BUN 5 L Creatinine Less than 0.15 L Estimated GFR Greater than 89 POC Glucose Random Glucose 102 Lactic Acid Calcium 7.3 L* Prot Corrected Calcium 8.7 Phosphorus 2.2 L Magnesium 1.3 L Total Bilirubin 0.2 AST 7 L ALT 8 L Alkaline Phosphatase 54 Total Protein 4.6 L Albumin 1.8 L Vancomycin Trough Result Diagrams: 01/19/18 04:30 01/19/18 04:30 Microbiology: Microbiology 01/12/18 20:40 Aerobic Blood Culture - Final Blood - Peripheral No growth in 5 days Anaerobic Blood Culture - Final No growth in 5 days 01/12/18 20:45 Aerobic Blood Culture - Final Blood - Peripheral No growth in 5 days Anaerobic Blood Culture - Final No growth in 5 days Procedures: 12/19 g tube placement by IR 12/20 emergency tracheostomy 12/22 chemotherapy initiated 12/29 2nd dose chemo Assessment and Plan - Disease Oriented Problem List (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 Per EMR has daughter Dianna and "friend" Jai. He is an [employer] . Spiritual: declined oyster shucker support Legal: Pt capacitated to make decisions. IN the event he is incapacitated, He designated Jai and Dianna Dolan as HCS. Have communicated with Jai, he accepts his role. Ethical issues impacting care: none at this time Important Contacts: daughter Dianna Dolan [phone] "friend" Jai Dolan home [phone], cell [phone] Prognosis: This is a 62 yo male with COPD, DM, hx etoh & tobacco use, > 40 pack years diagnosed with head and neck cancer. He also has a lung mass which has yet to be biopsied. He has lost 30 lbs in the last 6 months and now requires tube feedings. Has tracheostomy for breathing b/c mass has encroached on his airway. He received 3 x tx palliative chemotherapy, refused radiation and subsequently developed emphysematous cystitis, ileus. The chemo treatmens transiently shrunk tumor. Oncology now holding chemo and radiation and will not resume until pt's medical status improved. Given his underlying COPD and lung mass, recent setbacks, his prognosis is guarded at best. He is at significant risk for additional complications, setbacks, and further decline. Code Status: Full Code Plan: - LEGAL DECISON MAKER - pt with trach and communication is difficult but he is alert, oriented, and appropriate, capacitated to make decisions. Should he become incapacitated, he designated Jai Dolan as primary and Dianna Dolan as secondary HCS. - CODE STATUS- FULL CODE - GOALS - pt goal aggressive, wishes to cont to try to improve enough to resume chemo and XRT. - SYMPTOMS - * pain - 2/2 tumor, lines, tracheostomy. has rated his pain 10/10 per nursing notes and per RN, he endorses pain in his neck and discomfort from trach. Has gabapentin 300mg q8h. Methadone started 01/11 ro provide long acting pain control, was discontinued after 2 days d/t concern for altered mental status, lethargy--not clear if the altered mental status was due to infection versus methadone. Now has IV morphine 2mg q2h PRN,using about every 2 hrs, had 18 mg in last 24h. fentanyl patch may not be reliably effective d/t cachexia. His ileus seems improved, could consider starting trickle feeding and if TF tolerated, resuming roxanol 8mg q6h. If not tolerating TF or until feeds start , could consider uptitrating IV morphine to 3mg q2h * dyspnea, secretions- 2/2 compromised airway, face/neck mass. Has tracheostomy , now on vent after episode vomiting, aspiration 01/13. Denies feeling SOB , secretions have been persistent. This will persist secondary to disease process. Pt wants to try chemo and radiation again but he is not a candidate for chemo. Oncology may offer palliative radiation but this requires cooperating and committment from patient, which he indicates understands and wants to proceed. On scheduled symbicort, sheduled christina prn michael vasquez. * anxiety - multifactorial. Patient has had flat affect, ambivalent, irritable. could be component of depression/anxiety. Last week became extremely agitated en route to radiation therapy and essentially refused nursing was unable to transport. Oncology d/c xanax and added lorazepam. Although won't help in short term, could consider SSRI for longer term tx if pt amenable * nausea - multifactorial, s/p 3 x palliative chemotherapy tx, last one 01/06; prev. complained of nausea with roxanol admin. + Ileus, resolving. Tube feeds trickle has been resumed. denies gi c/o today. Has promethazine 25mg IM PRN breakthrough nausea, scopolamine patch, reglan 10mg q6h PRN, both PO and IV zofran PRN. Has not required PRN antiemetics. - discussed with RN - Palliative care will continue to follow during hospital course as condition evolves, to assist patient/decision-maker with understanding of medical conditions, weighing benefits/burdens of treatment options, for clarification of goals of treatment. Additionally will assist with any symptoms of palliative concern Attestation Attestation: To help prompt me to consider important information that might be impacting today's encounter and assessment, information from prior notes written by myself or my colleagues may have been "brought forward" into today's note. My signature on this note, however, is an attestation that I personally performed the exam, history, and/or decision-making noted today, and, unless otherwise indicated, the interactions with patient, family, and staff as well as the review of records all occurred today. I also attest that the listed assessment and stated plan reflect my best clinical judgment today based on the combination of historical information, prior notes, and today's exam/ interactions. When time spent is documented, it refers only to time spent today by the signer, or if indicated, combined time spent today by collaborating physician/nurse practitioner.
[2018-01-19] MEDS: Chlorhexidine Gluconate 0.12% Liq 15 ML UDC SWISH-SPIT SCH ×2 (14:03→20:30)
[2018-01-19] MEDS ORDERED: Dexmedetomidine Inj 200 MCG in Sodium Chlor 0.9% Inj 48 ML IV.CONT PRN ×2 (15:20→15:25)
--- NOTE | 2018-01-19 16:03 | P.PNCC ---
Subjective Subjective Remarks/Hospital Course: Remarks/Hospital Course This is a 62-year-old male with a past medical history of squamous cell carcinoma of the head and neck, lung mass COPD, hypertension diabetes with a history of tobacco abuse, that presented on 12/18. The patient regularly is seen at the [facility] however he was not afforded treatment at this time . The patient was admitted to the medical floor, hematology oncology had been consulted plans were for chemotherapy to be initiated today the patient underwent PEG placement yesterday. Late this afternoon the patient was noted to be hypoxemic with significant airway edema , O2 sat in the 80's, Pao2 59 on 100% nonrebreather ,in the setting of a large tumor mass .A Halicat was called , and the patient was emergently transferred to [facility]. Upon transfer the patient was immediately out evaluated and noted to be in significant respiratory distress, oral airway significantly edematous tongue protruding out of mouth Mallampati unobtainable upon evaluation. The patient appeared to be alert and could not yes and no to questions unable to speak. Quick assessment of CT scans that were previously done of the neck showed a large tumor mass crossing midline. Dr. Cabello , Anesthesiologist in to evaluate patient at bedside discussed case with him. Emergency airway equipment placed at bedside trauma surgery was notified I spoke with Dr. Rangel, patient emergently scheduled for tracheostomy to secure airway. A left radial A-line was placed ABG on 100% nonrebreather was obtained prior to going PaO2 had risen to 60 on nonrebreather mask. 12/21: No acute events overnight. The patient underwent emergency tracheostomy to secure the airway last evening. Norepinephrine and fentanyl infusions have been discontinued this morning patient has been transitioned onto CPAP trials and denies any discomfort. Patient is communicating with board and marker. PEG tube in situ tube feedings Glucerna currently at 30 cc/an hour continue to be advanced to goal. FiO2 has been decreased to .45% 12/22: No acute events overnight. The patient was maintained on CPAP trials throughout the night and this afternoon plan trach collar trials this afternoon PT OT has been initiated. Patient tolerating tube feeds no residuals. 12/23: Patient progressing well currently on trach collar trials greater than 24 hours. Patient tolerating tube feeds diet. Chemotherapy initiated yesterday. Patient denies pain. 12/24: Late entry note patient seen at 11:40 AM. Overnight the patient became agitated pulling off lines and tubes. Patient had previous stated that he has an anxiety disorder ,Xanax was ordered however not given. Upon my evaluation this a.m. O2 saturation noted to be low patient placed on FiO2 of 80% stat ABG was performed to reveal hypoxemia the patient was placed back on CPAP stat chest x-ray was performed which showed worsening airspace disease in the bases. 12/25: Patient noted with episodes of nausea, tube feeds held. Zofran given for nausea. The patient continues to have increased FiO2 requirements the patient is being placed on trach collar during the day CPAP at night. 12/26: Vitals not documented. Currently on CPAP 10/5 and 40%. No bowel movements documented. Not on a bowel regimen. 12/27: Remains on mechanical ventilation via tracheostomy. On CPAP trials. 12/28: no changes. still with cpap trials. 12/29: tolerating t-piece trials. rested on cpap overnight. complaints of continued pain around tumor site, as well as significant secretions. 12/30: clinically doing well. denies complaints. asked that speech re-evaluate him because he would like to start eating real food again. plan for XRT to start today. 12/31: On mechanical ventilation via trach. Tolerating T piece trials 01/01: Remains on mechanical ventilation via trach. 01/02: On T-piece. Awaiting radiation today 01/13: Reconsult due to hypotension/aspiration with worsening oxygenation. Patient replaced back on the ventilator via tracheostomy with cuff inflated. Of note, patient has been refusing radiation therapy and his chemotherapy has been held for that reason by oncology. Patient with urinary tract infection/ becoming septic with possible infected PEG site as well. 01/14: Patient plan for CT abdomen/pelvis today. White blood cell count improved. Remains on ventilator. Greater than 1 L from G-tube to drainage overnight 01/15: Afebrile. Noted CT abdomen/pelvis revealed emphysematous cystitis. Discussed with urology. Tavarez has been placed. Will evaluate today. Currently on low-dose norepinephrine. Continues to have ileus. 01/16: Patient requesting additional pain medication. G2 -200 cc. Recheck KUB today. White cell count is normalized. Off vasopressors. 01/17: Resting complaint bed in no acute distress. Complaining of pain in neck. Off all vasopressors. We will restart tube feeds today at 20 cc an hour goal. Subjective: 01/18: T-max 99.7. -350 per G-tube overnight. No bowel movement yesterday. Tumor is right neck appears to be enlarging. Very painful. Will restart tube feeds at 20 cc an hour today. Oxycodone by tube for pain management. 01/19: Objective Vital Signs / I&O: Vital Signs 01/18/18 18:00 01/18/18 20:00 01/18/18 20:02 Temperature 37.4 C Pulse Rate 95 H 93 H Respiratory Rate 9 L 14 Blood Pressure 105/58 L Pulse Oximetry 97 01/18/18 22:00 01/18/18 23:15 01/19/18 00:00 Temperature 37.4 C Pulse Rate 94 H 87 94 H Respiratory Rate 10 L 11 L Blood Pressure 84/50 L Pulse Oximetry 95 97 01/19/18 02:00 01/19/18 03:24 01/19/18 03:41 Temperature Pulse Rate 88 93 H Respiratory Rate 12 12 Blood Pressure Pulse Oximetry 93 L 01/19/18 04:00 01/19/18 04:43 01/19/18 06:00 Temperature 37.3 C Pulse Rate 96 H 97 H Respiratory Rate 12 12 Blood Pressure 113/64 Pulse Oximetry 97 01/19/18 08:00 01/19/18 08:13 01/19/18 08:21 Temperature Pulse Rate 93 H 92 H 93 H Respiratory Rate 10 L 9 L Blood Pressure Pulse Oximetry 95 01/19/18 10:00 01/19/18 12:01 01/19/18 13:17 Temperature Pulse Rate 93 H 93 H 94 H Respiratory Rate 10 L Blood Pressure Pulse Oximetry 93 L Intake & Output 01/18/18 01/19/18 01/19/18 18:59 06:59 18:59 Intake Total 1512 / 1512 1400 / 1400 Output Total 1300 / 1300 800 / 800 Balance 212 / 212 600 / 600 Weight 66 kg Intake: IV 1512 / 1512 1400 / 1400 NS Inj 1,000 ML @ 84 mls/hr IV. 1000 / 1000 1000 / 1000 CONT .[id number] BRENDEN Rx#:[id number] Azactam Inj 2 GM In NS Inj 100 200 / 200 100 / 100 ML @ 200 mls/hr IV.SIG Q8H BRENDEN Rx#:[id number] Zyvox 600 mg Premix 300 ML @ 300 / 300 300 / 300 300 mls/hr IV.SIG Q12H BRENDEN Rx#: [id number] KCl 40 mEq Premix Inj 40 meq In 100 ml @ 25 mls/hr IV.SIG UNSCH PRN Rx#:[id number] Oral 0 / 0 Output: Urine 900 / 900 Urine Amount (Catheter) 800 / 800 Indwelling Urethral Catheter 800 / 800 Gastric Drainage 400 / 400 Left Lower Quadrant Gastrostomy 400 / 400 Tube (PEG) Other: Date of Last Bowel Movement 01/16/18 01/16/18 01/16/18 Result Diagrams: 01/19/18 04:30 01/19/18 04:30 Objective Remarks: GENERAL: 62-year-old cachectic male in no apparent distress. Communicating in writing. SKIN: Warm and dry. No rash HEAD: Atraumatic. Normocephalic. EYES: Pupils equal and round. No scleral icterus. No injection or drainage. ENT: No nasal bleeding or discharge. Mucous membranes pink and moist. Tongue less edematous protruding from mouth unable to open mouth lips slightly less edematous. Inability to view oral aperture or oral pharynx NECK: Trachea midline. No JVD. Noted right sided neck mass which appears to have enlarged over the past 7 days. 8.0 Shiley tracheostomy in situ CARDIOVASCULAR: Normal rate, regular rhythm. S1,. S2. No S4. Without murmur. No rubs RESPIRATORY: Currently on ventilator via tracheostomy. No accessory muscle use. Few coarse rhonchorous breath sounds appreciated. Breath sounds equal bilaterally. GASTROINTESTINAL: Abdomen soft, non-tender, slightly distended with hypoactive bowel sounds appreciated. No high-pitched sounds.. No guarding. PEG tube insitu with some exudate greenish currently to gravity MUSCULOSKELETAL: Extremities without clubbing, cyanosis, or edema. No obvious deformities. NEUROLOGICAL: Arousable on the ventilator. Follows commands in all 4 extremities. Patient nodding head to yes and no questions, writes answers on tablet paper questions. Assessment and Plan - Assessment and Plan Plan: Neuro/Psych: Acute Pain associated with head/neck cancer History of EtOH abuse Acetaminophen 650 mg every 6 hours as needed for pain and/or temperature Alprazolam 0.5 mg every 8 hours as needed for agitation Temazepam 15 mg at night as needed insomnia Continue gabapentin 300 mg every 8 hours Continue tizanidine 4 mg every 12 hours On Roxanol 4 milligram every 6 scheduled currently -hold secondary to ileus noted discontinued methadone 01/12 Oxycodone 10 mg every 4 hours as needed pain Continue morphine sulfate 2 mg IV every 2 hours as needed for breakthrough pain Respiratory: Acute on chronic hypoxic respiratory failure COPD exacerbation Lung mass/2 new right lower lobe pulmonary nodules Head and neck cancer -squamous cell carcinoma Chronic airway compromise Class IV Mallampati rating 12/20 S/P Emergent tracheostomy to secure airway, 8.0 Shiley 12/21 trach collar trials on .40% initiated. Patient placed back on CPAP 12/24 secondary to hypoxemia and worsening chest x-ray PRVC 16/500/07/01/49 As tolerated PSV trial Continue budesonide/formoterol 160/4.5 2 puffs twice daily Albuterol/ipratropium aerosols every 4 hours with albuterol aerosols every 2 hours as indicated for dyspnea Ventilator bundle chest x-ray in a.m. 01/19 Cardiovascular: History of hypertension History of hyperlipidemia Severe sepsis Continue with normal saline at 84 cc an hour. 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 Possible posterior tumor. Monitor urine output with accurate I's and O's. Discussed with urology/Dr. Barnett. Maintain Tavarez catheter per urology's recommendations. Currently is in place. FEN/GI: PEG placement 12/19 Nausea and vomiting Possible infection PEG tube History of chronic pancreatitis Cholelithiasis Hypokalemia Hypophosphatemia Hypoalbuminemia History of gastroesophageal reflux disease Ileus Glucerna 1.5 with previous 70 cc/hr. on hold due to ileus likely narcotic induced. Restart today at 20 cc goal. Lansoprazole 30 mg daily for GI prophylaxis Bowel regimen with docusate sodium 100 mg twice daily, senna 8.8 mg twice daily , polythene glycol 17 g twice daily and lactulose 30 cc twice daily and basic caudal 10 mg KS daily Currently in free water 100 cc every 8 hours to maintain PEG tube patency KUB revealed small/large bowel gas exchange. NG tube currently to suction. Recheck in a.m. 01/19 CT abdomen/pelvis revealed moderate's small bowel dilatation. Cholelithiasis. Chronic pancreatitis. Bilateral nephrolithiasis with mildly dilated renal calyces and ureter. See above Metoclopramide 10 mg every 6 hours K-Phos 30 mmol IV times now. Recheck potassium this afternoon. Heme/ID: Head and neck cancer -squamous cell carcinoma of the right tonsil E. coli UTI Normocytic anemia Leukocytosis Hematology oncology following-patient was tentatively scheduled for chemotherapy to initiate 12/20 Received carbo/Taxol. 3 rounds. Currently on hold secondary to patient refusing radiation therapy. Patient was initiated on levofloxacin and vancomycin on 12/20. now s/p full course of abx. Will treat with aztreonam, linezolid day #5. Discontinued vancomycin and metronidazole day #4. E. coli is resistant to levofloxacin 01/12 -wound -E. coli, C. albicans, Enterococcus faecalis 01/12 -urine -E. coli 01/13 -sputum -E. coli Blood culture 01/12-NGTD Endocrine: Diabetes mellitus Glucose monitoring per ICU protocol beam dose every 6 hours aspart Currently on insulin detemir 6 units at night. Holding while n.p.o. -- SSI Prophylaxis: GI Prophylaxis Lansoprazole DVT Prophylaxis -- SCDs Enoxaparin Lines: Left radial A-line dc'd 12/22, right chest [id number] continue Level 3 follow-up OVERALL IMPRESSION: continues weak improvements. needs to be OOB daily with strength and PT. work towards daily weaning of pressure support to get off ventilator.
--- NOTE | 2018-01-19 16:37 | P.DIET ---
Nutritional Evaluation Type of nutrition evaluation: follow-up Screening comments: 12/26 [facility] TF Objective - Diagnosis Hypokalemia - Indications of Malnutrition Classification: Chronic disease or injury-related Malnutrition Characteristics: Weight loss, Insufficient energy intake, Muscle loss - Objective [place] body weight: 81 kg % IBW: 72 Body Weight Used for Calculations: IBW Energy Needs - Lower Range (kCal/kg): 30 Energy Needs - Upper Range (kCal/kg): 35 Lower Limit kCal/kg (kCals): 2,430 Upper Limit kCal/kg (kCals): 2,835 Lower Limit Protein Factor (Grams per Kg): 1.2 Upper Limit Protein Factor (Grams per Kg): 1.5 Lower Protein Needs (Protein): 97 Upper Protein Needs (Protein): 122 Dietitian Reviewed in Medical Record: Curent medications, Intake & Output, Labs , Medical history, Tube feeding Diet Order: TF only Objective Comments: PMH: 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 Pt on vent with trach, has PEG for TF. TF Glucerna 1.5 was on hold for 7 days r/t ileus, pt had KUB 7/24, TF restarted today. To meet pt's nutritional needs, a goal rate of 70 ml/hr is necessary. Reviewed MD notes, labs, wts. Noted Pt is not a candidate for chemo due to his fraile state. Having discussion regarding radiation. Noted overall prognosis is poor, neck mass enlarging, pt with bacterial infection. Will continue to monitor TF tolerance, clinical course. Recommendations: TF Glucerna 1.5 restarted today, goal rate is 70 ml/hr Dietitian to Monitor: Lab values, Glucose level, Intake & Output, Tube feeding tolerance, Weight change, Medical course
--- NOTE | 2018-01-19 16:59 | P.PNURO ---
Subjective Patient symptoms today: Pt resting comfortably. Objective Vital Signs: Vital Signs 01/18/18 18:00 01/18/18 20:00 01/18/18 20:02 Temperature 99.4 F Pulse Rate 95 H 93 H Respiratory Rate 9 L 14 Blood Pressure 105/58 L Pulse Oximetry 97 01/18/18 22:00 01/18/18 23:15 01/19/18 00:00 Temperature 99.4 F Pulse Rate 94 H 87 94 H Respiratory Rate 10 L 11 L Blood Pressure 84/50 L Pulse Oximetry 95 97 01/19/18 02:00 01/19/18 03:24 01/19/18 03:41 Temperature Pulse Rate 88 93 H Respiratory Rate 12 12 Blood Pressure Pulse Oximetry 93 L 01/19/18 04:00 01/19/18 04:43 01/19/18 06:00 Temperature 99.1 F Pulse Rate 96 H 97 H Respiratory Rate 12 12 Blood Pressure 113/64 Pulse Oximetry 97 01/19/18 08:00 01/19/18 08:13 01/19/18 08:21 Temperature Pulse Rate 93 H 92 H 93 H Respiratory Rate 10 L 9 L Blood Pressure Pulse Oximetry 95 01/19/18 10:00 01/19/18 12:01 01/19/18 13:17 Temperature Pulse Rate 93 H 93 H 94 H Respiratory Rate 10 L Blood Pressure Pulse Oximetry 93 L Intake & Output 01/18/18 01/19/18 01/19/18 18:59 06:59 18:59 Intake Total 1512 / 1512 1400 / 1400 Output Total 1300 / 1300 800 / 800 Balance 212 / 212 600 / 600 Weight 66 kg Intake: IV 1512 / 1512 1400 / 1400 NS Inj 1,000 ML @ 84 mls/hr IV. 1000 / 1000 1000 / 1000 CONT .[id number] ALFRED Rx#:[id number] Azactam Inj 2 GM In NS Inj 100 200 / 200 100 / 100 ML @ 200 mls/hr IV.SIG Q8H ALFRED Rx#:[id number] Zyvox 600 mg Premix 300 ML @ 300 / 300 300 / 300 300 mls/hr IV.SIG Q12H ALFRED Rx#: [id number] KCl 40 mEq Premix Inj 40 meq In 100 ml @ 25 mls/hr IV.SIG UNSCH PRN Rx#:[id number] Oral 0 / 0 Output: Urine 900 / 900 Urine Amount (Catheter) 800 / 800 Indwelling Urethral Catheter 800 / 800 Gastric Drainage 400 / 400 Left Lower Quadrant Gastrostomy 400 / 400 Tube (PEG) Other: Date of Last Bowel Movement 01/16/18 01/16/18 01/16/18 Result Diagrams: 01/19/18 04:30 01/19/18 04:30 Imaging: Impressions Abdomen X-Ray 01/19/18 00:01 CONCLUSION: Chest X-Ray 01/19/18 06:00 CONCLUSION: Medications and IVs: Active Medications Generic Name Dose Route Start Last Admin Trade Name Freq PRN Reason Stop Dose Admin Acetaminophen 650 mg 01/13/18 16:24 Tylenol Liq G-TUBE Q6H PRN FEVER Al Hydroxide/Mg Hydroxide 30 ml 12/25/17 00:01 Milk Of Magnesia Liq PO Q12H PRN Mild Constipation Albuterol 2.5 mg 12/26/17 16:04 01/14/18 12:25 Albuterol Neb (Prn) NEB 2.5 mg Q2HR NEB PRN Administration DYSPNEA Albuterol 1 ampul 01/13/18 20:00 01/19/18 16:51 Duoneb Neb (Alfred) NEB 1 ampul Q4HR NEB ALFRED Administration Artificial Tears 1 drop 12/26/17 17:00 01/19/18 00:10 Tears Naturale Opth Drops EACH EYE 1 drop Q8H ALFRED Administration Bisacodyl 10 mg 12/25/17 00:01 Dulcolax Supp RECTAL DAILY PRN severe constipation Budesonide/Formoterol Fumarate 2 puff 12/25/17 09:00 01/19/18 08:10 Symbicort 160/4.5 Mcg Inh INH 2 puff BID ALFRED Administration Chlorhexidine Gluconate 15 ml 12/25/17 09:00 01/19/18 14:03 Peridex 0.12% Liq SWISH-SPIT Not Given BID ALFRED Dextrose 50 ml 12/25/17 00:01 D50w Vial IV.PUSH UNSCH PRN PER HYPOGLYCEMIA PROTOCOL Docusate Sodium 100 mg 12/26/17 21:00 01/19/18 09:54 Colace Liq G-TUBE 100 mg BID ALFRED Administration Enoxaparin Sodium 40 mg 01/04/18 12:00 01/19/18 11:47 Lovenox Inj SQ 40 mg Q24H ALFRED Administration Gabapentin 300 mg 12/29/17 08:15 01/19/18 05:20 Neurontin Liq PO Not Given Q8HR ALFRED Glucagon 1 mg 12/25/17 00:01 Glucagon Inj OTHER PRN PRN for Hypoglycemia Protocol Guaifenesin 400 mg 01/13/18 22:00 01/19/18 05:20 Robitussin Liq G-TUBE Not Given Q8HR ALFRED Heparin Sodium (Porcine) 500 unit 12/30/17 05:33 Heparin Central Flush IV.FLUSH PRN PRN Flush infusaport Heparin Sodium (Porcine) 250 unit 12/30/17 05:33 01/13/18 11:59 Heparin Central Flush IV.FLUSH 250 unit PRN PRN Administration Flush Infusapot Hyoscyamine 0.25 mg 01/03/18 18:00 01/19/18 11:47 Levsin PO 0.25 mg Q6HR ALFRED Administration Linezolid 300 mls @ 300 mls/hr 01/18/18 12:00 01/19/18 11:46 Zyvox 600 Mg Premix IV.SIG 300 mls/hr Q12H ALFRED Administration Dexmedetomidine HCl 200 mcg/ 50 mls @ 3 mls/hr 01/19/18 15:25 Sodium Chloride IV.CONT TITRATE PRN See Protocol Protocol 0.2 MCG/KG/HR Magnesium Sulfate Inj 4 gm/ 100 mls @ 50 mls/hr 12/25/17 00:01 Sodium Chloride IV.SIG UNSCH PRN For Magnesium 0.9 - 1.1 mg/dL Magnesium Sulfate Inj 2 gm/ 100 mls @ 50 mls/hr 12/25/17 00:01 01/19/18 05:35 Sodium Chloride IV.SIG 50 mls/hr UNSCH PRN Administration For Magnesium 1.2 - 1.6 mg/dL Potassium Chloride 40 meq in 100 mls @ 25 mls/hr 12/25/17 00:01 01/18/18 07: 15 Kcl 40 Meq Premix Inj IV.SIG Infused UNSCH PRN Infusion For Potassium 3.3 - 3.5 mEq/L Sodium Phosphate 30 mmol/ 260 mls @ 42 mls/hr 12/25/17 00:01 Sodium Chloride IV.SIG UNSCH PRN For Phosphorus < 2.5 mg/dL Potassium Phosphate 30 mmol/ 260 mls @ 42 mls/hr 12/25/17 00:01 Sodium Chloride IV.SIG UNSCH PRN SEE LABEL COMMENTS Aztreonam 2 gm/ Sodium 100 mls @ 200 mls/hr 01/13/18 18:00 01/19/18 09:54 Chloride IV.SIG 200 mls/hr Q8H ALFRED Administration Norepinephrine Bitartrate 16 250 mls @ 1.87 mls/hr 01/13/18 16:52 01/16/18 03 :00 mg/ Sodium Chloride IV.CONT 0 mcg/min TITRATE PRN 0 mls/hr See Protocol Titration Protocol 2 MCG/MIN Sodium Chloride 1,000 mls @ 84 mls/hr 01/13/18 18:00 01/19/18 05:35 Ns Inj IV.CONT 84 mls/hr .[id number] ALFRED Administration Insulin Aspart 0 unit 12/26/17 18:00 01/19/18 14:21 Novolog Insulin Suppl Scale Inj SQ Not Given Q6HR [facility] Protocol Lactulose 30 ml 12/25/17 00:01 Lactulose Liq PO DAILY PRN Severe Constipation Lactulose 30 ml 01/14/18 21:00 01/18/18 20:04 Lactulose Liq PO Not Given BID [facility] Lansoprazole 30 mg 12/27/17 09:00 01/18/18 08:04 Prevacid Solutab NG/OG 30 mg DAILY ALFRED Administration Lorazepam 0.5 mg 01/11/18 18:20 Ativan G-TUBE Q6H PRN ANXIETY Magnesium Oxide 800 mg 12/25/17 00:01 01/17/18 08:24 Mag-Ox PO 800 mg UNSCH PRN Administration For Magnesium 1.2 - 1.6 mg/dL Metoclopramide HCl 10 mg 12/25/17 00:01 01/13/18 13:47 Reglan Inj IV.PUSH 10 mg Q6H PRN Administration Nausea or Vomiting Morphine Sulfate 2 mg 01/18/18 11:30 01/19/18 11:42 Morphine Inj IV.PUSH 2 mg Q2H PRN Administration BREAKTHROUGH PAIN Morphine Sulfate 4 mg 01/11/18 20:00 01/14/18 08:00 Roxanol Liq G-TUBE 4 mg Q6H ALFRED Administration Ondansetron HCl 4 mg 12/25/17 17:35 01/12/18 18:05 Zofran Odt PO 4 mg Q6H PRN Administration NAUSEA OR VOMITING Ondansetron HCl 4 mg 01/01/18 20:02 01/13/18 11:58 Zofran Inj IV.PUSH 4 mg Q6H PRN Administration NAUSEA Oxycodone HCl 10 mg 12/25/17 00:01 01/12/18 04:23 Roxicodone PO 10 mg Q4H PRN Administration Pain Scale 3 to 5 Patch Removal 1 each 01/04/18 20:00 01/16/18 21:10 Remove Old Patch T-DERMAL 1 each Q72H ALFRED Administration Polyethylene Glycol 17 gm 01/14/18 21:00 01/18/18 20:04 Miralax G-TUBE Not Given BID ALFRED Potassium Bicarb/Potassium Chloride 50 meq 12/25/17 00:01 01/17/18 08:24 K-Lyte PO 50 meq UNSCH PRN Administration For Potassium 3.3 - 3.5 mEq/L Potassium Phosphate 2,000 mg 12/25/17 00:01 K-Phos Original PO UNSCH PRN SEE LABEL COMMENTS Promethazine HCl 25 mg 01/01/18 20:03 Phenergan Inj IM ONCE PRN breakthrough nausea Scopolamine 1 patch 01/04/18 20:00 01/16/18 21:10 Transderm-Scop 1.5 Mg Patch.72hr T-DERMAL 1 patch Q72H ALFRED Administration Sennosides 17.2 mg 12/25/17 00:01 Senokot PO Q12H PRN Moderate constipation Sennosides 8.8 mg 01/14/18 21:00 01/19/18 09:55 Senna Liq G-TUBE 8.8 mg BID ALFRED Administration Sodium Chloride 5 ml 12/30/17 05:33 Ns Flush IV.FLUSH PRN PRN Flush Infusaport Sodium Chloride 2 ml 12/25/17 00:01 Ns Flush IV.FLUSH UNSCH PRN Flush after using IV access Sodium Chloride 2 ml 12/25/17 09:00 01/18/18 21:49 Ns Flush IV.FLUSH 2 ml BID ALFRED Administration Sodium Chloride 2 ml 01/13/18 20:00 01/19/18 16:51 Sodium Chloride 3% Neb NEB 01/19/18 19:59 2 ml Q4HR NEB ALFRED Administration Sterile Water 100 ml 01/14/18 14:00 01/19/18 05:36 Free Water G-TUBE 100 ml Q8HR ALFRED Administration Temazepam 15 mg 12/25/17 18:35 01/18/18 22:45 Restoril NG/OG 15 mg HS PRN Administration INSOMNIA Terbutaline Sulfate 1 mg 01/13/18 16:52 Brethine Inj SQ UNSCH PRN For Extravasation Tizanidine HCl 4 mg 12/29/17 09:00 01/19/18 09:54 Zanaflex PO 4 mg Q12HR ALFRED Administration Objective Remarks: Abd:soft,nt,nd [place]: urine ramón in color 01/19 Abd:soft,nt,nd [place]: urine ramón in color Assessment and Plan - Plan 62 y.o male with emphysematous cystitis and Ucx with E. coli Continue Abx Maintain burleson catheter 01/19 62 y.o male with emphysematous cystitis and Ucx with E. coli Continue Abx Maintain burleson catheter for now.
--- NOTE | 2018-01-19 19:14 | P.PNPL ---
Subjective Interval history: 62 YO WM wit H&N CA,RF, Trach on vent Awake, follows commands On PSV, Fi02 45% Physical Exam Vital signs: Vital Signs 01/18/18 20:00 01/18/18 20:02 01/18/18 22:00 Temperature 99.4 F Pulse Rate 93 H 94 H Respiratory Rate 9 L 14 Blood Pressure 105/58 L Pulse Oximetry 97 01/18/18 23:15 01/19/18 00:00 01/19/18 02:00 Temperature 99.4 F Pulse Rate 87 94 H 88 Respiratory Rate 10 L 11 L Blood Pressure 84/50 L Pulse Oximetry 95 97 01/19/18 03:24 01/19/18 03:41 01/19/18 04:00 Temperature 99.1 F Pulse Rate 93 H 96 H Respiratory Rate 12 12 12 Blood Pressure 113/64 Pulse Oximetry 93 L 97 01/19/18 04:43 01/19/18 06:00 01/19/18 08:00 Temperature Pulse Rate 97 H 93 H Respiratory Rate 12 Blood Pressure Pulse Oximetry 01/19/18 08:13 01/19/18 08:21 01/19/18 10:00 Temperature Pulse Rate 92 H 93 H 93 H Respiratory Rate 10 L 9 L Blood Pressure Pulse Oximetry 95 01/19/18 12:01 01/19/18 13:17 Temperature Pulse Rate 93 H 94 H Respiratory Rate 10 L Blood Pressure Pulse Oximetry 93 L Intake & Output 01/19/18 01/19/18 01/20/18 06:59 18:59 06:59 Intake Total 1400 / 1400 Output Total 800 / 800 Balance 600 / 600 Weight 66 kg Intake: IV 1400 / 1400 NS Inj 1,000 ML @ 84 mls/hr IV. 1000 / 1000 CONT .[id number] BRENDEN Rx#:[id number] Azactam Inj 2 GM In NS Inj 100 100 / 100 ML @ 200 mls/hr IV.SIG Q8H BRENDEN Rx#:[id number] Zyvox 600 mg Premix 300 ML @ 300 / 300 300 mls/hr IV.SIG Q12H BRENDEN Rx#: [id number] Oral 0 / 0 Output: Urine Amount (Catheter) 800 / 800 Indwelling Urethral Catheter 800 / 800 Other: Date of Last Bowel Movement 01/16/18 01/16/18 GENERAL: Eldely WM,Mild SOB SKIN: Warm and dry. HEAD: Normocephalic. EYES: No scleral icterus. No injection or drainage. NECK: Supple, trachea midline. No JVD or lymphadenopathy. Neck Mass, tarch no drainage CARDIOVASCULAR: Regular rate and rhythm without murmurs, gallops, or rubs. RESPIRATORY: Breath sounds equal bilaterally. No accessory muscle use. GASTROINTESTINAL: Abdomen soft, non-tender, nondistended. Has PEG MUSCULOSKELETAL: No cyanosis, or edema. BACK: Nontender without obvious deformity. No CVA tenderness. - Urinary Catheter Management Indwelling Urethral Catheter Cath placed during this visit: yes, but has since been removed by the nurse Reason for continuing: Terminally ill/Comfort care Insertion date: 01/14/18 Insertion time: 00:00 Removal date: 01/02/18 Removal time: 07:00 Condom Cath placed during this visit: yes Reason for continuing: Acute urinary retention Insertion date: 01/14/18 Insertion time: 18:30 Assessment and Plan - Plan Resp failure, on Vent S/P Emergent trach Neck Mass H&N Ca COPD Aspiration PLAN: Vent support,PSV, Fi02 45% Wean Fi02 cont Abx Aerosol nebs Monitor Residual. Tube feeding
[2018-01-19] MEDS ORDERED: fentaNYL 10 mcg/mL Premix Drip 2,500 MCG/250 ML BAG IV.SIG PRN (19:50)
[2018-01-19] MEDS ORDERED: Midazolam 50 MG/50 ML Inj 50 MG/50 ML BAG IV.CONT PRN (19:51)
[2018-01-19] MEDS: Scopalamine 1.5 MG Patch T-DERMAL SCH (20:29)
[2018-01-19] MEDS: [UNRECOGNIZED DRUG - REMARK] T-DERMAL SCH (20:29)
[2018-01-20] MEDS: Gabapentin Liq 250 MG/5 ML UDC PO SCH ×3 (00:02→21:40)
[2018-01-20] MEDS: Artificial Tears Opth Drops 15 ML Bottle EACH EYE SCH ×2 (00:02→14:56)
[2018-01-20] MEDS: Insulin NovoLOG Aspart Correctional Sugar Inj SQ SCH ×2 (00:12→06:30)
[2018-01-20] MEDS: Aztreonam Inj 2 GM in Sodium Chloride 0.9% Inj 100 ML IV.SIG SCH ×2 (01:59)
[2018-01-20] MEDS: Sod Chloride 0.9% Inj 1,000 ML IV.CONT SCH (06:36)
[2018-01-20] MEDS: Budesonide-Formoterol 160/4.5 MCG 6 GM Inhaler INH SCH ×2 (08:48→20:30)
--- NOTE | 2018-01-20 09:42 | P.PNPL ---
Subjective Interval history: 62 YO WM wit H&N CA,RF, Trach on vent Awake, follows commands On PSV, Fi02 50% Went for radiation yesterday, became agitated, did't tolerate it Has Bloody trach secretions. Physical Exam Vital signs: Vital Signs 01/19/18 10:00 01/19/18 12:01 01/19/18 13:17 Temperature Pulse Rate 93 H 93 H 94 H Respiratory Rate 10 L Blood Pressure Pulse Oximetry 93 L 01/19/18 15:16 01/19/18 15:30 01/19/18 15:45 Temperature Pulse Rate 99 H 97 H 97 H Respiratory Rate 20 16 17 Blood Pressure 117/67 120/66 124/72 Pulse Oximetry 92 L 92 L 92 L 01/19/18 16:00 01/19/18 16:15 01/19/18 16:30 Temperature Pulse Rate 97 H 98 H 96 H Respiratory Rate 17 19 15 Blood Pressure 126/71 129/72 126/68 Pulse Oximetry 92 L 92 L 93 L 01/19/18 16:45 01/19/18 16:50 01/19/18 17:00 Temperature Pulse Rate 98 H 98 H 99 H Respiratory Rate 14 13 15 Blood Pressure 127/63 137/74 Pulse Oximetry 92 L 94 L 93 L 01/19/18 17:15 01/19/18 17:30 01/19/18 17:45 Temperature Pulse Rate 96 H 96 H 101 H Respiratory Rate 13 12 15 Blood Pressure 129/68 124/69 127/76 Pulse Oximetry 93 L 01/19/18 18:00 01/19/18 18:15 01/19/18 18:30 Temperature Pulse Rate 103 H 105 H 120 H Respiratory Rate 29 H 16 23 Blood Pressure 141/72 H 189/109 H Pulse Oximetry 97 96 01/19/18 18:45 01/19/18 19:00 01/19/18 19:07 Temperature Pulse Rate 118 H 112 H 110 H Respiratory Rate 21 21 19 Blood Pressure 146/77 H 134/73 126/69 Pulse Oximetry 99 94 L 01/19/18 19:15 01/19/18 19:30 01/19/18 19:45 Temperature Pulse Rate 109 H 108 H 107 H Respiratory Rate 16 16 14 Blood Pressure 114/66 117/72 122/64 Pulse Oximetry 92 L 94 L 94 L 01/19/18 20:00 01/19/18 20:15 01/19/18 20:30 Temperature Pulse Rate 107 H 103 H 101 H Respiratory Rate 15 15 14 Blood Pressure 128/73 113/62 107/62 Pulse Oximetry 94 L 94 L 93 L 01/19/18 20:45 01/19/18 21:00 01/19/18 22:00 Temperature Pulse Rate 104 H 104 H 101 H Respiratory Rate 13 15 Blood Pressure 115/67 112/69 Pulse Oximetry 93 L 01/20/18 00:00 01/20/18 01:45 01/20/18 02:00 Temperature 98.3 F Pulse Rate 109 H 102 H 102 H Respiratory Rate 15 14 Blood Pressure 106/57 L Pulse Oximetry 98 94 L 01/20/18 03:00 01/20/18 04:00 01/20/18 06:00 Temperature 98.0 F Pulse Rate 107 H 108 H 112 H Respiratory Rate 16 15 Blood Pressure 131/59 L Pulse Oximetry 98 01/20/18 07:00 01/20/18 08:00 01/20/18 08:49 Temperature Pulse Rate 102 H 102 H Respiratory Rate 18 17 18 Blood Pressure Pulse Oximetry 94 L Intake & Output 01/19/18 01/20/18 01/20/18 18:59 06:59 18:59 Intake Total 1030 / 1030 2488 / 2488 Output Total 300 / 300 Balance 1030 / 1030 2188 / 2188 Weight 68.5 kg Intake: IV 1000 / 1000 1900 / 1900 NS Inj 1,000 ML @ 84 mls/hr IV. 1000 / 1000 1000 / 1000 CONT .[id number] BRENDEN Rx#:[id number] Azactam Inj 2 GM In NS Inj 100 200 / 200 ML @ 200 mls/hr IV.SIG Q8H BRENDEN Rx#:[id number] Zyvox 600 mg Premix 300 ML @ 600 / 600 300 mls/hr IV.SIG Q12H BRENDEN Rx#: [id number] Magnesium Sulfate Inj 2 GM In 100 / 100 NS Inj 96 ML @ 50 mls/hr IV.SIG UNSCH PRN Rx#:[id number] Oral 0 / 0 Tube Feeding 30 / 30 188 / 188 Water Bolus Amount 400 / 400 Output: Urine Amount (Catheter) 300 / 300 Indwelling Urethral Catheter 300 / 300 Other: Date of Last Bowel Movement 01/16/18 01/16/18 GENERAL: Elderly WM,mild sob SKIN: Warm and dry. HEAD: Normocephalic. EYES: No scleral icterus. No injection or drainage. NECK: Supple, trachea midline. No JVD or lymphadenopathy. Neck mass Bloody trach secretions CARDIOVASCULAR: Regular rate and rhythm without murmurs, gallops, or rubs. RESPIRATORY: Breath sounds equal bilaterally. No accessory muscle use. GASTROINTESTINAL: Abdomen soft, non-tender, nondistended. MUSCULOSKELETAL: No cyanosis, or edema. BACK: Nontender without obvious deformity. No CVA tenderness. - Urinary Catheter Management Indwelling Urethral Catheter Cath placed during this visit: yes, but has since been removed by the nurse Reason for continuing: Terminally ill/Comfort care Insertion date: 01/14/18 Insertion time: 00:00 Removal date: 01/02/18 Removal time: 07:00 Condom Cath placed during this visit: yes Reason for continuing: Acute urinary retention Insertion date: 01/14/18 Insertion time: 18:30 Assessment and Plan - Plan Resp failure, on Vent S/P Emergent trach Neck Mass H&N Ca COPD Aspiration PLAN: Vent support,PSV, Fi02 45% Wean Fi02 cont Abx Aerosol nebs Monitor Residual. Tube feeding Radiation treatment today.
--- NOTE | 2018-01-20 13:06 | P.PNCC ---
Subjective Subjective Remarks/Hospital Course: Remarks/Hospital Course This is a 62-year-old male with a past medical history of squamous cell carcinoma of the head and neck, lung mass COPD, hypertension diabetes with a history of tobacco abuse, that presented on 12/18. The patient regularly is seen at the [facility] however he was not afforded treatment at this time . The patient was admitted to the medical floor, hematology oncology had been consulted plans were for chemotherapy to be initiated today the patient underwent PEG placement yesterday. Late this afternoon the patient was noted to be hypoxemic with significant airway edema , O2 sat in the 80's, Pao2 59 on 100% nonrebreather ,in the setting of a large tumor mass .A Halicat was called , and the [place] was emerg[place] [facility] [place] the patient was immediately out evaluated and noted to be in significant respiratory distress, oral airway significantly edematous tongue protruding out of mouth Mallampati unobtainable upon evaluation. The patient appeared to be alert and could not yes and no to questions unable to speak. Quick assessment of CT scans that were previously done of the neck showed a large tumor mass crossing midline. Dr. Cabello , Anesthesiologist in to evaluate patient at bedside discussed case with him. Emergency airway equipment placed at bedside trauma surgery was notified I spoke with Dr. Rangel, patient emergently scheduled for tracheostomy to secure airway. A left radial A-line was placed ABG on 100% nonrebreather was obtained prior to going PaO2 had risen to 60 on nonrebreather mask. 12/21: No acute events overnight. The patient underwent emergency tracheostomy to secure the airway last evening. Norepinephrine and fentanyl infusions have been discontinued this morning patient has been transitioned onto CPAP trials and denies any discomfort. Patient is communicating with board and marker. PEG tube in situ tube feedings Glucerna currently at 30 cc/an hour continue to be advanced to goal. FiO2 has been decreased to .45% 12/22: No acute events overnight. The patient was maintained on CPAP trials throughout the night and this afternoon plan trach collar trials this afternoon PT OT has been initiated. Patient tolerating tube feeds no residuals. 12/23: Patient progressing well currently on trach collar trials greater than 24 hours. Patient tolerating tube feeds diet. Chemotherapy initiated yesterday. Patient denies pain. 12/24: Late entry note patient seen at 11:40 AM. Overnight the patient became agitated pulling off lines and tubes. Patient had previous stated that he has an anxiety disorder ,Xanax was ordered however not given. Upon my evaluation this a.m. O2 saturation noted to be low patient placed on FiO2 of 80% stat ABG was performed to reveal hypoxemia the patient was placed back on CPAP stat chest x-ray was performed which showed worsening airspace disease in the bases. 12/25: Patient noted with episodes of nausea, tube feeds held. Zofran given for nausea. The patient continues to have increased FiO2 requirements the patient is being placed on trach collar during the day CPAP at night. 12/26: Vitals not documented. Currently on CPAP 10/5 and 40%. No bowel movements documented. Not on a bowel regimen. 12/27: Remains on mechanical ventilation via tracheostomy. On CPAP trials. 12/28: no changes. still with cpap trials. 12/29: tolerating t-piece trials. rested on cpap overnight. complaints of continued pain around tumor site, as well as significant secretions. 12/30: clinically doing well. denies complaints. asked that speech re-evaluate him because he would like to start eating real food again. plan for XRT to start today. 12/31: On mechanical ventilation via trach. Tolerating T piece trials 01/01: Remains on mechanical ventilation via trach. 01/02: On T-piece. Awaiting radiation today 01/13: Reconsult due to hypotension/aspiration with worsening oxygenation. Patient replaced back on the ventilator via tracheostomy with cuff inflated. Of note, patient has been refusing radiation therapy and his chemotherapy has been held for that reason by oncology. Patient with urinary tract infection/ becoming septic with possible infected PEG site as well. 01/14: Patient plan for CT abdomen/pelvis today. White blood cell count improved. Remains on ventilator. Greater than 1 L from G-tube to drainage overnight 01/15: Afebrile. Noted CT abdomen/pelvis revealed emphysematous cystitis. Discussed with urology. Tavarez has been placed. Will evaluate today. Currently on low-dose norepinephrine. Continues to have ileus. 01/16: Patient requesting additional pain medication. G2 -200 cc. Recheck KUB today. White cell count is normalized. Off vasopressors. 01/17: Resting complaint bed in no acute distress. Complaining of pain in neck. Off all vasopressors. We will restart tube feeds today at 20 cc an hour goal. Subjective: 01/18: T-max 99.7. -350 per G-tube overnight. No bowel movement yesterday. Tumor is right neck appears to be enlarging. Very painful. Will restart tube feeds at 20 cc an hour today. Oxycodone by tube for pain management. 01/20: did not tolerate radiation therapy due to anxiety and pain. have ordered sedation for future treatments. no other changes. some mild bloody trach secretions today s/p XRT, though no active bleeding noted. Objective Vital Signs / I&O: Vital Signs 01/19/18 13:17 01/19/18 15:16 01/19/18 15:30 Temperature Pulse Rate 94 H 99 H 97 H Respiratory Rate 10 L 20 16 Blood Pressure 117/67 120/66 Pulse Oximetry 93 L 92 L 92 L 01/19/18 15:45 01/19/18 16:00 01/19/18 16:15 Temperature Pulse Rate 97 H 97 H 98 H Respiratory Rate 17 17 19 Blood Pressure 124/72 126/71 129/72 Pulse Oximetry 92 L 92 L 92 L 01/19/18 16:30 01/19/18 16:45 01/19/18 16:50 Temperature Pulse Rate 96 H 98 H 98 H Respiratory Rate 15 14 13 Blood Pressure 126/68 127/63 Pulse Oximetry 93 L 92 L 94 L 01/19/18 17:00 01/19/18 17:15 01/19/18 17:30 Temperature Pulse Rate 99 H 96 H 96 H Respiratory Rate 15 13 12 Blood Pressure 137/74 129/68 124/69 Pulse Oximetry 93 L 93 L 01/19/18 17:45 01/19/18 18:00 01/19/18 18:15 Temperature Pulse Rate 101 H 103 H 105 H Respiratory Rate 15 29 H 16 Blood Pressure 127/76 141/72 H Pulse Oximetry 97 96 01/19/18 18:30 01/19/18 18:45 01/19/18 19:00 Temperature Pulse Rate 120 H 118 H 112 H Respiratory Rate 23 21 21 Blood Pressure 189/109 H 146/77 H 134/73 Pulse Oximetry 99 01/19/18 19:07 01/19/18 19:15 01/19/18 19:30 Temperature Pulse Rate 110 H 109 H 108 H Respiratory Rate 19 16 16 Blood Pressure 126/69 114/66 117/72 Pulse Oximetry 94 L 92 L 94 L 01/19/18 19:45 01/19/18 20:00 01/19/18 20:15 Temperature Pulse Rate 107 H 107 H 103 H Respiratory Rate 14 15 15 Blood Pressure 122/64 128/73 113/62 Pulse Oximetry 94 L 94 L 94 L 01/19/18 20:30 01/19/18 20:45 01/19/18 21:00 Temperature Pulse Rate 101 H 104 H 104 H Respiratory Rate 14 13 15 Blood Pressure 107/62 115/67 112/69 Pulse Oximetry 93 L 93 L 01/19/18 22:00 01/20/18 00:00 01/20/18 01:45 Temperature 36.8 C Pulse Rate 101 H 109 H 102 H Respiratory Rate 15 14 Blood Pressure 106/57 L Pulse Oximetry 98 94 L 01/20/18 02:00 01/20/18 03:00 01/20/18 04:00 Temperature 36.7 C Pulse Rate 102 H 107 H 108 H Respiratory Rate 16 15 Blood Pressure 131/59 L Pulse Oximetry 98 01/20/18 06:00 01/20/18 07:00 01/20/18 08:00 Temperature Pulse Rate 112 H 102 H 110 H Respiratory Rate 18 15 Blood Pressure Pulse Oximetry 94 L 01/20/18 08:49 01/20/18 10:00 01/20/18 11:00 Temperature Pulse Rate 102 H 101 H 97 H Respiratory Rate 18 18 Blood Pressure Pulse Oximetry 01/20/18 12:03 Temperature Pulse Rate Respiratory Rate Blood Pressure Pulse Oximetry 95 Intake & Output 01/19/18 01/20/18 01/20/18 18:59 06:59 18:59 Intake Total 1030 / 1030 2488 / 2488 Output Total 300 / 300 Balance 1030 / 1030 2188 / 2188 Weight 68.5 kg Intake: IV 1000 / 1000 1900 / 1900 NS Inj 1,000 ML @ 84 mls/hr IV. 1000 / 1000 1000 / 1000 CONT .[id number] BRENDEN Rx#:[id number] Azactam Inj 2 GM In NS Inj 100 200 / 200 ML @ 200 mls/hr IV.SIG Q8H BRENDEN Rx#:[id number] Zyvox 600 mg Premix 300 ML @ 600 / 600 300 mls/hr IV.SIG Q12H BRENDEN Rx#: [id number] Magnesium Sulfate Inj 2 GM In 100 / 100 NS Inj 96 ML @ 50 mls/hr IV.SIG UNSCH PRN Rx#:[id number] Oral 0 / 0 Tube Feeding 188 / 188 Water Bolus Amount 400 / 400 Output: Urine Amount (Catheter) 300 / 300 Indwelling Urethral Catheter 300 / 300 Other: Date of Last Bowel Movement 01/16/18 01/16/18 01/20/18 Result Diagrams: 01/19/18 04:30 01/19/18 04:30 Objective Remarks: GENERAL: 62-year-old cachectic male in no apparent distress. Communicating in writing. SKIN: Warm and dry. No rash HEAD: Atraumatic. Normocephalic. EYES: Pupils equal and round. No scleral icterus. No injection or drainage. ENT: No nasal bleeding or discharge. Mucous membranes pink and moist. Tongue less edematous protruding from mouth unable to open mouth lips slightly less edematous. Inability to view oral aperture or oral pharynx NECK: Trachea midline. No JVD. Noted right sided neck mass which appears to have enlarged over the past 7 days. 8.0 Shiley tracheostomy in situ CARDIOVASCULAR: Normal rate, regular rhythm. sinus RESPIRATORY: Currently on ventilator via tracheostomy. No accessory muscle use. Few coarse rhonchorous breath sounds appreciated. Breath sounds equal bilaterally. GASTROINTESTINAL: Abdomen soft, non-tender, nondistended.. No guarding. PEG tube insitu with some exudate greenish currently to gravity MUSCULOSKELETAL: Extremities without clubbing, cyanosis, or edema. No obvious deformities. NEUROLOGICAL: Arousable on the ventilator. Follows commands in all 4 extremities. Patient nodding head to yes and no questions, writes answers on tablet paper questions. Assessment and Plan - Assessment and Plan Plan: Neuro/Psych: Acute Pain associated with head/neck cancer History of EtOH abuse Anxiety associated with XRT Acetaminophen 650 mg every 6 hours as needed for pain and/or temperature Alprazolam 0.5 mg every 8 hours as needed for agitation Temazepam 15 mg at night as needed insomnia Continue gabapentin 300 mg every 8 hours Continue tizanidine 4 mg every 12 hours On Roxanol 4 milligram every 6 scheduled currently -hold secondary to ileus noted discontinued methadone 01/12 Oxycodone 10 mg every 4 hours as needed pain Continue morphine sulfate 2 mg IV every 2 hours as needed for breakthrough pain fentanyl and versed as needed for XRT. no sedation when not in XRT. Respiratory: Acute on chronic hypoxic respiratory failure COPD exacerbation Lung mass/2 new right lower lobe pulmonary nodules Head and neck cancer -squamous cell carcinoma Chronic airway compromise Class IV Mallampati rating 12/20 S/P Emergent tracheostomy to secure airway, 8.0 Shiley 12/21 trach collar trials on .40% initiated. Patient placed back on CPAP 12/24 secondary to hypoxemia and worsening chest x-ray As tolerated PSV trial: wean to trach collar as able. 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 Possible posterior tumor. Monitor urine output with accurate I's and O's. Discussed with urology/Dr. Barnett. Maintain Tavarez catheter per urology's recommendations. Currently is in place. FEN/GI: PEG placement 12/19 Nausea and vomiting Possible infection PEG tube History of chronic pancreatitis Cholelithiasis Hypokalemia Hypophosphatemia Hypoalbuminemia History of gastroesophageal reflux disease Ileus Glucerna 1.5 with previous 70 cc/hr. continue to increase as tolerated. Lansoprazole 30 mg daily for GI prophylaxis Bowel regimen with docusate sodium 100 mg twice daily, senna 8.8 mg twice daily , polythene glycol 17 g twice daily and lactulose 30 cc twice daily and basic caudal 10 mg MI daily Currently in free water 100 cc every 8 hours to maintain PEG tube patency KUB revealed small/large bowel gas exchange. NG tube currently to suction. Recheck in a.m. 01/19 CT abdomen/pelvis revealed moderate's small bowel dilatation. Cholelithiasis. Chronic pancreatitis. Bilateral nephrolithiasis with mildly dilated renal calyces and ureter. See above Metoclopramide 10 mg every 6 hours K-Phos 30 mmol IV times now. Recheck potassium this afternoon. Heme/ID: Head and neck cancer -squamous cell carcinoma of the right tonsil E. coli UTI Normocytic anemia Leukocytosis Hematology oncology following-patient was tentatively scheduled for chemotherapy to initiate 12/20 Received carbo/Taxol. 3 rounds. Currently on hold secondary to patient refusing radiation therapy. Patient was initiated on levofloxacin and vancomycin on 12/20. now s/p full course of abx. Will treat with aztreonam, linezolid day #6. Discontinued vancomycin and metronidazole day #4. E. coli is resistant to levofloxacin 01/12 -wound -E. coli, C. albicans, Enterococcus faecalis 01/12 -urine -E. coli 01/13 -sputum -E. coli Blood culture 01/12-NGTD Endocrine: Diabetes mellitus Glucose monitoring per ICU protocol beam dose every 6 hours aspart Currently on insulin detemir 6 units at night. Holding while n.p.o. -- SSI Prophylaxis: GI Prophylaxis Lansoprazole DVT Prophylaxis -- SCDs Enoxaparin Lines: Left radial A-line dc'd 12/22, right chest [id number] continue OVERALL IMPRESSION: continues weak improvements. needs to be OOB daily with strength and PT. work towards daily weaning of pressure support to get off ventilator. sedation for XRT only: does not need sedation when not in XRT.
[2018-01-20] MEDS: Docusate Sodium Liq 100 MG/10 ML UDC G-TUBE SCH ×2 (14:56→21:41)
[2018-01-20] MEDS: Sennosides Liq 8.8 MG/5 ML UDC G-TUBE SCH ×2 (14:57→21:42)
[2018-01-20] MEDS: Polyethylene Glycol 3350 17 GM Packet G-TUBE SCH ×2 (14:57→21:41)
[2018-01-20] MEDS: Chlorhexidine Gluconate 0.12% Liq 15 ML UDC SWISH-SPIT SCH ×2 (14:57→21:42)
[2018-01-20] MEDS: Morphine Sulfate Oral Liq 10 MG/0.5 ML Syringe G-TUBE SCH (20:00)
[2018-01-20] MEDS: Temazepam 15 MG Capsule NG/OG PRN (23:20)
[2018-01-20] MEDS: Sod Chloride 0.9% Inj 1,000 ML IV.SIG SCH (23:45)
[2018-01-21] MEDS: Artificial Tears Opth Drops 15 ML Bottle EACH EYE SCH ×5 (00:17→21:22)
[2018-01-21] MEDS: Insulin NovoLOG Aspart Correctional Sugar Inj SQ SCH ×6 (00:19→21:22)
[2018-01-21] MEDS: Morphine Inj 4 MG/ML Vial IV.PUSH PRN ×6 (00:20→21:20)
[2018-01-21] MEDS: Sod Chloride 0.9% Inj 1,000 ML IV.SIG SCH (00:45)
[2018-01-21] MEDS: Aztreonam Inj 2 GM in Sodium Chloride 0.9% Inj 100 ML IV.SIG SCH ×3 (01:00→21:23)
[2018-01-21] MEDS: Gabapentin Liq 250 MG/5 ML UDC PO SCH ×4 (05:56→21:25)
[2018-01-21] MEDS: Morphine Sulfate Oral Liq 10 MG/0.5 ML Syringe G-TUBE SCH ×5 (05:56→22:20)
[2018-01-21] MEDS: Chlorhexidine Gluconate 0.12% Liq 15 ML UDC SWISH-SPIT SCH ×2 (08:27→21:25)
[2018-01-21] MEDS: Docusate Sodium Liq 100 MG/10 ML UDC G-TUBE SCH ×2 (08:30→21:26)
[2018-01-21] MEDS: Polyethylene Glycol 3350 17 GM Packet G-TUBE SCH ×2 (08:31→21:27)
[2018-01-21] MEDS: Budesonide-Formoterol 160/4.5 MCG 6 GM Inhaler INH SCH ×2 (09:48→21:29)
--- NOTE | 2018-01-21 10:54 | P.PNPL ---
Subjective Interval history: Patient remains on ventilator via trach on no drips. Tolerated TP's yesterday for 8 hrs. Afebrile. Started on Levophed 5 mics last night MAP 76mmHg currently. Physical Exam Vital signs: Vital Signs 01/20/18 11:00 01/20/18 12:00 01/20/18 12:03 Temperature Pulse Rate 99 H 97 H Respiratory Rate 18 17 Blood Pressure 92/55 L 83/52 L Pulse Oximetry 93 L 84 L 95 01/20/18 13:00 01/20/18 14:00 01/20/18 15:00 Temperature Pulse Rate 106 H 107 H 104 H Respiratory Rate 18 18 18 Blood Pressure 88/54 L 95/52 L 100/56 L Pulse Oximetry 89 L 91 L 01/20/18 16:00 01/20/18 17:00 01/20/18 18:00 Temperature Pulse Rate 108 H 105 H 101 H Respiratory Rate 22 17 17 Blood Pressure 101/57 L 106/56 L 102/59 L Pulse Oximetry 94 L 94 L 93 L 01/20/18 19:00 01/20/18 19:01 01/20/18 19:07 Temperature Pulse Rate 100 H 99 H Respiratory Rate 17 15 Blood Pressure 83/47 L 101/57 L Pulse Oximetry 97 97 95 01/20/18 19:15 01/20/18 19:30 01/20/18 19:45 Temperature Pulse Rate 96 H 94 H 93 H Respiratory Rate 16 17 17 Blood Pressure 97/55 L 83/53 L 81/53 L Pulse Oximetry 96 95 95 01/20/18 20:00 01/20/18 20:15 01/20/18 20:19 Temperature Pulse Rate 90 91 H 91 H Respiratory Rate 17 21 13 Blood Pressure 67/49 L 72/52 L Pulse Oximetry 95 96 93 L 01/20/18 22:00 01/20/18 23:50 01/21/18 00:00 Temperature 98.5 F Pulse Rate 91 H 83 Respiratory Rate 16 16 Blood Pressure 76/52 L Pulse Oximetry 93 L 94 L 01/21/18 02:00 01/21/18 03:45 01/21/18 04:00 Temperature 98.7 F Pulse Rate 100 H 103 H Respiratory Rate 13 18 Blood Pressure 108/60 Pulse Oximetry 93 L 97 01/21/18 06:00 01/21/18 09:31 01/21/18 09:52 Temperature Pulse Rate 101 H Respiratory Rate 18 14 Blood Pressure Pulse Oximetry 100 99 Intake & Output 01/20/18 01/21/18 01/21/18 18:59 06:59 18:59 Intake Total 785 / 785 1437 / 1437 Output Total 875 / 875 800 / 800 Balance -90 / -90 637 / 637 Weight 68 kg Intake: IV 1100 / 1100 Azactam Inj 2 GM In NS Inj 100 100 / 100 ML @ 200 mls/hr IV.SIG Q8H BRENDEN Rx#:[id number] NS Inj 1,000 ML @ 1000 mls/hr 1000 / 1000 IV.SIG .Q1H BRENDEN Rx#:[id number] Tube Feeding 385 / 385 337 / 337 Tube Irrigant 400 / 400 Output: Stool 100 / 100 Urine Amount (Catheter) 875 / 875 700 / 700 Indwelling Urethral Catheter 875 / 875 700 / 700 Other: Date of Last Bowel Movement 01/20/18 01/20/18 - Constitutional no acute distress - Routine HEENT Exam Head: Present: normocephalic, atraumatic Eye: Present: EOMI, PERRL, conjunctivae pink ENT: Present: mucous membranes moist - Routine Neck Exam Present: supple, full ROM, trachea midline - Routine Respiratory Exam Present: patient mechanically ventilated, CTA bilaterally - Routine Cardiovascular Exam Present: RRR, S1, S2 - Routine Abdominal Exam Present: soft, normoactive bowel sounds - Routine Extremities Exam Present: full ROM, pulses intact - Routine Skin Exam Present: intact - Routine Neurological Exam Present: alert, oriented X3, CN II-XII intact - Urinary Catheter Management Indwelling Urethral Catheter Cath placed during this visit: yes, but has since been removed by the nurse Reason for continuing: Terminally ill/Comfort care Insertion date: 01/14/18 Insertion time: 00:00 Removal date: 01/02/18 Removal time: 07:00 Condom Cath placed during this visit: yes Reason for continuing: Acute urinary retention Insertion date: 01/14/18 Insertion time: 18:30 Assessment and Plan - Plan 1)VDRF s/p trach/PEG 2)Head and neck ca 3)COPD 4)Aspiration 5)Leukocytosis 6)UTI PLAN: Continue with vent support keep sats >92% Bronchodilators SBT /TP's daily as kira. Pulm toilet, trach care cont Abx ( Aztreonam, Zyvox) [facility] for signs of infections ( Fever, WBC) Sputum cx 01/13: E.coli, recheck sputum cx Wean off Levophed keep MAP>65mmHg For possible Radiation treatment today. Continue tube feeds via PEG tube. GI/DVT prophylaxis- on Lovenox SQ
--- NOTE | 2018-01-21 12:00 | P.PNCC ---
Subjective Subjective Remarks/Hospital Course: Remarks/Hospital Course This is a 62-year-old male with a past medical history of squamous cell carcinoma of the head and neck, lung mass COPD, hypertension diabetes with a history of tobacco abuse, that presented on 12/18. The patient regularly is seen at the [facility] however he was not afforded treatment at this time . The patient was admitted to the medical floor, hematology oncology had been consulted plans were for chemotherapy to be initiated today the patient underwent PEG placement yesterday. Late this afternoon the patient was noted to be hypoxemic with significant airway edema , O2 sat in the 80's, Pao2 59 on 100% nonrebreather ,in the setting of a large tumor mass .A Halicat was called , and the patient was emergently transferred to [facility] [place]. Upon transfer the patient was immediately out evaluated and noted to be in significant respiratory distress, oral airway significantly edematous tongue protruding out of mouth Mallampati unobtainable upon evaluation. The patient appeared to be alert and could not yes and no to questions unable to speak. Quick assessment of CT scans that were previously done of the neck showed a large tumor mass crossing midline. Dr. Cabello , Anesthesiologist in to evaluate patient at bedside discussed case with him. Emergency airway equipment placed at bedside trauma surgery was notified I spoke with Dr. Rangel, patient emergently scheduled for tracheostomy to secure airway. A left radial A-line was placed ABG on 100% nonrebreather was obtained prior to going PaO2 had risen to 60 on nonrebreather mask. 12/21: No acute events overnight. The patient underwent emergency tracheostomy to secure the airway last evening. Norepinephrine and fentanyl infusions have been discontinued this morning patient has been transitioned onto CPAP trials and denies any discomfort. Patient is communicating with board and marker. PEG tube in situ tube feedings Glucerna currently at 30 cc/an hour continue to be advanced to goal. FiO2 has been decreased to .45% 12/22: No acute events overnight. The patient was maintained on CPAP trials throughout the night and this afternoon plan trach collar trials this afternoon PT OT has been initiated. Patient tolerating tube feeds no residuals. 12/23: Patient progressing well currently on trach collar trials greater than 24 hours. Patient tolerating tube feeds diet. Chemotherapy initiated yesterday. Patient denies pain. 12/24: Late entry note patient seen at 11:40 AM. Overnight the patient became agitated pulling off lines and tubes. Patient had previous stated that he has an anxiety disorder ,Xanax was ordered however not given. Upon my evaluation this a.m. O2 saturation noted to be low patient placed on FiO2 of 80% stat ABG was performed to reveal hypoxemia the patient was placed back on CPAP stat chest x-ray was performed which showed worsening airspace disease in the bases. 12/25: Patient noted with episodes of nausea, tube feeds held. Zofran given for nausea. The patient continues to have increased FiO2 requirements the patient is being placed on trach collar during the day CPAP at night. 12/26: Vitals not documented. Currently on CPAP 10/5 and 40%. No bowel movements documented. Not on a bowel regimen. 12/27: Remains on mechanical ventilation via tracheostomy. On CPAP trials. 12/28: no changes. still with cpap trials. 12/29: tolerating t-piece trials. rested on cpap overnight. complaints of continued pain around tumor site, as well as significant secretions. 12/30: clinically doing well. denies complaints. asked that speech re-evaluate him because he would like to start eating real food again. plan for XRT to start today. 12/31: On mechanical ventilation via trach. Tolerating T piece trials 01/01: Remains on mechanical ventilation via trach. 01/02: On T-piece. Awaiting radiation today 01/13: Reconsult due to hypotension/aspiration with worsening oxygenation. Patient replaced back on the ventilator via tracheostomy with cuff inflated. Of note, patient has been refusing radiation therapy and his chemotherapy has been held for that reason by oncology. Patient with urinary tract infection/ becoming septic with possible infected PEG site as well. 01/14: Patient plan for CT abdomen/pelvis today. White blood cell count improved. Remains on ventilator. Greater than 1 L from G-tube to drainage overnight 01/15: Afebrile. Noted CT abdomen/pelvis revealed emphysematous cystitis. Discussed with urology. Tavarez has been placed. Will evaluate today. Currently on low-dose norepinephrine. Continues to have ileus. 01/16: Patient requesting additional pain medication. G2 -200 cc. Recheck KUB today. White cell count is normalized. Off vasopressors. 01/17: Resting complaint bed in no acute distress. Complaining of pain in neck. Off all vasopressors. We will restart tube feeds today at 20 cc an hour goal. 01/18: T-max 99.7. -350 per G-tube overnight. No bowel movement yesterday. Tumor is right neck appears to be enlarging. Very painful. Will restart tube feeds at 20 cc an hour today. Oxycodone by tube for pain management. 01/20: did not tolerate radiation therapy due to anxiety and pain. have ordered sedation for future treatments. no other changes. some mild bloody trach secretions today s/p XRT, though no active bleeding noted. Subjective: 01/21: no changes. back on vent overnight. back to t-piece during the day. radiation therapy again today. requires deep sedation for XRT due to severe anxiety. Objective Vital Signs / I&O: Vital Signs 01/20/18 12:00 01/20/18 12:03 01/20/18 13:00 Temperature Pulse Rate 97 H 106 H Respiratory Rate 17 18 Blood Pressure 83/52 L 88/54 L Pulse Oximetry 84 L 95 89 L 01/20/18 14:00 01/20/18 15:00 01/20/18 16:00 Temperature Pulse Rate 107 H 104 H 108 H Respiratory Rate 18 18 22 Blood Pressure 95/52 L 100/56 L 101/57 L Pulse Oximetry 91 L 94 L 01/20/18 17:00 01/20/18 18:00 01/20/18 19:00 Temperature Pulse Rate 105 H 101 H Respiratory Rate 17 17 Blood Pressure 106/56 L 102/59 L Pulse Oximetry 94 L 93 L 97 01/20/18 19:01 01/20/18 19:07 01/20/18 19:15 Temperature Pulse Rate 100 H 99 H 96 H Respiratory Rate 17 15 16 Blood Pressure 83/47 L 101/57 L 97/55 L Pulse Oximetry 97 95 96 01/20/18 19:30 01/20/18 19:45 01/20/18 20:00 Temperature Pulse Rate 94 H 93 H 90 Respiratory Rate 17 17 17 Blood Pressure 83/53 L 81/53 L 67/49 L Pulse Oximetry 95 95 95 01/20/18 20:15 01/20/18 20:19 01/20/18 22:00 Temperature Pulse Rate 91 H 91 H 91 H Respiratory Rate 21 13 Blood Pressure 72/52 L Pulse Oximetry 96 93 L 01/20/18 23:50 01/21/18 00:00 01/21/18 02:00 Temperature 36.9 C Pulse Rate 83 100 H Respiratory Rate 16 16 Blood Pressure 76/52 L Pulse Oximetry 93 L 94 L 01/21/18 03:45 01/21/18 04:00 01/21/18 06:00 Temperature 37.1 C Pulse Rate 103 H 101 H Respiratory Rate 13 18 18 Blood Pressure 108/60 Pulse Oximetry 93 L 97 01/21/18 09:31 01/21/18 09:52 Temperature Pulse Rate Respiratory Rate 14 Blood Pressure Pulse Oximetry 100 99 Intake & Output 01/20/18 01/21/18 01/21/18 18:59 06:59 18:59 Intake Total 785 / 785 1437 / 1437 Output Total 875 / 875 800 / 800 Balance -90 / -90 637 / 637 Weight 68 kg Intake: IV 1100 / 1100 Azactam Inj 2 GM In NS Inj 100 100 / 100 ML @ 200 mls/hr IV.SIG Q8H BRENDEN Rx#:[id number] NS Inj 1,000 ML @ 1000 mls/hr 1000 / 1000 IV.SIG .Q1H BRENDEN Rx#:[id number] Tube Feeding 385 / 385 337 / 337 Tube Irrigant 400 / 400 Output: Stool 100 / 100 Urine Amount (Catheter) 875 / 875 700 / 700 Indwelling Urethral Catheter 875 / 875 700 / 700 Other: Date of Last Bowel Movement 01/20/18 01/20/18 Result Diagrams: 01/19/18 04:30 01/19/18 04:30 Objective Remarks: GENERAL: 62-year-old cachectic male in no apparent distress. Communicating in writing. SKIN: Warm and dry. No rash HEAD: Atraumatic. Normocephalic. EYES: Pupils equal and round. No scleral icterus. No injection or drainage. ENT: No nasal bleeding or discharge. Mucous membranes pink and moist. Tongue less edematous protruding from mouth unable to open mouth lips slightly less edematous. Inability to view oral aperture or oral pharynx NECK: Trachea midline. No JVD. Noted right sided neck mass. 8.0 Shiley tracheostomy in situ CARDIOVASCULAR: Normal rate, regular rhythm. sinus RESPIRATORY: Currently on t-piece via tracheostomy. No accessory muscle use. Few coarse rhonchorous breath sounds appreciated. Breath sounds equal bilaterally. GASTROINTESTINAL: Abdomen soft, non-tender, nondistended.. No guarding. MUSCULOSKELETAL: Extremities without clubbing, cyanosis, or edema. No obvious deformities. NEUROLOGICAL: Arousable on the ventilator. Follows commands in all 4 extremities. Patient nodding head to yes and no questions, writes answers on tablet paper questions. Assessment and Plan - Assessment and Plan Plan: Neuro/Psych: Acute Pain associated with head/neck cancer History of EtOH abuse Anxiety associated with XRT Acetaminophen 650 mg every 6 hours as needed for pain and/or temperature Alprazolam 0.5 mg every 8 hours as needed for agitation Temazepam 15 mg at night as needed insomnia Continue gabapentin 300 mg every 8 hours Continue tizanidine 4 mg every 12 hours On Roxanol 4 milligram every 6 scheduled currently -hold secondary to ileus noted discontinued methadone 01/12 Oxycodone 10 mg every 4 hours as needed pain Continue morphine sulfate 2 mg IV every 2 hours as needed for breakthrough pain fentanyl and versed as needed for XRT. no sedation when not in XRT. Respiratory: Acute on chronic hypoxic respiratory failure COPD exacerbation Lung mass/2 new right lower lobe pulmonary nodules Head and neck cancer -squamous cell carcinoma Chronic airway compromise Class IV Mallampati rating 12/20 S/P Emergent tracheostomy to secure airway, 8.0 Shiley 12/21 trach collar trials on .40% initiated. Patient placed back on CPAP 12/24 secondary to hypoxemia and worsening chest x-ray as tolerated t-piece. 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 Possible posterior tumor. Monitor urine output with accurate I's and O's. Discussed with urology/Dr. Barnett. Maintain Tavarez catheter per urology's recommendations. Currently is in place. FEN/GI: PEG placement 12/19 Nausea and vomiting Possible infection PEG tube History of chronic pancreatitis Cholelithiasis Hypokalemia Hypophosphatemia Hypoalbuminemia History of gastroesophageal reflux disease Ileus Glucerna 1.5 with previous 70 cc/hr. continue to increase as tolerated. Lansoprazole 30 mg daily for GI prophylaxis Bowel regimen with docusate sodium 100 mg twice daily, senna 8.8 mg twice daily , polythene glycol 17 g twice daily and lactulose 30 cc twice daily and basic caudal 10 mg MT daily Currently in free water 100 cc every 8 hours to maintain PEG tube patency KUB revealed small/large bowel gas exchange. NG tube currently to suction. Recheck in a.m. 01/19 CT abdomen/pelvis revealed moderate's small bowel dilatation. Cholelithiasis. Chronic pancreatitis. Bilateral nephrolithiasis with mildly dilated renal calyces and ureter. See above Metoclopramide 10 mg every 6 hours K-Phos 30 mmol IV times now. Recheck potassium this afternoon. Heme/ID: Head and neck cancer -squamous cell carcinoma of the right tonsil E. coli UTI Normocytic anemia Leukocytosis Hematology oncology following-patient was tentatively scheduled for chemotherapy to initiate 12/20 Received carbo/Taxol. 3 rounds. Currently on hold secondary to patient refusing radiation therapy. Patient was initiated on levofloxacin and vancomycin on 12/20. now s/p full course of abx. Will treat with aztreonam, linezolid day #7. Discontinued vancomycin and metronidazole day #4. E. coli is resistant to levofloxacin 01/12 -wound -E. coli, C. albicans, Enterococcus faecalis 01/12 -urine -E. coli 01/13 -sputum -E. coli Blood culture 01/12-NGTD Endocrine: Diabetes mellitus Glucose monitoring per ICU protocol beam dose every 6 hours aspart Currently on insulin detemir 6 units at night. Holding while n.p.o. -- SSI Prophylaxis: GI Prophylaxis Lansoprazole DVT Prophylaxis -- SCDs Enoxaparin Lines: Left radial A-line dc'd 12/22, right chest [id number] continue OVERALL IMPRESSION: continues weak improvements. needs to be OOB daily with strength and PT. work towards daily weaning of pressure support to get off ventilator. sedation for XRT only: does not need sedation when not in XRT.
[2018-01-21] MEDS: Norepinephrine Inj 16 MG in Sodium Chlor 0.9% Inj 234 ML IV.CONT PRN (16:13)
[2018-01-21] MEDS: Enoxaparin Inj 40 MG/0.4 ML Syringe SQ SCH ×2 (16:31→21:19)
[2018-01-21] MEDS: Sennosides Liq 8.8 MG/5 ML UDC G-TUBE SCH ×2 (16:34→21:30)
[2018-01-22] MEDS: Aztreonam Inj 2 GM in Sodium Chloride 0.9% Inj 100 ML IV.SIG SCH ×3 (00:41→22:00)
[2018-01-22] MEDS: Insulin NovoLOG Aspart Correctional Sugar Inj SQ SCH ×3 (00:42→22:01)
[2018-01-22] MEDS: Artificial Tears Opth Drops 15 ML Bottle EACH EYE SCH ×3 (00:42→22:00)
[2018-01-22] MEDS: Morphine Inj 4 MG/ML Vial IV.PUSH PRN ×4 (00:44→20:42)
[2018-01-22] MEDS: Morphine Sulfate Oral Liq 10 MG/0.5 ML Syringe G-TUBE SCH ×4 (02:26→20:37)
[2018-01-22] MEDS: Gabapentin Liq 250 MG/5 ML UDC PO SCH ×3 (05:03→21:58)
[2018-01-22] MEDS: Budesonide-Formoterol 160/4.5 MCG 6 GM Inhaler INH SCH ×2 (08:18→20:38)
[2018-01-22] MEDS: Sennosides Liq 8.8 MG/5 ML UDC G-TUBE SCH ×2 (08:18→20:38)
[2018-01-22] MEDS: Chlorhexidine Gluconate 0.12% Liq 15 ML UDC SWISH-SPIT SCH ×2 (08:18→20:38)
[2018-01-22] MEDS: Polyethylene Glycol 3350 17 GM Packet G-TUBE SCH ×2 (08:18→20:38)
[2018-01-22] MEDS: Docusate Sodium Liq 100 MG/10 ML UDC G-TUBE SCH ×2 (08:18→20:38)
--- NOTE | 2018-01-22 09:23 | P.PNPL ---
Subjective Interval history: Patient is on TP's with 50% FIO2. Afebrile. Off Levophed. Physical Exam Vital signs: Vital Signs 01/21/18 09:31 01/21/18 09:52 01/21/18 10:00 Temperature Pulse Rate 102 H Respiratory Rate 14 Blood Pressure Pulse Oximetry 100 99 01/21/18 12:00 01/21/18 12:07 01/21/18 14:00 Temperature 98.4 F Pulse Rate 101 H 100 H 98 H Respiratory Rate 18 18 Blood Pressure 132/69 Pulse Oximetry 96 01/21/18 16:00 01/21/18 16:44 01/21/18 18:00 Temperature 98 F Pulse Rate 103 H 97 H 104 H Respiratory Rate 20 16 Blood Pressure 131/75 Pulse Oximetry 93 L 01/21/18 20:00 01/21/18 20:24 01/21/18 22:00 Temperature 98.2 F Pulse Rate 101 H 103 H 104 H Respiratory Rate 16 18 15 Blood Pressure Pulse Oximetry 93 L 01/22/18 00:00 01/22/18 00:12 01/22/18 01:06 Temperature 98.2 F Pulse Rate 97 H 98 H Respiratory Rate 15 18 18 Blood Pressure 108/56 L Pulse Oximetry 90 L 92 L 01/22/18 02:00 01/22/18 04:00 01/22/18 04:28 Temperature 98.1 F Pulse Rate 100 H 97 H 99 H Respiratory Rate 18 16 Blood Pressure 116/66 Pulse Oximetry 95 01/22/18 05:05 01/22/18 06:00 01/22/18 08:00 Temperature 98.1 F Pulse Rate 100 H 96 H Respiratory Rate 18 16 Blood Pressure 123/68 Pulse Oximetry 92 L 01/22/18 08:53 Temperature Pulse Rate 88 Respiratory Rate 16 Blood Pressure Pulse Oximetry 92 L Intake & Output 01/21/18 01/22/18 01/22/18 18:59 06:59 18:59 Intake Total 1479 / 1479 400 / 400 Output Total 700 / 700 750 / 750 Balance 779 / 779 -350 / -350 Weight 71 kg Intake: IV 638 / 638 100 / 100 Levophed Inj 16 MG In NS Inj 238 / 238 234 ML @ 2 MCG/MIN 1.87 mls/hr IV.CONT TITRATE PRN Rx#: [id number] Azactam Inj 2 GM In NS Inj 100 100 / 100 100 / 100 ML @ 200 mls/hr IV.SIG Q8H BRENDEN Rx#:[id number] Zyvox 600 mg Premix 300 ML @ 300 / 300 300 mls/hr IV.SIG Q12H BRENDEN Rx#: [id number] Oral 0 / 0 0 / 0 Tube Feeding 341 / 341 100 / 100 Tube Irrigant 500 / 500 Water Bolus Amount 200 / 200 Output: Urine 700 / 700 Stool 50 / 50 Emesis 0 / 0 Urine Amount (Catheter) 700 / 700 Indwelling Urethral Catheter 700 / 700 Other: Date of Last Bowel Movement 01/21/18 01/21/18 01/21/18 # Bowel Movements 0 # Incontinent Bowel Movements 1 # Emeses 0 - Constitutional no acute distress - Routine HEENT Exam Head: Present: normocephalic, atraumatic Eye: Present: EOMI, PERRL, conjunctivae pink ENT: Present: mucous membranes moist - Routine Neck Exam Present: supple, full ROM, trachea midline - Routine Respiratory Exam Present: decreased breath sounds, CTA bilaterally - Routine Cardiovascular Exam Present: RRR, S1, S2 - Routine Abdominal Exam Present: soft, normoactive bowel sounds - Routine Extremities Exam Present: full ROM - Routine Skin Exam Present: intact - Routine Neurological Exam Present: alert - Urinary Catheter Management Indwelling Urethral Catheter Cath placed during this visit: yes, but has since been removed by the nurse Reason for continuing: Chronic Urinary Retention Insertion date: 01/14/18 Insertion time: 00:00 Removal date: 01/02/18 Removal time: 07:00 Condom Cath placed during this visit: yes Reason for continuing: Acute urinary retention Insertion date: 01/14/18 Insertion time: 18:30 Assessment and Plan - Plan 1)VDRF s/p trach/PEG 2)Head and neck ca 3)COPD 4)Aspiration 5)Leukocytosis 6)UTI PLAN: Continue with TP's as kira keep sats >92% Bronchodilators Pulm toilet, trach care cont Abx ( Aztreonam, Zyvox) monitor for signs of infections ( Fever, WBC) Sputum cx 01/13: E.coli, recheck sputum cx Off Levophed keep MAP>65mmHg Awaiting Radiation treatment Continue tube feeds via PEG tube. GI/DVT prophylaxis- on Lovenox SQ
--- NOTE | 2018-01-22 09:50 | P.PNCC ---
Subjective Subjective Remarks/Hospital Course: Remarks/Hospital Course This is a 62-year-old male with a past medical history of squamous cell carcinoma of the head and neck, lung mass COPD, hypertension diabetes with a history of tobacco abuse, that presented on 12/18. The patient regularly is seen at the [facility] however he was not afforded treatment at this time . The patient was admitted to the medical floor, hematology oncology had been consulted plans were for chemotherapy to be initiated today the patient underwent PEG placement yesterday. Late this afternoon the patient was noted to be hypoxemic with significant airway edema , O2 sat in the 80's, Pao2 59 on 100% nonrebreather ,in the setting of a large tumor mass .A Halicat was called , and the patient was emergently transferred to [facility]. Upon transfer the patient was immediately out evaluated and noted to be in significant respiratory distress, oral airway significantly edematous tongue protruding out of mouth Mallampati unobtainable upon evaluation. The patient appeared to be alert and could not yes and no to questions unable to speak. Quick assessment of CT scans that were previously done of the neck showed a large tumor mass crossing midline. Dr. Cabello , Anesthesiologist in to evaluate patient at bedside discussed case with him. Emergency airway equipment placed at bedside trauma surgery was notified I spoke with Dr. Rangel, patient emergently scheduled for tracheostomy to secure airway. A left radial A-line was placed ABG on 100% nonrebreather was obtained prior to going PaO2 had risen to 60 on nonrebreather mask. 12/21: No acute events overnight. The patient underwent emergency tracheostomy to secure the airway last evening. Norepinephrine and fentanyl infusions have been discontinued this morning patient has been transitioned onto CPAP trials and denies any discomfort. Patient is communicating with board and marker. PEG tube in situ tube feedings Glucerna currently at 30 cc/an hour continue to be advanced to goal. FiO2 has been decreased to .45% 12/22: No acute events overnight. The patient was maintained on CPAP trials throughout the night and this afternoon plan trach collar trials this afternoon PT OT has been initiated. Patient tolerating tube feeds no residuals. 12/23: Patient progressing well currently on trach collar trials greater than 24 hours. Patient tolerating tube feeds diet. Chemotherapy initiated yesterday. Patient denies pain. 12/24: Late entry note patient seen at 11:40 AM. Overnight the patient became agitated pulling off lines and tubes. Patient had previous stated that he has an anxiety disorder ,Xanax was ordered however not given. Upon my evaluation this a.m. O2 saturation noted to be low patient placed on FiO2 of 80% stat ABG was performed to reveal hypoxemia the patient was placed back on CPAP stat chest x-ray was performed which showed worsening airspace disease in the bases. 12/25: Patient noted with episodes of nausea, tube feeds held. Zofran given for nausea. The patient continues to have increased FiO2 requirements the patient is being placed on trach collar during the day CPAP at night. 12/26: Vitals not documented. Currently on CPAP 10/5 and 40%. No bowel movements documented. Not on a bowel regimen. 12/27: Remains on mechanical ventilation via tracheostomy. On CPAP trials. 12/28: no changes. still with cpap trials. 12/29: tolerating t-piece trials. rested on cpap overnight. complaints of continued pain around tumor site, as well as significant secretions. 12/30: clinically doing well. denies complaints. asked that speech re-evaluate him because he would like to start eating real food again. plan for XRT to start today. 12/31: On mechanical ventilation via trach. Tolerating T piece trials 01/01: Remains on mechanical ventilation via trach. 01/02: On T-piece. Awaiting radiation today 01/13: Reconsult due to hypotension/aspiration with worsening oxygenation. Patient replaced back on the ventilator via tracheostomy with cuff inflated. Of note, patient has been refusing radiation therapy and his chemotherapy has been held for that reason by oncology. Patient with urinary tract infection/ becoming septic with possible infected PEG site as well. 01/14: Patient plan for CT abdomen/pelvis today. White blood cell count improved. Remains on ventilator. Greater than 1 L from G-tube to drainage overnight 01/15: Afebrile. Noted CT abdomen/pelvis revealed emphysematous cystitis. Discussed with urology. Tavarez has been placed. Will evaluate today. Currently on low-dose norepinephrine. Continues to have ileus. 01/16: Patient requesting additional pain medication. G2 -200 cc. Recheck KUB today. White cell count is normalized. Off vasopressors. 01/17: Resting complaint bed in no acute distress. Complaining of pain in neck. Off all vasopressors. We will restart tube feeds today at 20 cc an hour goal. 01/18: T-max 99.7. -350 per G-tube overnight. No bowel movement yesterday. Tumor is right neck appears to be enlarging. Very painful. Will restart tube feeds at 20 cc an hour today. Oxycodone by tube for pain management. 01/20: did not tolerate radiation therapy due to anxiety and pain. have ordered sedation for future treatments. no other changes. some mild bloody trach secretions today s/p XRT, though no active bleeding noted. Subjective: 01/21: no changes. back on vent overnight. back to t-piece during the day. radiation therapy again today. requires deep sedation for XRT due to severe anxiety. 01/22: back to t-piece. no XRT yesterday. no changes. no complaints. Objective Vital Signs / I&O: Vital Signs 01/21/18 09:52 01/21/18 10:00 01/21/18 12:00 Temperature 36.9 C Pulse Rate 102 H 101 H Respiratory Rate 18 Blood Pressure 132/69 Pulse Oximetry 99 96 01/21/18 12:07 01/21/18 14:00 01/21/18 16:00 Temperature 36.6 C Pulse Rate 100 H 98 H 103 H Respiratory Rate 18 20 Blood Pressure 131/75 Pulse Oximetry 93 L 01/21/18 16:44 01/21/18 18:00 01/21/18 20:00 Temperature 36.8 C Pulse Rate 97 H 104 H 101 H Respiratory Rate 16 16 Blood Pressure Pulse Oximetry 01/21/18 20:24 01/21/18 22:00 01/22/18 00:00 Temperature 36.8 C Pulse Rate 103 H 104 H 97 H Respiratory Rate 18 15 15 Blood Pressure 108/56 L Pulse Oximetry 93 L 90 L 01/22/18 00:12 01/22/18 01:06 01/22/18 02:00 Temperature Pulse Rate 98 H 100 H Respiratory Rate 18 18 Blood Pressure Pulse Oximetry 92 L 01/22/18 04:00 01/22/18 04:28 01/22/18 05:05 Temperature 36.7 C Pulse Rate 97 H 99 H Respiratory Rate 18 16 18 Blood Pressure 116/66 Pulse Oximetry 95 01/22/18 06:00 01/22/18 08:00 01/22/18 08:53 Temperature 36.7 C Pulse Rate 100 H 96 H 88 Respiratory Rate 16 16 Blood Pressure 123/68 Pulse Oximetry 92 L 92 L Intake & Output 01/21/18 01/22/18 01/22/18 18:59 06:59 18:59 Intake Total 1479 / 1479 400 / 400 Output Total 700 / 700 750 / 750 Balance 779 / 779 -350 / -350 Weight 71 kg Intake: IV 638 / 638 100 / 100 Levophed Inj 16 MG In NS Inj 238 / 238 234 ML @ 2 MCG/MIN 1.87 mls/hr IV.CONT TITRATE PRN Rx#: [id number] Azactam Inj 2 GM In NS Inj 100 100 / 100 100 / 100 ML @ 200 mls/hr IV.SIG Q8H [facility] Rx#:[id number] Zyvox 600 mg Premix 300 ML @ 300 / 300 300 mls/hr IV.SIG Q12H [facility] Rx#: [id number] Oral 0 / 0 0 / 0 Tube Feeding 341 / 341 100 / 100 Tube Irrigant 500 / 500 Water Bolus Amount 200 / 200 Output: Urine 700 / 700 Stool 50 / 50 Emesis 0 / 0 Urine Amount (Catheter) 700 / 700 Indwelling Urethral Catheter 700 / 700 Other: Date of Last Bowel Movement 01/21/18 01/21/18 01/21/18 # Bowel Movements 0 # Incontinent Bowel Movements 1 # Emeses 0 Result Diagrams: 01/19/18 04:30 01/19/18 04:30 Objective Remarks: GENERAL: 62-year-old cachectic male in no apparent distress. Communicating in writing. SKIN: Warm and dry. No rash HEAD: Atraumatic. Normocephalic. EYES: Pupils equal and round. No scleral icterus. No injection or drainage. ENT: No nasal bleeding or discharge. Mucous membranes pink and moist. Tongue less edematous protruding from mouth unable to open mouth lips slightly less edematous. Inability to view oral aperture or oral pharynx NECK: Trachea midline. No JVD. Noted right sided neck mass. 8.0 Shiley tracheostomy in situ CARDIOVASCULAR: Normal rate, regular rhythm. sinus RESPIRATORY: Currently on t-piece via tracheostomy. No accessory muscle use. Few coarse rhonchorous breath sounds appreciated. Breath sounds equal bilaterally. GASTROINTESTINAL: Abdomen soft, non-tender, nondistended.. No guarding. MUSCULOSKELETAL: Extremities without clubbing, cyanosis, or edema. No obvious deformities. NEUROLOGICAL: Arousable on the ventilator. Follows commands in all 4 extremities. Patient nodding head to yes and no questions, writes answers on tablet paper questions. Assessment and Plan - Assessment and Plan Plan: Neuro/Psych: Acute Pain associated with head/neck cancer History of EtOH abuse Anxiety associated with XRT Acetaminophen 650 mg every 6 hours as needed for pain and/or temperature Alprazolam 0.5 mg every 8 hours as needed for agitation Temazepam 15 mg at night as needed insomnia Continue gabapentin 300 mg every 8 hours Continue tizanidine 4 mg every 12 hours On Roxanol 4 milligram every 6 scheduled currently -hold secondary to ileus noted discontinued methadone 01/12 Oxycodone 10 mg every 4 hours as needed pain Continue morphine sulfate 2 mg IV every 2 hours as needed for breakthrough pain fentanyl and versed as needed for XRT. no sedation when not in XRT. Respiratory: Acute on chronic hypoxic respiratory failure COPD exacerbation Lung mass/2 new right lower lobe pulmonary nodules Head and neck cancer -squamous cell carcinoma Chronic airway compromise Class IV Mallampati rating 12/20 S/P Emergent tracheostomy to secure airway, 8.0 Shiley 12/21 trach collar trials on .40% initiated. Patient placed back on CPAP 12/24 secondary to hypoxemia and worsening chest x-ray as tolerated t-piece. 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 Possible posterior tumor. Monitor urine output with accurate I's and O's. Discussed with urology/Dr. Barnett. Maintain Tavarez catheter per urology's recommendations. Currently is in place. FEN/GI: PEG placement 12/19 Nausea and vomiting Possible infection PEG tube History of chronic pancreatitis Cholelithiasis Hypokalemia Hypophosphatemia Hypoalbuminemia History of gastroesophageal reflux disease Ileus Glucerna 1.5 with previous 70 cc/hr. continue to increase as tolerated. Lansoprazole 30 mg daily for GI prophylaxis Bowel regimen with docusate sodium 100 mg twice daily, senna 8.8 mg twice daily , polythene glycol 17 g twice daily and lactulose 30 cc twice daily and basic caudal 10 mg FL daily Currently in free water 100 cc every 8 hours to maintain PEG tube patency KUB revealed small/large bowel gas exchange. NG tube currently to suction. Recheck in a.m. 01/19 CT abdomen/pelvis revealed moderate's small bowel dilatation. Cholelithiasis. Chronic pancreatitis. Bilateral nephrolithiasis with mildly dilated renal calyces and ureter. See above Metoclopramide 10 mg every 6 hours K-Phos 30 mmol IV times now. Recheck potassium this afternoon. Heme/ID: Head and neck cancer -squamous cell carcinoma of the right tonsil E. coli UTI Normocytic anemia Leukocytosis Hematology oncology following-patient was tentatively scheduled for chemotherapy to initiate 12/20 Received carbo/Taxol. 3 rounds. Currently on hold secondary to patient refusing radiation therapy. Patient was initiated on levofloxacin and vancomycin on 12/20. now s/p full course of abx. Will treat with aztreonam, linezolid day #7. Discontinued vancomycin and metronidazole day #4. E. coli is resistant to levofloxacin 01/12 -wound -E. coli, C. albicans, Enterococcus faecalis 01/12 -urine -E. coli 01/13 -sputum -E. coli Blood culture 01/12-NGTD Endocrine: Diabetes mellitus Glucose monitoring per ICU protocol beam dose every 6 hours aspart Currently on insulin detemir 6 units at night. Holding while n.p.o. -- SSI Prophylaxis: GI Prophylaxis Lansoprazole DVT Prophylaxis -- SCDs Enoxaparin Lines: Left radial A-line dc'd 12/22, right chest [id number] continue OVERALL IMPRESSION: continues weak improvements. needs to be OOB daily with strength and PT. work towards daily weaning of pressure support to get off ventilator. sedation for XRT only: does not need sedation when not in XRT.
[2018-01-22] MEDS: Enoxaparin Inj 40 MG/0.4 ML Syringe SQ SCH (14:17)
[2018-01-22] MEDS: Scopalamine 1.5 MG Patch T-DERMAL SCH (20:38)
[2018-01-22] MEDS: [UNRECOGNIZED DRUG - REMARK] T-DERMAL SCH (20:38)
[2018-01-23] MEDS: Insulin NovoLOG Aspart Correctional Sugar Inj SQ SCH ×3 (00:52→12:07)
[2018-01-23] MEDS: Morphine Inj 4 MG/ML Vial IV.PUSH PRN ×4 (00:53→14:12)
[2018-01-23] MEDS: Morphine Sulfate Oral Liq 10 MG/0.5 ML Syringe G-TUBE SCH ×3 (02:00→14:11)
[2018-01-23] MEDS: Aztreonam Inj 2 GM in Sodium Chloride 0.9% Inj 100 ML IV.SIG SCH ×2 (04:37→09:10)
[2018-01-23] MEDS: Artificial Tears Opth Drops 15 ML Bottle EACH EYE SCH ×2 (04:37→09:08)
[2018-01-23] MEDS: Gabapentin Liq 250 MG/5 ML UDC PO SCH ×2 (05:24→14:11)
[2018-01-23 08:28] VITALS: O2SAT 93
[2018-01-23] MEDS: Docusate Sodium Liq 100 MG/10 ML UDC G-TUBE SCH (09:08)
[2018-01-23] MEDS: Budesonide-Formoterol 160/4.5 MCG 6 GM Inhaler INH SCH (09:09)
[2018-01-23] MEDS: Sennosides Liq 8.8 MG/5 ML UDC G-TUBE SCH (09:09)
[2018-01-23] MEDS: Polyethylene Glycol 3350 17 GM Packet G-TUBE SCH (09:10)
[2018-01-23] MEDS: Chlorhexidine Gluconate 0.12% Liq 15 ML UDC SWISH-SPIT SCH (09:10)
--- NOTE | 2018-01-23 11:53 | P.PNPAL ---
Reason for Visit Reason for visit: a. To assist with evaluation and management of symptoms including: pain, dyspnea, anxiety b. To assist medical decision maker(s) with: better understanding of current medical conditions; weighing benefits/burdens of medical treatment options; making medical treatment decisions. Subjective Subjective/Interval History: Pt still has not started radiation. Even with sedation pt unable to tolerate. Per oncology would need 7 weeks XRT. Dual visit with Dr Singer. Pt resting in bed, appears calm. He did indicate that he has difficulty going to radiation b/c it is claustraphobic and frightening to him. Denies SOB. Trach to t-piece. Requires frequent suctioning. Significant rhonchi on auscultation. FiO2 50% Indicates his pain is moderately controlled. Has had 12 mg roxanol and 2 mg IV morphine in last 24 hours, per nursing pain assessments rating his pain 7/10. Family/Friend Interactions: Discussed @ bedside: -reviewed current medical problems -reviewed prognosis - no hope for cure -Patients goals of care - prior aggressive, time for transition to focus on symptoms, how pt feels -Current medical treatment options and benefits/burdens of those options -xrt would require 7 weeks and deeply sedating pt -Likely scenarios comparing ongoing aggressive care with a transition to `` comfort-measures only and hospice - CODE STATUS - change to DNR -Questions answered to the best of my ability - Palliative care contact information provided Pt indicated acknowledgement of futility of continued treatment with XRT, even if for palliation in light of need to deeply sedate him and that this is not realistic nor safe to do for the next 7 weeks. He is agreeable to hospice consult and possible transfer to care center. Advance Directives Health Care Surrogate Name and Number: primary [facility] Jai Dolan; secondary Dianna Dolan Objective Vital Signs: Vital Signs 01/22/18 12:00 01/22/18 14:00 01/22/18 16:00 Temperature 98 F 98.3 F Pulse Rate 96 H 96 H 94 H Respiratory Rate 18 20 Blood Pressure 100/55 L 115/91 H Pulse Oximetry 91 L 91 L 01/22/18 16:23 01/22/18 18:00 01/22/18 20:00 Temperature 96.8 F L Pulse Rate 95 H 93 H 94 H Respiratory Rate 16 16 Blood Pressure 129/71 Pulse Oximetry 92 L 01/22/18 20:48 01/22/18 22:00 01/23/18 00:00 Temperature 98.1 F Pulse Rate 93 H 93 H 93 H Respiratory Rate 15 14 Blood Pressure 117/64 Pulse Oximetry 92 L 92 L 01/23/18 00:08 01/23/18 02:00 01/23/18 04:00 Temperature 98.8 F Pulse Rate 91 H 91 H 88 Respiratory Rate 16 13 Blood Pressure 102/58 L Pulse Oximetry 92 L 01/23/18 04:21 01/23/18 06:00 01/23/18 07:00 Temperature Pulse Rate 89 92 H 91 H Respiratory Rate 16 18 Blood Pressure Pulse Oximetry 92 L 93 L 01/23/18 10:23 Temperature Pulse Rate Respiratory Rate 12 Blood Pressure Pulse Oximetry Intake & Output 01/22/18 01/23/18 01/23/18 18:59 06:59 18:59 Intake Total 463 / 463 625 / 625 Output Total 1070 / 1070 1350 / 1350 Balance -607 / -607 -725 / -725 Weight 70.5 kg Intake: IV 100 / 100 100 / 100 Azactam Inj 2 GM In NS Inj 100 100 / 100 100 / 100 ML @ 200 mls/hr IV.SIG Q8H [facility] Rx#:[id number] Oral 0 / 0 0 / 0 Tube Feeding 163 / 163 325 / 325 Water Bolus Amount 200 / 200 200 / 200 Output: Urine 1000 / 1000 550 / 550 Stool 70 / 70 800 / 800 Other: Date of Last Bowel Movement 01/22/18 01/22/18 Physical Exam: CONSTITUTIONAL/GENERAL: mildly cachectic, alert, calm TUBES/LINES/DRAINS: port accessed rt chest, trach to t-piece, PEG SKIN: sallow complexion No wounds seen anteriorly other than face. skin warm/ dry HEAD: Atraumatic. mass right face and neck EYES: PERRL. Extraocular motions intact. No scleral icterus. No injection or drainage. Fundi not examined. ENT: Hearing grossly normal. Nose without bleeding or purulent drainage. large mass right cheek extending down to neck, appears larger than previous eval. white patches on tongue NECK: mass right side. RESPIRATORY/CHEST: respirations unlabored, lungs sounds coarse. +significant rhonchi obscuring auscultation bowels, heart GASTROINTESTINAL: Abdomen soft, nontender, non distended, + PEG with TF infusing NEUROLOGICAL:alert, calm, cooperative. Nods /gestures/writes in communication/ understanding. appears oriented/appropriate. Moves all 4 extremities. PSYCHIATRIC: calm, no anxiety evident Diagnostic Tests Laboratory: Laboratory Results - last 72 hr 01/20/18 01/21/18 01/21/18 17:12 00:08 05:53 POC Glucose 117 H 142 H 166 H 01/21/18 01/21/18 01/22/18 14:04 18:16 00:40 POC Glucose 130 H 153 H 138 H 01/22/18 01/22/18 01/22/18 05:11 14:25 18:10 POC Glucose 112 H 109 119 H 01/23/18 01/23/18 00:27 05:29 POC Glucose 143 H 136 H Result Diagrams: 01/19/18 04:30 01/19/18 04:30 Microbiology: Microbiology 01/22/18 12:00 Gram Stain - Final Sputum - Endotracheal Procedures: 6 g tube placement by IR 12/20 emergency tracheostomy 12/22 chemotherapy initiated 12/29 2nd dose chemo Assessment and Plan - Disease Oriented Problem List (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 Per EMR has daughter Dianna and "friend" Jai. He is an [employer] . 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 IN the event he is incapacitated, He designated Jai and Dianna Dolan as HCS. Have communicated with Jai, he accepts his role. Ethical issues impacting care: none at this time Important Contacts: daughter Dianna Dolan [phone] "friend" Jai Dolan home [phone], cell [phone] Prognosis: This is a 62 yo male with COPD, DM, hx etoh & tobacco use, > 40 pack years diagnosed with head and neck cancer. He also has a lung mass which has yet to be biopsied. He has lost 30 lbs in the last 6 months and now requires tube feedings. Has tracheostomy for breathing b/c mass has encroached on his airway. He received 3 x tx palliative chemotherapy, refused radiation and subsequently developed emphysematous cystitis, ileus. The chemo treatmens transiently shrunk tumor. Oncology ceased chemo given pt's refusal of XRT. Pt has attempted XRT 3 times and is unable to complete sessions d/t anxiety, even with sedation. Given his underlying COPD and lung mass, recent setbacks, his prognosis is poor. He is at significant risk for additional complications, setbacks, and further decline. He is hospice appropriate. Code Status: Full Code Plan: - LEGAL DECISON MAKER - pt with trach and communication is difficult but he is alert, oriented, and appropriate, capacitated to make decisions. Should he become incapacitated, he designated Jai Dolan as primary and Dianna Dolan as secondary HCS. - CODE STATUS- no code/DNR - GOALS - Pt indicated acknowledgement of futility of continued treatment with XRT, even if for palliation in light of need to deeply sedate him and that this is not realistic nor safe to do for the next 7 weeks and may actually make him feel worse. He is agreeable to hospice consult and possible transfer to care center. - SYMPTOMS - hospice consult is pending * pain - 2/2 tumor, lines, tracheostomy discomfort with encroaching tumor. On 4mg roxanol q6h, IV morphine 2mg prn breakthrough, has had 12mg roxanol and 2mg IV morphine in last 12 hours. Rating pain 7/10. On our eval indicates it is moderately controlled. * dyspnea, secretions- 2/2 compromised airway, face/neck mass. Has tracheostomy , now on vent after episode vomiting, aspiration 01/13. Denies feeling SOB , secretions have been persistent. This will persist secondary to disease process. On scheduled symbicort, sheduled duonebs prn duonebs levcaleb. * anxiety - multifactorial. Patient has had flat affect, ambivalent, irritable. could be component of depression/anxiety. Has been extremely agitated en route to radiation therapy and essentially refusing, even with premedication. This has been attempted 3 times, unsuccessfully. He would require nearly conscious sedation for each treatment and needs 7 weeks of treatment. * nausea - multifactorial, s/p 3 x palliative chemotherapy tx, last one 01/06; prev. complained of nausea with roxanol admin. + Ileus, resolved. TF resumed. denies gi c/o today. Has promethazine 25mg IM PRN breakthrough nausea, scopolamine patch, reglan 10mg q6h PRN, both PO and IV zofran PRN. Has not required PRN antiemetics. - discussed with RN, discussed with oncology PLASTICATOR. Hospice consult pending. - Palliative care will continue to follow during hospital course as condition evolves, to assist patient/decision-maker with understanding of medical conditions, weighing benefits/burdens of treatment options, for clarification of goals of treatment. Additionally will assist with any symptoms of palliative concern Attestation Attestation: To help prompt me to consider important information that might be impacting today's encounter and assessment, information from prior notes written by myself or my colleagues may have been "brought forward" into today's note. My signature on this note, however, is an attestation that I personally performed the exam, history, and/or decision-making noted today, and, unless otherwise indicated, the interactions with patient, family, and staff as well as the review of records all occurred today. I also attest that the listed assessment and stated plan reflect my best clinical judgment today based on the combination of historical information, prior notes, and today's exam/ interactions. When time spent is documented, it refers only to time spent today by the signer, or if indicated, combined time spent today by collaborating physician/nurse practitioner.
[2018-01-23] MEDS: Enoxaparin Inj 40 MG/0.4 ML Syringe SQ SCH (12:04)
--- NOTE | 2018-01-23 13:32 | P.DS ---
Date of admission: 12/18/17 02:24 Primary care physician: [facility] Attending physician on discharge: Popeye Arevalo Anticipated date of discharge: 01/23/18 Brief History from admission: This is a 62-year-old male with a past medical history of squamous cell carcinoma of the head and neck, lung mass COPD, hypertension diabetes with a history of tobacco abuse, that presented on 12/18. The patient regularly is seen at the [facility] however he was not afforded treatment at this time . The patient was admitted to the medical floor, hematology oncology had been consulted plans were for chemotherapy to be initiated today the patient underwent PEG placement yesterday. Late this afternoon the patient was noted to be hypoxemic with significant airway edema , O2 sat in the 80's, Pao2 59 on 100% nonrebreather ,in the setting of a large tumor mass .A Halicat was called , and the patient was emergently transferred to [facility]. Upon transfer the patient was immediately out evaluated and noted to be in significant respiratory distress, oral airway significantly edematous tongue protruding out of mouth Mallampati unobtainable upon evaluation. The patient appeared to be alert and could not yes and no to questions unable to speak. Quick assessment of CT scans that were previously done of the neck showed a large tumor mass crossing midline. Dr. Cabello , Anesthesiologist in to evaluate patient at bedside discussed case with him. Emergency airway equipment placed at bedside trauma surgery was notified I spoke with Dr. Rangel, patient emergently scheduled for tracheostomy to secure airway. A left radial A-line was placed ABG on 100% nonrebreather was obtained prior to going PaO2 had risen to 60 on nonrebreather mask. DS: Diagnosis - Discharge Diagnosis (1) Squamous cell carcinoma of head and neck Status: Acute (2) Sore throat Status: Acute (3) COPD (chronic obstructive pulmonary disease) Status: Acute (4) Tobacco abuse Status: Acute (5) Leucocytosis Status: Acute (6) Alcohol abuse Status: Acute (7) Pain Status: Acute (8) Dyspnea Status: Acute (9) Nausea Status: Acute (10) Anxiety Status: Acute DS: Summary Hospital Course: Remarks/Hospital Course This is a 62-year-old male with a past medical history of squamous cell carcinoma of the head and neck, lung mass COPD, hypertension diabetes with a history of tobacco abuse, that presented on 12/18. The patient regularly is seen at the [facility] however he was not afforded treatment at this time . The patient was admitted to the medical floor, hematology oncology had been consulted plans were for chemotherapy to be initiated today the patient underwent PEG placement yesterday. Late this afternoon the patient was noted to be hypoxemic with significant airway edema , O2 sat in the 80's, Pao2 59 on 100% nonrebreather ,in the setting of a large tumor mass .A Halicat was called , and the patient was emergently transferred to [facility]. Upon transfer the patient was immediately out evaluated and noted to be in significant respiratory distress, oral airway significantly edematous tongue protruding out of mouth Mallampati unobtainable upon evaluation. The patient appeared to be alert and could not yes and no to questions unable to speak. Quick assessment of CT scans that were previously done of the neck showed a large tumor mass crossing midline. Dr. Cabello , Anesthesiologist in to evaluate patient at bedside discussed case with him. Emergency airway equipment placed at bedside trauma surgery was notified I spoke with Dr. Rangel, patient emergently scheduled for tracheostomy to secure airway. A left radial A-line was placed ABG on 100% nonrebreather was obtained prior to going PaO2 had risen to 60 on nonrebreather mask. 12/21: No acute events overnight. The patient underwent emergency tracheostomy to secure the airway last evening. Norepinephrine and fentanyl infusions have been discontinued this morning patient has been transitioned onto CPAP trials and denies any discomfort. Patient is communicating with board and marker. PEG tube in situ tube feedings Glucerna currently at 30 cc/an hour continue to be advanced to goal. FiO2 has been decreased to .45% 12/22: No acute events overnight. The patient was maintained on CPAP trials throughout the night and this afternoon plan trach collar trials this afternoon PT OT has been initiated. Patient tolerating tube feeds no residuals. 12/23: Patient progressing well currently on trach collar trials greater than 24 hours. Patient tolerating tube feeds diet. Chemotherapy initiated yesterday. Patient denies pain. 12/24: Late entry note patient seen at 11:40 AM. Overnight the patient became agitated pulling off lines and tubes. Patient had previous stated that he has an anxiety disorder ,Xanax was ordered however not given. Upon my evaluation this a.m. O2 saturation noted to be low patient placed on FiO2 of 80% stat ABG was performed to reveal hypoxemia the patient was placed back on CPAP stat chest x-ray was performed which showed worsening airspace disease in the bases. 12/25: Patient noted with episodes of nausea, tube feeds held. Zofran given for nausea. The patient continues to have increased FiO2 requirements the patient is being placed on trach collar during the day CPAP at night. 12/26: Vitals not documented. Currently on CPAP 10/5 and 40%. No bowel movements documented. Not on a bowel regimen. 12/27: Remains on mechanical ventilation via tracheostomy. On CPAP trials. 12/28: no changes. still with cpap trials. 12/29: tolerating t-piece trials. rested on cpap overnight. complaints of continued pain around tumor site, as well as significant secretions. 12/30: clinically doing well. denies complaints. asked that speech re-evaluate him because he would like to start eating real food again. plan for XRT to start today. 12/31: On mechanical ventilation via trach. Tolerating T piece trials 01/01: Remains on mechanical ventilation via trach. 01/02: On T-piece. Awaiting radiation today 01/13: Reconsult due to hypotension/aspiration with worsening oxygenation. Patient replaced back on the ventilator via tracheostomy with cuff inflated. Of note, patient has been refusing radiation therapy and his chemotherapy has been held for that reason by oncology. Patient with urinary tract infection/ becoming septic with possible infected PEG site as well. 01/14: Patient plan for CT abdomen/pelvis today. White blood cell count improved. Remains on ventilator. Greater than 1 L from G-tube to drainage overnight 01/15: Afebrile. Noted CT abdomen/pelvis revealed emphysematous cystitis. Discussed with urology. Tavarez has been placed. Will evaluate today. Currently on low-dose norepinephrine. Continues to have ileus. 01/16: Patient requesting additional pain medication. G2 -200 cc. Recheck KUB today. White cell count is normalized. Off vasopressors. 01/17: Resting complaint bed in no acute distress. Complaining of pain in neck. Off all vasopressors. We will restart tube feeds today at 20 cc an hour goal. 01/18: T-max 99.7. -350 per G-tube overnight. No bowel movement yesterday. Tumor is right neck appears to be enlarging. Very painful. Will restart tube feeds at 20 cc an hour today. Oxycodone by tube for pain management. 01/20: did not tolerate radiation therapy due to anxiety and pain. have ordered sedation for future treatments. no other changes. some mild bloody trach secretions today s/p XRT, though no active bleeding noted. 01/21: no changes. back on vent overnight. back to t-piece during the day. radiation therapy again today. requires deep sedation for XRT due to severe anxiety. 01/22: back to t-piece. no XRT yesterday. no changes. no complaints. 01/23: patient elected to transition goals to comfort and hospice. - Time Spent with Patient Total time spent providing and/or coordinating discharge services: Greater than 30 minutes Exam Vital signs: Vital Signs 01/22/18 14:00 01/22/18 16:00 01/22/18 16:23 Temperature 36.8 C Pulse Rate 96 H 94 H 95 H Respiratory Rate 20 16 Blood Pressure 115/91 H Pulse Oximetry 91 L 01/22/18 18:00 01/22/18 20:00 01/22/18 20:48 Temperature 36.0 C L Pulse Rate 93 H 94 H 93 H Respiratory Rate 16 15 Blood Pressure 129/71 Pulse Oximetry 92 L 92 L 01/22/18 22:00 01/23/18 00:00 01/23/18 00:08 Temperature 36.7 C Pulse Rate 93 H 93 H 91 H Respiratory Rate 14 16 Blood Pressure 117/64 Pulse Oximetry 92 L 01/23/18 02:00 01/23/18 04:00 01/23/18 04:21 Temperature 37.1 C Pulse Rate 91 H 88 89 Respiratory Rate 13 16 Blood Pressure 102/58 L Pulse Oximetry 92 L 92 L 01/23/18 06:00 01/23/18 07:00 01/23/18 10:23 Temperature Pulse Rate 92 H 91 H Respiratory Rate 18 12 Blood Pressure Pulse Oximetry 93 L Intake & Output 01/22/18 01/23/18 01/23/18 18:59 06:59 18:59 Intake Total 463 / 463 625 / 625 Output Total 1070 / 1070 1350 / 1350 Balance -607 / -607 -725 / -725 Weight 70.5 kg Intake: IV 100 / 100 100 / 100 Azactam Inj 2 GM In NS Inj 100 100 / 100 100 / 100 ML @ 200 mls/hr IV.SIG Q8H [facility] Rx#:[id number] Oral 0 / 0 0 / 0 Tube Feeding 163 / 163 325 / 325 Water Bolus Amount 200 / 200 200 / 200 Output: Urine 1000 / 1000 550 / 550 Stool 70 / 70 800 / 800 Other: Date of Last Bowel Movement 01/22/18 01/22/18 Narrative: GENERAL: 62-year-old cachectic male in no apparent distress. Communicating in writing. SKIN: Warm and dry. No rash HEAD: Atraumatic. Normocephalic. EYES: Pupils equal and round. No scleral icterus. No injection or drainage. ENT: No nasal bleeding or discharge. Mucous membranes pink and moist. Tongue less edematous protruding from mouth unable to open mouth lips slightly less edematous. Inability to view oral aperture or oral pharynx NECK: Trachea midline. No JVD. Noted right sided neck mass. 8.0 Shiley tracheostomy in situ CARDIOVASCULAR: Normal rate, regular rhythm. sinus RESPIRATORY: Currently on t-piece via tracheostomy. No accessory muscle use. Few coarse rhonchorous breath sounds appreciated. Breath sounds equal bilaterally. GASTROINTESTINAL: Abdomen soft, non-tender, nondistended.. No guarding. MUSCULOSKELETAL: Extremities without clubbing, cyanosis, or edema. No obvious deformities. NEUROLOGICAL: Arousable on the ventilator. Follows commands in all 4 extremities. Patient nodding head to yes and no questions, writes answers on tablet paper questions. Results Procedures completed during hospitalization: SP TRACH AND PEG Labs on day of discharge: Labs from last 24 hours 01/23/18 01/23/18 01/23/18 12:06 05:29 00:27 POC Glucose 138 H 136 H 143 H 01/22/18 01/22/18 18:10 14:25 POC Glucose 119 H 109 - Impressions ITS Impressions Abdomen/Pelvis CT 01/14/18 00:00 CONCLUSION: 1. Abnormal urinary bladder with multiple small gas collections along the bladder wall with apparent mild thickening or adjacent fluid. There is small amount of intraluminal air. 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 In addition there are multiple small enhancing nodule lower areas along the posterior aspect of the bladder which could indicate tumor. 2. 2 new small right pulmonary nodules. This is of concern for metastatic disease. 3. Nonspecific bowel gas pattern most characteristic of an ileus. There is a small to moderate amount of fluid in the chest or pelvis. 4. Multiple bilateral renal calculi. There is mild prominence of the collecting systems and ureters which likely is secondary to bladder abnormality. 5. Cholelithiasis. 6. Chronic pancreatitis. The pancreatic duct now appears mildly dilated. These findings were called to Dr. Humphrey at 1755 hours. Abdomen X-Ray 01/19/18 00:01 CONCLUSION: Chest X-Ray 01/19/18 06:00 CONCLUSION: 1. Persistent left basilar consolidation/effusion. 2. Worsening airspace disease/effusion on the right. 3. Hyperinflation with probable biapical emphysematous changes Discharge Plan - Discharge Disposition Patient Disposition: [facility] Hospice/Med Facility - Discharge Condition Condition: Stable - Discharge Order Discharge Orders: Discharge Order (Routine); Ordered 01/23/18 Ordered By: Popeye Arevalo - Discharge Details Anticipated Discharge Date: 01/23/18 Discharge Comment: to hospice - Physicians Team Primary Care Provider: [facility] Attending Provider: Wilder Humphrey Other Providers: Ravi Perry MD ; Velasquez Hill MD ; Stephanie Garrison MD ; Pushpa Morales MD ; Florence Tse MD ; Aleksandar Mcintosh MD ; Wilder Humphrey MD ; Geronimo Barnett DO - Rxs /Orders / Referrals /Forms Prescriptions: New fentanyl citrate (PF)-0.9%NaCl 10 mcg/mL Solution 2,500 mcg IV TITRATE PRN (Reason: Per Protocol) RF: 0 hyoscyamine sulfate 0.125 mg Tablet 0.25 mg PO Q6HR RF: 0 lorazepam 0.5 mg Tablet 0.5 mg G-Tube Q6H PRN (Reason: Anxiety) RF: 0 midazolam in 0.9 % sod chlorid 1 mg/mL Solution 50 mg IV.CONT TITRATE PRN (Reason: Per Protocol) RF: 0 morphine 4 mg/mL Cartridge 2 mg IV.PUSH Q2H PRN (Reason: Breakthrough Pain) RF: 0 morphine concentrate 100 mg/5 mL (20 mg/mL) Solution 4 mg G-Tube Q6H RF: 0 ondansetron 4 mg Tablet,Disintegrating 4 mg PO Q6H PRN (Reason: Nausea Or Vomiting) RF: 0 oxycodone 10 mg Tablet 10 mg PO Q4H PRN (Reason: Pain Scale 3 to 5) RF: 0 promethazine 25 mg/mL Solution 25 mg IM ONCE PRN (Reason: breakthrough nausea) RF: 0 scopolamine base [Transderm-Scop] 1 mg over 3 days Patch 3 Day 1 patch Transdermal Q72H RF: 0 Discontinued albuterol sulfate 1 amp NEB Q4HR aspirin 81 mg CHEW DAILY Flagyl 500 mg PO Q8HR glipizide 10 mg PO DAILY Levaquin 500 mg PO DAILY lisinopril 5 mg PO DAILY omeprazole 10 mg PO DAILY oxycodone 5 mg PO Q4HR PRN (Reason: Pain) pravastatin 40 mg PO HS prednisone 5 mg PO DAILY Symbicort 2 puff Inhalation Q12HR Ventolin HFA 2 inhalation Q4-6H (DME) nebulizers Referrals: [facility] [Primary Care Provider] - See Instructions
[2018-01-23 15:03] VITALS: TEMP 97.5
[2018-01-23 15:04] VITALS: BP 112/72; PULSE 94; RESP 15
== END 2018-01-23 15:20 | disposition hospice, inpatient (51) ==
LOC: HIMC 12-18 02:24
PROVIDERS: ADMIT Internal Medicine Critical Care Medicine; ATTEND Internal Medicine Critical Care Medicine